=== PATIENT | female | born 1965 | race Caucasian/White ===

== ENCOUNTER 2018-01-29 19:29 | Observation (INO) | payer MEDICARE, MEDICAID ==
[~2018-01-29] VITALS: Ht 175.3 cm; Wt 83.5 kg
[2018-01-29] VITALS (7 sets, daily range): BP systolic 128–188; BP diastolic 74–117
[~2018-01-29 19:29] MED LIST: AMLO5TAB2 PO; ASP81TEC PO; CLON0.5T60 PO; CYAN100053 IJ; ESTR0.9T PO; FLUO40CA PO; HCT25T PO; IBP800T PO; IPRA4AER IH; LISI10TA PO; LISI20TA PO; LISI5TAB PO; MORP100T8 PO; MORP30CA16 PO; OMEP-10 PO; OXYC-12 PO; POTA10TA36 PO; TIZA2CAP7 PO; TIZA4CAP PO
--- OUTSIDE RECORDS SUMMARY | 2018-01-29 19:34 | XMS REPORT ---
Author Author ASHVIN ROBERTS eClinicalWorks Address Unknown Phone Unavailable Care Team Providers Care Market Relationship Manager Name Role Phone ASHVIN ROBERTS CP Unavailable Allergies No Known Allergies Problems Problem Type Condition Code Onset Dates Condition Status Problem Primary insomnia F51.01 Active Problem Chronic pain syndrome G89.4 Active Problem Anxiety F41.9 Active Problem Chronic prescription opiate use Z79.899 Active Problem Chronic prescription benzodiazepine use Z79.899 Active Problem Bilateral low back pain, with sciatica presence unspecified M54.5 Active Problem Major depressive disorder, recurrent episode, unspecified severity F33.9 Active Problem Atherosclerosis of [place] coronary artery of [place] heart without angina pectoris I25.10 Active Problem B12 deficiency E53.8 Active Problem Allergic rhinitis J30.9 Active Problem Other constipation K59.09 Active Problem Hyperlipidemia, unspecified hyperlipidemia E78.5 Active Problem Essential hypertension I10 Active Medications No Known Medications Vital Signs Date/Time: Jan 07, 2016 Blood Pressure Diastolic 78 mmHg Blood Pressure Systolic 122 mmHg Height 69 in Results No Known Results Summary Purpose eClinicalWorks Submission
--- OUTSIDE RECORDS SUMMARY | 2018-01-29 19:34 | XMS REPORT ---
Author Author ASHVIN ROBERTS eClinicalWorks Address Unknown Phone Unavailable Care Team Providers Care Manager Paid Name Role Phone ASHVIN ROBERTS CP Unavailable [...] unspecified severity F33.9 Active Problem Atherosclerosis of [place] coronary artery of [place] heart without angina pectoris I25.10 Active Problem B12 deficiency E53.8 Active Problem Allergic rhinitis J30.9 Active Assessment Essential hypertension I10 Active Problem Other constipation K59.09 Active Problem Hyperlipidemia, unspecified hyperlipidemia E78.5 Active Assessment B12 deficiency E53.8 Active Problem Essential hypertension I10 Active Medications No Known Medications Results No Known Results Summary Purpose eClinicalWorks Submission
--- OUTSIDE RECORDS SUMMARY | 2018-01-29 19:34 | XMS REPORT ---
Author Author ARMANDO ASHVIN Organization [facility] Address [address] [place] [address] Care Team Providers Care Plumbing Technician Name Role Phone ASHVIN ROBERTS Unavailable PROBLEMS Type Condition ICD9-CM Code [id number] Code Onset Dates Condition Status SNOMED Code Problem Major depressive disorder, recurrent episode, unspecified severity F33.9 Active 03927122 Problem B12 deficiency E53.8 Active 359318285 Problem Allergic rhinitis J30.9 Active 61597832 Problem Fibromyalgia M79.7 Active 05686305 Problem GERD (gastroesophageal reflux disease) K21.9 Active 928352214 Problem Chronic prescription opiate use Z79.899 Active 625527437 Problem Chronic prescription benzodiazepine use Z79.899 Active 384727537 Problem Chronic obstructive pulmonary disease, unspecified COPD type J44.9 Active 16275202 Problem Bilateral low back pain, with sciatica presence unspecified M54.5 Active 882014189 Problem Other constipation K59.09 Active 586841832023994 Problem Primary insomnia F51.01 Active 884581181 Problem Anxiety F41.9 Active 15238701 Problem Hyperlipidemia, unspecified hyperlipidemia E78.5 Active 98156513 Problem Chronic pain syndrome G89.4 Active 042123134 Problem Essential hypertension I10 Active 54327759 Problem Atherosclerosis of [place] coronary artery of [place] heart without angina pectoris I25.10 Active 3937741999946 ALLERGIES Unknown Allergies SOCIAL HISTORY No smoking Hx information available PLAN OF CARE VITAL SIGNS MEDICATIONS Medication Instructions Dosage Frequency Start Date End Date Duration Status Ibuprofen 400 MG Orally Three times a day 1 tablet as needed 8h Jul, 30 days Active RESULTS No Results PROCEDURES No Known procedures IMMUNIZATIONS No Known Immunizations
--- OUTSIDE RECORDS SUMMARY | 2018-01-29 19:34 | XMS REPORT ---
Author Author JAG BUCHANAN Organization [facility] Address [address] [place] [address] Care Team Providers Care Cream Dipper Name Role Phone JAG BUCHANAN Unavailable PROBLEMS Type Condition ICD9-CM Code [id number] Code Onset Dates Condition Status SNOMED Code Problem Bilateral low back pain, with sciatica presence unspecified M54.5 Active 005179136 Problem Allergic rhinitis J30.9 Active 51066171 Problem B12 deficiency E53.8 Active 919459948 Problem CKD (chronic kidney disease) stage 3, GFR 30-59 ml/min N18.3 Active 828761908 Problem Drug induced constipation K59.03 Active 534950027454477 Problem Fibromyalgia M79.7 Active 57749374 Problem GERD (gastroesophageal reflux disease) K21.9 Active 995139244 Problem Thrombocytosis D47.3 Active 2368013 Problem Chronic obstructive pulmonary disease, unspecified COPD type J44.9 Active 05111763 Problem Primary insomnia F51.01 Active 124680758 Problem Anxiety F41.9 Active 22366362 Problem Other constipation K59.09 Active 958886674129502 Problem Chronic pain syndrome G89.4 Active 674845687 Problem Major depressive disorder, recurrent episode, unspecified severity F33.9 Active 72524497 Problem Hyperlipidemia, unspecified hyperlipidemia E78.5 Active 53881262 Problem Essential hypertension I10 Active 66910496 Problem Chronic prescription benzodiazepine use Z79.899 Active 038587069 Problem Atherosclerosis of [place] coronary artery of [place] heart without angina pectoris I25.10 Active 8813109855099 Problem Chronic prescription opiate use Z79.899 Active 184659261 ALLERGIES No Information SOCIAL HISTORY Never Assessed PLAN OF CARE VITAL SIGNS MEDICATIONS Medication Instructions Dosage Frequency Start Date End Date Duration Status MS Contin 15 MG Orally every 12 hrs 1 tablet 12h Oct, 28 days Active MS Contin 30 MG Orally every 12 hrs 1 tablet 12h Oct, 28 days Active Clonazepam 0.5 MG Orally Once a day 1 tablet as needed for anxiety 24h Feb, 28 days Active Clonazepam 1 MG Orally Once a day at HS 1 tablet Sep, Active Oxycodone HCl 10 mg Orally every 6 hrs 1 tablet as needed 6h Jul, 28 days Active RESULTS No Results PROCEDURES No Known procedures IMMUNIZATIONS No Known Immunizations MEDICAL (GENERAL) HISTORY Type Description Date Medical History hypertension Medical History asthma Medical History Arthritis Medical History Hypoglycemia Medical History Heart Cath 11/05/2013 Medical History herniated disc--Seen by Dr. Troy Michelle pain specialist in [place], [place] Medical History Chronic low back pain Medical History depression Medical History anxiety Medical History Panic attacks Medical History Vitamin B 12 deficiency r/t gastric bypass Medical History Low back injections 11/2012, 06/2013 Surgical History tonsillectomy Surgical History gastric bypass--2003-in [place]. Unsure of Dr's name. No longer in practice. Band removed 2008 Surgical History hysterectomy-Total r/t fibroid tumors 2000 Surgical History orthopedic surgery--left lower leg fx, 3 screws placed s/p fall from skating 1980 Surgical History spinal fusion--L4-L5 07/2014 Surgical History carpal tunnel release--bilateral Surgical History Left wrist laceration from broken bowl 1975 Hospitalization History [facility] for chest pain 2000
--- OUTSIDE RECORDS SUMMARY | 2018-01-29 19:34 | XMS REPORT ---
Author Author ARMANDO ASHVIN Organization [facility] Address [address] [place] [address] Care Team Providers Care Machine Zipper Trimmer Name Role Phone ASHVIN ROBERTS Unavailable PROBLEMS Type Condition ICD9-CM Code [id number] Code Onset Dates Condition Status SNOMED Code Problem Bilateral low back pain, with sciatica presence unspecified M54.5 Active 128345060 Problem Allergic rhinitis J30.9 Active 74464320 Problem B12 deficiency E53.8 Active 383305172 Problem CKD (chronic kidney disease) stage 3, GFR 30-59 ml/min N18.3 Active 398462305 Problem Drug induced constipation K59.03 Active 568683598247123 Problem Fibromyalgia M79.7 Active 56057142 Problem GERD (gastroesophageal reflux disease) K21.9 Active 872131605 Problem Thrombocytosis D47.3 Active 3687454 Problem Chronic obstructive pulmonary disease, unspecified COPD type J44.9 Active 13853406 Problem Primary insomnia F51.01 Active 446790741 Problem Anxiety F41.9 Active 37259688 Problem Other constipation K59.09 Active 736622189335950 Problem Chronic pain syndrome G89.4 Active 001851007 Problem Major depressive disorder, recurrent episode, unspecified severity F33.9 Active 44990728 Problem Hyperlipidemia, unspecified hyperlipidemia E78.5 Active 20563633 Problem Essential hypertension I10 Active 21783811 Problem Chronic prescription benzodiazepine use Z79.899 Active 241256386 Problem Atherosclerosis of [place] coronary artery of [place] heart without angina pectoris I25.10 Active 3426527043259 Problem Chronic prescription opiate use Z79.899 Active 776304301 ALLERGIES Unknown Allergies SOCIAL HISTORY No smoking Hx information available PLAN OF CARE VITAL SIGNS MEDICATIONS Unknown Medications RESULTS No Results PROCEDURES No Known procedures IMMUNIZATIONS No Known Immunizations
--- OUTSIDE RECORDS SUMMARY | 2018-01-29 19:34 | XMS REPORT ---
Author Author ASHVIN ROBERTS [facility] eClinicalWorks Address Unknown Phone Unavailable Care Team Providers Care Special Police Officer Name Role Phone ASHVIN ROBERTS CP Unavailable Allergies No Known Allergies Problems Problem Type Condition Code Onset Dates Condition Status Problem Atherosclerosis of [place] coronary artery of [place] heart without angina pectoris I25.10 Active Problem Allergic rhinitis J30.9 Active Problem Major depressive disorder, recurrent episode, unspecified severity F33.9 Active Problem GERD (gastroesophageal reflux disease) K21.9 Active Problem Chronic obstructive pulmonary disease, unspecified COPD type J44.9 Active Problem Fibromyalgia M79.7 Active Problem Chronic prescription benzodiazepine use Z79.899 Active Problem B12 deficiency E53.8 Active Problem Bilateral low back pain, with sciatica presence unspecified M54.5 Active Problem Chronic prescription opiate use Z79.899 Active Assessment Open wound of right ear, unspecified open wound type, initial encounter S01.301A Active Problem Essential hypertension I10 Active Problem Primary insomnia F51.01 Active Problem Other constipation K59.09 Active Problem Anxiety F41.9 Active Problem Hyperlipidemia, unspecified hyperlipidemia E78.5 Active Problem Chronic pain syndrome G89.4 Active Medications No Known Medications Results No Known Results Summary Purpose eClinicalWorks Submission
--- OUTSIDE RECORDS SUMMARY | 2018-01-29 19:34 | XMS REPORT ---
Author Author ARMANDO ASHVIN Organization [facility] Address [address] [place] [address] Care Team Providers Care Brush Holder Inspector Name Role Phone ASHVIN ROBERTS Unavailable PROBLEMS Type Condition ICD9-CM Code [id number] Code Onset Dates Condition Status SNOMED Code Problem Bilateral low back pain, with sciatica presence unspecified M54.5 Active 436277252 Problem Allergic rhinitis J30.9 Active 01339645 Problem B12 deficiency E53.8 Active 261265969 Problem CKD (chronic kidney disease) stage 3, GFR 30-59 ml/min N18.3 Active 617182226 Problem Drug induced constipation K59.03 Active 179578641113396 Problem Fibromyalgia M79.7 Active 14124215 Problem GERD (gastroesophageal reflux disease) K21.9 Active 930913337 Problem Thrombocytosis D47.3 Active 6993419 Problem Chronic obstructive pulmonary disease, unspecified COPD type J44.9 Active 20917526 Problem Primary insomnia F51.01 Active 932114129 Problem Anxiety F41.9 Active 30800333 Problem Other constipation K59.09 Active 314551626977989 Problem Chronic pain syndrome G89.4 Active 257198508 Problem Major depressive disorder, recurrent episode, unspecified severity F33.9 Active 89882517 Problem Hyperlipidemia, unspecified hyperlipidemia E78.5 Active 30516598 Problem Essential hypertension I10 Active 37655661 Problem Chronic prescription benzodiazepine use Z79.899 Active 069700841 Problem Atherosclerosis of [place] coronary artery of [place] heart without angina pectoris I25.10 Active 6513009285229 Problem Chronic prescription opiate use Z79.899 Active 711732758 ALLERGIES Substance Reaction Event Type Date Status Lyrica throat swelling Drug Allergy Jan, Active Flagyl throat swelling Drug Allergy Jan, Active Lisinopril 20 Mg Tablet Headache Non Drug Allergy Jan, Active SOCIAL HISTORY Never Assessed PLAN OF CARE Activity Details Follow Up 3 Months Reason:Pain VITAL SIGNS Height 69 in 2017-02-02 Weight 192.1 lbs 2017-02-02 Temperature 97.7 degrees Fahrenheit 2017-02-02 Heart Rate 66 bpm 2017-02-02 Respiratory Rate 18 2017-02-02 BMI 28.37 kg/m2 2017-02-02 Blood pressure systolic 127 mmHg 2017-02-02 Blood pressure diastolic 84 mmHg 2017-02-02 MEDICATIONS Medication Instructions Dosage Frequency Start Date End Date Duration Status Multivitamin 1 Tablet 1 time per day Aug, Active Lisinopril-Hydrochlorothiazide 20-25 MG Orally Once a day 1 tablet 24h 90 days Active Amitriptyline HCl 25 MG Orally Once a day 1 tablet at bedtime 24h 90 days Active Clonazepam 0.5 MG Orally Once a day 1 tablet as needed for anxiety 24h Feb, 28 days Active Aspirin 81 mg take 1 tablet (81 mg) by oral route once daily Nov, Active Cyanocobalamin 1000 MCG/ML INJECT 1 ML SUBCUTANEOUSLY Active MS Contin 30 MG Orally every 12 hrs 1 tablet 12h Jan, 28 days Active Prozac 10 mg Orally Once a day 1 capsule in the morning 24h 90 days Active Omeprazole 20 mg Orally Once a day 1 capsule 24h 30 Active Clonazepam 1 MG Orally Once a day at HS 1 tablet Sep, Active MS Contin 15 MG Orally every 12 hrs 1 tablet 12h Jan, 28 days Active Nitroglycerin 0.4 mg 1 tablet by Sublingual route every 5 PRN chest pain ; NTE 3 tabs in 15 min Jun, Active Claritin 10 mg Orally Once a day 1 tablet 24h Feb, Feb, 30 day(s) Active Singulair 10 mg Orally Once a day 1 tablet in the evening 24h May, 90 days Active Oxycodone HCl 10 mg Orally every 6 hrs 1 tablet as needed 6h 10 Jan, 2017 28 days Active RESULTS Name Result Date Reference Range Xray : Spine, Thoracic 2 views (IN HOUSE) 2017-02-02 Xray : Spine, Cervical (IN HOUSE) 2017-02-02 PROCEDURES Procedure Date Ordered Result Body Site JOINT INJECTION-LARGE JOINT 2017-02-02 N/A X-RAY EXAM OF NECK SPINE February 02, 2017 THER/PROPH/DIAG INJ, SC/IM February 02, 2017 KENALOG 40 MG/ML (PER 10 MG) February 02, 2017 DRAIN/INJECT, JOINT/BURSA February 02, 2017 X-RAY EXAM OF THORACIC SPINE February 02, 2017 [facility] VISIT ESTABLISHED PATIENT February 02, 2017 IMMUNIZATIONS Vaccine Route Administration Date Status KENALOG 40 MG/ML (PER 10 MG) OTH Other/Miscellaneous February 02, 2017 Administered MEDICAL (GENERAL) HISTORY Type Description Date Medical History hypertension Medical History asthma Medical History Arthritis Medical History Hypoglycemia Medical History Heart Cath 11/05/2013 Medical History herniated disc--Seen by Dr. Troy Michelle pain specialist in [place], [place] Medical History Chronic low back pain Medical History depression Medical History anxiety Medical History Panic attacks Medical History Vitamin B 12 deficiency r/t gastric bypass Medical History Low back injections 11/2012, 06/2013 Surgical History tonsillectomy Surgical History gastric bypass--2003-in [place]. Unsure of Dr's name. No longer in [...]
--- OUTSIDE RECORDS SUMMARY | 2018-01-29 19:35 | XMS REPORT ---
Author Author ASHVIN ROBERTS eClinicalWorks Address Unknown Phone Unavailable Care Team Providers Care Benefits Specialist Name Role Phone ASHVIN ROBERTS CP Unavailable [...] unspecified severity F33.9 Active Problem Atherosclerosis of [place] coronary artery of [place] heart without angina pectoris I25.10 Active Problem B12 deficiency E53.8 Active Problem Allergic rhinitis J30.9 Active Problem Other constipation K59.09 Active Problem Hyperlipidemia, unspecified hyperlipidemia E78.5 Active Problem Essential hypertension I10 Active Medications Medication Code System Code Instructions Start Date End Date Status Dosage Clonazepam [facility] [address]-58 1 MG Orally Oct 20, 2014 take 1 tablet by Oral route 1 time per day PRN Anxiety MS Contin [facility] [address]-00 15 MG Orally Once a day in the morning with 30 mg tab Dec 09, 2015 1 tablet Percocet [facility] [address]-07 10-325 MG February 09, 2015 take 1 tablet by Oral route as needed every 4 hours PRN MS Contin [facility] [address]-93 30 MG Orally every 12 hrs Dec 09, 2015 1 tablet Results No Known Results Summary Purpose eClinicalWorks Submission
--- OUTSIDE RECORDS SUMMARY | 2018-01-29 19:35 | XMS REPORT ---
Author Author ASHVIN ROBERTS eClinicalWorks Address Unknown Phone Unavailable Care Team Providers Care Caddie Name Role Phone ASHVIN ROBERTS CP Unavailable Allergies, Adverse Reactions, Alerts Substance Reaction Event Type Lyrica throat swelling Drug Allergy Flagyl throat swelling Drug Allergy Lisinopril 20 Mg Tablet Headache Non Drug Allergy Problems Problem Type Condition Code Onset Dates Condition Status Assessment Hyperlipidemia, unspecified hyperlipidemia E78.5 Active Problem Other constipation K59.09 Active Assessment Other constipation K59.09 Active Problem Atherosclerosis of [place] coronary artery of [place] heart without angina pectoris I25.10 Active Problem Chronic pain syndrome G89.4 Active Problem Major depressive disorder, recurrent episode, unspecified severity F33.9 Active Problem Essential hypertension I10 Active Problem Hyperlipidemia, unspecified hyperlipidemia E78.5 Active Problem Anxiety F41.9 Active Problem Primary insomnia F51.01 Active Assessment Chronic pain syndrome G89.4 Active Assessment Anxiety F41.9 Active Assessment Acute cystitis without hematuria N30.00 Active Assessment Primary insomnia F51.01 Active Assessment Right shoulder pain M25.511 Active Assessment Essential hypertension I10 Active Medications Medication Code System Code Instructions Start Date End Date Status Dosage Lisinopril-Hydrochlorothiazide [facility] [address]-56 20-25 MG Once a day Dec 11, 2014 take 1 tablet by Oral route 1 time per day Take in AM Omeprazole [facility] [address]-39 20 MG Orally 2 times a day before meals June 21, 2015 1 capsule Macrobid [facility] [address]-33 100 MG Orally every 12 hrs Sep 10, 2015Aug 1 capsule with food Combivent Respimat [facility] 16351929716 20-100 MCG/ACT 1 PUFF BY INHALATION, MAY TAKE ADDITIONAL PUFFS NEEDED FOUR TIMES PER DAY Cyanocobalamin [facility] [address]-83 1000 MCG/ML Injection one x per month May 07, 2015 1 ml Percocet [facility] [address]-98 10-325 MG February 09, 2015 take 1 tablet by Oral route as needed every 4 hours PRN Multivitamin [facility] [address]88 Sep 23, 2013 1 Tablet 1 time per day Aspirin [facility] [address]-06 81 mg Nov 28, 2013 take 1 tablet (81 mg ) by oral route once daily Amitiza [facility] [address]-53 8 MCG Orally Twice a day Sep 10, 2015 Jan 08, 2016 2 capsules with food HM Senna-S [facility] [address]-15 8.6-50 MG Orally 2 times a day June 15, 2015 1 tablet Ipratropium-Albuterol [facility] [address]-38 20-100 mcg/actuation Jul 06, 2014 inhale 1 puff by Inhalation route ; may take additional puffs as needed 4 times per day Nitroglycerin [facility] [address]-19 0.4 mg 2014 1 tablet by Sublingual route every 5 PRN chest pain; NTE 3 tabs in 15 min Clonazepam [facility] [address]-10 1 MG Orally Oct 20, 2014 take 1 tablet by Oral route 1 time per day PRN Anxiety Amlodipine Besylate [facility] [address]-63 5 MG Orally 2 times a day May 07, 2015 1 tablet morphine [facility] 0 30 mg February 09, 2015 take 1 tablet (30 mg) by oral route every 12 hours Procedures Procedure Coding System Code Date Office Visit, Est Pt., Level 4 CPT-4 10719 Sep 10, 2015 URINALYSIS, AUTO, W/O SCOPE CPT-4 78104 Sep 10, 2015 [facility] VISIT ESTABLISHED PATIENT CPT-4 G0467 Sep 10, 2015 [facility] NOBLL Sep 10, 2015 Vital Signs Date/Time: Sep 10, 2015 Temperature 98.0 F Weight 247.7 lbs Height 69 in BMI 36.57 Index Blood Pressure Diastolic 82 mmHg Blood Pressure Systolic 146 mmHg Cardiac Monitoring Heart Rate 78 bpm Results No Known Results Summary Purpose eClinicalWorks Submission
--- OUTSIDE RECORDS SUMMARY | 2018-01-29 19:35 | XMS REPORT ---
Author Author ARMANDO ASHVIN Organization [facility] Address [address] [place] [address] Care Team Providers Care Hydropress Operator Name Role Phone ASHVIN ROBERTS Unavailable PROBLEMS Type Condition ICD9-CM Code HIH02-KG Code Onset Dates Condition Status SNOMED Code Problem Bilateral low back pain, with sciatica presence unspecified M54.5 Active 136550321 Problem Allergic rhinitis J30.9 Active 60831238 Problem B12 deficiency E53.8 Active 501022518 Problem CKD (chronic kidney disease) stage 3, GFR 30-59 ml/min N18.3 Active 452096508 Problem Drug induced constipation K59.03 Active 932630836634206 Problem Fibromyalgia M79.7 Active 11814376 Problem GERD (gastroesophageal reflux disease) K21.9 Active 988471714 Problem Thrombocytosis D47.3 Active 6358934 Problem Chronic obstructive pulmonary disease, unspecified COPD type J44.9 Active 94621982 Problem Primary insomnia F51.01 Active 253240723 Problem Anxiety F41.9 Active 39313920 Problem Other constipation K59.09 Active 862627077108602 Problem Chronic pain syndrome G89.4 Active 956673372 Problem Major depressive disorder, recurrent episode, unspecified severity F33.9 Active 79647033 Problem Hyperlipidemia, unspecified hyperlipidemia E78.5 Active 80727282 Problem Essential hypertension I10 Active 74706488 Problem Chronic prescription benzodiazepine use Z79.899 Active 008135276 Problem Atherosclerosis of [place] coronary artery of [place] heart without angina pectoris I25.10 Active 1796368838223 Problem Chronic prescription opiate use Z79.899 Active 114484885 ALLERGIES No Information SOCIAL HISTORY Never Assessed PLAN OF CARE VITAL SIGNS MEDICATIONS Medication Instructions Dosage Frequency Start Date End Date Duration Status Clonazepam 1 MG Orally Once a day at HS 1 tablet Sep, Active MS Contin 15 MG Orally every 12 hrs 1 tablet 12h 10 Jan, 2017 28 days Active Clonazepam 0.5 MG Orally Once a day 1 tablet as needed for anxiety 24h Feb, 28 days Active MS Contin 30 MG Orally every 12 hrs 1 tablet 12h 10 Jan, 2017 28 days Active Oxycodone HCl 10 mg Orally every 6 hrs 1 tablet as needed 6h Jan, 28 days Active RESULTS No Results PROCEDURES No Known procedures IMMUNIZATIONS No Known Immunizations MEDICAL (GENERAL) HISTORY Type Description Date Medical History hypertension Medical History asthma Medical History Arthritis Medical History Hypoglycemia Medical History Heart Cath 11/05/2013 Medical History herniated disc--Seen by Dr. Troy Michelle pain specialist in [place], [place] Medical History Chronic low back pain Medical History depression Medical History anxiety Medical History Panic attacks Medical History Vitamin B 12 deficiency r/t gastric bypass Medical History Low back injections 11/2012, 06/2013 Surgical History tonsillectomy Surgical History gastric bypass--2003-in [place]. Unsure of Dr's name. No longer in [...]
--- OUTSIDE RECORDS SUMMARY | 2018-01-29 19:35 | XMS REPORT ---
Author Author ASHVIN ROBERTS [facility] eClinicalWorks Address Unknown Phone Unavailable Care Team Providers Care Drafter Civil (Cad) Name Role Phone ASHVIN ROBERTS CP Unavailable Allergies No Known Allergies Problems Problem Type Condition Code Onset Dates Condition Status Problem Atherosclerosis of [place] coronary artery of [place] heart without angina pectoris I25.10 Active Problem [...] Chronic prescription opiate use Z79.899 Active Problem Essential hypertension I10 Active Problem Primary insomnia F51.01 Active Problem Other constipation K59.09 Active Problem Anxiety F41.9 Active Problem Hyperlipidemia, unspecified hyperlipidemia E78.5 Active Problem Chronic pain syndrome G89.4 Active Medications Medication Code System Code Instructions Start Date End Date Status Dosage Percocet [facility] [address]-39 10-325 MG February 09, 2015 take 1 tablet by Oral route as needed every 4 hours PRN Clonazepam [facility] [address]-18 0.5 MG Orally Once a day March 21, 2016 1 tablet as needed for anxiety MS Contin [facility] [address]-28 30 MG Orally every 12 hrs Dec 09, 2015 1 tablet MS Contin [facility] [address]-78 15 MG Orally Once a day in the morning with 30 mg tab Dec 09, 2015 1 tablet Clonazepam [facility] [address]-03 1 MG Orally Once a day at HS Oct 20, 2014 1 tablet Results No Known Results Summary Purpose eClinicalWorks Submission
--- OUTSIDE RECORDS SUMMARY | 2018-01-29 19:35 | XMS REPORT ---
Author Author ASHVIN ROBERTS [employer]ClinicalWorks Address Unknown Phone Unavailable Care Team Providers Care Testing Specialist Name Role Phone ASHVIN ROBERTS CP Unavailable Allergies No Known Allergies Problems Problem Type Condition Code Onset Dates Condition Status Problem Atherosclerosis of [place] coronary artery of [place] heart without angina pectoris I25.10 Active Problem [...] Chronic prescription opiate use Z79.899 Active Assessment B12 deficiency E53.8 Active Problem Essential hypertension I10 Active Problem Primary insomnia F51.01 Active Problem Other constipation K59.09 Active Problem Anxiety F41.9 Active Problem Hyperlipidemia, unspecified hyperlipidemia E78.5 Active Problem Chronic pain syndrome G89.4 Active Medications No Known Medications Procedures Procedure Coding System Code Date VENIPUNCT, ROUTINE* CPT-4 00226 June 23, 2016 LAB NOT BILLED BY [facility] CPT-4 NOBLL June 23, 2016 Results No Known Results Summary Purpose eClinicalWorks Submission
--- OUTSIDE RECORDS SUMMARY | 2018-01-29 19:35 | XMS REPORT ---
Author Author ARMANDO ASHVIN Organization [facility] Address [address] [place] [address] Care Team Providers Care Laborer Drying Department Name Role Phone ASHVIN ROBERTS Unavailable PROBLEMS Type Condition ICD9-CM Code [id number] Code Onset Dates Condition Status SNOMED Code Problem Bilateral low back pain, with sciatica presence unspecified M54.5 Active 819218192 Problem Allergic rhinitis J30.9 Active 17737055 Problem B12 deficiency E53.8 Active 550481144 Problem CKD (chronic kidney disease) stage 3, GFR 30-59 ml/min N18.3 Active 049261146 Problem Drug induced constipation K59.03 Active 476251718209753 Problem Fibromyalgia M79.7 Active 82106091 Problem GERD (gastroesophageal reflux disease) K21.9 Active 886397186 Problem Thrombocytosis D47.3 Active 3049421 Problem Chronic obstructive pulmonary disease, unspecified COPD type J44.9 Active 91546220 Problem Primary insomnia F51.01 Active 513332085 Problem Anxiety F41.9 Active 83099614 Problem Other constipation K59.09 Active 376443636504220 Problem Chronic pain syndrome G89.4 Active 186055511 Problem Major depressive disorder, recurrent episode, unspecified severity F33.9 Active 96692699 Problem Hyperlipidemia, unspecified hyperlipidemia E78.5 Active 77734687 Problem Essential hypertension I10 Active 05026875 Problem Chronic prescription benzodiazepine use Z79.899 Active 472490168 Problem Atherosclerosis of [place] coronary artery of [place] heart without angina pectoris I25.10 Active 8949930322120 Problem Chronic prescription opiate use Z79.899 Active 585375149 ALLERGIES No Information SOCIAL HISTORY Never Assessed PLAN OF CARE VITAL SIGNS MEDICATIONS Unknown Medications RESULTS Name Result Date Reference Range [facility] 2017-01-16 Glucose, Serum 93 65-99 BUN 19 6-24 Creatinine, Serum 1.38 0.57-1.00 eGFR If NonAfricn Am 45 >59 eGFR If Africn Am 51 >59 BUN/Creatinine Ratio 14 9-23 Sodium, Serum 148 134-144 Potassium, Serum 4.2 3.5-5.2 Chloride, Serum 104 96-106 Carbon Dioxide, Total 30 18-29 Calcium, Serum 9.5 8.7-10.2 PROCEDURES Procedure Date Ordered Result Body Site LAB NOT BILLED BY [facility] Jan 16, 2017 VENIPUNCT, ROUTINE* Jan 16, 2017 IMMUNIZATIONS No Known Immunizations MEDICAL (GENERAL) HISTORY Type Description Date Medical History hypertension Medical History asthma Medical History Arthritis Medical History Hypoglycemia Medical History Heart Cath 11/05/2013 Medical History herniated disc--Seen by Dr. Troy Michelle pain specialist in [place], [place] Medical History Chronic low back pain Medical History depression Medical History anxiety Medical History Panic attacks Medical History Vitamin B 12 deficiency r/t gastric bypass Medical History Low back injections 11/2012, 06/2013 Surgical History tonsillectomy Surgical History gastric bypass--2003-in [place]. Unsure of Dr's name. No longer in [...]
--- OUTSIDE RECORDS SUMMARY | 2018-01-29 19:35 | XMS REPORT ---
Author Author ASHVIN ROBERTS [facility] eClinicalWorks Address Unknown Phone Unavailable Care Team Providers Care School Principal Name Role Phone ASHVIN ROBERTS CP Unavailable Allergies No Known Allergies Problems Problem Type Condition Code Onset Dates Condition Status Problem Other constipation K59.09 Active Problem Atherosclerosis of [place] coronary artery of [place] heart without angina pectoris I25.10 Active Problem Chronic pain syndrome G89.4 Active Problem Major depressive disorder, recurrent episode, unspecified severity F33.9 Active Problem Essential hypertension I10 Active Problem Hyperlipidemia, unspecified hyperlipidemia E78.5 Active Problem Anxiety F41.9 Active Problem Primary insomnia F51.01 Active Medications Medication Code System Code Instructions Start Date End Date Status Dosage Omeprazole [facility] [address]-05 20 MG Orally 2 times a day before meals June 21, 2015 1 capsule Results No Known Results Summary Purpose eClinicalWorks Submission
--- OUTSIDE RECORDS SUMMARY | 2018-01-29 19:35 | XMS REPORT ---
Author Author ASHVIN ROBERTS [employer]ClinicalWorks Address Unknown Phone Unavailable Care Team Providers Care Volleyball Referee Name Role Phone ASHVIN ROBERTS CP Unavailable Allergies No Known Allergies Problems Problem Type Condition Code Onset Dates Condition Status Problem Atherosclerosis of [place] coronary artery of [place] heart without angina pectoris I25.10 Active Problem [...] Instructions Start Date End Date Status Dosage MS Contin [facility] [address]-52 15 MG Orally every 12 hrs Dec 09, 2015 1 tablet MS Contin [facility] [address]-71 30 MG Orally every 12 hrs Dec 09, 2015 1 tablet Oxycodone HCl [facility] [address]-04 10 mg Orally every 6 hrs Aug 18, 2016 1 tablet as needed Clonazepam [facility] [address]-21 0.5 MG Orally Once a day March 21, 2016 1 tablet as needed for anxiety Clonazepam [facility] [address]-71 1 MG Orally Once a day at HS Oct 20, 2014 1 tablet Results No Known Results Summary Purpose eClinicalWorks Submission
--- OUTSIDE RECORDS SUMMARY | 2018-01-29 19:35 | XMS REPORT ---
Author Author ARMANDO ASHVIN Organization [facility] Address [address] [place] [address] Care Team Providers Care Television Agent Name Role Phone NYASIA ROBERTSY Unavailable PROBLEMS Type Condition ICD9-CM Code [id number] Code Onset Dates Condition Status SNOMED Code Problem Bilateral low back pain, with sciatica presence unspecified M54.5 Active 205345345 Problem Allergic rhinitis J30.9 Active 78139967 Problem B12 deficiency E53.8 Active 184242984 Problem CKD (chronic kidney disease) stage 3, GFR 30-59 ml/min N18.3 Active 149525323 Problem Drug induced constipation K59.03 Active 866543665164295 Problem Fibromyalgia M79.7 Active 22906017 Problem GERD (gastroesophageal reflux disease) K21.9 Active 460546893 Problem Thrombocytosis D47.3 Active 3952519 Problem Chronic obstructive pulmonary disease, unspecified COPD type J44.9 Active 15316271 Problem Primary insomnia F51.01 Active 171867442 Problem Anxiety F41.9 Active 46133243 Problem Other constipation K59.09 Active 722438644167155 Problem Chronic pain syndrome G89.4 Active 752934397 Problem Major depressive disorder, recurrent episode, unspecified severity F33.9 Active 43531036 Problem Hyperlipidemia, unspecified hyperlipidemia E78.5 Active 12394019 Problem Essential hypertension I10 Active 95227524 Problem Chronic prescription benzodiazepine use Z79.899 Active 397536917 Problem Atherosclerosis of [place] coronary artery of [place] heart without angina pectoris I25.10 Active 7090963630525 Problem Chronic prescription opiate use Z79.899 Active 125689538 ALLERGIES No Information SOCIAL HISTORY Never Assessed PLAN OF CARE VITAL SIGNS MEDICATIONS Unknown Medications RESULTS No Results PROCEDURES No Known procedures IMMUNIZATIONS No Known Immunizations MEDICAL (GENERAL) HISTORY Type Description Date Medical History hypertension Medical History asthma Medical History Arthritis Medical History Hypoglycemia Medical History Heart Cath 11/05/2013 Medical History herniated disc--Seen by Dr. Troy Michelle pain specialist in [place], [place] Medical History Chronic low back pain Medical History depression Medical History anxiety Medical History Panic attacks Medical History Vitamin B 12 deficiency r/t gastric bypass Medical History Low back injections 11/2012, 06/2013 Surgical History tonsillectomy Surgical History gastric bypass--2003-in [place]. Unsure of Dr's name. No longer in [...]
--- OUTSIDE RECORDS SUMMARY | 2018-01-29 19:36 | XMS REPORT ---
Author Author ARMANDO ASHVIN Organization [facility] Address [address] [place] [address] Care Team Providers Care Rivet Heater Name Role Phone NYASIA ROBERTSY Unavailable PROBLEMS Type Condition ICD9-CM Code [id number] Code Onset Dates Condition Status SNOMED Code Problem Bilateral low back pain, with sciatica presence unspecified M54.5 Active 480764975 Problem Allergic rhinitis J30.9 Active 13539322 Problem B12 deficiency E53.8 Active 572323538 Problem CKD (chronic kidney disease) stage 3, GFR 30-59 ml/min N18.3 Active 888831358 Problem Drug induced constipation K59.03 Active 337041582388645 Problem Fibromyalgia M79.7 Active 31274138 Problem GERD (gastroesophageal reflux disease) K21.9 Active 867039192 Problem Thrombocytosis D47.3 Active 5185777 Problem Chronic obstructive pulmonary disease, unspecified COPD type J44.9 Active 75347778 Problem Primary insomnia F51.01 Active 556688461 Problem Anxiety F41.9 Active 22618661 Problem Other constipation K59.09 Active 425608146928302 Problem Chronic pain syndrome G89.4 Active 231377137 Problem Major depressive disorder, recurrent episode, unspecified severity F33.9 Active 51627652 Problem Hyperlipidemia, unspecified hyperlipidemia E78.5 Active 59081699 Problem Essential hypertension I10 Active 08854115 Problem Chronic prescription benzodiazepine use Z79.899 Active 444072471 Problem Atherosclerosis of [place] coronary artery of [place] heart without angina pectoris I25.10 Active 7191776720196 Problem Chronic prescription opiate use Z79.899 Active 483058054 ALLERGIES No Information SOCIAL HISTORY Never Assessed PLAN OF CARE VITAL SIGNS MEDICATIONS No Known Medications RESULTS No Results PROCEDURES No Known procedures IMMUNIZATIONS No Known Immunizations MEDICAL (GENERAL) HISTORY Type Description Date Medical History hypertension Medical History asthma Medical History Arthritis Medical History Hypoglycemia Medical History Heart Cath 11/05/2013 Medical History herniated disc--Seen by Dr. Troy Michelle pain specialist in [place], [place] Medical History Chronic low back pain Medical History depression Medical History anxiety Medical History Panic attacks Medical History Vitamin B 12 deficiency r/t gastric bypass Medical History Low back injections 11/2012, 06/2013 Surgical History tonsillectomy Surgical History gastric bypass--2004-in [place]. Unsure of Dr's name. No longer in [...]
--- OUTSIDE RECORDS SUMMARY | 2018-01-29 19:36 | XMS REPORT ---
Author Author ASHVIN ROBERTS [facility] eClinicalWorks Address Unknown Phone Unavailable Care Team Providers Care Program Development Specialist Name Role Phone ASHVIN ROBERTS CP Unavailable Allergies No Known Allergies Problems Problem Type Condition Code Onset Dates Condition Status Problem Atherosclerosis of [place] coronary artery of [place] heart without angina pectoris I25.10 Active Problem [...] Start Date End Date Status Dosage Percocet [facility] [address]-86 10-325 MG February 09, 2015 take 1 tablet by Oral route as needed every 4 hours PRN Clonazepam [facility] [address]-16 0.5 MG Orally Once a day March 21, 2016 1 tablet as needed for anxiety MS Contin [facility] [address]-36 30 MG Orally every 12 hrs Dec 09, 2015 1 tablet MS Contin [facility] [address]-92 15 MG Orally Once a day in the morning with 30 mg tab Dec 09, 2015 1 tablet Clonazepam [facility] [address]-07 1 MG Orally Once a day at HS Oct 20, 2014 1 tablet Results No Known Results Summary Purpose eClinicalWorks Submission
--- OUTSIDE RECORDS SUMMARY | 2018-01-29 19:36 | XMS REPORT ---
Author Author MIKAELA DELGADILLO [facility] eClinicalWorks Address Unknown Phone Unavailable Care Team Providers Care Tower Technician Name Role Phone MIKAELA DELGADILLO CP Unavailable Allergies No Known Allergies Problems Problem Type Condition ICD-9 Code Onset Dates Condition Status Problem Other chronic pain 338.29 Active Problem Hypertension 401.9 Active Problem Hyperlipidemia 272.4 Active Problem Anxiety 300.00 Active Problem Coronary atherosclerosis of unspecified type of vessel, kiana or graft 414.00 Active Problem Nondependent tobacco use disorder 305.1 Active Problem Constipation due to opioid therapy 564.09 Active Problem Depressive disorder, not elsewhere classified 311 Active Medications Medication Code System Code Instructions Start Date End Date Status Dosage morphine NDC 0 30 mg February 09, 2015 take 1 tablet (30 mg) by oral route every 12 hours Clonazepam [facility] [address]-94 1 MG Orally Oct 20, 2014 take 1 tablet by Oral route 1 time per day PRN Anxiety Percocet [facility] [address]-20 10-325 MG February 09, 2015 take 1 tablet by Oral route as needed every 4 hours PRN Results No Known Results Summary Purpose eClinicalWorks Submission
--- OUTSIDE RECORDS SUMMARY | 2018-01-29 19:36 | XMS REPORT ---
Author Author ASHVIN ROBERTS [facility] eClinicalWorks Address Unknown Phone Unavailable Care Team Providers Care Needle Maker Name Role Phone ASHVIN ROBERTS CP Unavailable Allergies No Known Allergies Problems Problem Type Condition Code Onset Dates Condition Status Problem Other constipation K59.09 Active Problem Atherosclerosis of [place] coronary artery of [place] heart without angina pectoris I25.10 Active Problem Chronic pain syndrome G89.4 Active Problem Major depressive disorder, recurrent episode, unspecified severity F33.9 Active Problem Essential hypertension I10 Active Problem Hyperlipidemia, unspecified hyperlipidemia E78.5 Active Problem Anxiety F41.9 Active Problem Primary insomnia F51.01 Active Medications Medication Code System Code Instructions Start Date End Date Status Dosage Amitiza [facility] [address]-17 8 MCG Orally Twice a day Sep 10, 2015 1 capsule with food Results No Known Results Summary Purpose eClinicalWorks Submission
--- OUTSIDE RECORDS SUMMARY | 2018-01-29 19:36 | XMS REPORT ---
Author Author ARMANDO ASHVIN Organization [facility] Address [address] [place] [address] Care Team Providers Care Supervisor Meter Shop Name Role Phone ASHVIN ROBERTS Unavailable PROBLEMS Type Condition ICD9-CM Code [id number] Code Onset Dates Condition Status SNOMED Code Problem Major depressive disorder, recurrent episode, unspecified severity F33.9 Active 27536407 Problem B12 deficiency E53.8 Active 408721685 Problem Allergic rhinitis J30.9 Active 16071351 Problem Fibromyalgia M79.7 Active 86714934 Problem GERD (gastroesophageal reflux disease) K21.9 Active 476824639 Problem Chronic prescription opiate use Z79.899 Active 132595561 Problem Chronic prescription benzodiazepine use Z79.899 Active 642866497 Problem Chronic obstructive pulmonary disease, unspecified COPD type J44.9 Active 38864456 Problem Bilateral low back pain, with sciatica presence unspecified M54.5 Active 428383326 Problem Other constipation K59.09 Active 427151104396481 Problem Primary insomnia F51.01 Active 901367845 Problem Anxiety F41.9 Active 07541019 Problem Hyperlipidemia, unspecified hyperlipidemia E78.5 Active 80519390 Problem Chronic pain syndrome G89.4 Active 620332428 Problem Essential hypertension I10 Active 20255101 Problem Atherosclerosis of [place] coronary artery of [place] heart without angina pectoris I25.10 Active 2119942323761 ALLERGIES Unknown Allergies SOCIAL HISTORY No smoking Hx information available PLAN OF CARE VITAL SIGNS MEDICATIONS Medication Instructions Dosage Frequency Start Date End Date Duration Status Cyanocobalamin 1000 MCG/ML INJECT 1 ML SUBCUTANEOUSLY Active RESULTS No Results PROCEDURES No Known procedures IMMUNIZATIONS No Known Immunizations
--- OUTSIDE RECORDS SUMMARY | 2018-01-29 19:36 | XMS REPORT ---
Author Author ARMANDO ASHVIN Organization [facility] Address [address] [place] [address] Care Team Providers Care Assistant Foreman Name Role Phone ASHVIN ROBERTS Unavailable PROBLEMS Type Condition ICD9-CM Code [id number] Code Onset Dates Condition Status SNOMED Code Problem Major depressive disorder, recurrent episode, unspecified severity F33.9 Active 36455987 Problem B12 deficiency E53.8 Active 060455202 Problem Allergic rhinitis J30.9 Active 67760584 Problem Fibromyalgia M79.7 Active 41283474 Problem GERD (gastroesophageal reflux disease) K21.9 Active 948166792 Problem Chronic prescription opiate use Z79.899 Active 713304083 Problem Chronic prescription benzodiazepine use Z79.899 Active 052501308 Problem Chronic obstructive pulmonary disease, unspecified COPD type J44.9 Active 58735637 Problem Bilateral low back pain, with sciatica presence unspecified M54.5 Active 164922972 Assessment Essential hypertension I10 Jul, Active 84142776 Problem Other constipation K59.09 Active 842095861938777 Assessment Screening for breast cancer Z12.39 Jul, Active 438280754 Problem Primary insomnia F51.01 Active 389706009 Problem Anxiety F41.9 Active 75416820 Problem Hyperlipidemia, unspecified hyperlipidemia E78.5 Active 49606929 Problem Chronic pain syndrome G89.4 Active 671294808 Problem Essential hypertension I10 Active 88569164 Problem Atherosclerosis of [place] coronary artery of [place] heart without angina pectoris I25.10 Active 7796777574332 ALLERGIES Substance Reaction Event Type Date Status Lyrica throat swelling Drug Allergy Jul, Active Flagyl throat swelling Drug Allergy Jul, Active Lisinopril 20 Mg Tablet Headache Non Drug Allergy Jul, Active SOCIAL HISTORY No smoking Hx information available PLAN OF CARE VITAL SIGNS Height 69 in 2016-08-18 Weight 197 lbs 2016-08-18 Heart Rate 66 bpm 2016-08-18 Respiratory Rate 16 2016-08-18 BMI 29.09 kg/m2 2016-08-18 Blood pressure systolic 104 mmHg 2016-08-18 Blood pressure diastolic 64 mmHg 2016-08-18 MEDICATIONS Medication Instructions Dosage Frequency Start Date End Date Duration Status Clonazepam 1 MG Orally Once a day at HS 1 tablet Sep, Active MS Contin 30 MG Orally every 12 hrs 1 tablet 12h Nov, 28 days Active Cyanocobalamin 1000 MCG/ML INJECT 1 ML SUBCUTANEOUSLY Active Lisinopril-Hydrochlorothiazide 20-25 MG Orally Once a day 1 tablet 24h 90 days Active Multivitamin 1 Tablet 1 time per day Aug, Active Clonazepam 0.5 MG Orally Once a day 1 tablet as needed for anxiety 24h Feb, 28 days Active EQ Ibuprofen 200 mg Orally 3 times a day 4 tablet as needed 8h Jul, Nov, 30 days Active Aspirin 81 mg take 1 tablet (81 mg) by oral route once daily Nov, Active Oxycodone HCl 10 mg Orally every 6 hrs 1 tablet as needed 6h Jul, Aug, 28 days Active MS Contin 15 MG Orally every 12 hrs 1 tablet 12h Nov, Aug, 28 days Active Prozac 10 mg Orally Once a day 1 capsule in the morning 24h 90 days Active Claritin 10 mg Orally Once a day 1 tablet 24h Feb, Feb, 30 day(s) Active Singulair 10 mg Orally Once a day 1 tablet in the evening 24h May, 90 days Active Omeprazole 20 mg Orally Once a day 1 capsule 24h 30 days Active Amitriptyline HCl 25 MG Orally Once a day 1 tablet at bedtime 24h 90 days Active Nitroglycerin 0.4 mg 1 tablet by Sublingual route every 5 PRN chest pain ; NTE 3 tabs in 15 min Jun, Active RESULTS Name Result Date Reference Range Mammogram, Bilateral Screening 2016-09-14 PROCEDURES Procedure Date Ordered Related Diagnosis Body Site [facility] VISIT ESTABLISHED PATIENT Aug 18, 2016 Office Visit, Est Pt., Level 3 Aug 18, 2016 IMMUNIZATIONS No Known Immunizations
--- OUTSIDE RECORDS SUMMARY | 2018-01-29 19:36 | XMS REPORT ---
Author Author ASHVIN ROBERTS eClinicalWorks Address Unknown Phone Unavailable Care Team Providers Care Director Of Instructional Technology Name Role Phone ASHVIN ROBERTS CP Unavailable [...] Active Assessment B12 deficiency E53.8 Active Problem Chronic prescription benzodiazepine use Z79.899 Active Assessment Right shoulder pain M25.511 Active Problem Bilateral low back pain, with sciatica presence unspecified M54.5 Active Problem Major depressive disorder, recurrent episode, unspecified severity F33.9 Active Problem Atherosclerosis of [place] coronary artery of [place] heart without angina pectoris I25.10 Active Problem B12 deficiency E53.8 Active Problem Allergic rhinitis J30.9 Active Assessment Hyperlipidemia, unspecified hyperlipidemia E78.5 Active Assessment Essential hypertension I10 Active Assessment Allergic rhinitis J30.9 Active Assessment Chronic prescription opiate use Z79.899 Active Assessment Major depressive disorder, recurrent episode, unspecified severity F33.9 Active Problem Other constipation K59.09 Active Assessment Chronic pain syndrome G89.4 Active Problem Hyperlipidemia, unspecified hyperlipidemia E78.5 Active Assessment Anxiety F41.9 Active Problem Essential hypertension I10 Active Medications Medication Code System Code Instructions Start Date End Date Status Dosage Omeprazole [facility] [address]-44 20 MG Orally 2 times a day before meals June 21, 2015 1 capsule MS Contin [facility] [address]-95 30 MG Orally every 12 hrs Dec 09, 2015 1 tablet Nitroglycerin [facility] [address]-08 0.4 mg 2014 1 tablet by Sublingual route every 5 PRN chest pain; NTE 3 tabs in 15 min Amlodipine Besylate [facility] [address]-52 10 MG Orally Once a day 1 tablet MS Contin [facility] [address]-68 15 MG Orally Once a day in the morning with 30 mg tab Dec 09, 2015 1 tablet Percocet [facility] [address]-91 10-325 MG February 09, 2015 take 1 tablet by Oral route as needed every 4 hours PRN Aspirin [facility] [address]-71 81 mg Nov 28, 2013 take 1 tablet (81 mg ) by oral route once daily Clonazepam [facility] [address]-56 1 MG Orally Oct 20, 2014 take 1 tablet by Oral route 1 time per day PRN Anxiety Lisinopril-Hydrochlorothiazide [facility] [address]-56 20-25 MG Once a day Dec 11, 2014 take 1 tablet by Oral route 1 time per day Take in AM Prozac [facility] [address]-25 10 MG Orally Once a day Dec 09, 2015 1 capsule in the morning Ipratropium-Albuterol [facility] [address]-61 20-100 mcg/actuation Jul 06, 2014 inhale 1 puff by Inhalation route ; may take additional puffs as needed 4 times per day Multivitamin [facility] [address] Sep 23, 2013 1 Tablet 1 time per day HM Senna-S [facility] [address]-62 8.6-50 MG Orally 2 times a day June 15, 2015 1 tablet Fluticasone Propionate [facility] [address]-06 50 MCG/ACT Nasally Once a day Dec 09, 2015 1 spray in each nostril Cyanocobalamin [facility] [address]-48 1000 MCG/ML Injection one x per month May 07, 2015 1 ml Procedures Procedure Coding System Code Date X-RAY EXAM OF SHOULDER CPT-4 39199 Dec 09, 2015 FORMERLY [facility] VISIT ESTABLISHED PATIENT CPT-4 G0467 Dec 09, 2015 [facility] CPT-4 NOBLL Dec 09, 2015 No Charge CPT-4 11383 Dec 09, 2015 Office Visit, Est Pt., Level 4 CPT-4 09258 Dec 09, 2015 VENIPUNCT, ROUTINE* CPT-4 03815 Dec 09, 2015 Vital Signs Date/Time: Dec 09, 2015 Temperature 98.0 F Weight 244.0 lbs Height 69 in BMI 36.03 Index Blood Pressure Diastolic 78 mmHg Blood Pressure Systolic 140 mmHg Cardiac Monitoring Heart Rate 70 bpm Results Name Result Date Reference Range Unit Abnormality Flag ROUTINE VENIPUNCTURE Summary Purpose eClinicalWorks Submission
--- OUTSIDE RECORDS SUMMARY | 2018-01-29 19:36 | XMS REPORT ---
Author Author ASHVIN ROBERTS eClinicalWorks Address Unknown Phone Unavailable Care Team Providers Care Advertising Job Titles Name Role Phone ASHVIN ROBERTS CP Unavailable Allergies No Known Allergies Problems Problem Type Condition Code Onset Dates Condition Status Problem Other constipation K59.09 Active Problem Atherosclerosis of [place] coronary artery of [place] heart without angina pectoris I25.10 Active Problem Chronic pain syndrome G89.4 Active Problem Major depressive disorder, recurrent episode, unspecified severity F33.9 Active Problem Essential hypertension I10 Active Problem Hyperlipidemia, unspecified hyperlipidemia E78.5 Active Problem Anxiety F41.9 Active Problem Primary insomnia F51.01 Active Medications Medication Code System Code Instructions Start Date End Date Status Dosage Bactrim DS [facility] [address]-47 800-160 MG Orally 2 times a day Sep 16, 2015 Sep 19, 2015 1 tablet Results No Known Results Summary Purpose eClinicalWorks Submission
--- OUTSIDE RECORDS SUMMARY | 2018-01-29 19:36 | XMS REPORT ---
Author Author ARMANDO ASHVIN Organization [facility] Address [address] [place] [address] Care Team Providers Care Instructor Weaving Name Role Phone NYASIA ROBERTSY Unavailable PROBLEMS Type Condition ICD9-CM Code [id number] Code Onset Dates Condition Status SNOMED Code Problem Bilateral low back pain, with sciatica presence unspecified M54.5 Active 690890106 Problem Allergic rhinitis J30.9 Active 78819022 Problem B12 deficiency E53.8 Active 868185391 Problem CKD (chronic kidney disease) stage 3, GFR 30-59 ml/min N18.3 Active 416058775 Problem Drug induced constipation K59.03 Active 164569666857312 Problem Fibromyalgia M79.7 Active 56459285 Problem GERD (gastroesophageal reflux disease) K21.9 Active 715456107 Problem Thrombocytosis D47.3 Active 6816379 Problem Chronic obstructive pulmonary disease, unspecified COPD type J44.9 Active 87147376 Problem Primary insomnia F51.01 Active 717904361 Problem Anxiety F41.9 Active 44895996 Problem Other constipation K59.09 Active 551367095893768 Problem Chronic pain syndrome G89.4 Active 333438508 Problem Major depressive disorder, recurrent episode, unspecified severity F33.9 Active 59420191 Problem Hyperlipidemia, unspecified hyperlipidemia E78.5 Active 10761293 Problem Essential hypertension I10 Active 06609802 Problem Chronic prescription benzodiazepine use Z79.899 Active 479574054 Problem Atherosclerosis of [place] coronary artery of [place] heart without angina pectoris I25.10 Active 6276086945679 Problem Chronic prescription opiate use Z79.899 Active 351826615 ALLERGIES No Information SOCIAL HISTORY Never Assessed PLAN OF CARE VITAL SIGNS MEDICATIONS Unknown Medications RESULTS No Results PROCEDURES No Known procedures IMMUNIZATIONS No Known Immunizations MEDICAL (GENERAL) HISTORY Type Description Date Medical History hypertension Medical History asthma Medical History Arthritis Medical History Hypoglycemia Medical History Heart Cath 11/05/2013 Medical History herniated disc--Seen by Dr. Troy Michelle pain specialist in [place], [place] Medical History Chronic low back pain Medical History depression Medical History anxiety Medical History Panic attacks Medical History Vitamin B 12 deficiency r/t gastric bypass Medical History Low back injections 11/2012, 06/2013 Surgical History tonsillectomy Surgical History gastric bypass--2003-in [place]. Unsure of Dr's name. No longer in [...]
--- OUTSIDE RECORDS SUMMARY | 2018-01-29 19:36 | XMS REPORT ---
Author Author ASHVIN ROBERTS eClinicalWorks Address Unknown Phone Unavailable Care Team Providers Care Media Clerk Name Role Phone ASHVIN ROBERTS CP Unavailable [...] unspecified severity F33.9 Active Problem Atherosclerosis of [place] coronary artery of [place] heart without angina pectoris I25.10 Active Problem B12 deficiency E53.8 Active Problem Allergic rhinitis J30.9 Active Assessment Right shoulder pain M25.511 Active Problem Other constipation K59.09 Active Problem Hyperlipidemia, unspecified hyperlipidemia E78.5 Active Problem Essential hypertension I10 Active Medications No Known Medications Results No Known Results Summary Purpose eClinicalWorks Submission
--- OUTSIDE RECORDS SUMMARY | 2018-01-29 19:36 | XMS REPORT ---
Author Author ARMANDO ASHVIN Organization [facility] Address [address] [place] [address] Care Team Providers Care Toll Collector Name Role Phone ASHVIN ROBERTS Unavailable PROBLEMS Type Condition ICD9-CM Code [id number] Code Onset Dates Condition Status SNOMED Code Problem Major depressive disorder, recurrent episode, unspecified severity F33.9 Active 06170596 Problem B12 deficiency E53.8 Active 124776481 Problem Allergic rhinitis J30.9 Active 50850479 Problem Fibromyalgia M79.7 Active 44153372 Problem GERD (gastroesophageal reflux disease) K21.9 Active 041027100 Problem Chronic prescription opiate use Z79.899 Active 731107163 Problem Chronic prescription benzodiazepine use Z79.899 Active 103157387 Problem Chronic obstructive pulmonary disease, unspecified COPD type J44.9 Active 56590939 Problem Bilateral low back pain, with sciatica presence unspecified M54.5 Active 165610572 Problem Other constipation K59.09 Active 612164440100976 Problem Primary insomnia F51.01 Active 770225647 Problem Anxiety F41.9 Active 28315274 Problem Hyperlipidemia, unspecified hyperlipidemia E78.5 Active 97731389 Problem Chronic pain syndrome G89.4 Active 033687870 Problem Essential hypertension I10 Active 63157706 Problem Atherosclerosis of [place] coronary artery of [place] heart without angina pectoris I25.10 Active 1772833165872 ALLERGIES Unknown Allergies SOCIAL HISTORY No smoking Hx information available PLAN OF CARE VITAL SIGNS MEDICATIONS Medication Instructions Dosage Frequency Start Date End Date Duration Status Ibuprofen 400 MG Orally Three times a day 1 tablet as needed 8h Jul, 30 days Active RESULTS No Results PROCEDURES No Known procedures IMMUNIZATIONS No Known Immunizations
--- OUTSIDE RECORDS SUMMARY | 2018-01-29 19:37 | XMS REPORT ---
Author Author MIKAELA DELGADILLO [facility] eClinicalWorks Address Unknown Phone Unavailable Care Team Providers Care Rn Community Name Role Phone MIKAELA DELGADILLO CP Unavailable Allergies No Known Allergies Problems Problem Type Condition Code Onset Dates Condition Status Problem Other constipation K59.09 Active Problem Atherosclerosis of [place] coronary artery of [place] heart without angina pectoris I25.10 Active Problem [...] mg) by oral route every 12 hours Percocet [facility] [address]-66 10-325 MG February 09, 2015 take 1 tablet by Oral route as needed every 4 hours PRN Clonazepam [facility] [address]-30 1 MG Orally Oct 20, 2014 take 1 tablet by Oral route 1 time per day PRN Anxiety Results No Known Results Summary Purpose eClinicalWorks Submission
--- OUTSIDE RECORDS SUMMARY | 2018-01-29 19:37 | XMS REPORT ---
Author Author ARMANDOASHVIN DIAZ Organization [facility] Address [address] [place] [address] Care Team Providers Care Music Therapy Specialist Name Role Phone ASHVIN ROBERTS Unavailable PROBLEMS Type Condition ICD9-CM Code [id number] Code Onset Dates Condition Status SNOMED Code Problem Bilateral low back pain, with sciatica presence unspecified M54.5 Active 183361071 Problem Allergic rhinitis J30.9 Active 02197558 Problem B12 deficiency E53.8 Active 710901858 Problem CKD (chronic kidney disease) stage 3, GFR 30-59 ml/min N18.3 Active 822156344 Problem Drug induced constipation K59.03 Active 557914766576169 Problem Fibromyalgia M79.7 Active 36135846 Problem GERD (gastroesophageal reflux disease) K21.9 Active 719111122 Problem Thrombocytosis D47.3 Active 0575517 Problem Chronic obstructive pulmonary disease, unspecified COPD type J44.9 Active 51116139 Problem Primary insomnia F51.01 Active 168096445 Problem Anxiety F41.9 Active 03207930 Problem Other constipation K59.09 Active 261369557818583 Problem Chronic pain syndrome G89.4 Active 235395807 Problem Major depressive disorder, recurrent episode, unspecified severity F33.9 Active 73395204 Problem Hyperlipidemia, unspecified hyperlipidemia E78.5 Active 13094315 Problem Essential hypertension I10 Active 47240812 Problem Chronic prescription benzodiazepine use Z79.899 Active 325491392 Problem Atherosclerosis of [place] coronary artery of [place] heart without angina pectoris I25.10 Active 7754964210311 Problem Chronic prescription opiate use Z79.899 Active 642091490 ALLERGIES Unknown Allergies SOCIAL HISTORY No smoking Hx information available PLAN OF CARE VITAL SIGNS MEDICATIONS Medication Instructions Dosage Frequency Start Date End Date Duration Status Clonazepam 1 MG Orally Once a day at HS 1 tablet Sep, Active Clonazepam 0.5 MG Orally Once a day 1 tablet as needed for anxiety 24h 26 Feb, 2016 28 days Active MS Contin 15 MG Orally every 12 hrs 1 tablet 12h 16 Dec, 2016 28 days Active Oxycodone HCl 10 mg Orally every 6 hrs 1 tablet as needed 6h Jul, 28 days Active MS Contin 30 MG Orally every 12 hrs 1 tablet 12h Oct, 28 days Active RESULTS No Results PROCEDURES No Known procedures IMMUNIZATIONS No Known Immunizations
--- OUTSIDE RECORDS SUMMARY | 2018-01-29 19:37 | XMS REPORT ---
Author Author ARMANDO ASHVIN Organization [facility] Address [address] [place] [address] Care Team Providers Care Php Architect Name Role Phone ASHVIN ROBERTS Unavailable PROBLEMS Type Condition ICD9-CM Code [id number] Code Onset Dates Condition Status SNOMED Code Problem Chronic prescription benzodiazepine use Z79.899 Active 558667499 Problem Bilateral low back pain, with sciatica presence unspecified M54.5 Active 143504477 Problem Chronic prescription opiate use Z79.899 Active 518237553 Problem Drug induced constipation K59.03 Active 088185816978839 Problem CKD (chronic kidney disease) stage 3, GFR 30-59 ml/min N18.3 Active 505781034 Problem GERD (gastroesophageal reflux disease) K21.9 Active 722248657 Problem Chronic obstructive pulmonary disease, unspecified COPD type J44.9 Active 61785073 Problem Thrombocytosis D47.3 Active 9488508 Problem Fibromyalgia M79.7 Active 11449278 Problem Essential hypertension I10 Active 64516103 Problem Primary insomnia F51.01 Active 511559188 Problem Other constipation K59.09 Active 271801456064826 Problem Hyperlipidemia, unspecified hyperlipidemia E78.5 Active 78652291 Problem Atherosclerosis of [place] coronary artery of [place] heart without angina pectoris I25.10 Active 7696150013466 Problem Major depressive disorder, recurrent episode, unspecified severity F33.9 Active 64545515 Problem Anxiety F41.9 Active 94030963 Problem Allergic rhinitis J30.9 Active 64120352 Problem Chronic pain syndrome G89.4 Active 389986615 Problem B12 deficiency E53.8 Active 203770818 ALLERGIES Substance Reaction Event Type Date Status Lyrica throat swelling Drug Allergy Oct, Active Flagyl throat swelling Drug Allergy Oct, Active Lisinopril 20 Mg Tablet Headache Non Drug Allergy Oct, Active SOCIAL HISTORY No smoking Hx information available PLAN OF CARE Activity Details Follow Up 3 Months Reason:Chronic pain VITAL SIGNS Height 69 in 2016-11-10 Weight 195.5 lbs 2016-11-10 Temperature 99.2 degrees Fahrenheit 2016-11-10 Heart Rate 64 bpm 2016-11-10 Respiratory Rate 16 2016-11-10 BMI 28.87 kg/m2 2016-11-10 Blood pressure systolic 144 mmHg 2016-11-10 Blood pressure diastolic 86 mmHg 2016-11-10 MEDICATIONS Medication Instructions Dosage Frequency Start Date End Date Duration Status Nitroglycerin 0.4 mg 1 tablet by Sublingual route every 5 PRN chest pain ; NTE 3 tabs in 15 min Jun, Active Omeprazole 20 mg Orally Once a day 1 capsule 24h 30 Active Clonazepam 1 MG Orally Once a day at HS 1 tablet Sep, Active Prozac 10 mg Orally Once a day 1 capsule in the morning 24h 90 days Active Cyanocobalamin 1000 MCG/ML INJECT 1 ML SUBCUTANEOUSLY Active Multivitamin 1 Tablet 1 time per day Aug, Active Claritin 10 mg Orally Once a day 1 tablet 24h Feb, Feb, 30 day(s) Active Singulair 10 mg Orally Once a day 1 tablet in the evening 24h May, 90 days Active MS Contin 30 MG Orally every 12 hrs 1 tablet 12h Oct, 28 days Active Clonazepam 0.5 MG Orally Once a day 1 tablet as needed for anxiety 24h Feb, 28 days Active Oxycodone HCl 10 mg Orally every 6 hrs 1 tablet as needed 6h Jul, 28 days Active Ibuprofen 400 MG Orally Three times a day 1 tablet as needed 8h Jul, 30 days Active Amitriptyline HCl 25 MG Orally Once a day 1 tablet at bedtime 24h 90 days Active Aspirin 81 mg take 1 tablet (81 mg) by oral route once daily Nov, Active Lisinopril-Hydrochlorothiazide 20-25 MG Orally Once a day 1 tablet 24h 90 days Active MS Contin 15 MG Orally every 12 hrs 1 tablet 12h Oct, 28 days Active RESULTS Name Result Date Reference Range [employer] 2016-11-10 PROCEDURES Procedure Date Ordered Related Diagnosis Body Site No Charge Nov 10, 2016 FORMERLY [facility] VISIT ESTABLISHED PATIENT Nov 10, 2016 Office Visit, Est Pt., Level 3 Nov 10, 2016 IMMUNIZATIONS No Known Immunizations
--- OUTSIDE RECORDS SUMMARY | 2018-01-29 19:37 | XMS REPORT ---
Author Author ASHVIN ROBERTS eClinicalWorks Address Unknown Phone Unavailable Care Team Providers Care Title Lawyer Name Role Phone ASHVIN ROBERTS CP Unavailable Allergies No Known Allergies Problems Problem Type Condition Code Onset Dates Condition Status Problem Other constipation K59.09 Active Problem Atherosclerosis of [place] coronary artery of [place] heart without angina pectoris I25.10 Active Problem Chronic pain syndrome G89.4 Active Problem Major depressive disorder, recurrent episode, unspecified severity F33.9 Active Problem Essential hypertension I10 Active Problem Hyperlipidemia, unspecified hyperlipidemia E78.5 Active Problem Anxiety F41.9 Active Problem Primary insomnia F51.01 Active Medications No Known Medications Results No Known Results Summary Purpose eClinicalWorks Submission
--- OUTSIDE RECORDS SUMMARY | 2018-01-29 19:37 | XMS REPORT ---
Author Author ASHVIN ROBERTS [facility] eClinicalWorks Address Unknown Phone Unavailable Care Team Providers Care Automotive Professional Name Role Phone ASHVIN ROBERTS CP Unavailable Allergies No Known Allergies Problems Problem Type Condition ICD-9 Code Onset Dates Condition Status Problem Other chronic pain 338.29 Active Problem Hypertension 401.9 Active Problem Hyperlipidemia 272.4 Active Problem Anxiety 300.00 Active Problem Coronary atherosclerosis of unspecified type of vessel, [place] or graft 414.00 Active Problem Nondependent tobacco use disorder 305.1 Active Problem Constipation due to opioid therapy 564.09 Active Problem Depressive disorder, not elsewhere classified 311 Active Medications Medication Code System Code Instructions Start Date End Date Status Dosage Lisinopril-Hydrochlorothiazide [facility] [address]-69 20-25 MG Once a day Dec 11, 2014 take 1 tablet by Oral route 1 time per day Take in AM Results No Known Results Summary Purpose eClinicalWorks Submission
--- OUTSIDE RECORDS SUMMARY | 2018-01-29 19:37 | XMS REPORT ---
Author Author ASHVIN ROBERTS eClinicalWorks Address Unknown Phone Unavailable Care Team Providers Care Pantograph Engraver Name Role Phone ASHVIN ROBERTS CP Unavailable Allergies No Known Allergies Problems Problem Type Condition Code Onset Dates Condition Status Problem Atherosclerosis of [place] coronary artery of [place] heart without angina pectoris I25.10 Active Problem [...]
--- OUTSIDE RECORDS SUMMARY | 2018-01-29 19:37 | XMS REPORT ---
Author Author ARMANDO ASHVIN Organization [facility] Address [address] [place] [address] Care Team Providers Care Music Researcher Name Role Phone ASHVIN ROBERTS Unavailable PROBLEMS Type Condition ICD9-CM Code [id number] Code Onset Dates Condition Status SNOMED Code Problem Bilateral low back pain, with sciatica presence unspecified M54.5 Active 304084245 Problem Allergic rhinitis J30.9 Active 78883823 Problem B12 deficiency E53.8 Active 915976509 Problem CKD (chronic kidney disease) stage 3, GFR 30-59 ml/min N18.3 Active 004492424 Problem Drug induced constipation K59.03 Active 590095038139306 Problem Fibromyalgia M79.7 Active 31597912 Problem GERD (gastroesophageal reflux disease) K21.9 Active 627547348 Problem Thrombocytosis D47.3 Active 3822746 Problem Chronic obstructive pulmonary disease, unspecified COPD type J44.9 Active 55736279 Problem Primary insomnia F51.01 Active 435025450 Problem Anxiety F41.9 Active 36238966 Problem Other constipation K59.09 Active 468250847149994 Problem Chronic pain syndrome G89.4 Active 055468828 Problem Major depressive disorder, recurrent episode, unspecified severity F33.9 Active 86161973 Problem Hyperlipidemia, unspecified hyperlipidemia E78.5 Active 07902518 Problem Essential hypertension I10 Active 19009045 Problem Chronic prescription benzodiazepine use Z79.899 Active 745455006 Problem Atherosclerosis of [place] coronary artery of [place] heart without angina pectoris I25.10 Active 8895056194850 Problem Chronic prescription opiate use Z79.899 Active 310511308 ALLERGIES No Information SOCIAL HISTORY Never Assessed PLAN OF CARE VITAL SIGNS MEDICATIONS Medication Instructions Dosage Frequency Start Date End Date Duration Status Singulair 10 mg Orally Once a day 1 tablet in the evening 24h May, 90 days Active Prozac 10 mg Orally Once a day 1 capsule in the morning 24h 90 days Active Lisinopril-Hydrochlorothiazide 20-25 MG Orally Once a day 1 tablet 24h 90 days Active Amitriptyline HCl 25 MG Orally Once a day 1 tablet at bedtime 24h 90 days Active RESULTS No Results PROCEDURES No Known procedures IMMUNIZATIONS No Known Immunizations MEDICAL (GENERAL) HISTORY Type Description Date Medical History hypertension Medical History asthma Medical History Arthritis Medical History Hypoglycemia Medical History Heart Cath 11/05/2013 Medical History herniated disc--Seen by Dr. Tryo Michelle pain specialist in [place], [place] Medical History Chronic low back pain Medical History depression Medical History anxiety Medical History Panic attacks Medical History Vitamin B 12 deficiency r/t gastric bypass Medical History Low back injections 11/2012, 06/2013 Surgical History tonsillectomy Surgical History gastric bypass--2003-in [place]. Unsure of Dr's name. No longer in [...]
--- OUTSIDE RECORDS SUMMARY | 2018-01-29 19:37 | XMS REPORT ---
Author Author ASHVIN ROBERTS eClinicalWorks Address Unknown Phone Unavailable Care Team Providers Care Calender Roll Operator Name Role Phone ASHVIN ROBERTS CP Unavailable [...] unspecified severity F33.9 Active Problem Atherosclerosis of [place] coronary artery of [place] heart without angina pectoris I25.10 Active Problem B12 deficiency E53.8 Active Problem Allergic rhinitis J30.9 Active Assessment B12 deficiency E53.8 Active Problem Other constipation K59.09 Active Problem Hyperlipidemia, unspecified hyperlipidemia E78.5 Active Assessment Essential hypertension I10 Active Problem Essential hypertension I10 Active Medications No Known Medications Procedures Procedure Coding System Code Date VENIPUNCT, ROUTINE* CPT-4 72795 Jan 07, 2016 LAB NOT BILLED BY [facility] CPT-4 NOBLL Jan 07, 2016 Results Name Result Date Reference Range Unit Abnormality Flag ROUTINE VENIPUNCTURE Summary Purpose eClinicalWorks Submission
--- OUTSIDE RECORDS SUMMARY | 2018-01-29 19:37 | XMS REPORT ---
Author Author ASHVIN ROBERTS eClinical[employer] Address Unknown Phone Unavailable Care Team Providers Care Manager Compliance Name Role Phone ASHVIN ROBERTS CP Unavailable Allergies No Known Allergies Problems Problem Type Condition Code Onset Dates Condition Status Problem Other constipation K59.09 Active Problem Atherosclerosis of [place] coronary artery of [place] heart without angina pectoris I25.10 Active Problem Chronic pain syndrome G89.4 Active Problem Major depressive disorder, recurrent episode, unspecified severity F33.9 Active Problem Essential hypertension I10 Active Problem Hyperlipidemia, unspecified hyperlipidemia E78.5 Active Problem Anxiety F41.9 Active Problem Primary insomnia F51.01 Active Medications Medication Code System Code Instructions Start Date End Date Status Dosage Percocet [facility] [address]-87 10-325 MG February 09, 2015 take 1 tablet by Oral route as needed every 4 hours PRN Clonazepam [facility] [address]-90 1 MG Orally Oct 20, 2014 take 1 tablet by Oral route 1 time per day PRN Anxiety morphine ND 0 30 mg February 09, 2015 take 1 tablet (30 mg) by oral route every 12 hours Results No Known Results Summary Purpose eClinicalWorks Submission
--- OUTSIDE RECORDS SUMMARY | 2018-01-29 19:37 | XMS REPORT ---
Author Author ASHVIN ROBERTS [facility] eClinicalWorks Address Unknown Phone Unavailable Care Team Providers Care Enrollment Services Dean Name Role Phone ASHVIN ROBERTS CP Unavailable Allergies No Known Allergies Problems Problem Type Condition Code Onset Dates Condition Status Problem Atherosclerosis of [place] coronary artery of [place] heart without angina pectoris I25.10 Active Problem [...] Start Date End Date Status Dosage Clonazepam [facility] [address]-67 1 MG Orally Once a day at HS Oct 20, 2014 1 tablet Clonazepam [facility] [address]-72 0.5 MG Orally Once a day March 21, 2016 1 tablet as needed for anxiety Results No Known Results Summary Purpose eClinicalWorks Submission
--- OUTSIDE RECORDS SUMMARY | 2018-01-29 19:37 | XMS REPORT ---
Author Author ASHVIN ROBERTS [facility] eClinicalWorks Address Unknown Phone Unavailable Care Team Providers Care Apprentice Name Role Phone ASHVIN ROBERTS CP Unavailable Allergies No Known Allergies Problems Problem Type Condition Code Onset Dates Condition Status Problem Other constipation K59.09 Active Problem Atherosclerosis of [place] coronary artery of [place] heart without angina pectoris I25.10 Active Problem Chronic pain syndrome G89.4 Active Problem Major depressive disorder, recurrent episode, unspecified severity F33.9 Active Problem Essential hypertension I10 Active Problem Hyperlipidemia, unspecified hyperlipidemia E78.5 Active Problem Anxiety F41.9 Active Problem Primary insomnia F51.01 Active Medications Medication Code System Code Instructions Start Date End Date Status Dosage Diflucan [facility] [address]-87 150 MG Orally Once a day Sep 14, 2015 1 tablet Results No Known Results Summary Purpose eClinicalWorks Submission
--- OUTSIDE RECORDS SUMMARY | 2018-01-29 19:37 | XMS REPORT ---
Author Author ARMANDO ASHVIN Organization [facility] Address [address] [place] [address] Care Team Providers Care Account Liaison Name Role Phone ASHVIN ROBERTS Unavailable PROBLEMS Type Condition ICD9-CM Code DCL70-MC Code Onset Dates Condition Status SNOMED Code Problem Bilateral low back pain, with sciatica presence unspecified M54.5 Active 193290374 Problem Allergic rhinitis J30.9 Active 75852169 Problem B12 deficiency E53.8 Active 642948647 Problem CKD (chronic kidney disease) stage 3, GFR 30-59 ml/min N18.3 Active 947343805 Problem Drug induced constipation K59.03 Active 068492608142121 Problem Fibromyalgia M79.7 Active 01390476 Problem GERD (gastroesophageal reflux disease) K21.9 Active 035528446 Problem Thrombocytosis D47.3 Active 8933417 Problem Chronic obstructive pulmonary disease, unspecified COPD type J44.9 Active 90456052 Problem Primary insomnia F51.01 Active 446710537 Problem Anxiety F41.9 Active 17455662 Problem Other constipation K59.09 Active 244272516522052 Problem Chronic pain syndrome G89.4 Active 015324470 Problem Major depressive disorder, recurrent episode, unspecified severity F33.9 Active 83666118 Problem Hyperlipidemia, unspecified hyperlipidemia E78.5 Active 05343295 Problem Essential hypertension I10 Active 47461593 Problem Chronic prescription benzodiazepine use Z79.899 Active 518906120 Problem Atherosclerosis of [place] coronary artery of [place] heart without angina pectoris I25.10 Active 0491549776602 Problem Chronic prescription opiate use Z79.899 Active 851726527 ALLERGIES No Known Allergies SOCIAL HISTORY No smoking Hx information available PLAN OF CARE VITAL SIGNS MEDICATIONS No Known Medications RESULTS Name Result Date Reference Range VITAMIN B12 2016-12-29 Vitamin B12 528 211-946 CBC 2016-12-29 WBC 6.9 3.4-10.8 RBC 4.00 3.77-5.28 Hemoglobin 12.1 11.1-15.9 Hematocrit 36.0 34.0-46.6 MCV 90 79-97 MCH 30.3 26.6-33.0 MCHC 33.6 31.5-35.7 RDW 12.7 12.3-15.4 Platelets 294 150-379 Neutrophils 58 Lymphs 34 Monocytes 6 Eos 2 Basos 0 Neutrophils (Absolute) 4.0 1.4-7.0 Lymphs (Absolute) 2.3 0.7-3.1 Monocytes(Absolute) 0.4 0.1-0.9 Eos (Absolute) 0.1 0.0-0.4 Baso (Absolute) 0.0 0.0-0.2 Immature Granulocytes 0 Immature Grans (Abs) 0.0 0.0-0.1 LIPID PANEL 2016-12-29 Cholesterol, Total 154 100-199 Triglycerides 124 0-149 HDL Cholesterol 59 >39 VLDL Cholesterol Tho 25 5-40 LDL Cholesterol Calc 70 0-99 CMP 2016-12-29 Glucose, Serum 91 65-99 BUN 23 6-24 Creatinine, Serum 1.58 0.57-1.00 eGFR If NonAfricn Am 38 >59 eGFR If Africn Am 44 >59 BUN/Creatinine Ratio 15 9-23 Sodium, Serum 146 134-144 Potassium, Serum 3.6 3.5-5.2 Chloride, Serum 103 96-106 Carbon Dioxide, Total 27 18-29 Calcium, Serum 9.0 8.7-10.2 Protein, Total, Serum 5.7 6.0-8.5 Albumin, Serum 3.6 3.5-5.5 Globulin, Total 2.1 1.5-4.5 A/G Ratio 1.7 1.1-2.5 Bilirubin, Total 0.2 0.0-1.2 Alkaline Phosphatase, S 78 39-117 AST (SGOT) 11 0-40 ALT (SGPT) 12 0-32 HEP C ANTIBODY (STATE) 2016-12-29 RESULTS PROCEDURES Procedure Date Ordered Related Diagnosis Body Site [facility] Dec 29, 2016 No Charge Dec 29, 2016 VENIPUNCT, ROUTINE* Dec 29, 2016 IMMUNIZATIONS No Known Immunizations
--- OUTSIDE RECORDS SUMMARY | 2018-01-29 19:38 | XMS REPORT ---
Author Author ASHVIN ROBERTS [facility] eClinicalWorks Address Unknown Phone Unavailable Care Team Providers Care Musical Instrument Maker Name Role Phone ASHVIN ROBERTS CP Unavailable Allergies No Known Allergies Problems Problem Type Condition Code Onset Dates Condition Status Problem Atherosclerosis of [place] coronary artery of [place] heart without angina pectoris I25.10 Active Problem [...] Instructions Start Date End Date Status Dosage Oxycodone HCl [facility] [address]-18 10 mg Orally every 6 hrs Aug 18, 2016 1 tablet as needed Clonazepam [facility] [address]-45 0.5 MG Orally Once a day March 21, 2016 1 tablet as needed for anxiety MS Contin [facility] [address]-93 15 MG Orally every 12 hrs Dec 09, 2015 1 tablet MS Contin [facility] [address]-90 30 MG Orally every 12 hrs Dec 09, 2015 1 tablet Clonazepam [facility] [address]-89 1 MG Orally Once a day at HS Oct 20, 2014 1 tablet Results No Known Results Summary Purpose eClinicalWorks Submission
--- OUTSIDE RECORDS SUMMARY | 2018-01-29 19:38 | XMS REPORT ---
Author Author ASHVIN ROBERTS eClinicalWorks Address Unknown Phone Unavailable Care Team Providers Care Test And Turn Up Technician Name Role Phone ASHVIN ROBERTS CP Unavailable [...] unspecified severity F33.9 Active Problem Atherosclerosis of [place] coronary artery of [place] heart without angina pectoris I25.10 Active Problem B12 deficiency E53.8 Active Problem Allergic rhinitis J30.9 Active Assessment Right shoulder pain M25.511 Active Problem Other constipation K59.09 Active Problem Hyperlipidemia, unspecified hyperlipidemia E78.5 Active Problem Essential hypertension I10 Active Medications No Known Medications Results No Known Results Summary Purpose eClinicalWorks Submission
--- OUTSIDE RECORDS SUMMARY | 2018-01-29 19:38 | XMS REPORT ---
Author Author ARMANDO ASHVIN Organization [facility] Address [address] [place] [address] Care Team Providers Care Telegraphic Typewriter Mechanic Name Role Phone ASHVIN ROBERTS Unavailable PROBLEMS Type Condition ICD9-CM Code NNX58-PM Code Onset Dates Condition Status SNOMED Code Problem Bilateral low back pain, with sciatica presence unspecified M54.5 Active 435112518 Problem Allergic rhinitis J30.9 Active 80787480 Problem B12 deficiency E53.8 Active 861748328 Problem CKD (chronic kidney disease) stage 3, GFR 30-59 ml/min N18.3 Active 787965263 Problem Drug induced constipation K59.03 Active 815767701060107 Problem Fibromyalgia M79.7 Active 00728790 Problem GERD (gastroesophageal reflux disease) K21.9 Active 858147567 Problem Thrombocytosis D47.3 Active 8606198 Problem Chronic obstructive pulmonary disease, unspecified COPD type J44.9 Active 42395137 Problem Primary insomnia F51.01 Active 213634300 Problem Anxiety F41.9 Active 37599656 Problem Other constipation K59.09 Active 317500880139376 Problem Chronic pain syndrome G89.4 Active 267489163 Problem Major depressive disorder, recurrent episode, unspecified severity F33.9 Active 05850365 Problem Hyperlipidemia, unspecified hyperlipidemia E78.5 Active 79269788 Problem Essential hypertension I10 Active 46457090 Problem Chronic prescription benzodiazepine use Z79.899 Active 723793032 Problem Atherosclerosis of [place] coronary artery of [place] heart without angina pectoris I25.10 Active 0098857210696 Problem Chronic prescription opiate use Z79.899 Active 162503048 ALLERGIES No Information SOCIAL HISTORY Never Assessed PLAN OF CARE VITAL SIGNS MEDICATIONS Unknown Medications RESULTS Name Result Date Reference Range [facility] 2017-01-23 Glucose, Serum 94 65-99 BUN 24 6-24 Creatinine, Serum 1.50 0.57-1.00 eGFR If NonAfricn Am 40 >59 eGFR If Africn Am 46 >59 BUN/Creatinine Ratio 16 9-23 Sodium, Serum 144 134-144 Potassium, Serum 4.2 3.5-5.2 Chloride, Serum 104 96-106 Carbon Dioxide, Total 26 18-29 Calcium, Serum 9.4 8.7-10.2 PROCEDURES Procedure Date Ordered Result Body Site LAB NOT BILLED BY [facility] [employer] Jan 23, 2017 VENIPUNCT, ROUTINE* Jan 23, 2017 IMMUNIZATIONS No Known Immunizations MEDICAL (GENERAL) HISTORY Type Description Date Medical History hypertension Medical History asthma Medical History Arthritis Medical History Hypoglycemia Medical History Heart Cath 11/05/2013 Medical History herniated disc--Seen by Dr. Troy Michelle pain specialist in [place], [place] Medical History Chronic low back pain Medical History depression Medical History anxiety Medical History Panic attacks Medical History Vitamin B 12 deficiency r/t gastric bypass Medical History Low back injections 11/2012, 06/2013 Surgical History tonsillectomy Surgical History gastric bypass--2003-in [place]. Unsure of Dr's name. No longer in [...]
--- OUTSIDE RECORDS SUMMARY | 2018-01-29 19:38 | XMS REPORT ---
Author Author JAG BUCHANAN Organization [employer] Address Unknown Phone Unavailable Care Team Providers Care Fertilizer Loader Name Role Phone JAG BUCHANAN CP Unavailable Allergies, Adverse Reactions, Alerts Substance Reaction Event Type Lyrica throat swelling Drug Allergy Flagyl throat swelling Drug Allergy Lisinopril 20 Mg Tablet Headache Non Drug Allergy Problems Problem Type Condition Code Onset Dates Condition Status Problem Atherosclerosis of [place] coronary artery of [place] heart without angina pectoris I25.10 Active [...] Chronic prescription opiate use Z79.899 Active Assessment Encounter for immunization Z23 Active Assessment Leg wound, right, initial encounter S81.801A Active Problem Essential hypertension I10 Active Problem Primary insomnia F51.01 Active Problem Other constipation K59.09 Active Problem Anxiety F41.9 Active Problem Hyperlipidemia, unspecified hyperlipidemia E78.5 Active Problem Chronic pain syndrome G89.4 Active Medications Medication Code System Code Instructions Start Date End Date Status Dosage Amitriptyline HCl [facility] 94795793865 25 MG Orally Once a day at bedtime 1 tablet MS Contin [facility] [address]-54 30 MG Orally every 12 hrs Dec 09, 2015 1 tablet MS Contin [facility] [address]-26 15 MG Orally Once a day in the morning with 30 mg tab Dec 09, 2015 1 tablet Singulair [facility] [address]-18 10 mg Orally Once a day May 26, 2016 1 tablet in the evening Aspirin [facility] [address]-93 81 mg Nov 28, 2013 take 1 tablet (81 mg ) by oral route once daily Clonazepam [facility] [address]-02 0.5 MG Orally Once a day March 21, 2016 1 tablet as needed for anxiety Ibuprofen [facility] [address]-63 800 MG Orally every 8 hours, PRN 1 tablet Omeprazole [facility] [address]-69 20 mg Orally Once a day 1 capsule Motrin IB [facility] [address]-44 800 Orally every 6 hrs 1 tablet as needed Multivitamin [facility] [address] Sep 23, 2013 1 Tablet 1 time per day Bactrim DS [facility] [address]-71 800-160 MG Orally Twice a day 2016 Jul 24, 2016 1 tablet Percocet [facility] [address]-97 10-325 MG February 09, 2015 take 1 tablet by Oral route as needed every 4 hours PRN Lisinopril-Hydrochlorothiazide [facility] 75142060669 20-25 MG TAKE ONE TABLET BY MOUTH IN THE MORNING Claritin [facility] [address]-07 10 mg Orally Once a day March 03, 2016February 1 tablet Amlodipine Besylate [facility] [address]-18 5 MG Orally Once a day 1 tablet Prozac [facility] 01734188695 10 MG Orally Once a day 1 capsule in the morning Clonazepam [facility] [address]-94 1 MG Orally Once a day at HS Oct 20, 2014 1 tablet Cyanocobalamin [facility] 33956683240 1000 MCG/ML every other month INJECT 1 ML SUBCUTANEOUSLY Procedures Procedure Coding System Code Date Office Visit, Est Pt., Level 3 CPT-4 30985 2016 TDAP (BOOSTRIX) CPT-4 98012 2016 [facility] VISIT ESTABLISHED PATIENT CPT-4 G0467 2016 SINGLE IMMUNIZATION ADMIN CPT-4 05627 2016 Vital Signs Date/Time: 2016 Cardiac Monitoring Heart Rate 76 bpm Weight 206.0 lbs Height 69 in BMI 30.42 Index Blood Pressure Diastolic 90 mmHg Blood Pressure Systolic 130 mmHg Results No Known Results Immunizations Vaccine Administration Date TDAP (BOOSTRIX) 2016 Summary Purpose eClinicalWorks Submission
--- OUTSIDE RECORDS SUMMARY | 2018-01-29 19:38 | XMS REPORT | Continuity of Care Document ---
Author Author On License Of [facility] Address Unknown Phone Unavailable Allergies Active Description Code Type Severity Reaction Onset Reported/Identified Relationship to Patient Clinical Status Yes metronidazole [id number] Drug Allergy Mild HIVES 11/01/2006 Yes Flagyl Drug Allergy N/A N/A 09/23/2013 Yes Lyrica Drug Allergy N/A N/A 09/23/2013 Yes lisinopril 20 mg tablet Drug Allergy N/A N/A 03/03/2014 Medications There is no data. Problems Date Dx Coded Attending Type Code Diagnosis Diagnosed By 09/23/2013 CNADE MAYA DO 338.29 PAIN - CHRONIC 09/23/2013 CANDE MAYA DO 401.1 HYPERTENSION, BENIGN ESSENTIAL 09/23/2013 ASHVIN ROBERTS MD 338.29 PAIN - CHRONIC 09/23/2013 ASHVIN ROBERTS MD 401.1 HYPERTENSION, BENIGN ESSENTIAL 09/23/2013 ASHVIN ROBERTS MD 338.29 PAIN - CHRONIC 09/23/2013 ASHVIN ROBERTS MD 401.1 HYPERTENSION, BENIGN ESSENTIAL 09/23/2013 CANDE MAYA DO 338.29 PAIN - CHRONIC 09/23/2013 CANDE MAYA DO 401.1 HYPERTENSION, BENIGN ESSENTIAL 09/23/2013 ASHVIN ROBERTS MD 338.29 PAIN - CHRONIC 09/23/2013 ASHVIN ROBERTS MD 401.1 HYPERTENSION, BENIGN ESSENTIAL 09/23/2013 ASHVIN ROBERTS MD 338.29 PAIN - CHRONIC 09/23/2013 ASHVIN ROBERTS MD 401.1 HYPERTENSION, BENIGN ESSENTIAL 09/23/2013 ASHVIN ROBERTS MD 338.29 PAIN - CHRONIC 09/23/2013 ASHVIN ROBERTS MD 401.1 HYPERTENSION, BENIGN ESSENTIAL 09/23/2013 SAUL DIOP PHD 338.29 PAIN - CHRONIC 09/23/2013 SAUL DIOP PHD 401.1 HYPERTENSION, BENIGN ESSENTIAL 09/23/2013 ASHVIN ROBERTS MD N 338.29 PAIN - CHRONIC 09/23/2013 ASHVIN ROBERTS MD N 401.1 HYPERTENSION, BENIGN ESSENTIAL 09/23/2013 ASHVIN ROBERTS MD N 338.29 PAIN - CHRONIC 09/23/2013 ASHVIN ROBERTS MD N 401.1 HYPERTENSION, BENIGN ESSENTIAL 09/23/2013 DORINA MOSES MD 338.29 PAIN - CHRONIC 09/23/2013 DORINA MOSES MD 401.1 HYPERTENSION, BENIGN ESSENTIAL 09/23/2013 MAGALYS PUTTY MIXER AND APPLIER, LISETH 338.29 PAIN - CHRONIC 09/23/2013 MAGALYS PUTTY MIXER AND APPLIER, LISETH 401.1 HYPERTENSION, BENIGN ESSENTIAL 09/23/2013 ASHVIN ROBERTS MD N 338.29 PAIN - CHRONIC 09/23/2013 ASHVIN ROBERTS MD N 401.1 HYPERTENSION, BENIGN ESSENTIAL 09/23/2013 MAGALYS PUTTY MIXER AND APPLIER, LISETH 338.29 PAIN - CHRONIC 09/23/2013 MAGALYS PUTTY MIXER AND APPLIER, LISETH 401.1 HYPERTENSION, BENIGN ESSENTIAL 09/23/2013 ASHVIN ROBERTS MD N 338.29 PAIN - CHRONIC 09/23/2013 ASHVIN ROBERTS MD N 401.1 HYPERTENSION, BENIGN ESSENTIAL 09/23/2013 MAGALYS PUTTY MIXER AND APPLIER, LISETH 338.29 PAIN - CHRONIC 09/23/2013 MAGALYS PUTTY MIXER AND APPLIER, LISETH 401.1 HYPERTENSION, BENIGN ESSENTIAL 09/23/2013 MAYA DO, CANDE K 338.29 PAIN - CHRONIC 09/23/2013 MAYA DO, CANDE K 401.1 HYPERTENSION, BENIGN ESSENTIAL 09/23/2013 ASHVIN ROBERTS MD N 338.29 PAIN - CHRONIC 09/23/2013 ASHVIN ROBERTS MD N 401.1 HYPERTENSION, BENIGN ESSENTIAL 09/23/2013 ASHVIN ROBERTS MD N 338.29 PAIN - CHRONIC 09/23/2013 ASHVIN ROBERTS MD N 401.1 HYPERTENSION, BENIGN ESSENTIAL 09/23/2013 MAGALYS PUTTY MIXER AND APPLIER, LISETH 338.29 PAIN - CHRONIC 09/23/2013 MAGALYS PUTTY MIXER AND APPLIER, LISETH 401.1 HYPERTENSION, BENIGN ESSENTIAL 09/23/2013 ASHVIN ROBERTS MD N 338.29 PAIN - CHRONIC 09/23/2013 ASHVIN ROBERTS MD N 401.1 HYPERTENSION, BENIGN ESSENTIAL 09/23/2013 ASHVIN ROBERTS MD N 338.29 PAIN - CHRONIC 09/23/2013 ASHVIN ROBERTS MD 401.1 HYPERTENSION, BENIGN ESSENTIAL 11/04/2013 ASHVIN ROBERTS MD 311 DEPRESSIVE DISORDER NOT ELSEWHERE CLASSIFIED 11/04/2013 ASHVIN ROBERTS MD 311 DEPRESSIVE DISORDER NOT ELSEWHERE CLASSIFIED 11/04/2013 MAYA CANDE K 311 DEPRESSIVE DISORDER NOT ELSEWHERE CLASSIFIED 11/04/2013 ASHVIN ROBERTS MD N 311 DEPRESSIVE DISORDER NOT ELSEWHERE CLASSIFIED 11/04/2013 ASHVIN ROBERTS MD 311 DEPRESSIVE DISORDER NOT ELSEWHERE CLASSIFIED 11/04/2013 ASHVIN ROBERTS MD 311 DEPRESSIVE DISORDER NOT ELSEWHERE CLASSIFIED 11/04/2013 CHIKIS POLANCO, SAUL Michel 311 DEPRESSIVE DISORDER NOT ELSEWHERE CLASSIFIED 11/04/2013 ASHVIN ROBERTS MD 311 DEPRESSIVE DISORDER NOT ELSEWHERE CLASSIFIED 11/04/2013 ASHVIN ROBERTS MD 311 DEPRESSIVE DISORDER NOT ELSEWHERE CLASSIFIED 11/04/2013 DORINA MOSES MD 311 DEPRESSIVE DISORDER NOT ELSEWHERE CLASSIFIED 11/04/2013 MAGALYS PUTTY MIXER AND APPLIER, LISETH 311 DEPRESSIVE DISORDER NOT ELSEWHERE CLASSIFIED 11/04/2013 ASHVIN ROBERTS MD 311 DEPRESSIVE DISORDER NOT ELSEWHERE CLASSIFIED 11/04/2013 MAGALYS PUTTY MIXER AND APPLIER LISETH 311 DEPRESSIVE DISORDER NOT ELSEWHERE CLASSIFIED 11/04/2013 ASHVIN ROBERTS MD 311 DEPRESSIVE DISORDER NOT ELSEWHERE CLASSIFIED 11/04/2013 MAGALYS PUTTY MIXER AND APPLIER, LISETH 311 DEPRESSIVE DISORDER NOT ELSEWHERE CLASSIFIED 11/04/2013 MAYA DO CANDE K 311 DEPRESSIVE DISORDER NOT ELSEWHERE CLASSIFIED 11/04/2013 ASHVIN ROBERTS MD N 311 DEPRESSIVE DISORDER NOT ELSEWHERE CLASSIFIED 11/04/2013 ASHVIN ROBERTS MD 311 DEPRESSIVE DISORDER NOT ELSEWHERE CLASSIFIED 11/04/2013 MAGALYS PUTTY MIXER AND APPLIER, LISETH 311 DEPRESSIVE DISORDER NOT ELSEWHERE CLASSIFIED 11/04/2013 ASHVIN ROBERTS MD 311 DEPRESSIVE DISORDER NOT ELSEWHERE CLASSIFIED 11/04/2013 ASHVIN ROBERTS MD 311 DEPRESSIVE DISORDER NOT ELSEWHERE CLASSIFIED 11/05/2013 LASHAWN WHITTINGTON MD Ot 276.8 HYPOPOTASSEMIA 11/05/2013 LASHAWN WHITTINGTON MD Ot 300.00 ANXIETY STATE NOS 11/05/2013 LASHAWN WHITTINGTON MD Ot 305.1 TOBACCO USE DISORDER 11/05/2013 LASHAWN WHITTINGTON MD Ot 401.9 HYPERTENSION NOS 11/05/2013 LASHAWN WHITTINGTON MD Ot 414.01 CORONARY ATHEROSCLEROSIS OF [place] CORON 11/05/2013 LASHAWN WHITTINGTON MD Ot 786.50 CHEST PAIN NOS 11/05/2013 LASHAWN WHITTINGTON MD Ot 794.30 ABN CARDIOVASC STUDY NOS 11/05/2013 LASHAWN WHITTINGTON MD Ot V45.86 BARIATRIC SURGERY STATUS 11/05/2013 LASHAWN WHITTINGTON MD Ot V58.69 OTH MED,LT,CURRENT USE 12/05/2013 MAYA DO CANDE K 305.1 TOBACCO ABUSE 12/05/2013 MAYA DO, CANDE K 414.00 CAD 12/05/2013 ASHVIN ROBERTS MD N 305.1 TOBACCO ABUSE 12/05/2013 ASHVIN ROBERTS MD 414.00 CAD 12/05/2013 ASHVIN ROBERTS MD N 305.1 TOBACCO ABUSE 12/05/2013 ASHVIN ROBERTS MD N 414.00 CAD 12/05/2013 ASHVIN ROBERTS MD N 305.1 TOBACCO ABUSE 12/05/2013 ASHVIN ROBERTS MD N 414.00 CAD 12/05/2013 CHIKIS PHD, SAUL Michel 305.1 TOBACCO ABUSE 12/05/2013 CHIKIS PHD, SAUL Michel 414.00 CAD 12/05/2013 ASHVIN ROBERTS MD 305.1 TOBACCO ABUSE 12/05/2013 ASHVIN ROBERTS MD N 414.00 CAD 12/05/2013 ASHVIN ROBERTS MD N 305.1 TOBACCO ABUSE 12/05/2013 ASHVIN ROBERTS MD N 414.00 CAD 12/05/2013 DORINA MOSES MD 305.1 TOBACCO ABUSE 12/05/2013 DORINA MOSES MD 414.00 CAD 12/05/2013 LISETH DOWELL APRN 305.1 TOBACCO ABUSE 12/05/2013 STEPHANIE DOWELL APRNETTE 414.00 CAD 12/05/2013 ASHVIN ROBERTS MD 305.1 TOBACCO ABUSE 12/05/2013 ASHVIN ROBERTS MD N 414.00 CAD 12/05/2013 LISETH DOWELL APRN 305.1 TOBACCO ABUSE 12/05/2013 STEPHANIE DOWELL APRNETTE 414.00 CAD 12/05/2013 ASHVIN ROBERTS MD N 305.1 TOBACCO ABUSE 12/05/2013 ASHVIN ROBERTS MD N 414.00 CAD 12/05/2013 MAGALYS PUTTY MIXER AND APPLIER, LISETH 305.1 TOBACCO ABUSE 12/05/2013 MAGALYS PUTTY MIXER AND APPLIER, LISETH 414.00 CAD 12/05/2013 MAYA FABIANA NELOSNA K 305.1 TOBACCO ABUSE 12/05/2013 MAYA DO, CANDE K 414.00 CAD 12/05/2013 ASHVIN ROBERTS MD N 305.1 TOBACCO ABUSE 12/05/2013 ASHVIN ROBERTS MD N 414.00 CAD 12/05/2013 ASHVIN ROBERTS MD N 305.1 TOBACCO ABUSE 12/05/2013 ASHVIN ROBERTS MD N 414.00 CAD 12/05/2013 MAGALYS PUTTY MIXER AND APPLIER, LISETH 305.1 TOBACCO ABUSE 12/05/2013 MAGALYS PUTTY MIXER AND APPLIER, LISETH 414.00 CAD 12/05/2013 ASHVIN ROBERTS MD N 305.1 TOBACCO ABUSE 12/05/2013 ASHVIN ROBERTS MD N 414.00 CAD 12/05/2013 ASHVIN ROBERTS MD 305.1 TOBACCO ABUSE 12/05/2013 ASHVIN ROBERTS MD N 414.00 CAD 02/26/2014 CHIKIS PHD, SAUL Michel 296.90 MOOD DISORDER NOS 02/26/2014 ASHVIN ROBERTS MD N 296.90 MOOD DISORDER NOS 02/26/2014 ASHVIN ROBERTS MD 296.90 MOOD DISORDER NOS 02/26/2014 DORINA MOSES MD 296.90 MOOD DISORDER NOS 02/26/2014 MAGALYS PUTTY MIXER AND APPLIER, LISETH 296.90 MOOD DISORDER NOS 02/26/2014 ASHVIN ROBERTS MD 296.90 MOOD DISORDER NOS 02/26/2014 MAGALYS PUTTY MIXER AND APPLIER, LISETH 296.90 MOOD DISORDER NOS 02/26/2014 ASHVIN ROBERTS MD N 296.90 MOOD DISORDER NOS 02/26/2014 MAGALYS PUTTY MIXER AND APPLIER, LISETH 296.90 MOOD DISORDER NOS 02/26/2014 MAYA DO, CANDE K 296.90 MOOD DISORDER NOS 02/26/2014 ASHVIN ROBERTS MD N 296.90 MOOD DISORDER NOS 02/26/2014 ASHVIN ROBERTS MD 296.90 MOOD DISORDER NOS 02/26/2014 MAGALYS MAEVE, LISETH 296.90 MOOD DISORDER NOS 02/26/2014 ASHVIN ROBERTS MD N 296.90 MOOD DISORDER NOS 02/26/2014 ASHVIN ROBERTS MD N 296.90 MOOD DISORDER NOS 06/19/2014 MAGALYS MCFARLANE, LISETH 296.89 MO BIPOLAR II 06/19/2014 ASHVIN ROBERTS MD N 296.89 MO BIPOLAR II 06/19/[address] MAGALYS MFCARLANE, LISETH 296.89 MO BIPOLAR II 06/19/2014 FABIANA MAYA DOA K 296.89 MO BIPOLAR II 06/19/2014 ASHVIN ROBERTS MD N 296.89 MO BIPOLAR II 06/19/2014 ASHVIN ROBERTS MD 296.89 MO BIPOLAR II 06/19/2014 LISETH DOWELL APRN 296.89 MO BIPOLAR II 06/19/2014 ASHVIN ROBERTS MD N 296.89 MO BIPOLAR II 06/19/2014 ASHVIN ROBERTS MD 296.89 MO BIPOLAR II 2014 FABIANA MAYA DOA K 272.4 HYPERLIPIDEMIA 2014 FRANCESCO NELSON CANDE K 401.9 HYPERTENSION, UNSPECIFIED ESSENTIAL 2014 ASHVIN ROBERTS MD N 272.4 HYPERLIPIDEMIA 2014 ASHVIN ROBERTS MD N 401.9 HYPERTENSION, UNSPECIFIED ESSENTIAL 2014 ASHVIN ROBERTS MD N 272.4 HYPERLIPIDEMIA 2014 ASHVIN ROBERTS MD N 401.9 HYPERTENSION, UNSPECIFIED ESSENTIAL 2014 LISETH DOWELL APRN 272.4 HYPERLIPIDEMIA 2014 LISETH DOWELL APRN 401.9 HYPERTENSION, UNSPECIFIED ESSENTIAL 2014 ASHVIN ROBERTS MD N 272.4 HYPERLIPIDEMIA 2014 ASHVIN ROBERTS MD N 401.9 HYPERTENSION, UNSPECIFIED ESSENTIAL 2014 ASHVIN ROBERTS MD N 272.4 HYPERLIPIDEMIA 2014 ASHVIN ROBERTS MD N 401.9 HYPERTENSION, UNSPECIFIED ESSENTIAL 09/15/2014 ASHVIN ROBERTS MD V65.42 COUNSELING - SMOKING CESSATION 09/15/2014 ASHVIN ROBERTS MD N V72.31 PHARMACEUTICAL PLANT OPERATOR EXAM, ROUTINE 09/15/2014 ASHVIN ROBETRS MD V76.10 BREAST CANCER SCREENING 09/15/2014 LISETH DOWELL APRN V65.42 COUNSELING - SMOKING CESSATION 09/15/2014 LISETH DOWELL APRN V72.31 PHARMACEUTICAL PLANT OPERATOR EXAM, ROUTINE 09/15/2014 LISETH DOWELL APRN V76.10 BREAST CANCER SCREENING 09/15/2014 ASHVIN ROBERTS MD V65.42 COUNSELING - SMOKING CESSATION 09/15/2014 ASHVIN ROBERTS MD V72.31 PHARMACEUTICAL PLANT OPERATOR EXAM, ROUTINE 09/15/2014 ASHVIN ROBERTS MD V76.10 BREAST CANCER SCREENING 09/15/2014 ASHVIN ROBERTS MD V65.42 COUNSELING - SMOKING CESSATION 09/15/2014 ASHVIN ROBERTS MD V72.31 PHARMACEUTICAL PLANT OPERATOR EXAM, ROUTINE 09/15/2014 ASHVIN ROBERTS MD V76.10 BREAST CANCER SCREENING 10/21/2014 NEEMA GODOY APRN Ot V76.12 11/17/2014 MARIO GUZMÁN, IONA Guajardo Ot 455.0 11/17/2014 MARIO GUZMÁN, IONA Guajardo Ot 562.10 12/11/2014 ASHVIN ROBERTS MD N 461.9 SINUSITIS ACUTE 12/11/2014 ASHVIN ROBERTS MD 461.9 SINUSITIS ACUTE 03/12/2015 ASHVIN ROBERTS MD N 300.02 GENERALIZED ANXIETY DISORDER 03/12/2015 ARMANDO GUZMÁN, ASHVIN N 780.79 FATIGUE 02/03/2016 MARIO GUZMÁN, IONA Guajardo Ot 455.0 02/03/2016 MARIO GUZMÁN, IONA Guajardo Ot 562.10 02/03/2016 MARIO GUZMÁN, IONA Guajardo Ot V72.84 02/03/2016 NEEMA GODOY PUTTY MIXER AND APPLIER Ot V76.12 02/07/2016 ARMANDO GUZMÁN, ASHVIN Jaffe Ot M25.511 02/07/2016 ARMANDO GUZMÁN, ASHVIN N Ot M81.0 02/29/2016 ASHVIN ROBERTS MD Ot M25.511 02/29/2016 ASHVIN ROBERTS MD Ot M81.0 09/14/2016 MARIO GUZMÁN, IONA Guajardo Ot 455.0 INT HEMORRHOID W/O COMPL 09/14/2016 MARIO GUZMÁN, IONA Guajardo Ot 562.10 DIVERTICULOSIS COLON (W/O MENT OF HEMORR 09/14/2016 MARIO GUZMÁN, IONA Guajardo Ot V72.84 EXAM PRE-OPERATIVE NOS 09/14/2016 NEEMA GODOY PUTTY MIXER AND APPLIER Ot V76.12 OT SCREEN MAMMO-MALIGN NEOPLASM OF [place] 09/14/2016 ASHVIN ROBERTS MD Ot M25.511 PAIN IN RIGHT SHOULDER 09/14/2016 ASHVIN ROBERTS MD Ot M81.0 AGE-RELATED OSTEOPOROSIS W/O CURRENT PAT 09/14/2016 ASHVIN ROBERTS MD Ot Z12.31 ENCNTR SCREEN MAMMOGRAM FOR MALIGNANT NE 09/14/2016 ASHVIN ROBERTS MD Ot Z12.31 ENCNTR SCREEN MAMMOGRAM FOR MALIGNANT NE 09/15/2016 ASHVIN ROBERTS MD, Ot Z12.31 ENCNTR SCREEN MAMMOGRAM FOR MALIGNANT NE 09/19/2016 ASHVIN ROBERTS MD, Ot Z12.31 ENCNTR SCREEN MAMMOGRAM FOR MALIGNANT NE 09/20/2016 ASHVIN ROBERTS MD Ot Z12.31 ENCNTR SCREEN MAMMOGRAM FOR MALIGNANT NE 09/25/2016 ASHVIN ROBERTS MD, Ot Z12.31 ENCNTR SCREEN MAMMOGRAM FOR MALIGNANT NE Procedures Code [place] [address] STRESS TEST, CARDIAC ( SPECIFY TYPE) 11/04/2013 Cardiolog Lashawn Whittington 11/04/2013 96041 PSYCH DIAGNOSTIC EVALUATION 11/28/2013 J3420 cyanocobalamin (vitamin B-12 ) 1,000 mcg/mL solution 11/28/2013 03938 URINE DRUG SCREEN (IN-HOUSE ) 11/28/2013 29215 THERAPUTIC INJ SQ/IM 12/05/2013 92178 THERAPUTIC INJ SQ/IM 12/05/2013 PHYSICAL PHYSICAL THERAPY, [facility]IA [facility] 01/06/2014 91544 PSYTX PT&/FAMILY 30 MINUTES 02/26/2014 2000F BLOOD PRESSURE CHECK 03/06/2014 78798 [employer] 06/05/2014 73437 ROUTINE VENIPUNCTURE 09/15/2014 14609 MAMMOGRAM, SCREENING 09/15/2014 86538 CMP 09/15/2014 87033 LIPID PANEL 09/15/2014 85385 [employer] 12/11/2014 55217 ROUTINE VENIPUNCTURE 03/12/2015 98157 CBC 03/12/2015 52842 TSH 03/12/2015 Results There is no data. Encounters ACCT No. Visit Date/Time Discharge Status Pt. Type Provider Facility Loc./Unit Complaint [id number] 03/12/2015 14:20:00 03/12/2015 23:59:59 CLS Outpatient ASHVIN ROBERTS MD [id number] 12/11/2014 14:17:00 12/11/2014 23:59:59 CLS Outpatient ASHVIN ROBERTS MD [id number] 10/20/2014 10:56:00 10/20/2014 23:59:59 CLS Outpatient LISETH DOWELL APRN [id number] 09/15/2014 09:20:00 09/15/2014 23:59:59 CLS Outpatient ASHVIN ROBERTS MD [id number] 09/08/2014 10:33:00 09/08/2014 23:59:59 CLS Outpatient ASHVIN ROBERTS MD [id number] 2014 10:12:00 2014 23:59:59 CLS Outpatient CANDE MAYA DO [id number] 07/02/2014 10:33:00 07/02/2014 23:59:59 CLS Outpatient ASHVIN ROBERTS MD [id number] 06/19/2014 16:34:00 06/19/2014 23:59:59 CLS Outpatient LISETH DOWELL APRN [id number] 06/19/2014 16:34:00 06/19/2014 23:59:59 CLS Outpatient LISETH DOWELL APRN [id number] 06/05/2014 10:53:00 06/05/2014 23:59:59 CLS Outpatient ASHVIN ROBERTS MD [id number] 04/02/2014 15:49:00 04/02/2014 23:59:59 CLS Outpatient DORINA MOSES MD [id number] 04/02/2014 15:49:00 04/02/2014 23:59:59 CLS Outpatient LISETH DOWELL APRN [id number] 03/06/2014 13:07:00 03/06/2014 23:59:59 CLS Outpatient ASHVIN ROBERTS MD [id number] 03/03/2014 15:37:00 03/03/2014 23:59:59 CLS Outpatient ASHVIN ROBERTS MD [id number] 02/26/2014 14:35:00 02/26/2014 23:59:59 CLS Outpatient CHIKIS POLANCO, SAUL Michel [id number] 02/03/2014 13:51:00 02/03/2014 23:59:59 CLS Outpatient ASHVIN ROBERTS MD [id number] 01/06/2014 14:15:00 01/06/2014 23:59:59 CLS Outpatient ASHVIN ROBERTS MD [id number] 12/05/2013 08:56:00 12/05/2013 23:59:59 CLS Outpatient CANDE MAYA DO [id number] 11/28/2013 10:28:00 11/28/2013 23:59:59 CLS Outpatient ASHVIN ROBERTS MD [id number] 11/28/2013 10:28:00 11/28/2013 23:59:59 CLS Outpatient ASHVIN ROBERTS MD [id number] 11/04/2013 09:19:00 11/04/2013 23:59:59 CLS Outpatient ASHVIN ROBERTS MD [id number] 09/23/2013 14:16:00 09/23/2013 23:59:59 CLS Outpatient CANDE MAYA DO [id number] 09/14/2016 14:29:00 09/14/2016 23:59:59 CLS Outpatient ASHVIN ROBERTS MD [facility] RAD SCREENING [id number] 03/31/2016 13:34:00 03/31/2016 23:59:59 CLS Preadmit PIERRE FISCHER PUTTY MIXER AND APPLIER [facility] REHAB [id number] 02/03/2016 09:33:00 02/03/2016 23:59:59 CLS Outpatient ASHVIN ROBERTS MD [facility] RAD RIGHT SHOULDER PAIN [id number] 10/01/2014 10:25:00 10/01/2014 23:59:59 CLS Outpatient NEEMA GODOY PUTTY MIXER AND APPLIER [facility] RAD ROUTINE [id number] 06/08/2014 11:59:00 06/08/2014 23:59:59 CLS Outpatient IONA MARTIN MD [facility] SDC RECTAL BLEEDING [id number] 06/03/2014 07:27:00 06/03/2014 23:59:59 CLS Outpatient IONA MARTIN MD [facility] PREOP RECTAL BLEEDING [id number] 11/05/2013 01:00:00 11/05/2013 17:45:00 DIS Outpatient TABBY GUZMÁN, LASHAWN Jones [facility] CATH CHEST PAIN [id number] 01/29/2018 19:30:00 ACT Emergency ABRAN MEJIA DO [facility] ER CP, HIGH BP
[2018-01-29] MEDS ORDERED: ASPIRIN 81 MG CHEW (CHILDREN'S ASA) PO ONE (19:45)
[2018-01-29] MEDS ORDERED: NITROGLYCERIN 2% OINT 1 GM UNIT DOSE PACKET TOP ONE (19:45)
--- NOTE | 2018-01-29 19:50 | ED Chest Pain ---
General Chief Complaint: Chest Pain Stated Complaint: CP, HIGH BP Nursing Triage Note: pt co CP onset 1800 this evening but states ti has been intermittent for aprox 1 month. Nursing Sepsis Screen: No Definite Risk Source: patient Exam Limitations: no limitations History of Present Illness Date Seen by Provider: Jan 29, 2018 Time Seen by Provider: 19:32 Initial Comments PT ARRIVES VIA POV FROM HOME C/O LEFT CHEST PAIN OFF AND ON FOR 2-3 WEEKS, BUT HAS BEEN CONSTANT AND MORE INTENSE SINCE 1800 TODAY PAIN HAS BEEN 2-3/10 FOR THE LAST 2-3 WEEKS, BUT RATES 5/10 NOW NO SHORTNESS OF BREATH NO SWELLING IN LEGS/ FEET OR PAIN IN CALVES NO PALPITATIONS NO DIZZINESS NO SWEATS NO NAUSEA/VOMITING NO RADIATION OF PAIN NOTHING WORSENS OR IMPROVES PAIN NO FEVER, COUGH OR RECENT ILLNESS PT HAS HISTORY OF COPD, BUT DOES NOT USE AN INHALER/NEBULIZER OR HOME O2 PT HAS HTN --TOOK LISINOPRIL AT 1815 TODAY AND 81 MG ASPIRIN TODAY. PT STATES SHE USED TO ALSO BE ON NORVASC, BUT IT WAS DC'D SOME TIME AGO DUE TO SIDE EFFECTS. PT HAD NORMAL CARDIAC CATH IN 2012, BY DR. MCNAIR, BUT HAS NEVER HAD TO FOLLOW UP WITH HIM PT SAW DR. ROBERTS IN CLINIC TODAY FOR ROUTINE EXAM, BUT DID NOT MENTION THE CHEST PAIN SHE HAS BEEN HAVING GOT STEROID INJECTION IN HER SHOULDER TODAY, AND WAS STARTED ON NEW ANTIDEPRESSANT, BUT HAS NOT TAKEN ANY OF IT YET. PT STATES BP IN OFFICE WAS 164/106 TODAY PT TAKES MORPHINE AND OXYCODONE DAILY FOR CHRONIC BACK PAIN, BUT HAS NOT TAKEN EITHER SINCE 10:30 THIS AM. PT CONTINUES TO SMOKE UP TO 3 PPD, AND SMOKES MARIJUANA PCP: DR. ROBERTS AT [facility] Allergies and Home Medications Allergies Coded Allergies: metronidazole (Unverified Allergy, Mild, HIVES, 11/01/06) duloxetine (Verified Allergy, Unknown, 01/29/18) ibuprofen (Verified Allergy, Unknown, 01/29/18) pregabalin (Verified Allergy, Unknown, 01/29/18) Home Medications Amlodipine Besylate 5 Mg Tablet, 5 MG PO BID, (Reported) Aspirin 81 Mg Tabec, 81 MG PO DAILY, (Reported) Cyanocobalamin 1,000 Mcg/Ml Vial, 1,000 MCG IJ MONTHLY, (Reported) Estrogens,Conjugated 0.9 Mg Tablet, 0.9 MG PO DAILY Prescribed by: DANA PADILLA on 11/05/13 0158 Fluoxetine Hcl 40 Mg Capsule, 1 EACH PO DAILY, (Reported) Hydrochlorothiazide 25 Mg Tab, 25 MG PO DAILY, (Reported) Ibuprofen 800 Mg Tab, 800 MG PO TID Prescribed by: DANA PADILLA on 11/05/13 0147 Ipratropium/Albuterol Sulfate Unknown Strength Aer.w.adap, 20-100 MCG IH QID, ( Reported) Lisinopril 20 Mg Tablet, 20 MG PO DAILY, (Reported) Morphine Sulfate 30 Mg Cap.er.pel, 30 MG PO BID, (Reported) Omeprazole 20 Mg Capsule.dr, 20 MG PO DAILY, (Reported) Oxycodone Hcl/Acetaminophen 1 Each Tablet, 1 EACH PO Q6H PRN for Breakthrough Pain, (Reported) Potassium Chloride 10 Meq Tab.prt.sr, 1 EACH PO DAILY WITH MEAL Prescribed by: DIVYA WILKS on 11/05/13 1441 Tizanidine Hcl 2 Mg Capsule, 2 MG PO Q6H PRN for SPASMS, (Reported) Patient Home Medication List Home Medication List Reviewed: Yes Review of Systems Constitutional: no symptoms reported, No chills, No diaphoresis, No dizziness, No fever EENTM: No Symptoms Reported Respiratory: No Symptoms Reported Cardiovascular: See HPI, Chest Pain, Denies Edema, Denies Irregular Heart Rate , Denies Lightheadedness, Denies Palpitations, Denies Other Gastrointestinal: No Symptoms Reported Genitourinary: No Symptoms Reported Musculoskeletal: no symptoms reported (HAS CHRONIC LOWER BACK PAIN, BUT DOES NOT COMPLAIN OF IT AT THIS TIME) Skin: no symptoms reported Psychiatric/Neurological: No Symptoms Reported Endocrine: No Symptoms Reported Hematologic/Lymphatic: No Symptoms Reported Past Uolvyiv-Rluyhb-Ewtdud Hx Patient Social History Alcohol Use: Occasionally Uses Recreational Drug Use: Yes (THC) Drug of Choice: THC Smoking Status: Current Everyday Smoker (UP TO 3 PPD) Type Used: Cigarettes (UP TO 3 PPD) Recent Foreign Travel: No Contact w/Someone Who Travel: No Recent Infectious Disease Expo: No Immunizations Up To Date Tetanus Booster (TDap): More than 5yrs Surgeries History of Surgeries: Yes (RIGHT WRIST FX/ORIF; LEFT ANKLE FX/ORIF; BILATERAL CARPAL TUNNEL; GASTRIC BYPASS; COLONOSCOPY; HYST/BSO; CARDIAC CATH 2012--NO INTERVENTION) Surgeries: Abdominal, Adenoidectomy, Cardiac, Gallbladder, 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, Oophorectomy, Orthopedic, Tonsillectomy Respiratory History of Respiratory Disorde: Yes Respiratory Disorders: Asthma, COPD Cardiovascular History of Cardiac Disorders: Yes Cardiac Disorders: 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, Hypertension Neurological History of Neurological Disord: No 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, 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 Genitourinary History of Genitourinary Disor: Yes (CHRONIC RENAL INSUFFICIENCY) Gastrointestinal History of Gastrointestinal Di: Yes Gastrointestinal Disorders: Gastroesophageal Reflux, Chronic Constipation Musculoskeletal History of Musculoskeletal Dis: Yes ("DISABLED" FOR CHRONIC LOWER BACK PAIN-- NARCOTIC DEPENDENT ON MORPHINE AND OXYCODONE ) Musculoskeletal Disorders: Chronic Back Pain, Fractures Endocrine History of Endocrine Disorders: No HEENT History of HEENT Disorders: No Cancer History of Cancer: No Psychosocial History of Psychiatric Problem: Yes Behavioral Health Disorders: Anxiety, Depression Integumentary History of Skin or Integumenta: No Blood Transfusions History of Blood Disorders: No Family Medical History Family Medial History: Cancer 03 FATHER Cataract 03 FATHER 03 MOTHER Chest pain 03 FATHER Congestive heart failure 03 FATHER Family history: Arthritis 03 FATHER 03 MOTHER 09 BROTHER Family history: Cardiovascular disease 03 FATHER Family history: Diabetes mellitus 03 FATHER 09 BROTHER Family history: Hypertension 03 FATHER 03 MOTHER 09 BROTHER Family history: Osteoporosis 03 MOTHER 09 BROTHER Headache 03 FATHER 03 MOTHER 09 BROTHER Hearing loss 03 FATHER Heart disease 03 FATHER History of - anemia 09 BROTHER History of - respiratory disease 03 FATHER History of drug abuse 09 BROTHER Hypercholesterolemia 03 FATHER Visual impairment 03 FATHER 03 MOTHER 09 BROTHER No Family History of: Abdominal aortic aneurysm Roni's disease Alcoholism Aphasia Cancer of colon Congenital heart disease Cystic fibrosis Dementia Dysphagia Family history: Allergy Family history: Alzheimer's disease Family history: Asthma Family history: Breast disease Family history: Coronary thrombosis Family history: Gastrointestinal disease Family history: Glaucoma Family history: Thyroid disorder Hereditary disease History of - disorder Human immunodeficiency virus (HIV) seropositivity Infertile Kidney disease Malignant neoplasm of lung Myocardial infarction Parkinson's disease Prostate cancer Psychotic disorder Seizure disorder Stroke Tuberculosis Physical Exam Vital Signs Vital Signs - First Documented 01/29/18 01/29/18 19:36 21:00 Temp 97.2 Pulse 78 Resp 20 B/P (MAP) 185/108 (133) Pulse Ox 95 O2 Delivery Room Air Capillary Refill : Less Than 3 Seconds General Appearance: No Apparent Distress, WD/WN, Other (REEKS OF CIGARETTES) Neck: Full Range of Motion, Normal Inspection, Non Tender, Supple, No Carotid Bruit, No JVD Respiratory: Normal Breath Sounds, No Accessory Muscle Use, No Respiratory Distress Cardiovascular: Regular Rate, Rhythm, No Edema, No JVD, No Murmur, Normal Peripheral Pulses Gastrointestinal: Non Tender, Soft Extremity: Normal Capillary Refill, Normal Inspection, Normal Range of Motion, Non Tender, No Calf Tenderness, No Pedal Edema Neurologic/Psychiatric: Alert, Oriented x3, No Motor/Sensory Deficits, Normal Mood/Affect, debit agent II-XII Norm as Tested Skin: Normal Color, Warm/Dry Progress/Results/Core Measures Results/Orders Lab Results Laboratory Tests Test 01/29/18 19:44 01/29/18 20:34 Range/Units White Blood Count 7.3 4.3-11.0 10^3/uL Red Blood Count 4.16 L 4.35-5.85 10^6/uL Hemoglobin 13.2 11.5-16.0 G/DL Hematocrit 39 35-52 % Mean Corpuscular Volume 95 80-99 FL Mean Corpuscular Hemoglobin 32 25-34 PG Mean Corpuscular Hemoglobin Concent 34 32-36 G/DL Red Cell Distribution Width 12.7 10.0-14.5 % Platelet Count 313 130-400 10^3/uL Mean Platelet Volume 10.1 7.4-10.4 FL Neutrophils (%) (Auto) 94 H 42-75 % Lymphocytes (%) (Auto) 6 L 12-44 % Monocytes (%) (Auto) 0 0-12 % Eosinophils (%) (Auto) 0 0-10 % Basophils (%) (Auto) 0 0-10 % Neutrophils # (Auto) 6.8 1.8-7.8 X 10^3 Lymphocytes # (Auto) 0.4 L 1.0-4.0 X 10^3 Monocytes # (Auto) 0.0 0.0-1.0 X 10^3 Eosinophils # (Auto) 0.0 0.0-0.3 10^3/uL Basophils # (Auto) 0.0 0.0-0.1 10^3/uL Neutrophils % (Manual) 92 % Lymphocytes % (Manual) 8 % Monocytes % (Manual) 0 % Eosinophils % (Manual) 0 % Basophils % (Manual) 0 % Band Neutrophils 0 % Blood Morphology Comment NORMAL Prothrombin Time 11.7 L 12.2-14.7 SEC INR Comment 0.9 0.8-1.4 Activated Partial Thromboplast Time 35 24-35 SEC Sodium Level 140 135-145 MMOL/L Potassium Level 3.5 L 3.6-5.0 MMOL/L Chloride Level 104 98-107 MMOL/L Carbon Dioxide Level 22 21-32 MMOL/L Anion Gap 14 5-14 MMOL/L Blood Urea Nitrogen 20 H 7-18 MG/DL Creatinine 1.34 H 0.60-1.30 MG/DL Estimat Glomerular Filtration Rate 42 BUN/Creatinine Ratio 15 Glucose Level 201 H 70-105 MG/DL Calcium Level 8.8 8.5-10.1 MG/DL Magnesium Level 1.3 L 1.8-2.4 MG/DL Total Bilirubin 0.4 0.1-1.0 MG/DL Aspartate Amino Transf (AST/SGOT) 20 5-34 U/L Alanine Aminotransferase (ALT/SGPT) 17 0-55 U/L Alkaline Phosphatase 89 40-136 U/L Total Creatine Kinase 126 29-168 U/L Creatine Kinase MB 3.2 <6.6 NG/ML Troponin I < 0.30 <0.30 NG/ML B-Type Natriuretic Peptide 239.7 H <100.0 PG/ML Total Protein 6.9 6.4-8.2 GM/DL Albumin 4.0 3.2-4.5 GM/DL Amylase Level 179 H 25-125 U/L Lipase 31 8-78 U/L My Orders Orders - ABRAN MEJIA DO Amylase (01/29/18 19:33) Cbc With Automated Diff (01/29/18 19:33) Comprehensive Metabolic Panel (01/29/18 19:33) Creatine Kinase (01/29/18 19:33) Creatine Kinase Mb (01/29/18 19:33) Lipase (01/29/18 19:33) Partial Thromboplastin Time (01/29/18 19:33) Protime With Inr (01/29/18 19:33) Troponin I (01/29/18 19:33) Chest 1 View, Ap/Pa Only (01/29/18 19:33) O2 (01/29/18 19:33) Ekg Tracing (01/29/18 19:33) Aspirin Chewable Tablet (Baby Aspirin Ch (01/29/18 19:45) BNP (01/29/18 19:33) Monitor-Rhythm Ecg Trace Only (01/29/18 19:33) Magnesium (01/29/18 19:33) Nitroglycerin Ointment (Nitrobid Ointme (01/29/18 19:45) Manual Differential (01/29/18 19:44) Hemoglobin A1c (01/29/18 20:20) Metoprolol Succinate (Xl) Tab (Toprol Xl (01/29/18 21:00) Morphine Injection (Morphine Injection (01/29/18 20:46) Enoxaparin Injection (Lovenox Injection) (01/29/18 21:00) Medications Given in ED Current Medications Medications Dose Ordered Sig/Remedios Route Start Time Stop Time Status Last Admin Dose Admin Aspirin 324 mg ONCE ONCE PO 01/29/18 19:45 01/29/18 19:46 DC 01/29/18 19:54 324 MG Enoxaparin Sodium 90 mg ONCE ONCE SC 01/29/18 21:00 01/29/18 21:13 DC 01/29/18 21:31 90 MG Nitroglycerin 1 inch ONCE ONCE TOP 01/29/18 19:45 01/29/18 19:46 DC 01/29/18 19:55 1 INCH Vital Signs/I&O Vital Sign - Last 12Hours 01/29/18 01/29/18 01/29/18 19:36 21:00 21:15 Temp 97.2 97.1 Pulse 78 67 68 Resp 20 18 16 B/P (MAP) 185/108 (133) 167/108 (127) 181/107 (131) Pulse Ox 95 94 O2 Delivery Room Air Room Air Room Air O2 Flow Rate Blood Pressure Mean: 133 Progress Note : Progress Note PAIN RELIEVED AND BP DOWN WITH MEDICATIONS PT HELD AND BOARDED IN ER, NO BEDS AVAILABLE ANYWHERE IN THE HOSPITAL, ALTHOUGH TECHNICALLY ADMITTED. PT HAD NO OTHER COMPLAINTS FOR REMAINDER OF ER STAY REPEAT TROPONIN NEGATIVE AT 3 HOURS. EKG UNCHANGED. ECG Initial ECG Impression Date: Jan 29, 2018 Initial ECG Impression Time: 19:31 Initial ECG Rate: 81 Initial ECG Rhythm: Normal Sinus EKG : EKG Time: 22:51 Rate: 68 Rhythm: Normal Sinus ECG Comparisson: Unchanged Diagnostic Imaging Comments CXR--NO ACUTE PROCESS, PER RADIOLOGIST REPORT @ 2017 Reviewed: Reviewed by Me Departure Communication (Admissions) Progress Notes --PAGED/SPOKE WITH DR. SCHMITT. HE ADVISES ONE DOSE OF LOVENOX NOW. HE ALSO ADVISES TOPROL XL. HE ADVISES TO CONSULT DR. MCNAIR IN AM. 2051--SPOKE WITH DR. Job MITCHELL. ACCEPTS PT FOR ADMIT. SHE ADVISES TO HOLD ON CARDIOLOGY CONSULT UNTIL SHE SEES PT AND SHE WILL CONSULT IF NECESSARY. . SHE ALSO ADVISES NO OTHER MEDICATION FOR PAIN EXCEPT FOR PT'S ROUTINE PAIN MEDICATIONS. Impression Impression: Primary Impression: Chest pain Additional Impressions: HTN (hypertension) Hyperglycemia Tobacco abuse Disposition: ADMITTED INPATIENT Condition: Improved Admissions Decision to Admit Reason: Admit from ER (General) Decision to Admit/Date: Jan 29, 2018 Time/Decision to Admit Time: 20:50 Departure-Patient Inst. Referrals: ASHVIN ROBERTS MD (PCP/Family) Primary Care Physician ABRAN MEJIA DO Jan 29, 2018 19:50
[2018-01-29 19:53] LABS: BASOPHILS % (AUTO) 0 % (0-10); EOSINOPHILS % (AUTO) 0 % (0-10); HEMATOCRIT 39 % (35-52); HEMOGLOBIN 13.2 G/DL (11.5-16.0); LYMPHOCYTES # (AUTO) 0.4 X 10^3 (1.0-4.0); LYMPHOCYTES % (AUTO) 6 % (12-44); MEAN CORPUSCULAR HEMOGLOBIN 32 PG (25-34); MEAN CORPUSCULAR HGB CONC 34 G/DL (32-36); MEAN CORPUSCULAR VOLUME 95 FL (80-99); MEAN PLATELET VOLUME 10.1 FL (7.4-10.4); MONOCYTES % (AUTO) 0 % (0-12); NEUTROPHILS # (AUTO) 6.8 X 10^3 (1.8-7.8); NEUTROPHILS % (AUTO) 94 % (42-75); PLATELET COUNT 313 10^3/uL (130-400); RED BLOOD COUNT 4.16 10^6/uL (4.35-5.85); RED CELL DISTRIBUTION WIDTH 12.7 % (10.0-14.5); WHITE BLOOD COUNT 7.3 10^3/uL (4.3-11.0)
[2018-01-29 20:02] LABS: INR 0.9 (0.8-1.4); PROTHROMBIN TIME PATIENT 11.7 SEC (12.2-14.7)
[2018-01-29 20:11] LABS: BAND NEUTROPHILS 0 %; BASOPHILS % (MANUAL) 0 %; EOSINOPHILS % (MANUAL) 0 %; LYMPHOCYTES % (MANUAL) 8 %; MONOCYTES % (MANUAL) 0 %; NEUTROPHILS % (MANUAL) 92 %; RBC MORPH NORMAL
--- NOTE | 2018-01-29 20:15 | Diagnostic Imaging Report ---
CLINICAL INDICATION: Patient with left-sided chest pain starting today. EXAM: Portable chest x-ray upright view. COMPARISONS: Chest x-ray dated 11/04/2013. FINDINGS: Slight lobulated right hemidiaphragm is again seen. Lungs are clear. There is no pleural effusion or pneumothorax. Pulmonary vasculature and cardiac silhouette is within normal limits. There are hypertrophic spurs seen throughout the spine. IMPRESSION: There is no radiographic evidence of acute cardiopulmonary process. Dictated by: Dictated on workstation # [id number]
[2018-01-29 20:17] LABS: ALANINE AMINOTRANSFERASE 17 U/L (0-55); ALKALINE PHOSPHATASE 89 U/L (40-136); AMYLASE 179 U/L (25-125); BILIRUBIN,TOTAL 0.4 MG/DL (0.1-1.0); BUN/CREATININE RATIO 15; CALCIUM 8.8 MG/DL (8.5-10.1); CARBON DIOXIDE 22 MMOL/L (21-32); CHLORIDE 104 MMOL/L (98-107); CREATINE KINASE 126 U/L (29-168); CREATININE SERUM 1.34 MG/DL (0.60-1.30); GFR ESTIMATED 42; GLUCOSE 201 MG/DL (70-105); LIPASE 31 U/L (8-78); MAGNESIUM 1.3 MG/DL (1.8-2.4); POTASSIUM 3.5 MMOL/L (3.6-5.0); SODIUM 140 MMOL/L (135-145); TOTAL PROTEIN 6.9 GM/DL (6.4-8.2)
[2018-01-29 20:23] LABS: CREATINE KINASE MB 3.2 NG/ML (<6.6)
[2018-01-29] MEDS ORDERED: morphine INJ 10 MG/ML 1ML (SYR OR VIAL) IVP STA (20:46)
[2018-01-29] MEDS ORDERED: ENOXAPARIN 100 MG/1 ML (LOVENOX) SYR SC ONE (21:00)
[2018-01-29] MEDS ORDERED: meTOproloL SUCCINATE 50 MG (TOPROL XL) TAB PO SCH (21:00)
--- OUTSIDE RECORDS SUMMARY | 2018-01-29 21:34 | XMS REPORT | Continuity of Care Document ---
Author Author [facility] Address Unknown Phone Unavailable Allergies Active Description Code Type Severity Reaction Onset Reported/Identified Relationship to Patient Clinical Status Yes metronidazole [id number] Drug Allergy Mild HIVES 11/01/2006 Yes Flagyl Drug Allergy N/A N/A 09/23/2013 Yes Lyrica Drug Allergy N/A N/A 09/23/2013 Yes lisinopril 20 mg tablet Drug Allergy N/A N/A 03/03/2014 Yes duloxetine [id number] Drug Allergy Unknown N/A 01/29/2018 Yes ibuprofen [id number] Drug Allergy Unknown N/A 01/29/2018 Yes pregabalin [id number] Drug Allergy Unknown N/A 01/29/2018 Medications There is no data. Problems Date Dx Coded Attending Type Code Diagnosis Diagnosed By 09/23/2013 CANDE MAYA DO 338.29 PAIN - [...] MD N 401.1 HYPERTENSION, BENIGN ESSENTIAL 09/23/2013 CHIKIS PHD, SAUL Michel 338.29 PAIN - CHRONIC 09/23/2013 CHIKIS PHD, SAUL Michel 401.1 HYPERTENSION, BENIGN ESSENTIAL 09/23/2013 ARMANDO GUZMÁN, ASHVIN N 338.29 PAIN - CHRONIC 09/23/2013 ASHVIN ROBERTS MD N 401.1 HYPERTENSION, BENIGN ESSENTIAL 09/23/2013 ARMANDO GUZMÁN, ASHVIN N 338.29 PAIN - CHRONIC 09/23/2013 ARMANDO GUZMÁN, ASHVIN N 401.1 HYPERTENSION, BENIGN ESSENTIAL 09/23/2013 DORINA MOSES MD 338.29 PAIN - CHRONIC 09/23/2013 DORINA MOSES MD 401.1 HYPERTENSION, BENIGN ESSENTIAL 09/23/2013 MAGALYS STOCK COUNTER, LISETH 338.29 PAIN - CHRONIC 09/23/2013 MAGALYS STOCK COUNTER, LISETH 401.1 HYPERTENSION, BENIGN ESSENTIAL 09/23/2013 ASHVIN ROBERTS MD N 338.29 PAIN - CHRONIC 09/23/2013 ASHVIN ROBERTS MD N 401.1 HYPERTENSION, BENIGN ESSENTIAL 09/23/2013 MAGALYS STOCK COUNTER, LISETH 338.29 PAIN - CHRONIC 09/23/2013 MAGALYS STOCK COUNTER, LISETH 401.1 HYPERTENSION, BENIGN ESSENTIAL 09/23/2013 ASHVIN ROBERTS MD N 338.29 PAIN - CHRONIC 09/23/2013 ASHVIN ROBERTS MD N 401.1 HYPERTENSION, BENIGN ESSENTIAL 09/23/2013 MAGALYS STOCK COUNTER, LISETH 338.29 PAIN - CHRONIC 09/23/2013 MAGALYS STOCK COUNTER, LISETH 401.1 HYPERTENSION, BENIGN ESSENTIAL 09/23/2013 MAYA DO, CANDE K 338.29 PAIN - CHRONIC 09/23/2013 MAYA DO, CANDE K 401.1 HYPERTENSION, BENIGN ESSENTIAL 09/23/2013 ARMANDO GUZMÁN, ASHVIN N 338.29 PAIN - CHRONIC 09/23/2013 ASHVIN ROBERTS MD N 401.1 HYPERTENSION, BENIGN ESSENTIAL 09/23/2013 ASHVIN ROBERTS MD N 338.29 PAIN - CHRONIC 09/23/2013 ASHVIN ROBERTS MD N 401.1 HYPERTENSION, BENIGN ESSENTIAL 09/23/2013 MAGALYS STOCK COUNTER, LISETH 338.29 PAIN - CHRONIC 09/23/2013 MAGALYS STOCK COUNTER, LISETH 401.1 HYPERTENSION, BENIGN ESSENTIAL 09/23/2013 ASHVIN ROBERTS MD N 338.29 PAIN - CHRONIC 09/23/2013 ASHVIN ROBERTS MD 401.1 HYPERTENSION, BENIGN ESSENTIAL 09/23/2013 ASHVIN ROBERTS MD N 338.29 PAIN - CHRONIC 09/23/2013 ASHVIN ROBERTS MD N 401.1 HYPERTENSION, BENIGN ESSENTIAL 11/04/2013 ASHVIN ROBERTS MD N 311 DEPRESSIVE DISORDER NOT ELSEWHERE CLASSIFIED 11/04/2013 ASHVIN ROBERTS MD 311 DEPRESSIVE DISORDER NOT ELSEWHERE CLASSIFIED 11/04/2013 FRANCESCO DOCANDE K 311 DEPRESSIVE DISORDER NOT ELSEWHERE CLASSIFIED 11/04/2013 ASHVIN ROBERTS MD N 311 DEPRESSIVE DISORDER NOT ELSEWHERE CLASSIFIED 11/04/2013 ASHVIN ROBERTS MD 311 DEPRESSIVE DISORDER NOT ELSEWHERE CLASSIFIED 11/04/2013 ASHVIN ROBERTS MD N 311 DEPRESSIVE DISORDER NOT ELSEWHERE CLASSIFIED 11/04/2013 CHIKIS PHD, SAUL Michel 311 DEPRESSIVE DISORDER NOT ELSEWHERE CLASSIFIED 11/04/2013 ASHVIN ROBERTS MD 311 DEPRESSIVE DISORDER NOT ELSEWHERE CLASSIFIED 11/04/2013 ASHVIN ROBERTS MD N 311 DEPRESSIVE DISORDER NOT ELSEWHERE CLASSIFIED 11/04/2013 DORINA MOSES MD 311 DEPRESSIVE DISORDER NOT ELSEWHERE CLASSIFIED 11/04/2013 MAGALYS STOCK COUNTER, LISETH 311 DEPRESSIVE DISORDER NOT ELSEWHERE CLASSIFIED 11/04/2013 ASHVIN ROBERTS MD 311 DEPRESSIVE DISORDER NOT ELSEWHERE CLASSIFIED 11/04/2013 MAGALYS STOCK COUNTER, LISETH 311 DEPRESSIVE DISORDER NOT ELSEWHERE CLASSIFIED 11/04/2013 ASHVIN ROBERTS MD N 311 DEPRESSIVE DISORDER NOT ELSEWHERE CLASSIFIED 11/04/2013 MAGALYS STOCK COUNTER, LISETH 311 DEPRESSIVE DISORDER NOT ELSEWHERE CLASSIFIED 11/04/2013 MAYA DOFABIANAA K 311 DEPRESSIVE DISORDER NOT ELSEWHERE CLASSIFIED 11/04/2013 ASHVIN ROBERTS MD N 311 DEPRESSIVE DISORDER NOT ELSEWHERE CLASSIFIED 11/04/2013 ASHVIN ROBERTS MD 311 DEPRESSIVE DISORDER NOT ELSEWHERE CLASSIFIED 11/04/[address] LISETH 311 DEPRESSIVE DISORDER NOT ELSEWHERE CLASSIFIED 11/04/2013 ASHVIN ROBERTS MD N 311 DEPRESSIVE DISORDER NOT ELSEWHERE CLASSIFIED 11/04/2013 ASHVIN ROBERTS MD N 311 DEPRESSIVE DISORDER NOT ELSEWHERE CLASSIFIED 11/05/2013 LASHAWN WHITTINGTON MD Ot 276.8 HYPOPOTASSEMIA 11/05/2013 LASHAWN WHITTINGTON MD Ot 300.00 ANXIETY STATE NOS 11/05/2013 LASHAWN WHITTINGTON MD Ot 305.1 TOBACCO USE DISORDER 11/05/2013 LASHAWN WHITTINGTON MD Ot 401.9 HYPERTENSION NOS 11/05/2013 LASHAWN WHITTINGTON MD Ot 414.01 CORONARY ATHEROSCLEROSIS OF [place] CORON 11/05/2013 LASHAWN WHITTINGTON MD Ot 786.50 CHEST PAIN NOS 11/05/2013 LASHAWN WHITTINGTON MD Ot 794.30 ABN CARDIOVASC STUDY NOS 11/05/2013 LASHAWN WHITTINGTON MD Ot V45.86 BARIATRIC SURGERY STATUS 11/05/2013 LASHAWN WHITTINGTON MD Ot V58.69 OTH MED,LT,CURRENT USE 12/05/2013 MAYA FABIANA NELSONA K 305.1 TOBACCO ABUSE 12/05/2013 MAYA CANDE NELSON K 414.00 CAD 12/05/2013 ASHVIN ROBERTS MD 305.1 [...] Michel 414.00 CAD 12/05/2013 ASHVIN ROBERTS MD N 305.1 TOBACCO ABUSE 12/05/2013 ASHVIN ROBERTS MD N 414.00 CAD 12/05/2013 ASHVIN ROBERTS MD N 305.1 TOBACCO ABUSE 12/05/2013 ASHVIN ROBERTS MD N 414.00 CAD 12/05/2013 DORINA MOSES MD 305.1 TOBACCO ABUSE 12/05/2013 DORINA MOSES MD 414.00 CAD 12/05/2013 LISETH DOWELL APRN 305.1 TOBACCO ABUSE 12/05/2013 LISETH DOWELL APRN 414.00 CAD 12/05/2013 ASHVIN ROBERTS MD N 305.1 TOBACCO ABUSE 12/05/2013 ASHVIN ROBERTS MD N 414.00 CAD 12/05/2013 MAGALYS STOCK COUNTER, LISETH 305.1 TOBACCO ABUSE 12/05/2013 MAGALYS STOCK COUNTER, LISETH 414.00 CAD 12/05/2013 ASHVIN ROBERTS MD N 305.1 TOBACCO ABUSE 12/05/2013 ARMANDO GUZMÁN ASHVIN N 414.00 CAD 12/05/2013 MAGALYS STOCK COUNTER, LISETH 305.1 TOBACCO ABUSE 12/05/2013 MAGALYS STOCK COUNTER, LISETH 414.00 CAD 12/05/2013 MAYA DO, CANDE K 305.1 TOBACCO ABUSE 12/05/2013 MAYA DO, CANDE K 414.00 CAD 12/05/2013 ASHVIN ROBERTS MD N 305.1 TOBACCO ABUSE 12/05/2013 ASHVIN ROBERTS MD N 414.00 CAD 12/05/2013 ASHVIN ROBERTS MD N 305.1 TOBACCO ABUSE 12/05/2013 ASHVIN ROBERTS MD N 414.00 CAD 12/05/2013 MAGALYS STOCK COUNTER, LISETH 305.1 TOBACCO ABUSE 12/05/2013 MAGALYS STOCK COUNTER, LISETH 414.00 CAD 12/05/2013 ASHVIN ROBERTS MD N 305.1 TOBACCO ABUSE 12/05/2013 ASHVIN ROBERTS MD N 414.00 CAD 12/05/2013 ASHVIN ROBERTS MD N 305.1 TOBACCO ABUSE 12/05/2013 ASHVIN ROBERTS MD N 414.00 CAD 02/26/2014 CHIKIS PHD, SAUL Michel 296.90 MOOD DISORDER NOS 02/26/2014 ASHVIN ROBERTS MD N 296.90 MOOD DISORDER NOS 02/26/2014 ASHVIN ROBERTS MD N 296.90 MOOD DISORDER NOS 02/26/2014 DORINA MOSES MD 296.90 MOOD DISORDER NOS 02/26/2014 MAGALYS STOCK COUNTER, LISETH 296.90 MOOD DISORDER NOS 02/26/2014 ASHVIN ROBERTS MD N 296.90 MOOD DISORDER NOS 02/26/2014 MAGALYS STOCK COUNTER, LISETH 296.90 MOOD DISORDER NOS 02/26/2014 ASHVIN ROBERTS MD N 296.90 MOOD DISORDER NOS 02/26/2014 MAGALYS STOCK COUNTER, LISETH 296.90 MOOD DISORDER NOS 02/26/2014 MAYA DO, CANDE K 296.90 MOOD DISORDER NOS 02/26/2014 ASHVIN ROBERTS MD N 296.90 MOOD DISORDER NOS 02/26/2014 ASHVIN ROBERTS MD N 296.90 MOOD DISORDER NOS 02/26/2014 LISETH DOWELL APRN 296.90 MOOD DISORDER NOS 02/26/2014 ASHVIN ROBERTS MD N 296.90 MOOD DISORDER NOS 02/26/2014 ASHVIN ROBERTS MD N 296.90 MOOD DISORDER NOS 06/19/2014 MAGALYS MCFARLANE, LISETH 296.89 MO BIPOLAR II 06/19/2014 ASHVIN ROBERTS MD N 296.89 MO BIPOLAR II 06/19/[address] MCF[address]LANE LISETH 296.89 MO BIPOLAR II 06/19/2014 FRANCESCO NELSON CANDE K 296.89 MO BIPOLAR II 06/19/2014 ASHVIN ROBERTS MD N 296.89 MO BIPOLAR II 06/19/2014 ASHVIN ROBERTS MD N 296.89 MO BIPOLAR II 06/19/2014 LISETH DOWELL APRN 296.89 MO BIPOLAR II 06/19/2014 ASHVIN ROBERTS MD N 296.89 MO BIPOLAR II 06/19/2014 ASHVIN ROBERTS MD N 296.89 MO BIPOLAR II 2014 MAYA DO CANDE K 272.4 HYPERLIPIDEMIA 2014 FRANCESCO NELSON CANDE K 401.9 HYPERTENSION, UNSPECIFIED ESSENTIAL 2014 ASHVIN ROBERTS MD N 272.4 HYPERLIPIDEMIA 2014 ASHVIN ROBERTS MD N 401.9 HYPERTENSION, UNSPECIFIED ESSENTIAL 2014 ASHVIN ROBERTS MD N 272.4 HYPERLIPIDEMIA 2014 ASHVIN ROBERTS MD N 401.9 HYPERTENSION, UNSPECIFIED ESSENTIAL 2014 STEPHANIE DOWELL APRNETTE 272.4 HYPERLIPIDEMIA 2014 LISETH DOWELL APRN 401.9 HYPERTENSION, UNSPECIFIED ESSENTIAL 2014 ASHVIN ROBERTS MD N 272.4 HYPERLIPIDEMIA 2014 ASHVIN ROBERTS MD N 401.9 HYPERTENSION, UNSPECIFIED ESSENTIAL 2014 ASHVIN ROBERTS MD N 272.4 HYPERLIPIDEMIA 2014 ASHVIN ROBERTS MD N 401.9 HYPERTENSION, UNSPECIFIED ESSENTIAL 09/15/2014 ASHVIN ROBERTS MD N V65.42 COUNSELING - SMOKING CESSATION 09/15/2014 ASHVIN ROBERTS MD V72.31 TAX CLERK EXAM, ROUTINE 09/15/2014 ASHVIN ROBERTS MD V76.10 BREAST CANCER SCREENING 09/15/2014 LISETH DOWELL APRN V65.42 COUNSELING - SMOKING CESSATION 09/15/2014 LISETH DOWELL APRN V72.31 TAX CLERK EXAM, ROUTINE 09/15/2014 LISETH DOWELL APRN V76.10 BREAST CANCER SCREENING 09/15/2014 ASHVIN ROBERTS MD V65.42 COUNSELING - SMOKING CESSATION 09/15/2014 ASHVIN ROBERTS MD V72.31 TAX CLERK EXAM, ROUTINE 09/15/2014 ASHVIN ROBERTS MD V76.10 BREAST CANCER SCREENING 09/15/2014 ASHVIN ROBERTS MD V65.42 COUNSELING - SMOKING CESSATION 09/15/2014 ASHVIN ROBERTS MD V72.31 TAX CLERK EXAM, ROUTINE 09/15/2014 ASHVIN ROBERTS MD V76.10 BREAST CANCER SCREENING 10/21/2014 NEEMA GODOY STOCK COUNTER Ot V76.12 11/17/2014 MARIO GUZMÁN, IONA Guajardo Ot 455.0 11/17/2014 MARIO GUZMÁN, IONA Guajardo Ot 562.10 12/11/2014 ASHVIN ROBERTS MD N 461.9 SINUSITIS ACUTE 12/11/2014 ASHVIN ROBERTS MD 461.9 SINUSITIS ACUTE 03/12/2015 ASHVIN ROBERTS MD N 300.02 GENERALIZED ANXIETY DISORDER 03/12/2015 ASHVIN ROBERTS MD N 780.79 FATIGUE 02/03/2016 MARIO GUZMÁN, IONA Guajardo Ot 455.0 02/03/2016 MARIO GUZMÁN, IONA Guajardo Ot 562.10 02/03/2016 MARIO GUZMÁN, IONA Guajardo Ot V72.84 02/03/2016 NEEMA GODOY STOCK COUNTER Ot V76.12 02/07/2016 ASHVIN ROBERTS MD Ot M25.511 02/07/2016 ASHVIN ROBERTS MD Ot M81.0 02/29/2016 ASHVIN ROBERTS MD Ot M25.511 02/29/2016 ASHVIN ROBERTS MD Ot M81.0 09/14/2016 MARIO GUZMÁN, IONA Guajardo Ot 455.0 INT HEMORRHOID W/O COMPL 09/14/2016 IONA MARTIN MD Ot 562.10 DIVERTICULOSIS COLON (W/O MENT OF HEMORR 09/14/2016 IONA MARTIN MD Ot V72.84 EXAM PRE-OPERATIVE NOS 09/14/2016 NEEMA GODOY APRN Ot V76.12 OTH SCREEN MAMMO-MALIGN NEOPLASM OF RYAN 09/14/2016 ASHVIN ROBERTS MD Ot M25.511 PAIN IN RIGHT SHOULDER 09/14/2016 ASHVIN ROBERTS MD Ot M81.0 AGE-RELATED OSTEOPOROSIS W/O CURRENT PAT 09/14/2016 ASHVIN ROBERTS MD Ot Z12.31 ENCNTR SCREEN MAMMOGRAM FOR MALIGNANT NE 09/14/2016 ASHVIN ROBERTS MD Ot Z12.31 ENCNTR SCREEN MAMMOGRAM FOR MALIGNANT NE 09/15/2016 ASHVIN ROBERTS MD Ot Z12.31 ENCNTR SCREEN MAMMOGRAM FOR MALIGNANT NE 09/19/2016 ASHVIN ROBERTS MD Ot Z12.31 ENCNTR SCREEN MAMMOGRAM FOR MALIGNANT NE 09/20/2016 ASHVIN ROBERTS MD Ot Z12.31 ENCNTR SCREEN MAMMOGRAM FOR MALIGNANT NE 09/25/2016 ASHVIN ROBERTS MD Ot Z12.31 ENCNTR SCREEN MAMMOGRAM FOR MALIGNANT NE Procedures Code [place] [address] STRESS TEST, CARDIAC ( SPECIFY TYPE) 11/04/2013 Cardiolog Lashawn Whittington 11/04/2013 06956 PSYCH DIAGNOSTIC EVALUATION 11/28/2013 J3420 cyanocobalamin (vitamin B-12 ) 1,000 mcg/mL solution 11/28/2013 19967 URINE DRUG SCREEN (IN-HOUSE ) 11/28/2013 91421 THERAPUTIC INJ SQ/IM 12/05/2013 71596 THERAPUTIC INJ SQ/IM 12/05/2013 PHYSICAL PHYSICAL THERAPY, VIA [facility] 01/06/2014 37928 PSYTX PT&/FAMILY 30 MINUTES 02/26/2014 2000F BLOOD PRESSURE CHECK 03/06/2014 44026 [employer] 06/05/2014 85531 ROUTINE VENIPUNCTURE 09/15/2014 67237 MAMMOGRAM, SCREENING 09/15/2014 40961 CMP 09/15/2014 70239 LIPID PANEL 09/15/2014 31966 [employer] 12/11/2014 70798 ROUTINE VENIPUNCTURE 03/12/2015 27359 CBC 03/12/2015 86026 TSH 03/12/2015 Results Test Result Range Complete blood count (CBC) with automated white blood cell (WBC) differential - 01/29/18 19:44 Blood leukocytes automated count (number/volume) 7.3 10*3/uL 4.3-11.0 Blood erythrocytes automated count (number/volume) 4.16 10*6/uL 4.35-5.85 Venous blood hemoglobin measurement (mass/volume) 13.2 g/dL 11.5-16.0 Blood hematocrit (volume fraction) 39 % 35-52 Automated erythrocyte mean corpuscular volume 95 [foz_us] 80-99 Automated erythrocyte mean corpuscular hemoglobin (mass per erythrocyte) 32 pg 25-34 Automated erythrocyte mean corpuscular hemoglobin concentration measurement ( mass/volume) 34 g/dL 32-36 Automated erythrocyte distribution width ratio 12.7 % 10.0-14.5 Automated blood platelet count (count/volume) 313 10*3/uL 130-400 Automated blood platelet mean volume measurement 10.1 [foz_us] 7.4-10.4 Automated blood neutrophils/100 leukocytes 94 % 42-75 Automated blood lymphocytes/100 leukocytes 6 % 12-44 Blood monocytes/100 leukocytes 0 % 0-12 Automated blood eosinophils/100 leukocytes 0 % 0-10 Automated blood basophils/100 leukocytes 0 % 0-10 Blood neutrophils automated count (number/volume) 6.8 10*3 1.8-7.8 Blood lymphocytes automated count (number/volume) 0.4 10*3 1.0-4.0 Blood monocytes automated count (number/volume) 0.0 10*3 0.0-1.0 Automated eosinophil count 0.0 10*3/uL 0.0-0.3 Automated blood basophil count (count/volume) 0.0 10*3/uL 0.0-0.1 PT panel in platelet poor plasma by coagulation assay - 01/29/18 19:44 Prothrombin time (PT) in platelet poor plasma by coagulation assay 11.7 s 12.2-14.7 INR in platelet poor plasma or blood by coagulation assay 0.9 0.8-1.4 Activated partial thromboplastin time (aPTT) in platelet poor plasma bycoagulation assay - 01/29/18 19:44 Activated partial thromboplastin time (aPTT) in platelet poor plasma bycoagulation assay 35 s 24-35 Blood manual differential performed detection - 01/29/18 19:44 Blood monocytes/100 leukocytes 0 % NR Manual blood segmented neutrophils/100 leukocytes 92 % NRG Blood band neutrophils/100 leukocytes 0 % NRG Manual blood lymphocytes/100 leukocytes 8 % NRG Manual eosinophils/100 leukocytes in nose 0 % NRG Manual blood basophils/100 leukocytes 0 % NRG Blood erythrocyte morphology finding identification NORMAL NR Comprehensive metabolic panel - 01/29/18 19:44 Serum or plasma sodium measurement (moles/volume) 140 mmol/L 135-145 Serum or plasma potassium measurement (moles/volume) 3.5 mmol/L 3.6-5.0 Serum or plasma chloride measurement (moles/volume) 104 mmol/L 98-107 Carbon dioxide 22 mmol/L 21-32 Serum or plasma anion gap determination (moles/volume) 14 mmol/L 5-14 Serum or plasma urea nitrogen measurement (mass/volume) 20 mg/dL 7-18 Serum or plasma creatinine measurement (mass/volume) 1.34 mg/dL 0.60-1.30 Serum or plasma urea nitrogen/creatinine mass ratio 15 NRG Serum or plasma creatinine measurement with calculation of estimated glomerular filtration rate 42 NRG Serum or plasma glucose measurement (mass/volume) 201 mg/dL 70-105 Serum or plasma calcium measurement (mass/volume) 8.8 mg/dL 8.5-10.1 Serum or plasma total bilirubin measurement (mass/volume) 0.4 mg/dL 0.1-1.0 Serum or plasma alkaline phosphatase measurement (enzymatic activity/volume) 89 U/L 40-136 Serum or plasma aspartate aminotransferase measurement (enzymatic activity/ volume) 20 U/L 5-34 Serum or plasma alanine aminotransferase measurement (enzymatic activity/volume ) 17 U/L 0-55 Serum or plasma protein measurement (mass/volume) 6.9 g/dL 6.4-8.2 Serum or plasma albumin measurement (mass/volume) 4.0 g/dL 3.2-4.5 Magnesium - 01/29/18 19:44 Magnesium 1.3 mg/dL 1.8-2.4 Serum or plasma creatine kinase measurement (enzymatic activity/volume) - 01/29 19:44 Serum or plasma creatine kinase measurement (enzymatic activity/volume) 126 U/L 29-168 Serum or plasma creatine kinase MB measurement (enzymatic activity/volume) - 19:44 Serum or plasma creatine kinase MB measurement (enzymatic activity/volume) 3.2 ng/mL <6.6 Serum or plasma troponin i.cardiac measurement (mass/volume) - 01/29/18 19:44 Serum or plasma troponin i.cardiac measurement (mass/volume) < ng/ mL <0.30 Serum or plasma amylase measurement (enzymatic activity/volume) - 01/29/18 19: 44 Serum or plasma amylase measurement (enzymatic activity/volume) 179 U/L 25-125 Serum or plasma lithium measurement (moles/volume) - 01/29/18 19:44 BNP level 239.7 pg/mL <100.0 Lipase - 01/29/18 19:44 Lipase 31 U/L 8-78 Encounters ACCT No. Visit Date/Time Discharge Status Pt. Type Provider Facility Loc./Unit Complaint [id number] 03/12/2015 14:20:00 03/12/2015 23:59:59 CLS Outpatient ASHVIN ROBERTS MD [id number] 12/11/2014 14:17:00 12/11/2014 23:59:59 CLS Outpatient ASHVIN ROBERTS MD [id number] 10/20/2014 10:56:00 10/20/2014 23:59:59 CLS Outpatient LISETH DOWELL APRN [id number] 09/15/2014 09:20:00 09/15/2014 23:59:59 CLS Outpatient ASHVIN ROBERTS MD [id number] 09/08/2014 10:33:00 09/08/2014 23:59:59 CLS Outpatient ASHVIN ROBERTS MD [id number] 2014 10:12:00 2014 23:59:59 CLS Outpatient CANDE MAYA DO [id number] 07/02/2014 10:33:00 07/02/2014 23:59:59 CLS Outpatient ASHVIN ROBERTS MD [id number] 06/19/2014 16:34:00 06/19/2014 23:59:59 CLS Outpatient LISETH DOWELL APRN [id number] 06/19/2014 16:34:00 06/19/2014 23:59:59 CLS Outpatient LISETH DOWELL APRN [id number] 06/05/2014 10:53:00 06/05/2014 23:59:59 CLS Outpatient ASHVIN ROBERTS MD [id number] 04/02/2014 15:49:00 04/02/2014 23:59:59 CLS Outpatient DORINA MOSES MD [id number] 04/02/2014 15:49:00 04/02/2014 23:59:59 CLS Outpatient LISETH DOWELL APRN [id number] 03/06/2014 13:07:00 03/06/2014 23:59:59 CLS Outpatient ASHVIN ROBERTS MD [id number] 03/03/2014 15:37:00 03/03/2014 23:59:59 CLS Outpatient ASHVIN ROBERTS MD [id number] 02/26/2014 14:35:00 02/26/2014 23:59:59 CLS Outpatient CHIKIS POLANCO, SAUL Michel [id number] 02/03/2014 13:51:00 02/03/2014 23:59:59 CLS Outpatient ASHVIN ROBERTS MD [id number] 01/06/2014 14:15:00 01/06/2014 23:59:59 CLS Outpatient ASHVIN ROBERTS MD [id number] 12/05/2013 08:56:00 12/05/2013 23:59:59 CLS Outpatient CANDE MAYA DO [id number] 11/28/2013 10:28:00 11/28/2013 23:59:59 CLS Outpatient ASHVIN ROBERTS MD [id number] 11/28/2013 10:28:00 11/28/2013 23:59:59 CLS Outpatient ASHVIN ROBERTS MD [id number] 11/04/2013 09:19:00 11/04/2013 23:59:59 CLS Outpatient ASHVIN ROBERTS MD [id number] 09/23/2013 14:16:00 09/23/2013 23:59:59 CLS Outpatient CANDE MAYA DO [id number] 09/14/2016 14:29:00 09/14/2016 23:59:59 CLS Outpatient ASHVIN ROBERTS MD [facility] RAD SCREENING [id number] 03/31/2016 13:34:00 03/31/2016 23:59:59 CLS Preadmit PIERRE FISCHER APRN [facility] REHAB [id number] 02/03/2016 09:33:00 02/03/2016 23:59:59 CLS Outpatient ASHVIN ROBERTS MD [facility] RAD RIGHT SHOULDER PAIN [id number] 10/01/2014 10:25:00 10/01/2014 23:59:59 CLS Outpatient NEEMA GODOY STOCK COUNTER [facility] RAD ROUTINE [id number] 06/08/2014 11:59:00 06/08/2014 23:59:59 CLS Outpatient IONA MARTIN MD [facility] SDC RECTAL BLEEDING [id number] 06/03/2014 07:27:00 06/03/2014 23:59:59 CLS Outpatient IONA MARTIN MD [facility] PREOP RECTAL BLEEDING [id number] 11/05/2013 01:00:00 11/05/2013 17:45:00 DIS Outpatient TABBY GUZMÁN, LASHAWN Jones [facility] CATH CHEST PAIN [id number] 01/29/2018 21:26:00 ACT Inpatient FILIPE GUZMÁN, LIVE Zhu [facility] ICU CHEST PAIN; HTN; HYPERGLYCEMIA
[2018-01-30] VITALS (11 sets, daily range): BP systolic 124–161; BP diastolic 75–93
[2018-01-30] MEDS ORDERED: clonazePAM 1 MG (KlonoPIN) TAB PO ONE (01:45)
[2018-01-30] MEDS ORDERED: NITROGLYCERIN 0.4 MG SL TABS BTL 25'S SL PRN (04:45)
[2018-01-30 06:44] LABS: BASOPHILS % (AUTO) 0 % (0-10); EOSINOPHILS % (AUTO) 0 % (0-10); HEMATOCRIT 36 % (35-52); LYMPHOCYTES # (AUTO) 1.2 X 10^3 (1.0-4.0); LYMPHOCYTES % (AUTO) 14 % (12-44); MEAN CORPUSCULAR HEMOGLOBIN 32 PG (25-34); MEAN CORPUSCULAR HGB CONC 34 G/DL (32-36); MEAN CORPUSCULAR VOLUME 95 FL (80-99); MEAN PLATELET VOLUME 10.4 FL (7.4-10.4); MONOCYTES # (AUTO) 0.3 X 10^3 (0.0-1.0); MONOCYTES % (AUTO) 4 % (0-12); NEUTROPHILS # (AUTO) 6.7 X 10^3 (1.8-7.8); NEUTROPHILS % (AUTO) 82 % (42-75); PLATELET COUNT 289 10^3/uL (130-400); RED BLOOD COUNT 3.75 10^6/uL (4.35-5.85); RED CELL DISTRIBUTION WIDTH 12.5 % (10.0-14.5); WHITE BLOOD COUNT 8.2 10^3/uL (4.3-11.0)
[2018-01-30] MEDS: inSUlin (REGULAR) HUMAN 1 UNIT/0.01 ML (CHARGE PER UNIT) SC SCH ×2 (06:46→12:27)
[2018-01-30] MEDS: NITROGLYCERIN 2% OINT 1 GM UNIT DOSE PACKET TOP SCH ×3 (06:46→12:38)
[2018-01-30 06:54] LABS: INR 0.9 (0.8-1.4); PROTHROMBIN TIME PATIENT 12.6 SEC (12.2-14.7)
[2018-01-30 07:00] LABS: BILIRUBIN,URINE NEGATIVE (NEGATIVE); CLARITY,URINE CLEAR; COLOR,URINE YELLOW; GLUCOSE, URINE (UA) NEGATIVE (NEGATIVE); KETONES,URINE NEGATIVE (NEGATIVE); LEUKOCYTE ESTERASE ,URINE NEGATIVE (NEGATIVE); NITRITE,URINE NEGATIVE (NEGATIVE); PH,URINE 7 (5-9); PROTEIN,URINE NEGATIVE (NEGATIVE); UROBILINOGEN,URINE NORMAL (NORMAL)
[2018-01-30 07:03] LABS: ALANINE AMINOTRANSFERASE 16 U/L (0-55); ALBUMIN 3.2 GM/DL (3.2-4.5); ALKALINE PHOSPHATASE 69 U/L (40-136); BILIRUBIN,TOTAL 0.3 MG/DL (0.1-1.0); BUN/CREATININE RATIO 17; CALCIUM 8.8 MG/DL (8.5-10.1); CARBON DIOXIDE 29 MMOL/L (21-32); CHLORIDE 107 MMOL/L (98-107); CHOLESTEROL 124 MG/DL (< 200); CREATINE KINASE 68 U/L (29-168); CREATININE SERUM 1.11 MG/DL (0.60-1.30); GFR ESTIMATED 52; GLUCOSE 103 MG/DL (70-105); HDL CHOLESTEROL 51 MG/DL (40-60); POTASSIUM 3.5 MMOL/L (3.6-5.0); SODIUM 143 MMOL/L (135-145); TOTAL PROTEIN 5.3 GM/DL (6.4-8.2); TRIGLYCERIDES 74 MG/DL (<150); VLDL CHOLESTEROL 15 MG/DL (5-40)
[2018-01-30 07:11] LABS: MYOGLOBIN SERUM 50.1 NG/ML (10.0-92.0)
[2018-01-30 07:14] LABS: BACTERIA,URINE NEGATIVE /HPF; RBC,URINE RARE /HPF; SQUAMOUS EPITHELIAL CELL,UR RARE /HPF
[2018-01-30] MEDS ORDERED: INFLUENZA TRIvalent 2017-2018 0.5 ML/45 MCG SYR IM ONE (07:15)
[2018-01-30] MEDS ORDERED: ASPI-983 PO (08:26)
[2018-01-30] MEDS ORDERED: CLON0.5T PO (08:26)
[2018-01-30] MEDS ORDERED: MULT-35 PO (08:26)
[2018-01-30] MEDS ORDERED: MORP-33 PO (08:26)
[2018-01-30] MEDS ORDERED: OMEP20CA12 PO (08:26)
[2018-01-30] MEDS ORDERED: OXYC10TA7 PO (08:26)
[2018-01-30] MEDS ORDERED: CLON1TAB PO (08:26)
[2018-01-30] MEDS ORDERED: FLUO20CA42 PO (08:26)
[2018-01-30] MEDS ORDERED: MONT10TA21 PO (08:26)
[2018-01-30] MEDS ORDERED: RT-ALBUINH IH (08:26)
[2018-01-30] MEDS ORDERED: AMIT50TA3 PO (08:26)
[2018-01-30] MEDS ORDERED: CNC1KV IJ (08:26)
[2018-01-30] MEDS ORDERED: LISI1TAB8 PO (08:26)
[2018-01-30] MEDS ORDERED: DIPH25CA79 PO (08:28)
[2018-01-30] MEDS ORDERED: ACET-2267 PO (08:29)
[2018-01-30] MEDS ORDERED: meTOproloL SUCCINATE 50 MG (TOPROL XL) TAB PO SCH (09:00)
[2018-01-30] MEDS ORDERED: ASPIRIN E.C. 325 MG (ECOTRIN) TABLET PO SCH (09:00)
[2018-01-30] MEDS ORDERED: morphine ER 15 MG (MS CONTIN) TAB PO SCH (09:00)
[2018-01-30] MEDS ORDERED: LISI1TAB10 PO (09:29)
[2018-01-30] MEDS ORDERED: ATEN25TA PO (09:41)
--- NOTE | 2018-01-30 13:02 | Short Stay Summary ---
History of Present Illness History of Present Illness Reason for visit/HPI Mahsa presented to ER with complaints of chest pain which has been happening in [facility] past few weeks. Today, she tells me that she went to the grocery store and was carrying her packages in when she began to have pain in her rib cage. She was carrying more bottles in her packages than she usually does and thinks she "overdid it." SHe denied SOB, nausea, radiation with [facility] chest pain. However, the pain was more severe than usual, so she sought care in ER. In ER, there was concern for evolving ACS due to her BP of 186. Of note, patient had seen her PCP earlier in the day, but there was no mention of chest pain during their chronic health maintenance visit. Date of Admission Jan 29, 2018 at 9:26 pm Date of Discharge January 30, 2018 Time Seen by Provider: 09:00 Attending Physician Angeles Weber MD Admitting Physician Ashvin Roberts MD Consult Allergies and Home Medications Allergies Coded Allergies: metronidazole (Unverified Allergy, Mild, HIVES, 11/01/06) duloxetine (Verified Allergy, Unknown, 01/29/18) ibuprofen (Verified Allergy, Unknown, 01/29/18) pregabalin (Verified Allergy, Unknown, 01/29/18) Home Medications Acetaminophen 500 Mg Tablet, 1,000 MG PO Q6H PRN for PAIN-MILD, (Reported) Albuterol Sulfate 1 Puff Puff, 2 PUFF IH Q4H PRN for SHORTNESS OF BREATH, ( Reported) 1 PUFF = 90 MCG Amitriptyline HCl 50 Mg Tablet, 50 MG PO HS, (Reported) Aspirin 81 Mg Tablet.dr, 81 MG PO DAILY, (Reported) Atenolol 25 Mg Tablet, 25 MG PO DAILY, (Reported) NEW MED - HAS NOT STARTED YET, FILLED 01-29-18 Clonazepam 1 Mg Tablet, 1 MG PO HS, (Reported) Clonazepam 0.5 Mg Tablet, 0.5 MG PO DAILY PRN for ANXIETY, (Reported) Cyanocobalamin 1,000 Mcg/Ml Inj, 1,000 MCG IJ EVERY OTHER MONTH, (Reported) Diphenhydramine HCl 25 Mg Capsule, PO UD, (Reported) STATES SHE TAKES 5-6 (25MG) TABLETS AT BEDTIME Fluoxetine HCl 20 Mg Capsule, 20 MG PO HS, (Reported) DOES RECENTLY INCREASED FROM 10MG, HAS NOT STARTED NEW DOSE YET Lisinopril/Hydrochlorothiazide 1 Each Tablet, 1 TAB PO DAILY, (Reported) Montelukast Sodium 10 Mg Tablet, 10 MG PO DAILY, (Reported) Morphine Sulfate 15 Mg Tablet.er, 15 MG PO BID, (Reported) Multivitamin 1 Each Tablet, 1 TAB PO BID, (Reported) Omeprazole 20 Mg Capsule.dr, 20 MG PO HS, (Reported) Oxycodone HCl 10 Mg Tablet, 10 MG PO TID PRN for PAIN-SEVERE, (Reported) Patient Home Medication List Home Medication List Reviewed: Yes Past Hsptnuv-Cydizq-Tesxid Hx Patient Social History Alcohol Use: Occasionally Uses Recreational Drug Use: Yes (THC) Drug of Choice: THC Smoking Status: Current Everyday Smoker Type Used: Cigarettes Physical Abuse Screen: No Sexual Abuse: No Recent Foreign Travel: No Contact w/other who traveled: No Recent Infectious Disease Expo: No Immunizations Up To Date Tetanus Booster (TDap): More than 5yrs Surgeries Yes Abdominal, Adenoidectomy, Cardiac, Gallbladder, 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, Oophorectomy, Orthopedic, Tonsillectomy Respiratory Yes Currently Using CPAP: No Currently Using BIPAP: No Cardiovascular Yes 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, Hypertension Neurological No 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, Menopausal Genitourinary Yes (CHRONIC RENAL INSUFFICIENCY) Gastrointestinal Yes Gastroesophageal Reflux, Chronic Constipation Musculoskeletal Yes Chronic Back Pain, Fractures Endocrine History of Endocrine Disorders: No HEENT History of HEENT Disorders: No Cancer No Psychosocial History of Psychiatric Problem: Yes Behavioral Health Disorders: Anxiety, Depression Integumentary History of Skin or Integumenta: No Blood Transfusions History of Blood Disorders: No Family Medical History Family Hx: Cancer 03 FATHER Cataract 03 FATHER 03 MOTHER Chest pain 03 FATHER Congestive heart failure 03 FATHER Family history: Arthritis 03 FATHER 03 MOTHER 09 BROTHER Family history: Cardiovascular disease 03 FATHER Family history: Diabetes mellitus 03 FATHER 09 BROTHER Family history: Hypertension 03 FATHER 03 MOTHER 09 BROTHER Family history: Osteoporosis 03 MOTHER 09 BROTHER Headache 03 FATHER 03 MOTHER 09 BROTHER Hearing loss 03 FATHER Heart disease 03 FATHER History of - anemia 09 BROTHER History of - respiratory disease 03 FATHER History of drug abuse 09 BROTHER Hypercholesterolemia 03 FATHER Visual impairment 03 FATHER 03 MOTHER 09 BROTHER No Family History of: Abdominal aortic aneurysm Lennon's disease Alcoholism Aphasia Cancer of colon Congenital heart disease Cystic fibrosis Dementia Dysphagia Family history: Allergy Family history: Alzheimer's disease Family history: Asthma Family history: Breast disease Family history: Coronary thrombosis Family history: Gastrointestinal disease Family history: Glaucoma Family history: Thyroid disorder Hereditary disease History of - disorder Human immunodeficiency virus (HIV) seropositivity Infertile Kidney disease Malignant neoplasm of lung Myocardial infarction Parkinson's disease Prostate cancer Psychotic disorder Seizure disorder Stroke Tuberculosis Constitutional: see HPI All Other Systems Reviewed Negative Unless Noted: Yes Physical Exam Vital Signs Vital Signs - First Documented 01/29/18 01/29/18 19:36 21:00 Temp 97.2 Pulse 78 Resp 20 B/P (MAP) 185/108 (133) Pulse Ox 95 O2 Delivery Room Air Capillary Refill : Less Than 3 Seconds General Appearance: No Apparent Distress, WD/WN Eyes: Bilateral Eye Normal Inspection, Bilateral Eye PERRL, Bilateral Eye EOMI HEENT: PERRL/EOMI, Normal ENT Inspection, Pharynx Normal Neck: Full Range of Motion, Normal Inspection, Non Tender, Supple Respiratory: Chest Non Tender, Lungs Clear, Normal Breath Sounds, No Accessory Muscle Use, No Respiratory Distress Cardiovascular: Regular Rate, Rhythm, No Edema, No Gallop, No JVD, No Murmur, Normal Peripheral Pulses Gastrointestinal: Normal Bowel Sounds, No Organomegaly, No Pulsatile Mass, Non Tender, Soft Back: Normal Inspection, No CVA Tenderness, No Vertebral Tenderness Extremity: Normal Capillary Refill, Normal Inspection, Normal Range of Motion, Non Tender, No Calf Tenderness, No Pedal Edema Neurologic/Psychiatric: Alert, Oriented x3, No Motor/Sensory Deficits, Normal Mood/Affect Skin: Normal Color, Warm/Dry Lymphatic: No Adenopathy Clinical Quality Measures DVT/VTE Risk/Contraindication: Risk Factor Score Per Nursin RFS Level Per Nursing on Admit: 2=Moderate Short Stay Diagnosis Discharge Diagnosis-Short Stay Admission Diagnosis: ATYPICAL CHEST PAIN COSTOCHONDRITIS HYPERTENSION CHRONIC PAIN SYNDROME Final Discharge Diagnosis: SAME Conclusion Labs Laboratory Tests 01/29/18 19:44: White Blood Count 7.3, Red Blood Count 4.16L, Hemoglobin 13.2, Hematocrit 39, Mean Corpuscular Volume 95, Mean Corpuscular Hemoglobin 32, Mean Corpuscular Hemoglobin Concent 34, Red Cell Distribution Width 12.7, Platelet Count 313, Mean Platelet Volume 10.1, Neutrophils (%) (Auto) 94H, Lymphocytes (%) (Auto) 6L , Monocytes (%) (Auto) 0, Eosinophils (%) (Auto) 0, Basophils (%) (Auto) 0, Neutrophils # (Auto) 6.8, Lymphocytes # (Auto) 0.4L, Monocytes # (Auto) 0.0, Eosinophils # (Auto) 0.0, Basophils # (Auto) 0.0, Neutrophils % (Manual) 92, Lymphocytes % (Manual) 8, Monocytes % (Manual) 0, Eosinophils % (Manual) 0, Basophils % (Manual) 0, Band Neutrophils 0, Blood Morphology Comment NORMAL, Prothrombin Time 11.7L, INR Comment 0.9, Activated Partial Thromboplast Time 35 , Sodium Level 140, Potassium Level 3.5L, Chloride Level 104, Carbon Dioxide Level 22, Anion Gap 14, Blood Urea Nitrogen 20H, Creatinine 1.34H, Estimat Glomerular Filtration Rate 42, BUN/Creatinine Ratio 15, Glucose Level 201H, Calcium Level 8.8, Magnesium Level 1.3L, Total Bilirubin 0.4, Aspartate Amino Transf (AST/SGOT) 20, Alanine Aminotransferase (ALT/SGPT) 17, Alkaline Phosphatase 89, Total Creatine Kinase 126, Creatine Kinase MB 3.2, Troponin I < 0.30, B-Type Natriuretic Peptide 239.7H, Total Protein 6.9, Albumin 4.0, Amylase Level 179H, Lipase 31 01/29/18 20:34: 01/29/18 22:45: Troponin I < 0.30 01/30/18 00:04: Glucometer 152H 01/30/18 06:10: Urine Color YELLOW, Urine Clarity CLEAR, Urine pH 7, Urine Specific [place] 1.010L, Urine Protein NEGATIVE, Urine Glucose (UA) NEGATIVE, Urine Ketones NEGATIVE, Urine Nitrite NEGATIVE, Urine Bilirubin NEGATIVE, Urine Urobilinogen NORMAL, Urine Leukocyte Esterase NEGATIVE, Urine RBC (Auto) NEGATIVE, Urine RBC RARE, Urine WBC NONE, Urine Squamous Epithelial Cells RARE, Urine Crystals NONE , Urine Bacteria NEGATIVE, Urine Casts NONE, Urine Mucus NEGATIVE, Urine Culture Indicated NO 01/30/18 06:15: Glucometer 117H 01/30/18 06:17: White Blood Count 8.2, Red Blood Count 3.75L, Hemoglobin 12.0, Hematocrit 36, Mean Corpuscular Volume 95, Mean Corpuscular Hemoglobin 32, Mean Corpuscular Hemoglobin Concent 34, Red Cell Distribution Width 12.5, Platelet Count 289, Mean Platelet Volume 10.4, Neutrophils (%) (Auto) 82H, Lymphocytes (%) (Auto) 14 , Monocytes (%) (Auto) 4, Eosinophils (%) (Auto) 0, Basophils (%) (Auto) 0, Neutrophils # (Auto) 6.7, Lymphocytes # (Auto) 1.2, Monocytes # (Auto) 0.3, Eosinophils # (Auto) 0.0, Basophils # (Auto) 0.0, Prothrombin Time 12.6, INR Comment 0.9, Activated Partial Thromboplast Time 42H, Sodium Level 143, Potassium Level 3.5L, Chloride Level 107, Carbon Dioxide Level 29, Anion Gap 7, Blood Urea Nitrogen 19H, Creatinine 1.11, Estimat Glomerular Filtration Rate 52 , BUN/Creatinine Ratio 17, Glucose Level 103, Calcium Level 8.8, Total Bilirubin 0.3, Aspartate Amino Transf (AST/SGOT) 13, Alanine Aminotransferase ( ALT/SGPT) 16, Alkaline Phosphatase 69, Total Creatine Kinase 68, Myoglobin 50.1 , Troponin I < 0.30, Total Protein 5.3L, Albumin 3.2, Triglycerides Level 74, Cholesterol Level 124, LDL Cholesterol Direct 60, VLDL Cholesterol 15, HDL Cholesterol 51 01/30/18 12:15: Glucometer 59*L Conclusion/Plan Patient was observed in hospital for evolving ACS. SHe has no changes in her EKG and no elevation of her cardiac enzymes. She should discuss her situation with Dr Roberts, her PCP, further at their next visit to see if a stress test is warranted. SHe did have a cath a few years ago by Dr Whittington and did not require stents at that time. She should continue to mitigate cardiac risks by therapeutic lifestyle modifications including a healthy diet, exercising 150 minutes per week, and taking all medications as prescribed. Copy Copies To 1: ASHVIN ROBERTS MD, JULIE A MD Jan 30, 2018 13:02
--- NOTE | 2018-01-30 14:40 | Discharge Instructions ---
Discharge [facility] Discharge Medications New, Converted or Re-Newed RX: Other Continued Medications: Acetaminophen (Tylenol Extra Strength) 500 Mg Tablet 1000 MG PO Q6H PRN for PAIN-MILD, TAB Albuterol Sulfate (Proair Hfa) 1 Puff Puff 2 PUFF IH Q4H PRN for SHORTNESS OF BREATH, PUFF 1 PUFF = 90 MCG Amitriptyline HCl (Amitriptyline HCl) 50 Mg Tablet 50 MG PO HS, TAB Aspirin (Aspirin EC) 81 Mg Tablet.dr 81 MG PO DAILY, TAB Atenolol (Atenolol) 25 Mg Tablet 25 MG PO DAILY, TAB NEW MED - HAS NOT STARTED YET, FILLED 3--18 Clonazepam (Klonopin) 1 Mg Tablet 1 MG PO HS, TAB Clonazepam (Klonopin) 0.5 Mg Tablet 0.5 MG PO DAILY PRN for ANXIETY, TAB Cyanocobalamin (Cyanocobalamin Injection) 1,000 Mcg/Ml Inj 1000 MCG IJ EVERY OTHER MONTH, VIAL Diphenhydramine HCl (Benadryl) 25 Mg Capsule PO UD, CAP STATES SHE TAKES 5-6 (25MG) TABLETS AT BEDTIME Fluoxetine HCl (Prozac) 20 Mg Capsule 20 MG PO HS, CAP DOES RECENTLY INCREASED FROM 10MG, HAS NOT STARTED NEW DOSE YET Lisinopril/Hydrochlorothiazide (Lisinopril-Hctz 20-25 mg Tab) 1 Each Tablet 1 TAB PO DAILY, TAB Montelukast Sodium (Singulair) 10 Mg Tablet 10 MG PO DAILY, TAB Morphine Sulfate (Morphine Sulfate ER) 15 Mg Tablet.er 15 MG PO BID, TAB Multivitamin (Daily Multiple Vitamin) 1 Each Tablet 1 TAB PO BID, TAB Omeprazole (Omeprazole) 20 Mg Capsule.dr 20 MG PO HS, CAP Oxycodone HCl (Oxycodone HCl) 10 Mg Tablet 10 MG PO TID PRN for PAIN-SEVERE, TAB Patient Instructions Goal/Follow Up Appt: YOU SHOULD FOLLOW UP WITH DR ROBERTS ON FEBRUARY 06 AT 1:20 Patient Instructions: WE DID NOT MAKE ANY CHANGES TO YOUR MEDICATION REGIMEN TODAY. Return to The Hospital For: INCREASING CHEST PAIN OR SHORTNESS OF BREATH RELATED TO ACTIVITY. Activity & Diet Discharge Diet: No Restrictions Activity as Tolerated: Yes Orders-Post D/C & Referrals Pneu Vac Indicated: Yes Copy Copies To 1: ASHVIN ROBERTS MD, JULIE A MD Jan 30, 2018 2:40 pm
[2018-01-30] MEDS ORDERED: clonazePAM 1 MG (KlonoPIN) TAB PO SCH (21:00)
== END 2018-01-30 14:34 | disposition home or self-care (01) ==
LOC: EDUNIT# 19:29 → ER 19:30 → ICU 20:50 → UNDOADMOB 21:26 → ICU 21:26 → 4TH 01-30 01:12 → UNDODISOB 01-30 16:14
PROVIDERS: ADMIT Pediatrics; ATTEND Pediatrics
DX: R07.89 Other chest pain (principal); M94.0 Chondrocostal junction syndrome [Tietze]; G89.4 Chronic pain syndrome; R73.9 Hyperglycemia, unspecified; I12.9 Hypertensive chronic kidney disease with stage 1 through stage 4 chronic kidney disease, or unspecified chronic kidney disease; N18.9 Chronic kidney disease, unspecified; J44.9 Chronic obstructive pulmonary disease, unspecified; E78.00 Pure hypercholesterolemia, unspecified; F12.90 Cannabis use, unspecified, uncomplicated; F11.20 Opioid dependence, uncomplicated; F17.210 Nicotine dependence, cigarettes, uncomplicated; K21.9 Gastro-esophageal reflux disease without esophagitis; K59.09 Other constipation; F41.9 Anxiety disorder, unspecified; F32.9 Major depressive disorder, single episode, unspecified; Z79.82 Long term (current) use of aspirin; Z79.899 Other long term (current) drug therapy
CPT/HCPCS: 36415; 71045; 80053; 80061; 81000; 82150; 82550; 82553; 82962; 83036; 83690; 83735; 83874; 83880; 84484; 85007; 85025; 85027; 85610; 85730; 93005; 93041; 96372; 96374; G0378

== ENCOUNTER → 2018-08-13 | Outpatient (CLI) | payer MEDICARE, MEDICAID ==
[~2018-08-13] MED LIST changes: +ACET-2267 PO; +AMIT50TA3 PO; +ASPI-983 PO; +ATEN25TA PO; +CLON0.5T PO; +CLON1TAB PO; +CNC1KV IJ; +DIPH25CA79 PO; +FLUO20CA42 PO; +LISI1TAB10 PO; +LISI1TAB8 PO; +MONT10TA21 PO; +MORP-33 PO; +MULT-35 PO; +OMEP20CA12 PO; +OXYC10TA7 PO; +RT-ALBUINH IH
--- NOTE | 2018-08-13 12:19 | Diagnostic Imaging Report ---
INDICATION: Routine screening. Comparison is made with prior mammograms from 09/14/2016 and 10/01/2014. 2-D and 3-D bilateral screening mammography was performed with CAD. The current study was also evaluated with a Computer Aided Detection (CAD) system. FINDINGS: Scattered fibroglandular densities are identified bilaterally. The parenchymal pattern is stable. There are benign calcifications bilaterally. No mass or malignant-appearing microcalcifications are seen. The axillae are unremarkable. IMPRESSION: No mammographic features suspicious for malignancy are identified. ACR BI-RADS Category 2: Benign findings. Result letter will be mailed to the patient. Note: At least 10% of breast cancer is not imaged by mammography. Dictated by: Dictated on workstation # [id number]
== END ==
LOC: RAD 08:27
PROVIDERS: ATTEND Family Medicine
DX: Z12.31 Encounter for screening mammogram for malignant neoplasm of breast (principal)
CPT/HCPCS: 77067

== ENCOUNTER → 2018-12-12 | Outpatient (CLI) | payer MEDICARE, MEDICAID ==
--- NOTE | 2018-12-12 12:49 | Diagnostic Imaging Report ---
INDICATION: Postmenopausal screening for osteoporosis. COMPARISON: 02/03/2016. FINDINGS: AP Spine L1-L4: [BMD (g/cm2): N/A] [T-Score: N/A] [Z-Score: N/A] [BMD Previous: N/A] [BMD % Change: N/A] LT Hip Neck: [BMD (g/cm2): 0.895] [T-Score: -1.0] [Z-Score: -0.5] LT Hip Total: [BMD (g/cm2):0.851] [T-Score:-1.2] [Z-Score: -1.1] [BMD Previous: 1.017] [BMD % Change: N/A] RT Hip Neck: [BMD (g/cm2):0.931] [T-Score:-0.8] [Z-Score:-0.3] RT Hip Total: [BMD (g/cm2):0.901] [T-score:-0.8] [Z-Score:-0.7] [BMD Previous:0.995] [BMD % Change:N/A] *Indicates significant change from prior examination based on 95% confidence level. World Health Organization criteria for BMD interpretation classify patients as Normal (T-score at or above -1.0), Osteopenic (T-score between -1.0 and -2.5) or Osteoporotic (T-score at or below -2.5). LIMITATIONS AND MODIFICATION: None. FRACTURE RISK (FRAX SCORE): The ten year probability of (%): Major Osteoporotic Fracture: [4.6] Hip Fracture: [0.4] IMPRESSION: 1. Osteopenia (Low bone mass). 2. Due to differences in equipment utilized between examinations, direct quantitative comparison is not possible to assess for interval change in bone mineral density. 3. See below National Osteoporosis Foundation guidelines on when to potentially initiate pharmacologic therapy. Based on the National Osteoporosis Foundation Guidelines, pharmacologic treatment should be initiated in any of the following, unless clinical conditions suggest otherwise: * Any patient with prior fragility fracture of the hip or vertebrae. A spine fracture indicates 5X risk for subsequent spine fracture and 2X risk for subsequent hip fracture. * Osteoporosis (T-score <-2.5). * Postmenopausal women and men age 50 and older with low bone mass/osteopenia (T-score between -1.0 and -2.5) by DXA and 10-year major osteoporotic fracture greater than 20% or a 10-year probability of hip fracture greater than 3%. These fracture risks are supplied above in the FRAX score, if applicable. * Clinician judgment and/or patient preferences may indicate treatment for people with 10-year fracture probabilities above or below these levels. Dictated by: Dictated on workstation # [id number]
== END ==
LOC: RAD 08:56
PROVIDERS: ATTEND Family Medicine
DX: Z13.820 Encounter for screening for osteoporosis (principal); M81.0 Age-related osteoporosis without current pathological fracture; M85.88 Other specified disorders of bone density and structure, other site
CPT/HCPCS: 77080

== ENCOUNTER → 2018-12-17 | Outpatient (CLI) | payer MEDICARE, MEDICAID ==
--- NOTE | 2018-12-17 11:21 | Diagnostic Imaging Report ---
PROCEDURE: MR imaging cervical spine without contrast. TECHNIQUE: Multiplanar, multisequence MR imaging of the cervical spine was performed without contrast. INDICATION: Cervicalgia. COMPARISON: Thoracic spine MRI performed prior day. FINDINGS: Normal lordosis of the cervical spine. No fracture or marrow replacing process. No features of active facet synovitis. Cervical cord is normal in size and signal. Specifically, no cord edema, demyelinating plaques or myelomalacia. Paravertebral musculature is normal. No epidural fluid collection or mass. Cerebellar tonsils are in normal position. C2-C3: No spinal canal or neural foraminal narrowing. C3-C4: No spinal canal or neural foraminal narrowing. C4-C5: Small posterior disc osteophyte complex does not result in spinal canal or neural foraminal narrowing. C5-C6: Small posterior disc osteophyte complex and ligamentum flavum thickening cause mild spinal stenosis. There is also mild bilateral foraminal narrowing due to uncovertebral joint hypertrophy. C6-C7: Minimal central disc bulging and ligamentum flavum thickening. No resultant spinal stenosis. No foraminal narrowing. C7-T1: No spinal canal or neural foraminal narrowing. IMPRESSION: 1. Mild degenerative changes in the cervical spine are most advanced at C5-C6 where there is mild spinal stenosis and neural foraminal narrowing. 2. Normal alignment of the cervical spine. 3. No fracture or active facet synovitis. Dictated by: Dictated on workstation # [id number]
== END ==
LOC: RAD 08:35
PROVIDERS: ATTEND Family Medicine
DX: M47.812 Spondylosis without myelopathy or radiculopathy, cervical region (principal); M48.02 Spinal stenosis, cervical region; M50.30 Other cervical disc degeneration, unspecified cervical region
CPT/HCPCS: 72141

== ENCOUNTER 2020-06-19 01:56 | Emergency (ER) | payer MEDICARE, MEDICAID ==
[~2020-06-19] VITALS: Ht 175 cm; Wt 94.0 kg
[~2020-06-19 01:56] MED LIST changes: -LISI1TAB10 PO; +LISI1TAB25 PO; +LISI1TAB26 PO; -LISI1TAB8 PO; -MORP-33 PO; +MORP-68 PO; -OMEP20CA12 PO; +OMEP20CA18 PO
--- OUTSIDE RECORDS SUMMARY | 2020-06-19 02:03 | XMS REPORT ---
Author Author Mahsa Lewis Doctor Organization [facility] Address Unknown Phone Unavailable Care Team Providers Care Guide Name Role Phone Migration, Doctor Unavailable Unavailable PROBLEMS Type Condition ICD9-CM Code [id number] Code Onset Dates Condition S tatus SNOMED Code Problem Chronic pain syndrome G89.4 Active 218577804 Problem Other constipation K59.09 Active 1 [id number] Problem Anxiety F41.9 Active 02429818 Problem Primary insomnia F51.01 Active 193 728121 Problem Atherosclerosis of sun'aq co ronary artery of sun'aq heart without angina pectoris I25.10 Active 1347524525450 Problem Essential hypertension I10 Active 97766858 Problem Hyperlipidemia, unspecified hyperlipidemia E78.5 Active 90996888 Problem Major depressive disorder, recurrent episode, un specified severity F33.9 Active 01273018 Problem Allergic rhinitis J30.9 Active 61 476007 Problem Fibromyalgia M79.7 Active 9678501 7 Problem GERD (gastroesophageal reflux disease) K21.9 Active 384581402 Problem Degenerative disc disease, thoracic M51.34 Active 93967318 Problem Bilateral low back pain, with sciatica presence unspecifie d M54.5 Active 727132668 Problem Moderate episode of recurrent major depressive disorder F33.1 Active 184270655 Problem B12 deficiency E53.8 Active 65460 4004 Problem Chronic obstructive pulmonary disease, unspecified COPD ty pe J44.9 Active 18003579 Problem CKD (chronic kidney disease) stage 3, GFR 30-59 ml/min N18.3 Active 572480496 Problem Cannabis abuse F12.10 Active 88931 009 Problem Degenerative disc disease, cervical M50.30 Active 43038372 ALLERGIES No Information ENCOUNTERS Encounter Location Date Diagnosis [facility] [address] [id number] [place] [address] Nov, [facility] [address] [id number] [place] [address] Oct, Moderate episode of recurrent major depr essive disorder F33.1 ; Chronic obstructive pulmonary disease, unspecified COPD type J44.9 ; CKD (chronic kidney disease) stage 3, GFR 30-59 ml/min N18.3 ; Essential hypertension I10 and Possible exposure to STD Z20.2 [place] [address] [address] Oct, Essential hypertension I10 [facility] [address] [address] Oct, [facility] [address] [address] Sep, Essential hypertension I10 [place] [address] [address] Sep, [place] [address] [address] Sep, [place] [address] [address] Sep, [place] [address] [address] Aug, Essential hypertension I10 [place] [address] [address] Aug, Essential hypertension I10 [place] [address] [address] Jul, Allergic rhinitis J30.9 ; CKD (chronic k idney disease) stage 3, GFR 30-59 ml/min N18.3 ; Essential hypertension I10 and Moderate episode of recurrent major depressive disorder F33.1 [place] [address] [address] Jul, Elevated platelet count R79.89 ; B12 def iciency E53.8 ; Hyperlipidemia, unspecified hyperlipidemia E78.5 and CKD (chronic kidney disease) stage 3, GFR 30-59 ml/min N18.3 [place] [address] [address] Apr, B12 deficiency E53.8 [place] [address] [address] Jan, Periumbilical hernia K42.9 ; CKD (chroni c kidney disease) stage 3, GFR 30-59 ml/min N18.3 ; Essential hypertension I10 ; GERD (gastroesophageal reflux disease) K21.9 ; Hyperlipidemia, unspecified hyperlipidemia E78.5 and Major depressive disorder, recurrent episode, unspecified severity F33.9 [place] [address] [address] Dec, Anxiety F41.9 [place] [address] [address] Nov, Elevated platelet count R79.89 [place] [address] [address] Nov, [place] [address] [address] Nov, Elevated platelet count R79.89 [place] [address] [address] Nov, Anxiety F41.9 [place] [address] [address] Nov, Bilateral low back pain, with sciatica p resence unspecified M54.5 ; Cervicalgia M54.2 ; Degenerative disc disease, cervical M50.30 and Degenerative disc disease, thoracic M51.34 [place] [address] [address] Nov, Chronic pain syndrome G89.4 and Bilatera l low back pain, with sciatica presence unspecified M54.5 [place] [address] [address] Oct, Umbilical hernia without obstruction and without gangrene K42.9 [place] [address] [address] Oct, Chronic pain syndrome G89.4 [place] [address] [address] Oct, Chronic pain syndrome G89.4 and Anxiety F41.9 [place] [address] [address] 12 Oct, 2018 Elevated platelet count R79.89 [place] [address] [address] 10 Oct, 2018 CKD (chronic kidney disease) stage 3, GF R 30-59 ml/min N18.3 ; Other chest pain R07.89 ; Acute midline thoracic back pain M54.6 ; Essential hypertension I10 and History of osteoporosis Z87.39 [place] [address] [address] Sep, Chronic pain syndrome G89.4 [place] [address] [address] 16 Sep, [address] [address] Sep, Anxiety F41.9 and Chronic pain syndrome G89.4 [place] [address] [address] 18 Aug, 2018 Chronic pain syndrome G89.4 and Anxiety F41.9 [place] [address] [address] Aug, [address] [address] Aug, Cannabis abuse F12.10 and Controlled sub stance agreement terminated Z91.[address] [address] Jul, Chronic pain syndrome G89.4 ; Bilateral low back pain, with sciatica presence unspecified M54.5 ; Chronic prescription opiate use Z79.899 ; Essential hypertension I10 ; Hyperlipidemia, unspecified hyperlipidemia E78.5 ; CKD (chronic kidney disease) stage 3, GFR 30-59 ml/min N18.3 and Allergic rhinitis J30.9 [place] [address] [address] Jul, Chronic pain syndrome G89.4 and Anxiety F41.9 [place] [address] [address] Jul, Screening for breast cancer Z12.31 and Casandra castillo depressive disorder, recurrent episode, unspecified severity F33.9 [place] [address] [address] Jun, Chronic pain syndrome G89.4 and Anxiety F41.9 [place] [address] [address] May, Chronic pain syndrome G89.4 and Anxiety F41.9 [place] [address] [address] Apr, Anxiety F41.9 [place] [address] [address] Apr, Chronic prescription opiate use Z79.899 ; Chronic pain syndrome G89.4 ; Essential hypertension I10 ; Allergic rhinitis J30.9 and CKD (chronic kidney disease) stage 3, GFR 30-59 ml/min N18.3 [place] [address] [address] Apr, [place] [address] [address] March, Anxiety F41.9 and Chronic pain syndrome G89.4 [place] [address] [address] March, CKD (chronic kidney disease) stage 3, GF R 30-59 ml/min N18.3 ; B12 deficiency E53.8 and Hyperlipidemia, unspecified hyperlipidemia E78.5 [place] [address] [address] March, Anxiety F41.9 and Chronic pain syndrome G89.4 [place] [address] [address] Feb, Anxiety F41.9 and Chronic pain syndrome G89.4 [place] [address] [address] 30 Jan, 2018 B12 deficiency E53.8 [place] [address] [address] Jan, [place] [address] [address] Jan, Anxiety F41.9 ; Chronic pain syndrome G8 9.4 and Essential hypertension I10 [place] [address] [address] Jan, CKD (chronic kidney disease) stage 3, GF R 30-59 ml/min N18.3 ; Drug induced constipation K59.03 ; Chronic obstructive pulmonary disease, unspecified COPD type J44.9 ; Bilateral low back pain, with sciatica presence unspecified M54.5 ; Hyperlipidemia, unspecified hyperlipidemia E78.5 ; Essential hypertension I10 ; Anxiety F41.9 ; Chronic pain syndrome G89.4 ; Major depressive disorder, recurrent episode, unspecified severity F33.9 and Subacromial bursitis of right shoulder joint M75.51 [place] [address] [address] Dec, Essential hypertension I10 [place] [address] [address] 15 Dec, 2017 Chronic pain syndrome G89.[address] [address] Dec, Chronic pain syndrome G89.4 [place] [address] [address] Nov, [address] [address] Nov, Chronic pain syndrome G89.4 and Anxiety F41.[address] [address] Oct, Chronic pain syndrome G89.4 ; Other cons tipation K59.09 and Chronic prescription opiate use Z79.899 [place] [address] [address] 08 Oct, 2017 Chronic pain syndrome G89.4 and Anxiety F41.9 [place] [address] [address] Sep, Essential hypertension I10 [place] [address] [address] 16 Sep, 2017 Chronic pain syndrome G89.4 and Anxiety F41.9 [place] [address] [address] Aug, Chronic pain syndrome G89.4 and Anxiety F41.9 [place] [address] [address] 28 Jul, 2017 Essential hypertension I10 [place] [address] [address] Jul, Chronic obstructive pulmonary disease, u nspecified COPD type J44.9 [place] [address] [address] Jul, Chronic pain syndrome G89.4 and Anxiety F41.9 [place] [address] [address] 13 Jul, 2017 Chronic pain syndrome G89.4 ; Essential hypertension I10 ; Fibromyalgia M79.7 ; CKD (chronic kidney disease) stage 3, GFR 30-59 ml/min N18.3 ; Subacromial bursitis, right M75.51 and Goals of care, co unseling/discussion Z71.89 [place] [address] [address] Jun, Chronic pain syndrome G89.4 and Anxiety F41.9 [place] [address] [address] May, Chronic pain syndrome G89.4 and Anxiety F41.9 [place] [address] [address] Apr, Chronic pain syndrome G89.4 and Anxiety F41.9 [place] [address] [address] Apr, Drug induced constipation K59.03 ; Chron ic pain syndrome G89.4 and CKD (chronic kidney disease) stage 3, GFR 30-59 ml/min N18.3 [place] [address] [address] Apr, Chronic pain syndrome G89.4 and Anxiety F41.9 [place] [address] [address] March, Chronic pain syndrome G89.4 and Anxiety F41.9 [place] [address] [address] March, Decreased GFR R94.4 [place] [address] [address] Feb, [place] [address] [address] Feb, Chronic pain syndrome G89.4 and Anxiety F41.9 [place] [address] [address] Jan, Decreased GFR R94.4 [place] [address] [address] Jan, Decreased GFR R94.4 [place] [address] [address] Jan, Allergic rhinitis J30.9 ; Essential hype rtension I10 ; Major depressive disorder, recurrent episode, unspecified severity F33.9 and Primary insomnia F51.[address] [address] Jan, Acute right-sided thoracic back pain M54 .6 ; Subacromial bursitis of right shoulder joint M75.51 ; Chronic pain syndrome G89.4 and Anxiety F41.[address] [address] Jan, Decreased GFR R94.4 [place] [address] [address] Dec, Decreased GFR R94.4 [place] [address] [address] Dec, Decreased GFR R94.4 [place] [address] [address] Dec, Decreased GFR R94.4 [place] [address] [address] Dec, Decreased GFR R94.4 [place] [address] [address] Dec, Anxiety F41.9 and Bilateral low back candis n, with sciatica presence unspecified M54.5 [place] [address] [address] Dec, Thrombocytosis D47.3 ; Hyperlipidemia, u nspecified hyperlipidemia E78.5 ; Need for hepatitis C screening test Z11.59 and B12 deficiency E53.8 [place] [address] [address] Nov, Need for hepatitis C screening test Z11. 59 [place] [address] [address] Nov, Anxiety F41.9 and Bilateral low back candis n, with sciatica presence unspecified M54.5 [place] [address] [address] Oct, Bilateral low back pain, with sciatica p resence unspecified M54.5 ; Chronic prescription opiate use Z79.899 ; Anxiety F41.9 ; Essential hypertension I10 ; Hyperlipidemia, unspecified hyperlipidemia E78.5 ; Health care maintenance Z00.00 and Thrombocytosis D47.3 [place] [address] [address] Sep, [place] [address] [address] Sep, [facility] [address] [address] Aug, [facility] [address] [address] Jul, B12 deficiency E53.8 [facility] [address] [address] Jul, [place] [address] [address] Jul, Essential hypertension I10 ; Chronic candis n syndrome G89.4 ; Anxiety F41.9 ; Screening for breast cancer Z12.39 ; Atherosclerosis of sun'aq coronary artery of sun'aq heart without angina pectoris I25.10 ; Major depressive disorder, recurrent episode, unspecified severity F33.9 ; Primary insomnia F51.01 and Allergic rhinitis J30.9 [place] [address] [address] Jun, [facility] [address] [facility] [id number] [place] [address] Jun, Leg wound, right, initial en counter S81.801A and Encounter for immunization Z23 [place] [address] [address] Jun, Open wound of right ear, unspecified ope n wound type, initial encounter S01.301A [facility] [address] [address] May, B12 deficiency E53.8 [facility] [address] [address] May, [facility] [address] [address] May, [facility] [address] [address] May, Chronic pain syndrome G89.4 ; Chronic pr escription opiate use Z79.899 ; Allergic rhinitis J30.9 ; Essential hypertension I10 and Non-healing skin lesion L98.9 [facility] [address] [address] Apr, [facility] [address] [address] March, [facility] [address] [address] Feb, [facility] [address] [address] Feb, [place] [address] [address] Feb, Chronic pain syndrome G89.4 ; Anxiety F4 1.9 ; B12 deficiency E53.8 ; Allergic rhinitis J30.9 ; Fibromyalgia M79.7 ; Actinic keratosis L57.0 ; Skin rash R21 ; Open wound of right ear, unspecified open wound type, initial encounter S01.301A ; Subacromial bursitis, right M75.51 ; GERD (gastroesophageal reflux disease) K21.9 and Chronic obstructive pulmonary disease, unspecified COPD type J44.9 [place] [address] [address] Jan, [facility] [address] [address] Jan, Essential hypertension I10 [facility] [address] [address] Jan, [facility] [address] [address] Jan, [facility] [address] [address] Jan, [facility] [address] [address] Dec, [facility] [address] [address] Dec, Essential hypertension I10 [place] [address] [address] Dec, [facility] [address] [address] Dec, B12 deficiency E53.8 and Essential hyper tension I10 [place] [address] [address] Dec, [place] [address] [address] Nov, Right shoulder pain M25.511 [place] [address] [address] Nov, Right shoulder pain M25.511 [place] [address] [address] Nov, Essential hypertension I10 and B12 defic iency E53.8 [place] [address] [address] Nov, Major depressive disorder, recurrent epi sode, unspecified severity F33.9 ; Anxiety F41.9 ; Chronic pain syndrome G89.4 ; Essential hypertension I10 ; Hyperlipidemia, unspecified hyperlipidemia E78.5 ; Chronic prescription opiate use Z79.899 ; Allergic rhinitis J30.9 ; B12 deficiency E53.8 and Right shoulder pain M25.511 [place] [address] [address] Oct, [place] [address] [address] Oct, [place] [address] [address] Sep, [place] [address] [address] Sep, [place] [address] [address] Aug, [place] [address] [address] Aug, [facility] [address] [place] [id number] [place] [address] Aug, [facility] [address] [address] Aug, Other constipation K59.09 ; Hyperlipidem ia, unspecified hyperlipidemia E78.5 ; Essential hypertension I10 ; Primary insomnia F51.01 ; Anxiety F41.9 ; Chronic pain syndrome G89.4 ; Right shoulder pain M25.511 and Acute cystitis without hematuria N30.00 [facility] [address] [place] [id number] [place] [address] Jul, [facility] [address] [address] Jul, [facility] [address] [address] Jun, [facility] [address] [address] Jun, [facility] [address] [address] Jun, [facility] [address] [address] May, [facility] [address] [address] May, Other chronic pain 338.29 ; Hypertension 401.9 and Constipation due to opioid therapy 564.09 [facility] [address] [place] [id number] [place] [address] May, [facility] [address] [address] May, [facility] [address] [address] Apr, [facility] [address] [address] Apr, Unspecified essential hypertension 401.9 [facility] [address] [place] [id number] [place] [address] 16 Apr, 2015 [facility] [address] [id number] [place] [address] Apr, [facility] [address] [id number] [place] [address] 16 Apr, 2015 [facility] [address] [id number] [place] [address] Apr, [facility] [address] [id number] [place] [address] 15 Apr, 2015 [facility] [address] [id number] [place] [address] Apr, [facility] [address] [id number] [place] [address] March, Unspecified essential hypertension 401.9 [facility] [address] [id number] [place] [address] March, [facility] [address] [id number] [place] [address] March, [facility] [address] [id number] [place] [address] 14 Feb, 2015 [facility] [address] [id number] [place] [address] Feb, [facility] [address] [id number] [place] [address] 23 Jan, 2015 [facility] [address] [id number] [place] [address] 23 Jan, 2015 [facility] [address] [id number] [place] [address] 17 Jan, 2015 [facility] [address] [id number] [place] [address] 17 Jan, 2015 [facility] [address] [id number] [place] [address] 13 Jan, 2015 [facility] [address] [id number] [place] [address] Jan, 2014 [facility] [address] [facility] [id number] [place] [address] Jan, [facility] [address] [facility] [id number] [place] [address] Dec, 2014 [facility] [address] [id number] [place] [address] Dec, [facility] [address] [id number] [place] [address] Dec, [facility] [address] [id number] [place] [address] Nov, [facility] [address] [id number] [place] [address] Nov, [facility] [address] [id number] [place] [address] Oct, [facility] [address] [id number] [place] [address] Oct, [facility] [address] [id number] [place] [address] Oct, [facility] [address] [id number] [place] [address] Oct, [facility] [address] [id number] [place] [address] Oct, [facility] [address] [id number] [place] [address] Oct, [facility] [address] [id number] [place] [address] Oct, [facility] [address] [id number] [place] [address] Oct, [facility] [address] [id number] [place] [address] Sep, [facility] [address] [id number] [place] [address] Sep, [facility] [address] [id number] [place] [address] Sep, [facility] [address] [facility] [id number] [place] [address] Sep, [facility] [address] [facility] [id number] [place] [address] Sep, [facility] [address] [id number] [place] [address] Sep, [facility] [address] [facility] [id number] [place] [address] Aug, [facility] [address] [facility] [id number] [place] [address] Aug, [facility] [address] [id number] [place] [address] Aug, [facility] [address] [id number] [place] [address] Aug, [facility] [address] [id number] [place] [address] Aug, [facility] [address] [id number] [place] [address] Aug, [facility] [address] [id number] [place] [address] Aug, [facility] [address] [id number] [place] [address] Aug, [facility] [address] [id number] [place] [address] Aug, [facility] [address] [facility] [id number] [place] [address] Aug, [facility] [address] [id number] [place] [address] Jul, [facility] [address] [id number] [place] [address] Jul, [facility] [address] [id number] [place] [address] Jul, [facility] [address] [facility] [id number] [place] [address] Jul, [facility] [address] [facility] [id number] [place] [address] Jul, [facility] [address] [facility] [id number] [place] [address] Jul, [facility] [address] [id number] [place] [address] Jun, [facility] [address] [facility] [id number] [place] [address] Jun, [facility] [address] [id number] [place] [address] Jun, [facility] [address] [id number] [place] [address] Jun, [facility] [address] [id number] [place] [address] Jun, [facility] [address] [id number] [place] [address] Jun, [facility] [address] [id number] [place] [address] May, [facility] [address] [id number] [place] [address] May, [facility] [address] [id number] [place] [address] May, [facility] [address] [id number] [place] [address] May, [facility] [address] [facility] [id number] [place] [address] May, [facility] [address] [id number] [place] [address] Apr, [facility] [address] [id number] [place] [address] Apr, [facility] [address] [id number] [place] [address] Apr, [facility] [address] [facility] [id number] [place] [address] Apr, [facility] [address] [facility] [id number] [facility] [place] [address] March, [facility] [address] [id number] [place] [address] March, [facility] [address] [id number] [facility] [place] [address] March, [facility] [address] [facility] [id number] [facility] [place] [address] March, [facility] [address] [id number] [place] [address] March, [facility] [address] [id number] [place] [address] March, [facility] [address] [id number] [place] [address] Feb, [facility] [address] [id number] [place] [address] Feb, [facility] [address] [id number] [place] [address] Feb, [facility] [address] [id number] [place] [address] Feb, [facility] [address] [id number] [place] [address] Feb, [facility] [address] [id number] [place] [address] Feb, [facility] [address] [id number] [place] [address] Feb, [facility] [address] [id number] [place] [address] Feb, [facility] [address] [id number] [place] [address] Jan, [facility] [address] [id number] [place] [address] Jan, [facility] [address] [facility] [id number] [place] [address] Jan, [facility] [address] [facility] [id number] [place] [address] Jan, [facility] [address] [id number] [place] [address] Jan, [facility] [address] [facility] [id number] [place] [address] Jan, [facility] [address] [facility] [id number] [place] [address] Dec, [facility] [address] [id number] [place] [address] Dec, [facility] [address] [id number] [place] [address] Nov, [facility] [address] [id number] [place] [address] Nov, [facility] [address] [id number] [place] [address] Nov, [facility] [address] [id number] [place] [address] Nov, [facility] [address] [id number] [place] [address] Nov, [facility] [address] [id number] [place] [address] Nov, [facility] [address] [facility] [id number] [place] [address] Nov, [facility] [address] [id number] [place] [address] Nov, [facility] [address] [facility] [id number] [place] [address] Nov, [facility] [address] [id number] [place] [address] Nov, [facility] [id number] [place] [address] Nov, [facility] [id number] [place] [address] Nov, [facility] [address] [id number] [place] [address] Nov, [facility] [id number] [place] [address] Nov, [facility] [address] [id number] [place] [address] Nov, [facility] [id number] [place] [address] Oct, [facility] [id number] [place] [address] Oct, [facility] [id number] [place] [address] Oct, [facility] [id number] [place] [address] Oct, [facility] [id number] [place] [address] Oct, [facility] [id number] [place] [address] Oct, [facility] [id number] [place] [address] Oct, [facility] [id number] [place] [address] Oct, [facility] [id number] [place] [address] Oct, [facility] [id number] [place] [address] Aug, [facility] [id number] [place] [address] Aug, IMMUNIZATIONS No Known Immunizations SOCIAL HISTORY Never Assessed REASON FOR VISIT PLAN OF CARE VITAL SIGNS Height 69 in 2013-12-05 Weight 212.56 lbs 2013-12-05 Temperature 97.6 degrees Fahrenheit 2013-12-05 Heart Rate 74 bpm 2013-12-05 Respiratory Rate 18 2013-12-05 Blood pressure systolic 134 mmHg 2013-12-05 Blood pressure diastolic 82 mmHg 2013-12-05 MEDICATIONS Unknown Medications RESULTS No Results PROCEDURES Procedure Date Ordered Result Body Site THER/PROPH/DIAG INJ, SC/IM Dec 05, 2013 INSTRUCTIONS MEDICATIONS ADMINISTERED No Known Medications MEDICAL (GENERAL) HISTORY Type Description Date Medical History hypertension Medical History asthma Medical History Arthritis Medical History Hypoglycemia Medical History Heart Cath 11/05/2013 Medical History herniated disc--Seen by Dr. Troy Michelle pain specialist in [place], [place] Medical History Chronic low back pain Medical History depression Medical History anxiety Medical History Panic attacks Medical History Vitamin B 12 deficiency r/t gastric bypa ss Medical History Low back injections 11/2012, 06/2013 Medical History Thrombocytosis Surgical History tonsillectomy Surgical History gastric bypass--2003-in [place] Unsure of Dr's name. No longer in practice. Band removed 2008 Surgical History hysterectomy-Total r/t fibroid tumors 15 12 Surgical History orthopedic surgery--left low er leg fx, 3 screws placed s/p fall from skating 1980 Surgical History spinal fusion--L4-L5 07/2014 Surgical History carpal tunnel release--bilateral Surgical History Left wrist laceration from broken bowl 1 976 Surgical History colonoscopy normal 11/2013 Hospitalization History [facility] for chest pain 2000 Hospitalization History overnight observation for chest pain 01/2018
--- OUTSIDE RECORDS SUMMARY | 2020-06-19 02:03 | XMS REPORT ---
Author Author ARMANDO Mahsa ASHVIN Organization [facility] Address [address] [place] [address] Care Team Providers Care Manager Zone Name Role Phone ARMANDONYASIA DIAZY Unavailable PROBLEMS Type Condition ICD9-CM Code HMW32-MR Code Onset Dates Condition S tatus SNOMED Code Problem Chronic pain syndrome G89.4 Active 829612463 Problem Other constipation K59.09 Active 1 [id number] Problem Anxiety F41.9 Active 26618273 Problem Primary insomnia F51.01 Active 193 390429 Problem Atherosclerosis of ione co ronary artery of ione heart without angina pectoris I25.10 Active [id number] Problem Essential hypertension I10 Active 15776127 Problem Hyperlipidemia, unspecified hyperlipidemia E78.5 Active 13752655 Problem Major depressive disorder, recurrent episode, un specified severity F33.9 Active 92677629 Problem Allergic rhinitis J30.9 Active 61 862349 Problem Fibromyalgia M79.7 Active 7211155 7 Problem GERD (gastroesophageal reflux disease) K21.9 Active 052594284 Problem Degenerative disc disease, thoracic M51.34 Active 63474573 Problem Bilateral low back pain, with sciatica presence unspecifie d M54.5 Active 132668905 Problem Moderate episode of recurrent major depressive disorder F33.1 Active 598700805 Problem B12 deficiency E53.8 Active 33931 4004 Problem Chronic obstructive pulmonary disease, unspecified COPD ty pe J44.9 Active 37544389 Problem CKD (chronic kidney disease) stage 3, GFR 30-59 ml/min N18.3 Active 841245250 Problem Cannabis abuse F12.10 Active 44919 009 Problem Degenerative disc disease, cervical M50.30 Active [id number] ALLERGIES No Information ENCOUNTERS Encounter Location Date Diagnosis [facility] [address] [id number] [place] [address] Nov, [facility] [address] [id number] [place] [address] Oct, Moderate episode of recurrent major depr essive disorder F33.1 ; Chronic obstructive pulmonary disease, unspecified COPD type J44.9 ; CKD (chronic kidney disease) stage 3, GFR 30-59 ml/min N18.3 ; Essential hypertension I10 and Possible exposure to STD Z20.2 [place] [address] [address] Oct, Essential hypertension I10 [place] [address] [address] Oct, [place] [address] [address] Sep, Essential hypertension I10 [place] [address] [address] Sep, [place] [address] [address] Sep, [place] [address] [address] Sep, [place] [address] [address] Aug, Essential hypertension I10 [place] [address] [address] Aug, Essential hypertension I10 [place] [address] [address] Jul, Allergic rhinitis J30.9 ; CKD (chronic k idney disease) stage 3, GFR 30-59 ml/min N18.3 ; Essential hypertension I10 and Moderate episode of recurrent major depressive disorder F33.1 [place] [address] [address] 11 Jul, 2019 Elevated platelet count R79.89 ; B12 def iciency E53.8 ; Hyperlipidemia, unspecified hyperlipidemia E78.5 and CKD (chronic kidney disease) stage 3, GFR 30-59 ml/min N18.3 [place] [address] [address] Apr, B12 deficiency E53.8 [place] [address] [address] Jan, Periumbilical hernia K42.9 ; CKD (chroni c kidney disease) stage 3, GFR 30-59 ml/min N18.3 ; Essential hypertension I10 ; GERD (gastroesophageal reflux disease) K21.9 ; Hyperlipidemia, unspecified hyperlipidemia E78.5 and Major depressive disorder, recurrent episode, unspecified severity F33.9 [place] [address] [place] [address] 12 Dec, 2018 Anxiety F41.9 [place] [address] [address] Nov, Elevated platelet count R79.89 [place] [address] [address] 15 Nov, 2018 [place] [address] [address] Nov, Elevated platelet count R79.89 [place] [address] [address] Nov, Anxiety F41.9 [place] [address] [address] Nov, Bilateral low back pain, with sciatica p resence unspecified M54.5 ; Cervicalgia M54.2 ; Degenerative disc disease, cervical M50.30 and Degenerative disc disease, thoracic M51.[address] [address] Nov, Chronic pain syndrome G89.4 and Bilatera l low back pain, with sciatica presence unspecified M54.[address] [address] Oct, Umbilical hernia without obstruction and without gangrene K42.9 [place] [address] [address] Oct, Chronic pain syndrome G89.4 [place] [address] [address] 13 Oct, 2018 Chronic pain syndrome G89.4 and Anxiety F41.9 [place] [address] [address] Oct, Elevated platelet count R79.89 [place] [address] [address] Oct, CKD (chronic kidney disease) stage 3, GF R 30-59 ml/min N18.3 ; Other chest pain R07.89 ; Acute midline thoracic back pain M54.6 ; Essential hypertension I10 and History of osteoporosis Z87.39 [place] [address] [address] Sep, Chronic pain syndrome G89.4 [place] [address] [address] Sep, [address] [address] Sep, Anxiety F41.9 and Chronic pain syndrome G89.4 [place] [address] [address] 18 Aug, 2018 Chronic pain syndrome G89.4 and Anxiety F41.9 [place] [address] [address] Aug, [place] [address] [address] Aug, Cannabis abuse F12.10 and Controlled sub stance agreement terminated Z91.14 [place] [address] [address] Jul, Chronic pain syndrome G89.4 ; Bilateral low back pain, with sciatica presence unspecified M54.5 ; Chronic prescription opiate use Z79.899 ; Essential hypertension I10 ; Hyperlipidemia, unspecified hyperlipidemia E78.5 ; CKD (chronic kidney disease) stage 3, GFR 30-59 ml/min N18.3 and Allergic rhinitis J30.9 [place] [address] [address] Jul, Chronic pain syndrome G89.4 and Anxiety F41.9 [place] [address] [address] Jul, Screening for breast cancer Z12.31 and Casandra castillo depressive disorder, recurrent episode, unspecified severity F33.9 [place] [address] [address] Jun, Chronic pain syndrome G89.4 and Anxiety F41.9 [place] [address] [address] May, Chronic pain syndrome G89.4 and Anxiety F41.9 [place] [address] [address] Apr, Anxiety F41.[address] [address] Apr, Chronic prescription opiate use Z79.899 ; Chronic pain syndrome G89.4 ; Essential hypertension I10 ; Allergic rhinitis J30.9 and CKD (chronic kidney disease) stage 3, GFR 30-59 ml/min N18.3 [place] [address] [address] Apr, [place] [address] [address] March, Anxiety F41.9 and Chronic pain syndrome G89.[address] [address] March, CKD (chronic kidney disease) stage 3, GF R 30-59 ml/min N18.3 ; B12 deficiency E53.8 and Hyperlipidemia, unspecified hyperlipidemia E78.5 [place] [address] [address] March, Anxiety F41.9 and Chronic pain syndrome G89.[address] [address] Feb, Anxiety F41.9 and Chronic pain syndrome G89.4 [place] [address] [address] Jan, B12 deficiency E53.8 [place] [address] [address] Jan, [place] [address] [address] Jan, Anxiety F41.9 ; Chronic pain syndrome G8 9.4 and Essential hypertension I10 [place] [address] [address] Jan, CKD (chronic kidney disease) stage 3, [...] Subacromial bursitis of right shoulder joint M75.51 [place] [address] [address] Dec, Essential hypertension I10 [place] [address] [address] Dec, Chronic pain syndrome G89.4 [place] [address] [address] Dec, Chronic pain syndrome G89.4 [place] [address] [address] Nov, [place] [address] [address] Nov, Chronic pain syndrome G89.4 and Anxiety F41.9 [place] [address] [address] Oct, Chronic pain syndrome G89.4 ; Other cons tipation K59.09 and Chronic prescription opiate use Z79.899 [place] [address] [address] Oct, Chronic pain syndrome G89.4 and Anxiety F41.9 [place] [address] [address] Sep, Essential hypertension I10 [place] [address] [address] Sep, Chronic pain syndrome G89.4 and Anxiety F41.9 [place] [address] [address] Aug, Chronic pain syndrome G89.4 and Anxiety F41.9 [place] [address] [address] Jul, Essential hypertension I10 [place] [address] [address] Jul, Chronic obstructive pulmonary disease, u nspecified COPD type J44.9 [place] [address] [address] Jul, Chronic pain syndrome G89.4 and Anxiety F41.9 [place] [address] [address] 13 Jul, 2017 Chronic pain syndrome G89.4 ; Essential hypertension I10 ; Fibromyalgia M79.7 ; CKD (chronic kidney disease) stage 3, GFR 30-59 ml/min N18.3 ; Subacromial bursitis, right M75.51 and Goals of care, co unseling/discussion Z71.89 [place] [address] [address] Jun, Chronic pain syndrome G89.4 and Anxiety F41.9 [place] [address] [address] May, Chronic pain syndrome G89.4 and Anxiety F41.9 [place] [address] [address] Apr, Chronic pain syndrome G89.4 and Anxiety F41.[address] [address] Apr, Drug induced constipation K59.03 ; Chron ic pain syndrome G89.4 and CKD (chronic kidney disease) stage 3, GFR 30-59 ml/min N18.3 [place] [address] [address] Apr, Chronic pain syndrome G89.4 and Anxiety F41.[address] [address] March, Chronic pain syndrome G89.4 and Anxiety F41.[address] [address] March, Decreased GFR R94.[address] [address] Feb, [address] [address] Feb, Chronic pain syndrome G89.4 and Anxiety F41.9 [place] [address] [address] Jan, Decreased GFR R94.[address] [address] Jan, Decreased GFR R94.[address] [address] Jan, Allergic rhinitis J30.9 ; Essential hype rtension I10 ; Major depressive disorder, recurrent episode, unspecified severity F33.9 and Primary insomnia F51.[address] [address] 10 Jan, 2017 Acute right-sided thoracic back pain M54 .6 ; Subacromial bursitis of right shoulder joint M75.51 ; Chronic pain syndrome G89.4 and Anxiety F41.9 [place] [address] [address] Jan, Decreased GFR R94.4 [place] [address] [address] Dec, Decreased GFR R94.4 [place] [address] [address] Dec, Decreased GFR R94.4 [place] [address] [address] Dec, Decreased GFR R94.4 [place] [address] [address] Dec, Decreased GFR R94.4 [place] [address] [address] Dec, Anxiety F41.9 and Bilateral low back candis n, with sciatica presence unspecified M54.5 [place] [address] [address] Dec, Thrombocytosis D47.3 ; Hyperlipidemia, u nspecified hyperlipidemia E78.5 ; Need for hepatitis C screening test Z11.59 and B12 deficiency E53.8 [place] [address] [address] Nov, Need for hepatitis C screening test Z11. 59 [place] [address] [address] Nov, Anxiety F41.9 and Bilateral low back candis n, with sciatica presence unspecified M54.5 [place] [address] [address] Oct, Bilateral low back pain, with sciatica p resence unspecified M54.5 ; Chronic prescription opiate use Z79.899 ; Anxiety F41.9 ; Essential hypertension I10 ; Hyperlipidemia, unspecified hyperlipidemia E78.5 ; Health care maintenance Z00.00 and Thrombocytosis D47.3 [place] [address] [address] Sep, [facility] [address] [address] Sep, [facility] [address] [address] Aug, [facility] [address] [address] Jul, B12 deficiency E53.8 [facility] [address] [address] Jul, [place] [address] [address] Jul, Essential hypertension I10 ; Chronic candis n syndrome G89.4 ; Anxiety F41.9 ; Screening for breast cancer Z12.39 ; Atherosclerosis of ione coronary artery of ione heart without angina pectoris I25.10 ; Major depressive disorder, recurrent episode, unspecified severity F33.9 ; Primary insomnia F51.01 and Allergic rhinitis J30.9 [facility] [address] [address] Jun, [facility] [address] [facility] [id number] [place] [address] Jun, Leg wound, right, initial en counter S81.801A and Encounter for immunization Z23 [facility] [address] [address] Jun, Open wound of right ear, unspecified ope n wound type, initial encounter S01.301A [facility] [address] [address] May, B12 deficiency E53.8 [place] [address] [address] May, [facility] [address] [address] May, [facility] [address] [address] May, Chronic pain syndrome G89.4 ; Chronic pr escription opiate use Z79.899 ; Allergic rhinitis J30.9 ; Essential hypertension I10 and Non-healing skin lesion L98.9 [facility] [address] [address] Apr, [facility] [address] [address] March, [facility] [address] [address] Feb, [facility] [address] [address] Feb, [place] [address] [address] Feb, Chronic pain syndrome G89.4 ; Anxiety F4 1.9 ; B12 deficiency E53.8 ; Allergic rhinitis J30.9 ; Fibromyalgia M79.7 ; Actinic keratosis L57.0 ; Skin rash R21 ; Open wound of right ear, unspecified open wound type, initial encounter S01.301A ; Subacromial bursitis, right M75.51 ; GERD (gastroesophageal reflux disease) K21.9 and Chronic obstructive pulmonary disease, unspecified COPD type J44.9 [place] [address] [address] Jan, [facility] [address] [address] Jan, Essential hypertension I10 [facility] [address] [address] Jan, [facility] [address] [address] Jan, [facility] [address] [address] Jan, [facility] [address] [address] Dec, [place] [address] [address] 16 Dec, 2015 Essential hypertension I10 [place] [address] [address] Dec, [place] [address] [address] Dec, B12 deficiency E53.8 and Essential hyper tension I10 [place] [address] [address] Dec, [place] [address] [address] Nov, Right shoulder pain M25.511 [place] [address] [address] Nov, Right shoulder pain M25.511 [place] [address] [address] Nov, Essential hypertension I10 and B12 defic iency E53.8 [place] [address] [address] Nov, Major depressive disorder, recurrent epi sode, unspecified severity F33.9 ; Anxiety F41.9 ; Chronic pain syndrome G89.4 ; Essential hypertension I10 ; Hyperlipidemia, unspecified hyperlipidemia E78.5 ; Chronic prescription opiate use Z79.899 ; Allergic rhinitis J30.9 ; B12 deficiency E53.8 and Right shoulder pain M25.511 [place] [address] [address] Oct, [place] [address] [address] Oct, [place] [address] [address] Sep, [place] [address] [address] Sep, [place] [address] [address] Aug, [facility] [address] [place] [id number] [place] [address] Aug, [facility] [address] [address] Aug, [facility] [address] [address] Aug, Other constipation K59.09 ; Hyperlipidem ia, unspecified hyperlipidemia E78.5 ; Essential hypertension I10 ; Primary insomnia F51.01 ; Anxiety F41.9 ; Chronic pain syndrome G89.4 ; Right shoulder pain M25.511 and Acute cystitis without hematuria N30.00 [facility] [address] [address] Jul, [facility] [address] [address] Jul, [facility] [address] [address] Jun, [facility] [address] [address] Jun, [facility] [address] [address] Jun, [facility] [address] [address] May, [facility] [address] [address] May, Other chronic pain 338.29 ; Hypertension 401.9 and Constipation due to opioid therapy 564.09 [facility] [address] [address] May, [facility] [address] [address] May, [facility] [address] [address] Apr, [facility] [address] [address] Apr, Unspecified essential hypertension 401.9 [facility] [address] [id number] [place] [address] 16 Apr, 2015 [facility] [address] [id number] [place] [address] Apr, [facility] [address] [id number] [place] [address] Apr, [facility] [address] [id number] [place] [address] Apr, [facility] [address] [id number] [place] [address] Apr, [facility] [address] [id number] [place] [address] Apr, [facility] [address] [id number] [place] [address] March, Unspecified essential hypertension 401.9 [facility] [address] [id number] [place] [address] March, [facility] [address] [id number] [place] [address] March, [facility] [address] [id number] [place] [address] 14 Feb, 2015 [facility] [address] [id number] [place] [address] Feb, [facility] [address] [id number] [place] [address] 23 Jan, 2015 [facility] [address] [id number] [place] [address] 23 Jan, 2015 [facility] [address] [id number] [place] [address] 17 Jan, 2015 [facility] [address] [id number] [place] [address] 17 Jan, 2015 [facility] [address] [id number] [place] [address] Jan, [facility] [address] [facility] [id number] [place] [address] Jan, [facility] [address] [facility] [id number] [place] [address] Jan, [facility] [address] [id number] [place] [address] Dec, [facility] [address] [id number] [place] [address] Dec, [facility] [address] [facility] [id number] [place] [address] Dec, [facility] [address] [id number] [place] [address] Nov, [facility] [address] [id number] [place] [address] Nov, [facility] [address] [id number] [place] [address] Oct, [facility] [address] [id number] [place] [address] Oct, [facility] [address] [id number] [place] [address] Oct, [facility] [address] [id number] [place] [address] Oct, [facility] [address] [id number] [place] [address] Oct, [facility] [address] [id number] [place] [address] Oct, [facility] [address] [id number] [place] [address] Oct, [facility] [address] [id number] [place] [address] Oct, [facility] [address] [id number] [place] [address] Sep, [facility] [address] [id number] [place] [address] Sep, [facility] [address] [facility] [id number] [place] [address] Sep, [facility] [address] [id number] [place] [address] Sep, [facility] [address] [id number] [place] [address] Sep, [facility] [address] [id number] [place] [address] Sep, [facility] [address] [id number] [place] [address] Aug, [facility] [address] [id number] [place] [address] Aug, [facility] [address] [id number] [place] [address] Aug, [facility] [address] [id number] [place] [address] Aug, [facility] [address] [id number] [place] [address] Aug, [facility] [address] [id number] [place] [address] Aug, [facility] [address] [id number] [place] [address] Aug, [facility] [address] [id number] [place] [address] Aug, [facility] [address] [id number] [place] [address] Aug, [facility] [address] [id number] [place] [address] Aug, [facility] [address] [id number] [place] [address] Jul, [facility] [address] [id number] [place] [address] Jul, [facility] [address] [id number] [place] [address] Jul, [facility] [address] [facility] [id number] [place] [address] Jul, [facility] [address] [facility] [id number] [place] [address] Jul, [facility] [address] [id number] [place] [address] Jul, [facility] [address] [facility] [id number] [place] [address] Jun, [facility] [address] [facility] [id number] [place] [address] Jun, [facility] [address] [id number] [place] [address] Jun, [facility] [address] [id number] [place] [address] Jun, [facility] [address] [id number] [place] [address] Jun, [facility] [address] [id number] [place] [address] Jun, [facility] [address] [id number] [place] [address] May, [facility] [address] [id number] [place] [address] May, [facility] [address] [id number] [place] [address] May, [facility] [address] [facility] [id number] [place] [address] May, [facility] [address] [id number] [place] [address] May, [facility] [address] [id number] [place] [address] Apr, [facility] [address] [id number] [place] [address] Apr, [facility] [address] [id number] [facility] [address] Apr, [facility] [address] [facility] [id number] [facility] [id number] Apr, [facility] [address] [facility] [id number] [facility] [place] [address] March, [facility] [address] [id number] [facility] [place] [address] March, [facility] [address] [id number] [facility] [place] [address] March, [facility] [address] [id number] [place] [address] March, [facility] [address] [id number] [place] [address] March, [facility] [address] [id number] [place] [address] March, [facility] [address] [facility] [id number] [place] [address] Feb, [facility] [address] [id number] [place] [address] Feb, [facility] [address] [id number] [place] [address] Feb, [facility] [address] [id number] [place] [address] Feb, [facility] [address] [facility] [id number] [place] [address] Feb, [facility] [address] [id number] [place] [address] Feb, [facility] [address] [id number] [place] [address] Feb, [facility] [address] [id number] [place] [address] Feb, [facility] [address] [id number] [place] [address] Jan, [facility] [address] [facility] [id number] [place] [address] Jan, [facility] [address] [id number] [place] [address] Jan, [facility] [address] [id number] [place] [address] Jan, [facility] [address] [id number] [place] [address] Jan, [facility] [address] [facility] [id number] [place] [address] Jan, [facility] [address] [id number] [place] [address] Dec, [facility] [address] [id number] [place] [address] Dec, [facility] [address] [id number] [place] [address] Nov, [facility] [address] [id number] [place] [address] Nov, [facility] [address] [id number] [place] [address] Nov, [facility] [address] [id number] [place] [address] Nov, [facility] [address] [id number] [place] [address] Nov, [facility] [address] [id number] [place] [address] Nov, [facility] [address] [id number] [place] [address] Nov, [facility] [address] [id number] [place] [address] Nov, [facility] [address] [id number] [place] [address] Nov, [facility] [address] [id number] [place] [address] Nov, [facility] [address] [id number] [place] [address] Nov, [facility] [address] [id number] [place] [address] Nov, [facility] [address] [id number] [place] [address] Nov, [facility] [address] [id number] [place] [address] Nov, [facility] [address] [id number] [place] [address] Nov, [facility] [address] [id number] [place] [address] Oct, [facility] [id number] [place] [address] Oct, [facility] [address] [id number] [place] [address] Oct, [facility] [address] [id number] [place] [address] Oct, [facility] [address] [id number] [place] [address] Oct, [facility] [address] [id number] [place] [address] Oct, [facility] [address] [id number] [place] [address] Oct, [facility] [address] [id number] [place] [address] Oct, [facility] [address] [id number] [place] [address] Oct, [facility] [address] [id number] [place] [address] Aug, [facility] [address] [id number] [place] [address] Aug, IMMUNIZATIONS No Known Immunizations SOCIAL HISTORY Never Assessed REASON FOR VISIT PLAN OF CARE VITAL SIGNS MEDICATIONS Unknown Medications RESULTS No Results PROCEDURES No Known procedures INSTRUCTIONS MEDICATIONS ADMINISTERED No Known Medications MEDICAL (GENERAL) HISTORY Type Description Date Medical History hypertension Medical History asthma Medical History Arthritis Medical History Hypoglycemia Medical History Heart Cath 11/05/2013 Medical History herniated disc--Seen by Dr. Troy Michelle pain specialist in [place], [place] Medical History Chronic low back pain [...]
--- OUTSIDE RECORDS SUMMARY | 2020-06-19 02:04 | XMS REPORT ---
Author Author ARMANDO Mahsa ASHVIN Organization [facility] Address [address] [place] [address] Care Team Providers Care Warp Tier Name Role Phone ARMANDONYASIA DIAZY Unavailable PROBLEMS Type Condition ICD9-CM Code [id number] Code Onset Dates Condition S tatus SNOMED Code Problem Chronic pain syndrome G89.4 Active 487668335 Problem Other constipation K59.09 Active 1 [id number] Problem Anxiety F41.9 Active 37630603 Problem Primary insomnia F51.01 Active 193 518125 Problem Atherosclerosis of [place] co ronary artery of [place] heart without angina pectoris I25.10 Active 6880275055924 Problem Essential hypertension I10 Active 77605349 Problem Hyperlipidemia, unspecified hyperlipidemia E78.5 Active 18143357 Problem Major depressive disorder, recurrent episode, un specified severity F33.9 Active 75345781 Problem Allergic rhinitis J30.9 Active 61 394539 Problem Fibromyalgia M79.7 Active 8453300 7 Problem GERD (gastroesophageal reflux disease) K21.9 Active 709665428 Problem Degenerative disc disease, thoracic M51.34 Active 43138577 Problem Bilateral low back pain, with sciatica presence unspecifie d M54.5 Active 720605350 Problem Moderate episode of recurrent major depressive disorder F33.1 Active 466518544 Problem B12 deficiency E53.8 Active 20954 4004 Problem Chronic obstructive pulmonary disease, unspecified COPD ty pe J44.9 Active 31180392 Problem CKD (chronic kidney disease) stage 3, GFR 30-59 ml/min N18.3 Active 007319066 Problem Cannabis abuse F12.10 Active 89594 009 Problem Degenerative disc disease, cervical M50.30 Active 38488355 ALLERGIES No Information ENCOUNTERS Encounter Location Date Diagnosis [facility] [address] [id number] [place] [address] Nov, [facility] [address] [id number] [place] [address] Oct, Moderate episode of recurrent major depr essive disorder F33.1 ; Chronic obstructive pulmonary disease, unspecified COPD type J44.9 ; CKD (chronic kidney disease) stage 3, GFR 30-59 ml/min N18.3 ; Essential hypertension I10 and Possible exposure to STD Z20.2 [place] [address] [address] Oct, Essential hypertension I10 [place] [address] [address] Oct, [place] [address] [address] Sep, Essential hypertension I10 [place] [address] [address] Sep, [place] [address] [address] Sep, [place] [address] [address] Sep, [place] [address] [address] Aug, Essential hypertension I10 [place] [address] [address] Aug, Essential hypertension I10 [place] [address] [address] Jul, Allergic rhinitis J30.9 ; CKD (chronic k idney disease) stage 3, GFR 30-59 ml/min N18.3 ; Essential hypertension I10 and Moderate episode of recurrent major depressive disorder F33.1 [place] [address] [address] 11 Jul, 2019 Elevated platelet count R79.89 ; B12 def iciency E53.8 ; Hyperlipidemia, unspecified hyperlipidemia E78.5 and CKD (chronic kidney disease) stage 3, GFR 30-59 ml/min N18.3 [place] [address] [address] Apr, B12 deficiency E53.8 [place] [address] [address] Jan, Periumbilical hernia K42.9 ; CKD (chroni c kidney disease) stage 3, GFR 30-59 ml/min N18.3 ; Essential hypertension I10 ; GERD (gastroesophageal reflux disease) K21.9 ; Hyperlipidemia, unspecified hyperlipidemia E78.5 and Major depressive disorder, recurrent episode, unspecified severity F33.9 [place] [address] [place] [address] 12 Dec, 2018 Anxiety F41.9 [place] [address] [address] Nov, Elevated platelet count R79.89 [place] [address] [address] 15 Nov, 2018 [place] [address] [address] Nov, Elevated platelet count R79.89 [place] [address] [address] Nov, Anxiety F41.9 [place] [address] [address] Nov, Bilateral low back pain, with sciatica p resence unspecified M54.5 ; Cervicalgia M54.2 ; Degenerative disc disease, cervical M50.30 and Degenerative disc disease, thoracic M51.[address] [address] Nov, Chronic pain syndrome G89.4 and Bilatera l low back pain, with sciatica presence unspecified M54.[address] [address] Oct, Umbilical hernia without obstruction and without gangrene K42.9 [place] [address] [address] Oct, Chronic pain syndrome G89.4 [place] [address] [address] 13 Oct, 2018 Chronic pain syndrome G89.4 and Anxiety F41.9 [place] [address] [address] Oct, Elevated platelet count R79.89 [place] [address] [address] Oct, CKD (chronic kidney disease) stage 3, GF R 30-59 ml/min N18.3 ; Other chest pain R07.89 ; Acute midline thoracic back pain M54.6 ; Essential hypertension I10 and History of osteoporosis Z87.39 [place] [address] [address] Sep, Chronic pain syndrome G89.4 [place] [address] [address] Sep, [address] [address] Sep, Anxiety F41.9 and Chronic pain syndrome G89.4 [place] [address] [address] 18 Aug, 2018 Chronic pain syndrome G89.4 and Anxiety F41.9 [place] [address] [address] Aug, [place] [address] [address] Aug, Cannabis abuse F12.10 and Controlled sub stance agreement terminated Z91.14 [place] [address] [address] Jul, Chronic pain syndrome G89.4 ; Bilateral low back pain, with sciatica presence unspecified M54.5 ; Chronic prescription opiate use Z79.899 ; Essential hypertension I10 ; Hyperlipidemia, unspecified hyperlipidemia E78.5 ; CKD (chronic kidney disease) stage 3, GFR 30-59 ml/min N18.3 and Allergic rhinitis J30.9 [place] [address] [address] Jul, Chronic pain syndrome G89.4 and Anxiety F41.9 [place] [address] [address] Jul, Screening for breast cancer Z12.31 and Casandra castillo depressive disorder, recurrent episode, unspecified severity F33.9 [place] [address] [address] Jun, Chronic pain syndrome G89.4 and Anxiety F41.9 [place] [address] [address] May, Chronic pain syndrome G89.4 and Anxiety F41.9 [place] [address] [address] Apr, Anxiety F41.[address] [address] Apr, Chronic prescription opiate use Z79.899 ; Chronic pain syndrome G89.4 ; Essential hypertension I10 ; Allergic rhinitis J30.9 and CKD (chronic kidney disease) stage 3, GFR 30-59 ml/min N18.3 [place] [address] [address] Apr, [place] [address] [address] March, Anxiety F41.9 and Chronic pain syndrome G89.[address] [address] March, CKD (chronic kidney disease) stage 3, GF R 30-59 ml/min N18.3 ; B12 deficiency E53.8 and Hyperlipidemia, unspecified hyperlipidemia E78.5 [place] [address] [address] March, Anxiety F41.9 and Chronic pain syndrome G89.[address] [address] Feb, Anxiety F41.9 and Chronic pain syndrome G89.4 [place] [address] [address] Jan, B12 deficiency E53.8 [place] [address] [address] Jan, [place] [address] [address] Jan, Anxiety F41.9 ; Chronic pain syndrome G8 9.4 and Essential hypertension I10 [place] [address] [address] Jan, CKD (chronic kidney disease) stage 3, [...] Subacromial bursitis of right shoulder joint M75.51 [place] [address] [address] Dec, Essential hypertension I10 [place] [address] [address] Dec, Chronic pain syndrome G89.4 [place] [address] [address] Dec, Chronic pain syndrome G89.4 [place] [address] [address] Nov, [place] [address] [address] Nov, Chronic pain syndrome G89.4 and Anxiety F41.9 [place] [address] [address] Oct, Chronic pain syndrome G89.4 ; Other cons tipation K59.09 and Chronic prescription opiate use Z79.899 [place] [address] [address] Oct, Chronic pain syndrome G89.4 and Anxiety F41.9 [place] [address] [address] Sep, Essential hypertension I10 [place] [address] [address] Sep, Chronic pain syndrome G89.4 and Anxiety F41.9 [place] [address] [address] Aug, Chronic pain syndrome G89.4 and Anxiety F41.9 [place] [address] [address] Jul, Essential hypertension I10 [place] [address] [address] Jul, Chronic obstructive pulmonary disease, u nspecified COPD type J44.9 [place] [address] [address] Jul, Chronic pain syndrome G89.4 and Anxiety F41.9 [place] [address] [address] 13 Jul, 2017 Chronic pain syndrome G89.4 ; Essential hypertension I10 ; Fibromyalgia M79.7 ; CKD (chronic kidney disease) stage 3, GFR 30-59 ml/min N18.3 ; Subacromial bursitis, right M75.51 and Goals of care, co unseling/discussion Z71.89 [place] [address] [address] Jun, Chronic pain syndrome G89.4 and Anxiety F41.9 [place] [address] [address] May, Chronic pain syndrome G89.4 and Anxiety F41.9 [place] [address] [address] Apr, Chronic pain syndrome G89.4 and Anxiety F41.[address] [address] Apr, Drug induced constipation K59.03 ; Chron ic pain syndrome G89.4 and CKD (chronic kidney disease) stage 3, GFR 30-59 ml/min N18.3 [place] [address] [address] Apr, Chronic pain syndrome G89.4 and Anxiety F41.[address] [address] March, Chronic pain syndrome G89.4 and Anxiety F41.[address] [address] March, Decreased GFR R94.[address] [address] Feb, [address] [address] Feb, Chronic pain syndrome G89.4 and Anxiety F41.9 [place] [address] [address] Jan, Decreased GFR R94.[address] [address] Jan, Decreased GFR R94.[address] [address] Jan, Allergic rhinitis J30.9 ; Essential hype rtension I10 ; Major depressive disorder, recurrent episode, unspecified severity F33.9 and Primary insomnia F51.[address] [address] 10 Jan, 2017 Acute right-sided thoracic back pain M54 .6 ; Subacromial bursitis of right shoulder joint M75.51 ; Chronic pain syndrome G89.4 and Anxiety F41.9 [place] [address] [address] Jan, Decreased GFR R94.4 [place] [address] [address] Dec, Decreased GFR R94.4 [place] [address] [address] Dec, Decreased GFR R94.4 [place] [address] [address] Dec, Decreased GFR R94.4 [place] [address] [address] Dec, Decreased GFR R94.4 [place] [address] [address] Dec, Anxiety F41.9 and Bilateral low back candis n, with sciatica presence unspecified M54.5 [place] [address] [address] Dec, Thrombocytosis D47.3 ; Hyperlipidemia, u nspecified hyperlipidemia E78.5 ; Need for hepatitis C screening test Z11.59 and B12 deficiency E53.8 [place] [address] [address] Nov, Need for hepatitis C screening test Z11. 59 [place] [address] [address] Nov, Anxiety F41.9 and Bilateral low back candis n, with sciatica presence unspecified M54.5 [place] [address] [address] Oct, Bilateral low back pain, with sciatica p resence unspecified M54.5 ; Chronic prescription opiate use Z79.899 ; Anxiety F41.9 ; Essential hypertension I10 ; Hyperlipidemia, unspecified hyperlipidemia E78.5 ; Health care maintenance Z00.00 and Thrombocytosis D47.3 [place] [address] [address] Sep, [facility] [address] [address] Sep, [facility] [address] [address] Aug, [facility] [address] [address] Jul, B12 deficiency E53.8 [facility] [address] [address] Jul, [place] [address] [address] Jul, Essential hypertension I10 ; Chronic candis n syndrome G89.4 ; Anxiety F41.9 ; Screening for breast cancer Z12.39 ; Atherosclerosis of [place] coronary artery of [place] heart without angina pectoris I25.10 ; Major depressive disorder, recurrent episode, unspecified severity F33.9 ; Primary insomnia F51.01 and Allergic rhinitis J30.9 [facility] [address] [address] Jun, [facility] [address] [facility] [id number] [place] [address] Jun, Leg wound, right, initial en counter S81.801A and Encounter for immunization Z23 [facility] [address] [address] Jun, Open wound of right ear, unspecified ope n wound type, initial encounter S01.301A [facility] [address] [address] May, B12 deficiency E53.8 [place] [address] [address] May, [facility] [address] [address] May, [facility] [address] [address] May, Chronic pain syndrome G89.4 ; Chronic pr escription opiate use Z79.899 ; Allergic rhinitis J30.9 ; Essential hypertension I10 and Non-healing skin lesion L98.9 [facility] [address] [address] Apr, [facility] [address] [address] March, [facility] [address] [address] Feb, [facility] [address] [address] Feb, [place] [address] [address] Feb, Chronic pain syndrome G89.4 ; Anxiety F4 1.9 ; B12 deficiency E53.8 ; Allergic rhinitis J30.9 ; Fibromyalgia M79.7 ; Actinic keratosis L57.0 ; Skin rash R21 ; Open wound of right ear, unspecified open wound type, initial encounter S01.301A ; Subacromial bursitis, right M75.51 ; GERD (gastroesophageal reflux disease) K21.9 and Chronic obstructive pulmonary disease, unspecified COPD type J44.9 [place] [address] [address] Jan, [facility] [address] [address] Jan, Essential hypertension I10 [facility] [address] [address] Jan, [facility] [address] [address] Jan, [facility] [address] [address] Jan, [facility] [address] [address] Dec, [place] [address] [address] 16 Dec, 2015 Essential hypertension I10 [place] [address] [address] Dec, [place] [address] [address] Dec, B12 deficiency E53.8 and Essential hyper tension I10 [place] [address] [address] Dec, [place] [address] [address] Nov, Right shoulder pain M25.511 [place] [address] [address] Nov, Right shoulder pain M25.511 [place] [address] [address] Nov, Essential hypertension I10 and B12 defic iency E53.8 [place] [address] [address] Nov, Major depressive disorder, recurrent epi sode, unspecified severity F33.9 ; Anxiety F41.9 ; Chronic pain syndrome G89.4 ; Essential hypertension I10 ; Hyperlipidemia, unspecified hyperlipidemia E78.5 ; Chronic prescription opiate use Z79.899 ; Allergic rhinitis J30.9 ; B12 deficiency E53.8 and Right shoulder pain M25.511 [place] [address] [address] Oct, [place] [address] [address] Oct, [place] [address] [address] Sep, [place] [address] [address] Sep, [place] [address] [address] Aug, [facility] [address] [place] [id number] [place] [address] Aug, [facility] [address] [address] Aug, [facility] [address] [address] Aug, Other constipation K59.09 ; Hyperlipidem ia, unspecified hyperlipidemia E78.5 ; Essential hypertension I10 ; Primary insomnia F51.01 ; Anxiety F41.9 ; Chronic pain syndrome G89.4 ; Right shoulder pain M25.511 and Acute cystitis without hematuria N30.00 [facility] [address] [address] Jul, [facility] [address] [address] Jul, [facility] [address] [address] Jun, [facility] [address] [address] Jun, [facility] [address] [address] Jun, [facility] [address] [address] May, [facility] [address] [address] May, Other chronic pain 338.29 ; Hypertension 401.9 and Constipation due to opioid therapy 564.09 [facility] [address] [address] May, [facility] [address] [address] May, [facility] [address] [address] Apr, [facility] [address] [address] Apr, Unspecified essential hypertension 401.9 [facility] [address] [id number] [place] [address] 16 Apr, 2015 [facility] [address] [id number] [place] [address] Apr, [facility] [address] [id number] [place] [address] Apr, [facility] [address] [id number] [place] [address] Apr, [facility] [address] [id number] [place] [address] Apr, [facility] [address] [id number] [place] [address] Apr, [facility] [address] [id number] [place] [address] March, Unspecified essential hypertension 401.9 [facility] [address] [id number] [place] [address] March, [facility] [address] [id number] [place] [address] March, [facility] [address] [id number] [place] [address] 14 Feb, 2015 [facility] [address] [id number] [place] [address] Feb, [facility] [address] [id number] [place] [address] 23 Jan, 2015 [facility] [address] [id number] [place] [address] 23 Jan, 2015 [facility] [address] [id number] [place] [address] 17 Jan, 2015 [facility] [address] [id number] [place] [address] 17 Jan, 2015 [facility] [address] [id number] [place] [address] Jan, [facility] [address] [facility] [id number] [place] [address] Jan, [facility] [address] [facility] [id number] [place] [address] Jan, [facility] [address] [id number] [place] [address] Dec, [facility] [address] [id number] [place] [address] Dec, [facility] [address] [facility] [id number] [place] [address] Dec, [facility] [address] [id number] [place] [address] Nov, [facility] [address] [id number] [place] [address] Nov, [facility] [address] [id number] [place] [address] Oct, [facility] [address] [id number] [place] [address] Oct, [facility] [address] [id number] [place] [address] Oct, [facility] [address] [id number] [place] [address] Oct, [facility] [address] [id number] [place] [address] Oct, [facility] [address] [id number] [place] [address] Oct, [facility] [address] [id number] [place] [address] Oct, [facility] [address] [id number] [place] [address] Oct, [facility] [address] [id number] [place] [address] Sep, [facility] [address] [id number] [place] [address] Sep, [facility] [address] [facility] [id number] [place] [address] Sep, [facility] [address] [id number] [place] [address] Sep, [facility] [address] [id number] [place] [address] Sep, [facility] [address] [id number] [place] [address] Sep, [facility] [address] [id number] [place] [address] Aug, [facility] [address] [id number] [place] [address] Aug, [facility] [address] [id number] [place] [address] Aug, [facility] [address] [id number] [place] [address] Aug, [facility] [address] [id number] [place] [address] Aug, [facility] [address] [id number] [place] [address] Aug, [facility] [address] [id number] [place] [address] Aug, [facility] [address] [id number] [place] [address] Aug, [facility] [address] [id number] [place] [address] Aug, [facility] [address] [id number] [place] [address] Aug, [facility] [address] [id number] [place] [address] Jul, [facility] [address] [id number] [place] [address] Jul, [facility] [address] [id number] [place] [address] Jul, [facility] [address] [facility] [id number] [place] [address] Jul, [facility] [address] [facility] [id number] [place] [address] Jul, [facility] [address] [id number] [place] [address] Jul, [facility] [address] [facility] [id number] [place] [address] Jun, [facility] [address] [facility] [id number] [place] [address] Jun, [facility] [address] [id number] [place] [address] Jun, [facility] [address] [id number] [place] [address] Jun, [facility] [address] [id number] [place] [address] Jun, [facility] [address] [id number] [place] [address] Jun, [facility] [address] [id number] [place] [address] May, [facility] [address] [id number] [place] [address] May, [facility] [address] [id number] [place] [address] May, [facility] [address] [facility] [id number] [place] [address] May, [facility] [address] [id number] [place] [address] May, [facility] [address] [facility] [id number] [place] [address] Apr, [facility] [address] [id number] [place] [address] Apr, [facility] [address] [id number] [facility], [place] [address] Apr, [facility] [address] [facility] [id number] [facility], [place] [address] Apr, [facility] [address] [facility] [id number] [facility], [place] [address] March, [facility] [address] [id number] [facility], [place] [address] March, [facility] [address] [id number] [facility], [place] [address] March, [facility] [address] [id number] [place] [address] March, [facility] [address] [id number] [place] [address] March, [facility] [address] [id number] [place] [address] March, [facility] [address] [facility] [id number] [place] [address] Feb, [facility] [address] [id number] [place] [address] Feb, [facility] [address] [id number] [place] [address] Feb, [facility] [address] [id number] [place] [address] Feb, [facility] [address] [facility] [id number] [place] [address] Feb, [facility] [address] [id number] [place] [address] Feb, [facility] [address] [id number] [place] [address] Feb, [facility] [address] [id number] [place] [address] Feb, [facility] [address] [id number] [place] [address] Jan, [facility] [address] [facility] [id number] [place] [address] Jan, [facility] [address] [id number] [place] [address] Jan, [facility] [address] [id number] [place] [address] Jan, [facility] [address] [id number] [place] [address] Jan, [facility] [address] [facility] [id number] [place] [address] Jan, [facility] [address] [id number] [place] [address] Dec, [facility] [address] [id number] [place] [address] Dec, [facility] [address] [id number] [place] [address] Nov, [facility] [address] [id number] [place] [address] Nov, [facility] [address] [id number] [place] [address] Nov, [facility] [address] [id number] [place] [address] Nov, [facility] [address] [id number] [place] [address] Nov, [facility] [address] [id number] [place] [address] Nov, [facility] [address] [id number] [place] [address] Nov, [facility] [address] [id number] [place] [address] Nov, [facility] [address] [id number] [place] [address] Nov, [facility] [address] [id number] [place] [address] Nov, [facility] [address] [id number] [place] [address] Nov, [facility] [address] [id number] [place] [address] Nov, [facility] [address] [id number] [place] [address] Nov, [facility] [address] [id number] [place] [address] Nov, [facility] [address] [id number] [place] [address] Nov, [facility] [address] [id number] [place] [address] Oct, [facility] [id number] [place] [address] Oct, [facility] [address] [id number] [place] [address] Oct, [facility] [address] [id number] [place] [address] Oct, [facility] [address] [id number] [place] [address] Oct, [facility] [address] [id number] [place] [address] Oct, [facility] [address] [id number] [place] [address] Oct, [facility] [address] [id number] [place] [address] Oct, [facility] [address] [id number] [place] [address] Oct, [facility] [address] [id number] [place] [address] Aug, [facility] [address] [id number] [place] [address] Aug, IMMUNIZATIONS No Known Immunizations SOCIAL HISTORY [...] by Dr. Troy Michelle pain specialist in [place], [place] Medical History Chronic low back pain [...]
--- OUTSIDE RECORDS SUMMARY | 2020-06-19 02:04 | XMS REPORT ---
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 Name Role Phone ARMANDONYASIA DIAZY Unavailable PROBLEMS Type Condition ICD9-CM Code HBH15-XW Code Onset Dates Condition S tatus SNOMED Code Problem Chronic pain syndrome G89.4 Active 898827195 Problem Other constipation K59.09 Active 1 [id number] Problem Anxiety F41.9 Active 11912263 Problem Primary insomnia F51.01 Active 193 684387 Problem Atherosclerosis of [place] co ronary artery of [place] heart without angina pectoris I25.10 Active [id number] Problem Essential hypertension I10 Active 03547500 Problem Hyperlipidemia, unspecified hyperlipidemia E78.5 Active 48554870 Problem Major depressive disorder, recurrent episode, un specified severity F33.9 Active 54100153 Problem Allergic rhinitis J30.9 Active 61 841746 Problem Fibromyalgia M79.7 Active 0938395 7 Problem GERD (gastroesophageal reflux disease) K21.9 Active 823940951 Problem Degenerative disc disease, thoracic M51.34 Active 24209241 Problem Bilateral low back pain, with sciatica presence unspecifie d M54.5 Active 707583569 Problem Moderate episode of recurrent major depressive disorder F33.1 Active 356360107 Problem B12 deficiency E53.8 Active 70720 4004 Problem Chronic obstructive pulmonary disease, unspecified COPD ty pe J44.9 Active 35269906 Problem CKD (chronic kidney disease) stage 3, GFR 30-59 ml/min N18.3 Active 934054053 Problem Cannabis abuse F12.10 Active 52388 009 Problem Degenerative disc disease, cervical M50.30 Active 67663536 ALLERGIES No Information ENCOUNTERS Encounter Location Date Diagnosis [facility] [address] [id number] [place] [address] Nov, [facility] [address] [id number] [place] [address] Oct, Moderate episode of recurrent major depr essive disorder F33.1 ; Chronic obstructive pulmonary disease, unspecified COPD type J44.9 ; CKD (chronic kidney disease) stage 3, GFR 30-59 ml/min N18.3 ; Essential hypertension I10 and Possible exposure to STD Z20.2 [place] [address] [address] Oct, Essential hypertension I10 [place] [address] [address] Oct, [place] [address] [address] Sep, Essential hypertension I10 [place] [address] [address] Sep, [place] [address] [address] Sep, [place] [address] [address] Sep, [place] [address] [address] Aug, Essential hypertension I10 [place] [address] [address] Aug, Essential hypertension I10 [place] [address] [address] Jul, Allergic rhinitis J30.9 ; CKD (chronic k idney disease) stage 3, GFR 30-59 ml/min N18.3 ; Essential hypertension I10 and Moderate episode of recurrent major depressive disorder F33.1 [place] [address] [address] 11 Jul, 2019 Elevated platelet count R79.89 ; B12 def iciency E53.8 ; Hyperlipidemia, unspecified hyperlipidemia E78.5 and CKD (chronic kidney disease) stage 3, GFR 30-59 ml/min N18.3 [place] [address] [address] Apr, B12 deficiency E53.8 [place] [address] [address] Jan, Periumbilical hernia K42.9 ; CKD (chroni c kidney disease) stage 3, GFR 30-59 ml/min N18.3 ; Essential hypertension I10 ; GERD (gastroesophageal reflux disease) K21.9 ; Hyperlipidemia, unspecified hyperlipidemia E78.5 and Major depressive disorder, recurrent episode, unspecified severity F33.9 [place] [address] [place] [id number] 12 Dec, 2018 Anxiety F41.9 [place] [address] [address] Nov, Elevated platelet count R79.89 [place] [address] [address] 15 Nov, 2018 [place] [address] [address] Nov, Elevated platelet count R79.89 [place] [address] [address] Nov, Anxiety F41.9 [place] [address] [address] Nov, Bilateral low back pain, with sciatica p resence unspecified M54.5 ; Cervicalgia M54.2 ; Degenerative disc disease, cervical M50.30 and Degenerative disc disease, thoracic M51.[address] [address] Nov, Chronic pain syndrome G89.4 and Bilatera l low back pain, with sciatica presence unspecified M54.[address] [address] Oct, Umbilical hernia without obstruction and without gangrene K42.9 [place] [address] [address] Oct, Chronic pain syndrome G89.4 [place] [address] [address] 13 Oct, 2018 Chronic pain syndrome G89.4 and Anxiety F41.9 [place] [address] [address] Oct, Elevated platelet count R79.89 [place] [address] [address] Oct, CKD (chronic kidney disease) stage 3, GF R 30-59 ml/min N18.3 ; Other chest pain R07.89 ; Acute midline thoracic back pain M54.6 ; Essential hypertension I10 and History of osteoporosis Z87.39 [place] [address] [address] Sep, Chronic pain syndrome G89.4 [place] [address] [address] Sep, [address] [address] Sep, Anxiety F41.9 and Chronic pain syndrome G89.4 [place] [address] [address] 18 Aug, 2018 Chronic pain syndrome G89.4 and Anxiety F41.9 [place] [address] [address] Aug, [place] [address] [address] Aug, Cannabis abuse F12.10 and Controlled sub stance agreement terminated Z91.14 [place] [address] [address] Jul, Chronic pain syndrome G89.4 ; Bilateral low back pain, with sciatica presence unspecified M54.5 ; Chronic prescription opiate use Z79.899 ; Essential hypertension I10 ; Hyperlipidemia, unspecified hyperlipidemia E78.5 ; CKD (chronic kidney disease) stage 3, GFR 30-59 ml/min N18.3 and Allergic rhinitis J30.9 [place] [address] [address] Jul, Chronic pain syndrome G89.4 and Anxiety F41.9 [place] [address] [address] Jul, Screening for breast cancer Z12.31 and Casandra castillo depressive disorder, recurrent episode, unspecified severity F33.9 [place] [address] [address] Jun, Chronic pain syndrome G89.4 and Anxiety F41.9 [place] [address] [address] May, Chronic pain syndrome G89.4 and Anxiety F41.9 [place] [address] [address] Apr, Anxiety F41.[address] [address] Apr, Chronic prescription opiate use Z79.899 ; Chronic pain syndrome G89.4 ; Essential hypertension I10 ; Allergic rhinitis J30.9 and CKD (chronic kidney disease) stage 3, GFR 30-59 ml/min N18.3 [place] [address] [address] Apr, [place] [address] [address] March, Anxiety F41.9 and Chronic pain syndrome G89.[address] [address] March, CKD (chronic kidney disease) stage 3, GF R 30-59 ml/min N18.3 ; B12 deficiency E53.8 and Hyperlipidemia, unspecified hyperlipidemia E78.5 [place] [address] [address] March, Anxiety F41.9 and Chronic pain syndrome G89.[address] [address] Feb, Anxiety F41.9 and Chronic pain syndrome G89.4 [place] [address] [address] Jan, B12 deficiency E53.8 [place] [address] [address] Jan, [place] [address] [address] Jan, Anxiety F41.9 ; Chronic pain syndrome G8 9.4 and Essential hypertension I10 [place] [address] [address] Jan, CKD (chronic kidney disease) stage 3, [...] Subacromial bursitis of right shoulder joint M75.51 [place] [address] [address] Dec, Essential hypertension I10 [place] [address] [address] Dec, Chronic pain syndrome G89.4 [place] [address] [address] Dec, Chronic pain syndrome G89.4 [place] [address] [address] Nov, [place] [address] [address] Nov, Chronic pain syndrome G89.4 and Anxiety F41.9 [place] [address] [address] Oct, Chronic pain syndrome G89.4 ; Other cons tipation K59.09 and Chronic prescription opiate use Z79.899 [place] [address] [address] Oct, Chronic pain syndrome G89.4 and Anxiety F41.9 [place] [address] [address] Sep, Essential hypertension I10 [place] [address] [address] Sep, Chronic pain syndrome G89.4 and Anxiety F41.9 [place] [address] [address] Aug, Chronic pain syndrome G89.4 and Anxiety F41.9 [place] [address] [address] Jul, Essential hypertension I10 [place] [address] [address] Jul, Chronic obstructive pulmonary disease, u nspecified COPD type J44.9 [place] [address] [address] Jul, Chronic pain syndrome G89.4 and Anxiety F41.9 [place] [address] [address] 13 Jul, 2017 Chronic pain syndrome G89.4 ; Essential hypertension I10 ; Fibromyalgia M79.7 ; CKD (chronic kidney disease) stage 3, GFR 30-59 ml/min N18.3 ; Subacromial bursitis, right M75.51 and Goals of care, co unseling/discussion Z71.89 [place] [address] [address] Jun, Chronic pain syndrome G89.4 and Anxiety F41.9 [place] [address] [address] May, Chronic pain syndrome G89.4 and Anxiety F41.9 [place] [address] [address] Apr, Chronic pain syndrome G89.4 and Anxiety F41.[address] [address] Apr, Drug induced constipation K59.03 ; Chron ic pain syndrome G89.4 and CKD (chronic kidney disease) stage 3, GFR 30-59 ml/min N18.3 [place] [address] [address] Apr, Chronic pain syndrome G89.4 and Anxiety F41.[address] [address] March, Chronic pain syndrome G89.4 and Anxiety F41.[address] [address] March, Decreased GFR R94.[address] [address] Feb, [address] [address] Feb, Chronic pain syndrome G89.4 and Anxiety F41.9 [place] [address] [address] Jan, Decreased GFR R94.[address] [address] Jan, Decreased GFR R94.[address] [address] Jan, Allergic rhinitis J30.9 ; Essential hype rtension I10 ; Major depressive disorder, recurrent episode, unspecified severity F33.9 and Primary insomnia F51.[address] [address] 10 Jan, 2017 Acute right-sided thoracic back pain M54 .6 ; Subacromial bursitis of right shoulder joint M75.51 ; Chronic pain syndrome G89.4 and Anxiety F41.9 [place] [address] [address] Jan, Decreased GFR R94.4 [place] [address] [address] Dec, Decreased GFR R94.4 [place] [address] [address] Dec, Decreased GFR R94.4 [place] [address] [address] Dec, Decreased GFR R94.4 [place] [address] [address] Dec, Decreased GFR R94.4 [place] [address] [address] Dec, Anxiety F41.9 and Bilateral low back candis n, with sciatica presence unspecified M54.5 [place] [address] [address] Dec, Thrombocytosis D47.3 ; Hyperlipidemia, u nspecified hyperlipidemia E78.5 ; Need for hepatitis C screening test Z11.59 and B12 deficiency E53.8 [place] [address] [address] Nov, Need for hepatitis C screening test Z11. 59 [place] [address] [address] Nov, Anxiety F41.9 and Bilateral low back candis n, with sciatica presence unspecified M54.5 [place] [address] [address] Oct, Bilateral low back pain, with sciatica p resence unspecified M54.5 ; Chronic prescription opiate use Z79.899 ; Anxiety F41.9 ; Essential hypertension I10 ; Hyperlipidemia, unspecified hyperlipidemia E78.5 ; Health care maintenance Z00.00 and Thrombocytosis D47.3 [place] [address] [address] Sep, [facility] [place] [address] [address] Sep, [facility] [place] [address] [address] Aug, [facility] [place] [address] [address] Jul, B12 deficiency E53.8 [facility] [place] [address] [address] Jul, [place] [address] [address] Jul, Essential hypertension I10 ; Chronic candis n syndrome G89.4 ; Anxiety F41.9 ; Screening for breast cancer Z12.39 ; Atherosclerosis of [place] coronary artery of [place] heart without angina pectoris I25.10 ; Major depressive disorder, recurrent episode, unspecified severity F33.9 ; Primary insomnia F51.01 and Allergic rhinitis J30.9 [facility] [place] [address] [address] Jun, [facility] [address] [facility] [id number] [place] [address] Jun, Leg wound, right, initial en counter S81.801A and Encounter for immunization Z23 [facility] [place] [address] [address] Jun, Open wound of right ear, unspecified ope n wound type, initial encounter S01.301A [facility] [place] [address] [address] May, B12 deficiency E53.8 [place] [address] [address] May, [facility] [place] [address] [address] May, [facility] [place] [address] [address] May, Chronic pain syndrome G89.4 ; Chronic pr escription opiate use Z79.899 ; Allergic rhinitis J30.9 ; Essential hypertension I10 and Non-healing skin lesion L98.9 [facility] [place] [address] [address] Apr, [facility] [place] [address] [address] March, [facility] [place] [address] [address] Feb, [facility] [place] [address] [address] Feb, [place] [address] [address] Feb, Chronic pain syndrome G89.4 ; Anxiety F4 1.9 ; B12 deficiency E53.8 ; Allergic rhinitis J30.9 ; Fibromyalgia M79.7 ; Actinic keratosis L57.0 ; Skin rash R21 ; Open wound of right ear, unspecified open wound type, initial encounter S01.301A ; Subacromial bursitis, right M75.51 ; GERD (gastroesophageal reflux disease) K21.9 and Chronic obstructive pulmonary disease, unspecified COPD type J44.9 [place] [address] [address] Jan, [facility] [place] [address] [address] Jan, Essential hypertension I10 [facility] [place] [address] [address] Jan, [facility] [place] [address] [address] Jan, [facility] [place] [address] [address] Jan, [facility] [place] [address] [address] Dec, [place] [address] [address] 16 Dec, 2015 Essential hypertension I10 [place] [address] [address] Dec, [place] [address] [address] Dec, B12 deficiency E53.8 and Essential hyper tension I10 [place] [address] [address] Dec, [place] [address] [address] Nov, Right shoulder pain M25.511 [place] [address] [address] Nov, Right shoulder pain M25.511 [place] [address] [address] Nov, Essential hypertension I10 and B12 defic iency E53.8 [place] [address] [address] Nov, Major depressive disorder, recurrent epi sode, unspecified severity F33.9 ; Anxiety F41.9 ; Chronic pain syndrome G89.4 ; Essential hypertension I10 ; Hyperlipidemia, unspecified hyperlipidemia E78.5 ; Chronic prescription opiate use Z79.899 ; Allergic rhinitis J30.9 ; B12 deficiency E53.8 and Right shoulder pain M25.511 [place] [address] [address] Oct, [place] [address] [address] Oct, [place] [address] [address] Sep, [place] [address] [address] Sep, [place] [address] [address] Aug, [facility] [place] [address] [place] [id number] [place] [address] Aug, [facility] [place] [address] [address] Aug, [facility] [place] [address] [address] Aug, Other constipation K59.09 ; Hyperlipidem ia, unspecified hyperlipidemia E78.5 ; Essential hypertension I10 ; Primary insomnia F51.01 ; Anxiety F41.9 ; Chronic pain syndrome G89.4 ; Right shoulder pain M25.511 and Acute cystitis without hematuria N30.00 [facility] [place] [address] [address] Jul, [facility] [place] [address] [address] Jul, [facility] [place] [address] [address] Jun, [facility] [place] [address] [address] Jun, [facility] [place] [address] [address] Jun, [facility] [place] [address] [address] May, [facility] [place] [address] [address] May, Other chronic pain 338.29 ; Hypertension 401.9 and Constipation due to opioid therapy 564.09 [facility] [place] [address] [address] May, [facility] [place] [address] [address] May, [facility] [place] [address] [address] Apr, [facility] [place] [address] [address] Apr, Unspecified essential hypertension 401.9 [facility] [address] [id number] [place] [address] 16 Apr, 2015 [facility] [address] [id number] [place] [address] Apr, [facility] [address] [id number] [place] [address] Apr, [facility] [address] [id number] [place] [address] Apr, [facility] [address] [id number] [place] [address] Apr, [facility] [address] [id number] [place] [address] Apr, [facility] [address] [id number] [place] [address] March, Unspecified essential hypertension 401.9 [facility] [address] [id number] [place] [address] March, [facility] [address] [id number] [place] [address] March, [facility] [address] [id number] [place] [address] 14 Feb, 2015 [facility] [address] [id number] [place] [address] Feb, [facility] [address] [id number] [place] [address] 23 Jan, 2015 [facility] [address] [id number] [place] [address] 23 Jan, 2015 [facility] [address] [id number] [place] [address] 17 Jan, 2015 [facility] [address] [id number] [place] [address] 17 Jan, 2015 [facility] [address] [id number] [place] [address] Jan, [facility] [address] [facility] [id number] [place] [address] Jan, [facility] [address] [facility] [id number] [place] [address] Jan, [facility] [address] [id number] [place] [address] Dec, [facility] [address] [id number] [place] [address] Dec, [facility] [address] [facility] [id number] [place] [address] Dec, [facility] [address] [id number] [place] [address] Nov, [facility] [address] [id number] [place] [address] Nov, [facility] [address] [id number] [place] [address] Oct, [facility] [address] [id number] [place] [address] Oct, [facility] [address] [id number] [place] [address] Oct, [facility] [address] [id number] [place] [address] Oct, [facility] [address] [id number] [place] [address] Oct, [facility] [address] [id number] [place] [address] Oct, [facility] [address] [id number] [place] [address] Oct, [facility] [address] [id number] [place] [address] Oct, [facility] [address] [id number] [place] [address] Sep, [facility] [address] [id number] [place] [address] Sep, [facility] [address] [facility] [id number] [place] [address] Sep, [facility] [address] [id number] [place] [address] Sep, [facility] [address] [id number] [place] [address] Sep, [facility] [address] [id number] [place] [address] Sep, [facility] [address] [id number] [place] [address] Aug, [facility] [address] [id number] [place] [address] Aug, [facility] [address] [id number] [place] [address] Aug, [facility] [address] [id number] [place] [address] Aug, [facility] [address] [id number] [place] [address] Aug, [facility] [address] [id number] [place] [address] Aug, [facility] [address] [id number] [place] [address] Aug, [facility] [address] [id number] [place] [address] Aug, [facility] [address] [id number] [place] [address] Aug, [facility] [address] [id number] [place] [address] Aug, [facility] [address] [id number] [place] [address] Jul, [facility] [address] [id number] [place] [address] Jul, [facility] [address] [id number] [place] [address] Jul, [facility] [address] [facility] [id number] [place] [address] Jul, [facility] [address] [facility] [id number] [place] [address] Jul, [facility] [address] [facility] [id number] [place] [address] Jul, [facility] [address] [facility] [id number] [place] [address] Jun, [facility] [address] [facility] [id number] [place] [address] Jun, [facility] [address] [id number] [place] [address] Jun, [facility] [address] [id number] [place] [address] Jun, [facility] [address] [id number] [place] [address] Jun, [facility] [address] [id number] [place] [address] Jun, [facility] [address] [id number] [place] [address] May, [facility] [address] [id number] [place] [address] May, [facility] [address] [id number] [place] [address] May, [facility] [address] [facility] [id number] [place] [address] May, [facility] [address] [id number] [place] [address] May, [facility] [address] [id number] [place] [address] Apr, [facility] [address] [id number] [place] [address] Apr, [facility] [address] [id number] [facility] [place] [address] Apr, [facility] [address] [facility] [id number] [facility] [place] [address] Apr, [facility] [address] [facility] [id number] [facility] [place] [address] March, [facility] [address] [id number] [facility] [place] [address] March, [facility] [address] [id number] [facility] [place] [address] March, [facility] [address] [id number] [place] [address] March, [facility] [address] [id number] [place] [address] March, [facility] [address] [id number] [place] [address] March, [facility] [address] [facility] [id number] [place] [address] Feb, [facility] [address] [id number] [place] [address] Feb, [facility] [address] [id number] [place] [address] Feb, [facility] [address] [id number] [place] [address] Feb, [facility] [address] [facility] [id number] [place] [address] Feb, [facility] [address] [id number] [place] [address] Feb, [facility] [address] [id number] [place] [address] Feb, [facility] [address] [id number] [place] [address] Feb, [facility] [address] [id number] [place] [address] Jan, [facility] [address] [facility] [id number] [place] [address] Jan, [facility] [address] [id number] [place] [address] Jan, [facility] [address] [id number] [place] [address] Jan, [facility] [address] [id number] [place] [address] Jan, [facility] [address] [facility] [id number] [place] [address] Jan, [facility] [address] [id number] [place] [address] Dec, [facility] [address] [id number] [place] [address] Dec, [facility] [address] [id number] [place] [address] Nov, [facility] [address] [id number] [place] [address] Nov, [facility] [address] [id number] [place] [address] Nov, [facility] [address] [id number] [place] [address] Nov, [facility] [address] [id number] [place] [address] Nov, [facility] [address] [id number] [place] [address] Nov, [facility] [address] [id number] [place] [address] Nov, [facility] [address] [id number] [place] [address] Nov, [facility] [address] [id number] [place] [address] Nov, [facility] [address] [id number] [place] [address] Nov, [facility] [address] [id number] [place] [address] Nov, [facility] [address] [id number] [place] [address] Nov, [facility] [address] [id number] [place] [address] Nov, [facility] [address] [id number] [place] [address] Nov, [facility] [address] [id number] [place] [address] Nov, [facility] [address] [id number] [place] [address] Oct, [facility] [id number] [place] [address] Oct, [facility] [address] [id number] [place] [address] Oct, [facility] [address] [id number] [place] [address] Oct, [facility] [address] [id number] [place] [address] Oct, [facility] [address] [id number] [place] [address] Oct, [facility] [address] [id number] [place] [address] Oct, [facility] [address] [id number] [place] [address] Oct, [facility] [address] [id number] [place] [address] Oct, [facility] [address] [id number] [place] [address] Aug, [facility] [address] [id number] [place] [address] Aug, IMMUNIZATIONS No Known Immunizations SOCIAL HISTORY Never Assessed REASON FOR VISIT PLAN OF CARE VITAL SIGNS Height 69 in 2014-02-03 Weight 207 lbs 2014-02-03 Temperature 97.4 degrees Fahrenheit 2014-02-03 Heart Rate 78 bpm 2014-02-03 Respiratory Rate 18 2014-02-03 Blood pressure systolic 122 mmHg 2014-02-03 Blood pressure diastolic 70 mmHg 2014-02-03 MEDICATIONS Unknown Medications RESULTS No Results PROCEDURES No Known procedures INSTRUCTIONS MEDICATIONS ADMINISTERED No Known Medications MEDICAL (GENERAL) HISTORY Type Description Date Medical History hypertension Medical History asthma Medical History Arthritis Medical History Hypoglycemia Medical History Heart Cath 11/05/2013 Medical History herniated disc--Seen by Dr. Troy Michelle pain specialist in [place], [place] Medical History Chronic low back pain [...]
--- OUTSIDE RECORDS SUMMARY | 2020-06-19 02:04 | XMS REPORT ---
Author Author ARMANDO Mahsa ASHVIN Organization [facility] Address [address] [place] [address] Care Team Providers [employer] Customer Experience Advisor Name Role Phone ARMANDONYASIA DIAZY Unavailable PROBLEMS Type Condition ICD9-CM Code YUD02-GK Code Onset Dates Condition S tatus SNOMED Code Problem Chronic pain syndrome G89.4 Active 204639407 Problem Other constipation K59.09 Active 1 [id number] Problem Anxiety F41.9 Active 25571473 Problem Primary insomnia F51.01 Active 193 924003 Problem Atherosclerosis of [place] co ronary artery of [place] heart without angina pectoris I25.10 Active 3190833124776 Problem Essential hypertension I10 Active 24217211 Problem Hyperlipidemia, unspecified hyperlipidemia E78.5 Active 57723817 Problem Major depressive disorder, recurrent episode, un specified severity F33.9 Active 16564092 Problem Allergic rhinitis J30.9 Active 61 200676 Problem Fibromyalgia M79.7 Active 7462908 7 Problem GERD (gastroesophageal reflux disease) K21.9 Active 472016347 Problem Degenerative disc disease, thoracic M51.34 Active 86838257 Problem Bilateral low back pain, with sciatica presence unspecifie d M54.5 Active 767370004 Problem Moderate episode of recurrent major depressive disorder F33.1 Active 160021345 Problem B12 deficiency E53.8 Active 16748 4004 Problem Chronic obstructive pulmonary disease, unspecified COPD ty pe J44.9 Active 15931061 Problem CKD (chronic kidney disease) stage 3, GFR 30-59 ml/min N18.3 Active 415508736 Problem Cannabis abuse F12.10 Active 45954 009 Problem Degenerative disc disease, cervical M50.30 Active 22091636 ALLERGIES No Information ENCOUNTERS Encounter Location Date Diagnosis [facility] [address] [id number] [place] [address] Nov, [facility] [address] [id number] [place] [address] Oct, Moderate episode of recurrent major depr essive disorder F33.1 ; Chronic obstructive pulmonary disease, unspecified COPD type J44.9 ; CKD (chronic kidney disease) stage 3, GFR 30-59 ml/min N18.3 ; Essential hypertension I10 and Possible exposure to STD Z20.2 [place] [address] [address] Oct, Essential hypertension I10 [place] [address] [address] Oct, [place] [address] [address] Sep, Essential hypertension I10 [place] [address] [address] Sep, [place] [address] [address] Sep, [place] [address] [address] Sep, [place] [address] [address] Aug, Essential hypertension I10 [place] [address] [address] Aug, Essential hypertension I10 [place] [address] [address] Jul, Allergic rhinitis J30.9 ; CKD (chronic k idney disease) stage 3, GFR 30-59 ml/min N18.3 ; Essential hypertension I10 and Moderate episode of recurrent major depressive disorder F33.1 [place] [address] [address] 11 Jul, 2019 Elevated platelet count R79.89 ; B12 def iciency E53.8 ; Hyperlipidemia, unspecified hyperlipidemia E78.5 and CKD (chronic kidney disease) stage 3, GFR 30-59 ml/min N18.3 [place] [address] [address] Apr, B12 deficiency E53.8 [place] [address] [address] Jan, Periumbilical hernia K42.9 ; CKD (chroni c kidney disease) stage 3, GFR 30-59 ml/min N18.3 ; Essential hypertension I10 ; GERD (gastroesophageal reflux disease) K21.9 ; Hyperlipidemia, unspecified hyperlipidemia E78.5 and Major depressive disorder, recurrent episode, unspecified severity F33.9 [place] [address] [place] [address] 12 Dec, 2018 Anxiety F41.9 [place] [address] [address] Nov, Elevated platelet count R79.89 [place] [address] [address] 15 Nov, 2018 [place] [address] [address] Nov, Elevated platelet count R79.89 [place] [address] [address] Nov, Anxiety F41.9 [place] [address] [address] Nov, Bilateral low back pain, with sciatica p resence unspecified M54.5 ; Cervicalgia M54.2 ; Degenerative disc disease, cervical M50.30 and Degenerative disc disease, thoracic M51.[address] [address] Nov, Chronic pain syndrome G89.4 and Bilatera l low back pain, with sciatica presence unspecified M54.[address] [address] Oct, Umbilical hernia without obstruction and without gangrene K42.9 [place] [address] [address] Oct, Chronic pain syndrome G89.4 [place] [address] [address] 13 Oct, 2018 Chronic pain syndrome G89.4 and Anxiety F41.9 [place] [address] [address] Oct, Elevated platelet count R79.89 [place] [address] [address] Oct, CKD (chronic kidney disease) stage 3, GF R 30-59 ml/min N18.3 ; Other chest pain R07.89 ; Acute midline thoracic back pain M54.6 ; Essential hypertension I10 and History of osteoporosis Z87.39 [place] [address] [address] Sep, Chronic pain syndrome G89.4 [place] [address] [address] Sep, [address] [address] Sep, Anxiety F41.9 and Chronic pain syndrome G89.4 [place] [address] [address] 18 Aug, 2018 Chronic pain syndrome G89.4 and Anxiety F41.9 [place] [address] [address] Aug, [place] [address] [address] Aug, Cannabis abuse F12.10 and Controlled sub stance agreement terminated Z91.14 [place] [address] [address] Jul, Chronic pain syndrome G89.4 ; Bilateral low back pain, with sciatica presence unspecified M54.5 ; Chronic prescription opiate use Z79.899 ; Essential hypertension I10 ; Hyperlipidemia, unspecified hyperlipidemia E78.5 ; CKD (chronic kidney disease) stage 3, GFR 30-59 ml/min N18.3 and Allergic rhinitis J30.9 [place] [address] [address] Jul, Chronic pain syndrome G89.4 and Anxiety F41.9 [place] [address] [address] Jul, Screening for breast cancer Z12.31 and Casandra castillo depressive disorder, recurrent episode, unspecified severity F33.9 [place] [address] [address] Jun, Chronic pain syndrome G89.4 and Anxiety F41.9 [place] [address] [address] May, Chronic pain syndrome G89.4 and Anxiety F41.9 [place] [address] [address] Apr, Anxiety F41.[address] [address] Apr, Chronic prescription opiate use Z79.899 ; Chronic pain syndrome G89.4 ; Essential hypertension I10 ; Allergic rhinitis J30.9 and CKD (chronic kidney disease) stage 3, GFR 30-59 ml/min N18.3 [place] [address] [address] Apr, [place] [address] [address] March, Anxiety F41.9 and Chronic pain syndrome G89.[address] [address] March, CKD (chronic kidney disease) stage 3, GF R 30-59 ml/min N18.3 ; B12 deficiency E53.8 and Hyperlipidemia, unspecified hyperlipidemia E78.5 [place] [address] [address] March, Anxiety F41.9 and Chronic pain syndrome G89.[address] [address] Feb, Anxiety F41.9 and Chronic pain syndrome G89.4 [place] [address] [address] Jan, B12 deficiency E53.8 [place] [address] [address] Jan, [place] [address] [address] Jan, Anxiety F41.9 ; Chronic pain syndrome G8 9.4 and Essential hypertension I10 [place] [address] [address] Jan, CKD (chronic kidney disease) stage 3, [...] Subacromial bursitis of right shoulder joint M75.51 [place] [address] [address] Dec, Essential hypertension I10 [place] [address] [address] Dec, Chronic pain syndrome G89.4 [place] [address] [address] Dec, Chronic pain syndrome G89.4 [place] [address] [address] Nov, [place] [address] [address] Nov, Chronic pain syndrome G89.4 and Anxiety F41.9 [place] [address] [address] Oct, Chronic pain syndrome G89.4 ; Other cons tipation K59.09 and Chronic prescription opiate use Z79.899 [place] [address] [address] Oct, Chronic pain syndrome G89.4 and Anxiety F41.9 [place] [address] [address] Sep, Essential hypertension I10 [place] [address] [address] Sep, Chronic pain syndrome G89.4 and Anxiety F41.9 [place] [address] [address] Aug, Chronic pain syndrome G89.4 and Anxiety F41.9 [place] [address] [address] Jul, Essential hypertension I10 [place] [address] [address] Jul, Chronic obstructive pulmonary disease, u nspecified COPD type J44.9 [place] [address] [address] Jul, Chronic pain syndrome G89.4 and Anxiety F41.9 [place] [address] [address] 13 Jul, 2017 Chronic pain syndrome G89.4 ; Essential hypertension I10 ; Fibromyalgia M79.7 ; CKD (chronic kidney disease) stage 3, GFR 30-59 ml/min N18.3 ; Subacromial bursitis, right M75.51 and Goals of care, co unseling/discussion Z71.89 [place] [address] [address] Jun, Chronic pain syndrome G89.4 and Anxiety F41.9 [place] [address] [address] May, Chronic pain syndrome G89.4 and Anxiety F41.9 [place] [address] [address] Apr, Chronic pain syndrome G89.4 and Anxiety F41.[address] [address] Apr, Drug induced constipation K59.03 ; Chron ic pain syndrome G89.4 and CKD (chronic kidney disease) stage 3, GFR 30-59 ml/min N18.3 [place] [address] [address] Apr, Chronic pain syndrome G89.4 and Anxiety F41.[address] [address] March, Chronic pain syndrome G89.4 and Anxiety F41.[address] [address] March, Decreased GFR R94.[address] [address] Feb, [address] [address] Feb, Chronic pain syndrome G89.4 and Anxiety F41.9 [place] [address] [address] Jan, Decreased GFR R94.[address] [address] Jan, Decreased GFR R94.[address] [address] Jan, Allergic rhinitis J30.9 ; Essential hype rtension I10 ; Major depressive disorder, recurrent episode, unspecified severity F33.9 and Primary insomnia F51.[address] [address] 10 Jan, 2017 Acute right-sided thoracic back pain M54 .6 ; Subacromial bursitis of right shoulder joint M75.51 ; Chronic pain syndrome G89.4 and Anxiety F41.9 [place] [address] [address] Jan, Decreased GFR R94.4 [place] [address] [address] Dec, Decreased GFR R94.4 [place] [address] [address] Dec, Decreased GFR R94.4 [place] [address] [address] Dec, Decreased GFR R94.4 [place] [address] [address] Dec, Decreased GFR R94.4 [place] [address] [address] Dec, Anxiety F41.9 and Bilateral low back candis n, with sciatica presence unspecified M54.5 [place] [address] [address] Dec, Thrombocytosis D47.3 ; Hyperlipidemia, u nspecified hyperlipidemia E78.5 ; Need for hepatitis C screening test Z11.59 and B12 deficiency E53.8 [place] [address] [address] Nov, Need for hepatitis C screening test Z11. 59 [place] [address] [address] Nov, Anxiety F41.9 and Bilateral low back candis n, with sciatica presence unspecified M54.5 [place] [address] [address] Oct, Bilateral low back pain, with sciatica p resence unspecified M54.5 ; Chronic prescription opiate use Z79.899 ; Anxiety F41.9 ; Essential hypertension I10 ; Hyperlipidemia, unspecified hyperlipidemia E78.5 ; Health care maintenance Z00.00 and Thrombocytosis D47.3 [place] [address] [address] Sep, [facility] [address] [address] Sep, [facility] [address] [address] Aug, [facility] [address] [address] Jul, B12 deficiency E53.8 [facility] [address] [address] Jul, [place] [address] [address] Jul, Essential hypertension I10 ; Chronic candis n syndrome G89.4 ; Anxiety F41.9 ; Screening for breast cancer Z12.39 ; Atherosclerosis of [place] coronary artery of [place] heart without angina pectoris I25.10 ; Major depressive disorder, recurrent episode, unspecified severity F33.9 ; Primary insomnia F51.01 and Allergic rhinitis J30.9 [facility] [address] [address] Jun, [facility] [address] [facility] [id number] [place] [address] Jun, Leg wound, right, initial en counter S81.801A and Encounter for immunization Z23 [facility] [address] [address] Jun, Open wound of right ear, unspecified ope n wound type, initial encounter S01.301A [facility] [address] [address] May, B12 deficiency E53.8 [place] [address] [address] May, [facility] [address] [address] May, [facility] [address] [address] May, Chronic pain syndrome G89.4 ; Chronic pr escription opiate use Z79.899 ; Allergic rhinitis J30.9 ; Essential hypertension I10 and Non-healing skin lesion L98.9 [facility] [address] [address] Apr, [facility] [address] [address] March, [facility] [address] [address] Feb, [facility] [address] [address] Feb, [place] [address] [address] Feb, Chronic pain syndrome G89.4 ; Anxiety F4 1.9 ; B12 deficiency E53.8 ; Allergic rhinitis J30.9 ; Fibromyalgia M79.7 ; Actinic keratosis L57.0 ; Skin rash R21 ; Open wound of right ear, unspecified open wound type, initial encounter S01.301A ; Subacromial bursitis, right M75.51 ; GERD (gastroesophageal reflux disease) K21.9 and Chronic obstructive pulmonary disease, unspecified COPD type J44.9 [place] [address] [address] Jan, [facility] [address] [address] Jan, Essential hypertension I10 [facility] [address] [address] Jan, [facility] [address] [address] Jan, [facility] [address] [address] Jan, [facility] [address] [address] Dec, [place] [address] [address] 16 Dec, 2015 Essential hypertension I10 [place] [address] [address] Dec, [place] [address] [address] Dec, B12 deficiency E53.8 and Essential hyper tension I10 [place] [address] [address] Dec, [place] [address] [address] Nov, Right shoulder pain M25.511 [place] [address] [address] Nov, Right shoulder pain M25.511 [place] [address] [address] Nov, Essential hypertension I10 and B12 defic iency E53.8 [place] [address] [address] Nov, Major depressive disorder, recurrent epi sode, unspecified severity F33.9 ; Anxiety F41.9 ; Chronic pain syndrome G89.4 ; Essential hypertension I10 ; Hyperlipidemia, unspecified hyperlipidemia E78.5 ; Chronic prescription opiate use Z79.899 ; Allergic rhinitis J30.9 ; B12 deficiency E53.8 and Right shoulder pain M25.511 [place] [address] [address] Oct, [place] [address] [address] Oct, [place] [address] [address] Sep, [place] [address] [address] Sep, [place] [address] [address] Aug, [facility] [address] [place] [id number] [place] [address] Aug, [facility] [address] [address] Aug, [facility] [address] [address] Aug, Other constipation K59.09 ; Hyperlipidem ia, unspecified hyperlipidemia E78.5 ; Essential hypertension I10 ; Primary insomnia F51.01 ; Anxiety F41.9 ; Chronic pain syndrome G89.4 ; Right shoulder pain M25.511 and Acute cystitis without hematuria N30.00 [facility] [address] [address] Jul, [facility] [address] [address] Jul, [facility] [address] [address] Jun, [facility] [address] [address] Jun, [facility] [address] [address] Jun, [facility] [address] [address] May, [facility] [address] [address] May, Other chronic pain 338.29 ; Hypertension 401.9 and Constipation due to opioid therapy 564.09 [facility] [address] [address] May, [facility] [address] [address] May, [facility] [address] [address] Apr, [facility] [address] [address] Apr, Unspecified essential hypertension 401.9 [facility] [address] [facility] [address] [id number] [place] [address] 16 Apr, 2015 [facility] [address] [facility] [id number] [place] [address] Apr, [facility] [id number] [place] [address] Apr, [facility] [address] [facility] [address] [id number] [place] [address] Apr, [facility] [address] [facility] [address] [id number] [place] [address] Apr, [facility] [address] [id number] [place] [address] Apr, [facility] [address] [id number] [place] [address] March, Unspecified essential hypertension 401.9 [facility] [address] [facility] [id number] [place] [address] March, [facility] [address] [id number] [place] [address] March, [facility] [address] [id number] [place] [address] 14 Feb, 2015 [facility] [address] [id number] [place] [address] Feb, [facility] [address] [facility] [id number] [place] [address] 23 Jan, 2015 [facility] [address] [facility] [address] [id number] [place] [address] 23 Jan, 2015 [facility] [address] [facility] [id number] [place] [address] 17 Jan, 2015 [facility] [address] [facility] [id number] [place] [address] 17 Jan, 2015 [facility] [address] [facility] [id number] [place] [address] Jan, [facility] [address] [facility] [id number] [place] [address] Jan, [facility] [address] [facility] [id number] [place] [address] Jan, [facility] [address] [id number] [place] [address] Dec, [facility] [address] [id number] [place] [address] Dec, [facility] [address] [facility] [id number] [place] [address] Dec, [facility] [address] [id number] [place] [address] Nov, [facility] [address] [id number] [place] [address] Nov, [facility] [address] [id number] [place] [address] Oct, [facility] [address] [id number] [place] [address] Oct, [facility] [address] [id number] [place] [address] Oct, [facility] [address] [id number] [place] [address] Oct, [facility] [address] [id number] [place] [address] Oct, [facility] [address] [id number] [place] [address] Oct, [facility] [address] [id number] [place] [address] Oct, [facility] [address] [id number] [place] [address] Oct, [facility] [address] [id number] [place] [address] Sep, [facility] [address] [id number] [place] [address] Sep, [facility] [address] [facility] [id number] [place] [address] Sep, [facility] [address] [id number] [place] [address] Sep, [facility] [address] [id number] [place] [address] Sep, [facility] [address] [id number] [place] [address] Sep, [facility] [address] [id number] [place] [address] Aug, [facility] [address] [id number] [place] [address] Aug, [facility] [address] [id number] [place] [address] Aug, [facility] [address] [id number] [place] [address] Aug, [facility] [address] [id number] [place] [address] Aug, [facility] [address] [id number] [place] [address] Aug, [facility] [address] [id number] [place] [address] Aug, [facility] [address] [id number] [place] [address] Aug, [facility] [address] [id number] [place] [address] Aug, [facility] [address] [id number] [place] [address] Aug, [facility] [address] [id number] [place] [address] Jul, [facility] [address] [id number] [place] [address] Jul, [facility] [address] [id number] [place] [address] Jul, [facility] [address] [facility] [id number] [place] [address] Jul, [facility] [address] [facility] [id number] [place] [address] Jul, [facility] [id number] [place] [address] Jul, [facility] [address] [facility] [id number] [place] [address] Jun, [facility] [address] [facility] [id number] [place] [address] Jun, [facility] [address] [facility] [address] [id number] [place] [address] Jun, [facility] [id number] [place] [address] Jun, [facility] [address] [id number] [place] [address] Jun, [facility] [address] [id number] [place] [address] Jun, [facility] [address] [facility] [address] [id number] [place] [address] May, [facility] [id number] [place] [address] May, [facility] [id number] [place] [address] May, [facility] [address] [facility] [id number] [place] [address] May, [facility] [address] [id number] [place] [address] May, [facility] [address] [facility] [address] [id number] [place] [address] Apr, [facility] [address] [facility] [address] [id number] [place] [address] Apr, [facility] [address] [id number] [place] [address] Apr, [facility] [address] [facility] [id number] [place] [address] Apr, [facility] [address] [facility] [id number] [place] [place] [address] March, [facility] [address] [id number] [place] [address] March, [facility] [address] [id number] [place] [address] March, [facility] [address] [id number] [place] [address] March, [facility] [address] [id number] [place] [address] March, [facility] [address] [id number] [place] [address] March, [facility] [address] [facility] [id number] [place] [address] Feb, [facility] [address] [id number] [place] [address] Feb, [facility] [address] [id number] [place] [address] Feb, [facility] [address] [id number] [place] [address] Feb, [facility] [address] [facility] [id number] [place] [address] Feb, [facility] [address] [id number] [place] [address] Feb, [facility] [address] [id number] [place] [address] Feb, [facility] [address] [id number] [place] [address] Feb, [facility] [address] [id number] [place] [address] Jan, [facility] [address] [facility] [id number] [place] [address] Jan, [facility] [address] [id number] [place] [address] Jan, [facility] [address] [id number] [place] [address] Jan, [facility] [address] [id number] [place] [address] Jan, [facility] [address] [facility] [id number] [place] [address] Jan, [facility] [address] [id number] [place] [address] Dec, [facility] [address] [id number] [place] [address] Dec, [facility] [address] [id number] [place] [address] Nov, [facility] [address] [id number] [place] [address] Nov, [facility] [address] [id number] [place] [address] Nov, [facility] [address] [id number] [place] [address] Nov, [facility] [address] [id number] [place] [address] Nov, [facility] [address] [id number] [place] [address] Nov, [facility] [address] [id number] [place] [address] Nov, [facility] [address] [id number] [place] [address] Nov, [facility] [address] [id number] [place] [address] Nov, [facility] [address] [id number] [place] [address] Nov, [facility] [address] [id number] [place] [address] Nov, [facility] [address] [id number] [place] [address] Nov, [facility] [address] [id number] [place] [address] Nov, [facility] [address] [id number] [place] [address] Nov, [facility] [address] [id number] [place] [address] Nov, [facility] [address] [id number] [place] [address] Oct, [facility] [address] [id number] [place] [address] Oct, [facility] [address] [id number] [place] [address] Oct, [facility] [address] [id number] [place] [address] Oct, [facility] [address] [id number] [place] [address] Oct, [facility] [address] [id number] [place] [address] Oct, [facility] [address] [id number] [place] [address] Oct, [facility] [address] [id number] [place] [address] Oct, [facility] [address] [id number] [place] [address] Oct, [facility] [address] [id number] [place] [address] Aug, [facility] [address] [id number] [place] [address] Aug, IMMUNIZATIONS No Known Immunizations SOCIAL HISTORY Never Assessed REASON FOR VISIT PLAN OF CARE VITAL SIGNS Height 69 in 2014-01-06 Weight 221.38 lbs 2014-01-06 Temperature 97 degrees Fahrenheit 2014-01-06 Heart Rate 74 bpm 2014-01-06 Respiratory Rate 20 2014-01-06 Blood pressure systolic 138 mmHg 2014-01-06 Blood pressure diastolic 90 mmHg 2014-01-06 MEDICATIONS Unknown Medications RESULTS No Results PROCEDURES No Known procedures INSTRUCTIONS MEDICATIONS ADMINISTERED No Known Medications MEDICAL (GENERAL) HISTORY Type Description Date Medical History hypertension Medical History asthma Medical History Arthritis Medical History Hypoglycemia Medical History Heart Cath 11/05/2013 Medical History herniated disc--Seen by Dr. Troy Michelle pain specialist in [place], [place] Medical History Chronic low back pain [...]
--- OUTSIDE RECORDS SUMMARY | 2020-06-19 02:05 | XMS REPORT ---
Author Author ARMANDO Mahsa ASHVIN Organization [facility] Address [address] [place] [address] Care Team Providers Care Quality Compliance Coordinator Name Role Phone ARMANDONYASIA DIAZY Unavailable PROBLEMS Type Condition ICD9-CM Code MIF05-DM Code Onset Dates Condition S tatus SNOMED Code Problem Chronic pain syndrome G89.4 Active 283676835 Problem Other constipation K59.09 Active 1 08354328373304 Problem Anxiety F41.9 Active 47889561 Problem Primary insomnia F51.01 Active 193 657924 Problem Atherosclerosis of tejon co ronary artery of tejon heart without angina pectoris I25.10 Active 5444383250670 Problem Essential hypertension I10 Active 05108965 Problem Hyperlipidemia, unspecified hyperlipidemia E78.5 Active 31283303 Problem Major depressive disorder, recurrent episode, un specified severity F33.9 Active 82870579 Problem Allergic rhinitis J30.9 Active 61 230872 Problem Fibromyalgia M79.7 Active 8549380 7 Problem GERD (gastroesophageal reflux disease) K21.9 Active 701595981 Problem Degenerative disc disease, thoracic M51.34 Active 98943838 Problem Bilateral low back pain, with sciatica presence unspecifie d M54.5 Active 122480007 Problem Moderate episode of recurrent major depressive disorder F33.1 Active 229701531 Problem B12 deficiency E53.8 Active 06565 4004 Problem Chronic obstructive pulmonary disease, unspecified COPD ty pe J44.9 Active 68213746 Problem CKD (chronic kidney disease) stage 3, GFR 30-59 ml/min N18.3 Active 767758413 Problem Cannabis abuse F12.10 Active 43817 009 Problem Degenerative disc disease, cervical M50.30 Active 97331770 ALLERGIES No Information ENCOUNTERS Encounter Location Date Diagnosis [facility] [address] [id number] [place] [address] Nov, [facility] [address] [id number] [place] [address] Oct, Moderate episode of recurrent major depr essive disorder F33.1 ; Chronic obstructive pulmonary disease, unspecified COPD type J44.9 ; CKD (chronic kidney disease) stage 3, GFR 30-59 ml/min N18.3 ; Essential hypertension I10 and Possible exposure to STD Z20.2 [place] [address] [address] Oct, Essential hypertension I10 [place] [address] [address] Oct, [place] [address] [address] Sep, Essential hypertension I10 [place] [address] [address] Sep, [place] [address] [address] Sep, [place] [address] [address] Sep, [place] [address] [address] Aug, Essential hypertension I10 [place] [address] [address] Aug, Essential hypertension I10 [place] [address] [address] Jul, Allergic rhinitis J30.9 ; CKD (chronic k idney disease) stage 3, GFR 30-59 ml/min N18.3 ; Essential hypertension I10 and Moderate episode of recurrent major depressive disorder F33.1 [place] [address] [address] 11 Jul, 2019 Elevated platelet count R79.89 ; B12 def iciency E53.8 ; Hyperlipidemia, unspecified hyperlipidemia E78.5 and CKD (chronic kidney disease) stage 3, GFR 30-59 ml/min N18.3 [place] [address] [address] Apr, B12 deficiency E53.8 [place] [address] [address] Jan, Periumbilical hernia K42.9 ; CKD (chroni c kidney disease) stage 3, GFR 30-59 ml/min N18.3 ; Essential hypertension I10 ; GERD (gastroesophageal reflux disease) K21.9 ; Hyperlipidemia, unspecified hyperlipidemia E78.5 and Major depressive disorder, recurrent episode, unspecified severity F33.9 [place] [address] [place] [address] 12 Dec, 2018 Anxiety F41.9 [place] [address] [address] Nov, Elevated platelet count R79.89 [place] [address] [address] 15 Nov, 2018 [place] [address] [address] Nov, Elevated platelet count R79.89 [place] [address] [address] Nov, Anxiety F41.9 [place] [address] [address] Nov, Bilateral low back pain, with sciatica p resence unspecified M54.5 ; Cervicalgia M54.2 ; Degenerative disc disease, cervical M50.30 and Degenerative disc disease, thoracic M51.[address] [address] Nov, Chronic pain syndrome G89.4 and Bilatera l low back pain, with sciatica presence unspecified M54.[address] [address] Oct, Umbilical hernia without obstruction and without gangrene K42.9 [place] [address] [address] Oct, Chronic pain syndrome G89.4 [place] [address] [address] 13 Oct, 2018 Chronic pain syndrome G89.4 and Anxiety F41.9 [place] [address] [address] Oct, Elevated platelet count R79.89 [place] [address] [address] Oct, CKD (chronic kidney disease) stage 3, GF R 30-59 ml/min N18.3 ; Other chest pain R07.89 ; Acute midline thoracic back pain M54.6 ; Essential hypertension I10 and History of osteoporosis Z87.39 [place] [address] [address] Sep, Chronic pain syndrome G89.4 [place] [address] [address] Sep, [address] [address] Sep, Anxiety F41.9 and Chronic pain syndrome G89.4 [place] [address] [address] 18 Aug, 2018 Chronic pain syndrome G89.4 and Anxiety F41.9 [place] [address] [address] Aug, [place] [address] [address] Aug, Cannabis abuse F12.10 and Controlled sub stance agreement terminated Z91.14 [place] [address] [address] Jul, Chronic pain syndrome G89.4 ; Bilateral low back pain, with sciatica presence unspecified M54.5 ; Chronic prescription opiate use Z79.899 ; Essential hypertension I10 ; Hyperlipidemia, unspecified hyperlipidemia E78.5 ; CKD (chronic kidney disease) stage 3, GFR 30-59 ml/min N18.3 and Allergic rhinitis J30.9 [place] [address] [address] Jul, Chronic pain syndrome G89.4 and Anxiety F41.9 [place] [address] [address] Jul, Screening for breast cancer Z12.31 and Casandra castillo depressive disorder, recurrent episode, unspecified severity F33.9 [place] [address] [address] Jun, Chronic pain syndrome G89.4 and Anxiety F41.9 [place] [address] [address] May, Chronic pain syndrome G89.4 and Anxiety F41.9 [place] [address] [address] Apr, Anxiety F41.[address] [address] Apr, Chronic prescription opiate use Z79.899 ; Chronic pain syndrome G89.4 ; Essential hypertension I10 ; Allergic rhinitis J30.9 and CKD (chronic kidney disease) stage 3, GFR 30-59 ml/min N18.3 [place] [address] [address] Apr, [place] [address] [address] March, Anxiety F41.9 and Chronic pain syndrome G89.[address] [address] March, CKD (chronic kidney disease) stage 3, GF R 30-59 ml/min N18.3 ; B12 deficiency E53.8 and Hyperlipidemia, unspecified hyperlipidemia E78.5 [place] [address] [address] March, Anxiety F41.9 and Chronic pain syndrome G89.[address] [address] Feb, Anxiety F41.9 and Chronic pain syndrome G89.4 [place] [address] [address] Jan, B12 deficiency E53.8 [place] [address] [address] Jan, [place] [address] [address] Jan, Anxiety F41.9 ; Chronic pain syndrome G8 9.4 and Essential hypertension I10 [place] [address] [address] Jan, CKD (chronic kidney disease) stage 3, [...] Subacromial bursitis of right shoulder joint M75.51 [place] [address] [address] Dec, Essential hypertension I10 [place] [address] [address] Dec, Chronic pain syndrome G89.4 [place] [address] [address] Dec, Chronic pain syndrome G89.4 [place] [address] [address] Nov, [place] [address] [address] Nov, Chronic pain syndrome G89.4 and Anxiety F41.9 [place] [address] [address] Oct, Chronic pain syndrome G89.4 ; Other cons tipation K59.09 and Chronic prescription opiate use Z79.899 [place] [address] [address] Oct, Chronic pain syndrome G89.4 and Anxiety F41.9 [place] [address] [address] Sep, Essential hypertension I10 [place] [address] [address] Sep, Chronic pain syndrome G89.4 and Anxiety F41.9 [place] [address] [address] Aug, Chronic pain syndrome G89.4 and Anxiety F41.9 [place] [address] [address] Jul, Essential hypertension I10 [place] [address] [address] Jul, Chronic obstructive pulmonary disease, u nspecified COPD type J44.9 [place] [address] [address] Jul, Chronic pain syndrome G89.4 and Anxiety F41.9 [place] [address] [address] 13 Jul, 2017 Chronic pain syndrome G89.4 ; Essential hypertension I10 ; Fibromyalgia M79.7 ; CKD (chronic kidney disease) stage 3, GFR 30-59 ml/min N18.3 ; Subacromial bursitis, right M75.51 and Goals of care, co unseling/discussion Z71.89 [place] [address] [address] Jun, Chronic pain syndrome G89.4 and Anxiety F41.9 [place] [address] [address] May, Chronic pain syndrome G89.4 and Anxiety F41.9 [place] [address] [address] Apr, Chronic pain syndrome G89.4 and Anxiety F41.[address] [address] Apr, Drug induced constipation K59.03 ; Chron ic pain syndrome G89.4 and CKD (chronic kidney disease) stage 3, GFR 30-59 ml/min N18.3 [place] [address] [address] Apr, Chronic pain syndrome G89.4 and Anxiety F41.[address] [address] March, Chronic pain syndrome G89.4 and Anxiety F41.[address] [address] March, Decreased GFR R94.[address] [address] Feb, [address] [address] Feb, Chronic pain syndrome G89.4 and Anxiety F41.9 [place] [address] [address] Jan, Decreased GFR R94.[address] [address] Jan, Decreased GFR R94.[address] [address] Jan, Allergic rhinitis J30.9 ; Essential hype rtension I10 ; Major depressive disorder, recurrent episode, unspecified severity F33.9 and Primary insomnia F51.[address] [address] 10 Jan, 2017 Acute right-sided thoracic back pain M54 .6 ; Subacromial bursitis of right shoulder joint M75.51 ; Chronic pain syndrome G89.4 and Anxiety F41.9 [place] [address] [address] Jan, Decreased GFR R94.4 [place] [address] [address] Dec, Decreased GFR R94.4 [place] [address] [address] Dec, Decreased GFR R94.4 [place] [address] [address] Dec, Decreased GFR R94.4 [place] [address] [address] Dec, Decreased GFR R94.4 [place] [address] [address] Dec, Anxiety F41.9 and Bilateral low back candis n, with sciatica presence unspecified M54.5 [place] [address] [address] Dec, Thrombocytosis D47.3 ; Hyperlipidemia, u nspecified hyperlipidemia E78.5 ; Need for hepatitis C screening test Z11.59 and B12 deficiency E53.8 [place] [address] [address] Nov, Need for hepatitis C screening test Z11. 59 [place] [address] [address] Nov, Anxiety F41.9 and Bilateral low back candis n, with sciatica presence unspecified M54.5 [place] [address] [address] Oct, Bilateral low back pain, with sciatica p resence unspecified M54.5 ; Chronic prescription opiate use Z79.899 ; Anxiety F41.9 ; Essential hypertension I10 ; Hyperlipidemia, unspecified hyperlipidemia E78.5 ; Health care maintenance Z00.00 and Thrombocytosis D47.3 [place] [address] [address] Sep, [facility] [address] [address] Sep, [facility] [address] [address] Aug, [facility] [address] [address] Jul, B12 deficiency E53.8 [facility] [address] [address] Jul, [place] [address] [address] Jul, Essential hypertension I10 ; Chronic candis n syndrome G89.4 ; Anxiety F41.9 ; Screening for breast cancer Z12.39 ; Atherosclerosis of tejon coronary artery of tejon heart without angina pectoris I25.10 ; Major depressive disorder, recurrent episode, unspecified severity F33.9 ; Primary insomnia F51.01 and Allergic rhinitis J30.9 [facility] [address] [address] Jun, [facility] [address] [facility] [id number] [place] [address] Jun, Leg wound, right, initial en counter S81.801A and Encounter for immunization Z23 [facility] [address] [address] Jun, Open wound of right ear, unspecified ope n wound type, initial encounter S01.301A [facility] [address] [address] May, B12 deficiency E53.8 [place] [address] [address] May, [facility] [address] [address] May, [facility] [address] [address] May, Chronic pain syndrome G89.4 ; Chronic pr escription opiate use Z79.899 ; Allergic rhinitis J30.9 ; Essential hypertension I10 and Non-healing skin lesion L98.9 [facility] [address] [address] Apr, [facility] [address] [address] March, [facility] [address] [address] Feb, [facility] [address] [address] Feb, [place] [address] [address] Feb, Chronic pain syndrome G89.4 ; Anxiety F4 1.9 ; B12 deficiency E53.8 ; Allergic rhinitis J30.9 ; Fibromyalgia M79.7 ; Actinic keratosis L57.0 ; Skin rash R21 ; Open wound of right ear, unspecified open wound type, initial encounter S01.301A ; Subacromial bursitis, right M75.51 ; GERD (gastroesophageal reflux disease) K21.9 and Chronic obstructive pulmonary disease, unspecified COPD type J44.9 [place] [address] [address] Jan, [facility] [address] [address] Jan, Essential hypertension I10 [facility] [address] [address] Jan, [facility] [address] [address] Jan, [facility] [address] [address] Jan, [facility] [address] [address] Dec, [place] [address] [address] 16 Dec, 2015 Essential hypertension I10 [place] [address] [address] Dec, [place] [address] [address] Dec, B12 deficiency E53.8 and Essential hyper tension I10 [place] [address] [address] Dec, [place] [address] [address] Nov, Right shoulder pain M25.511 [place] [address] [address] Nov, Right shoulder pain M25.511 [place] [address] [address] Nov, Essential hypertension I10 and B12 defic iency E53.8 [place] [address] [address] Nov, Major depressive disorder, recurrent epi sode, unspecified severity F33.9 ; Anxiety F41.9 ; Chronic pain syndrome G89.4 ; Essential hypertension I10 ; Hyperlipidemia, unspecified hyperlipidemia E78.5 ; Chronic prescription opiate use Z79.899 ; Allergic rhinitis J30.9 ; B12 deficiency E53.8 and Right shoulder pain M25.511 [place] [address] [address] Oct, [place] [address] [address] Oct, [place] [address] [address] Sep, [place] [address] [address] Sep, [place] [address] [address] Aug, [facility] [address] [place] [id number] [place] [address] Aug, [facility] [address] [address] Aug, [facility] [address] [address] Aug, Other constipation K59.09 ; Hyperlipidem ia, unspecified hyperlipidemia E78.5 ; Essential hypertension I10 ; Primary insomnia F51.01 ; Anxiety F41.9 ; Chronic pain syndrome G89.4 ; Right shoulder pain M25.511 and Acute cystitis without hematuria N30.00 [facility] [address] [address] Jul, [facility] [address] [address] Jul, [facility] [address] [address] Jun, [facility] [address] [address] Jun, [facility] [address] [address] Jun, [facility] [address] [address] May, [facility] [address] [address] May, Other chronic pain 338.29 ; Hypertension 401.9 and Constipation due to opioid therapy 564.09 [facility] [address] [address] May, [facility] [address] [address] May, [facility] [address] [address] Apr, [facility] [address] [address] Apr, Unspecified essential hypertension 401.9 [facility] [address] [id number] [place] [address] 16 Apr, 2015 [facility] [address] [id number] [place] [address] Apr, [facility] [address] [id number] [place] [address] Apr, [facility] [address] [id number] [place] [address] Apr, [facility] [address] [id number] [place] [address] Apr, [facility] [address] [id number] [place] [address] Apr, [facility] [address] [id number] [place] [address] March, Unspecified essential hypertension 401.9 [facility] [address] [id number] [place] [address] March, [facility] [address] [id number] [place] [address] March, [facility] [address] [id number] [place] [address] 14 Feb, 2015 [facility] [address] [id number] [place] [address] Feb, [facility] [address] [id number] [place] [address] 23 Jan, 2015 [facility] [address] [id number] [place] [address] 23 Jan, 2015 [facility] [address] [id number] [place] [address] 17 Jan, 2015 [facility] [address] [id number] [place] [address] 17 Jan, 2015 [facility] [address] [id number] [place] [address] Jan, [facility] [address] [facility] [id number] [place] [address] Jan, [facility] [address] [facility] [id number] [place] [address] Jan, [facility] [address] [id number] [place] [address] Dec, [facility] [address] [id number] [place] [address] Dec, [facility] [address] [facility] [id number] [place] [address] Dec, [facility] [address] [id number] [place] [address] Nov, [facility] [address] [id number] [place] [address] Nov, [facility] [address] [id number] [place] [address] Oct, [facility] [address] [id number] [place] [address] Oct, [facility] [address] [id number] [place] [address] Oct, [facility] [address] [id number] [place] [address] Oct, [facility] [address] [id number] [place] [address] Oct, [facility] [address] [id number] [place] [address] Oct, [facility] [address] [id number] [place] [address] Oct, [facility] [address] [id number] [place] [address] Oct, [facility] [address] [id number] [place] [address] Sep, [facility] [address] [id number] [place] [address] Sep, [facility] [address] [facility] [id number] [place] [address] Sep, [facility] [address] [id number] [place] [address] Sep, [facility] [address] [id number] [place] [address] Sep, [facility] [address] [id number] [place] [address] Sep, [facility] [address] [id number] [place] [address] Aug, [facility] [address] [id number] [place] [address] Aug, [facility] [address] [id number] [place] [address] Aug, [facility] [address] [id number] [place] [address] Aug, [facility] [address] [id number] [place] [address] Aug, [facility] [address] [id number] [place] [address] Aug, [facility] [address] [id number] [place] [address] Aug, [facility] [address] [id number] [place] [address] Aug, [facility] [address] [id number] [place] [address] Aug, [facility] [address] [id number] [place] [address] Aug, [facility] [address] [id number] [place] [address] Jul, [facility] [address] [id number] [place] [address] Jul, [facility] [address] [id number] [place] [address] Jul, [facility] [address] [facility] [id number] [place] [address] Jul, [facility] [address] [facility] [id number] [place] [address] Jul, [facility] [address] [id number] [place] [address] Jul, [facility] [address] [facility] [id number] [place] [address] Jun, [facility] [address] [facility] [id number] [place] [address] Jun, [facility] [address] [id number] [place] [address] Jun, [facility] [address] [id number] [place] [address] Jun, [facility] [address] [id number] [place] [address] Jun, [facility] [address] [id number] [place] [address] Jun, [facility] [address] [id number] [place] [address] May, [facility] [address] [id number] [place] [address] May, [facility] [address] [id number] [place] [address] May, [facility] [address] [facility] [id number] [place] [address] May, [facility] [address] [id number] [place] [address] May, [facility] [address] [id number] [place] [address] Apr, [facility] [facility] [address] [id number] [place] [address] Apr, [facility] [address] [id number] [place] [address] Apr, [facility] [address] [facility] [id number] [place] [address] Apr, [facility] [address] [facility] [id number] [place] [address] March, [facility] [address] [id number] [place] [address] March, [facility] [address] [id number] [place] [address] March, [facility] [address] [id number] [place] [address] March, [facility] [address] [id number] [place] [address] March, [facility] [address] [id number] [place] [address] March, [facility] [address] [facility] [id number] [place] [address] Feb, [facility] [address] [id number] [place] [address] Feb, [facility] [address] [id number] [place] [address] Feb, [facility] [address] [id number] [place] [address] Feb, [facility] [address] [facility] [id number] [place] [address] Feb, [facility] [address] [id number] [place] [address] Feb, [facility] [address] [id number] [place] [address] Feb, [facility] [address] [id number] [place] [address] Feb, [facility] [address] [id number] [place] [address] Jan, [facility] [address] [facility] [id number] [place] [address] Jan, [facility] [address] [id number] [place] [address] Jan, [facility] [address] [id number] [place] [address] Jan, [facility] [address] [id number] [place] [address] Jan, [facility] [address] [facility] [id number] [place] [address] Jan, [facility] [address] [id number] [place] [address] Dec, [facility] [address] [id number] [place] [address] Dec, [facility] [address] [id number] [place] [address] Nov, [facility] [address] [id number] [place] [address] Nov, [facility] [address] [id number] [place] [address] Nov, [facility] [address] [id number] [place] [address] Nov, [facility] [address] [id number] [place] [address] Nov, [facility] [address] [id number] [place] [address] Nov, [facility] [address] [id number] [place] [address] Nov, [facility] [address] [id number] [place] [address] Nov, [facility] [address] [id number] [place] [address] Nov, [facility] [address] [id number] [place] [address] Nov, [facility] [address] [id number] [place] [address] Nov, [facility] [address] [id number] [place] [address] Nov, [facility] [address] [id number] [place] [address] Nov, [facility] [address] [id number] [place] [address] Nov, [facility] [address] [id number] [place] [address] Nov, [facility] [address] [id number] [place] [address] Oct, [facility] [address] [id number] [place] [address] Oct, [facility] [address] [id number] [place] [address] Oct, [facility] [address] [id number] [place] [address] Oct, [facility] [address] [id number] [place] [address] Oct, [facility] [address] [id number] [place] [address] Oct, [facility] [address] [id number] [place] [address] Oct, [facility] [address] [id number] [place] [address] Oct, [facility] [address] [id number] [place] [address] Oct, [facility] [address] [id number] [place] [address] Aug, [facility] [address] [id number] [place] [address] Aug, IMMUNIZATIONS No Known Immunizations SOCIAL HISTORY [...] by Dr. Troy Michelle pain specialist in [place], [place] Medical History Chronic low back pain [...]
--- OUTSIDE RECORDS SUMMARY | 2020-06-19 02:05 | XMS REPORT ---
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 Name Role Phone ARMANDONYASIA DIAZY Unavailable PROBLEMS Type Condition ICD9-CM Code [id number]-PP Code Onset Dates Condition S tatus SNOMED Code Problem Chronic pain syndrome G89.4 Active 250127076 Problem Other constipation K59.09 Active 1 [id number] Problem Anxiety F41.9 Active 35845633 Problem Primary insomnia F51.01 Active 193 588305 Problem Atherosclerosis of wales co ronary artery of wales heart without angina pectoris I25.10 Active 0549686034332 Problem Essential hypertension I10 Active 94685580 Problem Hyperlipidemia, unspecified hyperlipidemia E78.5 Active 14130367 Problem Major depressive disorder, recurrent episode, un specified severity F33.9 Active 68650892 Problem Allergic rhinitis J30.9 Active 61 154616 Problem Fibromyalgia M79.7 Active 1667007 7 Problem GERD (gastroesophageal reflux disease) K21.9 Active 126708435 Problem Degenerative disc disease, thoracic M51.34 Active 61992116 Problem Bilateral low back pain, with sciatica presence unspecifie d M54.5 Active 910989970 Problem Moderate episode of recurrent major depressive disorder F33.1 Active 939420737 Problem B12 deficiency E53.8 Active 91671 4004 Problem Chronic obstructive pulmonary disease, unspecified COPD ty pe J44.9 Active 56961192 Problem CKD (chronic kidney disease) stage 3, GFR 30-59 ml/min N18.3 Active 027487001 Problem Cannabis abuse F12.10 Active 25736 009 Problem Degenerative disc disease, cervical M50.30 Active 71048296 ALLERGIES No Information ENCOUNTERS Encounter Location Date Diagnosis [facility] [address] [id number] [place] [address] Nov, [facility] [address] [id number] [place] [address] Oct, Moderate episode of recurrent major depr essive disorder F33.1 ; Chronic obstructive pulmonary disease, unspecified COPD type J44.9 ; CKD (chronic kidney disease) stage 3, GFR 30-59 ml/min N18.3 ; Essential hypertension I10 and Possible exposure to STD Z20.2 [place] [address] [address] Oct, Essential hypertension I10 [place] [address] [address] Oct, [place] [address] [address] Sep, Essential hypertension I10 [place] [address] [address] Sep, [place] [address] [address] Sep, [place] [address] [address] Sep, [place] [address] [address] Aug, Essential hypertension I10 [place] [address] [address] Aug, Essential hypertension I10 [place] [address] [address] Jul, Allergic rhinitis J30.9 ; CKD (chronic k idney disease) stage 3, GFR 30-59 ml/min N18.3 ; Essential hypertension I10 and Moderate episode of recurrent major depressive disorder F33.1 [place] [address] [address] 11 Jul, 2019 Elevated platelet count R79.89 ; B12 def iciency E53.8 ; Hyperlipidemia, unspecified hyperlipidemia E78.5 and CKD (chronic kidney disease) stage 3, GFR 30-59 ml/min N18.3 [place] [address] [address] Apr, B12 deficiency E53.8 [place] [address] [address] Jan, Periumbilical hernia K42.9 ; CKD (chroni c kidney disease) stage 3, GFR 30-59 ml/min N18.3 ; Essential hypertension I10 ; GERD (gastroesophageal reflux disease) K21.9 ; Hyperlipidemia, unspecified hyperlipidemia E78.5 and Major depressive disorder, recurrent episode, unspecified severity F33.9 [place] [address] [place] [address] 12 Dec, 2018 Anxiety F41.9 [place] [address] [address] Nov, Elevated platelet count R79.89 [place] [address] [address] 15 Nov, 2018 [place] [address] [address] Nov, Elevated platelet count R79.89 [place] [address] [address] Nov, Anxiety F41.9 [place] [address] [address] Nov, Bilateral low back pain, with sciatica p resence unspecified M54.5 ; Cervicalgia M54.2 ; Degenerative disc disease, cervical M50.30 and Degenerative disc disease, thoracic M51.[address] [address] Nov, Chronic pain syndrome G89.4 and Bilatera l low back pain, with sciatica presence unspecified M54.[address] [address] Oct, Umbilical hernia without obstruction and without gangrene K42.9 [place] [address] [address] Oct, Chronic pain syndrome G89.4 [place] [address] [address] 13 Oct, 2018 Chronic pain syndrome G89.4 and Anxiety F41.9 [place] [address] [address] Oct, Elevated platelet count R79.89 [place] [address] [address] Oct, CKD (chronic kidney disease) stage 3, GF R 30-59 ml/min N18.3 ; Other chest pain R07.89 ; Acute midline thoracic back pain M54.6 ; Essential hypertension I10 and History of osteoporosis Z87.39 [place] [address] [address] Sep, Chronic pain syndrome G89.4 [place] [address] [address] Sep, [address] [address] Sep, Anxiety F41.9 and Chronic pain syndrome G89.4 [place] [address] [address] 18 Aug, 2018 Chronic pain syndrome G89.4 and Anxiety F41.9 [place] [address] [address] Aug, [place] [address] [address] Aug, Cannabis abuse F12.10 and Controlled sub stance agreement terminated Z91.14 [place] [address] [address] Jul, Chronic pain syndrome G89.4 ; Bilateral low back pain, with sciatica presence unspecified M54.5 ; Chronic prescription opiate use Z79.899 ; Essential hypertension I10 ; Hyperlipidemia, unspecified hyperlipidemia E78.5 ; CKD (chronic kidney disease) stage 3, GFR 30-59 ml/min N18.3 and Allergic rhinitis J30.9 [place] [address] [address] Jul, Chronic pain syndrome G89.4 and Anxiety F41.9 [place] [address] [address] Jul, Screening for breast cancer Z12.31 and Casandra castillo depressive disorder, recurrent episode, unspecified severity F33.9 [place] [address] [address] Jun, Chronic pain syndrome G89.4 and Anxiety F41.9 [place] [address] [address] May, Chronic pain syndrome G89.4 and Anxiety F41.9 [place] [address] [address] Apr, Anxiety F41.[address] [address] Apr, Chronic prescription opiate use Z79.899 ; Chronic pain syndrome G89.4 ; Essential hypertension I10 ; Allergic rhinitis J30.9 and CKD (chronic kidney disease) stage 3, GFR 30-59 ml/min N18.3 [place] [address] [address] Apr, [place] [address] [address] March, Anxiety F41.9 and Chronic pain syndrome G89.[address] [address] March, CKD (chronic kidney disease) stage 3, GF R 30-59 ml/min N18.3 ; B12 deficiency E53.8 and Hyperlipidemia, unspecified hyperlipidemia E78.5 [place] [address] [address] March, Anxiety F41.9 and Chronic pain syndrome G89.[address] [address] Feb, Anxiety F41.9 and Chronic pain syndrome G89.4 [place] [address] [address] Jan, B12 deficiency E53.8 [place] [address] [address] Jan, [place] [address] [address] Jan, Anxiety F41.9 ; Chronic pain syndrome G8 9.4 and Essential hypertension I10 [place] [address] [address] Jan, CKD (chronic kidney disease) stage 3, [...] Subacromial bursitis of right shoulder joint M75.51 [place] [address] [address] Dec, Essential hypertension I10 [place] [address] [address] Dec, Chronic pain syndrome G89.4 [place] [address] [address] Dec, Chronic pain syndrome G89.4 [place] [address] [address] Nov, [place] [address] [address] Nov, Chronic pain syndrome G89.4 and Anxiety F41.9 [place] [address] [address] Oct, Chronic pain syndrome G89.4 ; Other cons tipation K59.09 and Chronic prescription opiate use Z79.899 [place] [address] [address] Oct, Chronic pain syndrome G89.4 and Anxiety F41.9 [place] [address] [address] Sep, Essential hypertension I10 [place] [address] [address] Sep, Chronic pain syndrome G89.4 and Anxiety F41.9 [place] [address] [address] Aug, Chronic pain syndrome G89.4 and Anxiety F41.9 [place] [address] [address] Jul, Essential hypertension I10 [place] [address] [address] Jul, Chronic obstructive pulmonary disease, u nspecified COPD type J44.9 [place] [address] [address] Jul, Chronic pain syndrome G89.4 and Anxiety F41.9 [place] [address] [address] 13 Jul, 2017 Chronic pain syndrome G89.4 ; Essential hypertension I10 ; Fibromyalgia M79.7 ; CKD (chronic kidney disease) stage 3, GFR 30-59 ml/min N18.3 ; Subacromial bursitis, right M75.51 and Goals of care, co unseling/discussion Z71.89 [place] [address] [address] Jun, Chronic pain syndrome G89.4 and Anxiety F41.9 [place] [address] [address] May, Chronic pain syndrome G89.4 and Anxiety F41.9 [place] [address] [address] Apr, Chronic pain syndrome G89.4 and Anxiety F41.[address] [address] Apr, Drug induced constipation K59.03 ; Chron ic pain syndrome G89.4 and CKD (chronic kidney disease) stage 3, GFR 30-59 ml/min N18.3 [place] [address] [address] Apr, Chronic pain syndrome G89.4 and Anxiety F41.[address] [address] March, Chronic pain syndrome G89.4 and Anxiety F41.[address] [address] March, Decreased GFR R94.[address] [address] Feb, [address] [address] Feb, Chronic pain syndrome G89.4 and Anxiety F41.9 [place] [address] [address] Jan, Decreased GFR R94.[address] [address] Jan, Decreased GFR R94.[address] [address] Jan, Allergic rhinitis J30.9 ; Essential hype rtension I10 ; Major depressive disorder, recurrent episode, unspecified severity F33.9 and Primary insomnia F51.[address] [address] 10 Jan, 2017 Acute right-sided thoracic back pain M54 .6 ; Subacromial bursitis of right shoulder joint M75.51 ; Chronic pain syndrome G89.4 and Anxiety F41.9 [place] [address] [address] Jan, Decreased GFR R94.4 [place] [address] [address] Dec, Decreased GFR R94.4 [place] [address] [address] Dec, Decreased GFR R94.4 [place] [address] [address] Dec, Decreased GFR R94.4 [place] [address] [address] Dec, Decreased GFR R94.4 [place] [address] [address] Dec, Anxiety F41.9 and Bilateral low back candis n, with sciatica presence unspecified M54.5 [place] [address] [address] Dec, Thrombocytosis D47.3 ; Hyperlipidemia, u nspecified hyperlipidemia E78.5 ; Need for hepatitis C screening test Z11.59 and B12 deficiency E53.8 [place] [address] [address] Nov, Need for hepatitis C screening test Z11. 59 [place] [address] [address] Nov, Anxiety F41.9 and Bilateral low back candis n, with sciatica presence unspecified M54.5 [place] [address] [address] Oct, Bilateral low back pain, with sciatica p resence unspecified M54.5 ; Chronic prescription opiate use Z79.899 ; Anxiety F41.9 ; Essential hypertension I10 ; Hyperlipidemia, unspecified hyperlipidemia E78.5 ; Health care maintenance Z00.00 and Thrombocytosis D47.3 [place] [address] [address] Sep, [facility] [address] [address] Sep, [facility] [address] [address] Aug, [facility] [address] [address] Jul, B12 deficiency E53.8 [facility] [address] [address] Jul, [place] [address] [address] Jul, Essential hypertension I10 ; Chronic candis n syndrome G89.4 ; Anxiety F41.9 ; Screening for breast cancer Z12.39 ; Atherosclerosis of wales coronary artery of [place]ales heart without angina pectoris I25.10 ; Major depressive disorder, recurrent episode, unspecified severity F33.9 ; Primary insomnia F51.01 and Allergic rhinitis J30.9 [facility] [address] [address] Jun, [facility] [address] [facility] [id number] [place] [address] Jun, Leg wound, right, initial en counter S81.801A and Encounter for immunization Z23 [facility] [address] [address] Jun, Open wound of right ear, unspecified ope n wound type, initial encounter S01.301A [facility] [address] [address] May, B12 deficiency E53.8 [place] [address] [address] May, [facility] [address] [address] May, [facility] [address] [address] May, Chronic pain syndrome G89.4 ; Chronic pr escription opiate use Z79.899 ; Allergic rhinitis J30.9 ; Essential hypertension I10 and Non-healing skin lesion L98.9 [facility] [address] [address] Apr, [facility] [address] [address] March, [facility] [address] [address] Feb, [facility] [address] [address] Feb, [place] [address] [address] Feb, Chronic pain syndrome G89.4 ; Anxiety F4 1.9 ; B12 deficiency E53.8 ; Allergic rhinitis J30.9 ; Fibromyalgia M79.7 ; Actinic keratosis L57.0 ; Skin rash R21 ; Open wound of right ear, unspecified open wound type, initial encounter S01.301A ; Subacromial bursitis, right M75.51 ; GERD (gastroesophageal reflux disease) K21.9 and Chronic obstructive pulmonary disease, unspecified COPD type J44.9 [place] [address] [address] Jan, [facility] [address] [address] Jan, Essential hypertension I10 [facility] [address] [address] Jan, [facility] [address] [address] Jan, [facility] [address] [address] Jan, [facility] [address] [address] Dec, [place] [address] [address] 16 Dec, 2015 Essential hypertension I10 [place] [address] [address] Dec, [place] [address] [address] Dec, B12 deficiency E53.8 and Essential hyper tension I10 [place] [address] [address] Dec, [place] [address] [address] Nov, Right shoulder pain M25.511 [place] [address] [address] Nov, Right shoulder pain M25.511 [place] [address] [address] Nov, Essential hypertension I10 and B12 defic iency E53.8 [place] [address] [address] Nov, Major depressive disorder, recurrent epi sode, unspecified severity F33.9 ; Anxiety F41.9 ; Chronic pain syndrome G89.4 ; Essential hypertension I10 ; Hyperlipidemia, unspecified hyperlipidemia E78.5 ; Chronic prescription opiate use Z79.899 ; Allergic rhinitis J30.9 ; B12 deficiency E53.8 and Right shoulder pain M25.511 [place] [address] [address] Oct, [place] [address] [address] Oct, [place] [address] [address] Sep, [place] [address] [address] Sep, [place] [address] [address] Aug, [facility] [address] [place] [id number] [place] [address] Aug, [facility] [address] [address] Aug, [facility] [address] [address] Aug, Other constipation K59.09 ; Hyperlipidem ia, unspecified hyperlipidemia E78.5 ; Essential hypertension I10 ; Primary insomnia F51.01 ; Anxiety F41.9 ; Chronic pain syndrome G89.4 ; Right shoulder pain M25.511 and Acute cystitis without hematuria N30.00 [facility] [address] [address] Jul, [facility] [address] [address] Jul, [facility] [address] [address] Jun, [facility] [address] [address] Jun, [facility] [address] [address] Jun, [facility] [address] [address] May, [facility] [address] [address] May, Other chronic pain 338.29 ; Hypertension 401.9 and Constipation due to opioid therapy 564.09 [facility] [address] [address] May, [facility] [address] [address] May, [facility] [address] [address] Apr, [facility] [address] [address] Apr, Unspecified essential hypertension 401.9 [facility] [address] [id number] [place] [address] 16 Apr, 2015 [facility] [id number] [place] [address] Apr, [facility] [id number] [place] [address] Apr, [facility] [address] [id number] [place] [address] Apr, [facility] [address] [id number] [place] [address] Apr, [facility] [id number] [place] [address] Apr, [facility] [id number] [place] [address] March, Unspecified essential hypertension 401.9 [facility] [id number] [place] [address] March, [facility] [address] [id number] [place] [address] March, [facility] [address] [id number] [place] [address] 14 Feb, 2015 [facility] [address] [id number] [place] [address] Feb, [facility] [id number] [place] [address] 23 Jan, [address] [facility] [id number] [place] [address] 23 Jan, 2015 [facility] [id number] [place] [address] 17 Jan, [address] [facility] [address] [id number] [place] [address] 17 Jan, 2015 [facility] [address] [id number] [place] [address] Jan, [facility] [address] [facility] [id number] [place] [address] Jan, [facility] [address] [facility] [id number] [place] [address] Jan, [facility] [address] [id number] [place] [address] Dec, [facility] [address] [id number] [place] [address] Dec, [facility] [address] [facility] [id number] [place] [address] Dec, [facility] [address] [id number] [place] [address] Nov, [facility] [address] [id number] [place] [address] Nov, [facility] [address] [id number] [place] [address] Oct, [facility] [address] [facility] [id number] [place] [address] Oct, [facility] [address] [id number] [place] [address] Oct, [facility] [address] [id number] [place] [address] Oct, [facility] [address] [id number] [place] [address] Oct, [facility] [address] [id number] [place] [address] Oct, [facility] [address] [id number] [place] [address] Oct, [facility] [address] [id number] [place] [address] Oct, [facility] [address] [id number] [place] [address] Sep, [facility] [address] [id number] [place] [address] Sep, [facility] [address] [facility] [id number] [place] [address] Sep, [facility] [address] [id number] [place] [address] Sep, [facility] [address] [id number] [place] [address] Sep, [facility] [address] [id number] [place] [address] Sep, [facility] [address] [id number] [place] [address] Aug, [facility] [address] [id number] [place] [address] Aug, [facility] [address] [id number] [place] [address] Aug, [facility] [address] [id number] [place] [address] Aug, [facility] [address] [id number] [place] [address] Aug, [facility] [address] [id number] [place] [address] Aug, [facility] [address] [id number] [place] [address] Aug, [facility] [address] [id number] [place] [address] Aug, [facility] [address] [id number] [place] [address] Aug, [facility] [address] [id number] [place] [address] Aug, [facility] [address] [id number] [place] [address] Jul, [facility] [address] [id number] [place] [address] Jul, [facility] [address] [id number] [place] [address] Jul, [facility] [address] [facility] [id number] [place] [address] Jul, [facility] [address] [facility] [id number] [place] [address] Jul, [facility] [address] [id number] [place] [address] Jul, [facility] [address] [facility] [id number] [place] [address] Jun, [facility] [address] [facility] [id number] [place] [address] Jun, [facility] [address] [id number] [place] [address] Jun, [facility] [address] [id number] [place] [address] Jun, [facility] [address] [id number] [place] [address] Jun, [facility] [address] [id number] [place] [address] Jun, [facility] [address] [id number] [place] [address] May, [facility] [address] [id number] [place] [address] May, [facility] [address] [id number] [place] [address] May, [facility] [address] [facility] [id number] [place] [address] May, [facility] [address] [id number] [place] [address] May, [facility] [address] [id number] [place] [address] Apr, [facility] [address] [id number] [place] [address] Apr, [facility] [address] [id number] [facility] [address] Apr, [facility] [address] [facility] [id number] [facility] [address] Apr, [facility] [address] [facility] [id number] [place] [address] March, [facility] [address] [id number] [facility] [address] March, [facility] [address] [id number] [place] [address] March, [facility] [address] [id number] [place] [address] March, [facility] [address] [id number] [place] [address] March, [facility] [address] [id number] [place] [address] March, [facility] [address] [facility] [address] [facility] [id number] [place] [address] Feb, [facility] [id number] [place] [address] Feb, [facility] [address] [id number] [place] [address] Feb, [facility] [address] [id number] [place] [address] Feb, [facility] [address] [facility] [id number] [place] [address] Feb, [facility] [address] [id number] [place] [address] Feb, [facility] [address] [id number] [place] [address] Feb, [facility] [address] [id number] [place] [address] Feb, [facility] [address] [id number] [place] [address] Jan, [facility] [address] [facility] [id number] [place] [address] Jan, [facility] [address] [id number] [place] [address] Jan, [facility] [address] [id number] [place] [address] Jan, [facility] [address] [id number] [place] [address] Jan, [facility] [address] [facility] [id number] [place] [address] Jan, [facility] [address] [id number] [place] [address] Dec, [facility] [address] [id number] [place] [address] Dec, [facility] [address] [id number] [place] [address] Nov, [facility] [address] [id number] [place] [address] Nov, [facility] [address] [id number] [place] [address] Nov, [facility] [address] [id number] [place] [address] Nov, [facility] [address] [id number] [place] [address] Nov, [facility] [address] [id number] [place] [address] Nov, [facility] [address] [id number] [place] [address] Nov, [facility] [address] [id number] [place] [address] Nov, [facility] [address] [id number] [place] [address] Nov, [facility] [address] [id number] [place] [address] Nov, [facility] [address] [id number] [place] [address] Nov, [facility] [address] [id number] [place] [address] Nov, [facility] [address] [id number] [place] [address] Nov, [facility] [address] [id number] [place] [address] Nov, [facility] [address] [id number] [place] [address] Nov, [facility] [address] [id number] [place] [address] Oct, [facility] [id number] [place] [address] Oct, [facility] [address] [id number] [place] [address] Oct, [facility] [address] [id number] [place] [address] Oct, [facility] [address] [id number] [place] [address] Oct, [facility] [address] [id number] [place] [address] Oct, [facility] [address] [id number] [place] [address] Oct, [facility] [address] [id number] [place] [address] Oct, [facility] [address] [id number] [place] [address] Oct, [facility] [address] [id number] [place] [address] Aug, [facility] [address] [id number] [place] [address] Aug, IMMUNIZATIONS No Known Immunizations SOCIAL HISTORY [...] by Dr. Troy Michelle pain specialist in [place], [place] Medical History Chronic low back pain [...]
--- OUTSIDE RECORDS SUMMARY | 2020-06-19 02:05 | XMS REPORT ---
Author Author Mahsa Walker Organization [facility] Address [address] [place] [address] Care Team Providers Care Insulator Helper Name Role Phone LISETH Walker Unavailable PROBLEMS Type Condition ICD9-CM Code FPU56-OX Code Onset Dates Condition S tatus SNOMED Code Problem Anxiety F41.9 Active 58988778 Problem Essential hypertension I10 Active 94657376 Problem Chronic pain syndrome G89.4 Active 173881807 Problem Primary insomnia F51.01 Active 193 136901 Problem Hyperlipidemia, unspecified hyperlipidemia E78.5 Active 19267494 Problem Other constipation K59.09 Active 1 [id number] Problem Atherosclerosis of grindstone co ronary 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.10 Active [id number] Problem Major depressive disorder, recurrent episode, un specified severity F33.9 Active 10520532 Problem Bilateral low back pain, with sciatica presence unspecifie d M54.5 Active 726375799 Problem Fibromyalgia M79.7 Active 8671330 7 Problem GERD (gastroesophageal reflux disease) K21.9 Active 380724773 Problem Degenerative disc disease, thoracic M51.34 Active 45051069 Problem Allergic rhinitis J30.9 Active 61 774899 Problem Moderate episode of recurrent major depressive disorder F33.1 Active 253581070 Problem B12 deficiency E53.8 Active 97654 4004 Problem Chronic obstructive pulmonary disease, unspecified COPD ty pe J44.9 Active 01634731 Problem CKD (chronic kidney disease) stage 3, GFR 30-59 ml/min N18.3 Active 472024368 Problem Cannabis abuse F12.10 Active 21190 009 Problem Degenerative disc disease, cervical M50.30 Active 97366300 ALLERGIES No Information ENCOUNTERS Encounter Location Date Diagnosis [facility] [address] [id number] [place] [address] Nov, [facility] [address] [id number] [place] [address] Oct, Moderate episode of recurrent major depr essive disorder F33.1 ; Chronic obstructive pulmonary disease, unspecified COPD type J44.9 ; CKD (chronic kidney disease) stage 3, GFR 30-59 ml/min N18.3 ; Essential hypertension I10 and Possible exposure to STD Z20.2 [place] [address] [address] Oct, Essential hypertension I10 [place] [address] [address] Oct, [place] [address] [address] Sep, Essential hypertension I10 [place] [address] [address] Sep, [place] [address] [address] Sep, [place] [address] [address] Sep, [place] [address] [address] Aug, Essential hypertension I10 [place] [address] [address] Aug, Essential hypertension I10 [place] [address] [address] Jul, Allergic rhinitis J30.9 ; CKD (chronic k idney disease) stage 3, GFR 30-59 ml/min N18.3 ; Essential hypertension I10 and Moderate episode of recurrent major depressive disorder F33.1 [place] [address] [address] 11 Jul, 2019 Elevated platelet count R79.89 ; B12 def iciency E53.8 ; Hyperlipidemia, unspecified hyperlipidemia E78.5 and CKD (chronic kidney disease) stage 3, GFR 30-59 ml/min N18.3 [place] [address] [address] Apr, B12 deficiency E53.8 [place] [address] [address] Jan, Periumbilical hernia K42.9 ; CKD (chroni c kidney disease) stage 3, GFR 30-59 ml/min N18.3 ; Essential hypertension I10 ; GERD (gastroesophageal reflux disease) K21.9 ; Hyperlipidemia, unspecified hyperlipidemia E78.5 and Major depressive disorder, recurrent episode, unspecified severity F33.9 [place] [address] [address] 12 Dec, 2018 Anxiety F41.9 [place] [address] [place] [address] Nov, Elevated platelet count R79.89 [place] [address] [address] 15 Nov, 2018 [place] [address] [address] Nov, Elevated platelet count R79.89 [place] [address] [address] Nov, Anxiety F41.9 [place] [address] [address] Nov, Bilateral low back pain, with sciatica p resence unspecified M54.5 ; Cervicalgia M54.2 ; Degenerative disc disease, cervical M50.30 and Degenerative disc disease, thoracic M51.34 [place] [address] [address] Nov, Chronic pain syndrome G89.4 and Bilatera l low back pain, with sciatica presence unspecified M54.[address] [address] Oct, Umbilical hernia without obstruction and without gangrene K42.9 [place] [address] [address] Oct, Chronic pain syndrome G89.4 [place] [address] [address] 13 Oct, 2018 Chronic pain syndrome G89.4 and Anxiety F41.9 [place] [address] [address] 12 Oct, 2018 Elevated platelet count R79.89 [place] [address] [address] Oct, CKD (chronic kidney disease) stage 3, GF R 30-59 ml/min N18.3 ; Other chest pain R07.89 ; Acute midline thoracic back pain M54.6 ; Essential hypertension I10 and History of osteoporosis Z87.39 [place] [address] [address] Sep, Chronic pain syndrome G89.4 [place] [address] [address] 16 Sep, [address] [address] Sep, Anxiety F41.9 and Chronic pain syndrome G89.4 [place] [address] [address] 18 Aug, 2018 Chronic pain syndrome G89.4 and Anxiety F41.9 [place] [address] [address] Aug, [address] [address] Aug, Cannabis abuse F12.10 and Controlled sub stance agreement terminated Z91.[address] [address] Jul, Chronic pain syndrome G89.4 ; Bilateral low back pain, with sciatica presence unspecified M54.5 ; Chronic prescription opiate use Z79.899 ; Essential hypertension I10 ; Hyperlipidemia, unspecified hyperlipidemia E78.5 ; CKD (chronic kidney disease) stage 3, GFR 30-59 ml/min N18.3 and Allergic rhinitis J30.9 [place] [address] [address] Jul, Chronic pain syndrome G89.4 and Anxiety F41.9 [place] [address] [address] Jul, Screening for breast cancer Z12.31 and Casandra castillo depressive disorder, recurrent episode, unspecified severity F33.9 [place] [address] [address] Jun, Chronic pain syndrome G89.4 and Anxiety F41.9 [place] [address] [address] May, Chronic pain syndrome G89.4 and Anxiety F41.9 [place] [address] [address] Apr, Anxiety F41.9 [place] [address] [address] Apr, Chronic prescription opiate use Z79.899 ; Chronic pain syndrome G89.4 ; Essential hypertension I10 ; Allergic rhinitis J30.9 and CKD (chronic kidney disease) stage 3, GFR 30-59 ml/min N18.3 [place] [address] [address] Apr, [place] [address] [address] March, Anxiety F41.9 and Chronic pain syndrome G89.4 [place] [address] [address] March, CKD (chronic kidney disease) stage 3, GF R 30-59 ml/min N18.3 ; B12 deficiency E53.8 and Hyperlipidemia, unspecified hyperlipidemia E78.5 [place] [address] [address] March, Anxiety F41.9 and Chronic pain syndrome G89.4 [place] [address] [address] Feb, Anxiety F41.9 and Chronic pain syndrome G89.4 [place] [address] [address] Jan, B12 deficiency E53.8 [place] [address] [address] Jan, [place] [address] [address] Jan, Anxiety F41.9 ; Chronic pain syndrome G8 9.4 and Essential hypertension I10 [place] [address] [address] Jan, CKD (chronic kidney disease) stage 3, [...] Subacromial bursitis of right shoulder joint M75.51 [place] [address] [address] Dec, Essential hypertension I10 [place] [address] [address] 15 Dec, 2017 Chronic pain syndrome G89.4 [place] [address] [address] Dec, Chronic pain syndrome G89.4 [place] [address] [address] Nov, [place] [address] [address] Nov, Chronic pain syndrome G89.4 and Anxiety F41.9 [place] [address] [address] Oct, Chronic pain syndrome G89.4 ; Other cons tipation K59.09 and Chronic prescription opiate use Z79.899 [place] [address] [address] Oct, Chronic pain syndrome G89.4 and Anxiety F41.9 [place] [address] [address] Sep, Essential hypertension I10 [address] [address] Sep, Chronic pain syndrome G89.4 and Anxiety F41.[address] [address] Aug, Chronic pain syndrome G89.4 and Anxiety F41.[address] [address] Jul, Essential hypertension I10 [address] [address] Jul, Chronic obstructive pulmonary disease, u nspecified COPD type J44.[address] [address] Jul, Chronic pain syndrome G89.4 and Anxiety F41.[address] [address] 13 Jul, 2017 Chronic pain syndrome G89.4 ; Essential hypertension I10 ; Fibromyalgia M79.7 ; CKD (chronic kidney disease) stage 3, GFR 30-59 ml/min N18.3 ; Subacromial bursitis, right M75.51 and Goals of care, co unseling/discussion Z71.[address] [address] Jun, Chronic pain syndrome G89.4 and Anxiety F41.[address] [address] May, Chronic pain syndrome G89.4 and Anxiety F41.[address] [id number] [place] [address] Apr, Chronic pain syndrome G89.4 and Anxiety F41.[address] [address] Apr, Drug induced constipation K59.03 ; Chron ic pain syndrome G89.4 and CKD (chronic kidney disease) stage 3, GFR 30-59 ml/min N18.3 [place] [address] [address] Apr, Chronic pain syndrome G89.4 and Anxiety F41.[address] [address] March, Chronic pain syndrome G89.4 and Anxiety F41.9 [place] [address] [address] March, Decreased GFR R94.4 [place] [address] [address] Feb, [address] [address] Feb, Chronic pain syndrome G89.4 and Anxiety F41.9 [place] [address] [address] Jan, Decreased GFR R94.[address] [address] Jan, Decreased GFR R94.[address] [address] Jan, Allergic rhinitis J30.9 ; Essential hype rtension I10 ; Major depressive disorder, recurrent episode, unspecified severity F33.9 and Primary insomnia F51.[address] [address] Jan, Acute right-sided thoracic back pain M54 .6 ; Subacromial bursitis of right shoulder joint M75.51 ; Chronic pain syndrome G89.4 and Anxiety F41.9 [place] [address] [address] Jan, Decreased GFR R94.4 [place] [address] [address] Dec, Decreased GFR R94.4 [place] [address] [address] Dec, Decreased GFR R94.4 [place] [address] [address] Dec, Decreased GFR R94.4 [place] [address] [address] Dec, Decreased GFR R94.4 [place] [address] [address] Dec, Anxiety F41.9 and Bilateral low back candis n, with sciatica presence unspecified M54.5 [place] [address] [address] Dec, Thrombocytosis D47.3 ; Hyperlipidemia, u nspecified hyperlipidemia E78.5 ; Need for hepatitis C screening test Z11.59 and B12 deficiency E53.8 [place] [address] [address] Nov, Need for hepatitis C screening test Z11. 59 [place] [address] [address] Nov, Anxiety F41.9 and Bilateral low back candis n, with sciatica presence unspecified M54.5 [place] [address] [address] Oct, Bilateral low back pain, with sciatica p resence unspecified M54.5 ; Chronic prescription opiate use Z79.899 ; Anxiety F41.9 ; Essential hypertension I10 ; Hyperlipidemia, unspecified hyperlipidemia E78.5 ; Health care maintenance Z00.00 and Thrombocytosis D47.3 [place] [address] [address] Sep, [facility] [address] [address] Sep, [facility] [address] [address] Aug, [facility] [address] [address] Jul, B12 deficiency E53.8 [facility] [address] [address] Jul, [place] [address] [address] Jul, Essential hypertension I10 ; Chronic candis n syndrome G89.4 ; Anxiety F41.9 ; Screening for breast cancer Z12.39 ; Atherosclerosis of grindstone coronary 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.10 ; Major depressive disorder, recurrent episode, unspecified severity F33.9 ; Primary insomnia F51.01 and Allergic rhinitis J30.9 [facility] [address] [address] Jun, [facility] [address] [facility] [id number] [place] [address] Jun, Leg wound, right, initial en counter S81.801A and Encounter for immunization Z23 [facility] [address] [address] Jun, Open wound of right ear, unspecified ope n wound type, initial encounter S01.301A [facility] [address] [address] May, B12 deficiency E53.8 [facility] [address] [address] May, [facility] [address] [address] May, [facility] [address] [address] May, Chronic pain syndrome G89.4 ; Chronic pr escription opiate use Z79.899 ; Allergic rhinitis J30.9 ; Essential hypertension I10 and Non-healing skin lesion L98.9 [facility] [address] [address] Apr, [facility] [address] [address] March, [facility] [address] [address] Feb, [place] [address] [address] Feb, [place] [address] [address] Feb, Chronic pain syndrome G89.4 ; Anxiety F4 1.9 ; B12 deficiency E53.8 ; Allergic rhinitis J30.9 ; Fibromyalgia M79.7 ; Actinic keratosis L57.0 ; Skin rash R21 ; Open wound of right ear, unspecified open wound type, initial encounter S01.301A ; Subacromial bursitis, right M75.51 ; GERD (gastroesophageal reflux disease) K21.9 and Chronic obstructive pulmonary disease, unspecified COPD type J44.9 [place] [address] [address] Jan, [facility] [address] [address] Jan, Essential hypertension I10 [facility] [address] [address] Jan, [facility] [address] [address] Jan, [facility] [address] [address] Jan, [facility] [address] [address] Dec, [place] [address] [address] 16 Dec, 2015 Essential hypertension I10 [place] [address] [address] Dec, [facility] [address] [address] Dec, B12 deficiency E53.8 and Essential hyper tension I10 [place] [address] [address] Dec, [place] [address] [address] Nov, Right shoulder pain M25.511 [place] [address] [address] Nov, Right shoulder pain M25.511 [place] [address] [address] Nov, Essential hypertension I10 and B12 defic iency E53.8 [place] [address] [address] Nov, Major depressive disorder, recurrent epi sode, unspecified severity F33.9 ; Anxiety F41.9 ; Chronic pain syndrome G89.4 ; Essential hypertension I10 ; Hyperlipidemia, unspecified hyperlipidemia E78.5 ; Chronic prescription opiate use Z79.899 ; Allergic rhinitis J30.9 ; B12 deficiency E53.8 and Right shoulder pain M25.511 [place] [address] [address] Oct, [place] [address] [address] Oct, [place] [address] [address] Sep, [place] [address] [address] Sep, [place] [address] [address] Aug, [facility] [address] [address] Aug, [facility] [address] [address] Aug, [facility] [address] [address] Aug, Other constipation K59.09 ; Hyperlipidem ia, unspecified hyperlipidemia E78.5 ; Essential hypertension I10 ; Primary insomnia F51.01 ; Anxiety F41.9 ; Chronic pain syndrome G89.4 ; Right shoulder pain M25.511 and Acute cystitis without hematuria N30.00 [facility] [address] [address] Jul, [facility] [address] [address] Jul, [facility] [address] [address] Jun, [facility] [address] [address] Jun, [facility] [address] [address] Jun, [facility] [address] [address] May, [facility] [address] [address] May, Other chronic pain 338.29 ; Hypertension 401.9 and Constipation due to opioid therapy 564.09 [facility] [address] [address] May, [facility] [address] [address] May, [facility] [address] [address] Apr, [facility] [address] [address] 17 Apr, 2015 Unspecified essential hypertension 401.9 [facility] [address] [id number] [place] [address] 16 Apr, 2015 [facility] [address] [id number] [place] [address] 16 Apr, 2015 [facility] [address] [id number] [place] [address] Apr, [facility] [place] [facility] [address] [id number] [place] [address] Apr, [facility] [address] [id number] [place] [address] Apr, [facility] [address] [id number] [place] [address] Apr, [facility] [address] [id number] [place] [address] March, Unspecified essential hypertension 401.9 [facility] [address] [id number] [place] [address] March, [facility] [address] [id number] [place] [address] March, [facility] [address] [id number] [place] [address] 14 Feb, 2015 [facility] [address] [id number] [place] [address] 13 Feb, 2015 [facility] [place] [facility] [address] [id number] [place] [address] 23 Jan, 2015 [facility] [place] [facility] [address] [id number] [place] [address] 23 Jan, 2015 [facility] [place] [facility] [address] [id number] [place] [address] 17 Jan, 2015 [facility] [place] [facility] [address] [id number] [place] [address] 17 Jan, 2015 [facility] [place] [facility] [address] [id number] [place] [address] Jan, [facility] [place] [facility] [address] [facility] [id number] [place] [address] Jan, [facility] [place] [facility] [address] [facility] [id number] [place] [address] Jan, [facility] [place] [facility] [address] [id number] [place] [address] Dec, [facility] [place] [facility] [address] [id number] [place] [address] Dec, [facility] [place] [facility] [address] [id number] [place] [address] Dec, [facility] [place] [facility] [address] [id number] [place] [address] Nov, [facility] [place] [facility] [address] [id number] [place] [address] Nov, [facility] [place] [facility] [address] [id number] [place] [address] Oct, [facility] [place] [facility] [address] [id number] [place] [address] Oct, [facility] [place] [facility] [address] [id number] [place] [address] Oct, [facility] [place] [facility] [address] [id number] [place] [address] Oct, [facility] [place] [facility] [address] [id number] [place] [address] Oct, [facility] [place] [facility] [address] [id number] [place] [address] Oct, [facility] [place] [facility] [address] [id number] [place] [address] Oct, [facility] [place] [facility] [address] [id number] [place] [address] Oct, [facility] [place] [facility] [address] [id number] [place] [address] Sep, [facility] [place] [facility] [address] [id number] [place] [address] Sep, [facility] [place] [facility] [address] [facility] [id number] [place] [address] Sep, [facility] [place] [facility] [address] [facility] [id number] [place] [address] Sep, [facility] [place] [facility] [address] [id number] [place] [address] Sep, [facility] [place] [facility] [address] [id number] [place] [address] Sep, [facility] [place] [facility] [address] [facility] [id number] [place] [address] Aug, [facility] [place] [facility] [address] [id number] [place] [address] Aug, [facility] [place] [facility] [address] [id number] [place] [address] Aug, [facility] [place] [facility] [address] [id number] [place] [address] Aug, [facility] [place] [facility] [address] [id number] [place] [address] Aug, [facility] [place] [facility] [address] [id number] [place] [address] Aug, [facility] [place] [facility] [address] [id number] [place] [address] Aug, [facility] [place] [facility] [address] [id number] [place] [address] Aug, [facility] [place] [facility] [address] [facility] [id number] [place] [address] Aug, [facility] [place] [facility] [address] [id number] [place] [address] Aug, [facility] [place] [facility] [address] [id number] [place] [address] Jul, [facility] [place] [facility] [address] [id number] [place] [address] Jul, [facility] [place] [facility] [address] [id number] [place] [address] Jul, [facility] [address] [facility] [id number] [place] [address] Jul, [facility] [address] [facility] [id number] [place] [address] Jul, [facility] [address] [id number] [place] [address] Jul, [facility] [address] [facility] [id number] [place] [address] Jun, [facility] [address] [id number] [place] [address] Jun, [facility] [address] [id number] [place] [address] Jun, [facility] [address] [id number] [place] [address] Jun, [facility] [address] [id number] [place] [address] Jun, [facility] [address] [id number] [place] [address] Jun, [facility] [address] [id number] [place] [address] May, [facility] [address] [id number] [place] [address] May, [facility] [address] [id number] [place] [address] May, [facility] [address] [facility] [id number] [place] [address] May, [facility] [address] [id number] [place] [address] May, [facility] [address] [id number] [place] [address] Apr, [facility] [address] [id number] [place] [address] Apr, [facility] [address] [facility] [id number] [facility] [place] [address] Apr, [facility] [address] [facility] [id number] [facility] [place] [address] Apr, [facility] [address] [id number] [facility] [place] [address] March, [facility] [address] [id number] [place] [place] [address] March, [facility] [address] [facility] [id number] [facility] [place] [address] March, [facility] [address] [id number] [place] [address] March, [facility] [address] [id number] [place] [address] March, [facility] [address] [id number] [place] [address] March, [facility] [address] [id number] [place] [address] Feb, [facility] [address] [id number] [place] [address] Feb, [facility] [address] [id number] [place] [address] Feb, [facility] [address] [id number] [place] [address] Feb, [facility] [address] [id number] [place] [address] Feb, [facility] [address] [id number] [place] [address] Feb, [facility] [address] [id number] [place] [address] Feb, [facility] [address] [id number] [place] [address] Feb, [facility] [address] [id number] [facility] [place] [address] Jan, [facility] [address] [facility] [id number] [place] [address] Jan, [facility] [address] [facility] [id number] [place] [address] Jan, [facility] [address] [id number] [place] [address] Jan, [facility] [address] [facility] [id number] [place] [address] Jan, [facility] [address] [facility] [id number] [place] [address] Jan, [facility] [address] [id number] [place] [address] Dec, [facility] [address] [id number] [place] [address] Dec, [facility] [address] [id number] [place] [address] Nov, [facility] [address] [facility] [id number] [place] [address] Nov, [facility] [address] [id number] [place] [address] Nov, [facility] [address] [id number] [place] [address] Nov, [facility] [address] [id number] [place] [address] Nov, [facility] [address] [facility] [id number] [place] [address] Nov, [facility] [address] [id number] [place] [address] Nov, [facility] [address] [id number] [place] [address] Nov, [facility] [address] [id number] [place] [address] Nov, [facility] [address] [id number] [place] [address] Nov, [facility] [address] [id number] [place] [address] Nov, [facility] [address] [id number] [place] [address] Nov, [facility] [address] [id number] [place] [address] Nov, [facility] [address] [id number] [place] [address] Nov, [facility] [address] [id number] [place] [address] Nov, [facility] [address] [id number] [place] [address] Oct, [facility] [address] [id number] [place] [address] Oct, [facility] [address] [id number] [place] [address] Oct, [facility] [address] [id number] [place] [address] Oct, [facility] [address] [id number] [place] [address] Oct, [facility] [address] [id number] [place] [address] Oct, [facility] [address] [id number] [place] [address] Oct, [facility] [address] [id number] [place] [address] Oct, [facility] [address] [id number] [place] [address] Oct, [facility] [address] [id number] [place] [address] Aug, [facility] [address] [id number] [place] [address] Aug, IMMUNIZATIONS No Known Immunizations SOCIAL HISTORY Never Assessed REASON FOR VISIT PLAN OF CARE VITAL SIGNS Weight 209.12 lbs 2014-04-02 Temperature 98 degrees Fahrenheit 2014-04-02 Heart Rate 80 bpm 2014-04-02 Respiratory Rate 24 2014-04-02 Blood pressure systolic 132 mmHg 2014-04-02 Blood pressure diastolic 90 mmHg 2014-04-02 MEDICATIONS Unknown Medications RESULTS No Results PROCEDURES No Known procedures INSTRUCTIONS MEDICATIONS ADMINISTERED No Known Medications MEDICAL (GENERAL) HISTORY Type Description Date Medical History hypertension Medical History asthma Medical History Arthritis Medical History Hypoglycemia Medical History Heart Cath 11/05/2013 Medical History herniated disc--Seen by Dr. Troy Michelle pain specialist in [place], [place] Medical History Chronic low back pain [...]
--- OUTSIDE RECORDS SUMMARY | 2020-06-19 02:05 | XMS REPORT ---
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 Name Role Phone ARMANDONYASIA DIAZY Unavailable PROBLEMS Type Condition ICD9-CM Code ZIE59-OC Code Onset Dates Condition S tatus SNOMED Code Problem Chronic pain syndrome G89.4 Active 404819309 Problem Other constipation K59.09 Active 1 [id number] Problem Anxiety F41.9 Active 01413383 Problem Primary insomnia F51.01 Active 193 112109 Problem Atherosclerosis of [place] co ronary artery of [place] heart without angina pectoris I25.10 Active 9279444825731 Problem Essential hypertension I10 Active 02338455 Problem Hyperlipidemia, unspecified hyperlipidemia E78.5 Active 04518239 Problem Major depressive disorder, recurrent episode, un specified severity F33.9 Active 57441054 Problem Allergic rhinitis J30.9 Active 61 145845 Problem Fibromyalgia M79.7 Active 8696146 7 Problem GERD (gastroesophageal reflux disease) K21.9 Active 682383118 Problem Degenerative disc disease, thoracic M51.34 Active 04875731 Problem Bilateral low back pain, with sciatica presence unspecifie d M54.5 Active 759794816 Problem Moderate episode of recurrent major depressive disorder F33.1 Active 442100636 Problem B12 deficiency E53.8 Active 57992 4004 Problem Chronic obstructive pulmonary disease, unspecified COPD ty pe J44.9 Active 87445805 Problem CKD (chronic kidney disease) stage 3, GFR 30-59 ml/min N18.3 Active 500720904 Problem Cannabis abuse F12.10 Active 76795 009 Problem Degenerative disc disease, cervical M50.30 Active 13622258 ALLERGIES No Information ENCOUNTERS Encounter Location Date Diagnosis [facility] [address] [id number] [place] [address] Nov, [facility] [address] [id number] [place] [address] Oct, Moderate episode of recurrent major depr essive disorder F33.1 ; Chronic obstructive pulmonary disease, unspecified COPD type J44.9 ; CKD (chronic kidney disease) stage 3, GFR 30-59 ml/min N18.3 ; Essential hypertension I10 and Possible exposure to STD Z20.2 [place] [address] [address] Oct, Essential hypertension I10 [place] [address] [address] Oct, [place] [address] [address] Sep, Essential hypertension I10 [place] [address] [address] Sep, [place] [address] [address] Sep, [place] [address] [address] Sep, [place] [address] [address] Aug, Essential hypertension I10 [place] [address] [address] Aug, Essential hypertension I10 [place] [address] [address] Jul, Allergic rhinitis J30.9 ; CKD (chronic k idney disease) stage 3, GFR 30-59 ml/min N18.3 ; Essential hypertension I10 and Moderate episode of recurrent major depressive disorder F33.1 [place] [address] [address] 11 Jul, 2019 Elevated platelet count R79.89 ; B12 def iciency E53.8 ; Hyperlipidemia, unspecified hyperlipidemia E78.5 and CKD (chronic kidney disease) stage 3, GFR 30-59 ml/min N18.3 [place] [address] [address] Apr, B12 deficiency E53.8 [place] [address] [address] Jan, Periumbilical hernia K42.9 ; CKD (chroni c kidney disease) stage 3, GFR 30-59 ml/min N18.3 ; Essential hypertension I10 ; GERD (gastroesophageal reflux disease) K21.9 ; Hyperlipidemia, unspecified hyperlipidemia E78.5 and Major depressive disorder, recurrent episode, unspecified severity F33.9 [place] [address] [place] [address] 12 Dec, 2018 Anxiety F41.9 [place] [address] [address] Nov, Elevated platelet count R79.89 [place] [address] [address] 15 Nov, 2018 [place] [address] [address] Nov, Elevated platelet count R79.89 [place] [address] [address] Nov, Anxiety F41.9 [place] [address] [address] Nov, Bilateral low back pain, with sciatica p resence unspecified M54.5 ; Cervicalgia M54.2 ; Degenerative disc disease, cervical M50.30 and Degenerative disc disease, thoracic M51.[address] [address] Nov, Chronic pain syndrome G89.4 and Bilatera l low back pain, with sciatica presence unspecified M54.[address] [address] Oct, Umbilical hernia without obstruction and without gangrene K42.9 [place] [address] [address] Oct, Chronic pain syndrome G89.4 [place] [address] [address] 13 Oct, 2018 Chronic pain syndrome G89.4 and Anxiety F41.9 [place] [address] [address] Oct, Elevated platelet count R79.89 [place] [address] [address] Oct, CKD (chronic kidney disease) stage 3, GF R 30-59 ml/min N18.3 ; Other chest pain R07.89 ; Acute midline thoracic back pain M54.6 ; Essential hypertension I10 and History of osteoporosis Z87.39 [place] [address] [address] Sep, Chronic pain syndrome G89.4 [place] [address] [address] Sep, [address] [address] Sep, Anxiety F41.9 and Chronic pain syndrome G89.4 [place] [address] [address] 18 Aug, 2018 Chronic pain syndrome G89.4 and Anxiety F41.9 [place] [address] [address] Aug, [place] [address] [address] Aug, Cannabis abuse F12.10 and Controlled sub stance agreement terminated Z91.14 [place] [address] [address] Jul, Chronic pain syndrome G89.4 ; Bilateral low back pain, with sciatica presence unspecified M54.5 ; Chronic prescription opiate use Z79.899 ; Essential hypertension I10 ; Hyperlipidemia, unspecified hyperlipidemia E78.5 ; CKD (chronic kidney disease) stage 3, GFR 30-59 ml/min N18.3 and Allergic rhinitis J30.9 [place] [address] [address] Jul, Chronic pain syndrome G89.4 and Anxiety F41.9 [place] [address] [address] Jul, Screening for breast cancer Z12.31 and Casandra castillo depressive disorder, recurrent episode, unspecified severity F33.9 [place] [address] [address] Jun, Chronic pain syndrome G89.4 and Anxiety F41.9 [place] [address] [address] May, Chronic pain syndrome G89.4 and Anxiety F41.9 [place] [address] [address] Apr, Anxiety F41.[address] [address] Apr, Chronic prescription opiate use Z79.899 ; Chronic pain syndrome G89.4 ; Essential hypertension I10 ; Allergic rhinitis J30.9 and CKD (chronic kidney disease) stage 3, GFR 30-59 ml/min N18.3 [place] [address] [address] Apr, [place] [address] [address] March, Anxiety F41.9 and Chronic pain syndrome G89.[address] [address] March, CKD (chronic kidney disease) stage 3, GF R 30-59 ml/min N18.3 ; B12 deficiency E53.8 and Hyperlipidemia, unspecified hyperlipidemia E78.5 [place] [address] [address] March, Anxiety F41.9 and Chronic pain syndrome G89.[address] [address] Feb, Anxiety F41.9 and Chronic pain syndrome G89.4 [place] [address] [address] Jan, B12 deficiency E53.8 [place] [address] [address] Jan, [place] [address] [address] Jan, Anxiety F41.9 ; Chronic pain syndrome G8 9.4 and Essential hypertension I10 [place] [address] [address] Jan, CKD (chronic kidney disease) stage 3, [...] Subacromial bursitis of right shoulder joint M75.51 [place] [address] [address] Dec, Essential hypertension I10 [place] [address] [address] Dec, Chronic pain syndrome G89.4 [place] [address] [address] Dec, Chronic pain syndrome G89.4 [place] [address] [address] Nov, [place] [address] [address] Nov, Chronic pain syndrome G89.4 and Anxiety F41.9 [place] [address] [address] Oct, Chronic pain syndrome G89.4 ; Other cons tipation K59.09 and Chronic prescription opiate use Z79.899 [place] [address] [address] Oct, Chronic pain syndrome G89.4 and Anxiety F41.9 [place] [address] [address] Sep, Essential hypertension I10 [place] [address] [address] Sep, Chronic pain syndrome G89.4 and Anxiety F41.9 [place] [address] [address] Aug, Chronic pain syndrome G89.4 and Anxiety F41.9 [place] [address] [address] Jul, Essential hypertension I10 [place] [address] [address] Jul, Chronic obstructive pulmonary disease, u nspecified COPD type J44.9 [place] [address] [address] Jul, Chronic pain syndrome G89.4 and Anxiety F41.9 [place] [address] [address] 13 Jul, 2017 Chronic pain syndrome G89.4 ; Essential hypertension I10 ; Fibromyalgia M79.7 ; CKD (chronic kidney disease) stage 3, GFR 30-59 ml/min N18.3 ; Subacromial bursitis, right M75.51 and Goals of care, co unseling/discussion Z71.89 [place] [address] [address] Jun, Chronic pain syndrome G89.4 and Anxiety F41.9 [place] [address] [address] May, Chronic pain syndrome G89.4 and Anxiety F41.9 [place] [address] [address] Apr, Chronic pain syndrome G89.4 and Anxiety F41.[address] [address] Apr, Drug induced constipation K59.03 ; Chron ic pain syndrome G89.4 and CKD (chronic kidney disease) stage 3, GFR 30-59 ml/min N18.3 [place] [address] [address] Apr, Chronic pain syndrome G89.4 and Anxiety F41.[address] [address] March, Chronic pain syndrome G89.4 and Anxiety F41.[address] [address] March, Decreased GFR R94.[address] [address] Feb, [address] [address] Feb, Chronic pain syndrome G89.4 and Anxiety F41.9 [place] [address] [address] Jan, Decreased GFR R94.[address] [address] Jan, Decreased GFR R94.[address] [address] Jan, Allergic rhinitis J30.9 ; Essential hype rtension I10 ; Major depressive disorder, recurrent episode, unspecified severity F33.9 and Primary insomnia F51.[address] [address] 10 Jan, 2017 Acute right-sided thoracic back pain M54 .6 ; Subacromial bursitis of right shoulder joint M75.51 ; Chronic pain syndrome G89.4 and Anxiety F41.9 [place] [address] [address] Jan, Decreased GFR R94.4 [place] [address] [address] Dec, Decreased GFR R94.4 [place] [address] [address] Dec, Decreased GFR R94.4 [place] [address] [address] Dec, Decreased GFR R94.4 [place] [address] [address] Dec, Decreased GFR R94.4 [place] [address] [address] Dec, Anxiety F41.9 and Bilateral low back candis n, with sciatica presence unspecified M54.5 [place] [address] [address] Dec, Thrombocytosis D47.3 ; Hyperlipidemia, u nspecified hyperlipidemia E78.5 ; Need for hepatitis C screening test Z11.59 and B12 deficiency E53.8 [place] [address] [address] Nov, Need for hepatitis C screening test Z11. 59 [place] [address] [address] Nov, Anxiety F41.9 and Bilateral low back candis n, with sciatica presence unspecified M54.5 [place] [address] [address] Oct, Bilateral low back pain, with sciatica p resence unspecified M54.5 ; Chronic prescription opiate use Z79.899 ; Anxiety F41.9 ; Essential hypertension I10 ; Hyperlipidemia, unspecified hyperlipidemia E78.5 ; Health care maintenance Z00.00 and Thrombocytosis D47.3 [place] [address] [address] Sep, [facility] [address] [address] Sep, [facility] [address] [address] Aug, [facility] [address] [address] Jul, B12 deficiency E53.8 [facility] [address] [address] Jul, [place] [address] [address] Jul, Essential hypertension I10 ; Chronic candis n syndrome G89.4 ; Anxiety F41.9 ; Screening for breast cancer Z12.39 ; Atherosclerosis of [place] coronary artery of [place] heart without angina pectoris I25.10 ; Major depressive disorder, recurrent episode, unspecified severity F33.9 ; Primary insomnia F51.01 and Allergic rhinitis J30.9 [facility] [address] [address] Jun, [facility] [address] [facility] [id number] [place] [address] Jun, Leg wound, right, initial en counter S81.801A and Encounter for immunization Z23 [facility] [address] [address] Jun, Open wound of right ear, unspecified ope n wound type, initial encounter S01.301A [facility] [address] [address] May, B12 deficiency E53.8 [place] [address] [address] May, [facility] [address] [address] May, [facility] [address] [address] May, Chronic pain syndrome G89.4 ; Chronic pr escription opiate use Z79.899 ; Allergic rhinitis J30.9 ; Essential hypertension I10 and Non-healing skin lesion L98.9 [facility] [address] [address] Apr, [facility] [address] [address] March, [facility] [address] [address] Feb, [facility] [address] [address] Feb, [place] [address] [address] Feb, Chronic pain syndrome G89.4 ; Anxiety F4 1.9 ; B12 deficiency E53.8 ; Allergic rhinitis J30.9 ; Fibromyalgia M79.7 ; Actinic keratosis L57.0 ; Skin rash R21 ; Open wound of right ear, unspecified open wound type, initial encounter S01.301A ; Subacromial bursitis, right M75.51 ; GERD (gastroesophageal reflux disease) K21.9 and Chronic obstructive pulmonary disease, unspecified COPD type J44.9 [place] [address] [address] Jan, [facility] [address] [address] Jan, Essential hypertension I10 [facility] [address] [address] Jan, [facility] [address] [address] Jan, [facility] [address] [address] Jan, [facility] [address] [address] Dec, [place] [address] [address] 16 Dec, 2015 Essential hypertension I10 [place] [address] [address] Dec, [place] [address] [address] Dec, B12 deficiency E53.8 and Essential hyper tension I10 [place] [address] [address] Dec, [place] [address] [address] Nov, Right shoulder pain M25.511 [place] [address] [address] Nov, Right shoulder pain M25.511 [place] [address] [address] Nov, Essential hypertension I10 and B12 defic iency E53.8 [place] [address] [address] Nov, Major depressive disorder, recurrent epi sode, unspecified severity F33.9 ; Anxiety F41.9 ; Chronic pain syndrome G89.4 ; Essential hypertension I10 ; Hyperlipidemia, unspecified hyperlipidemia E78.5 ; Chronic prescription opiate use Z79.899 ; Allergic rhinitis J30.9 ; B12 deficiency E53.8 and Right shoulder pain M25.511 [place] [address] [address] Oct, [place] [address] [address] Oct, [place] [address] [address] Sep, [place] [address] [address] Sep, [place] [address] [address] Aug, [facility] [address] [place] [id number] [place] [address] Aug, [facility] [address] [address] Aug, [facility] [address] [address] Aug, Other constipation K59.09 ; Hyperlipidem ia, unspecified hyperlipidemia E78.5 ; Essential hypertension I10 ; Primary insomnia F51.01 ; Anxiety F41.9 ; Chronic pain syndrome G89.4 ; Right shoulder pain M25.511 and Acute cystitis without hematuria N30.00 [facility] [address] [address] Jul, [facility] [address] [address] Jul, [facility] [address] [address] Jun, [facility] [address] [address] Jun, [facility] [address] [address] Jun, [facility] [address] [address] May, [facility] [address] [address] May, Other chronic pain 338.29 ; Hypertension 401.9 and Constipation due to opioid therapy 564.09 [facility] [address] [address] May, [facility] [address] [address] May, [facility] [address] [address] Apr, [facility] [address] [address] Apr, Unspecified essential hypertension 401.9 [facility] [address] [id number] [place] [address] 16 Apr, 2015 [facility] [address] [id number] [place] [address] Apr, [facility] [address] [id number] [place] [address] Apr, [facility] [address] [id number] [place] [address] Apr, [facility] [address] [id number] [place] [address] Apr, [facility] [address] [id number] [place] [address] Apr, [facility] [address] [id number] [place] [address] March, Unspecified essential hypertension 401.9 [facility] [address] [id number] [place] [address] March, [facility] [address] [id number] [place] [address] March, [facility] [address] [id number] [place] [address] 14 Feb, 2015 [facility] [address] [id number] [place] [address] Feb, [facility] [address] [id number] [place] [address] 23 Jan, 2015 [facility] [address] [id number] [place] [address] 23 Jan, 2015 [facility] [address] [id number] [place] [address] 17 Jan, 2015 [facility] [address] [id number] [place] [address] 17 Jan, 2015 [facility] [address] [id number] [place] [address] Jan, [facility] [address] [facility] [id number] [place] [address] Jan, [facility] [address] [facility] [id number] [place] [address] Jan, [facility] [address] [id number] [place] [address] Dec, [facility] [address] [id number] [place] [address] Dec, [facility] [address] [facility] [id number] [place] [address] Dec, [facility] [address] [id number] [place] [address] Nov, [facility] [address] [id number] [place] [address] Nov, [facility] [address] [id number] [place] [address] Oct, [facility] [address] [id number] [place] [address] Oct, [facility] [address] [id number] [place] [address] Oct, [facility] [address] [id number] [place] [address] Oct, [facility] [address] [id number] [place] [address] Oct, [facility] [address] [id number] [place] [address] Oct, [facility] [address] [id number] [place] [address] Oct, [facility] [address] [id number] [place] [address] Oct, [facility] [address] [id number] [place] [address] Sep, [facility] [address] [id number] [place] [address] Sep, [facility] [address] [facility] [id number] [place] [address] Sep, [facility] [address] [id number] [place] [address] Sep, [facility] [address] [id number] [place] [address] Sep, [facility] [address] [id number] [place] [address] Sep, [facility] [address] [id number] [place] [address] Aug, [facility] [address] [id number] [place] [address] Aug, [facility] [address] [id number] [place] [address] Aug, [facility] [address] [id number] [place] [address] Aug, [facility] [address] [id number] [place] [address] Aug, [facility] [address] [id number] [place] [address] Aug, [facility] [address] [id number] [place] [address] Aug, [facility] [address] [id number] [place] [address] Aug, [facility] [address] [id number] [place] [address] Aug, [facility] [address] [id number] [place] [address] Aug, [facility] [address] [id number] [place] [address] Jul, [facility] [address] [id number] [place] [address] Jul, [facility] [address] [id number] [place] [address] Jul, [facility] [address] [facility] [id number] [place] [address] Jul, [facility] [address] [facility] [id number] [place] [address] Jul, [facility] [address] [id number] [place] [address] Jul, [facility] [address] [facility] [id number] [place] [address] Jun, [facility] [address] [facility] [id number] [place] [address] Jun, [facility] [address] [id number] [place] [address] Jun, [facility] [address] [id number] [place] [address] Jun, [facility] [address] [id number] [place] [address] Jun, [facility] [address] [id number] [place] [address] Jun, [facility] [address] [id number] [place] [address] May, [facility] [address] [id number] [place] [address] May, [facility] [address] [id number] [place] [address] May, [facility] [address] [facility] [id number] [place] [address] May, [facility] [address] [id number] [place] [address] May, [facility] [address] [id number] [place] [address] Apr, [facility] [address] [id number] [place] [address] Apr, [facility] [address] [id number] [facility] [place] [address] Apr, [facility] [address] [facility] [id number] [facility] [place] [address] Apr, [facility] [address] [facility] [id number] [facility] [place] [address] March, [facility] [address] [id number] [facility] [place] [address] March, [facility] [address] [id number] [facility] [place] [address] March, [facility] [facility] [address] [id number] [place] [address] March, [facility] [address] [id number] [place] [address] March, [facility] [address] [id number] [place] [address] March, [facility] [address] [facility] [id number] [place] [address] Feb, [facility] [address] [id number] [place] [address] Feb, [facility] [address] [id number] [place] [address] Feb, [facility] [address] [id number] [place] [address] Feb, [facility] [address] [facility] [id number] [place] [address] Feb, [facility] [address] [id number] [place] [address] Feb, [facility] [address] [id number] [place] [address] Feb, [facility] [address] [id number] [place] [address] Feb, [facility] [address] [id number] [place] [address] Jan, [facility] [address] [facility] [id number] [place] [address] Jan, [facility] [address] [id number] [place] [address] Jan, [facility] [address] [id number] [place] [address] Jan, [facility] [address] [id number] [place] [address] Jan, [facility] [address] [facility] [id number] [place] [address] Jan, [facility] [address] [id number] [place] [address] Dec, [facility] [address] [id number] [place] [address] Dec, [facility] [address] [id number] [place] [address] Nov, [facility] [address] [id number] [place] [address] Nov, [facility] [address] [id number] [place] [address] Nov, [facility] [address] [id number] [place] [address] Nov, [facility] [address] [id number] [place] [address] Nov, [facility] [address] [id number] [place] [address] Nov, [facility] [address] [id number] [place] [address] Nov, [facility] [address] [id number] [place] [address] Nov, [facility] [address] [id number] [place] [address] Nov, [facility] [address] [id number] [place] [address] Nov, [facility] [address] [id number] [place] [address] Nov, [facility] [address] [id number] [place] [address] Nov, [facility] [address] [id number] [place] [address] Nov, [facility] [address] [id number] [place] [address] Nov, [facility] [address] [id number] [place] [address] Nov, [facility] [address] [id number] [place] [address] Oct, [facility] [id number] [place] [address] Oct, [facility] [address] [id number] [place] [address] Oct, [facility] [address] [id number] [place] [address] Oct, [facility] [address] [id number] [place] [address] Oct, [facility] [address] [id number] [place] [address] Oct, [facility] [address] [id number] [place] [address] Oct, [facility] [address] [id number] [place] [address] Oct, [facility] [address] [id number] [place] [address] Oct, [facility] [address] [id number] [place] [address] Aug, [facility] [address] [id number] [place] [address] Aug, IMMUNIZATIONS No Known Immunizations SOCIAL HISTORY [...] by Dr. Troy Michelle pain specialist in [place], [place] Medical History Chronic low back pain [...]
--- OUTSIDE RECORDS SUMMARY | 2020-06-19 02:06 | XMS REPORT ---
Author Author Mahsa DIOP Organization [facility] Address [address] [place] [address] Care Team Providers Care Forensic Audit Expert Name Role Phone SAUL DIOP Unavailable PROBLEMS Type Condition ICD9-CM Code XZG50-ZN Code Onset Dates Condition S tatus SNOMED Code Problem Chronic pain syndrome G89.4 Active 712873921 Problem Other constipation K59.09 Active 1 [id number] Problem Anxiety F41.9 Active 08992423 Problem Primary insomnia F51.01 Active 193 653457 Problem Atherosclerosis of [place] co ronary artery of [place] heart without angina pectoris I25.10 Active 7732117041457 Problem Essential hypertension I10 Active 87340105 Problem Hyperlipidemia, unspecified hyperlipidemia E78.5 Active 16729289 Problem Major depressive disorder, recurrent episode, un specified severity F33.9 Active 10959999 Problem Allergic rhinitis J30.9 Active 61 819240 Problem Fibromyalgia M79.7 Active 3990735 7 Problem GERD (gastroesophageal reflux disease) K21.9 Active 338201597 Problem Degenerative disc disease, thoracic M51.34 Active 46547200 Problem Bilateral low back pain, with sciatica presence unspecifie d M54.5 Active 318690772 Problem Moderate episode of recurrent major depressive disorder F33.1 Active 832021532 Problem B12 deficiency E53.8 Active 33530 4004 Problem Chronic obstructive pulmonary disease, unspecified COPD ty pe J44.9 Active 81277412 Problem CKD (chronic kidney disease) stage 3, GFR 30-59 ml/min N18.3 Active 054141514 Problem Cannabis abuse F12.10 Active 82852 009 Problem Degenerative disc disease, cervical M50.30 Active 88752161 ALLERGIES No Information ENCOUNTERS Encounter Location Date Diagnosis [facility] [id number] [place] [address] Nov, [facility] [address] [id number] [place] [address] Oct, Moderate episode of recurrent major depr essive disorder F33.1 ; Chronic obstructive pulmonary disease, unspecified COPD type J44.9 ; CKD (chronic kidney disease) stage 3, GFR 30-59 ml/min N18.3 ; Essential hypertension I10 and Possible exposure to STD Z20.2 [place] [address] [address] Oct, Essential hypertension I10 [facility] [address] [address] Oct, [facility] [address] [address] Sep, Essential hypertension I10 [place] [address] [address] Sep, [place] [address] [address] Sep, [facility] [address] [address] Sep, [place] [address] [address] Aug, Essential hypertension I10 [place] [address] [address] Aug, Essential hypertension I10 [place] [address] [address] Jul, Allergic rhinitis J30.9 ; CKD (chronic k idney disease) stage 3, GFR 30-59 ml/min N18.3 ; Essential hypertension I10 and Moderate episode of recurrent major depressive disorder F33.1 [place] [address] [address] Jul, Elevated platelet count R79.89 ; B12 def iciency E53.8 ; Hyperlipidemia, unspecified hyperlipidemia E78.5 and CKD (chronic kidney disease) stage 3, GFR 30-59 ml/min N18.3 [place] [address] [address] Apr, B12 deficiency E53.8 [place] [address] [address] Jan, Periumbilical hernia K42.9 ; CKD (chroni c kidney disease) stage 3, GFR 30-59 ml/min N18.3 ; Essential hypertension I10 ; GERD (gastroesophageal reflux disease) K21.9 ; Hyperlipidemia, unspecified hyperlipidemia E78.5 and Major depressive disorder, recurrent episode, unspecified severity F33.9 [place] [address] [address] 12 Dec, 2018 Anxiety F41.9 [place] [address] [address] Nov, Elevated platelet count R79.89 [place] [address] [address] 15 Nov, 2018 [place] [address] [address] Nov, Elevated platelet count R79.89 [place] [address] [address] Nov, Anxiety F41.9 [place] [address] [address] Nov, Bilateral low back pain, with sciatica p resence unspecified M54.5 ; Cervicalgia M54.2 ; Degenerative disc disease, cervical M50.30 and Degenerative disc disease, thoracic M51.34 [place] [address] [address] Nov, Chronic pain syndrome G89.4 and Bilatera l low back pain, with sciatica presence unspecified M54.5 [place] [address] [address] Oct, Umbilical hernia without obstruction and without gangrene K42.9 [place] [address] [address] Oct, Chronic pain syndrome G89.4 [place] [address] [address] 13 Oct, 2018 Chronic pain syndrome G89.4 and Anxiety F41.[address] [address] 12 Oct, 2018 Elevated platelet count R79.89 [place] [address] [address] Oct, CKD (chronic kidney disease) stage 3, GF R 30-59 ml/min N18.3 ; Other chest pain R07.89 ; Acute midline thoracic back pain M54.6 ; Essential hypertension I10 and History of osteoporosis Z87.[address] [address] Sep, Chronic pain syndrome G89.[address] [address] 16 Sep, [address] [address] Sep, Anxiety F41.9 and Chronic pain syndrome G89.[address] [address] 18 Aug, 2018 Chronic pain syndrome G89.4 and Anxiety F41.[address] [address] Aug, [address] [address] Aug, Cannabis abuse F12.10 and Controlled sub stance agreement terminated Z91.[address] [address] Jul, Chronic pain syndrome G89.4 ; Bilateral low back pain, with sciatica presence unspecified M54.5 ; Chronic prescription opiate use Z79.899 ; Essential hypertension I10 ; Hyperlipidemia, unspecified hyperlipidemia E78.5 ; CKD (chronic kidney disease) stage 3, GFR 30-59 ml/min N18.3 and Allergic rhinitis J30.9 [place] [address] [address] Jul, Chronic pain syndrome G89.4 and Anxiety F41.9 [place] [address] [address] Jul, Screening for breast cancer Z12.31 and Casandra castilol depressive disorder, recurrent episode, unspecified severity F33.9 [place] [address] [address] Jun, Chronic pain syndrome G89.4 and Anxiety F41.9 [place] [address] [address] May, Chronic pain syndrome G89.4 and Anxiety F41.9 [place] [address] [address] Apr, Anxiety F41.[address] [address] Apr, Chronic prescription opiate use Z79.899 ; Chronic pain syndrome G89.4 ; Essential hypertension I10 ; Allergic rhinitis J30.9 and CKD (chronic kidney disease) stage 3, GFR 30-59 ml/min N18.3 [place] [address] [address] Apr, [place] [address] [address] March, Anxiety F41.9 and Chronic pain syndrome G89.4 [place] [address] [address] March, CKD (chronic kidney disease) stage 3, GF R 30-59 ml/min N18.3 ; B12 deficiency E53.8 and Hyperlipidemia, unspecified hyperlipidemia E78.5 [place] [address] [address] March, Anxiety F41.9 and Chronic pain syndrome G89.[address] [address] Feb, Anxiety F41.9 and Chronic pain syndrome G89.4 [place] [address] [address] Jan, B12 deficiency E53.8 [place] [address] [address] Jan, [place] [address] [address] Jan, Anxiety F41.9 ; Chronic pain syndrome G8 9.4 and Essential hypertension I10 [place] [address] [address] Jan, CKD (chronic kidney disease) stage 3, [...] Subacromial bursitis of right shoulder joint M75.51 [place] [address] [address] Dec, Essential hypertension I10 [place] [address] [address] Dec, Chronic pain syndrome G89.4 [place] [address] [address] Dec, Chronic pain syndrome G89.4 [place] [address] [address] Nov, [place] [address] [address] Nov, Chronic pain syndrome G89.4 and Anxiety F41.9 [place] [address] [address] Oct, Chronic pain syndrome G89.4 ; Other cons tipation K59.09 and Chronic prescription opiate use Z79.899 [place] [address] [address] 08 Oct, 2017 Chronic pain syndrome G89.4 and Anxiety F41.9 [place] [address] [address] Sep, Essential hypertension I10 [place] [address] [address] 16 Sep, 2017 Chronic pain syndrome G89.4 and Anxiety F41.9 [place] [address] [address] Aug, Chronic pain syndrome G89.4 and Anxiety F41.9 [place] [address] [address] Jul, Essential hypertension I10 [address] [address] 22 Jul, 2017 Chronic obstructive pulmonary disease, u nspecified COPD type J44.9 [place] [address] [address] Jul, Chronic pain syndrome G89.4 and Anxiety F41.9 [place] [address] [address] 13 Jul, 2017 Chronic pain syndrome G89.4 ; Essential hypertension I10 ; Fibromyalgia M79.7 ; CKD (chronic kidney disease) stage 3, GFR 30-59 ml/min N18.3 ; Subacromial bursitis, right M75.51 and Goals of care, co unseling/discussion Z71.89 [place] [address] [address] Jun, Chronic pain syndrome G89.4 and Anxiety F41.9 [place] [address] [address] May, Chronic pain syndrome G89.4 and Anxiety F41.9 [place] [address] [address] Apr, Chronic pain syndrome G89.4 and Anxiety F41.9 [place] [address] [address] Apr, Drug induced constipation K59.03 ; Chron ic pain syndrome G89.4 and CKD (chronic kidney disease) stage 3, GFR 30-59 ml/min N18.3 [place] [address] [address] Apr, Chronic pain syndrome G89.4 and Anxiety F41.9 [place] [address] [address] March, Chronic pain syndrome G89.4 and Anxiety F41.9 [place] [address] [address] March, Decreased GFR R94.4 [place] [address] [address] Feb, [place] [address] [address] Feb, Chronic pain syndrome G89.4 and Anxiety F41.9 [place] [address] [address] Jan, Decreased GFR R94.4 [place] [address] [address] Jan, Decreased GFR R94.4 [place] [address] [address] Jan, Allergic rhinitis J30.9 ; Essential hype rtension I10 ; Major depressive disorder, recurrent episode, unspecified severity F33.9 and Primary insomnia F51.01 [place] [address] [address] Jan, Acute right-sided thoracic back pain M54 .6 ; Subacromial bursitis of right shoulder joint M75.51 ; Chronic pain syndrome G89.4 and Anxiety F41.9 [place] [address] [address] Jan, Decreased GFR R94.4 [place] [address] [address] Dec, Decreased GFR R94.4 [place] [address] [address] Dec, Decreased GFR R94.4 [place] [address] [address] Dec, Decreased GFR R94.4 [place] [address] [address] Dec, Decreased GFR R94.4 [place] [address] [address] Dec, Anxiety F41.9 and Bilateral low back candis n, with sciatica presence unspecified M54.5 [place] [address] [address] Dec, Thrombocytosis D47.3 ; Hyperlipidemia, u nspecified hyperlipidemia E78.5 ; Need for hepatitis C screening test Z11.59 and B12 deficiency E53.8 [place] [address] [address] Nov, Need for hepatitis C screening test Z11. 59 [place] [address] [address] Nov, Anxiety F41.9 and Bilateral low back candis n, with sciatica presence unspecified M54.5 [place] [address] [address] Oct, Bilateral low back pain, with sciatica p resence unspecified M54.5 ; Chronic prescription opiate use Z79.899 ; Anxiety F41.9 ; Essential hypertension I10 ; Hyperlipidemia, unspecified hyperlipidemia E78.5 ; Health care maintenance Z00.00 and Thrombocytosis D47.3 [place] [address] [address] Sep, [facility] [address] [address] Sep, [facility] [address] [address] Aug, [facility] [address] [address] Jul, B12 deficiency E53.8 [facility] [address] [address] Jul, [place] [address] [address] Jul, Essential hypertension I10 ; Chronic candis n syndrome G89.4 ; Anxiety F41.9 ; Screening for breast cancer Z12.39 ; Atherosclerosis of [place] coronary artery of [place] heart without angina pectoris I25.10 ; Major depressive disorder, recurrent episode, unspecified severity F33.9 ; Primary insomnia F51.01 and Allergic rhinitis J30.9 [facility] [address] [address] Jun, [facility] [address] [facility] [id number] [address] [place] [address] Jun, Leg wound, right, initial en counter S81.801A and Encounter for immunization Z23 [facility] [address] [address] Jun, Open wound of right ear, unspecified ope n wound type, initial encounter S01.301A [facility] [address] [address] May, B12 deficiency E53.8 [facility] [address] [address] May, [facility] [address] [address] May, [facility] [address] [address] May, Chronic pain syndrome G89.4 ; Chronic pr escription opiate use Z79.899 ; Allergic rhinitis J30.9 ; Essential hypertension I10 and Non-healing skin lesion L98.9 [facility] [address] [address] Apr, [facility] [address] [address] March, [place] [address] [address] Feb, [place] [address] [address] Feb, [place] [address] [address] Feb, Chronic pain syndrome G89.4 ; Anxiety F4 1.9 ; B12 deficiency E53.8 ; Allergic rhinitis J30.9 ; Fibromyalgia M79.7 ; Actinic keratosis L57.0 ; Skin rash R21 ; Open wound of right ear, unspecified open wound type, initial encounter S01.301A ; Subacromial bursitis, right M75.51 ; GERD (gastroesophageal reflux disease) K21.9 and Chronic obstructive pulmonary disease, unspecified COPD type J44.9 [place] [address] [address] Jan, [place] [address] [address] Jan, Essential hypertension I10 [facility] [address] [address] Jan, [place] [address] [address] Jan, [place] [address] [address] Jan, [facility] [address] [address] Dec, [place] [address] [address] 16 Dec, 2015 Essential hypertension I10 [place] [address] [address] Dec, [place] [address] [address] Dec, B12 deficiency E53.8 and Essential hyper tension I10 [place] [address] [address] Dec, [place] [address] [address] Nov, Right shoulder pain M25.511 [place] [address] [address] Nov, Right shoulder pain M25.511 [place] [address] [address] Nov, Essential hypertension I10 and B12 defic iency E53.8 [place] [address] [address] Nov, Major depressive disorder, recurrent epi sode, unspecified severity F33.9 ; Anxiety F41.9 ; Chronic pain syndrome G89.4 ; Essential hypertension I10 ; Hyperlipidemia, unspecified hyperlipidemia E78.5 ; Chronic prescription opiate use Z79.899 ; Allergic rhinitis J30.9 ; B12 deficiency E53.8 and Right shoulder pain M25.511 [place] [address] [address] Oct, [place] [address] [address] 14 Oct, 2015 [place] [address] [address] Sep, [place] [address] [address] Sep, [place] [address] [address] Aug, [facility] [address] [address] Aug, [facility] [address] [address] Aug, [facility] [address] [address] Aug, Other constipation K59.09 ; Hyperlipidem ia, unspecified hyperlipidemia E78.5 ; Essential hypertension I10 ; Primary insomnia F51.01 ; Anxiety F41.9 ; Chronic pain syndrome G89.4 ; Right shoulder pain M25.511 and Acute cystitis without hematuria N30.00 [facility] [address] [address] Jul, [facility] [address] [address] Jul, [facility] [address] [address] Jun, [facility] [address] [address] Jun, [facility] [address] [address] Jun, [facility] [address] [address] May, [facility] [address] [address] May, Other chronic pain 338.29 ; Hypertension 401.9 and Constipation due to opioid therapy 564.09 [facility] [address] [address] May, [facility] [address] [address] May, [facility] [address] [address] Apr, [facility] [address] [address] Apr, Unspecified essential hypertension 401.9 [facility] [address] [facility] [id number] [place] [address] 16 Apr, 2015 [facility] [address] [facility] [id number] [place] [address] Apr, [facility] [address] [id number] [place] [address] Apr, [facility] [address] [id number] [place] [address] Apr, [facility] [address] [id number] [place] [address] Apr, [facility] [address] [id number] [place] [address] Apr, [facility] [address] [id number] [place] [address] March, Unspecified essential hypertension 401.9 [facility] [address] [id number] [place] [address] March, [facility] [address] [id number] [place] [address] March, [facility] [address] [id number] [place] [address] 14 Feb, 2015 [facility] [address] [id number] [place] [address] Feb, [facility] [address] [id number] [place] [address] 23 Jan, 2015 [facility] [address] [facility] [id number] [place] [address] 23 Jan, 2015 [facility] [address] [id number] [place] [address] 17 Jan, 2015 [facility] [address] [id number] [place] [address] 17 Jan, 2015 [facility] [address] [id number] [place] [address] 13 Jan, 2015 [facility] [address] [id number] [place] [address] Jan, 2014 [facility] [address] [id number] [place] [address] Jan, 2014 [facility] [address] [id number] [place] [address] 16 Dec, 2014 [facility] [address] [id number] [place] [address] 16 Dec, 2014 [facility] [address] [id number] [place] [address] Dec, [facility] [address] [id number] [place] [address] Nov, [facility] [address] [id number] [place] [address] Nov, [facility] [address] [id number] [place] [address] Oct, [facility] [address] [id number] [place] [address] Oct, [facility] [address] [id number] [place] [address] Oct, [facility] [address] [id number] [place] [address] Oct, [facility] [address] [id number] [place] [address] 08 Oct, 2014 [facility] [address] [id number] [place] [address] 08 Oct, 2014 [facility] [address] [id number] [place] [address] Oct, [facility] [address] [id number] [place] [address] Oct, [facility] [address] [id number] [place] [address] Sep, [facility] [address] [id number] [place] [address] Sep, [facility] [address] [facility] [id number] [place] [address] Sep, [facility] [address] [facility] [id number] [place] [address] Sep, [facility] [address] [id number] [place] [address] Sep, [facility] [address] [id number] [place] [address] Sep, [facility] [address] [facility] [id number] [place] [address] Aug, [facility] [address] [id number] [place] [address] Aug, [facility] [address] [id number] [place] [address] Aug, [facility] [address] [id number] [place] [address] Aug, [facility] [address] [id number] [place] [address] Aug, [facility] [address] [id number] [place] [address] Aug, [facility] [address] [id number] [place] [address] Aug, [facility] [address] [id number] [place] [address] Aug, [facility] [address] [facility] [id number] [place] [address] Aug, [facility] [address] [id number] [place] [address] Aug, [facility] [address] [id number] [place] [address] Jul, [facility] [address] [id number] [place] [address] Jul, [facility] [address] [id number] [facility] [place] [address] Jul, [facility] [address] [facility] [id number] [place] [address] Jul, [facility] [address] [facility] [id number] [place] [address] Jul, [facility] [address] [id number] [place] [address] Jul, [facility] [address] [facility] [id number] [place] [address] Jun, [facility] [address] [facility] [id number] [place] [address] Jun, [facility] [address] [id number] [place] [address] Jun, [facility] [address] [id number] [place] [address] Jun, [facility] [address] [id number] [place] [address] Jun, [facility] [address] [facility] [id number] [place] [address] Jun, [facility] [address] [id number] [place] [address] May, [facility] [address] [id number] [place] [address] May, [facility] [address] [facility] [id number] [place] [address] May, [facility] [address] [facility] [id number] [place] [address] May, [facility] [address] [id number] [place] [address] May, [facility] [address] [id number] [place] [address] Apr, [facility] [address] [id number] [place] [address] Apr, [facility] [address] [id number] [place] [address] Apr, [facility] [address] [facility] [id number] [place] [address] Apr, [facility] [address] [id number] [place] [address] March, [facility] [address] [id number] [place] [address] March, [facility] [address] [facility] [id number] [place] [address] March, [facility] [address] [id number] [place] [address] March, [facility] [address] [id number] [place] [address] March, [facility] [address] [id number] [place] [address] March, [facility] [address] [id number] [place] [address] Feb, [facility] [address] [id number] [place] [address] Feb, [facility] [address] [id number] [place] [address] Feb, [facility] [address] [id number] [place] [address] Feb, [facility] [address] [id number] [place] [address] Feb, [facility] [address] [id number] [place] [address] Feb, [facility] [address] [id number] [place] [address] Feb, [facility] [address] [id number] [place] [address] Feb, [facility] [address] [id number] [facility] [place] [address] Jan, [facility] [address] [facility] [id number] [facility] [address] Jan, [facility] [address] [facility] [id number] [place] [address] Jan, [facility] [address] [id number] [place] [address] Jan, [facility] [address] [facility] [id number] [place] [address] Jan, [facility] [address] [facility] [id number] [place] [address] Jan, [facility] [address] [id number] [place] [address] Dec, [facility] [address] [id number] [place] [address] Dec, [facility] [address] [id number] [place] [address] Nov, [facility] [address] [id number] [place] [address] Nov, [facility] [address] [id number] [place] [address] Nov, [facility] [address] [id number] [place] [address] Nov, [facility] [address] [id number] [place] [address] Nov, [facility] [address] [facility] [id number] [place] [address] Nov, [facility] [address] [id number] [place] [address] Nov, [facility] [address] [id number] [place] [address] Nov, [facility] [address] [id number] [place] [address] Nov, [facility] [address] [id number] [place] [address] Nov, [facility] [address] [id number] [place] [address] Nov, [facility] [address] [id number] [place] [address] Nov, [facility] [address] [id number] [place] [address] Nov, [facility] [address] [id number] [place] [address] Nov, [facility] [address] [id number] [place] [address] Nov, [facility] [address] [id number] [place] [address] Oct, [facility] [id number] [place] [address] Oct, [facility] [address] [id number] [place] [address] Oct, [facility] [address] [id number] [place] [address] Oct, [facility] [address] [id number] [place] [address] Oct, [facility] [address] [id number] [place] [address] Oct, [facility] [address] [id number] [place] [address] Oct, [facility] [address] [id number] [place] [address] Oct, [facility] [id number] [place] [address] Oct, [facility] [address] [id number] [place] [address] Aug, [facility] [address] [id number] [place] [address] Aug, IMMUNIZATIONS No Known Immunizations SOCIAL HISTORY Never Assessed REASON FOR VISIT PLAN OF CARE VITAL SIGNS MEDICATIONS Unknown Medications RESULTS No Results PROCEDURES Procedure Date Ordered Result Body Site PSYTX PT&/FAMILY 30 MINUTES February 26, 2014 INSTRUCTIONS MEDICATIONS ADMINISTERED No Known Medications MEDICAL (GENERAL) HISTORY Type Description Date Medical History hypertension Medical History asthma Medical History Arthritis Medical History Hypoglycemia Medical History Heart Cath 11/05/2013 Medical History herniated disc--Seen by Dr. Troy Michelle pain specialist in [place], [place] Medical History Chronic low back pain [...]
--- OUTSIDE RECORDS SUMMARY | 2020-06-19 02:06 | XMS REPORT ---
Author Author Mahsa ROBERTS Organization [facility] Address [address] [place] [address] Care Team Providers Care Django Developer Name Role Phone ASHVIN ROBERTS Unavailable PROBLEMS Type Condition ICD9-CM Code CCY31-FZ Code Onset Dates Condition S tatus SNOMED Code Problem Chronic pain syndrome G89.4 Active 881751746 Problem Other constipation K59.09 Active 1 [id number] Problem Anxiety F41.9 Active 03425641 Problem Primary insomnia F51.01 Active 193 836345 Problem Atherosclerosis of [place] co ronary artery of [place] heart without angina pectoris I25.10 Active [id number] Problem Essential hypertension I10 Active 00850139 Problem Hyperlipidemia, unspecified hyperlipidemia E78.5 Active 41182992 Problem Major depressive disorder, recurrent episode, un specified severity F33.9 Active 92908472 Problem Allergic rhinitis J30.9 Active 61 859819 Problem Fibromyalgia M79.7 Active 5520386 7 Problem GERD (gastroesophageal reflux disease) K21.9 Active 092776168 Problem Degenerative disc disease, thoracic M51.34 Active 92178562 Problem Bilateral low back pain, with sciatica presence unspecifie d M54.5 Active 763082812 Problem Moderate episode of recurrent major depressive disorder F33.1 Active 777663799 Problem B12 deficiency E53.8 Active 06279 4004 Problem Chronic obstructive pulmonary disease, unspecified COPD ty pe J44.9 Active 22326964 Problem CKD (chronic kidney disease) stage 3, GFR 30-59 ml/min N18.3 Active 602723222 Problem Cannabis abuse F12.10 Active 85309 009 Problem Degenerative disc disease, cervical M50.30 Active 53620619 ALLERGIES Substance Reaction Event Type Date Status Lyrica throat swelling Drug Allergy Jan, Active Flagyl throat swelling Drug Allergy Jan, Active Lisinopril 20 Mg Tablet Headache Non Drug Allergy Jan, Active Motrin stomach upset Drug Allergy Jan, Active ENCOUNTERS Encounter Location Date Diagnosis [place] [address] [address] Nov, [place] [address] [address] Oct, Moderate episode of recurrent major depr essive disorder F33.1 ; Chronic obstructive pulmonary disease, unspecified COPD type J44.9 ; CKD (chronic kidney disease) stage 3, GFR 30-59 ml/min N18.3 ; Essential hypertension I10 and Possible exposure to STD Z20.2 [place] [address] [address] Oct, Essential hypertension I10 [place] [address] [address] Oct, [place] [address] [address] Sep, Essential hypertension I10 [place] [address] [address] Sep, [place] [address] [address] Sep, [place] [address] [address] Sep, [place] [address] [address] Aug, Essential hypertension I10 [place] [address] [address] Aug, Essential hypertension I10 [place] [address] [address] Jul, Allergic rhinitis J30.9 ; CKD (chronic k idney disease) stage 3, GFR 30-59 ml/min N18.3 ; Essential hypertension I10 and Moderate episode of recurrent major depressive disorder F33.1 [place] [address] [address] 11 Jul, 2019 Elevated platelet count R79.89 ; B12 def iciency E53.8 ; Hyperlipidemia, unspecified hyperlipidemia E78.5 and CKD (chronic kidney disease) stage 3, GFR 30-59 ml/min N18.3 [place] [address] [place] [address] 04 Apr, 2019 B12 deficiency E53.8 [place] [address] [address] Jan, Periumbilical hernia K42.9 ; CKD (chroni c kidney disease) stage 3, GFR 30-59 ml/min N18.3 ; Essential hypertension I10 ; GERD (gastroesophageal reflux disease) K21.9 ; Hyperlipidemia, unspecified hyperlipidemia E78.5 and Major depressive disorder, recurrent episode, unspecified severity F33.9 [place] [address] [address] 12 Dec, 2018 Anxiety F41.9 [place] [address] [address] 17 Nov, 2018 Elevated platelet count R79.89 [place] [address] [address] 15 Nov, 2018 [place] [address] [address] Nov, Elevated platelet count R79.89 [place] [address] [address] Nov, Anxiety F41.9 [place] [address] [address] Nov, Bilateral low back pain, with sciatica p resence unspecified M54.5 ; Cervicalgia M54.2 ; Degenerative disc disease, cervical M50.30 and Degenerative disc disease, thoracic M51.34 [place] [address] [address] Nov, Chronic pain syndrome G89.4 and Bilatera l low back pain, with sciatica presence unspecified M54.5 [place] [address] [address] Oct, Umbilical hernia without obstruction and without gangrene K42.9 [place] [address] [address] Oct, Chronic pain syndrome G89.4 [place] [address] [address] Oct, Chronic pain syndrome G89.4 and Anxiety F41.9 [place] [address] [address] Oct, Elevated platelet count R79.89 [place] [address] [address] Oct, CKD (chronic kidney disease) stage 3, GF R 30-59 ml/min N18.3 ; Other chest pain R07.89 ; Acute midline thoracic back pain M54.6 ; Essential hypertension I10 and History of osteoporosis Z87.39 [place] [address] [address] Sep, Chronic pain syndrome G89.4 [place] [address] [address] Sep, [address] [address] Sep, Anxiety F41.9 and Chronic pain syndrome G89.4 [place] [address] [address] Aug, Chronic pain syndrome G89.4 and Anxiety F41.9 [place] [address] [address] Aug, [address] [address] Aug, Cannabis abuse F12.10 and Controlled sub stance agreement terminated Z91.[address] [address] Jul, Chronic pain syndrome G89.4 ; Bilateral low back pain, with sciatica presence unspecified M54.5 ; Chronic prescription opiate use Z79.899 ; Essential hypertension I10 ; Hyperlipidemia, unspecified hyperlipidemia E78.5 ; CKD (chronic kidney disease) stage 3, GFR 30-59 ml/min N18.3 and Allergic rhinitis J30.9 [place] [address] [address] Jul, Chronic pain syndrome G89.4 and Anxiety F41.9 [place] [address] [address] Jul, Screening for breast cancer Z12.31 and Casandra castillo depressive disorder, recurrent episode, unspecified severity F33.9 [place] [address] [address] Jun, Chronic pain syndrome G89.4 and Anxiety F41.9 [place] [address] [address] May, Chronic pain syndrome G89.4 and Anxiety F41.9 [place] [address] [address] Apr, Anxiety F41.9 [place] [address] [address] Apr, Chronic prescription opiate use Z79.899 ; Chronic pain syndrome G89.4 ; Essential hypertension I10 ; Allergic rhinitis J30.9 and CKD (chronic kidney disease) stage 3, GFR 30-59 ml/min N18.3 [place] [address] [address] Apr, [place] [address] [address] March, Anxiety F41.9 and Chronic pain syndrome G89.4 [place] [address] [address] March, CKD (chronic kidney disease) stage 3, GF R 30-59 ml/min N18.3 ; B12 deficiency E53.8 and Hyperlipidemia, unspecified hyperlipidemia E78.5 [place] [address] [address] March, Anxiety F41.9 and Chronic pain syndrome G89.4 [place] [address] [address] Feb, Anxiety F41.9 and Chronic pain syndrome G89.4 [place] [address] [address] Jan, B12 deficiency E53.8 [place] [address] [address] Jan, [place] [address] [address] Jan, Anxiety F41.9 ; Chronic pain syndrome G8 9.4 and Essential hypertension I10 [address] [address] Jan, CKD (chronic kidney disease) stage 3, [...] Subacromial bursitis of right shoulder joint M75.51 [place] [address] [address] Dec, Essential hypertension I10 [place] [address] [address] 15 Dec, 2017 Chronic pain syndrome G89.[address] [address] Dec, Chronic pain syndrome G89.4 [place] [address] [address] Nov, [place] [address] [address] Nov, Chronic pain syndrome G89.4 and Anxiety F41.9 [place] [address] [address] Oct, Chronic pain syndrome G89.4 ; Other cons tipation K59.09 and Chronic prescription opiate use Z79.899 [place] [address] [address] Oct, Chronic pain syndrome G89.4 and Anxiety F41.9 [place] [address] [address] Sep, Essential hypertension I10 [address] [address] Sep, Chronic pain syndrome G89.4 and Anxiety F41.9 [place] [address] [address] Aug, Chronic pain syndrome G89.4 and Anxiety F41.9 [place] [address] [address] Jul, Essential hypertension I10 [address] [address] 22 Jul, 2017 Chronic obstructive pulmonary disease, u nspecified COPD type J44.9 [place] [address] [address] Jul, Chronic pain syndrome G89.4 and Anxiety F41.9 [place] [address] [address] 13 Jul, 2017 Chronic pain syndrome G89.4 ; Essential hypertension I10 ; Fibromyalgia M79.7 ; CKD (chronic kidney disease) stage 3, GFR 30-59 ml/min N18.3 ; Subacromial bursitis, right M75.51 and Goals of care, co unseling/discussion Z71.89 [place] [address] [address] Jun, Chronic pain syndrome G89.4 and Anxiety F41.9 [place] [address] [address] May, Chronic pain syndrome G89.4 and Anxiety F41.9 [place] [address] [address] Apr, Chronic pain syndrome G89.4 and Anxiety F41.9 [place] [address] [address] Apr, Drug induced constipation K59.03 ; Chron ic pain syndrome G89.4 and CKD (chronic kidney disease) stage 3, GFR 30-59 ml/min N18.3 [place] [address] [address] Apr, Chronic pain syndrome G89.4 and Anxiety F41.9 [place] [address] [address] March, Chronic pain syndrome G89.4 and Anxiety F41.9 [place] [address] [address] March, Decreased GFR R94.4 [place] [address] [address] Feb, [place] [address] [address] Feb, Chronic pain syndrome G89.4 and Anxiety F41.9 [place] [address] [address] Jan, Decreased GFR R94.4 [place] [address] [address] Jan, Decreased GFR R94.4 [place] [address] [address] Jan, Allergic rhinitis J30.9 ; Essential hype rtension I10 ; Major depressive disorder, recurrent episode, unspecified severity F33.9 and Primary insomnia F51.01 [place] [address] [address] Jan, Acute right-sided thoracic back pain M54 .6 ; Subacromial bursitis of right shoulder joint M75.51 ; Chronic pain syndrome G89.4 and Anxiety F41.9 [place] [address] [address] Jan, Decreased GFR R94.4 [place] [address] [address] Dec, Decreased GFR R94.4 [place] [address] [address] Dec, Decreased GFR R94.4 [place] [address] [address] Dec, Decreased GFR R94.4 [place] [address] [address] Dec, Decreased GFR R94.4 [place] [address] [address] Dec, Anxiety F41.9 and Bilateral low back candis n, with sciatica presence unspecified M54.5 [place] [address] [address] Dec, Thrombocytosis D47.3 ; Hyperlipidemia, u nspecified hyperlipidemia E78.5 ; Need for hepatitis C screening test Z11.59 and B12 deficiency E53.8 [place] [address] [address] Nov, Need for hepatitis C screening test Z11. 59 [place] [address] [address] Nov, Anxiety F41.9 and Bilateral low back candis n, with sciatica presence unspecified M54.5 [place] [address] [address] Oct, Bilateral low back pain, with sciatica p resence unspecified M54.5 ; Chronic prescription opiate use Z79.899 ; Anxiety F41.9 ; Essential hypertension I10 ; Hyperlipidemia, unspecified hyperlipidemia E78.5 ; Health care maintenance Z00.00 and Thrombocytosis D47.3 [place] [address] [address] Sep, [place] [address] [address] Sep, [place] [address] [address] Aug, [place] [address] [address] Jul, B12 deficiency E53.8 [place] [address] [address] Jul, [place] [address] [address] Jul, Essential hypertension I10 ; Chronic candis n syndrome G89.4 ; Anxiety F41.9 ; Screening for breast cancer Z12.39 ; Atherosclerosis of [place] coronary artery of [place] heart without angina pectoris I25.10 ; Major depressive disorder, recurrent episode, unspecified severity F33.9 ; Primary insomnia F51.01 and Allergic rhinitis J30.9 [place] [address] [address] Jun, [facility] [address] [facility] [id number] [address] [place] [address] Jun, Leg wound, right, initial en counter S81.801A and Encounter for immunization Z23 [address] [address] Jun, Open wound of right ear, unspecified ope n wound type, initial encounter S01.301A [facility] [address] [address] May, B12 deficiency E53.[address] [address] May, [place] [address] [address] May, [address] [address] May, Chronic pain syndrome G89.4 ; Chronic pr escription opiate use Z79.899 ; Allergic rhinitis J30.9 ; Essential hypertension I10 and Non-healing skin lesion L98.[address] [address] Apr, [address] [address] March, [address] [address] Feb, [address] [address] Feb, [address] [address] Feb, Chronic pain syndrome G89.4 ; Anxiety F4 1.9 ; B12 deficiency E53.8 ; Allergic rhinitis J30.9 ; Fibromyalgia M79.7 ; Actinic keratosis L57.0 ; Skin rash R21 ; Open wound of right ear, unspecified open wound type, initial encounter S01.301A ; Subacromial bursitis, right M75.51 ; GERD (gastroesophageal reflux disease) K21.9 and Chronic obstructive pulmonary disease, unspecified COPD type J44.[address] [address] Jan, [address] [address] Jan, Essential hypertension I10 [address] [address] Jan, [address] [address] Jan, [address] [place] [address] Jan, [place] [address] [address] Dec, [place] [address] [address] Dec, Essential hypertension I10 [place] [address] [address] Dec, [place] [address] [address] Dec, B12 deficiency E53.8 and Essential hyper tension I10 [place] [address] [address] Dec, [place] [address] [address] Nov, Right shoulder pain M25.511 [place] [address] [address] Nov, Right shoulder pain M25.511 [place] [address] [address] Nov, Essential hypertension I10 and B12 defic iency E53.8 [place] [address] [address] Nov, Major depressive disorder, recurrent epi sode, unspecified severity F33.9 ; Anxiety F41.9 ; Chronic pain syndrome G89.4 ; Essential hypertension I10 ; Hyperlipidemia, unspecified hyperlipidemia E78.5 ; Chronic prescription opiate use Z79.899 ; Allergic rhinitis J30.9 ; B12 deficiency E53.8 and Right shoulder pain M25.511 [place] [address] [address] Oct, [place] [address] [address] 14 Oct, 2015 [place] [address] [address] Sep, [facility] [address] [address] Sep, [facility] [address] [address] Aug, [facility] [address] [address] Aug, [facility] [address] [address] Aug, [facility] [address] [address] Aug, Other constipation K59.09 ; Hyperlipidem ia, unspecified hyperlipidemia E78.5 ; Essential hypertension I10 ; Primary insomnia F51.01 ; Anxiety F41.9 ; Chronic pain syndrome G89.4 ; Right shoulder pain M25.511 and Acute cystitis without hematuria N30.00 [facility] [address] [address] Jul, [facility] [address] [address] Jul, [facility] [address] [address] Jun, [facility] [address] [address] Jun, [facility] [address] [address] Jun, [facility] [address] [address] May, [facility] [address] [address] May, Other chronic pain 338.29 ; Hypertension 401.9 and Constipation due to opioid therapy 564.09 [facility] [address] [address] May, [facility] [address] [address] May, [facility] [place] [facility] [address] [facility] [id number] [place] [address] Apr, [facility] [place] [facility] [address] [id number] [place] [address] Apr, Unspecified essential hypertension 401.9 [facility] [place] [facility] [address] [id number] [place] [address] 16 Apr, 2015 [facility] [place] [facility] [address] [id number] [place] [address] Apr, [facility] [place] [facility] [address] [id number] [place] [address] Apr, [facility] [place] [facility] [address] [id number] [place] [address] Apr, [facility] [place] [facility] [address] [id number] [place] [address] Apr, [facility] [place] [facility] [address] [id number] [place] [address] Apr, [facility] [place] [facility] [address] [id number] [place] [address] March, Unspecified essential hypertension 401.9 [facility] [place] [facility] [address] [id number] [place] [address] March, [facility] [place] [facility] [address] [id number] [place] [address] March, [facility] [place] [facility] [address] [id number] [place] [address] 14 Feb, 2015 [facility] [place] [facility] [address] [id number] [place] [address] 13 Feb, 2015 [facility] [place] [facility] [address] [id number] [place] [address] Jan, [facility] [place] [facility] [address] [id number] [place] [address] 23 Jan, 2015 [facility] [place] [facility] [address] [id number] [place] [address] Jan, [facility] [place] [facility] [address] [id number] [place] [address] 17 Jan, 2014 [facility] [place] [facility] [address] [id number] [place] [address] 13 Jan, 2014 [facility] [place] [facility] [address] [id number] [place] [address] 02 Jan, 2014 [facility] [place] [facility] [address] [id number] [place] [address] 02 Jan, 2014 [facility] [place] [facility] [address] [id number] [place] [address] 16 Dec, 2014 [facility] [place] [facility] [address] [id number] [place] [address] 16 Dec, 2014 [facility] [place] [facility] [address] [id number] [place] [address] Dec, 2014 [facility] [place] [facility] [address] [id number] [place] [address] Nov, [facility] [place] [facility] [address] [id number] [place] [address] Nov, [facility] [place] [facility] [address] [id number] [place] [address] Oct, [facility] [place] [facility] [address] [id number] [place] [address] Oct, [facility] [place] [facility] [address] [id number] [place] [address] Oct, [facility] [place] [facility] [address] [id number] [place] [address] Oct, [facility] [place] [facility] [address] [id number] [place] [address] 08 Oct, 2014 [facility] [place] [facility] [address] [id number] [place] [address] 08 Oct, 2014 [facility] [place] [facility] [address] [id number] [place] [address] Oct, [facility] [place] [facility] [address] [id number] [place] [address] Oct, [facility] [place] [facility] [address] [facility] [id number] [place] [address] Sep, [facility] [place] [facility] [address] [facility] [id number] [place] [address] Sep, [facility] [place] [facility] [address] [id number] [place] [address] Sep, [facility] [place] [facility] [address] [id number] [place] [address] Sep, [facility] [place] [facility] [address] [id number] [place] [address] Sep, [facility] [place] [facility] [address] [id number] [place] [address] Sep, [facility] [place] [facility] [address] [id number] [place] [address] Aug, [facility] [place] [facility] [address] [id number] [place] [address] Aug, [facility] [place] [facility] [address] [id number] [place] [address] Aug, [facility] [place] [facility] [address] [id number] [place] [address] Aug, [facility] [place] [facility] [address] [id number] [place] [address] Aug, [facility] [place] [facility] [address] [id number] [place] [address] Aug, [facility] [place] [facility] [address] [facility] [id number] [place] [address] Aug, [facility] [place] [facility] [address] [id number] [place] [address] Aug, [facility] [place] [facility] [address] [id number] [place] [address] Aug, [facility] [place] [facility] [address] [id number] [place] [address] Aug, [facility] [place] [facility] [address] [id number] [place] [address] Jul, [facility] [place] [facility] [address] [id number] [place] [address] Jul, [facility] [place] [facility] [address] [facility] [id number] [place] [address] Jul, [facility] [place] [facility] [address] [facility] [id number] [place] [address] Jul, [facility] [place] [facility] [address] [facility] [id number] [place] [address] Jul, [facility] [address] [facility] [id number] [place] [address] Jul, [facility] [address] [facility] [id number] [place] [address] Jun, [facility] [address] [id number] [place] [address] Jun, [facility] [address] [facility] [id number] [place] [address] Jun, [facility] [address] [facility] [id number] [place] [address] Jun, [facility] [address] [facility] [id number] [place] [address] Jun, [facility] [address] [id number] [place] [address] Jun, [facility] [address] [facility] [id number] [place] [address] May, [facility] [address] [id number] [place] [address] May, [facility] [address] [id number] [place] [address] May, [facility] [address] [facility] [id number] [place] [address] May, [facility] [address] [id number] [place] [address] May, [facility] [address] [facility] [id number] [place] [address] Apr, [facility] [address] [facility] [id number] [place] [address] Apr, [facility] [address] [id number] [place] [address] Apr, [facility] [address] [id number] [place] [address] Apr, [facility] [facility] [address] [facility] [id number] [place] [address] March, [facility] [address] [facility] [id number] [place] [address] March, [facility] [place] [facility] [address] [facility] [id number] [place] [address] March, [facility] [place] [facility] [address] [facility] [id number] [place] [address] March, [facility] [place] [facility] [address] [facility] [id number] [place] [address] March, [facility] [address] [facility] [id number] [place] [address] March, [facility] [address] [facility] [id number] [place] [address] Feb, [facility] [address] [facility] [id number] [place] [address] Feb, [facility] [address] [facility] [id number] [place] [address] Feb, [facility] [address] [facility] [id number] [place] [address] Feb, [facility] [address] [id number] [place] [address] Feb, [facility] [place] [facility] [address] [facility] [id number] [place] [address] Feb, [facility] [facility] [address] [facility] [id number] [place] [address] Feb, [facility] [address] [facility] [id number] [place] [address] Feb, [facility] [address] [facility] [id number] [place] [address] Jan, [facility] [address] [facility] [id number] [place] [address] Jan, [facility] [address] [facility] [id number] [place] [address] Jan, [facility] [address] [facility] [id number] [place] [address] Jan, [facility] [address] [id number] [place] [address] Jan, [facility] [address] [id number] [place] [address] Jan, [facility] [address] [facility] [id number] [place] [address] Dec, [facility] [address] [facility] [id number] [place] [address] Dec, [facility] [address] [facility] [id number] [place] [address] Nov, [facility] [address] [facility] [id number] [place] [address] Nov, [facility] [address] [facility] [id number] [place] [address] Nov, [facility] [address] [facility] [id number] [place] [address] Nov, [facility] [address] [facility] [id number] [place] [address] Nov, [facility] [address] [facility] [id number] [place] [address] Nov, [facility] [address] [facility] [id number] [place] [address] Nov, [facility] [address] [facility] [id number] [place] [address] Nov, [facility] [address] [id number] [place] [address] Nov, [facility] [address] [id number] [place] [address] Nov, [facility] [address] [facility] [id number] [place] [address] Nov, [facility] [address] [id number] [place] [address] Nov, [facility] [address] [id number] [place] [address] Nov, [facility] [address] [id number] [place] [address] Nov, [facility] [address] [id number] [place] [address] Nov, [facility] [address] [id number] [place] [address] Oct, [facility] [address] [id number] [place] [address] Oct, [facility] [address] [id number] [place] [address] Oct, [facility] [address] [facility] [id number] [place] [address] Oct, [facility] [address] [id number] [place] [address] Oct, [facility] [address] [id number] [place] [address] Oct, [facility] [address] [id number] [place] [address] Oct, [facility] [address] [id number] [place] [address] Oct, [facility] [address] [id number] [place] [address] Oct, [facility] [address] [facility] [id number] [place] [address] Aug, [facility] [address] [facility] [id number] [place] [address] Aug, IMMUNIZATIONS No Known Immunizations SOCIAL HISTORY Never Assessed REASON FOR VISIT Blood Pressure-awoods PLAN OF CARE Activity Details Follow Up 6 Months Reason:HTN VITAL SIGNS Height 69 in 2019-02-19 Weight 187 lbs 2019-02-19 Temperature 98.5 degrees Fahrenheit 2019-02-19 Heart Rate 70 bpm 2019-02-19 Respiratory Rate 18 2019-02-19 BMI 27.61 kg/m2 2019-02-19 Blood pressure systolic 138 mmHg 2019-02-19 Blood pressure diastolic 86 mmHg 2019-02-19 MEDICATIONS Medication Instructions Dosage Frequency Start Date End Date Duration S tatus Clonazepam 0.5 mg Orally Once a day 1 tablet at bedtime 24h 26 A 2015 14 days Not-Taking Amitriptyline HCl 50 MG TAKE ONE TABLET BY MOUTH ONCE DAILY AT BEDTIME 30 Active Lisinopril-Hydrochlorothiazide 20-25 MG Orally Once a day 1 tablet 24h Active Multivitamin 1 Tablet 1 time per day Aug, Active ProAir HFA 108 (90 Base) MCG/ACT Inhalation every 4 hrs 2 puffs as ne eded 4h Active Fluoxetine HCl 20 MG by oral route Once a day 1 capsule 24h 30 Active Tramadol HCl 50 MG Orally 2 times a day 1 tablet 12h Active Omeprazole 20 MG TAKE ONE CAPSULE BY MOUTH ONCE DAILY 30 Active Benadryl 25 orally BID 2 tabs 12h Active Aspirin 81 mg take 1 tablet (81 mg) by oral route once daily Nov, Active Atenolol 50 MG Orally Once a day 1 tablet 24h Active Cyanocobalamin 1000 MCG/ML INJECT 1 ML SUBCUTANEOUSLY EVERY OTHER MONTH 28 Active RESULTS No Results PROCEDURES Procedure Date Ordered Result Body Site [facility] VISIT ESTABLISHED PATIENT February 19, 2019 INSTRUCTIONS MEDICATIONS ADMINISTERED No Known Medications MEDICAL (GENERAL) HISTORY Type Description Date Medical History hypertension Medical History asthma Medical History Arthritis Medical History Hypoglycemia Medical History Heart Cath 11/05/2013 Medical History herniated disc--Seen by Dr. Troy Michelle pain specialist in [place], [place] Medical History Chronic low back pain [...]
--- OUTSIDE RECORDS SUMMARY | 2020-06-19 02:06 | XMS REPORT ---
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 Role Phone ARMANDONYASIA DIAZY Unavailable PROBLEMS Type Condition ICD9-CM Code HDG59-GC Code Onset Dates Condition S tatus SNOMED Code Problem Chronic pain syndrome G89.4 Active 416499206 Problem Other constipation K59.09 Active 1 [id number] Problem Anxiety F41.9 Active 98356462 Problem Primary insomnia F51.01 Active 193 609491 Problem Atherosclerosis of [place] co ronary artery of [place] heart without angina pectoris I25.10 Active 6211305221597 Problem Essential hypertension I10 Active 18394094 Problem Hyperlipidemia, unspecified hyperlipidemia E78.5 Active 52598897 Problem Major depressive disorder, recurrent episode, un specified severity F33.9 Active 67673827 Problem Allergic rhinitis J30.9 Active 61 666183 Problem Fibromyalgia M79.7 Active 3118463 7 Problem GERD (gastroesophageal reflux disease) K21.9 Active 240030975 Problem Degenerative disc disease, thoracic M51.34 Active 76332540 Problem Bilateral low back pain, with sciatica presence unspecifie d M54.5 Active 723739146 Problem Moderate episode of recurrent major depressive disorder F33.1 Active 989029125 Problem B12 deficiency E53.8 Active 40210 4004 Problem Chronic obstructive pulmonary disease, unspecified COPD ty pe J44.9 Active 10885274 Problem CKD (chronic kidney disease) stage 3, GFR 30-59 ml/min N18.3 Active 120842894 Problem Cannabis abuse F12.10 Active 91602 009 Problem Degenerative disc disease, cervical M50.30 Active 32301240 ALLERGIES No Information ENCOUNTERS Encounter Location Date Diagnosis [facility] [place] [address] [id number] [place] [address] Nov, [facility] [place] [address] [id number] [place] [address] Oct, Moderate episode of recurrent major depr essive disorder F33.1 ; Chronic obstructive pulmonary disease, unspecified COPD type J44.9 ; CKD (chronic kidney disease) stage 3, GFR 30-59 ml/min N18.3 ; Essential hypertension I10 and Possible exposure to STD Z20.2 [place] [address] [address] Oct, Essential hypertension I10 [place] [address] [address] Oct, [place] [address] [address] Sep, Essential hypertension I10 [place] [address] [address] Sep, [place] [address] [address] Sep, [place] [address] [address] Sep, [place] [address] [address] Aug, Essential hypertension I10 [place] [address] [address] Aug, Essential hypertension I10 [place] [address] [address] Jul, Allergic rhinitis J30.9 ; CKD (chronic k idney disease) stage 3, GFR 30-59 ml/min N18.3 ; Essential hypertension I10 and Moderate episode of recurrent major depressive disorder F33.1 [place] [address] [address] 11 Jul, 2019 Elevated platelet count R79.89 ; B12 def iciency E53.8 ; Hyperlipidemia, unspecified hyperlipidemia E78.5 and CKD (chronic kidney disease) stage 3, GFR 30-59 ml/min N18.3 [place] [address] [address] Apr, B12 deficiency E53.8 [place] [address] [address] Jan, Periumbilical hernia K42.9 ; CKD (chroni c kidney disease) stage 3, GFR 30-59 ml/min N18.3 ; Essential hypertension I10 ; GERD (gastroesophageal reflux disease) K21.9 ; Hyperlipidemia, unspecified hyperlipidemia E78.5 and Major depressive disorder, recurrent episode, unspecified severity F33.9 [place] [address] [place] [id number] 12 Dec, 2018 Anxiety F41.9 [place] [address] [address] Nov, Elevated platelet count R79.89 [place] [address] [address] 15 Nov, 2018 [place] [address] [address] Nov, Elevated platelet count R79.89 [place] [address] [address] Nov, Anxiety F41.9 [place] [address] [address] Nov, Bilateral low back pain, with sciatica p resence unspecified M54.5 ; Cervicalgia M54.2 ; Degenerative disc disease, cervical M50.30 and Degenerative disc disease, thoracic M51.[address] [address] Nov, Chronic pain syndrome G89.4 and Bilatera l low back pain, with sciatica presence unspecified M54.[address] [address] Oct, Umbilical hernia without obstruction and without gangrene K42.9 [place] [address] [address] Oct, Chronic pain syndrome G89.4 [place] [address] [address] 13 Oct, 2018 Chronic pain syndrome G89.4 and Anxiety F41.9 [place] [address] [address] Oct, Elevated platelet count R79.89 [place] [address] [address] Oct, CKD (chronic kidney disease) stage 3, GF R 30-59 ml/min N18.3 ; Other chest pain R07.89 ; Acute midline thoracic back pain M54.6 ; Essential hypertension I10 and History of osteoporosis Z87.39 [place] [address] [address] Sep, Chronic pain syndrome G89.4 [place] [address] [address] Sep, [address] [address] Sep, Anxiety F41.9 and Chronic pain syndrome G89.4 [place] [address] [address] 18 Aug, 2018 Chronic pain syndrome G89.4 and Anxiety F41.9 [place] [address] [address] Aug, [place] [address] [address] Aug, Cannabis abuse F12.10 and Controlled sub stance agreement terminated Z91.14 [place] [address] [address] Jul, Chronic pain syndrome G89.4 ; Bilateral low back pain, with sciatica presence unspecified M54.5 ; Chronic prescription opiate use Z79.899 ; Essential hypertension I10 ; Hyperlipidemia, unspecified hyperlipidemia E78.5 ; CKD (chronic kidney disease) stage 3, GFR 30-59 ml/min N18.3 and Allergic rhinitis J30.9 [place] [address] [address] Jul, Chronic pain syndrome G89.4 and Anxiety F41.9 [place] [address] [address] Jul, Screening for breast cancer Z12.31 and Casandra castillo depressive disorder, recurrent episode, unspecified severity F33.9 [place] [address] [address] Jun, Chronic pain syndrome G89.4 and Anxiety F41.9 [place] [address] [address] May, Chronic pain syndrome G89.4 and Anxiety F41.9 [place] [address] [address] Apr, Anxiety F41.[address] [address] Apr, Chronic prescription opiate use Z79.899 ; Chronic pain syndrome G89.4 ; Essential hypertension I10 ; Allergic rhinitis J30.9 and CKD (chronic kidney disease) stage 3, GFR 30-59 ml/min N18.3 [place] [address] [address] Apr, [place] [address] [address] March, Anxiety F41.9 and Chronic pain syndrome G89.[address] [address] March, CKD (chronic kidney disease) stage 3, GF R 30-59 ml/min N18.3 ; B12 deficiency E53.8 and Hyperlipidemia, unspecified hyperlipidemia E78.5 [place] [address] [address] March, Anxiety F41.9 and Chronic pain syndrome G89.[address] [address] Feb, Anxiety F41.9 and Chronic pain syndrome G89.4 [place] [address] [address] Jan, B12 deficiency E53.8 [place] [address] [address] Jan, [place] [address] [address] Jan, Anxiety F41.9 ; Chronic pain syndrome G8 9.4 and Essential hypertension I10 [place] [address] [address] Jan, CKD (chronic kidney disease) stage 3, [...] Subacromial bursitis of right shoulder joint M75.51 [place] [address] [address] Dec, Essential hypertension I10 [place] [address] [address] Dec, Chronic pain syndrome G89.4 [place] [address] [address] Dec, Chronic pain syndrome G89.4 [place] [address] [address] Nov, [place] [address] [address] Nov, Chronic pain syndrome G89.4 and Anxiety F41.9 [place] [address] [address] Oct, Chronic pain syndrome G89.4 ; Other cons tipation K59.09 and Chronic prescription opiate use Z79.899 [place] [address] [address] Oct, Chronic pain syndrome G89.4 and Anxiety F41.9 [place] [address] [address] Sep, Essential hypertension I10 [place] [address] [address] Sep, Chronic pain syndrome G89.4 and Anxiety F41.9 [place] [address] [address] Aug, Chronic pain syndrome G89.4 and Anxiety F41.9 [place] [address] [address] Jul, Essential hypertension I10 [place] [address] [address] Jul, Chronic obstructive pulmonary disease, u nspecified COPD type J44.9 [place] [address] [address] Jul, Chronic pain syndrome G89.4 and Anxiety F41.9 [place] [address] [address] 13 Jul, 2017 Chronic pain syndrome G89.4 ; Essential hypertension I10 ; Fibromyalgia M79.7 ; CKD (chronic kidney disease) stage 3, GFR 30-59 ml/min N18.3 ; Subacromial bursitis, right M75.51 and Goals of care, co unseling/discussion Z71.89 [place] [address] [address] Jun, Chronic pain syndrome G89.4 and Anxiety F41.9 [place] [address] [address] May, Chronic pain syndrome G89.4 and Anxiety F41.9 [place] [address] [address] Apr, Chronic pain syndrome G89.4 and Anxiety F41.[address] [address] Apr, Drug induced constipation K59.03 ; Chron ic pain syndrome G89.4 and CKD (chronic kidney disease) stage 3, GFR 30-59 ml/min N18.3 [place] [address] [address] Apr, Chronic pain syndrome G89.4 and Anxiety F41.[address] [address] March, Chronic pain syndrome G89.4 and Anxiety F41.[address] [address] March, Decreased GFR R94.[address] [address] Feb, [address] [address] Feb, Chronic pain syndrome G89.4 and Anxiety F41.9 [place] [address] [address] Jan, Decreased GFR R94.[address] [address] Jan, Decreased GFR R94.[address] [address] Jan, Allergic rhinitis J30.9 ; Essential hype rtension I10 ; Major depressive disorder, recurrent episode, unspecified severity F33.9 and Primary insomnia F51.[address] [address] 10 Jan, 2017 Acute right-sided thoracic back pain M54 .6 ; Subacromial bursitis of right shoulder joint M75.51 ; Chronic pain syndrome G89.4 and Anxiety F41.9 [place] [address] [address] Jan, Decreased GFR R94.4 [place] [address] [address] Dec, Decreased GFR R94.4 [place] [address] [address] Dec, Decreased GFR R94.4 [place] [address] [address] Dec, Decreased GFR R94.4 [place] [address] [address] Dec, Decreased GFR R94.4 [place] [address] [address] Dec, Anxiety F41.9 and Bilateral low back candis n, with sciatica presence unspecified M54.5 [place] [address] [address] Dec, Thrombocytosis D47.3 ; Hyperlipidemia, u nspecified hyperlipidemia E78.5 ; Need for hepatitis C screening test Z11.59 and B12 deficiency E53.8 [place] [address] [address] Nov, Need for hepatitis C screening test Z11. 59 [place] [address] [address] Nov, Anxiety F41.9 and Bilateral low back candis n, with sciatica presence unspecified M54.5 [place] [address] [address] Oct, Bilateral low back pain, with sciatica p resence unspecified M54.5 ; Chronic prescription opiate use Z79.899 ; Anxiety F41.9 ; Essential hypertension I10 ; Hyperlipidemia, unspecified hyperlipidemia E78.5 ; Health care maintenance Z00.00 and Thrombocytosis D47.3 [place] [address] [address] Sep, [facility] [place] [address] [address] Sep, [facility] [place] [address] [address] Aug, [facility] [place] [address] [address] Jul, B12 deficiency E53.8 [facility] [place] [address] [address] Jul, [place] [address] [address] Jul, Essential hypertension I10 ; Chronic candis n syndrome G89.4 ; Anxiety F41.9 ; Screening for breast cancer Z12.39 ; Atherosclerosis of [place] coronary artery of [place] heart without angina pectoris I25.10 ; Major depressive disorder, recurrent episode, unspecified severity F33.9 ; Primary insomnia F51.01 and Allergic rhinitis J30.9 [facility] [place] [address] [address] Jun, [facility] [address] [facility] [id number] [place] [address] Jun, Leg wound, right, initial en counter S81.801A and Encounter for immunization Z23 [facility] [place] [address] [address] Jun, Open wound of right ear, unspecified ope n wound type, initial encounter S01.301A [facility] [place] [address] [address] May, B12 deficiency E53.8 [place] [address] [address] May, [facility] [place] [address] [address] May, [facility] [place] [address] [address] May, Chronic pain syndrome G89.4 ; Chronic pr escription opiate use Z79.899 ; Allergic rhinitis J30.9 ; Essential hypertension I10 and Non-healing skin lesion L98.9 [facility] [place] [address] [address] Apr, [facility] [place] [address] [address] March, [facility] [place] [address] [address] Feb, [facility] [place] [address] [address] Feb, [place] [address] [address] Feb, Chronic pain syndrome G89.4 ; Anxiety F4 1.9 ; B12 deficiency E53.8 ; Allergic rhinitis J30.9 ; Fibromyalgia M79.7 ; Actinic keratosis L57.0 ; Skin rash R21 ; Open wound of right ear, unspecified open wound type, initial encounter S01.301A ; Subacromial bursitis, right M75.51 ; GERD (gastroesophageal reflux disease) K21.9 and Chronic obstructive pulmonary disease, unspecified COPD type J44.9 [place] [address] [address] Jan, [facility] [place] [address] [address] Jan, Essential hypertension I10 [facility] [place] [address] [address] Jan, [facility] [place] [address] [address] Jan, [facility] [place] [address] [address] Jan, [facility] [place] [address] [address] Dec, [place] [address] [address] 16 Dec, 2015 Essential hypertension I10 [place] [address] [address] Dec, [place] [address] [address] Dec, B12 deficiency E53.8 and Essential hyper tension I10 [place] [address] [address] Dec, [place] [address] [address] Nov, Right shoulder pain M25.511 [place] [address] [address] Nov, Right shoulder pain M25.511 [place] [address] [address] Nov, Essential hypertension I10 and B12 defic iency E53.8 [place] [address] [address] Nov, Major depressive disorder, recurrent epi sode, unspecified severity F33.9 ; Anxiety F41.9 ; Chronic pain syndrome G89.4 ; Essential hypertension I10 ; Hyperlipidemia, unspecified hyperlipidemia E78.5 ; Chronic prescription opiate use Z79.899 ; Allergic rhinitis J30.9 ; B12 deficiency E53.8 and Right shoulder pain M25.511 [place] [address] [address] Oct, [place] [address] [address] Oct, [place] [address] [address] Sep, [place] [address] [address] Sep, [place] [address] [address] Aug, [facility] [place] [address] [place] [id number] [place] [address] Aug, [facility] [place] [address] [address] Aug, [facility] [place] [address] [address] Aug, Other constipation K59.09 ; Hyperlipidem ia, unspecified hyperlipidemia E78.5 ; Essential hypertension I10 ; Primary insomnia F51.01 ; Anxiety F41.9 ; Chronic pain syndrome G89.4 ; Right shoulder pain M25.511 and Acute cystitis without hematuria N30.00 [facility] [place] [address] [address] Jul, [facility] [place] [address] [address] Jul, [facility] [place] [address] [address] Jun, [facility] [place] [address] [address] Jun, [facility] [place] [address] [address] Jun, [facility] [place] [address] [address] May, [facility] [place] [address] [address] May, Other chronic pain 338.29 ; Hypertension 401.9 and Constipation due to opioid therapy 564.09 [facility] [place] [address] [address] May, [facility] [place] [address] [address] May, [facility] [place] [address] [address] Apr, [facility] [place] [address] [address] Apr, Unspecified essential hypertension 401.9 [facility] [address] [id number] [place] [address] 16 Apr, 2015 [facility] [address] [id number] [place] [address] Apr, [facility] [address] [id number] [place] [address] Apr, [facility] [address] [id number] [place] [address] Apr, [facility] [address] [id number] [place] [address] Apr, [facility] [address] [id number] [place] [address] Apr, [facility] [address] [id number] [place] [address] March, Unspecified essential hypertension 401.9 [facility] [address] [id number] [place] [address] March, [facility] [address] [id number] [place] [address] March, [facility] [address] [id number] [place] [address] 14 Feb, 2015 [facility] [address] [id number] [place] [address] Feb, [facility] [address] [id number] [place] [address] 23 Jan, 2015 [facility] [place] [address] [id number] [place] [address] 23 Jan, 2015 [facility] [address] [id number] [place] [address] 17 Jan, 2015 [facility] [place] [facility] [address] [id number] [place] [address] 17 Jan, 2015 [facility] [address] [id number] [place] [address] Jan, [facility] [place] [facility] [address] [facility] [id number] [place] [address] Jan, [facility] [place] [facility] [address] [facility] [id number] [place] [address] Jan, [facility] [place] [facility] [address] [id number] [place] [address] Dec, [facility] [place] [address] [id number] [place] [address] Dec, [facility] [place] [facility] [address] [facility] [id number] [place] [address] Dec, [facility] [place] [facility] [address] [id number] [place] [address] Nov, [facility] [place] [facility] [address] [id number] [place] [address] Nov, [facility] [place] [address] [id number] [place] [address] Oct, [facility] [place] [address] [id number] [place] [address] Oct, [facility] [place] [address] [id number] [place] [address] Oct, [facility] [place] [address] [id number] [place] [address] Oct, [facility] [place] [address] [id number] [place] [address] Oct, [facility] [place] [address] [id number] [place] [address] Oct, [facility] [place] [address] [id number] [place] [address] Oct, [facility] [place] [address] [id number] [place] [address] Oct, [facility] [place] [address] [id number] [place] [address] Sep, [facility] [place] [address] [id number] [place] [address] Sep, [facility] [place] [address] [facility] [id number] [place] [address] Sep, [facility] [place] [address] [id number] [place] [address] Sep, [facility] [place] [address] [id number] [place] [address] Sep, [facility] [place] [address] [id number] [place] [address] Sep, [facility] [place] [address] [id number] [place] [address] Aug, [facility] [address] [id number] [place] [address] Aug, [facility] [address] [id number] [place] [address] Aug, [facility] [place] [address] [id number] [place] [address] Aug, [facility] [place] [address] [id number] [place] [address] Aug, [facility] [address] [id number] [place] [address] Aug, [facility] [address] [id number] [place] [address] Aug, [facility] [address] [id number] [place] [address] Aug, [facility] [address] [id number] [place] [address] Aug, [facility] [address] [id number] [place] [address] Aug, [facility] [address] [id number] [place] [address] Jul, [facility] [address] [id number] [place] [address] Jul, [facility] [address] [id number] [place] [address] Jul, [facility] [address] [facility] [id number] [place] [address] Jul, [facility] [address] [facility] [id number] [place] [address] Jul, [facility] [address] [id number] [place] [address] Jul, [facility] [address] [facility] [id number] [place] [address] Jun, [facility] [address] [facility] [id number] [place] [address] Jun, [facility] [address] [id number] [place] [address] Jun, [facility] [address] [id number] [place] [address] Jun, [facility] [address] [id number] [place] [address] Jun, [facility] [address] [id number] [place] [address] Jun, [facility] [address] [id number] [place] [address] May, [facility] [address] [id number] [place] [address] May, [facility] [address] [id number] [place] [address] May, [facility] [address] [facility] [id number] [place] [address] May, [facility] [address] [id number] [place] [address] May, [facility] [address] [id number] [place] [address] Apr, [facility] [address] [id number] [place] [address] Apr, [facility] [address] [id number] [place] [address] Apr, [facility] [address] [facility] [id number] [place] [address] Apr, [facility] [address] [facility] [id number] [place] [address] March, [facility] [address] [id number] [place] [address] March, [facility] [address] [id number] [place] [address] March, [facility] [address] [id number] [place] [address] March, [facility] [address] [id number] [place] [address] March, [facility] [address] [id number] [place] [address] March, [facility] [address] [facility] [id number] [place] [address] Feb, [facility] [address] [id number] [place] [address] Feb, [facility] [address] [id number] [place] [address] Feb, [facility] [address] [id number] [place] [address] Feb, [facility] [address] [facility] [id number] [place] [address] Feb, [facility] [address] [id number] [place] [address] Feb, [facility] [address] [id number] [place] [address] Feb, [facility] [address] [id number] [place] [address] Feb, [facility] [address] [id number] [place] [address] Jan, [facility] [address] [facility] [id number] [place] [address] Jan, [facility] [address] [id number] [place] [address] Jan, [facility] [address] [id number] [place] [address] Jan, [facility] [address] [id number] [place] [address] Jan, [facility] [address] [facility] [id number] [place] [address] Jan, [facility] [address] [id number] [place] [address] Dec, [facility] [address] [id number] [place] [address] Dec, [facility] [address] [id number] [place] [address] Nov, [facility] [address] [id number] [place] [address] Nov, [facility] [address] [id number] [place] [address] Nov, [facility] [address] [id number] [place] [address] Nov, [facility] [address] [id number] [place] [address] Nov, [facility] [address] [id number] [place] [address] Nov, [facility] [address] [id number] [place] [address] Nov, [facility] [address] [id number] [place] [address] Nov, [facility] [address] [id number] [place] [address] Nov, [facility] [address] [id number] [place] [address] Nov, [facility] [address] [id number] [place] [address] Nov, [facility] [address] [id number] [place] [address] Nov, [facility] [address] [id number] [place] [address] Nov, [facility] [address] [id number] [place] [address] Nov, [facility] [address] [id number] [place] [address] Nov, [facility] [address] [id number] [place] [address] Oct, [facility] [address] [id number] [place] [address] Oct, [facility] [address] [id number] [place] [address] Oct, [facility] [address] [id number] [place] [address] Oct, [facility] [address] [id number] [place] [address] Oct, [facility] [address] [id number] [place] [address] Oct, [facility] [address] [id number] [place] [address] Oct, [facility] [address] [id number] [place] [address] Oct, [facility] [address] [id number] [place] [address] Oct, [facility] [address] [id number] [place] [address] Aug, [facility] [address] [id number] [place] [address] Aug, IMMUNIZATIONS No Known Immunizations SOCIAL HISTORY Never Assessed REASON FOR VISIT PLAN OF CARE VITAL SIGNS Blood pressure systolic 126 mmHg 2014-03-06 Blood pressure diastolic 78 mmHg 2014-03-06 MEDICATIONS Unknown Medications RESULTS No Results PROCEDURES Procedure Date Ordered Result Body Site BLOOD PRESSURE, MEASURED March 06, 2014 INSTRUCTIONS MEDICATIONS ADMINISTERED No Known Medications MEDICAL (GENERAL) HISTORY Type Description Date Medical History hypertension Medical History asthma Medical History Arthritis Medical History Hypoglycemia Medical History Heart Cath 11/05/2013 Medical History herniated disc--Seen by Dr. Troy Michelle pain specialist in [place], [place] Medical History Chronic low back pain [...]
--- OUTSIDE RECORDS SUMMARY | 2020-06-19 02:07 | XMS REPORT ---
Author Author ARMANDO Mahsa ASHVIN Organization [facility] Address [address] [place] [address] Care Team Providers Care Manager Card Name Role Phone ASHVIN ROBERTS Unavailable PROBLEMS Type Condition ICD9-CM Code KIL05-IZ Code Onset Dates Condition S tatus SNOMED Code Problem Chronic pain syndrome G89.4 Active 204749868 Problem Other constipation K59.09 Active 1 [id number] Problem Anxiety F41.9 Active 45671534 Problem Primary insomnia F51.01 Active 193 222330 Problem Atherosclerosis of huslia co ronary artery of huslia heart without angina pectoris I25.10 Active [id number] Problem Essential hypertension I10 Active 19945223 Problem Hyperlipidemia, unspecified hyperlipidemia E78.5 Active 89942994 Problem Major depressive disorder, recurrent episode, un specified severity F33.9 Active 83057046 Problem Allergic rhinitis J30.9 Active 61 276876 Problem Fibromyalgia M79.7 Active 6641309 7 Problem GERD (gastroesophageal reflux disease) K21.9 Active 723988731 Problem Degenerative disc disease, thoracic M51.34 Active 40677972 Problem Bilateral low back pain, with sciatica presence unspecifie d M54.5 Active 162742941 Problem Moderate episode of recurrent major depressive disorder F33.1 Active 745175683 Problem B12 deficiency E53.8 Active 61299 4004 Problem Chronic obstructive pulmonary disease, unspecified COPD ty pe J44.9 Active 62707283 Problem CKD (chronic kidney disease) stage 3, GFR 30-59 ml/min N18.3 Active 294386418 Problem Cannabis abuse F12.10 Active 33255 009 Problem Degenerative disc disease, cervical M50.30 Active 21744028 ALLERGIES No Information ENCOUNTERS Encounter Location Date Diagnosis [facility] [address] [facility] [id number] [address] [place] [address] 25 Jul, 2019 Allergic rhinitis J30.9 ; CK D (chronic kidney disease) stage 3, GFR 30-59 ml/min N18.3 ; Essential hypertension I10 and Moderate episode of recurrent major depressive disorder F33.1 [place] [address] [facility] [id number] [address] [place] [address] Jul, Elevated platelet count R79. 89 ; B12 deficiency E53.8 ; Hyperlipidemia, unspecified hyperlipidemia E78.5 and CKD (chronic kidney disease) stage 3, GFR 30-59 ml/min N18.3 [place] [address] [place] [id number] [address] [place] [address] Apr, B12 deficiency E53.8 [place] [address] [address] [facility] [id number] [address] [place] [address] Jan, Periumbilical hernia K42.9 ; CKD (chronic kidney disease) stage 3, GFR 30-59 ml/min N18.3 ; Essential hypertension I10 ; GERD (gastroesophageal reflux disease) K21.9 ; Hyperlipidemia, unspecified hyperlipidemia E78.5 and Major depressive disorder, recurrent episode, unspecified severity F33.9 [place] [address] [address] [facility] [id number] [address] [place] [address] Dec, Anxiety F41.9 [place] [address] [address] [facility] [id number] [address] [place] [address] Nov, Elevated platelet count R79. 89 [place] [address] [place] [id number] [address] [place] [address] 15 Nov, 2018 [place] [address] [facility] [id number] [address] [place] [address] Nov, Elevated platelet count R79. 89 [place] [address] [place] [id number] [address] [place] [address] Nov, Anxiety F41.9 [place] [address] [place] [id number] [address] [place] [address] Nov, Bilateral low back pain, wit h sciatica presence unspecified M54.5 ; Cervicalgia M54.2 ; Degenerative disc disease, cervical M50.30 and Degenerative disc disease, thoracic M51.34 [place] [address] [address] Nov, Chronic pain syndrome G89.4 and Bilateral low back pain, with sciatica presence unspecified M54.5 [place] [address] [address] Oct, Umbilical hernia without obs truction and without gangrene K42.9 [place] [address] [address] Oct, Chronic pain syndrome G89.4 [place] [address] [address] Oct, Chronic pain syndrome G89.4 and Anxiety F41.9 [place] [address] [address] Oct, Elevated platelet count R79. 89 [place] [address] [address] Oct, CKD (chronic kidney disease) stage 3, GFR 30-59 ml/min N18.3 ; Other chest pain R07.89 ; Acute midline thoracic back pain M54.6 ; Essential hypertension I10 and History of osteoporosis Z87.39 [place] [address] [address] 29 Sep, 2018 Chronic pain syndrome G89.4 [place] [address] [address] Sep, [place] [address] [address] Sep, Anxiety F41.9 and Chronic pa in syndrome G89.4 [place] [address] [place] [id number] [place] [address] Aug, Chronic pain syndrome G89.4 and Anxiety F41.9 [place] [address] [address] Aug, [place] [address] [place] [id number] [address] [place] [address] Aug, Cannabis abuse F12.10 and Co ntrolled substance agreement terminated Z91.14 [place] [address] [facility] [id number] [address] [place] [address] Jul, Chronic pain syndrome G89.4 ; Bilateral low back pain, with sciatica presence unspecified M54.5 ; Chronic prescription opiate use Z79.899 ; Essential hypertension I10 ; Hyperlipidemia, unspecified hyperlipidemia E78.5 ; CKD (chronic kidney disease) stage 3, GFR 30-59 ml/min N18.3 and Allergic rhinitis J30.9 [place] [address] [place] [id number] [place] [address] Jul, Chronic pain syndrome G89.4 and Anxiety F41.9 [place] [address] [address] Jul, Screening for breast cancer Z12.31 and Major depressive disorder, recurrent episode, unspecified severity F33.9 [place] [address] [place] [id number] [address] [place] [address] Jun, Chronic pain syndrome G89.4 and Anxiety F41.9 [place] [address] [place] [id number] [address] [place] [address] May, Chronic pain syndrome G89.4 and Anxiety F41.9 [place] [address] [place] [id number] [address] [place] [address] Apr, Anxiety F41.9 [place] [address] [place] [id number] [address] [place] [address] Apr, Chronic prescription opiate use Z79.899 ; Chronic pain syndrome G89.4 ; Essential hypertension I10 ; Allergic rhinitis J30.9 and CKD (chronic kidney disease) stage 3, GFR 30-59 ml/min N18.3 [place] [address] [place] [id number] [address] [place] [address] Apr, [place] [address] [address] March, Anxiety F41.9 and Chronic pa in syndrome G89.4 [place] [address] [address] March, CKD (chronic kidney disease) stage 3, GFR 30-59 ml/min N18.3 ; B12 deficiency E53.8 and Hyperlipidemia, unspecified hyperlipidemia E78.5 [place] [address] [address] March, Anxiety F41.9 and Chronic pa in syndrome G89.[address] [address] Feb, Anxiety F41.9 and Chronic pa in syndrome G89.4 [place] [address] [address] Jan, B12 deficiency E53.8 [place] [address] [address] Jan, [address] [address] Jan, Anxiety F41.9 ; Chronic pain syndrome G89.4 and Essential hypertension I10 [address] [address] Jan, CKD (chronic kidney disease) stage 3, GFR 30-59 ml/min N18.3 ; Drug induced constipation K59.03 ; Chronic obstructive pulmonary disease, unspecified COPD type J44.9 ; Bilateral low back pain, with sciatica presence unspecified M54.5 ; Hyperlipidemia, unspecified hyperlipidemia E78.5 ; Essential hypertension I10 ; Anxiety F41.9 ; Chronic pain syndrome G89.4 ; Major depressive disorder, recurrent episode, unspecified severity F33.9 and Subacromial bursitis of right shoulder joint M75.51 [place] [address] [address] Dec, Essential hypertension I10 [facility] [address] [facility] [id number] [address] [place] [id number] 15 Dec, 2017 Chronic pain syndrome G89.4 [facility] [address] [facility] [id number] [address] [place] [address] 06 Dec, 2017 Chronic pain syndrome G89.4 [facility] [address] [facility] [id number] [address] [place] [address] Nov, [facility] [address] [facility] [id number] [address] [place] [address] Nov, Chronic pain syndrome G89.4 and Anxiety F41.9 [facility] [address] [place] [id number] [address] [place] [address] Oct, Chronic pain syndrome G89.4 ; Other constipation K59.09 and Chronic prescription opiate use Z79.899 [facility] [address] [place] [id number] [address] [place] [address] Oct, Chronic pain syndrome G89.4 and Anxiety F41.9 [facility] [address] [place] [id number] [address] [place] [address] Sep, Essential hypertension I10 [facility] [address] [facility] [id number] [address] [place] [address] 16 Sep, 2017 Chronic pain syndrome G89.4 and Anxiety F41.9 [facility] [address] [place] [id number] [address] [place] [address] Aug, Chronic pain syndrome G89.4 and Anxiety F41.9 [facility] [address] [facility] [id number] [address] [place] [address] Jul, Essential hypertension I10 [facility] [address] [facility] [id number] [address] [place] [address] Jul, Chronic obstructive pulmonar y disease, unspecified COPD type J44.9 [facility] [address] [place] [id number] [address] [place] [address] Jul, Chronic pain syndrome G89.4 and Anxiety F41.9 [facility] [address] [facility] [id number] [address] [place] [address] 13 Jul, 2017 Chronic pain syndrome G89.4 ; Essential hypertension I10 ; Fibromyalgia M79.7 ; CKD (chronic kidney disease) stage 3, GFR 30-59 ml/min N18.3 ; Subacromial bursitis, right M75.51 and Goals of care, co unseling/discussion Z71.89 [facility] [address] [facility] [id number] [address] [place] [address] Jun, Chronic pain syndrome G89.4 and Anxiety F41.9 [place] [address] [facility] [id number] [address] [place] [address] May, Chronic pain syndrome G89.4 and Anxiety F41.9 [place] [address] [place] [id number] [address] [place] [address] Apr, Chronic pain syndrome G89.4 and Anxiety F41.9 [place] [address] [facility] [id number] [address] [place] [address] Apr, Drug induced constipation K5 9.03 ; Chronic pain syndrome G89.4 and CKD (chronic kidney disease) stage 3, GFR 30-59 ml/min N18.3 [facility] [address] [facility] [id number] [address] [place] [address] Apr, Chronic pain syndrome G89.4 and Anxiety F41.9 [facility] [address] [facility] [id number] [address] [place] [address] March, Chronic pain syndrome G89.4 and Anxiety F41.9 [place] [address] [facility] [id number] [address] [place] [address] March, Decreased GFR R94.4 [facility] [address] [facility] [id number] [address] [place] [address] Feb, [place] [address] [place] [id number] [address] [place] [address] Feb, Chronic pain syndrome G89.4 and Anxiety F41.9 [facility] [address] [facility] [id number] [address] [place] [address] Jan, Decreased GFR R94.4 [facility] [address] [place] [id number] [address] [place] [address] Jan, Decreased GFR R94.4 [facility] [address] [place] [id number] [place] [address] Jan, Allergic rhinitis J30.9 ; Es sential hypertension I10 ; Major depressive disorder, recurrent episode, unspecified severity F33.9 and Primary insomnia F51.01 [facility] [address] [place] [id number] [address] [place] [address] Jan, Acute right-sided thoracic b ack pain M54.6 ; Subacromial bursitis of right shoulder joint M75.51 ; Chronic pain syndrome G89.4 and Anxiety F41.9 [facility] [address] [place] [id number] [address] [place] [address] Jan, Decreased GFR R94.4 [facility] [address] [facility] [id number] [address] [place] [address] Dec, Decreased GFR R94.4 [facility] [address] [place] [id number] [address] [place] [address] Dec, Decreased GFR R94.4 [facility] [address] [place] [id number] [address] [place] [address] Dec, Decreased GFR R94.4 [facility] [address] [facility] [id number] [address] [place] [address] Dec, Decreased GFR R94.4 [facility] [address] [facility] [id number] [address] [place] [address] Dec, Anxiety F41.9 and Bilateral low back pain, with sciatica presence unspecified M54.5 [facility] [address] [facility] [id number] [address] [place] [address] Dec, Thrombocytosis D47.3 ; Hyper lipidemia, unspecified hyperlipidemia E78.5 ; Need for hepatitis C screening test Z11.59 and B12 deficiency E53.8 [place] [address] [facility] [id number] [address] [place] [address] Nov, Need for hepatitis C screeni ng test Z11.59 [place] [address] [facility] [id number] [address] [place] [address] Nov, Anxiety F41.9 and Bilateral low back pain, with sciatica presence unspecified M54.5 [place] [address] [place] [id number] [place] [address] Oct, Bilateral low back pain, wit h sciatica presence unspecified M54.5 ; Chronic prescription opiate use Z79.899 ; Anxiety F41.9 ; Essential hypertension I10 ; Hyperlipidemia, unspecified hyperlipidemia E78.5 ; Health care maintenance Z00.00 and Thrombocytosis D47.3 [place] [address] [place] [address] Sep, [place] [address] [place] [id number] [address] [place] [address] Sep, [place] [address] [place] [id number] [address] [place] [address] Aug, [place] [address] [facility] [id number] [address] [place] [address] Jul, B12 deficiency E53.8 [place] [address] [facility] [id number] [address] [place] [address] Jul, [place] [address] [place] [id number] [address] [place] [address] Jul, Essential hypertension I10 ; Chronic pain syndrome G89.4 ; Anxiety F41.9 ; Screening for breast cancer Z12.39 ; Atherosclerosis of [place] coronary artery of huslia heart without angina pectoris I25.10 ; Major depressive disorder, recurrent episode, unspecified severity F33.9 ; Primary insomnia F51.01 and Allergic rhinitis J30.9 [facility] [address] [facility] [id number] [address] [place] [address] Jun, [facility] [address] [facility] [id number] [address] [place] [address] Jun, Leg wound, right, initial en counter S81.801A and Encounter for immunization Z23 [facility] [address] [facility] [id number] [address] [place] [address] Jun, Open wound of right ear, uns pecified open wound type, initial encounter S01.301A [facility] [address] [facility] [id number] [address] [place] [address] May, B12 deficiency E53.8 [facility] [address] [facility] [id number] [address] [place] [address] May, [facility] [address] [facility] [id number] [address] [place] [address] May, [facility] [address] [facility] [id number] [address] [place] [address] May, Chronic pain syndrome G89.4 ; Chronic prescription opiate use Z79.899 ; Allergic rhinitis J30.9 ; Essential hypertension I10 and Non-healing skin lesion L98.9 [facility] [address] [facility] [id number] [address] [place] [address] Apr, [facility] [address] [facility] [id number] [address] [place] [address] March, [facility] [address] [facility] [id number] [address] [place] [address] Feb, [facility] [address] [facility] [id number] [address] [place] [address] Feb, [facility] [address] [place] [id number] [address] [place] [address] Feb, Chronic pain syndrome G89.4 ; Anxiety F41.9 ; B12 deficiency E53.8 ; Allergic rhinitis J30.9 ; Fibromyalgia M79.7 ; Actinic keratosis L57.0 ; Skin rash R21 ; Open wound of right ear, unspecified open wound type, initial encounter S01.301A ; Subacromial bursitis, right M75.51 ; GERD (gastroesophageal reflux disease) K21.9 and Chronic obstructive pulmonary disease, unspecified COPD type J44.9 [facility] [address] [place] [address] 30 Jan, 2016 [facility] [address] [place] [id number] [address] [place] [address] Jan, Essential hypertension I10 [place] [address] [address] Jan, [facility] [address] [address] Jan, [facility] [address] [place] [address] Jan, [facility] [address] [facility] [id number] [address] [place] [address] Dec, [facility] [address] [place] [id number] [address] [place] [address] Dec, Essential hypertension I10 [facility] [address] [facility] [id number] [address] [place] [address] Dec, [facility] [address] [place] [id number] [address] [place] [address] Dec, B12 deficiency E53.8 and Ess ential hypertension I10 [facility] [address] [facility] [id number] [address] [place] [address] Dec, [facility] [address] [place] [id number] [address] [place] [address] Nov, Right shoulder pain M25.511 [place] [address] [place] [address] [address] Nov, Right shoulder pain M25.511 [place] [address] [address] 18 Nov, 2015 Essential hypertension I10 a nd B12 deficiency E53.8 [place] [address] [address] 14 Nov, 2015 Major depressive disorder, r ecurrent episode, unspecified severity F33.9 ; Anxiety F41.9 ; Chronic pain syndrome G89.4 ; Essential hypertension I10 ; Hyperlipidemia, unspecified hyperlipidemia E78.5 ; Chronic prescription opiate use Z79.899 ; Allergic rhinitis J30.9 ; B12 deficiency E53.8 and Right shoulder pain M25.511 [place] [address] [address] Oct, [place] [address] [address] Oct, [place] [address] [address] Sep, [place] [address] [address] Sep, [facility] [address] [address] Aug, [place] [address] [address] Aug, [facility] [address] [address] Aug, [facility] [address] [address] Aug, Other constipation K59.09 ; Hyperlipidemia, unspecified hyperlipidemia E78.5 ; Essential hypertension I10 ; Primary insomnia F51.01 ; Anxiety F41.9 ; Chronic pain syndrome G89.4 ; Right shoulder pain M25.511 and Acute cystitis without hematuria N30.00 [place] [address] [place] [id number] [address] [place] [address] 16 Jul, 2015 [facility] [address] [id number] [address] [place] [address] Jul, [facility] [address] [id number] [address] [place] [address] Jun, [facility] [address] [id number] [address] [place] [address] Jun, [facility] [address] [id number] [address] [place] [address] Jun, [facility] [address] [id number] [address] [place] [address] May, [facility] [address] [id number] [address] [place] [address] May, Other chronic pain 338.29 ; Hypertension 401.9 and Constipation due to opioid therapy 564.09 [facility] [address] [id number] [address] [place] [address] 17 May, 2015 [facility] [address] [id number] [address] [place] [address] May, [facility] [address] [id number] [address] [place] [address] Apr, [facility] [address] [id number] [address] [place] [address] Apr, Unspecified essential hypert ension 401.9 [facility] [address] [id number] [address] [place] [id number] 16 Apr, 2015 [facility] [address] [id number] [address] [place] [phone] Apr, [facility] [address] [id number] [address] [place] [id number] 16 Apr, 2015 [facility] [address] [facility] [id number] [address] [place] [phone] Apr, [facility] [address] [id number] [address] [place] [address], [place] [id number] Apr, [facility] [address] [id number] [address] [place] [address], [place] [id number] Apr, [facility] [address] [id number] [address] [place] [address], [place] [id number] March, Unspecified essential hypert ension 401.9 [facility] [address] [id number] [address] [place] [address], [place] [id number] March, [facility] [address] [id number] [address] [place] [address], [place] [id number] March, [facility] [address] [id number] [address] [place] [address], [place] [id number] Feb, [facility] [address] [id number] [address] [place] [address], [place] [id number] Feb, [facility] [address] [id number] [address] [place] [address], [place] [id number] Jan, [facility] [address] [id number] [address] [place] [address], [place] [id number] Jan, [facility] [address] [id number] [address] [place] [address], [place] [address] Jan, [facility] [address] [id number] [address] [place] [address], [place] [address] Jan, [facility] [address] [id number] [address] [place] [address], [place] [address] Jan, [facility] [address] [id number] [address] [place] [address], [place] [address] Jan, [facility] [address] [id number] [address] [place] [address], [place] [address] Jan, [facility] [address] [id number] [address] [place] [address], [place] [address] Dec, [facility] [address] [id number] [address] [place] [address], [place] [address] 16 Dec, 2014 [facility] [address] [id number] [address] [place] [address], [place] [address] 13 Dec, 2014 [facility] [address] [id number] [address] [place] [address], [place] [address] 16 Nov, 2014 [facility] [address] [id number] [address] [place] [address], [place] [address] Nov, [facility] [address] [id number] [address] [place] [address], [place] [address] Oct, [facility] [address] [id number] [address] [place] [address], [place] [address] Oct, [facility] [address] [id number] [address] [place] [address], [place] [address] Oct, [facility] [address] [id number] [address] [place] [address], [place] [address] Oct, [facility] [address] [id number] [address] [place] [address], [place] [address] Oct, [facility] [address] [id number] [address] [place] [address], [place] [address] Oct, [facility] [address] [id number] [address] [place] [address], [place] [address] Oct, [facility] [address] [id number] [address] [place] [address], [place] [address] Oct, [facility] [address] [id number] [address] [place] [address], [place] [address] Sep, [facility] [address] [id number] [address] [place] [address], [place] [address] Sep, [facility] [address] [id number] [address] [place] [address], [place] [address] Sep, [facility] [address] [id number] [address] [place] [address], [place] [address] Sep, [facility] [address] [id number] [address] [place] [address], [place] [address] Sep, [facility] [address] [id number] [address] [place] [address], [place] [address] Sep, [facility] [address] [id number] [address] [place] [address], [place] [address] Aug, [facility] [address] [id number] [address] [place] [address], [place] [address] Aug, [facility] [address] [id number] [address] [place] [address], [place] [address] Aug, [facility] [address] [id number] [address] [place] [address], [place] [address] Aug, [facility] [address] [id number] [address] [place] [address], [place] [address] Aug, [facility] [address] [id number] [address] [place] [address], [place] [address] Aug, [facility] [address] [id number] [address] [place] [address], [place] [address] Aug, [facility] [address] [id number] [address] [place] [address], [place] [address] Aug, [facility] [address] [id number] [address] [place] [address], [place] [address] Aug, [facility] [address] [id number] [address] [place] [address], [place] [address] Aug, [facility] [address] [id number] [address] [place] [address], [place] [address] Jul, [facility] [address] [id number] [address] [place] [address], [place] [address] Jul, [facility] [address] [id number] [address] [place] [address], [place] [address] Jul, [facility] [address] [id number] [facility] [place] [address] Jul, [facility] [address] [id number] [address] [place] [address], [place] [address] Jul, [facility] [address] [id number] [address] [place] [address], [place] [address] Jul, [facility] [address] [id number] [address] [place] [address], [place] [address] Jun, [facility] [address] [id number] [address] [place] [address], [place] [address] Jun, [facility] [address] [id number] [address] [place] [address], [place] [address] Jun, [facility] [address] [id number] [address] [place] [address], [place] [address] Jun, [facility] [address] [id number] [address] [place] [address], [place] [address] Jun, [facility] [address] [id number] [address] [place] [address], [place] [address] Jun, [facility] [address] [id number] [address] [place] [address], [place] [address] May, [facility] [address] [id number] [address] [place] [address], [place] [address] May, [facility] [address] [id number] [address] [place] [address], [place] [address] May, [facility] [address] [id number] [address] [place] [address], [place] [address] May, [facility] [address] [id number] [address] [place] [address], [place] [address] May, [facility] [address] [id number] [address] [place] [address], [place] [address] Apr, [facility] [address] [id number] [address] [place] [address], [place] [address] Apr, [facility] [address] [id number] [address] [place] [address], [place] [address] Apr, [facility] [address] [id number] [address] [place] [address], [place] [address] Apr, [facility] [address] [id number] [address] [place] [address], [place] [address] March, [facility] [address] [id number] [address] [place] [address], [place] [address] March, [facility] [address] [id number] [address] [place] [address], [place] [address] March, [facility] [address] [id number] [address] [place] [address], [place] [address] March, [facility] [address] [id number] [address] [place] [address], [place] [address] March, [facility] [address] [id number] [address] [place] [address], [place] [address] March, [facility] [address] [id number] [address] [place] [address], [place] [address] Feb, [facility] [address] [id number] [address] [place] [address], [place] [address] Feb, [facility] [address] [id number] [address] [place] [address], [place] [address] Feb, [facility] [address] [id number] [address] [place] [address], [place] [address] Feb, [facility] [address] [id number] [address] [place] [address], [place] [address] Feb, [facility] [address] [id number] [address] [place] [address], [place] [address] Feb, [facility] [address] [id number] [address] [place] [address], [place] [address] Feb, [facility] [address] [id number] [address] [place] [address], [place] [address] Feb, [facility] [address] [id number] [address] [place] [address], [place] [address] Jan, [facility] [address] [id number] [address] [place] [address], [place] [address] Jan, [facility] [address] [id number] [address] [place] [address], [place] [address] Jan, [facility] [address] [id number] [address] [place] [address], [place] [address] Jan, [facility] [address] [id number] [address] [place] [address], [place] [address] Jan, [facility] [address] [id number] [address] [place] [address], [place] [address] Jan, [facility] [address] [id number] [address] [place] [address], [place] [address] Dec, [facility] [address] [id number] [address] [place] [address], [place] [address] Dec, [facility] [address] [id number] [address] [place] [address], [place] [address] Nov, [facility] [address] [id number] [address] [place] [address], [place] [address] Nov, [facility] [address] [id number] [address] [place] [address], [place] [address] Nov, [facility] [address] [id number] [address] [place] [address], [place] [address] Nov, [facility] [address] [id number] [address] [place] [address], [place] [address] Nov, [facility] [address] [id number] [address] [place] [address], [place] [address] Nov, [facility] [address] [id number] [address] [place] [address], [place] [address] Nov, [facility] [address] [id number] [address] [place] [address], [place] [address] Nov, [facility] [address] [id number] [address] [place] [address], [place] [address] Nov, [facility] [address] [id number] [address] [place] [address], [place] [address] Nov, [facility] [address] [id number] [address] [place] [address], [place] [address] Nov, [facility] [address] [id number] [address] [place] [address], [place] [address] Nov, [facility] [address] [id number] [address] [place] [address], [place] [address] Nov, [facility] [address] [id number] [address] [place] [address], [place] [address] Nov, [facility] [address] [id number] [address] [place] [address], [place] [address] Nov, [facility] [address] [id number] [address] [place] [address], [place] [address] Oct, [facility] [address] [id number] [address] [place] [address], [place] [address] Oct, [facility] [address] [id number] [address] [place] [address], [place] [address] Oct, [facility] [address] [id number] [address] [place] [address], [place] [address] Oct, [facility] [address] [id number] [address] [place] [address], [place] [address] Oct, [facility] [address] [id number] [address] [place] [address], [place] [address] Oct, [facility] [address] [id number] [address] [place] [address], [place] [address] Oct, [facility] [address] [id number] [address] [place] [address], [place] [address] Oct, [facility] [address] [facility] [id number] [address] [place] [id number] Oct, [facility] [address] [facility] [id number] [address] [place] [address] Aug, [facility] [address] [facility] [id number] [address] [place] [id number] Aug, IMMUNIZATIONS No Known Immunizations SOCIAL HISTORY Never Assessed REASON FOR VISIT PLAN OF CARE VITAL SIGNS Height 69 in 2014-06-05 Weight 222.3 lbs 2014-06-05 Temperature 98 degrees Fahrenheit 2014-06-05 Heart Rate 96 bpm 2014-06-05 Respiratory Rate 22 2014-06-05 Blood pressure systolic 142 mmHg 2014-06-05 Blood pressure diastolic 90 mmHg 2014-06-05 MEDICATIONS Unknown Medications RESULTS No Results PROCEDURES Procedure Date Ordered Result Body Site VISIT June 05, 2014 INSTRUCTIONS MEDICATIONS ADMINISTERED No Known Medications MEDICAL (GENERAL) HISTORY Type Description Date Medical History hypertension Medical History asthma Medical History Arthritis Medical History Hypoglycemia Medical History Heart Cath 11/05/2013 Medical History herniated disc--Seen by Dr. Troy Michelle pain specialist in [place], [place] Medical History Chronic low back pain Medical History depression Medical History anxiety Medical History Panic attacks Medical History Vitamin B 12 deficiency r/t gastric bypa ss Medical History Low back injections 11/2012, 06/2013 Medical History Thrombocytosis Surgical History tonsillectomy Surgical History gastric bypass--2003-in [facility] Unsure of Dr's name. No longer in [...]
--- OUTSIDE RECORDS SUMMARY | 2020-06-19 02:07 | XMS REPORT ---
Author Author ARMANDO Mahsa ASHVIN Organization [facility] Address [address] [place] [address] Care Team Providers Care Layout Mechanic Name Role Phone ARMANDONYASIA DIAZY Unavailable PROBLEMS Type Condition ICD9-CM Code HOM87-PH Code Onset Dates Condition S tatus SNOMED Code Problem Chronic pain syndrome G89.4 Active 737629967 Problem Other constipation K59.09 Active 1 [id number] Problem Anxiety F41.9 Active 43497023 Problem Primary insomnia F51.01 Active 193 112545 Problem Atherosclerosis of ment[place] co ronary artery of mentasta heart without angina pectoris I25.10 Active [id number] Problem Essential hypertension I10 Active 69254384 Problem Hyperlipidemia, unspecified hyperlipidemia E78.5 Active 79121560 Problem Major depressive disorder, recurrent episode, un specified severity F33.9 Active 84477099 Problem Allergic rhinitis J30.9 Active 61 871021 Problem Fibromyalgia M79.7 Active 6177685 7 Problem GERD (gastroesophageal reflux disease) K21.9 Active 379486260 Problem Degenerative disc disease, thoracic M51.34 Active 21046053 Problem Bilateral low back pain, with sciatica presence unspecifie d M54.5 Active 589211264 Problem Moderate episode of recurrent major depressive disorder F33.1 Active 376873548 Problem B12 deficiency E53.8 Active 92969 4004 Problem Chronic obstructive pulmonary disease, unspecified COPD ty pe J44.9 Active 46236338 Problem CKD (chronic kidney disease) stage 3, GFR 30-59 ml/min N18.3 Active 102129130 Problem Cannabis abuse F12.10 Active 06620 009 Problem Degenerative disc disease, cervical M50.30 Active 61279022 ALLERGIES No Information ENCOUNTERS Encounter Location Date Diagnosis [facility] [address] [id number] [place] [address] Nov, [facility] [address] [id number] [place] [address] Oct, Moderate episode of recurrent major depr essive disorder F33.1 ; Chronic obstructive pulmonary disease, unspecified COPD type J44.9 ; CKD (chronic kidney disease) stage 3, GFR 30-59 ml/min N18.3 ; Essential hypertension I10 and Possible exposure to STD Z20.2 [place] [address] [address] Oct, Essential hypertension I10 [place] [address] [address] Oct, [place] [address] [address] Sep, Essential hypertension I10 [place] [address] [address] Sep, [place] [address] [address] Sep, [place] [address] [address] Sep, [place] [address] [address] Aug, Essential hypertension I10 [place] [address] [address] Aug, Essential hypertension I10 [place] [address] [address] Jul, Allergic rhinitis J30.9 ; CKD (chronic k idney disease) stage 3, GFR 30-59 ml/min N18.3 ; Essential hypertension I10 and Moderate episode of recurrent major depressive disorder F33.1 [place] [address] [address] 11 Jul, 2019 Elevated platelet count R79.89 ; B12 def iciency E53.8 ; Hyperlipidemia, unspecified hyperlipidemia E78.5 and CKD (chronic kidney disease) stage 3, GFR 30-59 ml/min N18.3 [place] [address] [address] Apr, B12 deficiency E53.8 [place] [address] [address] Jan, Periumbilical hernia K42.9 ; CKD (chroni c kidney disease) stage 3, GFR 30-59 ml/min N18.3 ; Essential hypertension I10 ; GERD (gastroesophageal reflux disease) K21.9 ; Hyperlipidemia, unspecified hyperlipidemia E78.5 and Major depressive disorder, recurrent episode, unspecified severity F33.9 [place] [address] [place] [address] 12 Dec, 2018 Anxiety F41.9 [place] [address] [address] Nov, Elevated platelet count R79.89 [place] [address] [address] 15 Nov, 2018 [place] [address] [address] Nov, Elevated platelet count R79.89 [place] [address] [address] Nov, Anxiety F41.9 [place] [address] [address] Nov, Bilateral low back pain, with sciatica p resence unspecified M54.5 ; Cervicalgia M54.2 ; Degenerative disc disease, cervical M50.30 and Degenerative disc disease, thoracic M51.[address] [address] Nov, Chronic pain syndrome G89.4 and Bilatera l low back pain, with sciatica presence unspecified M54.[address] [address] Oct, Umbilical hernia without obstruction and without gangrene K42.9 [place] [address] [address] Oct, Chronic pain syndrome G89.4 [place] [address] [address] 13 Oct, 2018 Chronic pain syndrome G89.4 and Anxiety F41.9 [place] [address] [address] Oct, Elevated platelet count R79.89 [place] [address] [address] Oct, CKD (chronic kidney disease) stage 3, GF R 30-59 ml/min N18.3 ; Other chest pain R07.89 ; Acute midline thoracic back pain M54.6 ; Essential hypertension I10 and History of osteoporosis Z87.39 [place] [address] [address] Sep, Chronic pain syndrome G89.4 [place] [address] [address] Sep, [address] [address] Sep, Anxiety F41.9 and Chronic pain syndrome G89.4 [place] [address] [address] 18 Aug, 2018 Chronic pain syndrome G89.4 and Anxiety F41.9 [place] [address] [address] Aug, [place] [address] [address] Aug, Cannabis abuse F12.10 and Controlled sub stance agreement terminated Z91.14 [place] [address] [address] Jul, Chronic pain syndrome G89.4 ; Bilateral low back pain, with sciatica presence unspecified M54.5 ; Chronic prescription opiate use Z79.899 ; Essential hypertension I10 ; Hyperlipidemia, unspecified hyperlipidemia E78.5 ; CKD (chronic kidney disease) stage 3, GFR 30-59 ml/min N18.3 and Allergic rhinitis J30.9 [place] [address] [address] Jul, Chronic pain syndrome G89.4 and Anxiety F41.9 [place] [address] [address] Jul, Screening for breast cancer Z12.31 and Casandra castillo depressive disorder, recurrent episode, unspecified severity F33.9 [place] [address] [address] Jun, Chronic pain syndrome G89.4 and Anxiety F41.9 [place] [address] [address] May, Chronic pain syndrome G89.4 and Anxiety F41.9 [place] [address] [address] Apr, Anxiety F41.[address] [address] Apr, Chronic prescription opiate use Z79.899 ; Chronic pain syndrome G89.4 ; Essential hypertension I10 ; Allergic rhinitis J30.9 and CKD (chronic kidney disease) stage 3, GFR 30-59 ml/min N18.3 [place] [address] [address] Apr, [place] [address] [address] March, Anxiety F41.9 and Chronic pain syndrome G89.[address] [address] March, CKD (chronic kidney disease) stage 3, GF R 30-59 ml/min N18.3 ; B12 deficiency E53.8 and Hyperlipidemia, unspecified hyperlipidemia E78.5 [place] [address] [address] March, Anxiety F41.9 and Chronic pain syndrome G89.[address] [address] Feb, Anxiety F41.9 and Chronic pain syndrome G89.4 [place] [address] [address] Jan, B12 deficiency E53.8 [place] [address] [address] Jan, [place] [address] [address] Jan, Anxiety F41.9 ; Chronic pain syndrome G8 9.4 and Essential hypertension I10 [place] [address] [address] Jan, CKD (chronic kidney disease) stage 3, [...] Subacromial bursitis of right shoulder joint M75.51 [place] [address] [address] Dec, Essential hypertension I10 [place] [address] [address] Dec, Chronic pain syndrome G89.4 [place] [address] [address] Dec, Chronic pain syndrome G89.4 [place] [address] [address] Nov, [place] [address] [address] Nov, Chronic pain syndrome G89.4 and Anxiety F41.9 [place] [address] [address] Oct, Chronic pain syndrome G89.4 ; Other cons tipation K59.09 and Chronic prescription opiate use Z79.899 [place] [address] [address] Oct, Chronic pain syndrome G89.4 and Anxiety F41.9 [place] [address] [address] Sep, Essential hypertension I10 [place] [address] [address] Sep, Chronic pain syndrome G89.4 and Anxiety F41.9 [place] [address] [address] Aug, Chronic pain syndrome G89.4 and Anxiety F41.9 [place] [address] [address] Jul, Essential hypertension I10 [place] [address] [address] Jul, Chronic obstructive pulmonary disease, u nspecified COPD type J44.9 [place] [address] [address] Jul, Chronic pain syndrome G89.4 and Anxiety F41.9 [place] [address] [address] 13 Jul, 2017 Chronic pain syndrome G89.4 ; Essential hypertension I10 ; Fibromyalgia M79.7 ; CKD (chronic kidney disease) stage 3, GFR 30-59 ml/min N18.3 ; Subacromial bursitis, right M75.51 and Goals of care, co unseling/discussion Z71.89 [place] [address] [address] Jun, Chronic pain syndrome G89.4 and Anxiety F41.9 [place] [address] [address] May, Chronic pain syndrome G89.4 and Anxiety F41.9 [place] [address] [address] Apr, Chronic pain syndrome G89.4 and Anxiety F41.[address] [address] Apr, Drug induced constipation K59.03 ; Chron ic pain syndrome G89.4 and CKD (chronic kidney disease) stage 3, GFR 30-59 ml/min N18.3 [place] [address] [address] Apr, Chronic pain syndrome G89.4 and Anxiety F41.[address] [address] March, Chronic pain syndrome G89.4 and Anxiety F41.[address] [address] March, Decreased GFR R94.[address] [address] Feb, [address] [address] Feb, Chronic pain syndrome G89.4 and Anxiety F41.9 [place] [address] [address] Jan, Decreased GFR R94.[address] [address] Jan, Decreased GFR R94.[address] [address] Jan, Allergic rhinitis J30.9 ; Essential hype rtension I10 ; Major depressive disorder, recurrent episode, unspecified severity F33.9 and Primary insomnia F51.[address] [address] 10 Jan, 2017 Acute right-sided thoracic back pain M54 .6 ; Subacromial bursitis of right shoulder joint M75.51 ; Chronic pain syndrome G89.4 and Anxiety F41.9 [place] [address] [address] Jan, Decreased GFR R94.4 [place] [address] [address] Dec, Decreased GFR R94.4 [place] [address] [address] Dec, Decreased GFR R94.4 [place] [address] [address] Dec, Decreased GFR R94.4 [place] [address] [address] Dec, Decreased GFR R94.4 [place] [address] [address] Dec, Anxiety F41.9 and Bilateral low back candis n, with sciatica presence unspecified M54.5 [place] [address] [address] Dec, Thrombocytosis D47.3 ; Hyperlipidemia, u nspecified hyperlipidemia E78.5 ; Need for hepatitis C screening test Z11.59 and B12 deficiency E53.8 [place] [address] [address] Nov, Need for hepatitis C screening test Z11. 59 [place] [address] [address] Nov, Anxiety F41.9 and Bilateral low back candis n, with sciatica presence unspecified M54.5 [place] [address] [address] Oct, Bilateral low back pain, with sciatica p resence unspecified M54.5 ; Chronic prescription opiate use Z79.899 ; Anxiety F41.9 ; Essential hypertension I10 ; Hyperlipidemia, unspecified hyperlipidemia E78.5 ; Health care maintenance Z00.00 and Thrombocytosis D47.3 [place] [address] [address] Sep, [facility] [address] [address] Sep, [facility] [address] [address] Aug, [facility] [address] [address] Jul, B12 deficiency E53.8 [facility] [address] [address] Jul, [place] [address] [address] Jul, Essential hypertension I10 ; Chronic candis n syndrome G89.4 ; Anxiety F41.9 ; Screening for breast cancer Z12.39 ; Atherosclerosis of mentasta coronary artery of mentasta heart without angina pectoris I25.10 ; Major depressive disorder, recurrent episode, unspecified severity F33.9 ; Primary insomnia F51.01 and Allergic rhinitis J30.9 [facility] [address] [address] Jun, [facility] [address] [facility] [id number] [place] [address] Jun, Leg wound, right, initial en counter S81.801A and Encounter for immunization Z23 [facility] [address] [address] Jun, Open wound of right ear, unspecified ope n wound type, initial encounter S01.301A [facility] [address] [address] May, B12 deficiency E53.8 [place] [address] [address] May, [facility] [address] [address] May, [facility] [address] [address] May, Chronic pain syndrome G89.4 ; Chronic pr escription opiate use Z79.899 ; Allergic rhinitis J30.9 ; Essential hypertension I10 and Non-healing skin lesion L98.9 [facility] [address] [address] Apr, [facility] [address] [address] March, [facility] [address] [address] Feb, [facility] [address] [address] Feb, [place] [address] [address] Feb, Chronic pain syndrome G89.4 ; Anxiety F4 1.9 ; B12 deficiency E53.8 ; Allergic rhinitis J30.9 ; Fibromyalgia M79.7 ; Actinic keratosis L57.0 ; Skin rash R21 ; Open wound of right ear, unspecified open wound type, initial encounter S01.301A ; Subacromial bursitis, right M75.51 ; GERD (gastroesophageal reflux disease) K21.9 and Chronic obstructive pulmonary disease, unspecified COPD type J44.9 [place] [address] [address] Jan, [facility] [address] [address] Jan, Essential hypertension I10 [facility] [address] [address] Jan, [facility] [address] [address] Jan, [facility] [address] [address] Jan, [facility] [address] [address] Dec, [place] [address] [address] 16 Dec, 2015 Essential hypertension I10 [place] [address] [address] Dec, [place] [address] [address] Dec, B12 deficiency E53.8 and Essential hyper tension I10 [place] [address] [address] Dec, [place] [address] [address] Nov, Right shoulder pain M25.511 [place] [address] [address] Nov, Right shoulder pain M25.511 [place] [address] [address] Nov, Essential hypertension I10 and B12 defic iency E53.8 [place] [address] [address] Nov, Major depressive disorder, recurrent epi sode, unspecified severity F33.9 ; Anxiety F41.9 ; Chronic pain syndrome G89.4 ; Essential hypertension I10 ; Hyperlipidemia, unspecified hyperlipidemia E78.5 ; Chronic prescription opiate use Z79.899 ; Allergic rhinitis J30.9 ; B12 deficiency E53.8 and Right shoulder pain M25.511 [place] [address] [address] Oct, [place] [address] [address] Oct, [place] [address] [address] Sep, [place] [address] [address] Sep, [place] [address] [address] Aug, [facility] [address] [place] [id number] [place] [address] Aug, [facility] [address] [address] Aug, [facility] [address] [address] Aug, Other constipation K59.09 ; Hyperlipidem ia, unspecified hyperlipidemia E78.5 ; Essential hypertension I10 ; Primary insomnia F51.01 ; Anxiety F41.9 ; Chronic pain syndrome G89.4 ; Right shoulder pain M25.511 and Acute cystitis without hematuria N30.00 [facility] [address] [address] Jul, [facility] [address] [address] Jul, [facility] [address] [address] Jun, [facility] [address] [address] Jun, [facility] [address] [address] Jun, [facility] [address] [address] May, [facility] [address] [address] May, Other chronic pain 338.29 ; Hypertension 401.9 and Constipation due to opioid therapy 564.09 [facility] [address] [address] May, [facility] [address] [address] May, [facility] [address] [address] Apr, [facility] [address] [address] Apr, Unspecified essential hypertension 401.9 [facility] [address] [id number] [place] [address] 16 Apr, 2015 [facility] [address] [id number] [place] [address] Apr, [facility] [address] [id number] [place] [address] Apr, [facility] [address] [id number] [place] [address] Apr, [facility] [address] [id number] [place] [address] Apr, [facility] [address] [id number] [place] [address] Apr, [facility] [address] [id number] [place] [address] March, Unspecified essential hypertension 401.9 [facility] [address] [id number] [place] [address] March, [facility] [address] [id number] [place] [address] March, [facility] [address] [id number] [place] [address] 14 Feb, 2015 [facility] [address] [id number] [place] [address] Feb, [facility] [address] [id number] [place] [address] 23 Jan, 2015 [facility] [address] [id number] [place] [address] 23 Jan, 2015 [facility] [address] [id number] [place] [address] 17 Jan, 2015 [facility] [address] [id number] [place] [address] 17 Jan, 2015 [facility] [address] [id number] [place] [address] Jan, [facility] [address] [facility] [id number] [place] [address] Jan, [facility] [address] [facility] [id number] [place] [address] Jan, [facility] [address] [id number] [place] [address] Dec, [facility] [address] [id number] [place] [address] Dec, [facility] [address] [facility] [id number] [place] [address] Dec, [facility] [address] [id number] [place] [address] Nov, [facility] [address] [id number] [place] [address] Nov, [facility] [address] [id number] [place] [address] Oct, [facility] [address] [id number] [place] [address] Oct, [facility] [address] [id number] [place] [address] Oct, [facility] [address] [id number] [place] [address] Oct, [facility] [address] [id number] [place] [address] Oct, [facility] [address] [id number] [place] [address] Oct, [facility] [address] [id number] [place] [address] Oct, [facility] [address] [id number] [place] [address] Oct, [facility] [address] [id number] [place] [address] Sep, [facility] [address] [id number] [place] [address] Sep, [facility] [address] [facility] [id number] [place] [address] Sep, [facility] [address] [id number] [place] [address] Sep, [facility] [address] [id number] [place] [address] Sep, [facility] [address] [id number] [place] [address] Sep, [facility] [address] [id number] [place] [address] Aug, [facility] [address] [id number] [place] [address] Aug, [facility] [address] [id number] [place] [address] Aug, [facility] [address] [id number] [place] [address] Aug, [facility] [address] [id number] [place] [address] Aug, [facility] [address] [id number] [place] [address] Aug, [facility] [address] [id number] [place] [address] Aug, [facility] [address] [id number] [place] [address] Aug, [facility] [address] [id number] [place] [address] Aug, [facility] [address] [id number] [place] [address] Aug, [facility] [address] [id number] [place] [address] Jul, [facility] [address] [id number] [place] [address] Jul, [facility] [address] [id number] [place] [address] Jul, [facility] [address] [facility] [id number] [place] [address] Jul, [facility] [address] [facility] [id number] [place] [address] Jul, [facility] [address] [id number] [place] [address] Jul, [facility] [address] [facility] [id number] [place] [address] Jun, [facility] [address] [facility] [id number] [place] [address] Jun, [facility] [address] [id number] [place] [address] Jun, [facility] [address] [id number] [place] [address] Jun, [facility] [address] [id number] [place] [address] Jun, [facility] [address] [id number] [place] [address] Jun, [facility] [address] [id number] [place] [address] May, [facility] [address] [id number] [place] [address] May, [facility] [address] [id number] [place] [address] May, [facility] [address] [facility] [id number] [place] [address] May, [facility] [address] [id number] [place] [address] May, [facility] [address] [id number] [place] [address] Apr, [facility] [address] [id number] [place] [address] Apr, [facility] [address] [id number] [facility] [place] [address] Apr, [facility] [address] [facility] [id number] [facility] [place] [address] Apr, [facility] [address] [facility] [id number] [facility] [place] [address] March, [facility] [address] [id number] [facility] [place] [address] March, [facility] [address] [id number] [facility] [place] [address] March, [facility] [address] [id number] [place] [address] March, [facility] [address] [id number] [place] [address] March, [facility] [address] [id number] [place] [address] March, [facility] [address] [facility] [id number] [place] [address] Feb, [facility] [address] [id number] [place] [address] Feb, [facility] [address] [id number] [place] [address] Feb, [facility] [address] [id number] [place] [address] Feb, [facility] [address] [facility] [id number] [place] [address] Feb, [facility] [address] [id number] [place] [address] Feb, [facility] [address] [id number] [place] [address] Feb, [facility] [address] [id number] [place] [address] Feb, [facility] [address] [id number] [place] [address] Jan, [facility] [address] [facility] [id number] [place] [address] Jan, [facility] [address] [id number] [place] [address] Jan, [facility] [address] [id number] [place] [address] Jan, [facility] [address] [id number] [place] [address] Jan, [facility] [address] [facility] [id number] [place] [address] Jan, [facility] [address] [id number] [place] [address] Dec, [facility] [address] [id number] [place] [address] Dec, [facility] [address] [id number] [place] [address] Nov, [facility] [address] [id number] [place] [address] Nov, [facility] [address] [id number] [place] [address] Nov, [facility] [address] [id number] [place] [address] Nov, [facility] [address] [id number] [place] [address] Nov, [facility] [address] [id number] [place] [address] Nov, [facility] [address] [id number] [place] [address] Nov, [facility] [address] [id number] [place] [address] Nov, [facility] [address] [id number] [place] [address] Nov, [facility] [address] [id number] [place] [address] Nov, [facility] [address] [id number] [place] [address] Nov, [facility] [address] [id number] [place] [address] Nov, [facility] [address] [id number] [place] [address] Nov, [facility] [address] [id number] [place] [address] Nov, [facility] [address] [id number] [place] [address] Nov, [facility] [address] [id number] [place] [address] Oct, [facility] [id number] [place] [address] Oct, [facility] [address] [id number] [place] [address] Oct, [facility] [address] [id number] [place] [address] Oct, [facility] [address] [id number] [place] [address] Oct, [facility] [address] [id number] [place] [address] Oct, [facility] [address] [id number] [place] [address] Oct, [facility] [address] [id number] [place] [address] Oct, [facility] [address] [id number] [place] [address] Oct, [facility] [address] [id number] [place] [address] Aug, [facility] [address] [id number] [place] [address] Aug, IMMUNIZATIONS No Known Immunizations SOCIAL HISTORY [...] by Dr. Troy Michelle pain specialist in [place], [place] Medical History Chronic low back pain [...] History colonoscopy normal 11/2013 Hospitalization History [facility] for chest pain 2000 Hospitalization History overnight observation for chest pain 01/2018
--- OUTSIDE RECORDS SUMMARY | 2020-06-19 02:07 | XMS REPORT ---
Author Author ARMANDO Mahsa ASHVIN Organization [facility] Address [address] [place] [address] Care Team Providers Care Ragman Name Role Phone ASHVIN ROBERTS Unavailable PROBLEMS Type Condition ICD9-CM Code SNR11-XA Code Onset Dates Condition S tatus SNOMED Code Problem Chronic pain syndrome G89.4 Active 945334876 Problem Other constipation K59.09 Active 1 [id number] Problem Anxiety F41.9 Active 30142261 Problem Primary insomnia F51.01 Active 193 548038 Problem Atherosclerosis of kaw co ronary artery of kaw heart without angina pectoris I25.10 Active 7234442440500 Problem Essential hypertension I10 Active 79259641 Problem Hyperlipidemia, unspecified hyperlipidemia E78.5 Active 33283534 Problem Major depressive disorder, recurrent episode, un specified severity F33.9 Active 60175769 Problem Allergic rhinitis J30.9 Active 61 915984 Problem Fibromyalgia M79.7 Active 4405131 7 Problem GERD (gastroesophageal reflux disease) K21.9 Active 387027642 Problem Degenerative disc disease, thoracic M51.34 Active 81944425 Problem Bilateral low back pain, with sciatica presence unspecifie d M54.5 Active 297759771 Problem Moderate episode of recurrent major depressive disorder F33.1 Active 448347785 Problem B12 deficiency E53.8 Active 80454 4004 Problem Chronic obstructive pulmonary disease, unspecified COPD ty pe J44.9 Active 17477142 Problem CKD (chronic kidney disease) stage 3, GFR 30-59 ml/min N18.3 Active 189788114 Problem Cannabis abuse F12.10 Active 23470 009 Problem Degenerative disc disease, cervical M50.30 Active 05457111 ALLERGIES No Information ENCOUNTERS Encounter Location Date Diagnosis [facility] [address] [facility] [id number] [address] [place] [address] 25 Jul, 2019 Allergic rhinitis J30.9 ; CK D (chronic kidney disease) stage 3, GFR 30-59 ml/min N18.3 ; Essential hypertension I10 and Moderate episode of recurrent major depressive disorder F33.1 [place] [address] [facility] [id number] [address] [place] [address] Jul, Elevated platelet count R79. 89 ; B12 deficiency E53.8 ; Hyperlipidemia, unspecified hyperlipidemia E78.5 and CKD (chronic kidney disease) stage 3, GFR 30-59 ml/min N18.3 [place] [address] [address] [place] [id number] [address] [place] [address] Apr, B12 deficiency E53.8 [place] [address] [facility] [id number] [address] [place] [address] Jan, Periumbilical hernia K42.9 ; CKD (chronic kidney disease) stage 3, GFR 30-59 ml/min N18.3 ; Essential hypertension I10 ; GERD (gastroesophageal reflux disease) K21.9 ; Hyperlipidemia, unspecified hyperlipidemia E78.5 and Major depressive disorder, recurrent episode, unspecified severity F33.9 [place] [address] [facility] [id number] [address] [place] [address] Dec, Anxiety F41.9 [place] [address] [facility] [id number] [address] [place] [address] Nov, Elevated platelet count R79. 89 [place] [address] [place] [id number] [address] [place] [address] 15 Nov, 2018 [place] [address] [facility] [id number] [address] [place] [address] Nov, Elevated platelet count R79. 89 [place] [address] [place] [id number] [address] [place] [address] Nov, Anxiety F41.9 [place] [address] [place] [id number] [address] [place] [address] Nov, Bilateral low back pain, wit h sciatica presence unspecified M54.5 ; Cervicalgia M54.2 ; Degenerative disc disease, cervical M50.30 and Degenerative disc disease, thoracic M51.34 [place] [address] [address] Nov, Chronic pain syndrome G89.4 and Bilateral low back pain, with sciatica presence unspecified M54.5 [place] [address] [address] Oct, Umbilical hernia without obs truction and without gangrene K42.9 [place] [address] [address] Oct, Chronic pain syndrome G89.4 [place] [address] [address] Oct, Chronic pain syndrome G89.4 and Anxiety F41.9 [place] [address] [address] Oct, Elevated platelet count R79. 89 [place] [address] [address] Oct, CKD (chronic kidney disease) stage 3, GFR 30-59 ml/min N18.3 ; Other chest pain R07.89 ; Acute midline thoracic back pain M54.6 ; Essential hypertension I10 and History of osteoporosis Z87.39 [place] [address] [address] 29 Sep, 2018 Chronic pain syndrome G89.4 [place] [address] [address] Sep, [place] [address] [address] Sep, Anxiety F41.9 and Chronic pa in syndrome G89.4 [place] [address] [place] [id number] [place] [address] Aug, Chronic pain syndrome G89.4 and Anxiety F41.9 [place] [address] [address] Aug, [place] [address] [place] [id number] [address] [place] [address] Aug, Cannabis abuse F12.10 and Co ntrolled substance agreement terminated Z91.14 [place] [address] [facility] [id number] [address] [place] [address] Jul, Chronic pain syndrome G89.4 ; Bilateral low back pain, with sciatica presence unspecified M54.5 ; Chronic prescription opiate use Z79.899 ; Essential hypertension I10 ; Hyperlipidemia, unspecified hyperlipidemia E78.5 ; CKD (chronic kidney disease) stage 3, GFR 30-59 ml/min N18.3 and Allergic rhinitis J30.9 [place] [address] [place] [id number] [place] [address] Jul, Chronic pain syndrome G89.4 and Anxiety F41.9 [place] [address] [address] Jul, Screening for breast cancer Z12.31 and Major depressive disorder, recurrent episode, unspecified severity F33.9 [place] [address] [place] [id number] [address] [place] [address] Jun, Chronic pain syndrome G89.4 and Anxiety F41.9 [place] [address] [place] [id number] [address] [place] [address] May, Chronic pain syndrome G89.4 and Anxiety F41.9 [place] [address] [place] [id number] [address] [place] [address] Apr, Anxiety F41.9 [place] [address] [place] [id number] [address] [place] [address] Apr, Chronic prescription opiate use Z79.899 ; Chronic pain syndrome G89.4 ; Essential hypertension I10 ; Allergic rhinitis J30.9 and CKD (chronic kidney disease) stage 3, GFR 30-59 ml/min N18.3 [place] [address] [place] [id number] [address] [place] [address] Apr, [place] [address] [address] March, Anxiety F41.9 and Chronic pa in syndrome G89.4 [place] [address] [address] March, CKD (chronic kidney disease) stage 3, GFR 30-59 ml/min N18.3 ; B12 deficiency E53.8 and Hyperlipidemia, unspecified hyperlipidemia E78.5 [place] [address] [address] March, Anxiety F41.9 and Chronic pa in syndrome G89.[address] [address] Feb, Anxiety F41.9 and Chronic pa in syndrome G89.4 [place] [address] [address] Jan, B12 deficiency E53.8 [place] [address] [address] Jan, [address] [address] Jan, Anxiety F41.9 ; Chronic pain syndrome G89.4 and Essential hypertension I10 [address] [address] Jan, CKD (chronic kidney disease) stage 3, [...] Subacromial bursitis of right shoulder joint M75.51 [place] [address] [address] Dec, Essential hypertension I10 [facility] [address] [facility] [id number] [address] [place] [address] 15 Dec, 2017 Chronic pain syndrome G89.4 [facility] [address] [facility] [id number] [address] [place] [address] 06 Dec, 2017 Chronic pain syndrome G89.4 [facility] [address] [facility] [id number] [address] [place] [address] Nov, [facility] [address] [facility] [id number] [address] [place] [address] Nov, Chronic pain syndrome G89.4 and Anxiety F41.9 [facility] [address] [place] [id number] [address] [place] [address] Oct, Chronic pain syndrome G89.4 ; Other constipation K59.09 and Chronic prescription opiate use Z79.899 [facility] [address] [place] [id number] [address] [place] [address] Oct, Chronic pain syndrome G89.4 and Anxiety F41.9 [facility] [address] [place] [id number] [address] [place] [address] Sep, Essential hypertension I10 [facility] [address] [facility] [id number] [address] [place] [address] 16 Sep, 2017 Chronic pain syndrome G89.4 and Anxiety F41.9 [facility] [address] [place] [id number] [address] [place] [address] Aug, Chronic pain syndrome G89.4 and Anxiety F41.9 [facility] [address] [facility] [id number] [address] [place] [address] Jul, Essential hypertension I10 [facility] [address] [facility] [id number] [address] [place] [address] Jul, Chronic obstructive pulmonar y disease, unspecified COPD type J44.9 [facility] [address] [place] [id number] [address] [place] [address] Jul, Chronic pain syndrome G89.4 and Anxiety F41.9 [facility] [address] [facility] [id number] [address] [place] [address] 13 Jul, 2017 Chronic pain syndrome G89.4 ; Essential hypertension I10 ; Fibromyalgia M79.7 ; CKD (chronic kidney disease) stage 3, GFR 30-59 ml/min N18.3 ; Subacromial bursitis, right M75.51 and Goals of care, co unseling/discussion Z71.89 [facility] [address] [facility] [id number] [address] [place] [address] Jun, Chronic pain syndrome G89.4 and Anxiety F41.9 [place] [address] [facility] [id number] [address] [place] [address] May, Chronic pain syndrome G89.4 and Anxiety F41.9 [place] [address] [place] [id number] [address] [place] [address] Apr, Chronic pain syndrome G89.4 and Anxiety F41.9 [place] [address] [facility] [id number] [address] [place] [address] Apr, Drug induced constipation K5 9.03 ; Chronic pain syndrome G89.4 and CKD (chronic kidney disease) stage 3, GFR 30-59 ml/min N18.3 [facility] [address] [facility] [id number] [address] [place] [address] Apr, Chronic pain syndrome G89.4 and Anxiety F41.9 [facility] [address] [facility] [id number] [address] [place] [address] March, Chronic pain syndrome G89.4 and Anxiety F41.9 [place] [address] [facility] [id number] [address] [place] [address] March, Decreased GFR R94.4 [facility] [address] [facility] [id number] [address] [place] [address] Feb, [place] [address] [place] [id number] [address] [place] [address] Feb, Chronic pain syndrome G89.4 and Anxiety F41.9 [facility] [address] [facility] [id number] [address] [place] [address] Jan, Decreased GFR R94.4 [facility] [address] [place] [id number] [address] [place] [address] Jan, Decreased GFR R94.4 [facility] [address] [place] [id number] [place] [address] Jan, Allergic rhinitis J30.9 ; Es sential hypertension I10 ; Major depressive disorder, recurrent episode, unspecified severity F33.9 and Primary insomnia F51.01 [facility] [address] [place] [id number] [address] [place] [address] Jan, Acute right-sided thoracic b ack pain M54.6 ; Subacromial bursitis of right shoulder joint M75.51 ; Chronic pain syndrome G89.4 and Anxiety F41.9 [facility] [address] [place] [id number] [address] [place] [address] Jan, Decreased GFR R94.4 [facility] [address] [facility] [id number] [address] [place] [address] Dec, Decreased GFR R94.4 [facility] [address] [place] [id number] [address] [place] [address] Dec, Decreased GFR R94.4 [facility] [address] [place] [id number] [address] [place] [address] Dec, Decreased GFR R94.4 [facility] [address] [facility] [id number] [address] [place] [address] Dec, Decreased GFR R94.4 [facility] [address] [facility] [id number] [address] [place] [address] Dec, Anxiety F41.9 and Bilateral low back pain, with sciatica presence unspecified M54.5 [facility] [address] [facility] [id number] [address] [place] [address] Dec, Thrombocytosis D47.3 ; Hyper lipidemia, unspecified hyperlipidemia E78.5 ; Need for hepatitis C screening test Z11.59 and B12 deficiency E53.8 [place] [address] [facility] [id number] [address] [place] [address] Nov, Need for hepatitis C screeni ng test Z11.59 [place] [address] [facility] [id number] [address] [place] [address] Nov, Anxiety F41.9 and Bilateral low back pain, with sciatica presence unspecified M54.5 [place] [address] [place] [id number] [place] [address] Oct, Bilateral low back pain, wit h sciatica presence unspecified M54.5 ; Chronic prescription opiate use Z79.899 ; Anxiety F41.9 ; Essential hypertension I10 ; Hyperlipidemia, unspecified hyperlipidemia E78.5 ; Health care maintenance Z00.00 and Thrombocytosis D47.3 [place] [address] [place] [address] Sep, [place] [address] [place] [id number] [address] [place] [address] Sep, [place] [address] [place] [id number] [address] [place] [address] Aug, [place] [address] [facility] [id number] [address] [place] [address] Jul, B12 deficiency E53.8 [place] [address] [facility] [id number] [address] [place] [address] Jul, [place] [address] [place] [id number] [address] [place] [address] Jul, Essential hypertension I10 ; Chronic pain syndrome G89.4 ; Anxiety F41.9 ; Screening for breast cancer Z12.39 ; Atherosclerosis of kaw coronary artery of kaw heart without angina pectoris I25.10 ; Major depressive disorder, recurrent episode, unspecified severity F33.9 ; Primary insomnia F51.01 and Allergic rhinitis J30.9 [facility] [address] [facility] [id number] [address] [place] [address] Jun, [facility] [address] [facility] [id number] [address] [place] [address] Jun, Leg wound, right, initial en counter S81.801A and Encounter for immunization Z23 [facility] [address] [facility] [id number] [address] [place] [address] Jun, Open wound of right ear, uns pecified open wound type, initial encounter S01.301A [facility] [address] [facility] [id number] [address] [place] [address] May, B12 deficiency E53.8 [facility] [address] [facility] [id number] [address] [place] [address] May, [facility] [address] [facility] [id number] [address] [place] [address] May, [facility] [address] [facility] [id number] [address] [place] [address] May, Chronic pain syndrome G89.4 ; Chronic prescription opiate use Z79.899 ; Allergic rhinitis J30.9 ; Essential hypertension I10 and Non-healing skin lesion L98.9 [facility] [address] [facility] [id number] [address] [place] [address] Apr, [facility] [address] [facility] [id number] [address] [place] [address] March, [facility] [address] [facility] [id number] [address] [place] [address] Feb, [facility] [address] [facility] [id number] [address] [place] [address] Feb, [facility] [address] [place] [id number] [address] [place] [address] Feb, Chronic pain syndrome G89.4 ; Anxiety F41.9 ; B12 deficiency E53.8 ; Allergic rhinitis J30.9 ; Fibromyalgia M79.7 ; Actinic keratosis L57.0 ; Skin rash R21 ; Open wound of right ear, unspecified open wound type, initial encounter S01.301A ; Subacromial bursitis, right M75.51 ; GERD (gastroesophageal reflux disease) K21.9 and Chronic obstructive pulmonary disease, unspecified COPD type J44.9 [facility] [address] [place] [address] 30 Jan, 2016 [facility] [address] [place] [id number] [address] [place] [address] Jan, Essential hypertension I10 [place] [address] [address] Jan, [facility] [address] [address] Jan, [facility] [address] [place] [address] Jan, [facility] [address] [facility] [id number] [address] [place] [address] Dec, [facility] [address] [place] [id number] [address] [place] [address] Dec, Essential hypertension I10 [facility] [address] [facility] [id number] [address] [place] [address] Dec, [facility] [address] [place] [id number] [address] [place] [address] Dec, B12 deficiency E53.8 and Ess ential hypertension I10 [facility] [address] [facility] [id number] [address] [place] [address] Dec, [facility] [address] [place] [id number] [address] [place] [address] Nov, Right shoulder pain M25.511 [place] [address] [place] [address] [address] Nov, Right shoulder pain M25.511 [place] [id number] [address] 18 Nov, 2015 Essential hypertension I10 a nd B12 deficiency E53.8 [place] [address] [address] 14 Nov, 2015 Major depressive disorder, r ecurrent episode, unspecified severity F33.9 ; Anxiety F41.9 ; Chronic pain syndrome G89.4 ; Essential hypertension I10 ; Hyperlipidemia, unspecified hyperlipidemia E78.5 ; Chronic prescription opiate use Z79.899 ; Allergic rhinitis J30.9 ; B12 deficiency E53.8 and Right shoulder pain M25.511 [place] [address] [address] Oct, [place] [address] [address] Oct, [place] [address] [address] Sep, [place] [address] [address] Sep, [facility] [address] [address] Aug, [place] [address] [address] Aug, [facility] [address] [address] Aug, [facility] [address] [address] Aug, Other constipation K59.09 ; Hyperlipidemia, unspecified hyperlipidemia E78.5 ; Essential hypertension I10 ; Primary insomnia F51.01 ; Anxiety F41.9 ; Chronic pain syndrome G89.4 ; Right shoulder pain M25.511 and Acute cystitis without hematuria N30.00 [place] [address] [place] [id number] [address] [place] [address] 16 Jul, 2015 [facility] [address] [id number] [address] [place] [address] Jul, [facility] [address] [id number] [address] [place] [address] Jun, [facility] [address] [id number] [address] [place] [address] Jun, [facility] [address] [id number] [address] [place] [address] Jun, [facility] [address] [id number] [address] [place] [address] May, [facility] [address] [id number] [address] [place] [address] May, Other chronic pain 338.29 ; Hypertension 401.9 and Constipation due to opioid therapy 564.09 [facility] [address] [id number] [address] [place] [address] 17 May, 2015 [facility] [address] [id number] [address] [place] [address] May, [facility] [address] [id number] [address] [place] [address] Apr, [facility] [address] [id number] [address] [place] [address] Apr, Unspecified essential hypert ension 401.9 [facility] [address] [id number] [address] [place] [address] 16 Apr, 2015 [facility] [address] [id number] [address] [place] [address] Apr, [facility] [address] [id number] [address] [place] [address] 16 Apr, 2015 [facility] [address] [facility] [id number] [address] [place] [address] Apr, [facility] [address] [id number] [address] [place] [address], [place] [address] Apr, [facility] [address] [id number] [address] [place] [address], [place] [address] Apr, [facility] [address] [id number] [address] [place] [address], [place] [address] March, Unspecified essential hypert ension 401.9 [facility] [address] [id number] [address] [place] [address], [place] [address] March, [facility] [address] [id number] [address] [place] [address], [place] [address] March, [facility] [address] [id number] [address] [place] [address], [place] [address] Feb, [facility] [address] [id number] [address] [place] [address], [place] [address] Feb, [facility] [address] [id number] [address] [place] [address], [place] [address] Jan, [facility] [address] [id number] [address] [place] [address], [place] [address] Jan, [facility] [address] [id number] [address] [place] [address], [place] [phone] Jan, [facility] [address] [id number] [address] [place] [address], [place] [address] Jan, [facility] [address] [id number] [address] [place] [address], [place] [address] Jan, [facility] [address] [id number] [address] [place] [address], [place] [address] Jan, [facility] [address] [id number] [address] [place] [address], [place] [address] Jan, [facility] [address] [id number] [address] [place] [address], [place] [address] Dec, [facility] [address] [id number] [address] [place] [address], [place] [address] 16 Dec, 2014 [facility] [address] [id number] [address] [place] [address], [place] [phone] 13 Dec, 2014 [facility] [address] [id number] [address] [place] [address], [place] [address] 16 Nov, 2014 [facility] [address] [address] [id number] [address] [place] [address], [place] [address] Nov, [facility] [address] [id number] [address] [place] [address], [place] [address] Oct, [facility] [address] [id number] [address] [place] [address], [place] [address] Oct, [facility] [address] [id number] [address] [place] [address], [place] [address] Oct, [facility] [address] [id number] [address] [place] [address], [place] [address] Oct, [facility] [address] [id number] [address] [place] [address], [place] [address] Oct, [facility] [address] [id number] [address] [place] [address], [place] [address] Oct, [facility] [address] [id number] [address] [place] [address], [place] [address] Oct, [facility] [address] [id number] [address] [place] [address], [place] [address] Oct, [facility] [address] [id number] [address] [place] [address], [place] [address] Sep, [facility] [address] [id number] [address] [place] [address], [place] [address] Sep, [facility] [address] [id number] [address] [place] [address], [place] [address] Sep, [facility] [address] [id number] [address] [place] [address], [place] [address] Sep, [facility] [address] [id number] [address] [place] [address], [place] [address] Sep, [facility] [address] [id number] [address] [place] [address], [place] [address] Sep, [facility] [address] [id number] [address] [place] [address], [place] [address] Aug, [facility] [address] [id number] [address] [place] [address], [place] [address] Aug, [facility] [address] [id number] [address] [place] [address], [place] [address] Aug, [facility] [address] [id number] [address] [place] [address], [place] [address] Aug, [facility] [address] [id number] [address] [place] [address], [place] [address] Aug, [facility] [address] [id number] [address] [place] [address], [place] [address] Aug, [facility] [address] [id number] [address] [place] [address], [place] [address] Aug, [facility] [address] [id number] [address] [place] [address], [place] [address] Aug, [facility] [address] [id number] [address] [place] [address], [place] [address] Aug, [facility] [address] [id number] [address] [place] [address], [place] [address] Aug, [facility] [address] [id number] [address] [place] [address], [place] [address] Jul, [facility] [address] [id number] [address] [place] [address], [place] [address] Jul, [facility] [address] [id number] [address] [place] [address], [place] [address] Jul, [facility] [address] [id number] [facility] [place] [address] Jul, [facility] [address] [id number] [address] [place] [address], [place] [address] Jul, [facility] [address] [id number] [address] [place] [address], [place] [address] Jul, [facility] [address] [id number] [address] [place] [address], [place] [address] Jun, [facility] [address] [id number] [address] [place] [address], [place] [address] Jun, [facility] [address] [id number] [address] [place] [address], [place] [address] Jun, [facility] [address] [id number] [address] [place] [address], [place] [address] Jun, [facility] [address] [id number] [address] [place] [address], [place] [address] Jun, [facility] [address] [id number] [address] [place] [address], [place] [address] Jun, [facility] [address] [id number] [address] [place] [address], [place] [address] May, [facility] [address] [id number] [address] [place] [address], [place] [address] May, [facility] [address] [id number] [address] [place] [address], [place] [address] May, [facility] [address] [id number] [address] [place] [address], [place] [address] May, [facility] [address] [id number] [address] [place] [address], [place] [address] May, [facility] [address] [id number] [address] [place] [address], [place] [address] Apr, [facility] [address] [id number] [address] [place] [address], [place] [address] Apr, [facility] [address] [id number] [address] [place] [address], [place] [address] Apr, [facility] [address] [id number] [address] [place] [address], [place] [address] Apr, [facility] [address] [id number] [address] [place] [address], [place] [address] March, [facility] [address] [id number] [address] [place] [address], [place] [address] March, [facility] [address] [id number] [address] [place] [address], [place] [address] March, [facility] [address] [id number] [address] [place] [address], [place] [address] March, [facility] [address] [id number] [address] [place] [address], [place] [address] March, [facility] [address] [id number] [address] [place] [address], [place] [address] March, [facility] [address] [id number] [address] [place] [address], [place] [address] Feb, [facility] [address] [id number] [address] [place] [address], [place] [address] Feb, [facility] [address] [id number] [address] [place] [address], [place] [address] Feb, [facility] [address] [id number] [address] [place] [address], [place] [address] Feb, [facility] [address] [id number] [address] [place] [address], [place] [address] Feb, [facility] [address] [id number] [address] [place] [address], [place] [address] Feb, [facility] [address] [id number] [address] [place] [address], [place] [address] Feb, [facility] [address] [id number] [address] [place] [address], [place] [address] Feb, [facility] [address] [id number] [address] [place] [address], [place] [address] Jan, [facility] [address] [id number] [address] [place] [address], [place] [address] Jan, [facility] [address] [id number] [address] [place] [address], [place] [address] Jan, [facility] [address] [id number] [address] [place] [address], [place] [address] Jan, [facility] [address] [id number] [address] [place] [address], [place] [address] Jan, [facility] [address] [id number] [address] [place] [address], [place] [address] Jan, [facility] [address] [id number] [address] [place] [address], [place] [address] Dec, [facility] [address] [id number] [address] [place] [address], [place] [address] Dec, [facility] [address] [id number] [address] [place] [address], [place] [address] Nov, [facility] [address] [id number] [address] [place] [address], [place] [address] Nov, [facility] [address] [id number] [address] [place] [address], [place] [address] Nov, [facility] [address] [id number] [address] [place] [address], [place] [address] Nov, [facility] [address] [id number] [address] [place] [address], [place] [address] Nov, [facility] [address] [id number] [address] [place] [address], [place] [address] Nov, [facility] [address] [id number] [address] [place] [address], [place] [address] Nov, [facility] [address] [id number] [address] [place] [address], [place] [address] Nov, [facility] [address] [id number] [address] [place] [address], [place] [address] Nov, [facility] [address] [id number] [address] [place] [address], [place] [address] Nov, [facility] [address] [id number] [address] [place] [address], [place] [address] Nov, [facility] [address] [id number] [address] [place] [address], [place] [address] Nov, [facility] [address] [id number] [address] [place] [address], [place] [address] Nov, [facility] [address] [id number] [address] [place] [address], [place] [address] Nov, [facility] [address] [id number] [address] [place] [address], [place] [address] Nov, [facility] [address] [id number] [address] [place] [address], [place] [address] Oct, [facility] [address] [id number] [address] [place] [address], [place] [address] Oct, [facility] [address] [id number] [address] [place] [address], [place] [address] Oct, [facility] [address] [id number] [address] [place] [address], [place] [address] Oct, [facility] [address] [id number] [address] [place] [address], [place] [address] Oct, [facility] [address] [id number] [address] [place] [address], [place] [address] Oct, [facility] [address] [id number] [address] [place] [address], [place] [address] Oct, [facility] [address] [id number] [address] [place] [address], [place] [address] Oct, [facility] [address] [facility] [id number] [address] [place] [address] Oct, [facility] [address] [facility] [id number] [address] [place] [address] Aug, [facility] [address] [facility] [id number] [address] [place] [address] Aug, IMMUNIZATIONS No Known Immunizations SOCIAL HISTORY [...] by Dr. Troy Michelle pain specialist in [place], [place] Medical History Chronic low back pain Medical History depression Medical History anxiety Medical History Panic attacks Medical History Vitamin B 12 deficiency r/t gastric bypa ss Medical History Low back injections 11/2012, 06/2013 Medical History Thrombocytosis Surgical History tonsillectomy Surgical History gastric bypass--2003-in [facility] a. Unsure of Dr's name. No longer in [...]
--- OUTSIDE RECORDS SUMMARY | 2020-06-19 02:08 | XMS REPORT ---
Author Author Mahsa Hsieh Organization [facility] Address [address] [place] [address] Care Team Providers Care Commercial Property Manager Name Role Phone NEEMA Hsieh Unavailable PROBLEMS Type Condition ICD9-CM Code UDB05-LP Code Onset Dates Condition S tatus SNOMED Code Problem Other constipation K59.09 Active 1 [id number] Problem Primary insomnia F51.01 Active 193 414501 Problem Chronic pain syndrome G89.4 Active 813510495 Problem Essential hypertension I10 Active 29521664 Problem Anxiety F41.9 Active 49993128 Problem Major depressive disorder, recurrent episode, un specified severity F33.9 Active 76806078 Problem Atherosclerosis of [place] co ronary artery of [place] heart without angina pectoris I25.10 Active [id number] Problem Bilateral low back pain, with sciatica presence unspecifie d M54.5 Active 568022509 Problem Allergic rhinitis J30.9 Active 61 906636 Problem Fibromyalgia M79.7 Active 8472687 7 Problem Degenerative disc disease, thoracic M51.34 Active 92474872 Problem B12 deficiency E53.8 Active 80973 4004 Problem Degenerative disc disease, cervical M50.30 Active 06059946 Problem Hyperlipidemia, unspecified hyperlipidemia E78.5 Active 33663273 Problem GERD (gastroesophageal reflux disease) K21.9 Active 147695645 Problem Chronic obstructive pulmonary disease, unspecified COPD ty pe J44.9 Active 47132538 Problem CKD (chronic kidney disease) stage 3, GFR 30-59 ml/min N18.3 Active 794269697 Problem Cannabis abuse F12.10 Active 67859 009 ALLERGIES No Information ENCOUNTERS Encounter Location Date Diagnosis [facility] [address] [facility] [id number] [address] [place] [id number] Jul, [facility] [address] [facility] [id number] [address] [place] [phone] Jul, Elevated platelet count R79. 89 ; B12 deficiency E53.8 ; Hyperlipidemia, unspecified hyperlipidemia E78.5 and CKD (chronic kidney disease) stage 3, GFR 30-59 ml/min N18.3 [place] [address] [facility] [id number] [address] [place] [phone] Apr, B12 deficiency E53.8 [place] [address] [facility] [id number] [address] [place] [phone] Jan, Periumbilical hernia K42.9 ; CKD (chronic kidney disease) stage 3, GFR 30-59 ml/min N18.3 ; Essential hypertension I10 ; GERD (gastroesophageal reflux disease) K21.9 ; Hyperlipidemia, unspecified hyperlipidemia E78.5 and Major depressive disorder, recurrent episode, unspecified severity F33.9 [place] [address] [facility] [id number] [address] [place] [phone] Dec, Anxiety F41.9 [place] [address] [facility] [id number] [address] [place] [phone] Nov, Elevated platelet count R79. 89 [place] [address] [facility] [id number] [address] [place] [phone] Nov, [place] [address] [facility] [id number] [address] [place] [phone] Nov, Elevated platelet count R79. 89 [place] [address] [facility] [id number] [address] [place] [address] Nov, Anxiety F41.9 [place] [address] [facility] [id number] [address] [place] [id number] Nov, Bilateral low back pain, wit h sciatica presence unspecified M54.5 ; Cervicalgia M54.2 ; Degenerative disc disease, cervical M50.30 and Degenerative disc disease, thoracic M51.34 [place] [address] [facility] [id number] [address] [place] [phone] Nov, Chronic pain syndrome G89.4 and Bilateral low back pain, with sciatica presence unspecified M54.5 [place] [address] [facility] [id number] [address] [place] [phone] Oct, Umbilical hernia without obs truction and without gangrene K42.9 [place] [address] [place] [id number] [address] [place] [phone] Oct, Chronic pain syndrome G89.4 [place] [address] [address] Oct, Chronic pain syndrome G89.4 and Anxiety F41.9 [place] [address] [address] Oct, Elevated platelet count R79. 89 [place] [address] [address] 10 Oct, 2018 CKD (chronic kidney disease) stage 3, GFR 30-59 ml/min N18.3 ; Other chest pain R07.89 ; Acute midline thoracic back pain M54.6 ; Essential hypertension I10 and History of osteoporosis Z87.39 [place] [address] [place] [id number] [address] [place] [phone] 29 Sep, 2018 Chronic pain syndrome G89.4 [place] [address] [address] 16 Sep, 2018 [place] [address] [address] 15 Sep, 2018 Anxiety F41.9 and Chronic pa in syndrome G89.4 [place] [address] [place] [id number] [address] [place] [id number] 18 Aug, 2018 Chronic pain syndrome G89.4 and Anxiety F41.9 [place] [address] [address] 04 Aug, 2018 [place] [address] [address] 03 Aug, 2018 Cannabis abuse F12.10 and Co ntrolled substance agreement terminated Z91.14 [place] [address] [place] [id number] [address] [place] [phone] Jul, Chronic pain syndrome G89.4 ; Bilateral low back pain, with sciatica presence unspecified M54.5 ; Chronic prescription opiate use Z79.899 ; Essential hypertension I10 ; Hyperlipidemia, unspecified hyperlipidemia E78.5 ; CKD (chronic kidney disease) stage 3, GFR 30-59 ml/min N18.3 and Allergic rhinitis J30.9 [place] [address] [facility] [id number] [address] [place] [address] Jul, Chronic pain syndrome G89.4 and Anxiety F41.9 [place] [address] [place] [id number] [address] [place] [address] Jul, Screening for breast cancer Z12.31 and Major depressive disorder, recurrent episode, unspecified severity F33.9 [place] [address] [place] [id number] [address] [place] [phone] Jun, Chronic pain syndrome G89.4 and Anxiety F41.9 [place] [address] [facility] [id number] [address] [place] [address] May, Chronic pain syndrome G89.4 and Anxiety F41.9 [place] [address] [place] [id number] [address] [place] [phone] Apr, Anxiety F41.9 [place] [address] [place] [id number] [address] [place] [address] Apr, Chronic prescription opiate use Z79.899 ; Chronic pain syndrome G89.4 ; Essential hypertension I10 ; Allergic rhinitis J30.9 and CKD (chronic kidney disease) stage 3, GFR 30-59 ml/min N18.3 [place] [address] [facility] [id number] [address] [place] [address] Apr, [place] [address] [facility] [id number] [address] [place] [address] March, Anxiety F41.9 and Chronic pa in syndrome G89.4 [place] [address] [address] March, CKD (chronic kidney disease) stage 3, GFR 30-59 ml/min N18.3 ; B12 deficiency E53.8 and Hyperlipidemia, unspecified hyperlipidemia E78.5 [place] [address] [address] March, Anxiety F41.9 and Chronic pa in syndrome G89.4 [place] [address] [address] Feb, Anxiety F41.9 and Chronic pa in syndrome G89.4 [place] [address] [address] Jan, B12 deficiency E53.8 [place] [address] [address] Jan, [place] [address] [address] Jan, Anxiety F41.9 ; Chronic pain syndrome G89.4 and Essential hypertension I10 [place] [address] [address] Jan, CKD (chronic kidney disease) stage 3, [...] Subacromial bursitis of right shoulder joint M75.51 [place] [address] [address] Dec, Essential hypertension I10 [place] [address] [address] Dec, Chronic pain syndrome G89.4 [place] [address] [facility] [id number] [address] [place] [address] Dec, Chronic pain syndrome G89.4 [facility] [address] [place] [id number] [address] [place] [phone] Nov, [facility] [address] [facility] [id number] [address] [place] [address] Nov, Chronic pain syndrome G89.4 and Anxiety F41.9 [facility] [address] [place] [id number] [address] [place] [address] Oct, Chronic pain syndrome G89.4 ; Other constipation K59.09 and Chronic prescription opiate use Z79.899 [place] [address] [place] [id number] [place] [address] Oct, Chronic pain syndrome G89.4 and Anxiety F41.9 [place] [address] [address] Sep, Essential hypertension I10 [place] [address] [place] [id number] [address] [place] [address] 16 Sep, 2017 Chronic pain syndrome G89.4 and Anxiety F41.9 [place] [address] [place] [id number] [address] [place] [address] Aug, Chronic pain syndrome G89.4 and Anxiety F41.9 [place] [address] [place] [id number] [address] [place] [address] 28 Jul, 2017 Essential hypertension I10 [facility] [address] [facility] [id number] [address] [place] [id number] 22 Jul, 2017 Chronic obstructive pulmonar y disease, unspecified COPD type J44.9 [facility] [address] [facility] [id number] [address] [place] [phone] 21 Jul, 2017 Chronic pain syndrome G89.4 and Anxiety F41.9 [place] [address] [place] [id number] [address] [place] [phone] 13 Jul, 2017 Chronic pain syndrome G89.4 ; Essential hypertension I10 ; Fibromyalgia M79.7 ; CKD (chronic kidney disease) stage 3, GFR 30-59 ml/min N18.3 ; Subacromial bursitis, right M75.51 and Goals of care, co unseling/discussion Z71.89 [facility] [address] [facility] [id number] [address] [place] [address] Jun, Chronic pain syndrome G89.4 and Anxiety F41.9 [place] [address] [facility] [id number] [address] [place] [phone] May, Chronic pain syndrome G89.4 and Anxiety F41.9 [place] [address] [place] [id number] [address] [place] [address] Apr, Chronic pain syndrome G89.4 and Anxiety F41.9 [place] [address] [place] [id number] [address] [place] [address] Apr, Drug induced constipation K5 9.03 ; Chronic pain syndrome G89.4 and CKD (chronic kidney disease) stage 3, GFR 30-59 ml/min N18.3 [place] [address] [facility] [id number] [address] [place] [address] Apr, Chronic pain syndrome G89.4 and Anxiety F41.9 [place] [address] [place] [id number] [address] [place] [phone] March, Chronic pain syndrome G89.4 and Anxiety F41.9 [place] [address] [facility] [id number] [address] [place] [phone] March, Decreased GFR R94.4 [place] [address] [facility] [id number] [address] [place] [address] Feb, [place] [address] [place] [id number] [address] [place] [id number] Feb, Chronic pain syndrome G89.4 and Anxiety F41.9 [place] [address] [place] [id number] [address] [place] [phone] Jan, Decreased GFR R94.4 [place] [address] [facility] [id number] [address] [place] [address] Jan, Decreased GFR R94.4 [place] [address] [facility] [id number] [address] [place] [address] Jan, Allergic rhinitis J30.9 ; Es sential hypertension I10 ; Major depressive disorder, recurrent episode, unspecified severity F33.9 and Primary insomnia F51.01 [place] [address] [place] [id number] [address] [place] [address] Jan, Acute right-sided thoracic b ack pain M54.6 ; Subacromial bursitis of right shoulder joint M75.51 ; Chronic pain syndrome G89.4 and Anxiety F41.9 [place] [address] [place] [id number] [address] [place] [address] Jan, Decreased GFR R94.4 [place] [address] [place] [id number] [address] [place] [address] Dec, Decreased GFR R94.4 [place] [address] [facility] [id number] [address] [place] [address] Dec, Decreased GFR R94.4 [place] [address] [place] [id number] [address] [place] [address] Dec, Decreased GFR R94.4 [place] [address] [place] [id number] [address] [place] [address] Dec, Decreased GFR R94.4 [place] [address] [facility] [id number] [address] [place] [address] Dec, Anxiety F41.9 and Bilateral low back pain, with sciatica presence unspecified M54.5 [place] [address] [place] [id number] [address] [place] [address] Dec, Thrombocytosis D47.3 ; Hyper lipidemia, unspecified hyperlipidemia E78.5 ; Need for hepatitis C screening test Z11.59 and B12 deficiency E53.8 [place] [address] [address] 13 Nov, 2016 Need for hepatitis C screeni ng test Z11.59 [place] [address] [address] 13 Nov, 2016 Anxiety F41.9 and Bilateral low back pain, with sciatica presence unspecified M54.5 [place] [address] [address] Oct, Bilateral low back pain, wit h sciatica presence unspecified M54.5 ; Chronic prescription opiate use Z79.899 ; Anxiety F41.9 ; Essential hypertension I10 ; Hyperlipidemia, unspecified hyperlipidemia E78.5 ; Health care maintenance Z00.00 and Thrombocytosis D47.3 [place] [address] [address] Sep, [address] [address] Sep, [place] [address] [address] Aug, [place] [address] [address] Jul, B12 deficiency E53.8 [place] [address] [address] Jul, [place] [address] [address] Jul, Essential hypertension I10 ; Chronic pain syndrome G89.4 ; Anxiety F41.9 ; Screening for breast cancer Z12.39 ; Atherosclerosis of [place] coronary artery of [place] heart without angina pectoris I25.10 ; Major depressive disorder, recurrent episode, unspecified severity F33.9 ; Primary insomnia F51.01 and Allergic rhinitis J30.9 [place] [address] [address] Jun, [facility] [address] [facility] [id number] [address] [place] [address] Jun, Leg wound, right, initial en counter S81.801A and Encounter for immunization Z23 [facility] [address] [facility] [id number] [address] [place] [address] Jun, Open wound of right ear, uns pecified open wound type, initial encounter S01.301A [facility] [address] [facility] [id number] [address] [place] [address] May, B12 deficiency E53.8 [facility] [address] [facility] [id number] [address] [place] [phone] May, [facility] [address] [facility] [id number] [address] [place] [address] May, [facility] [address] [facility] [id number] [address] [place] [address] May, Chronic pain syndrome G89.4 ; Chronic prescription opiate use Z79.899 ; Allergic rhinitis J30.9 ; Essential hypertension I10 and Non-healing skin lesion L98.9 [facility] [address] [facility] [id number] [address] [place] [address] Apr, [facility] [address] [facility] [id number] [address] [place] [address] March, [facility] [address] [facility] [id number] [address] [place] [address] Feb, [facility] [address] [facility] [id number] [address] [place] [phone] Feb, [facility] [address] [facility] [id number] [address] [place] [address] Feb, Chronic pain syndrome G89.4 ; Anxiety F41.9 ; B12 deficiency E53.8 ; Allergic rhinitis J30.9 ; Fibromyalgia M79.7 ; Actinic keratosis L57.0 ; Skin rash R21 ; Open wound of right ear, unspecified open wound type, initial encounter S01.301A ; Subacromial bursitis, right M75.51 ; GERD (gastroesophageal reflux disease) K21.9 and Chronic obstructive pulmonary disease, unspecified COPD type J44.9 [facility] [address] [facility] [id number] [address] [place] [id number] 30 Jan, 2016 [facility] [address] [facility] [id number] [address] [place] [address] Jan, Essential hypertension I10 [facility] [address] [facility] [id number] [address] [place] [address] Jan, [facility] [address] [facility] [id number] [address] [place] [phone] Jan, [facility] [address] [facility] [id number] [address] [place] [address] Jan, [facility] [address] [facility] [id number] [address] [place] [address] Dec, [facility] [address] [facility] [id number] [address] [place] [address] Dec, Essential hypertension I10 [facility] [address] [facility] [id number] [address] [place] [phone] Dec, [facility] [address] [facility] [id number] [address] [place] [address] Dec, B12 deficiency E53.8 and Ess ential hypertension I10 [facility] [address] [facility] [id number] [address] [place] [address] Dec, [facility] [address] [facility] [id number] [address] [place] [address] Nov, Right shoulder pain M25.511 [facility] [address] [facility] [id number] [address] [place] [address] Nov, Right shoulder pain M25.511 [facility] [address] [place] [id number] [address] [place] [address] Nov, Essential hypertension I10 a nd B12 deficiency E53.8 [facility] [address] [facility] [id number] [address] [place] [address] 14 Nov, 2015 Major depressive disorder, r ecurrent episode, unspecified severity F33.9 ; Anxiety F41.9 ; Chronic pain syndrome G89.4 ; Essential hypertension I10 ; Hyperlipidemia, unspecified hyperlipidemia E78.5 ; Chronic prescription opiate use Z79.899 ; Allergic rhinitis J30.9 ; B12 deficiency E53.8 and Right shoulder pain M25.511 [facility] [address] [facility] [id number] [address] [place] [address] 17 Oct, 2015 [facility] [address] [place] [id number] [place] [address] Oct, [facility] [address] [place] [id number] [address] [place] [address] Sep, [facility] [address] [place] [id number] [place] [address] Sep, [facility] [address] [place] [id number] [address] [place] [address] Aug, [facility] [address] [place] [id number] [address] [place] [address] Aug, [facility] [address] [place] [id number] [address] [place] [address] Aug, [facility] [address] [place] [id number] [place] [address] Aug, Other constipation K59.09 ; Hyperlipidemia, unspecified hyperlipidemia E78.5 ; Essential hypertension I10 ; Primary insomnia F51.01 ; Anxiety F41.9 ; Chronic pain syndrome G89.4 ; Right shoulder pain M25.511 and Acute cystitis without hematuria N30.00 [facility] [address] [place] [id number] [address] [place] [id number] 16 Jul, 2015 [facility] [address] [place] [id number] [address] [place] [address] Jul, [facility] [address] [id number] [address] [place] [phone] 15 Jun, 2015 [facility] [address] [id number] [address] [place] [address] Jun, [facility] [address] [id number] [address] [place] [phone] Jun, [facility] [address] [id number] [address] [place] [phone] May, [facility] [address] [id number] [address] [place] [address] May, Other chronic pain 338.29 ; Hypertension 401.9 and Constipation due to opioid therapy 564.09 [facility] [address] [id number] [address] [place] [phone] 17 May, 2015 [facility] [address] [id number] [address] [place] [phone] May, [facility] [address] [id number] [address] [place] [address] 17 Apr, 2015 [facility] [address] [id number] [address] [place] [phone] 17 Apr, 2015 Unspecified essential hypert ension 401.9 [facility] [address] [id number] [address] [place] [phone] 16 Apr, 2015 [facility] [address] [id number] [address] [place] [id number] 16 Apr, 2015 [facility] [address] [id number] [address] [place] [phone] 16 Apr, 2015 [facility] [address] [id number] [address] [place] [phone] 16 Apr, 2015 [facility] [address] [id number] [address] [place] [phone] 15 Apr, 2015 [facility] [address] [id number] [address] [place] [phone] Apr, [facility] [address] [id number] [address] [place] [address], [place] [id number] March, Unspecified essential hypert ension 401.9 [facility] [address] [id number] [address] [place] [phone] March, [facility] [address] [id number] [address] [place] [address], [place] [id number] March, [facility] [address] [id number] [address] [place] [id number] Feb, [facility] [address] [id number] [address] [place] [address], [place] [id number] Feb, [facility] [address] [id number] [address] [place] [phone] Jan, [facility] [address] [id number] [address] [place] [phone] Jan, [facility] [address] [id number] [address] [place] [id number] Jan, [facility] [address] [id number] [address] [place] [address], [place] [id number] Jan, [facility] [address] [id number] [address] [place] [id number] Jan, [facility] [address] [id number] [address] [place] [address], [place] [id number] Jan, [facility] [address] [id number] [address] [place] [phone] Jan, [facility] [address] [id number] [address] [place] [id number] Dec, [facility] [address] [id number] [address] [place] [phone] Dec, [facility] [address] [address] [id number] [address] [place] [address] Dec, [facility] [address] [id number] [address] [place] [address], [place] [address] Nov, [facility] [address] [id number] [address] [place] [address], [place] [address] Nov, [facility] [address] [id number] [address] [place] [address], [place] [address] Oct, [facility] [address] [id number] [address] [place] [address], [place] [address] Oct, [facility] [address] [id number] [address] [place] [address], [place] [address] Oct, [facility] [address] [id number] [address] [place] [address], [place] [address] Oct, [facility] [address] [id number] [address] [place] [address], [place] [address] Oct, [facility] [address] [id number] [address] [place] [address], [place] [address] Oct, [facility] [address] [id number] [address] [place] [address], [place] [address] Oct, [facility] [address] [id number] [address] [place] [address], [place] [address] Oct, [facility] [address] [id number] [address] [place] [address], [place] [address] Sep, [facility] [address] [id number] [address] [place] [address], [place] [address] Sep, [facility] [address] [id number] [address] [place] [address], [place] [address] Sep, [facility] [address] [id number] [address] [place] [address], [place] [address] Sep, [facility] [address] [id number] [address] [place] [address], [place] [address] Sep, [facility] [address] [id number] [address] [place] [address], [place] [address] Sep, [facility] [address] [id number] [address] [place] [address], [place] [address] Aug, [facility] [address] [id number] [address] [place] [address], [place] [address] Aug, [facility] [address] [id number] [address] [place] [address], [place] [address] Aug, [facility] [address] [id number] [address] [place] [address], [place] [address] Aug, [facility] [address] [id number] [address] [place] [address], [place] [address] Aug, [facility] [address] [id number] [address] [place] [address], [place] [address] Aug, [facility] [address] [id number] [address] [place] [address], [place] [address] Aug, [facility] [address] [id number] [address] [place] [address], [place] [address] Aug, [facility] [address] [id number] [address] [place] [address], [place] [address] Aug, [facility] [address] [id number] [address] [place] [address], [place] [address] Aug, [facility] [address] [id number] [address] [place] [address], [place] [address] Jul, [facility] [address] [id number] [address] [place] [address], [place] [address] 22 Jul, 2014 [facility] [address] [id number] [address] [place] [address], [place] [address] 12 Jul, 2014 [facility] [address] [id number] [address] [place] [address], [place] [address] 12 Jul, 2014 [facility] [address] [id number] [address] [place] [address], [place] [address] 10 Jul, 2014 [facility] [address] [id number] [facility] [place] [address] Jul, [facility] [address] [id number] [facility] [place] [address] Jun, [facility] [address] [id number] [facility] [place] [address] Jun, [facility] [address] [id number] [address] [place] [address], [place] [address] Jun, [facility] [address] [id number] [address] [place] [address], [place] [address] Jun, [facility] [address] [id number] [address] [place] [address], [place] [address] Jun, [facility] [address] [id number] [address] [place] [address], [place] [address] Jun, [facility] [address] [id number] [address] [place] [address], [place] [address] May, [facility] [address] [id number] [address] [place] [address], [place] [address] May, [facility] [address] [id number] [address] [place] [address], [place] [address] May, [facility] [address] [id number] [address] [place] [address], [place] [address] May, [facility] [address] [id number] [address] [place] [address], [place] [address] May, [facility] [address] [id number] [address] [place] [address], [place] [address] Apr, [facility] [address] [id number] [address] [place] [address], [place] [address] Apr, [facility] [address] [id number] [address] [place] [address], [place] [address] Apr, [facility] [address] [id number] [address] [place] [address], [place] [address] Apr, [facility] [address] [id number] [address] [place] [address], [place] [address] March, [facility] [address] [id number] [address] [place] [address], [place] [address] March, [facility] [address] [id number] [address] [place] [address], [place] [address] March, [facility] [address] [id number] [address] [place] [address], [place] [address] March, [facility] [address] [id number] [address] [place] [address], [place] [address] March, [facility] [address] [id number] [address] [place] [address], [place] [address] March, [facility] [address] [id number] [address] [place] [address], [place] [address] Feb, [facility] [address] [id number] [address] [place] [address], [place] [address] Feb, [facility] [address] [id number] [address] [place] [address], [place] [address] Feb, [facility] [address] [id number] [address] [place] [address], [place] [address] Feb, [facility] [address] [id number] [address] [place] [address], [place] [address] Feb, [facility] [address] [id number] [address] [place] [address], [place] [address] Feb, [facility] [address] [id number] [address] [place] [address], [place] [address] Feb, [facility] [address] [id number] [address] [place] [address], [place] [address] Feb, [facility] [address] [id number] [address] [place] [address], [place] [address] Jan, [facility] [address] [id number] [address] [place] [address], [place] [address] Jan, [facility] [address] [id number] [facility] [place] [address] Jan, [facility] [address] [id number] [address] [place] [address], [place] [address] Jan, [facility] [address] [id number] [address] [place] [address], [place] [address] Jan, [facility] [address] [id number] [address] [place] [address], [place] [address] Jan, [facility] [address] [id number] [address] [place] [address], [place] [address] Dec, [facility] [address] [id number] [address] [place] [address], [place] [address] Dec, [facility] [address] [id number] [address] [place] [address], [place] [address] Nov, [facility] [address] [id number] [address] [place] [address], [place] [address] Nov, [facility] [address] [id number] [address] [place] [address], [place] [address] Nov, [facility] [address] [id number] [address] [place] [address], [place] [address] Nov, [facility] [address] [id number] [address] [place] [address], [place] [address] Nov, [facility] [address] [id number] [address] [place] [address], [place] [address] Nov, [facility] [address] [id number] [address] [place] [address], [place] [address] Nov, [facility] [address] [id number] [address] [place] [address], [place] [address] Nov, [facility] [address] [id number] [address] [place] [address], [place] [address] Nov, [facility] [address] [id number] [address] [place] [address], [place] [address] 08 Nov, 2013 [facility] [address] [id number] [address] [place] [address], [place] [address] Nov, [facility] [address] [id number] [address] [place] [address], [place] [address] Nov, [facility] [address] [id number] [address] [place] [address], [place] [address] Nov, [facility] [address] [id number] [address] [place] [address], [place] [address] Nov, [facility] [address] [id number] [address] [place] [address], [place] [address] Nov, [facility] [address] [id number] [address] [place] [address], [place] [address] Oct, [facility] [address] [id number] [address] [place] [address], [place] [address] Oct, [facility] [address] [id number] [address] [place] [address], [place] [address] Oct, [facility] [address] [id number] [address] [place] [address], [place] [address] Oct, [facility] [address] [id number] [address] [place] [address], [place] [address] Oct, [facility] [address] [id number] [address] [place] [address], [place] [address] Oct, [facility] [address] [id number] [address] [place] [address], [place] [address] Oct, [facility] [address] [id number] [address] [place] [address], [place] [address] Oct, [facility] [address] [id number] [address] [place] [address], [place] [address] Oct, [facility] [address] [id number] [address] [place] [address], [place] [address] Aug, [facility] [address] [facility] [id number] [address] [place] [address] Aug, IMMUNIZATIONS No Known Immunizations SOCIAL HISTORY Never Assessed REASON FOR VISIT PLAN OF CARE VITAL SIGNS Height 69 in 2014-09-15 Weight 237.1 lbs 2014-09-15 Temperature 97.1 degrees Fahrenheit 2014-09-15 Heart Rate 72 bpm 2014-09-15 Respiratory Rate 20 2014-09-15 Blood pressure systolic 142 mmHg 2014-09-15 Blood pressure diastolic 92 mmHg 2014-09-15 MEDICATIONS Unknown Medications RESULTS No Results PROCEDURES Procedure Date Ordered Result Body Site MAMMOGRAM, SCREENING Sep 15, 2014 LIPID PANEL Sep 15, 2014 COMPREHEN METABOLIC PANEL Sep 15, 2014 VENIPUNCT, ROUTINE* Sep 15, 2014 INSTRUCTIONS MEDICATIONS ADMINISTERED No Known Medications MEDICAL (GENERAL) HISTORY Type Description Date Medical History hypertension Medical History asthma Medical History Arthritis Medical History Hypoglycemia Medical History Heart Cath 11/05/2013 Medical History herniated disc--Seen by Dr. Troy Michelle pain specialist in [place], [place] Medical History Chronic low back pain Medical History depression Medical History anxiety Medical History Panic attacks Medical History Vitamin B 12 deficiency r/t gastric bypa ss Medical History Low back injections 11/2012, 06/2013 Medical History Thrombocytosis Surgical History tonsillectomy Surgical History gastric bypass--2003-in [facility] [place] Unsure of Dr's name. No longer [...]
--- OUTSIDE RECORDS SUMMARY | 2020-06-19 02:08 | XMS REPORT ---
Author Author ARMANDO Mahsavirgen LOCK Organization [facility] Address [address] [place] [address] Care Team Providers Care Behavioral Psychologist Name Role Phone ARMANDOASHVIN DIAZ Unavailable PROBLEMS Type Condition ICD9-CM Code EGL13-WR Code Onset Dates Condition S tatus SNOMED Code Problem Other constipation K59.09 Active 1 55601697803443 Problem Primary insomnia F51.01 Active 193 493064 Problem Chronic pain syndrome G89.4 Active 779572056 Problem Essential hypertension I10 Active 53578899 Problem Anxiety F41.9 Active 22966002 Problem Major depressive disorder, recurrent episode, un specified severity F33.9 Active 50355800 Problem Atherosclerosis of [place] co ronary artery of [place] heart without angina pectoris I25.10 Active [id number] Problem Bilateral low back pain, with sciatica presence unspecifie d M54.5 Active 799061513 Problem Allergic rhinitis J30.9 Active 61 011854 Problem Fibromyalgia M79.7 Active 5242800 7 Problem Degenerative disc disease, thoracic M51.34 Active 36721306 Problem B12 deficiency E53.8 Active 21306 4004 Problem Degenerative disc disease, cervical M50.30 Active 25876339 Problem Hyperlipidemia, unspecified hyperlipidemia E78.5 Active 69013061 Problem GERD (gastroesophageal reflux disease) K21.9 Active 101198125 Problem Chronic obstructive pulmonary disease, unspecified COPD ty pe J44.9 Active 74845991 Problem CKD (chronic kidney disease) stage 3, GFR 30-59 ml/min N18.3 Active 485993358 Problem Cannabis abuse F12.10 Active 51485 009 ALLERGIES No Information ENCOUNTERS Encounter Location Date Diagnosis [facility] [address] [facility] [id number] [address] [place] [phone] Jul, [facility] [address] [facility] [id number] [address] [place] [phone] Apr, B12 deficiency E53.8 [place] [address] [facility] [id number] [address] [place] [phone] Jan, Periumbilical hernia K42.9 ; CKD (chronic kidney disease) stage 3, GFR 30-59 ml/min N18.3 ; Essential hypertension I10 ; GERD (gastroesophageal reflux disease) K21.9 ; Hyperlipidemia, unspecified hyperlipidemia E78.5 and Major depressive disorder, recurrent episode, unspecified severity F33.9 [place] [address] [place] [id number] [address] [place] [id number] 12 Dec, 2018 Anxiety F41.9 [place] [address] [place] [id number] [address] [place] [phone] Nov, Elevated platelet count R79. 89 [place] [address] [place] [id number] [place] [address] Nov, [place] [address] [address] Nov, Elevated platelet count R79. 89 [place] [address] [place] [id number] [address] [place] [address] Nov, Anxiety F41.9 [place] [address] [place] [id number] [address] [place] [address] Nov, Bilateral low back pain, wit h sciatica presence unspecified M54.5 ; Cervicalgia M54.2 ; Degenerative disc disease, cervical M50.30 and Degenerative disc disease, thoracic M51.34 [place] [address] [place] [id number] [address] [place] [address] Nov, Chronic pain syndrome G89.4 and Bilateral low back pain, with sciatica presence unspecified M54.5 [place] [address] [place] [id number] [address] [place] [phone] Oct, Umbilical hernia without obs truction and without gangrene K42.9 [place] [address] [place] [id number] [address] [place] [address] Oct, Chronic pain syndrome G89.4 [place] [address] [address] 13 Oct, 2018 Chronic pain syndrome G89.4 and Anxiety F41.9 [place] [address] [address] 12 Oct, 2018 Elevated platelet count R79. [address] [address] Oct, CKD (chronic kidney disease) stage 3, GFR 30-59 ml/min N18.3 ; Other chest pain R07.89 ; Acute midline thoracic back pain M54.6 ; Essential hypertension I10 and History of osteoporosis Z87.39 [place] [address] [address] 29 Sep, 2018 Chronic pain syndrome G89.[address] [address] 16 Sep, [address] [address] Sep, Anxiety F41.9 and Chronic pa in syndrome G89.[address] [address] 18 Aug, 2018 Chronic pain syndrome G89.4 and Anxiety F41.[address] [address] Aug, [address] [address] 03 Aug, 2018 Cannabis abuse F12.10 and Co ntrolled substance agreement terminated Z91.[address] [address] 28 Jul, 2018 Chronic pain syndrome G89.4 ; Bilateral low back pain, with sciatica presence unspecified M54.5 ; Chronic prescription opiate use Z79.899 ; Essential hypertension I10 ; Hyperlipidemia, unspecified hyperlipidemia E78.5 ; CKD (chronic kidney disease) stage 3, GFR 30-59 ml/min N18.3 and Allergic rhinitis J30.9 [place] [address] [facility] [id number] [address] [place] [id number] Jul, Chronic pain syndrome G89.4 and Anxiety F41.9 [place] [address] [place] [id number] [address] [place] [address] Jul, Screening for breast cancer Z12.31 and Major depressive disorder, recurrent episode, unspecified severity F33.9 [place] [address] [facility] [id number] [address] [place] [phone] Jun, Chronic pain syndrome G89.4 and Anxiety F41.9 [place] [address] [place] [id number] [place] [address] May, Chronic pain syndrome G89.4 and Anxiety F41.9 [place] [address] [place] [id number] [address] [place] [address] Apr, Anxiety F41.9 [place] [address] [place] [id number] [address] [place] [address] Apr, Chronic prescription opiate use Z79.899 ; Chronic pain syndrome G89.4 ; Essential hypertension I10 ; Allergic rhinitis J30.9 and CKD (chronic kidney disease) stage 3, GFR 30-59 ml/min N18.3 [place] [address] [place] [id number] [address] [place] [id number] Apr, [place] [address] [place] [id number] [address] [place] [address] March, Anxiety F41.9 and Chronic pa in syndrome G89.4 [place] [address] [place] [id number] [address] [place] [phone] March, CKD (chronic kidney disease) stage 3, GFR 30-59 ml/min N18.3 ; B12 deficiency E53.8 and Hyperlipidemia, unspecified hyperlipidemia E78.5 [place] [address] [place] [id number] [address] [place] [phone] March, Anxiety F41.9 and Chronic pa in syndrome G89.4 [place] [address] [place] [id number] [place] [address] Feb, Anxiety F41.9 and Chronic pa in syndrome G89.4 [place] [address] [place] [id number] [address] [place] [address] Jan, B12 deficiency E53.8 [place] [address] [place] [id number] [place] [address] Jan, [place] [address] [address] Jan, Anxiety F41.9 ; Chronic pain syndrome G89.4 and Essential hypertension I10 [place] [address] [address] Jan, CKD (chronic kidney disease) stage 3, [...] Subacromial bursitis of right shoulder joint M75.51 [place] [address] [place] [id number] [address] [place] [address] Dec, Essential hypertension I10 [place] [address] [place] [id number] [address] [place] [phone] Dec, Chronic pain syndrome G89.4 [place] [address] [place] [id number] [place] [address] Dec, Chronic pain syndrome G89.4 [place] [address] [place] [id number] [address] [place] [id number] Nov, [place] [address] [place] [address] Nov, Chronic pain syndrome G89.4 and Anxiety F41.9 [place] [address] [place] [id number] [place] [address] Oct, Chronic pain syndrome G89.4 ; Other constipation K59.09 and Chronic prescription opiate use Z79.899 [place] [address] [place] [id number] [place] [address] Oct, Chronic pain syndrome G89.4 and Anxiety F41.9 [place] [address] [place] [id number] [address] [place] [address] Sep, Essential hypertension I10 [place] [address] [address] 16 Sep, 2017 Chronic pain syndrome G89.4 and Anxiety F41.9 [place] [address] [address] Aug, Chronic pain syndrome G89.4 and Anxiety F41.9 [place] [address] [place] [address] Jul, Essential hypertension I10 [place] [address] [address] 22 Jul, 2017 Chronic obstructive pulmonar y disease, unspecified COPD type J44.9 [place] [address] [place] [id number] [address] [place] [phone] Jul, Chronic pain syndrome G89.4 and Anxiety F41.9 [place] [address] [place] [id number] [address] [place] [address] 13 Jul, 2017 Chronic pain syndrome G89.4 ; Essential hypertension I10 ; Fibromyalgia M79.7 ; CKD (chronic kidney disease) stage 3, GFR 30-59 ml/min N18.3 ; Subacromial bursitis, right M75.51 and Goals of care, co unseling/discussion Z71.89 [place] [address] [place] [id number] [address] [place] [phone] Jun, Chronic pain syndrome G89.4 and Anxiety F41.9 [facility] [address] [facility] [id number] [address] [place] [address] May, Chronic pain syndrome G89.4 and Anxiety F41.9 [facility] [address] [facility] [id number] [address] [place] [address] Apr, Chronic pain syndrome G89.4 and Anxiety F41.9 [facility] [address] [facility] [id number] [address] [place] [address] Apr, Drug induced constipation K5 9.03 ; Chronic pain syndrome G89.4 and CKD (chronic kidney disease) stage 3, GFR 30-59 ml/min N18.3 [facility] [address] [facility] [id number] [address] [place] [address] Apr, Chronic pain syndrome G89.4 and Anxiety F41.9 [facility] [address] [place] [id number] [address] [place] [phone] March, Chronic pain syndrome G89.4 and Anxiety F41.9 [facility] [address] [place] [id number] [address] [place] [address] March, Decreased GFR R94.4 [facility] [address] [facility] [id number] [address] [place] [phone] Feb, [facility] [address] [facility] [id number] [address] [place] [address] Feb, Chronic pain syndrome G89.4 and Anxiety F41.9 [facility] [address] [facility] [id number] [address] [place] [address] Jan, Decreased GFR R94.4 [facility] [address] [facility] [id number] [address] [place] [address] Jan, Decreased GFR R94.4 [facility] [address] [facility] [id number] [address] [place] [address] Jan, Allergic rhinitis J30.9 ; Es sential hypertension I10 ; Major depressive disorder, recurrent episode, unspecified severity F33.9 and Primary insomnia F51.01 [place] [address] [address] Jan, Acute right-sided thoracic b ack pain M54.6 ; Subacromial bursitis of right shoulder joint M75.51 ; Chronic pain syndrome G89.4 and Anxiety F41.9 [place] [address] [address] Jan, Decreased GFR R94.4 [place] [address] [address] Dec, Decreased GFR R94.4 [place] [address] [address] Dec, Decreased GFR R94.4 [place] [address] [address] Dec, Decreased GFR R94.4 [place] [address] [address] Dec, Decreased GFR R94.4 [place] [address] [address] Dec, Anxiety F41.9 and Bilateral low back pain, with sciatica presence unspecified M54.5 [place] [address] [address] Dec, Thrombocytosis D47.3 ; Hyper lipidemia, unspecified hyperlipidemia E78.5 ; Need for hepatitis C screening test Z11.59 and B12 deficiency E53.8 [place] [address] [address] Nov, Need for hepatitis C screeni ng test Z11.59 [place] [address] [address] Nov, Anxiety F41.9 and Bilateral low back pain, with sciatica presence unspecified M54.5 [place] [address] [address] Oct, Bilateral low back pain, wit h sciatica presence unspecified M54.5 ; Chronic prescription opiate use Z79.899 ; Anxiety F41.9 ; Essential hypertension I10 ; Hyperlipidemia, unspecified hyperlipidemia E78.5 ; Health care maintenance Z00.00 and Thrombocytosis D47.3 [facility] [address] [address] Sep, [place] [address] [address] Sep, [place] [address] [address] Aug, [place] [address] [address] Jul, B12 deficiency E53.8 [facility] [address] [address] Jul, [place] [address] [address] Jul, Essential hypertension I10 ; Chronic pain syndrome G89.4 ; Anxiety F41.9 ; Screening for breast cancer Z12.39 ; Atherosclerosis of [place] coronary artery of [place] heart without angina pectoris I25.10 ; Major depressive disorder, recurrent episode, unspecified severity F33.9 ; Primary insomnia F51.01 and Allergic rhinitis J30.9 [facility] [address] [place] [id number] [address] [place] [address] Jun, [facility] [address] [address] Jun, Leg wound, right, initial en counter S81.801A and Encounter for immunization Z23 [address] [address] Jun, Open wound of right ear, uns pecified open wound type, initial encounter S01.301A [facility] [address] [facility] [id number] [address] [place] [address] May, B12 deficiency E53.8 [facility] [address] [id number] [address] [place] [address] May, [facility] [address] [facility] [id number] [address] [place] [address] May, [facility] [address] [facility] [id number] [address] [place] [address] May, Chronic pain syndrome G89.4 ; Chronic prescription opiate use Z79.899 ; Allergic rhinitis J30.9 ; Essential hypertension I10 and Non-healing skin lesion L98.9 [place] [address] [facility] [id number] [address] [place] [address] Apr, [place] [address] [facility] [id number] [address] [place] [address] March, [facility] [address] [facility] [id number] [address] [place] [address] Feb, [place] [address] [facility] [id number] [address] [place] [address] Feb, [place] [address] [facility] [id number] [address] [place] [address] Feb, Chronic pain syndrome G89.4 ; Anxiety F41.9 ; B12 deficiency E53.8 ; Allergic rhinitis J30.9 ; Fibromyalgia M79.7 ; Actinic keratosis L57.0 ; Skin rash R21 ; Open wound of right ear, unspecified open wound type, initial encounter S01.301A ; Subacromial bursitis, right M75.51 ; GERD (gastroesophageal reflux disease) K21.9 and Chronic obstructive pulmonary disease, unspecified COPD type J44.9 [facility] [address] [facility] [id number] [address] [place] [address] Jan, [place] [address] [place] [id number] [address] [place] [address] 11 Jan, 2016 Essential hypertension I10 [facility] [address] [facility] [id number] [address] [place] [phone] Jan, [facility] [address] [facility] [id number] [address] [place] [address] Jan, [facility] [address] [facility] [id number] [address] [place] [phone] Jan, [facility] [address] [facility] [id number] [address] [place] [phone] Dec, [facility] [address] [facility] [id number] [address] Dec, Essential hypertension I10 [facility] [address] [address] Dec, [facility] [address] [address] Dec, B12 deficiency E53.8 and Ess ential hypertension I10 [facility] [address] [place] [id number] [place] [phone] Dec, [facility] [address] [place] [id number] [address] [place] [address] Nov, Right shoulder pain M25.511 [facility] [address] [address] Nov, Right shoulder pain M25.511 [facility] [id number] [place] [address] Nov, Essential hypertension I10 a nd B12 deficiency E53.8 [facility] [address] [facility] [id number] [address] [place] [address] Nov, Major depressive disorder, r ecurrent episode, unspecified severity F33.9 ; Anxiety F41.9 ; Chronic pain syndrome G89.4 ; Essential hypertension I10 ; Hyperlipidemia, unspecified hyperlipidemia E78.5 ; Chronic prescription opiate use Z79.899 ; Allergic rhinitis J30.9 ; B12 deficiency E53.8 and Right shoulder pain M25.511 [facility] [address] [place] [id number] [address] [place] [id number] Oct, [facility] [address] [place] [id number] [address] [place] [address] Oct, [facility] [address] [place] [id number] [place] [address] Sep, [facility] [address] [place] [id number] [place] [address] Sep, [facility] [address] [place] [id number] [place] [address] Aug, [facility] [address] [place] [id number] [place] [address] Aug, [facility] [address] [address] Aug, [facility] [address] [place] [id number] [place] [address] Aug, Other constipation K59.09 ; Hyperlipidemia, unspecified hyperlipidemia E78.5 ; Essential hypertension I10 ; Primary insomnia F51.01 ; Anxiety F41.9 ; Chronic pain syndrome G89.4 ; Right shoulder pain M25.511 and Acute cystitis without hematuria N30.00 [facility] [address] [place] [id number] [address] [place] [address] Jul, [facility] [address] [place] [id number] [place] [phone] Jul, [facility] [address] [place] [id number] [place] [address] Jun, [facility] [address] [place] [id number] [address] [place] [phone] Jun, [facility] [address] [address] Jun, [facility] [address] [id number] [address] [place] [address] May, [facility] [address] [id number] [address] [place] [address] May, Other chronic pain 338.29 ; Hypertension 401.9 and Constipation due to opioid therapy 564.09 [facility] [address] [id number] [address] [place] [address] 17 May, 2015 [facility] [address] [id number] [address] [place] [phone] May, [facility] [address] [id number] [address] [place] [address] Apr, [facility] [address] [id number] [address] [place] [address] Apr, Unspecified essential hypert ension 401.9 [facility] [address] [id number] [address] [place] [id number] 16 Apr, 2015 [facility] [address] [id number] [address] [place] [phone] Apr, [facility] [address] [id number] [address] [place] [phone] Apr, [facility] [address] [id number] [address] [place] [phone] Apr, [facility] [address] [id number] [address] [place] [phone] Apr, [facility] [address] [id number] [address] [place] [phone] Apr, [facility] [address] [id number] [address] [place] [id number] March, Unspecified essential hypert ension 401.9 [facility] [address] [id number] [address] [place] [phone] March, [facility] [address] [id number] [address] [place] [address], [place] [address] March, [facility] [address] [id number] [address] [place] [address], [place] [address] 14 Feb, 2015 [facility] [address] [id number] [address] [place] [address], [place] [address] Feb, [facility] [address] [id number] [address] [place] [address], [place] [address] Jan, [facility] [address] [id number] [address] [place] [address], [place] [address] Jan, [facility] [address] [id number] [address] [place] [address], [place] [address] Jan, [facility] [address] [id number] [address] [place] [address], [place] [address] Jan, [facility] [address] [id number] [address] [place] [address], [place] [address] Jan, [facility] [address] [id number] [address] [place] [address], [place] [address] Jan, [facility] [address] [id number] [address] [place] [address], [place] [address] Jan, [facility] [address] [id number] [address] [place] [address], [place] [address] 16 Dec, 2014 [facility] [address] [id number] [address] [place] [address], [place] [address] Dec, [facility] [address] [id number] [address] [place] [address], [place] [address] Dec, [facility] [address] [id number] [address] [place] [address], [place] [address] Nov, [facility] [address] [id number] [address] [place] [address], [place] [address] Nov, [facility] [address] [id number] [address] [place] [id number] 16 Oct, 2014 [facility] [address] [id number] [address] [place] [address], [place] [address] 16 Oct, 2014 [facility] [address] [id number] [address] [place] [address], [place] [address] Oct, [facility] [address] [id number] [address] [place] [address], [place] [address] Oct, [facility] [address] [id number] [address] [place] [address], [place] [address] Oct, [facility] [address] [id number] [address] [place] [address], [place] [address] Oct, [facility] [address] [id number] [address] [place] [address], [place] [address] Oct, [facility] [address] [id number] [address] [place] [address], [place] [address] Oct, [facility] [address] [id number] [address] [place] [address], [place] [address] Sep, [facility] [address] [id number] [address] [place] [address], [place] [address] Sep, [facility] [address] [id number] [address] [place] [address], [place] [address] Sep, [facility] [address] [id number] [address] [place] [address], [place] [address] Sep, [facility] [address] [id number] [address] [place] [address] Sep, [facility] [address] [id number] [address] [place] [address], [place] [address] Sep, [facility] [address] [id number] [address] [place] [address], [place] [address] Aug, [facility] [address] [id number] [address] [place] [address], [place] [address] Aug, [facility] [address] [id number] [address] [place] [address], [place] [address] Aug, [facility] [address] [id number] [address] [place] [address], [place] [address] Aug, [facility] [address] [id number] [address] [place] [address], [place] [address] Aug, [facility] [address] [id number] [address] [place] [address], [place] [address] Aug, [facility] [address] [id number] [address] [place] [address], [place] [address] Aug, [facility] [address] [id number] [address] [place] [address], [place] [address] Aug, [facility] [address] [id number] [address] [place] [address], [place] [address] Aug, [facility] [address] [id number] [address] [place] [address], [place] [address] Aug, [facility] [address] [id number] [address] [place] [address], [place] [address] Jul, [facility] [address] [id number] [address] [place] [address], [place] [address] Jul, [facility] [address] [id number] [address] [place] [address], [place] [address] Jul, [facility] [address] [id number] [address] [place] [address], [place] [address] Jul, [facility] [address] [id number] [address] [place] [address], [place] [address] Jul, [facility] [address] [id number] [address] [place] [address], [place] [address] Jul, [facility] [address] [id number] [address] [place] [address], [place] [address] Jun, [facility] [address] [id number] [address] [place] [address], [place] [address] Jun, [facility] [address] [id number] [facility] [place] [address] Jun, [facility] [address] [id number] [facility] [place] [address] Jun, [facility] [address] [id number] [facility] [place] [address] Jun, [facility] [address] [id number] [address] [place] [address], [place] [address] Jun, [facility] [address] [id number] [facility] [place] [address] May, [facility] [address] [id number] [address] [place] [address], [place] [address] May, [facility] [address] [id number] [address] [place] [address], [place] [address] May, [facility] [address] [id number] [address] [place] [address], [place] [address] May, [facility] [address] [id number] [address] [place] [address], [place] [address] May, [facility] [address] [id number] [address] [place] [address], [place] [address] Apr, [facility] [address] [id number] [address] [place] [address], [place] [address] Apr, [facility] [address] [id number] [address] [place] [address], [place] [address] Apr, [facility] [address] [id number] [address] [place] [address], [place] [address] Apr, [facility] [address] [id number] [address] [place] [address], [place] [address] March, [facility] [address] [id number] [address] [place] [address], [place] [address] March, [facility] [address] [id number] [address] [place] [address], [place] [address] March, [facility] [address] [id number] [address] [place] [address], [place] [address] March, [facility] [address] [id number] [address] [place] [address], [place] [address] March, [facility] [address] [id number] [address] [place] [address], [place] [address] March, [facility] [address] [id number] [address] [place] [address], [place] [address] Feb, [facility] [address] [id number] [address] [place] [address], [place] [address] Feb, [facility] [address] [id number] [address] [place] [address], [place] [address] Feb, [facility] [address] [id number] [address] [place] [address], [place] [address] Feb, [facility] [address] [id number] [address] [place] [address], [place] [address] Feb, [facility] [address] [id number] [address] [place] [address], [place] [address] Feb, [facility] [address] [id number] [address] [place] [address], [place] [address] Feb, [facility] [address] [id number] [address] [place] [address], [place] [address] Feb, [facility] [address] [id number] [address] [place] [address], [place] [address] Jan, [facility] [address] [id number] [address] [place] [address], [place] [address] Jan, [facility] [address] [id number] [address] [place] [address], [place] [address] Jan, [facility] [address] [id number] [address] [place] [address], [place] [address] Jan, [facility] [address] [id number] [address] [place] [address], [place] [address] Jan, [facility] [address] [id number] [address] [place] [address], [place] [address] Jan, [facility] [address] [id number] [address] [place] [address], [place] [address] Dec, [facility] [address] [id number] [address] [place] [address], [place] [address] Dec, [facility] [address] [id number] [address] [place] [address], [place] [address] Nov, [facility] [address] [id number] [address] [place] [address], [place] [address] Nov, [facility] [address] [id number] [address] [place] [address], [place] [address] Nov, [facility] [address] [id number] [address] [place] [address], [place] [address] Nov, [facility] [address] [id number] [address] [place] [address], [place] [address] Nov, [facility] [address] [id number] [address] [place] [address], [place] [address] Nov, [facility] [address] [id number] [address] [place] [address], [place] [address] Nov, [facility] [address] [id number] [address] [place] [address], [place] [address] Nov, [facility] [address] [id number] [address] [place] [address], [place] [address] Nov, [facility] [address] [id number] [address] [place] [address], [place] [address] Nov, [facility] [address] [id number] [address] [place] [address], [place] [address] Nov, [facility] [address] [id number] [address] [place] [address] Nov, [facility] [address] [id number] [address] [place] [address] Nov, [facility] [address] [id number] [address] [place] [address] Nov, [facility] [address] [id number] [address] [place] [address] Nov, [facility] [address] [id number] [address] [place] [address] Oct, [facility] [address] [id number] [address] [place] [address] Oct, [facility] [address] [id number] [address] [place] [address] Oct, [facility] [address] [id number] [address] [place] [id number] Oct, [facility] [address] [id number] [address] [place] [id number] Oct, [facility] [address] [id number] [address] [place] [id number] Oct, [facility] [address] [id number] [address] [place] [address] Oct, [facility] [address] [id number] [address] [place] [address] Oct, [facility] [address] [id number] [address] [place] [address] Oct, [facility] [address] [id number] [address] [place] [id number] Aug, [facility] [address] [id number] [address] [place] [id number] Aug, IMMUNIZATIONS No Known Immunizations SOCIAL HISTORY [...] by Dr. Troy Michelle pain specialist in [place], [place] Medical History Chronic low back pain Medical History depression Medical History anxiety Medical History Panic attacks Medical History Vitamin B 12 deficiency r/t gastric bypa ss Medical History Low back injections 11/2012, 06/2013 Medical History Thrombocytosis Surgical History tonsillectomy Surgical History gastric bypass--2004-in [place] Unsure of Dr's name. No [...]
--- OUTSIDE RECORDS SUMMARY | 2020-06-19 02:08 | XMS REPORT ---
Author Author ARMANDO Mahsa ASHVIN Organization [facility] Address [address] [place] [address] Care Team Providers Care Supervisor [employer] Name Role Phone ASHVIN ROBERTS Unavailable PROBLEMS Type Condition ICD9-CM Code LVA41-KW Code Onset Dates Condition S tatus SNOMED Code Problem Other constipation K59.09 Active 1 [id number] Problem Primary insomnia F51.01 Active 193 878625 Problem Chronic pain syndrome G89.4 Active 954910963 Problem Essential hypertension I10 Active 73328887 Problem Anxiety F41.9 Active 96489411 Problem Major depressive disorder, recurrent episode, un specified severity F33.9 Active 10669191 Problem Atherosclerosis of [place] co ronary artery of [place] heart without angina pectoris I25.10 Active [id number] Problem Bilateral low back pain, with sciatica presence unspecifie d M54.5 Active 974623991 Problem Allergic rhinitis J30.9 Active 61 514948 Problem Fibromyalgia M79.7 Active 9949309 7 Problem Degenerative disc disease, thoracic M51.34 Active 21037483 Problem B12 deficiency E53.8 Active 51225 4004 Problem Degenerative disc disease, cervical M50.30 Active 40539432 Problem Hyperlipidemia, unspecified hyperlipidemia E78.5 Active 51353356 Problem GERD (gastroesophageal reflux disease) K21.9 Active 313745428 Problem Chronic obstructive pulmonary disease, unspecified COPD ty pe J44.9 Active 24829742 Problem CKD (chronic kidney disease) stage 3, GFR 30-59 ml/min N18.3 Active 196996387 Problem Cannabis abuse F12.10 Active 80850 009 ALLERGIES No Information ENCOUNTERS Encounter Location Date Diagnosis [facility] [address] [facility] [id number] [address] [place] [address] Jul, [facility] [address] [facility] [id number] [address] [place] [address] Jul, Elevated platelet count R79. 89 ; B12 deficiency E53.8 ; Hyperlipidemia, unspecified hyperlipidemia E78.5 and CKD (chronic kidney disease) stage 3, GFR 30-59 ml/min N18.3 [place] [address] [facility] [id number] [address] [place] [address] Apr, B12 deficiency E53.8 [place] [address] [facility] [id number] [address] [place] [address] Jan, Periumbilical hernia K42.9 ; CKD (chronic kidney disease) stage 3, GFR 30-59 ml/min N18.3 ; Essential hypertension I10 ; GERD (gastroesophageal reflux disease) K21.9 ; Hyperlipidemia, unspecified hyperlipidemia E78.5 and Major depressive disorder, recurrent episode, unspecified severity F33.9 [place] [address] [facility] [id number] [address] [place] [address] Dec, Anxiety F41.9 [place] [address] [facility] [id number] [address] [place] [address] Nov, Elevated platelet count R79. 89 [place] [address] [facility] [id number] [address] [place] [phone] Nov, [place] [address] [facility] [id number] [address] [place] [address] Nov, Elevated platelet count R79. 89 [place] [address] [facility] [id number] [address] [place] [address] Nov, Anxiety F41.9 [place] [address] [facility] [id number] [address] [place] [address] Nov, Bilateral low back pain, wit h sciatica presence unspecified M54.5 ; Cervicalgia M54.2 ; Degenerative disc disease, cervical M50.30 and Degenerative disc disease, thoracic M51.34 [place] [address] [facility] [id number] [address] [place] [address] Nov, Chronic pain syndrome G89.4 and Bilateral low back pain, with sciatica presence unspecified M54.5 [place] [address] [place] [id number] [address] [place] [address] Oct, Umbilical hernia without obs truction and without gangrene K42.9 [place] [address] [place] [id number] [address] [place] [address] Oct, Chronic pain syndrome G89.4 [place] [address] [address] Oct, Chronic pain syndrome G89.4 and Anxiety F41.9 [place] [address] [address] Oct, Elevated platelet count R79. 89 [place] [address] [address] Oct, CKD (chronic kidney disease) stage 3, GFR 30-59 ml/min N18.3 ; Other chest pain R07.89 ; Acute midline thoracic back pain M54.6 ; Essential hypertension I10 and History of osteoporosis Z87.39 [place] [address] [address] Sep, Chronic pain syndrome G89.4 [place] [address] [address] 16 Sep, 2018 [place] [address] [address] 15 Sep, 2018 Anxiety F41.9 and Chronic pa in syndrome G89.4 [place] [address] [address] 18 Aug, 2018 Chronic pain syndrome G89.4 and Anxiety F41.9 [place] [address] [address] 04 Aug, 2018 [place] [address] [address] 03 Aug, 2018 Cannabis abuse F12.10 and Co ntrolled substance agreement terminated Z91.14 [place] [address] [place] [id number] [address] [place] [address] Jul, Chronic pain syndrome G89.4 ; Bilateral low back pain, with sciatica presence unspecified M54.5 ; Chronic prescription opiate use Z79.899 ; Essential hypertension I10 ; Hyperlipidemia, unspecified hyperlipidemia E78.5 ; CKD (chronic kidney disease) stage 3, GFR 30-59 ml/min N18.3 and Allergic rhinitis J30.9 [place] [address] [facility] [id number] [address] [place] [address] Jul, Chronic pain syndrome G89.4 and Anxiety F41.9 [place] [address] [place] [id number] [address] [place] [address] Jul, Screening for breast cancer Z12.31 and Major depressive disorder, recurrent episode, unspecified severity F33.9 [place] [address] [place] [id number] [address] [place] [phone] Jun, Chronic pain syndrome G89.4 and Anxiety F41.9 [place] [address] [facility] [id number] [address] [place] [address] May, Chronic pain syndrome G89.4 and Anxiety F41.9 [place] [address] [place] [id number] [address] [place] [address] Apr, Anxiety F41.9 [place] [address] [place] [id number] [address] [place] [address] Apr, Chronic prescription opiate use Z79.899 ; Chronic pain syndrome G89.4 ; Essential hypertension I10 ; Allergic rhinitis J30.9 and CKD (chronic kidney disease) stage 3, GFR 30-59 ml/min N18.3 [place] [address] [place] [id number] [address] [place] [address] Apr, [place] [address] [facility] [id number] [address] [place] [address] March, Anxiety F41.9 and Chronic pa in syndrome G89.4 [place] [address] [address] March, CKD (chronic kidney disease) stage 3, GFR 30-59 ml/min N18.3 ; B12 deficiency E53.8 and Hyperlipidemia, unspecified hyperlipidemia E78.5 [place] [address] [address] March, Anxiety F41.9 and Chronic pa in syndrome G89.4 [place] [address] [address] Feb, Anxiety F41.9 and Chronic pa in syndrome G89.4 [place] [address] [address] Jan, B12 deficiency E53.8 [place] [address] [address] Jan, [place] [address] [address] Jan, Anxiety F41.9 ; Chronic pain syndrome G89.4 and Essential hypertension I10 [place] [address] [address] Jan, CKD (chronic kidney disease) stage 3, [...] Subacromial bursitis of right shoulder joint M75.51 [place] [address] [address] Dec, Essential hypertension I10 [place] [address] [address] Dec, Chronic pain syndrome G89.4 [place] [id number] [place] [address] Dec, Chronic pain syndrome G89.4 [facility] [address] [facility] [id number] [address] [place] [address] Nov, [facility] [address] [facility] [id number] [address] [place] [address] Nov, Chronic pain syndrome G89.[address] [facility] [address] [place] [id number] [address] [place] [address] Oct, Chronic pain syndrome G89.4 ; Other constipation K59.09 and Chronic prescription opiate use Z79.899 [place] [address] [place] [id number] [address] [place] [address] Oct, Chronic pain syndrome G89.4 and Anxiety F41.9 [place] [address] [address] Sep, Essential hypertension I10 [place] [address] [place] [id number] [place] [address] 16 Sep, 2017 Chronic pain syndrome G89.4 and Anxiety F41.9 [place] [address] [place] [id number] [address] [place] [address] Aug, Chronic pain syndrome G89.4 and Anxiety F41.9 [place] [address] [place] [id number] [address] [place] [phone] 28 Jul, [address] [facility] [address] [place] [id number] [address] [place] [phone] 22 Jul, 2017 Chronic obstructive pulmonar y disease, unspecified COPD type J44.9 [place] [address] [place] [id number] [address] [place] [address] 21 Jul, 2017 Chronic pain syndrome G89.4 and Anxiety F41.9 [place] [address] [place] [id number] [address] [place] [address] 13 Sep, 2017 Chronic pain syndrome G89.4 ; Essential hypertension I10 ; Fibromyalgia M79.7 ; CKD (chronic kidney disease) stage 3, GFR 30-59 ml/min N18.3 ; Subacromial bursitis, right M75.51 and Goals of care, co unseling/discussion Z71.89 [facility] [address] [facility] [id number] [address] [place] [address] Jun, Chronic pain syndrome G89.4 and Anxiety F41.9 [place] [address] [facility] [id number] [address] [place] [address] May, Chronic pain syndrome G89.4 and Anxiety F41.9 [place] [address] [place] [id number] [address] [place] [address] Apr, Chronic pain syndrome G89.4 and Anxiety F41.9 [place] [address] [place] [id number] [address] [place] [address] Apr, Drug induced constipation K5 9.03 ; Chronic pain syndrome G89.4 and CKD (chronic kidney disease) stage 3, GFR 30-59 ml/min N18.3 [place] [address] [facility] [id number] [address] [place] [address] Apr, Chronic pain syndrome G89.4 and Anxiety F41.9 [place] [address] [facility] [id number] [address] [place] [address] March, Chronic pain syndrome G89.4 and Anxiety F41.9 [place] [address] [facility] [id number] [address] [place] [address] March, Decreased GFR R94.4 [place] [address] [facility] [id number] [address] [place] [address] Feb, [place] [address] [facility] [id number] [address] [place] [address] Feb, Chronic pain syndrome G89.4 and Anxiety F41.9 [place] [address] [facility] [id number] [address] [place] [address] Jan, Decreased GFR R94.4 [facility] [address] [facility] [id number] [address] [place] [address] Jan, Decreased GFR R94.4 [facility] [address] [facility] [id number] [address] [place] [address] Jan, Allergic rhinitis J30.9 ; Es sential hypertension I10 ; Major depressive disorder, recurrent episode, unspecified severity F33.9 and Primary insomnia F51.01 [place] [address] [place] [id number] [address] [place] [address] Jan, Acute right-sided thoracic b ack pain M54.6 ; Subacromial bursitis of right shoulder joint M75.51 ; Chronic pain syndrome G89.4 and Anxiety F41.9 [place] [address] [place] [id number] [address] [place] [address] Jan, Decreased GFR R94.4 [place] [address] [facility] [id number] [address] [place] [address] Dec, Decreased GFR R94.4 [place] [address] [facility] [id number] [address] [place] [address] Dec, Decreased GFR R94.4 [place] [address] [facility] [id number] [address] [place] [address] Dec, Decreased GFR R94.4 [place] [address] [place] [id number] [address] [place] [address] Dec, Decreased GFR R94.4 [place] [address] [facility] [id number] [address] [place] [address] Dec, Anxiety F41.9 and Bilateral low back pain, with sciatica presence unspecified M54.5 [place] [address] [place] [id number] [address] [place] [address] Dec, Thrombocytosis D47.3 ; Hyper lipidemia, unspecified hyperlipidemia E78.5 ; Need for hepatitis C screening test Z11.59 and B12 deficiency E53.8 [place] [address] [place] [id number] [address] [place] [address] Nov, Need for hepatitis C screeni ng test Z11.59 [place] [address] [place] [id number] [address] [place] [address] Nov, Anxiety F41.9 and Bilateral low back pain, with sciatica presence unspecified M54.5 [place] [address] [address] Oct, Bilateral low back pain, wit h sciatica presence unspecified M54.5 ; Chronic prescription opiate use Z79.899 ; Anxiety F41.9 ; Essential hypertension I10 ; Hyperlipidemia, unspecified hyperlipidemia E78.5 ; Health care maintenance Z00.00 and Thrombocytosis D47.3 [place] [address] [address] Sep, [place] [address] [address] Sep, [place] [address] [address] Aug, [place] [address] [address] Jul, B12 deficiency E53.8 [place] [address] [place] [id number] [address] [place] [address] Jul, [place] [address] [address] Jul, Essential hypertension I10 ; Chronic pain syndrome G89.4 ; Anxiety F41.9 ; Screening for breast cancer Z12.39 ; Atherosclerosis of [place] coronary artery of [place] heart without angina pectoris I25.10 ; Major depressive disorder, recurrent episode, unspecified severity F33.9 ; Primary insomnia F51.01 and Allergic rhinitis J30.9 [place] [address] [place] [id number] [address] [place] [address] Jun, [facility] [address] [facility] [id number] [address] [place] [address] Jun, Leg wound, right, initial en counter S81.801A and Encounter for immunization Z23 [facility] [address] [facility] [id number] [address] [place] [address] Jun, Open wound of right ear, uns pecified open wound type, initial encounter S01.301A [facility] [address] [facility] [id number] [address] [place] [address] May, B12 deficiency E53.8 [facility] [address] [facility] [id number] [address] [place] [address] May, [facility] [address] [facility] [id number] [address] [place] [address] May, [facility] [address] [facility] [id number] [address] [place] [address] May, Chronic pain syndrome G89.4 ; Chronic prescription opiate use Z79.899 ; Allergic rhinitis J30.9 ; Essential hypertension I10 and Non-healing skin lesion L98.9 [facility] [address] [facility] [id number] [address] [place] [address] Apr, [facility] [address] [facility] [id number] [address] [place] [address] March, [facility] [address] [facility] [id number] [address] [place] [address] Feb, [facility] [address] [facility] [id number] [address] [place] [address] Feb, [facility] [address] [facility] [id number] [address] [place] [address] Feb, Chronic pain syndrome G89.4 ; Anxiety F41.9 ; B12 deficiency E53.8 ; Allergic rhinitis J30.9 ; Fibromyalgia M79.7 ; Actinic keratosis L57.0 ; Skin rash R21 ; Open wound of right ear, unspecified open wound type, initial encounter S01.301A ; Subacromial bursitis, right M75.51 ; GERD (gastroesophageal reflux disease) K21.9 and Chronic obstructive pulmonary disease, unspecified COPD type J44.9 [facility] [address] [facility] [id number] [address] [place] [address] 30 Jan, 2016 [facility] [address] [facility] [id number] [address] [place] [address] Jan, Essential hypertension I10 [facility] [address] [facility] [id number] [address] [place] [address] Jan, [facility] [address] [facility] [id number] [address] [place] [address] Jan, [facility] [address] [facility] [id number] [address] [place] [address] Jan, [facility] [address] [facility] [id number] [address] [place] [address] Dec, [facility] [address] [facility] [id number] [address] [place] [address] Dec, Essential hypertension I10 [facility] [address] [facility] [id number] [address] [place] [address] Dec, [facility] [address] [facility] [id number] [address] [place] [address] Dec, B12 deficiency E53.8 and Ess ential hypertension I10 [facility] [address] [facility] [id number] [address] [place] [address] Dec, [facility] [address] [facility] [id number] [address] [place] [address] Nov, Right shoulder pain M25.511 [facility] [address] [facility] [id number] [address] [place] [address] Nov, Right shoulder pain M25.511 [facility] [address] [facility] [id number] [address] [place] [address] Nov, Essential hypertension I10 a nd B12 deficiency E53.8 [facility] [address] [facility] [id number] [address] [place] [address] 14 Nov, 2015 Major depressive disorder, r ecurrent episode, unspecified severity F33.9 ; Anxiety F41.9 ; Chronic pain syndrome G89.4 ; Essential hypertension I10 ; Hyperlipidemia, unspecified hyperlipidemia E78.5 ; Chronic prescription opiate use Z79.899 ; Allergic rhinitis J30.9 ; B12 deficiency E53.8 and Right shoulder pain M25.511 [facility] [address] [facility] [id number] [address] [place] [address] 17 Oct, 2015 [facility] [address] [facility] [id number] [place] [address] Oct, [facility] [address] [place] [id number] [place] [address] Sep, [facility] [address] [address] Sep, [facility] [address] [place] [id number] [address] [place] [address] Aug, [facility] [address] [address] Aug, [facility] [address] [place] [id number] [address] [place] [address] Aug, [facility] [address] [address] Aug, Other constipation K59.09 ; Hyperlipidemia, unspecified hyperlipidemia E78.5 ; Essential hypertension I10 ; Primary insomnia F51.01 ; Anxiety F41.9 ; Chronic pain syndrome G89.4 ; Right shoulder pain M25.511 and Acute cystitis without hematuria N30.00 [facility] [address] [place] [id number] [address] [place] [address] 16 Jul, 2015 [facility] [address] [place] [id number] [address] [place] [address] Jul, [facility] [address] [id number] [address] [place] [address] 15 Jun, 2015 [facility] [address] [id number] [address] [place] [address] Jun, [facility] [address] [id number] [address] [place] [phone] Jun, [facility] [address] [id number] [address] [place] [address] May, [facility] [address] [id number] [address] [place] [address] May, Other chronic pain 338.29 ; Hypertension 401.9 and Constipation due to opioid therapy 564.09 [facility] [address] [id number] [address] [place] [address] 17 May, 2015 [facility] [address] [id number] [address] [place] [address] May, [facility] [address] [id number] [address] [place] [address] 17 Apr, 2015 [facility] [address] [id number] [address] [place] [address] Apr, Unspecified essential hypert ension 401.9 [facility] [address] [id number] [address] [place] [address] 16 Apr, 2015 [facility] [address] [id number] [address] [place] [address] Apr, [facility] [address] [id number] [address] [place] [address] 16 Apr, 2015 [facility] [address] [id number] [address] [place] [address] Apr, [facility] [address] [facility] [id number] [address] [place] [id number] [address], [address] [facility] [address] [facility] [id number] [address] [place] [address] Apr, [facility] [address] [id number] [address] [place] [id number] March, Unspecified essential hypert ension 401.9 [facility] [address] [id number] [address] [place] [phone] March, [facility] [address] [id number] [address] [place] [address], [place] [id number] March, [facility] [address] [id number] [address] [place] [phone] Feb, [facility] [address] [id number] [address] [place] [address], [place] [phone] Feb, [facility] [address] [id number] [address] [place] [phone] Jan, [facility] [address] [id number] [address] [place] [id number] Jan, [facility] [address] [id number] [address] [place] [id number] Jan, [facility] [address] [id number] [address] [place] [id number] Jan, [facility] [address] [id number] [address] [place] [id number] Jan, [facility] [address] [id number] [address] [place] [address] Jan, [facility] [address] [id number] [address] [place] [address] Jan, [facility] [address] [id number] [address] [place] [address] Dec, [facility] [address] [id number] [address] [place] [id number] Dec, [facility] [address] [id number] [address] [place] [id number] Dec, [facility] [address] [id number] [address] [place] [address], [place] [address] 16 Nov, 2014 [facility] [address] [id number] [address] [place] [address], [place] [address] Nov, [facility] [address] [id number] [address] [place] [address], [place] [address] Oct, [facility] [address] [id number] [address] [place] [address], [place] [address] Oct, [facility] [address] [id number] [address] [place] [address], [place] [address] Oct, [facility] [address] [id number] [address] [place] [address], [place] [address] Oct, [facility] [address] [id number] [address] [place] [address], [place] [address] Oct, [facility] [address] [id number] [address] [place] [address], [place] [address] Oct, [facility] [address] [id number] [address] [place] [address], [place] [address] Oct, [facility] [address] [id number] [address] [place] [address], [place] [address] Oct, [facility] [address] [id number] [address] [place] [address], [place] [address] Sep, [facility] [address] [id number] [address] [place] [address], [place] [address] Sep, [facility] [address] [id number] [address] [place] [address], [place] [address] Sep, [facility] [address] [id number] [address] [place] [address], [place] [address] Sep, [facility] [address] [id number] [address] [place] [address], [place] [address] Sep, [facility] [address] [id number] [address] [place] [address], [place] [address] Sep, [facility] [address] [id number] [address] [place] [address], [place] [address] Aug, [facility] [address] [id number] [address] [place] [address], [place] [address] Aug, [facility] [address] [id number] [address] [place] [address], [place] [address] Aug, [facility] [address] [id number] [address] [place] [address], [place] [address] Aug, [facility] [address] [id number] [address] [place] [address], [place] [address] Aug, [facility] [address] [id number] [address] [place] [address], [place] [address] Aug, [facility] [address] [id number] [address] [place] [address], [place] [address] Aug, [facility] [address] [id number] [address] [place] [address], [place] [address] Aug, [facility] [address] [id number] [address] [place] [address], [place] [id number] Aug, [facility] [address] [id number] [address] [place] [address], [place] [address] Aug, [facility] [address] [id number] [address] [place] [address], [place] [address] Jul, [facility] [address] [id number] [address] [place] [address], [place] [address] 22 Jul, 2014 [facility] [address] [id number] [address] [place] [address], [place] [address] 12 Jul, 2014 [facility] [address] [id number] [address] [place] [address], [place] [address] 12 Jul, 2014 [facility] [address] [id number] [address] [place] [address], [place] [address] 10 Jul, 2014 [facility] [address] [id number] [facility] [address] Jul, [facility] [address] [id number] [facility] [address] Jun, [facility] [address] [id number] [facility] [address] Jun, [facility] [address] [id number] [address] [place] [address], [place] [address] Jun, [facility] [address] [id number] [address] [place] [address], [place] [address] Jun, [facility] [address] [id number] [address] [place] [address], [place] [address] Jun, [facility] [address] [id number] [address] [place] [address], [place] [address] Jun, [facility] [address] [id number] [address] [place] [address], [place] [address] May, [facility] [address] [id number] [address] [place] [address], [place] [address] May, [facility] [address] [id number] [address] [place] [address], [place] [address] May, [facility] [address] [id number] [address] [place] [address], [place] [address] May, [facility] [address] [id number] [address] [place] [address], [place] [address] May, [facility] [address] [id number] [address] [place] [address], [place] [address] Apr, [facility] [address] [id number] [address] [place] [address], [place] [address] Apr, [facility] [address] [id number] [address] [place] [address], [place] [address] Apr, [facility] [address] [id number] [address] [place] [address], [place] [address] Apr, [facility] [address] [id number] [address] [place] [address], [place] [address] March, [facility] [address] [id number] [address] [place] [address], [place] [address] March, [facility] [address] [id number] [address] [place] [address], [place] [address] March, [facility] [address] [id number] [address] [place] [address], [place] [address] March, [facility] [address] [id number] [address] [place] [address], [place] [address] March, [facility] [address] [id number] [address] [place] [address], [place] [address] March, [facility] [address] [id number] [address] [place] [address], [place] [address] Feb, [facility] [address] [id number] [address] [place] [address], [place] [address] Feb, [facility] [address] [id number] [address] [place] [address], [place] [address] Feb, [facility] [address] [id number] [address] [place] [address], [place] [address] Feb, [facility] [address] [id number] [address] [place] [address], [place] [address] Feb, [facility] [address] [id number] [address] [place] [address], [place] [address] Feb, [facility] [address] [id number] [address] [place] [address], [place] [address] Feb, [facility] [address] [id number] [address] [place] [address], [place] [address] Feb, [facility] [address] [id number] [address] [place] [address], [place] [address] Jan, [facility] [address] [id number] [address] [place] [address], [place] [address] Jan, [facility] [address] [id number] [facility] [address] Jan, [facility] [address] [id number] [address] [place] [address], [place] [address] Jan, [facility] [address] [id number] [address] [place] [address], [place] [address] Jan, [facility] [address] [id number] [address] [place] [address], [place] [address] Jan, [facility] [address] [id number] [address] [place] [address], [place] [address] Dec, [facility] [address] [id number] [address] [place] [address], [place] [address] Dec, [facility] [address] [id number] [address] [place] [address], [place] [address] Nov, [facility] [address] [id number] [address] [place] [address], [place] [address] Nov, [facility] [address] [id number] [address] [place] [address], [place] [address] Nov, [facility] [address] [id number] [address] [place] [address], [place] [address] Nov, [facility] [address] [id number] [address] [place] [address], [place] [address] Nov, [facility] [address] [id number] [address] [place] [address], [place] [address] Nov, [facility] [address] [id number] [address] [place] [address], [place] [address] Nov, [facility] [address] [id number] [address] [place] [address], [place] [address] Nov, [facility] [address] [id number] [address] [place] [address], [place] [address] Nov, [facility] [address] [id number] [address] [place] [address], [place] [id number] 08 Nov, 2013 [facility] [address] [id number] [address] [place] [address], [place] [address] Nov, [facility] [address] [id number] [address] [place] [address], [place] [address] Nov, [facility] [address] [id number] [address] [place] [address], [place] [address] Nov, [facility] [address] [id number] [address] [place] [address], [place] [address] Nov, [facility] [address] [id number] [address] [place] [address], [place] [address] Nov, [facility] [address] [id number] [address] [place] [address], [place] [address] Oct, [facility] [address] [id number] [address] [place] [address], [place] [address] Oct, [facility] [address] [id number] [address] [place] [address], [place] [address] Oct, [facility] [address] [id number] [address] [place] [address], [place] [address] Oct, [facility] [address] [id number] [address] [place] [address], [place] [address] Oct, [facility] [address] [id number] [address] [place] [address], [place] [address] Oct, [facility] [address] [id number] [address] [place] [address], [place] [address] Oct, [facility] [address] [id number] [address] [place] [address], [place] [address] Oct, [facility] [address] [id number] [address] [place] [address], [place] [address] Oct, [facility] [address] [id number] [address] [place] [address], [place] [address] Aug, [facility] [address] [facility] [id number] [address] [place] [address] Aug, IMMUNIZATIONS No Known Immunizations SOCIAL HISTORY [...] by Dr. Troy Michelle pain specialist in [place], [place] Medical History Chronic low back pain [...]
--- OUTSIDE RECORDS SUMMARY | 2020-06-19 02:08 | XMS REPORT ---
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 Name Role Phone ASHVIN ROBERTS Unavailable PROBLEMS Type Condition ICD9-CM Code EGI15-LX Code Onset Dates Condition S tatus SNOMED Code Problem Other constipation K59.09 Active 1 62002808880281 Problem Primary insomnia F51.01 Active 193 403657 Problem Chronic pain syndrome G89.4 Active 430368504 Problem Essential hypertension I10 Active 59480059 Problem Anxiety F41.9 Active 03833343 Problem Major depressive disorder, recurrent episode, un specified severity F33.9 Active 59576127 Problem Atherosclerosis of [place] co ronary artery of [place] heart without angina pectoris I25.10 Active 9406904619182 Problem Bilateral low back pain, with sciatica presence unspecifie d M54.5 Active 827793476 Problem Allergic rhinitis J30.9 Active 61 421553 Problem Fibromyalgia M79.7 Active 1406308 7 Problem Degenerative disc disease, thoracic M51.34 Active 46995482 Problem B12 deficiency E53.8 Active 22424 4004 Problem Degenerative disc disease, cervical M50.30 Active 67016847 Problem Hyperlipidemia, unspecified hyperlipidemia E78.5 Active 49860856 Problem GERD (gastroesophageal reflux disease) K21.9 Active 352337125 Problem Chronic obstructive pulmonary disease, unspecified COPD ty pe J44.9 Active 08359869 Problem CKD (chronic kidney disease) stage 3, GFR 30-59 ml/min N18.3 Active 009712516 Problem Cannabis abuse F12.10 Active 81227 009 ALLERGIES No Information ENCOUNTERS Encounter Location Date Diagnosis [facility] [address] [facility] [id number] [address] [place] [id number] Jul, [facility] [address] [facility] [id number] [address] [place] [id number] Jul, Elevated platelet count R79. 89 ; B12 deficiency E53.8 ; Hyperlipidemia, unspecified hyperlipidemia E78.5 and CKD (chronic kidney disease) stage 3, GFR 30-59 ml/min N18.3 [place] [address] [facility] [id number] [address] [place] [address] Apr, B12 deficiency E53.8 [place] [address] [facility] [id number] [address] [place] [address] Jan, Periumbilical hernia K42.9 ; CKD (chronic kidney disease) stage 3, GFR 30-59 ml/min N18.3 ; Essential hypertension I10 ; GERD (gastroesophageal reflux disease) K21.9 ; Hyperlipidemia, unspecified hyperlipidemia E78.5 and Major depressive disorder, recurrent episode, unspecified severity F33.9 [place] [address] [facility] [id number] [address] [place] [address] Dec, Anxiety F41.9 [place] [address] [facility] [id number] [address] [place] [id number] Nov, Elevated platelet count R79. 89 [place] [address] [facility] [id number] [address] [place] [id number] Nov, [place] [address] [facility] [id number] [address] [place] [id number] Nov, Elevated platelet count R79. 89 [place] [address] [facility] [id number] [address] [place] [address] Nov, Anxiety F41.9 [place] [address] [facility] [id number] [address] [place] [address] Nov, Bilateral low back pain, wit h sciatica presence unspecified M54.5 ; Cervicalgia M54.2 ; Degenerative disc disease, cervical M50.30 and Degenerative disc disease, thoracic M51.34 [place] [address] [facility] [id number] [address] [place] [id number] Nov, Chronic pain syndrome G89.4 and Bilateral low back pain, with sciatica presence unspecified M54.5 [place] [address] [place] [id number] [address] [place] [id number] Oct, Umbilical hernia without obs truction and without gangrene K42.9 [place] [address] [place] [id number] [address] [place] [id number] Oct, Chronic pain syndrome G89.4 [place] [address] [address] Oct, Chronic pain syndrome G89.4 and Anxiety F41.9 [place] [address] [address] Oct, Elevated platelet count R79. 89 [place] [address] [address] Oct, CKD (chronic kidney disease) stage 3, GFR 30-59 ml/min N18.3 ; Other chest pain R07.89 ; Acute midline thoracic back pain M54.6 ; Essential hypertension I10 and History of osteoporosis Z87.39 [place] [address] [address] Sep, Chronic pain syndrome G89.4 [place] [address] [address] 16 Sep, 2018 [place] [address] [address] 15 Sep, 2018 Anxiety F41.9 and Chronic pa in syndrome G89.4 [place] [address] [address] 18 Aug, 2018 Chronic pain syndrome G89.4 and Anxiety F41.9 [place] [address] [address] 04 Aug, 2018 [place] [address] [address] 03 Aug, 2018 Cannabis abuse F12.10 and Co ntrolled substance agreement terminated Z91.14 [place] [address] [place] [id number] [address] [place] [address] Jul, Chronic pain syndrome G89.4 ; Bilateral low back pain, with sciatica presence unspecified M54.5 ; Chronic prescription opiate use Z79.899 ; Essential hypertension I10 ; Hyperlipidemia, unspecified hyperlipidemia E78.5 ; CKD (chronic kidney disease) stage 3, GFR 30-59 ml/min N18.3 and Allergic rhinitis J30.9 [place] [address] [facility] [id number] [address] [place] [address] Jul, Chronic pain syndrome G89.4 and Anxiety F41.9 [place] [address] [place] [id number] [address] [place] [id number] Jul, Screening for breast cancer Z12.31 and Major depressive disorder, recurrent episode, unspecified severity F33.9 [place] [address] [place] [id number] [address] [place] [address] Jun, Chronic pain syndrome G89.4 and Anxiety F41.9 [place] [address] [facility] [id number] [address] [place] [address] May, Chronic pain syndrome G89.4 and Anxiety F41.9 [place] [address] [place] [id number] [address] [place] [address] Apr, Anxiety F41.9 [place] [address] [place] [id number] [address] [place] [address] Apr, Chronic prescription opiate use Z79.899 ; Chronic pain syndrome G89.4 ; Essential hypertension I10 ; Allergic rhinitis J30.9 and CKD (chronic kidney disease) stage 3, GFR 30-59 ml/min N18.3 [place] [address] [place] [id number] [address] [place] [address] Apr, [place] [address] [facility] [id number] [address] [place] [address] March, Anxiety F41.9 and Chronic pa in syndrome G89.4 [place] [address] [address] March, CKD (chronic kidney disease) stage 3, GFR 30-59 ml/min N18.3 ; B12 deficiency E53.8 and Hyperlipidemia, unspecified hyperlipidemia E78.5 [place] [address] [address] March, Anxiety F41.9 and Chronic pa in syndrome G89.4 [place] [address] [address] Feb, Anxiety F41.9 and Chronic pa in syndrome G89.4 [place] [address] [address] Jan, B12 deficiency E53.8 [place] [address] [address] Jan, [place] [address] [address] Jan, Anxiety F41.9 ; Chronic pain syndrome G89.4 and Essential hypertension I10 [place] [address] [address] Jan, CKD (chronic kidney disease) stage 3, [...] Subacromial bursitis of right shoulder joint M75.51 [place] [address] [address] Dec, Essential hypertension I10 [place] [address] [address] Dec, Chronic pain syndrome G89.4 [place] [id number] [place] [address] Dec, Chronic pain syndrome G89.4 [facility] [address] [facility] [id number] [address] [place] [address] Nov, [facility] [address] [facility] [id number] [address] [place] [address] Nov, Chronic pain syndrome G89.4 and Anxiety F41.9 [facility] [address] [place] [id number] [address] [place] [address] Oct, Chronic pain syndrome G89.4 ; Other constipation K59.09 and Chronic prescription opiate use Z79.899 [place] [address] [place] [id number] [address] [place] [address] Oct, Chronic pain syndrome G89.4 and Anxiety F41.9 [place] [address] [address] Sep, Essential hypertension I10 [place] [address] [place] [id number] [place] [address] 16 Sep, 2017 Chronic pain syndrome G89.4 and Anxiety F41.9 [place] [address] [place] [id number] [address] [place] [address] Aug, Chronic pain syndrome G89.4 and Anxiety F41.9 [place] [address] [place] [id number] [address] [place] [address] 28 Jul, 2017 Essential hypertension I10 [facility] [address] [place] [id number] [address] [place] [address] 22 Jul, 2017 Chronic obstructive pulmonar y disease, unspecified COPD type J44.9 [place] [address] [place] [id number] [address] [place] [address] 21 Jul, 2017 Chronic pain syndrome G89.4 and Anxiety F41.9 [place] [address] [place] [id number] [address] [place] [address] 13 Sep, 2017 Chronic pain syndrome G89.4 ; Essential hypertension I10 ; Fibromyalgia M79.7 ; CKD (chronic kidney disease) stage 3, GFR 30-59 ml/min N18.3 ; Subacromial bursitis, right M75.51 and Goals of care, co unseling/discussion Z71.89 [facility] [address] [facility] [id number] [address] [place] [address] Jun, Chronic pain syndrome G89.4 and Anxiety F41.9 [place] [address] [facility] [id number] [address] [place] [address] May, Chronic pain syndrome G89.4 and Anxiety F41.9 [place] [address] [place] [id number] [address] [place] [address] Apr, Chronic pain syndrome G89.4 and Anxiety F41.9 [place] [address] [place] [id number] [address] [place] [address] Apr, Drug induced constipation K5 9.03 ; Chronic pain syndrome G89.4 and CKD (chronic kidney disease) stage 3, GFR 30-59 ml/min N18.3 [place] [address] [facility] [id number] [address] [place] [address] Apr, Chronic pain syndrome G89.4 and Anxiety F41.9 [place] [address] [facility] [id number] [address] [place] [address] March, Chronic pain syndrome G89.4 and Anxiety F41.9 [place] [address] [facility] [id number] [address] [place] [address] March, Decreased GFR R94.4 [place] [address] [facility] [id number] [address] [place] [address] Feb, [place] [address] [facility] [id number] [address] [place] [address] Feb, Chronic pain syndrome G89.4 and Anxiety F41.9 [place] [address] [facility] [id number] [address] [place] [address] Jan, Decreased GFR R94.4 [facility] [address] [facility] [id number] [address] [place] [address] Jan, Decreased GFR R94.4 [facility] [address] [facility] [id number] [address] [place] [address] Jan, Allergic rhinitis J30.9 ; Es sential hypertension I10 ; Major depressive disorder, recurrent episode, unspecified severity F33.9 and Primary insomnia F51.01 [place] [address] [place] [id number] [address] [place] [address] Jan, Acute right-sided thoracic b ack pain M54.6 ; Subacromial bursitis of right shoulder joint M75.51 ; Chronic pain syndrome G89.4 and Anxiety F41.9 [place] [address] [place] [id number] [address] [place] [address] Jan, Decreased GFR R94.4 [place] [address] [facility] [id number] [address] [place] [address] Dec, Decreased GFR R94.4 [place] [address] [facility] [id number] [address] [place] [address] Dec, Decreased GFR R94.4 [place] [address] [facility] [id number] [address] [place] [address] Dec, Decreased GFR R94.4 [place] [address] [place] [id number] [address] [place] [address] Dec, Decreased GFR R94.4 [place] [address] [facility] [id number] [address] [place] [address] Dec, Anxiety F41.9 and Bilateral low back pain, with sciatica presence unspecified M54.5 [place] [address] [place] [id number] [address] [place] [address] Dec, Thrombocytosis D47.3 ; Hyper lipidemia, unspecified hyperlipidemia E78.5 ; Need for hepatitis C screening test Z11.59 and B12 deficiency E53.8 [place] [address] [place] [id number] [address] [place] [address] Nov, Need for hepatitis C screeni ng test Z11.59 [place] [address] [place] [id number] [address] [place] [address] Nov, Anxiety F41.9 and Bilateral low back pain, with sciatica presence unspecified M54.5 [place] [address] [address] Oct, Bilateral low back pain, wit h sciatica presence unspecified M54.5 ; Chronic prescription opiate use Z79.899 ; Anxiety F41.9 ; Essential hypertension I10 ; Hyperlipidemia, unspecified hyperlipidemia E78.5 ; Health care maintenance Z00.00 and Thrombocytosis D47.3 [place] [address] [address] Sep, [place] [address] [address] Sep, [place] [address] [address] Aug, [place] [address] [address] Jul, B12 deficiency E53.8 [place] [address] [place] [id number] [address] [place] [address] Jul, [place] [address] [address] Jul, Essential hypertension I10 ; Chronic pain syndrome G89.4 ; Anxiety F41.9 ; Screening for breast cancer Z12.39 ; Atherosclerosis of [place] coronary artery of [place] heart without angina pectoris I25.10 ; Major depressive disorder, recurrent episode, unspecified severity F33.9 ; Primary insomnia F51.01 and Allergic rhinitis J30.9 [place] [address] [place] [id number] [address] [place] [address] Jun, [facility] [address] [facility] [id number] [address] [place] [address] Jun, Leg wound, right, initial en counter S81.801A and Encounter for immunization Z23 [facility] [address] [facility] [id number] [address] [place] [address] Jun, Open wound of right ear, uns pecified open wound type, initial encounter S01.301A [facility] [address] [facility] [id number] [address] [place] [address] May, B12 deficiency E53.8 [facility] [address] [facility] [id number] [address] [place] [address] May, [facility] [address] [facility] [id number] [address] [place] [address] May, [facility] [address] [facility] [id number] [address] [place] [address] May, Chronic pain syndrome G89.4 ; Chronic prescription opiate use Z79.899 ; Allergic rhinitis J30.9 ; Essential hypertension I10 and Non-healing skin lesion L98.9 [facility] [address] [facility] [id number] [address] [place] [address] Apr, [facility] [address] [facility] [id number] [address] [place] [address] March, [facility] [address] [facility] [id number] [address] [place] [address] Feb, [facility] [address] [facility] [id number] [address] [place] [address] Feb, [facility] [address] [facility] [id number] [address] [place] [address] Feb, Chronic pain syndrome G89.4 ; Anxiety F41.9 ; B12 deficiency E53.8 ; Allergic rhinitis J30.9 ; Fibromyalgia M79.7 ; Actinic keratosis L57.0 ; Skin rash R21 ; Open wound of right ear, unspecified open wound type, initial encounter S01.301A ; Subacromial bursitis, right M75.51 ; GERD (gastroesophageal reflux disease) K21.9 and Chronic obstructive pulmonary disease, unspecified COPD type J44.9 [facility] [address] [facility] [id number] [address] [place] [address] 30 Jan, 2016 [facility] [address] [facility] [id number] [address] [place] [address] Jan, Essential hypertension I10 [facility] [address] [facility] [id number] [address] [place] [address] Jan, [facility] [address] [facility] [id number] [address] [place] [address] Jan, [facility] [address] [facility] [id number] [address] [place] [address] Jan, [facility] [address] [facility] [id number] [address] [place] [address] Dec, [facility] [address] [facility] [id number] [address] [place] [address] Dec, Essential hypertension I10 [facility] [address] [facility] [id number] [address] [place] [address] Dec, [facility] [address] [facility] [id number] [address] [place] [address] Dec, B12 deficiency E53.8 and Ess ential hypertension I10 [facility] [address] [facility] [id number] [address] [place] [address] Dec, [facility] [address] [facility] [id number] [address] [place] [address] Nov, Right shoulder pain M25.511 [facility] [address] [facility] [id number] [address] [place] [address] Nov, Right shoulder pain M25.511 [facility] [address] [facility] [id number] [address] [place] [address] Nov, Essential hypertension I10 a nd B12 deficiency E53.8 [facility] [address] [facility] [id number] [address] [place] [address] 14 Nov, 2015 Major depressive disorder, r ecurrent episode, unspecified severity F33.9 ; Anxiety F41.9 ; Chronic pain syndrome G89.4 ; Essential hypertension I10 ; Hyperlipidemia, unspecified hyperlipidemia E78.5 ; Chronic prescription opiate use Z79.899 ; Allergic rhinitis J30.9 ; B12 deficiency E53.8 and Right shoulder pain M25.511 [facility] [address] [facility] [id number] [address] [place] [id number] 17 Oct, 2015 [facility] [address] [facility] [id number] [place] [id number] Oct, [facility] [address] [place] [id number] [place] [address] Sep, [facility] [address] [address] Sep, [facility] [address] [place] [id number] [address] [place] [id number] Aug, [facility] [address] [address] Aug, [facility] [address] [place] [id number] [address] [place] [address] Aug, [facility] [address] [address] Aug, Other constipation K59.09 ; Hyperlipidemia, unspecified hyperlipidemia E78.5 ; Essential hypertension I10 ; Primary insomnia F51.01 ; Anxiety F41.9 ; Chronic pain syndrome G89.4 ; Right shoulder pain M25.511 and Acute cystitis without hematuria N30.00 [facility] [address] [place] [id number] [address] [place] [id number] 16 Jul, 2015 [facility] [address] [place] [id number] [address] [place] [id number] Jul, [facility] [address] [id number] [address] [place] [id number] 15 Jun, 2015 [facility] [address] [id number] [address] [place] [id number] Jun, [facility] [address] [id number] [address] [place] [id number] Jun, [facility] [address] [id number] [address] [place] [address] May, [facility] [address] [id number] [address] [place] [address] May, Other chronic pain 338.29 ; Hypertension 401.9 and Constipation due to opioid therapy 564.09 [facility] [address] [id number] [address] [place] [id number] 17 May, 2015 [facility] [address] [id number] [address] [place] [address] May, [facility] [address] [id number] [address] [place] [id number] 17 Apr, 2015 [facility] [address] [id number] [address] [place] [id number] Apr, Unspecified essential hypert ension 401.9 [facility] [address] [id number] [address] [place] [id number] 16 Apr, 2015 [facility] [address] [id number] [address] [place] [phone] Apr, [facility] [address] [id number] [address] [place] [id number] 16 Apr, 2015 [facility] [address] [id number] [address] [place] [id number] Apr, [facility] [address] [facility] [id number] [address] [place] [id number] 15 Apr, 2015 [facility] [address] [facility] [id number] [address] [place] [id number] Apr, [facility] [address] [id number] [address] [place] [id number] March, Unspecified essential hypert ension 401.9 [facility] [address] [id number] [address] [place] [id number] March, [facility] [address] [id number] [address] [place] [address], [place] [address] March, [facility] [address] [id number] [address] [place] [id number] Feb, [facility] [address] [id number] [address] [place] [address], [place] [address] Feb, [facility] [address] [id number] [address] [place] [id number] Jan, [facility] [address] [id number] [address] [place] [id number] Jan, [facility] [address] [id number] [address] [place] [id number] Jan, [facility] [address] [id number] [address] [place] [id number] Jan, [facility] [address] [id number] [address] [place] [id number] Jan, [facility] [address] [id number] [address] [place] [id number] Jan, [facility] [address] [id number] [address] [place] [id number] Jan, [facility] [address] [id number] [address] [place] [id number] Dec, [facility] [address] [id number] [address] [place] [id number] Dec, [facility] [address] [id number] [address] [place] [id number] Dec, [facility] [address] [id number] [address] [place] [address], [place] [id number] 16 Nov, 2014 [facility] [address] [id number] [address] [place] [address], [place] [id number] Nov, [facility] [address] [id number] [address] [place] [address], [place] [id number] Oct, [facility] [address] [id number] [address] [place] [address], [place] [address] Oct, [facility] [address] [id number] [address] [place] [address], [place] [address] Oct, [facility] [address] [id number] [address] [place] [address], [place] [address] Oct, [facility] [address] [id number] [address] [place] [address], [place] [id number] Oct, [facility] [address] [id number] [address] [place] [address], [place] [address] Oct, [facility] [address] [id number] [address] [place] [address], [place] [address] Oct, [facility] [address] [id number] [address] [place] [address], [place] [address] Oct, [facility] [address] [id number] [address] [place] [address], [place] [address] Sep, [facility] [address] [id number] [address] [place] [address], [place] [address] Sep, [facility] [address] [id number] [address] [place] [address], [place] [address] Sep, [facility] [address] [id number] [address] [place] [address], [place] [address] Sep, [facility] [address] [id number] [address] [place] [address], [place] [address] Sep, [facility] [address] [id number] [address] [place] [address], [place] [address] Sep, [facility] [address] [id number] [address] [place] [address], [place] [address] Aug, [facility] [address] [id number] [address] [place] [address], [place] [address] Aug, [facility] [address] [id number] [address] [place] [address], [place] [address] Aug, [facility] [address] [id number] [address] [place] [address], [place] [address] Aug, [facility] [address] [id number] [address] [place] [address], [place] [address] Aug, [facility] [address] [id number] [address] [place] [address], [place] [address] Aug, [facility] [address] [id number] [address] [place] [address], [place] [address] Aug, [facility] [address] [id number] [address] [place] [address], [place] [address] Aug, [facility] [address] [id number] [address] [place] [address], [place] [address] Aug, [facility] [address] [id number] [address] [place] [address], [place] [address] Aug, [facility] [address] [id number] [address] [place] [address], [place] [address] Jul, [facility] [address] [id number] [address] [place] [address], [place] [address] 22 Jul, 2014 [facility] [address] [id number] [address] [place] [address], [place] [address] 12 Jul, 2014 [facility] [address] [id number] [address] [place] [address], [place] [address] 12 Jul, 2014 [facility] [address] [id number] [address] [place] [address], [place] [address] 10 Jul, 2014 [facility] [address] [id number] [facility] [place] [address] Jul, [facility] [address] [id number] [facility] [place] [address] Jun, [facility] [address] [id number] [facility] [place] [address] Jun, [facility] [address] [id number] [address] [place] [address], [place] [address] Jun, [facility] [address] [id number] [address] [place] [address], [place] [address] Jun, [facility] [address] [id number] [address] [place] [address], [place] [address] Jun, [facility] [address] [id number] [address] [place] [address], [place] [address] Jun, [facility] [address] [id number] [address] [place] [address], [place] [address] May, [facility] [address] [id number] [address] [place] [address], [place] [address] May, [facility] [address] [id number] [address] [place] [address], [place] [address] May, [facility] [address] [id number] [address] [place] [address], [place] [address] May, [facility] [address] [id number] [address] [place] [address], [place] [address] May, [facility] [address] [id number] [address] [place] [address], [place] [address] Apr, [facility] [address] [id number] [address] [place] [address], [place] [address] Apr, [facility] [address] [id number] [address] [place] [address], [place] [address] Apr, [facility] [address] [id number] [address] [place] [address], [place] [address] Apr, [facility] [address] [id number] [address] [place] [address], [place] [address] March, [facility] [address] [id number] [address] [place] [address], [place] [address] March, [facility] [address] [id number] [address] [place] [address], [place] [address] March, [facility] [address] [id number] [address] [place] [address], [place] [address] March, [facility] [address] [id number] [address] [place] [address], [place] [address] March, [facility] [address] [id number] [address] [place] [address], [place] [address] March, [facility] [address] [id number] [address] [place] [address], [place] [address] Feb, [facility] [address] [id number] [address] [place] [address], [place] [address] Feb, [facility] [address] [id number] [address] [place] [address], [place] [address] Feb, [facility] [address] [id number] [address] [place] [address], [place] [address] Feb, [facility] [address] [id number] [address] [place] [address], [place] [address] Feb, [facility] [address] [id number] [address] [place] [address], [place] [address] Feb, [facility] [address] [id number] [address] [place] [address], [place] [address] Feb, [facility] [address] [id number] [address] [place] [address], [place] [address] Feb, [facility] [address] [id number] [address] [place] [address], [place] [address] Jan, [facility] [address] [id number] [address] [place] [address], [place] [address] Jan, [facility] [address] [id number] [facility] [place] [address] Jan, [facility] [address] [id number] [address] [place] [address], [place] [address] Jan, [facility] [address] [id number] [address] [place] [address], [place] [address] Jan, [facility] [address] [id number] [address] [place] [address], [place] [address] Jan, [facility] [address] [id number] [address] [place] [address], [place] [address] Dec, [facility] [address] [id number] [address] [place] [address], [place] [address] Dec, [facility] [address] [id number] [address] [place] [address], [place] [address] Nov, [facility] [address] [id number] [address] [place] [address], [place] [address] Nov, [facility] [address] [id number] [address] [place] [address], [place] [address] Nov, [facility] [address] [id number] [address] [place] [address], [place] [address] Nov, [facility] [address] [id number] [address] [place] [address], [place] [address] Nov, [facility] [address] [id number] [address] [place] [address], [place] [address] Nov, [facility] [address] [id number] [address] [place] [address], [place] [address] Nov, [facility] [address] [id number] [address] [place] [address], [place] [address] Nov, [facility] [address] [id number] [address] [place] [address], [place] [address] Nov, [facility] [address] [id number] [address] [place] [address], [place] [address] 08 Nov, 2013 [facility] [address] [id number] [address] [place] [address], [place] [address] Nov, [facility] [address] [id number] [address] [place] [address], [place] [address] Nov, [facility] [address] [id number] [address] [place] [address], [place] [address] Nov, [facility] [address] [id number] [address] [place] [address], [place] [address] Nov, [facility] [address] [id number] [address] [place] [address], [place] [address] Nov, [facility] [address] [id number] [address] [place] [address], [place] [address] Oct, [facility] [address] [id number] [address] [place] [address], [place] [address] Oct, [facility] [address] [id number] [address] [place] [address], [place] [address] Oct, [facility] [address] [id number] [address] [place] [address], [place] [address] Oct, [facility] [address] [id number] [address] [place] [address], [place] [address] Oct, [facility] [address] [id number] [address] [place] [address], [place] [address] Oct, [facility] [address] [id number] [address] [place] [address], [place] [address] Oct, [facility] [address] [id number] [address] [place] [address], [place] [address] Oct, [facility] [address] [id number] [address] [place] [address], [place] [address] Oct, [facility] [address] [id number] [address] [place] [address], [place] [address] Aug, [facility] [address] [facility] [id number] [address] [place] [address] Aug, IMMUNIZATIONS No Known Immunizations SOCIAL HISTORY Never Assessed REASON FOR VISIT PLAN OF CARE VITAL SIGNS Height 69 in 2014-09-08 Weight 235.8 lbs 2014-09-08 Temperature 97.5 degrees Fahrenheit 2014-09-08 Heart Rate 86 bpm 2014-09-08 Respiratory Rate 20 2014-09-08 Blood pressure systolic 122 mmHg 2014-09-08 Blood pressure diastolic 80 mmHg 2014-09-08 MEDICATIONS Unknown Medications RESULTS No Results PROCEDURES No Known procedures INSTRUCTIONS MEDICATIONS ADMINISTERED No Known Medications MEDICAL (GENERAL) HISTORY Type Description Date Medical History hypertension Medical History asthma Medical History Arthritis Medical History Hypoglycemia Medical History Heart Cath 11/05/2013 Medical History herniated disc--Seen by Dr. Troy Michelle pain specialist in [place], [place] Medical History Chronic low back pain [...]
--- OUTSIDE RECORDS SUMMARY | 2020-06-19 02:09 | XMS REPORT ---
Author Author ARMANDO Mahsavirgen LOCK Organization [facility] [place] Address [address] [place] [address] Care Team Providers Care Cardiology Clinical Nurse Specialist Name Role Phone ARMANDONYASIA DIAZY Unavailable PROBLEMS Type Condition ICD9-CM Code XAH97-LV Code Onset Dates Condition S tatus SNOMED Code Problem Other constipation K59.09 Active 1 [id number] Problem Primary insomnia F51.01 Active 193 997846 Problem Chronic pain syndrome G89.4 Active 991455782 Problem Essential hypertension I10 Active 95994044 Problem Anxiety F41.9 Active 67150008 Problem Major depressive disorder, recurrent episode, un specified severity F33.9 Active 40492343 Problem Atherosclerosis of [place] co ronary artery of [place] heart without angina pectoris I25.10 Active [id number] Problem Bilateral low back pain, with sciatica presence unspecifie d M54.5 Active 625164908 Problem Allergic rhinitis J30.9 Active 61 807013 Problem Fibromyalgia M79.7 Active 7817603 7 Problem Degenerative disc disease, thoracic M51.34 Active 41243178 Problem B12 deficiency E53.8 Active 79280 4004 Problem Degenerative disc disease, cervical M50.30 Active 07108137 Problem Hyperlipidemia, unspecified hyperlipidemia E78.5 Active 78720763 Problem GERD (gastroesophageal reflux disease) K21.9 Active 286895957 Problem Chronic obstructive pulmonary disease, unspecified COPD ty pe J44.9 Active 19241058 Problem CKD (chronic kidney disease) stage 3, GFR 30-59 ml/min N18.3 Active 221302001 Problem Cannabis abuse F12.10 Active 78912 009 ALLERGIES No Information ENCOUNTERS Encounter Location Date Diagnosis [facility] [place] [address] [id number] [address] [place] [id number] Apr, B12 deficiency E53.8 [facility] [place] [address] [id number] [address] [place] [id number] Jan, Periumbilical hernia K42.9 ; CKD (chronic kidney disease) stage 3, GFR 30-59 ml/min N18.3 ; Essential hypertension I10 ; GERD (gastroesophageal reflux disease) K21.9 ; Hyperlipidemia, unspecified hyperlipidemia E78.5 and Major depressive disorder, recurrent episode, unspecified severity F33.9 [place] [address] [id number] [address] [place] [id number] Dec, Anxiety F41.9 [place] [address] [id number] [address] [place] [address] Nov, Elevated platelet count R79. 89 [place] [address] [id number] [address] [place] [id number] Nov, [place] [address] [id number] [address] [place] [id number] Nov, Elevated platelet count R79. 89 [place] [address] [id number] [address] [place] [id number] Nov, Anxiety F41.9 [place] [address] [id number] [address] [place] [id number] Nov, Bilateral low back pain, wit h sciatica presence unspecified M54.5 ; Cervicalgia M54.2 ; Degenerative disc disease, cervical M50.30 and Degenerative disc disease, thoracic M51.34 [place] [address] [place] [id number] [address] [place] [id number] Nov, Chronic pain syndrome G89.4 and Bilateral low back pain, with sciatica presence unspecified M54.5 [place] [address] [place] [id number] [address] [place] [id number] Oct, Umbilical hernia without obs truction and without gangrene K42.9 [place] [address] [id number] [address] [place] [id number] Oct, Chronic pain syndrome G89.4 [place] [address] [place] [id number] [address] [place] [id number] Oct, Chronic pain syndrome G89.4 and Anxiety F41.9 [place] [address] [place] [id number] [address] [place] [id number] 12 Oct, 2018 Elevated platelet count R79. 89 [place] [address] [place] [id number] [address] [place] [id number] 10 Oct, 2018 CKD (chronic kidney disease) stage 3, GFR 30-59 ml/min N18.3 ; Other chest pain R07.89 ; Acute midline thoracic back pain M54.6 ; Essential hypertension I10 and History of osteoporosis Z87.39 [place] [id number] [place] [address] 29 Sep, 2018 Chronic pain syndrome G89.4 [place] [address] [place] [id number] [place] [id number] 16 Sep, 2018 [place] [address] [address] Sep, Anxiety F41.9 and Chronic pa in syndrome G89.4 [place] [address] [place] [id number] [address] [place] [id number] 18 Aug, 2018 Chronic pain syndrome G89.4 and Anxiety F41.9 [place] [address] [place] [id number] [address] [place] [id number] Aug, [place] [address] [address] Aug, Cannabis abuse F12.10 and Co ntrolled substance agreement terminated Z91.14 [place] [address] [place] [id number] [address] [place] [id number] 28 Jul, 2018 Chronic pain syndrome G89.4 ; Bilateral low back pain, with sciatica presence unspecified M54.5 ; Chronic prescription opiate use Z79.899 ; Essential hypertension I10 ; Hyperlipidemia, unspecified hyperlipidemia E78.5 ; CKD (chronic kidney disease) stage 3, GFR 30-59 ml/min N18.3 and Allergic rhinitis J30.9 [place] [address] [place] [id number] [place] [address] Jul, Chronic pain syndrome G89.4 and Anxiety F41.9 [place] [address] [place] [id number] [address] [place] [address] Jul, Screening for breast cancer Z12.31 and Major depressive disorder, recurrent episode, unspecified severity F33.9 [place] [address] [place] [id number] [address] [place] [id number] Jun, Chronic pain syndrome G89.4 and Anxiety F41.9 [place] [address] [place] [id number] [address] [place] [address] May, Chronic pain syndrome G89.4 and Anxiety F41.9 [place] [address] [place] [id number] [address] [place] [address] Apr, Anxiety F41.9 [place] [address] [place] [id number] [place] [address] Apr, Chronic prescription opiate use Z79.899 ; Chronic pain syndrome G89.4 ; Essential hypertension I10 ; Allergic rhinitis J30.9 and CKD (chronic kidney disease) stage 3, GFR 30-59 ml/min N18.3 [place] [address] [place] [id number] [address] [place] [address] Apr, [place] [address] [place] [id number] [address] [place] [address] March, Anxiety F41.9 and Chronic pa in syndrome G89.4 [place] [address] [id number] [address] [place] [address] March, CKD (chronic kidney disease) stage 3, GFR 30-59 ml/min N18.3 ; B12 deficiency E53.8 and Hyperlipidemia, unspecified hyperlipidemia E78.5 [place] [address] [id number] [address] [place] [address] March, Anxiety F41.9 and Chronic pa in syndrome G89.4 [place] [address] [address] Feb, Anxiety F41.9 and Chronic pa in syndrome G89.4 [place] [address] [address] Jan, B12 deficiency E53.8 [place] [address] [address] Jan, [place] [address] [address] Jan, Anxiety F41.9 ; Chronic pain syndrome G89.4 and Essential hypertension I10 [place] [address] [address] Jan, CKD (chronic kidney disease) stage 3, [...] Subacromial bursitis of right shoulder joint M75.51 [place] [address] [address] 28 Dec, 2017 Essential hypertension I10 [place] [address] [address] 15 Dec, 2017 Chronic pain syndrome G89.4 [place] [address] [address] Dec, Chronic pain syndrome G89.4 [place] [address] [address] Nov, [place] [address] [address] Nov, Chronic pain syndrome G89.4 and Anxiety F41.9 [place] [id number] [id number] [address] [place] [id number] Oct, Chronic pain syndrome G89.4 ; Other constipation K59.09 and Chronic prescription opiate use Z79.899 [facility] [place] [address] [id number] [address] [place] [address] Oct, Chronic pain syndrome G89.4 and Anxiety F41.9 [place] [address] [id number] [address] [place] [address] Sep, Essential hypertension I10 [place] [address] [id number] [address] [place] [id number] 16 Sep, 2017 Chronic pain syndrome G89.4 and Anxiety F41.9 [place] [address] [id number] [address] [place] [address] Aug, Chronic pain syndrome G89.4 and Anxiety F41.9 [place] [address] [place] [id number] [address] [place] [id number] Jul, Essential hypertension I10 [place] [address] [id number] [address] [place] [id number] 22 Jul, 2017 Chronic obstructive pulmonar y disease, unspecified COPD type J44.9 [place] [address] [id number] [address] [place] [address] Jul, Chronic pain syndrome G89.4 and Anxiety F41.9 [place] [address] [place] [id number] [address] [place] [address] 13 Jul, 2017 Chronic pain syndrome G89.4 ; Essential hypertension I10 ; Fibromyalgia M79.7 ; CKD (chronic kidney disease) stage 3, GFR 30-59 ml/min N18.3 ; Subacromial bursitis, right M75.51 and Goals of care, co unseling/discussion Z71.89 [place] [address] [id number] [address] [place] [address] Jun, Chronic pain syndrome G89.4 and Anxiety F41.9 [place] [address] [id number] [address] [place] [address] May, Chronic pain syndrome G89.4 and Anxiety F41.9 [facility] [place] [address] [id number] [address] [place] [id number] Apr, Chronic pain syndrome G89.4 and Anxiety F41.9 [facility] [place] [address] [id number] [address] [place] [address] Apr, Drug induced constipation K5 9.03 ; Chronic pain syndrome G89.4 and CKD (chronic kidney disease) stage 3, GFR 30-59 ml/min N18.3 [facility] [place] [address] [id number] [address] [place] [id number] Apr, Chronic pain syndrome G89.4 and Anxiety F41.9 [place] [address] [id number] [address] [place] [address] March, Chronic pain syndrome G89.4 and Anxiety F41.9 [facility] [place] [address] [id number] [address] [place] [phone] March, Decreased GFR R94.4 [facility] [place] [address] [id number] [address] [place] [phone] Feb, [facility] [place] [address] [id number] [address] [place] [address] Feb, Chronic pain syndrome G89.4 and Anxiety F41.9 [facility] [place] [address] [id number] [address] [place] [id number] Jan, Decreased GFR R94.4 [facility] [place] [address] [id number] [address] [place] [address] Jan, Decreased GFR R94.4 [facility] [place] [address] [id number] [address] [place] [address] Jan, Allergic rhinitis J30.9 ; Es sential hypertension I10 ; Major depressive disorder, recurrent episode, unspecified severity F33.9 and Primary insomnia F51.01 [facility] [place] [address] [place] [id number] [address] [place] [address] Jan, Acute right-sided thoracic b ack pain M54.6 ; Subacromial bursitis of right shoulder joint M75.51 ; Chronic pain syndrome G89.4 and Anxiety F41.9 [place] [address] [place] [id number] [address] [place] [address] Jan, Decreased GFR R94.4 [place] [address] [place] [id number] [address] [place] [id number] Dec, Decreased GFR R94.4 [place] [address] [place] [id number] [place] [address] Dec, Decreased GFR R94.4 [place] [address] [address] Dec, Decreased GFR R94.4 [place] [address] [place] [id number] [place] [address] Dec, Decreased GFR R94.4 [place] [address] [address] Dec, Anxiety F41.9 and Bilateral low back pain, with sciatica presence unspecified M54.5 [place] [address] [address] Dec, Thrombocytosis D47.3 ; Hyper lipidemia, unspecified hyperlipidemia E78.5 ; Need for hepatitis C screening test Z11.59 and B12 deficiency E53.8 [place] [address] [place] [id number] [address] [place] [address] Nov, Need for hepatitis C screeni ng test Z11.59 [place] [address] [place] [id number] [place] [address] Nov, Anxiety F41.9 and Bilateral low back pain, with sciatica presence unspecified M54.5 [place] [address] [place] [id number] [address] [place] [address] Oct, Bilateral low back pain, wit h sciatica presence unspecified M54.5 ; Chronic prescription opiate use Z79.899 ; Anxiety F41.9 ; Essential hypertension I10 ; Hyperlipidemia, unspecified hyperlipidemia E78.5 ; Health care maintenance Z00.00 and Thrombocytosis D47.3 [place] [address] [address] Sep, [facility] [place] [address] [address] Sep, [place] [address] [address] Aug, [place] [address] [address] Jul, B12 deficiency E53.8 [place] [address] [address] Jul, [place] [address] [address] Jul, Essential hypertension I10 ; Chronic pain syndrome G89.4 ; Anxiety F41.9 ; Screening for breast cancer Z12.39 ; Atherosclerosis of [place] coronary artery of [place] heart without angina pectoris I25.10 ; Major depressive disorder, recurrent episode, unspecified severity F33.9 ; Primary insomnia F51.01 and Allergic rhinitis J30.9 [place] [address] [place] [id number] [address] [place] [address] Jun, [facility] [address] [place] [id number] [address] [place] [address] Jun, Leg wound, right, initial en counter S81.801A and Encounter for immunization Z23 [place] [address] [place] [id number] [address] [place] [address] Jun, Open wound of right ear, uns pecified open wound type, initial encounter S01.301A [place] [address] [place] [id number] [address] [place] [address] May, B12 deficiency E53.8 [facility] [place] [id number] [place] [address] May, [facility] [place] [address] [place] [id number] [address] [place] [address] May, [facility] [place] [address] [address] May, Chronic pain syndrome G89.4 ; Chronic prescription opiate use Z79.899 ; Allergic rhinitis J30.9 ; Essential hypertension I10 and Non-healing skin lesion L98.9 [place] [address] [address] Apr, [place] [address] [address] March, [facility] [place] [address] [address] Feb, [facility] [place] [address] [address] Feb, [place] [address] [address] Feb, Chronic pain syndrome G89.4 ; Anxiety F41.9 ; B12 deficiency E53.8 ; Allergic rhinitis J30.9 ; Fibromyalgia M79.7 ; Actinic keratosis L57.0 ; Skin rash R21 ; Open wound of right ear, unspecified open wound type, initial encounter S01.301A ; Subacromial bursitis, right M75.51 ; GERD (gastroesophageal reflux disease) K21.9 and Chronic obstructive pulmonary disease, unspecified COPD type J44.9 [facility] [place] [address] [place] [id number] [address] [place] [address] Jan, [facility] [place] [address] [address] Jan, Essential hypertension I10 [place] [address] [id number] [address] [place] [address] 11 Jan, 2016 [facility] [place] [address] [id number] [address] [place] [address] Jan, [facility] [place] [address] [id number] [address] [place] [address] Jan, [facility] [place] [address] [id number] [address] [place] [address] Dec, [facility] [place] [address] [id number] [address] [place] [address] Dec, Essential hypertension I10 [facility] [place] [address] [id number] [place] [address] Dec, [facility] [place] [id number] [place] [address] Dec, B12 deficiency E53.8 and Ess ential hypertension I10 [facility] [place] [address] [id number] [address] [place] [address] Dec, [facility] [place] [id number] [address] Nov, Right shoulder pain M25.511 [facility] [place] [address] [address] Nov, Right shoulder pain M25.511 [facility] [place] [address] [id number] [address] [place] [address] Nov, Essential hypertension I10 a nd B12 deficiency E53.8 [facility] [place] [address] [id number] [address] [place] [id number] 14 Nov, 2015 Major depressive disorder, r ecurrent episode, unspecified severity F33.9 ; Anxiety F41.9 ; Chronic pain syndrome G89.4 ; Essential hypertension I10 ; Hyperlipidemia, unspecified hyperlipidemia E78.5 ; Chronic prescription opiate use Z79.899 ; Allergic rhinitis J30.9 ; B12 deficiency E53.8 and Right shoulder pain M25.511 [facility] [place] [address] [id number] [address] [place] [address] Oct, [facility] [place] [address] [id number] [address] [place] [id number] Oct, [facility] [place] [address] [id number] [address] [place] [address] Sep, [facility] [place] [address] [id number] [address] [place] [address] Sep, [facility] [place] [address] [id number] [address] [place] [address] Aug, [facility] [place] [address] [id number] [address] [place] [address] Aug, [facility] [place] [address] [place] [id number] [address] [place] [address] Aug, [facility] [place] [address] [place] [id number] [address] [place] [address] Aug, Other constipation K59.09 ; Hyperlipidemia, unspecified hyperlipidemia E78.5 ; Essential hypertension I10 ; Primary insomnia F51.01 ; Anxiety F41.9 ; Chronic pain syndrome G89.4 ; Right shoulder pain M25.511 and Acute cystitis without hematuria N30.00 [facility] [place] [address] [place] [id number] [address] [place] [address] 16 Jul, 2015 [facility] [place] [address] [id number] [address] [place] [address] Jul, [facility] [place] [address] [id number] [address] [place] [id number] Jun, [facility] [place] [address] [place] [id number] [address] [place] [address] Jun, [facility] [place] [address] [id number] [address] [place] [id number] Jun, [facility] [place] [address] [id number] [address] [place] [address] May, [facility] [place] [address] [id number] [address] [place] [id number] May, Other chronic pain 338.29 ; Hypertension 401.9 and Constipation due to opioid therapy 564.09 [facility] [place] [address] [id number] [address] [place] [id number] 17 May, 2015 [facility] [place] [address] [id number] [address] [place] [address] May, [facility] [place] [address] [id number] [address] [place] [id number] Apr, [facility] [place] [address] [id number] [address] [place] [id number] Apr, Unspecified essential hypert ension 401.9 [facility] [place] [address] [id number] [address] [place] [id number] Apr, [facility] [place] [address] [id number] [address] [place] [id number] Apr, [facility] [place] [address] [id number] [address] [place] [id number] Apr, [facility] [place] [address] [id number] [address] [place] [id number] Apr, [facility] [place] [address] [id number] [address] [place] [id number] Apr, [facility] [place] [address] [id number] [address] [place] [id number] Apr, [facility] [place] [address] [id number] [address] [place] [id number] March, Unspecified essential hypert ension 401.9 [facility] [place] [address] [id number] [address] [place] [id number] March, [facility] [place] [address] [id number] [address] [place] [id number] March, [facility] [address] [id number] [address] [place] [address], [place] [address] 14 Feb, 2015 [facility] [address] [id number] [address] [place] [address], [place] [address] Feb, [facility] [address] [id number] [address] [place] [address], [place] [address] Jan, [facility] [address] [id number] [address] [place] [address], [place] [address] Jan, [facility] [address] [id number] [address] [place] [address], [place] [address] Jan, [facility] [address] [id number] [address] [place] [address], [place] [address] Jan, [facility] [address] [id number] [address] [place] [address], [place] [address] Jan, [facility] [address] [id number] [address] [place] [address], [place] [address] Jan, [facility] [address] [id number] [address] [place] [address], [place] [address] Jan, [facility] [address] [id number] [address] [place] [address], [place] [address] 16 Dec, 2014 [facility] [address] [id number] [address] [place] [address], [place] [address] Dec, [facility] [address] [id number] [address] [place] [address], [place] [address] Dec, [facility] [address] [id number] [address] [place] [address], [place] [address] Nov, [facility] [address] [id number] [address] [place] [address], [place] [address] Nov, [facility] [address] [id number] [place] [address], [place] [address] Oct, [facility] [address] [id number] [address] [place] [id number] 16 Oct, 2014 [facility] [address] [id number] [address] [place] [address], [place] [address] Oct, [facility] [address] [id number] [address] [place] [address], [place] [address] Oct, [facility] [address] [id number] [address] [place] [address], [place] [address] Oct, [facility] [address] [id number] [address] [place] [address], [place] [address] Oct, [facility] [address] [id number] [address] [place] [address], [place] [address] Oct, [facility] [address] [id number] [address] [place] [address], [place] [address] Oct, [facility] [address] [id number] [address] [place] [address], [place] [address] Sep, [facility] [address] [id number] [address] [place] [address], [place] [address] Sep, [facility] [address] [id number] [address] [place] [address], [place] [address] Sep, [facility] [address] [id number] [address] [place] [address], [place] [address] Sep, [facility] [address] [id number] [address] [place] [address], [place] [address] Sep, [facility] [address] [id number] [address] [place] [address] Sep, [facility] [address] [id number] [address] [place] [address], [place] [address] Aug, [facility] [address] [id number] [address] [place] [address], [place] [address] Aug, [facility] [address] [id number] [address] [place] [address], [place] [address] Aug, [facility] [address] [id number] [address] [place] [address], [place] [address] Aug, [facility] [address] [id number] [address] [place] [address], [place] [address] Aug, [facility] [address] [id number] [address] [place] [address], [place] [address] Aug, [facility] [address] [id number] [address] [place] [address], [place] [address] Aug, [facility] [address] [id number] [address] [place] [address], [place] [address] Aug, [facility] [address] [id number] [address] [place] [address], [place] [address] Aug, [facility] [address] [id number] [address] [place] [address], [place] [address] Aug, [facility] [address] [id number] [address] [place] [address], [place] [address] Jul, [facility] [address] [id number] [address] [place] [address], [place] [address] Jul, [facility] [address] [id number] [address] [place] [address], [place] [address] Jul, [facility] [address] [id number] [address] [place] [address], [place] [address] Jul, [facility] [address] [id number] [address] [place] [address], [place] [address] Jul, [facility] [address] [id number] [address] [place] [address], [place] [address] Jul, [facility] [address] [id number] [address] [place] [address], [place] [address] Jun, [facility] [address] [id number] [address] [place] [address], [place] [address] Jun, [facility] [address] [id number] [address] [place] [address], [place] [address] Jun, [facility] [address] [id number] [facility] [place] [address] Jun, [facility] [address] [id number] [facility] [place] [address] Jun, [facility] [address] [id number] [facility] [place] [address] Jun, [facility] [address] [id number] [address] [place] [address], [place] [address] May, [facility] [address] [id number] [address] [place] [address], [place] [address] May, [facility] [address] [id number] [address] [place] [address], [place] [address] May, [facility] [address] [id number] [address] [place] [address], [place] [address] May, [facility] [address] [id number] [address] [place] [address], [place] [address] May, [facility] [address] [id number] [address] [place] [address], [place] [address] Apr, [facility] [address] [id number] [address] [place] [address], [place] [address] Apr, [facility] [address] [id number] [address] [place] [address], [place] [address] Apr, [facility] [address] [id number] [address] [place] [address], [place] [address] Apr, [facility] [address] [id number] [address] [place] [address], [place] [address] March, [facility] [address] [id number] [address] [place] [address], [place] [address] March, [facility] [address] [id number] [address] [place] [address], [place] [address] March, [facility] [address] [id number] [facility] [place] [address] March, [facility] [address] [id number] [address] [place] [address], [place] [address] March, [facility] [address] [id number] [address] [place] [address], [place] [address] March, [facility] [address] [id number] [address] [place] [address], [place] [address] Feb, [facility] [address] [id number] [address] [place] [address], [place] [address] Feb, [facility] [address] [id number] [address] [place] [address], [place] [address] Feb, [facility] [address] [id number] [address] [place] [address], [place] [address] Feb, [facility] [address] [id number] [address] [place] [address], [place] [address] Feb, [facility] [address] [id number] [address] [place] [address], [place] [address] Feb, [facility] [address] [id number] [address] [place] [address], [place] [address] Feb, [facility] [address] [id number] [address] [place] [address], [place] [address] Feb, [facility] [address] [id number] [address] [place] [address], [place] [address] Jan, [facility] [address] [id number] [address] [place] [address], [place] [address] Jan, [facility] [address] [id number] [address] [place] [address], [place] [address] Jan, [facility] [address] [id number] [address] [place] [address], [place] [address] Jan, [facility] [address] [id number] [address] [place] [address], [place] [address] Jan, [facility] [address] [id number] [address] [place] [address], [place] [address] Jan, [facility] [address] [id number] [address] [place] [address], [place] [address] Dec, [facility] [address] [id number] [address] [place] [address], [place] [address] Dec, [facility] [address] [id number] [address] [place] [address], [place] [address] Nov, [facility] [address] [id number] [address] [place] [address], [place] [address] Nov, [facility] [address] [id number] [address] [place] [address], [place] [address] Nov, [facility] [address] [id number] [address] [place] [address], [place] [address] Nov, [facility] [address] [id number] [address] [place] [address], [place] [address] Nov, [facility] [address] [id number] [address] [place] [address], [place] [address] Nov, [facility] [address] [id number] [address] [place] [address], [place] [address] Nov, [facility] [address] [id number] [address] [place] [address], [place] [address] Nov, [facility] [address] [id number] [address] [place] [address], [place] [address] Nov, [facility] [address] [id number] [address] [place] [address], [place] [address] Nov, [facility] [address] [id number] [address] [place] [address], [place] [address] Nov, [facility] [address] [id number] [address] [place] [address], [place] [address] Nov, [facility] [address] [id number] [address] [place] [address] Nov, [facility] [place] [address] [id number] [address] [place] [address] Nov, [facility] [place] [address] [id number] [address] [place] [address] Nov, [facility] [place] [address] [id number] [address] [place] [address] Oct, [facility] [place] [address] [id number] [address] [place] [address] Oct, [facility] [place] [address] [id number] [address] [place] [address] Oct, [facility] [place] [address] [id number] [address] [place] [address] Oct, [facility] [place] [address] [id number] [address] [place] [address] Oct, [facility] [place] [address] [id number] [address] [place] [address] Oct, [facility] [place] [address] [id number] [address] [place] [address] Oct, [facility] [place] [address] [id number] [address] [place] [address] Oct, [facility] [place] [address] [id number] [address] [place] [address] Oct, [facility] [place] [address] [id number] [address] [place] [address] Aug, [facility] [place] [address] [id number] [address] [place] [address] Aug, IMMUNIZATIONS No Known Immunizations SOCIAL HISTORY [...] by Dr. Troy Michelle pain specialist in [place], [place] Medical History Chronic low back pain [...]
--- OUTSIDE RECORDS SUMMARY | 2020-06-19 02:09 | XMS REPORT ---
Author Author ARMANDO Mahsavirgen LOCK Organization [facility] Address [address] [place] [address] Care Team Providers Care Ag Service Manager Name Role Phone ARMANDONYASIA DIAZY Unavailable PROBLEMS Type Condition ICD9-CM Code ZFS59-CI Code Onset Dates Condition S tatus SNOMED Code Problem Other constipation K59.09 Active 1 [id number] Problem Primary insomnia F51.01 Active 193 675360 Problem Chronic pain syndrome G89.4 Active 548816353 Problem Essential hypertension I10 Active 23663499 Problem Anxiety F41.9 Active 13598657 Problem Major depressive disorder, recurrent episode, un specified severity F33.9 Active 52651918 Problem Atherosclerosis of viejas co ronary artery of viejas heart without angina pectoris I25.10 Active [id number] Problem Bilateral low back pain, with sciatica presence unspecifie d M54.5 Active 752189546 Problem Allergic rhinitis J30.9 Active 61 323683 Problem Fibromyalgia M79.7 Active 1305561 7 Problem Degenerative disc disease, thoracic M51.34 Active 26709127 Problem B12 deficiency E53.8 Active 67916 4004 Problem Degenerative disc disease, cervical M50.30 Active 08103302 Problem Hyperlipidemia, unspecified hyperlipidemia E78.5 Active 55521957 Problem GERD (gastroesophageal reflux disease) K21.9 Active 751643691 Problem Chronic obstructive pulmonary disease, unspecified COPD ty pe J44.9 Active 89026534 Problem CKD (chronic kidney disease) stage 3, GFR 30-59 ml/min N18.3 Active 594784460 Problem Cannabis abuse F12.10 Active 59017 009 ALLERGIES No Information ENCOUNTERS Encounter Location Date Diagnosis [facility] [address] [facility] [id number] [address] [place] [phone] Apr, B12 deficiency E53.8 [facility] [address] [facility] [id number] [address] [place] [address] Jan, Periumbilical hernia K42.9 ; CKD (chronic kidney disease) stage 3, GFR 30-59 ml/min N18.3 ; Essential hypertension I10 ; GERD (gastroesophageal reflux disease) K21.9 ; Hyperlipidemia, unspecified hyperlipidemia E78.5 and Major depressive disorder, recurrent episode, unspecified severity F33.9 [place] [address] [id number] [address] [place] [phone] Dec, Anxiety F41.9 [place] [address] [id number] [address] [place] [address] Nov, Elevated platelet count R79. 89 [place] [address] [id number] [address] [place] [phone] Nov, [place] [address] [facility] [id number] [address] [place] [phone] Nov, Elevated platelet count R79. 89 [place] [address] [facility] [id number] [address] [place] [address] Nov, Anxiety F41.9 [place] [address] [id number] [address] [place] [phone] Nov, Bilateral low back pain, wit h sciatica presence unspecified M54.5 ; Cervicalgia M54.2 ; Degenerative disc disease, cervical M50.30 and Degenerative disc disease, thoracic M51.34 [place] [address] [place] [id number] [address] [place] [phone] Nov, Chronic pain syndrome G89.4 and Bilateral low back pain, with sciatica presence unspecified M54.5 [place] [address] [place] [id number] [address] [place] [phone] Oct, Umbilical hernia without obs truction and without gangrene K42.9 [place] [address] [facility] [id number] [address] [place] [address] Oct, Chronic pain syndrome G89.4 [place] [address] [place] [id number] [address] [place] [address] Oct, Chronic pain syndrome G89.4 and Anxiety F41.9 [place] [address] [place] [id number] [address] [place] [phone] 12 Oct, 2018 Elevated platelet count R79. 89 [place] [address] [place] [id number] [address] [place] [phone] 10 Oct, 2018 CKD (chronic kidney disease) stage 3, GFR 30-59 ml/min N18.3 ; Other chest pain R07.89 ; Acute midline thoracic back pain M54.6 ; Essential hypertension I10 and History of osteoporosis Z87.39 [place] [id number] [place] [phone] 29 Sep, 2018 Chronic pain syndrome G89.4 [place] [address] [place] [id number] [place] [address] 16 Sep, 2018 [place] [address] [address] Sep, Anxiety F41.9 and Chronic pa in syndrome G89.4 [place] [address] [place] [id number] [address] [place] [phone] 18 Aug, 2018 Chronic pain syndrome G89.4 and Anxiety F41.9 [place] [address] [place] [id number] [address] [place] [phone] Aug, [place] [address] [address] Aug, Cannabis abuse F12.10 and Co ntrolled substance agreement terminated Z91.14 [place] [address] [place] [id number] [address] [place] [phone] 28 Jul, 2018 Chronic pain syndrome G89.4 ; Bilateral low back pain, with sciatica presence unspecified M54.5 ; Chronic prescription opiate use Z79.899 ; Essential hypertension I10 ; Hyperlipidemia, unspecified hyperlipidemia E78.5 ; CKD (chronic kidney disease) stage 3, GFR 30-59 ml/min N18.3 and Allergic rhinitis J30.9 [place] [address] [place] [id number] [place] [address] Jul, Chronic pain syndrome G89.4 and Anxiety F41.9 [place] [address] [place] [id number] [address] [place] [address] Jul, Screening for breast cancer Z12.31 and Major depressive disorder, recurrent episode, unspecified severity F33.9 [place] [address] [place] [id number] [address] [place] [phone] Jun, Chronic pain syndrome G89.4 and Anxiety F41.9 [place] [address] [place] [id number] [address] [place] [address] May, Chronic pain syndrome G89.4 and Anxiety F41.9 [place] [address] [place] [id number] [address] [place] [address] Apr, Anxiety F41.9 [place] [address] [place] [id number] [place] [address] Apr, Chronic prescription opiate use Z79.899 ; Chronic pain syndrome G89.4 ; Essential hypertension I10 ; Allergic rhinitis J30.9 and CKD (chronic kidney disease) stage 3, GFR 30-59 ml/min N18.3 [place] [address] [place] [id number] [address] [place] [phone] Apr, [place] [address] [place] [id number] [address] [place] [phone] March, Anxiety F41.9 and Chronic pa in syndrome G89.4 [place] [address] [facility] [id number] [address] [place] [address] March, CKD (chronic kidney disease) stage 3, GFR 30-59 ml/min N18.3 ; B12 deficiency E53.8 and Hyperlipidemia, unspecified hyperlipidemia E78.5 [place] [address] [facility] [id number] [address] [place] [phone] March, Anxiety F41.9 and Chronic pa in syndrome G89.4 [place] [address] [address] Feb, Anxiety F41.9 and Chronic pa in syndrome G89.4 [place] [address] [address] Jan, B12 deficiency E53.8 [place] [address] [address] Jan, [place] [address] [address] Jan, Anxiety F41.9 ; Chronic pain syndrome G89.4 and Essential hypertension I10 [place] [address] [address] Jan, CKD (chronic kidney disease) stage 3, [...] of right shoulder joint M75.51 [place] [address] [address] 28 Dec, 2017 Essential hypertension I10 [place] [address] [address] 15 Dec, 2017 Chronic pain syndrome G89.4 [place] [address] [address] Dec, Chronic pain syndrome G89.4 [place] [address] [address] Nov, [place] [address] [address] Nov, Chronic pain syndrome G89.4 and Anxiety F41.9 [place] [id number] [facility] [id number] [address] [place] [address] Oct, Chronic pain syndrome G89.4 ; Other constipation K59.09 and Chronic prescription opiate use Z79.899 [facility] [address] [facility] [id number] [address] [place] [phone] Oct, Chronic pain syndrome G89.4 and Anxiety F41.9 [place] [address] [facility] [id number] [address] [place] [address] Sep, Essential hypertension I10 [place] [address] [facility] [id number] [address] [place] [phone] 16 Sep, 2017 Chronic pain syndrome G89.4 and Anxiety F41.9 [place] [address] [facility] [id number] [address] [place] [phone] Aug, Chronic pain syndrome G89.4 and Anxiety F41.9 [place] [address] [place] [id number] [address] [place] [address] Jul, Essential hypertension I10 [place] [address] [facility] [id number] [address] [place] [phone] 22 Jul, 2017 Chronic obstructive pulmonar y disease, unspecified COPD type J44.9 [place] [address] [facility] [id number] [address] [place] [phone] Jul, Chronic pain syndrome G89.4 and Anxiety F41.9 [place] [address] [place] [id number] [address] [place] [phone] 13 Jul, 2017 Chronic pain syndrome G89.4 ; Essential hypertension I10 ; Fibromyalgia M79.7 ; CKD (chronic kidney disease) stage 3, GFR 30-59 ml/min N18.3 ; Subacromial bursitis, right M75.51 and Goals of care, co unseling/discussion Z71.89 [place] [address] [facility] [id number] [address] [place] [address] Jun, Chronic pain syndrome G89.4 and Anxiety F41.9 [place] [address] [id number] [address] [place] [address] May, Chronic pain syndrome G89.4 and Anxiety F41.9 [facility] [address] [facility] [id number] [address] [place] [address] Apr, Chronic pain syndrome G89.4 and Anxiety F41.9 [facility] [address] [facility] [id number] [address] [place] [address] Apr, Drug induced constipation K5 9.03 ; Chronic pain syndrome G89.4 and CKD (chronic kidney disease) stage 3, GFR 30-59 ml/min N18.3 [facility] [address] [facility] [id number] [address] [place] [address] Apr, Chronic pain syndrome G89.4 and Anxiety F41.9 [place] [address] [facility] [id number] [address] [place] [phone] March, Chronic pain syndrome G89.4 and Anxiety F41.9 [facility] [address] [facility] [id number] [address] [place] [id number] March, Decreased GFR R94.4 [facility] [address] [facility] [id number] [address] [place] [address] Feb, [facility] [address] [facility] [id number] [address] [place] [phone] Feb, Chronic pain syndrome G89.4 and Anxiety F41.9 [facility] [address] [facility] [id number] [address] [place] [phone] Jan, Decreased GFR R94.4 [facility] [address] [facility] [id number] [address] [place] [address] Jan, Decreased GFR R94.4 [facility] [address] [facility] [id number] [address] [place] [address] Jan, Allergic rhinitis J30.9 ; Es sential hypertension I10 ; Major depressive disorder, recurrent episode, unspecified severity F33.9 and Primary insomnia F51.01 [facility] [address] [place] [id number] [address] [place] [address] Jan, Acute right-sided thoracic b ack pain M54.6 ; Subacromial bursitis of right shoulder joint M75.51 ; Chronic pain syndrome G89.4 and Anxiety F41.9 [place] [address] [place] [id number] [address] [place] [address] Jan, Decreased GFR R94.4 [place] [address] [place] [id number] [address] [place] [address] Dec, Decreased GFR R94.4 [place] [address] [place] [id number] [place] [address] Dec, Decreased GFR R94.4 [place] [address] [address] Dec, Decreased GFR R94.4 [place] [address] [place] [id number] [place] [address] Dec, Decreased GFR R94.4 [place] [address] [address] Dec, Anxiety F41.9 and Bilateral low back pain, with sciatica presence unspecified M54.5 [place] [address] [address] Dec, Thrombocytosis D47.3 ; Hyper lipidemia, unspecified hyperlipidemia E78.5 ; Need for hepatitis C screening test Z11.59 and B12 deficiency E53.8 [place] [address] [place] [id number] [address] [place] [phone] Nov, Need for hepatitis C screeni ng test Z11.59 [place] [address] [place] [id number] [place] [address] Nov, Anxiety F41.9 and Bilateral low back pain, with sciatica presence unspecified M54.5 [place] [address] [place] [id number] [address] [place] [address] Oct, Bilateral low back pain, wit h sciatica presence unspecified M54.5 ; Chronic prescription opiate use Z79.899 ; Anxiety F41.9 ; Essential hypertension I10 ; Hyperlipidemia, unspecified hyperlipidemia E78.5 ; Health care maintenance Z00.00 and Thrombocytosis D47.3 [place] [address] [address] Sep, [facility] [address] [address] Sep, [place] [address] [address] Aug, [place] [address] [address] Jul, B12 deficiency E53.8 [place] [address] [address] Jul, [place] [address] [address] Jul, Essential hypertension I10 ; Chronic pain syndrome G89.4 ; Anxiety F41.9 ; Screening for breast cancer Z12.39 ; Atherosclerosis of viejas coronary artery of viejas heart without angina pectoris I25.10 ; Major depressive disorder, recurrent episode, unspecified severity F33.9 ; Primary insomnia F51.01 and Allergic rhinitis J30.9 [place] [address] [place] [id number] [address] [place] [address] Jun, [facility] [address] [place] [id number] [address] [place] [address] Jun, Leg wound, right, initial en counter S81.801A and Encounter for immunization Z23 [place] [address] [place] [id number] [address] [place] [address] Jun, Open wound of right ear, uns pecified open wound type, initial encounter S01.301A [place] [address] [place] [id number] [address] [place] [address] May, B12 deficiency E53.8 [facility] [address] [place] [address] May, [facility] [address] [place] [id number] [address] [place] [address] May, [facility] [address] [address] May, Chronic pain syndrome G89.4 ; Chronic prescription opiate use Z79.899 ; Allergic rhinitis J30.9 ; Essential hypertension I10 and Non-healing skin lesion L98.9 [place] [address] [address] Apr, [place] [address] [address] March, [facility] [address] [address] Feb, [facility] [address] [address] Feb, [place] [address] [address] Feb, Chronic pain syndrome G89.4 ; Anxiety F41.9 ; B12 deficiency E53.8 ; Allergic rhinitis J30.9 ; Fibromyalgia M79.7 ; Actinic keratosis L57.0 ; Skin rash R21 ; Open wound of right ear, unspecified open wound type, initial encounter S01.301A ; Subacromial bursitis, right M75.51 ; GERD (gastroesophageal reflux disease) K21.9 and Chronic obstructive pulmonary disease, unspecified COPD type J44.9 [facility] [address] [place] [id number] [address] [place] [address] Jan, [facility] [address] [address] Jan, Essential hypertension I10 [place] [address] [facility] [id number] [address] [place] [address] 11 Jan, 2016 [facility] [address] [facility] [id number] [address] [place] [address] Jan, [facility] [address] [facility] [id number] [address] [place] [address] Jan, [facility] [address] [facility] [id number] [address] [place] [address] Dec, [facility] [address] [facility] [id number] [address] [place] [address] Dec, Essential hypertension I10 [facility] [address] [facility] [id number] [place] [address] Dec, [facility] [address] [facility] [id number] [place] [address] Dec, B12 deficiency E53.8 and Ess ential hypertension I10 [facility] [address] [facility] [id number] [address] [place] [address] Dec, [facility] [address] [facility] [id number] [address] Nov, Right shoulder pain M25.511 [facility] [address] [address] Nov, Right shoulder pain M25.511 [facility] [address] [facility] [id number] [address] [place] [address] Nov, Essential hypertension I10 a nd B12 deficiency E53.8 [facility] [address] [facility] [id number] [address] [place] [address] 14 Nov, 2015 Major depressive disorder, r ecurrent episode, unspecified severity F33.9 ; Anxiety F41.9 ; Chronic pain syndrome G89.4 ; Essential hypertension I10 ; Hyperlipidemia, unspecified hyperlipidemia E78.5 ; Chronic prescription opiate use Z79.899 ; Allergic rhinitis J30.9 ; B12 deficiency E53.8 and Right shoulder pain M25.511 [facility] [address] [id number] [address] [place] [address] Oct, [facility] [address] [id number] [address] [place] [address] Oct, [facility] [address] [facility] [id number] [address] [place] [address] Sep, [facility] [address] [id number] [address] [place] [address] Sep, [facility] [address] [facility] [id number] [address] [place] [address] Aug, [facility] [address] [facility] [id number] [address] [place] [address] Aug, [facility] [address] [place] [id number] [address] [place] [address] Aug, [facility] [address] [place] [id number] [address] [place] [address] Aug, Other constipation K59.09 ; Hyperlipidemia, unspecified hyperlipidemia E78.5 ; Essential hypertension I10 ; Primary insomnia F51.01 ; Anxiety F41.9 ; Chronic pain syndrome G89.4 ; Right shoulder pain M25.511 and Acute cystitis without hematuria N30.00 [facility] [address] [place] [id number] [address] [place] [id number] 16 Jul, 2015 [facility] [address] [facility] [id number] [address] [place] [address] Jul, [facility] [address] [facility] [id number] [address] [place] [address] Jun, [facility] [address] [place] [id number] [address] [place] [address] Jun, [facility] [address] [facility] [id number] [address] [place] [address] Jun, [facility] [address] [facility] [id number] [address] [place] [phone] May, [facility] [address] [id number] [address] [place] [address] May, Other chronic pain 338.29 ; Hypertension 401.9 and Constipation due to opioid therapy 564.09 [facility] [address] [id number] [address] [place] [id number] 17 May, 2015 [facility] [address] [id number] [address] [place] [address] May, [facility] [address] [id number] [address] [place] [phone] Apr, [facility] [address] [id number] [address] [place] [phone] Apr, Unspecified essential hypert ension 401.9 [facility] [address] [id number] [address] [place] [phone] Apr, [facility] [address] [id number] [address] [place] [address] Apr, [facility] [address] [id number] [address] [place] [phone] Apr, [facility] [address] [id number] [address] [place] [id number] Apr, [facility] [address] [id number] [address] [place] [phone] Apr, [facility] [address] [id number] [address] [place] [address] Apr, [facility] [address] [id number] [address] [place] [address] March, Unspecified essential hypert ension 401.9 [facility] [address] [id number] [address] [place] [id number] March, [facility] [address] [id number] [address] [place] [id number] March, [facility] [address] [id number] [address] [place] [address], [place] [id number] 14 Feb, 2015 [facility] [address] [id number] [address] [place] [address], [place] [id number] Feb, [facility] [address] [id number] [address] [place] [address], [place] [id number] Jan, [facility] [address] [id number] [address] [place] [address], [place] [id number] Jan, [facility] [address] [id number] [address] [place] [address], [place] [id number] Jan, [facility] [address] [id number] [address] [place] [address], [place] [id number] Jan, [facility] [address] [id number] [address] [place] [address], [place] [id number] Jan, [facility] [address] [id number] [address] [place] [address], [place] [id number] Jan, [facility] [address] [id number] [address] [place] [address], [place] [address] Jan, [facility] [address] [id number] [address] [place] [address], [place] [id number] 16 Dec, 2014 [facility] [address] [id number] [address] [place] [address], [place] [address] Dec, [facility] [address] [id number] [address] [place] [address], [place] [address] Dec, [facility] [address] [id number] [address] [place] [address], [place] [address] Nov, [facility] [address] [id number] [address] [place] [address], [place] [id number] Nov, [facility] [address] [id number] [address] [place] [address], [place] [id number] Oct, [facility] [address] [id number] [address] [place] [id number] 16 Oct, 2014 [facility] [address] [id number] [address] [place] [address], [place] [address] Oct, [facility] [address] [id number] [address] [place] [address], [place] [address] Oct, [facility] [address] [id number] [address] [place] [address], [place] [address] Oct, [facility] [address] [id number] [address] [place] [address], [place] [address] Oct, [facility] [address] [id number] [address] [place] [address], [place] [id number] Oct, [facility] [address] [id number] [address] [place] [address], [place] [address] Oct, [facility] [address] [id number] [address] [place] [address], [place] [address] Sep, [facility] [address] [id number] [address] [place] [address], [place] [address] Sep, [facility] [address] [id number] [address] [place] [address], [place] [address] Sep, [facility] [address] [id number] [address] [place] [address], [place] [address] Sep, [facility] [address] [id number] [address] [place] [address], [place] [address] Sep, [facility] [address] [id number] [address] [place] [id number] Sep, [facility] [address] [id number] [address] [place] [address], [place] [address] Aug, [facility] [address] [id number] [address] [place] [address], [place] [address] Aug, [facility] [address] [id number] [address] [place] [address], [place] [address] Aug, [facility] [address] [id number] [address] [place] [address], [place] [id number] Aug, [facility] [address] [id number] [address] [place] [address], [place] [address] Aug, [facility] [address] [id number] [address] [place] [address], [place] [address] Aug, [facility] [address] [id number] [address] [place] [address], [place] [address] Aug, [facility] [address] [id number] [address] [place] [address], [place] [address] Aug, [facility] [address] [id number] [address] [place] [address], [place] [address] Aug, [facility] [address] [id number] [address] [place] [address], [place] [address] Aug, [facility] [address] [id number] [address] [place] [address], [place] [address] Jul, [facility] [address] [id number] [address] [place] [address], [place] [address] Jul, [facility] [address] [id number] [address] [place] [address], [place] [address] Jul, [facility] [address] [id number] [address] [place] [address], [place] [address] Jul, [facility] [address] [id number] [address] [place] [address], [place] [address] Jul, [facility] [address] [id number] [address] [place] [address], [place] [id number] Jul, [facility] [address] [id number] [address] [place] [address], [place] [address] Jun, [facility] [address] [id number] [address] [place] [address], [place] [id number] Jun, [facility] [address] [id number] [address] [place] [address], [place] [address] Jun, [facility] [address] [id number] [facility] [place] [address] Jun, [facility] [address] [id number] [facility] [place] [address] Jun, [facility] [address] [id number] [facility] [place] [address] Jun, [facility] [address] [id number] [address] [place] [address], [place] [address] May, [facility] [address] [id number] [address] [place] [address], [place] [address] May, [facility] [address] [id number] [address] [place] [address], [place] [address] May, [facility] [address] [id number] [address] [place] [address], [place] [address] May, [facility] [address] [id number] [address] [place] [address], [place] [address] May, [facility] [address] [id number] [address] [place] [address], [place] [address] Apr, [facility] [address] [id number] [address] [place] [address], [place] [address] Apr, [facility] [address] [id number] [address] [place] [address], [place] [address] Apr, [facility] [address] [id number] [address] [place] [address], [place] [address] Apr, [facility] [address] [id number] [address] [place] [address], [place] [address] March, [facility] [address] [id number] [address] [place] [address], [place] [address] March, [facility] [address] [id number] [address] [place] [address], [place] [address] March, [facility] [address] [id number] [facility] [place] [address] March, [facility] [address] [id number] [address] [place] [address], [place] [address] March, [facility] [address] [id number] [address] [place] [address], [place] [address] March, [facility] [address] [id number] [address] [place] [address], [place] [address] Feb, [facility] [address] [id number] [address] [place] [address], [place] [address] Feb, [facility] [address] [id number] [address] [place] [address], [place] [address] Feb, [facility] [address] [id number] [address] [place] [address], [place] [address] Feb, [facility] [address] [id number] [address] [place] [address], [place] [address] Feb, [facility] [address] [id number] [address] [place] [address], [place] [address] Feb, [facility] [address] [id number] [address] [place] [address], [place] [address] Feb, [facility] [address] [id number] [address] [place] [address], [place] [address] Feb, [facility] [address] [id number] [address] [place] [address], [place] [address] Jan, [facility] [address] [id number] [address] [place] [address], [place] [address] Jan, [facility] [address] [id number] [address] [place] [address], [place] [address] Jan, [facility] [address] [id number] [address] [place] [address], [place] [address] Jan, [facility] [address] [id number] [address] [place] [address], [place] [address] Jan, [facility] [address] [id number] [address] [place] [address], [place] [address] Jan, [facility] [address] [id number] [address] [place] [address], [place] [address] Dec, [facility] [address] [id number] [address] [place] [address], [place] [address] Dec, [facility] [address] [id number] [address] [place] [address], [place] [address] Nov, [facility] [address] [id number] [address] [place] [address], [place] [address] Nov, [facility] [address] [id number] [address] [place] [address], [place] [address] Nov, [facility] [address] [id number] [address] [place] [address], [place] [address] Nov, [facility] [address] [id number] [address] [place] [address], [place] [address] Nov, [facility] [address] [id number] [address] [place] [address], [place] [address] Nov, [facility] [address] [id number] [address] [place] [address], [place] [address] Nov, [facility] [address] [id number] [address] [place] [address], [place] [address] Nov, [facility] [address] [id number] [address] [place] [address], [place] [address] Nov, [facility] [address] [id number] [address] [place] [address], [place] [address] Nov, [facility] [address] [id number] [address] [place] [address], [place] [address] Nov, [facility] [address] [id number] [address] [place] [address], [place] [address] Nov, [facility] [address] [id number] [address] [place] [id number] Nov, [facility] [address] [id number] [address] [place] [id number] Nov, [facility] [address] [id number] [address] [place] [id number] Nov, [facility] [address] [id number] [address] [place] [id number] Oct, [facility] [address] [id number] [address] [place] [id number] Oct, [facility] [address] [id number] [address] [place] [id number] Oct, [facility] [address] [id number] [address] [place] [id number] Oct, [facility] [address] [id number] [address] [place] [id number] Oct, [facility] [address] [id number] [address] [place] [id number] Oct, [facility] [address] [id number] [address] [place] [id number] Oct, [facility] [address] [id number] [address] [place] [id number] Oct, [facility] [address] [id number] [address] [place] [id number] Oct, [facility] [address] [id number] [address] [place] [id number] Aug, [facility] [address] [id number] [address] [place] [id number] Aug, IMMUNIZATIONS No Known Immunizations SOCIAL HISTORY [...] by Dr. Troy Michelle pain specialist in [place], [place] Medical History Chronic low back pain [...]
--- OUTSIDE RECORDS SUMMARY | 2020-06-19 02:09 | XMS REPORT ---
Author Author Mahsa Walker Organization [facility] Address [address] [place] [address] Care Team Providers Care Host/Hostess Ground Name Role Phone LISETH Walker Unavailable PROBLEMS Type Condition ICD9-CM Code [id number] Code Onset Dates Condition S tatus SNOMED Code Problem Other constipation K59.09 Active 1 [id number] Problem Primary insomnia F51.01 Active 193 042043 Problem Chronic pain syndrome G89.4 Active 848437285 Problem Essential hypertension I10 Active 28153153 Problem Anxiety F41.9 Active 03812439 Problem Major depressive disorder, recurrent episode, un specified severity F33.9 Active 75423678 Problem Atherosclerosis of [place] co ronary artery of [place] heart without angina pectoris I25.10 Active [id number] Problem Bilateral low back pain, with sciatica presence unspecifie d M54.5 Active 803032982 Problem Allergic rhinitis J30.9 Active 61 932321 Problem Fibromyalgia M79.7 Active 9157840 7 Problem Degenerative disc disease, thoracic M51.34 Active 10164503 Problem B12 deficiency E53.8 Active 53588 4004 Problem Degenerative disc disease, cervical M50.30 Active 20604127 Problem Hyperlipidemia, unspecified hyperlipidemia E78.5 Active 63320463 Problem GERD (gastroesophageal reflux disease) K21.9 Active 303233533 Problem Chronic obstructive pulmonary disease, unspecified COPD ty pe J44.9 Active 56642788 Problem CKD (chronic kidney disease) stage 3, GFR 30-59 ml/min N18.3 Active 550612562 Problem Cannabis abuse F12.10 Active 55163 009 ALLERGIES No Information ENCOUNTERS Encounter Location Date Diagnosis [facility] [address] [facility] [id number] [address] [place] [phone] Apr, B12 deficiency E53.8 [facility] [address] [facility] [id number] [address] [place] [address] Jan, Periumbilical hernia K42.9 ; CKD (chronic kidney disease) stage 3, GFR 30-59 ml/min N18.3 ; Essential hypertension I10 ; GERD (gastroesophageal reflux disease) K21.9 ; Hyperlipidemia, unspecified hyperlipidemia E78.5 and Major depressive disorder, recurrent episode, unspecified severity F33.9 [place] [address] [facility] [id number] [address] [place] [address] Dec, Anxiety F41.9 [place] [address] [id number] [address] [place] [address] Nov, Elevated platelet count R79. 89 [place] [address] [id number] [address] [place] [address] Nov, [place] [address] [place] [id number] [address] [place] [address] Nov, Elevated platelet count R79. 89 [place] [address] [place] [id number] [address] [place] [address] Nov, Anxiety F41.9 [place] [address] [facility] [id number] [address] [place] [address] Nov, Bilateral low back pain, wit h sciatica presence unspecified M54.5 ; Cervicalgia M54.2 ; Degenerative disc disease, cervical M50.30 and Degenerative disc disease, thoracic M51.34 [place] [address] [place] [id number] [address] [place] [address] Nov, Chronic pain syndrome G89.4 and Bilateral low back pain, with sciatica presence unspecified M54.5 [place] [address] [place] [id number] [address] [place] [address] Oct, Umbilical hernia without obs truction and without gangrene K42.9 [place] [address] [facility] [id number] [address] [place] [address] Oct, Chronic pain syndrome G89.4 [place] [address] [place] [id number] [address] [place] [address] Oct, Chronic pain syndrome G89.4 and Anxiety F41.9 [place] [address] [address] 12 Oct, 2018 Elevated platelet count R79. 89 [place] [address] [place] [id number] [address] [place] [address] Oct, CKD (chronic kidney disease) stage 3, GFR 30-59 ml/min N18.3 ; Other chest pain R07.89 ; Acute midline thoracic back pain M54.6 ; Essential hypertension I10 and History of osteoporosis Z87.39 [place] [address] [place] [id number] [address] [place] [id number] 29 Sep, 2018 Chronic pain syndrome G89.4 [place] [address] [place] [id number] [place] [address] 16 Sep, 2018 [place] [address] [address] Sep, Anxiety F41.9 and Chronic pa in syndrome G89.4 [place] [address] [place] [id number] [address] [place] [id number] 18 Aug, 2018 Chronic pain syndrome G89.4 and Anxiety F41.9 [place] [address] [place] [id number] [place] [address] Aug, [place] [address] [address] Aug, Cannabis abuse F12.10 and Co ntrolled substance agreement terminated Z91.14 [place] [address] [place] [id number] [address] [place] [address] Jul, Chronic pain syndrome G89.4 ; Bilateral low back pain, with sciatica presence unspecified M54.5 ; Chronic prescription opiate use Z79.899 ; Essential hypertension I10 ; Hyperlipidemia, unspecified hyperlipidemia E78.5 ; CKD (chronic kidney disease) stage 3, GFR 30-59 ml/min N18.3 and Allergic rhinitis J30.9 [place] [address] [place] [id number] [address] [place] [address] Jul, Chronic pain syndrome G89.4 and Anxiety F41.9 [place] [address] [place] [id number] [address] [place] [address] Jul, Screening for breast cancer Z12.31 and Major depressive disorder, recurrent episode, unspecified severity F33.9 [place] [address] [place] [id number] [address] [place] [address] Jun, Chronic pain syndrome G89.4 and Anxiety F41.9 [place] [address] [place] [id number] [address] [place] [address] May, Chronic pain syndrome G89.4 and Anxiety F41.9 [place] [address] [place] [id number] [address] [place] [address] Apr, Anxiety F41.9 [place] [address] [address] Apr, Chronic prescription opiate use Z79.899 ; Chronic pain syndrome G89.4 ; Essential hypertension I10 ; Allergic rhinitis J30.9 and CKD (chronic kidney disease) stage 3, GFR 30-59 ml/min N18.3 [place] [address] [place] [id number] [address] [place] [address] Apr, [place] [address] [address] March, Anxiety F41.9 and Chronic pa in syndrome G89.4 [place] [address] [facility] [id number] [address] [place] [address] March, CKD (chronic kidney disease) stage 3, GFR 30-59 ml/min N18.3 ; B12 deficiency E53.8 and Hyperlipidemia, unspecified hyperlipidemia E78.5 [place] [address] [place] [id number] [address] [place] [address] March, Anxiety F41.9 and Chronic pa in syndrome G89.4 [place] [address] [address] Feb, Anxiety F41.9 and Chronic pa in syndrome G89.4 [place] [address] [address] Jan, B12 deficiency E53.8 [place] [address] [address] Jan, [place] [address] [address] Jan, Anxiety F41.9 ; Chronic pain syndrome G89.4 and Essential hypertension I10 [place] [address] [address] Jan, CKD (chronic kidney disease) stage 3, [...] Subacromial bursitis of right shoulder joint M75.51 [place] [address] [address] Dec, Essential hypertension I10 [place] [address] [address] 15 Dec, 2017 Chronic pain syndrome G89.4 [place] [address] [address] Dec, Chronic pain syndrome G89.4 [place] [address] [address] Nov, [place] [address] [address] Nov, Chronic pain syndrome G89.4 and Anxiety F41.9 [facility] [address] [place] [id number] [address] [place] [address] Oct, Chronic pain syndrome G89.4 ; Other constipation K59.09 and Chronic prescription opiate use Z79.899 [facility] [address] [facility] [id number] [address] [place] [address] Oct, Chronic pain syndrome G89.4 and Anxiety F41.9 [place] [address] [place] [id number] [address] [place] [address] Sep, Essential hypertension I10 [place] [address] [place] [id number] [place] [address] Sep, Chronic pain syndrome G89.4 and Anxiety F41.9 [place] [address] [place] [id number] [address] [place] [address] Aug, Chronic pain syndrome G89.4 and Anxiety F41.9 [place] [address] [place] [id number] [address] [place] [address] Jul, Essential hypertension I10 [place] [address] [place] [id number] [address] [place] [address] 22 Jul, 2017 Chronic obstructive pulmonar y disease, unspecified COPD type J44.9 [place] [address] [place] [id number] [address] [place] [address] Jul, Chronic pain syndrome G89.4 and Anxiety F41.9 [place] [address] [place] [id number] [address] [place] [id number] 13 Jul, 2017 Chronic pain syndrome G89.4 ; Essential hypertension I10 ; Fibromyalgia M79.7 ; CKD (chronic kidney disease) stage 3, GFR 30-59 ml/min N18.3 ; Subacromial bursitis, right M75.51 and Goals of care, co unseling/discussion Z71.89 [place] [address] [place] [id number] [address] [place] [address] Jun, Chronic pain syndrome G89.4 and Anxiety F41.9 [facility] [address] [id number] [address] [place] [address] May, Chronic pain syndrome G89.4 and Anxiety F41.9 [facility] [address] [id number] [address] [place] [address] Apr, Chronic pain syndrome G89.4 and Anxiety F41.9 [facility] [address] [facility] [id number] [address] [place] [address] Apr, Drug induced constipation K5 9.03 ; Chronic pain syndrome G89.4 and CKD (chronic kidney disease) stage 3, GFR 30-59 ml/min N18.3 [facility] [address] [id number] [address] [place] [address] 02 Apr, 2017 Chronic pain syndrome G89.4 and Anxiety F41.9 [facility] [address] [facility] [id number] [address] [place] [address] March, Chronic pain syndrome G89.4 and Anxiety F41.9 [facility] [address] [id number] [address] [place] [address] March, Decreased GFR R94.4 [facility] [address] [facility] [id number] [address] [place] [address] Feb, [facility] [address] [facility] [id number] [address] [place] [address] Feb, Chronic pain syndrome G89.4 and Anxiety F41.9 [facility] [address] [facility] [id number] [address] [place] [address] Jan, Decreased GFR R94.4 [facility] [address] [facility] [id number] [address] [place] [address] Jan, Decreased GFR R94.4 [facility] [address] [facility] [id number] [address] [place] [address] Jan, Allergic rhinitis J30.9 ; Es sential hypertension I10 ; Major depressive disorder, recurrent episode, unspecified severity F33.9 and Primary insomnia F51.01 [place] [address] [address] Jan, Acute right-sided thoracic b ack pain M54.6 ; Subacromial bursitis of right shoulder joint M75.51 ; Chronic pain syndrome G89.4 and Anxiety F41.9 [place] [address] [address] Jan, Decreased GFR R94.4 [place] [address] [address] Dec, Decreased GFR R94.4 [place] [address] [address] Dec, Decreased GFR R94.4 [place] [address] [address] Dec, Decreased GFR R94.4 [place] [address] [address] Dec, Decreased GFR R94.4 [place] [address] [address] Dec, Anxiety F41.9 and Bilateral low back pain, with sciatica presence unspecified M54.5 [place] [address] [address] Dec, Thrombocytosis D47.3 ; Hyper lipidemia, unspecified hyperlipidemia E78.5 ; Need for hepatitis C screening test Z11.59 and B12 deficiency E53.8 [place] [address] [address] Nov, Need for hepatitis C screeni ng test Z11.59 [place] [address] [address] Nov, Anxiety F41.9 and Bilateral low back pain, with sciatica presence unspecified M54.5 [place] [address] [address] Oct, Bilateral low back pain, wit h sciatica presence unspecified M54.5 ; Chronic prescription opiate use Z79.899 ; Anxiety F41.9 ; Essential hypertension I10 ; Hyperlipidemia, unspecified hyperlipidemia E78.5 ; Health care maintenance Z00.00 and Thrombocytosis D47.3 [place] [address] [address] Sep, [facility] [address] [address] Sep, [place] [address] [address] Aug, [place] [address] [address] Jul, B12 deficiency E53.[address] [address] Jul, [place] [address] [address] Jul, Essential hypertension I10 ; Chronic pain syndrome G89.4 ; Anxiety F41.9 ; Screening for breast cancer Z12.39 ; Atherosclerosis of [place] coronary artery of [place] heart without angina pectoris I25.10 ; Major depressive disorder, recurrent episode, unspecified severity F33.9 ; Primary insomnia F51.01 and Allergic rhinitis J30.9 [place] [id number] [place] [address] Jun, [facility] [address] [address] Jun, Leg wound, right, initial en counter S81.801A and Encounter for immunization Z23 [place] [id number] [place] [address] Jun, Open wound of right ear, uns pecified open wound type, initial encounter S01.301A [place] [address] [address] May, B12 deficiency E53.8 [facility] [address] [address] May, [facility] [address] [address] May, [facility] [address] [address] May, Chronic pain syndrome G89.4 ; Chronic prescription opiate use Z79.899 ; Allergic rhinitis J30.9 ; Essential hypertension I10 and Non-healing skin lesion L98.9 [place] [address] [address] Apr, [place] [address] [address] March, [facility] [address] [address] Feb, [facility] [address] [address] Feb, [place] [address] [address] Feb, Chronic pain syndrome G89.4 ; Anxiety F41.9 ; B12 deficiency E53.8 ; Allergic rhinitis J30.9 ; Fibromyalgia M79.7 ; Actinic keratosis L57.0 ; Skin rash R21 ; Open wound of right ear, unspecified open wound type, initial encounter S01.301A ; Subacromial bursitis, right M75.51 ; GERD (gastroesophageal reflux disease) K21.9 and Chronic obstructive pulmonary disease, unspecified COPD type J44.9 [facility] [address] [address] Jan, [facility] [address] [address] Jan, Essential hypertension I10 [facility] [address] [facility] [id number] [address] [place] [address] Jan, [facility] [address] [facility] [id number] [address] [place] [address] Jan, [facility] [address] [facility] [id number] [address] [place] [address] Jan, [facility] [address] [facility] [id number] [address] [place] [address] Dec, [facility] [address] [facility] [id number] [address] [place] [address] Dec, Essential hypertension I10 [facility] [address] [facility] [id number] [address] [place] [address] Dec, [facility] [address] [facility] [id number] [address] [place] [address] Dec, B12 deficiency E53.8 and Ess ential hypertension I10 [facility] [address] [facility] [id number] [address] [place] [address] Dec, [facility] [address] [facility] [id number] [address] [place] [address] Nov, Right shoulder pain M25.511 [facility] [address] [place] [address] Nov, Right shoulder pain M25.511 [facility] [address] [facility] [id number] [address] [place] [address] Nov, Essential hypertension I10 a nd B12 deficiency E53.8 [facility] [address] [facility] [id number] [address] [place] [address] 14 Nov, 2015 Major depressive disorder, r ecurrent episode, unspecified severity F33.9 ; Anxiety F41.9 ; Chronic pain syndrome G89.4 ; Essential hypertension I10 ; Hyperlipidemia, unspecified hyperlipidemia E78.5 ; Chronic prescription opiate use Z79.899 ; Allergic rhinitis J30.9 ; B12 deficiency E53.8 and Right shoulder pain M25.511 [facility] [address] [id number] [address] [place] [address] Oct, [facility] [address] [id number] [address] [place] [address] Oct, [facility] [address] [facility] [id number] [address] [place] [address] Sep, [facility] [address] [id number] [address] [place] [address] Sep, [facility] [address] [facility] [id number] [address] [place] [address] Aug, [facility] [address] [id number] [address] [place] [address] Aug, [facility] [address] [place] [id number] [address] [place] [address] Aug, [facility] [address] [facility] [id number] [address] [place] [address] Aug, Other constipation K59.09 ; Hyperlipidemia, unspecified hyperlipidemia E78.5 ; Essential hypertension I10 ; Primary insomnia F51.01 ; Anxiety F41.9 ; Chronic pain syndrome G89.4 ; Right shoulder pain M25.511 and Acute cystitis without hematuria N30.00 [facility] [address] [facility] [id number] [address] [place] [address] Jul, [facility] [address] [id number] [address] [place] [address] Jul, [facility] [address] [facility] [id number] [address] [place] [address] Jun, [facility] [address] [facility] [id number] [address] [place] [address] Jun, [facility] [address] [facility] [id number] [address] [place] [address] Jun, [facility] [address] [facility] [id number] [address] [place] [address] May, [facility] [address] [id number] [address] [place] [address] May, Other chronic pain 338.29 ; Hypertension 401.9 and Constipation due to opioid therapy 564.09 [facility] [address] [id number] [address] [place] [address] 17 May, 2015 [facility] [address] [id number] [address] [place] [address] May, [facility] [address] [id number] [address] [place] [address] Apr, [facility] [address] [id number] [address] [place] [address] Apr, Unspecified essential hypert ension 401.9 [facility] [address] [id number] [address] [place] [address] Apr, [facility] [address] [id number] [address] [place] [address] Apr, [facility] [address] [id number] [address] [place] [address] Apr, [facility] [address] [id number] [address] [place] [address] Apr, [facility] [address] [id number] [address] [place] [address] Apr, [facility] [address] [id number] [address] [place] [address] Apr, [facility] [address] [id number] [address] [place] [address] March, Unspecified essential hypert ension 401.9 [facility] [address] [id number] [address] [place] [address] March, [facility] [address] [facility] [id number] [address] [place] [address] March, [facility] [address] [id number] [address] [place] [address], [place] [address] 14 Feb, 2015 [facility] [address] [id number] [address] [place] [address], [place] [address] Feb, [facility] [address] [id number] [address] [place] [address], [place] [address] Jan, [facility] [address] [id number] [address] [place] [address], [place] [address] Jan, [facility] [address] [id number] [address] [place] [address], [place] [address] Jan, [facility] [address] [id number] [address] [place] [address], [place] [address] Jan, [facility] [address] [id number] [address] [place] [address], [place] [address] Jan, [facility] [address] [id number] [address] [place] [address], [place] [address] Jan, [facility] [address] [id number] [address] [place] [address], [place] [address] Jan, [facility] [address] [id number] [address] [place] [address], [place] [address] 16 Dec, 2014 [facility] [address] [id number] [address] [place] [address], [place] [address] Dec, [facility] [address] [id number] [address] [place] [address], [place] [address] Dec, [facility] [address] [id number] [address] [place] [address], [place] [address] Nov, [facility] [address] [id number] [address] [place] [address], [place] [address] Nov, [facility] [address] [id number] [address] [place] [address], [place] [address] Oct, [facility] [address] [id number] [address] [place] [address], [place] [address] 16 Oct, 2014 [facility] [address] [id number] [address] [place] [address], [place] [address] Oct, [facility] [address] [id number] [address] [place] [address], [place] [address] Oct, [facility] [address] [id number] [address] [place] [address], [place] [address] Oct, [facility] [address] [id number] [address] [place] [address], [place] [address] Oct, [facility] [address] [id number] [address] [place] [address], [place] [address] Oct, [facility] [address] [id number] [address] [place] [address], [place] [address] Oct, [facility] [address] [id number] [address] [place] [address], [place] [address] Sep, [facility] [address] [id number] [address] [place] [address], [place] [address] Sep, [facility] [address] [id number] [address] [place] [address], [place] [address] Sep, [facility] [address] [id number] [address] [place] [address], [place] [address] Sep, [facility] [address] [id number] [address] [place] [address], [place] [address] Sep, [facility] [address] [id number] [address] [place] [address], [place] [address] Sep, [facility] [address] [id number] [address] [place] [address], [place] [address] Aug, [facility] [address] [id number] [address] [place] [address], [place] [address] Aug, [facility] [address] [id number] [address] [place] [address], [place] [address] Aug, [facility] [address] [id number] [address] [place] [address], [place] [address] Aug, [facility] [address] [id number] [address] [place] [address], [place] [address] Aug, [facility] [address] [id number] [address] [place] [address], [place] [address] Aug, [facility] [address] [id number] [address] [place] [address], [place] [address] Aug, [facility] [address] [id number] [address] [place] [address], [place] [address] Aug, [facility] [address] [id number] [address] [place] [address], [place] [address] Aug, [facility] [address] [id number] [address] [place] [address], [place] [address] Aug, [facility] [address] [id number] [address] [place] [address], [place] [address] Jul, [facility] [address] [id number] [address] [place] [address], [place] [address] Jul, [facility] [address] [id number] [address] [place] [address], [place] [address] Jul, [facility] [address] [id number] [address] [place] [address], [place] [address] Jul, [facility] [address] [id number] [address] [place] [address], [place] [address] Jul, [facility] [address] [id number] [address] [place] [address], [place] [address] Jul, [facility] [address] [id number] [address] [place] [address], [place] [address] Jun, [facility] [address] [id number] [address] [place] [address], [place] [address] Jun, [facility] [address] [id number] [address] [place] [address], [place] [address] Jun, [facility] [address] [id number] [facility] [place] [address] Jun, [facility] [address] [id number] [address] [place] [address], [place] [address] Jun, [facility] [address] [id number] [address] [place] [address], [place] [address] Jun, [facility] [address] [id number] [address] [place] [address], [place] [address] May, [facility] [address] [id number] [address] [place] [address], [place] [address] May, [facility] [address] [id number] [address] [place] [address], [place] [address] May, [facility] [address] [id number] [address] [place] [address], [place] [address] May, [facility] [address] [id number] [address] [place] [address], [place] [address] May, [facility] [address] [id number] [address] [place] [address], [place] [address] Apr, [facility] [address] [id number] [address] [place] [address], [place] [address] Apr, [facility] [address] [id number] [address] [place] [address], [place] [address] Apr, [facility] [address] [id number] [address] [place] [address], [place] [address] Apr, [facility] [address] [id number] [address] [place] [address], [place] [address] March, [facility] [address] [id number] [address] [place] [address], [place] [address] March, [facility] [address] [id number] [address] [place] [address], [place] [address] March, [facility] [address] [id number] [facility] [place] [address] March, [facility] [address] [id number] [address] [place] [address], [place] [address] March, [facility] [address] [id number] [address] [place] [address], [place] [address] March, [facility] [address] [id number] [address] [place] [address], [place] [address] Feb, [facility] [address] [id number] [address] [place] [address], [place] [address] Feb, [facility] [address] [id number] [address] [place] [address], [place] [address] Feb, [facility] [address] [id number] [address] [place] [address], [place] [address] Feb, [facility] [address] [id number] [address] [place] [address], [place] [address] Feb, [facility] [address] [id number] [address] [place] [address], [place] [address] Feb, [facility] [address] [id number] [address] [place] [address], [place] [address] Feb, [facility] [address] [id number] [address] [place] [address], [place] [address] Feb, [facility] [address] [id number] [address] [place] [address], [place] [address] Jan, [facility] [address] [id number] [address] [place] [address], [place] [address] Jan, [facility] [address] [id number] [address] [place] [address], [place] [address] Jan, [facility] [address] [id number] [address] [place] [address], [place] [address] Jan, [facility] [address] [id number] [address] [place] [address], [place] [address] Jan, [facility] [address] [id number] [address] [place] [address], [place] [address] Jan, [facility] [address] [id number] [address] [place] [address], [place] [address] Dec, [facility] [address] [id number] [address] [place] [address], [place] [address] Dec, [facility] [address] [id number] [address] [place] [address], [place] [address] Nov, [facility] [address] [id number] [address] [place] [address], [place] [address] Nov, [facility] [address] [id number] [address] [place] [address], [place] [address] Nov, [facility] [address] [id number] [address] [place] [address], [place] [address] Nov, [facility] [address] [id number] [address] [place] [address], [place] [address] Nov, [facility] [address] [id number] [address] [place] [address], [place] [address] Nov, [facility] [address] [id number] [address] [place] [address], [place] [address] Nov, [facility] [address] [id number] [address] [place] [address], [place] [address] Nov, [facility] [address] [id number] [address] [place] [address], [place] [address] Nov, [facility] [address] [id number] [address] [place] [address], [place] [address] Nov, [facility] [address] [id number] [address] [place] [address], [place] [address] Nov, [facility] [address] [id number] [address] [place] [address], [place] [address] Nov, [facility] [address] [id number] [address] [place] [address] Nov, [facility] [address] [id number] [address] [place] [address] Nov, [facility] [address] [id number] [address] [place] [address] Nov, [facility] [address] [id number] [address] [place] [address] Oct, [facility] [address] [id number] [address] [place] [address] Oct, [facility] [address] [id number] [address] [place] [address] Oct, [facility] [address] [id number] [address] [place] [address] Oct, [facility] [address] [id number] [address] [place] [address] Oct, [facility] [address] [id number] [address] [place] [address] Oct, [facility] [address] [id number] [address] [place] [address] Oct, [facility] [address] [id number] [address] [place] [address] Oct, [facility] [address] [id number] [address] [place] [address] Oct, [facility] [address] [id number] [address] [place] [address] Aug, [facility] [address] [id number] [address] [place] [address] Aug, IMMUNIZATIONS No Known Immunizations SOCIAL HISTORY Never Assessed REASON FOR VISIT PLAN OF CARE VITAL SIGNS Height 69 in 2014-10-20 Weight 251.12 lbs 2014-10-20 Temperature 97.2 degrees Fahrenheit 2014-10-20 Heart Rate 68 bpm 2014-10-20 Respiratory Rate 28 2014-10-20 Blood pressure systolic 158 mmHg 2014-10-20 Blood pressure diastolic 100 mmHg 2014-10-20 MEDICATIONS Unknown Medications RESULTS No Results PROCEDURES No Known procedures INSTRUCTIONS MEDICATIONS ADMINISTERED No Known Medications MEDICAL (GENERAL) HISTORY Type Description Date Medical History hypertension Medical History asthma Medical History Arthritis Medical History Hypoglycemia Medical History Heart Cath 11/05/2013 Medical History herniated disc--Seen by Dr. Troy Michelle pain specialist in [place], [place] Medical History Chronic low back pain [...]
--- OUTSIDE RECORDS SUMMARY | 2020-06-19 02:10 | XMS REPORT ---
Author Author ARMANDO Mahsavirgen LOCK Organization [facility] Address [address] [place] [address] Care Team Providers Care Clip On Sunglasses Inspector Name Role Phone ARMANDONYASIA DIAZY Unavailable PROBLEMS Type Condition ICD9-CM Code [id number] Code Onset Dates Condition S tatus SNOMED Code Problem Other constipation K59.09 Active 1 22520480980313 Problem Primary insomnia F51.01 Active 193 281931 Problem Chronic pain syndrome G89.4 Active 866282595 Problem Essential hypertension I10 Active 22869792 Problem Anxiety F41.9 Active 40452973 Problem Major depressive disorder, recurrent episode, un specified severity F33.9 Active 55778365 Problem Atherosclerosis of [place] co ronary artery of [place] heart without angina pectoris I25.10 Active [id number] Problem Bilateral low back pain, with sciatica presence unspecifie d M54.5 Active 082338346 Problem Allergic rhinitis J30.9 Active 61 088518 Problem Fibromyalgia M79.7 Active 6403365 7 Problem Degenerative disc disease, thoracic M51.34 Active 64200406 Problem B12 deficiency E53.8 Active 60161 4004 Problem Degenerative disc disease, cervical M50.30 Active 67054266 Problem Hyperlipidemia, unspecified hyperlipidemia E78.5 Active 49564146 Problem GERD (gastroesophageal reflux disease) K21.9 Active 543650420 Problem Chronic obstructive pulmonary disease, unspecified COPD ty pe J44.9 Active 77895020 Problem CKD (chronic kidney disease) stage 3, GFR 30-59 ml/min N18.3 Active 981986561 Problem Cannabis abuse F12.10 Active 19948 009 ALLERGIES No Information ENCOUNTERS Encounter Location Date Diagnosis [facility] [address] [facility] [id number] [address] [place] [phone] Apr, B12 deficiency E53.8 [facility] [address] [facility] [id number] [address] [place] [address] Jan, Periumbilical hernia K42.9 ; CKD (chronic kidney disease) stage 3, GFR 30-59 ml/min N18.3 ; Essential hypertension I10 ; GERD (gastroesophageal reflux disease) K21.9 ; Hyperlipidemia, unspecified hyperlipidemia E78.5 and Major depressive disorder, recurrent episode, unspecified severity F33.9 [place] [address] [id number] [address] [place] [address] Dec, Anxiety F41.9 [place] [address] [id number] [address] [place] [address] Nov, Elevated platelet count R79. 89 [place] [address] [id number] [address] [place] [address] Nov, [place] [address] [facility] [id number] [address] [place] [address] Nov, Elevated platelet count R79. 89 [place] [address] [facility] [id number] [address] [place] [address] Nov, Anxiety F41.9 [place] [address] [id number] [address] [place] [address] Nov, Bilateral low back pain, wit h sciatica presence unspecified M54.5 ; Cervicalgia M54.2 ; Degenerative disc disease, cervical M50.30 and Degenerative disc disease, thoracic M51.34 [place] [address] [place] [id number] [address] [place] [address] Nov, Chronic pain syndrome G89.4 and Bilateral low back pain, with sciatica presence unspecified M54.5 [place] [address] [place] [id number] [address] [place] [address] Oct, Umbilical hernia without obs truction and without gangrene K42.9 [place] [address] [facility] [id number] [address] [place] [phone] Oct, Chronic pain syndrome G89.4 [place] [address] [place] [id number] [address] [place] [phone] Oct, Chronic pain syndrome G89.4 and Anxiety F41.9 [place] [address] [place] [id number] [address] [place] [phone] 12 Oct, 2018 Elevated platelet count R79. 89 [place] [address] [place] [id number] [address] [place] [address] 10 Oct, 2018 CKD (chronic kidney disease) stage 3, GFR 30-59 ml/min N18.3 ; Other chest pain R07.89 ; Acute midline thoracic back pain M54.6 ; Essential hypertension I10 and History of osteoporosis Z87.39 [place] [id number] [place] [address] 29 Sep, 2018 Chronic pain syndrome G89.4 [place] [address] [place] [id number] [place] [address] 16 Sep, 2018 [place] [address] [address] Sep, Anxiety F41.9 and Chronic pa in syndrome G89.4 [place] [address] [place] [id number] [address] [place] [phone] 18 Aug, 2018 Chronic pain syndrome G89.4 and Anxiety F41.9 [place] [address] [place] [id number] [address] [place] [address] Aug, [place] [address] [address] Aug, Cannabis abuse F12.10 and Co ntrolled substance agreement terminated Z91.14 [place] [address] [place] [id number] [address] [place] [address] 28 Jul, 2018 Chronic pain syndrome G89.4 ; Bilateral low back pain, with sciatica presence unspecified M54.5 ; Chronic prescription opiate use Z79.899 ; Essential hypertension I10 ; Hyperlipidemia, unspecified hyperlipidemia E78.5 ; CKD (chronic kidney disease) stage 3, GFR 30-59 ml/min N18.3 and Allergic rhinitis J30.9 [place] [address] [place] [address] [place] [address] Jul, Chronic pain syndrome G89.4 and Anxiety F41.9 [place] [address] [place] [id number] [address] [place] [address] Jul, Screening for breast cancer Z12.31 and Major depressive disorder, recurrent episode, unspecified severity F33.9 [place] [address] [place] [id number] [address] [place] [phone] Jun, Chronic pain syndrome G89.4 and Anxiety F41.9 [place] [address] [place] [id number] [address] [place] [address] May, Chronic pain syndrome G89.4 and Anxiety F41.9 [place] [address] [place] [id number] [address] [place] [address] Apr, Anxiety F41.9 [place] [address] [place] [id number] [place] [address] Apr, Chronic prescription opiate use Z79.899 ; Chronic pain syndrome G89.4 ; Essential hypertension I10 ; Allergic rhinitis J30.9 and CKD (chronic kidney disease) stage 3, GFR 30-59 ml/min N18.3 [place] [address] [place] [id number] [address] [place] [address] Apr, [place] [address] [place] [id number] [address] [place] [address] March, Anxiety F41.9 and Chronic pa in syndrome G89.4 [place] [address] [facility] [id number] [address] [place] [address] March, CKD (chronic kidney disease) stage 3, GFR 30-59 ml/min N18.3 ; B12 deficiency E53.8 and Hyperlipidemia, unspecified hyperlipidemia E78.5 [place] [address] [facility] [id number] [address] [place] [address] March, Anxiety F41.9 and Chronic pa in syndrome G89.4 [place] [address] [address] Feb, Anxiety F41.9 and Chronic pa in syndrome G89.4 [place] [address] [address] Jan, B12 deficiency E53.8 [place] [address] [address] Jan, [place] [address] [address] Jan, Anxiety F41.9 ; Chronic pain syndrome G89.4 and Essential hypertension I10 [place] [address] [address] Jan, CKD (chronic kidney disease) stage 3, [...] Subacromial bursitis of right shoulder joint M75.51 [place] [address] [address] 28 Dec, 2017 Essential hypertension I10 [place] [address] [address] 15 Dec, 2017 Chronic pain syndrome G89.4 [place] [address] [address] Dec, Chronic pain syndrome G89.4 [place] [address] [address] Nov, [place] [address] [address] Nov, Chronic pain syndrome G89.4 and Anxiety F41.9 [place] [address] [facility] [id number] [address] [place] [address] Oct, Chronic pain syndrome G89.4 ; Other constipation K59.09 and Chronic prescription opiate use Z79.899 [facility] [address] [facility] [id number] [address] [place] [address] Oct, Chronic pain syndrome G89.4 and Anxiety F41.9 [place] [address] [facility] [id number] [address] [place] [address] Sep, Essential hypertension I10 [place] [address] [facility] [id number] [address] [place] [address] 16 Sep, 2017 Chronic pain syndrome G89.4 and Anxiety F41.9 [place] [address] [facility] [id number] [address] [place] [address] Aug, Chronic pain syndrome G89.4 and Anxiety F41.9 [place] [address] [place] [id number] [address] [place] [address] Jul, Essential hypertension I10 [place] [address] [facility] [id number] [address] [place] [phone] 22 Jul, 2017 Chronic obstructive pulmonar y disease, unspecified COPD type J44.9 [place] [address] [facility] [id number] [address] [place] [address] Jul, Chronic pain syndrome G89.4 and Anxiety F41.9 [place] [address] [place] [id number] [address] [place] [address] 13 Jul, 2017 Chronic pain syndrome G89.4 ; Essential hypertension I10 ; Fibromyalgia M79.7 ; CKD (chronic kidney disease) stage 3, GFR 30-59 ml/min N18.3 ; Subacromial bursitis, right M75.51 and Goals of care, co unseling/discussion Z71.89 [place] [address] [facility] [id number] [address] [place] [address] Jun, Chronic pain syndrome G89.4 and Anxiety F41.9 [place] [address] [id number] [address] [place] [address] May, Chronic pain syndrome G89.4 and Anxiety F41.9 [facility] [address] [facility] [id number] [address] [place] [address] Apr, Chronic pain syndrome G89.4 and Anxiety F41.9 [facility] [address] [facility] [id number] [address] [place] [address] Apr, Drug induced constipation K5 9.03 ; Chronic pain syndrome G89.4 and CKD (chronic kidney disease) stage 3, GFR 30-59 ml/min N18.3 [facility] [address] [facility] [id number] [address] [place] [address] Apr, Chronic pain syndrome G89.4 and Anxiety F41.9 [place] [address] [facility] [id number] [address] [place] [address] March, Chronic pain syndrome G89.4 and Anxiety F41.9 [facility] [address] [facility] [id number] [address] [place] [address] March, Decreased GFR R94.4 [facility] [address] [facility] [id number] [address] [place] [address] Feb, [facility] [address] [facility] [id number] [address] [place] [address] Feb, Chronic pain syndrome G89.4 and Anxiety F41.9 [facility] [address] [facility] [id number] [address] [place] [address] Jan, Decreased GFR R94.4 [facility] [address] [facility] [id number] [address] [place] [address] Jan, Decreased GFR R94.4 [facility] [address] [facility] [id number] [address] [place] [address] Jan, Allergic rhinitis J30.9 ; Es sential hypertension I10 ; Major depressive disorder, recurrent episode, unspecified severity F33.9 and Primary insomnia F51.01 [facility] [address] [place] [id number] [address] [place] [address] Jan, Acute right-sided thoracic b ack pain M54.6 ; Subacromial bursitis of right shoulder joint M75.51 ; Chronic pain syndrome G89.4 and Anxiety F41.9 [place] [address] [place] [id number] [address] [place] [address] Jan, Decreased GFR R94.4 [place] [address] [place] [id number] [address] [place] [address] Dec, Decreased GFR R94.4 [place] [address] [place] [id number] [place] [address] Dec, Decreased GFR R94.4 [place] [address] [address] Dec, Decreased GFR R94.4 [place] [address] [place] [id number] [place] [address] Dec, Decreased GFR R94.4 [place] [address] [address] Dec, Anxiety F41.9 and Bilateral low back pain, with sciatica presence unspecified M54.5 [place] [address] [address] Dec, Thrombocytosis D47.3 ; Hyper lipidemia, unspecified hyperlipidemia E78.5 ; Need for hepatitis C screening test Z11.59 and B12 deficiency E53.8 [place] [address] [place] [id number] [address] [place] [address] Nov, Need for hepatitis C screeni ng test Z11.59 [place] [address] [place] [id number] [place] [address] Nov, Anxiety F41.9 and Bilateral low back pain, with sciatica presence unspecified M54.5 [place] [address] [place] [id number] [address] [place] [address] Oct, Bilateral low back pain, wit h sciatica presence unspecified M54.5 ; Chronic prescription opiate use Z79.899 ; Anxiety F41.9 ; Essential hypertension I10 ; Hyperlipidemia, unspecified hyperlipidemia E78.5 ; Health care maintenance Z00.00 and Thrombocytosis D47.3 [place] [address] [address] Sep, [facility] [address] [address] Sep, [place] [address] [address] Aug, [place] [address] [address] Jul, B12 deficiency E53.8 [place] [address] [address] Jul, [place] [address] [address] Jul, Essential hypertension I10 ; Chronic pain syndrome G89.4 ; Anxiety F41.9 ; Screening for breast cancer Z12.39 ; Atherosclerosis of [place] coronary artery of [place] heart without angina pectoris I25.10 ; Major depressive disorder, recurrent episode, unspecified severity F33.9 ; Primary insomnia F51.01 and Allergic rhinitis J30.9 [place] [address] [place] [id number] [address] [place] [address] Jun, [facility] [address] [place] [id number] [address] [place] [address] Jun, Leg wound, right, initial en counter S81.801A and Encounter for immunization Z23 [place] [address] [place] [id number] [address] [place] [address] Jun, Open wound of right ear, uns pecified open wound type, initial encounter S01.301A [place] [address] [place] [id number] [address] [place] [address] May, B12 deficiency E53.8 [facility] [id number] [place] [address] May, [facility] [address] [place] [id number] [address] [place] [address] May, [facility] [address] [address] May, Chronic pain syndrome G89.4 ; Chronic prescription opiate use Z79.899 ; Allergic rhinitis J30.9 ; Essential hypertension I10 and Non-healing skin lesion L98.9 [place] [address] [address] Apr, [place] [address] [address] March, [facility] [address] [address] Feb, [facility] [address] [address] Feb, [place] [address] [address] Feb, Chronic pain syndrome G89.4 ; Anxiety F41.9 ; B12 deficiency E53.8 ; Allergic rhinitis J30.9 ; Fibromyalgia M79.7 ; Actinic keratosis L57.0 ; Skin rash R21 ; Open wound of right ear, unspecified open wound type, initial encounter S01.301A ; Subacromial bursitis, right M75.51 ; GERD (gastroesophageal reflux disease) K21.9 and Chronic obstructive pulmonary disease, unspecified COPD type J44.9 [facility] [address] [place] [id number] [address] [place] [address] Jan, [facility] [address] [address] Jan, Essential hypertension I10 [place] [address] [facility] [id number] [address] [place] [address] 11 Jan, 2016 [facility] [address] [facility] [id number] [address] [place] [address] Jan, [facility] [address] [facility] [id number] [address] [place] [address] Jan, [facility] [address] [facility] [id number] [address] [place] [address] Dec, [facility] [address] [facility] [id number] [address] [place] [address] Dec, Essential hypertension I10 [facility] [address] [facility] [id number] [place] [address] Dec, [facility] [address] [facility] [id number] [place] [address] Dec, B12 deficiency E53.8 and Ess ential hypertension I10 [facility] [address] [facility] [id number] [address] [place] [address] Dec, [facility] [address] [facility] [id number] [address] Nov, Right shoulder pain M25.511 [facility] [address] [address] Nov, Right shoulder pain M25.511 [facility] [address] [facility] [id number] [address] [place] [address] Nov, Essential hypertension I10 a nd B12 deficiency E53.8 [facility] [address] [facility] [id number] [address] [place] [address] 14 Nov, 2015 Major depressive disorder, r ecurrent episode, unspecified severity F33.9 ; Anxiety F41.9 ; Chronic pain syndrome G89.4 ; Essential hypertension I10 ; Hyperlipidemia, unspecified hyperlipidemia E78.5 ; Chronic prescription opiate use Z79.899 ; Allergic rhinitis J30.9 ; B12 deficiency E53.8 and Right shoulder pain M25.511 [facility] [address] [id number] [address] [place] [address] Oct, [facility] [address] [id number] [address] [place] [address] Oct, [facility] [address] [facility] [id number] [address] [place] [address] Sep, [facility] [address] [id number] [address] [place] [address] Sep, [facility] [address] [facility] [id number] [address] [place] [address] Aug, [facility] [address] [facility] [id number] [address] [place] [address] Aug, [facility] [address] [place] [id number] [address] [place] [address] Aug, [facility] [address] [place] [id number] [address] [place] [address] Aug, Other constipation K59.09 ; Hyperlipidemia, unspecified hyperlipidemia E78.5 ; Essential hypertension I10 ; Primary insomnia F51.01 ; Anxiety F41.9 ; Chronic pain syndrome G89.4 ; Right shoulder pain M25.511 and Acute cystitis without hematuria N30.00 [facility] [address] [place] [id number] [address] [place] [address] 16 Jul, 2015 [facility] [address] [facility] [id number] [address] [place] [address] Jul, [facility] [address] [facility] [id number] [address] [place] [address] Jun, [facility] [address] [place] [id number] [address] [place] [address] Jun, [facility] [address] [facility] [id number] [address] [place] [address] Jun, [facility] [address] [facility] [id number] [address] [place] [address] May, [facility] [address] [id number] [address] [place] [address] May, Other chronic pain 338.29 ; Hypertension 401.9 and Constipation due to opioid therapy 564.09 [facility] [address] [id number] [address] [place] [address] 17 May, 2015 [facility] [address] [id number] [address] [place] [address] May, [facility] [address] [id number] [address] [place] [address] Apr, [facility] [address] [id number] [address] [place] [address] Apr, Unspecified essential hypert ension 401.9 [facility] [address] [id number] [address] [place] [address] Apr, [facility] [address] [id number] [address] [place] [phone] Apr, [facility] [address] [id number] [address] [place] [address] Apr, [facility] [address] [id number] [address] [place] [address] Apr, [facility] [address] [id number] [address] [place] [address] Apr, [facility] [address] [id number] [address] [place] [address] Apr, [facility] [address] [id number] [address] [place] [address] March, Unspecified essential hypert ension 401.9 [facility] [address] [id number] [address] [place] [address] March, [facility] [address] [id number] [address] [place] [phone] March, [facility] [address] [id number] [address] [place] [address], [place] [address] 14 Feb, 2015 [facility] [address] [id number] [address] [place] [address], [place] [address] Feb, [facility] [address] [id number] [address] [place] [address], [place] [address] Jan, [facility] [address] [id number] [address] [place] [address], [place] [address] Jan, [facility] [address] [id number] [address] [place] [address], [place] [address] Jan, [facility] [address] [id number] [address] [place] [address], [place] [address] Jan, [facility] [address] [id number] [address] [place] [address], [place] [address] Jan, [facility] [address] [id number] [address] [place] [address], [place] [address] Jan, [facility] [address] [id number] [address] [place] [address], [place] [address] Jan, [facility] [address] [id number] [address] [place] [address], [place] [address] 16 Dec, 2014 [facility] [address] [id number] [address] [place] [address], [place] [address] Dec, [facility] [address] [id number] [address] [place] [address], [place] [address] Dec, [facility] [address] [id number] [address] [place] [address], [place] [address] Nov, [facility] [address] [id number] [address] [place] [address], [place] [address] Nov, [facility] [address] [id number] [address] [place] [address], [place] [address] Oct, [facility] [address] [id number] [address] [place] [id number] 16 Oct, 2014 [facility] [address] [id number] [address] [place] [address], [place] [address] Oct, [facility] [address] [id number] [address] [place] [address], [place] [address] Oct, [facility] [address] [id number] [address] [place] [address], [place] [address] Oct, [facility] [address] [id number] [address] [place] [address], [place] [address] Oct, [facility] [address] [id number] [address] [place] [address], [place] [address] Oct, [facility] [address] [id number] [address] [place] [address], [place] [address] Oct, [facility] [address] [id number] [address] [place] [address], [place] [address] Sep, [facility] [address] [id number] [address] [place] [address], [place] [address] Sep, [facility] [address] [id number] [address] [place] [address], [place] [address] Sep, [facility] [address] [id number] [address] [place] [address], [place] [address] Sep, [facility] [address] [id number] [address] [place] [address], [place] [address] Sep, [facility] [address] [id number] [address] [place] [address] Sep, [facility] [address] [id number] [address] [place] [address], [place] [address] Aug, [facility] [address] [id number] [address] [place] [address], [place] [address] Aug, [facility] [address] [id number] [address] [place] [address], [place] [address] Aug, [facility] [address] [id number] [address] [place] [address], [place] [address] Aug, [facility] [address] [id number] [address] [place] [address], [place] [address] Aug, [facility] [address] [id number] [address] [place] [address], [place] [address] Aug, [facility] [address] [id number] [address] [place] [address], [place] [address] Aug, [facility] [address] [id number] [address] [place] [address], [place] [address] Aug, [facility] [address] [id number] [address] [place] [address], [place] [address] Aug, [facility] [address] [id number] [address] [place] [address], [place] [address] Aug, [facility] [address] [id number] [address] [place] [address], [place] [address] Jul, [facility] [address] [id number] [address] [place] [address], [place] [address] Jul, [facility] [address] [id number] [address] [place] [address], [place] [address] Jul, [facility] [address] [id number] [address] [place] [address], [place] [address] Jul, [facility] [address] [id number] [address] [place] [address], [place] [address] Jul, [facility] [address] [id number] [address] [place] [address], [place] [address] Jul, [facility] [address] [id number] [address] [place] [address], [place] [address] Jun, [facility] [address] [id number] [address] [place] [address], [place] [address] Jun, [facility] [address] [id number] [address] [place] [address], [place] [address] Jun, [facility] [address] [id number] [facility] [place] [address] Jun, [facility] [address] [id number] [facility] [place] [address] Jun, [facility] [address] [id number] [facility] [place] [address] Jun, [facility] [address] [id number] [address] [place] [address], [place] [address] May, [facility] [address] [id number] [address] [place] [address], [place] [address] May, [facility] [address] [id number] [address] [place] [address], [place] [address] May, [facility] [address] [id number] [address] [place] [address], [place] [address] May, [facility] [address] [id number] [address] [place] [address], [place] [address] May, [facility] [address] [id number] [address] [place] [address], [place] [address] Apr, [facility] [address] [id number] [address] [place] [address], [place] [address] Apr, [facility] [address] [id number] [address] [place] [address], [place] [address] Apr, [facility] [address] [id number] [address] [place] [address], [place] [address] Apr, [facility] [address] [id number] [address] [place] [address], [place] [address] March, [facility] [address] [id number] [address] [place] [address], [place] [address] March, [facility] [address] [id number] [address] [place] [address], [place] [address] March, [facility] [address] [id number] [facility] [place] [address] March, [facility] [address] [id number] [address] [place] [address], [place] [address] March, [facility] [address] [id number] [address] [place] [address], [place] [address] March, [facility] [address] [id number] [address] [place] [address], [place] [address] Feb, [facility] [address] [id number] [address] [place] [address], [place] [address] Feb, [facility] [address] [id number] [address] [place] [address], [place] [address] Feb, [facility] [address] [id number] [address] [place] [address], [place] [address] Feb, [facility] [address] [id number] [address] [place] [address], [place] [address] Feb, [facility] [address] [id number] [address] [place] [address], [place] [address] Feb, [facility] [address] [id number] [address] [place] [address], [place] [address] Feb, [facility] [address] [id number] [address] [place] [address], [place] [address] Feb, [facility] [address] [id number] [address] [place] [address], [place] [address] Jan, [facility] [address] [id number] [address] [place] [address], [place] [address] Jan, [facility] [address] [id number] [address] [place] [address], [place] [address] Jan, [facility] [address] [id number] [address] [place] [address], [place] [address] Jan, [facility] [address] [id number] [address] [place] [address], [place] [address] Jan, [facility] [address] [id number] [address] [place] [address], [place] [address] Jan, [facility] [address] [id number] [address] [place] [address], [place] [address] Dec, [facility] [address] [id number] [address] [place] [address], [place] [address] Dec, [facility] [address] [id number] [address] [place] [address], [place] [address] Nov, [facility] [address] [id number] [address] [place] [address], [place] [address] Nov, [facility] [address] [id number] [address] [place] [address], [place] [address] Nov, [facility] [address] [id number] [address] [place] [address], [place] [address] Nov, [facility] [address] [id number] [address] [place] [address], [place] [address] Nov, [facility] [address] [id number] [address] [place] [address], [place] [address] Nov, [facility] [address] [id number] [address] [place] [address], [place] [address] Nov, [facility] [address] [id number] [address] [place] [address], [place] [address] Nov, [facility] [address] [id number] [address] [place] [address], [place] [address] Nov, [facility] [address] [id number] [address] [place] [address], [place] [address] Nov, [facility] [address] [id number] [address] [place] [address], [place] [address] Nov, [facility] [address] [id number] [address] [place] [address], [place] [address] Nov, [facility] [address] [id number] [address] [place] [address] Nov, [facility] [address] [id number] [address] [place] [address] Nov, [facility] [address] [id number] [address] [place] [address] Nov, [facility] [address] [id number] [address] [place] [address] Oct, [facility] [address] [id number] [address] [place] [address] Oct, [facility] [address] [id number] [address] [place] [address] Oct, [facility] [address] [id number] [address] [place] [id number] Oct, [facility] [address] [id number] [address] [place] [address] Oct, [facility] [address] [id number] [address] [place] [address] Oct, [facility] [address] [id number] [address] [place] [address] Oct, [facility] [address] [id number] [address] [place] [id number] Oct, [facility] [address] [id number] [address] [place] [address] Oct, [facility] [address] [id number] [address] [place] [phone] Aug, [facility] [address] [id number] [address] [place] [phone] Aug, IMMUNIZATIONS No Known Immunizations SOCIAL HISTORY [...] by Dr. Troy Michelle pain specialist in [place], [place] Medical History Chronic low back pain [...]
--- OUTSIDE RECORDS SUMMARY | 2020-06-19 02:10 | XMS REPORT ---
Author Author Mahsa Hsieh Organization [facility] Address [address] [place] [address] Care Team Providers Care Landscaper Name Role Phone NEEMA Hsieh Unavailable PROBLEMS Type Condition ICD9-CM Code [id number] Code Onset Dates Condition S tatus SNOMED Code Problem Other constipation K59.09 Active 1 [id number] Problem Primary insomnia F51.01 Active 193 376858 Problem Chronic pain syndrome G89.4 Active 515636309 Problem Essential hypertension I10 Active 75998367 Problem Anxiety F41.9 Active 65858825 Problem Major depressive disorder, recurrent episode, un specified severity F33.9 Active 62563551 Problem Atherosclerosis of pauma co ronary artery of pauma heart without angina pectoris I25.10 Active [id number] Problem Bilateral low back pain, with sciatica presence unspecifie d M54.5 Active 951374351 Problem Allergic rhinitis J30.9 Active 61 753386 Problem Fibromyalgia M79.7 Active 3475298 7 Problem Degenerative disc disease, thoracic M51.34 Active 60683061 Problem B12 deficiency E53.8 Active 59913 4004 Problem Degenerative disc disease, cervical M50.30 Active 15244725 Problem Hyperlipidemia, unspecified hyperlipidemia E78.5 Active 80212883 Problem GERD (gastroesophageal reflux disease) K21.9 Active 257768358 Problem Chronic obstructive pulmonary disease, unspecified COPD ty pe J44.9 Active 25356527 Problem CKD (chronic kidney disease) stage 3, GFR 30-59 ml/min N18.3 Active 298723869 Problem Cannabis abuse F12.10 Active 99106 009 ALLERGIES No Information ENCOUNTERS Encounter Location Date Diagnosis [facility] [address] [facility] [place] [id number] [address] [place] [phone] Apr, B12 deficiency E53.8 [facility] [address] [facility] [place] [id number] [address] [place] [phone] Jan, Periumbilical hernia K42.9 ; CKD (chronic kidney disease) stage 3, GFR 30-59 ml/min N18.3 ; Essential hypertension I10 ; GERD (gastroesophageal reflux disease) K21.9 ; Hyperlipidemia, unspecified hyperlipidemia E78.5 and Major depressive disorder, recurrent episode, unspecified severity F33.9 [place] [address] [facility] [place] [id number] [address] [place] [address] Dec, Anxiety F41.9 [place] [address] [id number] [address] [place] [phone] Nov, Elevated platelet count R79. 89 [place] [address] [id number] [address] [place] [id number] Nov, [place] [address] [place] [id number] [address] [place] [phone] Nov, Elevated platelet count R79. 89 [place] [address] [place] [id number] [address] [place] [phone] Nov, Anxiety F41.9 [place] [address] [facility] [place] [id number] [address] [place] [phone] Nov, Bilateral low back pain, wit h sciatica presence unspecified M54.5 ; Cervicalgia M54.2 ; Degenerative disc disease, cervical M50.30 and Degenerative disc disease, thoracic M51.34 [place] [address] [place] [id number] [address] [place] [address] Nov, Chronic pain syndrome G89.4 and Bilateral low back pain, with sciatica presence unspecified M54.5 [place] [address] [place] [id number] [address] [place] [phone] Oct, Umbilical hernia without obs truction and without gangrene K42.9 [place] [address] [facility] [place] [id number] [address] [place] [phone] Oct, Chronic pain syndrome G89.4 [place] [address] [place] [id number] [address] [place] [address] Oct, Chronic pain syndrome G89.4 and Anxiety F41.9 [place] [address] [address] 12 Oct, 2018 Elevated platelet count R79. 89 [place] [address] [place] [id number] [address] [place] [phone] Oct, CKD (chronic kidney disease) stage 3, GFR 30-59 ml/min N18.3 ; Other chest pain R07.89 ; Acute midline thoracic back pain M54.6 ; Essential hypertension I10 and History of osteoporosis Z87.39 [place] [address] [place] [id number] [address] [place] [id number] 29 Sep, 2018 Chronic pain syndrome G89.4 [place] [address] [place] [id number] [place] [phone] 16 Sep, 2018 [place] [address] [address] Sep, Anxiety F41.9 and Chronic pa in syndrome G89.4 [place] [address] [place] [id number] [address] [place] [phone] 18 Aug, 2018 Chronic pain syndrome G89.4 and Anxiety F41.9 [place] [address] [place] [id number] [place] [address] Aug, [place] [address] [address] Aug, Cannabis abuse F12.10 and Co ntrolled substance agreement terminated Z91.14 [place] [address] [place] [id number] [address] [place] [address] Jul, Chronic pain syndrome G89.4 ; Bilateral low back pain, with sciatica presence unspecified M54.5 ; Chronic prescription opiate use Z79.899 ; Essential hypertension I10 ; Hyperlipidemia, unspecified hyperlipidemia E78.5 ; CKD (chronic kidney disease) stage 3, GFR 30-59 ml/min N18.3 and Allergic rhinitis J30.9 [place] [address] [place] [id number] [address] [place] [address] Jul, Chronic pain syndrome G89.4 and Anxiety F41.9 [place] [address] [place] [id number] [address] [place] [address] Jul, Screening for breast cancer Z12.31 and Major depressive disorder, recurrent episode, unspecified severity F33.9 [place] [address] [place] [id number] [address] [place] [address] Jun, Chronic pain syndrome G89.4 and Anxiety F41.9 [place] [address] [place] [id number] [address] [place] [phone] May, Chronic pain syndrome G89.4 and Anxiety F41.9 [place] [address] [place] [id number] [address] [place] [address] Apr, Anxiety F41.9 [place] [address] [address] Apr, Chronic prescription opiate use Z79.899 ; Chronic pain syndrome G89.4 ; Essential hypertension I10 ; Allergic rhinitis J30.9 and CKD (chronic kidney disease) stage 3, GFR 30-59 ml/min N18.3 [place] [address] [place] [id number] [address] [place] [address] Apr, [place] [address] [address] March, Anxiety F41.9 and Chronic pa in syndrome G89.4 [place] [address] [facility] [place] [facility] [id number] [address] [place] [address] March, CKD (chronic kidney disease) stage 3, GFR 30-59 ml/min N18.3 ; B12 deficiency E53.8 and Hyperlipidemia, unspecified hyperlipidemia E78.5 [place] [address] [place] [id number] [address] [place] [phone] March, Anxiety F41.9 and Chronic pa in syndrome G89.4 [place] [address] [address] Feb, Anxiety F41.9 and Chronic pa in syndrome G89.4 [place] [address] [address] Jan, B12 deficiency E53.8 [place] [address] [address] Jan, [place] [address] [address] Jan, Anxiety F41.9 ; Chronic pain syndrome G89.4 and Essential hypertension I10 [place] [address] [address] Jan, CKD (chronic kidney disease) stage 3, [...] Subacromial bursitis of right shoulder joint M75.51 [place] [address] [address] Dec, Essential hypertension I10 [place] [address] [address] 15 Dec, 2017 Chronic pain syndrome G89.4 [place] [address] [address] Dec, Chronic pain syndrome G89.4 [place] [address] [address] Nov, [place] [address] [address] Nov, Chronic pain syndrome G89.4 and Anxiety F41.9 [facility] [address] [place] [id number] [address] [place] [address] Oct, Chronic pain syndrome G89.4 ; Other constipation K59.09 and Chronic prescription opiate use Z79.899 [facility] [address] [facility] [place] [id number] [address] [place] [address] Oct, Chronic pain syndrome G89.4 and Anxiety F41.9 [place] [address] [place] [id number] [address] [place] [phone] Sep, Essential hypertension I10 [place] [address] [place] [id number] [place] [address] Sep, Chronic pain syndrome G89.4 and Anxiety F41.9 [place] [address] [place] [id number] [address] [place] [phone] Aug, Chronic pain syndrome G89.4 and Anxiety F41.9 [place] [address] [place] [id number] [address] [place] [address] Jul, Essential hypertension I10 [place] [address] [place] [id number] [address] [place] [address] 22 Jul, 2017 Chronic obstructive pulmonar y disease, unspecified COPD type J44.9 [place] [address] [place] [id number] [address] [place] [phone] Jul, Chronic pain syndrome G89.4 and Anxiety F41.9 [place] [address] [place] [id number] [address] [place] [address] 13 Jul, 2017 Chronic pain syndrome G89.4 ; Essential hypertension I10 ; Fibromyalgia M79.7 ; CKD (chronic kidney disease) stage 3, GFR 30-59 ml/min N18.3 ; Subacromial bursitis, right M75.51 and Goals of care, co unseling/discussion Z71.89 [place] [address] [place] [id number] [address] [place] [address] Jun, Chronic pain syndrome G89.4 and Anxiety F41.9 [facility] [address] [id number] [address] [place] [address] May, Chronic pain syndrome G89.4 and Anxiety F41.9 [facility] [address] [id number] [address] [place] [phone] Apr, Chronic pain syndrome G89.4 and Anxiety F41.9 [facility] [address] [facility] [place] [facility] [id number] [address] [place] [address] Apr, Drug induced constipation K5 9.03 ; Chronic pain syndrome G89.4 and CKD (chronic kidney disease) stage 3, GFR 30-59 ml/min N18.3 [facility] [address] [id number] [address] [place] [phone] 02 Apr, 2017 Chronic pain syndrome G89.4 and Anxiety F41.9 [facility] [address] [facility] [place] [id number] [address] [place] [address] March, Chronic pain syndrome G89.4 and Anxiety F41.9 [facility] [address] [id number] [address] [place] [address] March, Decreased GFR R94.4 [facility] [address] [facility] [place] [id number] [address] [place] [phone] Feb, [facility] [address] [facility] [place] [id number] [address] [place] [phone] Feb, Chronic pain syndrome G89.4 and Anxiety F41.9 [facility] [address] [facility] [place] [id number] [address] [place] [address] Jan, Decreased GFR R94.4 [facility] [address] [facility] [place] [id number] [address] [place] [address] Jan, Decreased GFR R94.4 [facility] [address] [facility] [place] [id number] [address] [place] [address] Jan, Allergic rhinitis J30.9 ; Es sential hypertension I10 ; Major depressive disorder, recurrent episode, unspecified severity F33.9 and Primary insomnia F51.01 [place] [address] [address] Jan, Acute right-sided thoracic b ack pain M54.6 ; Subacromial bursitis of right shoulder joint M75.51 ; Chronic pain syndrome G89.4 and Anxiety F41.9 [place] [address] [address] Jan, Decreased GFR R94.4 [place] [address] [address] Dec, Decreased GFR R94.4 [place] [address] [address] Dec, Decreased GFR R94.4 [place] [address] [address] Dec, Decreased GFR R94.4 [place] [address] [address] Dec, Decreased GFR R94.4 [place] [address] [address] Dec, Anxiety F41.9 and Bilateral low back pain, with sciatica presence unspecified M54.5 [place] [address] [address] Dec, Thrombocytosis D47.3 ; Hyper lipidemia, unspecified hyperlipidemia E78.5 ; Need for hepatitis C screening test Z11.59 and B12 deficiency E53.8 [place] [address] [address] Nov, Need for hepatitis C screeni ng test Z11.59 [place] [address] [address] Nov, Anxiety F41.9 and Bilateral low back pain, with sciatica presence unspecified M54.5 [place] [address] [address] Oct, Bilateral low back pain, wit h sciatica presence unspecified M54.5 ; Chronic prescription opiate use Z79.899 ; Anxiety F41.9 ; Essential hypertension I10 ; Hyperlipidemia, unspecified hyperlipidemia E78.5 ; Health care maintenance Z00.00 and Thrombocytosis D47.3 [place] [address] [address] Sep, [facility] [address] [address] Sep, [place] [address] [address] Aug, [place] [address] [address] Jul, B12 deficiency E53.[address] [address] Jul, [place] [address] [address] Jul, Essential hypertension I10 ; Chronic pain syndrome G89.4 ; Anxiety F41.9 ; Screening for breast cancer Z12.39 ; Atherosclerosis of pauma coronary artery of pauma heart without angina pectoris I25.10 ; Major depressive disorder, recurrent episode, unspecified severity F33.9 ; Primary insomnia F51.01 and Allergic rhinitis J30.9 [place] [id number] [place] [address] Jun, [facility] [address] [address] Jun, Leg wound, right, initial en counter S81.801A and Encounter for immunization Z23 [place] [id number] [address] [place] [address] Jun, Open wound of right ear, uns pecified open wound type, initial encounter S01.301A [place] [address] [address] May, B12 deficiency E53.8 [facility] [address] [address] May, [facility] [address] [address] May, [facility] [address] [address] May, Chronic pain syndrome G89.4 ; Chronic prescription opiate use Z79.899 ; Allergic rhinitis J30.9 ; Essential hypertension I10 and Non-healing skin lesion L98.9 [place] [address] [address] Apr, [place] [address] [address] March, [facility] [address] [address] Feb, [facility] [address] [address] Feb, [place] [address] [address] Feb, Chronic pain syndrome G89.4 ; Anxiety F41.9 ; B12 deficiency E53.8 ; Allergic rhinitis J30.9 ; Fibromyalgia M79.7 ; Actinic keratosis L57.0 ; Skin rash R21 ; Open wound of right ear, unspecified open wound type, initial encounter S01.301A ; Subacromial bursitis, right M75.51 ; GERD (gastroesophageal reflux disease) K21.9 and Chronic obstructive pulmonary disease, unspecified COPD type J44.9 [facility] [address] [address] Jan, [facility] [address] [address] Jan, Essential hypertension I10 [facility] [address] [facility] [place] [id number] [address] [place] [address] Jan, [facility] [address] [facility] [place] [id number] [address] [place] [address] Jan, [facility] [address] [facility] [place] [id number] [address] [place] [address] Jan, [facility] [address] [facility] [place] [id number] [address] [place] [address] Dec, [facility] [address] [facility] [place] [id number] [address] [place] [address] Dec, Essential hypertension I10 [facility] [address] [facility] [place] [id number] [address] [place] [address] Dec, [facility] [address] [facility] [place] [id number] [address] [place] [address] Dec, B12 deficiency E53.8 and Ess ential hypertension I10 [facility] [address] [facility] [place] [id number] [address] [place] [phone] Dec, [facility] [address] [facility] [place] [id number] [address] [place] [address] Nov, Right shoulder pain M25.511 [facility] [id number] [place] [address] Nov, Right shoulder pain M25.511 [facility] [address] [facility] [place] [id number] [address] [place] [address] Nov, Essential hypertension I10 a nd B12 deficiency E53.8 [facility] [address] [facility] [place] [id number] [address] [place] [address] 14 Nov, 2015 Major depressive disorder, r ecurrent episode, unspecified severity F33.9 ; Anxiety F41.9 ; Chronic pain syndrome G89.4 ; Essential hypertension I10 ; Hyperlipidemia, unspecified hyperlipidemia E78.5 ; Chronic prescription opiate use Z79.899 ; Allergic rhinitis J30.9 ; B12 deficiency E53.8 and Right shoulder pain M25.511 [facility] [address] [id number] [address] [place] [address] Oct, [facility] [address] [id number] [address] [place] [address] Oct, [facility] [address] [facility] [place] [id number] [address] [place] [address] Sep, [facility] [address] [id number] [address] [place] [phone] Sep, [facility] [address] [facility] [place] [id number] [address] [place] [address] Aug, [facility] [address] [id number] [address] [place] [address] Aug, [facility] [address] [place] [id number] [address] [place] [address] Aug, [facility] [address] [facility] [place] [id number] [address] [place] [address] Aug, Other constipation K59.09 ; Hyperlipidemia, unspecified hyperlipidemia E78.5 ; Essential hypertension I10 ; Primary insomnia F51.01 ; Anxiety F41.9 ; Chronic pain syndrome G89.4 ; Right shoulder pain M25.511 and Acute cystitis without hematuria N30.00 [facility] [address] [facility] [place] [id number] [address] [place] [phone] Jul, [facility] [address] [id number] [address] [place] [phone] Jul, [facility] [address] [facility] [place] [id number] [address] [place] [phone] Jun, [facility] [address] [facility] [place] [id number] [address] [place] [phone] Jun, [facility] [address] [facility] [place] [id number] [address] [place] [phone] Jun, [facility] [address] [facility] [place] [id number] [address] [place] [address] May, [facility] [address] [id number] [address] [place] [address] May, Other chronic pain 338.29 ; Hypertension 401.9 and Constipation due to opioid therapy 564.09 [facility] [address] [id number] [address] [place] [phone] 17 May, 2015 [facility] [address] [id number] [address] [place] [address] May, [facility] [address] [id number] [address] [place] [address] Apr, [facility] [address] [id number] [address] [place] [phone] Apr, Unspecified essential hypert ension 401.9 [facility] [address] [id number] [address] [place] [phone] Apr, [facility] [address] [id number] [address] [place] [phone] Apr, [facility] [address] [id number] [address] [place] [phone] Apr, [facility] [address] [id number] [address] [place] [phone] Apr, [facility] [address] [id number] [address] [place] [phone] Apr, [facility] [address] [id number] [address] [place] [phone] Apr, [facility] [address] [id number] [address] [place] [phone] March, Unspecified essential hypert ension 401.9 [facility] [address] [id number] [address] [place] [phone] March, [facility] [address] [facility] [place] [id number] [address] [place] [phone] March, [facility] [address] [id number] [address] [place] [address], [place] [address] 14 Feb, 2015 [facility] [address] [id number] [address] [place] [address], [place] [address] Feb, [facility] [address] [id number] [address] [place] [address], [place] [address] Jan, [facility] [address] [id number] [address] [place] [address], [place] [address] Jan, [facility] [address] [id number] [address] [place] [address], [place] [address] Jan, [facility] [address] [id number] [address] [place] [address], [place] [address] Jan, [facility] [address] [id number] [address] [place] [address], [place] [address] Jan, [facility] [address] [id number] [address] [place] [address], [place] [address] Jan, [facility] [address] [id number] [address] [place] [address], [place] [address] Jan, [facility] [address] [id number] [address] [place] [address], [place] [id number] 16 Dec, 2014 [facility] [address] [id number] [address] [place] [address], [place] [id number] Dec, [facility] [address] [id number] [address] [place] [address], [place] [id number] Dec, [facility] [address] [id number] [address] [place] [address], [place] [id number] Nov, [facility] [address] [id number] [address] [place] [address], [place] [id number] Nov, [facility] [address] [id number] [address] [place] [address], [place] [id number] Oct, [facility] [address] [id number] [address] [place] [address], [place] [id number] 16 Oct, 2014 [facility] [address] [id number] [address] [place] [address], [place] [id number] Oct, [facility] [address] [id number] [address] [place] [address], [place] [id number] Oct, [facility] [address] [id number] [address] [place] [address], [place] [id number] Oct, [facility] [address] [id number] [address] [place] [address], [place] [id number] Oct, [facility] [address] [id number] [address] [place] [address], [place] [address] Oct, [facility] [address] [id number] [address] [place] [address], [place] [address] Oct, [facility] [address] [id number] [address] [place] [address], [place] [address] Sep, [facility] [address] [id number] [address] [place] [address], [place] [address] Sep, [facility] [address] [id number] [address] [place] [address], [place] [address] Sep, [facility] [address] [id number] [address] [place] [address], [place] [address] Sep, [facility] [address] [id number] [address] [place] [address], [place] [address] Sep, [facility] [address] [id number] [address] [place] [address], [place] [address] Sep, [facility] [address] [id number] [address] [place] [address], [place] [address] Aug, [facility] [address] [id number] [address] [place] [address], [place] [address] Aug, [facility] [address] [id number] [address] [place] [address], [place] [address] Aug, [facility] [address] [id number] [address] [place] [address], [place] [address] Aug, [facility] [address] [id number] [address] [place] [address], [place] [address] Aug, [facility] [address] [id number] [address] [place] [address], [place] [address] Aug, [facility] [address] [id number] [address] [place] [address], [place] [address] Aug, [facility] [address] [id number] [address] [place] [address], [place] [address] Aug, [facility] [address] [id number] [address] [place] [address], [place] [address] Aug, [facility] [address] [id number] [address] [place] [address], [place] [address] Aug, [facility] [address] [id number] [address] [place] [address], [place] [address] Jul, [facility] [address] [id number] [address] [place] [address], [place] [address] Jul, [facility] [address] [id number] [address] [place] [address], [place] [address] Jul, [facility] [address] [id number] [address] [place] [address], [place] [address] Jul, [facility] [address] [id number] [address] [place] [address], [place] [address] Jul, [facility] [address] [id number] [address] [place] [address], [place] [address] Jul, [facility] [address] [id number] [address] [place] [address], [place] [address] Jun, [facility] [address] [id number] [address] [place] [address], [place] [address] Jun, [facility] [address] [id number] [address] [place] [address], [place] [address] Jun, [facility] [address] [id number] [facility] [place] [address] Jun, [facility] [address] [id number] [address] [place] [address], [place] [address] Jun, [facility] [address] [id number] [address] [place] [address], [place] [address] Jun, [facility] [address] [id number] [address] [place] [address], [place] [address] May, [facility] [address] [id number] [address] [place] [address], [place] [address] May, [facility] [address] [id number] [address] [place] [address], [place] [address] May, [facility] [address] [id number] [address] [place] [address], [place] [address] May, [facility] [address] [id number] [address] [place] [address], [place] [address] May, [facility] [address] [id number] [address] [place] [address], [place] [address] Apr, [facility] [address] [id number] [address] [place] [address], [place] [address] Apr, [facility] [address] [id number] [address] [place] [address], [place] [address] Apr, [facility] [address] [id number] [address] [place] [address], [place] [address] Apr, [facility] [address] [id number] [address] [place] [address], [place] [address] March, [facility] [address] [id number] [address] [place] [address], [place] [address] March, [facility] [address] [id number] [address] [place] [address], [place] [address] March, [facility] [address] [id number] [facility] [place] [address] March, [facility] [address] [id number] [address] [place] [address], [place] [address] March, [facility] [address] [id number] [address] [place] [address], [place] [address] March, [facility] [address] [id number] [address] [place] [address], [place] [address] Feb, [facility] [address] [id number] [address] [place] [address], [place] [address] Feb, [facility] [address] [id number] [address] [place] [address], [place] [address] Feb, [facility] [address] [id number] [address] [place] [address], [place] [address] Feb, [facility] [address] [id number] [address] [place] [address], [place] [address] Feb, [facility] [address] [id number] [address] [place] [address], [place] [address] Feb, [facility] [address] [id number] [address] [place] [address], [place] [address] Feb, [facility] [address] [id number] [address] [place] [address], [place] [address] Feb, [facility] [address] [id number] [address] [place] [address], [place] [address] Jan, [facility] [address] [id number] [address] [place] [address], [place] [address] Jan, [facility] [address] [id number] [address] [place] [address], [place] [address] Jan, [facility] [address] [id number] [address] [place] [address], [place] [address] Jan, [facility] [address] [id number] [address] [place] [address], [place] [address] Jan, [facility] [address] [id number] [address] [place] [address], [place] [address] Jan, [facility] [address] [id number] [address] [place] [address], [place] [address] Dec, [facility] [address] [id number] [address] [place] [address], [place] [address] Dec, [facility] [address] [id number] [address] [place] [address], [place] [address] Nov, [facility] [address] [id number] [address] [place] [address], [place] [address] Nov, [facility] [address] [id number] [address] [place] [address], [place] [address] Nov, [facility] [address] [id number] [address] [place] [address], [place] [address] Nov, [facility] [address] [id number] [address] [place] [address], [place] [address] Nov, [facility] [address] [id number] [address] [place] [address], [place] [address] Nov, [facility] [address] [id number] [address] [place] [address], [place] [address] Nov, [facility] [address] [id number] [address] [place] [address], [place] [address] Nov, [facility] [address] [id number] [address] [place] [address], [place] [address] Nov, [facility] [address] [id number] [address] [place] [address], [place] [address] Nov, [facility] [address] [id number] [address] [place] [address], [place] [address] Nov, [facility] [address] [id number] [address] [place] [address], [place] [address] Nov, [facility] [address] [id number] [address] [place] [id number] Nov, [facility] [address] [id number] [address] [place] [id number] Nov, [facility] [address] [id number] [address] [place] [id number] Nov, [facility] [address] [id number] [address] [place] [id number] Oct, [facility] [address] [id number] [address] [place] [id number] Oct, [facility] [address] [id number] [address] [place] [id number] Oct, [facility] [address] [id number] [address] [place] [id number] Oct, [facility] [address] [id number] [address] [place] [id number] Oct, [facility] [address] [id number] [address] [place] [id number] Oct, [facility] [address] [id number] [address] [place] [id number] Oct, [facility] [address] [id number] [address] [place] [id number] Oct, [facility] [address] [id number] [address] [place] [id number] Oct, [facility] [address] [id number] [address] [place] [id number] Aug, [facility] [address] [id number] [address] [place] [id number] Aug, IMMUNIZATIONS No Known Immunizations SOCIAL HISTORY [...] by Dr. Troy Michelle pain specialist in [place], [place] Medical History Chronic low back pain [...]
--- OUTSIDE RECORDS SUMMARY | 2020-06-19 02:10 | XMS REPORT ---
Author Author Mahsa Hsieh Organization [facility] Address [address] [place] [address] Care Team Providers Care Email Marketer Name Role Phone NEEMA Hsieh Unavailable PROBLEMS Type Condition ICD9-CM Code JHQ50-DQ Code Onset Dates Condition S tatus SNOMED Code Problem Other constipation K59.09 Active 1 [id number] Problem Primary insomnia F51.01 Active 193 534696 Problem Chronic pain syndrome G89.4 Active 320502736 Problem Essential hypertension I10 Active 78350802 Problem Anxiety F41.9 Active 34594441 Problem Major depressive disorder, recurrent episode, un specified severity F33.9 Active 35457470 Problem Atherosclerosis of [place] co ronary artery of [place] heart without angina pectoris I25.10 Active [id number] Problem Bilateral low back pain, with sciatica presence unspecifie d M54.5 Active 649428165 Problem Allergic rhinitis J30.9 Active 61 693121 Problem Fibromyalgia M79.7 Active 9809108 7 Problem Degenerative disc disease, thoracic M51.34 Active 82789950 Problem B12 deficiency E53.8 Active 24178 4004 Problem Degenerative disc disease, cervical M50.30 Active 66120718 Problem Hyperlipidemia, unspecified hyperlipidemia E78.5 Active 60782878 Problem GERD (gastroesophageal reflux disease) K21.9 Active 848204720 Problem Chronic obstructive pulmonary disease, unspecified COPD ty pe J44.9 Active 61639824 Problem CKD (chronic kidney disease) stage 3, GFR 30-59 ml/min N18.3 Active 794637583 Problem Cannabis abuse F12.10 Active 63093 009 ALLERGIES No Information ENCOUNTERS Encounter Location Date Diagnosis [facility] [address] [facility] [id number] [address] [place] [phone] Apr, B12 deficiency E53.8 [facility] [address] [facility] [id number] [address] [place] [address] Jan, Periumbilical hernia K42.9 ; CKD (chronic kidney disease) stage 3, GFR 30-59 ml/min N18.3 ; Essential hypertension I10 ; GERD (gastroesophageal reflux disease) K21.9 ; Hyperlipidemia, unspecified hyperlipidemia E78.5 and Major depressive disorder, recurrent episode, unspecified severity F33.9 [place] [address] [facility] [id number] [address] [place] [phone] Dec, Anxiety F41.9 [place] [address] [id number] [address] [place] [phone] Nov, Elevated platelet count R79. 89 [place] [address] [id number] [address] [place] [phone] Nov, [place] [address] [place] [id number] [address] [place] [address] Nov, Elevated platelet count R79. 89 [place] [address] [place] [id number] [address] [place] [phone] Nov, Anxiety F41.9 [place] [address] [facility] [id number] [address] [place] [address] Nov, Bilateral low back pain, wit h sciatica presence unspecified M54.5 ; Cervicalgia M54.2 ; Degenerative disc disease, cervical M50.30 and Degenerative disc disease, thoracic M51.34 [place] [address] [place] [id number] [address] [place] [phone] Nov, Chronic pain syndrome G89.4 and Bilateral low back pain, with sciatica presence unspecified M54.5 [place] [address] [place] [id number] [address] [place] [phone] Oct, Umbilical hernia without obs truction and without gangrene K42.9 [place] [address] [facility] [id number] [address] [place] [phone] Oct, Chronic pain syndrome G89.4 [place] [address] [place] [id number] [address] [place] [phone] Oct, Chronic pain syndrome G89.4 and Anxiety F41.9 [place] [address] [address] 12 Oct, 2018 Elevated platelet count R79. 89 [place] [address] [place] [id number] [address] [place] [address] Oct, CKD (chronic kidney disease) stage 3, GFR 30-59 ml/min N18.3 ; Other chest pain R07.89 ; Acute midline thoracic back pain M54.6 ; Essential hypertension I10 and History of osteoporosis Z87.39 [place] [address] [place] [id number] [address] [place] [phone] 29 Sep, 2018 Chronic pain syndrome G89.4 [place] [address] [place] [id number] [place] [phone] 16 Sep, 2018 [place] [address] [address] Sep, Anxiety F41.9 and Chronic pa in syndrome G89.4 [place] [address] [place] [id number] [address] [place] [phone] 18 Aug, 2018 Chronic pain syndrome G89.4 and Anxiety F41.9 [place] [address] [place] [id number] [place] [address] Aug, [place] [address] [address] Aug, Cannabis abuse F12.10 and Co ntrolled substance agreement terminated Z91.14 [place] [address] [place] [id number] [address] [place] [phone] Jul, Chronic pain syndrome G89.4 ; Bilateral low back pain, with sciatica presence unspecified M54.5 ; Chronic prescription opiate use Z79.899 ; Essential hypertension I10 ; Hyperlipidemia, unspecified hyperlipidemia E78.5 ; CKD (chronic kidney disease) stage 3, GFR 30-59 ml/min N18.3 and Allergic rhinitis J30.9 [place] [address] [place] [id number] [address] [place] [address] Jul, Chronic pain syndrome G89.4 and Anxiety F41.9 [place] [address] [place] [id number] [address] [place] [address] Jul, Screening for breast cancer Z12.31 and Major depressive disorder, recurrent episode, unspecified severity F33.9 [place] [address] [place] [id number] [address] [place] [address] Jun, Chronic pain syndrome G89.4 and Anxiety F41.9 [place] [address] [place] [id number] [address] [place] [phone] May, Chronic pain syndrome G89.4 and Anxiety F41.9 [place] [address] [place] [id number] [address] [place] [address] Apr, Anxiety F41.9 [place] [address] [address] Apr, Chronic prescription opiate use Z79.899 ; Chronic pain syndrome G89.4 ; Essential hypertension I10 ; Allergic rhinitis J30.9 and CKD (chronic kidney disease) stage 3, GFR 30-59 ml/min N18.3 [place] [address] [place] [id number] [address] [place] [address] Apr, [place] [address] [address] March, Anxiety F41.9 and Chronic pa in syndrome G89.4 [place] [address] [facility] [id number] [address] [place] [address] March, CKD (chronic kidney disease) stage 3, GFR 30-59 ml/min N18.3 ; B12 deficiency E53.8 and Hyperlipidemia, unspecified hyperlipidemia E78.5 [place] [address] [place] [id number] [address] [place] [phone] March, Anxiety F41.9 and Chronic pa in syndrome G89.4 [place] [address] [address] Feb, Anxiety F41.9 and Chronic pa in syndrome G89.4 [place] [address] [address] Jan, B12 deficiency E53.8 [place] [address] [address] Jan, [place] [address] [address] Jan, Anxiety F41.9 ; Chronic pain syndrome G89.4 and Essential hypertension I10 [place] [address] [address] Jan, CKD (chronic kidney disease) stage 3, [...] of right shoulder joint M75.51 [place] [address] [address] Dec, Essential hypertension I10 [place] [address] [address] 15 Dec, 2017 Chronic pain syndrome G89.4 [place] [address] [address] Dec, Chronic pain syndrome G89.4 [place] [address] [address] Nov, [place] [address] [address] Nov, Chronic pain syndrome G89.4 and Anxiety F41.9 [facility] [address] [place] [id number] [address] [place] [address] Oct, Chronic pain syndrome G89.4 ; Other constipation K59.09 and Chronic prescription opiate use Z79.899 [facility] [address] [facility] [id number] [address] [place] [phone] Oct, Chronic pain syndrome G89.4 and Anxiety F41.9 [place] [address] [place] [id number] [address] [place] [address] Sep, Essential hypertension I10 [place] [address] [place] [id number] [place] [address] Sep, Chronic pain syndrome G89.4 and Anxiety F41.9 [place] [address] [place] [id number] [address] [place] [address] Aug, Chronic pain syndrome G89.4 and Anxiety F41.9 [place] [address] [place] [id number] [address] [place] [address] Jul, Essential hypertension I10 [place] [address] [place] [id number] [address] [place] [phone] 22 Jul, 2017 Chronic obstructive pulmonar y disease, unspecified COPD type J44.9 [place] [address] [place] [id number] [address] [place] [address] Jul, Chronic pain syndrome G89.4 and Anxiety F41.9 [place] [address] [place] [id number] [address] [place] [address] 13 Jul, 2017 Chronic pain syndrome G89.4 ; Essential hypertension I10 ; Fibromyalgia M79.7 ; CKD (chronic kidney disease) stage 3, GFR 30-59 ml/min N18.3 ; Subacromial bursitis, right M75.51 and Goals of care, co unseling/discussion Z71.89 [place] [address] [place] [id number] [address] [place] [phone] Jun, Chronic pain syndrome G89.4 and Anxiety F41.9 [facility] [address] [id number] [address] [place] [address] May, Chronic pain syndrome G89.4 and Anxiety F41.9 [facility] [address] [id number] [address] [place] [address] Apr, Chronic pain syndrome G89.4 and Anxiety F41.9 [facility] [address] [facility] [id number] [address] [place] [address] Apr, Drug induced constipation K5 9.03 ; Chronic pain syndrome G89.4 and CKD (chronic kidney disease) stage 3, GFR 30-59 ml/min N18.3 [facility] [address] [id number] [address] [place] [phone] 02 Apr, 2017 Chronic pain syndrome G89.4 and Anxiety F41.9 [facility] [address] [facility] [id number] [address] [place] [address] March, Chronic pain syndrome G89.4 and Anxiety F41.9 [facility] [address] [id number] [address] [place] [address] March, Decreased GFR R94.4 [facility] [address] [facility] [id number] [address] [place] [phone] Feb, [facility] [address] [facility] [id number] [address] [place] [phone] Feb, Chronic pain syndrome G89.4 and Anxiety F41.9 [facility] [address] [facility] [id number] [address] [place] [address] Jan, Decreased GFR R94.4 [facility] [address] [facility] [id number] [address] [place] [phone] Jan, Decreased GFR R94.4 [facility] [address] [facility] [id number] [address] [place] [address] Jan, Allergic rhinitis J30.9 ; Es sential hypertension I10 ; Major depressive disorder, recurrent episode, unspecified severity F33.9 and Primary insomnia F51.01 [place] [address] [address] Jan, Acute right-sided thoracic b ack pain M54.6 ; Subacromial bursitis of right shoulder joint M75.51 ; Chronic pain syndrome G89.4 and Anxiety F41.9 [place] [address] [address] Jan, Decreased GFR R94.4 [place] [address] [address] Dec, Decreased GFR R94.4 [place] [address] [address] Dec, Decreased GFR R94.4 [place] [address] [address] Dec, Decreased GFR R94.4 [place] [address] [address] Dec, Decreased GFR R94.4 [place] [address] [address] Dec, Anxiety F41.9 and Bilateral low back pain, with sciatica presence unspecified M54.5 [place] [address] [address] Dec, Thrombocytosis D47.3 ; Hyper lipidemia, unspecified hyperlipidemia E78.5 ; Need for hepatitis C screening test Z11.59 and B12 deficiency E53.8 [place] [address] [address] Nov, Need for hepatitis C screeni ng test Z11.59 [place] [address] [address] Nov, Anxiety F41.9 and Bilateral low back pain, with sciatica presence unspecified M54.5 [place] [address] [address] Oct, Bilateral low back pain, wit h sciatica presence unspecified M54.5 ; Chronic prescription opiate use Z79.899 ; Anxiety F41.9 ; Essential hypertension I10 ; Hyperlipidemia, unspecified hyperlipidemia E78.5 ; Health care maintenance Z00.00 and Thrombocytosis D47.3 [place] [address] [address] Sep, [facility] [address] [address] Sep, [place] [address] [address] Aug, [place] [address] [address] Jul, B12 deficiency E53.[address] [address] Jul, [place] [address] [address] Jul, Essential hypertension I10 ; Chronic pain syndrome G89.4 ; Anxiety F41.9 ; Screening for breast cancer Z12.39 ; Atherosclerosis of [place] coronary artery of [place] heart without angina pectoris I25.10 ; Major depressive disorder, recurrent episode, unspecified severity F33.9 ; Primary insomnia F51.01 and Allergic rhinitis J30.9 [place] [id number] [place] [address] Jun, [facility] [address] [address] Jun, Leg wound, right, initial en counter S81.801A and Encounter for immunization Z23 [place] [id number] [address] [place] [address] Jun, Open wound of right ear, uns pecified open wound type, initial encounter S01.301A [place] [address] [address] May, B12 deficiency E53.8 [facility] [address] [address] May, [facility] [address] [address] May, [facility] [address] [address] May, Chronic pain syndrome G89.4 ; Chronic prescription opiate use Z79.899 ; Allergic rhinitis J30.9 ; Essential hypertension I10 and Non-healing skin lesion L98.9 [place] [address] [address] Apr, [place] [address] [address] March, [facility] [address] [address] Feb, [facility] [address] [address] Feb, [place] [address] [address] Feb, Chronic pain syndrome G89.4 ; Anxiety F41.9 ; B12 deficiency E53.8 ; Allergic rhinitis J30.9 ; Fibromyalgia M79.7 ; Actinic keratosis L57.0 ; Skin rash R21 ; Open wound of right ear, unspecified open wound type, initial encounter S01.301A ; Subacromial bursitis, right M75.51 ; GERD (gastroesophageal reflux disease) K21.9 and Chronic obstructive pulmonary disease, unspecified COPD type J44.9 [facility] [address] [address] Jan, [facility] [address] [address] Jan, Essential hypertension I10 [facility] [address] [facility] [id number] [address] [place] [address] Jan, [facility] [address] [facility] [id number] [address] [place] [address] Jan, [facility] [address] [facility] [id number] [address] [place] [address] Jan, [facility] [address] [facility] [id number] [address] [place] [address] Dec, [facility] [address] [facility] [id number] [address] [place] [address] Dec, Essential hypertension I10 [facility] [address] [facility] [id number] [address] [place] [address] Dec, [facility] [address] [facility] [id number] [address] [place] [address] Dec, B12 deficiency E53.8 and Ess ential hypertension I10 [facility] [address] [facility] [id number] [address] [place] [address] Dec, [facility] [address] [facility] [id number] [address] [place] [address] Nov, Right shoulder pain M25.511 [facility] [address] [place] [address] Nov, Right shoulder pain M25.511 [facility] [address] [facility] [id number] [address] [place] [address] Nov, Essential hypertension I10 a nd B12 deficiency E53.8 [facility] [address] [facility] [id number] [address] [place] [address] 14 Nov, 2015 Major depressive disorder, r ecurrent episode, unspecified severity F33.9 ; Anxiety F41.9 ; Chronic pain syndrome G89.4 ; Essential hypertension I10 ; Hyperlipidemia, unspecified hyperlipidemia E78.5 ; Chronic prescription opiate use Z79.899 ; Allergic rhinitis J30.9 ; B12 deficiency E53.8 and Right shoulder pain M25.511 [facility] [address] [id number] [address] [place] [address] Oct, [facility] [address] [id number] [address] [place] [address] Oct, [facility] [address] [facility] [id number] [address] [place] [address] Sep, [facility] [address] [id number] [address] [place] [address] Sep, [facility] [address] [facility] [id number] [address] [place] [address] Aug, [facility] [address] [id number] [address] [place] [address] Aug, [facility] [address] [place] [id number] [address] [place] [address] Aug, [facility] [address] [facility] [id number] [address] [place] [address] Aug, Other constipation K59.09 ; Hyperlipidemia, unspecified hyperlipidemia E78.5 ; Essential hypertension I10 ; Primary insomnia F51.01 ; Anxiety F41.9 ; Chronic pain syndrome G89.4 ; Right shoulder pain M25.511 and Acute cystitis without hematuria N30.00 [facility] [address] [facility] [id number] [address] [place] [address] Jul, [facility] [address] [id number] [address] [place] [address] Jul, [facility] [address] [facility] [id number] [address] [place] [address] Jun, [facility] [address] [facility] [id number] [address] [place] [phone] Jun, [facility] [address] [facility] [id number] [address] [place] [phone] Jun, [facility] [address] [facility] [id number] [address] [place] [id number] May, [facility] [address] [id number] [address] [place] [phone] May, Other chronic pain 338.29 ; Hypertension 401.9 and Constipation due to opioid therapy 564.09 [facility] [address] [id number] [address] [place] [phone] 17 May, 2015 [facility] [address] [id number] [address] [place] [phone] May, [facility] [address] [id number] [address] [place] [phone] Apr, [facility] [address] [id number] [address] [place] [phone] Apr, Unspecified essential hypert ension 401.9 [facility] [address] [id number] [address] [place] [id number] Apr, [facility] [address] [id number] [address] [place] [phone] Apr, [facility] [address] [id number] [address] [place] [phone] Apr, [facility] [address] [id number] [address] [place] [id number] Apr, [facility] [address] [id number] [address] [place] [id number] Apr, [facility] [address] [id number] [address] [place] [phone] Apr, [facility] [address] [id number] [address] [place] [id number] March, Unspecified essential hypert ension 401.9 [facility] [address] [id number] [address] [place] [phone] March, [facility] [address] [facility] [id number] [address] [place] [id number] March, [facility] [address] [id number] [address] [place] [id number], [place] [id number] 14 Feb, 2015 [facility] [address] [id number] [address] [place] [id number], [place] [id number] Feb, [facility] [address] [id number] [address] [place] [id number], [place] [id number] Jan, [facility] [address] [id number] [address] [place] [id number], [place] [id number] Jan, [facility] [address] [id number] [address] [place] [id number], [place] [id number] Jan, [facility] [address] [id number] [address] [place] [id number], [place] [id number] Jan, [facility] [address] [id number] [address] [place] [id number], [place] [id number] Jan, [facility] [address] [id number] [address] [place] [id number], [place] [id number] Jan, [facility] [address] [id number] [address] [place] [id number], [place] [id number] Jan, [facility] [address] [id number] [address] [place] [id number], [place] [id number] 16 Dec, 2014 [facility] [address] [address] [id number] [address] [place] [address], [place] [address] Dec, [facility] [address] [id number] [address] [place] [address], [place] [address] Dec, [facility] [address] [id number] [address] [place] [address], [place] [address] Nov, [facility] [address] [id number] [address] [place] [address], [place] [address] Nov, [facility] [address] [id number] [address] [place] [address], [place] [address] Oct, [facility] [address] [id number] [address] [place] [address], [place] [address] 16 Oct, 2014 [facility] [address] [id number] [address] [place] [address], [place] [address] Oct, [facility] [address] [id number] [address] [place] [address], [place] [address] Oct, [facility] [address] [id number] [address] [place] [address], [place] [address] Oct, [facility] [address] [id number] [address] [place] [address], [place] [address] Oct, [facility] [address] [id number] [address] [place] [address], [place] [address] Oct, [facility] [address] [id number] [address] [place] [address], [place] [address] Oct, [facility] [address] [id number] [address] [place] [address], [place] [address] Sep, [facility] [address] [id number] [address] [place] [address], [place] [address] Sep, [facility] [address] [id number] [address] [place] [address], [place] [address] Sep, [facility] [address] [id number] [address] [place] [address], [place] [address] Sep, [facility] [address] [id number] [address] [place] [address], [place] [address] Sep, [facility] [address] [id number] [address] [place] [address], [place] [address] Sep, [facility] [address] [id number] [address] [place] [address], [place] [address] Aug, [facility] [address] [id number] [address] [place] [address], [place] [address] Aug, [facility] [address] [id number] [address] [place] [address], [place] [address] Aug, [facility] [address] [id number] [address] [place] [address], [place] [address] Aug, [facility] [address] [id number] [address] [place] [address], [place] [address] Aug, [facility] [address] [id number] [address] [place] [address], [place] [address] Aug, [facility] [address] [id number] [address] [place] [address], [place] [address] Aug, [facility] [address] [id number] [address] [place] [address], [place] [address] Aug, [facility] [address] [id number] [address] [place] [address], [place] [address] Aug, [facility] [address] [id number] [address] [place] [address], [place] [address] Aug, [facility] [address] [id number] [address] [place] [address], [place] [address] Jul, [facility] [address] [id number] [address] [place] [address], [place] [address] Jul, [facility] [address] [id number] [address] [place] [address], [place] [address] Jul, [facility] [address] [id number] [address] [place] [address], [place] [address] Jul, [facility] [address] [id number] [address] [place] [address], [place] [address] Jul, [facility] [address] [id number] [address] [place] [address], [place] [address] Jul, [facility] [address] [id number] [address] [place] [address], [place] [address] Jun, [facility] [address] [id number] [address] [place] [address], [place] [address] Jun, [facility] [address] [id number] [address] [place] [address], [place] [address] Jun, [facility] [address] [id number] [facility] [place] [address] Jun, [facility] [address] [id number] [address] [place] [address], [place] [address] Jun, [facility] [address] [id number] [address] [place] [address], [place] [address] Jun, [facility] [address] [id number] [address] [place] [address], [place] [address] May, [facility] [address] [id number] [address] [place] [address], [place] [address] May, [facility] [address] [id number] [address] [place] [address], [place] [address] May, [facility] [address] [id number] [address] [place] [address], [place] [address] May, [facility] [address] [id number] [address] [place] [address], [place] [address] May, [facility] [address] [id number] [address] [place] [address], [place] [address] Apr, [facility] [address] [id number] [address] [place] [address], [place] [address] Apr, [facility] [address] [id number] [address] [place] [address], [place] [address] Apr, [facility] [address] [id number] [address] [place] [address], [place] [address] Apr, [facility] [address] [id number] [address] [place] [address], [place] [address] March, [facility] [address] [id number] [address] [place] [address], [place] [address] March, [facility] [address] [id number] [address] [place] [address], [place] [address] March, [facility] [address] [id number] [facility] [place] [address] March, [facility] [address] [id number] [address] [place] [address], [place] [address] March, [facility] [address] [id number] [address] [place] [address], [place] [address] March, [facility] [address] [id number] [address] [place] [address], [place] [address] Feb, [facility] [address] [id number] [address] [place] [address], [place] [address] Feb, [facility] [address] [id number] [address] [place] [address], [place] [address] Feb, [facility] [address] [id number] [address] [place] [address], [place] [address] Feb, [facility] [address] [id number] [address] [place] [address], [place] [address] Feb, [facility] [address] [id number] [address] [place] [address], [place] [address] Feb, [facility] [address] [id number] [address] [place] [address], [place] [address] Feb, [facility] [address] [id number] [address] [place] [address], [place] [address] Feb, [facility] [address] [id number] [address] [place] [address], [place] [address] Jan, [facility] [address] [id number] [address] [place] [address], [place] [address] Jan, [facility] [address] [id number] [address] [place] [address], [place] [address] Jan, [facility] [address] [id number] [address] [place] [address], [place] [address] Jan, [facility] [address] [id number] [address] [place] [address], [place] [address] Jan, [facility] [address] [id number] [address] [place] [address], [place] [address] Jan, [facility] [address] [id number] [address] [place] [address], [place] [address] Dec, [facility] [address] [id number] [address] [place] [address], [place] [address] Dec, [facility] [address] [id number] [address] [place] [address], [place] [address] Nov, [facility] [address] [id number] [address] [place] [address], [place] [address] Nov, [facility] [address] [id number] [address] [place] [address], [place] [address] Nov, [facility] [address] [id number] [address] [place] [address], [place] [address] Nov, [facility] [address] [id number] [address] [place] [address], [place] [address] Nov, [facility] [address] [id number] [address] [place] [address], [place] [address] Nov, [facility] [address] [id number] [address] [place] [address], [place] [address] Nov, [facility] [address] [id number] [address] [place] [address], [place] [address] Nov, [facility] [address] [id number] [address] [place] [address], [place] [address] Nov, [facility] [address] [id number] [address] [place] [address], [place] [address] Nov, [facility] [address] [id number] [address] [place] [address], [place] [address] Nov, [facility] [address] [id number] [address] [place] [address], [place] [address] Nov, [facility] [address] [id number] [address] [place] [address] Nov, [facility] [address] [id number] [address] [place] [id number] Nov, [facility] [address] [id number] [address] [place] [id number] Nov, [facility] [address] [id number] [address] [place] [id number] Oct, [facility] [address] [id number] [address] [place] [id number] Oct, [facility] [address] [id number] [address] [place] [id number] Oct, [facility] [address] [id number] [address] [place] [id number] Oct, [facility] [address] [id number] [address] [place] [id number] Oct, [facility] [address] [id number] [address] [place] [id number] Oct, [facility] [address] [id number] [address] [place] [address] Oct, [facility] [address] [id number] [address] [place] [id number] Oct, [facility] [address] [id number] [address] [place] [id number] Oct, [facility] [address] [id number] [address] [place] [id number] Aug, [facility] [address] [id number] [address] [place] [id number] Aug, IMMUNIZATIONS No Known Immunizations SOCIAL HISTORY [...] by Dr. Troy Michelle pain specialist in [place], [place] Medical History Chronic low back pain [...]
--- OUTSIDE RECORDS SUMMARY | 2020-06-19 02:10 | XMS REPORT ---
Author Author ARMANDO Mahsavirgen LOCK Organization [facility] Address [address] [place] [address] Care Team Providers Care Software Applications Engineer Name Role Phone ARMANDONYASIA DIAZY Unavailable PROBLEMS Type Condition ICD9-CM Code AVG54-WS Code Onset Dates Condition S tatus SNOMED Code Problem Other constipation K59.09 Active 1 70980913037229 Problem Primary insomnia F51.01 Active 193 082966 Problem Chronic pain syndrome G89.4 Active 005770135 Problem Essential hypertension I10 Active 03053085 Problem Anxiety F41.9 Active 79874181 Problem Major depressive disorder, recurrent episode, un specified severity F33.9 Active 38208137 Problem Atherosclerosis of [place] co ronary artery of [place] heart without angina pectoris I25.10 Active [id number] Problem Bilateral low back pain, with sciatica presence unspecifie d M54.5 Active 503202245 Problem Allergic rhinitis J30.9 Active 61 457348 Problem Fibromyalgia M79.7 Active 2989117 7 Problem Degenerative disc disease, thoracic M51.34 Active 33985803 Problem B12 deficiency E53.8 Active 66692 4004 Problem Degenerative disc disease, cervical M50.30 Active 30150423 Problem Hyperlipidemia, unspecified hyperlipidemia E78.5 Active 20083065 Problem GERD (gastroesophageal reflux disease) K21.9 Active 929099912 Problem Chronic obstructive pulmonary disease, unspecified COPD ty pe J44.9 Active 96580923 Problem CKD (chronic kidney disease) stage 3, GFR 30-59 ml/min N18.3 Active 910567555 Problem Cannabis abuse F12.10 Active 42952 009 ALLERGIES No Information ENCOUNTERS Encounter Location Date Diagnosis [facility] [address] [facility] [id number] [address] [place] [address] Apr, B12 deficiency E53.8 [facility] [address] [facility] [id number] [address] [place] [address] Jan, Periumbilical hernia K42.9 ; CKD (chronic kidney disease) stage 3, GFR 30-59 ml/min N18.3 ; Essential hypertension I10 ; GERD (gastroesophageal reflux disease) K21.9 ; Hyperlipidemia, unspecified hyperlipidemia E78.5 and Major depressive disorder, recurrent episode, unspecified severity F33.9 [place] [address] [id number] [address] [place] [address] Dec, Anxiety F41.9 [place] [address] [id number] [address] [place] [phone] Nov, Elevated platelet count R79. 89 [place] [address] [id number] [address] [place] [phone] Nov, [place] [address] [facility] [id number] [address] [place] [id number] Nov, Elevated platelet count R79. 89 [place] [address] [facility] [id number] [address] [place] [phone] Nov, Anxiety F41.9 [place] [address] [id number] [address] [place] [address] Nov, Bilateral low back pain, wit h sciatica presence unspecified M54.5 ; Cervicalgia M54.2 ; Degenerative disc disease, cervical M50.30 and Degenerative disc disease, thoracic M51.34 [place] [address] [place] [id number] [address] [place] [address] Nov, Chronic pain syndrome G89.4 and Bilateral low back pain, with sciatica presence unspecified M54.5 [place] [address] [place] [id number] [address] [place] [address] Oct, Umbilical hernia without obs truction and without gangrene K42.9 [place] [address] [facility] [id number] [address] [place] [address] Oct, Chronic pain syndrome G89.4 [place] [address] [place] [id number] [address] [place] [address] Oct, Chronic pain syndrome G89.4 and Anxiety F41.9 [place] [address] [place] [id number] [address] [place] [phone] 12 Oct, 2018 Elevated platelet count R79. 89 [place] [address] [place] [id number] [address] [place] [id number] 10 Oct, 2018 CKD (chronic kidney disease) stage 3, GFR 30-59 ml/min N18.3 ; Other chest pain R07.89 ; Acute midline thoracic back pain M54.6 ; Essential hypertension I10 and History of osteoporosis Z87.39 [place] [id number] [place] [id number] 29 Sep, 2018 Chronic pain syndrome G89.4 [place] [address] [place] [id number] [place] [phone] 16 Sep, 2018 [place] [address] [address] Sep, Anxiety F41.9 and Chronic pa in syndrome G89.4 [place] [address] [place] [id number] [address] [place] [id number] 18 Aug, 2018 Chronic pain syndrome G89.4 and Anxiety F41.9 [place] [address] [place] [id number] [address] [place] [address] Aug, [place] [address] [address] Aug, Cannabis abuse F12.10 and Co ntrolled substance agreement terminated Z91.14 [place] [address] [place] [id number] [address] [place] [address] 28 Jul, 2018 Chronic pain syndrome G89.4 ; Bilateral low back pain, with sciatica presence unspecified M54.5 ; Chronic prescription opiate use Z79.899 ; Essential hypertension I10 ; Hyperlipidemia, unspecified hyperlipidemia E78.5 ; CKD (chronic kidney disease) stage 3, GFR 30-59 ml/min N18.3 and Allergic rhinitis J30.9 [place] [address] [place] [id number] [place] [address] Jul, Chronic pain syndrome G89.4 and Anxiety F41.9 [place] [address] [place] [id number] [address] [place] [address] Jul, Screening for breast cancer Z12.31 and Major depressive disorder, recurrent episode, unspecified severity F33.9 [place] [address] [place] [id number] [address] [place] [address] Jun, Chronic pain syndrome G89.4 and Anxiety F41.9 [place] [address] [place] [id number] [address] [place] [address] May, Chronic pain syndrome G89.4 and Anxiety F41.9 [place] [address] [place] [id number] [address] [place] [address] Apr, Anxiety F41.9 [place] [address] [place] [id number] [place] [address] Apr, Chronic prescription opiate use Z79.899 ; Chronic pain syndrome G89.4 ; Essential hypertension I10 ; Allergic rhinitis J30.9 and CKD (chronic kidney disease) stage 3, GFR 30-59 ml/min N18.3 [place] [address] [place] [id number] [address] [place] [address] Apr, [place] [address] [place] [id number] [address] [place] [address] March, Anxiety F41.9 and Chronic pa in syndrome G89.4 [place] [address] [facility] [id number] [address] [place] [address] March, CKD (chronic kidney disease) stage 3, GFR 30-59 ml/min N18.3 ; B12 deficiency E53.8 and Hyperlipidemia, unspecified hyperlipidemia E78.5 [place] [address] [facility] [id number] [address] [place] [address] March, Anxiety F41.9 and Chronic pa in syndrome G89.4 [place] [address] [address] Feb, Anxiety F41.9 and Chronic pa in syndrome G89.4 [place] [address] [address] Jan, B12 deficiency E53.8 [place] [address] [address] Jan, [place] [address] [address] Jan, Anxiety F41.9 ; Chronic pain syndrome G89.4 and Essential hypertension I10 [place] [address] [address] Jan, CKD (chronic kidney disease) stage 3, [...] Subacromial bursitis of right shoulder joint M75.51 [place] [address] [address] 28 Dec, 2017 Essential hypertension I10 [place] [address] [address] 15 Dec, 2017 Chronic pain syndrome G89.4 [place] [address] [address] Dec, Chronic pain syndrome G89.4 [place] [address] [address] Nov, [place] [address] [address] Nov, Chronic pain syndrome G89.4 and Anxiety F41.9 [place] [address] [facility] [id number] [address] [place] [address] Oct, Chronic pain syndrome G89.4 ; Other constipation K59.09 and Chronic prescription opiate use Z79.899 [facility] [address] [facility] [id number] [address] [place] [phone] Oct, Chronic pain syndrome G89.4 and Anxiety F41.9 [place] [address] [facility] [id number] [address] [place] [address] Sep, Essential hypertension I10 [place] [address] [facility] [id number] [address] [place] [address] 16 Sep, 2017 Chronic pain syndrome G89.4 and Anxiety F41.9 [place] [address] [facility] [id number] [address] [place] [id number] Aug, Chronic pain syndrome G89.4 and Anxiety F41.9 [place] [address] [place] [id number] [address] [place] [address] Jul, Essential hypertension I10 [place] [address] [facility] [id number] [address] [place] [address] 22 Jul, 2017 Chronic obstructive pulmonar y disease, unspecified COPD type J44.9 [place] [address] [facility] [id number] [address] [place] [address] Jul, Chronic pain syndrome G89.4 and Anxiety F41.9 [place] [address] [place] [id number] [address] [place] [id number] 13 Jul, 2017 Chronic pain syndrome G89.4 ; Essential hypertension I10 ; Fibromyalgia M79.7 ; CKD (chronic kidney disease) stage 3, GFR 30-59 ml/min N18.3 ; Subacromial bursitis, right M75.51 and Goals of care, co unseling/discussion Z71.89 [place] [address] [facility] [id number] [address] [place] [address] Jun, Chronic pain syndrome G89.4 and Anxiety F41.9 [place] [address] [id number] [address] [place] [address] May, Chronic pain syndrome G89.4 and Anxiety F41.9 [facility] [address] [facility] [id number] [address] [place] [address] Apr, Chronic pain syndrome G89.4 and Anxiety F41.9 [facility] [address] [facility] [id number] [address] [place] [address] Apr, Drug induced constipation K5 9.03 ; Chronic pain syndrome G89.4 and CKD (chronic kidney disease) stage 3, GFR 30-59 ml/min N18.3 [facility] [address] [facility] [id number] [address] [place] [address] Apr, Chronic pain syndrome G89.4 and Anxiety F41.9 [place] [address] [facility] [id number] [address] [place] [address] March, Chronic pain syndrome G89.4 and Anxiety F41.9 [facility] [address] [facility] [id number] [address] [place] [address] March, Decreased GFR R94.4 [facility] [address] [facility] [id number] [address] [place] [phone] Feb, [facility] [address] [facility] [id number] [address] [place] [address] Feb, Chronic pain syndrome G89.4 and Anxiety F41.9 [facility] [address] [facility] [id number] [address] [place] [address] Jan, Decreased GFR R94.4 [facility] [address] [facility] [id number] [address] [place] [address] Jan, Decreased GFR R94.4 [facility] [address] [facility] [id number] [address] [place] [id number] Jan, Allergic rhinitis J30.9 ; Es sential hypertension I10 ; Major depressive disorder, recurrent episode, unspecified severity F33.9 and Primary insomnia F51.01 [facility] [address] [place] [id number] [address] [place] [address] Jan, Acute right-sided thoracic b ack pain M54.6 ; Subacromial bursitis of right shoulder joint M75.51 ; Chronic pain syndrome G89.4 and Anxiety F41.9 [place] [address] [place] [id number] [address] [place] [address] Jan, Decreased GFR R94.4 [place] [address] [place] [id number] [address] [place] [address] Dec, Decreased GFR R94.4 [place] [address] [place] [id number] [place] [address] Dec, Decreased GFR R94.4 [place] [address] [address] Dec, Decreased GFR R94.4 [place] [address] [place] [id number] [place] [address] Dec, Decreased GFR R94.4 [place] [address] [address] Dec, Anxiety F41.9 and Bilateral low back pain, with sciatica presence unspecified M54.5 [place] [address] [address] Dec, Thrombocytosis D47.3 ; Hyper lipidemia, unspecified hyperlipidemia E78.5 ; Need for hepatitis C screening test Z11.59 and B12 deficiency E53.8 [place] [address] [place] [id number] [address] [place] [address] Nov, Need for hepatitis C screeni ng test Z11.59 [place] [address] [place] [id number] [place] [address] Nov, Anxiety F41.9 and Bilateral low back pain, with sciatica presence unspecified M54.5 [place] [address] [place] [id number] [address] [place] [address] Oct, Bilateral low back pain, wit h sciatica presence unspecified M54.5 ; Chronic prescription opiate use Z79.899 ; Anxiety F41.9 ; Essential hypertension I10 ; Hyperlipidemia, unspecified hyperlipidemia E78.5 ; Health care maintenance Z00.00 and Thrombocytosis D47.3 [place] [address] [address] Sep, [facility] [address] [address] Sep, [place] [address] [address] Aug, [place] [address] [address] Jul, B12 deficiency E53.8 [place] [address] [address] Jul, [place] [address] [address] Jul, Essential hypertension I10 ; Chronic pain syndrome G89.4 ; Anxiety F41.9 ; Screening for breast cancer Z12.39 ; Atherosclerosis of sit[place] coronary artery of [place] heart without angina pectoris I25.10 ; Major depressive disorder, recurrent episode, unspecified severity F33.9 ; Primary insomnia F51.01 and Allergic rhinitis J30.9 [place] [address] [place] [id number] [address] [place] [address] Jun, [facility] [address] [place] [id number] [address] [place] [address] Jun, Leg wound, right, initial en counter S81.801A and Encounter for immunization Z23 [place] [address] [place] [id number] [address] [place] [address] Jun, Open wound of right ear, uns pecified open wound type, initial encounter S01.301A [place] [address] [place] [id number] [address] [place] [address] May, B12 deficiency E53.8 [facility] [id number] [place] [address] May, [facility] [address] [place] [id number] [address] [place] [address] May, [facility] [address] [address] May, Chronic pain syndrome G89.4 ; Chronic prescription opiate use Z79.899 ; Allergic rhinitis J30.9 ; Essential hypertension I10 and Non-healing skin lesion L98.9 [place] [address] [address] Apr, [place] [address] [address] March, [facility] [address] [address] Feb, [facility] [address] [address] Feb, [place] [address] [address] Feb, Chronic pain syndrome G89.4 ; Anxiety F41.9 ; B12 deficiency E53.8 ; Allergic rhinitis J30.9 ; Fibromyalgia M79.7 ; Actinic keratosis L57.0 ; Skin rash R21 ; Open wound of right ear, unspecified open wound type, initial encounter S01.301A ; Subacromial bursitis, right M75.51 ; GERD (gastroesophageal reflux disease) K21.9 and Chronic obstructive pulmonary disease, unspecified COPD type J44.9 [facility] [address] [place] [id number] [address] [place] [address] Jan, [facility] [address] [address] Jan, Essential hypertension I10 [place] [address] [facility] [id number] [address] [place] [id number] 11 Jan, 2016 [facility] [address] [facility] [id number] [address] [place] [address] Jan, [facility] [address] [facility] [id number] [address] [place] [address] Jan, [facility] [address] [facility] [id number] [address] [place] [address] Dec, [facility] [address] [facility] [id number] [address] [place] [address] Dec, Essential hypertension I10 [facility] [address] [facility] [id number] [place] [address] Dec, [facility] [address] [facility] [id number] [place] [address] Dec, B12 deficiency E53.8 and Ess ential hypertension I10 [facility] [address] [facility] [id number] [address] [place] [address] Dec, [facility] [address] [facility] [id number] [address] Nov, Right shoulder pain M25.511 [facility] [address] [address] Nov, Right shoulder pain M25.511 [facility] [address] [facility] [id number] [address] [place] [address] Nov, Essential hypertension I10 a nd B12 deficiency E53.8 [facility] [address] [facility] [id number] [address] [place] [address] 14 Nov, 2015 Major depressive disorder, r ecurrent episode, unspecified severity F33.9 ; Anxiety F41.9 ; Chronic pain syndrome G89.4 ; Essential hypertension I10 ; Hyperlipidemia, unspecified hyperlipidemia E78.5 ; Chronic prescription opiate use Z79.899 ; Allergic rhinitis J30.9 ; B12 deficiency E53.8 and Right shoulder pain M25.511 [facility] [address] [id number] [address] [place] [address] Oct, [facility] [address] [id number] [address] [place] [address] Oct, [facility] [address] [facility] [id number] [address] [place] [address] Sep, [facility] [address] [id number] [address] [place] [address] Sep, [facility] [address] [facility] [id number] [address] [place] [address] Aug, [facility] [address] [facility] [id number] [address] [place] [address] Aug, [facility] [address] [place] [id number] [address] [place] [address] Aug, [facility] [address] [place] [id number] [address] [place] [address] Aug, Other constipation K59.09 ; Hyperlipidemia, unspecified hyperlipidemia E78.5 ; Essential hypertension I10 ; Primary insomnia F51.01 ; Anxiety F41.9 ; Chronic pain syndrome G89.4 ; Right shoulder pain M25.511 and Acute cystitis without hematuria N30.00 [facility] [address] [place] [id number] [address] [place] [id number] 16 Jul, 2015 [facility] [address] [facility] [id number] [address] [place] [address] Jul, [facility] [address] [facility] [id number] [address] [place] [id number] Jun, [facility] [address] [place] [id number] [address] [place] [address] Jun, [facility] [address] [facility] [id number] [address] [place] [id number] Jun, [facility] [address] [facility] [id number] [address] [place] [address] May, [facility] [address] [id number] [address] [place] [address] May, Other chronic pain 338.29 ; Hypertension 401.9 and Constipation due to opioid therapy 564.09 [facility] [address] [id number] [address] [place] [id number] 17 May, 2015 [facility] [address] [id number] [address] [place] [phone] May, [facility] [address] [id number] [address] [place] [phone] Apr, [facility] [address] [id number] [address] [place] [id number] Apr, Unspecified essential hypert ension 401.9 [facility] [address] [id number] [address] [place] [address] Apr, [facility] [address] [id number] [address] [place] [id number] Apr, [facility] [address] [id number] [address] [place] [id number] Apr, [facility] [address] [id number] [address] [place] [phone] Apr, [facility] [address] [id number] [address] [place] [id number] Apr, [facility] [address] [id number] [address] [place] [id number] Apr, [facility] [address] [id number] [address] [place] [id number] March, Unspecified essential hypert ension 401.9 [facility] [address] [id number] [address] [place] [id number] March, [facility] [address] [id number] [address] [place] [id number] March, [facility] [address] [id number] [address] [place] [address], [place] [id number] 14 Feb, 2015 [facility] [address] [id number] [address] [place] [address], [place] [id number] Feb, [facility] [address] [id number] [address] [place] [address], [place] [address] Jan, [facility] [address] [id number] [address] [place] [address], [place] [address] Jan, [facility] [address] [id number] [address] [place] [address], [place] [id number] Jan, [facility] [address] [id number] [address] [place] [address], [place] [address] Jan, [facility] [address] [id number] [address] [place] [address], [place] [id number] Jan, [facility] [address] [id number] [address] [place] [address], [place] [address] Jan, [facility] [address] [id number] [address] [place] [address], [place] [address] Jan, [facility] [address] [id number] [address] [place] [address], [place] [id number] 16 Dec, 2014 [facility] [address] [id number] [address] [place] [address], [place] [address] Dec, [facility] [address] [id number] [address] [place] [address], [place] [address] Dec, [facility] [address] [id number] [address] [place] [address], [place] [address] Nov, [facility] [address] [id number] [address] [place] [address], [place] [address] Nov, [facility] [address] [address] [id number] [address] [place] [address], [place] [address] Oct, [facility] [address] [id number] [address] [place] [id number] 16 Oct, 2014 [facility] [address] [id number] [address] [place] [address], [place] [address] Oct, [facility] [address] [id number] [address] [place] [address], [place] [address] Oct, [facility] [address] [id number] [address] [place] [address], [place] [address] Oct, [facility] [address] [id number] [address] [place] [address], [place] [address] Oct, [facility] [address] [id number] [address] [place] [address], [place] [address] Oct, [facility] [address] [id number] [address] [place] [address], [place] [address] Oct, [facility] [address] [id number] [address] [place] [address], [place] [address] Sep, [facility] [address] [id number] [address] [place] [address], [place] [address] Sep, [facility] [address] [id number] [address] [place] [address], [place] [address] Sep, [facility] [address] [id number] [address] [place] [address], [place] [address] Sep, [facility] [address] [id number] [address] [place] [address], [place] [address] Sep, [facility] [address] [id number] [address] [place] [address] Sep, [facility] [address] [id number] [address] [place] [address], [place] [address] Aug, [facility] [address] [id number] [address] [place] [address], [place] [address] Aug, [facility] [address] [id number] [address] [place] [address], [place] [address] Aug, [facility] [address] [id number] [address] [place] [address], [place] [address] Aug, [facility] [address] [id number] [address] [place] [address], [place] [address] Aug, [facility] [address] [id number] [address] [place] [address], [place] [address] Aug, [facility] [address] [id number] [address] [place] [address], [place] [address] Aug, [facility] [address] [id number] [address] [place] [address], [place] [address] Aug, [facility] [address] [id number] [address] [place] [address], [place] [address] Aug, [facility] [address] [id number] [address] [place] [address], [place] [address] Aug, [facility] [address] [id number] [address] [place] [address], [place] [address] Jul, [facility] [address] [id number] [address] [place] [address], [place] [address] Jul, [facility] [address] [id number] [address] [place] [address], [place] [address] Jul, [facility] [address] [id number] [address] [place] [address], [place] [address] Jul, [facility] [address] [id number] [address] [place] [address], [place] [address] Jul, [facility] [address] [id number] [address] [place] [address], [place] [address] Jul, [facility] [address] [id number] [address] [place] [address], [place] [address] Jun, [facility] [address] [id number] [address] [place] [address], [place] [address] Jun, [facility] [address] [id number] [address] [place] [address], [place] [address] Jun, [facility] [address] [id number] [facility] [place] [address] Jun, [facility] [address] [id number] [facility] [place] [address] Jun, [facility] [address] [id number] [facility] [place] [address] Jun, [facility] [address] [id number] [address] [place] [address], [place] [address] May, [facility] [address] [id number] [address] [place] [address], [place] [address] May, [facility] [address] [id number] [address] [place] [address], [place] [address] May, [facility] [address] [id number] [address] [place] [address], [place] [address] May, [facility] [address] [id number] [address] [place] [address], [place] [address] May, [facility] [address] [id number] [address] [place] [address], [place] [address] Apr, [facility] [address] [id number] [address] [place] [address], [place] [address] Apr, [facility] [address] [id number] [address] [place] [address], [place] [address] Apr, [facility] [address] [id number] [address] [place] [address], [place] [address] Apr, [facility] [address] [id number] [address] [place] [address], [place] [address] March, [facility] [address] [id number] [address] [place] [address], [place] [address] March, [facility] [address] [id number] [address] [place] [address], [place] [address] March, [facility] [address] [id number] [facility] [place] [address] March, [facility] [address] [id number] [address] [place] [address], [place] [address] March, [facility] [address] [id number] [address] [place] [address], [place] [address] March, [facility] [address] [id number] [address] [place] [address], [place] [address] Feb, [facility] [address] [id number] [address] [place] [address], [place] [address] Feb, [facility] [address] [id number] [address] [place] [address], [place] [address] Feb, [facility] [address] [id number] [address] [place] [address], [place] [address] Feb, [facility] [address] [id number] [address] [place] [address], [place] [address] Feb, [facility] [address] [id number] [address] [place] [address], [place] [address] Feb, [facility] [address] [id number] [address] [place] [address], [place] [address] Feb, [facility] [address] [id number] [address] [place] [address], [place] [address] Feb, [facility] [address] [id number] [address] [place] [address], [place] [address] Jan, [facility] [address] [id number] [address] [place] [address], [place] [address] Jan, [facility] [address] [id number] [address] [place] [address], [place] [address] Jan, [facility] [address] [id number] [address] [place] [address], [place] [address] Jan, [facility] [address] [id number] [address] [place] [address], [place] [address] Jan, [facility] [address] [id number] [address] [place] [address], [place] [address] Jan, [facility] [address] [id number] [address] [place] [address], [place] [address] Dec, [facility] [address] [id number] [address] [place] [address], [place] [address] Dec, [facility] [address] [id number] [address] [place] [address], [place] [address] Nov, [facility] [address] [id number] [address] [place] [address], [place] [address] Nov, [facility] [address] [id number] [address] [place] [address], [place] [address] Nov, [facility] [address] [id number] [address] [place] [address], [place] [address] Nov, [facility] [address] [id number] [address] [place] [address], [place] [address] Nov, [facility] [address] [id number] [address] [place] [address], [place] [address] Nov, [facility] [address] [id number] [address] [place] [address], [place] [address] Nov, [facility] [address] [id number] [address] [place] [address], [place] [address] Nov, [facility] [address] [id number] [address] [place] [address], [place] [address] Nov, [facility] [address] [id number] [address] [place] [address], [place] [address] Nov, [facility] [address] [id number] [address] [place] [address], [place] [address] Nov, [facility] [address] [id number] [address] [place] [address], [place] [address] Nov, [facility] [address] [id number] [address] [place] [address] Nov, [facility] [address] [id number] [address] [place] [address] Nov, [facility] [address] [id number] [address] [place] [address] Nov, [facility] [address] [id number] [address] [place] [address] Oct, [facility] [address] [id number] [address] [place] [address] Oct, [facility] [address] [id number] [address] [place] [address] Oct, [facility] [address] [id number] [address] [place] [address] Oct, [facility] [address] [id number] [address] [place] [address] Oct, [facility] [address] [id number] [address] [place] [address] Oct, [facility] [address] [id number] [address] [place] [address] Oct, [facility] [address] [id number] [address] [place] [address] Oct, [facility] [address] [id number] [address] [place] [address] Oct, [facility] [address] [id number] [address] [place] [address] Aug, [facility] [address] [id number] [address] [place] [address] Aug, IMMUNIZATIONS No Known Immunizations SOCIAL HISTORY [...] by Dr. Troy Michelle pain specialist in [place], [place] Medical History Chronic low back pain [...]
--- OUTSIDE RECORDS SUMMARY | 2020-06-19 02:11 | XMS REPORT ---
Author Author Mahsa Walker Organization [facility] Address [address] [place] [address] Care Team Providers [employer] Laminator Name Role Phone LISETH Walker Unavailable PROBLEMS Type Condition ICD9-CM Code [id number] Code Onset Dates Condition S tatus SNOMED Code Problem Other constipation K59.09 Active 1 [id number] Problem Primary insomnia F51.01 Active 193 698919 Problem Chronic pain syndrome G89.4 Active 349090918 Problem Essential hypertension I10 Active 59464067 Problem Anxiety F41.9 Active 74395113 Problem Major depressive disorder, recurrent episode, un specified severity F33.9 Active 19150738 Problem Atherosclerosis of [place] co ronary artery of [place] heart without angina pectoris I25.10 Active [id number] Problem Bilateral low back pain, with sciatica presence unspecifie d M54.5 Active 058652531 Problem Allergic rhinitis J30.9 Active 61 946054 Problem Fibromyalgia M79.7 Active 9499186 7 Problem Degenerative disc disease, thoracic M51.34 Active 36786581 Problem B12 deficiency E53.8 Active 25557 4004 Problem Degenerative disc disease, cervical M50.30 Active 67098866 Problem Hyperlipidemia, unspecified hyperlipidemia E78.5 Active 62918525 Problem GERD (gastroesophageal reflux disease) K21.9 Active 278766054 Problem Chronic obstructive pulmonary disease, unspecified COPD ty pe J44.9 Active 30392713 Problem CKD (chronic kidney disease) stage 3, GFR 30-59 ml/min N18.3 Active 216857728 Problem Cannabis abuse F12.10 Active 61818 009 ALLERGIES No Information ENCOUNTERS Encounter Location Date Diagnosis [facility] [address] [facility] [id number] [address] [place] [phone] Apr, B12 deficiency E53.8 [facility] [address] [facility] [id number] [address] [place] [phone] Jan, Periumbilical hernia K42.9 ; CKD (chronic kidney disease) stage 3, GFR 30-59 ml/min N18.3 ; Essential hypertension I10 ; GERD (gastroesophageal reflux disease) K21.9 ; Hyperlipidemia, unspecified hyperlipidemia E78.5 and Major depressive disorder, recurrent episode, unspecified severity F33.9 [place] [address] [facility] [id number] [address] [place] [phone] Dec, Anxiety F41.9 [place] [address] [id number] [address] [place] [phone] Nov, Elevated platelet count R79. 89 [place] [address] [id number] [address] [place] [phone] Nov, [place] [address] [place] [id number] [address] [place] [phone] Nov, Elevated platelet count R79. 89 [place] [address] [place] [id number] [address] [place] [phone] Nov, Anxiety F41.9 [place] [address] [facility] [id number] [address] [place] [phone] Nov, Bilateral low back pain, wit h sciatica presence unspecified M54.5 ; Cervicalgia M54.2 ; Degenerative disc disease, cervical M50.30 and Degenerative disc disease, thoracic M51.34 [place] [address] [place] [id number] [address] [place] [phone] Nov, Chronic pain syndrome G89.4 and Bilateral low back pain, with sciatica presence unspecified M54.5 [place] [address] [place] [id number] [address] [place] [phone] Oct, Umbilical hernia without obs truction and without gangrene K42.9 [place] [address] [facility] [id number] [address] [place] [phone] Oct, Chronic pain syndrome G89.4 [place] [address] [place] [id number] [address] [place] [phone] Oct, Chronic pain syndrome G89.4 and Anxiety F41.9 [place] [address] [address] 12 Oct, 2018 Elevated platelet count R79. 89 [place] [address] [place] [id number] [address] [place] [phone] Oct, CKD (chronic kidney disease) stage 3, GFR 30-59 ml/min N18.3 ; Other chest pain R07.89 ; Acute midline thoracic back pain M54.6 ; Essential hypertension I10 and History of osteoporosis Z87.39 [place] [address] [place] [id number] [address] [place] [id number] 29 Sep, 2018 Chronic pain syndrome G89.4 [place] [address] [place] [id number] [place] [phone] 16 Sep, 2018 [place] [address] [address] Sep, Anxiety F41.9 and Chronic pa in syndrome G89.4 [place] [address] [place] [id number] [address] [place] [id number] 18 Aug, 2018 Chronic pain syndrome G89.4 and Anxiety F41.9 [place] [address] [place] [id number] [place] [phone] Aug, [place] [address] [address] Aug, Cannabis abuse F12.10 and Co ntrolled substance agreement terminated Z91.14 [place] [address] [place] [id number] [address] [place] [phone] Jul, Chronic pain syndrome G89.4 ; Bilateral low back pain, with sciatica presence unspecified M54.5 ; Chronic prescription opiate use Z79.899 ; Essential hypertension I10 ; Hyperlipidemia, unspecified hyperlipidemia E78.5 ; CKD (chronic kidney disease) stage 3, GFR 30-59 ml/min N18.3 and Allergic rhinitis J30.9 [place] [address] [place] [id number] [address] [place] [phone] Jul, Chronic pain syndrome G89.4 and Anxiety F41.9 [place] [address] [place] [id number] [address] [place] [phone] Jul, Screening for breast cancer Z12.31 and Major depressive disorder, recurrent episode, unspecified severity F33.9 [place] [address] [place] [id number] [address] [place] [phone] Jun, Chronic pain syndrome G89.4 and Anxiety F41.9 [place] [address] [place] [id number] [address] [place] [phone] May, Chronic pain syndrome G89.4 and Anxiety F41.9 [place] [address] [place] [id number] [address] [place] [phone] Apr, Anxiety F41.9 [place] [address] [address] Apr, Chronic prescription opiate use Z79.899 ; Chronic pain syndrome G89.4 ; Essential hypertension I10 ; Allergic rhinitis J30.9 and CKD (chronic kidney disease) stage 3, GFR 30-59 ml/min N18.3 [place] [address] [place] [id number] [address] [place] [phone] Apr, [place] [address] [address] March, Anxiety F41.9 and Chronic pa in syndrome G89.4 [place] [address] [facility] [id number] [address] [place] [phone] March, CKD (chronic kidney disease) stage 3, GFR 30-59 ml/min N18.3 ; B12 deficiency E53.8 and Hyperlipidemia, unspecified hyperlipidemia E78.5 [place] [address] [place] [id number] [address] [place] [phone] March, Anxiety F41.9 and Chronic pa in syndrome G89.4 [place] [address] [address] Feb, Anxiety F41.9 and Chronic pa in syndrome G89.4 [place] [address] [address] Jan, B12 deficiency E53.8 [place] [address] [address] Jan, [place] [address] [address] Jan, Anxiety F41.9 ; Chronic pain syndrome G89.4 and Essential hypertension I10 [place] [address] [address] Jan, CKD (chronic kidney disease) stage 3, [...] Subacromial bursitis of right shoulder joint M75.51 [place] [address] [address] Dec, Essential hypertension I10 [place] [address] [address] 15 Dec, 2017 Chronic pain syndrome G89.4 [place] [address] [address] Dec, Chronic pain syndrome G89.4 [place] [address] [address] Nov, [place] [address] [address] Nov, Chronic pain syndrome G89.4 and Anxiety F41.9 [facility] [address] [place] [id number] [address] [place] [phone] Oct, Chronic pain syndrome G89.4 ; Other constipation K59.09 and Chronic prescription opiate use Z79.899 [facility] [address] [facility] [id number] [address] [place] [phone] Oct, Chronic pain syndrome G89.4 and Anxiety F41.9 [place] [address] [place] [id number] [address] [place] [phone] Sep, Essential hypertension I10 [place] [address] [place] [id number] [place] [address] Sep, Chronic pain syndrome G89.4 and Anxiety F41.9 [place] [address] [place] [id number] [address] [place] [phone] Aug, Chronic pain syndrome G89.4 and Anxiety F41.9 [place] [address] [place] [id number] [address] [place] [phone] Jul, Essential hypertension I10 [place] [address] [place] [id number] [address] [place] [phone] 22 Jul, 2017 Chronic obstructive pulmonar y disease, unspecified COPD type J44.9 [place] [address] [place] [id number] [address] [place] [phone] Jul, Chronic pain syndrome G89.4 and Anxiety F41.9 [place] [address] [place] [id number] [address] [place] [id number] 13 Jul, 2017 Chronic pain syndrome G89.4 ; Essential hypertension I10 ; Fibromyalgia M79.7 ; CKD (chronic kidney disease) stage 3, GFR 30-59 ml/min N18.3 ; Subacromial bursitis, right M75.51 and Goals of care, co unseling/discussion Z71.89 [place] [address] [place] [id number] [address] [place] [phone] Jun, Chronic pain syndrome G89.4 and Anxiety F41.9 [facility] [address] [id number] [address] [place] [phone] May, Chronic pain syndrome G89.4 and Anxiety F41.9 [facility] [address] [id number] [address] [place] [phone] Apr, Chronic pain syndrome G89.4 and Anxiety F41.9 [facility] [address] [facility] [id number] [address] [place] [phone] Apr, Drug induced constipation K5 9.03 ; Chronic pain syndrome G89.4 and CKD (chronic kidney disease) stage 3, GFR 30-59 ml/min N18.3 [facility] [address] [id number] [address] [place] [phone] 02 Apr, 2017 Chronic pain syndrome G89.4 and Anxiety F41.9 [facility] [address] [facility] [id number] [address] [place] [phone] March, Chronic pain syndrome G89.4 and Anxiety F41.9 [facility] [address] [id number] [address] [place] [phone] March, Decreased GFR R94.4 [facility] [address] [facility] [id number] [address] [place] [phone] Feb, [facility] [address] [facility] [id number] [address] [place] [phone] Feb, Chronic pain syndrome G89.4 and Anxiety F41.9 [facility] [address] [facility] [id number] [address] [place] [phone] Jan, Decreased GFR R94.4 [facility] [address] [facility] [id number] [address] [place] [phone] Jan, Decreased GFR R94.4 [facility] [address] [facility] [id number] [address] [place] [phone] Jan, Allergic rhinitis J30.9 ; Es sential hypertension I10 ; Major depressive disorder, recurrent episode, unspecified severity F33.9 and Primary insomnia F51.01 [place] [address] [address] Jan, Acute right-sided thoracic b ack pain M54.6 ; Subacromial bursitis of right shoulder joint M75.51 ; Chronic pain syndrome G89.4 and Anxiety F41.9 [place] [address] [address] Jan, Decreased GFR R94.4 [place] [address] [address] Dec, Decreased GFR R94.4 [place] [address] [address] Dec, Decreased GFR R94.4 [place] [address] [address] Dec, Decreased GFR R94.4 [place] [address] [address] Dec, Decreased GFR R94.4 [place] [address] [address] Dec, Anxiety F41.9 and Bilateral low back pain, with sciatica presence unspecified M54.5 [place] [address] [address] Dec, Thrombocytosis D47.3 ; Hyper lipidemia, unspecified hyperlipidemia E78.5 ; Need for hepatitis C screening test Z11.59 and B12 deficiency E53.8 [place] [address] [address] Nov, Need for hepatitis C screeni ng test Z11.59 [place] [address] [address] Nov, Anxiety F41.9 and Bilateral low back pain, with sciatica presence unspecified M54.5 [place] [address] [address] Oct, Bilateral low back pain, wit h sciatica presence unspecified M54.5 ; Chronic prescription opiate use Z79.899 ; Anxiety F41.9 ; Essential hypertension I10 ; Hyperlipidemia, unspecified hyperlipidemia E78.5 ; Health care maintenance Z00.00 and Thrombocytosis D47.3 [place] [address] [address] Sep, [facility] [address] [address] Sep, [place] [address] [address] Aug, [place] [address] [address] Jul, B12 deficiency E53.[address] [address] Jul, [place] [address] [address] Jul, Essential hypertension I10 ; Chronic pain syndrome G89.4 ; Anxiety F41.9 ; Screening for breast cancer Z12.39 ; Atherosclerosis of [place] coronary artery of [place] heart without angina pectoris I25.10 ; Major depressive disorder, recurrent episode, unspecified severity F33.9 ; Primary insomnia F51.01 and Allergic rhinitis J30.9 [place] [id number] [place] [phone] Jun, [facility] [address] [address] Jun, Leg wound, right, initial en counter S81.801A and Encounter for immunization Z23 [place] [id number] [address] [place] [phone] Jun, Open wound of right ear, uns pecified open wound type, initial encounter S01.301A [place] [address] [address] May, B12 deficiency E53.8 [facility] [address] [address] May, [facility] [address] [address] May, [facility] [address] [address] May, Chronic pain syndrome G89.4 ; Chronic prescription opiate use Z79.899 ; Allergic rhinitis J30.9 ; Essential hypertension I10 and Non-healing skin lesion L98.9 [place] [address] [address] Apr, [place] [address] [address] March, [facility] [address] [address] Feb, [facility] [address] [address] Feb, [place] [address] [address] Feb, Chronic pain syndrome G89.4 ; Anxiety F41.9 ; B12 deficiency E53.8 ; Allergic rhinitis J30.9 ; Fibromyalgia M79.7 ; Actinic keratosis L57.0 ; Skin rash R21 ; Open wound of right ear, unspecified open wound type, initial encounter S01.301A ; Subacromial bursitis, right M75.51 ; GERD (gastroesophageal reflux disease) K21.9 and Chronic obstructive pulmonary disease, unspecified COPD type J44.9 [facility] [address] [address] Jan, [facility] [address] [address] Jan, Essential hypertension I10 [facility] [address] [facility] [id number] [address] [place] [phone] Jan, [facility] [address] [facility] [id number] [address] [place] [phone] Jan, [facility] [address] [facility] [id number] [address] [place] [phone] Jan, [facility] [address] [facility] [id number] [address] [place] [phone] Dec, [facility] [address] [facility] [id number] [address] [place] [phone] Dec, Essential hypertension I10 [facility] [address] [facility] [id number] [address] [place] [phone] Dec, [facility] [address] [facility] [id number] [address] [place] [phone] Dec, B12 deficiency E53.8 and Ess ential hypertension I10 [facility] [address] [facility] [id number] [address] [place] [phone] Dec, [facility] [address] [facility] [id number] [address] [place] [phone] Nov, Right shoulder pain M25.511 [facility] [address] [place] [address] Nov, Right shoulder pain M25.511 [facility] [address] [facility] [id number] [address] [place] [phone] Nov, Essential hypertension I10 a nd B12 deficiency E53.8 [facility] [address] [facility] [id number] [address] [place] [phone] 14 Nov, 2015 Major depressive disorder, r ecurrent episode, unspecified severity F33.9 ; Anxiety F41.9 ; Chronic pain syndrome G89.4 ; Essential hypertension I10 ; Hyperlipidemia, unspecified hyperlipidemia E78.5 ; Chronic prescription opiate use Z79.899 ; Allergic rhinitis J30.9 ; B12 deficiency E53.8 and Right shoulder pain M25.511 [facility] [address] [id number] [address] [place] [phone] Oct, [facility] [address] [id number] [address] [place] [phone] Oct, [facility] [address] [facility] [id number] [address] [place] [phone] Sep, [facility] [address] [id number] [address] [place] [phone] Sep, [facility] [address] [facility] [id number] [address] [place] [phone] Aug, [facility] [address] [id number] [address] [place] [phone] Aug, [facility] [address] [place] [id number] [address] [place] [phone] Aug, [facility] [address] [facility] [id number] [address] [place] [address] Aug, Other constipation K59.09 ; Hyperlipidemia, unspecified hyperlipidemia E78.5 ; Essential hypertension I10 ; Primary insomnia F51.01 ; Anxiety F41.9 ; Chronic pain syndrome G89.4 ; Right shoulder pain M25.511 and Acute cystitis without hematuria N30.00 [facility] [address] [facility] [id number] [address] [place] [phone] Jul, [facility] [address] [id number] [address] [place] [phone] Jul, [facility] [address] [facility] [id number] [address] [place] [phone] Jun, [facility] [address] [facility] [id number] [address] [place] [phone] Jun, [facility] [address] [facility] [id number] [address] [place] [phone] Jun, [facility] [address] [facility] [id number] [address] [place] [phone] May, [facility] [address] [id number] [address] [place] [phone] May, Other chronic pain 338.29 ; Hypertension 401.9 and Constipation due to opioid therapy 564.09 [facility] [address] [id number] [address] [place] [phone] 17 May, 2015 [facility] [address] [id number] [address] [place] [phone] May, [facility] [address] [id number] [address] [place] [phone] Apr, [facility] [address] [id number] [address] [place] [phone] Apr, Unspecified essential hypert ension 401.9 [facility] [address] [id number] [address] [place] [phone] Apr, [facility] [address] [id number] [address] [place] [phone] Apr, [facility] [address] [id number] [address] [place] [phone] Apr, [facility] [address] [id number] [address] [place] [phone] Apr, [facility] [address] [id number] [address] [place] [phone] Apr, [facility] [address] [id number] [address] [place] [phone] Apr, [facility] [address] [id number] [address] [place] [phone] March, Unspecified essential hypert ension 401.9 [facility] [address] [id number] [address] [place] [phone] March, [facility] [address] [facility] [id number] [address] [place] [phone] March, [facility] [address] [id number] [address] [place] [address], [place] [phone] 14 Feb, 2015 [facility] [address] [id number] [address] [place] [address], [place] [address] Feb, [facility] [address] [id number] [address] [place] [address], [place] [address] Jan, [facility] [address] [id number] [address] [place] [address], [place] [phone] Jan, [facility] [address] [id number] [address] [place] [address], [place] [id number] Jan, [facility] [address] [id number] [address] [place] [address], [place] [address] Jan, [facility] [address] [id number] [address] [place] [address], [place] [phone] Jan, [facility] [address] [id number] [address] [place] [address], [place] [address] Jan, [facility] [address] [id number] [address] [place] [address], [place] [address] Jan, [facility] [address] [id number] [address] [place] [address], [place] [address] 16 Dec, 2014 [facility] [address] [id number] [address] [place] [address], [place] [address] Dec, [facility] [address] [id number] [address] [place] [address], [place] [address] Dec, [facility] [address] [id number] [address] [place] [address], [place] [address] Nov, [facility] [address] [id number] [address] [place] [address], [place] [address] Nov, [facility] [address] [id number] [address] [place] [address], [place] [address] Oct, [facility] [address] [id number] [address] [place] [address], [place] [address] 16 Oct, 2014 [facility] [address] [id number] [address] [place] [address], [place] [address] Oct, [facility] [address] [id number] [address] [place] [address], [place] [address] Oct, [facility] [address] [id number] [address] [place] [address], [place] [address] Oct, [facility] [address] [id number] [address] [place] [address], [place] [address] Oct, [facility] [address] [id number] [address] [place] [address], [place] [address] Oct, [facility] [address] [id number] [address] [place] [address], [place] [address] Oct, [facility] [address] [id number] [address] [place] [address], [place] [address] Sep, [facility] [address] [id number] [address] [place] [address], [place] [address] Sep, [facility] [address] [id number] [address] [place] [address], [place] [address] Sep, [facility] [address] [id number] [address] [place] [address], [place] [address] Sep, [facility] [address] [id number] [address] [place] [address], [place] [address] Sep, [facility] [address] [id number] [address] [place] [address], [place] [address] Sep, [facility] [address] [id number] [address] [place] [address], [place] [address] Aug, [facility] [address] [id number] [address] [place] [address], [place] [address] Aug, [facility] [address] [id number] [address] [place] [address], [place] [address] Aug, [facility] [address] [id number] [address] [place] [address], [place] [address] Aug, [facility] [address] [id number] [address] [place] [address], [place] [address] Aug, [facility] [address] [id number] [address] [place] [address], [place] [address] Aug, [facility] [address] [id number] [address] [place] [address], [place] [address] Aug, [facility] [address] [id number] [address] [place] [address], [place] [address] Aug, [facility] [address] [id number] [address] [place] [address], [place] [address] Aug, [facility] [address] [id number] [address] [place] [address], [place] [address] Aug, [facility] [address] [id number] [address] [place] [address], [place] [address] Jul, [facility] [address] [id number] [address] [place] [address], [place] [address] Jul, [facility] [address] [id number] [address] [place] [address], [place] [address] Jul, [facility] [address] [id number] [address] [place] [address], [place] [address] Jul, [facility] [address] [id number] [address] [place] [address], [place] [address] Jul, [facility] [address] [id number] [address] [place] [address], [place] [address] Jul, [facility] [address] [id number] [address] [place] [address], [place] [address] Jun, [facility] [address] [id number] [address] [place] [address], [place] [address] Jun, [facility] [address] [id number] [address] [place] [address], [place] [address] Jun, [facility] [address] [id number] [facility] [place] [address] Jun, [facility] [address] [id number] [address] [place] [address], [place] [address] Jun, [facility] [address] [id number] [address] [place] [address], [place] [address] Jun, [facility] [address] [id number] [address] [place] [address], [place] [address] May, [facility] [address] [id number] [address] [place] [address], [place] [address] May, [facility] [address] [id number] [address] [place] [address], [place] [address] May, [facility] [address] [id number] [address] [place] [address], [place] [address] May, [facility] [address] [id number] [address] [place] [address], [place] [address] May, [facility] [address] [id number] [address] [place] [address], [place] [address] Apr, [facility] [address] [id number] [address] [place] [address], [place] [address] Apr, [facility] [address] [id number] [address] [place] [address], [place] [address] Apr, [facility] [address] [id number] [address] [place] [address], [place] [address] Apr, [facility] [address] [id number] [address] [place] [address], [place] [address] March, [facility] [address] [id number] [address] [place] [address], [place] [address] March, [facility] [address] [id number] [address] [place] [address], [place] [address] March, [facility] [address] [id number] [facility] [place] [address] March, [facility] [address] [id number] [address] [place] [address], [place] [address] March, [facility] [address] [id number] [address] [place] [address], [place] [address] March, [facility] [address] [id number] [address] [place] [address], [place] [address] Feb, [facility] [address] [id number] [address] [place] [address], [place] [address] Feb, [facility] [address] [id number] [address] [place] [address], [place] [address] Feb, [facility] [address] [id number] [address] [place] [address], [place] [address] Feb, [facility] [address] [id number] [address] [place] [address], [place] [address] Feb, [facility] [address] [id number] [address] [place] [address], [place] [address] Feb, [facility] [address] [id number] [address] [place] [address], [place] [address] Feb, [facility] [address] [id number] [address] [place] [address], [place] [address] Feb, [facility] [address] [id number] [address] [place] [address], [place] [address] Jan, [facility] [address] [id number] [address] [place] [address], [place] [address] Jan, [facility] [address] [id number] [address] [place] [address], [place] [address] Jan, [facility] [address] [id number] [address] [place] [address], [place] [address] Jan, [facility] [address] [id number] [address] [place] [address], [place] [address] Jan, [facility] [address] [id number] [address] [place] [address], [place] [address] Jan, [facility] [address] [id number] [address] [place] [address], [place] [address] Dec, [facility] [address] [id number] [address] [place] [address], [place] [address] Dec, [facility] [address] [id number] [address] [place] [address], [place] [address] Nov, [facility] [address] [id number] [address] [place] [address], [place] [address] Nov, [facility] [address] [id number] [address] [place] [address], [place] [address] Nov, [facility] [address] [id number] [address] [place] [address], [place] [address] Nov, [facility] [address] [id number] [address] [place] [address], [place] [address] Nov, [facility] [address] [id number] [address] [place] [address], [place] [address] Nov, [facility] [address] [id number] [address] [place] [address], [place] [address] Nov, [facility] [address] [id number] [address] [place] [address], [place] [address] Nov, [facility] [address] [id number] [address] [place] [address], [place] [address] Nov, [facility] [address] [id number] [address] [place] [address], [place] [address] Nov, [facility] [address] [id number] [address] [place] [address], [place] [address] Nov, [facility] [address] [id number] [address] [place] [address], [place] [address] Nov, [facility] [address] [id number] [address] [place] [address] Nov, [facility] [address] [id number] [address] [place] [address] Nov, [facility] [address] [id number] [address] [place] [phone] Nov, [facility] [address] [id number] [address] [place] [phone] Oct, [facility] [address] [id number] [address] [place] [address] Oct, [facility] [address] [id number] [address] [place] [phone] Oct, [facility] [address] [id number] [address] [place] [phone] Oct, [facility] [address] [id number] [address] [place] [phone] Oct, [facility] [address] [id number] [address] [place] [phone] Oct, [facility] [address] [id number] [address] [place] [id number] Oct, [facility] [address] [id number] [address] [place] [phone] Oct, [facility] [address] [id number] [address] [place] [phone] Oct, [facility] [address] [id number] [address] [place] [phone] Aug, [facility] [address] [id number] [address] [place] [phone] Aug, IMMUNIZATIONS No Known Immunizations SOCIAL HISTORY Never Assessed REASON FOR VISIT PLAN OF CARE VITAL SIGNS Height 69 in 2014-06-19 Weight 217 lbs 2014-06-19 Heart Rate 88 bpm 2014-06-19 Blood pressure systolic 150 mmHg 2014-06-19 Blood pressure diastolic 82 mmHg 2014-06-19 MEDICATIONS Unknown Medications RESULTS No Results PROCEDURES No Known procedures INSTRUCTIONS MEDICATIONS ADMINISTERED No Known Medications MEDICAL (GENERAL) HISTORY Type Description Date Medical History hypertension Medical History asthma Medical History Arthritis Medical History Hypoglycemia Medical History Heart Cath 11/05/2013 Medical History herniated disc--Seen by Dr. Troy Michelle pain specialist in [place], [place] Medical History Chronic low back pain [...]
--- OUTSIDE RECORDS SUMMARY | 2020-06-19 02:11 | XMS REPORT ---
Author Author Mahsa Walker Organization [facility] [place] Address [address] [place] [address] Care Team Providers Care Talent Manager Name Role Phone LISETH Walker Unavailable PROBLEMS Type Condition ICD9-CM Code [id number] Code Onset Dates Condition S tatus SNOMED Code Problem Other constipation K59.09 Active 1 [id number] Problem Primary insomnia F51.01 Active 193 996171 Problem Chronic pain syndrome G89.4 Active 295185780 Problem Essential hypertension I10 Active 92040141 Problem Anxiety F41.9 Active 45595136 Problem Major depressive disorder, recurrent episode, un specified severity F33.9 Active 38679324 Problem Atherosclerosis of [place] co ronary artery of [place] heart without angina pectoris I25.10 Active [id number] Problem Bilateral low back pain, with sciatica presence unspecifie d M54.5 Active 054064237 Problem Allergic rhinitis J30.9 Active 61 914365 Problem Fibromyalgia M79.7 Active 9395379 7 Problem Degenerative disc disease, thoracic M51.34 Active 70427095 Problem B12 deficiency E53.8 Active 68744 4004 Problem Degenerative disc disease, cervical M50.30 Active 07926958 Problem Hyperlipidemia, unspecified hyperlipidemia E78.5 Active 78811430 Problem GERD (gastroesophageal reflux disease) K21.9 Active 206617101 Problem Chronic obstructive pulmonary disease, unspecified COPD ty pe J44.9 Active 16081424 Problem CKD (chronic kidney disease) stage 3, GFR 30-59 ml/min N18.3 Active 899683705 Problem Cannabis abuse F12.10 Active 62804 009 ALLERGIES No Information ENCOUNTERS Encounter Location Date Diagnosis [facility] [place] [address] [facility] [place] [facility] [id number] [address] [place] [address] Apr, B12 deficiency E53.8 [facility] [place] [address] [facility] [place] [id number] [address] [place] [address] Jan, Periumbilical hernia K42.9 ; CKD (chronic kidney disease) stage 3, GFR 30-59 ml/min N18.3 ; Essential hypertension I10 ; GERD (gastroesophageal reflux disease) K21.9 ; Hyperlipidemia, unspecified hyperlipidemia E78.5 and Major depressive disorder, recurrent episode, unspecified severity F33.9 [place] [address] [facility] [place] [id number] [address] [place] [address] Dec, Anxiety F41.9 [place] [address] [id number] [address] [place] [address] Nov, Elevated platelet count R79. 89 [place] [address] [id number] [address] [place] [address] Nov, [place] [address] [place] [id number] [address] [place] [address] Nov, Elevated platelet count R79. 89 [place] [address] [place] [id number] [address] [place] [address] Nov, Anxiety F41.9 [place] [address] [facility] [place] [id number] [address] [place] [address] Nov, Bilateral low back pain, wit h sciatica presence unspecified M54.5 ; Cervicalgia M54.2 ; Degenerative disc disease, cervical M50.30 and Degenerative disc disease, thoracic M51.34 [place] [address] [place] [id number] [address] [place] [address] Nov, Chronic pain syndrome G89.4 and Bilateral low back pain, with sciatica presence unspecified M54.5 [place] [address] [place] [id number] [address] [place] [address] Oct, Umbilical hernia without obs truction and without gangrene K42.9 [place] [address] [facility] [place] [id number] [address] [place] [address] Oct, Chronic pain syndrome G89.4 [place] [address] [place] [id number] [address] [place] [address] Oct, Chronic pain syndrome G89.4 and Anxiety F41.9 [place] [address] [address] 12 Oct, 2018 Elevated platelet count R79. 89 [place] [address] [place] [id number] [address] [place] [address] Oct, CKD (chronic kidney disease) stage 3, GFR 30-59 ml/min N18.3 ; Other chest pain R07.89 ; Acute midline thoracic back pain M54.6 ; Essential hypertension I10 and History of osteoporosis Z87.39 [place] [address] [place] [id number] [address] [place] [address] 29 Sep, 2018 Chronic pain syndrome G89.4 [place] [address] [place] [id number] [place] [address] 16 Sep, 2018 [place] [address] [address] Sep, Anxiety F41.9 and Chronic pa in syndrome G89.4 [place] [address] [place] [id number] [address] [place] [phone] 18 Aug, 2018 Chronic pain syndrome G89.4 and Anxiety F41.9 [place] [address] [place] [id number] [place] [address] Aug, [place] [address] [address] Aug, Cannabis abuse F12.10 and Co ntrolled substance agreement terminated Z91.14 [place] [address] [place] [id number] [address] [place] [address] Jul, Chronic pain syndrome G89.4 ; Bilateral low back pain, with sciatica presence unspecified M54.5 ; Chronic prescription opiate use Z79.899 ; Essential hypertension I10 ; Hyperlipidemia, unspecified hyperlipidemia E78.5 ; CKD (chronic kidney disease) stage 3, GFR 30-59 ml/min N18.3 and Allergic rhinitis J30.9 [place] [address] [place] [id number] [address] [place] [address] Jul, Chronic pain syndrome G89.4 and Anxiety F41.9 [place] [address] [place] [id number] [address] [place] [address] Jul, Screening for breast cancer Z12.31 and Major depressive disorder, recurrent episode, unspecified severity F33.9 [place] [address] [place] [id number] [address] [place] [address] Jun, Chronic pain syndrome G89.4 and Anxiety F41.9 [place] [address] [place] [id number] [address] [place] [address] May, Chronic pain syndrome G89.4 and Anxiety F41.9 [place] [address] [place] [id number] [address] [place] [address] Apr, Anxiety F41.9 [place] [address] [address] Apr, Chronic prescription opiate use Z79.899 ; Chronic pain syndrome G89.4 ; Essential hypertension I10 ; Allergic rhinitis J30.9 and CKD (chronic kidney disease) stage 3, GFR 30-59 ml/min N18.3 [place] [address] [place] [id number] [address] [place] [address] Apr, [place] [address] [address] March, Anxiety F41.9 and Chronic pa in syndrome G89.4 [place] [address] [facility] [place] [id number] [address] [place] [address] March, CKD (chronic kidney disease) stage 3, GFR 30-59 ml/min N18.3 ; B12 deficiency E53.8 and Hyperlipidemia, unspecified hyperlipidemia E78.5 [place] [address] [place] [id number] [address] [place] [address] March, Anxiety F41.9 and Chronic pa in syndrome G89.4 [place] [address] [address] Feb, Anxiety F41.9 and Chronic pa in syndrome G89.4 [place] [address] [address] Jan, B12 deficiency E53.8 [place] [address] [address] Jan, [place] [address] [address] Jan, Anxiety F41.9 ; Chronic pain syndrome G89.4 and Essential hypertension I10 [place] [address] [address] Jan, CKD (chronic kidney disease) stage 3, [...] of right shoulder joint M75.51 [place] [address] [address] Dec, Essential hypertension I10 [place] [address] [address] 15 Dec, 2017 Chronic pain syndrome G89.4 [place] [address] [address] Dec, Chronic pain syndrome G89.4 [place] [address] [address] Nov, [place] [address] [address] Nov, Chronic pain syndrome G89.4 and Anxiety F41.9 [facility] [place] [address] [place] [id number] [address] [place] [address] Oct, Chronic pain syndrome G89.4 ; Other constipation K59.09 and Chronic prescription opiate use Z79.899 [facility] [place] [address] [facility] [place] [id number] [address] [place] [address] Oct, Chronic pain syndrome G89.4 and Anxiety F41.9 [place] [address] [place] [id number] [address] [place] [address] Sep, Essential hypertension I10 [place] [address] [place] [id number] [place] [address] Sep, Chronic pain syndrome G89.4 and Anxiety F41.9 [place] [address] [place] [id number] [address] [place] [address] Aug, Chronic pain syndrome G89.4 and Anxiety F41.9 [place] [address] [place] [id number] [address] [place] [address] Jul, Essential hypertension I10 [place] [address] [place] [id number] [address] [place] [address] 22 Jul, 2017 Chronic obstructive pulmonar y disease, unspecified COPD type J44.9 [place] [address] [place] [id number] [address] [place] [address] Jul, Chronic pain syndrome G89.4 and Anxiety F41.9 [place] [address] [place] [id number] [address] [place] [address] 13 Jul, 2017 Chronic pain syndrome G89.4 ; Essential hypertension I10 ; Fibromyalgia M79.7 ; CKD (chronic kidney disease) stage 3, GFR 30-59 ml/min N18.3 ; Subacromial bursitis, right M75.51 and Goals of care, co unseling/discussion Z71.89 [place] [address] [place] [id number] [address] [place] [address] Jun, Chronic pain syndrome G89.4 and Anxiety F41.9 [facility] [place] [address] [id number] [address] [place] [address] May, Chronic pain syndrome G89.4 and Anxiety F41.9 [facility] [place] [address] [id number] [address] [place] [address] Apr, Chronic pain syndrome G89.4 and Anxiety F41.9 [facility] [place] [address] [facility] [place] [id number] [address] [place] [address] Apr, Drug induced constipation K5 9.03 ; Chronic pain syndrome G89.4 and CKD (chronic kidney disease) stage 3, GFR 30-59 ml/min N18.3 [facility] [place] [address] [id number] [address] [place] [address] 02 Apr, 2017 Chronic pain syndrome G89.4 and Anxiety F41.9 [facility] [place] [address] [facility] [place] [id number] [address] [place] [address] March, Chronic pain syndrome G89.4 and Anxiety F41.9 [facility] [place] [address] [id number] [address] [place] [address] March, Decreased GFR R94.4 [facility] [place] [address] [facility] [place] [id number] [address] [place] [address] Feb, [facility] [place] [address] [facility] [place] [id number] [address] [place] [address] Feb, Chronic pain syndrome G89.4 and Anxiety F41.9 [facility] [place] [address] [facility] [place] [id number] [address] [place] [address] Jan, Decreased GFR R94.4 [facility] [place] [address] [facility] [place] [id number] [address] [place] [address] Jan, Decreased GFR R94.4 [facility] [place] [address] [facility] [place] [id number] [address] [place] [address] Jan, Allergic rhinitis J30.9 ; Es sential hypertension I10 ; Major depressive disorder, recurrent episode, unspecified severity F33.9 and Primary insomnia F51.01 [place] [address] [address] Jan, Acute right-sided thoracic b ack pain M54.6 ; Subacromial bursitis of right shoulder joint M75.51 ; Chronic pain syndrome G89.4 and Anxiety F41.9 [place] [address] [address] Jan, Decreased GFR R94.4 [place] [address] [address] Dec, Decreased GFR R94.4 [place] [address] [address] Dec, Decreased GFR R94.4 [place] [address] [address] Dec, Decreased GFR R94.4 [place] [address] [address] Dec, Decreased GFR R94.4 [place] [address] [address] Dec, Anxiety F41.9 and Bilateral low back pain, with sciatica presence unspecified M54.5 [place] [address] [address] Dec, Thrombocytosis D47.3 ; Hyper lipidemia, unspecified hyperlipidemia E78.5 ; Need for hepatitis C screening test Z11.59 and B12 deficiency E53.8 [place] [address] [address] Nov, Need for hepatitis C screeni ng test Z11.59 [place] [address] [address] Nov, Anxiety F41.9 and Bilateral low back pain, with sciatica presence unspecified M54.5 [place] [address] [address] Oct, Bilateral low back pain, wit h sciatica presence unspecified M54.5 ; Chronic prescription opiate use Z79.899 ; Anxiety F41.9 ; Essential hypertension I10 ; Hyperlipidemia, unspecified hyperlipidemia E78.5 ; Health care maintenance Z00.00 and Thrombocytosis D47.3 [place] [address] [address] Sep, [facility] [place] [address] [address] Sep, [place] [address] [address] Aug, [place] [address] [address] Jul, B12 deficiency E53.[address] [address] Jul, [place] [address] [address] Jul, Essential hypertension I10 ; Chronic pain syndrome G89.4 ; Anxiety F41.9 ; Screening for breast cancer Z12.39 ; Atherosclerosis of [place] coronary artery of [place] heart without angina pectoris I25.10 ; Major depressive disorder, recurrent episode, unspecified severity F33.9 ; Primary insomnia F51.01 and Allergic rhinitis J30.9 [place] [id number] [place] [address] Jun, [facility] [address] [address] Jun, Leg wound, right, initial en counter S81.801A and Encounter for immunization Z23 [place] [id number] [address] [place] [address] Jun, Open wound of right ear, uns pecified open wound type, initial encounter S01.301A [place] [address] [address] May, B12 deficiency E53.8 [facility] [place] [address] [address] May, [facility] [place] [address] [address] May, [facility] [place] [address] [address] May, Chronic pain syndrome G89.4 ; Chronic prescription opiate use Z79.899 ; Allergic rhinitis J30.9 ; Essential hypertension I10 and Non-healing skin lesion L98.9 [place] [address] [address] Apr, [place] [address] [address] March, [facility] [place] [address] [address] Feb, [facility] [place] [address] [address] Feb, [place] [address] [address] Feb, Chronic pain syndrome G89.4 ; Anxiety [...] [facility] [place] [address] [address] Jan, [facility] [place] [address] [address] Jan, Essential hypertension I10 [facility] [place] [address] [facility] [place] [id number] [address] [place] [address] Jan, [facility] [place] [address] [facility] [place] [id number] [address] [place] [address] Jan, [facility] [place] [address] [facility] [place] [id number] [address] [place] [address] Jan, [facility] [place] [address] [facility] [place] [id number] [address] [place] [address] Dec, [facility] [place] [address] [facility] [place] [id number] [address] [place] [address] Dec, Essential hypertension I10 [facility] [place] [address] [facility] [place] [id number] [address] [place] [address] Dec, [facility] [place] [address] [facility] [place] [id number] [address] [place] [address] Dec, B12 deficiency E53.8 and Ess ential hypertension I10 [facility] [place] [address] [facility] [place] [id number] [address] [place] [address] Dec, [facility] [place] [address] [facility] [place] [id number] [address] [place] [address] Nov, Right shoulder pain M25.511 [facility] [place] [address] [place] [address] Nov, Right shoulder pain M25.511 [facility] [place] [address] [facility] [place] [id number] [address] [place] [address] Nov, Essential hypertension I10 a nd B12 deficiency E53.8 [facility] [place] [address] [facility] [place] [id number] [address] [place] [address] 14 Nov, 2015 Major depressive disorder, r ecurrent episode, unspecified severity F33.9 ; Anxiety F41.9 ; Chronic pain syndrome G89.4 ; Essential hypertension I10 ; Hyperlipidemia, unspecified hyperlipidemia E78.5 ; Chronic prescription opiate use Z79.899 ; Allergic rhinitis J30.9 ; B12 deficiency E53.8 and Right shoulder pain M25.511 [facility] [place] [address] [id number] [address] [place] [address] Oct, [facility] [place] [address] [id number] [address] [place] [address] Oct, [facility] [place] [address] [facility] [place] [id number] [address] [place] [address] Sep, [facility] [place] [address] [id number] [address] [place] [address] Sep, [facility] [place] [address] [facility] [place] [id number] [address] [place] [address] Aug, [facility] [place] [address] [id number] [address] [place] [address] Aug, [facility] [place] [address] [place] [id number] [address] [place] [address] Aug, [facility] [place] [address] [facility] [place] [id number] [address] [place] [address] Aug, Other constipation K59.09 ; Hyperlipidemia, unspecified hyperlipidemia E78.5 ; Essential hypertension I10 ; Primary insomnia F51.01 ; Anxiety F41.9 ; Chronic pain syndrome G89.4 ; Right shoulder pain M25.511 and Acute cystitis without hematuria N30.00 [facility] [place] [address] [facility] [place] [id number] [address] [place] [address] Jul, [facility] [place] [address] [id number] [address] [place] [address] Jul, [facility] [place] [address] [facility] [place] [id number] [address] [place] [address] Jun, [facility] [place] [address] [facility] [place] [id number] [address] [place] [address] Jun, [facility] [place] [address] [facility] [place] [id number] [address] [place] [address] Jun, [facility] [place] [address] [facility] [place] [id number] [address] [place] [address] May, [facility] [place] [address] [id number] [address] [place] [address] May, Other chronic pain 338.29 ; Hypertension 401.9 and Constipation due to opioid therapy 564.09 [facility] [place] [address] [id number] [address] [place] [address] 17 May, 2015 [facility] [place] [address] [id number] [address] [place] [address] May, [facility] [place] [address] [id number] [address] [place] [address] Apr, [facility] [place] [address] [id number] [address] [place] [address] Apr, Unspecified essential hypert ension 401.9 [facility] [place] [address] [id number] [address] [place] [address] Apr, [facility] [place] [address] [id number] [address] [place] [address] Apr, [facility] [place] [address] [id number] [address] [place] [address] Apr, [facility] [place] [address] [id number] [address] [place] [address] Apr, [facility] [place] [address] [id number] [address] [place] [address] Apr, [facility] [place] [address] [id number] [address] [place] [address] Apr, [facility] [place] [address] [id number] [address] [place] [address] March, Unspecified essential hypert ension 401.9 [facility] [place] [address] [id number] [address] [place] [address] March, [facility] [place] [address] [facility] [place]NOTE 2] [id number] [address] [place] [id number] March, [facility] [address] [id number] [address] [place] [address], [place] [address] 14 Feb, 2015 [facility] [address] [id number] [address] [place] [address], [place] [address] Feb, [facility] [address] [id number] [address] [place] [address], [place] [address] Jan, [facility] [address] [id number] [address] [place] [address], [place] [address] Jan, [facility] [address] [id number] [address] [place] [address], [place] [address] Jan, [facility] [address] [id number] [address] [place] [address], [place] [address] Jan, [facility] [address] [id number] [address] [place] [address], [place] [address] Jan, [facility] [address] [id number] [address] [place] [address], [place] [address] Jan, [facility] [address] [id number] [address] [place] [address], [place] [address] Jan, [facility] [address] [address] [id number] [address] [place] [address], [place] [address] 16 Dec, 2014 [facility] [address] [id number] [address] [place] [address], [place] [address] Dec, [facility] [address] [id number] [address] [place] [address], [place] [address] Dec, [facility] [address] [id number] [address] [place] [address], [place] [address] Nov, [facility] [address] [id number] [address] [place] [address], [place] [address] Nov, [facility] [address] [id number] [address] [place] [address], [place] [address] Oct, [facility] [address] [id number] [address] [place] [address], [place] [address] 16 Oct, 2014 [facility] [address] [id number] [address] [place] [address], [place] [address] Oct, [facility] [address] [id number] [address] [place] [address], [place] [address] Oct, [facility] [address] [id number] [address] [place] [address], [place] [address] Oct, [facility] [address] [id number] [address] [place] [address], [place] [address] Oct, [facility] [address] [id number] [address] [place] [address], [place] [address] Oct, [facility] [address] [id number] [address] [place] [address], [place] [address] Oct, [facility] [address] [id number] [address] [place] [address], [place] [address] Sep, [facility] [address] [id number] [address] [place] [address], [place] [address] Sep, [facility] [address] [id number] [address] [place] [address], [place] [address] Sep, [facility] [address] [id number] [address] [place] [address], [place] [address] Sep, [facility] [address] [id number] [address] [place] [address], [place] [address] Sep, [facility] [address] [id number] [address] [place] [address], [place] [address] Sep, [facility] [address] [id number] [address] [place] [address], [place] [address] Aug, [facility] [address] [id number] [address] [place] [address], [place] [address] Aug, [facility] [address] [id number] [address] [place] [address], [place] [address] Aug, [facility] [address] [id number] [address] [place] [address], [place] [address] Aug, [facility] [address] [id number] [address] [place] [address], [place] [address] Aug, [facility] [address] [id number] [address] [place] [address], [place] [address] Aug, [facility] [address] [id number] [address] [place] [address], [place] [address] Aug, [facility] [address] [id number] [address] [place] [address], [place] [address] Aug, [facility] [address] [id number] [address] [place] [address], [place] [address] Aug, [facility] [address] [id number] [address] [place] [address], [place] [address] Aug, [facility] [address] [id number] [address] [place] [address], [place] [address] Jul, [facility] [address] [id number] [address] [place] [address], [place] [address] Jul, [facility] [address] [id number] [address] [place] [address], [place] [address] Jul, [facility] [address] [id number] [address] [place] [address], [place] [address] Jul, [facility] [address] [id number] [address] [place] [address], [place] [address] Jul, [facility] [address] [id number] [address] [place] [address], [place] [address] Jul, [facility] [address] [id number] [address] [place] [address], [place] [address] Jun, [facility] [address] [id number] [address] [place] [address], [place] [address] Jun, [facility] [address] [id number] [address] [place] [address], [place] [address] Jun, [facility] [address] [id number] [facility] [place] [address] Jun, [facility] [address] [id number] [address] [place] [address], [place] [address] Jun, [facility] [address] [id number] [address] [place] [address], [place] [address] Jun, [facility] [address] [id number] [address] [place] [address], [place] [address] May, [facility] [address] [id number] [address] [place] [address], [place] [address] May, [facility] [address] [id number] [address] [place] [address], [place] [address] May, [facility] [address] [id number] [address] [place] [address], [place] [address] May, [facility] [address] [id number] [address] [place] [address], [place] [address] May, [facility] [address] [id number] [address] [place] [address], [place] [address] Apr, [facility] [address] [id number] [address] [place] [address], [place] [address] Apr, [facility] [address] [id number] [address] [place] [address], [place] [address] Apr, [facility] [address] [id number] [address] [place] [address], [place] [address] Apr, [facility] [address] [id number] [address] [place] [address], [place] [address] March, [facility] [address] [id number] [address] [place] [address], [place] [address] March, [facility] [address] [id number] [address] [place] [address], [place] [address] March, [facility] [address] [id number] [facility] [place] [address] March, [facility] [address] [id number] [address] [place] [address], [place] [address] March, [facility] [address] [id number] [address] [place] [address], [place] [address] March, [facility] [address] [id number] [address] [place] [address], [place] [address] Feb, [facility] [address] [id number] [address] [place] [address], [place] [address] Feb, [facility] [address] [id number] [address] [place] [address], [place] [address] Feb, [facility] [address] [id number] [address] [place] [address], [place] [address] Feb, [facility] [address] [id number] [address] [place] [address], [place] [address] Feb, [facility] [address] [id number] [address] [place] [address], [place] [address] Feb, [facility] [address] [id number] [address] [place] [address], [place] [address] Feb, [facility] [address] [id number] [address] [place] [address], [place] [address] Feb, [facility] [address] [id number] [address] [place] [address], [place] [address] Jan, [facility] [address] [id number] [address] [place] [address], [place] [address] Jan, [facility] [address] [id number] [address] [place] [address], [place] [address] Jan, [facility] [address] [id number] [address] [place] [address], [place] [address] Jan, [facility] [address] [id number] [address] [place] [address], [place] [address] Jan, [facility] [address] [id number] [address] [place] [address], [place] [address] Jan, [facility] [address] [id number] [address] [place] [address], [place] [address] Dec, [facility] [address] [id number] [address] [place] [address], [place] [address] Dec, [facility] [address] [id number] [address] [place] [address], [place] [address] Nov, [facility] [address] [id number] [address] [place] [address], [place] [address] Nov, [facility] [address] [id number] [address] [place] [address], [place] [address] Nov, [facility] [address] [id number] [address] [place] [address], [place] [address] Nov, [facility] [address] [id number] [address] [place] [address], [place] [address] Nov, [facility] [address] [id number] [address] [place] [address], [place] [address] Nov, [facility] [address] [id number] [address] [place] [address], [place] [address] Nov, [facility] [address] [id number] [address] [place] [address], [place] [address] Nov, [facility] [address] [id number] [address] [place] [address], [place] [address] Nov, [facility] [address] [id number] [address] [place] [address], [place] [address] Nov, [facility] [address] [id number] [address] [place] [address], [place] [address] Nov, [facility] [address] [id number] [address] [place] [address], [place] [address] Nov, [facility] [address] [id number] [address] [place] [address] Nov, [facility] [place] [address] [id number] [address] [place] [address] Nov, [facility] [place] [address] [id number] [address] [place] [address] Nov, [facility] [place] [address] [id number] [address] [place] [address] Oct, [facility] [place] [address] [id number] [address] [place] [address] Oct, [facility] [place] [address] [id number] [address] [place] [address] Oct, [facility] [place] [address] [id number] [address] [place] [address] Oct, [facility] [place] [address] [id number] [address] [place] [address] Oct, [facility] [place] [address] [id number] [address] [place] [address] Oct, [facility] [place] [address] [id number] [address] [place] [address] Oct, [facility] [place] [address] [id number] [address] [place] [address] Oct, [facility] [place] [address] [id number] [address] [place] [address] Oct, [facility] [place] [address] [id number] [address] [place] [address] Aug, [facility] [place] [address] [id number] [address] [place] [address] Aug, IMMUNIZATIONS No Known Immunizations SOCIAL HISTORY [...] by Dr. Troy Michelle pain specialist in [place], [place] Medical History Chronic low back pain [...]
--- OUTSIDE RECORDS SUMMARY | 2020-06-19 02:11 | XMS REPORT ---
Author Author ARMANDO Mahsavirgen LOCK Organization [facility] Address [address] [place] [address] Care Team Providers Care Press Pipe Inspector Name Role Phone ARMANDONYASIA DIAZY Unavailable PROBLEMS Type Condition ICD9-CM Code [id number] Code Onset Dates Condition S tatus SNOMED Code Problem Other constipation K59.09 Active 1 [id number] Problem Primary insomnia F51.01 Active 193 406085 Problem Chronic pain syndrome G89.4 Active 544878602 Problem Essential hypertension I10 Active 04485721 Problem Anxiety F41.9 Active 71600372 Problem Major depressive disorder, recurrent episode, un specified severity F33.9 Active 91684774 Problem Atherosclerosis of [place] co ronary artery of [place] heart without angina pectoris I25.10 Active [id number] Problem Bilateral low back pain, with sciatica presence unspecifie d M54.5 Active 414852872 Problem Allergic rhinitis J30.9 Active 61 490249 Problem Fibromyalgia M79.7 Active 4849876 7 Problem Degenerative disc disease, thoracic M51.34 Active 65988695 Problem B12 deficiency E53.8 Active 05236 4004 Problem Degenerative disc disease, cervical M50.30 Active 05806976 Problem Hyperlipidemia, unspecified hyperlipidemia E78.5 Active 20304750 Problem GERD (gastroesophageal reflux disease) K21.9 Active 929555667 Problem Chronic obstructive pulmonary disease, unspecified COPD ty pe J44.9 Active 93999696 Problem CKD (chronic kidney disease) stage 3, GFR 30-59 ml/min N18.3 Active 502349108 Problem Cannabis abuse F12.10 Active 93952 009 ALLERGIES No Information ENCOUNTERS Encounter Location Date Diagnosis [facility] [address] [facility] [id number] [address] [place] [address] Apr, B12 deficiency E53.8 [facility] [address] [facility] [id number] [address] [place] [address] Jan, Periumbilical hernia K42.9 ; CKD (chronic kidney disease) stage 3, GFR 30-59 ml/min N18.3 ; Essential hypertension I10 ; GERD (gastroesophageal reflux disease) K21.9 ; Hyperlipidemia, unspecified hyperlipidemia E78.5 and Major depressive disorder, recurrent episode, unspecified severity F33.9 [place] [address] [id number] [address] [place] [address] Dec, Anxiety F41.9 [place] [address] [id number] [address] [place] [address] Nov, Elevated platelet count R79. 89 [place] [address] [id number] [address] [place] [address] Nov, [place] [address] [facility] [id number] [address] [place] [address] Nov, Elevated platelet count R79. 89 [place] [address] [facility] [id number] [address] [place] [address] Nov, Anxiety F41.9 [place] [address] [id number] [address] [place] [address] Nov, Bilateral low back pain, wit h sciatica presence unspecified M54.5 ; Cervicalgia M54.2 ; Degenerative disc disease, cervical M50.30 and Degenerative disc disease, thoracic M51.34 [place] [address] [place] [id number] [address] [place] [address] Nov, Chronic pain syndrome G89.4 and Bilateral low back pain, with sciatica presence unspecified M54.5 [place] [address] [place] [id number] [address] [place] [address] Oct, Umbilical hernia without obs truction and without gangrene K42.9 [place] [address] [facility] [id number] [address] [place] [address] Oct, Chronic pain syndrome G89.4 [place] [address] [place] [id number] [address] [place] [address] Oct, Chronic pain syndrome G89.4 and Anxiety F41.9 [place] [address] [place] [id number] [address] [place] [address] 12 Oct, 2018 Elevated platelet count R79. 89 [place] [address] [place] [id number] [address] [place] [address] 10 Oct, 2018 CKD (chronic kidney disease) stage 3, GFR 30-59 ml/min N18.3 ; Other chest pain R07.89 ; Acute midline thoracic back pain M54.6 ; Essential hypertension I10 and History of osteoporosis Z87.39 [place] [id number] [place] [address] 29 Sep, 2018 Chronic pain syndrome G89.4 [place] [address] [place] [id number] [place] [address] 16 Sep, 2018 [place] [address] [address] Sep, Anxiety F41.9 and Chronic pa in syndrome G89.4 [place] [address] [place] [id number] [address] [place] [address] 18 Aug, 2018 Chronic pain syndrome G89.4 and Anxiety F41.9 [place] [address] [place] [id number] [address] [place] [address] Aug, [place] [address] [address] Aug, Cannabis abuse F12.10 and Co ntrolled substance agreement terminated Z91.14 [place] [address] [place] [id number] [address] [place] [address] 28 Jul, 2018 Chronic pain syndrome G89.4 ; Bilateral low back pain, with sciatica presence unspecified M54.5 ; Chronic prescription opiate use Z79.899 ; Essential hypertension I10 ; Hyperlipidemia, unspecified hyperlipidemia E78.5 ; CKD (chronic kidney disease) stage 3, GFR 30-59 ml/min N18.3 and Allergic rhinitis J30.9 [place] [address] [place] [address] [place] [address] Jul, Chronic pain syndrome G89.4 and Anxiety F41.9 [place] [address] [place] [id number] [address] [place] [address] Jul, Screening for breast cancer Z12.31 and Major depressive disorder, recurrent episode, unspecified severity F33.9 [place] [address] [place] [id number] [address] [place] [address] Jun, Chronic pain syndrome G89.4 and Anxiety F41.9 [place] [address] [place] [id number] [address] [place] [address] May, Chronic pain syndrome G89.4 and Anxiety F41.9 [place] [address] [place] [id number] [address] [place] [address] Apr, Anxiety F41.9 [place] [address] [place] [id number] [place] [address] Apr, Chronic prescription opiate use Z79.899 ; Chronic pain syndrome G89.4 ; Essential hypertension I10 ; Allergic rhinitis J30.9 and CKD (chronic kidney disease) stage 3, GFR 30-59 ml/min N18.3 [place] [address] [place] [id number] [address] [place] [address] Apr, [place] [address] [place] [id number] [address] [place] [address] March, Anxiety F41.9 and Chronic pa in syndrome G89.4 [place] [address] [facility] [id number] [address] [place] [address] March, CKD (chronic kidney disease) stage 3, GFR 30-59 ml/min N18.3 ; B12 deficiency E53.8 and Hyperlipidemia, unspecified hyperlipidemia E78.5 [place] [address] [facility] [id number] [address] [place] [address] March, Anxiety F41.9 and Chronic pa in syndrome G89.4 [place] [address] [address] Feb, Anxiety F41.9 and Chronic pa in syndrome G89.4 [place] [address] [address] Jan, B12 deficiency E53.8 [place] [address] [address] Jan, [place] [address] [address] Jan, Anxiety F41.9 ; Chronic pain syndrome G89.4 and Essential hypertension I10 [place] [address] [address] Jan, CKD (chronic kidney disease) stage 3, [...] Subacromial bursitis of right shoulder joint M75.51 [place] [address] [address] 28 Dec, 2017 Essential hypertension I10 [place] [address] [address] 15 Dec, 2017 Chronic pain syndrome G89.4 [place] [address] [address] Dec, Chronic pain syndrome G89.4 [place] [address] [address] Nov, [place] [address] [address] Nov, Chronic pain syndrome G89.4 and Anxiety F41.9 [place] [address] [facility] [id number] [address] [place] [address] Oct, Chronic pain syndrome G89.4 ; Other constipation K59.09 and Chronic prescription opiate use Z79.899 [facility] [address] [facility] [id number] [address] [place] [address] Oct, Chronic pain syndrome G89.4 and Anxiety F41.9 [place] [address] [facility] [id number] [address] [place] [address] Sep, Essential hypertension I10 [place] [address] [facility] [id number] [address] [place] [address] 16 Sep, 2017 Chronic pain syndrome G89.4 and Anxiety F41.9 [place] [address] [facility] [id number] [address] [place] [address] Aug, Chronic pain syndrome G89.4 and Anxiety F41.9 [place] [address] [place] [id number] [address] [place] [address] Jul, Essential hypertension I10 [place] [address] [facility] [id number] [address] [place] [address] 22 Jul, 2017 Chronic obstructive pulmonar y disease, unspecified COPD type J44.9 [place] [address] [facility] [id number] [address] [place] [address] Jul, Chronic pain syndrome G89.4 and Anxiety F41.9 [place] [address] [place] [id number] [address] [place] [address] 13 Jul, 2017 Chronic pain syndrome G89.4 ; Essential hypertension I10 ; Fibromyalgia M79.7 ; CKD (chronic kidney disease) stage 3, GFR 30-59 ml/min N18.3 ; Subacromial bursitis, right M75.51 and Goals of care, co unseling/discussion Z71.89 [place] [address] [facility] [id number] [address] [place] [address] Jun, Chronic pain syndrome G89.4 and Anxiety F41.9 [place] [address] [id number] [address] [place] [address] May, Chronic pain syndrome G89.4 and Anxiety F41.9 [facility] [address] [facility] [id number] [address] [place] [address] Apr, Chronic pain syndrome G89.4 and Anxiety F41.9 [facility] [address] [facility] [id number] [address] [place] [address] Apr, Drug induced constipation K5 9.03 ; Chronic pain syndrome G89.4 and CKD (chronic kidney disease) stage 3, GFR 30-59 ml/min N18.3 [facility] [address] [facility] [id number] [address] [place] [address] Apr, Chronic pain syndrome G89.4 and Anxiety F41.9 [place] [address] [facility] [id number] [address] [place] [address] March, Chronic pain syndrome G89.4 and Anxiety F41.9 [facility] [address] [facility] [id number] [address] [place] [address] March, Decreased GFR R94.4 [facility] [address] [facility] [id number] [address] [place] [address] Feb, [facility] [address] [facility] [id number] [address] [place] [address] Feb, Chronic pain syndrome G89.4 and Anxiety F41.9 [facility] [address] [facility] [id number] [address] [place] [address] Jan, Decreased GFR R94.4 [facility] [address] [facility] [id number] [address] [place] [address] Jan, Decreased GFR R94.4 [facility] [address] [facility] [id number] [address] [place] [address] Jan, Allergic rhinitis J30.9 ; Es sential hypertension I10 ; Major depressive disorder, recurrent episode, unspecified severity F33.9 and Primary insomnia F51.01 [facility] [address] [place] [id number] [address] [place] [address] Jan, Acute right-sided thoracic b ack pain M54.6 ; Subacromial bursitis of right shoulder joint M75.51 ; Chronic pain syndrome G89.4 and Anxiety F41.9 [place] [address] [place] [id number] [address] [place] [address] Jan, Decreased GFR R94.4 [place] [address] [place] [id number] [address] [place] [address] Dec, Decreased GFR R94.4 [place] [address] [place] [id number] [place] [address] Dec, Decreased GFR R94.4 [place] [address] [address] Dec, Decreased GFR R94.4 [place] [address] [place] [id number] [place] [address] Dec, Decreased GFR R94.4 [place] [address] [address] Dec, Anxiety F41.9 and Bilateral low back pain, with sciatica presence unspecified M54.5 [place] [address] [address] Dec, Thrombocytosis D47.3 ; Hyper lipidemia, unspecified hyperlipidemia E78.5 ; Need for hepatitis C screening test Z11.59 and B12 deficiency E53.8 [place] [address] [place] [id number] [address] [place] [address] Nov, Need for hepatitis C screeni ng test Z11.59 [place] [address] [place] [id number] [place] [address] Nov, Anxiety F41.9 and Bilateral low back pain, with sciatica presence unspecified M54.5 [place] [address] [place] [id number] [address] [place] [address] Oct, Bilateral low back pain, wit h sciatica presence unspecified M54.5 ; Chronic prescription opiate use Z79.899 ; Anxiety F41.9 ; Essential hypertension I10 ; Hyperlipidemia, unspecified hyperlipidemia E78.5 ; Health care maintenance Z00.00 and Thrombocytosis D47.3 [place] [address] [address] Sep, [facility] [address] [address] Sep, [place] [address] [address] Aug, [place] [address] [address] Jul, B12 deficiency E53.8 [place] [address] [address] Jul, [place] [address] [address] Jul, Essential hypertension I10 ; Chronic pain syndrome G89.4 ; Anxiety F41.9 ; Screening for breast cancer Z12.39 ; Atherosclerosis of [place] coronary artery of [place] heart without angina pectoris I25.10 ; Major depressive disorder, recurrent episode, unspecified severity F33.9 ; Primary insomnia F51.01 and Allergic rhinitis J30.9 [place] [address] [place] [id number] [address] [place] [address] Jun, [facility] [address] [place] [id number] [address] [place] [address] Jun, Leg wound, right, initial en counter S81.801A and Encounter for immunization Z23 [place] [address] [place] [id number] [address] [place] [address] Jun, Open wound of right ear, uns pecified open wound type, initial encounter S01.301A [place] [address] [place] [id number] [address] [place] [address] May, B12 deficiency E53.8 [facility] [id number] [place] [address] May, [facility] [address] [place] [id number] [address] [place] [address] May, [facility] [address] [address] May, Chronic pain syndrome G89.4 ; Chronic prescription opiate use Z79.899 ; Allergic rhinitis J30.9 ; Essential hypertension I10 and Non-healing skin lesion L98.9 [place] [address] [address] Apr, [place] [address] [address] March, [facility] [address] [address] Feb, [facility] [address] [address] Feb, [place] [address] [address] Feb, Chronic pain syndrome G89.4 ; Anxiety F41.9 ; B12 deficiency E53.8 ; Allergic rhinitis J30.9 ; Fibromyalgia M79.7 ; Actinic keratosis L57.0 ; Skin rash R21 ; Open wound of right ear, unspecified open wound type, initial encounter S01.301A ; Subacromial bursitis, right M75.51 ; GERD (gastroesophageal reflux disease) K21.9 and Chronic obstructive pulmonary disease, unspecified COPD type J44.9 [facility] [address] [place] [id number] [address] [place] [address] Jan, [facility] [address] [address] Jan, Essential hypertension I10 [place] [address] [facility] [id number] [address] [place] [address] 11 Jan, 2016 [facility] [address] [facility] [id number] [address] [place] [address] Jan, [facility] [address] [facility] [id number] [address] [place] [address] Jan, [facility] [address] [facility] [id number] [address] [place] [address] Dec, [facility] [address] [facility] [id number] [address] [place] [address] Dec, Essential hypertension I10 [facility] [address] [facility] [id number] [place] [address] Dec, [facility] [address] [facility] [id number] [place] [address] Dec, B12 deficiency E53.8 and Ess ential hypertension I10 [facility] [address] [facility] [id number] [address] [place] [address] Dec, [facility] [address] [facility] [id number] [address] Nov, Right shoulder pain M25.511 [facility] [address] [address] Nov, Right shoulder pain M25.511 [facility] [address] [facility] [id number] [address] [place] [address] Nov, Essential hypertension I10 a nd B12 deficiency E53.8 [facility] [address] [facility] [id number] [address] [place] [address] 14 Nov, 2015 Major depressive disorder, r ecurrent episode, unspecified severity F33.9 ; Anxiety F41.9 ; Chronic pain syndrome G89.4 ; Essential hypertension I10 ; Hyperlipidemia, unspecified hyperlipidemia E78.5 ; Chronic prescription opiate use Z79.899 ; Allergic rhinitis J30.9 ; B12 deficiency E53.8 and Right shoulder pain M25.511 [facility] [address] [id number] [address] [place] [address] Oct, [facility] [address] [id number] [address] [place] [address] Oct, [facility] [address] [facility] [id number] [address] [place] [address] Sep, [facility] [address] [id number] [address] [place] [address] Sep, [facility] [address] [facility] [id number] [address] [place] [address] Aug, [facility] [address] [facility] [id number] [address] [place] [address] Aug, [facility] [address] [place] [id number] [address] [place] [address] Aug, [facility] [address] [place] [id number] [address] [place] [address] Aug, Other constipation K59.09 ; Hyperlipidemia, unspecified hyperlipidemia E78.5 ; Essential hypertension I10 ; Primary insomnia F51.01 ; Anxiety F41.9 ; Chronic pain syndrome G89.4 ; Right shoulder pain M25.511 and Acute cystitis without hematuria N30.00 [facility] [address] [place] [id number] [address] [place] [address] 16 Jul, 2015 [facility] [address] [facility] [id number] [address] [place] [address] Jul, [facility] [address] [facility] [id number] [address] [place] [address] Jun, [facility] [address] [place] [id number] [address] [place] [address] Jun, [facility] [address] [facility] [id number] [address] [place] [address] Jun, [facility] [address] [facility] [id number] [address] [place] [address] May, [facility] [address] [id number] [address] [place] [address] May, Other chronic pain 338.29 ; Hypertension 401.9 and Constipation due to opioid therapy 564.09 [facility] [address] [id number] [address] [place] [address] 17 May, 2015 [facility] [address] [id number] [address] [place] [address] May, [facility] [address] [id number] [address] [place] [address] Apr, [facility] [address] [id number] [address] [place] [address] Apr, Unspecified essential hypert ension 401.9 [facility] [address] [id number] [address] [place] [address] Apr, [facility] [address] [id number] [address] [place] [id number] Apr, [facility] [address] [id number] [address] [place] [phone] Apr, [facility] [address] [id number] [address] [place] [phone] Apr, [facility] [address] [id number] [address] [place] [phone] Apr, [facility] [address] [id number] [address] [place] [phone] Apr, [facility] [address] [id number] [address] [place] [phone] March, Unspecified essential hypert ension 401.9 [facility] [address] [id number] [address] [place] [phone] March, [facility] [address] [id number] [address] [place] [id number] March, [facility] [address] [id number] [address] [place] [address], [place] [phone] 14 Feb, 2015 [facility] [address] [id number] [address] [place] [address], [place] [phone] Feb, [facility] [address] [id number] [address] [place] [address], [place] [phone] Jan, [facility] [address] [id number] [address] [place] [address], [place] [phone] Jan, [facility] [address] [id number] [address] [place] [address], [place] [phone] Jan, [facility] [address] [id number] [address] [place] [address], [place] [phone] Jan, [facility] [address] [id number] [address] [place] [address], [place] [id number] Jan, [facility] [address] [id number] [address] [place] [address], [place] [phone] Jan, [facility] [address] [id number] [address] [place] [address], [place] [id number] Jan, [facility] [address] [id number] [address] [place] [address], [place] [address] 16 Dec, 2014 [facility] [address] [id number] [address] [place] [address], [place] [address] Dec, [facility] [address] [id number] [address] [place] [address], [place] [address] Dec, [facility] [address] [id number] [address] [place] [address], [place] [address] Nov, [facility] [address] [id number] [address] [place] [address], [place] [address] Nov, [facility] [address] [id number] [address] [place] [address], [place] [address] Oct, [facility] [address] [id number] [address] [place] [id number] 16 Oct, 2014 [facility] [address] [id number] [address] [place] [address], [place] [address] Oct, [facility] [address] [id number] [address] [place] [address], [place] [address] Oct, [facility] [address] [id number] [address] [place] [address], [place] [address] Oct, [facility] [address] [id number] [address] [place] [address], [place] [address] Oct, [facility] [address] [id number] [address] [place] [address], [place] [address] Oct, [facility] [address] [id number] [address] [place] [address], [place] [address] Oct, [facility] [address] [id number] [address] [place] [address], [place] [address] Sep, [facility] [address] [id number] [address] [place] [address], [place] [address] Sep, [facility] [address] [id number] [address] [place] [address], [place] [address] Sep, [facility] [address] [id number] [address] [place] [address], [place] [address] Sep, [facility] [address] [id number] [address] [place] [address], [place] [address] Sep, [facility] [address] [id number] [address] [place] [address] Sep, [facility] [address] [id number] [address] [place] [address], [place] [address] Aug, [facility] [address] [id number] [address] [place] [address], [place] [address] Aug, [facility] [address] [id number] [address] [place] [address], [place] [address] Aug, [facility] [address] [id number] [address] [place] [address], [place] [address] Aug, [facility] [address] [id number] [address] [place] [address], [place] [address] Aug, [facility] [address] [id number] [address] [place] [address], [place] [address] Aug, [facility] [address] [id number] [address] [place] [address], [place] [address] Aug, [facility] [address] [id number] [address] [place] [address], [place] [address] Aug, [facility] [address] [id number] [address] [place] [address], [place] [address] Aug, [facility] [address] [id number] [address] [place] [address], [place] [address] Aug, [facility] [address] [id number] [address] [place] [address], [place] [address] Jul, [facility] [address] [id number] [address] [place] [address], [place] [address] Jul, [facility] [address] [id number] [address] [place] [address], [place] [address] Jul, [facility] [address] [id number] [address] [place] [address], [place] [address] Jul, [facility] [address] [id number] [address] [place] [address], [place] [address] Jul, [facility] [address] [id number] [address] [place] [address], [place] [address] Jul, [facility] [address] [id number] [address] [place] [address], [place] [address] Jun, [facility] [address] [id number] [address] [place] [address], [place] [address] Jun, [facility] [address] [id number] [address] [place] [address], [place] [address] Jun, [facility] [address] [id number] [facility] [place] [address] Jun, [facility] [address] [id number] [facility] [place] [address] Jun, [facility] [address] [id number] [facility] [place] [address] Jun, [facility] [address] [id number] [address] [place] [address], [place] [address] May, [facility] [address] [id number] [address] [place] [address], [place] [address] May, [facility] [address] [id number] [address] [place] [address], [place] [address] May, [facility] [address] [id number] [address] [place] [address], [place] [address] May, [facility] [address] [id number] [address] [place] [address], [place] [address] May, [facility] [address] [id number] [address] [place] [address], [place] [address] Apr, [facility] [address] [id number] [address] [place] [address], [place] [address] Apr, [facility] [address] [id number] [address] [place] [address], [place] [address] Apr, [facility] [address] [id number] [address] [place] [address], [place] [address] Apr, [facility] [address] [id number] [address] [place] [address], [place] [address] March, [facility] [address] [id number] [address] [place] [address], [place] [address] March, [facility] [address] [id number] [address] [place] [address], [place] [address] March, [facility] [address] [id number] [facility] [place] [address] March, [facility] [address] [id number] [address] [place] [address], [place] [address] March, [facility] [address] [id number] [address] [place] [address], [place] [address] March, [facility] [address] [id number] [address] [place] [address], [place] [address] Feb, [facility] [address] [id number] [address] [place] [address], [place] [address] Feb, [facility] [address] [id number] [address] [place] [address], [place] [address] Feb, [facility] [address] [id number] [address] [place] [address], [place] [address] Feb, [facility] [address] [id number] [address] [place] [address], [place] [address] Feb, [facility] [address] [id number] [address] [place] [address], [place] [address] Feb, [facility] [address] [id number] [address] [place] [address], [place] [address] Feb, [facility] [address] [id number] [address] [place] [address], [place] [address] Feb, [facility] [address] [id number] [address] [place] [address], [place] [address] Jan, [facility] [address] [id number] [address] [place] [address], [place] [address] Jan, [facility] [address] [id number] [address] [place] [address], [place] [address] Jan, [facility] [address] [id number] [address] [place] [address], [place] [address] Jan, [facility] [address] [id number] [address] [place] [address], [place] [address] Jan, [facility] [address] [id number] [address] [place] [address], [place] [address] Jan, [facility] [address] [id number] [address] [place] [address], [place] [address] Dec, [facility] [address] [id number] [address] [place] [address], [place] [address] Dec, [facility] [address] [id number] [address] [place] [address], [place] [address] Nov, [facility] [address] [id number] [address] [place] [address], [place] [address] Nov, [facility] [address] [id number] [address] [place] [address], [place] [address] Nov, [facility] [address] [id number] [address] [place] [address], [place] [address] Nov, [facility] [address] [id number] [address] [place] [address], [place] [address] Nov, [facility] [address] [id number] [address] [place] [address], [place] [address] Nov, [facility] [address] [id number] [address] [place] [address], [place] [address] Nov, [facility] [address] [id number] [address] [place] [address], [place] [address] Nov, [facility] [address] [id number] [address] [place] [address], [place] [address] Nov, [facility] [address] [id number] [address] [place] [address], [place] [address] Nov, [facility] [address] [id number] [address] [place] [address], [place] [address] Nov, [facility] [address] [id number] [address] [place] [address], [place] [address] Nov, [facility] [address] [id number] [address] [place] [address] Nov, [facility] [address] [id number] [address] [place] [address] Nov, [facility] [address] [id number] [address] [place] [address] Nov, [facility] [address] [id number] [address] [place] [address] Oct, [facility] [address] [id number] [address] [place] [address] Oct, [facility] [address] [id number] [address] [place] [address] Oct, [facility] [address] [id number] [address] [place] [address] Oct, [facility] [address] [id number] [address] [place] [address] Oct, [facility] [address] [id number] [address] [place] [address] Oct, [facility] [address] [id number] [address] [place] [address] Oct, [facility] [address] [id number] [address] [place] [address] Oct, [facility] [address] [id number] [address] [place] [address] Oct, [facility] [address] [id number] [address] [place] [address] Aug, [facility] [address] [id number] [address] [place] [address] Aug, IMMUNIZATIONS No Known Immunizations SOCIAL HISTORY [...] by Dr. Troy Michelle pain specialist in [place], [place] Medical History Chronic low back pain [...]
--- OUTSIDE RECORDS SUMMARY | 2020-06-19 02:11 | XMS REPORT ---
Author Author ARMANDO Mahsavirgen LOCK Organization [facility] Address [address] [place] [address] Care Team Providers Care Data Coordinator Name Role Phone ARMANDONYASIA DIAZY Unavailable PROBLEMS Type Condition ICD9-CM Code MOG49-KU Code Onset Dates Condition S tatus SNOMED Code Problem Other constipation K59.09 Active 1 [id number] Problem Primary insomnia F51.01 Active 193 627101 Problem Chronic pain syndrome G89.4 Active 243566014 Problem Essential hypertension I10 Active 74839437 Problem Anxiety F41.9 Active 94148133 Problem Major depressive disorder, recurrent episode, un specified severity F33.9 Active 52954572 Problem Atherosclerosis of [place] co ronary artery of [place] heart without angina pectoris I25.10 Active 0826607148590 Problem Bilateral low back pain, with sciatica presence unspecifie d M54.5 Active 413700971 Problem Allergic rhinitis J30.9 Active 61 061312 Problem Fibromyalgia M79.7 Active 9373458 7 Problem Degenerative disc disease, thoracic M51.34 Active 94972266 Problem B12 deficiency E53.8 Active 10658 4004 Problem Degenerative disc disease, cervical M50.30 Active 42456544 Problem Hyperlipidemia, unspecified hyperlipidemia E78.5 Active 71643690 Problem GERD (gastroesophageal reflux disease) K21.9 Active 188509181 Problem Chronic obstructive pulmonary disease, unspecified COPD ty pe J44.9 Active 15503726 Problem CKD (chronic kidney disease) stage 3, GFR 30-59 ml/min N18.3 Active 893797259 Problem Cannabis abuse F12.10 Active 57700 009 ALLERGIES No Information ENCOUNTERS Encounter Location Date Diagnosis [facility] [address] [facility] [id number] [address] [place] [phone] Apr, B12 deficiency E53.8 [facility] [address] [facility] [id number] [address] [place] [phone] Jan, Periumbilical hernia K42.9 ; CKD (chronic kidney disease) stage 3, GFR 30-59 ml/min N18.3 ; Essential hypertension I10 ; GERD (gastroesophageal reflux disease) K21.9 ; Hyperlipidemia, unspecified hyperlipidemia E78.5 and Major depressive disorder, recurrent episode, unspecified severity F33.9 [place] [address] [id number] [address] [place] [phone] Dec, Anxiety F41.9 [place] [address] [id number] [address] [place] [phone] Nov, Elevated platelet count R79. 89 [place] [address] [id number] [address] [place] [phone] Nov, [place] [address] [facility] [id number] [address] [place] [phone] Nov, Elevated platelet count R79. 89 [place] [address] [facility] [id number] [address] [place] [phone] Nov, Anxiety F41.9 [place] [address] [id number] [address] [place] [phone] Nov, Bilateral low back pain, wit h sciatica presence unspecified M54.5 ; Cervicalgia M54.2 ; Degenerative disc disease, cervical M50.30 and Degenerative disc disease, thoracic M51.34 [place] [address] [place] [id number] [address] [place] [phone] Nov, Chronic pain syndrome G89.4 and Bilateral low back pain, with sciatica presence unspecified M54.5 [place] [address] [place] [id number] [address] [place] [phone] Oct, Umbilical hernia without obs truction and without gangrene K42.9 [place] [address] [facility] [id number] [address] [place] [address] Oct, Chronic pain syndrome G89.4 [place] [address] [place] [id number] [address] [place] [phone] Oct, Chronic pain syndrome G89.4 and Anxiety F41.9 [place] [address] [place] [id number] [address] [place] [phone] 12 Oct, 2018 Elevated platelet count R79. 89 [place] [address] [place] [id number] [address] [place] [phone] 10 Oct, 2018 CKD (chronic kidney disease) stage 3, GFR 30-59 ml/min N18.3 ; Other chest pain R07.89 ; Acute midline thoracic back pain M54.6 ; Essential hypertension I10 and History of osteoporosis Z87.39 [place] [id number] [place] [phone] 29 Sep, 2018 Chronic pain syndrome G89.4 [place] [address] [place] [id number] [place] [phone] 16 Sep, 2018 [place] [address] [address] Sep, Anxiety F41.9 and Chronic pa in syndrome G89.4 [place] [address] [place] [id number] [address] [place] [phone] 18 Aug, 2018 Chronic pain syndrome G89.4 and Anxiety F41.9 [place] [address] [place] [id number] [address] [place] [phone] Aug, [place] [address] [address] Aug, Cannabis abuse F12.10 and Co ntrolled substance agreement terminated Z91.14 [place] [address] [place] [id number] [address] [place] [id number] 28 Jul, 2018 Chronic pain syndrome G89.4 ; Bilateral low back pain, with sciatica presence unspecified M54.5 ; Chronic prescription opiate use Z79.899 ; Essential hypertension I10 ; Hyperlipidemia, unspecified hyperlipidemia E78.5 ; CKD (chronic kidney disease) stage 3, GFR 30-59 ml/min N18.3 and Allergic rhinitis J30.9 [place] [address] [place] [address] [place] [address] Jul, Chronic pain syndrome G89.4 and Anxiety F41.9 [place] [address] [place] [id number] [address] [place] [address] Jul, Screening for breast cancer Z12.31 and Major depressive disorder, recurrent episode, unspecified severity F33.9 [place] [address] [place] [id number] [address] [place] [phone] Jun, Chronic pain syndrome G89.4 and Anxiety F41.9 [place] [address] [place] [id number] [address] [place] [phone] May, Chronic pain syndrome G89.4 and Anxiety F41.9 [place] [address] [place] [id number] [address] [place] [address] Apr, Anxiety F41.9 [place] [address] [place] [id number] [place] [address] Apr, Chronic prescription opiate use Z79.899 ; Chronic pain syndrome G89.4 ; Essential hypertension I10 ; Allergic rhinitis J30.9 and CKD (chronic kidney disease) stage 3, GFR 30-59 ml/min N18.3 [place] [address] [place] [id number] [address] [place] [address] Apr, [place] [address] [place] [id number] [address] [place] [address] March, Anxiety F41.9 and Chronic pa in syndrome G89.4 [place] [address] [facility] [id number] [address] [place] [address] March, CKD (chronic kidney disease) stage 3, GFR 30-59 ml/min N18.3 ; B12 deficiency E53.8 and Hyperlipidemia, unspecified hyperlipidemia E78.5 [place] [address] [facility] [id number] [address] [place] [phone] March, Anxiety F41.9 and Chronic pa in syndrome G89.4 [place] [address] [address] Feb, Anxiety F41.9 and Chronic pa in syndrome G89.4 [place] [address] [address] Jan, B12 deficiency E53.8 [place] [address] [address] Jan, [place] [address] [address] Jan, Anxiety F41.9 ; Chronic pain syndrome G89.4 and Essential hypertension I10 [place] [address] [address] Jan, CKD (chronic kidney disease) stage 3, [...] Subacromial bursitis of right shoulder joint M75.51 [place] [address] [address] 28 Dec, 2017 Essential hypertension I10 [place] [address] [address] 15 Dec, 2017 Chronic pain syndrome G89.4 [place] [address] [address] Dec, Chronic pain syndrome G89.4 [place] [address] [address] Nov, [place] [address] [address] Nov, Chronic pain syndrome G89.4 and Anxiety F41.9 [place] [address] [facility] [id number] [address] [place] [phone] Oct, Chronic pain syndrome G89.4 ; Other constipation K59.09 and Chronic prescription opiate use Z79.899 [facility] [address] [facility] [id number] [address] [place] [address] Oct, Chronic pain syndrome G89.4 and Anxiety F41.9 [place] [address] [facility] [id number] [address] [place] [phone] Sep, Essential hypertension I10 [place] [address] [facility] [id number] [address] [place] [phone] 16 Sep, 2017 Chronic pain syndrome G89.4 and Anxiety F41.9 [place] [address] [facility] [id number] [address] [place] [phone] Aug, Chronic pain syndrome G89.4 and Anxiety F41.9 [place] [address] [place] [id number] [address] [place] [address] Jul, Essential hypertension I10 [place] [address] [facility] [id number] [address] [place] [phone] 22 Jul, 2017 Chronic obstructive pulmonar y disease, unspecified COPD type J44.9 [place] [address] [facility] [id number] [address] [place] [phone] Jul, Chronic pain syndrome G89.4 and Anxiety F41.9 [place] [address] [place] [id number] [address] [place] [address] 13 Jul, 2017 Chronic pain syndrome G89.4 ; Essential hypertension I10 ; Fibromyalgia M79.7 ; CKD (chronic kidney disease) stage 3, GFR 30-59 ml/min N18.3 ; Subacromial bursitis, right M75.51 and Goals of care, co unseling/discussion Z71.89 [place] [address] [facility] [id number] [address] [place] [address] Jun, Chronic pain syndrome G89.4 and Anxiety F41.9 [place] [address] [id number] [address] [place] [address] May, Chronic pain syndrome G89.4 and Anxiety F41.9 [facility] [address] [facility] [id number] [address] [place] [phone] Apr, Chronic pain syndrome G89.4 and Anxiety F41.9 [facility] [address] [facility] [id number] [address] [place] [address] Apr, Drug induced constipation K5 9.03 ; Chronic pain syndrome G89.4 and CKD (chronic kidney disease) stage 3, GFR 30-59 ml/min N18.3 [facility] [address] [facility] [id number] [address] [place] [address] Apr, Chronic pain syndrome G89.4 and Anxiety F41.9 [place] [address] [facility] [id number] [address] [place] [address] March, Chronic pain syndrome G89.4 and Anxiety F41.9 [facility] [address] [facility] [id number] [address] [place] [phone] March, Decreased GFR R94.4 [facility] [address] [facility] [id number] [address] [place] [phone] Feb, [facility] [address] [facility] [id number] [address] [place] [phone] Feb, Chronic pain syndrome G89.4 and Anxiety F41.9 [facility] [address] [facility] [id number] [address] [place] [phone] Jan, Decreased GFR R94.4 [facility] [address] [facility] [id number] [address] [place] [address] Jan, Decreased GFR R94.4 [facility] [address] [facility] [id number] [address] [place] [address] Jan, Allergic rhinitis J30.9 ; Es sential hypertension I10 ; Major depressive disorder, recurrent episode, unspecified severity F33.9 and Primary insomnia F51.01 [facility] [address] [place] [id number] [address] [place] [address] Jan, Acute right-sided thoracic b ack pain M54.6 ; Subacromial bursitis of right shoulder joint M75.51 ; Chronic pain syndrome G89.4 and Anxiety F41.9 [place] [address] [place] [id number] [address] [place] [address] Jan, Decreased GFR R94.4 [place] [address] [place] [id number] [address] [place] [address] Dec, Decreased GFR R94.4 [place] [address] [place] [id number] [place] [address] Dec, Decreased GFR R94.4 [place] [address] [address] Dec, Decreased GFR R94.4 [place] [address] [place] [id number] [place] [address] Dec, Decreased GFR R94.4 [place] [address] [address] Dec, Anxiety F41.9 and Bilateral low back pain, with sciatica presence unspecified M54.5 [place] [address] [address] Dec, Thrombocytosis D47.3 ; Hyper lipidemia, unspecified hyperlipidemia E78.5 ; Need for hepatitis C screening test Z11.59 and B12 deficiency E53.8 [place] [address] [place] [id number] [address] [place] [address] Nov, Need for hepatitis C screeni ng test Z11.59 [place] [address] [place] [id number] [place] [address] Nov, Anxiety F41.9 and Bilateral low back pain, with sciatica presence unspecified M54.5 [place] [address] [place] [id number] [address] [place] [address] Oct, Bilateral low back pain, wit h sciatica presence unspecified M54.5 ; Chronic prescription opiate use Z79.899 ; Anxiety F41.9 ; Essential hypertension I10 ; Hyperlipidemia, unspecified hyperlipidemia E78.5 ; Health care maintenance Z00.00 and Thrombocytosis D47.3 [place] [address] [address] Sep, [facility] [address] [address] Sep, [place] [address] [address] Aug, [place] [address] [address] Jul, B12 deficiency E53.8 [place] [address] [address] Jul, [place] [address] [address] Jul, Essential hypertension I10 ; Chronic pain syndrome G89.4 ; Anxiety F41.9 ; Screening for breast cancer Z12.39 ; Atherosclerosis of [place] coronary artery of [place] heart without angina pectoris I25.10 ; Major depressive disorder, recurrent episode, unspecified severity F33.9 ; Primary insomnia F51.01 and Allergic rhinitis J30.9 [place] [address] [place] [id number] [address] [place] [address] Jun, [facility] [address] [place] [id number] [address] [place] [address] Jun, Leg wound, right, initial en counter S81.801A and Encounter for immunization Z23 [place] [address] [place] [id number] [address] [place] [address] Jun, Open wound of right ear, uns pecified open wound type, initial encounter S01.301A [place] [address] [place] [id number] [address] [place] [address] May, B12 deficiency E53.8 [facility] [address] [place] [address] May, [facility] [address] [place] [id number] [address] [place] [address] May, [facility] [address] [address] May, Chronic pain syndrome G89.4 ; Chronic prescription opiate use Z79.899 ; Allergic rhinitis J30.9 ; Essential hypertension I10 and Non-healing skin lesion L98.9 [place] [address] [address] Apr, [place] [address] [address] March, [facility] [address] [address] Feb, [facility] [address] [address] Feb, [place] [address] [address] Feb, Chronic pain syndrome G89.4 ; Anxiety F41.9 ; B12 deficiency E53.8 ; Allergic rhinitis J30.9 ; Fibromyalgia M79.7 ; Actinic keratosis L57.0 ; Skin rash R21 ; Open wound of right ear, unspecified open wound type, initial encounter S01.301A ; Subacromial bursitis, right M75.51 ; GERD (gastroesophageal reflux disease) K21.9 and Chronic obstructive pulmonary disease, unspecified COPD type J44.9 [facility] [address] [place] [id number] [address] [place] [phone] Jan, [facility] [address] [address] Jan, Essential hypertension I10 [place] [address] [facility] [id number] [address] [place] [address] 11 Jan, 2016 [facility] [address] [facility] [id number] [address] [place] [address] Jan, [facility] [address] [facility] [id number] [address] [place] [address] Jan, [facility] [address] [facility] [id number] [address] [place] [address] Dec, [facility] [address] [facility] [id number] [address] [place] [address] Dec, Essential hypertension I10 [facility] [address] [facility] [id number] [place] [address] Dec, [facility] [address] [facility] [id number] [place] [address] Dec, B12 deficiency E53.8 and Ess ential hypertension I10 [facility] [address] [facility] [id number] [address] [place] [address] Dec, [facility] [address] [facility] [id number] [address] Nov, Right shoulder pain M25.511 [facility] [address] [address] Nov, Right shoulder pain M25.511 [facility] [address] [facility] [id number] [address] [place] [address] Nov, Essential hypertension I10 a nd B12 deficiency E53.8 [facility] [address] [facility] [id number] [address] [place] [address] 14 Nov, 2015 Major depressive disorder, r ecurrent episode, unspecified severity F33.9 ; Anxiety F41.9 ; Chronic pain syndrome G89.4 ; Essential hypertension I10 ; Hyperlipidemia, unspecified hyperlipidemia E78.5 ; Chronic prescription opiate use Z79.899 ; Allergic rhinitis J30.9 ; B12 deficiency E53.8 and Right shoulder pain M25.511 [facility] [address] [id number] [address] [place] [address] Oct, [facility] [address] [id number] [address] [place] [address] Oct, [facility] [address] [facility] [id number] [address] [place] [address] Sep, [facility] [address] [id number] [address] [place] [address] Sep, [facility] [address] [facility] [id number] [address] [place] [address] Aug, [facility] [address] [facility] [id number] [address] [place] [address] Aug, [facility] [address] [place] [id number] [address] [place] [address] Aug, [facility] [address] [place] [id number] [address] [place] [address] Aug, Other constipation K59.09 ; Hyperlipidemia, unspecified hyperlipidemia E78.5 ; Essential hypertension I10 ; Primary insomnia F51.01 ; Anxiety F41.9 ; Chronic pain syndrome G89.4 ; Right shoulder pain M25.511 and Acute cystitis without hematuria N30.00 [facility] [address] [place] [id number] [address] [place] [address] 16 Jul, 2015 [facility] [address] [facility] [id number] [address] [place] [address] Jul, [facility] [address] [facility] [id number] [address] [place] [address] Jun, [facility] [address] [place] [id number] [address] [place] [address] Jun, [facility] [address] [facility] [id number] [address] [place] [address] Jun, [facility] [address] [facility] [id number] [address] [place] [address] May, [facility] [address] [id number] [address] [place] [address] May, Other chronic pain 338.29 ; Hypertension 401.9 and Constipation due to opioid therapy 564.09 [facility] [address] [id number] [address] [place] [phone] 17 May, 2015 [facility] [address] [id number] [address] [place] [phone] May, [facility] [address] [id number] [address] [place] [phone] Apr, [facility] [address] [id number] [address] [place] [address] Apr, Unspecified essential hypert ension 401.9 [facility] [address] [id number] [address] [place] [address] Apr, [facility] [address] [id number] [address] [place] [phone] Apr, [facility] [address] [id number] [address] [place] [id number] Apr, [facility] [address] [id number] [address] [place] [id number] Apr, [facility] [address] [id number] [address] [place] [id number] Apr, [facility] [address] [id number] [address] [place] [id number] Apr, [facility] [address] [id number] [address] [place] [id number] March, Unspecified essential hypert ension 401.9 [facility] [address] [id number] [address] [place] [id number] March, [facility] [address] [id number] [address] [place] [phone] March, [facility] [address] [id number] [address] [place] [address], [place] [id number] 14 Feb, 2015 [facility] [address] [id number] [address] [place] [address], [place] [id number] Feb, [facility] [address] [id number] [address] [place] [address], [place] [address] Jan, [facility] [address] [id number] [address] [place] [address], [place] [id number] Jan, [facility] [address] [id number] [address] [place] [address], [place] [id number] Jan, [facility] [address] [id number] [address] [place] [address], [place] [id number] Jan, [facility] [address] [id number] [address] [place] [address], [place] [id number] Jan, [facility] [address] [id number] [address] [place] [address], [place] [id number] Jan, [facility] [address] [id number] [address] [place] [address], [place] [phone] Jan, [facility] [address] [id number] [address] [place] [address], [place] [id number] 16 Dec, 2014 [facility] [address] [id number] [address] [place] [address], [place] [address] Dec, [facility] [address] [id number] [address] [place] [address], [place] [address] Dec, [facility] [address] [id number] [address] [place] [address], [place] [address] Nov, [facility] [address] [id number] [address] [place] [address], [place] [id number] Nov, [facility] [address] [id number] [address] [place] [address], [place] [address] Oct, [facility] [address] [id number] [address] [place] [id number] 16 Oct, 2014 [facility] [address] [id number] [address] [place] [address], [place] [address] Oct, [facility] [address] [id number] [address] [place] [address], [place] [address] Oct, [facility] [address] [id number] [address] [place] [address], [place] [address] Oct, [facility] [address] [id number] [address] [place] [address], [place] [address] Oct, [facility] [address] [id number] [address] [place] [address], [place] [address] Oct, [facility] [address] [id number] [address] [place] [address], [place] [address] Oct, [facility] [address] [id number] [address] [place] [address], [place] [address] Sep, [facility] [address] [id number] [address] [place] [address], [place] [address] Sep, [facility] [address] [id number] [address] [place] [address], [place] [address] Sep, [facility] [address] [id number] [address] [place] [address], [place] [address] Sep, [facility] [address] [id number] [address] [place] [address], [place] [address] Sep, [facility] [address] [id number] [address] [place] [address] Sep, [facility] [address] [id number] [address] [place] [address], [place] [address] Aug, [facility] [address] [id number] [address] [place] [address], [place] [address] Aug, [facility] [address] [id number] [address] [place] [address], [place] [address] Aug, [facility] [address] [id number] [address] [place] [address], [place] [address] Aug, [facility] [address] [id number] [address] [place] [address], [place] [address] Aug, [facility] [address] [id number] [address] [place] [address], [place] [address] Aug, [facility] [address] [id number] [address] [place] [address], [place] [address] Aug, [facility] [address] [id number] [address] [place] [address], [place] [address] Aug, [facility] [address] [id number] [address] [place] [address], [place] [address] Aug, [facility] [address] [id number] [address] [place] [address], [place] [address] Aug, [facility] [address] [id number] [address] [place] [address], [place] [address] Jul, [facility] [address] [id number] [address] [place] [address], [place] [address] Jul, [facility] [address] [id number] [address] [place] [address], [place] [address] Jul, [facility] [address] [id number] [address] [place] [address], [place] [address] Jul, [facility] [address] [id number] [address] [place] [address], [place] [address] Jul, [facility] [address] [id number] [address] [place] [address], [place] [address] Jul, [facility] [address] [id number] [address] [place] [address], [place] [address] Jun, [facility] [address] [id number] [address] [place] [address], [place] [address] Jun, [facility] [address] [id number] [address] [place] [address], [place] [address] Jun, [facility] [address] [id number] [facility] [place] [place] [address] Jun, [facility] [address] [id number] [facility] [place] [place] [address] Jun, [facility] [address] [id number] [facility] [place] [place] [address] Jun, [facility] [address] [id number] [address] [place] [address], [place] [address] May, [facility] [address] [id number] [address] [place] [address], [place] [address] May, [facility] [address] [id number] [address] [place] [address], [place] [address] May, [facility] [address] [id number] [address] [place] [address], [place] [address] May, [facility] [address] [id number] [address] [place] [address], [place] [address] May, [facility] [address] [id number] [address] [place] [address], [place] [address] Apr, [facility] [address] [id number] [address] [place] [address], [place] [address] Apr, [facility] [address] [id number] [address] [place] [address], [place] [address] Apr, [facility] [address] [id number] [address] [place] [address], [place] [address] Apr, [facility] [address] [id number] [address] [place] [address], [place] [address] March, [facility] [address] [id number] [address] [place] [address], [place] [address] March, [facility] [address] [id number] [address] [place] [address], [place] [address] March, [facility] [address] [id number] [facility] [place] [place] [address] March, [facility] [address] [id number] [address] [place] [address], [place] [address] March, [facility] [address] [id number] [address] [place] [address], [place] [address] March, [facility] [address] [id number] [address] [place] [address], [place] [address] Feb, [facility] [address] [id number] [address] [place] [address], [place] [address] Feb, [facility] [address] [id number] [address] [place] [address], [place] [address] Feb, [facility] [address] [id number] [address] [place] [address], [place] [address] Feb, [facility] [address] [id number] [address] [place] [address], [place] [address] Feb, [facility] [address] [id number] [address] [place] [address], [place] [address] Feb, [facility] [address] [id number] [address] [place] [address], [place] [address] Feb, [facility] [address] [id number] [address] [place] [address], [place] [address] Feb, [facility] [address] [id number] [address] [place] [address], [place] [address] Jan, [facility] [address] [id number] [address] [place] [address], [place] [address] Jan, [facility] [address] [id number] [address] [place] [address], [place] [address] Jan, [facility] [address] [id number] [address] [place] [address], [place] [address] Jan, [facility] [address] [id number] [address] [place] [address], [place] [address] Jan, [facility] [address] [id number] [address] [place] [address], [place] [address] Jan, [facility] [address] [id number] [address] [place] [address], [place] [address] Dec, [facility] [address] [id number] [address] [place] [address], [place] [address] Dec, [facility] [address] [id number] [address] [place] [address], [place] [address] Nov, [facility] [address] [id number] [address] [place] [address], [place] [address] Nov, [facility] [address] [id number] [address] [place] [address], [place] [address] Nov, [facility] [address] [id number] [address] [place] [address], [place] [address] Nov, [facility] [address] [id number] [address] [place] [address], [place] [address] Nov, [facility] [address] [id number] [address] [place] [address], [place] [address] Nov, [facility] [address] [id number] [address] [place] [address], [place] [address] Nov, [facility] [address] [id number] [address] [place] [address], [place] [address] Nov, [facility] [address] [id number] [address] [place] [address], [place] [address] Nov, [facility] [address] [id number] [address] [place] [address], [place] [address] Nov, [facility] [address] [id number] [address] [place] [address], [place] [address] Nov, [facility] [address] [id number] [address] [place] [address], [place] [address] Nov, [facility] [address] [id number] [address] [place] [address] Nov, [facility] [address] [id number] [address] [place] [address] Nov, [facility] [address] [id number] [address] [place] [address] Nov, [facility] [address] [id number] [address] [place] [address] Oct, [facility] [address] [id number] [address] [place] [address] Oct, [facility] [address] [id number] [address] [place] [address] Oct, [facility] [address] [id number] [address] [place] [address] Oct, [facility] [address] [id number] [address] [place] [address] Oct, [facility] [address] [id number] [address] [place] [address] Oct, [facility] [address] [id number] [address] [place] [address] Oct, [facility] [address] [id number] [address] [place] [address] Oct, [facility] [address] [id number] [address] [place] [address] Oct, [facility] [address] [id number] [address] [place] [address] Aug, [facility] [address] [id number] [address] [place] [address] Aug, IMMUNIZATIONS No Known Immunizations SOCIAL HISTORY [...] by Dr. Troy Michelle pain specialist in [place], [place] Medical History Chronic low back pain [...]
--- OUTSIDE RECORDS SUMMARY | 2020-06-19 02:12 | XMS REPORT ---
Author Author ARMANDO Mahsavirgen LOCK Organization [facility] Address [address] [place] [address] Care Team Providers Care Mediator Name Role Phone ARMANDONYASIA DIAZY Unavailable PROBLEMS Type Condition ICD9-CM Code XMG09-JR Code Onset Dates Condition S tatus SNOMED Code Problem Other constipation K59.09 Active 1 50288792498908 Problem Primary insomnia F51.01 Active 193 603127 Problem Chronic pain syndrome G89.4 Active 739363179 Problem Essential hypertension I10 Active 82207081 Problem Anxiety F41.9 Active 35085343 Problem Major depressive disorder, recurrent episode, un specified severity F33.9 Active 65439631 Problem Atherosclerosis of [place] co ronary artery of [place] heart without angina pectoris I25.10 Active [id number] Problem Bilateral low back pain, with sciatica presence unspecifie d M54.5 Active 821293307 Problem Allergic rhinitis J30.9 Active 61 926817 Problem Fibromyalgia M79.7 Active 3081465 7 Problem Degenerative disc disease, thoracic M51.34 Active 66245677 Problem B12 deficiency E53.8 Active 87973 4004 Problem Degenerative disc disease, cervical M50.30 Active 60208690 Problem Hyperlipidemia, unspecified hyperlipidemia E78.5 Active 05776653 Problem GERD (gastroesophageal reflux disease) K21.9 Active 351430179 Problem Chronic obstructive pulmonary disease, unspecified COPD ty pe J44.9 Active 33282945 Problem CKD (chronic kidney disease) stage 3, GFR 30-59 ml/min N18.3 Active 935721652 Problem Cannabis abuse F12.10 Active 76376 009 ALLERGIES No Information ENCOUNTERS Encounter Location Date Diagnosis [facility] [address] [facility] [id number] [address] [place] [phone] Apr, B12 deficiency E53.8 [facility] [address] [facility] [id number] [address] [place] [phone] Jan, Periumbilical hernia K42.9 ; CKD (chronic kidney disease) stage 3, GFR 30-59 ml/min N18.3 ; Essential hypertension I10 ; GERD (gastroesophageal reflux disease) K21.9 ; Hyperlipidemia, unspecified hyperlipidemia E78.5 and Major depressive disorder, recurrent episode, unspecified severity F33.9 [place] [address] [id number] [address] [place] [phone] Dec, Anxiety F41.9 [place] [address] [id number] [address] [place] [phone] Nov, Elevated platelet count R79. 89 [place] [address] [id number] [address] [place] [phone] Nov, [place] [address] [facility] [id number] [address] [place] [phone] Nov, Elevated platelet count R79. 89 [place] [address] [facility] [id number] [address] [place] [phone] Nov, Anxiety F41.9 [place] [address] [id number] [address] [place] [id number] Nov, Bilateral low back pain, wit h sciatica presence unspecified M54.5 ; Cervicalgia M54.2 ; Degenerative disc disease, cervical M50.30 and Degenerative disc disease, thoracic M51.34 [place] [address] [place] [id number] [address] [place] [phone] Nov, Chronic pain syndrome G89.4 and Bilateral low back pain, with sciatica presence unspecified M54.5 [place] [address] [place] [id number] [address] [place] [phone] Oct, Umbilical hernia without obs truction and without gangrene K42.9 [place] [address] [facility] [id number] [address] [place] [phone] Oct, Chronic pain syndrome G89.4 [place] [address] [place] [id number] [address] [place] [phone] Oct, Chronic pain syndrome G89.4 and Anxiety F41.9 [place] [address] [place] [id number] [address] [place] [id number] 12 Oct, 2018 Elevated platelet count R79. 89 [place] [address] [place] [id number] [address] [place] [phone] 10 Oct, 2018 CKD (chronic kidney disease) stage 3, GFR 30-59 ml/min N18.3 ; Other chest pain R07.89 ; Acute midline thoracic back pain M54.6 ; Essential hypertension I10 and History of osteoporosis Z87.39 [place] [id number] [place] [id number] 29 Sep, 2018 Chronic pain syndrome G89.4 [place] [address] [place] [id number] [place] [phone] 16 Sep, 2018 [place] [address] [address] Sep, Anxiety F41.9 and Chronic pa in syndrome G89.4 [place] [address] [place] [id number] [address] [place] [id number] 18 Aug, 2018 Chronic pain syndrome G89.4 and Anxiety F41.9 [place] [address] [place] [id number] [address] [place] [phone] Aug, [place] [address] [address] Aug, Cannabis abuse F12.10 and Co ntrolled substance agreement terminated Z91.14 [place] [address] [place] [id number] [address] [place] [id number] 28 Jul, 2018 Chronic pain syndrome G89.4 ; Bilateral low back pain, with sciatica presence unspecified M54.5 ; Chronic prescription opiate use Z79.899 ; Essential hypertension I10 ; Hyperlipidemia, unspecified hyperlipidemia E78.5 ; CKD (chronic kidney disease) stage 3, GFR 30-59 ml/min N18.3 and Allergic rhinitis J30.9 [place] [address] [place] [id number] [place] [phone] Jul, Chronic pain syndrome G89.4 and Anxiety F41.9 [place] [address] [place] [id number] [address] [place] [phone] Jul, Screening for breast cancer Z12.31 and Major depressive disorder, recurrent episode, unspecified severity F33.9 [place] [address] [place] [id number] [address] [place] [address] Jun, Chronic pain syndrome G89.4 and Anxiety F41.9 [place] [address] [place] [id number] [address] [place] [phone] May, Chronic pain syndrome G89.4 and Anxiety F41.9 [place] [address] [place] [id number] [address] [place] [phone] Apr, Anxiety F41.9 [place] [address] [place] [id number] [address] Apr, Chronic prescription opiate use Z79.899 ; Chronic pain syndrome G89.4 ; Essential hypertension I10 ; Allergic rhinitis J30.9 and CKD (chronic kidney disease) stage 3, GFR 30-59 ml/min N18.3 [place] [address] [place] [id number] [address] [place] [phone] Apr, [place] [address] [place] [id number] [address] [place] [phone] March, Anxiety F41.9 and Chronic pa in syndrome G89.4 [place] [address] [facility] [id number] [address] [place] [phone] March, CKD (chronic kidney disease) stage 3, GFR 30-59 ml/min N18.3 ; B12 deficiency E53.8 and Hyperlipidemia, unspecified hyperlipidemia E78.5 [place] [address] [facility] [id number] [address] [place] [phone] March, Anxiety F41.9 and Chronic pa in syndrome G89.4 [place] [address] [address] Feb, Anxiety F41.9 and Chronic pa in syndrome G89.4 [place] [address] [address] Jan, B12 deficiency E53.8 [place] [address] [address] Jan, [place] [address] [address] Jan, Anxiety F41.9 ; Chronic pain syndrome G89.4 and Essential hypertension I10 [place] [address] [address] Jan, CKD (chronic kidney disease) stage 3, [...] of right shoulder joint M75.51 [place] [address] [address] 28 Dec, 2017 Essential hypertension I10 [place] [address] [address] 15 Dec, 2017 Chronic pain syndrome G89.4 [place] [address] [address] Dec, Chronic pain syndrome G89.4 [place] [address] [address] Nov, [place] [address] [address] Nov, Chronic pain syndrome G89.4 and Anxiety F41.9 [place] [address] [facility] [id number] [address] [place] [address] Oct, Chronic pain syndrome G89.4 ; Other constipation K59.09 and Chronic prescription opiate use Z79.899 [facility] [address] [facility] [id number] [address] [place] [phone] Oct, Chronic pain syndrome G89.4 and Anxiety F41.9 [place] [address] [facility] [id number] [address] [place] [phone] Sep, Essential hypertension I10 [place] [address] [facility] [id number] [address] [place] [phone] 16 Sep, 2017 Chronic pain syndrome G89.4 and Anxiety F41.9 [place] [address] [facility] [id number] [address] [place] [id number] Aug, Chronic pain syndrome G89.4 and Anxiety F41.9 [place] [address] [place] [id number] [address] [place] [phone] Jul, Essential hypertension I10 [place] [address] [facility] [id number] [address] [place] [phone] 22 Jul, 2017 Chronic obstructive pulmonar y disease, unspecified COPD type J44.9 [place] [address] [facility] [id number] [address] [place] [phone] Jul, Chronic pain syndrome G89.4 and Anxiety F41.9 [place] [address] [place] [id number] [address] [place] [id number] 13 Jul, 2017 Chronic pain syndrome G89.4 ; Essential hypertension I10 ; Fibromyalgia M79.7 ; CKD (chronic kidney disease) stage 3, GFR 30-59 ml/min N18.3 ; Subacromial bursitis, right M75.51 and Goals of care, co unseling/discussion Z71.89 [place] [address] [facility] [id number] [address] [place] [id number] Jun, Chronic pain syndrome G89.4 and Anxiety F41.9 [place] [address] [id number] [address] [place] [phone] May, Chronic pain syndrome G89.4 and Anxiety F41.9 [facility] [address] [facility] [id number] [address] [place] [phone] Apr, Chronic pain syndrome G89.4 and Anxiety F41.9 [facility] [address] [facility] [id number] [address] [place] [address] Apr, Drug induced constipation K5 9.03 ; Chronic pain syndrome G89.4 and CKD (chronic kidney disease) stage 3, GFR 30-59 ml/min N18.3 [facility] [address] [facility] [id number] [address] [place] [phone] Apr, Chronic pain syndrome G89.4 and Anxiety F41.9 [place] [address] [facility] [id number] [address] [place] [address] March, Chronic pain syndrome G89.4 and Anxiety F41.9 [facility] [address] [facility] [id number] [address] [place] [phone] March, Decreased GFR R94.4 [facility] [address] [facility] [id number] [address] [place] [id number] Feb, [facility] [address] [facility] [id number] [address] [place] [id number] Feb, Chronic pain syndrome G89.4 and Anxiety F41.9 [facility] [address] [facility] [id number] [address] [place] [phone] Jan, Decreased GFR R94.4 [facility] [address] [facility] [id number] [address] [place] [phone] Jan, Decreased GFR R94.4 [facility] [address] [facility] [id number] [address] [place] [phone] Jan, Allergic rhinitis J30.9 ; Es sential hypertension I10 ; Major depressive disorder, recurrent episode, unspecified severity F33.9 and Primary insomnia F51.01 [facility] [address] [place] [id number] [address] [place] [phone] Jan, Acute right-sided thoracic b ack pain M54.6 ; Subacromial bursitis of right shoulder joint M75.51 ; Chronic pain syndrome G89.4 and Anxiety F41.9 [place] [address] [place] [id number] [address] [place] [phone] Jan, Decreased GFR R94.4 [place] [address] [place] [id number] [address] [place] [id number] Dec, Decreased GFR R94.4 [place] [address] [place] [id number] [place] [phone] Dec, Decreased GFR R94.4 [place] [address] [address] Dec, Decreased GFR R94.4 [place] [address] [place] [id number] [place] [address] Dec, Decreased GFR R94.4 [place] [address] [address] Dec, Anxiety F41.9 and Bilateral low back pain, with sciatica presence unspecified M54.5 [place] [address] [address] Dec, Thrombocytosis D47.3 ; Hyper lipidemia, unspecified hyperlipidemia E78.5 ; Need for hepatitis C screening test Z11.59 and B12 deficiency E53.8 [place] [address] [place] [id number] [address] [place] [address] Nov, Need for hepatitis C screeni ng test Z11.59 [place] [address] [place] [id number] [place] [address] Nov, Anxiety F41.9 and Bilateral low back pain, with sciatica presence unspecified M54.5 [place] [address] [place] [id number] [address] [place] [address] Oct, Bilateral low back pain, wit h sciatica presence unspecified M54.5 ; Chronic prescription opiate use Z79.899 ; Anxiety F41.9 ; Essential hypertension I10 ; Hyperlipidemia, unspecified hyperlipidemia E78.5 ; Health care maintenance Z00.00 and Thrombocytosis D47.3 [place] [address] [address] Sep, [facility] [address] [address] Sep, [place] [address] [address] Aug, [place] [address] [address] Jul, B12 deficiency E53.8 [place] [address] [address] Jul, [place] [address] [address] Jul, Essential hypertension I10 ; Chronic pain syndrome G89.4 ; Anxiety F41.9 ; Screening for breast cancer Z12.39 ; Atherosclerosis of [place] coronary artery of [place] heart without angina pectoris I25.10 ; Major depressive disorder, recurrent episode, unspecified severity F33.9 ; Primary insomnia F51.01 and Allergic rhinitis J30.9 [place] [address] [place] [id number] [address] [place] [address] Jun, [facility] [address] [place] [id number] [address] [place] [address] Jun, Leg wound, right, initial en counter S81.801A and Encounter for immunization Z23 [place] [address] [place] [id number] [address] [place] [address] Jun, Open wound of right ear, uns pecified open wound type, initial encounter S01.301A [place] [address] [place] [id number] [address] [place] [address] May, B12 deficiency E53.8 [facility] [id number] [place] [address] May, [facility] [address] [place] [id number] [address] [place] [address] May, [facility] [address] [address] May, Chronic pain syndrome G89.4 ; Chronic prescription opiate use Z79.899 ; Allergic rhinitis J30.9 ; Essential hypertension I10 and Non-healing skin lesion L98.9 [place] [address] [address] Apr, [place] [address] [address] March, [facility] [address] [address] Feb, [facility] [address] [address] Feb, [place] [address] [address] Feb, Chronic pain syndrome G89.4 ; Anxiety [...] J44.9 [facility] [address] [place] [id number] [address] [place] [address] Jan, [facility] [address] [address] Jan, Essential hypertension I10 [place] [address] [facility] [id number] [address] [place] [address] 11 Jan, 2016 [facility] [address] [facility] [id number] [address] [place] [phone] Jan, [facility] [address] [facility] [id number] [address] [place] [address] Jan, [facility] [address] [facility] [id number] [address] [place] [address] Dec, [facility] [address] [facility] [id number] [address] [place] [address] Dec, Essential hypertension I10 [facility] [address] [facility] [id number] [place] [address] Dec, [facility] [address] [facility] [id number] [place] [address] Dec, B12 deficiency E53.8 and Ess ential hypertension I10 [facility] [address] [facility] [id number] [address] [place] [address] Dec, [facility] [address] [facility] [id number] [address] Nov, Right shoulder pain M25.511 [facility] [address] [address] Nov, Right shoulder pain M25.511 [facility] [address] [facility] [id number] [address] [place] [address] Nov, Essential hypertension I10 a nd B12 deficiency E53.8 [facility] [address] [facility] [id number] [address] [place] [address] 14 Nov, 2015 Major depressive disorder, r ecurrent episode, unspecified severity F33.9 ; Anxiety F41.9 ; Chronic pain syndrome G89.4 ; Essential hypertension I10 ; Hyperlipidemia, unspecified hyperlipidemia E78.5 ; Chronic prescription opiate use Z79.899 ; Allergic rhinitis J30.9 ; B12 deficiency E53.8 and Right shoulder pain M25.511 [facility] [address] [id number] [address] [place] [address] Oct, [facility] [address] [id number] [address] [place] [address] Oct, [facility] [address] [facility] [id number] [address] [place] [address] Sep, [facility] [address] [id number] [address] [place] [address] Sep, [facility] [address] [facility] [id number] [address] [place] [id number] Aug, [facility] [address] [facility] [id number] [address] [place] [address] Aug, [facility] [address] [place] [id number] [address] [place] [address] Aug, [facility] [address] [place] [id number] [address] [place] [address] Aug, Other constipation K59.09 ; Hyperlipidemia, unspecified hyperlipidemia E78.5 ; Essential hypertension I10 ; Primary insomnia F51.01 ; Anxiety F41.9 ; Chronic pain syndrome G89.4 ; Right shoulder pain M25.511 and Acute cystitis without hematuria N30.00 [facility] [address] [place] [id number] [address] [place] [address] 16 Jul, 2015 [facility] [address] [facility] [id number] [address] [place] [address] Jul, [facility] [address] [facility] [id number] [address] [place] [address] Jun, [facility] [address] [place] [id number] [address] [place] [address] Jun, [facility] [address] [facility] [id number] [address] [place] [phone] Jun, [facility] [address] [facility] [id number] [address] [place] [address] May, [facility] [address] [id number] [address] [place] [address] May, Other chronic pain 338.29 ; Hypertension 401.9 and Constipation due to opioid therapy 564.09 [facility] [address] [id number] [address] [place] [id number] 17 May, 2015 [facility] [address] [id number] [address] [place] [phone] May, [facility] [address] [id number] [address] [place] [id number] Apr, [facility] [address] [id number] [address] [place] [id number] Apr, Unspecified essential hypert ension 401.9 [facility] [address] [id number] [address] [place] [phone] Apr, [facility] [address] [id number] [address] [place] [id number] Apr, [facility] [address] [id number] [address] [place] [phone] Apr, [facility] [address] [id number] [address] [place] [phone] Apr, [facility] [address] [id number] [address] [place] [id number] Apr, [facility] [address] [id number] [address] [place] [id number] Apr, [facility] [address] [id number] [address] [place] [phone] March, Unspecified essential hypert ension 401.9 [facility] [address] [id number] [address] [place] [id number] March, [facility] [address] [id number] [address] [place] [id number] March, [facility] [address] [id number] [address] [place] [address], [place] [id number] 14 Feb, 2015 [facility] [address] [id number] [address] [place] [address], [place] [phone] Feb, [facility] [address] [id number] [address] [place] [address], [place] [id number] Jan, [facility] [address] [id number] [address] [place] [address], [place] [id number] Jan, [facility] [address] [id number] [address] [place] [address], [place] [id number] Jan, [facility] [address] [id number] [address] [place] [address], [place] [address] Jan, [facility] [address] [id number] [address] [place] [address], [place] [address] Jan, [facility] [address] [id number] [address] [place] [address], [place] [address] Jan, [facility] [address] [id number] [address] [place] [address], [place] [address] Jan, [facility] [address] [id number] [address] [place] [address], [place] [phone] 16 Dec, 2014 [facility] [address] [id number] [address] [place] [address], [place] [address] Dec, [facility] [address] [id number] [address] [place] [address], [place] [id number] Dec, [facility] [address] [id number] [address] [place] [address], [place] [id number] Nov, [facility] [address] [id number] [address] [place] [address], [place] [address] Nov, [facility] [address] [id number] [address] [place] [address], [place] [address] Oct, [facility] [address] [id number] [address] [place] [id number] 16 Oct, 2014 [facility] [address] [id number] [address] [place] [address], [place] [id number] Oct, [facility] [address] [id number] [address] [place] [address], [place] [address] Oct, [facility] [address] [id number] [address] [place] [address], [place] [address] Oct, [facility] [address] [id number] [address] [place] [address], [place] [address] Oct, [facility] [address] [id number] [address] [place] [address], [place] [address] Oct, [facility] [address] [id number] [address] [place] [address], [place] [address] Oct, [facility] [address] [id number] [address] [place] [address], [place] [address] Sep, [facility] [address] [id number] [address] [place] [address], [place] [address] Sep, [facility] [address] [id number] [address] [place] [address], [place] [address] Sep, [facility] [address] [id number] [address] [place] [address], [place] [address] Sep, [facility] [address] [id number] [address] [place] [address], [place] [address] Sep, [facility] [address] [id number] [address] [place] [address] Sep, [facility] [address] [id number] [address] [place] [address], [place] [address] Aug, [facility] [address] [id number] [address] [place] [address], [place] [address] Aug, [facility] [address] [id number] [address] [place] [address], [place] [address] Aug, [facility] [address] [id number] [address] [place] [address], [place] [address] Aug, [facility] [address] [id number] [address] [place] [address], [place] [address] Aug, [facility] [address] [id number] [address] [place] [address], [place] [address] Aug, [facility] [address] [id number] [address] [place] [address], [place] [address] Aug, [facility] [address] [id number] [address] [place] [address], [place] [address] Aug, [facility] [address] [id number] [address] [place] [address], [place] [address] Aug, [facility] [address] [id number] [address] [place] [address], [place] [address] Aug, [facility] [address] [id number] [address] [place] [address], [place] [address] Jul, [facility] [address] [id number] [address] [place] [address], [place] [address] Jul, [facility] [address] [id number] [address] [place] [address], [place] [address] Jul, [facility] [address] [id number] [address] [place] [address], [place] [address] Jul, [facility] [address] [id number] [address] [place] [address], [place] [address] Jul, [facility] [address] [id number] [address] [place] [address], [place] [address] Jul, [facility] [address] [id number] [address] [place] [address], [place] [address] Jun, [facility] [address] [id number] [address] [place] [address], [place] [address] Jun, [facility] [address] [id number] [address] [place] [address], [place] [address] Jun, [facility] [address] [id number] [facility] [place] [address] Jun, [facility] [address] [id number] [facility] [place] [address] Jun, [facility] [address] [id number] [facility] [place] [address] Jun, [facility] [address] [id number] [address] [place] [address], [place] [address] May, [facility] [address] [id number] [address] [place] [address], [place] [address] May, [facility] [address] [id number] [address] [place] [address], [place] [address] May, [facility] [address] [id number] [address] [place] [address], [place] [address] May, [facility] [address] [id number] [address] [place] [address], [place] [address] May, [facility] [address] [id number] [address] [place] [address], [place] [address] Apr, [facility] [address] [id number] [address] [place] [address], [place] [address] Apr, [facility] [address] [id number] [address] [place] [address], [place] [address] Apr, [facility] [address] [id number] [address] [place] [address], [place] [address] Apr, [facility] [address] [id number] [address] [place] [address], [place] [address] March, [facility] [address] [id number] [address] [place] [address], [place] [address] March, [facility] [address] [id number] [address] [place] [address], [place] [address] March, [facility] [address] [id number] [facility] [place] [address] March, [facility] [address] [id number] [address] [place] [address], [place] [address] March, [facility] [address] [id number] [address] [place] [address], [place] [address] March, [facility] [address] [id number] [address] [place] [address], [place] [address] Feb, [facility] [address] [id number] [address] [place] [address], [place] [address] Feb, [facility] [address] [id number] [address] [place] [address], [place] [address] Feb, [facility] [address] [id number] [address] [place] [address], [place] [address] Feb, [facility] [address] [id number] [address] [place] [address], [place] [address] Feb, [facility] [address] [id number] [address] [place] [address], [place] [address] Feb, [facility] [address] [id number] [address] [place] [address], [place] [address] Feb, [facility] [address] [id number] [address] [place] [address], [place] [address] Feb, [facility] [address] [id number] [address] [place] [address], [place] [address] Jan, [facility] [address] [id number] [address] [place] [address], [place] [address] Jan, [facility] [address] [id number] [address] [place] [address], [place] [address] Jan, [facility] [address] [id number] [address] [place] [address], [place] [address] Jan, [facility] [address] [id number] [address] [place] [address], [place] [address] Jan, [facility] [address] [id number] [address] [place] [address], [place] [address] Jan, [facility] [address] [id number] [address] [place] [address], [place] [address] Dec, [facility] [address] [id number] [address] [place] [address], [place] [address] Dec, [facility] [address] [id number] [address] [place] [address], [place] [address] Nov, [facility] [address] [id number] [address] [place] [address], [place] [address] Nov, [facility] [address] [id number] [address] [place] [address], [place] [address] Nov, [facility] [address] [id number] [address] [place] [address], [place] [address] Nov, [facility] [address] [id number] [address] [place] [address], [place] [address] Nov, [facility] [address] [id number] [address] [place] [address], [place] [address] Nov, [facility] [address] [id number] [address] [place] [address], [place] [address] Nov, [facility] [address] [id number] [address] [place] [address], [place] [address] Nov, [facility] [address] [id number] [address] [place] [address], [place] [address] Nov, [facility] [address] [id number] [address] [place] [address], [place] [address] Nov, [facility] [address] [id number] [address] [place] [address], [place] [address] Nov, [facility] [address] [id number] [address] [place] [address], [place] [address] Nov, [facility] [address] [id number] [address] [place] [address] Nov, [facility] [address] [id number] [address] [place] [address] Nov, [facility] [address] [id number] [address] [place] [address] Nov, [facility] [address] [id number] [address] [place] [address] Oct, [facility] [address] [id number] [address] [place] [address] Oct, [facility] [address] [id number] [address] [place] [address] Oct, [facility] [address] [id number] [address] [place] [address] Oct, [facility] [address] [id number] [address] [place] [address] Oct, [facility] [address] [id number] [address] [place] [address] Oct, [facility] [address] [id number] [address] [place] [address] Oct, [facility] [address] [id number] [address] [place] [address] Oct, [facility] [address] [id number] [address] [place] [address] Oct, [facility] [address] [id number] [address] [place] [address] Aug, [facility] [address] [id number] [address] [place] [address] Aug, IMMUNIZATIONS No Known Immunizations SOCIAL HISTORY [...] by Dr. Troy Michelle pain specialist in [place], [place] Medical History Chronic low back pain [...]
--- OUTSIDE RECORDS SUMMARY | 2020-06-19 02:12 | XMS REPORT ---
Author Author ARMANDO Mahsavirgen LOCK Organization [facility] Address [address] [place] [address] Care Team Providers Care Assistant Auditor Name Role Phone ARMANDONYASIA DIAZY Unavailable PROBLEMS Type Condition ICD9-CM Code ISX78-IH Code Onset Dates Condition S tatus SNOMED Code Problem Other constipation K59.09 Active 1 [id number] Problem Primary insomnia F51.01 Active 193 325337 Problem Chronic pain syndrome G89.4 Active 008484454 Problem Essential hypertension I10 Active 43654916 Problem Anxiety F41.9 Active 72084124 Problem Major depressive disorder, recurrent episode, un specified severity F33.9 Active 75257568 Problem Atherosclerosis of [place] co ronary artery of [place] heart without angina pectoris I25.10 Active [id number] Problem Bilateral low back pain, with sciatica presence unspecifie d M54.5 Active 139610519 Problem Allergic rhinitis J30.9 Active 61 860723 Problem Fibromyalgia M79.7 Active 7196577 7 Problem Degenerative disc disease, thoracic M51.34 Active 78636558 Problem B12 deficiency E53.8 Active 70374 4004 Problem Degenerative disc disease, cervical M50.30 Active 54962852 Problem Hyperlipidemia, unspecified hyperlipidemia E78.5 Active 47922358 Problem GERD (gastroesophageal reflux disease) K21.9 Active 523165577 Problem Chronic obstructive pulmonary disease, unspecified COPD ty pe J44.9 Active 54296609 Problem CKD (chronic kidney disease) stage 3, GFR 30-59 ml/min N18.3 Active 685557303 Problem Cannabis abuse F12.10 Active 38163 009 ALLERGIES No Information ENCOUNTERS Encounter Location Date Diagnosis [facility] [address] [facility] [id number] [address] [place] [address] Apr, B12 deficiency E53.8 [facility] [address] [facility] [id number] [address] [place] [address] Jan, Periumbilical hernia K42.9 ; CKD (chronic kidney disease) stage 3, GFR 30-59 ml/min N18.3 ; Essential hypertension I10 ; GERD (gastroesophageal reflux disease) K21.9 ; Hyperlipidemia, unspecified hyperlipidemia E78.5 and Major depressive disorder, recurrent episode, unspecified severity F33.9 [place] [address] [id number] [address] [place] [address] Dec, Anxiety F41.9 [place] [address] [id number] [address] [place] [address] Nov, Elevated platelet count R79. 89 [place] [address] [id number] [address] [place] [address] Nov, [place] [address] [facility] [id number] [address] [place] [address] Nov, Elevated platelet count R79. 89 [place] [address] [facility] [id number] [address] [place] [address] Nov, Anxiety F41.9 [place] [address] [id number] [address] [place] [address] Nov, Bilateral low back pain, wit h sciatica presence unspecified M54.5 ; Cervicalgia M54.2 ; Degenerative disc disease, cervical M50.30 and Degenerative disc disease, thoracic M51.34 [place] [address] [place] [id number] [address] [place] [address] Nov, Chronic pain syndrome G89.4 and Bilateral low back pain, with sciatica presence unspecified M54.5 [place] [address] [place] [id number] [address] [place] [address] Oct, Umbilical hernia without obs truction and without gangrene K42.9 [place] [address] [facility] [id number] [address] [place] [address] Oct, Chronic pain syndrome G89.4 [place] [address] [place] [id number] [address] [place] [address] Oct, Chronic pain syndrome G89.4 and Anxiety F41.9 [place] [address] [place] [id number] [address] [place] [address] 12 Oct, 2018 Elevated platelet count R79. 89 [place] [address] [place] [id number] [address] [place] [address] 10 Oct, 2018 CKD (chronic kidney disease) stage 3, GFR 30-59 ml/min N18.3 ; Other chest pain R07.89 ; Acute midline thoracic back pain M54.6 ; Essential hypertension I10 and History of osteoporosis Z87.39 [place] [id number] [place] [address] 29 Sep, 2018 Chronic pain syndrome G89.4 [place] [address] [place] [id number] [place] [phone] 16 Sep, 2018 [place] [address] [address] Sep, Anxiety F41.9 and Chronic pa in syndrome G89.4 [place] [address] [place] [id number] [address] [place] [phone] 18 Aug, 2018 Chronic pain syndrome G89.4 and Anxiety F41.9 [place] [address] [place] [id number] [address] [place] [address] Aug, [place] [address] [address] Aug, Cannabis abuse F12.10 and Co ntrolled substance agreement terminated Z91.14 [place] [address] [place] [id number] [address] [place] [address] 28 Jul, 2018 Chronic pain syndrome G89.4 ; Bilateral low back pain, with sciatica presence unspecified M54.5 ; Chronic prescription opiate use Z79.899 ; Essential hypertension I10 ; Hyperlipidemia, unspecified hyperlipidemia E78.5 ; CKD (chronic kidney disease) stage 3, GFR 30-59 ml/min N18.3 and Allergic rhinitis J30.9 [place] [address] [place] [id number] [place] [address] Jul, Chronic pain syndrome G89.4 and Anxiety F41.9 [place] [address] [place] [id number] [address] [place] [address] Jul, Screening for breast cancer Z12.31 and Major depressive disorder, recurrent episode, unspecified severity F33.9 [place] [address] [place] [id number] [address] [place] [address] Jun, Chronic pain syndrome G89.4 and Anxiety F41.9 [place] [address] [place] [id number] [address] [place] [address] May, Chronic pain syndrome G89.4 and Anxiety F41.9 [place] [address] [place] [id number] [address] [place] [address] Apr, Anxiety F41.9 [place] [address] [place] [id number] [place] [address] Apr, Chronic prescription opiate use Z79.899 ; Chronic pain syndrome G89.4 ; Essential hypertension I10 ; Allergic rhinitis J30.9 and CKD (chronic kidney disease) stage 3, GFR 30-59 ml/min N18.3 [place] [address] [place] [id number] [address] [place] [address] Apr, [place] [address] [place] [id number] [address] [place] [address] March, Anxiety F41.9 and Chronic pa in syndrome G89.4 [place] [address] [facility] [id number] [address] [place] [address] March, CKD (chronic kidney disease) stage 3, GFR 30-59 ml/min N18.3 ; B12 deficiency E53.8 and Hyperlipidemia, unspecified hyperlipidemia E78.5 [place] [address] [facility] [id number] [address] [place] [address] March, Anxiety F41.9 and Chronic pa in syndrome G89.4 [place] [address] [address] Feb, Anxiety F41.9 and Chronic pa in syndrome G89.4 [place] [address] [address] Jan, B12 deficiency E53.8 [place] [address] [address] Jan, [place] [address] [address] Jan, Anxiety F41.9 ; Chronic pain syndrome G89.4 and Essential hypertension I10 [place] [address] [address] Jan, CKD (chronic kidney disease) stage 3, [...] Subacromial bursitis of right shoulder joint M75.51 [place] [address] [address] 28 Dec, 2017 Essential hypertension I10 [place] [address] [address] 15 Dec, 2017 Chronic pain syndrome G89.4 [place] [address] [address] Dec, Chronic pain syndrome G89.4 [place] [address] [address] Nov, [place] [address] [address] Nov, Chronic pain syndrome G89.4 and Anxiety F41.9 [place] [address] [facility] [id number] [address] [place] [address] Oct, Chronic pain syndrome G89.4 ; Other constipation K59.09 and Chronic prescription opiate use Z79.899 [facility] [address] [facility] [id number] [address] [place] [address] Oct, Chronic pain syndrome G89.4 and Anxiety F41.9 [place] [address] [facility] [id number] [address] [place] [address] Sep, Essential hypertension I10 [place] [address] [facility] [id number] [address] [place] [address] 16 Sep, 2017 Chronic pain syndrome G89.4 and Anxiety F41.9 [place] [address] [facility] [id number] [address] [place] [address] Aug, Chronic pain syndrome G89.4 and Anxiety F41.9 [place] [address] [place] [id number] [address] [place] [address] Jul, Essential hypertension I10 [place] [address] [facility] [id number] [address] [place] [address] 22 Jul, 2017 Chronic obstructive pulmonar y disease, unspecified COPD type J44.9 [place] [address] [facility] [id number] [address] [place] [address] Jul, Chronic pain syndrome G89.4 and Anxiety F41.9 [place] [address] [place] [id number] [address] [place] [address] 13 Jul, 2017 Chronic pain syndrome G89.4 ; Essential hypertension I10 ; Fibromyalgia M79.7 ; CKD (chronic kidney disease) stage 3, GFR 30-59 ml/min N18.3 ; Subacromial bursitis, right M75.51 and Goals of care, co unseling/discussion Z71.89 [place] [address] [facility] [id number] [address] [place] [address] Jun, Chronic pain syndrome G89.4 and Anxiety F41.9 [place] [address] [id number] [address] [place] [address] May, Chronic pain syndrome G89.4 and Anxiety F41.9 [facility] [address] [facility] [id number] [address] [place] [address] Apr, Chronic pain syndrome G89.4 and Anxiety F41.9 [facility] [address] [facility] [id number] [address] [place] [address] Apr, Drug induced constipation K5 9.03 ; Chronic pain syndrome G89.4 and CKD (chronic kidney disease) stage 3, GFR 30-59 ml/min N18.3 [facility] [address] [facility] [id number] [address] [place] [address] Apr, Chronic pain syndrome G89.4 and Anxiety F41.9 [place] [address] [facility] [id number] [address] [place] [address] March, Chronic pain syndrome G89.4 and Anxiety F41.9 [facility] [address] [facility] [id number] [address] [place] [address] March, Decreased GFR R94.4 [facility] [address] [facility] [id number] [address] [place] [address] Feb, [facility] [address] [facility] [id number] [address] [place] [address] Feb, Chronic pain syndrome G89.4 and Anxiety F41.9 [facility] [address] [facility] [id number] [address] [place] [address] Jan, Decreased GFR R94.4 [facility] [address] [facility] [id number] [address] [place] [address] Jan, Decreased GFR R94.4 [facility] [address] [facility] [id number] [address] [place] [address] Jan, Allergic rhinitis J30.9 ; Es sential hypertension I10 ; Major depressive disorder, recurrent episode, unspecified severity F33.9 and Primary insomnia F51.01 [facility] [address] [place] [id number] [address] [place] [address] Jan, Acute right-sided thoracic b ack pain M54.6 ; Subacromial bursitis of right shoulder joint M75.51 ; Chronic pain syndrome G89.4 and Anxiety F41.9 [place] [address] [place] [id number] [address] [place] [address] Jan, Decreased GFR R94.4 [place] [address] [place] [id number] [address] [place] [address] Dec, Decreased GFR R94.4 [place] [address] [place] [id number] [place] [address] Dec, Decreased GFR R94.4 [place] [address] [address] Dec, Decreased GFR R94.4 [place] [address] [place] [id number] [place] [address] Dec, Decreased GFR R94.4 [place] [address] [address] Dec, Anxiety F41.9 and Bilateral low back pain, with sciatica presence unspecified M54.5 [place] [address] [address] Dec, Thrombocytosis D47.3 ; Hyper lipidemia, unspecified hyperlipidemia E78.5 ; Need for hepatitis C screening test Z11.59 and B12 deficiency E53.8 [place] [address] [place] [id number] [address] [place] [address] Nov, Need for hepatitis C screeni ng test Z11.59 [place] [address] [place] [id number] [place] [address] Nov, Anxiety F41.9 and Bilateral low back pain, with sciatica presence unspecified M54.5 [place] [address] [place] [id number] [address] [place] [address] Oct, Bilateral low back pain, wit h sciatica presence unspecified M54.5 ; Chronic prescription opiate use Z79.899 ; Anxiety F41.9 ; Essential hypertension I10 ; Hyperlipidemia, unspecified hyperlipidemia E78.5 ; Health care maintenance Z00.00 and Thrombocytosis D47.3 [place] [address] [address] Sep, [facility] [address] [address] Sep, [place] [address] [address] Aug, [place] [address] [address] Jul, B12 deficiency E53.8 [place] [address] [address] Jul, [place] [address] [address] Jul, Essential hypertension I10 ; Chronic pain syndrome G89.4 ; Anxiety F41.9 ; Screening for breast cancer Z12.39 ; Atherosclerosis of [place] coronary artery of [place] heart without angina pectoris I25.10 ; Major depressive disorder, recurrent episode, unspecified severity F33.9 ; Primary insomnia F51.01 and Allergic rhinitis J30.9 [place] [address] [place] [id number] [address] [place] [address] Jun, [facility] [address] [place] [id number] [address] [place] [address] Jun, Leg wound, right, initial en counter S81.801A and Encounter for immunization Z23 [place] [address] [place] [id number] [address] [place] [address] Jun, Open wound of right ear, uns pecified open wound type, initial encounter S01.301A [place] [address] [place] [id number] [address] [place] [address] May, B12 deficiency E53.8 [facility] [id number] [place] [address] May, [facility] [address] [place] [id number] [address] [place] [address] May, [facility] [address] [address] May, Chronic pain syndrome G89.4 ; Chronic prescription opiate use Z79.899 ; Allergic rhinitis J30.9 ; Essential hypertension I10 and Non-healing skin lesion L98.9 [place] [address] [address] Apr, [place] [address] [address] March, [facility] [address] [address] Feb, [facility] [address] [address] Feb, [place] [address] [address] Feb, Chronic pain syndrome G89.4 ; Anxiety F41.9 ; B12 deficiency E53.8 ; Allergic rhinitis J30.9 ; Fibromyalgia M79.7 ; Actinic keratosis L57.0 ; Skin rash R21 ; Open wound of right ear, unspecified open wound type, initial encounter S01.301A ; Subacromial bursitis, right M75.51 ; GERD (gastroesophageal reflux disease) K21.9 and Chronic obstructive pulmonary disease, unspecified COPD type J44.9 [facility] [address] [place] [id number] [address] [place] [address] Jan, [facility] [address] [address] Jan, Essential hypertension I10 [place] [address] [facility] [id number] [address] [place] [address] 11 Jan, 2016 [facility] [address] [facility] [id number] [address] [place] [address] Jan, [facility] [address] [facility] [id number] [address] [place] [address] Jan, [facility] [address] [facility] [id number] [address] [place] [address] Dec, [facility] [address] [facility] [id number] [address] [place] [address] Dec, Essential hypertension I10 [facility] [address] [facility] [id number] [place] [address] Dec, [facility] [address] [facility] [id number] [place] [address] Dec, B12 deficiency E53.8 and Ess ential hypertension I10 [facility] [address] [facility] [id number] [address] [place] [address] Dec, [facility] [address] [facility] [id number] [address] Nov, Right shoulder pain M25.511 [facility] [address] [address] Nov, Right shoulder pain M25.511 [facility] [address] [facility] [id number] [address] [place] [address] Nov, Essential hypertension I10 a nd B12 deficiency E53.8 [facility] [address] [facility] [id number] [address] [place] [address] 14 Nov, 2015 Major depressive disorder, r ecurrent episode, unspecified severity F33.9 ; Anxiety F41.9 ; Chronic pain syndrome G89.4 ; Essential hypertension I10 ; Hyperlipidemia, unspecified hyperlipidemia E78.5 ; Chronic prescription opiate use Z79.899 ; Allergic rhinitis J30.9 ; B12 deficiency E53.8 and Right shoulder pain M25.511 [facility] [address] [id number] [address] [place] [address] Oct, [facility] [address] [id number] [address] [place] [address] Oct, [facility] [address] [facility] [id number] [address] [place] [address] Sep, [facility] [address] [id number] [address] [place] [address] Sep, [facility] [address] [facility] [id number] [address] [place] [address] Aug, [facility] [address] [facility] [id number] [address] [place] [address] Aug, [facility] [address] [place] [id number] [address] [place] [address] Aug, [facility] [address] [place] [id number] [address] [place] [address] Aug, Other constipation K59.09 ; Hyperlipidemia, unspecified hyperlipidemia E78.5 ; Essential hypertension I10 ; Primary insomnia F51.01 ; Anxiety F41.9 ; Chronic pain syndrome G89.4 ; Right shoulder pain M25.511 and Acute cystitis without hematuria N30.00 [facility] [address] [place] [id number] [address] [place] [address] 16 Jul, 2015 [facility] [address] [facility] [id number] [address] [place] [address] Jul, [facility] [address] [facility] [id number] [address] [place] [address] Jun, [facility] [address] [place] [id number] [address] [place] [address] Jun, [facility] [address] [facility] [id number] [address] [place] [address] Jun, [facility] [address] [facility] [id number] [address] [place] [address] May, [facility] [address] [id number] [address] [place] [address] May, Other chronic pain 338.29 ; Hypertension 401.9 and Constipation due to opioid therapy 564.09 [facility] [address] [id number] [address] [place] [address] 17 May, 2015 [facility] [address] [id number] [address] [place] [address] May, [facility] [address] [id number] [address] [place] [address] Apr, [facility] [address] [id number] [address] [place] [address] Apr, Unspecified essential hypert ension 401.9 [facility] [address] [id number] [address] [place] [address] Apr, [facility] [address] [id number] [address] [place] [address] Apr, [facility] [address] [id number] [address] [place] [address] Apr, [facility] [address] [id number] [address] [place] [phone] Apr, [facility] [address] [id number] [address] [place] [address] Apr, [facility] [address] [id number] [address] [place] [phone] Apr, [facility] [address] [id number] [address] [place] [address] March, Unspecified essential hypert ension 401.9 [facility] [address] [id number] [address] [place] [phone] March, [facility] [address] [id number] [address] [place] [phone] March, [facility] [address] [id number] [address] [place] [address], [place] [id number] 14 Feb, 2015 [facility] [address] [id number] [address] [place] [address], [place] [id number] Feb, [facility] [address] [id number] [address] [place] [address], [place] [id number] Jan, [facility] [address] [id number] [address] [place] [address], [place] [id number] Jan, [facility] [address] [id number] [address] [place] [address], [place] [id number] Jan, [facility] [address] [id number] [address] [place] [address], [place] [id number] Jan, [facility] [address] [id number] [address] [place] [address], [place] [id number] Jan, [facility] [address] [id number] [address] [place] [address], [place] [id number] Jan, [facility] [address] [id number] [address] [place] [address], [place] [id number] Jan, [facility] [address] [id number] [address] [place] [address], [place] [id number] 16 Dec, 2014 [facility] [address] [id number] [address] [place] [address], [place] [id number] Dec, [facility] [address] [id number] [address] [place] [address], [place] [id number] Dec, [facility] [facility] [address] [id number] [address] [place] [address], [place] [address] Nov, [facility] [address] [id number] [address] [place] [address], [place] [address] Nov, [facility] [address] [id number] [address] [place] [address], [place] [address] Oct, [facility] [address] [id number] [address] [place] [id number] 16 Oct, 2014 [facility] [address] [id number] [address] [place] [address], [place] [address] Oct, [facility] [address] [id number] [address] [place] [address], [place] [address] Oct, [facility] [address] [id number] [address] [place] [address], [place] [address] Oct, [facility] [address] [id number] [address] [place] [address], [place] [address] Oct, [facility] [address] [id number] [address] [place] [address], [place] [address] Oct, [facility] [address] [id number] [address] [place] [address], [place] [address] Oct, [facility] [address] [id number] [address] [place] [address], [place] [address] Sep, [facility] [address] [id number] [address] [place] [address], [place] [address] Sep, [facility] [address] [id number] [address] [place] [address], [place] [address] Sep, [facility] [address] [id number] [address] [place] [address], [place] [address] Sep, [facility] [address] [id number] [address] [place] [address], [place] [address] Sep, [facility] [address] [id number] [address] [place] [address] Sep, [facility] [address] [id number] [address] [place] [address], [place] [address] Aug, [facility] [address] [id number] [address] [place] [address], [place] [address] Aug, [facility] [address] [id number] [address] [place] [address], [place] [address] Aug, [facility] [address] [id number] [address] [place] [address], [place] [address] Aug, [facility] [address] [id number] [address] [place] [address], [place] [address] Aug, [facility] [address] [id number] [address] [place] [address], [place] [address] Aug, [facility] [address] [id number] [address] [place] [address], [place] [address] Aug, [facility] [address] [id number] [address] [place] [address], [place] [address] Aug, [facility] [address] [id number] [address] [place] [address], [place] [address] Aug, [facility] [address] [id number] [address] [place] [address], [place] [address] Aug, [facility] [address] [id number] [address] [place] [address], [place] [address] Jul, [facility] [address] [id number] [address] [place] [address], [place] [address] Jul, [facility] [address] [id number] [address] [place] [address], [place] [address] Jul, [facility] [address] [id number] [address] [place] [address], [place] [address] Jul, [facility] [address] [id number] [address] [place] [address], [place] [address] Jul, [facility] [address] [id number] [address] [place] [address], [place] [address] Jul, [facility] [address] [id number] [address] [place] [address], [place] [address] Jun, [facility] [address] [id number] [address] [place] [address], [place] [address] Jun, [facility] [address] [id number] [address] [place] [address], [place] [address] Jun, [facility] [address] [id number] [facility] [place] [address] Jun, [facility] [address] [id number] [facility] [place] [address] Jun, [facility] [address] [id number] [facility] [place] [address] Jun, [facility] [address] [id number] [address] [place] [address], [place] [address] May, [facility] [address] [id number] [address] [place] [address], [place] [address] May, [facility] [address] [id number] [address] [place] [address], [place] [address] May, [facility] [address] [id number] [address] [place] [address], [place] [address] May, [facility] [address] [id number] [address] [place] [address], [place] [address] May, [facility] [address] [id number] [address] [place] [address], [place] [address] Apr, [facility] [address] [id number] [address] [place] [address], [place] [address] Apr, [facility] [address] [id number] [address] [place] [address], [place] [address] Apr, [facility] [address] [id number] [address] [place] [address], [place] [address] Apr, [facility] [address] [id number] [address] [place] [address], [place] [address] March, [facility] [address] [id number] [address] [place] [address], [place] [address] March, [facility] [address] [id number] [address] [place] [address], [place] [address] March, [facility] [address] [id number] [facility] [address] March, [facility] [address] [id number] [address] [place] [address], [place] [address] March, [facility] [address] [id number] [address] [place] [address], [place] [address] March, [facility] [address] [id number] [address] [place] [address], [place] [address] Feb, [facility] [address] [id number] [address] [place] [address], [place] [address] Feb, [facility] [address] [id number] [address] [place] [address], [place] [address] Feb, [facility] [address] [id number] [address] [place] [address], [place] [address] Feb, [facility] [address] [id number] [address] [place] [address], [place] [address] Feb, [facility] [address] [id number] [address] [place] [address], [place] [address] Feb, [facility] [address] [id number] [address] [place] [address], [place] [address] Feb, [facility] [address] [id number] [address] [place] [address], [place] [address] Feb, [facility] [address] [id number] [address] [place] [address], [place] [address] Jan, [facility] [address] [id number] [address] [place] [address], [place] [address] Jan, [facility] [address] [id number] [address] [place] [address], [place] [address] Jan, [facility] [address] [id number] [address] [place] [address], [place] [address] Jan, [facility] [address] [id number] [address] [place] [address], [place] [address] Jan, [facility] [address] [id number] [address] [place] [address], [place] [address] Jan, [facility] [address] [id number] [address] [place] [address], [place] [address] Dec, [facility] [address] [id number] [address] [place] [address], [place] [address] Dec, [facility] [address] [id number] [address] [place] [address], [place] [address] Nov, [facility] [address] [id number] [address] [place] [address], [place] [address] Nov, [facility] [address] [id number] [address] [place] [address], [place] [address] Nov, [facility] [address] [id number] [address] [place] [address], [place] [address] Nov, [facility] [address] [id number] [address] [place] [address], [place] [address] Nov, [facility] [address] [id number] [address] [place] [address], [place] [address] Nov, [facility] [address] [id number] [address] [place] [address], [place] [address] Nov, [facility] [address] [id number] [address] [place] [address], [place] [address] Nov, [facility] [address] [id number] [address] [place] [address], [place] [address] Nov, [facility] [address] [id number] [address] [place] [address], [place] [address] Nov, [facility] [address] [id number] [address] [place] [address], [place] [address] Nov, [facility] [address] [id number] [address] [place] [address], [place] [address] Nov, [facility] [address] [id number] [address] [place] [address] Nov, [facility] [address] [id number] [address] [place] [address] Nov, [facility] [address] [id number] [address] [place] [address] Nov, [facility] [address] [id number] [address] [place] [address] Oct, [facility] [address] [id number] [address] [place] [address] Oct, [facility] [address] [id number] [address] [place] [address] Oct, [facility] [address] [id number] [address] [place] [address] Oct, [facility] [address] [id number] [address] [place] [address] Oct, [facility] [address] [id number] [address] [place] [address] Oct, [facility] [address] [id number] [address] [place] [address] Oct, [facility] [address] [id number] [address] [place] [address] Oct, [facility] [address] [id number] [address] [place] [address] Oct, [facility] [address] [id number] [address] [place] [address] Aug, [facility] [address] [id number] [address] [place] [address] Aug, IMMUNIZATIONS No Known Immunizations SOCIAL HISTORY [...] by Dr. Troy Michelle pain specialist in [place], [place] Medical History Chronic low back pain [...]
--- OUTSIDE RECORDS SUMMARY | 2020-06-19 02:12 | XMS REPORT ---
Author Author ARMANDO Mahsavirgen LOCK Organization [facility] Address [address] [place] [address] Care Team Providers Care Biological Lab Technician Name Role Phone ARMANDONYASIA DIAZY Unavailable PROBLEMS Type Condition ICD9-CM Code [id number] Code Onset Dates Condition S tatus SNOMED Code Problem Other constipation K59.09 Active 1 [id number] Problem Primary insomnia F51.01 Active 193 627694 Problem Chronic pain syndrome G89.4 Active 524749137 Problem Essential hypertension I10 Active 97566583 Problem Anxiety F41.9 Active 42957309 Problem Major depressive disorder, recurrent episode, un specified severity F33.9 Active 80597197 Problem Atherosclerosis of [place] co ronary artery of [place] heart without angina pectoris I25.10 Active [id number] Problem Bilateral low back pain, with sciatica presence unspecifie d M54.5 Active 723555694 Problem Allergic rhinitis J30.9 Active 61 331955 Problem Fibromyalgia M79.7 Active 8861266 7 Problem Degenerative disc disease, thoracic M51.34 Active 16073169 Problem B12 deficiency E53.8 Active 77615 4004 Problem Degenerative disc disease, cervical M50.30 Active 64455232 Problem Hyperlipidemia, unspecified hyperlipidemia E78.5 Active 59819587 Problem GERD (gastroesophageal reflux disease) K21.9 Active 024745819 Problem Chronic obstructive pulmonary disease, unspecified COPD ty pe J44.9 Active 62847435 Problem CKD (chronic kidney disease) stage 3, GFR 30-59 ml/min N18.3 Active 139947560 Problem Cannabis abuse F12.10 Active 94557 009 ALLERGIES No Information ENCOUNTERS Encounter Location Date Diagnosis [facility] [address] [facility] [place] [id number] [address] [place] [address] Apr, B12 deficiency E53.8 [facility] [address] [facility] [place] [id number] [address] [place] [address] Jan, Periumbilical hernia K42.9 ; CKD (chronic kidney disease) stage 3, GFR 30-59 ml/min N18.3 ; Essential hypertension I10 ; GERD (gastroesophageal reflux disease) K21.9 ; Hyperlipidemia, unspecified hyperlipidemia E78.5 and Major depressive disorder, recurrent episode, unspecified severity F33.9 [place] [address] [id number] [address] [place] [address] Dec, Anxiety F41.9 [place] [address] [id number] [address] [place] [address] Nov, Elevated platelet count R79. 89 [place] [address] [id number] [address] [place] [address] Nov, [place] [address] [facility] [place] [id number] [address] [place] [address] Nov, Elevated platelet count R79. 89 [place] [address] [facility] [place] [id number] [address] [place] [address] Nov, Anxiety F41.9 [place] [address] [id number] [address] [place] [address] Nov, Bilateral low back pain, wit h sciatica presence unspecified M54.5 ; Cervicalgia M54.2 ; Degenerative disc disease, cervical M50.30 and Degenerative disc disease, thoracic M51.34 [place] [address] [place] [id number] [address] [place] [address] Nov, Chronic pain syndrome G89.4 and Bilateral low back pain, with sciatica presence unspecified M54.5 [place] [address] [place] [id number] [address] [place] [address] Oct, Umbilical hernia without obs truction and without gangrene K42.9 [place] [address] [facility] [place] [id number] [address] [place] [address] Oct, Chronic pain syndrome G89.4 [place] [address] [place] [id number] [address] [place] [address] Oct, Chronic pain syndrome G89.4 and Anxiety F41.9 [place] [address] [place] [id number] [address] [place] [address] 12 Oct, 2018 Elevated platelet count R79. 89 [place] [address] [place] [id number] [address] [place] [address] 10 Oct, 2018 CKD (chronic kidney disease) stage 3, GFR 30-59 ml/min N18.3 ; Other chest pain R07.89 ; Acute midline thoracic back pain M54.6 ; Essential hypertension I10 and History of osteoporosis Z87.39 [place] [id number] [place] [address] 29 Sep, 2018 Chronic pain syndrome G89.4 [place] [address] [place] [id number] [place] [address] 16 Sep, 2018 [place] [address] [address] Sep, Anxiety F41.9 and Chronic pa in syndrome G89.4 [place] [address] [place] [id number] [address] [place] [address] 18 Aug, 2018 Chronic pain syndrome G89.4 and Anxiety F41.9 [place] [address] [place] [id number] [address] [place] [address] Aug, [place] [address] [address] Aug, Cannabis abuse F12.10 and Co ntrolled substance agreement terminated Z91.14 [place] [address] [place] [id number] [address] [place] [address] 28 Jul, 2018 Chronic pain syndrome G89.4 ; Bilateral low back pain, with sciatica presence unspecified M54.5 ; Chronic prescription opiate use Z79.899 ; Essential hypertension I10 ; Hyperlipidemia, unspecified hyperlipidemia E78.5 ; CKD (chronic kidney disease) stage 3, GFR 30-59 ml/min N18.3 and Allergic rhinitis J30.9 [place] [address] [place] [address] [place] [address] Jul, Chronic pain syndrome G89.4 and Anxiety F41.9 [place] [address] [place] [id number] [address] [place] [address] Jul, Screening for breast cancer Z12.31 and Major depressive disorder, recurrent episode, unspecified severity F33.9 [place] [address] [place] [id number] [address] [place] [address] Jun, Chronic pain syndrome G89.4 and Anxiety F41.9 [place] [address] [place] [id number] [address] [place] [address] May, Chronic pain syndrome G89.4 and Anxiety F41.9 [place] [address] [place] [id number] [address] [place] [address] Apr, Anxiety F41.9 [place] [address] [place] [id number] [place] [address] Apr, Chronic prescription opiate use Z79.899 ; Chronic pain syndrome G89.4 ; Essential hypertension I10 ; Allergic rhinitis J30.9 and CKD (chronic kidney disease) stage 3, GFR 30-59 ml/min N18.3 [place] [address] [place] [id number] [address] [place] [address] Apr, [place] [address] [place] [id number] [address] [place] [address] March, Anxiety F41.9 and Chronic pa in syndrome G89.4 [place] [address] [facility] [place] [id number] [address] [place] [address] March, CKD (chronic kidney disease) stage 3, GFR 30-59 ml/min N18.3 ; B12 deficiency E53.8 and Hyperlipidemia, unspecified hyperlipidemia E78.5 [place] [address] [facility] [place] [id number] [address] [place] [address] March, Anxiety F41.9 and Chronic pa in syndrome G89.4 [place] [address] [address] Feb, Anxiety F41.9 and Chronic pa in syndrome G89.4 [place] [address] [address] Jan, B12 deficiency E53.8 [place] [address] [address] Jan, [place] [address] [address] Jan, Anxiety F41.9 ; Chronic pain syndrome G89.4 and Essential hypertension I10 [place] [address] [address] Jan, CKD (chronic kidney disease) stage 3, [...] Subacromial bursitis of right shoulder joint M75.51 [place] [address] [address] 28 Dec, 2017 Essential hypertension I10 [place] [address] [address] 15 Dec, 2017 Chronic pain syndrome G89.4 [place] [address] [address] Dec, Chronic pain syndrome G89.4 [place] [address] [address] Nov, [place] [address] [address] Nov, Chronic pain syndrome G89.4 and Anxiety F41.9 [place] [id number] [facility] [place] [id number] [address] [place] [address] Oct, Chronic pain syndrome G89.4 ; Other constipation K59.09 and Chronic prescription opiate use Z79.899 [facility] [address] [facility] [place] [id number] [address] [place] [address] Oct, Chronic pain syndrome G89.4 and Anxiety F41.9 [place] [address] [facility] [place] [id number] [address] [place] [address] Sep, Essential hypertension I10 [place] [address] [facility] [place] [id number] [address] [place] [address] 16 Sep, 2017 Chronic pain syndrome G89.4 and Anxiety F41.9 [place] [address] [facility] [place] [id number] [address] [place] [address] Aug, Chronic pain syndrome G89.4 and Anxiety F41.9 [place] [address] [place] [id number] [address] [place] [address] Jul, Essential hypertension I10 [place] [address] [facility] [place] [id number] [address] [place] [address] 22 Jul, 2017 Chronic obstructive pulmonar y disease, unspecified COPD type J44.9 [place] [address] [facility] [place] [id number] [address] [place] [address] Jul, Chronic pain syndrome G89.4 and Anxiety F41.9 [place] [address] [place] [id number] [address] [place] [address] 13 Jul, 2017 Chronic pain syndrome G89.4 ; Essential hypertension I10 ; Fibromyalgia M79.7 ; CKD (chronic kidney disease) stage 3, GFR 30-59 ml/min N18.3 ; Subacromial bursitis, right M75.51 and Goals of care, co unseling/discussion Z71.89 [place] [address] [facility] [place] [id number] [address] [place] [address] Jun, Chronic pain syndrome G89.4 and Anxiety F41.9 [place] [id number] [id number] [address] [place] [address] May, Chronic pain syndrome G89.4 and Anxiety F41.9 [facility] [address] [facility] [place] [id number] [address] [place] [address] Apr, Chronic pain syndrome G89.4 and Anxiety F41.9 [facility] [address] [facility] [place] [id number] [address] [place] [address] Apr, Drug induced constipation K5 9.03 ; Chronic pain syndrome G89.4 and CKD (chronic kidney disease) stage 3, GFR 30-59 ml/min N18.3 [facility] [address] [facility] [place] [id number] [address] [place] [address] Apr, Chronic pain syndrome G89.4 and Anxiety F41.9 [place] [address] [facility] [place] [id number] [address] [place] [address] March, Chronic pain syndrome G89.4 and Anxiety F41.9 [facility] [address] [facility] [place] [id number] [address] [place] [address] March, Decreased GFR R94.4 [facility] [address] [facility] [place] [id number] [address] [place] [address] Feb, [facility] [address] [facility] [place] [id number] [address] [place] [address] Feb, Chronic pain syndrome G89.4 and Anxiety F41.9 [facility] [address] [facility] [place] [id number] [address] [place] [address] Jan, Decreased GFR R94.4 [facility] [address] [facility] [place] [id number] [address] [place] [address] Jan, Decreased GFR R94.4 [facility] [address] [facility] [place] [id number] [address] [place] [address] Jan, Allergic rhinitis J30.9 ; Es sential hypertension I10 ; Major depressive disorder, recurrent episode, unspecified severity F33.9 and Primary insomnia F51.01 [facility] [address] [place] [id number] [address] [place] [address] Jan, Acute right-sided thoracic b ack pain M54.6 ; Subacromial bursitis of right shoulder joint M75.51 ; Chronic pain syndrome G89.4 and Anxiety F41.9 [place] [address] [place] [id number] [address] [place] [address] Jan, Decreased GFR R94.4 [place] [address] [place] [id number] [address] [place] [address] Dec, Decreased GFR R94.4 [place] [address] [place] [id number] [place] [address] Dec, Decreased GFR R94.4 [place] [address] [address] Dec, Decreased GFR R94.4 [place] [address] [place] [id number] [place] [address] Dec, Decreased GFR R94.4 [place] [address] [address] Dec, Anxiety F41.9 and Bilateral low back pain, with sciatica presence unspecified M54.5 [place] [address] [address] Dec, Thrombocytosis D47.3 ; Hyper lipidemia, unspecified hyperlipidemia E78.5 ; Need for hepatitis C screening test Z11.59 and B12 deficiency E53.8 [place] [address] [place] [id number] [address] [place] [address] Nov, Need for hepatitis C screeni ng test Z11.59 [place] [address] [place] [id number] [place] [address] Nov, Anxiety F41.9 and Bilateral low back pain, with sciatica presence unspecified M54.5 [place] [address] [place] [id number] [address] [place] [address] Oct, Bilateral low back pain, wit h sciatica presence unspecified M54.5 ; Chronic prescription opiate use Z79.899 ; Anxiety F41.9 ; Essential hypertension I10 ; Hyperlipidemia, unspecified hyperlipidemia E78.5 ; Health care maintenance Z00.00 and Thrombocytosis D47.3 [place] [address] [address] Sep, [facility] [address] [address] Sep, [place] [address] [address] Aug, [place] [address] [address] Jul, B12 deficiency E53.8 [place] [address] [address] Jul, [place] [address] [address] Jul, Essential hypertension I10 ; Chronic pain syndrome G89.4 ; Anxiety F41.9 ; Screening for breast cancer Z12.39 ; Atherosclerosis of [place] coronary artery of [place] heart without angina pectoris I25.10 ; Major depressive disorder, recurrent episode, unspecified severity F33.9 ; Primary insomnia F51.01 and Allergic rhinitis J30.9 [place] [address] [place] [id number] [address] [place] [address] Jun, [facility] [address] [place] [id number] [address] [place] [address] Jun, Leg wound, right, initial en counter S81.801A and Encounter for immunization Z23 [place] [address] [place] [id number] [address] [place] [address] Jun, Open wound of right ear, uns pecified open wound type, initial encounter S01.301A [place] [address] [place] [id number] [address] [place] [address] May, B12 deficiency E53.8 [facility] [id number] [place] [address] May, [facility] [address] [place] [id number] [address] [place] [address] May, [facility] [address] [address] May, Chronic pain syndrome G89.4 ; Chronic prescription opiate use Z79.899 ; Allergic rhinitis J30.9 ; Essential hypertension I10 and Non-healing skin lesion L98.9 [place] [address] [address] Apr, [place] [address] [address] March, [facility] [address] [address] Feb, [facility] [address] [address] Feb, [place] [address] [address] Feb, Chronic pain syndrome G89.4 ; Anxiety F41.9 ; B12 deficiency E53.8 ; Allergic rhinitis J30.9 ; Fibromyalgia M79.7 ; Actinic keratosis L57.0 ; Skin rash R21 ; Open wound of right ear, unspecified open wound type, initial encounter S01.301A ; Subacromial bursitis, right M75.51 ; GERD (gastroesophageal reflux disease) K21.9 and Chronic obstructive pulmonary disease, unspecified COPD type J44.9 [facility] [address] [place] [id number] [address] [place] [address] Jan, [facility] [address] [address] Jan, Essential hypertension I10 [place] [address] [facility] [place] [id number] [address] [place] [address] 11 Jan, 2016 [facility] [address] [facility] [place] [id number] [address] [place] [address] Jan, [facility] [address] [facility] [place] [id number] [address] [place] [address] Jan, [facility] [address] [facility] [place] [id number] [address] [place] [address] Dec, [facility] [address] [facility] [place] [id number] [address] [place] [address] Dec, Essential hypertension I10 [facility] [address] [facility] [place] [id number] [place] [address] Dec, [facility] [address] [facility] [place] [id number] [place] [address] Dec, B12 deficiency E53.8 and Ess ential hypertension I10 [facility] [address] [facility] [place] [id number] [address] [place] [address] Dec, [facility] [address] [facility] [place] [id number] [address] Nov, Right shoulder pain M25.511 [facility] [address] [address] Nov, Right shoulder pain M25.511 [facility] [address] [facility] [place] [id number] [address] [place] [address] Nov, Essential hypertension I10 a nd B12 deficiency E53.8 [facility] [address] [facility] [place] [id number] [address] [place] [address] 14 Nov, 2015 Major depressive disorder, r ecurrent episode, unspecified severity F33.9 ; Anxiety F41.9 ; Chronic pain syndrome G89.4 ; Essential hypertension I10 ; Hyperlipidemia, unspecified hyperlipidemia E78.5 ; Chronic prescription opiate use Z79.899 ; Allergic rhinitis J30.9 ; B12 deficiency E53.8 and Right shoulder pain M25.511 [facility] [address] [id number] [address] [place] [address] Oct, [facility] [address] [id number] [address] [place] [address] Oct, [facility] [address] [facility] [place] [id number] [address] [place] [address] Sep, [facility] [address] [id number] [address] [place] [address] Sep, [facility] [address] [facility] [place] [id number] [address] [place] [address] Aug, [facility] [address] [facility] [place] [id number] [address] [place] [address] Aug, [facility] [address] [place] [id number] [address] [place] [address] Aug, [facility] [address] [place] [id number] [address] [place] [address] Aug, Other constipation K59.09 ; Hyperlipidemia, unspecified hyperlipidemia E78.5 ; Essential hypertension I10 ; Primary insomnia F51.01 ; Anxiety F41.9 ; Chronic pain syndrome G89.4 ; Right shoulder pain M25.511 and Acute cystitis without hematuria N30.00 [facility] [address] [place] [id number] [address] [place] [address] 16 Jul, 2015 [facility] [address] [facility] [place] [id number] [address] [place] [address] Jul, [facility] [address] [facility] [place] [id number] [address] [place] [address] Jun, [facility] [address] [place] [id number] [address] [place] [address] Jun, [facility] [address] [facility] [place] [id number] [address] [place] [address] Jun, [facility] [address] [facility] [place] [id number] [address] [place] [address] May, [facility] [address] [id number] [address] [place] [address] May, Other chronic pain 338.29 ; Hypertension 401.9 and Constipation due to opioid therapy 564.09 [facility] [address] [id number] [address] [place] [address] 17 May, 2015 [facility] [address] [id number] [address] [place] [address] May, [facility] [address] [id number] [address] [place] [address] Apr, [facility] [address] [id number] [address] [place] [id number] Apr, Unspecified essential hypert ension 401.9 [facility] [address] [id number] [address] [place] [phone] Apr, [facility] [address] [id number] [address] [place] [phone] Apr, [facility] [address] [id number] [address] [place] [id number] Apr, [facility] [address] [id number] [address] [place] [phone] Apr, [facility] [address] [id number] [address] [place] [phone] Apr, [facility] [address] [id number] [address] [place] [phone] Apr, [facility] [address] [id number] [address] [place] [id number] March, Unspecified essential hypert ension 401.9 [facility] [address] [id number] [address] [place] [id number] March, [facility] [address] [id number] [address] [place] [id number] March, [facility] [address] [id number] [address] [place] [address], [place] [phone] 14 Feb, 2015 [facility] [address] [id number] [address] [place] [address], [place] [phone] Feb, [facility] [address] [id number] [address] [place] [address], [place] [phone] Jan, [facility] [address] [id number] [address] [place] [address], [place] [phone] Jan, [facility] [address] [id number] [address] [place] [address], [place] [phone] Jan, [facility] [address] [id number] [address] [place] [address], [place] [phone] Jan, [facility] [address] [id number] [address] [place] [address], [place] [phone] Jan, [facility] [address] [id number] [address] [place] [address], [place] [phone] Jan, [facility] [facility] [address] [id number] [address] [place] [address], [place] [address] Jan, [facility] [address] [id number] [address] [place] [address], [place] [address] 16 Dec, 2014 [facility] [address] [id number] [address] [place] [address], [place] [address] Dec, [facility] [address] [id number] [address] [place] [address], [place] [address] Dec, [facility] [address] [id number] [address] [place] [address], [place] [address] Nov, [facility] [address] [id number] [address] [place] [address], [place] [address] Nov, [facility] [address] [id number] [address] [place] [address], [place] [address] Oct, [facility] [address] [id number] [address] [place] [address] 16 Oct, 2014 [facility] [address] [id number] [address] [place] [address], [place] [address] Oct, [facility] [address] [id number] [address] [place] [address], [place] [address] Oct, [facility] [address] [id number] [address] [place] [address], [place] [address] Oct, [facility] [address] [id number] [address] [place] [address], [place] [address] Oct, [facility] [address] [id number] [address] [place] [address], [place] [address] Oct, [facility] [address] [id number] [address] [place] [address], [place] [address] Oct, [facility] [address] [id number] [address] [place] [address], [place] [address] Sep, [facility] [address] [id number] [address] [place] [address], [place] [address] Sep, [facility] [address] [id number] [address] [place] [address], [place] [address] Sep, [facility] [address] [id number] [address] [place] [address], [place] [address] Sep, [facility] [address] [id number] [address] [place] [address], [place] [address] Sep, [facility] [address] [id number] [address] [place] [address] Sep, [facility] [address] [id number] [address] [place] [address], [place] [address] Aug, [facility] [address] [id number] [address] [place] [address], [place] [address] Aug, [facility] [address] [id number] [address] [place] [address], [place] [address] Aug, [facility] [address] [id number] [address] [place] [address], [place] [address] Aug, [facility] [address] [id number] [address] [place] [address], [place] [address] Aug, [facility] [address] [id number] [address] [place] [address], [place] [address] Aug, [facility] [address] [id number] [address] [place] [address], [place] [address] Aug, [facility] [address] [id number] [address] [place] [address], [place] [address] Aug, [facility] [address] [id number] [address] [place] [address], [place] [address] Aug, [facility] [address] [id number] [address] [place] [address], [place] [address] Aug, [facility] [address] [id number] [address] [place] [address], [place] [address] Jul, [facility] [address] [id number] [address] [place] [address], [place] [address] Jul, [facility] [address] [id number] [address] [place] [address], [place] [address] Jul, [facility] [address] [id number] [address] [place] [address], [place] [address] Jul, [facility] [address] [id number] [address] [place] [address], [place] [address] Jul, [facility] [address] [id number] [address] [place] [address], [place] [address] Jul, [facility] [address] [id number] [address] [place] [address], [place] [address] Jun, [facility] [address] [id number] [address] [place] [address], [place] [address] Jun, [facility] [address] [id number] [address] [place] [address], [place] [address] Jun, [facility] [address] [id number] [facility] [place] [address] Jun, [facility] [address] [id number] [facility] [place] [address] Jun, [facility] [address] [id number] [facility] [place] [address] Jun, [facility] [address] [id number] [address] [place] [address], [place] [address] May, [facility] [address] [id number] [address] [place] [address], [place] [address] May, [facility] [address] [id number] [address] [place] [address], [place] [address] May, [facility] [address] [id number] [address] [place] [address], [place] [address] May, [facility] [address] [id number] [address] [place] [address], [place] [address] May, [facility] [address] [id number] [address] [place] [address], [place] [address] Apr, [facility] [address] [id number] [address] [place] [address], [place] [address] Apr, [facility] [address] [id number] [address] [place] [address], [place] [address] Apr, [facility] [address] [id number] [address] [place] [address], [place] [address] Apr, [facility] [address] [id number] [address] [place] [address], [place] [address] March, [facility] [address] [id number] [address] [place] [address], [place] [address] March, [facility] [address] [id number] [address] [place] [address], [place] [address] March, [facility] [address] [id number] [facility] [place] [address] March, [facility] [address] [id number] [address] [place] [address], [place] [address] March, [facility] [address] [id number] [address] [place] [address], [place] [address] March, [facility] [address] [id number] [address] [place] [address], [place] [address] Feb, [facility] [address] [id number] [address] [place] [address], [place] [address] Feb, [facility] [address] [id number] [address] [place] [address], [place] [address] Feb, [facility] [address] [id number] [address] [place] [address], [place] [address] Feb, [facility] [address] [id number] [address] [place] [address], [place] [address] Feb, [facility] [address] [id number] [address] [place] [address], [place] [address] Feb, [facility] [address] [id number] [address] [place] [address], [place] [address] Feb, [facility] [address] [id number] [address] [place] [address], [place] [address] Feb, [facility] [address] [id number] [address] [place] [address], [place] [address] Jan, [facility] [address] [id number] [address] [place] [address], [place] [address] Jan, [facility] [address] [id number] [address] [place] [address], [place] [address] Jan, [facility] [address] [id number] [address] [place] [address], [place] [address] Jan, [facility] [address] [id number] [address] [place] [address], [place] [address] Jan, [facility] [address] [id number] [address] [place] [address], [place] [address] Jan, [facility] [address] [id number] [address] [place] [address], [place] [address] Dec, [facility] [address] [id number] [address] [place] [address], [place] [address] Dec, [facility] [address] [id number] [address] [place] [address], [place] [address] Nov, [facility] [address] [id number] [address] [place] [address], [place] [address] Nov, [facility] [address] [id number] [address] [place] [address], [place] [address] Nov, [facility] [address] [id number] [address] [place] [address], [place] [address] Nov, [facility] [address] [id number] [address] [place] [address], [place] [address] Nov, [facility] [address] [id number] [address] [place] [address], [place] [address] Nov, [facility] [address] [id number] [address] [place] [address], [place] [address] Nov, [facility] [address] [id number] [address] [place] [address], [place] [address] Nov, [facility] [address] [id number] [address] [place] [address], [place] [address] Nov, [facility] [address] [id number] [address] [place] [address], [place] [address] Nov, [facility] [address] [id number] [address] [place] [address], [place] [address] Nov, [facility] [address] [id number] [address] [place] [address], [place] [address] Nov, [facility] [address] [id number] [address] [place] [address] Nov, [facility] [address] [id number] [address] [place] [address] Nov, [facility] [address] [id number] [address] [place] [address] Nov, [facility] [address] [id number] [address] [place] [address] Oct, [facility] [address] [id number] [address] [place] [address] Oct, [facility] [address] [id number] [address] [place] [address] Oct, [facility] [address] [id number] [address] [place] [address] Oct, [facility] [address] [id number] [address] [place] [address] Oct, [facility] [address] [id number] [address] [place] [address] Oct, [facility] [address] [id number] [address] [place] [address] Oct, [facility] [address] [id number] [address] [place] [address] Oct, [facility] [address] [id number] [address] [place] [address] Oct, [facility] [address] [id number] [address] [place] [address] Aug, [facility] [address] [id number] [address] [place] [address] Aug, IMMUNIZATIONS No Known Immunizations SOCIAL HISTORY [...] by Dr. Troy Michelle pain specialist in [place], [place] Medical History Chronic low back pain [...]
--- OUTSIDE RECORDS SUMMARY | 2020-06-19 02:13 | XMS REPORT ---
Author Author ARMANDO Mahsavirgen LOCK Organization [facility] Address [address] [place] [address] Care Team Providers Care Dispatcher Service Chief Name Role Phone ARMANDONYASIA DIAZY Unavailable PROBLEMS Type Condition ICD9-CM Code KDZ79-PE Code Onset Dates Condition S tatus SNOMED Code Problem Other constipation K59.09 Active 1 [id number] Problem Primary insomnia F51.01 Active 193 626282 Problem Chronic pain syndrome G89.4 Active 070287220 Problem Essential hypertension I10 Active 74365690 Problem Anxiety F41.9 Active 15033210 Problem Major depressive disorder, recurrent episode, un specified severity F33.9 Active 41476427 Problem Atherosclerosis of kashia co ronary artery of kashia heart without angina pectoris I25.10 Active [id number] Problem Bilateral low back pain, with sciatica presence unspecifie d M54.5 Active 663575751 Problem Allergic rhinitis J30.9 Active 61 957852 Problem Fibromyalgia M79.7 Active 9825992 7 Problem Degenerative disc disease, thoracic M51.34 Active 59603515 Problem B12 deficiency E53.8 Active 23700 4004 Problem Degenerative disc disease, cervical M50.30 Active 65680492 Problem Hyperlipidemia, unspecified hyperlipidemia E78.5 Active 34311097 Problem GERD (gastroesophageal reflux disease) K21.9 Active 151145240 Problem Chronic obstructive pulmonary disease, unspecified COPD ty pe J44.9 Active 69376412 Problem CKD (chronic kidney disease) stage 3, GFR 30-59 ml/min N18.3 Active 385590530 Problem Cannabis abuse F12.10 Active 94873 009 ALLERGIES No Information ENCOUNTERS Encounter Location Date Diagnosis [facility] [address] [facility] [id number] [address] [place] [address] Apr, B12 deficiency E53.8 [facility] [address] [facility] [id number] [address] [place] [address] Jan, Periumbilical hernia K42.9 ; CKD (chronic kidney disease) stage 3, GFR 30-59 ml/min N18.3 ; Essential hypertension I10 ; GERD (gastroesophageal reflux disease) K21.9 ; Hyperlipidemia, unspecified hyperlipidemia E78.5 and Major depressive disorder, recurrent episode, unspecified severity F33.9 [place] [address] [id number] [address] [place] [address] Dec, Anxiety F41.9 [place] [address] [id number] [address] [place] [address] Nov, Elevated platelet count R79. 89 [place] [address] [id number] [address] [place] [address] Nov, [place] [address] [facility] [id number] [address] [place] [address] Nov, Elevated platelet count R79. 89 [place] [address] [facility] [id number] [address] [place] [address] Nov, Anxiety F41.9 [place] [address] [id number] [address] [place] [address] Nov, Bilateral low back pain, wit h sciatica presence unspecified M54.5 ; Cervicalgia M54.2 ; Degenerative disc disease, cervical M50.30 and Degenerative disc disease, thoracic M51.34 [place] [address] [place] [id number] [address] [place] [address] Nov, Chronic pain syndrome G89.4 and Bilateral low back pain, with sciatica presence unspecified M54.5 [place] [address] [place] [id number] [address] [place] [address] Oct, Umbilical hernia without obs truction and without gangrene K42.9 [place] [address] [facility] [id number] [address] [place] [address] Oct, Chronic pain syndrome G89.4 [place] [address] [place] [id number] [address] [place] [address] Oct, Chronic pain syndrome G89.4 and Anxiety F41.9 [place] [address] [place] [id number] [address] [place] [address] 12 Oct, 2018 Elevated platelet count R79. 89 [place] [address] [place] [id number] [address] [place] [address] 10 Oct, 2018 CKD (chronic kidney disease) stage 3, GFR 30-59 ml/min N18.3 ; Other chest pain R07.89 ; Acute midline thoracic back pain M54.6 ; Essential hypertension I10 and History of osteoporosis Z87.39 [place] [id number] [place] [address] 29 Sep, 2018 Chronic pain syndrome G89.4 [place] [address] [place] [id number] [place] [address] 16 Sep, 2018 [place] [address] [address] Sep, Anxiety F41.9 and Chronic pa in syndrome G89.4 [place] [address] [place] [id number] [address] [place] [address] 18 Aug, 2018 Chronic pain syndrome G89.4 and Anxiety F41.9 [place] [address] [place] [id number] [address] [place] [address] Aug, [place] [address] [address] Aug, Cannabis abuse F12.10 and Co ntrolled substance agreement terminated Z91.14 [place] [address] [place] [id number] [address] [place] [address] 28 Jul, 2018 Chronic pain syndrome G89.4 ; Bilateral low back pain, with sciatica presence unspecified M54.5 ; Chronic prescription opiate use Z79.899 ; Essential hypertension I10 ; Hyperlipidemia, unspecified hyperlipidemia E78.5 ; CKD (chronic kidney disease) stage 3, GFR 30-59 ml/min N18.3 and Allergic rhinitis J30.9 [place] [address] [place] [id number] [place] [address] Jul, Chronic pain syndrome G89.4 and Anxiety F41.9 [place] [address] [place] [id number] [address] [place] [address] Jul, Screening for breast cancer Z12.31 and Major depressive disorder, recurrent episode, unspecified severity F33.9 [place] [address] [place] [id number] [address] [place] [address] Jun, Chronic pain syndrome G89.4 and Anxiety F41.9 [place] [address] [place] [id number] [address] [place] [address] May, Chronic pain syndrome G89.4 and Anxiety F41.9 [place] [address] [place] [id number] [address] [place] [address] Apr, Anxiety F41.9 [place] [address] [place] [id number] [place] [address] Apr, Chronic prescription opiate use Z79.899 ; Chronic pain syndrome G89.4 ; Essential hypertension I10 ; Allergic rhinitis J30.9 and CKD (chronic kidney disease) stage 3, GFR 30-59 ml/min N18.3 [place] [address] [place] [id number] [address] [place] [address] Apr, [place] [address] [place] [id number] [address] [place] [address] March, Anxiety F41.9 and Chronic pa in syndrome G89.4 [place] [address] [facility] [id number] [address] [place] [address] March, CKD (chronic kidney disease) stage 3, GFR 30-59 ml/min N18.3 ; B12 deficiency E53.8 and Hyperlipidemia, unspecified hyperlipidemia E78.5 [place] [address] [facility] [id number] [address] [place] [address] March, Anxiety F41.9 and Chronic pa in syndrome G89.4 [place] [address] [address] Feb, Anxiety F41.9 and Chronic pa in syndrome G89.4 [place] [address] [address] Jan, B12 deficiency E53.8 [place] [address] [address] Jan, [place] [address] [address] Jan, Anxiety F41.9 ; Chronic pain syndrome G89.4 and Essential hypertension I10 [place] [address] [address] Jan, CKD (chronic kidney disease) stage 3, [...] Subacromial bursitis of right shoulder joint M75.51 [place] [address] [address] 28 Dec, 2017 Essential hypertension I10 [place] [address] [address] 15 Dec, 2017 Chronic pain syndrome G89.4 [place] [address] [address] Dec, Chronic pain syndrome G89.4 [place] [address] [address] Nov, [place] [address] [address] Nov, Chronic pain syndrome G89.4 and Anxiety F41.9 [place] [id number] [facility] [id number] [address] [place] [address] Oct, Chronic pain syndrome G89.4 ; Other constipation K59.09 and Chronic prescription opiate use Z79.899 [facility] [address] [facility] [id number] [address] [place] [address] Oct, Chronic pain syndrome G89.4 and Anxiety F41.9 [place] [address] [facility] [id number] [address] [place] [address] Sep, Essential hypertension I10 [place] [address] [facility] [id number] [address] [place] [address] 16 Sep, 2017 Chronic pain syndrome G89.4 and Anxiety F41.9 [place] [address] [facility] [id number] [address] [place] [address] Aug, Chronic pain syndrome G89.4 and Anxiety F41.9 [place] [address] [place] [id number] [address] [place] [address] Jul, Essential hypertension I10 [place] [address] [facility] [id number] [address] [place] [address] 22 Jul, 2017 Chronic obstructive pulmonar y disease, unspecified COPD type J44.9 [place] [address] [facility] [id number] [address] [place] [address] Jul, Chronic pain syndrome G89.4 and Anxiety F41.9 [place] [address] [place] [id number] [address] [place] [address] 13 Jul, 2017 Chronic pain syndrome G89.4 ; Essential hypertension I10 ; Fibromyalgia M79.7 ; CKD (chronic kidney disease) stage 3, GFR 30-59 ml/min N18.3 ; Subacromial bursitis, right M75.51 and Goals of care, co unseling/discussion Z71.89 [place] [address] [facility] [id number] [address] [place] [address] Jun, Chronic pain syndrome G89.4 and Anxiety F41.9 [place] [id number] [id number] [address] [place] [address] May, Chronic pain syndrome G89.[address] [facility] [address] [facility] [id number] [address] [place] [address] Apr, Chronic pain syndrome G89.[address] [facility] [address] [facility] [id number] [address] [place] [address] Apr, Drug induced constipation K5 9.03 ; Chronic pain syndrome G89.4 and CKD (chronic kidney disease) stage 3, GFR 30-59 ml/min N18.3 [facility] [address] [facility] [id number] [address] [place] [address] Apr, Chronic pain syndrome G89.4 and Anxiety F41.9 [place] [address] [facility] [id number] [address] [place] [address] March, Chronic pain syndrome G89.[address] [facility] [address] [facility] [id number] [address] [place] [address] March, Decreased GFR R94.4 [facility] [address] [facility] [id number] [address] [place] [address] Feb, [facility] [address] [facility] [id number] [address] [place] [address] Feb, Chronic pain syndrome G89.[address] [facility] [address] [facility] [id number] [address] [place] [address] Jan, Decreased GFR R94.4 [facility] [address] [facility] [id number] [address] [place] [address] Jan, Decreased GFR R94.4 [facility] [address] [facility] [id number] [address] [place] [address] Jan, Allergic rhinitis J30.9 ; Es sential hypertension I10 ; Major depressive disorder, recurrent episode, unspecified severity F33.9 and Primary insomnia F51.01 [facility] [address] [place] [id number] [address] [place] [address] Jan, Acute right-sided thoracic b ack pain M54.6 ; Subacromial bursitis of right shoulder joint M75.51 ; Chronic pain syndrome G89.4 and Anxiety F41.9 [place] [address] [place] [id number] [address] [place] [address] Jan, Decreased GFR R94.4 [place] [address] [place] [id number] [address] [place] [address] Dec, Decreased GFR R94.4 [place] [address] [place] [id number] [place] [address] Dec, Decreased GFR R94.4 [place] [address] [address] Dec, Decreased GFR R94.4 [place] [address] [place] [id number] [place] [address] Dec, Decreased GFR R94.4 [place] [address] [address] Dec, Anxiety F41.9 and Bilateral low back pain, with sciatica presence unspecified M54.5 [place] [address] [address] Dec, Thrombocytosis D47.3 ; Hyper lipidemia, unspecified hyperlipidemia E78.5 ; Need for hepatitis C screening test Z11.59 and B12 deficiency E53.8 [place] [address] [place] [id number] [address] [place] [address] Nov, Need for hepatitis C screeni ng test Z11.59 [place] [address] [place] [id number] [place] [address] Nov, Anxiety F41.9 and Bilateral low back pain, with sciatica presence unspecified M54.5 [place] [address] [place] [id number] [address] [place] [address] Oct, Bilateral low back pain, wit h sciatica presence unspecified M54.5 ; Chronic prescription opiate use Z79.899 ; Anxiety F41.9 ; Essential hypertension I10 ; Hyperlipidemia, unspecified hyperlipidemia E78.5 ; Health care maintenance Z00.00 and Thrombocytosis D47.3 [place] [address] [address] Sep, [facility] [address] [address] Sep, [place] [address] [address] Aug, [place] [address] [address] Jul, B12 deficiency E53.8 [place] [address] [address] Jul, [place] [address] [address] Jul, Essential hypertension I10 ; Chronic pain syndrome G89.4 ; Anxiety F41.9 ; Screening for breast cancer Z12.39 ; Atherosclerosis of kashia coronary artery of kashia heart without angina pectoris I25.10 ; Major depressive disorder, recurrent episode, unspecified severity F33.9 ; Primary insomnia F51.01 and Allergic rhinitis J30.9 [place] [address] [place] [id number] [address] [place] [address] Jun, [facility] [address] [place] [id number] [address] [place] [address] Jun, Leg wound, right, initial en counter S81.801A and Encounter for immunization Z23 [place] [address] [place] [id number] [address] [place] [address] Jun, Open wound of right ear, uns pecified open wound type, initial encounter S01.301A [place] [address] [place] [id number] [address] [place] [address] May, B12 deficiency [address]8 [facility] [address] [place] [address] May, [facility] [address] [place] [id number] [address] [place] [address] May, [facility] [address] [address] May, Chronic pain syndrome G89.4 ; Chronic prescription opiate use Z79.899 ; Allergic rhinitis J30.9 ; Essential hypertension I10 and Non-healing skin lesion L98.9 [place] [address] [address] Apr, [place] [address] [address] March, [facility] [address] [address] Feb, [facility] [address] [address] Feb, [place] [address] [address] Feb, Chronic pain syndrome G89.4 ; Anxiety [...] [facility] [address] [place] [id number] [address] [place] [address] Jan, [facility] [address] [address] Jan, Essential hypertension I10 [place] [address] [facility] [id number] [address] [place] [address] [address], [address] [facility] [address] [facility] [id number] [address] [place] [address] Jan, [facility] [address] [facility] [id number] [address] [place] [address] Jan, [facility] [address] [facility] [id number] [address] [place] [address] Dec, [facility] [address] [facility] [id number] [address] [place] [address] Dec, Essential hypertension I10 [facility] [address] [facility] [id number] [place] [address] Dec, [facility] [address] [facility] [id number] [place] [address] Dec, B12 deficiency E53.8 and Ess ential hypertension I10 [facility] [address] [facility] [id number] [address] [place] [address] Dec, [facility] [address] [facility] [id number] [address] Nov, Right shoulder pain M25.511 [facility] [address] [address] Nov, Right shoulder pain M25.511 [facility] [address] [facility] [id number] [address] [place] [address] Nov, Essential hypertension I10 a nd B12 deficiency E53.8 [facility] [address] [facility] [id number] [address] [place] [address] 14 Nov, 2015 Major depressive disorder, r ecurrent episode, unspecified severity F33.9 ; Anxiety F41.9 ; Chronic pain syndrome G89.4 ; Essential hypertension I10 ; Hyperlipidemia, unspecified hyperlipidemia E78.5 ; Chronic prescription opiate use Z79.899 ; Allergic rhinitis J30.9 ; B12 deficiency E53.8 and Right shoulder pain M25.511 [facility] [address] [id number] [address] [place] [address] Oct, [facility] [address] [id number] [address] [place] [address] Oct, [facility] [address] [facility] [id number] [address] [place] [address] Sep, [facility] [address] [id number] [address] [place] [address] Sep, [facility] [address] [facility] [id number] [address] [place] [address] Aug, [facility] [address] [facility] [id number] [address] [place] [address] Aug, [facility] [address] [place] [id number] [address] [place] [address] Aug, [facility] [address] [place] [id number] [address] [place] [address] Aug, Other constipation K59.09 ; Hyperlipidemia, unspecified hyperlipidemia E78.5 ; Essential hypertension I10 ; Primary insomnia F51.01 ; Anxiety F41.9 ; Chronic pain syndrome G89.4 ; Right shoulder pain M25.511 and Acute cystitis without hematuria N30.00 [facility] [address] [place] [id number] [address] [place] [address] [address] Jul, 2015 [facility] [address] [facility] [id number] [address] [place] [address] Jul, [facility] [address] [facility] [id number] [address] [place] [address] Jun, [facility] [address] [place] [id number] [address] [place] [address] Jun, [facility] [address] [facility] [id number] [address] [place] [address] Jun, [facility] [address] [facility] [id number] [address] [place] [address] May, [facility] [address] [id number] [address] [place] [address] May, Other chronic pain 338.29 ; Hypertension 401.9 and Constipation due to opioid therapy 564.09 [facility] [address] [id number] [address] [place] [address] 17 May, 2015 [facility] [address] [id number] [address] [place] [address] May, [facility] [address] [id number] [address] [place] [address] Apr, [facility] [address] [id number] [address] [place] [id number] Apr, Unspecified essential hypert ension 401.9 [facility] [address] [id number] [address] [place] [id number] Apr, [facility] [address] [id number] [address] [place] [id number] Apr, [facility] [address] [id number] [address] [place] [id number] Apr, [facility] [address] [id number] [address] [place] [phone] Apr, [facility] [address] [id number] [address] [place] [id number] Apr, [facility] [address] [id number] [address] [place] [phone] Apr, [facility] [address] [id number] [address] [place] [id number] March, Unspecified essential hypert ension 401.9 [facility] [address] [id number] [address] [place] [id number] March, [facility] [address] [id number] [address] [place] [id number] March, [facility] [address] [id number] [address] [place] [address], [place] [id number] 14 Feb, 2015 [facility] [address] [id number] [address] [place] [address], [place] [id number] Feb, [facility] [address] [id number] [address] [place] [address], [place] [id number] Jan, [facility] [address] [id number] [address] [place] [address], [place] [id number] Jan, [facility] [address] [id number] [address] [place] [address], [place] [id number] Jan, [facility] [address] [id number] [address] [place] [address], [place] [id number] Jan, [facility] [facility] [address] [id number] [address] [place] [address], [place] [address] Jan, [facility] [address] [id number] [address] [place] [address], [place] [address] Jan, [facility] [address] [id number] [address] [place] [address], [place] [address] Jan, [facility] [address] [id number] [address] [place] [address], [place] [address] 16 Dec, 2014 [facility] [address] [id number] [address] [place] [address], [place] [address] Dec, [facility] [address] [id number] [address] [place] [address], [place] [address] Dec, [facility] [address] [id number] [address] [place] [address], [place] [address] Nov, [facility] [address] [id number] [address] [place] [address], [place] [address] Nov, [facility] [address] [id number] [address] [place] [address], [place] [address] Oct, [facility] [address] [id number] [address] [place] [id number] 16 Oct, 2014 [facility] [address] [id number] [address] [place] [address], [place] [address] Oct, [facility] [address] [id number] [address] [place] [address], [place] [address] Oct, [facility] [address] [id number] [address] [place] [address], [place] [address] Oct, [facility] [address] [id number] [address] [place] [address], [place] [address] Oct, [facility] [address] [id number] [address] [place] [address], [place] [address] Oct, [facility] [address] [id number] [address] [place] [address], [place] [address] Oct, [facility] [address] [id number] [address] [place] [address], [place] [address] Sep, [facility] [address] [id number] [address] [place] [address], [place] [address] Sep, [facility] [address] [id number] [address] [place] [address], [place] [address] Sep, [facility] [address] [id number] [address] [place] [address], [place] [address] Sep, [facility] [address] [id number] [address] [place] [address], [place] [address] Sep, [facility] [address] [id number] [address] [place] [address] Sep, [facility] [address] [id number] [address] [place] [address], [place] [address] Aug, [facility] [address] [id number] [address] [place] [address], [place] [address] Aug, [facility] [address] [id number] [address] [place] [address], [place] [address] Aug, [facility] [address] [id number] [address] [place] [address], [place] [address] Aug, [facility] [address] [id number] [address] [place] [address], [place] [address] Aug, [facility] [address] [id number] [address] [place] [address], [place] [address] Aug, [facility] [address] [id number] [address] [place] [address], [place] [address] Aug, [facility] [address] [id number] [address] [place] [address], [place] [address] Aug, [facility] [address] [id number] [address] [place] [address], [place] [address] Aug, [facility] [address] [id number] [address] [place] [address], [place] [address] Aug, [facility] [address] [id number] [address] [place] [address], [place] [address] Jul, [facility] [address] [id number] [address] [place] [address], [place] [address] Jul, [facility] [address] [id number] [address] [place] [address], [place] [address] Jul, [facility] [address] [id number] [address] [place] [address], [place] [address] Jul, [facility] [address] [id number] [address] [place] [address], [place] [address] Jul, [facility] [address] [id number] [address] [place] [address], [place] [address] Jul, [facility] [address] [id number] [address] [place] [address], [place] [address] Jun, [facility] [address] [id number] [address] [place] [address], [place] [address] Jun, [facility] [address] [id number] [address] [place] [address], [place] [address] Jun, [facility] [address] [id number] [facility] [place] [address] Jun, [facility] [address] [id number] [facility] [place] [address] Jun, [facility] [address] [id number] [facility] [place] [address] Jun, [facility] [address] [id number] [address] [place] [address], [place] [address] May, [facility] [address] [id number] [address] [place] [address], [place] [address] May, [facility] [address] [id number] [address] [place] [address], [place] [address] May, [facility] [address] [id number] [address] [place] [address], [place] [address] May, [facility] [address] [id number] [address] [place] [address], [place] [address] May, [facility] [address] [id number] [address] [place] [address], [place] [address] Apr, [facility] [address] [id number] [address] [place] [address], [place] [address] Apr, [facility] [address] [id number] [address] [place] [address], [place] [address] Apr, [facility] [address] [id number] [address] [place] [address], [place] [address] Apr, [facility] [address] [id number] [address] [place] [address], [place] [address] March, [facility] [address] [id number] [address] [place] [address], [place] [address] March, [facility] [address] [id number] [address] [place] [address], [place] [address] March, [facility] [address] [id number] [facility] [place] [address] March, [facility] [address] [id number] [address] [place] [address], [place] [address] March, [facility] [address] [id number] [address] [place] [address], [place] [address] March, [facility] [address] [id number] [address] [place] [address], [place] [address] Feb, [facility] [address] [id number] [address] [place] [address], [place] [address] Feb, [facility] [address] [id number] [address] [place] [address], [place] [address] Feb, [facility] [address] [id number] [address] [place] [address], [place] [address] Feb, [facility] [address] [id number] [address] [place] [address], [place] [address] Feb, [facility] [address] [id number] [address] [place] [address], [place] [address] Feb, [facility] [address] [id number] [address] [place] [address], [place] [address] Feb, [facility] [address] [id number] [address] [place] [address], [place] [address] Feb, [facility] [address] [id number] [address] [place] [address], [place] [address] Jan, [facility] [address] [id number] [address] [place] [address], [place] [address] Jan, [facility] [address] [id number] [address] [place] [address], [place] [address] Jan, [facility] [address] [id number] [address] [place] [address], [place] [address] Jan, [facility] [address] [id number] [address] [place] [address], [place] [address] Jan, [facility] [address] [id number] [address] [place] [address], [place] [address] Jan, [facility] [address] [id number] [address] [place] [address], [place] [address] Dec, [facility] [address] [id number] [address] [place] [address], [place] [address] Dec, [facility] [address] [id number] [address] [place] [address], [place] [address] Nov, [facility] [address] [id number] [address] [place] [address], [place] [address] Nov, [facility] [address] [id number] [address] [place] [address], [place] [address] Nov, [facility] [address] [id number] [address] [place] [address], [place] [address] Nov, [facility] [address] [id number] [address] [place] [address], [place] [address] Nov, [facility] [address] [id number] [address] [place] [address], [place] [address] Nov, [facility] [address] [id number] [address] [place] [address], [place] [address] Nov, [facility] [address] [id number] [address] [place] [address], [place] [address] Nov, [facility] [address] [id number] [address] [place] [address], [place] [address] Nov, [facility] [address] [id number] [address] [place] [address], [place] [address] Nov, [facility] [address] [id number] [address] [place] [address], [place] [address] Nov, [facility] [address] [id number] [address] [place] [address], [place] [address] Nov, [facility] [address] [id number] [address] [place] [address] Nov, [facility] [address] [id number] [address] [place] [address] Nov, [facility] [address] [id number] [address] [place] [address] Nov, [facility] [address] [id number] [address] [place] [address] Oct, [facility] [address] [id number] [address] [place] [address] Oct, [facility] [address] [id number] [address] [place] [address] Oct, [facility] [address] [id number] [address] [place] [address] Oct, [facility] [address] [id number] [address] [place] [address] Oct, [facility] [address] [id number] [address] [place] [address] Oct, [facility] [address] [id number] [address] [place] [address] Oct, [facility] [address] [id number] [address] [place] [id number] Oct, [facility] [address] [id number] [address] [place] [id number] Oct, [facility] [address] [id number] [address] [place] [id number] Aug, [facility] [address] [id number] [address] [place] [address] Aug, IMMUNIZATIONS No Known Immunizations SOCIAL HISTORY [...] by Dr. Troy Michelle pain specialist in [place], [place] Medical History Chronic low back pain [...]
--- OUTSIDE RECORDS SUMMARY | 2020-06-19 02:13 | XMS REPORT ---
Author Author ARMANDO Mahsavirgen LOCK Organization [facility] Address [address] [place] [address] Care Team Providers Care Bioengineer Name Role Phone ARMANDONYASIA DIAZY Unavailable PROBLEMS Type Condition ICD9-CM Code [id number] Code Onset Dates Condition S tatus SNOMED Code Problem Other constipation K59.09 Active 1 [id number] Problem Primary insomnia F51.01 Active 193 282347 Problem Chronic pain syndrome G89.4 Active 194702257 Problem Essential hypertension I10 Active 49564472 Problem Anxiety F41.9 Active 44715925 Problem Major depressive disorder, recurrent episode, un specified severity F33.9 Active 36330113 Problem Atherosclerosis of [place] co ronary artery of [place] heart without angina pectoris I25.10 Active 9239125289226 Problem Bilateral low back pain, with sciatica presence unspecifie d M54.5 Active 188373510 Problem Allergic rhinitis J30.9 Active 61 263761 Problem Fibromyalgia M79.7 Active 0035681 7 Problem Degenerative disc disease, thoracic M51.34 Active 06810289 Problem B12 deficiency E53.8 Active 39941 4004 Problem Degenerative disc disease, cervical M50.30 Active 98617857 Problem Hyperlipidemia, unspecified hyperlipidemia E78.5 Active 06508631 Problem GERD (gastroesophageal reflux disease) K21.9 Active 125997472 Problem Chronic obstructive pulmonary disease, unspecified COPD ty pe J44.9 Active 37075469 Problem CKD (chronic kidney disease) stage 3, GFR 30-59 ml/min N18.3 Active 058824937 Problem Cannabis abuse F12.10 Active 77010 009 ALLERGIES No Information ENCOUNTERS Encounter Location Date Diagnosis [facility] [address] [facility] [id number] [address] [place] [phone] Apr, B12 deficiency E53.8 [facility] [address] [facility] [id number] [address] [place] [id number] Jan, Periumbilical hernia K42.9 ; CKD (chronic kidney disease) stage 3, GFR 30-59 ml/min N18.3 ; Essential hypertension I10 ; GERD (gastroesophageal reflux disease) K21.9 ; Hyperlipidemia, unspecified hyperlipidemia E78.5 and Major depressive disorder, recurrent episode, unspecified severity F33.9 [place] [address] [id number] [address] [place] [id number] Dec, Anxiety F41.9 [place] [address] [id number] [address] [place] [phone] Nov, Elevated platelet count R79. 89 [place] [address] [id number] [address] [place] [id number] Nov, [place] [address] [facility] [id number] [address] [place] [phone] Nov, Elevated platelet count R79. 89 [place] [address] [facility] [id number] [address] [place] [id number] Nov, Anxiety F41.9 [place] [address] [id number] [address] [place] [id number] Nov, Bilateral low back pain, wit h sciatica presence unspecified M54.5 ; Cervicalgia M54.2 ; Degenerative disc disease, cervical M50.30 and Degenerative disc disease, thoracic M51.34 [place] [address] [place] [id number] [address] [place] [address] Nov, Chronic pain syndrome G89.4 and Bilateral low back pain, with sciatica presence unspecified M54.5 [place] [address] [place] [id number] [address] [place] [id number] Oct, Umbilical hernia without obs truction and without gangrene K42.9 [place] [address] [facility] [id number] [address] [place] [id number] Oct, Chronic pain syndrome G89.4 [place] [address] [place] [id number] [address] [place] [phone] Oct, Chronic pain syndrome G89.4 and Anxiety F41.9 [place] [address] [place] [id number] [address] [place] [id number] 12 Oct, 2018 Elevated platelet count R79. 89 [place] [address] [place] [id number] [address] [place] [id number] 10 Oct, 2018 CKD (chronic kidney disease) stage 3, GFR 30-59 ml/min N18.3 ; Other chest pain R07.89 ; Acute midline thoracic back pain M54.6 ; Essential hypertension I10 and History of osteoporosis Z87.39 [place] [id number] [place] [id number] 29 Sep, 2018 Chronic pain syndrome G89.4 [place] [address] [place] [id number] [place] [phone] 16 Sep, 2018 [place] [address] [address] Sep, Anxiety F41.9 and Chronic pa in syndrome G89.4 [place] [address] [place] [id number] [address] [place] [id number] 18 Aug, 2018 Chronic pain syndrome G89.4 and Anxiety F41.9 [place] [address] [place] [id number] [address] [place] [id number] Aug, [place] [address] [address] Aug, Cannabis abuse F12.10 and Co ntrolled substance agreement terminated Z91.14 [place] [address] [place] [id number] [address] [place] [address] 28 Jul, 2018 Chronic pain syndrome G89.4 ; Bilateral low back pain, with sciatica presence unspecified M54.5 ; Chronic prescription opiate use Z79.899 ; Essential hypertension I10 ; Hyperlipidemia, unspecified hyperlipidemia E78.5 ; CKD (chronic kidney disease) stage 3, GFR 30-59 ml/min N18.3 and Allergic rhinitis J30.9 [place] [address] [place] [address] [place] [phone] Jul, Chronic pain syndrome G89.4 and Anxiety F41.9 [place] [address] [place] [id number] [address] [place] [id number] Jul, Screening for breast cancer Z12.31 and Major depressive disorder, recurrent episode, unspecified severity F33.9 [place] [address] [place] [id number] [address] [place] [address] Jun, Chronic pain syndrome G89.4 and Anxiety F41.9 [place] [address] [place] [id number] [address] [place] [phone] May, Chronic pain syndrome G89.4 and Anxiety F41.9 [place] [address] [place] [id number] [address] [place] [address] Apr, Anxiety F41.9 [place] [address] [place] [id number] [place] [address] Apr, Chronic prescription opiate use Z79.899 ; Chronic pain syndrome G89.4 ; Essential hypertension I10 ; Allergic rhinitis J30.9 and CKD (chronic kidney disease) stage 3, GFR 30-59 ml/min N18.3 [place] [address] [place] [id number] [address] [place] [id number] Apr, [place] [address] [place] [id number] [address] [place] [phone] March, Anxiety F41.9 and Chronic pa in syndrome G89.4 [place] [address] [facility] [id number] [address] [place] [phone] March, CKD (chronic kidney disease) stage 3, GFR 30-59 ml/min N18.3 ; B12 deficiency E53.8 and Hyperlipidemia, unspecified hyperlipidemia E78.5 [place] [address] [facility] [id number] [address] [place] [id number] March, Anxiety F41.9 and Chronic pa in syndrome G89.4 [place] [address] [address] Feb, Anxiety F41.9 and Chronic pa in syndrome G89.4 [place] [address] [address] Jan, B12 deficiency E53.8 [place] [address] [address] Jan, [place] [address] [address] Jan, Anxiety F41.9 ; Chronic pain syndrome G89.4 and Essential hypertension I10 [place] [address] [address] Jan, CKD (chronic kidney disease) stage 3, [...] Subacromial bursitis of right shoulder joint M75.51 [place] [address] [address] 28 Dec, 2017 Essential hypertension I10 [place] [address] [address] 15 Dec, 2017 Chronic pain syndrome G89.4 [place] [address] [address] Dec, Chronic pain syndrome G89.4 [place] [address] [address] Nov, [place] [address] [address] Nov, Chronic pain syndrome G89.4 and Anxiety F41.9 [place] [address] [facility] [id number] [address] [place] [address] Oct, Chronic pain syndrome G89.4 ; Other constipation K59.09 and Chronic prescription opiate use Z79.899 [facility] [address] [facility] [id number] [address] [place] [address] Oct, Chronic pain syndrome G89.4 and Anxiety F41.9 [place] [address] [facility] [id number] [address] [place] [phone] Sep, Essential hypertension I10 [place] [address] [facility] [id number] [address] [place] [address] 16 Sep, 2017 Chronic pain syndrome G89.4 and Anxiety F41.9 [place] [address] [facility] [id number] [address] [place] [phone] Aug, Chronic pain syndrome G89.4 and Anxiety F41.9 [place] [address] [place] [id number] [address] [place] [address] Jul, Essential hypertension I10 [place] [address] [facility] [id number] [address] [place] [id number] 22 Jul, 2017 Chronic obstructive pulmonar y disease, unspecified COPD type J44.9 [place] [address] [facility] [id number] [address] [place] [address] Jul, Chronic pain syndrome G89.4 and Anxiety F41.9 [place] [address] [place] [id number] [address] [place] [id number] 13 Jul, 2017 Chronic pain syndrome G89.4 ; Essential hypertension I10 ; Fibromyalgia M79.7 ; CKD (chronic kidney disease) stage 3, GFR 30-59 ml/min N18.3 ; Subacromial bursitis, right M75.51 and Goals of care, co unseling/discussion Z71.89 [place] [address] [facility] [id number] [address] [place] [id number] Jun, Chronic pain syndrome G89.4 and Anxiety F41.9 [place] [address] [id number] [address] [place] [address] May, Chronic pain syndrome G89.4 and Anxiety F41.9 [facility] [address] [facility] [id number] [address] [place] [address] Apr, Chronic pain syndrome G89.4 and Anxiety F41.9 [facility] [address] [facility] [id number] [address] [place] [address] Apr, Drug induced constipation K5 9.03 ; Chronic pain syndrome G89.4 and CKD (chronic kidney disease) stage 3, GFR 30-59 ml/min N18.3 [facility] [address] [facility] [id number] [address] [place] [phone] Apr, Chronic pain syndrome G89.4 and Anxiety F41.9 [place] [address] [facility] [id number] [address] [place] [address] March, Chronic pain syndrome G89.4 and Anxiety F41.9 [facility] [address] [facility] [id number] [address] [place] [address] March, Decreased GFR R94.4 [facility] [address] [facility] [id number] [address] [place] [id number] Feb, [facility] [address] [facility] [id number] [address] [place] [id number] Feb, Chronic pain syndrome G89.4 and Anxiety F41.9 [facility] [address] [facility] [id number] [address] [place] [address] Jan, Decreased GFR R94.4 [facility] [address] [facility] [id number] [address] [place] [phone] Jan, Decreased GFR R94.4 [facility] [address] [facility] [id number] [address] [place] [id number] Jan, Allergic rhinitis J30.9 ; Es sential hypertension I10 ; Major depressive disorder, recurrent episode, unspecified severity F33.9 and Primary insomnia F51.01 [facility] [address] [place] [id number] [address] [place] [id number] Jan, Acute right-sided thoracic b ack pain M54.6 ; Subacromial bursitis of right shoulder joint M75.51 ; Chronic pain syndrome G89.4 and Anxiety F41.9 [place] [address] [place] [id number] [address] [place] [phone] Jan, Decreased GFR R94.4 [place] [address] [place] [id number] [address] [place] [id number] Dec, Decreased GFR R94.4 [place] [address] [place] [id number] [place] [address] Dec, Decreased GFR R94.4 [place] [address] [address] Dec, Decreased GFR R94.4 [place] [address] [place] [id number] [place] [address] Dec, Decreased GFR R94.4 [place] [address] [address] Dec, Anxiety F41.9 and Bilateral low back pain, with sciatica presence unspecified M54.5 [place] [address] [address] Dec, Thrombocytosis D47.3 ; Hyper lipidemia, unspecified hyperlipidemia E78.5 ; Need for hepatitis C screening test Z11.59 and B12 deficiency E53.8 [place] [address] [place] [id number] [address] [place] [address] Nov, Need for hepatitis C screeni ng test Z11.59 [place] [address] [place] [id number] [place] [address] Nov, Anxiety F41.9 and Bilateral low back pain, with sciatica presence unspecified M54.5 [place] [address] [place] [id number] [address] [place] [address] Oct, Bilateral low back pain, wit h sciatica presence unspecified M54.5 ; Chronic prescription opiate use Z79.899 ; Anxiety F41.9 ; Essential hypertension I10 ; Hyperlipidemia, unspecified hyperlipidemia E78.5 ; Health care maintenance Z00.00 and Thrombocytosis D47.3 [place] [address] [address] Sep, [facility] [address] [address] Sep, [place] [address] [address] Aug, [place] [address] [address] Jul, B12 deficiency E53.8 [place] [address] [address] Jul, [place] [address] [address] Jul, Essential hypertension I10 ; Chronic pain syndrome G89.4 ; Anxiety F41.9 ; Screening for breast cancer Z12.39 ; Atherosclerosis of [place] coronary artery of [place] heart without angina pectoris I25.10 ; Major depressive disorder, recurrent episode, unspecified severity F33.9 ; Primary insomnia F51.01 and Allergic rhinitis J30.9 [place] [address] [place] [id number] [address] [place] [address] Jun, [facility] [address] [place] [id number] [address] [place] [address] Jun, Leg wound, right, initial en counter S81.801A and Encounter for immunization Z23 [place] [address] [place] [id number] [address] [place] [address] Jun, Open wound of right ear, uns pecified open wound type, initial encounter S01.301A [place] [address] [place] [id number] [address] [place] [address] May, B12 deficiency E53.8 [facility] [id number] [place] [address] May, [facility] [address] [place] [id number] [address] [place] [address] May, [facility] [address] [address] May, Chronic pain syndrome G89.4 ; Chronic prescription opiate use Z79.899 ; Allergic rhinitis J30.9 ; Essential hypertension I10 and Non-healing skin lesion L98.9 [place] [address] [address] Apr, [place] [address] [address] March, [facility] [address] [address] Feb, [facility] [address] [address] Feb, [place] [address] [address] Feb, Chronic pain syndrome G89.4 ; Anxiety F41.9 ; B12 deficiency E53.8 ; Allergic rhinitis J30.9 ; Fibromyalgia M79.7 ; Actinic keratosis L57.0 ; Skin rash R21 ; Open wound of right ear, unspecified open wound type, initial encounter S01.301A ; Subacromial bursitis, right M75.51 ; GERD (gastroesophageal reflux disease) K21.9 and Chronic obstructive pulmonary disease, unspecified COPD type J44.9 [facility] [address] [place] [id number] [address] [place] [address] Jan, [facility] [address] [address] Jan, Essential hypertension I10 [place] [address] [facility] [id number] [address] [place] [address] 11 Jan, 2016 [facility] [address] [facility] [id number] [address] [place] [address] Jan, [facility] [address] [facility] [id number] [address] [place] [address] Jan, [facility] [address] [facility] [id number] [address] [place] [address] Dec, [facility] [address] [facility] [id number] [address] [place] [address] Dec, Essential hypertension I10 [facility] [address] [facility] [id number] [place] [address] Dec, [facility] [address] [facility] [id number] [place] [address] Dec, B12 deficiency E53.8 and Ess ential hypertension I10 [facility] [address] [facility] [id number] [address] [place] [address] Dec, [facility] [address] [facility] [id number] [address] Nov, Right shoulder pain M25.511 [facility] [address] [address] Nov, Right shoulder pain M25.511 [facility] [address] [facility] [id number] [address] [place] [address] Nov, Essential hypertension I10 a nd B12 deficiency E53.8 [facility] [address] [facility] [id number] [address] [place] [address] 14 Nov, 2015 Major depressive disorder, r ecurrent episode, unspecified severity F33.9 ; Anxiety F41.9 ; Chronic pain syndrome G89.4 ; Essential hypertension I10 ; Hyperlipidemia, unspecified hyperlipidemia E78.5 ; Chronic prescription opiate use Z79.899 ; Allergic rhinitis J30.9 ; B12 deficiency E53.8 and Right shoulder pain M25.511 [facility] [address] [id number] [address] [place] [address] Oct, [facility] [address] [id number] [address] [place] [address] Oct, [facility] [address] [facility] [id number] [address] [place] [phone] Sep, [facility] [address] [id number] [address] [place] [address] Sep, [facility] [address] [facility] [id number] [address] [place] [id number] Aug, [facility] [address] [facility] [id number] [address] [place] [address] Aug, [facility] [address] [place] [id number] [address] [place] [id number] Aug, [facility] [address] [place] [id number] [address] [place] [address] Aug, Other constipation K59.09 ; Hyperlipidemia, unspecified hyperlipidemia E78.5 ; Essential hypertension I10 ; Primary insomnia F51.01 ; Anxiety F41.9 ; Chronic pain syndrome G89.4 ; Right shoulder pain M25.511 and Acute cystitis without hematuria N30.00 [facility] [address] [place] [id number] [address] [place] [id number] 16 Jul, 2015 [facility] [address] [facility] [id number] [address] [place] [id number] Jul, [facility] [address] [facility] [id number] [address] [place] [id number] Jun, [facility] [address] [place] [id number] [address] [place] [address] Jun, [facility] [address] [facility] [id number] [address] [place] [id number] Jun, [facility] [address] [facility] [id number] [address] [place] [id number] May, [facility] [address] [id number] [address] [place] [address] May, Other chronic pain 338.29 ; Hypertension 401.9 and Constipation due to opioid therapy 564.09 [facility] [address] [id number] [address] [place] [id number] 17 May, 2015 [facility] [address] [id number] [address] [place] [id number] May, [facility] [address] [id number] [address] [place] [id number] Apr, [facility] [address] [id number] [address] [place] [id number] Apr, Unspecified essential hypert ension 401.9 [facility] [address] [id number] [address] [place] [phone] Apr, [facility] [address] [id number] [address] [place] [phone] Apr, [facility] [address] [id number] [address] [place] [id number] Apr, [facility] [address] [id number] [address] [place] [phone] Apr, [facility] [address] [id number] [address] [place] [phone] Apr, [facility] [address] [id number] [address] [place] [phone] Apr, [facility] [address] [id number] [address] [place] [id number] March, Unspecified essential hypert ension 401.9 [facility] [address] [id number] [address] [place] [id number] March, [facility] [address] [id number] [address] [place] [id number] March, [facility] [address] [id number] [address] [place] [address], [place] [id number] 14 Feb, 2015 [facility] [address] [id number] [address] [place] [address], [place] [address] Feb, [facility] [address] [id number] [address] [place] [address], [place] [id number] Jan, [facility] [address] [id number] [address] [place] [address], [place] [address] Jan, [facility] [address] [id number] [address] [place] [address], [place] [address] Jan, [facility] [address] [id number] [address] [place] [address], [place] [address] Jan, [facility] [address] [id number] [address] [place] [address], [place] [address] Jan, [facility] [address] [id number] [address] [place] [address], [place] [address] Jan, [facility] [address] [id number] [address] [place] [address], [place] [id number] Jan, [facility] [address] [id number] [address] [place] [address], [place] [id number] 16 Dec, 2014 [facility] [address] [id number] [address] [place] [address], [place] [address] Dec, [facility] [address] [id number] [address] [place] [address], [place] [address] Dec, [facility] [address] [id number] [address] [place] [address], [place] [address] Nov, [facility] [address] [id number] [address] [place] [address], [place] [address] Nov, [facility] [address] [id number] [address] [place] [address], [place] [address] Oct, [facility] [facility] [address] [id number] [address] [place] [id number] 16 Oct, 2014 [facility] [address] [id number] [address] [place] [address], [place] [address] Oct, [facility] [address] [id number] [address] [place] [address], [place] [address] Oct, [facility] [address] [id number] [address] [place] [address], [place] [address] Oct, [facility] [address] [id number] [address] [place] [address], [place] [address] Oct, [facility] [address] [id number] [address] [place] [address], [place] [address] Oct, [facility] [address] [id number] [address] [place] [address], [place] [address] Oct, [facility] [address] [id number] [address] [place] [address], [place] [address] Sep, [facility] [address] [id number] [address] [place] [address], [place] [address] Sep, [facility] [address] [id number] [address] [place] [address], [place] [address] Sep, [facility] [address] [id number] [address] [place] [address], [place] [address] Sep, [facility] [address] [id number] [address] [place] [address], [place] [address] Sep, [facility] [address] [id number] [address] [place] [address] Sep, [facility] [address] [id number] [address] [place] [address], [place] [address] Aug, [facility] [address] [id number] [address] [place] [address], [place] [address] Aug, [facility] [address] [id number] [address] [place] [address], [place] [address] Aug, [facility] [address] [id number] [address] [place] [address], [place] [address] Aug, [facility] [address] [id number] [address] [place] [address], [place] [address] Aug, [facility] [address] [id number] [address] [place] [address], [place] [address] Aug, [facility] [address] [id number] [address] [place] [address], [place] [address] Aug, [facility] [address] [id number] [address] [place] [address], [place] [address] Aug, [facility] [address] [id number] [address] [place] [address], [place] [address] Aug, [facility] [address] [id number] [address] [place] [address], [place] [address] Aug, [facility] [address] [id number] [address] [place] [address], [place] [address] Jul, [facility] [address] [id number] [address] [place] [address], [place] [address] Jul, [facility] [address] [id number] [address] [place] [address], [place] [address] Jul, [facility] [address] [id number] [address] [place] [address], [place] [address] Jul, [facility] [address] [id number] [address] [place] [address], [place] [address] Jul, [facility] [address] [id number] [address] [place] [address], [place] [address] Jul, [facility] [address] [id number] [address] [place] [address], [place] [address] Jun, [facility] [address] [id number] [address] [place] [address], [place] [address] Jun, [facility] [address] [id number] [address] [place] [address], [place] [address] Jun, [facility] [address] [id number] [facility] [place] [address] Jun, [facility] [address] [id number] [facility] [place] [address] Jun, [facility] [address] [id number] [facility] [place] [address] Jun, [facility] [address] [id number] [address] [place] [address], [place] [address] May, [facility] [address] [id number] [address] [place] [address], [place] [address] May, [facility] [address] [id number] [address] [place] [address], [place] [address] May, [facility] [address] [id number] [address] [place] [address], [place] [address] May, [facility] [address] [id number] [address] [place] [address], [place] [address] May, [facility] [address] [id number] [address] [place] [address], [place] [address] Apr, [facility] [address] [id number] [address] [place] [address], [place] [address] Apr, [facility] [address] [id number] [address] [place] [address], [place] [address] Apr, [facility] [address] [id number] [address] [place] [address], [place] [address] Apr, [facility] [address] [id number] [address] [place] [address], [place] [address] March, [facility] [address] [id number] [address] [place] [address], [place] [address] March, [facility] [address] [id number] [address] [place] [address], [place] [address] March, [facility] [address] [id number] [facility] [place] [address] March, [facility] [address] [id number] [address] [place] [address], [place] [address] March, [facility] [address] [id number] [address] [place] [address], [place] [address] March, [facility] [address] [id number] [address] [place] [address], [place] [address] Feb, [facility] [address] [id number] [address] [place] [address], [place] [address] Feb, [facility] [address] [id number] [address] [place] [address], [place] [address] Feb, [facility] [address] [id number] [address] [place] [address], [place] [address] Feb, [facility] [address] [id number] [address] [place] [address], [place] [address] Feb, [facility] [address] [id number] [address] [place] [address], [place] [address] Feb, [facility] [address] [id number] [address] [place] [address], [place] [address] Feb, [facility] [address] [id number] [address] [place] [address], [place] [address] Feb, [facility] [address] [id number] [address] [place] [address], [place] [address] Jan, [facility] [address] [id number] [address] [place] [address], [place] [address] Jan, [facility] [address] [id number] [address] [place] [address], [place] [address] Jan, [facility] [address] [id number] [address] [place] [address], [place] [address] Jan, [facility] [address] [id number] [address] [place] [address], [place] [address] Jan, [facility] [address] [id number] [address] [place] [address], [place] [address] Jan, [facility] [address] [id number] [address] [place] [address], [place] [address] Dec, [facility] [address] [id number] [address] [place] [address], [place] [address] Dec, [facility] [address] [id number] [address] [place] [address], [place] [address] Nov, [facility] [address] [id number] [address] [place] [address], [place] [address] Nov, [facility] [address] [id number] [address] [place] [address], [place] [address] Nov, [facility] [address] [id number] [address] [place] [address], [place] [address] Nov, [facility] [address] [id number] [address] [place] [address], [place] [address] Nov, [facility] [address] [id number] [address] [place] [address], [place] [address] Nov, [facility] [address] [id number] [address] [place] [address], [place] [address] Nov, [facility] [address] [id number] [address] [place] [address], [place] [address] Nov, [facility] [address] [id number] [address] [place] [address], [place] [address] Nov, [facility] [address] [id number] [address] [place] [address], [place] [address] Nov, [facility] [address] [id number] [address] [place] [address], [place] [address] Nov, [facility] [address] [id number] [address] [place] [address], [place] [address] Nov, [facility] [address] [id number] [address] [place] [address] Nov, [facility] [address] [id number] [address] [place] [address] Nov, [facility] [address] [id number] [address] [place] [address] Nov, [facility] [address] [id number] [address] [place] [address] Oct, [facility] [address] [id number] [address] [place] [address] Oct, [facility] [address] [id number] [address] [place] [address] Oct, [facility] [address] [id number] [address] [place] [address] Oct, [facility] [address] [id number] [address] [place] [address] Oct, [facility] [address] [id number] [address] [place] [address] Oct, [facility] [address] [id number] [address] [place] [address] Oct, [facility] [address] [id number] [address] [place] [address] Oct, [facility] [address] [id number] [address] [place] [address] Oct, [facility] [address] [id number] [address] [place] [address] Aug, [facility] [address] [id number] [address] [place] [address] Aug, IMMUNIZATIONS No Known Immunizations SOCIAL HISTORY Never Assessed REASON FOR VISIT PLAN OF CARE VITAL SIGNS Height 69 in 2014-12-11 Weight 248.31 lbs 2014-12-11 Temperature 98 degrees Fahrenheit 2014-12-11 Heart Rate 74 bpm 2014-12-11 Respiratory Rate 18 2014-12-11 Blood pressure systolic 142 mmHg 2014-12-11 Blood pressure diastolic 92 mmHg 2014-12-11 MEDICATIONS Unknown Medications RESULTS No Results PROCEDURES Procedure Date Ordered Result Body Site VISIT Dec 11, 2014 INSTRUCTIONS MEDICATIONS ADMINISTERED No Known Medications MEDICAL (GENERAL) HISTORY Type Description Date Medical History hypertension Medical History asthma Medical History Arthritis Medical History Hypoglycemia Medical History Heart Cath 11/05/2013 Medical History herniated disc--Seen by Dr. Troy Michelle pain specialist in [place], [place] Medical History Chronic low back pain [...]
--- OUTSIDE RECORDS SUMMARY | 2020-06-19 02:13 | XMS REPORT ---
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 Name Role Phone Migration, Doctor Unavailable Unavailable PROBLEMS Type Condition ICD9-CM Code [id number] Code Onset Dates Condition S tatus SNOMED Code Problem Other constipation K59.09 Active 1 [id number] Problem Primary insomnia F51.01 Active 193 008237 Problem Chronic pain syndrome G89.4 Active 160816184 Problem Essential hypertension I10 Active 44411878 Problem Anxiety F41.9 Active 89041909 Problem Major depressive disorder, recurrent episode, un specified severity F33.9 Active 98739943 Problem Atherosclerosis of [place] co ronary artery of [place] heart without angina pectoris I25.10 Active [id number] Problem Bilateral low back pain, with sciatica presence unspecifie d M54.5 Active 394970497 Problem Allergic rhinitis J30.9 Active 61 907221 Problem Fibromyalgia M79.7 Active 6535683 7 Problem Degenerative disc disease, thoracic M51.34 Active 31475067 Problem B12 deficiency E53.8 Active 20644 4004 Problem Degenerative disc disease, cervical M50.30 Active 74139193 Problem Hyperlipidemia, unspecified hyperlipidemia E78.5 Active 43242767 Problem GERD (gastroesophageal reflux disease) K21.9 Active 030377491 Problem Chronic obstructive pulmonary disease, unspecified COPD ty pe J44.9 Active 49322645 Problem CKD (chronic kidney disease) stage 3, GFR 30-59 ml/min N18.3 Active 498282991 Problem Cannabis abuse F12.10 Active 81223 009 ALLERGIES Substance Reaction Event Type Date Status Lyrica throat swelling Drug Allergy Feb, Active Flagyl throat swelling Drug Allergy Feb, Active Lisinopril 20 Mg Tablet Headache Non Drug Allergy Feb, Active ENCOUNTERS Encounter Location Date Diagnosis [facility] [address] [facility] [id number] [address] [place] [phone] Apr, B12 deficiency E53.8 [facility] [address] [facility] [id number] [address] [place] [id number] Jan, Periumbilical hernia K42.9 ; CKD (chronic kidney disease) stage 3, GFR 30-59 ml/min N18.3 ; Essential hypertension I10 ; GERD (gastroesophageal reflux disease) K21.9 ; Hyperlipidemia, unspecified hyperlipidemia E78.5 and Major depressive disorder, recurrent episode, unspecified severity F33.9 [place] [address] [facility] [id number] [address] [place] [phone] Dec, Anxiety F41.9 [place] [address] [id number] [address] [place] [phone] Nov, Elevated platelet count R79. 89 [place] [address] [facility] [id number] [address] [place] [phone] Nov, [place] [address] [place] [id number] [place] [phone] Nov, Elevated platelet count R79. 89 [place] [address] [place] [id number] [address] [place] [phone] Nov, Anxiety F41.9 [place] [address] [place] [id number] [address] [place] [phone] Nov, Bilateral low back pain, wit h sciatica presence unspecified M54.5 ; Cervicalgia M54.2 ; Degenerative disc disease, cervical M50.30 and Degenerative disc disease, thoracic M51.34 [place] [address] [place] [id number] [address] [place] [phone] Nov, Chronic pain syndrome G89.4 and Bilateral low back pain, with sciatica presence unspecified M54.5 [place] [address] [place] [id number] [address] [place] [phone] Oct, Umbilical hernia without obs truction and without gangrene K42.9 [place] [address] [place] [id number] [place] [phone] Oct, Chronic pain syndrome G89.4 [place] [address] [address] 13 Oct, 2018 Chronic pain syndrome G89.4 and Anxiety F41.9 [place] [address] [address] 12 Oct, 2018 Elevated platelet count R79. 89 [place] [address] [address] Oct, CKD (chronic kidney disease) stage 3, GFR 30-59 ml/min N18.3 ; Other chest pain R07.89 ; Acute midline thoracic back pain M54.6 ; Essential hypertension I10 and History of osteoporosis Z87.39 [place] [address] [address] Sep, Chronic pain syndrome G89.4 [place] [address] [address] Sep, [place] [address] [address] Sep, Anxiety F41.9 and Chronic pa in syndrome G89.4 [place] [address] [address] 18 Aug, 2018 Chronic pain syndrome G89.4 and Anxiety F41.9 [place] [address] [address] Aug, [place] [address] [address] Aug, Cannabis abuse F12.10 and Co ntrolled substance agreement terminated Z91.14 [place] [address] [address] Jul, Chronic pain syndrome G89.4 ; Bilateral low back pain, with sciatica presence unspecified M54.5 ; Chronic prescription opiate use Z79.899 ; Essential hypertension I10 ; Hyperlipidemia, unspecified hyperlipidemia E78.5 ; CKD (chronic kidney disease) stage 3, GFR 30-59 ml/min N18.3 and Allergic rhinitis J30.9 [place] [address] [place] [id number] [address] [place] [phone] Jul, Chronic pain syndrome G89.4 and Anxiety F41.9 [place] [address] [place] [id number] [place] [phone] Jul, Screening for breast cancer Z12.31 and Major depressive disorder, recurrent episode, unspecified severity F33.9 [place] [address] [place] [id number] [address] [place] [phone] Jun, Chronic pain syndrome G89.4 and Anxiety F41.9 [place] [address] [place] [id number] [place] [phone] May, Chronic pain syndrome G89.4 and Anxiety F41.9 [place] [address] [place] [id number] [place] [phone] Apr, Anxiety F41.9 [place] [address] [place] [id number] [place] [phone] Apr, Chronic prescription opiate use Z79.899 ; Chronic pain syndrome G89.4 ; Essential hypertension I10 ; Allergic rhinitis J30.9 and CKD (chronic kidney disease) stage 3, GFR 30-59 ml/min N18.3 [place] [address] [place] [id number] [address] [place] [phone] Apr, [place] [address] [place] [id number] [place] [address] March, Anxiety F41.9 and Chronic pa in syndrome G89.4 [place] [address] [place] [id number] [address] [place] [phone] March, CKD (chronic kidney disease) stage 3, GFR 30-59 ml/min N18.3 ; B12 deficiency E53.8 and Hyperlipidemia, unspecified hyperlipidemia E78.5 [place] [address] [place] [id number] [place] [phone] March, Anxiety F41.9 and Chronic pa in syndrome G89.4 [place] [address] [place] [id number] [place] [phone] Feb, Anxiety F41.9 and Chronic pa in syndrome G89.4 [place] [address] [place] [id number] [place] [phone] Jan, B12 deficiency E53.8 [place] [address] [address] Jan, [place] [address] [address] Jan, Anxiety F41.9 ; Chronic pain syndrome G89.4 and Essential hypertension I10 [place] [address] [address] Jan, CKD (chronic kidney disease) stage 3, [...] Subacromial bursitis of right shoulder joint M75.51 [place] [address] [place] [id number] [address] [place] [address] 28 Dec, 2017 Essential hypertension I10 [place] [address] [place] [id number] [place] [phone] 15 Dec, 2017 Chronic pain syndrome G89.4 [place] [address] [address] Dec, Chronic pain syndrome G89.4 [place] [address] [place] [id number] [address] [place] [phone] Nov, [place] [address] [address] Nov, Chronic pain syndrome G89.4 and Anxiety F41.9 [facility] [address] [facility] [id number] [address] [place] [phone] Oct, Chronic pain syndrome G89.4 ; Other constipation K59.09 and Chronic prescription opiate use Z79.899 [facility] [address] [facility] [id number] [address] [place] [phone] Oct, Chronic pain syndrome G89.4 and Anxiety F41.9 [place] [address] [facility] [id number] [address] [place] [phone] Sep, Essential hypertension I10 [place] [address] [facility] [id number] [address] [place] [phone] Sep, Chronic pain syndrome G89.4 and Anxiety F41.9 [place] [address] [place] [id number] [place] [address] Aug, Chronic pain syndrome G89.4 and Anxiety F41.9 [place] [address] [facility] [id number] [address] [place] [phone] Jul, Essential hypertension I10 [place] [address] [facility] [id number] [address] [place] [phone] 22 Jul, 2017 Chronic obstructive pulmonar y disease, unspecified COPD type J44.9 [place] [address] [facility] [id number] [address] [place] [phone] Jul, Chronic pain syndrome G89.4 and Anxiety F41.9 [place] [address] [facility] [id number] [address] [place] [id number] 13 Jul, 2017 Chronic pain syndrome G89.4 ; Essential hypertension I10 ; Fibromyalgia M79.7 ; CKD (chronic kidney disease) stage 3, GFR 30-59 ml/min N18.3 ; Subacromial bursitis, right M75.51 and Goals of care, co unseling/discussion Z71.89 [place] [address] [facility] [id number] [address] [place] [phone] Jun, Chronic pain syndrome G89.4 and Anxiety F41.9 [facility] [address] [facility] [id number] [address] [place] [address] May, Chronic pain syndrome G89.4 and Anxiety F41.9 [facility] [address] [facility] [id number] [address] [place] [phone] Apr, Chronic pain syndrome G89.4 and Anxiety F41.9 [facility] [address] [facility] [id number] [address] [place] [address] Apr, Drug induced constipation K5 9.03 ; Chronic pain syndrome G89.4 and CKD (chronic kidney disease) stage 3, GFR 30-59 ml/min N18.3 [facility] [address] [facility] [id number] [address] [place] [id number] 02 Apr, 2017 Chronic pain syndrome G89.4 and Anxiety F41.9 [facility] [address] [facility] [id number] [address] [place] [phone] March, Chronic pain syndrome G89.4 and Anxiety F41.9 [facility] [address] [facility] [id number] [address] [place] [phone] March, Decreased GFR R94.4 [facility] [address] [facility] [id number] [address] [place] [phone] Feb, [facility] [address] [facility] [id number] [address] [place] [phone] Feb, Chronic pain syndrome G89.4 and Anxiety F41.9 [facility] [address] [facility] [id number] [address] [place] [phone] Jan, Decreased GFR R94.4 [facility] [address] [facility] [id number] [address] [place] [phone] Jan, Decreased GFR R94.4 [facility] [address] [facility] [id number] [address] [place] [phone] Jan, Allergic rhinitis J30.9 ; Es sential hypertension I10 ; Major depressive disorder, recurrent episode, unspecified severity F33.9 and Primary insomnia F51.01 [place] [address] [place] [id number] [address] [place] [phone] Jan, Acute right-sided thoracic b ack pain M54.6 ; Subacromial bursitis of right shoulder joint M75.51 ; Chronic pain syndrome G89.4 and Anxiety F41.9 [place] [address] [place] [id number] [place] [phone] Jan, Decreased GFR R94.4 [place] [address] [place] [id number] [place] [phone] Dec, Decreased GFR R94.4 [place] [address] [place] [id number] [place] [phone] Dec, Decreased GFR R94.4 [place] [address] [address] Dec, Decreased GFR R94.4 [place] [address] [place] [id number] [place] [address] Dec, Decreased GFR R94.4 [place] [address] [place] [id number] [place] [phone] Dec, Anxiety F41.9 and Bilateral low back pain, with sciatica presence unspecified M54.5 [place] [address] [address] Dec, Thrombocytosis D47.3 ; Hyper lipidemia, unspecified hyperlipidemia E78.5 ; Need for hepatitis C screening test Z11.59 and B12 deficiency E53.8 [place] [address] [place] [id number] [place] [phone] Nov, Need for hepatitis C screeni ng test Z11.59 [place] [address] [place] [id number] [place] [phone] Nov, Anxiety F41.9 and Bilateral low back pain, with sciatica presence unspecified M54.5 [facility] [address] [facility] [id number] [address] [place] [id number] 16 Oct, 2016 Bilateral low back pain, wit h sciatica presence unspecified M54.5 ; Chronic prescription opiate use Z79.899 ; Anxiety F41.9 ; Essential hypertension I10 ; Hyperlipidemia, unspecified hyperlipidemia E78.5 ; Health care maintenance Z00.00 and Thrombocytosis D47.3 [facility] [address] [facility] [id number] [address] [place] [phone] Sep, [facility] [address] [facility] [id number] [address] [place] [phone] Sep, [place] [address] [place] [address] Aug, [place] [address] [address] Jul, B12 deficiency E53.8 [facility] [address] [place] [id number] [place] [address] Jul, [place] [id number] [place] [address] Jul, Essential hypertension I10 ; Chronic pain syndrome G89.4 ; Anxiety F41.9 ; Screening for breast cancer Z12.39 ; Atherosclerosis of [place] coronary artery of [place] heart without angina pectoris I25.10 ; Major depressive disorder, recurrent episode, unspecified severity F33.9 ; Primary insomnia F51.01 and Allergic rhinitis J30.9 [facility] [address] [place] [id number] [place] [phone] Jun, [facility] [address] [place] [id number] [place] [address] Jun, Leg wound, right, initial en counter S81.801A and Encounter for immunization Z23 [facility] [address] [facility] [id number] [address] [place] [id number] Jun, Open wound of right ear, uns pecified open wound type, initial encounter S01.301A [facility] [address] [facility] [id number] [address] [place] [address] May, B12 deficiency E53.8 [facility] [address] [facility] [id number] [address] [place] [phone] May, [facility] [address] [facility] [id number] [address] [place] [phone] May, [facility] [address] [facility] [id number] [address] [place] [address] May, Chronic pain syndrome G89.4 ; Chronic prescription opiate use Z79.899 ; Allergic rhinitis J30.9 ; Essential hypertension I10 and Non-healing skin lesion L98.9 [facility] [address] [facility] [id number] [address] [place] [phone] Apr, [place] [address] [place] [id number] [place] [phone] March, [facility] [address] [facility] [id number] [address] [place] [address] Feb, [facility] [address] [facility] [id number] [address] [place] [address] Feb, [facility] [address] [facility] [id number] [address] [place] [address] Feb, Chronic pain syndrome G89.4 ; Anxiety F41.9 ; B12 deficiency E53.8 ; Allergic rhinitis J30.9 ; Fibromyalgia M79.7 ; Actinic keratosis L57.0 ; Skin rash R21 ; Open wound of right ear, unspecified open wound type, initial encounter S01.301A ; Subacromial bursitis, right M75.51 ; GERD (gastroesophageal reflux disease) K21.9 and Chronic obstructive pulmonary disease, unspecified COPD type J44.9 [facility] [address] [facility] [id number] [address] [place] [phone] Jan, [facility] [address] [place] [id number] [place] [phone] Jan, Essential hypertension I10 [facility] [address] [facility] [id number] [address] [place] [phone] Jan, [facility] [address] [facility] [id number] [address] [place] [phone] Jan, [facility] [address] [facility] [id number] [address] [place] [phone] Jan, [facility] [address] [facility] [id number] [address] [place] [phone] Dec, [facility] [address] [facility] [id number] [address] [place] [phone] Dec, Essential hypertension I10 [facility] [address] [facility] [id number] [address] [place] [phone] Dec, [facility] [address] [place] [id number] [place] [phone] Dec, B12 deficiency E53.8 and Ess ential hypertension I10 [facility] [address] [facility] [id number] [address] [place] [phone] Dec, [facility] [address] [facility] [id number] [address] [place] [address] Nov, Right shoulder pain M25.511 [facility] [address] [place] [address] Nov, Right shoulder pain M25.511 [facility] [address] [facility] [id number] [address] [place] [address] Nov, Essential hypertension I10 a nd B12 deficiency E53.8 [facility] [address] [facility] [id number] [address] [place] [address] Nov, Major depressive disorder, r ecurrent episode, unspecified severity F33.9 ; Anxiety F41.9 ; Chronic pain syndrome G89.4 ; Essential hypertension I10 ; Hyperlipidemia, unspecified hyperlipidemia E78.5 ; Chronic prescription opiate use Z79.899 ; Allergic rhinitis J30.9 ; B12 deficiency E53.8 and Right shoulder pain M25.511 [facility] [address] [place] [id number] [address] [place] [phone] Oct, [facility] [address] [facility] [id number] [address] [place] [phone] Oct, [facility] [address] [place] [id number] [place] [phone] Sep, [facility] [address] [place] [id number] [place] [phone] Sep, [facility] [address] [place] [id number] [place] [phone] Aug, [facility] [address] [place] [id number] [place] [phone] Aug, [facility] [address] [address] Aug, [facility] [address] [place] [id number] [place] [phone] Aug, Other constipation K59.09 ; Hyperlipidemia, unspecified hyperlipidemia E78.5 ; Essential hypertension I10 ; Primary insomnia F51.01 ; Anxiety F41.9 ; Chronic pain syndrome G89.4 ; Right shoulder pain M25.511 and Acute cystitis without hematuria N30.00 [facility] [address] [place] [id number] [place] [phone] Jul, [facility] [address] [place] [id number] [place] [phone] Jul, [facility] [address] [place] [id number] [place] [phone] Jun, [facility] [address] [place] [id number] [place] [phone] Jun, [facility] [address] [place] [id number] [place] [phone] Jun, [facility] [address] [id number] [address] [place] [phone] May, [facility] [address] [id number] [address] [place] [phone] May, Other chronic pain 338.29 ; Hypertension 401.9 and Constipation due to opioid therapy 564.09 [facility] [address] [id number] [address] [place] [phone] May, [facility] [address] [id number] [address] [place] [phone] May, [facility] [address] [id number] [address] [place] [phone] Apr, [facility] [address] [id number] [address] [place] [phone] Apr, Unspecified essential hypert ension 401.9 [facility] [address] [id number] [address] [place] [phone] Apr, [facility] [address] [id number] [address] [place] [phone] Apr, [facility] [address] [id number] [address] [place] [phone] Apr, [facility] [address] [id number] [address] [place] [phone] Apr, [facility] [address] [id number] [address] [place] [id number] Apr, [facility] [address] [id number] [address] [place] [id number] Apr, [facility] [address] [id number] [address] [place] [id number] March, Unspecified essential hypert ension 401.9 [facility] [address] [id number] [address] [place] [id number] March, [facility] [address] [id number] [address] [place] [id number] March, [facility] [address] [id number] [address] [place] [address], [place] [id number] 14 Feb, 2015 [facility] [address] [id number] [address] [place] [address], [place] [id number] Feb, [facility] [address] [id number] [address] [place] [address], [place] [id number] Jan, [facility] [address] [id number] [address] [place] [address], [place] [id number] Jan, [facility] [address] [id number] [address] [place] [address], [place] [id number] Jan, [facility] [address] [id number] [address] [place] [address], [place] [id number] Jan, [facility] [address] [id number] [address] [place] [address], [place] [id number] Jan, [facility] [address] [id number] [address] [place] [address], [place] [id number] Jan, [facility] [address] [id number] [address] [place] [address], [place] [id number] Jan, [facility] [address] [id number] [address] [place] [address], [place] [id number] 16 Dec, 2014 [facility] [address] [id number] [address] [place] [address], [place] [address] 16 Dec, 2014 [facility] [address] [id number] [address] [place] [address], [place] [address] Dec, [facility] [address] [id number] [address] [place] [address], [place] [address] Nov, [facility] [address] [id number] [address] [place] [address], [place] [address] Nov, [facility] [address] [id number] [address] [place] [id number] Oct, [facility] [address] [id number] [address] [place] [address], [place] [address] Oct, [facility] [address] [id number] [address] [place] [address], [place] [address] Oct, [facility] [address] [id number] [address] [place] [address], [place] [address] Oct, [facility] [address] [id number] [address] [place] [address], [place] [address] Oct, [facility] [address] [id number] [address] [place] [address], [place] [address] Oct, [facility] [address] [id number] [address] [place] [address], [place] [address] Oct, [facility] [address] [id number] [address] [place] [address], [place] [address] Oct, [facility] [address] [id number] [address] [place] [address], [place] [address] Sep, [facility] [address] [id number] [address] [place] [address], [place] [address] Sep, [facility] [address] [id number] [address] [place] [address], [place] [address] Sep, [facility] [address] [id number] [address] [place] [address], [place] [address] Sep, [facility] [address] [id number] [address] [place] [address], [place] [address] Sep, [facility] [address] [id number] [address] [place] [address], [place] [address] Sep, [facility] [address] [id number] [address] [place] [address], [place] [address] Aug, [facility] [address] [id number] [address] [place] [address], [place] [address] Aug, [facility] [address] [id number] [address] [place] [address], [place] [address] Aug, [facility] [address] [id number] [address] [place] [address], [place] [address] Aug, [facility] [address] [id number] [address] [place] [address], [place] [address] Aug, [facility] [address] [id number] [address] [place] [address], [place] [address] Aug, [facility] [address] [id number] [address] [place] [address], [place] [address] Aug, [facility] [address] [id number] [address] [place] [address], [place] [address] Aug, [facility] [address] [id number] [address] [place] [address], [place] [address] Aug, [facility] [address] [id number] [address] [place] [address], [place] [address] Aug, [facility] [address] [id number] [address] [place] [address], [place] [address] Jul, [facility] [address] [id number] [address] [place] [address], [place] [address] Jul, [facility] [address] [id number] [address] [place] [address], [place] [address] Jul, [facility] [address] [id number] [address] [place] [address], [place] [address] Jul, [facility] [address] [id number] [address] [place] [address], [place] [address] Jul, [facility] [address] [id number] [address] [place] [address], [place] [address] Jul, [facility] [address] [id number] [address] [place] [address], [place] [address] Jun, [facility] [address] [id number] [address] [place] [address], [place] [address] Jun, [facility] [address] [id number] [facility] [place] [address] Jun, [facility] [address] [id number] [facility] [address] Jun, [facility] [address] [id number] [facility] [address] Jun, [facility] [address] [id number] [address] [place] [address], [place] [address] Jun, [facility] [address] [id number] [address] [place] [address], [place] [address] May, [facility] [address] [id number] [address] [place] [address], [place] [address] May, [facility] [address] [id number] [address] [place] [address], [place] [address] May, [facility] [address] [id number] [address] [place] [address], [place] [address] May, [facility] [address] [id number] [address] [place] [address], [place] [address] May, [facility] [address] [id number] [address] [place] [address], [place] [address] Apr, [facility] [address] [id number] [address] [place] [address], [place] [address] Apr, [facility] [address] [id number] [address] [place] [address], [place] [address] Apr, [facility] [address] [id number] [address] [place] [address], [place] [address] Apr, [facility] [address] [id number] [address] [place] [address], [place] [address] March, [facility] [address] [id number] [address] [place] [address], [place] [address] March, [facility] [address] [id number] [address] [place] [address], [place] [address] March, [facility] [address] [id number] [address] [place] [address], [place] [address] March, [facility] [address] [id number] [address] [place] [address], [place] [address] March[facility] [address] [id number] [address] [place] [address], [place] [address] March, [facility] [address] [id number] [address] [place] [address], [place] [address] Feb, [facility] [address] [id number] [address] [place] [address], [place] [address] Feb, [facility] [address] [id number] [address] [place] [address], [place] [address] Feb, [facility] [address] [id number] [address] [place] [address], [place] [address] Feb, [facility] [address] [id number] [address] [place] [address], [place] [address] Feb, [facility] [address] [id number] [address] [place] [address], [place] [address] Feb, [facility] [address] [id number] [address] [place] [address], [place] [address] Feb, [facility] [address] [id number] [address] [place] [address], [place] [address] Feb, [facility] [address] [id number] [address] [place] [address], [place] [address] Jan, [facility] [address] [id number] [address] [place] [address], [place] [address] Jan, [facility] [address] [id number] [address] [place] [address], [place] [address] Jan, [facility] [address] [id number] [address] [place] [address], [place] [address] Jan, [facility] [address] [id number] [address] [place] [address], [place] [address] Jan, [facility] [address] [id number] [address] [place] [address], [place] [address] Jan, [facility] [address] [id number] [address] [place] [address], [place] [address] Dec, [facility] [address] [id number] [address] [place] [address], [place] [address] Dec, [facility] [address] [id number] [address] [place] [address], [place] [address] Nov, [facility] [address] [id number] [address] [place] [address], [place] [address] Nov, [facility] [address] [id number] [address] [place] [address], [place] [address] Nov, [facility] [address] [id number] [address] [place] [address], [place] [address] Nov, [facility] [address] [id number] [address] [place] [address], [place] [address] Nov, [facility] [address] [id number] [address] [place] [address], [place] [address] Nov, [facility] [address] [id number] [address] [place] [address], [place] [address] Nov, [facility] [address] [id number] [address] [place] [address], [place] [address] Nov, [facility] [address] [id number] [address] [place] [address], [place] [address] Nov, [facility] [address] [id number] [address] [place] [address], [place] [address] Nov, [facility] [address] [id number] [address] [place] [address], [place] [address] Nov, [facility] [address] [id number] [address] [place] [address], [place] [address] Nov, [facility] [address] [id number] [address] [place] [id number] Nov, [facility] [address] [id number] [address] [place] [id number] Nov, [facility] [address] [id number] [address] [place] [id number] Nov, [facility] [address] [id number] [address] [place] [id number] Oct, [facility] [address] [id number] [address] [place] [id number] Oct, [facility] [address] [id number] [address] [place] [id number] Oct, [facility] [address] [id number] [address] [place] [phone] Oct, [facility] [address] [id number] [address] [place] [phone] Oct, [facility] [address] [id number] [address] [place] [id number] Oct, [facility] [address] [id number] [address] [place] [id number] Oct, [facility] [address] [id number] [address] [place] [id number] Oct, [facility] [address] [id number] [address] [place] [phone] Oct, [facility] [address] [id number] [address] [place] [phone] Aug, [facility] [address] [id number] [address] [place] [phone] Aug, IMMUNIZATIONS No Known Immunizations SOCIAL HISTORY Never Assessed REASON FOR VISIT EMR-[facility] PLAN OF CARE VITAL SIGNS MEDICATIONS Medication Instructions Dosage Frequency Start Date End Date Duration S tatus Ipratropium-Albuterol 20-100 mcg/actuation inhale 1 puff by Inhalation route ; may take additional puffs as needed 4 times per day Jun, Active Aspirin 81 mg take 1 tablet (81 mg) by oral route once daily Nov, Active amlodipine 5 mg take 1 tablet by Oral route 2 times per day Jan, Active Clonazepam 0.5 mg take 1 tablet by Oral route 2 times per day PRN Anxiety Sep, Active Multivitamin 1 Tablet 1 time per day Aug, Active Omeprazole 20 mg take 1 capsules by Oral route b efore meals 2 times per day Jan, Active morphine 30 mg take 1 tablet (30 mg) by oral route jeannette ry 12 hours Jan, Active Percocet 10-325 mg take 1 tablet by Oral route as need ed every 4 hours PRN Jan, Active Augmentin 875-125 mg 1 tablet by Oral route 2 times pe r day for 14 day(s) Nov, Active Nitroglycerin 0.4 mg 1 tablet by Subling ual route every 5 PRN chest pain; NTE 3 tabs in 15 min Jun, Active Lisinopril-Hydrochlorothiazide 20-25 mg take 1 tablet by Oral route 1 time per day Take in AM Nov, Active RESULTS No Results PROCEDURES No Known procedures INSTRUCTIONS MEDICATIONS ADMINISTERED No Known Medications MEDICAL (GENERAL) HISTORY Type Description Date Medical History hypertension Medical History asthma Medical History Arthritis Medical History Hypoglycemia Medical History Heart Cath 11/05/2013 Medical History herniated disc--Seen by Dr. Troy Michelle pain specialist in [place], [place] Medical History Chronic low back pain [...]
--- OUTSIDE RECORDS SUMMARY | 2020-06-19 02:14 | XMS REPORT ---
Author Author Mahsa Lewis Doctor Organization [facility] Address Unknown Phone Unavailable Care Team Providers Care Ultrasound Manager Name Role Phone Migration, Doctor Unavailable Unavailable PROBLEMS Type Condition ICD9-CM Code [id number] Code Onset Dates Condition S tatus SNOMED Code Problem Other constipation K59.09 Active 1 [id number] Problem Primary insomnia F51.01 Active 193 027250 Problem Chronic pain syndrome G89.4 Active 177171335 Problem Essential hypertension I10 Active 93473190 Problem Anxiety F41.9 Active 24470907 Problem Major depressive disorder, recurrent episode, un specified severity F33.9 Active 05034923 Problem Atherosclerosis of [place] co ronary artery of [place] heart without angina pectoris I25.10 Active 0760701151398 Problem Bilateral low back pain, with sciatica presence unspecifie d M54.5 Active 489087491 Problem Allergic rhinitis J30.9 Active 61 781708 Problem Fibromyalgia M79.7 Active 8307963 7 Problem Degenerative disc disease, thoracic M51.34 Active 52126140 Problem B12 deficiency E53.8 Active 44719 4004 Problem Degenerative disc disease, cervical M50.30 Active 59509550 Problem Hyperlipidemia, unspecified hyperlipidemia E78.5 Active 85883102 Problem GERD (gastroesophageal reflux disease) K21.9 Active 897473923 Problem Chronic obstructive pulmonary disease, unspecified COPD ty pe J44.9 Active 43059831 Problem CKD (chronic kidney disease) stage 3, GFR 30-59 ml/min N18.3 Active 714216184 Problem Cannabis abuse F12.10 Active 18357 009 ALLERGIES No Information ENCOUNTERS Encounter Location Date Diagnosis [facility] [address] [facility] [id number] [address] [place] [address] Jan, Periumbilical hernia K42.9 ; CKD (chronic kidney disease) stage 3, GFR 30-59 ml/min N18.3 ; Essential hypertension I10 ; GERD (gastroesophageal reflux disease) K21.9 ; Hyperlipidemia, unspecified hyperlipidemia E78.5 and Major depressive disorder, recurrent episode, unspecified severity F33.9 [facility] [address] [id number] [address] [place] [address] 12 Dec, 2018 Anxiety F41.9 [facility] [address] [id number] [address] [place] [address] 17 Nov, 2018 Elevated platelet count R79. 89 [facility] [address] [id number] [address] [place] [address] 15 Nov, 2018 [facility] [address] [id number] [address] [place] [address] Nov, Elevated platelet count R79. 89 [place] [address] [id number] [address] [place] [address] Nov, Anxiety F41.9 [place] [address] [facility] [id number] [address] [place] [address] 14 Nov, 2018 Bilateral low back pain, wit h sciatica presence unspecified M54.5 ; Cervicalgia M54.2 ; Degenerative disc disease, cervical M50.30 and Degenerative disc disease, thoracic M51.34 [place] [address] [id number] [address] [place] [address] Nov, Chronic pain syndrome G89.4 and Bilateral low back pain, with sciatica presence unspecified M54.5 [place] [address] [facility] [id number] [address] [place] [address] Oct, Umbilical hernia without obs truction and without gangrene K42.9 [facility] [address] [id number] [address] [place] [address] Oct, Chronic pain syndrome G89.4 [place] [address] [facility] [id number] [address] [place] [address] Oct, Chronic pain syndrome G89.4 and Anxiety F41.9 [facility] [address] [id number] [address] [place] [address] Oct, Elevated platelet count R79. 89 [facility] [address] [address] 10 Oct, 2018 CKD (chronic kidney disease) stage 3, GFR 30-59 ml/min N18.3 ; Other chest pain R07.89 ; Acute midline thoracic back pain M54.6 ; Essential hypertension I10 and History of osteoporosis Z87.[address] [address] Sep, Chronic pain syndrome G89.4 [place] [address] [address] Sep, [address] [address] Sep, Anxiety F41.9 and Chronic pa in syndrome G89.[address] [address] 18 Aug, 2018 Chronic pain syndrome G89.4 and Anxiety F41.[address] [address] Aug, [address] [address] 03 Aug, 2018 Cannabis abuse F12.10 and Co ntrolled substance agreement terminated Z91.[address] [address] 28 Jul, 2018 Chronic pain syndrome G89.4 ; Bilateral low back pain, with sciatica presence unspecified M54.5 ; Chronic prescription opiate use Z79.899 ; Essential hypertension I10 ; Hyperlipidemia, unspecified hyperlipidemia E78.5 ; CKD (chronic kidney disease) stage 3, GFR 30-59 ml/min N18.3 and Allergic rhinitis J30.[address] [address] 20 Jul, 2018 Chronic pain syndrome G89.4 and Anxiety F41.[address] [address] Jul, Screening for breast cancer Z12.31 and Major depressive disorder, recurrent episode, unspecified severity F33.9 [place] [address] [place] [id number] [place] [address] Jun, Chronic pain syndrome G89.4 and Anxiety F41.9 [place] [address] [place] [id number] [address] [place] [address] May, Chronic pain syndrome G89.4 and Anxiety F41.9 [place] [address] [place] [id number] [place] [address] Apr, Anxiety F41.9 [place] [address] [address] Apr, Chronic prescription opiate use Z79.899 ; Chronic pain syndrome G89.4 ; Essential hypertension I10 ; Allergic rhinitis J30.9 and CKD (chronic kidney disease) stage 3, GFR 30-59 ml/min N18.3 [place] [address] [address] Apr, [place] [address] [place] [id number] [place] [address] March, Anxiety F41.9 and Chronic pa in syndrome G89.4 [place] [address] [place] [id number] [place] [address] March, CKD (chronic kidney disease) stage 3, GFR 30-59 ml/min N18.3 ; B12 deficiency E53.8 and Hyperlipidemia, unspecified hyperlipidemia E78.5 [place] [address] [place] [id number] [address] [place] [address] March, Anxiety F41.9 and Chronic pa in syndrome G89.4 [place] [address] [place] [id number] [place] [address] Feb, Anxiety F41.9 and Chronic pa in syndrome G89.4 [place] [address] [place] [id number] [place] [address] Jan, B12 deficiency E53.8 [place] [address] [address] Jan, [place] [address] [address] Jan, Anxiety F41.9 ; Chronic pain syndrome G89.4 and Essential hypertension I10 [place] [address] [address] Jan, CKD (chronic kidney disease) stage 3, [...] of right shoulder joint M75.51 [place] [address] [address] Dec, Essential hypertension I10 [place] [address] [address] 15 Dec, 2017 Chronic pain syndrome G89.4 [place] [address] [address] Dec, Chronic pain syndrome G89.4 [place] [address] [address] Nov, [place] [address] [address] Nov, Chronic pain syndrome G89.4 and Anxiety F41.9 [place] [address] [address] Oct, Chronic pain syndrome G89.4 ; Other constipation K59.09 and Chronic prescription opiate use Z79.899 [place] [address] [place] [id number] [place] [address] 08 Oct, 2017 Chronic pain syndrome G89.4 and Anxiety F41.9 [place] [address] [place] [id number] [address] [place] [address] Sep, Essential hypertension I10 [place] [address] [place] [id number] [address] [place] [address] 16 Sep, 2017 Chronic pain syndrome G89.4 and Anxiety F41.9 [place] [address] [place] [id number] [address] [place] [address] Aug, Chronic pain syndrome G89.4 and Anxiety F41.9 [place] [address] [place] [id number] [address] [place] [address] 28 Jul, 2017 Essential hypertension I10 [place] [address] [address] Jul, Chronic obstructive pulmonar y disease, unspecified COPD type J44.9 [place] [address] [place] [id number] [address] [place] [address] Jul, Chronic pain syndrome G89.4 and Anxiety F41.9 [place] [address] [place] [id number] [address] [place] [address] 13 Jul, 2017 Chronic pain syndrome G89.4 ; Essential hypertension I10 ; Fibromyalgia M79.7 ; CKD (chronic kidney disease) stage 3, GFR 30-59 ml/min N18.3 ; Subacromial bursitis, right M75.51 and Goals of care, co unseling/discussion Z71.89 [place] [address] [place] [id number] [address] [place] [address] Jun, Chronic pain syndrome G89.4 and Anxiety F41.9 [place] [address] [place] [id number] [address] [place] [address] May, Chronic pain syndrome G89.4 and Anxiety F41.9 [place] [address] [place] [id number] [address] [place] [address] Apr, Chronic pain syndrome G89.4 and Anxiety F41.9 [place] [address] [facility] [id number] [address] [place] [address] Apr, Drug induced constipation K5 9.03 ; Chronic pain syndrome G89.4 and CKD (chronic kidney disease) stage 3, GFR 30-59 ml/min N18.3 [place] [address] [facility] [id number] [address] [place] [address] Apr, Chronic pain syndrome G89.4 and Anxiety F41.9 [place] [address] [facility] [id number] [address] [place] [address] March, Chronic pain syndrome G89.4 and Anxiety F41.9 [place] [address] [facility] [id number] [address] [place] [address] March, Decreased GFR R94.4 [place] [address] [facility] [id number] [address] [place] [address] Feb, [place] [address] [facility] [id number] [address] [place] [address] Feb, Chronic pain syndrome G89.4 and Anxiety F41.9 [place] [address] [facility] [id number] [address] [place] [address] Jan, Decreased GFR R94.4 [place] [address] [facility] [id number] [address] [place] [address] Jan, Decreased GFR R94.4 [place] [address] [facility] [id number] [address] [place] [address] Jan, Allergic rhinitis J30.9 ; Es sential hypertension I10 ; Major depressive disorder, recurrent episode, unspecified severity F33.9 and Primary insomnia F51.01 [facility] [address] [facility] [id number] [address] [place] [address] 10 Jan, 2017 Acute right-sided thoracic b ack pain M54.6 ; Subacromial bursitis of right shoulder joint M75.51 ; Chronic pain syndrome G89.4 and Anxiety F41.9 [facility] [address] [place] [id number] [address] [place] [address] Jan, Decreased GFR R94.4 [facility] [address] [place] [id number] [address] [place] [address] Dec, Decreased GFR R94.4 [place] [address] [place] [id number] [place] [address] Dec, Decreased GFR R94.4 [place] [address] [facility] [id number] [address] [place] [address] Dec, Decreased GFR R94.4 [place] [address] [facility] [id number] [place] [address] Dec, Decreased GFR R94.4 [place] [address] [place] [id number] [place] [address] Dec, Anxiety F41.9 and Bilateral low back pain, with sciatica presence unspecified M54.5 [place] [address] [place] [id number] [address] [place] [address] Dec, Thrombocytosis D47.3 ; Hyper lipidemia, unspecified hyperlipidemia E78.5 ; Need for hepatitis C screening test Z11.59 and B12 deficiency E53.8 [place] [address] [address] Nov, Need for hepatitis C screeni ng test Z11.59 [place] [address] [place] [id number] [address] [place] [address] Nov, Anxiety F41.9 and Bilateral low back pain, with sciatica presence unspecified M54.5 [place] [address] [place] [id number] [place] [address] Oct, Bilateral low back pain, wit h sciatica presence unspecified M54.5 ; Chronic prescription opiate use Z79.899 ; Anxiety F41.9 ; Essential hypertension I10 ; Hyperlipidemia, unspecified hyperlipidemia E78.5 ; Health care maintenance Z00.00 and Thrombocytosis D47.3 [facility] [address] [facility] [id number] [address] [place] [address] Sep, [facility] [address] [facility] [id number] [address] [place] [address] Sep, [place] [id number] [place] [address] Aug, [facility] [address] [address] Jul, B12 deficiency E53.8 [place] [address] [address] Jul, [place] [address] [address] Jul, Essential hypertension I10 ; Chronic pain syndrome G89.4 ; Anxiety F41.9 ; Screening for breast cancer Z12.39 ; Atherosclerosis of [place] coronary artery of [place] heart without angina pectoris I25.10 ; Major depressive disorder, recurrent episode, unspecified severity F33.9 ; Primary insomnia F51.01 and Allergic rhinitis J30.9 [place] [address] [place] [id number] [address] [place] [address] Jun, [facility] [address] [place] [id number] [address] [place] [address] Jun, Leg wound, right, initial en counter S81.801A and Encounter for immunization Z23 [place] [address] [facility] [id number] [address] [place] [address] Jun, Open wound of right ear, uns pecified open wound type, initial encounter S01.301A [place] [address] [facility] [id number] [address] [place] [address] May, B12 deficiency E53.8 [place] [address] [place] [id number] [address] [place] [address] May, [place] [address] [place] [id number] [address] [place] [address] May, [facility] [address] [address] May, Chronic pain syndrome G89.4 ; Chronic prescription opiate use Z79.899 ; Allergic rhinitis J30.9 ; Essential hypertension I10 and Non-healing skin lesion L98.9 [facility] [address] [address] Apr, [facility] [address] [address] March, [facility] [address] [address] Feb, [place] [address] [address] Feb, [facility] [address] [address] Feb, Chronic pain syndrome G89.4 ; Anxiety F41.9 ; B12 deficiency E53.8 ; Allergic rhinitis J30.9 ; Fibromyalgia M79.7 ; Actinic keratosis L57.0 ; Skin rash R21 ; Open wound of right ear, unspecified open wound type, initial encounter S01.301A ; Subacromial bursitis, right M75.51 ; GERD (gastroesophageal reflux disease) K21.9 and Chronic obstructive pulmonary disease, unspecified COPD type J44.9 [facility] [address] [place] [id number] [address] [place] [address] Jan, [facility] [address] [address] Jan, Essential hypertension I10 [facility] [address] [address] Jan, [facility] [address] [address] Jan, [facility] [address] [place] [id number] [address] [place] [address] Jan, [facility] [address] [address] Dec, [facility] [address] [address] Dec, Essential hypertension I10 [facility] [address] [address] Dec, [facility] [address] [address] Dec, B12 deficiency E53.8 and Ess ential hypertension I10 [place] [address] [address] Dec, [facility] [address] [address] Nov, Right shoulder pain M25.511 [place] [address] [address] Nov, Right shoulder pain M25.511 [place] [address] [address] Nov, Essential hypertension I10 a nd B12 deficiency E53.8 [place] [address] [address] Nov, Major depressive disorder, r ecurrent episode, unspecified severity F33.9 ; Anxiety F41.9 ; Chronic pain syndrome G89.4 ; Essential hypertension I10 ; Hyperlipidemia, unspecified hyperlipidemia E78.5 ; Chronic prescription opiate use Z79.899 ; Allergic rhinitis J30.9 ; B12 deficiency E53.8 and Right shoulder pain M25.511 [facility] [address] [address] Oct, [place] [address] [address] Oct, [facility] [address] [facility] [id number] [address] [place] [address] Sep, [facility] [address] [facility] [id number] [address] [place] [address] Sep, [facility] [address] [facility] [id number] [address] [place] [address] Aug, [facility] [address] [facility] [id number] [address] [place] [address] Aug, [facility] [address] [facility] [id number] [address] [place] [address] Aug, [facility] [address] [facility] [id number] [address] [place] [address] Aug, Other constipation K59.09 ; Hyperlipidemia, unspecified hyperlipidemia E78.5 ; Essential hypertension I10 ; Primary insomnia F51.01 ; Anxiety F41.9 ; Chronic pain syndrome G89.4 ; Right shoulder pain M25.511 and Acute cystitis without hematuria N30.00 [facility] [address] [place] [id number] [address] [place] [address] Jul, [facility] [address] [facility] [id number] [address] [place] [address] Jul, [facility] [address] [place] [id number] [address] [place] [address] Jun, [facility] [address] [facility] [id number] [address] [place] [address] Jun, [facility] [address] [facility] [id number] [address] [place] [address] Jun, [facility] [address] [facility] [id number] [address] [place] [address] May, [facility] [address] [facility] [id number] [address] [place] [address] May, Other chronic pain 338.29 ; Hypertension 401.9 and Constipation due to opioid therapy 564.09 [facility] [address] [id number] [address] [place] [address] 17 May, 2015 [facility] [address] [id number] [address] [place] [address] 15 May, 2015 [facility] [address] [id number] [address] [place] [address] 17 Apr, 2015 [facility] [address] [id number] [address] [place] [address] 17 Apr, 2015 Unspecified essential hypert ension 401.9 [facility] [address] [id number] [address] [place] [address] 16 Apr, 2015 [facility] [address] [id number] [address] [place] [address] Apr, [facility] [address] [id number] [address] [place] [address] Apr, [facility] [address] [id number] [address] [place] [address] Apr, [facility] [address] [id number] [address] [place] [address] Apr, [facility] [address] [id number] [address] [place] [address] Apr, [facility] [address] [id number] [address] [place] [address] March, Unspecified essential hypert ension 401.9 [facility] [address] [id number] [address] [place] [phone] March, [facility] [address] [id number] [address] [place] [address] March, [facility] [address] [id number] [address] [place] [phone] 14 Feb, 2015 [facility] [address] [id number] [address] [place] [phone] 13 Feb, 2015 [facility] [address] [id number] [address] [place] [address], [place] [address] Jan, [facility] [address] [id number] [address] [place] [address], [place] [address] 23 Jan, 2015 [facility] [address] [id number] [address] [place] [address], [place] [address] 17 Jan, 2015 [facility] [address] [id number] [address] [place] [address], [place] [address] 17 Jan, 2015 [facility] [address] [id number] [address] [place] [address], [place] [address] Jan, [facility] [address] [id number] [address] [place] [address], [place] [address] Jan, [facility] [address] [id number] [address] [place] [address], [place] [address] Jan, [facility] [address] [id number] [address] [place] [address], [place] [address] 16 Dec, 2014 [facility] [address] [id number] [address] [place] [address], [place] [address] Dec, [facility] [address] [id number] [address] [place] [address], [place] [address] Dec, [facility] [address] [id number] [address] [place] [address], [place] [address] Nov, [facility] [address] [id number] [address] [place] [address], [place] [address] Nov, [facility] [address] [id number] [address] [place] [address], [place] [address] Oct, [facility] [address] [id number] [address] [place] [address], [place] [address] Oct, [facility] [address] [id number] [address] [place] [address], [place] [address] Oct, [facility] [address] [id number] [address] [place] [address] Oct, [facility] [address] [id number] [address] [place] [address], [place] [address] Oct, [facility] [address] [id number] [address] [place] [address], [place] [address] Oct, [facility] [address] [id number] [address] [place] [address], [place] [address] Oct, [facility] [address] [id number] [address] [place] [address], [place] [address] Oct, [facility] [address] [id number] [address] [place] [address], [place] [address] Sep, [facility] [address] [id number] [address] [place] [address], [place] [address] Sep, [facility] [address] [id number] [address] [place] [address], [place] [address] Sep, [facility] [address] [id number] [address] [place] [address], [place] [address] Sep, [facility] [address] [id number] [address] [place] [address], [place] [address] Sep, [facility] [address] [id number] [address] [place] [address], [place] [address] Sep, [facility] [address] [id number] [address] [place] [address], [place] [address] Aug, [facility] [address] [id number] [address] [place] [address] Aug, [facility] [address] [id number] [address] [place] [address], [place] [address] Aug, [facility] [address] [id number] [address] [place] [address], [place] [address] Aug, [facility] [address] [id number] [address] [place] [address], [place] [address] Aug, [facility] [address] [id number] [facility] [place] [address] Aug, [facility] [address] [id number] [address] [place] [address], [place] [address] Aug, [facility] [address] [id number] [address] [place] [address], [place] [address] Aug, [facility] [address] [id number] [address] [place] [address], [place] [address] Aug, [facility] [address] [id number] [address] [place] [address], [place] [address] Aug, [facility] [address] [id number] [address] [place] [address], [place] [address] Jul, [facility] [address] [id number] [address] [place] [address], [place] [address] Jul, [facility] [address] [id number] [address] [place] [address], [place] [address] Jul, [facility] [address] [id number] [address] [place] [address], [place] [address] Jul, [facility] [address] [id number] [address] [place] [address], [place] [address] Jul, [facility] [address] [id number] [address] [place] [address], [place] [address] Jul, [facility] [address] [id number] [address] [place] [address], [place] [address] Jun, [facility] [address] [id number] [address] [place] [address], [place] [address] Jun, [facility] [address] [id number] [address] [place] [address], [place] [address] Jun, [facility] [address] [id number] [address] [place] [address], [place] [address] Jun, [facility] [address] [id number] [address] [place] [address], [place] [address] Jun, [facility] [address] [id number] [facility] [place] [address] Jun, [facility] [address] [id number] [address] [place] [address], [place] [address] May, [facility] [address] [id number] [address] [place] [address], [place] [address] May, [facility] [address] [id number] [address] [place] [address], [place] [address] May, [facility] [address] [id number] [address] [place] [address], [place] [address] May, [facility] [address] [id number] [address] [place] [address], [place] [address] May, [facility] [address] [id number] [address] [place] [address], [place] [address] Apr, [facility] [address] [id number] [address] [place] [address], [place] [address] Apr, [facility] [address] [id number] [address] [place] [address], [place] [address] Apr, [facility] [address] [id number] [address] [place] [address], [place] [address] Apr, [facility] [address] [id number] [address] [place] [address], [place] [address] March, [facility] [address] [id number] [address] [place] [address], [place] [address] March, [facility] [address] [id number] [address] [place] [address], [place] [address] March, [facility] [address] [id number] [address] [place] [address], [place] [address] March, [facility] [address] [id number] [address] [place] [address], [place] [address] March, [facility] [address] [id number] [address] [place] [address], [place] [address] March, [facility] [address] [id number] [facility] [place] [address] Feb, [facility] [address] [id number] [address] [place] [address], [place] [address] Feb, [facility] [address] [id number] [address] [place] [address], [place] [address] Feb, [facility] [address] [id number] [address] [place] [address], [place] [address] Feb, [facility] [address] [id number] [address] [place] [address], [place] [address] Feb, [facility] [address] [id number] [address] [place] [address], [place] [address] Feb, [facility] [address] [id number] [address] [place] [address], [place] [address] Feb, [facility] [address] [id number] [address] [place] [address], [place] [address] Feb, [facility] [address] [id number] [address] [place] [address], [place] [address] Jan, [facility] [address] [id number] [address] [place] [address], [place] [address] Jan, [facility] [address] [id number] [address] [place] [address], [place] [address] Jan, [facility] [address] [id number] [address] [place] [address], [place] [address] Jan, [facility] [address] [id number] [address] [place] [address], [place] [address] Jan, [facility] [address] [id number] [address] [place] [address], [place] [address] Jan, [facility] [address] [id number] [address] [place] [address], [place] [address] Dec, [facility] [address] [id number] [address] [place] [address], [place] [address] Dec, [facility] [address] [id number] [address] [place] [address], [place] [address] Nov, [facility] [address] [id number] [address] [place] [address], [place] [address] Nov, [facility] [address] [id number] [address] [place] [address], [place] [address] Nov, [facility] [address] [id number] [address] [place] [address], [place] [address] Nov, [facility] [address] [id number] [address] [place] [address], [place] [address] Nov, [facility] [address] [id number] [address] [place] [address], [place] [address] Nov, [facility] [address] [id number] [address] [place] [address], [place] [address] Nov, [facility] [address] [id number] [address] [place] [address], [place] [address] Nov, [facility] [address] [id number] [address] [place] [address], [place] [address] Nov, [facility] [address] [id number] [address] [place] [address], [place] [address] Nov, [facility] [address] [id number] [address] [place] [address], [place] [address] Nov, [facility] [address] [id number] [address] [place] [address], [place] [address] Nov, [facility] [address] [id number] [address] [place] [address], [place] [address] Nov, [facility] [address] [id number] [address] [place] [address], [place] [address] Nov, [facility] [address] [id number] [address] [place] [address] Nov, [facility] [address] [id number] [address] [place] [address] Oct, [facility] [address] [id number] [address] [place] [address] Oct, [facility] [address] [id number] [address] [place] [address] Oct, [facility] [address] [id number] [address] [place] [address] Oct, [facility] [address] [id number] [address] [place] [address] Oct, [facility] [address] [id number] [address] [place] [address] Oct, [facility] [address] [id number] [address] [place] [address] Oct, [facility] [address] [id number] [address] [place] [address] Oct, [facility] [address] [id number] [address] [place] [address] Oct, [facility] [address] [id number] [address] [place] [address] Aug, [facility] [address] [id number] [address] [place] [address] Aug, IMMUNIZATIONS No Known Immunizations SOCIAL HISTORY Never Assessed REASON FOR VISIT [facility] [place] PLAN OF CARE VITAL SIGNS MEDICATIONS No Known Medications RESULTS No Results PROCEDURES No Known procedures INSTRUCTIONS MEDICATIONS ADMINISTERED No Known Medications MEDICAL (GENERAL) HISTORY Type Description Date Medical History hypertension Medical History asthma Medical History Arthritis Medical History Hypoglycemia Medical History Heart Cath 11/05/2013 Medical History herniated disc--Seen by Dr. Troy Michelle pain specialist in [place], [place] Medical History Chronic low back pain [...]
--- OUTSIDE RECORDS SUMMARY | 2020-06-19 02:14 | XMS REPORT ---
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 Name Role Phone Migration, Doctor Unavailable Unavailable PROBLEMS Type Condition ICD9-CM Code SHL45-NA Code Onset Dates Condition S tatus SNOMED Code Problem Other constipation K59.09 Active 1 [id number] Problem Primary insomnia F51.01 Active 193 023677 Problem Chronic pain syndrome G89.4 Active 054233484 Problem Essential hypertension I10 Active 35132743 Problem Anxiety F41.9 Active 67615980 Problem Major depressive disorder, recurrent episode, un specified severity F33.9 Active 57239858 Problem Atherosclerosis of [place] co ronary artery of [place] heart without angina pectoris I25.10 Active [id number] Problem Bilateral low back pain, with sciatica presence unspecifie d M54.5 Active 276427440 Problem Allergic rhinitis J30.9 Active 61 252329 Problem Fibromyalgia M79.7 Active 5117006 7 Problem Degenerative disc disease, thoracic M51.34 Active 98319112 Problem B12 deficiency E53.8 Active 54943 4004 Problem Degenerative disc disease, cervical M50.30 Active 29820637 Problem Hyperlipidemia, unspecified hyperlipidemia E78.5 Active 13282223 Problem GERD (gastroesophageal reflux disease) K21.9 Active 349571178 Problem Chronic obstructive pulmonary disease, unspecified COPD ty pe J44.9 Active 01159408 Problem CKD (chronic kidney disease) stage 3, GFR 30-59 ml/min N18.3 Active 965206496 Problem Cannabis abuse F12.10 Active 11562 009 ALLERGIES No Information ENCOUNTERS Encounter Location Date Diagnosis [facility] [address] [facility] [id number] [address] [place] [address] Jan, Periumbilical hernia K42.9 ; CKD (chronic kidney disease) stage 3, GFR 30-59 ml/min N18.3 ; Essential hypertension I10 ; GERD (gastroesophageal reflux disease) K21.9 ; Hyperlipidemia, unspecified hyperlipidemia E78.5 and Major depressive disorder, recurrent episode, unspecified severity F33.9 [facility] [address] [id number] [address] [place] [id number] 12 Dec, 2018 Anxiety F41.9 [facility] [address] [id number] [address] [place] [address] 17 Nov, 2018 Elevated platelet count R79. 89 [facility] [address] [id number] [address] [place] [address] 15 Nov, 2018 [facility] [address] [id number] [address] [place] [phone] Nov, Elevated platelet count R79. 89 [place] [address] [id number] [address] [place] [phone] Nov, Anxiety F41.9 [place] [address] [facility] [id number] [address] [place] [id number] 14 Nov, 2018 Bilateral low back pain, wit h sciatica presence unspecified M54.5 ; Cervicalgia M54.2 ; Degenerative disc disease, cervical M50.30 and Degenerative disc disease, thoracic M51.34 [place] [address] [id number] [address] [place] [address] Nov, Chronic pain syndrome G89.4 and Bilateral low back pain, with sciatica presence unspecified M54.5 [place] [address] [facility] [id number] [address] [place] [phone] Oct, Umbilical hernia without obs truction and without gangrene K42.9 [facility] [address] [id number] [address] [place] [phone] Oct, Chronic pain syndrome G89.4 [place] [address] [facility] [id number] [address] [place] [phone] Oct, Chronic pain syndrome G89.4 and Anxiety F41.9 [facility] [address] [id number] [address] [place] [phone] Oct, Elevated platelet count R79. 89 [facility] [address] [address] 10 Oct, 2018 CKD (chronic kidney disease) stage 3, GFR 30-59 ml/min N18.3 ; Other chest pain R07.89 ; Acute midline thoracic back pain M54.6 ; Essential hypertension I10 and History of osteoporosis Z87.[address] [address] Sep, Chronic pain syndrome G89.4 [place] [address] [address] Sep, [address] [address] Sep, Anxiety F41.9 and Chronic pa in syndrome G89.[address] [address] 18 Aug, 2018 Chronic pain syndrome G89.4 and Anxiety F41.[address] [address] Aug, [address] [address] 03 Aug, 2018 Cannabis abuse F12.10 and Co ntrolled substance agreement terminated Z91.[address] [address] 28 Jul, 2018 Chronic pain syndrome G89.4 ; Bilateral low back pain, with sciatica presence unspecified M54.5 ; Chronic prescription opiate use Z79.899 ; Essential hypertension I10 ; Hyperlipidemia, unspecified hyperlipidemia E78.5 ; CKD (chronic kidney disease) stage 3, GFR 30-59 ml/min N18.3 and Allergic rhinitis J30.[address] [address] 20 Jul, 2018 Chronic pain syndrome G89.4 and Anxiety F41.[address] [address] Jul, Screening for breast cancer Z12.31 and Major depressive disorder, recurrent episode, unspecified severity F33.9 [place] [address] [place] [id number] [place] [address] Jun, Chronic pain syndrome G89.4 and Anxiety F41.9 [place] [address] [place] [id number] [address] [place] [address] May, Chronic pain syndrome G89.4 and Anxiety F41.9 [place] [address] [place] [id number] [place] [address] Apr, Anxiety F41.9 [place] [address] [address] Apr, Chronic prescription opiate use Z79.899 ; Chronic pain syndrome G89.4 ; Essential hypertension I10 ; Allergic rhinitis J30.9 and CKD (chronic kidney disease) stage 3, GFR 30-59 ml/min N18.3 [place] [address] [address] Apr, [place] [address] [place] [id number] [place] [address] March, Anxiety F41.9 and Chronic pa in syndrome G89.4 [place] [address] [place] [id number] [place] [address] March, CKD (chronic kidney disease) stage 3, GFR 30-59 ml/min N18.3 ; B12 deficiency E53.8 and Hyperlipidemia, unspecified hyperlipidemia E78.5 [place] [address] [place] [id number] [address] [place] [address] March, Anxiety F41.9 and Chronic pa in syndrome G89.4 [place] [address] [place] [id number] [place] [address] Feb, Anxiety F41.9 and Chronic pa in syndrome G89.4 [place] [address] [place] [id number] [place] [address] Jan, B12 deficiency E53.8 [place] [address] [address] Jan, [place] [address] [address] Jan, Anxiety F41.9 ; Chronic pain syndrome G89.4 and Essential hypertension I10 [place] [address] [address] Jan, CKD (chronic kidney disease) stage 3, [...] Subacromial bursitis of right shoulder joint M75.51 [place] [address] [address] Dec, Essential hypertension I10 [place] [address] [address] 15 Dec, 2017 Chronic pain syndrome G89.4 [place] [address] [address] Dec, Chronic pain syndrome G89.4 [place] [address] [address] Nov, [place] [address] [address] Nov, Chronic pain syndrome G89.4 and Anxiety F41.9 [place] [address] [address] Oct, Chronic pain syndrome G89.4 ; Other constipation K59.09 and Chronic prescription opiate use Z79.899 [place] [address] [place] [address] [place] [address] 08 Oct, 2017 Chronic pain syndrome G89.4 and Anxiety F41.9 [place] [address] [place] [id number] [address] [place] [phone] Sep, Essential hypertension I10 [place] [address] [place] [id number] [address] [place] [address] 16 Sep, 2017 Chronic pain syndrome G89.4 and Anxiety F41.9 [place] [address] [place] [id number] [address] [place] [address] Aug, Chronic pain syndrome G89.4 and Anxiety F41.9 [place] [address] [place] [id number] [address] [place] [address] 28 Jul, 2017 Essential hypertension I10 [place] [address] [address] Jul, Chronic obstructive pulmonar y disease, unspecified COPD type J44.9 [place] [address] [place] [id number] [address] [place] [address] Jul, Chronic pain syndrome G89.4 and Anxiety F41.9 [place] [address] [place] [id number] [address] [place] [address] 13 Jul, 2017 Chronic pain syndrome G89.4 ; Essential hypertension I10 ; Fibromyalgia M79.7 ; CKD (chronic kidney disease) stage 3, GFR 30-59 ml/min N18.3 ; Subacromial bursitis, right M75.51 and Goals of care, co unseling/discussion Z71.89 [place] [address] [place] [id number] [address] [place] [address] Jun, Chronic pain syndrome G89.4 and Anxiety F41.9 [place] [address] [place] [id number] [address] [place] [address] May, Chronic pain syndrome G89.4 and Anxiety F41.9 [place] [address] [place] [id number] [address] [place] [address] Apr, Chronic pain syndrome G89.4 and Anxiety F41.9 [place] [address] [facility] [id number] [address] [place] [address] Apr, Drug induced constipation K5 9.03 ; Chronic pain syndrome G89.4 and CKD (chronic kidney disease) stage 3, GFR 30-59 ml/min N18.3 [place] [address] [facility] [id number] [address] [place] [address] Apr, Chronic pain syndrome G89.4 and Anxiety F41.9 [place] [address] [facility] [id number] [address] [place] [address] March, Chronic pain syndrome G89.4 and Anxiety F41.9 [place] [address] [facility] [id number] [address] [place] [address] March, Decreased GFR R94.4 [place] [address] [facility] [id number] [address] [place] [address] Feb, [place] [address] [facility] [id number] [address] [place] [address] Feb, Chronic pain syndrome G89.4 and Anxiety F41.9 [place] [address] [facility] [id number] [address] [place] [address] Jan, Decreased GFR R94.4 [place] [address] [facility] [id number] [address] [place] [address] Jan, Decreased GFR R94.4 [place] [address] [facility] [id number] [address] [place] [address] Jan, Allergic rhinitis J30.9 ; Es sential hypertension I10 ; Major depressive disorder, recurrent episode, unspecified severity F33.9 and Primary insomnia F51.01 [facility] [address] [facility] [id number] [address] [place] [address] 10 Jan, 2017 Acute right-sided thoracic b ack pain M54.6 ; Subacromial bursitis of right shoulder joint M75.51 ; Chronic pain syndrome G89.4 and Anxiety F41.9 [facility] [address] [place] [id number] [address] [place] [address] Jan, Decreased GFR R94.4 [facility] [address] [place] [id number] [address] [place] [address] Dec, Decreased GFR R94.4 [place] [address] [place] [id number] [place] [address] Dec, Decreased GFR R94.4 [place] [address] [facility] [id number] [address] [place] [address] Dec, Decreased GFR R94.4 [place] [address] [facility] [id number] [place] [address] Dec, Decreased GFR R94.4 [place] [address] [place] [id number] [place] [address] Dec, Anxiety F41.9 and Bilateral low back pain, with sciatica presence unspecified M54.5 [place] [address] [place] [id number] [address] [place] [address] Dec, Thrombocytosis D47.3 ; Hyper lipidemia, unspecified hyperlipidemia E78.5 ; Need for hepatitis C screening test Z11.59 and B12 deficiency E53.8 [place] [address] [address] Nov, Need for hepatitis C screeni ng test Z11.59 [place] [address] [place] [id number] [address] [place] [address] Nov, Anxiety F41.9 and Bilateral low back pain, with sciatica presence unspecified M54.5 [place] [address] [place] [id number] [place] [address] Oct, Bilateral low back pain, wit h sciatica presence unspecified M54.5 ; Chronic prescription opiate use Z79.899 ; Anxiety F41.9 ; Essential hypertension I10 ; Hyperlipidemia, unspecified hyperlipidemia E78.5 ; Health care maintenance Z00.00 and Thrombocytosis D47.3 [facility] [address] [facility] [id number] [address] [place] [address] Sep, [facility] [address] [facility] [id number] [address] [place] [address] Sep, [place] [id number] [place] [address] Aug, [facility] [address] [address] Jul, B12 deficiency E53.8 [place] [address] [address] Jul, [place] [address] [address] Jul, Essential hypertension I10 ; Chronic pain syndrome G89.4 ; Anxiety F41.9 ; Screening for breast cancer Z12.39 ; Atherosclerosis of [place] coronary artery of [place] heart without angina pectoris I25.10 ; Major depressive disorder, recurrent episode, unspecified severity F33.9 ; Primary insomnia F51.01 and Allergic rhinitis J30.9 [place] [address] [place] [id number] [address] [place] [address] Jun, [facility] [address] [place] [id number] [address] [place] [address] Jun, Leg wound, right, initial en counter S81.801A and Encounter for immunization Z23 [place] [address] [facility] [id number] [address] [place] [address] Jun, Open wound of right ear, uns pecified open wound type, initial encounter S01.301A [place] [address] [facility] [id number] [address] [place] [address] May, B12 deficiency E53.8 [place] [address] [place] [id number] [address] [place] [address] May, [place] [address] [place] [id number] [address] [place] [address] May, [facility] [address] [address] May, Chronic pain syndrome G89.4 ; Chronic prescription opiate use Z79.899 ; Allergic rhinitis J30.9 ; Essential hypertension I10 and Non-healing skin lesion L98.9 [facility] [address] [address] Apr, [facility] [address] [address] March, [facility] [address] [address] Feb, [place] [address] [address] Feb, [facility] [address] [address] Feb, Chronic pain syndrome G89.4 ; Anxiety F41.9 ; B12 deficiency E53.8 ; Allergic rhinitis J30.9 ; Fibromyalgia M79.7 ; Actinic keratosis L57.0 ; Skin rash R21 ; Open wound of right ear, unspecified open wound type, initial encounter S01.301A ; Subacromial bursitis, right M75.51 ; GERD (gastroesophageal reflux disease) K21.9 and Chronic obstructive pulmonary disease, unspecified COPD type J44.9 [facility] [address] [place] [id number] [address] [place] [address] Jan, [facility] [address] [address] Jan, Essential hypertension I10 [facility] [address] [address] Jan, [facility] [address] [address] Jan, [facility] [address] [place] [id number] [address] [place] [address] Jan, [facility] [address] [address] Dec, [facility] [address] [address] Dec, Essential hypertension I10 [facility] [address] [address] Dec, [facility] [address] [address] Dec, B12 deficiency E53.8 and Ess ential hypertension I10 [place] [address] [address] Dec, [facility] [address] [address] Nov, Right shoulder pain M25.511 [place] [address] [address] Nov, Right shoulder pain M25.511 [place] [address] [address] Nov, Essential hypertension I10 a nd B12 deficiency E53.8 [place] [address] [address] Nov, Major depressive disorder, r ecurrent episode, unspecified severity F33.9 ; Anxiety F41.9 ; Chronic pain syndrome G89.4 ; Essential hypertension I10 ; Hyperlipidemia, unspecified hyperlipidemia E78.5 ; Chronic prescription opiate use Z79.899 ; Allergic rhinitis J30.9 ; B12 deficiency E53.8 and Right shoulder pain M25.511 [facility] [address] [address] Oct, [place] [address] [address] Oct, [facility] [address] [facility] [id number] [address] [place] [address] Sep, [facility] [address] [facility] [id number] [address] [place] [address] Sep, [facility] [address] [facility] [id number] [address] [place] [address] Aug, [facility] [address] [facility] [id number] [address] [place] [address] Aug, [facility] [address] [facility] [id number] [address] [place] [address] Aug, [facility] [address] [facility] [id number] [address] [place] [address] Aug, Other constipation K59.09 ; Hyperlipidemia, unspecified hyperlipidemia E78.5 ; Essential hypertension I10 ; Primary insomnia F51.01 ; Anxiety F41.9 ; Chronic pain syndrome G89.4 ; Right shoulder pain M25.511 and Acute cystitis without hematuria N30.00 [facility] [address] [place] [id number] [address] [place] [address] Jul, [facility] [address] [facility] [id number] [address] [place] [address] Jul, [facility] [address] [place] [id number] [address] [place] [address] Jun, [facility] [address] [facility] [id number] [address] [place] [address] Jun, [facility] [address] [facility] [id number] [address] [place] [address] Jun, [facility] [address] [facility] [id number] [address] [place] [address] May, [facility] [address] [facility] [id number] [address] [place] [address] May, Other chronic pain 338.29 ; Hypertension 401.9 and Constipation due to opioid therapy 564.09 [facility] [address] [id number] [address] [place] [address] 17 May, 2015 [facility] [address] [id number] [address] [place] [address] 15 May, 2015 [facility] [address] [id number] [address] [place] [address] 17 Apr, 2015 [facility] [address] [id number] [address] [place] [address] 17 Apr, 2015 Unspecified essential hypert ension 401.9 [facility] [address] [id number] [address] [place] [address] 16 Apr, 2015 [facility] [address] [id number] [address] [place] [address] Apr, [facility] [address] [id number] [address] [place] [address] Apr, [facility] [address] [id number] [address] [place] [address] Apr, [facility] [address] [id number] [address] [place] [address] Apr, [facility] [address] [id number] [address] [place] [address] Apr, [facility] [address] [id number] [address] [place] [address] March, Unspecified essential hypert ension 401.9 [facility] [address] [id number] [address] [place] [address] March, [facility] [address] [id number] [address] [place] [address] March, [facility] [address] [id number] [address] [place] [id number] 14 Feb, 2015 [facility] [address] [id number] [address] [place] [address] 13 Feb, 2015 [facility] [address] [id number] [address] [place] [address], [place] [address] Jan, [facility] [address] [id number] [address] [place] [address], [place] [address] 23 Jan, 2015 [facility] [address] [id number] [address] [place] [address], [place] [address] 17 Jan, 2015 [facility] [address] [id number] [address] [place] [address], [place] [address] 17 Jan, 2015 [facility] [address] [id number] [address] [place] [address], [place] [address] Jan, [facility] [address] [id number] [address] [place] [address], [place] [address] Jan, [facility] [address] [id number] [address] [place] [address], [place] [address] Jan, [facility] [address] [id number] [address] [place] [address], [place] [address] 16 Dec, 2014 [facility] [address] [id number] [address] [place] [address], [place] [address] Dec, [facility] [address] [id number] [address] [place] [address], [place] [address] Dec, [facility] [address] [id number] [address] [place] [address], [place] [address] Nov, [facility] [address] [id number] [address] [place] [address], [place] [address] Nov, [facility] [address] [id number] [address] [place] [address], [place] [address] Oct, [facility] [address] [id number] [address] [place] [address], [place] [address] Oct, [facility] [address] [id number] [address] [place] [address], [place] [address] Oct, [facility] [address] [id number] [address] [place] [address] Oct, [facility] [address] [id number] [address] [place] [address], [place] [address] Oct, [facility] [address] [id number] [address] [place] [address], [place] [address] Oct, [facility] [address] [id number] [address] [place] [address], [place] [address] Oct, [facility] [address] [id number] [address] [place] [address], [place] [address] Oct, [facility] [address] [id number] [address] [place] [address], [place] [address] Sep, [facility] [address] [id number] [address] [place] [address], [place] [address] Sep, [facility] [address] [id number] [address] [place] [address], [place] [address] Sep, [facility] [address] [id number] [address] [place] [address], [place] [address] Sep, [facility] [address] [id number] [address] [place] [address], [place] [address] Sep, [facility] [address] [id number] [address] [place] [address], [place] [address] Sep, [facility] [address] [id number] [address] [place] [address], [place] [address] Aug, [facility] [address] [id number] [address] [place] [address] Aug, [facility] [address] [id number] [address] [place] [address], [place] [address] Aug, [facility] [address] [id number] [address] [place] [address], [place] [address] Aug, [facility] [address] [id number] [address] [place] [address], [place] [address] Aug, [facility] [address] [id number] [facility] [place] [address] Aug, [facility] [address] [id number] [address] [place] [address], [place] [address] Aug, [facility] [address] [id number] [address] [place] [address], [place] [address] Aug, [facility] [address] [id number] [address] [place] [address], [place] [address] Aug, [facility] [address] [id number] [address] [place] [address], [place] [address] Aug, [facility] [address] [id number] [address] [place] [address], [place] [address] Jul, [facility] [address] [id number] [address] [place] [address], [place] [address] Jul, [facility] [address] [id number] [address] [place] [address], [place] [address] Jul, [facility] [address] [id number] [address] [place] [address], [place] [address] Jul, [facility] [address] [id number] [address] [place] [address], [place] [address] Jul, [facility] [address] [id number] [address] [place] [address], [place] [address] Jul, [facility] [address] [id number] [address] [place] [address], [place] [address] Jun, [facility] [address] [id number] [address] [place] [address], [place] [address] Jun, [facility] [address] [id number] [address] [place] [address], [place] [address] Jun, [facility] [address] [id number] [address] [place] [address], [place] [address] Jun, [facility] [address] [id number] [address] [place] [address], [place] [address] Jun, [facility] [address] [id number] [facility] [address] Jun, [facility] [address] [id number] [address] [place] [address], [place] [address] May, [facility] [address] [id number] [address] [place] [address], [place] [address] May, [facility] [address] [id number] [address] [place] [address], [place] [address] May, [facility] [address] [id number] [address] [place] [address], [place] [address] May, [facility] [address] [id number] [address] [place] [address], [place] [address] May, [facility] [address] [id number] [address] [place] [address], [place] [address] Apr, [facility] [address] [id number] [address] [place] [address], [place] [address] Apr, [facility] [address] [id number] [address] [place] [address], [place] [address] Apr, [facility] [address] [id number] [address] [place] [address], [place] [address] Apr, [facility] [address] [id number] [address] [place] [address], [place] [address] March, [facility] [address] [id number] [address] [place] [address], [place] [address] March, [facility] [address] [id number] [address] [place] [address], [place] [address] March, [facility] [address] [id number] [address] [place] [address], [place] [address] March, [facility] [address] [id number] [address] [place] [address], [place] [address] March, [facility] [address] [id number] [address] [place] [address], [place] [address] March, [facility] [address] [id number] [facility] [address] Feb, [facility] [address] [id number] [address] [place] [address], [place] [address] Feb, [facility] [address] [id number] [address] [place] [address], [place] [address] Feb, [facility] [address] [id number] [address] [place] [address], [place] [address] Feb, [facility] [address] [id number] [address] [place] [address], [place] [address] Feb, [facility] [address] [id number] [address] [place] [address], [place] [address] Feb, [facility] [address] [id number] [address] [place] [address], [place] [address] Feb, [facility] [address] [id number] [address] [place] [address], [place] [address] Feb, [facility] [address] [id number] [address] [place] [address], [place] [address] Jan, [facility] [address] [id number] [address] [place] [address], [place] [address] Jan, [facility] [address] [id number] [address] [place] [address], [place] [address] Jan, [facility] [address] [id number] [address] [place] [address], [place] [address] Jan, [facility] [address] [id number] [address] [place] [address], [place] [address] Jan, [facility] [address] [id number] [address] [place] [address], [place] [address] Jan, [facility] [address] [id number] [address] [place] [address], [place] [address] Dec, [facility] [address] [id number] [address] [place] [address], [place] [address] Dec, [facility] [address] [id number] [address] [place] [address], [place] [address] Nov, [facility] [address] [id number] [address] [place] [address], [place] [address] Nov, [facility] [address] [id number] [address] [place] [address], [place] [address] Nov, [facility] [address] [id number] [address] [place] [address], [place] [address] Nov, [facility] [address] [id number] [address] [place] [address], [place] [address] Nov, [facility] [address] [id number] [address] [place] [address], [place] [address] Nov, [facility] [address] [id number] [address] [place] [address], [place] [address] Nov, [facility] [address] [id number] [address] [place] [address], [place] [address] Nov, [facility] [address] [id number] [address] [place] [address], [place] [address] Nov, [facility] [address] [id number] [address] [place] [address], [place] [address] Nov, [facility] [address] [id number] [address] [place] [address], [place] [address] Nov, [facility] [address] [id number] [address] [place] [address], [place] [address] Nov, [facility] [address] [id number] [address] [place] [address], [place] [address] Nov, [facility] [address] [id number] [address] [place] [address], [place] [address] Nov, [facility] [address] [id number] [address] [place] [id number] Nov, [facility] [address] [id number] [address] [place] [id number] Oct, [facility] [address] [id number] [address] [place] [address] Oct, [facility] [address] [id number] [address] [place] [address] Oct, [facility] [address] [id number] [address] [place] [address] Oct, [facility] [address] [id number] [address] [place] [id number] Oct, [facility] [address] [id number] [address] [place] [address] Oct, [facility] [address] [id number] [address] [place] [address] Oct, [facility] [address] [id number] [address] [place] [address] Oct, [facility] [address] [id number] [address] [place] [address] Oct, [facility] [address] [id number] [address] [place] [address] Aug, [facility] [address] [id number] [address] [place] [address] Aug, IMMUNIZATIONS No Known Immunizations SOCIAL HISTORY Never Assessed REASON FOR VISIT [facility] PLAN OF CARE VITAL SIGNS MEDICATIONS No Known Medications RESULTS No Results PROCEDURES No Known procedures INSTRUCTIONS MEDICATIONS ADMINISTERED No Known Medications MEDICAL (GENERAL) HISTORY Type Description Date Medical History hypertension Medical History asthma Medical History Arthritis Medical History Hypoglycemia Medical History Heart Cath 11/05/2013 Medical History herniated disc--Seen by Dr. Troy Michelle pain specialist in [place], [place] Medical History Chronic low back pain [...]
--- OUTSIDE RECORDS SUMMARY | 2020-06-19 02:14 | XMS REPORT ---
Author Author Mahsa Lewis Doctor Organization [facility] Address Unknown Phone Unavailable Care Team Providers Care Dethistler Operator Name Role Phone Migration, Doctor Unavailable Unavailable PROBLEMS Type Condition ICD9-CM Code [id number] Code Onset Dates Condition S tatus SNOMED Code Problem Other constipation K59.09 Active 1 48100418103060 Problem Primary insomnia F51.01 Active 193 680886 Problem Chronic pain syndrome G89.4 Active 283018179 Problem Essential hypertension I10 Active 04266894 Problem Anxiety F41.9 Active 58826468 Problem Major depressive disorder, recurrent episode, un specified severity F33.9 Active 04097530 Problem Atherosclerosis of pokagon co ronary artery of pokagon heart without angina pectoris I25.10 Active [id number] Problem Bilateral low back pain, with sciatica presence unspecifie d M54.5 Active 124288849 Problem Allergic rhinitis J30.9 Active 61 858886 Problem Fibromyalgia M79.7 Active 5850125 7 Problem Degenerative disc disease, thoracic M51.34 Active 05640130 Problem B12 deficiency E53.8 Active 10769 4004 Problem Degenerative disc disease, cervical M50.30 Active 11511885 Problem Hyperlipidemia, unspecified hyperlipidemia E78.5 Active 88713549 Problem GERD (gastroesophageal reflux disease) K21.9 Active 608469807 Problem Chronic obstructive pulmonary disease, unspecified COPD ty pe J44.9 Active 47667672 Problem CKD (chronic kidney disease) stage 3, GFR 30-59 ml/min N18.3 Active 950411436 Problem Cannabis abuse F12.10 Active 27334 009 ALLERGIES No Information ENCOUNTERS Encounter Location Date Diagnosis [facility] [address] [facility]NOTE 3] [id number] [address] [place] [address] Jan, Periumbilical hernia K42.9 ; CKD (chronic kidney disease) stage 3, GFR 30-59 ml/min N18.3 ; Essential hypertension I10 ; GERD (gastroesophageal reflux disease) K21.9 ; Hyperlipidemia, unspecified hyperlipidemia E78.5 and Major depressive disorder, recurrent episode, unspecified severity F33.9 [facility] [address] [id number] [address] [place] [address] 12 Dec, 2018 Anxiety F41.9 [facility] [address] [id number] [address] [place] [id number] 17 Nov, 2018 Elevated platelet count R79. 89 [facility] [address] [id number] [address] [place] [address] 15 Nov, 2018 [facility] [address] [id number] [address] [place] [address] Nov, Elevated platelet count R79. 89 [place] [address] [id number] [address] [place] [address] Nov, Anxiety F41.9 [place] [address] [facility]] [id number] [address] [place] [address] 14 Nov, 2018 Bilateral low back pain, wit h sciatica presence unspecified M54.5 ; Cervicalgia M54.2 ; Degenerative disc disease, cervical M50.30 and Degenerative disc disease, thoracic M51.34 [place] [address] [id number] [address] [place] [address] Nov, Chronic pain syndrome G89.4 and Bilateral low back pain, with sciatica presence unspecified M54.5 [place] [address] [facility]] [id number] [address] [place] [address] Oct, Umbilical hernia without obs truction and without gangrene K42.9 [facility] [address] [id number] [address] [place] [address] Oct, Chronic pain syndrome G89.4 [place] [address] [facility]] [id number] [address] [place] [address] Oct, Chronic pain syndrome G89.4 and Anxiety F41.9 [facility] [address] [id number] [address] [place] [address] Oct, Elevated platelet count R79. 89 [facility] [address] [address] 10 Oct, 2018 CKD (chronic kidney disease) stage 3, GFR 30-59 ml/min N18.3 ; Other chest pain R07.89 ; Acute midline thoracic back pain M54.6 ; Essential hypertension I10 and History of osteoporosis Z87.[address] [address] Sep, Chronic pain syndrome G89.4 [place] [address] [address] Sep, [address] [address] Sep, Anxiety F41.9 and Chronic pa in syndrome G89.[address] [address] 18 Aug, 2018 Chronic pain syndrome G89.4 and Anxiety F41.[address] [address] Aug, [address] [address] 03 Aug, 2018 Cannabis abuse F12.10 and Co ntrolled substance agreement terminated Z91.[address] [address] 28 Jul, 2018 Chronic pain syndrome G89.4 ; Bilateral low back pain, with sciatica presence unspecified M54.5 ; Chronic prescription opiate use Z79.899 ; Essential hypertension I10 ; Hyperlipidemia, unspecified hyperlipidemia E78.5 ; CKD (chronic kidney disease) stage 3, GFR 30-59 ml/min N18.3 and Allergic rhinitis J30.[address] [address] 20 Jul, 2018 Chronic pain syndrome G89.4 and Anxiety F41.[address] [address] Jul, Screening for breast cancer Z12.31 and Major depressive disorder, recurrent episode, unspecified severity F33.9 [place] [address] [place] [id number] [place] [address] Jun, Chronic pain syndrome G89.4 and Anxiety F41.9 [place] [address] [place] [id number] [address] [place] [address] May, Chronic pain syndrome G89.4 and Anxiety F41.9 [place] [address] [place] [id number] [place] [address] Apr, Anxiety F41.9 [place] [address] [address] Apr, Chronic prescription opiate use Z79.899 ; Chronic pain syndrome G89.4 ; Essential hypertension I10 ; Allergic rhinitis J30.9 and CKD (chronic kidney disease) stage 3, GFR 30-59 ml/min N18.3 [place] [address] [address] Apr, [place] [address] [place] [id number] [place] [address] March, Anxiety F41.9 and Chronic pa in syndrome G89.4 [place] [address] [place] [id number] [place] [address] March, CKD (chronic kidney disease) stage 3, GFR 30-59 ml/min N18.3 ; B12 deficiency E53.8 and Hyperlipidemia, unspecified hyperlipidemia E78.5 [place] [address] [place] [id number] [address] [place] [address] March, Anxiety F41.9 and Chronic pa in syndrome G89.4 [place] [address] [place] [id number] [place] [address] Feb, Anxiety F41.9 and Chronic pa in syndrome G89.4 [place] [address] [place] [id number] [place] [address] Jan, B12 deficiency E53.8 [place] [address] [address] Jan, [place] [address] [address] Jan, Anxiety F41.9 ; Chronic pain syndrome G89.4 and Essential hypertension I10 [place] [address] [address] Jan, CKD (chronic kidney disease) stage 3, [...] Subacromial bursitis of right shoulder joint M75.51 [place] [address] [address] Dec, Essential hypertension I10 [place] [address] [address] 15 Dec, 2017 Chronic pain syndrome G89.4 [place] [address] [address] Dec, Chronic pain syndrome G89.4 [place] [address] [address] Nov, [place] [address] [address] Nov, Chronic pain syndrome G89.4 and Anxiety F41.9 [place] [address] [address] Oct, Chronic pain syndrome G89.4 ; Other constipation K59.09 and Chronic prescription opiate use Z79.899 [place] [address] [place] [address] [place] [address] 08 Oct, 2017 Chronic pain syndrome G89.4 and Anxiety F41.9 [place] [address] [place] [id number] [address] [place] [address] Sep, Essential hypertension I10 [place] [address] [place] [id number] [address] [place] [address] 16 Sep, 2017 Chronic pain syndrome G89.4 and Anxiety F41.9 [place] [address] [place] [id number] [address] [place] [address] Aug, Chronic pain syndrome G89.4 and Anxiety F41.9 [place] [address] [place] [id number] [address] [place] [address] 28 Jul, 2017 Essential hypertension I10 [place] [address] [address] Jul, Chronic obstructive pulmonar y disease, unspecified COPD type J44.9 [place] [address] [place] [id number] [address] [place] [address] Jul, Chronic pain syndrome G89.4 and Anxiety F41.9 [place] [address] [place] [id number] [address] [place] [address] 13 Jul, 2017 Chronic pain syndrome G89.4 ; Essential hypertension I10 ; Fibromyalgia M79.7 ; CKD (chronic kidney disease) stage 3, GFR 30-59 ml/min N18.3 ; Subacromial bursitis, right M75.51 and Goals of care, co unseling/discussion Z71.89 [place] [address] [place] [id number] [address] [place] [address] Jun, Chronic pain syndrome G89.4 and Anxiety F41.9 [place] [address] [place] [id number] [address] [place] [address] May, Chronic pain syndrome G89.4 and Anxiety F41.9 [place] [address] [place] [id number] [address] [place] [address] Apr, Chronic pain syndrome G89.4 and Anxiety F41.9 [place] [address] [facility] 3] [id number] [address] [place] [address] Apr, Drug induced constipation K5 9.03 ; Chronic pain syndrome G89.4 and CKD (chronic kidney disease) stage 3, GFR 30-59 ml/min N18.3 [place] [address] [facility] 3] [id number] [address] [place] [address] Apr, Chronic pain syndrome G89.4 and Anxiety F41.9 [place] [address] [facility]NOTE 3] [id number] [address] [place] [address] March, Chronic pain syndrome G89.4 and Anxiety F41.9 [place] [address] [facility]NOTE 3] [id number] [address] [place] [address] March, Decreased GFR R94.4 [place] [address] [facility]NOTE 3] [id number] [address] [place] [address] Feb, [place] [address] [facility]NOTE 3] [id number] [address] [place] [address] Feb, Chronic pain syndrome G89.4 and Anxiety F41.9 [place] [address] [facility] 3] [id number] [address] [place] [address] Jan, Decreased GFR R94.4 [place] [address] [facility] 3] [id number] [address] [place] [address] Jan, Decreased GFR R94.4 [place] [address] [facility]NOTE 3] [id number] [address] [place] [address] Jan, Allergic rhinitis J30.9 ; Es sential hypertension I10 ; Major depressive disorder, recurrent episode, unspecified severity F33.9 and Primary insomnia F51.01 [facility] [address] [facility]NOTE 3] [id number] [address] [place] [address] 10 Jan, 2017 Acute right-sided thoracic b ack pain M54.6 ; Subacromial bursitis of right shoulder joint M75.51 ; Chronic pain syndrome G89.4 and Anxiety F41.9 [facility] [address] [place] [id number] [address] [place] [address] Jan, Decreased GFR R94.4 [facility] [address] [place] [id number] [address] [place] [address] Dec, Decreased GFR R94.4 [place] [address] [place] [id number] [place] [address] Dec, Decreased GFR R94.4 [place] [address] [facility] 3] [id number] [address] [place] [address] Dec, Decreased GFR R94.4 [place] [address] [facility]NOTE 3] [id number] [place] [address] Dec, Decreased GFR R94.4 [place] [address] [place] [id number] [place] [address] Dec, Anxiety F41.9 and Bilateral low back pain, with sciatica presence unspecified M54.5 [place] [address] [place] [id number] [address] [place] [address] Dec, Thrombocytosis D47.3 ; Hyper lipidemia, unspecified hyperlipidemia E78.5 ; Need for hepatitis C screening test Z11.59 and B12 deficiency E53.8 [place] [address] [address] Nov, Need for hepatitis C screeni ng test Z11.59 [place] [address] [place] [id number] [address] [place] [address] Nov, Anxiety F41.9 and Bilateral low back pain, with sciatica presence unspecified M54.5 [place] [address] [place] [id number] [place] [address] Oct, Bilateral low back pain, wit h sciatica presence unspecified M54.5 ; Chronic prescription opiate use Z79.899 ; Anxiety F41.9 ; Essential hypertension I10 ; Hyperlipidemia, unspecified hyperlipidemia E78.5 ; Health care maintenance Z00.00 and Thrombocytosis D47.3 [facility] [address] [facility] 3] [id number] [address] [place] [address] Sep, [facility] [address] [facility]NOTE 3] [id number] [address] [place] [address] Sep, [place] [id number] [place] [address] Aug, [facility] [address] [address] Jul, B12 deficiency E53.8 [place] [address] [address] Jul, [place] [address] [address] Jul, Essential hypertension I10 ; Chronic pain syndrome G89.4 ; Anxiety F41.9 ; Screening for breast cancer Z12.39 ; Atherosclerosis of pokagon coronary artery of pokagon heart without angina pectoris I25.10 ; Major depressive disorder, recurrent episode, unspecified severity F33.9 ; Primary insomnia F51.01 and Allergic rhinitis J30.9 [place] [address] [place] [id number] [address] [place] [address] Jun, [facility] [address] [place] [id number] [address] [place] [address] Jun, Leg wound, right, initial en counter S81.801A and Encounter for immunization Z23 [place] [address] [facility] 3] [id number] [address] [place] [address] Jun, Open wound of right ear, uns pecified open wound type, initial encounter S01.301A [place] [address] [facility]NOTE 3] [id number] [address] [place] [address] May, B12 deficiency E53.8 [place] [address] [place] [id number] [address] [place] [address] May, [place] [address] [place] [id number] [address] [place] [address] May, [facility] [address] [address] May, Chronic pain syndrome G89.4 ; Chronic prescription opiate use Z79.899 ; Allergic rhinitis J30.9 ; Essential hypertension I10 and Non-healing skin lesion L98.9 [facility] [address] [address] Apr, [facility] [address] [address] March, [facility] [address] [address] Feb, [place] [address] [address] Feb, [facility] [address] [address] Feb, Chronic pain syndrome G89.4 ; Anxiety F41.9 ; B12 deficiency E53.8 ; Allergic rhinitis J30.9 ; Fibromyalgia M79.7 ; Actinic keratosis L57.0 ; Skin rash R21 ; Open wound of right ear, unspecified open wound type, initial encounter S01.301A ; Subacromial bursitis, right M75.51 ; GERD (gastroesophageal reflux disease) K21.9 and Chronic obstructive pulmonary disease, unspecified COPD type J44.9 [facility] [address] [place] [id number] [address] [place] [address] Jan, [facility] [address] [address] Jan, Essential hypertension I10 [facility] [address] [address] Jan, [facility] [address] [address] Jan, [facility] [address] [place] [id number] [address] [place] [address] Jan, [facility] [address] [address] Dec, [facility] [address] [address] Dec, Essential hypertension I10 [facility] [address] [address] Dec, [facility] [address] [address] Dec, B12 deficiency E53.8 and Ess ential hypertension I10 [place] [address] [address] Dec, [facility] [address] [address] Nov, Right shoulder pain M25.511 [place] [address] [address] Nov, Right shoulder pain M25.511 [place] [address] [address] Nov, Essential hypertension I10 a nd B12 deficiency E53.8 [place] [address] [address] Nov, Major depressive disorder, r ecurrent episode, unspecified severity F33.9 ; Anxiety F41.9 ; Chronic pain syndrome G89.4 ; Essential hypertension I10 ; Hyperlipidemia, unspecified hyperlipidemia E78.5 ; Chronic prescription opiate use Z79.899 ; Allergic rhinitis J30.9 ; B12 deficiency E53.8 and Right shoulder pain M25.511 [facility] [address] [address] Oct, [place] [address] [address] Oct, [facility] [address] [facility]] [id number] [address] [place] [address] Sep, [facility] [address] [facility]] [id number] [address] [place] [address] Sep, [facility] [address] [facility]] [id number] [address] [place] [address] Aug, [facility] [address] [facility]] [id number] [address] [place] [address] Aug, [facility] [address] [facility]] [id number] [address] [place] [address] Aug, [facility] [address] [facility]] [id number] [address] [place] [address] Aug, Other constipation K59.09 ; Hyperlipidemia, unspecified hyperlipidemia E78.5 ; Essential hypertension I10 ; Primary insomnia F51.01 ; Anxiety F41.9 ; Chronic pain syndrome G89.4 ; Right shoulder pain M25.511 and Acute cystitis without hematuria N30.00 [facility] [address] [place] [id number] [address] [place] [address] Jul, [facility] [address] [facility]] [id number] [address] [place] [address] Jul, [facility] [address] [place] [id number] [address] [place] [address] Jun, [facility] [address] [facility]] [id number] [address] [place] [address] Jun, [facility] [address] [facility]] [id number] [address] [place] [address] Jun, [facility] [address] [facility]] [id number] [address] [place] [address] May, [facility] [address] [facility]] [id number] [address] [place] [address] May, Other chronic pain 338.29 ; Hypertension 401.9 and Constipation due to opioid therapy 564.09 [facility] [place] [address] [id number] [address] [place] [address] 17 May, 2015 [facility] [place] [address] [id number] [address] [place] [address] 15 May, 2015 [facility] [place] [address] [id number] [address] [place] [address] 17 Apr, 2015 [facility] [place] [address] [id number] [address] [place] [address] 17 Apr, 2015 Unspecified essential hypert ension 401.9 [facility] [place] [address] [id number] [address] [place] [address] 16 Apr, 2015 [facility] [place] [address] [id number] [address] [place] [address] Apr, [facility] [place] [address] [id number] [address] [place] [address] Apr, [facility] [place] [address] [id number] [address] [place] [address] Apr, [facility] [place] [address] [id number] [address] [place] [address] Apr, [facility] [place] [address] [id number] [address] [place] [address] Apr, [facility] [place] [address] [id number] [address] [place] [address] March, Unspecified essential hypert ension 401.9 [facility] [place] [address] [id number] [address] [place] [address] March, [facility] [place] [address] [id number] [address] [place] [address] March, [facility] [place] [address] [id number] [address] [place] [address] 14 Feb, 2015 [facility] [place] [address] [id number] [address] [place] [address] 13 Feb, 2015 [facility] [address] [id number] [address] [place] [address], [place] [address] Jan, [facility] [address] [id number] [address] [place] [address], [place] [address] 23 Jan, 2015 [facility] [address] [id number] [address] [place] [address], [place] [address] 17 Jan, 2015 [facility] [address] [id number] [address] [place] [address], [place] [address] 17 Jan, 2015 [facility] [address] [id number] [address] [place] [address], [place] [address] Jan, [facility] [address] [id number] [address] [place] [address], [place] [address] Jan, [facility] [address] [id number] [address] [place] [address], [place] [address] Jan, [facility] [address] [id number] [address] [place] [address], [place] [address] 16 Dec, 2014 [facility] [address] [id number] [address] [place] [address], [place] [address] Dec, [facility] [address] [id number] [address] [place] [address], [place] [address] Dec, [facility] [address] [id number] [address] [place] [address], [place] [address] Nov, [facility] [address] [id number] [address] [place] [address], [place] [address] Nov, [facility] [address] [id number] [address] [place] [address], [place] [address] Oct, [facility] [place] [facility] [address] [id number] [address] [place] [address], [place] [address] Oct, [facility] [place] [facility] [address] [id number] [address] [place] [address], [place] [address] Oct, [facility] [address] [id number] [address] [place] [address] Oct, [facility] [address] [id number] [address] [place] [address], [place] [address] Oct, [facility] [place] [facility] [address] [id number] [address] [place] [address], [place] [address] Oct, [facility] [place] [facility] [address] [id number] [address] [place] [address], [place] [address] Oct, [facility] [place] [facility] [address] [id number] [address] [place] [address], [place] [address] Oct, [facility] [place] [address] [id number] [address] [place] [address], [place] [address] Sep, [facility] [address] [id number] [address] [place] [address], [place] [address] Sep, [facility] [address] [id number] [address] [place] [address], [place] [address] Sep, [facility] [address] [id number] [address] [place] [address], [place] [address] Sep, [facility] [address] [id number] [address] [place] [address], [place] [address] Sep, [facility] [address] [id number] [address] [place] [address], [place] [address] Sep, [facility] [address] [id number] [address] [place] [address], [place] [address] Aug, [facility] [address] [id number] [address] [place] [address] Aug, [facility] [address] [id number] [address] [place] [address], [place] [address] Aug, [facility] [address] [id number] [address] [place] [address], [place] [address] Aug, [facility] [address] [id number] [address] [place] [address], [place] [address] Aug, [facility] [address] [id number] [facility] [place] [address] Aug, [facility] [address] [id number] [address] [place] [address], [place] [address] Aug, [facility] [address] [id number] [address] [place] [address], [place] [address] Aug, [facility] [address] [id number] [address] [place] [address], [place] [address] Aug, [facility] [address] [id number] [address] [place] [address], [place] [address] Aug, [facility] [address] [id number] [address] [place] [address], [place] [address] Jul, [facility] [address] [id number] [address] [place] [address], [place] [address] Jul, [facility] [address] [id number] [address] [place] [address], [place] [address] Jul, [facility] [address] [id number] [address] [place] [address], [place] [address] Jul, [facility] [address] [id number] [address] [place] [address], [place] [address] Jul, [facility] [place] [address] [id number] [address] [place] [address], [place] [address] Jul, [facility] [address] [id number] [address] [place] [address], [place] [address] Jun, [facility] [address] [id number] [address] [place] [address], [place] [address] Jun, [facility] [address] [id number] [address] [place] [address], [place] [address] Jun, [facility] [address] [id number] [address] [place] [address], [place] [address] Jun, [facility] [address] [id number] [address] [place] [address], [place] [address] Jun, [facility] [address] [id number] [facility] [place] [address] Jun, [facility] [address] [id number] [address] [place] [address], [place] [address] May, [facility] [address] [id number] [address] [place] [address], [place] [address] May, [facility] [address] [id number] [address] [place] [address], [place] [address] May, [facility] [address] [id number] [address] [place] [address], [place] [address] May, [facility] [address] [id number] [address] [place] [address], [place] [address] May, [facility] [address] [id number] [address] [place] [address], [place] [address] Apr, [facility] [address] [id number] [address] [place] [address], [place] [address] Apr, [facility] [address] [id number] [address] [place] [address], [place] [address] Apr, [facility] [address] [id number] [address] [place] [address], [place] [address] Apr, [facility] [address] [id number] [address] [place] [address], [place] [address] March, [facility] [address] [id number] [address] [place] [address], [place] [address] March, [facility] [address] [id number] [address] [place] [address], [place] [address] March, [facility] [address] [id number] [address] [place] [address], [place] [address] March, [facility] [address] [id number] [address] [place] [address], [place] [address] March, [facility] [address] [id number] [address] [place] [address], [place] [address] March, [facility] [address] [id number] [facility] [place] [address] Feb, [facility] [address] [id number] [address] [place] [address], [place] [address] Feb, [facility] [address] [id number] [address] [place] [address], [place] [address] Feb, [facility] [address] [id number] [address] [place] [address], [place] [address] Feb, [facility] [address] [id number] [address] [place] [address], [place] [address] Feb, [facility] [address] [id number] [address] [place] [address], [place] [address] Feb, [facility] [address] [id number] [address] [place] [address], [place] [address] Feb, [facility] [address] [id number] [address] [place] [address], [place] [address] Feb, [facility] [address] [id number] [address] [place] [address], [place] [address] Jan, [facility] [address] [id number] [address] [place] [address], [place] [address] Jan, [facility] [address] [id number] [address] [place] [address], [place] [address] Jan, [facility] [address] [id number] [address] [place] [address], [place] [address] Jan, [facility] [address] [id number] [address] [place] [address], [place] [address] Jan, [facility] [address] [id number] [address] [place] [address], [place] [address] Jan, [facility] [address] [id number] [address] [place] [address], [place] [address] Dec, [facility] [address] [id number] [address] [place] [address], [place] [address] Dec, [facility] [address] [id number] [address] [place] [address], [place] [address] Nov, [facility] [address] [id number] [address] [place] [address], [place] [address] Nov, [facility] [address] [id number] [address] [place] [address], [place] [address] Nov, [facility] [address] [id number] [address] [place] [address], [place] [address] Nov, [facility] [address] [id number] [address] [place] [address], [place] [address] Nov, [facility] [address] [id number] [address] [place] [address], [place] [address] Nov, [facility] [address] [id number] [address] [place] [address], [place] [address] Nov, [facility] [address] [id number] [address] [place] [address], [place] [address] Nov, [facility] [address] [id number] [address] [place] [address], [place] [address] Nov, [facility] [address] [id number] [address] [place] [address], [place] [address] Nov, [facility] [address] [id number] [address] [place] [address], [place] [address] Nov, [facility] [address] [id number] [address] [place] [address], [place] [address] Nov, [facility] [address] [id number] [address] [place] [address], [place] [address] Nov, [facility] [address] [id number] [address] [place] [address], [place] [address] Nov, [facility] [address] [id number] [address] [place] [address] Nov, [facility] [address] [id number] [address] [place] [address] Oct, [facility] [address] [id number] [address] [place] [address] Oct, [facility] [address] [id number] [address] [place] [address] Oct, [facility] [address] [id number] [address] [place] [address] Oct, [facility] [address] [id number] [address] [place] [address] Oct, [facility] [address] [id number] [address] [place] [address] Oct, [facility] [address] [id number] [address] [place] [address] Oct, [facility] [address] [id number] [address] [place] [address] Oct, [facility] [address] [id number] [address] [place] [address] Oct, [facility] [address] [id number] [address] [place] [address] Aug, [facility] [address] [id number] [address] [place] [address] Aug, IMMUNIZATIONS No Known Immunizations SOCIAL HISTORY Never Assessed REASON FOR VISIT [facility] PLAN OF CARE VITAL SIGNS MEDICATIONS No Known Medications RESULTS No Results PROCEDURES No Known procedures INSTRUCTIONS MEDICATIONS ADMINISTERED No Known Medications MEDICAL (GENERAL) HISTORY Type Description Date Medical History hypertension Medical History asthma Medical History Arthritis Medical History Hypoglycemia Medical History Heart Cath 11/05/2013 Medical History herniated disc--Seen by Dr. Troy Michelle pain specialist in [place], [place] Medical History Chronic low back pain [...]
[2020-06-19] MEDS ORDERED: lisINopril 20 MG (PRINIVIL) TABLET PO ONE (02:15)
[2020-06-19] MEDS ORDERED: ATENOLOL 25 MG (TENORMIN) TAB PO ONE (02:15)
--- OUTSIDE RECORDS SUMMARY | 2020-06-19 02:15 | XMS REPORT ---
Author Author Mahsa Lewis Doctor Organization [facility] Address Unknown Phone Unavailable Care Team Providers Care Bottom Turning Lathe Turner Name Role Phone Migration, Doctor Unavailable Unavailable PROBLEMS Type Condition ICD9-CM Code ONR85-EW Code Onset Dates Condition S tatus SNOMED Code Problem Other constipation K59.09 Active 1 24076422473589 Problem Primary insomnia F51.01 Active 193 518558 Problem Chronic pain syndrome G89.4 Active 573156800 Problem Essential hypertension I10 Active 19599094 Problem Anxiety F41.9 Active 26539922 Problem Major depressive disorder, recurrent episode, un specified severity F33.9 Active 37758860 Problem Atherosclerosis of nome co ronary artery of nome heart without angina pectoris I25.10 Active 3675199144105 Problem Bilateral low back pain, with sciatica presence unspecifie d M54.5 Active 672925221 Problem Allergic rhinitis J30.9 Active 61 726238 Problem Fibromyalgia M79.7 Active 4833878 7 Problem Degenerative disc disease, thoracic M51.34 Active 23456725 Problem B12 deficiency E53.8 Active 88819 4004 Problem Degenerative disc disease, cervical M50.30 Active 11395055 Problem Hyperlipidemia, unspecified hyperlipidemia E78.5 Active 61998208 Problem GERD (gastroesophageal reflux disease) K21.9 Active 945707384 Problem Chronic obstructive pulmonary disease, unspecified COPD ty pe J44.9 Active 52041308 Problem CKD (chronic kidney disease) stage 3, GFR 30-59 ml/min N18.3 Active 193007554 Problem Cannabis abuse F12.10 Active 68282 009 ALLERGIES No Information ENCOUNTERS Encounter Location Date Diagnosis [facility] [address] [facility] [id number] [address] [place] [address] Jan, Periumbilical hernia K42.9 ; CKD (chronic kidney disease) stage 3, GFR 30-59 ml/min N18.3 ; Essential hypertension I10 ; GERD (gastroesophageal reflux disease) K21.9 ; Hyperlipidemia, unspecified hyperlipidemia E78.5 and Major depressive disorder, recurrent episode, unspecified severity F33.9 [facility] [address] [id number] [address] [place] [id number] 12 Dec, 2018 Anxiety F41.9 [facility] [address] [id number] [address] [place] [address] 17 Nov, 2018 Elevated platelet count R79. 89 [facility] [address] [id number] [address] [place] [id number] 15 Nov, 2018 [facility] [address] [id number] [address] [place] [address] Nov, Elevated platelet count R79. 89 [place] [address] [id number] [address] [place] [phone] Nov, Anxiety F41.9 [place] [address] [facility] [id number] [address] [place] [id number] 14 Nov, 2018 Bilateral low back pain, wit h sciatica presence unspecified M54.5 ; Cervicalgia M54.2 ; Degenerative disc disease, cervical M50.30 and Degenerative disc disease, thoracic M51.34 [place] [address] [id number] [address] [place] [address] Nov, Chronic pain syndrome G89.4 and Bilateral low back pain, with sciatica presence unspecified M54.5 [place] [address] [facility] [id number] [address] [place] [address] Oct, Umbilical hernia without obs truction and without gangrene K42.9 [facility] [address] [id number] [address] [place] [address] Oct, Chronic pain syndrome G89.4 [place] [address] [facility] [id number] [address] [place] [address] Oct, Chronic pain syndrome G89.4 and Anxiety F41.9 [facility] [address] [id number] [address] [place] [address] Oct, Elevated platelet count R79. 89 [facility] [address] [address] 10 Oct, 2018 CKD (chronic kidney disease) stage 3, GFR 30-59 ml/min N18.3 ; Other chest pain R07.89 ; Acute midline thoracic back pain M54.6 ; Essential hypertension I10 and History of osteoporosis Z87.[address] [address] Sep, Chronic pain syndrome G89.4 [place] [address] [address] Sep, [address] [address] Sep, Anxiety F41.9 and Chronic pa in syndrome G89.[address] [address] 18 Aug, 2018 Chronic pain syndrome G89.4 and Anxiety F41.[address] [address] Aug, [address] [address] 03 Aug, 2018 Cannabis abuse F12.10 and Co ntrolled substance agreement terminated Z91.[address] [address] 28 Jul, 2018 Chronic pain syndrome G89.4 ; Bilateral low back pain, with sciatica presence unspecified M54.5 ; Chronic prescription opiate use Z79.899 ; Essential hypertension I10 ; Hyperlipidemia, unspecified hyperlipidemia E78.5 ; CKD (chronic kidney disease) stage 3, GFR 30-59 ml/min N18.3 and Allergic rhinitis J30.[address] [address] 20 Jul, 2018 Chronic pain syndrome G89.4 and Anxiety F41.[address] [address] Jul, Screening for breast cancer Z12.31 and Major depressive disorder, recurrent episode, unspecified severity F33.9 [place] [address] [place] [id number] [place] [address] Jun, Chronic pain syndrome G89.4 and Anxiety F41.9 [place] [address] [place] [id number] [address] [place] [address] May, Chronic pain syndrome G89.4 and Anxiety F41.9 [place] [address] [place] [id number] [place] [address] Apr, Anxiety F41.9 [place] [address] [address] Apr, Chronic prescription opiate use Z79.899 ; Chronic pain syndrome G89.4 ; Essential hypertension I10 ; Allergic rhinitis J30.9 and CKD (chronic kidney disease) stage 3, GFR 30-59 ml/min N18.3 [place] [address] [address] Apr, [place] [address] [place] [id number] [place] [address] March, Anxiety F41.9 and Chronic pa in syndrome G89.4 [place] [address] [place] [id number] [place] [address] March, CKD (chronic kidney disease) stage 3, GFR 30-59 ml/min N18.3 ; B12 deficiency E53.8 and Hyperlipidemia, unspecified hyperlipidemia E78.5 [place] [address] [place] [id number] [address] [place] [address] March, Anxiety F41.9 and Chronic pa in syndrome G89.4 [place] [address] [place] [id number] [place] [address] Feb, Anxiety F41.9 and Chronic pa in syndrome G89.4 [place] [address] [place] [id number] [place] [address] Jan, B12 deficiency E53.8 [place] [address] [address] Jan, [place] [address] [address] Jan, Anxiety F41.9 ; Chronic pain syndrome G89.4 and Essential hypertension I10 [place] [address] [address] Jan, CKD (chronic kidney disease) stage 3, [...] Subacromial bursitis of right shoulder joint M75.51 [place] [address] [address] Dec, Essential hypertension I10 [place] [address] [address] 15 Dec, 2017 Chronic pain syndrome G89.4 [place] [address] [address] Dec, Chronic pain syndrome G89.4 [place] [address] [address] Nov, [place] [address] [address] Nov, Chronic pain syndrome G89.4 and Anxiety F41.9 [place] [address] [address] Oct, Chronic pain syndrome G89.4 ; Other constipation K59.09 and Chronic prescription opiate use Z79.899 [place] [address] [place] [id number] [place] [id number] 08 Oct, 2017 Chronic pain syndrome G89.4 and Anxiety F41.9 [place] [address] [place] [id number] [address] [place] [address] Sep, Essential hypertension I10 [place] [address] [place] [id number] [address] [place] [address] 16 Sep, 2017 Chronic pain syndrome G89.4 and Anxiety F41.9 [place] [address] [place] [id number] [address] [place] [address] Aug, Chronic pain syndrome G89.4 and Anxiety F41.9 [place] [address] [place] [id number] [address] [place] [address] 28 Jul, 2017 Essential hypertension I10 [place] [address] [address] Jul, Chronic obstructive pulmonar y disease, unspecified COPD type J44.9 [place] [address] [place] [id number] [address] [place] [address] Jul, Chronic pain syndrome G89.4 and Anxiety F41.9 [place] [address] [place] [id number] [address] [place] [address] 13 Jul, 2017 Chronic pain syndrome G89.4 ; Essential hypertension I10 ; Fibromyalgia M79.7 ; CKD (chronic kidney disease) stage 3, GFR 30-59 ml/min N18.3 ; Subacromial bursitis, right M75.51 and Goals of care, co unseling/discussion Z71.89 [place] [address] [place] [id number] [address] [place] [address] Jun, Chronic pain syndrome G89.4 and Anxiety F41.9 [place] [address] [place] [id number] [address] [place] [address] May, Chronic pain syndrome G89.4 and Anxiety F41.9 [place] [address] [place] [id number] [address] [place] [address] Apr, Chronic pain syndrome G89.4 and Anxiety F41.9 [place] [address] [facility] [id number] [address] [place] [address] Apr, Drug induced constipation K5 9.03 ; Chronic pain syndrome G89.4 and CKD (chronic kidney disease) stage 3, GFR 30-59 ml/min N18.3 [place] [address] [facility] [id number] [address] [place] [address] Apr, Chronic pain syndrome G89.4 and Anxiety F41.9 [place] [address] [facility] [id number] [address] [place] [address] March, Chronic pain syndrome G89.4 and Anxiety F41.9 [place] [address] [facility] [id number] [address] [place] [address] March, Decreased GFR R94.4 [place] [address] [facility] [id number] [address] [place] [address] Feb, [place] [address] [facility] [id number] [address] [place] [address] Feb, Chronic pain syndrome G89.4 and Anxiety F41.9 [place] [address] [facility] [id number] [address] [place] [address] Jan, Decreased GFR R94.4 [place] [address] [facility] [id number] [address] [place] [address] Jan, Decreased GFR R94.4 [place] [address] [facility] [id number] [address] [place] [address] Jan, Allergic rhinitis J30.9 ; Es sential hypertension I10 ; Major depressive disorder, recurrent episode, unspecified severity F33.9 and Primary insomnia F51.01 [facility] [address] [facility] [id number] [address] [place] [address] 10 Jan, 2017 Acute right-sided thoracic b ack pain M54.6 ; Subacromial bursitis of right shoulder joint M75.51 ; Chronic pain syndrome G89.4 and Anxiety F41.9 [facility] [address] [place] [id number] [address] [place] [address] Jan, Decreased GFR R94.4 [facility] [address] [place] [id number] [address] [place] [address] Dec, Decreased GFR R94.4 [place] [address] [place] [id number] [place] [address] Dec, Decreased GFR R94.4 [place] [address] [facility] [id number] [address] [place] [address] Dec, Decreased GFR R94.4 [place] [address] [facility] [id number] [place] [address] Dec, Decreased GFR R94.4 [place] [address] [place] [id number] [place] [address] Dec, Anxiety F41.9 and Bilateral low back pain, with sciatica presence unspecified M54.5 [place] [address] [place] [id number] [address] [place] [address] Dec, Thrombocytosis D47.3 ; Hyper lipidemia, unspecified hyperlipidemia E78.5 ; Need for hepatitis C screening test Z11.59 and B12 deficiency E53.8 [place] [address] [address] Nov, Need for hepatitis C screeni ng test Z11.59 [place] [address] [place] [id number] [address] [place] [address] Nov, Anxiety F41.9 and Bilateral low back pain, with sciatica presence unspecified M54.5 [place] [address] [place] [id number] [place] [address] Oct, Bilateral low back pain, wit h sciatica presence unspecified M54.5 ; Chronic prescription opiate use Z79.899 ; Anxiety F41.9 ; Essential hypertension I10 ; Hyperlipidemia, unspecified hyperlipidemia E78.5 ; Health care maintenance Z00.00 and Thrombocytosis D47.3 [facility] [address] [facility] [id number] [address] [place] [address] Sep, [facility] [address] [facility] [id number] [address] [place] [address] Sep, [place] [address] [place] [address] Aug, [facility] [address] [address] Jul, B12 deficiency E53.8 [place] [address] [address] Jul, [place] [address] [address] Jul, Essential hypertension I10 ; Chronic pain syndrome G89.4 ; Anxiety F41.9 ; Screening for breast cancer Z12.39 ; Atherosclerosis of nome coronary artery of nome heart without angina pectoris I25.10 ; Major depressive disorder, recurrent episode, unspecified severity F33.9 ; Primary insomnia F51.01 and Allergic rhinitis J30.9 [place] [address] [place] [id number] [address] [place] [address] Jun, [facility] [address] [place] [id number] [address] [place] [address] Jun, Leg wound, right, initial en counter S81.801A and Encounter for immunization Z23 [place] [address] [facility] [id number] [address] [place] [address] Jun, Open wound of right ear, uns pecified open wound type, initial encounter S01.301A [place] [address] [facility] [id number] [address] [place] [address] May, B12 deficiency E53.8 [place] [address] [place] [id number] [address] [place] [address] May, [place] [address] [place] [id number] [address] [place] [address] May, [facility] [address] [address] May, Chronic pain syndrome G89.4 ; Chronic prescription opiate use Z79.899 ; Allergic rhinitis J30.9 ; Essential hypertension I10 and Non-healing skin lesion L98.9 [facility] [address] [address] Apr, [facility] [address] [address] March, [facility] [address] [address] Feb, [place] [address] [address] Feb, [facility] [address] [address] Feb, Chronic pain syndrome G89.4 ; Anxiety F41.9 ; B12 deficiency E53.8 ; Allergic rhinitis J30.9 ; Fibromyalgia M79.7 ; Actinic keratosis L57.0 ; Skin rash R21 ; Open wound of right ear, unspecified open wound type, initial encounter S01.301A ; Subacromial bursitis, right M75.51 ; GERD (gastroesophageal reflux disease) K21.9 and Chronic obstructive pulmonary disease, unspecified COPD type J44.9 [facility] [address] [place] [id number] [address] [place] [address] Jan, [facility] [address] [address] Jan, Essential hypertension I10 [facility] [address] [address] Jan, [facility] [address] [address] Jan, [facility] [address] [place] [id number] [address] [place] [address] Jan, [facility] [address] [address] Dec, [facility] [address] [address] Dec, Essential hypertension I10 [facility] [address] [address] Dec, [facility] [address] [address] Dec, B12 deficiency E53.8 and Ess ential hypertension I10 [place] [address] [address] Dec, [facility] [address] [address] Nov, Right shoulder pain M25.511 [place] [address] [address] Nov, Right shoulder pain M25.511 [place] [address] [address] Nov, Essential hypertension I10 a nd B12 deficiency E53.8 [place] [address] [address] Nov, Major depressive disorder, r ecurrent episode, unspecified severity F33.9 ; Anxiety F41.9 ; Chronic pain syndrome G89.4 ; Essential hypertension I10 ; Hyperlipidemia, unspecified hyperlipidemia E78.5 ; Chronic prescription opiate use Z79.899 ; Allergic rhinitis J30.9 ; B12 deficiency E53.8 and Right shoulder pain M25.511 [facility] [address] [address] Oct, [place] [address] [address] Oct, [facility] [address] [facility] [id number] [address] [place] [address] Sep, [facility] [address] [facility] [id number] [address] [place] [address] Sep, [facility] [address] [facility] [id number] [address] [place] [address] Aug, [facility] [address] [facility] [id number] [address] [place] [address] Aug, [facility] [address] [facility] [id number] [address] [place] [address] Aug, [facility] [address] [facility] [id number] [address] [place] [address] Aug, Other constipation K59.09 ; Hyperlipidemia, unspecified hyperlipidemia E78.5 ; Essential hypertension I10 ; Primary insomnia F51.01 ; Anxiety F41.9 ; Chronic pain syndrome G89.4 ; Right shoulder pain M25.511 and Acute cystitis without hematuria N30.00 [facility] [address] [place] [id number] [address] [place] [address] Jul, [facility] [address] [facility] [id number] [address] [place] [address] Jul, [facility] [address] [place] [id number] [address] [place] [address] Jun, [facility] [address] [facility] [id number] [address] [place] [address] Jun, [facility] [address] [facility] [id number] [address] [place] [address] Jun, [facility] [address] [facility] [id number] [address] [place] [address] May, [facility] [address] [facility] [id number] [address] [place] [address] May, Other chronic pain 338.29 ; Hypertension 401.9 and Constipation due to opioid therapy 564.09 [facility] [address] [id number] [address] [place] [address] 17 May, 2015 [facility] [address] [id number] [address] [place] [address] 15 May, 2015 [facility] [address] [id number] [address] [place] [address] 17 Apr, 2015 [facility] [address] [id number] [address] [place] [address] 17 Apr, 2015 Unspecified essential hypert ension 401.9 [facility] [address] [id number] [address] [place] [address] 16 Apr, 2015 [facility] [address] [id number] [address] [place] [address] Apr, [facility] [address] [id number] [address] [place] [address] Apr, [facility] [address] [id number] [address] [place] [address] Apr, [facility] [address] [id number] [address] [place] [address] Apr, [facility] [address] [id number] [address] [place] [address] Apr, [facility] [address] [id number] [address] [place] [address] March, Unspecified essential hypert ension 401.9 [facility] [address] [id number] [address] [place] [address] March, [facility] [address] [id number] [address] [place] [address] March, [facility] [address] [id number] [address] [place] [phone] 14 Feb, 2015 [facility] [address] [id number] [address] [place] [phone] 13 Feb, 2015 [facility] [address] [id number] [address] [place] [address], [place] [address] Jan, [facility] [address] [id number] [address] [place] [address], [place] [address] 23 Jan, 2015 [facility] [address] [id number] [address] [place] [address], [place] [address] 17 Jan, 2015 [facility] [address] [id number] [address] [place] [address], [place] [address] 17 Jan, 2015 [facility] [address] [id number] [address] [place] [address], [place] [address] Jan, [facility] [address] [id number] [address] [place] [address], [place] [address] Jan, [facility] [address] [id number] [address] [place] [address], [place] [address] Jan, [facility] [address] [id number] [address] [place] [address], [place] [address] 16 Dec, 2014 [facility] [address] [id number] [address] [place] [address], [place] [address] Dec, [facility] [address] [id number] [address] [place] [address], [place] [address] Dec, [facility] [address] [id number] [address] [place] [address], [place] [address] Nov, [facility] [address] [id number] [address] [place] [address], [place] [address] Nov, [facility] [address] [id number] [address] [place] [address], [place] [address] Oct, [facility] [address] [id number] [address] [place] [address], [place] [address] Oct, [facility] [address] [id number] [address] [place] [address], [place] [address] Oct, [facility] [address] [id number] [address] [place] [id number] Oct, [facility] [address] [id number] [address] [place] [address], [place] [address] Oct, [facility] [address] [id number] [address] [place] [address], [place] [address] Oct, [facility] [address] [id number] [address] [place] [address], [place] [address] Oct, [facility] [address] [id number] [address] [place] [address], [place] [address] Oct, [facility] [address] [id number] [address] [place] [address], [place] [address] Sep, [facility] [address] [id number] [address] [place] [address], [place] [address] Sep, [facility] [address] [id number] [address] [place] [address], [place] [address] Sep, [facility] [address] [id number] [address] [place] [address], [place] [address] Sep, [facility] [address] [id number] [address] [place] [address], [place] [address] Sep, [facility] [address] [address] [id number] [address] [place] [address], [place] [address] Sep, [facility] [address] [id number] [address] [place] [address], [place] [address] Aug, [facility] [address] [id number] [address] [place] [address] Aug, [facility] [address] [id number] [address] [place] [address], [place] [address] Aug, [facility] [address] [id number] [address] [place] [address], [place] [address] Aug, [facility] [address] [id number] [address] [place] [address], [place] [address] Aug, [facility] [address] [id number] [facility] [place] [address] Aug, [facility] [address] [id number] [address] [place] [address], [place] [address] Aug, [facility] [address] [id number] [address] [place] [address], [place] [address] Aug, [facility] [address] [id number] [address] [place] [address], [place] [address] Aug, [facility] [address] [id number] [address] [place] [address], [place] [address] Aug, [facility] [address] [id number] [address] [place] [address], [place] [address] Jul, [facility] [address] [id number] [address] [place] [address], [place] [address] Jul, [facility] [address] [id number] [address] [place] [address], [place] [address] Jul, [facility] [address] [id number] [address] [place] [address], [place] [address] Jul, [facility] [address] [id number] [address] [place] [address], [place] [address] Jul, [facility] [address] [id number] [address] [place] [address], [place] [address] Jul, [facility] [address] [id number] [address] [place] [address], [place] [address] Jun, [facility] [address] [id number] [address] [place] [address], [place] [address] Jun, [facility] [address] [id number] [address] [place] [address], [place] [address] Jun, [facility] [address] [id number] [address] [place] [address], [place] [address] Jun, [facility] [address] [id number] [address] [place] [address], [place] [address] Jun, [facility] [address] [id number] [facility] [place] [address] Jun, [facility] [address] [id number] [address] [place] [address], [place] [address] May, [facility] [address] [id number] [address] [place] [address], [place] [address] May, [facility] [address] [id number] [address] [place] [address], [place] [address] May, [facility] [address] [id number] [address] [place] [address], [place] [address] May, [facility] [address] [id number] [address] [place] [address], [place] [address] May, [facility] [address] [id number] [address] [place] [address], [place] [address] Apr, [facility] [address] [id number] [address] [place] [address], [place] [address] Apr, [facility] [address] [id number] [address] [place] [address], [place] [address] Apr, [facility] [address] [id number] [address] [place] [address], [place] [address] Apr, [facility] [address] [id number] [address] [place] [address], [place] [address] March, [facility] [address] [id number] [address] [place] [address], [place] [address] March, [facility] [address] [id number] [address] [place] [address], [place] [address] March, [facility] [address] [id number] [address] [place] [address], [place] [address] March, [facility] [address] [id number] [address] [place] [address], [place] [address] March, [facility] [address] [id number] [address] [place] [address], [place] [address] March, [facility] [address] [id number] [facility] [place] [address] Feb, [facility] [address] [id number] [address] [place] [address], [place] [address] Feb, [facility] [address] [id number] [address] [place] [address], [place] [address] Feb, [facility] [address] [id number] [address] [place] [address], [place] [address] Feb, [facility] [address] [id number] [address] [place] [address], [place] [address] Feb, [facility] [address] [id number] [address] [place] [address], [place] [address] Feb, [facility] [address] [id number] [address] [place] [address], [place] [address] Feb, [facility] [address] [id number] [address] [place] [address], [place] [address] Feb, [facility] [address] [id number] [address] [place] [address], [place] [address] Jan, [facility] [address] [id number] [address] [place] [address], [place] [address] Jan, [facility] [address] [id number] [address] [place] [address], [place] [address] Jan, [facility] [address] [id number] [address] [place] [address], [place] [address] Jan, [facility] [address] [id number] [address] [place] [address], [place] [address] Jan, [facility] [address] [id number] [address] [place] [address], [place] [address] Jan, [facility] [address] [id number] [address] [place] [address], [place] [address] Dec, [facility] [address] [id number] [address] [place] [address], [place] [address] Dec, [facility] [address] [id number] [address] [place] [address], [place] [address] Nov, [facility] [address] [id number] [address] [place] [address], [place] [address] Nov, [facility] [address] [id number] [address] [place] [address], [place] [address] Nov, [facility] [address] [id number] [address] [place] [address], [place] [address] Nov, [facility] [address] [id number] [address] [place] [address], [place] [address] Nov, [facility] [address] [id number] [address] [place] [address], [place] [address] Nov, [facility] [address] [id number] [address] [place] [address], [place] [address] Nov, [facility] [address] [id number] [address] [place] [address], [place] [address] Nov, [facility] [address] [id number] [address] [place] [address], [place] [address] Nov, [facility] [address] [id number] [address] [place] [address], [place] [address] Nov, [facility] [address] [id number] [address] [place] [address], [place] [address] Nov, [facility] [address] [id number] [address] [place] [address], [place] [address] Nov, [facility] [address] [id number] [address] [place] [address], [place] [address] Nov, [facility] [address] [id number] [address] [place] [address], [place] [address] Nov, [facility] [address] [id number] [address] [place] [address] Nov, [facility] [address] [id number] [address] [place] [address] Oct, [facility] [address] [id number] [address] [place] [address] Oct, [facility] [address] [id number] [address] [place] [address] Oct, [facility] [address] [id number] [address] [place] [address] Oct, [facility] [address] [id number] [address] [place] [address] Oct, [facility] [address] [id number] [address] [place] [address] Oct, [facility] [address] [id number] [address] [place] [address] Oct, [facility] [address] [id number] [address] [place] [address] Oct, [facility] [address] [id number] [address] [place] [address] Oct, [facility] [address] [id number] [address] [place] [address] Aug, [facility] [address] [id number] [address] [place] [address] Aug, IMMUNIZATIONS No Known Immunizations SOCIAL HISTORY Never Assessed REASON FOR VISIT [facility] [place] OF CARE VITAL SIGNS MEDICATIONS No Known Medications RESULTS No Results PROCEDURES No Known procedures INSTRUCTIONS MEDICATIONS ADMINISTERED No Known Medications MEDICAL (GENERAL) HISTORY Type Description Date Medical History hypertension Medical History asthma Medical History Arthritis Medical History Hypoglycemia Medical History Heart Cath 11/05/2013 Medical History herniated disc--Seen by Dr. Troy Michelle pain specialist in [place], [place] Medical History Chronic low back pain [...]
--- OUTSIDE RECORDS SUMMARY | 2020-06-19 02:15 | XMS REPORT ---
Author Author Mahsa Lewis Doctor Organization [facility] Address Unknown Phone Unavailable Care Team Providers Care Patient Registration Rep Name Role Phone Migration, Doctor Unavailable Unavailable PROBLEMS Type Condition ICD9-CM Code [id number] Code Onset Dates Condition S tatus SNOMED Code Problem Other constipation K59.09 Active 1 [id number] Problem Primary insomnia F51.01 Active 193 246976 Problem Chronic pain syndrome G89.4 Active 369093936 Problem Essential hypertension I10 Active 03807730 Problem Anxiety F41.9 Active 68420350 Problem Major depressive disorder, recurrent episode, un specified severity F33.9 Active 24544074 Problem Atherosclerosis of [place] co ronary artery of [place] heart without angina pectoris I25.10 Active 1630582326124 Problem Bilateral low back pain, with sciatica presence unspecifie d M54.5 Active 828710665 Problem Allergic rhinitis J30.9 Active 61 830944 Problem Fibromyalgia M79.7 Active 7439642 7 Problem Degenerative disc disease, thoracic M51.34 Active 08588467 Problem B12 deficiency E53.8 Active 73991 4004 Problem Degenerative disc disease, cervical M50.30 Active 59624879 Problem Hyperlipidemia, unspecified hyperlipidemia E78.5 Active 21670984 Problem GERD (gastroesophageal reflux disease) K21.9 Active 110157134 Problem Chronic obstructive pulmonary disease, unspecified COPD ty pe J44.9 Active 17977463 Problem CKD (chronic kidney disease) stage 3, GFR 30-59 ml/min N18.3 Active 765721419 Problem Cannabis abuse F12.10 Active 59633 009 ALLERGIES No Information ENCOUNTERS Encounter Location Date Diagnosis [facility] [place] [address] [facility] [id number] [address] [place] [address] Jan, Periumbilical hernia K42.9 ; CKD (chronic kidney disease) stage 3, GFR 30-59 ml/min N18.3 ; Essential hypertension I10 ; GERD (gastroesophageal reflux disease) K21.9 ; Hyperlipidemia, unspecified hyperlipidemia E78.5 and Major depressive disorder, recurrent episode, unspecified severity F33.9 [facility] [place] [address] [id number] [address] [place] [id number] 12 Dec, 2018 Anxiety F41.9 [facility] [place] [address] [id number] [address] [place] [id number] 17 Nov, 2018 Elevated platelet count R79. 89 [facility] [place] [address] [id number] [address] [place] [id number] 15 Nov, 2018 [facility] [place] [address] [id number] [address] [place] [phone] Nov, Elevated platelet count R79. 89 [place] [address] [id number] [address] [place] [phone] Nov, Anxiety F41.9 [place] [address] [facility] [id number] [address] [place] [id number] 14 Nov, 2018 Bilateral low back pain, wit h sciatica presence unspecified M54.5 ; Cervicalgia M54.2 ; Degenerative disc disease, cervical M50.30 and Degenerative disc disease, thoracic M51.34 [place] [address] [id number] [address] [place] [phone] Nov, Chronic pain syndrome G89.4 and Bilateral low back pain, with sciatica presence unspecified M54.5 [place] [address] [facility] [id number] [address] [place] [id number] Oct, Umbilical hernia without obs truction and without gangrene K42.9 [facility] [place] [address] [id number] [address] [place] [id number] Oct, Chronic pain syndrome G89.4 [place] [address] [facility] [id number] [address] [place] [id number] Oct, Chronic pain syndrome G89.4 and Anxiety F41.9 [facility] [place] [address] [id number] [address] [place] [id number] Oct, Elevated platelet count R79. 89 [facility] [place] [address] [address] 10 Oct, 2018 CKD (chronic kidney disease) stage 3, GFR 30-59 ml/min N18.3 ; Other chest pain R07.89 ; Acute midline thoracic back pain M54.6 ; Essential hypertension I10 and History of osteoporosis Z87.[address] [address] Sep, Chronic pain syndrome G89.4 [place] [address] [address] Sep, [address] [address] Sep, Anxiety F41.9 and Chronic pa in syndrome G89.[address] [address] 18 Aug, 2018 Chronic pain syndrome G89.4 and Anxiety F41.[address] [address] Aug, [address] [address] 03 Aug, 2018 Cannabis abuse F12.10 and Co ntrolled substance agreement terminated Z91.[address] [address] 28 Jul, 2018 Chronic pain syndrome G89.4 ; Bilateral low back pain, with sciatica presence unspecified M54.5 ; Chronic prescription opiate use Z79.899 ; Essential hypertension I10 ; Hyperlipidemia, unspecified hyperlipidemia E78.5 ; CKD (chronic kidney disease) stage 3, GFR 30-59 ml/min N18.3 and Allergic rhinitis J30.[address] [address] 20 Jul, 2018 Chronic pain syndrome G89.4 and Anxiety F41.[address] [address] Jul, Screening for breast cancer Z12.31 and Major depressive disorder, recurrent episode, unspecified severity F33.9 [place] [address] [place] [id number] [place] [phone] Jun, Chronic pain syndrome G89.4 and Anxiety F41.9 [place] [address] [place] [id number] [address] [place] [phone] May, Chronic pain syndrome G89.4 and Anxiety F41.9 [place] [address] [place] [id number] [place] [phone] Apr, Anxiety F41.9 [place] [address] [address] Apr, Chronic prescription opiate use Z79.899 ; Chronic pain syndrome G89.4 ; Essential hypertension I10 ; Allergic rhinitis J30.9 and CKD (chronic kidney disease) stage 3, GFR 30-59 ml/min N18.3 [place] [address] [address] Apr, [place] [address] [place] [id number] [place] [phone] March, Anxiety F41.9 and Chronic pa in syndrome G89.4 [place] [address] [place] [id number] [place] [address] March, CKD (chronic kidney disease) stage 3, GFR 30-59 ml/min N18.3 ; B12 deficiency E53.8 and Hyperlipidemia, unspecified hyperlipidemia E78.5 [place] [address] [place] [id number] [address] [place] [phone] March, Anxiety F41.9 and Chronic pa in syndrome G89.4 [place] [address] [place] [id number] [place] [phone] Feb, Anxiety F41.9 and Chronic pa in syndrome G89.4 [place] [address] [place] [id number] [place] [phone] Jan, B12 deficiency E53.8 [place] [address] [address] Jan, [place] [address] [address] Jan, Anxiety F41.9 ; Chronic pain syndrome G89.4 and Essential hypertension I10 [place] [address] [address] Jan, CKD (chronic kidney disease) stage 3, [...] Subacromial bursitis of right shoulder joint M75.51 [place] [address] [address] Dec, Essential hypertension I10 [place] [address] [address] 15 Dec, 2017 Chronic pain syndrome G89.4 [place] [address] [address] Dec, Chronic pain syndrome G89.4 [place] [address] [address] Nov, [place] [address] [address] Nov, Chronic pain syndrome G89.4 and Anxiety F41.9 [place] [address] [address] Oct, Chronic pain syndrome G89.4 ; Other constipation K59.09 and Chronic prescription opiate use Z79.899 [place] [address] [place] [id number] [place] [id number] 08 Oct, 2017 Chronic pain syndrome G89.4 and Anxiety F41.9 [place] [address] [place] [id number] [address] [place] [phone] Sep, Essential hypertension I10 [place] [address] [place] [id number] [address] [place] [id number] 16 Sep, 2017 Chronic pain syndrome G89.4 and Anxiety F41.9 [place] [address] [place] [id number] [address] [place] [phone] Aug, Chronic pain syndrome G89.4 and Anxiety F41.9 [place] [address] [place] [id number] [address] [place] [id number] 28 Jul, 2017 Essential hypertension I10 [place] [address] [address] Jul, Chronic obstructive pulmonar y disease, unspecified COPD type J44.9 [place] [address] [place] [id number] [address] [place] [phone] Jul, Chronic pain syndrome G89.4 and Anxiety F41.9 [place] [address] [place] [id number] [address] [place] [phone] 13 Jul, 2017 Chronic pain syndrome G89.4 ; Essential hypertension I10 ; Fibromyalgia M79.7 ; CKD (chronic kidney disease) stage 3, GFR 30-59 ml/min N18.3 ; Subacromial bursitis, right M75.51 and Goals of care, co unseling/discussion Z71.89 [place] [address] [place] [id number] [address] [place] [phone] Jun, Chronic pain syndrome G89.4 and Anxiety F41.9 [place] [address] [place] [id number] [address] [place] [phone] May, Chronic pain syndrome G89.4 and Anxiety F41.9 [place] [address] [place] [id number] [address] [place] [address] Apr, Chronic pain syndrome G89.4 and Anxiety F41.9 [place] [address] [facility] [id number] [address] [place] [address] Apr, Drug induced constipation K5 9.03 ; Chronic pain syndrome G89.4 and CKD (chronic kidney disease) stage 3, GFR 30-59 ml/min N18.3 [place] [address] [facility] [id number] [address] [place] [address] Apr, Chronic pain syndrome G89.4 and Anxiety F41.9 [place] [address] [facility] [id number] [address] [place] [phone] March, Chronic pain syndrome G89.4 and Anxiety F41.9 [place] [address] [facility] [id number] [address] [place] [phone] March, Decreased GFR R94.4 [place] [address] [facility] [id number] [address] [place] [phone] Feb, [place] [address] [facility] [id number] [address] [place] [phone] Feb, Chronic pain syndrome G89.4 and Anxiety F41.9 [place] [address] [facility] [id number] [address] [place] [phone] Jan, Decreased GFR R94.4 [place] [address] [facility] [id number] [address] [place] [id number] Jan, Decreased GFR R94.4 [place] [address] [facility] [id number] [address] [place] [id number] Jan, Allergic rhinitis J30.9 ; Es sential hypertension I10 ; Major depressive disorder, recurrent episode, unspecified severity F33.9 and Primary insomnia F51.01 [facility] [place] [address] [facility] [id number] [address] [place] [phone] 10 Jan, 2017 Acute right-sided thoracic b ack pain M54.6 ; Subacromial bursitis of right shoulder joint M75.51 ; Chronic pain syndrome G89.4 and Anxiety F41.9 [facility] [place] [address] [place] [id number] [address] [place] [phone] Jan, Decreased GFR R94.4 [facility] [place] [address] [place] [id number] [address] [place] [phone] Dec, Decreased GFR R94.4 [place] [address] [place] [id number] [place] [id number] Dec, Decreased GFR R94.4 [place] [address] [facility] [id number] [address] [place] [phone] Dec, Decreased GFR R94.4 [place] [address] [facility] [id number] [place] [phone] Dec, Decreased GFR R94.4 [place] [address] [place] [id number] [place] [phone] Dec, Anxiety F41.9 and Bilateral low back pain, with sciatica presence unspecified M54.5 [place] [address] [place] [id number] [address] [place] [address] Dec, Thrombocytosis D47.3 ; Hyper lipidemia, unspecified hyperlipidemia E78.5 ; Need for hepatitis C screening test Z11.59 and B12 deficiency E53.8 [place] [address] [address] Nov, Need for hepatitis C screeni ng test Z11.59 [place] [address] [place] [id number] [address] [place] [phone] Nov, Anxiety F41.9 and Bilateral low back pain, with sciatica presence unspecified M54.5 [place] [address] [place] [id number] [place] [address] Oct, Bilateral low back pain, wit h sciatica presence unspecified M54.5 ; Chronic prescription opiate use Z79.899 ; Anxiety F41.9 ; Essential hypertension I10 ; Hyperlipidemia, unspecified hyperlipidemia E78.5 ; Health care maintenance Z00.00 and Thrombocytosis D47.3 [facility] [place] [address] [facility] [id number] [address] [place] [phone] Sep, [facility] [place] [address] [facility] [id number] [address] [place] [phone] Sep, [place] [id number] [place] [address] Aug, [facility] [place] [address] [address] Jul, B12 deficiency E53.8 [place] [address] [address] Jul, [place] [address] [address] Jul, Essential hypertension I10 ; Chronic pain syndrome G89.4 ; Anxiety F41.9 ; Screening for breast cancer Z12.39 ; Atherosclerosis of [place] coronary artery of [place] heart without angina pectoris I25.10 ; Major depressive disorder, recurrent episode, unspecified severity F33.9 ; Primary insomnia F51.01 and Allergic rhinitis J30.9 [place] [address] [place] [id number] [address] [place] [address] Jun, [facility] [address] [place] [id number] [address] [place] [phone] Jun, Leg wound, right, initial en counter S81.801A and Encounter for immunization Z23 [place] [address] [facility] [id number] [address] [place] [phone] Jun, Open wound of right ear, uns pecified open wound type, initial encounter S01.301A [place] [address] [facility] [id number] [address] [place] [address] May, B12 deficiency E53.8 [place] [address] [place] [id number] [address] [place] [phone] May, [place] [address] [place] [id number] [place] [address] May, [facility] [place] [address] [address] May, Chronic pain syndrome G89.4 ; Chronic prescription opiate use Z79.899 ; Allergic rhinitis J30.9 ; Essential hypertension I10 and Non-healing skin lesion L98.9 [facility] [place] [address] [address] Apr, [facility] [place] [address] [address] March, [facility] [place] [address] [address] Feb, [place] [address] [address] Feb, [facility] [place] [address] [address] Feb, Chronic pain syndrome G89.4 ; Anxiety F41.9 ; B12 deficiency E53.8 ; Allergic rhinitis J30.9 ; Fibromyalgia M79.7 ; Actinic keratosis L57.0 ; Skin rash R21 ; Open wound of right ear, unspecified open wound type, initial encounter S01.301A ; Subacromial bursitis, right M75.51 ; GERD (gastroesophageal reflux disease) K21.9 and Chronic obstructive pulmonary disease, unspecified COPD type J44.9 [facility] [place] [address] [place] [id number] [address] [place] [address] Jan, [facility] [place] [address] [address] Jan, Essential hypertension I10 [facility] [place] [address] [address] Jan, [facility] [place] [address] [address] Jan, [facility] [place] [address] [place] [id number] [address] [place] [address] Jan, [facility] [place] [address] [address] Dec, [facility] [place] [address] [address] Dec, Essential hypertension I10 [facility] [place] [address] [address] Dec, [facility] [place] [address] [address] Dec, B12 deficiency E53.8 and Ess ential hypertension I10 [place] [address] [address] Dec, [facility] [place] [address] [address] Nov, Right shoulder pain M25.511 [place] [address] [address] Nov, Right shoulder pain M25.511 [place] [address] [address] Nov, Essential hypertension I10 a nd B12 deficiency E53.8 [place] [address] [address] Nov, Major depressive disorder, r ecurrent episode, unspecified severity F33.9 ; Anxiety F41.9 ; Chronic pain syndrome G89.4 ; Essential hypertension I10 ; Hyperlipidemia, unspecified hyperlipidemia E78.5 ; Chronic prescription opiate use Z79.899 ; Allergic rhinitis J30.9 ; B12 deficiency E53.8 and Right shoulder pain M25.511 [facility] [place] [address] [address] Oct, [place] [address] [address] Oct, [facility] [place] [address] [facility] [id number] [address] [place] [address] Sep, [facility] [place] [address] [facility] [id number] [address] [place] [address] Sep, [facility] [place] [address] [facility] [id number] [address] [place] [address] Aug, [facility] [place] [address] [facility] [id number] [address] [place] [phone] Aug, [facility] [place] [address] [facility] [id number] [address] [place] [phone] Aug, [facility] [place] [address] [facility] [id number] [address] [place] [address] Aug, Other constipation K59.09 ; Hyperlipidemia, unspecified hyperlipidemia E78.5 ; Essential hypertension I10 ; Primary insomnia F51.01 ; Anxiety F41.9 ; Chronic pain syndrome G89.4 ; Right shoulder pain M25.511 and Acute cystitis without hematuria N30.00 [facility] [place] [address] [place] [id number] [address] [place] [phone] Jul, [facility] [place] [address] [facility] [id number] [address] [place] [phone] Jul, [facility] [place] [address] [place] [id number] [address] [place] [phone] Jun, [facility] [place] [address] [facility] [id number] [address] [place] [phone] Jun, [facility] [place] [address] [facility] [id number] [address] [place] [id number] Jun, [facility] [place] [address] [facility] [id number] [address] [place] [phone] May, [facility] [place] [address] [facility] [id number] [address] [place] [phone] May, Other chronic pain 338.29 ; Hypertension 401.9 and Constipation due to opioid therapy 564.09 [facility] [address] [id number] [address] [place] [phone] 17 May, 2015 [facility] [address] [id number] [address] [place] [id number] 15 May, 2015 [facility] [address] [id number] [address] [place] [phone] 17 Apr, 2015 [facility] [address] [id number] [address] [place] [phone] 17 Apr, 2015 Unspecified essential hypert ension 401.9 [facility] [address] [id number] [address] [place] [id number] 16 Apr, 2015 [facility] [address] [id number] [address] [place] [phone] Apr, [facility] [address] [id number] [address] [place] [phone] Apr, [facility] [address] [id number] [address] [place] [phone] Apr, [facility] [address] [id number] [address] [place] [phone] Apr, [facility] [address] [id number] [address] [place] [phone] Apr, [facility] [address] [id number] [address] [place] [id number] March, Unspecified essential hypert ension 401.9 [facility] [address] [id number] [address] [place] [phone] March, [facility] [address] [id number] [address] [place] [phone] March, [facility] [address] [id number] [address] [place] [phone] 14 Feb, 2015 [facility] [address] [id number] [address] [place] [phone] 13 Feb, 2015 [facility] [address] [id number] [address] [place] [address], [place] [id number] Jan, [facility] [address] [id number] [address] [place] [address], [place] [address] 23 Jan, 2015 [facility] [address] [id number] [address] [place] [address], [place] [address] 17 Jan, 2015 [facility] [address] [id number] [address] [place] [address], [place] [address] 17 Jan, 2015 [facility] [address] [id number] [address] [place] [address], [place] [address] Jan, [facility] [address] [id number] [address] [place] [address], [place] [address] Jan, [facility] [address] [id number] [address] [place] [address], [place] [address] Jan, [facility] [address] [id number] [address] [place] [address], [place] [address] 16 Dec, 2014 [facility] [address] [id number] [address] [place] [address], [place] [address] Dec, [facility] [address] [id number] [address] [place] [address], [place] [address] Dec, [facility] [address] [id number] [address] [place] [address], [place] [address] Nov, [facility] [address] [id number] [address] [place] [address], [place] [address] Nov, [facility] [address] [id number] [address] [place] [address], [place] [address] Oct, [facility] [address] [id number] [address] [place] [address], [place] [address] Oct, [facility] [address] [id number] [address] [place] [address], [place] [address] Oct, [facility] [address] [id number] [address] [place] [address] Oct, [facility] [address] [id number] [address] [place] [address], [place] [address] Oct, [facility] [address] [id number] [address] [place] [address], [place] [address] Oct, [facility] [address] [id number] [address] [place] [address], [place] [address] Oct, [facility] [address] [id number] [address] [place] [address], [place] [address] Oct, [facility] [address] [id number] [address] [place] [address], [place] [address] Sep, [facility] [address] [id number] [address] [place] [address], [place] [address] Sep, [facility] [address] [id number] [address] [place] [address], [place] [address] Sep, [facility] [address] [id number] [address] [place] [address], [place] [address] Sep, [facility] [address] [id number] [address] [place] [address], [place] [address] Sep, [facility] [address] [id number] [address] [place] [address], [place] [address] Sep, [facility] [address] [id number] [address] [place] [address], [place] [address] Aug, [facility] [address] [id number] [address] [place] [address] Aug, [facility] [address] [id number] [address] [place] [address], [place] [address] Aug, [facility] [address] [id number] [address] [place] [address], [place] [address] Aug, [facility] [address] [id number] [address] [place] [address], [place] [address] Aug, [facility] [address] [id number] [facility] [place] [address] Aug, [facility] [address] [id number] [address] [place] [address], [place] [address] Aug, [facility] [address] [id number] [address] [place] [address], [place] [address] Aug, [facility] [address] [id number] [address] [place] [address], [place] [address] Aug, [facility] [address] [id number] [address] [place] [address], [place] [address] Aug, [facility] [address] [id number] [address] [place] [address], [place] [address] Jul, [facility] [address] [id number] [address] [place] [address], [place] [address] Jul, [facility] [address] [id number] [address] [place] [address], [place] [address] Jul, [facility] [address] [id number] [address] [place] [address], [place] [address] Jul, [facility] [address] [id number] [address] [place] [address], [place] [address] Jul, [facility] [address] [id number] [address] [place] [address], [place] [address] Jul, [facility] [address] [id number] [address] [place] [address], [place] [address] Jun, [facility] [address] [id number] [address] [place] [address], [place] [address] Jun, [facility] [address] [id number] [address] [place] [address], [place] [address] Jun, [facility] [address] [id number] [address] [place] [address], [place] [address] Jun, [facility] [address] [id number] [address] [place] [address], [place] [address] Jun, [facility] [address] [id number] [facility] [place] [address] Jun, [facility] [address] [id number] [address] [place] [address], [place] [address] May, [facility] [address] [id number] [address] [place] [address], [place] [address] May, [facility] [address] [id number] [address] [place] [address], [place] [address] May, [facility] [address] [id number] [address] [place] [address], [place] [address] May, [facility] [address] [id number] [address] [place] [address], [place] [address] May, [facility] [address] [id number] [address] [place] [address], [place] [address] Apr, [facility] [address] [id number] [address] [place] [address], [place] [address] Apr, [facility] [address] [id number] [address] [place] [address], [place] [address] Apr, [facility] [address] [id number] [address] [place] [address], [place] [address] Apr, [facility] [address] [id number] [address] [place] [address], [place] [address] March, [facility] [address] [id number] [address] [place] [address], [place] [address] March, [facility] [address] [id number] [address] [place] [address], [place] [address] March, [facility] [address] [id number] [address] [place] [address], [place] [address] March, [facility] [address] [id number] [address] [place] [address], [place] [address] March, [facility] [address] [id number] [address] [place] [address], [place] [address] March, [facility] [address] [id number] [facility] [place] [address] Feb, [facility] [address] [id number] [address] [place] [address], [place] [address] Feb, [facility] [address] [id number] [address] [place] [address], [place] [address] Feb, [facility] [address] [id number] [address] [place] [address], [place] [address] Feb, [facility] [address] [id number] [address] [place] [address], [place] [address] Feb, [facility] [address] [id number] [address] [place] [address], [place] [address] Feb, [facility] [address] [id number] [address] [place] [address], [place] [address] Feb, [facility] [address] [id number] [address] [place] [address], [place] [address] Feb, [facility] [address] [id number] [address] [place] [address], [place] [address] Jan, [facility] [address] [id number] [address] [place] [address], [place] [address] Jan, [facility] [address] [id number] [address] [place] [address], [place] [address] Jan, [facility] [address] [id number] [address] [place] [address], [place] [address] Jan, [facility] [address] [id number] [address] [place] [address], [place] [address] Jan, [facility] [address] [id number] [address] [place] [address], [place] [address] Jan, [facility] [address] [id number] [address] [place] [address], [place] [address] Dec, [facility] [address] [id number] [address] [place] [address], [place] [address] Dec, [facility] [address] [id number] [address] [place] [address], [place] [address] Nov, [facility] [address] [id number] [address] [place] [address], [place] [address] Nov, [facility] [address] [id number] [address] [place] [address], [place] [address] Nov, [facility] [address] [id number] [address] [place] [address], [place] [address] Nov, [facility] [address] [id number] [address] [place] [address], [place] [address] Nov, [facility] [address] [id number] [address] [place] [address], [place] [address] Nov, [facility] [address] [id number] [address] [place] [address], [place] [address] Nov, [facility] [address] [id number] [address] [place] [address], [place] [address] Nov, [facility] [address] [id number] [address] [place] [address], [place] [address] Nov, [facility] [address] [id number] [address] [place] [address], [place] [address] Nov, [facility] [address] [id number] [address] [place] [address], [place] [address] Nov, [facility] [address] [id number] [address] [place] [address], [place] [address] Nov, [facility] [address] [id number] [address] [place] [address], [place] [address] Nov, [facility] [address] [id number] [address] [place] [address], [place] [address] Nov, [facility] [address] [id number] [address] [place] [address] Nov, [facility] [place] [address] [id number] [address] [place] [address] Oct, [facility] [place] [address] [id number] [address] [place] [address] Oct, [facility] [place] [address] [id number] [address] [place] [address] Oct, [facility] [place] [address] [id number] [address] [place] [address] Oct, [facility] [place] [address] [id number] [address] [place] [address] Oct, [facility] [place] [address] [id number] [address] [place] [address] Oct, [facility] [place] [address] [id number] [address] [place] [address] Oct, [facility] [place] [address] [id number] [address] [place] [address] Oct, [facility] [place] [address] [id number] [address] [place] [address] Oct, [facility] [place] [address] [id number] [address] [place] [address] Aug, [facility] [place] [address] [id number] [address] [place] [address] Aug, IMMUNIZATIONS No Known Immunizations SOCIAL HISTORY Never Assessed REASON FOR VISIT [facility] PLAN OF CARE VITAL SIGNS MEDICATIONS No Known Medications RESULTS No Results PROCEDURES No Known procedures INSTRUCTIONS MEDICATIONS ADMINISTERED No Known Medications MEDICAL (GENERAL) HISTORY Type Description Date Medical History hypertension Medical History asthma Medical History Arthritis Medical History Hypoglycemia Medical History Heart Cath 11/05/2013 Medical History herniated disc--Seen by Dr. Troy Michelle pain specialist in [employer] Medical History Chronic low back pain [...]
--- OUTSIDE RECORDS SUMMARY | 2020-06-19 02:15 | XMS REPORT ---
Author Author Mahsa Lewis Doctor Organization [facility] Address Unknown Phone Unavailable Care Team Providers Care Electronic Engineering Technician Name Role Phone Migration, Doctor Unavailable Unavailable PROBLEMS Type Condition ICD9-CM Code JVR21-UT Code Onset Dates Condition S tatus SNOMED Code Problem Other constipation K59.09 Active 1 [id number] Problem Primary insomnia F51.01 Active 193 967625 Problem Chronic pain syndrome G89.4 Active 306684479 Problem Essential hypertension I10 Active 05350614 Problem Anxiety F41.9 Active 15366825 Problem Major depressive disorder, recurrent episode, un specified severity F33.9 Active 28590561 Problem Atherosclerosis of [place] co ronary artery of [place] heart without angina pectoris I25.10 Active [id number] Problem Bilateral low back pain, with sciatica presence unspecifie d M54.5 Active 874841741 Problem Allergic rhinitis J30.9 Active 61 947970 Problem Fibromyalgia M79.7 Active 6379129 7 Problem Degenerative disc disease, thoracic M51.34 Active 13929846 Problem B12 deficiency E53.8 Active 79765 4004 Problem Degenerative disc disease, cervical M50.30 Active 02169358 Problem Hyperlipidemia, unspecified hyperlipidemia E78.5 Active 79609816 Problem GERD (gastroesophageal reflux disease) K21.9 Active 527472273 Problem Chronic obstructive pulmonary disease, unspecified COPD ty pe J44.9 Active 12542327 Problem CKD (chronic kidney disease) stage 3, GFR 30-59 ml/min N18.3 Active 905336338 Problem Cannabis abuse F12.10 Active 94378 009 ALLERGIES No Information ENCOUNTERS Encounter Location Date Diagnosis [facility] [address] [id number] [address] [place] [address] Jan, Periumbilical hernia K42.9 ; CKD (chronic kidney disease) stage 3, GFR 30-59 ml/min N18.3 ; Essential hypertension I10 ; GERD (gastroesophageal reflux disease) K21.9 ; Hyperlipidemia, unspecified hyperlipidemia E78.5 and Major depressive disorder, recurrent episode, unspecified severity F33.9 [facility] [address] [id number] [address] [place] [id number] 12 Dec, 2018 Anxiety F41.9 [facility] [address] [id number] [address] [place] [id number] 17 Nov, 2018 Elevated platelet count R79. 89 [facility] [address] [id number] [address] [place] [id number] 15 Nov, 2018 [facility] [address] [id number] [address] [place] [id number] Nov, Elevated platelet count R79. 89 [place] [address] [id number] [address] [place] [phone] Nov, Anxiety F41.9 [place] [address] [facility] [facility] [id number] [address] [place] [id number] 14 Nov, 2018 Bilateral low back pain, wit h sciatica presence unspecified M54.5 ; Cervicalgia M54.2 ; Degenerative disc disease, cervical M50.30 and Degenerative disc disease, thoracic M51.34 [place] [address] [id number] [address] [place] [id number] Nov, Chronic pain syndrome G89.4 and Bilateral low back pain, with sciatica presence unspecified M54.5 [place] [address] [facility] [id number] [address] [place] [phone] Oct, Umbilical hernia without obs truction and without gangrene K42.9 [facility] [address] [id number] [address] [place] [id number] Oct, Chronic pain syndrome G89.4 [place] [address] [facility] [id number] [address] [place] [id number] Oct, Chronic pain syndrome G89.4 and Anxiety F41.9 [facility] [address] [id number] [address] [place] [id number] Oct, Elevated platelet count R79. 89 [facility] [address] [address] 10 Oct, 2018 CKD (chronic kidney disease) stage 3, GFR 30-59 ml/min N18.3 ; Other chest pain R07.89 ; Acute midline thoracic back pain M54.6 ; Essential hypertension I10 and History of osteoporosis Z87.[address] [address] Sep, Chronic pain syndrome G89.4 [place] [address] [address] Sep, [address] [address] Sep, Anxiety F41.9 and Chronic pa in syndrome G89.[address] [address] 18 Aug, 2018 Chronic pain syndrome G89.4 and Anxiety F41.[address] [address] Aug, [address] [address] 03 Aug, 2018 Cannabis abuse F12.10 and Co ntrolled substance agreement terminated Z91.[address] [address] 28 Jul, 2018 Chronic pain syndrome G89.4 ; Bilateral low back pain, with sciatica presence unspecified M54.5 ; Chronic prescription opiate use Z79.899 ; Essential hypertension I10 ; Hyperlipidemia, unspecified hyperlipidemia E78.5 ; CKD (chronic kidney disease) stage 3, GFR 30-59 ml/min N18.3 and Allergic rhinitis J30.[address] [address] 20 Jul, 2018 Chronic pain syndrome G89.4 and Anxiety F41.[address] [address] Jul, Screening for breast cancer Z12.31 and Major depressive disorder, recurrent episode, unspecified severity F33.9 [place] [address] [place] [id number] [place] [address] Jun, Chronic pain syndrome G89.4 and Anxiety F41.9 [place] [address] [place] [id number] [address] [place] [id number] May, Chronic pain syndrome G89.4 and Anxiety F41.9 [place] [address] [place] [id number] [place] [address] Apr, Anxiety F41.9 [place] [address] [address] Apr, Chronic prescription opiate use Z79.899 ; Chronic pain syndrome G89.4 ; Essential hypertension I10 ; Allergic rhinitis J30.9 and CKD (chronic kidney disease) stage 3, GFR 30-59 ml/min N18.3 [place] [address] [address] Apr, [place] [address] [place] [id number] [place] [address] March, Anxiety F41.9 and Chronic pa in syndrome G89.4 [place] [address] [place] [id number] [place] [id number] March, CKD (chronic kidney disease) stage 3, GFR 30-59 ml/min N18.3 ; B12 deficiency E53.8 and Hyperlipidemia, unspecified hyperlipidemia E78.5 [place] [address] [place] [id number] [address] [place] [phone] March, Anxiety F41.9 and Chronic pa in syndrome G89.4 [place] [address] [place] [id number] [place] [address] Feb, Anxiety F41.9 and Chronic pa in syndrome G89.4 [place] [address] [place] [id number] [place] [phone] Jan, B12 deficiency E53.8 [place] [address] [address] Jan, [place] [address] [address] Jan, Anxiety F41.9 ; Chronic pain syndrome G89.4 and Essential hypertension I10 [place] [address] [address] Jan, CKD (chronic kidney disease) stage 3, [...] Subacromial bursitis of right shoulder joint M75.51 [place] [address] [address] Dec, Essential hypertension I10 [place] [address] [address] 15 Dec, 2017 Chronic pain syndrome G89.4 [place] [address] [address] Dec, Chronic pain syndrome G89.4 [place] [address] [address] Nov, [place] [address] [address] Nov, Chronic pain syndrome G89.4 and Anxiety F41.9 [place] [address] [address] Oct, Chronic pain syndrome G89.4 ; Other constipation K59.09 and Chronic prescription opiate use Z79.899 [place] [address] [place] [id number] [place] [id number] 08 Oct, 2017 Chronic pain syndrome G89.4 and Anxiety F41.9 [place] [address] [place] [id number] [address] [place] [id number] Sep, Essential hypertension I10 [place] [address] [place] [id number] [address] [place] [id number] 16 Sep, 2017 Chronic pain syndrome G89.4 and Anxiety F41.9 [place] [address] [place] [id number] [address] [place] [id number] Aug, Chronic pain syndrome G89.4 and Anxiety F41.9 [place] [address] [place] [id number] [address] [place] [id number] 28 Jul, 2017 Essential hypertension I10 [place] [address] [address] Jul, Chronic obstructive pulmonar y disease, unspecified COPD type J44.9 [place] [address] [place] [id number] [address] [place] [id number] Jul, Chronic pain syndrome G89.4 and Anxiety F41.9 [place] [address] [place] [id number] [address] [place] [id number] 13 Jul, 2017 Chronic pain syndrome G89.4 ; Essential hypertension I10 ; Fibromyalgia M79.7 ; CKD (chronic kidney disease) stage 3, GFR 30-59 ml/min N18.3 ; Subacromial bursitis, right M75.51 and Goals of care, co unseling/discussion Z71.89 [place] [address] [place] [id number] [address] [place] [address] Jun, Chronic pain syndrome G89.4 and Anxiety F41.9 [place] [address] [place] [id number] [address] [place] [phone] May, Chronic pain syndrome G89.4 and Anxiety F41.9 [place] [address] [place] [id number] [address] [place] [address] Apr, Chronic pain syndrome G89.4 and Anxiety F41.9 [place] [address] [facility] [id number] [address] [place] [address] Apr, Drug induced constipation K5 9.03 ; Chronic pain syndrome G89.4 and CKD (chronic kidney disease) stage 3, GFR 30-59 ml/min N18.3 [place] [address] [facility] [id number] [address] [place] [id number] Apr, Chronic pain syndrome G89.4 and Anxiety F41.9 [place] [address] [facility] [id number] [address] [place] [id number] March, Chronic pain syndrome G89.4 and Anxiety F41.9 [place] [address] [facility] [id number] [address] [place] [phone] March, Decreased GFR R94.4 [place] [address] [facility] [id number] [address] [place] [id number] Feb, [place] [address] [facility] [id number] [address] [place] [phone] Feb, Chronic pain syndrome G89.4 and Anxiety F41.9 [place] [address] [facility] [id number] [address] [place] [address] Jan, Decreased GFR R94.4 [place] [address] [facility] [id number] [address] [place] [id number] Jan, Decreased GFR R94.4 [place] [address] [facility] [id number] [address] [place] [address] Jan, Allergic rhinitis J30.9 ; Es sential hypertension I10 ; Major depressive disorder, recurrent episode, unspecified severity F33.9 and Primary insomnia F51.01 [facility] [address] [facility] [id number] [address] [place] [id number] 10 Jan, 2017 Acute right-sided thoracic b ack pain M54.6 ; Subacromial bursitis of right shoulder joint M75.51 ; Chronic pain syndrome G89.4 and Anxiety F41.9 [facility] [address] [place] [id number] [address] [place] [id number] Jan, Decreased GFR R94.4 [facility] [address] [place] [id number] [address] [place] [phone] Dec, Decreased GFR R94.4 [place] [address] [place] [id number] [place] [address] Dec, Decreased GFR R94.4 [place] [address] [facility] [id number] [address] [place] [address] Dec, Decreased GFR R94.4 [place] [address] [facility] [id number] [place] [address] Dec, Decreased GFR R94.4 [place] [address] [place] [id number] [place] [address] Dec, Anxiety F41.9 and Bilateral low back pain, with sciatica presence unspecified M54.5 [place] [address] [place] [id number] [address] [place] [address] Dec, Thrombocytosis D47.3 ; Hyper lipidemia, unspecified hyperlipidemia E78.5 ; Need for hepatitis C screening test Z11.59 and B12 deficiency E53.8 [place] [address] [address] Nov, Need for hepatitis C screeni ng test Z11.59 [place] [address] [place] [id number] [address] [place] [address] Nov, Anxiety F41.9 and Bilateral low back pain, with sciatica presence unspecified M54.5 [place] [address] [place] [id number] [place] [address] Oct, Bilateral low back pain, wit h sciatica presence unspecified M54.5 ; Chronic prescription opiate use Z79.899 ; Anxiety F41.9 ; Essential hypertension I10 ; Hyperlipidemia, unspecified hyperlipidemia E78.5 ; Health care maintenance Z00.00 and Thrombocytosis D47.3 [facility] [address] [facility] [facility] [id number] [address] [place] [id number] Sep, [facility] [address] [facility] [id number] [address] [place] [id number] Sep, [place] [id number] [place] [address] Aug, [facility] [address] [address] Jul, B12 deficiency E53.8 [place] [address] [address] Jul, [place] [address] [address] Jul, Essential hypertension I10 ; Chronic pain syndrome G89.4 ; Anxiety F41.9 ; Screening for breast cancer Z12.39 ; Atherosclerosis of [place] coronary artery of [place] heart without angina pectoris I25.10 ; Major depressive disorder, recurrent episode, unspecified severity F33.9 ; Primary insomnia F51.01 and Allergic rhinitis J30.9 [place] [address] [place] [id number] [address] [place] [id number] Jun, [facility] [address] [place] [id number] [address] [place] [id number] Jun, Leg wound, right, initial en counter S81.801A and Encounter for immunization Z23 [place] [address] [facility] [id number] [address] [place] [address] Jun, Open wound of right ear, uns pecified open wound type, initial encounter S01.301A [place] [address] [facility] [id number] [address] [place] [address] May, B12 deficiency E53.8 [place] [address] [place] [id number] [address] [place] [id number] May, [place] [address] [place] [id number] [address] [place] [address] May, [facility] [address] [address] May, Chronic pain syndrome G89.4 ; Chronic prescription opiate use Z79.899 ; Allergic rhinitis J30.9 ; Essential hypertension I10 and Non-healing skin lesion L98.9 [facility] [address] [address] Apr, [facility] [address] [address] March, [facility] [address] [address] Feb, [place] [address] [address] Feb, [facility] [address] [address] Feb, Chronic pain syndrome G89.4 ; Anxiety F41.9 ; B12 deficiency E53.8 ; Allergic rhinitis J30.9 ; Fibromyalgia M79.7 ; Actinic keratosis L57.0 ; Skin rash R21 ; Open wound of right ear, unspecified open wound type, initial encounter S01.301A ; Subacromial bursitis, right M75.51 ; GERD (gastroesophageal reflux disease) K21.9 and Chronic obstructive pulmonary disease, unspecified COPD type J44.9 [facility] [address] [place] [id number] [address] [place] [address] Jan, [facility] [address] [address] Jan, Essential hypertension I10 [facility] [address] [address] Jan, [facility] [address] [address] Jan, [facility] [address] [place] [id number] [address] [place] [address] Jan, [facility] [address] [address] Dec, [facility] [address] [address] Dec, Essential hypertension I10 [facility] [address] [address] Dec, [facility] [address] [address] Dec, B12 deficiency E53.8 and Ess ential hypertension I10 [place] [address] [address] Dec, [facility] [address] [address] Nov, Right shoulder pain M25.511 [place] [address] [address] Nov, Right shoulder pain M25.511 [place] [address] [address] Nov, Essential hypertension I10 a nd B12 deficiency E53.8 [place] [address] [address] Nov, Major depressive disorder, r ecurrent episode, unspecified severity F33.9 ; Anxiety F41.9 ; Chronic pain syndrome G89.4 ; Essential hypertension I10 ; Hyperlipidemia, unspecified hyperlipidemia E78.5 ; Chronic prescription opiate use Z79.899 ; Allergic rhinitis J30.9 ; B12 deficiency E53.8 and Right shoulder pain M25.511 [facility] [address] [address] Oct, [place] [address] [address] Oct, [facility] [address] [facility] [facility] [id number] [address] [place] [address] Sep, [facility] [address] [facility] [id number] [address] [place] [id number] Sep, [facility] [address] [facility] [id number] [address] [place] [id number] Aug, [facility] [address] [facility] [id number] [address] [place] [address] Aug, [facility] [address] [facility] [id number] [address] [place] [id number] Aug, [facility] [address] [facility] [id number] [address] [place] [address] Aug, Other constipation K59.09 ; Hyperlipidemia, unspecified hyperlipidemia E78.5 ; Essential hypertension I10 ; Primary insomnia F51.01 ; Anxiety F41.9 ; Chronic pain syndrome G89.4 ; Right shoulder pain M25.511 and Acute cystitis without hematuria N30.00 [facility] [address] [place] [id number] [address] [place] [id number] Jul, [facility] [address] [facility] [facility] [id number] [address] [place] [id number] Jul, [facility] [address] [place] [id number] [address] [place] [address] Jun, [facility] [address] [facility] [facility] [id number] [address] [place] [phone] Jun, [facility] [address] [facility] [facility] [id number] [address] [place] [id number] Jun, [facility] [address] [facility] [facility] [id number] [address] [place] [id number] May, [facility] [address] [facility] [facility] [id number] [address] [place] [address] May, Other chronic pain 338.29 ; Hypertension 401.9 and Constipation due to opioid therapy 564.09 [facility] [address] [id number] [address] [place] [id number] 17 May, 2015 [facility] [address] [id number] [address] [place] [id number] 15 May, 2015 [facility] [address] [id number] [address] [place] [id number] 17 Apr, 2015 [facility] [address] [id number] [address] [place] [id number] 17 Apr, 2015 Unspecified essential hypert ension 401.9 [facility] [address] [id number] [address] [place] [id number] 16 Apr, 2015 [facility] [address] [id number] [address] [place] [phone] Apr, [facility] [address] [id number] [address] [place] [id number] Apr, [facility] [address] [id number] [address] [place] [id number] Apr, [facility] [address] [id number] [address] [place] [phone] Apr, [facility] [address] [id number] [address] [place] [id number] Apr, [facility] [address] [id number] [address] [place] [id number] March, Unspecified essential hypert ension 401.9 [facility] [address] [id number] [address] [place] [phone] March, [facility] [address] [id number] [address] [place] [id number] March, [facility] [address] [id number] [address] [place] [id number] 14 Feb, 2015 [facility] [address] [id number] [address] [place] [id number] 13 Feb, 2015 [facility] [address] [id number] [address] [place] [address], [place] [address] Jan, [facility] [address] [id number] [address] [place] [address], [place] [id number] 23 Jan, 2015 [facility] [address] [id number] [address] [place] [address], [place] [id number] 17 Jan, 2015 [facility] [address] [id number] [address] [place] [address], [place] [id number] 17 Jan, 2015 [facility] [address] [id number] [address] [place] [address], [place] [address] Jan, [facility] [address] [id number] [address] [place] [address], [place] [address] Jan, [facility] [address] [id number] [address] [place] [address], [place] [address] Jan, [facility] [address] [id number] [address] [place] [address], [place] [id number] 16 Dec, 2014 [facility] [address] [id number] [address] [place] [address], [place] [address] Dec, [facility] [address] [id number] [address] [place] [address], [place] [address] Dec, [facility] [address] [id number] [address] [place] [address], [place] [address] Nov, [facility] [address] [id number] [address] [place] [address], [place] [id number] Nov, [facility] [address] [id number] [address] [place] [address], [place] [address] Oct, [facility] [address] [id number] [address] [place] [address], [place] [address] Oct, [facility] [address] [id number] [address] [place] [address], [place] [address] Oct, [facility] [address] [id number] [address] [place] [id number] Oct, [facility] [address] [id number] [address] [place] [address], [place] [address] Oct, [facility] [address] [id number] [address] [place] [address], [place] [address] Oct, [facility] [address] [id number] [address] [place] [address], [place] [address] Oct, [facility] [address] [id number] [address] [place] [address], [place] [address] Oct, [facility] [address] [id number] [address] [place] [address], [place] [address] Sep, [facility] [address] [id number] [address] [place] [address], [place] [address] Sep, [facility] [address] [id number] [address] [place] [address], [place] [address] Sep, [facility] [address] [id number] [address] [place] [address], [place] [address] Sep, [facility] [address] [id number] [address] [place] [address], [place] [address] Sep, [facility] [address] [id number] [address] [place] [address], [place] [address] Sep, [facility] [address] [id number] [address] [place] [address], [place] [address] Aug, [facility] [address] [id number] [address] [place] [address] Aug, [facility] [address] [id number] [address] [place] [address], [place] [address] Aug, [facility] [address] [id number] [address] [place] [address], [place] [address] Aug, [facility] [address] [id number] [address] [place] [address], [place] [address] Aug, [facility] [address] [id number] [address] [place] [address] Aug, [facility] [address] [id number] [address] [place] [address], [place] [address] Aug, [facility] [address] [id number] [address] [place] [address], [place] [address] Aug, [facility] [address] [id number] [address] [place] [address], [place] [address] Aug, [facility] [address] [id number] [address] [place] [address], [place] [address] Aug, [facility] [address] [id number] [address] [place] [address], [place] [address] Jul, [facility] [address] [id number] [address] [place] [address], [place] [address] Jul, [facility] [address] [id number] [address] [place] [address], [place] [address] Jul, [facility] [address] [id number] [address] [place] [address], [place] [address] Jul, [facility] [address] [id number] [address] [place] [address], [place] [address] Jul, [facility] [address] [id number] [address] [place] [address], [place] [address] Jul, [facility] [address] [id number] [address] [place] [address], [place] [address] Jun, [facility] [address] [id number] [address] [place] [address], [place] [address] Jun, [facility] [address] [id number] [address] [place] [address], [place] [address] Jun, [facility] [address] [id number] [address] [place] [address], [place] [address] Jun, [facility] [address] [id number] [address] [place] [address], [place] [address] Jun, [facility] [address] [id number] [address] [place] [address] Jun, [facility] [address] [id number] [address] [place] [address], [place] [address] May, [facility] [address] [id number] [address] [place] [address], [place] [address] May, [facility] [address] [id number] [address] [place] [address], [place] [address] May, [facility] [address] [id number] [address] [place] [address], [place] [address] May, [facility] [address] [id number] [address] [place] [address], [place] [address] May, [facility] [address] [id number] [address] [place] [address], [place] [address] Apr, [facility] [address] [id number] [address] [place] [address], [place] [address] Apr, [facility] [address] [id number] [address] [place] [address], [place] [address] Apr, [facility] [address] [id number] [address] [place] [address], [place] [address] Apr, [facility] [address] [id number] [address] [place] [address], [place] [address] March, [facility] [address] [id number] [address] [place] [address], [place] [address] March, [facility] [address] [id number] [address] [place] [address], [place] [address] March, [facility] [address] [id number] [address] [place] [address], [place] [address] March, [facility] [address] [id number] [address] [place] [address], [place] [address] March, [facility] [address] [id number] [address] [place] [address], [place] [address] March, [facility] [address] [id number] [address] [place] [address] Feb, [facility] [address] [id number] [address] [place] [address], [place] [address] Feb, [facility] [address] [id number] [address] [place] [address], [place] [address] Feb, [facility] [address] [id number] [address] [place] [address], [place] [address] Feb, [facility] [address] [id number] [address] [place] [address], [place] [address] Feb, [facility] [address] [id number] [address] [place] [address], [place] [address] Feb, [facility] [address] [id number] [address] [place] [address], [place] [address] Feb, [facility] [address] [id number] [address] [place] [address], [place] [address] Feb, [facility] [address] [id number] [address] [place] [address], [place] [address] Jan, [facility] [address] [id number] [address] [place] [address], [place] [address] Jan, [facility] [address] [id number] [address] [place] [address], [place] [address] Jan, [facility] [address] [id number] [address] [place] [address], [place] [address] Jan, [facility] [address] [id number] [address] [place] [address], [place] [address] Jan, [facility] [address] [id number] [address] [place] [address], [place] [address] Jan, [facility] [address] [id number] [address] [place] [address], [place] [address] Dec, [facility] [address] [id number] [address] [place] [address], [place] [address] Dec, [facility] [address] [id number] [address] [place] [address], [place] [address] Nov, [facility] [address] [id number] [address] [place] [address], [place] [address] Nov, [facility] [address] [id number] [address] [place] [address], [place] [address] Nov, [facility] [address] [id number] [address] [place] [address], [place] [address] Nov, [facility] [address] [id number] [address] [place] [address], [place] [address] Nov, [facility] [address] [id number] [address] [place] [address], [place] [address] Nov, [facility] [address] [id number] [address] [place] [address], [place] [address] Nov, [facility] [address] [id number] [address] [place] [address], [place] [address] Nov, [facility] [address] [id number] [address] [place] [address], [place] [address] Nov, [facility] [address] [id number] [address] [place] [address], [place] [address] Nov, [facility] [address] [id number] [address] [place] [address], [place] [address] Nov, [facility] [address] [id number] [address] [place] [address], [place] [address] Nov, [facility] [address] [id number] [address] [place] [address], [place] [address] Nov, [facility] [address] [id number] [address] [place] [address], [place] [address] Nov, [facility] [address] [id number] [address] [place] [id number] Nov, [facility] [address] [id number] [address] [place] [address] Oct, [facility] [address] [id number] [address] [place] [address] Oct, [facility] [address] [id number] [address] [place] [address] Oct, [facility] [address] [id number] [address] [place] [address] Oct, [facility] [address] [id number] [address] [place] [address] Oct, [facility] [address] [id number] [address] [place] [address] Oct, [facility] [address] [id number] [address] [place] [address] Oct, [facility] [address] [id number] [address] [place] [address] Oct, [facility] [address] [id number] [address] [place] [address] Oct, [facility] [address] [id number] [address] [place] [address] Aug, [facility] [address] [id number] [address] [place] [address] Aug, IMMUNIZATIONS No Known Immunizations SOCIAL HISTORY Never Assessed REASON FOR VISIT [facility] [place] PLAN OF CARE VITAL SIGNS MEDICATIONS No Known Medications RESULTS No Results PROCEDURES No Known procedures INSTRUCTIONS MEDICATIONS ADMINISTERED No Known Medications MEDICAL (GENERAL) HISTORY Type Description Date Medical History hypertension Medical History asthma Medical History Arthritis Medical History Hypoglycemia Medical History Heart Cath 11/05/2013 Medical History herniated disc--Seen by Dr. Troy Michelle pain specialist in [place], [place] Medical History Chronic low back pain [...]
--- OUTSIDE RECORDS SUMMARY | 2020-06-19 02:16 | XMS REPORT ---
Author Author Mahsa COOK Organization [facility] Address [address] [place] [address] Care Team Providers Care Smash Hand Name Role Phone ROSE COOK Unavailable PROBLEMS Type Condition ICD9-CM Code HRP27-DO Code Onset Dates Condition S tatus SNOMED Code Problem Chronic prescription opiate use Z79.899 Active 434319610 Problem Allergic rhinitis J30.9 Active 61 757579 Problem Bilateral low back pain, with sciatica presence unspecifie d M54.5 Active 128252084 Problem Cannabis abuse F12.10 Active 40255 009 Problem CKD (chronic kidney disease) stage 3, GFR 30-59 ml/min N18.3 Active 252842239 Problem GERD (gastroesophageal reflux disease) K21.9 Active 623690349 Problem Fibromyalgia M79.7 Active 1949138 7 Problem Drug induced constipation K59.03 Acti ve [id number] Problem Chronic obstructive pulmonary disease, unspecified COPD ty pe J44.9 Active 73799506 Problem Primary insomnia F51.01 Active 193 227239 Problem Anxiety F41.9 Active 74395563 Problem Other constipation K59.09 Active 1 [id number] Problem Chronic pain syndrome G89.4 Active 159361291 Problem Major depressive disorder, recurrent episode, un specified severity F33.9 Active 49977236 Problem Hyperlipidemia, unspecified hyperlipidemia E78.5 Active 70230750 Problem Essential hypertension I10 Active 49489618 Problem B12 deficiency E53.8 Active 07146 4004 Problem Atherosclerosis of agdaagux co ronary artery of agdaagux heart without angina pectoris I25.10 Active 9992799451549 Problem Chronic prescription benzodiazepine use Z79.899 Active 415802512 ALLERGIES No Information ENCOUNTERS Encounter Location Date Diagnosis [facility] [address] [facility] [id number] [address] [address] 13 Oct, 2018 Chronic pain syndrome G89.4 and Anxiety F41.9 [facility] [address] [address] 12 Oct, 2018 Elevated platelet count R79. [address] [address] Oct, CKD (chronic kidney disease) stage 3, GFR 30-59 ml/min N18.3 ; Other chest pain R07.89 ; Acute midline thoracic back pain M54.6 ; Essential hypertension I10 and History of osteoporosis Z87.[address] [address] 29 Sep, 2018 Chronic pain syndrome G89.[address] [address] 16 Sep, [address] [address] Sep, Anxiety F41.9 and Chronic pa in syndrome G89.[address] [address] 18 Aug, 2018 Chronic pain syndrome G89.4 and Anxiety F41.[address] [address] Aug, [address] [address] Aug, Cannabis abuse F12.10 and Co ntrolled substance agreement terminated Z91.[address] [address] 28 Jul, 2018 Chronic pain syndrome G89.4 ; Bilateral low back pain, with sciatica presence unspecified M54.5 ; Chronic prescription opiate use Z79.899 ; Essential hypertension I10 ; Hyperlipidemia, unspecified hyperlipidemia E78.5 ; CKD (chronic kidney disease) stage 3, GFR 30-59 ml/min N18.3 and Allergic rhinitis J30.[address] [address] 20 Jul, 2018 Chronic pain syndrome G89.4 and Anxiety F41.9 [facility] [address] [place] [id number] [address] [place] [address] Jul, Screening for breast cancer Z12.31 and Major depressive disorder, recurrent episode, unspecified severity F33.9 [facility] [address] [facility] [id number] [address] [place] [address] Jun, Chronic pain syndrome G89.4 and Anxiety F41.9 [place] [address] [place] [id number] [address] [place] [address] May, Chronic pain syndrome G89.4 and Anxiety F41.9 [place] [address] [place] [id number] [place] [address] Apr, Anxiety F41.9 [place] [address] [place] [id number] [place] [address] Apr, Chronic prescription opiate use Z79.899 ; Chronic pain syndrome G89.4 ; Essential hypertension I10 ; Allergic rhinitis J30.9 and CKD (chronic kidney disease) stage 3, GFR 30-59 ml/min N18.3 [place] [address] [address] Apr, [place] [address] [place] [id number] [place] [address] March, Anxiety F41.9 and Chronic pa in syndrome G89.4 [place] [address] [place] [id number] [address] [place] [address] March, CKD (chronic kidney disease) stage 3, GFR 30-59 ml/min N18.3 ; B12 deficiency E53.8 and Hyperlipidemia, unspecified hyperlipidemia E78.5 [place] [address] [place] [id number] [address] [place] [address] March, Anxiety F41.9 and Chronic pa in syndrome G89.4 [place] [address] [place] [id number] [address] [place] [address] Feb, Anxiety F41.9 and Chronic pa in syndrome G89.4 [place] [id number] [place] [id number] [address] [place] [address] 30 Jan, 2018 B12 deficiency E53.8 [place] [address] [place] [id number] [address] [place] [address] Jan, [place] [address] [address] Jan, Anxiety F41.9 ; Chronic pain syndrome G89.4 and Essential hypertension I10 [place] [address] [address] Jan, CKD (chronic kidney disease) stage 3, [...] Subacromial bursitis of right shoulder joint M75.51 [place] [address] [address] Dec, Essential hypertension I10 [place] [address] [address] Dec, Chronic pain syndrome G89.4 [place] [address] [address] Dec, Chronic pain syndrome G89.4 [place] [address] [place] [id number] [address] [place] [address] Nov, [place] [address] [address] Nov, Chronic pain syndrome G89.4 and Anxiety F41.9 [place] [address] [address] Oct, Chronic pain syndrome G89.4 ; Other constipation K59.09 and Chronic prescription opiate use Z79.899 [place] [address] [address] Oct, Chronic pain syndrome G89.4 and Anxiety F41.9 [place] [address] [address] Sep, Essential hypertension I10 [place] [address] [address] Sep, Chronic pain syndrome G89.4 and Anxiety F41.[address] [address] Aug, Chronic pain syndrome G89.4 and Anxiety F41.9 [place] [address] [address] Jul, Essential hypertension I10 [place] [address] [address] Jul, Chronic obstructive pulmonar y disease, unspecified COPD type J44.[address] [address] Jul, Chronic pain syndrome G89.4 and Anxiety F41.9 [place] [address] [address] 13 Jul, 2017 Chronic pain syndrome G89.4 ; Essential hypertension I10 ; Fibromyalgia M79.7 ; CKD (chronic kidney disease) stage 3, GFR 30-59 ml/min N18.3 ; Subacromial bursitis, right M75.51 and Goals of care, co unseling/discussion Z71.89 [place] [address] [address] Jun, Chronic pain syndrome G89.4 and Anxiety F41.9 [place] [address] [address] May, Chronic pain syndrome G89.4 and Anxiety F41.9 [facility] [address] [id number] [address] [place] [address] Apr, Chronic pain syndrome G89.4 and Anxiety F41.9 [facility] [address] [facility] [id number] [address] [place] [address] Apr, Drug induced constipation K5 9.03 ; Chronic pain syndrome G89.4 and CKD (chronic kidney disease) stage 3, GFR 30-59 ml/min N18.3 [facility] [address] [id number] [address] [place] [address] Apr, Chronic pain syndrome G89.4 and Anxiety F41.9 [place] [address] [facility] [id number] [address] [place] [address] March, Chronic pain syndrome G89.4 and Anxiety F41.9 [place] [address] [facility] [id number] [address] [place] [address] March, Decreased GFR R94.4 [facility] [address] [facility] [id number] [address] [place] [address] Feb, [facility] [address] [facility] [id number] [address] [place] [address] Feb, Chronic pain syndrome G89.4 and Anxiety F41.9 [facility] [address] [facility] [id number] [address] [place] [address] Jan, Decreased GFR R94.4 [facility] [address] [facility] [id number] [address] [place] [address] Jan, Decreased GFR R94.4 [place] [address] [facility] [id number] [address] [place] [address] Jan, Allergic rhinitis J30.9 ; Es sential hypertension I10 ; Major depressive disorder, recurrent episode, unspecified severity F33.9 and Primary insomnia F51.01 [facility] [address] [facility] [id number] [address] [place] [address] Jan, Acute right-sided thoracic b ack pain M54.6 ; Subacromial bursitis of right shoulder joint M75.51 ; Chronic pain syndrome G89.4 and Anxiety F41.9 [facility] [address] [place] [id number] [place] [address] Jan, Decreased GFR R94.4 [place] [address] [place] [id number] [place] [address] Dec, Decreased GFR R94.4 [place] [address] [place] [id number] [place] [address] Dec, Decreased GFR R94.4 [place] [address] [place] [id number] [place] [address] Dec, Decreased GFR R94.4 [place] [address] [address] Dec, Decreased GFR R94.4 [place] [address] [place] [id number] [place] [address] Dec, Anxiety F41.9 and Bilateral low back pain, with sciatica presence unspecified M54.5 [place] [address] [address] Dec, Thrombocytosis D47.3 ; Hyper lipidemia, unspecified hyperlipidemia E78.5 ; Need for hepatitis C screening test Z11.59 and B12 deficiency E53.8 [place] [address] [address] Nov, Need for hepatitis C screeni ng test Z11.59 [place] [address] [address] Nov, Anxiety F41.9 and Bilateral low back pain, with sciatica presence unspecified M54.5 [place] [address] [address] Oct, Bilateral low back pain, wit h sciatica presence unspecified M54.5 ; Chronic prescription opiate use Z79.899 ; Anxiety F41.9 ; Essential hypertension I10 ; Hyperlipidemia, unspecified hyperlipidemia E78.5 ; Health care maintenance Z00.00 and Thrombocytosis D47.3 [facility] [address] [address] Sep, [facility] [address] [address] Sep, [place] [address] [address] Aug, [address] [address] Jul, B12 deficiency E53.8 [place] [address] [address] Jul, [address] [address] Jul, Essential hypertension I10 ; Chronic pain syndrome G89.4 ; Anxiety F41.9 ; Screening for breast cancer Z12.39 ; Atherosclerosis of agdaagux coronary artery of agdaagux heart without angina pectoris I25.10 ; Major depressive disorder, recurrent episode, unspecified severity F33.9 ; Primary insomnia F51.01 and Allergic rhinitis J30.[address] [address] Jun, [facility] [address] [address] Jun, Leg wound, right, initial en counter S81.801A and Encounter for immunization Z23 [address] [address] Jun, Open wound of right ear, uns pecified open wound type, initial encounter S01.301A [address] [address] May, B12 deficiency E53.8 [facility] [address] [facility] [id number] [address] [place] [address] May, [facility] [address] [facility] [id number] [address] [place] [address] May, [facility] [address] [facility] [id number] [address] [place] [address] May, Chronic pain syndrome G89.4 ; Chronic prescription opiate use Z79.899 ; Allergic rhinitis J30.9 ; Essential hypertension I10 and Non-healing skin lesion L98.9 [facility] [address] [facility] [id number] [address] [place] [address] Apr, [facility] [address] [facility] [id number] [address] [place] [address] March, [facility] [address] [facility] [id number] [address] [place] [address] Feb, [facility] [address] [facility] [id number] [address] [place] [address] Feb, [facility] [address] [facility] [id number] [address] [place] [address] Feb, Chronic pain syndrome G89.4 ; Anxiety [...] J44.9 [facility] [address] [facility] [id number] [address] [place] [address] Jan, [facility] [address] [place] [id number] [address] [place] [address] Jan, Essential hypertension I10 [facility] [address] [place] [id number] [address] [place] [address] Jan, [facility] [address] [address] Jan, [facility] [address] [address] Jan, [facility] [address] [address] Dec, [facility] [address] [address] Dec, Essential hypertension I10 [place] [address] [address] Dec, [place] [address] [address] Dec, B12 deficiency E53.8 and Ess ential hypertension I10 [place] [address] [address] Dec, [facility] [address] [address] Nov, Right shoulder pain M25.511 [place] [address] [address] Nov, Right shoulder pain M25.511 [place] [address] [address] Nov, Essential hypertension I10 a nd B12 deficiency E53.8 [place] [address] [address] 14 Nov, 2015 Major depressive disorder, r ecurrent episode, unspecified severity F33.9 ; Anxiety F41.9 ; Chronic pain syndrome G89.4 ; Essential hypertension I10 ; Hyperlipidemia, unspecified hyperlipidemia E78.5 ; Chronic prescription opiate use Z79.899 ; Allergic rhinitis J30.9 ; B12 deficiency E53.8 and Right shoulder pain M25.511 [place] [address] [address] Oct, [facility] [address] [id number] [address] [place] [address] Oct, [facility] [address] [id number] [address] [place] [address] Sep, [facility] [address] [facility] [id number] [address] [place] [address] Sep, [facility] [address] [id number] [address] [place] [address] Aug, [facility] [address] [id number] [address] [place] [address] Aug, [facility] [address] [facility] [id number] [address] [place] [address] Aug, [facility] [address] [facility] [id number] [address] [place] [address] Aug, Other constipation K59.09 ; Hyperlipidemia, unspecified hyperlipidemia E78.5 ; Essential hypertension I10 ; Primary insomnia F51.01 ; Anxiety F41.9 ; Chronic pain syndrome G89.4 ; Right shoulder pain M25.511 and Acute cystitis without hematuria N30.00 [facility] [address] [facility] [id number] [address] [place] [address] 16 Jul, 2015 [facility] [address] [facility] [id number] [address] [place] [address] Jul, [facility] [address] [id number] [address] [place] [address] Jun, [facility] [address] [facility] [id number] [address] [place] [address] Jun, [facility] [address] [id number] [address] [place] [address] Jun, [facility] [address] [facility] [id number] [address] [place] [address] May, [facility] [address] [id number] [address] [place] [address] May, Other chronic pain 338.29 ; Hypertension 401.9 and Constipation due to opioid therapy 564.09 [facility] [address] [id number] [address] [place] [address] 17 May, 2015 [facility] [address] [id number] [address] [place] [address] 15 May, 2015 [facility] [address] [id number] [address] [place] [address] 17 Apr, 2015 [facility] [address] [id number] [address] [place] [address] 17 Apr, 2015 Unspecified essential hypert ension 401.9 [facility] [address] [id number] [address] [place] [address] 16 Apr, 2015 [facility] [address] [id number] [address] [place] [address] Apr, [facility] [address] [id number] [address] [place] [address] Apr, [facility] [address] [id number] [address] [place] [address] Apr, [facility] [address] [id number] [address] [place] [address] Apr, [facility] [address] [id number] [address] [place] [phone] Apr, [facility] [address] [id number] [address] [place] [address] March, Unspecified essential hypert ension 401.9 [facility] [address] [id number] [address] [place] [phone] March, [facility] [address] [id number] [address] [place] [phone] March, [facility] [address] [id number] [address] [place] [address] Feb, [facility] [address] [id number] [address] [place] [address], [place] [address] 13 Feb, 2015 [facility] [address] [id number] [address] [place] [address], [place] [address] 23 Jan, 2015 [facility] [address] [id number] [address] [place] [address], [place] [address] Jan, [facility] [address] [id number] [address] [place] [address], [place] [address] Jan, [facility] [address] [id number] [address] [place] [address], [place] [address] Jan, [facility] [address] [id number] [address] [place] [address], [place] [address] Jan, [facility] [address] [id number] [address] [place] [address], [place] [address] Jan, [facility] [address] [id number] [address] [place] [address], [place] [address] Jan, [facility] [address] [id number] [address] [place] [address], [place] [address] 16 Dec, 2014 [facility] [address] [id number] [address] [place] [address], [place] [address] 16 Dec, 2014 [facility] [address] [id number] [address] [place] [address], [place] [address] Dec, [facility] [address] [id number] [address] [place] [address], [place] [address] Nov, [facility] [address] [id number] [address] [place] [address], [place] [address] Nov, [facility] [address] [id number] [address] [place] [address], [place] [address] Oct, [facility] [address] [id number] [address] [place] [address], [place] [address] Oct, [facility] [address] [id number] [address] [place] [address], [place] [address] Oct, [facility] [address] [id number] [address] [place] [address], [place] [address] Oct, [facility] [address] [id number] [address] [place] [address], [place] [address] Oct, [facility] [address] [id number] [address] [place] [address], [place] [address] Oct, [facility] [address] [id number] [address] [place] [address], [place] [address] Oct, [facility] [address] [id number] [address] [place] [address], [place] [address] Oct, [facility] [address] [id number] [address] [place] [address], [place] [address] Sep, [facility] [address] [id number] [address] [place] [address], [place] [address] Sep, [facility] [address] [id number] [address] [place] [address], [place] [address] Sep, [facility] [address] [id number] [address] [place] [address], [place] [address] Sep, [facility] [address] [id number] [address] [place] [address], [place] [address] Sep, [facility] [address] [id number] [address] [place] [address], [place] [address] Sep, [facility] [address] [id number] [address] [place] [address], [place] [address] Aug, [facility] [address] [id number] [address] [place] [address], [place] [address] Aug, [facility] [address] [id number] [address] [place] [address], [place] [address] Aug, [facility] [address] [id number] [address] [place] [address], [place] [address] Aug, [facility] [address] [id number] [address] [place] [address], [place] [address] Aug, [facility] [address] [id number] [address] [place] [address], [place] [address] Aug, [facility] [address] [id number] [address] [place] [address], [place] [address] Aug, [facility] [address] [id number] [address] [place] [address], [place] [address] Aug, [facility] [address] [id number] [address] [place] [address], [place] [address] Aug, [facility] [address] [id number] [address] [place] [address], [place] [address] Aug, [facility] [address] [id number] [address] [place] [address], [place] [address] Jul, [facility] [address] [id number] [address] [place] [address], [place] [address] Jul, [facility] [address] [id number] [address] [place] [address], [place] [address] Jul, [facility] [address] [id number] [address] [place] [address], [place] [address] Jul, [facility] [address] [id number] [address] [place] [address], [place] [address] Jul, [facility] [address] [id number] [address] [place] [address], [place] [address] Jul, [facility] [address] [id number] [address] [place] [address], [place] [address] Jun, [facility] [address] [id number] [address] [place] [address], [place] [address] Jun, [facility] [address] [id number] [address] [place] [address], [place] [address] Jun, [facility] [address] [id number] [address] [place] [address], [place] [address] Jun, [facility] [address] [id number] [facility] [place] [address] Jun, [facility] [address] [id number] [address] [place] [address], [place] [address] Jun, [facility] [address] [id number] [address] [place] [address], [place] [address] May, [facility] [address] [id number] [address] [place] [address], [place] [address] May, [facility] [address] [id number] [address] [place] [address], [place] [address] May, [facility] [address] [id number] [address] [place] [address], [place] [address] May, [facility] [address] [id number] [address] [place] [address], [place] [address] May, [facility] [address] [id number] [address] [place] [address], [place] [address] Apr, [facility] [address] [id number] [address] [place] [address], [place] [address] Apr, [facility] [facility] [address] [id number] [address] [place] [address], [place] [address] Apr, [facility] [address] [id number] [address] [place] [address], [place] [address] Apr, [facility] [address] [id number] [address] [place] [address], [place] [address] March, [facility] [address] [id number] [address] [place] [address], [place] [address] March, [facility] [address] [id number] [address] [place] [address], [place] [address] March, [facility] [address] [id number] [address] [place] [address], [place] [address] March, [facility] [address] [id number] [facility] [place] [address] March, [facility] [address] [id number] [address] [place] [address], [place] [address] March, [facility] [address] [id number] [address] [place] [address], [place] [address] Feb, [facility] [address] [id number] [address] [place] [address], [place] [address] Feb, [facility] [address] [id number] [address] [place] [address], [place] [address] Feb, [facility] [address] [id number] [address] [place] [address], [place] [address] Feb, [facility] [address] [id number] [address] [place] [address], [place] [address] Feb, [facility] [address] [id number] [address] [place] [address], [place] [address] Feb, [facility] [address] [id number] [address] [place] [address], [place] [address] Feb, [facility] [address] [id number] [address] [place] [address], [place] [address] Feb, [facility] [address] [id number] [address] [place] [address], [place] [address] Jan, [facility] [address] [id number] [address] [place] [address], [place] [address] Jan, [facility] [address] [id number] [address] [place] [address], [place] [address] Jan, [facility] [address] [id number] [address] [place] [address], [place] [address] Jan, [facility] [address] [id number] [address] [place] [address], [place] [address] Jan, [facility] [address] [id number] [address] [place] [address], [place] [address] Jan, [facility] [address] [id number] [facility] [place] [address] Dec, [facility] [address] [id number] [address] [place] [address], [place] [address] Dec, [facility] [address] [id number] [facility] [place] [address] Nov, [facility] [address] [id number] [address] [place] [address], [place] [address] Nov, [facility] [address] [id number] [address] [place] [address], [place] [address] Nov, [facility] [address] [id number] [address] [place] [address], [place] [address] Nov, [facility] [address] [id number] [address] [place] [address], [place] [address] Nov, [facility] [address] [id number] [address] [place] [address], [place] [address] Nov, [facility] [address] [id number] [address] [place] [address], [place] [address] Nov, [facility] [address] [id number] [address] [place] [address], [place] [address] Nov, [facility] [address] [id number] [address] [place] [address], [place] [address] Nov, [facility] [address] [id number] [address] [place] [address], [place] [address] Nov, [facility] [address] [id number] [address] [place] [address], [place] [address] Nov, [facility] [address] [id number] [address] [place] [address], [place] [address] Nov, [facility] [address] [id number] [address] [place] [address], [place] [address] Nov, [facility] [address] [id number] [address] [place] [id number] Nov, [facility] [address] [id number] [address] [place] [id number] Nov, [facility] [address] [id number] [address] [place] [id number] Oct, [facility] [address] [id number] [address] [place] [id number] Oct, [facility] [address] [id number] [address] [place] [id number] Oct, [facility] [address] [id number] [address] [place] [id number] Oct, [facility] [address] [id number] [address] [place] [id number] Oct, [facility] [address] [id number] [address] [place] [id number] Oct, [facility] [address] [id number] [address] [place] [phone] Oct, [facility] [address] [id number] [address] [place] [phone] Oct, [facility] [address] [id number] [address] [place] [phone] Oct, [facility] [address] [id number] [address] [place] [phone] Aug, [facility] [address] [id number] [address] [place] [phone] Aug, IMMUNIZATIONS No Known Immunizations SOCIAL HISTORY Never Assessed REASON FOR VISIT Controlled Med Refill PLAN OF CARE VITAL SIGNS MEDICATIONS Medication Instructions Dosage Frequency Start Date End Date Duration S servandous Clonazepam 0.5 mg Orally twice a day 1 tablet as needed for anxiety 12h 26 Feb, 2016 28 days Active Oxycodone HCl 5 MG Orally 2 times a day 1 tablet as needed 12h 1 4 Oct, 2018 14 days Active Clonazepam 1 mg Orally Once a day 1 tablet at bedtime 24h 25 Sep 2014 28 days Active RESULTS No Results PROCEDURES No Known procedures INSTRUCTIONS MEDICATIONS ADMINISTERED No Known Medications MEDICAL (GENERAL) HISTORY Type Description Date Medical History hypertension Medical History asthma Medical History Arthritis Medical History Hypoglycemia Medical History Heart Cath 11/05/2013 Medical History herniated disc--Seen by Dr. Troy Michelle pain specialist in [place], [place] Medical History Chronic low back pain [...]
--- OUTSIDE RECORDS SUMMARY | 2020-06-19 02:16 | XMS REPORT ---
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 Name Role Phone ARMANDONONAASHVIN Unavailable PROBLEMS Type Condition ICD9-CM Code [id number] Code Onset Dates Condition S tatus SNOMED Code Problem Chronic prescription opiate use Z79.899 Active 015405867 Problem Allergic rhinitis J30.9 Active 61 057508 Problem Bilateral low back pain, with sciatica presence unspecifie d M54.5 Active 231852431 Problem Cannabis abuse F12.10 Active 47339 009 Problem CKD (chronic kidney disease) stage 3, GFR 30-59 ml/min N18.3 Active 382984167 Problem GERD (gastroesophageal reflux disease) K21.9 Active 905180792 Problem Fibromyalgia M79.7 Active 9532637 7 Problem Drug induced constipation K59.03 Acti ve [id number] Problem Chronic obstructive pulmonary disease, unspecified COPD ty pe J44.9 Active 58245339 Problem Primary insomnia F51.01 Active 193 481805 Problem Anxiety F41.9 Active 57671956 Problem Other constipation K59.09 Active 1 [id number] Problem Chronic pain syndrome G89.4 Active 207376587 Problem Major depressive disorder, recurrent episode, un specified severity F33.9 Active 20177000 Problem Hyperlipidemia, unspecified hyperlipidemia E78.5 Active 84926504 Problem Essential hypertension I10 Active 43809328 Problem B12 deficiency E53.8 Active 20615 4004 Problem Atherosclerosis of [place] co ronary artery of [place] heart without angina pectoris I25.10 Active 5125498941259 Problem Chronic prescription benzodiazepine use Z79.899 Active 189665369 ALLERGIES Substance Reaction Event Type Date Status Motrin stomach upset Drug Allergy Oct, Active Lyrica throat swelling Drug Allergy Oct, Active Flagyl throat swelling Drug Allergy Oct, Active Lisinopril 20 Mg Tablet Headache Non Drug Allergy Oct, Active ENCOUNTERS Encounter Location Date Diagnosis [place] [address] [address] 12 Oct, 2018 Elevated platelet count R79. 89 [place] [address] [address] 10 Oct, 2018 CKD (chronic kidney disease) stage 3, GFR 30-59 ml/min N18.3 ; Other chest pain R07.89 ; Acute midline thoracic back pain M54.6 ; Essential hypertension I10 and History of osteoporosis Z87.39 [place] [address] [address] 29 Sep, 2018 Chronic pain syndrome G89.4 [place] [address] [address] 16 Sep, 2018 [place] [address] [address] 15 Sep, 2018 Anxiety F41.9 and Chronic pa in syndrome G89.4 [place] [address] [address] 18 Aug, 2018 Chronic pain syndrome G89.4 and Anxiety F41.9 [place] [address] [address] 04 Aug, 2018 [place] [address] [address] 03 Aug, 2018 Cannabis abuse F12.10 and Co ntrolled substance agreement terminated Z91.14 [place] [address] [address] 28 Jul, 2018 Chronic pain syndrome G89.4 ; Bilateral low back pain, with sciatica presence unspecified M54.5 ; Chronic prescription opiate use Z79.899 ; Essential hypertension I10 ; Hyperlipidemia, unspecified hyperlipidemia E78.5 ; CKD (chronic kidney disease) stage 3, GFR 30-59 ml/min N18.3 and Allergic rhinitis J30.9 [place] [address] [address] Jul, Chronic pain syndrome G89.4 and Anxiety F41.9 [place] [address] [place] [id number] [address] [place] [address] Jul, Screening for breast cancer Z12.31 and Major depressive disorder, recurrent episode, unspecified severity F33.9 [place] [address] [place] [id number] [address] [place] [address] Jun, Chronic pain syndrome G89.4 and Anxiety F41.9 [place] [address] [place] [id number] [address] [place] [address] May, Chronic pain syndrome G89.4 and Anxiety F41.9 [place] [address] [place] [id number] [address] [place] [address] Apr, Anxiety F41.9 [place] [address] [place] [id number] [place] [address] Apr, Chronic prescription opiate use Z79.899 ; Chronic pain syndrome G89.4 ; Essential hypertension I10 ; Allergic rhinitis J30.9 and CKD (chronic kidney disease) stage 3, GFR 30-59 ml/min N18.3 [place] [address] [place] [id number] [address] [place] [address] Apr, [place] [address] [place] [id number] [address] [place] [address] March, Anxiety F41.9 and Chronic pa in syndrome G89.4 [place] [address] [place] [id number] [address] [place] [address] March, CKD (chronic kidney disease) stage 3, GFR 30-59 ml/min N18.3 ; B12 deficiency E53.8 and Hyperlipidemia, unspecified hyperlipidemia E78.5 [place] [address] [place] [id number] [address] [place] [address] March, Anxiety F41.9 and Chronic pa in syndrome G89.4 [place] [address] [place] [id number] [address] [place] [address] Feb, Anxiety F41.9 and Chronic pa in syndrome G89.4 [place] [address] [place] [id number] [address] [place] [address] Jan, B12 deficiency E53.8 [place] [address] [place] [id number] [address] [place] [address] Jan, [place] [address] [address] Jan, Anxiety F41.9 ; Chronic pain syndrome G89.4 and Essential hypertension I10 [place] [address] [address] Jan, CKD (chronic kidney disease) stage 3, [...] Subacromial bursitis of right shoulder joint M75.51 [place] [address] [address] 28 Dec, 2017 Essential hypertension I10 [place] [address] [address] 15 Dec, 2017 Chronic pain syndrome G89.4 [place] [address] [place] [id number] [address] [place] [address] Dec, Chronic pain syndrome G89.4 [place] [address] [address] Nov, [place] [address] [place] [id number] [place] [address] Nov, Chronic pain syndrome G89.4 and Anxiety F41.9 [place] [address] [place] [address] Oct, Chronic pain syndrome G89.4 ; Other constipation K59.09 and Chronic prescription opiate use Z79.899 [place] [address] [address] Oct, Chronic pain syndrome G89.4 and Anxiety F41.9 [place] [address] [address] Sep, Essential hypertension I10 [place] [address] [address] Sep, Chronic pain syndrome G89.4 and Anxiety F41.[address] [address] Aug, Chronic pain syndrome G89.4 and Anxiety F41.9 [place] [address] [address] 28 Jul, 2017 Essential hypertension I10 [place] [address] [address] 22 Jul, 2017 Chronic obstructive pulmonar y disease, unspecified COPD type J44.9 [place] [address] [address] 21 Jul, 2017 Chronic pain syndrome G89.4 and Anxiety F41.[address] [address] 13 Jul, 2017 Chronic pain syndrome G89.4 ; Essential hypertension I10 ; Fibromyalgia M79.7 ; CKD (chronic kidney disease) stage 3, GFR 30-59 ml/min N18.3 ; Subacromial bursitis, right M75.51 and Goals of care, co unseling/discussion Z71.89 [place] [address] [address] Jun, Chronic pain syndrome G89.4 and Anxiety F41.[address] [address] May, Chronic pain syndrome G89.4 and Anxiety F41.9 [facility] [address] [facility] [id number] [address] [place] [address] Apr, Chronic pain syndrome G89.4 and Anxiety F41.9 [facility] [address] [place] [id number] [address] [place] [address] Apr, Drug induced constipation K5 9.03 ; Chronic pain syndrome G89.4 and CKD (chronic kidney disease) stage 3, GFR 30-59 ml/min N18.3 [facility] [address] [id number] [address] [place] [address] Apr, Chronic pain syndrome G89.4 and Anxiety F41.9 [place] [address] [facility] [id number] [address] [place] [address] March, Chronic pain syndrome G89.4 and Anxiety F41.9 [facility] [address] [facility] [id number] [address] [place] [address] March, Decreased GFR R94.4 [facility] [address] [facility] [id number] [address] [place] [address] Feb, [facility] [address] [facility] [id number] [address] [place] [address] Feb, Chronic pain syndrome G89.4 and Anxiety F41.9 [facility] [address] [facility] [id number] [address] [place] [address] Jan, Decreased GFR R94.4 [facility] [address] [facility] [id number] [address] [place] [address] Jan, Decreased GFR R94.4 [facility] [address] [facility] [id number] [address] [place] [address] Jan, Allergic rhinitis J30.9 ; Es sential hypertension I10 ; Major depressive disorder, recurrent episode, unspecified severity F33.9 and Primary insomnia F51.01 [facility] [address] [facility] [id number] [address] [place] [address] Jan, Acute right-sided thoracic b ack pain M54.6 ; Subacromial bursitis of right shoulder joint M75.51 ; Chronic pain syndrome G89.4 and Anxiety F41.9 [facility] [address] [facility] [id number] [address] [place] [address] Jan, Decreased GFR R94.4 [facility] [address] [facility] [id number] [address] [place] [address] Dec, Decreased GFR R94.4 [place] [address] [facility] [id number] [address] [place] [address] Dec, Decreased GFR R94.4 [place] [address] [facility] [id number] [address] [place] [address] Dec, Decreased GFR R94.4 [place] [address] [place] [id number] [address] [place] [address] Dec, Decreased GFR R94.4 [place] [address] [facility] [id number] [address] [place] [address] Dec, Anxiety F41.9 and Bilateral low back pain, with sciatica presence unspecified M54.5 [place] [address] [place] [id number] [address] [place] [address] Dec, Thrombocytosis D47.3 ; Hyper lipidemia, unspecified hyperlipidemia E78.5 ; Need for hepatitis C screening test Z11.59 and B12 deficiency E53.8 [place] [address] [facility] [id number] [address] [place] [address] Nov, Need for hepatitis C screeni ng test Z11.59 [place] [address] [place] [id number] [address] [place] [address] Nov, Anxiety F41.9 and Bilateral low back pain, with sciatica presence unspecified M54.5 [place] [address] [place] [id number] [address] [place] [address] Oct, Bilateral low back pain, wit h sciatica presence unspecified M54.5 ; Chronic prescription opiate use Z79.899 ; Anxiety F41.9 ; Essential hypertension I10 ; Hyperlipidemia, unspecified hyperlipidemia E78.5 ; Health care maintenance Z00.00 and Thrombocytosis D47.3 [place] [address] [address] Sep, [facility] [address] [address] Sep, [place] [address] [address] Aug, [address] [address] Jul, B12 deficiency E53.[address] [address] Jul, [place] [address] [address] Jul, Essential hypertension I10 ; Chronic pain syndrome G89.4 ; Anxiety F41.9 ; Screening for breast cancer Z12.39 ; Atherosclerosis of [place] coronary artery of [place] heart without angina pectoris I25.10 ; Major depressive disorder, recurrent episode, unspecified severity F33.9 ; Primary insomnia F51.01 and Allergic rhinitis J30.9 [place] [id number] [place] [address] Jun, [facility] [address] [place] [id number] [address] [place] [address] Jun, Leg wound, right, initial en counter S81.801A and Encounter for immunization Z23 [address] [address] Jun, Open wound of right ear, uns pecified open wound type, initial encounter S01.301A [place] [address] [address] May, B12 deficiency E53.8 [facility] [address] [facility] [id number] [address] [place] [address] May, [facility] [address] [facility] [id number] [address] [place] [address] May, [facility] [address] [facility] [id number] [address] [place] [address] May, Chronic pain syndrome G89.4 ; Chronic prescription opiate use Z79.899 ; Allergic rhinitis J30.9 ; Essential hypertension I10 and Non-healing skin lesion L98.9 [facility] [address] [place] [id number] [place] [address] Apr, [facility] [address] [place] [id number] [place] [address] March, [facility] [id number] [place] [address] Feb, [facility] [address] [place] [id number] [address] [place] [address] Feb, [facility] [address] [address] Feb, Chronic pain syndrome G89.4 ; Anxiety F41.9 ; B12 deficiency E53.8 ; Allergic rhinitis J30.9 ; Fibromyalgia M79.7 ; Actinic keratosis L57.0 ; Skin rash R21 ; Open wound of right ear, unspecified open wound type, initial encounter S01.301A ; Subacromial bursitis, right M75.51 ; GERD (gastroesophageal reflux disease) K21.9 and Chronic obstructive pulmonary disease, unspecified COPD type J44.9 [facility] [address] [facility] [id number] [address] [place] [address] Jan, [facility] [address] [place] [id number] [address] [place] [address] Jan, Essential hypertension I10 [facility] [address] [place] [id number] [place] [address] Jan, [facility] [address] [facility] [id number] [address] [place] [address] Jan, [facility] [address] [address] Jan, [facility] [address] [address] Dec, [facility] [address] [address] Dec, Essential hypertension I10 [place] [address] [address] Dec, [place] [address] [address] Dec, B12 deficiency E53.8 and Ess ential hypertension I10 [place] [address] [address] Dec, [facility] [address] [address] Nov, Right shoulder pain M25.511 [place] [address] [address] Nov, Right shoulder pain M25.511 [place] [address] [address] 18 Nov, 2015 Essential hypertension I10 a nd B12 deficiency E53.8 [facility] [address] [facility] [id number] [address] [place] [address] 14 Nov, 2015 Major depressive disorder, r ecurrent episode, unspecified severity F33.9 ; Anxiety F41.9 ; Chronic pain syndrome G89.4 ; Essential hypertension I10 ; Hyperlipidemia, unspecified hyperlipidemia E78.5 ; Chronic prescription opiate use Z79.899 ; Allergic rhinitis J30.9 ; B12 deficiency E53.8 and Right shoulder pain M25.511 [place] [address] [place] [id number] [address] [place] [address] Oct, [facility] [address] [facility] [id number] [address] [place] [address] Oct, [facility] [address] [id number] [address] [place] [address] Sep, [facility] [address] [facility] [id number] [address] [place] [address] Sep, [facility] [address] [facility] [id number] [address] [place] [address] Aug, [facility] [address] [place] [id number] [address] [place] [address] Aug, [facility] [address] [place] [id number] [address] [place] [address] Aug, [facility] [address] [place] [id number] [address] [place] [address] Aug, Other constipation K59.09 ; Hyperlipidemia, unspecified hyperlipidemia E78.5 ; Essential hypertension I10 ; Primary insomnia F51.01 ; Anxiety F41.9 ; Chronic pain syndrome G89.4 ; Right shoulder pain M25.511 and Acute cystitis without hematuria N30.00 [facility] [address] [facility] [id number] [address] [place] [address] 16 Jul, 2015 [facility] [address] [facility] [id number] [address] [place] [address] Jul, [facility] [address] [facility] [id number] [address] [place] [address] Jun, [facility] [address] [facility] [id number] [address] [place] [address] Jun, [facility] [address] [facility] [id number] [address] [place] [address] Jun, [facility] [address] [facility] [id number] [address] [place] [address] May, [facility] [address] [id number] [address] [place] [address] May, Other chronic pain 338.29 ; Hypertension 401.9 and Constipation due to opioid therapy 564.09 [facility] [address] [id number] [address] [place] [address] 17 May, 2015 [facility] [address] [id number] [address] [place] [address] May, [facility] [address] [id number] [address] [place] [address] Apr, [facility] [address] [id number] [address] [place] [address] Apr, Unspecified essential hypert ension 401.9 [facility] [address] [id number] [address] [place] [address] Apr, [facility] [address] [id number] [address] [place] [address] Apr, [facility] [address] [id number] [address] [place] [address] Apr, [facility] [address] [id number] [address] [place] [address] Apr, [facility] [address] [id number] [address] [place] [address] Apr, [facility] [address] [id number] [address] [place] [address] Apr, [facility] [address] [id number] [address] [place] [address] March, Unspecified essential hypert ension 401.9 [facility] [address] [id number] [address] [place] [address] March, [facility] [address] [id number] [address] [place] [address] March, [facility] [address] [id number] [address] [place] [address], [place] [address] 14 Feb, 2015 [facility] [address] [id number] [address] [place] [address], [place] [address] 13 Feb, 2015 [facility] [address] [id number] [address] [place] [address], [place] [address] 23 Jan, 2015 [facility] [address] [id number] [address] [place] [address], [place] [address] Jan, [facility] [address] [id number] [address] [place] [address], [place] [address] 17 Jan, 2015 [facility] [address] [id number] [address] [place] [address], [place] [address] 17 Jan, 2015 [facility] [address] [id number] [address] [place] [address], [place] [address] Jan, [facility] [address] [id number] [address] [place] [address], [place] [address] Jan, [facility] [address] [id number] [address] [place] [address], [place] [address] Jan, [facility] [address] [id number] [address] [place] [address], [place] [address] 16 Dec, 2014 [facility] [address] [id number] [address] [place] [address], [place] [address] 16 Dec, 2014 [facility] [address] [id number] [address] [place] [address], [place] [address] Dec, [facility] [address] [id number] [address] [place] [address], [place] [address] Nov, [facility] [address] [id number] [address] [place] [address], [place] [address] Nov, [facility] [address] [id number] [address] [place] [address], [place] [address] Oct, [facility] [address] [id number] [address] [place] [address], [place] [address] Oct, [facility] [address] [id number] [address] [place] [address], [place] [address] Oct, [facility] [address] [id number] [address] [place] [address], [place] [address] Oct, [facility] [address] [id number] [address] [place] [address], [place] [address] Oct, [facility] [address] [id number] [address] [place] [address], [place] [address] Oct, [facility] [address] [id number] [address] [place] [address], [place] [address] Oct, [facility] [address] [id number] [address] [place] [address], [place] [address] Oct, [facility] [address] [id number] [address] [place] [address], [place] [address] Sep, [facility] [address] [id number] [address] [place] [address], [place] [address] Sep, [facility] [address] [id number] [address] [place] [address], [place] [address] Sep, [facility] [address] [id number] [address] [place] [address], [place] [address] Sep, [facility] [address] [id number] [address] [place] [address], [place] [id number] Sep, [facility] [address] [id number] [address] [place] [address], [place] [id number] Sep, [facility] [address] [id number] [address] [place] [address], [place] [id number] Aug, [facility] [address] [id number] [address] [place] [address], [place] [id number] Aug, [facility] [address] [id number] [address] [place] [address], [place] [id number] Aug, [facility] [address] [id number] [address] [place] [address], [place] [id number] Aug, [facility] [address] [id number] [address] [place] [address], [place] [id number] Aug, [facility] [address] [id number] [address] [place] [address], [place] [id number] Aug, [facility] [address] [id number] [address] [place] [address], [place] [id number] Aug, [facility] [address] [id number] [address] [place] [address], [place] [id number] Aug, [facility] [address] [id number] [address] [place] [address], [place] [id number] Aug, [facility] [address] [id number] [address] [place] [address], [place] [id number] Aug, [facility] [address] [id number] [address] [place] [address], [place] [id number] Jul, [facility] [address] [id number] [address] [place] [address], [place] [id number] Jul, [facility] [address] [id number] [address] [place] [address], [place] [id number] Jul, [facility] [address] [id number] [address] [place] [address], [place] [id number] Jul, [facility] [address] [id number] [address] [place] [address], [place] [address] Jul, [facility] [address] [id number] [address] [place] [address], [place] [address] Jul, [facility] [address] [id number] [address] [place] [address], [place] [address] Jun, [facility] [address] [id number] [address] [place] [address], [place] [address] Jun, [facility] [address] [id number] [address] [place] [address], [place] [address] Jun, [facility] [address] [id number] [facility] [place] [address] Jun, [facility] [address] [id number] [facility] [place] [address] Jun, [facility] [address] [id number] [facility] [place] [address] Jun, [facility] [address] [id number] [facility] [place] [address] May, [facility] [address] [id number] [address] [place] [address], [place] [address] May, [facility] [address] [id number] [address] [place] [address], [place] [address] May, [facility] [address] [id number] [address] [place] [address], [place] [address] May, [facility] [address] [id number] [address] [place] [address], [place] [address] May, [facility] [address] [id number] [address] [place] [address], [place] [address] Apr, [facility] [address] [id number] [address] [place] [address], [place] [address] Apr, [facility] [address] [id number] [address] [place] [address], [place] [address] Apr, [facility] [address] [id number] [address] [place] [address], [place] [address] Apr, [facility] [address] [id number] [address] [place] [address], [place] [address] March, [facility] [address] [id number] [address] [place] [address], [place] [address] March, [facility] [address] [id number] [address] [place] [address], [place] [address] March, [facility] [address] [id number] [address] [place] [address], [place] [address] March, [facility] [address] [id number] [facility] [place] [address] March, [facility] [address] [id number] [address] [place] [address], [place] [address] March, [facility] [address] [id number] [address] [place] [address], [place] [address] Feb, [facility] [address] [id number] [address] [place] [address], [place] [address] Feb, [facility] [address] [id number] [address] [place] [address], [place] [address] Feb, [facility] [address] [id number] [address] [place] [address], [place] [address] Feb, [facility] [address] [id number] [address] [place] [address], [place] [address] Feb, [facility] [address] [id number] [address] [place] [address], [place] [address] Feb, [facility] [address] [id number] [address] [place] [address], [place] [address] Feb, [facility] [address] [id number] [address] [place] [address], [place] [address] Feb, [facility] [address] [id number] [address] [place] [address], [place] [address] Jan, [facility] [address] [id number] [address] [place] [address], [place] [address] Jan, [facility] [address] [id number] [address] [place] [address], [place] [address] Jan, [facility] [address] [id number] [address] [place] [address], [place] [address] Jan, [facility] [address] [id number] [address] [place] [address], [place] [address] Jan, [facility] [address] [id number] [address] [place] [address], [place] [address] Jan, [facility] [address] [id number] [address] [place] [address], [place] [address] Dec, [facility] [address] [id number] [address] [place] [address], [place] [address] Dec, [facility] [address] [id number] [address] [place] [address], [place] [address] Nov, [facility] [address] [id number] [address] [place] [address], [place] [address] Nov, [facility] [address] [id number] [address] [place] [address], [place] [address] Nov, [facility] [address] [id number] [address] [place] [address], [place] [address] Nov, [facility] [address] [id number] [address] [place] [address], [place] [address] Nov, [facility] [address] [id number] [address] [place] [address], [place] [address] Nov, [facility] [address] [id number] [address] [place] [address], [place] [address] Nov, [facility] [address] [id number] [address] [place] [address], [place] [address] Nov, [facility] [address] [id number] [address] [place] [address], [place] [address] Nov, [facility] [address] [id number] [address] [place] [address], [place] [address] Nov, [facility] [address] [id number] [address] [place] [address], [place] [address] Nov, [facility] [address] [id number] [address] [place] [address], [place] [address] Nov, [facility] [address] [id number] [address] [place] [address], [place] [address] Nov, [facility] [address] [id number] [address] [place] [id number] Nov, [facility] [address] [id number] [address] [place] [id number] Nov, [facility] [address] [id number] [address] [place] [id number] Oct, [facility] [address] [id number] [address] [place] [id number] Oct, [facility] [address] [id number] [address] [place] [id number] Oct, [facility] [address] [id number] [address] [place] [id number] Oct, [facility] [address] [id number] [address] [place] [id number] Oct, [facility] [address] [id number] [address] [place] [id number] Oct, [facility] [address] [id number] [address] [place] [id number] Oct, [facility] [address] [id number] [address] [place] [id number] Oct, [facility] [address] [id number] [address] [place] [id number] Oct, [facility] [address] [id number] [address] [place] [id number] Aug, [facility] [address] [id number] [address] [place] [phone] Aug, IMMUNIZATIONS No Known Immunizations SOCIAL HISTORY Never Assessed REASON FOR VISIT Chronic Health. Pt c/o pain inbetween her shoulder blades.-[employer]woods PLAN OF CARE Activity Details Follow Up 3 Months Reason: Pending Test DEXA Future/Pending Procedure ROUTINE VENIPUNCTURE VITAL SIGNS Height 69 in 2018-11-04 Weight 185 lbs 2018-11-04 Temperature 98.6 degrees Fahrenheit 2018-11-04 Heart Rate 71 bpm 2018-11-04 Respiratory Rate 20 2018-11-04 Oximetry 95 % 2018-11-04 BMI 27.32 kg/m2 2018-11-04 Blood pressure systolic 152 mmHg 2018-11-04 Blood pressure diastolic 84 mmHg 2018-11-04 MEDICATIONS Medication Instructions Dosage Frequency Start Date End Date Duration S norberto Amitriptyline HCl 50 MG TAKE ONE TABLET BY MOUTH ONCE DAILY AT BEDTIME 30 Active Aspirin 81 mg take 1 tablet (81 mg) by oral route once daily Nov, Active Blood Pressure Monitor Automat - as directed Jan, 8 Not-Taking Clonazepam 0.5 mg Orally twice a day 1 tablet as needed for anxiety 12h Feb, 28 days Active Clonazepam 1 mg Orally Once a day 1 tablet at bedtime 24h Sep 28 days Active Nitroglycerin 0.4 mg 1 tablet by Subling ual route every 5 PRN chest pain; NTE 3 tabs in 15 min Jun, Not-Michael ing ProAir HFA 108 (90 Base) MCG/ACT Inhalation every 4 hrs 2 puffs as ne eded 4h Active Ipratropium-Albuterol 20-100 mcg/actuation Inhalation Four times a day as needed 1 puff Jun, Not-Taking Lisinopril-Hydrochlorothiazide 20-25 MG Orally Once a day 1 tablet 24h Active Fluoxetine HCl 10 MG TAKE ONE CAPSULE BY MOUTH IN THE MORNING 30 Active Benadryl 25 orally BID 2 tabs 12h Active Singulair 10 MG TAKE ONE TABLET BY MOUTH ONCE DAILY IN THE EVENI NG Not-Taking Multivitamin 1 Tablet 1 time per day Aug, Active Atenolol 50 MG Orally Once a day 1 tablet 24h 90 day s Active Oxycodone HCl 10 mg Orally 2 times a day 1 tablet as needed 12h 30 Sep, 2018 14 days Active Omeprazole 20 MG TAKE ONE CAPSULE BY MOUTH ONCE DAILY 30 Active HM Senna-S 8.6-50 MG Orally 2 times a day 1 tablet 12h May, Not-Taking Cyanocobalamin 1000 MCG/ML INJECT 1 ML SUBCUTANEOUSLY EVERY OTHER MONTH 28 Active Movantik 12.5 MG Orally Once a day 1 tablet in the morning 24h 30 Not-Taking RESULTS No Results PROCEDURES Procedure Date Ordered Result Body Site LAB NOT BILLED BY [facility] Nov 04, 2018 VENIPUNCT, ROUTINE* Nov 04, 2018 [facility] VISIT ESTABLISHED PATIENT Nov 04, 2018 INSTRUCTIONS MEDICATIONS ADMINISTERED No Known Medications MEDICAL (GENERAL) HISTORY Type Description Date Medical History hypertension Medical History asthma Medical History Arthritis Medical History Hypoglycemia Medical History Heart Cath 11/05/2013 Medical History herniated disc--Seen by Dr. Troy Michelle pain specialist in [place], [place] Medical History Chronic low back pain [...]
--- OUTSIDE RECORDS SUMMARY | 2020-06-19 02:16 | XMS REPORT ---
Author Author Mahsa ROBERTS Organization [facility] Address [address] [place] [address] [address] Prov[address] Care Ct Scan Special Procedures Technologist Name Role Phone ARMANDONYASIA DIAZY Unavailable PROBLEMS Type Condition ICD9-CM Code [id number] Code Onset Dates Condition S tatus SNOMED Code Problem Chronic prescription opiate use Z79.899 Active 502648316 Problem Allergic rhinitis J30.9 Active 61 428686 Problem Bilateral low back pain, with sciatica presence unspecifie d M54.5 Active 573679491 Problem Cannabis abuse F12.10 Active 33274 009 Problem CKD (chronic kidney disease) stage 3, GFR 30-59 ml/min N18.3 Active 977378506 Problem GERD (gastroesophageal reflux disease) K21.9 Active 060238082 Problem Fibromyalgia M79.7 Active 8519000 7 Problem Drug induced constipation K59.03 Acti ve [id number] Problem Chronic obstructive pulmonary disease, unspecified COPD ty pe J44.9 Active 79888237 Problem Primary insomnia F51.01 Active 193 031424 Problem Anxiety F41.9 Active 10038841 Problem Other constipation K59.09 Active 1 [id number] Problem Chronic pain syndrome G89.4 Active 309700718 Problem Major depressive disorder, recurrent episode, un specified severity F33.9 Active 10036461 Problem Hyperlipidemia, unspecified hyperlipidemia E78.5 Active 26091364 Problem Essential hypertension I10 Active 97032592 Problem B12 deficiency E53.8 Active 29811 4004 Problem Atherosclerosis of [place] co ronary artery of [place] heart without angina pectoris I25.10 Active 5715016247651 Problem Chronic prescription benzodiazepine use Z79.899 Active 037911363 ALLERGIES No Information ENCOUNTERS Encounter Location Date Diagnosis [facility] [address] [facility] [id number] [address] [place] [address] Oct, Elevated platelet count R79. 89 [facility] [address] [address] 10 Oct, 2018 CKD (chronic kidney disease) stage 3, GFR 30-59 ml/min N18.3 ; Other chest pain R07.89 ; Acute midline thoracic back pain M54.6 ; Essential hypertension I10 and History of osteoporosis Z87.39 [place] [address] [address] 29 Sep, 2018 Chronic pain syndrome G89.4 [place] [address] [address] Sep, [place] [address] [address] Sep, Anxiety F41.9 and Chronic pa in syndrome G89.[address] [address] 18 Aug, 2018 Chronic pain syndrome G89.4 and Anxiety F41.9 [place] [address] [address] Aug, [address] [address] 03 Aug, 2018 Cannabis abuse F12.10 and Co ntrolled substance agreement terminated Z91.[address] [address] 28 Jul, 2018 Chronic pain syndrome G89.4 ; Bilateral low back pain, with sciatica presence unspecified M54.5 ; Chronic prescription opiate use Z79.899 ; Essential hypertension I10 ; Hyperlipidemia, unspecified hyperlipidemia E78.5 ; CKD (chronic kidney disease) stage 3, GFR 30-59 ml/min N18.3 and Allergic rhinitis J30.[address] [address] 20 Jul, 2018 Chronic pain syndrome G89.4 and Anxiety F41.[address] [address] 12 Sep, 2018 Screening for breast cancer Z12.31 and Major depressive disorder, recurrent episode, unspecified severity F33.9 [place] [id number] [facility] [id number] [address] [place] [address] Jun, Chronic pain syndrome G89.4 and Anxiety F41.9 [place] [address] [place] [id number] [address] [place] [address] May, Chronic pain syndrome G89.4 and Anxiety F41.9 [place] [address] [place] [id number] [address] [place] [address] Apr, Anxiety F41.9 [place] [address] [place] [id number] [place] [address] Apr, Chronic prescription opiate use Z79.899 ; Chronic pain syndrome G89.4 ; Essential hypertension I10 ; Allergic rhinitis J30.9 and CKD (chronic kidney disease) stage 3, GFR 30-59 ml/min N18.3 [place] [address] [place] [id number] [address] [place] [address] Apr, [place] [address] [place] [id number] [address] [place] [address] March, Anxiety F41.9 and Chronic pa in syndrome G89.4 [place] [address] [place] [id number] [address] [place] [address] March, CKD (chronic kidney disease) stage 3, GFR 30-59 ml/min N18.3 ; B12 deficiency E53.8 and Hyperlipidemia, unspecified hyperlipidemia E78.5 [place] [address] [facility] [id number] [address] [place] [address] March, Anxiety F41.9 and Chronic pa in syndrome G89.4 [place] [address] [place] [id number] [address] [place] [address] Feb, Anxiety F41.9 and Chronic pa in syndrome G89.4 [place] [address] [place] [id number] [address] [place] [address] Jan, B12 deficiency E53.8 [place] [address] [address] Jan, [place] [address] [address] Jan, Anxiety F41.9 ; Chronic pain syndrome G89.4 and Essential hypertension I10 [place] [address] [address] Jan, CKD (chronic kidney disease) stage 3, [...] Subacromial bursitis of right shoulder joint M75.51 [place] [address] [address] Dec, Essential hypertension I10 [place] [address] [address] 15 Dec, 2017 Chronic pain syndrome G89.4 [place] [address] [address] Dec, Chronic pain syndrome G89.4 [place] [address] [address] Nov, [place] [address] [address] Nov, Chronic pain syndrome G89.4 and Anxiety F41.9 [place] [address] [address] Oct, Chronic pain syndrome G89.4 ; Other constipation K59.09 and Chronic prescription opiate use Z79.899 [place] [address] [place] [address] 08 Oct, 2017 Chronic pain syndrome G89.4 and Anxiety F41.9 [place] [address] [address] Sep, Essential hypertension I10 [place] [address] [place] [id number] [place] [address] 16 Sep, 2017 Chronic pain syndrome G89.4 and Anxiety F41.9 [place] [address] [address] Aug, Chronic pain syndrome G89.4 and Anxiety F41.9 [place] [address] [address] 28 Jul, 2017 Essential hypertension I10 [place] [address] [address] 22 Jul, 2017 Chronic obstructive pulmonar y disease, unspecified COPD type J44.9 [place] [address] [address] Jul, Chronic pain syndrome G89.4 and Anxiety F41.9 [place] [address] [address] 13 Jul, 2017 Chronic pain syndrome G89.4 ; Essential hypertension I10 ; Fibromyalgia M79.7 ; CKD (chronic kidney disease) stage 3, GFR 30-59 ml/min N18.3 ; Subacromial bursitis, right M75.51 and Goals of care, co unseling/discussion Z71.89 [place] [address] [address] Jun, Chronic pain syndrome G89.4 and Anxiety F41.9 [place] [address] [place] [id number] [place] [address] May, Chronic pain syndrome G89.4 and Anxiety F41.9 [place] [address] [address] Apr, Chronic pain syndrome G89.4 and Anxiety F41.9 [facility] [address] [place] [id number] [address] [place] [address] Apr, Drug induced constipation K5 9.03 ; Chronic pain syndrome G89.4 and CKD (chronic kidney disease) stage 3, GFR 30-59 ml/min N18.3 [place] [address] [facility] [id number] [address] [place] [address] Apr, Chronic pain syndrome G89.4 and Anxiety F41.9 [place] [address] [facility] [id number] [address] [place] [address] March, Chronic pain syndrome G89.4 and Anxiety F41.9 [place] [address] [place] [id number] [address] [place] [address] March, Decreased GFR R94.4 [place] [address] [place] [id number] [place] [address] Feb, [place] [address] [facility] [id number] [address] [place] [address] Feb, Chronic pain syndrome G89.4 and Anxiety F41.9 [place] [address] [place] [id number] [address] [place] [address] Jan, Decreased GFR R94.4 [place] [address] [place] [id number] [address] [place] [address] Jan, Decreased GFR R94.4 [place] [address] [place] [id number] [address] [place] [address] Jan, Allergic rhinitis J30.9 ; Es sential hypertension I10 ; Major depressive disorder, recurrent episode, unspecified severity F33.9 and Primary insomnia F51.01 [facility] [address] [place] [id number] [address] [place] [address] Jan, Acute right-sided thoracic b ack pain M54.6 ; Subacromial bursitis of right shoulder joint M75.51 ; Chronic pain syndrome G89.4 and Anxiety F41.9 [place] [address] [facility] [id number] [address] [place] [address] Jan, Decreased GFR R94.4 [place] [address] [facility] [id number] [address] [place] [address] Dec, Decreased GFR R94.4 [place] [address] [facility] [id number] [address] [place] [address] Dec, Decreased GFR R94.4 [place] [address] [facility] [id number] [address] [place] [address] Dec, Decreased GFR R94.4 [place] [address] [facility] [id number] [address] [place] [address] Dec, Decreased GFR R94.4 [place] [address] [facility] [id number] [address] [place] [address] Dec, Anxiety F41.9 and Bilateral low back pain, with sciatica presence unspecified M54.5 [place] [address] [facility] [id number] [address] [place] [address] Dec, Thrombocytosis D47.3 ; Hyper lipidemia, unspecified hyperlipidemia E78.5 ; Need for hepatitis C screening test Z11.59 and B12 deficiency E53.8 [place] [address] [facility] [id number] [address] [place] [address] Nov, Need for hepatitis C screeni ng test Z11.59 [place] [address] [facility] [id number] [address] [place] [address] Nov, Anxiety F41.9 and Bilateral low back pain, with sciatica presence unspecified M54.5 [place] [address] [facility] [id number] [address] [place] [address] Oct, Bilateral low back pain, wit h sciatica presence unspecified M54.5 ; Chronic prescription opiate use Z79.899 ; Anxiety F41.9 ; Essential hypertension I10 ; Hyperlipidemia, unspecified hyperlipidemia E78.5 ; Health care maintenance Z00.00 and Thrombocytosis D47.3 [facility] [address] [facility] [id number] [address] [place] [address] Sep, [facility] [address] [facility] [id number] [address] [place] [address] Sep, [facility] [address] [facility] [id number] [address] [place] [address] Aug, [facility] [address] [facility] [id number] [address] [place] [address] Jul, B12 deficiency E53.8 [place] [address] [facility] [id number] [address] [place] [address] Jul, [place] [address] [facility] [id number] [address] [place] [address] Jul, Essential hypertension I10 ; Chronic pain syndrome G89.4 ; Anxiety F41.9 ; Screening for breast cancer Z12.39 ; Atherosclerosis of [place] coronary artery of [place] heart without angina pectoris I25.10 ; Major depressive disorder, recurrent episode, unspecified severity F33.9 ; Primary insomnia F51.01 and Allergic rhinitis J30.9 [place] [address] [facility] [id number] [address] [place] [address] Jun, [facility] [address] [place] [id number] [address] [place] [address] Jun, Leg wound, right, initial en counter S81.801A and Encounter for immunization Z23 [facility] [address] [facility] [id number] [address] [place] [address] Jun, Open wound of right ear, uns pecified open wound type, initial encounter S01.301A [place] [address] [facility] [id number] [address] [place] [address] May, B12 deficiency E53.8 [place] [address] [facility] [id number] [address] [place] [address] May, [facility] [address] [place] [id number] [address] [place] [address] May, [facility] [address] [address] May, Chronic pain syndrome G89.4 ; Chronic prescription opiate use Z79.899 ; Allergic rhinitis J30.9 ; Essential hypertension I10 and Non-healing skin lesion L98.9 [facility] [address] [address] Apr, [facility] [address] [address] March, [place] [address] [address] Feb, [place] [address] [address] Feb, [place] [address] [address] Feb, Chronic pain syndrome G89.4 ; Anxiety F41.9 ; B12 deficiency E53.8 ; Allergic rhinitis J30.9 ; Fibromyalgia M79.7 ; Actinic keratosis L57.0 ; Skin rash R21 ; Open wound of right ear, unspecified open wound type, initial encounter S01.301A ; Subacromial bursitis, right M75.51 ; GERD (gastroesophageal reflux disease) K21.9 and Chronic obstructive pulmonary disease, unspecified COPD type J44.9 [facility] [address] [place] [id number] [address] [place] [address] Jan, [facility] [address] [address] Jan, Essential hypertension I10 [facility] [address] [address] Jan, [facility] [address] [address] Jan, [facility] [address] [address] Jan, [facility] [address] [address] Dec, [facility] [address] [address] Dec, Essential hypertension I10 [facility] [address] [address] Dec, [facility] [address] [address] Dec, B12 deficiency E53.8 and Ess ential hypertension I10 [place] [address] [address] Dec, [place] [address] [address] Nov, Right shoulder pain M25.511 [place] [address] [address] Nov, Right shoulder pain M25.511 [place] [address] [address] Nov, Essential hypertension I10 a nd B12 deficiency E53.8 [place] [address] [address] Nov, Major depressive disorder, r ecurrent episode, unspecified severity F33.9 ; Anxiety F41.9 ; Chronic pain syndrome G89.4 ; Essential hypertension I10 ; Hyperlipidemia, unspecified hyperlipidemia E78.5 ; Chronic prescription opiate use Z79.899 ; Allergic rhinitis J30.9 ; B12 deficiency E53.8 and Right shoulder pain M25.511 [facility] [address] [address] Oct, [place] [address] [address] Oct, [facility] [address] [facility] [id number] [address] [place] [address] Sep, [facility] [address] [facility] [id number] [address] [place] [address] Sep, [facility] [address] [facility] [id number] [address] [place] [address] Aug, [facility] [address] [place] [id number] [place] [address] Aug, [facility] [address] [facility] [id number] [address] [place] [address] Aug, [facility] [address] [place] [id number] [place] [address] Aug, Other constipation K59.09 ; Hyperlipidemia, unspecified hyperlipidemia E78.5 ; Essential hypertension I10 ; Primary insomnia F51.01 ; Anxiety F41.9 ; Chronic pain syndrome G89.4 ; Right shoulder pain M25.511 and Acute cystitis without hematuria N30.00 [facility] [address] [place] [id number] [address] [place] [address] Jul, [facility] [address] [facility] [id number] [address] [place] [address] Jul, [facility] [address] [place] [id number] [address] [place] [address] Jun, [facility] [address] [facility] [id number] [address] [place] [address] Jun, [facility] [address] [facility] [id number] [address] [place] [address] Jun, [facility] [address] [facility] [id number] [address] [place] [address] May, [facility] [address] [facility] [id number] [address] [place] [address] May, Other chronic pain 338.29 ; Hypertension 401.9 and Constipation due to opioid therapy 564.09 [facility] [address] [id number] [address] [place] [address] 17 May, 2015 [facility] [address] [id number] [address] [place] [address] 15 May, 2015 [facility] [address] [id number] [address] [place] [address] 17 Apr, 2015 [facility] [address] [id number] [address] [place] [address] 17 Apr, 2015 Unspecified essential hypert ension 401.9 [facility] [address] [id number] [address] [place] [address], [place] [address] 16 Apr, 2015 [facility] [address] [id number] [address] [place] [address] 16 Apr, 2015 [facility] [address] [id number] [address] [place] [address] Apr, [facility] [address] [id number] [address] [place] [address] Apr, [facility] [address] [id number] [address] [place] [address] Apr, [facility] [address] [id number] [address] [place] [address] Apr, [facility] [address] [id number] [address] [place] [address] March, Unspecified essential hypert ension 401.9 [facility] [address] [id number] [address] [place] [address] March, [facility] [address] [id number] [address] [place] [address] March, [facility] [address] [id number] [address] [place] [address] 14 Feb, 2015 [facility] [address] [id number] [address] [place] [address] 13 Feb, 2015 [facility] [address] [id number] [address] [place] [address], [place] [address] 23 Jan, 2014 [facility] [address] [id number] [address] [place] [address], [place] [address] 23 Jan, 2015 [facility] [address] [id number] [address] [place] [address], [place] [address] 17 Jan, 2014 [facility] [address] [id number] [address] [place] [address], [place] [address] 17 Jan, 2014 [facility] [address] [id number] [address] [place] [address], [place] [address] Jan, [facility] [address] [id number] [address] [place] [address], [place] [address] Jan, [facility] [address] [id number] [address] [place] [address], [place] [address] Jan, [facility] [address] [id number] [address] [place] [address], [place] [address] 16 Dec, 2014 [facility] [address] [id number] [address] [place] [address], [place] [address] 16 Dec, 2014 [facility] [address] [id number] [address] [place] [address], [place] [address] 13 Dec, 2014 [facility] [address] [id number] [address] [place] [address], [place] [address] Nov, [facility] [address] [id number] [address] [place] [address], [place] [address] Nov, [facility] [address] [id number] [address] [place] [address], [place] [address] Oct, [facility] [address] [id number] [address] [place] [address], [place] [address] Oct, [facility] [address] [id number] [address] [place] [address], [place] [address] Oct, [facility] [address] [id number] [address] [place] [address], [place] [address] Oct, [facility] [address] [id number] [address] [place] [address], [place] [address] Oct, [facility] [address] [id number] [address] [place] [address], [place] [address] Oct, [facility] [address] [id number] [address] [place] [address], [place] [address] Oct, [facility] [address] [id number] [address] [place] [address], [place] [address] Oct, [facility] [address] [id number] [address] [place] [address], [place] [address] Sep, [facility] [address] [id number] [address] [place] [address], [place] [address] Sep, [facility] [address] [id number] [address] [place] [address], [place] [address] Sep, [facility] [address] [id number] [address] [place] [address], [place] [address] Sep, [facility] [address] [id number] [address] [place] [address], [place] [address] Sep, [facility] [address] [id number] [address] [place] [address], [place] [address] Sep, [facility] [address] [id number] [address] [place] [address], [place] [address] Aug, [facility] [address] [id number] [address] [place] [address] Aug, [facility] [address] [id number] [address] [place] [address], [place] [address] Aug, [facility] [address] [id number] [address] [place] [address], [place] [address] Aug, [facility] [address] [id number] [address] [place] [address], [place] [address] Aug, [facility] [address] [id number] [address] [place] [address], [place] [address] Aug, [facility] [address] [id number] [address] [place] [address], [place] [address] Aug, [facility] [address] [id number] [address] [place] [address], [place] [address] Aug, [facility] [address] [id number] [address] [place] [address], [place] [address] Aug, [facility] [address] [id number] [address] [place] [address], [place] [address] Aug, [facility] [address] [id number] [address] [place] [address], [place] [address] Jul, [facility] [address] [id number] [address] [place] [address], [place] [address] Jul, [facility] [address] [id number] [address] [place] [address], [place] [address] Jul, [facility] [address] [id number] [address] [place] [address], [place] [address] Jul, [facility] [address] [id number] [address] [place] [address], [place] [address] Jul, [facility] [address] [id number] [address] [place] [address], [place] [address] Jul, [facility] [address] [id number] [address] [place] [address], [place] [address] Jun, [facility] [address] [id number] [address] [place] [address], [place] [address] Jun, [facility] [address] [id number] [address] [place] [address], [place] [address] Jun, [facility] [address] [id number] [address] [place] [address], [place] [address] Jun, [facility] [address] [id number] [address] [place] [address], [place] [address] Jun, [facility] [address] [id number] [address] [place] [address], [place] [address] Jun, [facility] [address] [id number] [address] [place] [address], [place] [address] May, [facility] [address] [id number] [address] [place] [address], [place] [address] May, [facility] [address] [id number] [address] [place] [address], [place] [address] May, [facility] [address] [id number] [address] [place] [address], [place] [address] May, [facility] [address] [id number] [address] [place] [address], [place] [address] May, [facility] [address] [id number] [address] [place] [address], [place] [address] Apr, [facility] [address] [id number] [address] [place] [address], [place] [address] Apr, [facility] [address] [id number] [address] [place] [address], [place] [address] Apr, [facility] [address] [id number] [address] [place] [address], [place] [address] Apr, [facility] [address] [id number] [address] [place] [address], [place] [address] March, [facility] [address] [id number] [address] [place] [address], [place] [address] March, [facility] [address] [id number] [address] [place] [address], [place] [address] March, [facility] [address] [id number] [address] [place] [address], [place] [address] March, [facility] [address] [id number] [address] [place] [address], [place] [address] March, [facility] [address] [id number] [address] [place] [address], [place] [address] March, [facility] [address] [id number] [address] [place] [address], [place] [address] Feb, [facility] [address] [id number] [address] [place] [address], [place] [address] Feb, [facility] [address] [id number] [address] [place] [address], [place] [address] Feb, [facility] [address] [id number] [address] [place] [address], [place] [address] Feb, [facility] [address] [id number] [address] [place] [address], [place] [address] Feb, [facility] [address] [id number] [address] [place] [address], [place] [address] Feb, [facility] [address] [id number] [address] [place] [address], [place] [address] Feb, [facility] [address] [id number] [address] [place] [address], [place] [address] Feb, [facility] [address] [id number] [address] [place] [address], [place] [address] Jan, [facility] [address] [id number] [address] [place] [address], [place] [address] Jan, [facility] [address] [id number] [address] [place] [address], [place] [address] Jan, [facility] [address] [id number] [address] [place] [address], [place] [address] Jan, [facility] [address] [id number] [address] [place] [address], [place] [address] Jan, [facility] [address] [id number] [address] [place] [address], [place] [address] Jan, [facility] [address] [id number] [address] [place] [address], [place] [address] Dec, [facility] [address] [id number] [address] [place] [address], [place] [address] Dec, [facility] [address] [id number] [address] [place] [address], [place] [address] Nov, [facility] [address] [id number] [address] [place] [address], [place] [address] Nov, [facility] [address] [id number] [address] [place] [address], [place] [address] Nov, [facility] [address] [id number] [address] [place] [address], [place] [address] Nov, [facility] [address] [id number] [address] [place] [address], [place] [address] Nov, [facility] [address] [id number] [address] [place] [address], [place] [address] Nov, [facility] [address] [id number] [address] [place] [address], [place] [address] Nov, [facility] [address] [id number] [address] [place] [address], [place] [address] Nov, [facility] [address] [id number] [address] [place] [address], [place] [address] Nov, [facility] [address] [id number] [address] [place] [address], [place] [address] Nov, [facility] [address] [id number] [address] [place] [address], [place] [address] Nov, [facility] [address] [id number] [address] [place] [address], [place] [address] Nov, [facility] [address] [id number] [address] [place] [address], [place] [address] Nov, [facility] [address] [id number] [address] [place] [address], [place] [address] Nov, [facility] [address] [id number] [address] [place] [address] [address] Nov, [facility] [address] [id number] [address] [place] [id number] Oct, [facility] [address] [id number] [address] [place] [id number] Oct, [facility] [address] [id number] [address] [place] [id number] Oct, [facility] [address] [id number] [address] [place] [id number] Oct, [facility] [address] [id number] [address] [place] [id number] Oct, [facility] [address] [id number] [address] [place] [id number] Oct, [facility] [address] [id number] [address] [place] [id number] Oct, [facility] [address] [id number] [address] [place] [id number] Oct, [facility] [address] [id number] [address] [place] [id number] Oct, [facility] [address] [id number] [address] [place] [address] Aug, [facility] [address] [id number] [address] [place] [id number] Aug, IMMUNIZATIONS No Known Immunizations SOCIAL HISTORY Never Assessed REASON FOR VISIT Future lab order PLAN OF CARE VITAL SIGNS MEDICATIONS Unknown Medications RESULTS No Results PROCEDURES No Known procedures INSTRUCTIONS MEDICATIONS ADMINISTERED No Known Medications MEDICAL (GENERAL) HISTORY Type Description Date Medical History hypertension Medical History asthma Medical History Arthritis Medical History Hypoglycemia Medical History Heart Cath 11/05/2013 Medical History herniated disc--Seen by Dr. Troy Michelle pain specialist in [place], [place] Medical History Chronic low back pain [...]
--- OUTSIDE RECORDS SUMMARY | 2020-06-19 02:16 | XMS REPORT ---
Author Author Mahsa ROBERTS Organization [facility] Address [address] [place] [address] Care Team Providers Care Personnel Records Clerk Name Role Phone ARMANDO ASHVIN Unavailable PROBLEMS Type Condition ICD9-CM Code MTS31-YX Code Onset Dates Condition S tatus SNOMED Code Problem Chronic prescription opiate use Z79.899 Active 914910044 Problem Allergic rhinitis J30.9 Active 61 349196 Problem Bilateral low back pain, with sciatica presence unspecifie d M54.5 Active 777146232 Problem Cannabis abuse F12.10 Active 39901 009 Problem CKD (chronic kidney disease) stage 3, GFR 30-59 ml/min N18.3 Active 570800460 Problem GERD (gastroesophageal reflux disease) K21.9 Active 926450438 Problem Fibromyalgia M79.7 Active 3144529 7 Problem Drug induced constipation K59.03 Acti ve [id number] Problem Chronic obstructive pulmonary disease, unspecified COPD ty pe J44.9 Active 05191867 Problem Primary insomnia F51.01 Active 193 007347 Problem Anxiety F41.9 Active 66371911 Problem Other constipation K59.09 Active 1 [id number] Problem Chronic pain syndrome G89.4 Active 612136152 Problem Major depressive disorder, recurrent episode, un specified severity F33.9 Active 14766784 Problem Hyperlipidemia, unspecified hyperlipidemia E78.5 Active 93120481 Problem Essential hypertension I10 Active 77067611 Problem B12 deficiency E53.8 Active 08806 4004 Problem Atherosclerosis of [place] co ronary artery of [place] heart without angina pectoris I25.10 Active 2291882400188 Problem Chronic prescription benzodiazepine use Z79.899 Active 905451060 ALLERGIES No Information ENCOUNTERS Encounter Location Date Diagnosis [facility] [address] [facility] [id number] [address] [place] [phone] Oct, [facility] [address] [facility] [id number] [address] [place] [address] Sep, Chronic pain syndrome G89.4 [place] [address] [place] [id number] [place] [address] Sep, [place] [address] [place] [id number] [place] [address] Sep, Anxiety F41.9 and Chronic pa in syndrome G89.[address] [address] Aug, Chronic pain syndrome G89.4 and Anxiety F41.9 [place] [address] [address] Aug, [address] [address] Aug, Cannabis abuse F12.10 and Co ntrolled substance agreement terminated Z91.[address] [address] Jul, Chronic pain syndrome G89.4 ; Bilateral low back pain, with sciatica presence unspecified M54.5 ; Chronic prescription opiate use Z79.899 ; Essential hypertension I10 ; Hyperlipidemia, unspecified hyperlipidemia E78.5 ; CKD (chronic kidney disease) stage 3, GFR 30-59 ml/min N18.3 and Allergic rhinitis J30.[address] [address] Jul, Chronic pain syndrome G89.4 and Anxiety F41.9 [place] [address] [place] [id number] [place] [address] Jul, Screening for breast cancer Z12.31 and Major depressive disorder, recurrent episode, unspecified severity F33.9 [place] [address] [place] [id number] [address] [place] [address] Jun, Chronic pain syndrome G89.4 and Anxiety F41.[address] [address] May, Chronic pain syndrome G89.4 and Anxiety F41.9 [place] [address] [facility] [id number] [address] [place] [address] Apr, Anxiety F41.9 [place] [address] [facility] [id number] [address] [place] [address] Apr, Chronic prescription opiate use Z79.899 ; Chronic pain syndrome G89.4 ; Essential hypertension I10 ; Allergic rhinitis J30.9 and CKD (chronic kidney disease) stage 3, GFR 30-59 ml/min N18.3 [place] [address] [facility] [id number] [address] [place] [address] Apr, [place] [address] [facility] [id number] [address] [place] [address] March, Anxiety F41.9 and Chronic pa in syndrome G89.4 [place] [address] [place] [id number] [address] [place] [address] March, CKD (chronic kidney disease) stage 3, GFR 30-59 ml/min N18.3 ; B12 deficiency E53.8 and Hyperlipidemia, unspecified hyperlipidemia E78.5 [place] [address] [facility] [id number] [address] [place] [address] March, Anxiety F41.9 and Chronic pa in syndrome G89.4 [place] [address] [facility] [id number] [address] [place] [address] Feb, Anxiety F41.9 and Chronic pa in syndrome G89.4 [place] [address] [facility] [id number] [address] [place] [address] Jan, B12 deficiency E53.8 [place] [address] [facility] [id number] [address] [place] [address] Jan, [place] [address] [facility] [id number] [address] [place] [address] Jan, Anxiety F41.9 ; Chronic pain syndrome G89.4 and Essential hypertension I10 [place] [id number] [place] [address] Jan, CKD (chronic kidney disease) stage 3, [...] Subacromial bursitis of right shoulder joint M75.51 [place] [address] [address] Dec, Essential hypertension I10 [place] [address] [place] [id number] [place] [address] Dec, Chronic pain syndrome G89.4 [place] [address] [address] Dec, Chronic pain syndrome G89.4 [place] [address] [place] [id number] [address] [place] [address] Nov, [place] [address] [address] Nov, Chronic pain syndrome G89.4 and Anxiety F41.9 [place] [address] [place] [id number] [address] [place] [address] Oct, Chronic pain syndrome G89.4 ; Other constipation K59.09 and Chronic prescription opiate use Z79.899 [place] [address] [place] [id number] [address] [place] [address] Oct, Chronic pain syndrome G89.4 and Anxiety F41.9 [place] [address] [place] [id number] [address] [place] [address] Sep, Essential hypertension I10 [place] [address] [address] Sep, Chronic pain syndrome G89.4 and Anxiety F41.9 [place] [address] [address] Aug, Chronic pain syndrome G89.4 and Anxiety F41.9 [place] [address] [place] [id number] [place] [address] Jul, Essential hypertension I10 [place] [address] [address] Jul, Chronic obstructive pulmonar y disease, unspecified COPD type J44.9 [place] [address] [address] Jul, Chronic pain syndrome G89.4 and Anxiety F41.9 [place] [address] [address] Jul, Chronic pain syndrome G89.4 ; Essential hypertension I10 ; Fibromyalgia M79.7 ; CKD (chronic kidney disease) stage 3, GFR 30-59 ml/min N18.3 ; Subacromial bursitis, right M75.51 and Goals of care, co unseling/discussion Z71.89 [place] [address] [address] Jun, Chronic pain syndrome G89.4 and Anxiety F41.9 [place] [address] [address] May, Chronic pain syndrome G89.4 and Anxiety F41.9 [place] [address] [address] Apr, Chronic pain syndrome G89.4 and Anxiety F41.9 [place] [address] [address] Apr, Drug induced constipation K5 9.03 ; Chronic pain syndrome G89.4 and CKD (chronic kidney disease) stage 3, GFR 30-59 ml/min N18.3 [place] [address] [facility] [id number] [address] [place] [address] Apr, Chronic pain syndrome G89.4 and Anxiety F41.9 [facility] [address] [facility] [id number] [address] [place] [phone] March, Chronic pain syndrome G89.4 and Anxiety F41.9 [facility] [address] [facility] [id number] [address] [place] [address] March, Decreased GFR R94.4 [place] [address] [id number] [address] [place] [address] Feb, [place] [address] [facility] [id number] [address] [place] [address] Feb, Chronic pain syndrome G89.4 and Anxiety F41.9 [place] [address] [place] [id number] [address] [place] [address] Jan, Decreased GFR R94.4 [place] [address] [facility] [id number] [address] [place] [address] Jan, Decreased GFR R94.4 [place] [address] [facility] [id number] [address] [place] [address] Jan, Allergic rhinitis J30.9 ; Es sential hypertension I10 ; Major depressive disorder, recurrent episode, unspecified severity F33.9 and Primary insomnia F51.01 [place] [address] [facility] [id number] [address] [place] [address] Jan, Acute right-sided thoracic b ack pain M54.6 ; Subacromial bursitis of right shoulder joint M75.51 ; Chronic pain syndrome G89.4 and Anxiety F41.9 [place] [address] [facility] [id number] [address] [place] [address] Jan, Decreased GFR R94.4 [place] [address] [facility] [id number] [address] [place] [address] Dec, Decreased GFR R94.4 [place] [address] [place] [id number] [address] [place] [address] Dec, Decreased GFR R94.4 [place] [address] [address] Dec, Decreased GFR R94.4 [place] [address] [place] [id number] [place] [address] Dec, Decreased GFR R94.4 [place] [address] [address] Dec, Anxiety F41.9 and Bilateral low back pain, with sciatica presence unspecified M54.5 [place] [address] [address] Dec, Thrombocytosis D47.3 ; Hyper lipidemia, unspecified hyperlipidemia E78.5 ; Need for hepatitis C screening test Z11.59 and B12 deficiency E53.8 [place] [address] [address] Nov, Need for hepatitis C screeni ng test Z11.59 [place] [address] [address] Nov, Anxiety F41.9 and Bilateral low back pain, with sciatica presence unspecified M54.5 [place] [address] [address] Oct, Bilateral low back pain, wit h sciatica presence unspecified M54.5 ; Chronic prescription opiate use Z79.899 ; Anxiety F41.9 ; Essential hypertension I10 ; Hyperlipidemia, unspecified hyperlipidemia E78.5 ; Health care maintenance Z00.00 and Thrombocytosis D47.3 [place] [address] [address] Sep, [place] [address] [address] Sep, [place] [address] [place] [address] Aug, [facility] [address] [place] [address] Jul, B12 deficiency E53.8 [facility] [address] [place] [id number] [address] [place] [address] Jul, [place] [address] [address] Jul, Essential hypertension I10 ; Chronic pain syndrome G89.4 ; Anxiety F41.9 ; Screening for breast cancer Z12.39 ; Atherosclerosis of [place] coronary artery of [place] heart without angina pectoris I25.10 ; Major depressive disorder, recurrent episode, unspecified severity F33.9 ; Primary insomnia F51.01 and Allergic rhinitis J30.9 [facility] [address] [address] Jun, [facility] [address] [place] [id number] [place] [address] Jun, Leg wound, right, initial en counter S81.801A and Encounter for immunization Z23 [place] [address] [address] Jun, Open wound of right ear, uns pecified open wound type, initial encounter S01.301A [place] [address] [address] May, B12 deficiency E53.8 [facility] [address] [place] [address] May, [facility] [address] [address] May, [place] [address] [address] May, Chronic pain syndrome G89.4 ; Chronic prescription opiate use Z79.899 ; Allergic rhinitis J30.9 ; Essential hypertension I10 and Non-healing skin lesion L98.9 [facility] [address] [facility] [id number] [address] [place] [address] Apr, [facility] [address] [facility] [id number] [address] [place] [address] March, [facility] [address] [facility] [id number] [address] [place] [address] Feb, [facility] [address] [facility] [id number] [address] [place] [address] Feb, [facility] [address] [facility] [id number] [address] [place] [address] Feb, Chronic pain syndrome G89.4 ; Anxiety F41.9 ; B12 deficiency E53.8 ; Allergic rhinitis J30.9 ; Fibromyalgia M79.7 ; Actinic keratosis L57.0 ; Skin rash R21 ; Open wound of right ear, unspecified open wound type, initial encounter S01.301A ; Subacromial bursitis, right M75.51 ; GERD (gastroesophageal reflux disease) K21.9 and Chronic obstructive pulmonary disease, unspecified COPD type J44.9 [facility] [address] [facility] [id number] [address] [place] [address] 30 Jan, 2016 [facility] [address] [facility] [id number] [address] [place] [address] Jan, Essential hypertension I10 [facility] [address] [facility] [id number] [address] [place] [address] Jan, [facility] [address] [facility] [id number] [address] [place] [address] Jan, [facility] [address] [facility] [id number] [address] [place] [address] Jan, [facility] [address] [facility] [id number] [address] [place] [address] Dec, [facility] [address] [facility] [id number] [address] [place] [address] Dec, Essential hypertension I10 [place] [address] [address] Dec, [facility] [address] [address] Dec, B12 deficiency E53.8 and Ess ential hypertension I10 [place] [address] [address] Dec, [facility] [address] [address] Nov, Right shoulder pain M25.511 [place] [address] [address] Nov, Right shoulder pain M25.511 [place] [address] [address] Nov, Essential hypertension I10 a nd B12 deficiency E53.8 [place] [address] [address] Nov, Major depressive disorder, r ecurrent episode, unspecified severity F33.9 ; Anxiety F41.9 ; Chronic pain syndrome G89.4 ; Essential hypertension I10 ; Hyperlipidemia, unspecified hyperlipidemia E78.5 ; Chronic prescription opiate use Z79.899 ; Allergic rhinitis J30.9 ; B12 deficiency E53.8 and Right shoulder pain M25.511 [place] [address] [address] Oct, [place] [address] [address] Oct, [place] [address] [address] Sep, [place] [address] [address] Sep, [place] [address] [address] Aug, [facility] [address] [id number] [address] [place] [address] Aug, [facility] [address] [id number] [address] [place] [address] Aug, [facility] [address] [facility] [id number] [address] [place] [address] Aug, Other constipation K59.09 ; Hyperlipidemia, unspecified hyperlipidemia E78.5 ; Essential hypertension I10 ; Primary insomnia F51.01 ; Anxiety F41.9 ; Chronic pain syndrome G89.4 ; Right shoulder pain M25.511 and Acute cystitis without hematuria N30.00 [facility] [address] [id number] [address] [place] [address] Jul, [facility] [address] [facility] [id number] [address] [place] [address] Jul, [facility] [address] [facility] [id number] [address] [place] [address] Jun, [facility] [address] [id number] [address] [place] [address] Jun, [facility] [address] [facility] [id number] [address] [place] [address] Jun, [facility] [address] [facility] [id number] [address] [place] [address] May, [facility] [address] [facility] [id number] [address] [place] [address] May, Other chronic pain 338.29 ; Hypertension 401.9 and Constipation due to opioid therapy 564.09 [facility] [address] [id number] [address] [place] [address] May, [facility] [address] [id number] [address] [place] [address] May, [facility] [address] [facility] [id number] [address] [place] [address] Apr, [facility] [address] [id number] [address] [place] [address] 17 Apr, 2015 Unspecified essential hypert ension 401.9 [facility] [address] [id number] [address] [place] [address] 16 Apr, 2015 [facility] [address] [id number] [address] [place] [address] Apr, [facility] [address] [id number] [address] [place] [address] Apr, [facility] [address] [id number] [address] [place] [address] Apr, [facility] [address] [id number] [address] [place] [address] Apr, [facility] [address] [id number] [address] [place] [address] Apr, [facility] [address] [id number] [address] [place] [address] March, Unspecified essential hypert ension 401.9 [facility] [address] [id number] [address] [place] [address] March, [facility] [address] [id number] [address] [place] [phone] March, [facility] [address] [id number] [address] [place] [address] 14 Feb, 2015 [facility] [address] [id number] [address] [place] [address] Feb, [facility] [address] [id number] [address] [place] [address] Jan, [facility] [address] [id number] [address] [place] [phone] Jan, [facility] [address] [id number] [address] [place] [phone] Jan, [facility] [address] [id number] [address] [place] [address], [place] [address] 17 Jan, 2014 [facility] [address] [id number] [address] [place] [address], [place] [address] 13 Jan, 2014 [facility] [address] [id number] [address] [place] [address], [place] [address] 02 Jan, 2014 [facility] [address] [id number] [address] [place] [address], [place] [address] 02 Jan, 2014 [facility] [address] [id number] [address] [place] [address], [place] [address] 16 Dec, 2014 [facility] [address] [id number] [address] [place] [address], [place] [address] 16 Dec, 2014 [facility] [address] [id number] [address] [place] [address], [place] [address] Dec, 2014 [facility] [address] [id number] [address] [place] [address], [place] [address] Nov, [facility] [address] [id number] [address] [place] [address], [place] [address] Nov, [facility] [address] [id number] [address] [place] [address], [place] [address] Oct, [facility] [address] [id number] [address] [place] [address], [place] [address] Oct, [facility] [address] [id number] [address] [place] [address], [place] [address] Oct, [facility] [address] [id number] [address] [place] [address], [place] [address] Oct, [facility] [address] [id number] [address] [place] [address], [place] [address] Oct, [facility] [address] [id number] [address] [place] [address], [place] [address] 08 Oct, 2014 [facility] [address] [id number] [address] [place] [id number] Oct, [facility] [address] [id number] [address] [place] [address], [place] [address] Oct, [facility] [address] [id number] [address] [place] [id number] Sep, [facility] [address] [id number] [address] [place] [address], [place] [address] Sep, [facility] [address] [id number] [address] [place] [address], [place] [address] Sep, [facility] [address] [id number] [address] [place] [address], [place] [address] Sep, [facility] [address] [id number] [address] [place] [address], [place] [address] Sep, [facility] [address] [id number] [address] [place] [address], [place] [address] Sep, [facility] [address] [id number] [address] [place] [address], [place] [address] Aug, [facility] [address] [id number] [address] [place] [address], [place] [address] Aug, [facility] [address] [id number] [address] [place] [address], [place] [address] Aug, [facility] [address] [id number] [address] [place] [address], [place] [address] Aug, [facility] [address] [id number] [address] [place] [address], [place] [address] Aug, [facility] [address] [id number] [address] [place] [address], [place] [address] Aug, [facility] [address] [id number] [address] [place] [address], [place] [address] Aug, [facility] [address] [id number] [address] [place] [address], [place] [address] Aug, [facility] [address] [id number] [address] [place] [address] Aug, [facility] [address] [id number] [address] [place] [address], [place] [address] Aug, [facility] [address] [id number] [address] [place] [address], [place] [address] Jul, [facility] [address] [id number] [address] [place] [address], [place] [address] Jul, [facility] [address] [id number] 28 [place] [address], [place] [address] Jul, [facility] [address] [id number] [address] [place] [address], [place] [address] Jul, [facility] [address] [id number] [address] [place] [address], [place] [address] Jul, [facility] [address] [id number] [address] [place] [address], [place] [address] Jul, [facility] [address] [id number] [address] [place] [address], [place] [address] Jun, [facility] [address] [id number] [address] [place] [address], [place] [address] Jun, [facility] [address] [id number] [address] [place] [address], [place] [address] Jun, [facility] [address] [id number] [address] [place] [address], [place] [address] Jun, [facility] [address] [id number] [address] [place] [address], [place] [address] Jun, [facility] [address] [id number] [address] [place] [address], [place] [address] Jun, [facility] [address] [id number] [address] [place] [address], [place] [address] May, [facility] [address] [id number] [address] [place] [address], [place] [address] May, [facility] [address] [id number] [address] [place] [address] May, [facility] [address] [id number] [address] [place] [address], [place] [address] May, [facility] [address] [id number] [address] [place] [address], [place] [address] May, [facility] [address] [id number] [address] [place] [address], [place] [address] Apr, [facility] [address] [id number] [address] [place] [address], [place] [address] Apr, [facility] [address] [id number] [address] [place] [address], [place] [address] Apr, [facility] [address] [id number] [address] [place] [address], [place] [address] Apr, [facility] [address] [id number] [address] [place] [address], [place] [address] March, [facility] [address] [id number] [address] [place] [address], [place] [address] March, [facility] [address] [id number] [address] [place] [address], [place] [address] March, [facility] [address] [id number] [address] [place] [address], [place] [address] March, [facility] [address] [id number] [address] [place] [address], [place] [address] March, [facility] [address] [id number] [address] [place] [address], [place] [address] March, [facility] [address] [id number] [address] [place] [address], [place] [address] Feb, [facility] [address] [id number] [address] [place] [address], [place] [address] Feb, [facility] [address] [id number] [address] [place] [address], [place] [address] Feb, [facility] [address] [id number] [facility] [place] [address] Feb, [facility] [address] [id number] [address] [place] [address], [place] [address] Feb, [facility] [address] [id number] [address] [place] [address], [place] [address] Feb, [facility] [address] [id number] [address] [place] [address], [place] [address] Feb, [facility] [address] [id number] [address] [place] [address], [place] [address] Feb, [facility] [address] [id number] [address] [place] [address], [place] [address] Jan, [facility] [address] [id number] [address] [place] [address], [place] [address] Jan, [facility] [address] [id number] [address] [place] [address], [place] [address] Jan, [facility] [address] [id number] [address] [place] [address], [place] [address] Jan, [facility] [address] [id number] [address] [place] [address], [place] [address] Jan, [facility] [address] [id number] [address] [place] [address], [place] [address] Jan, [facility] [address] [id number] [address] [place] [address], [place] [address] Dec, [facility] [address] [id number] [address] [place] [address], [place] [address] Dec, [facility] [address] [id number] [address] [place] [address], [place] [address] Nov, [facility] [address] [id number] [address] [place] [address], [place] [address] Nov, [facility] [address] [id number] [address] [place] [address], [place] [address] Nov, [facility] [address] [id number] [address] [place] [address], [place] [address] Nov, [facility] [address] [id number] [address] [place] [address], [place] [address] Nov, [facility] [address] [id number] [address] [place] [address], [place] [address] Nov, [facility] [address] [id number] [address] [place] [address], [place] [address] Nov, [facility] [address] [id number] [address] [place] [address], [place] [address] Nov, [facility] [address] [id number] [address] [place] [address], [place] [address] Nov, [facility] [address] [id number] [address] [place] [address], [place] [address] Nov, [facility] [address] [id number] [address] [place] [address], [place] [address] Nov, [facility] [address] [id number] [address] [place] [address], [place] [address] Nov, [facility] [address] [id number] [address] [place] [address], [place] [address] Nov, [facility] [address] [id number] [address] [place] [address], [place] [address] Nov, [facility] [address] [id number] [address] [place] [address], [place] [address] Nov, [facility] [address] [id number] [address] [place] [address], [place] [address] Oct, [facility] [address] [id number] [address] [place] [address], [place] [address] Oct, [facility] [address] [id number] [address] [place] [address] Oct, [facility] [address] [id number] [address] [place] [address] Oct, [facility] [address] [id number] [address] [place] [address] Oct, [facility] [address] [id number] [address] [place] [address] Oct, [facility] [address] [id number] [address] [place] [address] Oct, [facility] [address] [id number] [address] [place] [address] Oct, [facility] [address] [id number] [address] [place] [address] Oct, [facility] [address] [id number] [address] [place] [address] Aug, [facility] [address] [id number] [address] [place] [address] Aug, IMMUNIZATIONS No Known Immunizations SOCIAL HISTORY Never Assessed REASON FOR VISIT Controlled Med Refill 10/25 PLAN OF CARE VITAL SIGNS MEDICATIONS Medication Instructions Dosage Frequency Start Date End Date Duration S tatus Oxycodone HCl 10 mg Orally 2 times a day 1 tablet as needed 12h 30 Sep, 2018 14 days Active RESULTS No Results PROCEDURES No Known procedures INSTRUCTIONS MEDICATIONS ADMINISTERED No Known Medications MEDICAL (GENERAL) HISTORY Type Description Date Medical History hypertension Medical History asthma Medical History Arthritis Medical History Hypoglycemia Medical History Heart Cath 11/05/2013 Medical History herniated disc--Seen by Dr. Troy Michelle pain specialist in [place], [place] Medical History Chronic low back pain [...]
--- OUTSIDE RECORDS SUMMARY | 2020-06-19 02:17 | XMS REPORT ---
Author Author Mahsa ROBERTS Organization [facility] [place] Address [address] [place] [address] Care Team Providers Care Asset Protection Greeter Name Role Phone ARMANDO ASHVIN Unavailable PROBLEMS Type Condition ICD9-CM Code [id number] Code Onset Dates Condition S tatus SNOMED Code Problem Chronic prescription opiate use Z79.899 Active 809631188 Problem Allergic rhinitis J30.9 Active 61 939701 Problem Bilateral low back pain, with sciatica presence unspecifie d M54.5 Active 119034263 Problem Cannabis abuse F12.10 Active 95982 009 Problem CKD (chronic kidney disease) stage 3, GFR 30-59 ml/min N18.3 Active 794842907 Problem GERD (gastroesophageal reflux disease) K21.9 Active 219927366 Problem Fibromyalgia M79.7 Active 9464223 7 Problem Drug induced constipation K59.03 Acti ve [id number] Problem Chronic obstructive pulmonary disease, unspecified COPD ty pe J44.9 Active 95874906 Problem Primary insomnia F51.01 Active 193 964565 Problem Anxiety F41.9 Active 84568101 Problem Other constipation K59.09 Active 1 [id number] Problem Chronic pain syndrome G89.4 Active 570656684 Problem Major depressive disorder, recurrent episode, un specified severity F33.9 Active 69010585 Problem Hyperlipidemia, unspecified hyperlipidemia E78.5 Active 98615414 Problem Essential hypertension I10 Active 96279672 Problem B12 deficiency E53.8 Active 23191 4004 Problem Atherosclerosis of grindstone co ronary 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.10 Active 6758615500232 Problem Chronic prescription benzodiazepine use Z79.899 Active 159965193 ALLERGIES No Information ENCOUNTERS Encounter Location Date Diagnosis [facility] [place] [address] [facility] [place] [id number] [address] [place] [address] 04 Aug, 2018 [facility] [place] [address] [facility] [place] [id number] [address] [place] [address] Aug, Cannabis abuse F12.10 and Co ntrolled substance agreement terminated Z91.[address] [address] Jul, Chronic pain syndrome G89.4 ; Bilateral low back pain, with sciatica presence unspecified M54.5 ; Chronic prescription opiate use Z79.899 ; Essential hypertension I10 ; Hyperlipidemia, unspecified hyperlipidemia E78.5 ; CKD (chronic kidney disease) stage 3, GFR 30-59 ml/min N18.3 and Allergic rhinitis J30.9 [place] [address] [address] Jul, Chronic pain syndrome G89.4 and Anxiety F41.[address] [address] Jul, Screening for breast cancer Z12.31 and Major depressive disorder, recurrent episode, unspecified severity F33.9 [place] [address] [address] Jun, Chronic pain syndrome G89.4 and Anxiety F41.[address] [address] May, Chronic pain syndrome G89.4 and Anxiety F41.9 [place] [address] [address] Apr, Anxiety F41.[address] [address] Apr, Chronic prescription opiate use Z79.899 ; Chronic pain syndrome G89.4 ; Essential hypertension I10 ; Allergic rhinitis J30.9 and CKD (chronic kidney disease) stage 3, GFR 30-59 ml/min N18.3 [place] [address] [place] [id number] [address] [place] [address] Apr, [place] [address] [address] March, Anxiety F41.9 and Chronic pa in syndrome G89.4 [place] [address] [address] March, CKD (chronic kidney disease) stage 3, GFR 30-59 ml/min N18.3 ; B12 deficiency E53.8 and Hyperlipidemia, unspecified hyperlipidemia E78.5 [place] [address] [address] March, Anxiety F41.9 and Chronic pa in syndrome G89.4 [place] [address] [address] Feb, Anxiety F41.9 and Chronic pa in syndrome G89.4 [place] [address] [address] Jan, B12 deficiency E53.8 [place] [address] [address] Jan, [place] [address] [address] Jan, Anxiety F41.9 ; Chronic pain syndrome G89.4 and Essential hypertension I10 [place] [address] [address] Jan, CKD (chronic kidney disease) stage 3, [...] Subacromial bursitis of right shoulder joint M75.51 [place] [address] [address] Dec, Essential hypertension I10 [address] [place] [address] 15 Dec, 2017 Chronic pain syndrome G89.4 [facility] [place] [address] [facility] [place] [id number] [address] [place] [address] 06 Dec, 2017 Chronic pain syndrome G89.4 [facility] [place] [address] [facility] [place] [id number] [address] [place] [address] Nov, [facility] [place] [address] [facility] [place] [id number] [address] [place] [address] Nov, Chronic pain syndrome G89.4 and Anxiety F41.9 [facility] [place] [address] [facility] [place] [id number] [address] [place] [address] Oct, Chronic pain syndrome G89.4 ; Other constipation K59.09 and Chronic prescription opiate use Z79.899 [facility] [place] [address] [place] [id number] [address] [place] [address] Oct, Chronic pain syndrome G89.4 and Anxiety F41.9 [facility] [place] [address] [facility] [place] [id number] [address] [place] [address] Sep, Essential hypertension I10 [facility] [place] [address] [place] [id number] [address] [place] [address] 16 Sep, 2017 Chronic pain syndrome G89.4 and Anxiety F41.9 [facility] [place] [address] [facility] [place] [id number] [address] [place] [address] Aug, Chronic pain syndrome G89.4 and Anxiety F41.9 [facility] [place] [address] [facility] [place] [id number] [address] [place] [address] 28 Jul, 2017 Essential hypertension I10 [facility] [place] [address] [facility] [place] [id number] [address] [place] [address] 22 Jul, 2017 Chronic obstructive pulmonar y disease, unspecified COPD type J44.9 [facility] [place] [address] [facility] [place] [id number] [address] [place] [address] Jul, Chronic pain syndrome G89.4 and Anxiety F41.9 [place] [address] [facility] [place] [id number] [address] [place] [address] 13 Jul, 2017 Chronic pain syndrome G89.4 ; Essential hypertension I10 ; Fibromyalgia M79.7 ; CKD (chronic kidney disease) stage 3, GFR 30-59 ml/min N18.3 ; Subacromial bursitis, right M75.51 and Goals of care, co unseling/discussion Z71.89 [place] [address] [address] [place] [id number] [address] [place] [address] Jun, Chronic pain syndrome G89.4 and Anxiety F41.9 [place] [address] [address] [place] [id number] [address] [place] [address] May, Chronic pain syndrome G89.4 and Anxiety F41.9 [place] [address] [place] [id number] [address] [place] [address] Apr, Chronic pain syndrome G89.4 and Anxiety F41.9 [place] [address] [place] [id number] [address] [place] [address] Apr, Drug induced constipation K5 9.03 ; Chronic pain syndrome G89.4 and CKD (chronic kidney disease) stage 3, GFR 30-59 ml/min N18.3 [place] [address] [facility] [place] [id number] [address] [place] [address] 02 Apr, 2017 Chronic pain syndrome G89.4 and Anxiety F41.9 [place] [address] [address] [place] [id number] [address] [place] [address] March, Chronic pain syndrome G89.4 and Anxiety F41.9 [place] [address] [facility] [place] [id number] [address] [place] [address] March, Decreased GFR R94.4 [place] [address] [facility] [place] [id number] [address] [place] [address] Feb, [place] [address] [address] [place] [id number] [address] [place] [address] Feb, Chronic pain syndrome G89.4 and Anxiety F41.9 [facility] [place] [address] [facility] [place] [id number] [address] [place] [address] Jan, Decreased GFR R94.4 [facility] [place] [address] [facility] [place] [id number] [address] [place] [address] Jan, Decreased GFR R94.4 [facility] [place] [address] [place] [id number] [address] [place] [address] Jan, Allergic rhinitis J30.9 ; Es sential hypertension I10 ; Major depressive disorder, recurrent episode, unspecified severity F33.9 and Primary insomnia F51.01 [facility] [place] [address] [facility] [place] [id number] [address] [place] [address] Jan, Acute right-sided thoracic b ack pain M54.6 ; Subacromial bursitis of right shoulder joint M75.51 ; Chronic pain syndrome G89.4 and Anxiety F41.9 [facility] [place] [address] [place] [id number] [address] [place] [address] Jan, Decreased GFR R94.4 [facility] [place] [address] [facility] [place] [id number] [address] [place] [address] Dec, Decreased GFR R94.4 [facility] [place] [address] [place] [id number] [address] [place] [address] Dec, Decreased GFR R94.4 [facility] [place] [address] [place] [id number] [address] [place] [address] Dec, Decreased GFR R94.4 [facility] [place] [address] [facility] [place] [id number] [address] [place] [address] Dec, Decreased GFR R94.4 [facility] [place] [address] [place] [id number] [address] [place] [address] Dec, Anxiety F41.9 and Bilateral low back pain, with sciatica presence unspecified M54.5 [facility] [place] [address] [place] [id number] [address] [place] [address] Dec, Thrombocytosis D47.3 ; Hyper lipidemia, unspecified hyperlipidemia E78.5 ; Need for hepatitis C screening test Z11.59 and B12 deficiency E53.8 [place] [address] [address] 13 Nov, 2016 Need for hepatitis C screeni ng test Z11.59 [place] [address] [address] 13 Nov, 2016 Anxiety F41.9 and Bilateral low back pain, with sciatica presence unspecified M54.5 [place] [address] [address] Oct, Bilateral low back pain, wit h sciatica presence unspecified M54.5 ; Chronic prescription opiate use Z79.899 ; Anxiety F41.9 ; Essential hypertension I10 ; Hyperlipidemia, unspecified hyperlipidemia E78.5 ; Health care maintenance Z00.00 and Thrombocytosis D47.3 [place] [address] [address] Sep, [place] [address] [address] Sep, [place] [address] [address] Aug, [place] [address] [address] Jul, B12 deficiency E53.8 [place] [address] [place] [id number] [address] [place] [address] Jul, [place] [address] [place] [id number] [place] [address] Jul, Essential hypertension I10 ; Chronic pain syndrome G89.4 ; Anxiety F41.9 ; Screening for breast cancer Z12.39 ; Atherosclerosis of grindstone coronary 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.10 ; Major depressive disorder, recurrent episode, unspecified severity F33.9 ; Primary insomnia F51.01 and Allergic rhinitis J30.9 [facility] [place] [address] [id number] [address] [place] [address] Jun, [facility] [address] [facility] [place] [id number] [address] [place] [address] Jun, Leg wound, right, initial en counter S81.801A and Encounter for immunization Z23 [facility] [place] [address] [facility] [place] [id number] [address] [place] [address] Jun, Open wound of right ear, uns pecified open wound type, initial encounter S01.301A [facility] [place] [address] [facility] [place] [id number] [address] [place] [address] May, B12 deficiency E53.8 [facility] [place] [address] [facility] [place] [id number] [address] [place] [address] May, [facility] [place] [address] [facility] [place] [id number] [address] [place] [address] May, [facility] [place] [address] [facility] [place] [id number] [address] [place] [address] May, Chronic pain syndrome G89.4 ; Chronic prescription opiate use Z79.899 ; Allergic rhinitis J30.9 ; Essential hypertension I10 and Non-healing skin lesion L98.9 [facility] [place] [address] [facility] [place] [id number] [address] [place] [address] Apr, [facility] [place] [address] [facility] [place] [id number] [address] [place] [address] March, [facility] [place] [address] [facility] [place] [id number] [address] [place] [address] Feb, [facility] [place] [address] [facility] [place] [id number] [address] [place] [address] Feb, [facility] [place] [address] [facility] [place] [id number] [address] [place] [address] Feb, Chronic pain syndrome G89.4 ; Anxiety F41.9 ; B12 deficiency E53.8 ; Allergic rhinitis J30.9 ; Fibromyalgia M79.7 ; Actinic keratosis L57.0 ; Skin rash R21 ; Open wound of right ear, unspecified open wound type, initial encounter S01.301A ; Subacromial bursitis, right M75.51 ; GERD (gastroesophageal reflux disease) K21.9 and Chronic obstructive pulmonary disease, unspecified COPD type J44.9 [facility] [place] [address] [facility] [place] [id number] [address] [place] [address] 30 Jan, 2016 [facility] [place] [address] [facility] [place] [id number] [address] [place] [address] Jan, Essential hypertension I10 [facility] [place] [address] [facility] [place] [id number] [address] [place] [address] Jan, [facility] [place] [address] [facility] [place] [id number] [address] [place] [address] Jan, [facility] [place] [address] [facility] [place] [id number] [address] [place] [address] Jan, [facility] [place] [address] [facility] [place] [id number] [address] [place] [address] Dec, [facility] [place] [address] [facility] [place] [id number] [address] [place] [address] Dec, Essential hypertension I10 [facility] [place] [address] [facility] [place] [id number] [address] [place] [address] Dec, [facility] [place] [address] [facility] [place] [id number] [address] [place] [address] Dec, B12 deficiency E53.8 and Ess ential hypertension I10 [facility] [place] [address] [facility] [place] [id number] [address] [place] [address] Dec, [facility] [place] [address] [facility] [place] [id number] [address] [place] [address] Nov, Right shoulder pain M25.511 [facility] [place] [address] [facility] [place] [id number] [address] [place] [address] Nov, Right shoulder pain M25.511 [place] [address] [address] [place] [id number] [address] [place] [address] 18 Nov, 2015 Essential hypertension I10 a nd B12 deficiency E53.8 [place] [address] [address] 14 Nov, 2015 Major depressive disorder, r ecurrent episode, unspecified severity F33.9 ; Anxiety F41.9 ; Chronic pain syndrome G89.4 ; Essential hypertension I10 ; Hyperlipidemia, unspecified hyperlipidemia E78.5 ; Chronic prescription opiate use Z79.899 ; Allergic rhinitis J30.9 ; B12 deficiency E53.8 and Right shoulder pain M25.511 [place] [address] [address] 17 Oct, 2015 [place] [address] [address] Oct, [place] [address] [address] Sep, [facility] [place] [address] [address] Sep, [place] [address] [address] Aug, [place] [address] [address] Aug, [place] [address] [address] Aug, [facility] [place] [address] [address] Aug, Other constipation K59.09 ; Hyperlipidemia, unspecified hyperlipidemia E78.5 ; Essential hypertension I10 ; Primary insomnia F51.01 ; Anxiety F41.9 ; Chronic pain syndrome G89.4 ; Right shoulder pain M25.511 and Acute cystitis without hematuria N30.00 [place] [address] [address] 16 Jul, 2015 [place] [address] [id number] [address] [place] [address] Jul, [facility] [address] [id number] [address] [place] [address] Jun, [facility] [address] [id number] [address] [place] [address] Jun, [facility] [place] [address] [id number] [address] [place] [address] Jun, [facility] [place] [address] [id number] [address] [place] [address] May, [facility] [place] [address] [id number] [address] [place] [address] May, Other chronic pain 338.29 ; Hypertension 401.9 and Constipation due to opioid therapy 564.09 [facility] [place] [address] [id number] [address] [place] [address] 17 May, 2015 [facility] [place] [address] [id number] [address] [place] [address] May, [facility] [place] [address] [id number] [address] [place] [address] Apr, [facility] [place] [address] [facility] [place] [id number] [address] [place] [address] 17 Apr, 2015 Unspecified essential hypert ension 401.9 [facility] [place] [address] [id number] [address] [place] [address] 16 Apr, 2015 [facility] [place] [address] [id number] [address] [place] [address] Apr, [facility] [place] [address] [id number] [address] [place] [address] Apr, [facility] [place] [address] [facility] [place] [id number] [address] [place] [address] 16 Apr, 2015 [facility] [place] [address] [id number] [address] [place] [address] Apr, [facility] [address] [id number] [address] [place] [address], [place] [address] Apr, [facility] [address] [id number] [address] [place] [address], [place] [address] March, Unspecified essential hypert ension 401.9 [facility] [address] [id number] [address] [place] [address], [place] [address] March, [facility] [address] [id number] [address] [place] [address], [place] [address] March, [facility] [address] [id number] [address] [place] [address], [place] [address] Feb, [facility] [address] [id number] [address] [place] [address], [place] [address] Feb, [facility] [address] [id number] [address] [place] [address], [place] [address] Jan, [facility] [address] [id number] [address] [place] [address], [place] [address] Jan, [facility] [address] [id number] [address] [place] [address], [place] [address] Jan, [facility] [address] [id number] [address] [place] [address], [place] [address] Jan, [facility] [address] [id number] [address] [place] [address], [place] [address] Jan, [facility] [address] [id number] [address] [place] [address], [place] [address] Jan, [facility] [address] [id number] [address] [place] [address], [place] [address] Jan, [facility] [address] [id number] [address] [place] [address], [place] [address] 16 Dec, 2014 [facility] [address] [id number] [address] [place] [id number] Dec, [facility] [address] [id number] [address] [place] [address], [place] [address] Dec, [facility] [address] [id number] [address] [place] [address], [place] [address] Nov, [facility] [address] [id number] [address] [place] [address], [place] [address] Nov, [facility] [address] [id number] [address] [place] [address], [place] [address] Oct, [facility] [address] [id number] [address] [place] [address], [place] [address] Oct, [facility] [address] [id number] [address] [place] [address], [place] [address] Oct, [facility] [address] [id number] [address] [place] [address], [place] [address] Oct, [facility] [address] [id number] [address] [place] [address], [place] [address] Oct, [facility] [address] [id number] [address] [place] [address], [place] [address] Oct, [facility] [address] [id number] [address] [place] [address], [place] [address] Oct, [facility] [address] [id number] [address] [place] [address], [place] [address] Oct, [facility] [address] [id number] [address] [place] [address], [place] [address] Sep, [facility] [address] [id number] [address] [place] [address], [place] [address] Sep, [facility] [address] [id number] [address] [place] [address], [place] [address] Sep, [facility] [address] [id number] [address] [place] [address], [place] [address] Sep, [facility] [address] [id number] [address] [place] [address], [place] [address] Sep, [facility] [address] [id number] [address] [place] [address], [place] [address] Sep, [facility] [address] [id number] [address] [place] [address], [place] [address] Aug, [facility] [address] [id number] [address] [place] [address], [place] [address] Aug, [facility] [address] [id number] [address] [place] [address], [place] [address] Aug, [facility] [address] [id number] [address] [place] [address], [place] [address] Aug, [facility] [address] [id number] [address] [place] [address], [place] [address] Aug, [facility] [address] [id number] [address] [place] [address], [place] [address] Aug, [facility] [address] [id number] [address] [place] [address], [place] [address] Aug, [facility] [address] [id number] [address] [place] [address], [place] [address] Aug, [facility] [address] [id number] [address] [place] [address], [place] [address] Aug, [facility] [address] [id number] [address] [place] [address], [place] [address] Aug, [facility] [address] [id number] [address] [place] [address], [place] [address] Jul, [facility] [address] [id number] [address] [place] [address], [place] [address] Jul, [facility] [address] [id number] [address] [place] [address], [place] [address] Jul, [facility] [address] [id number] [address] [place] [address], [place] [address] Jul, [facility] [address] [id number] [facility] [place] [address] Jul, [facility] [address] [id number] [address] [place] [address], [place] [address] Jul, [facility] [address] [id number] [address] [place] [address], [place] [address] Jun, [facility] [address] [id number] [address] [place] [address], [place] [address] Jun, [facility] [address] [id number] [address] [place] [address], [place] [address] Jun, [facility] [address] [id number] [address] [place] [address], [place] [address] Jun, [facility] [address] [id number] [address] [place] [address], [place] [address] Jun, [facility] [address] [id number] [address] [place] [address], [place] [address] Jun, [facility] [address] [id number] [address] [place] [address], [place] [address] May, [facility] [address] [id number] [address] [place] [address], [place] [address] May, [facility] [address] [id number] [address] [place] [address], [place] [address] May, [facility] [address] [id number] [address] [place] [address], [place] [address] May, [facility] [address] [id number] [address] [place] [address], [place] [address] May, [facility] [address] [id number] [address] [place] [address], [place] [address] Apr, [facility] [address] [id number] [address] [place] [address], [place] [address] Apr, [facility] [address] [id number] [address] [place] [address], [place] [address] Apr, [facility] [address] [id number] [address] [place] [address], [place] [address] Apr, [facility] [address] [id number] [address] [place] [address], [place] [address] March, [facility] [address] [id number] [address] [place] [address], [place] [address] March, [facility] [address] [id number] [address] [place] [address], [place] [address] March, [facility] [address] [id number] [address] [place] [address], [place] [address] March, [facility] [address] [id number] [address] [place] [address], [place] [address] March, [facility] [address] [id number] [address] [place] [address], [place] [address] March, [facility] [address] [id number] [address] [place] [address], [place] [address] Feb, [facility] [address] [id number] [address] [place] [address], [place] [address] Feb, [facility] [address] [id number] [address] [place] [address], [place] [address] Feb, [facility] [address] [id number] [address] [place] [address], [place] [address] Feb, [facility] [address] [id number] [address] [place] [address], [place] [address] Feb, [facility] [address] [id number] [address] [place] [address], [place] [address] Feb, [facility] [address] [id number] [address] [place] [address], [place] [address] Feb, [facility] [address] [id number] [address] [place] [address], [place] [address] Feb, [facility] [address] [id number] [address] [place] [address], [place] [address] Jan, [facility] [address] [id number] [address] [place] [address], [place] [address] Jan, [facility] [address] [id number] [address] [place] [address], [place] [address] Jan, [facility] [address] [id number] [address] [place] [address], [place] [address] Jan, [facility] [address] [id number] [address] [place] [address], [place] [address] Jan, [facility] [address] [id number] [address] [place] [address], [place] [address] Jan, [facility] [address] [id number] [address] [place] [address], [place] [address] Dec, [facility] [address] [id number] [address] [place] [address], [place] [address] Dec, [facility] [address] [id number] [address] [place] [address], [place] [address] Nov, [facility] [address] [id number] [address] [place] [address], [place] [address] Nov, [facility] [address] [id number] [address] [place] [address], [place] [address] Nov, [facility] [address] [id number] [address] [place] [address], [place] [address] Nov, [facility] [address] [id number] [address] [place] [address], [place] [address] Nov, [facility] [address] [id number] [address] [place] [address], [place] [address] Nov, [facility] [address] [id number] [address] [place] [address], [place] [address] Nov, [facility] [address] [id number] [address] [place] [address], [place] [address] Nov, [facility] [address] [id number] [address] [place] [address], [place] [address] Nov, [facility] [address] [id number] [address] [place] [address], [place] [address] Nov, [facility] [address] [id number] [address] [place] [address], [place] [address] Nov, [facility] [address] [id number] [address] [place] [address], [place] [address] Nov, [facility] [address] [id number] [address] [place] [address], [place] [address] Nov, [facility] [address] [id number] [address] [place] [address], [place] [address] Nov, [facility] [address] [id number] [address] [place] [address], [place] [address] Nov, [facility] [address] [id number] [address] [place] [address], [place] [address] Oct, [facility] [address] [id number] [address] [place] [address], [place] [address] Oct, [facility] [address] [id number] [address] [place] [address], [place] [address] Oct, [facility] [address] [id number] [address] [place] [address], [place] [address] Oct, [facility] [address] [id number] [address] [place] [address], [place] [address] Oct, [facility] [address] [id number] [address] [place] [address], [place] [address] Oct, [facility] [address] [id number] [address] [place] [address], [place] [address] Oct, [facility] [address] [id number] [address] [place] [address], [place] [address] Oct, [facility] [address] [id number] [address] [place] [address], [place] [address] Oct, [facility] [place] [address] [facility] [place] [id number] [address] [address] Aug, [facility] [place] [address] [facility] [place] [id number] [address] [address] Aug, IMMUNIZATIONS No Known Immunizations SOCIAL HISTORY Never Assessed REASON FOR VISIT controlled med refill PLAN OF CARE VITAL SIGNS MEDICATIONS Medication Instructions Dosage Frequency Start Date End Date Duration S tatus MS Contin 15 mg Orally every 12 hrs 1 tablet 12h Jul, 28 days Active Clonazepam 0.5 MG Orally twice a day 1 tablet as needed for anxiety 12h Feb, 28 days Active Clonazepam 1 MG Orally Once a day 1 tablet at bedtime 24h Sep 24 days Active Oxycodone HCl 10 mg Orally [...] by Dr. Troy Michelle pain specialist in [place], [place] Medical History Chronic low back pain Medical History depression Medical History anxiety Medical History Panic attacks Medical History Vitamin B 12 deficiency r/t gastric bypa ss Medical History Low back injections 11/2012, 06/2013 Medical History Thrombocytosis Surgical History tonsillectomy Surgical History gastric bypass--2003-in [facility] aGene Unsure of Dr's name. No longer in [...]
--- OUTSIDE RECORDS SUMMARY | 2020-06-19 02:17 | XMS REPORT ---
Author Author Mahsa MITCHELL Organization [facility] Address [address] [place] [address] Care Team Providers Care Field Court Researcher Name Role Phone LIVE MITCHELL Unavailable PROBLEMS Type Condition ICD9-CM Code YSK11-CO Code Onset Dates Condition S tatus SNOMED Code Problem Chronic prescription opiate use Z79.899 Active 534247747 Problem Allergic rhinitis J30.9 Active 61 799683 Problem Bilateral low back pain, with sciatica presence unspecifie d M54.5 Active 852080738 Problem Cannabis abuse F12.10 Active 76209 009 Problem CKD (chronic kidney disease) stage 3, GFR 30-59 ml/min N18.3 Active 924108244 Problem GERD (gastroesophageal reflux disease) K21.9 Active 023856156 Problem Fibromyalgia M79.7 Active 2443459 7 Problem Drug induced constipation K59.03 Acti ve [id number] Problem Chronic obstructive pulmonary disease, unspecified COPD ty pe J44.9 Active 79926500 Problem Primary insomnia F51.01 Active 193 439823 Problem Anxiety F41.9 Active 95070544 Problem Other constipation K59.09 Active 1 03287920648643 Problem Chronic pain syndrome G89.4 Active 449616838 Problem Major depressive disorder, recurrent episode, un specified severity F33.9 Active 60811735 Problem Hyperlipidemia, unspecified hyperlipidemia E78.5 Active 47134924 Problem Essential hypertension I10 Active 75541568 Problem B12 deficiency E53.8 Active 44859 4004 Problem Atherosclerosis of [place] co ronary artery of [place] heart without angina pectoris I25.10 Active 7794065743852 Problem Chronic prescription benzodiazepine use Z79.899 Active 759500229 ALLERGIES No Information ENCOUNTERS Encounter Location Date Diagnosis [facility] [address] [facility] [id number] [address] [place] [address] Aug, [facility] [address] [facility] [id number] [address] [place] [address] Aug, Cannabis abuse F12.10 and Co ntrolled substance agreement terminated Z91.[address] [address] Jul, Chronic pain syndrome G89.4 ; Bilateral low back pain, with sciatica presence unspecified M54.5 ; Chronic prescription opiate use Z79.899 ; Essential hypertension I10 ; Hyperlipidemia, unspecified hyperlipidemia E78.5 ; CKD (chronic kidney disease) stage 3, GFR 30-59 ml/min N18.3 and Allergic rhinitis J30.9 [place] [address] [address] Jul, Chronic pain syndrome G89.4 and Anxiety F41.9 [place] [address] [address] Jul, Screening for breast cancer Z12.31 and Major depressive disorder, recurrent episode, unspecified severity F33.9 [place] [address] [address] Jun, Chronic pain syndrome G89.4 and Anxiety F41.[address] [address] May, Chronic pain syndrome G89.4 and Anxiety F41.9 [place] [address] [address] Apr, Anxiety F41.[address] [address] Apr, Chronic prescription opiate use Z79.899 ; Chronic pain syndrome G89.4 ; Essential hypertension I10 ; Allergic rhinitis J30.9 and CKD (chronic kidney disease) stage 3, GFR 30-59 ml/min N18.3 [place] [address] [place] [id number] [place] [address] Apr, [place] [address] [address] March, Anxiety F41.9 and Chronic pa in syndrome G89.4 [place] [address] [address] March, CKD (chronic kidney disease) stage 3, GFR 30-59 ml/min N18.3 ; B12 deficiency E53.8 and Hyperlipidemia, unspecified hyperlipidemia E78.5 [place] [address] [address] March, Anxiety F41.9 and Chronic pa in syndrome G89.4 [place] [address] [address] Feb, Anxiety F41.9 and Chronic pa in syndrome G89.4 [place] [address] [address] Jan, B12 deficiency E53.8 [place] [address] [address] Jan, [place] [address] [address] Jan, Anxiety F41.9 ; Chronic pain syndrome G89.4 and Essential hypertension I10 [place] [address] [address] Jan, CKD (chronic kidney disease) stage 3, [...] Subacromial bursitis of right shoulder joint M75.51 [place] [address] [address] Dec, Essential hypertension I10 [place] [address] [address] Dec, Chronic pain syndrome G89.4 [facility] [address] [facility] [id number] [address] [place] [address] Dec, Chronic pain syndrome G89.4 [facility] [address] [facility] [id number] [address] [place] [address] Nov, [facility] [address] [facility] [id number] [address] [place] [address] Nov, Chronic pain syndrome G89.4 and Anxiety F41.9 [facility] [address] [facility] [id number] [address] [place] [address] Oct, Chronic pain syndrome G89.4 ; Other constipation K59.09 and Chronic prescription opiate use Z79.899 [place] [address] [facility] [id number] [address] [place] [address] Oct, Chronic pain syndrome G89.4 and Anxiety F41.9 [facility] [address] [facility] [id number] [address] [place] [address] Sep, Essential hypertension I10 [facility] [address] [facility] [id number] [address] [place] [address] 16 Sep, 2017 Chronic pain syndrome G89.4 and Anxiety F41.9 [facility] [address] [facility] [id number] [address] [place] [address] Aug, Chronic pain syndrome G89.4 and Anxiety F41.9 [facility] [address] [facility] [id number] [address] [place] [address] Jul, Essential hypertension I10 [facility] [address] [facility] [id number] [address] [place] [address] Jul, Chronic obstructive pulmonar y disease, unspecified COPD type J44.9 [facility] [address] [facility] [id number] [address] [place] [address] Jul, Chronic pain syndrome G89.4 and Anxiety F41.9 [place] [address] [facility] [id number] [address] [place] [address] 13 Jul, 2017 Chronic pain syndrome G89.4 ; Essential hypertension I10 ; Fibromyalgia M79.7 ; CKD (chronic kidney disease) stage 3, GFR 30-59 ml/min N18.3 ; Subacromial bursitis, right M75.51 and Goals of care, co unseling/discussion Z71.89 [place] [address] [place] [id number] [address] [place] [address] Jun, Chronic pain syndrome G89.4 and Anxiety F41.9 [place] [id number] [address] [place] [address] May, Chronic pain syndrome G89.4 and Anxiety F41.9 [place] [address] [place] [id number] [address] [place] [address] Apr, Chronic pain syndrome G89.4 and Anxiety F41.9 [place] [id number] [place] [address] Apr, Drug induced constipation K5 9.03 ; Chronic pain syndrome G89.4 and CKD (chronic kidney disease) stage 3, GFR 30-59 ml/min N18.3 [place] [address] [place] [id number] [address] [place] [address] 02 Apr, 2017 Chronic pain syndrome G89.4 and Anxiety F41.9 [place] [address] [place] [id number] [address] [place] [address] March, Chronic pain syndrome G89.4 and Anxiety F41.9 [place] [address] [place] [id number] [address] [place] [address] March, Decreased GFR R94.4 [place] [address] [facility] [id number] [address] [place] [address] Feb, [place] [address] [place] [id number] [address] [place] [address] Feb, Chronic pain syndrome G89.4 and Anxiety F41.9 [facility] [address] [id number] [address] [place] [address] Jan, Decreased GFR R94.4 [facility] [address] [facility] [id number] [address] [place] [address] Jan, Decreased GFR R94.4 [facility] [address] [facility] [id number] [address] [place] [address] Jan, Allergic rhinitis J30.9 ; Es sential hypertension I10 ; Major depressive disorder, recurrent episode, unspecified severity F33.9 and Primary insomnia F51.01 [facility] [address] [id number] [address] [place] [address] Jan, Acute right-sided thoracic b ack pain M54.6 ; Subacromial bursitis of right shoulder joint M75.51 ; Chronic pain syndrome G89.4 and Anxiety F41.9 [facility] [address] [facility] [id number] [address] [place] [address] Jan, Decreased GFR R94.4 [facility] [address] [facility] [id number] [address] [place] [address] Dec, Decreased GFR R94.4 [facility] [address] [facility] [id number] [address] [place] [address] Dec, Decreased GFR R94.4 [facility] [address] [facility] [id number] [address] [place] [address] Dec, Decreased GFR R94.4 [facility] [address] [facility] [id number] [address] [place] [address] Dec, Decreased GFR R94.4 [facility] [address] [facility] [id number] [address] [place] [address] Dec, Anxiety F41.9 and Bilateral low back pain, with sciatica presence unspecified M54.5 [facility] [address] [facility] [id number] [address] [place] [address] Dec, Thrombocytosis D47.3 ; Hyper lipidemia, unspecified hyperlipidemia E78.5 ; Need for hepatitis C screening test Z11.59 and B12 deficiency E53.8 [place] [address] [place] [id number] [address] [place] [address] 13 Nov, 2016 Need for hepatitis C screeni ng test Z11.59 [place] [address] [place] [id number] [place] [address] Nov, Anxiety F41.9 and Bilateral low back pain, with sciatica presence unspecified M54.5 [place] [address] [place] [id number] [address] [place] [address] Oct, Bilateral low back pain, wit h sciatica presence unspecified M54.5 ; Chronic prescription opiate use Z79.899 ; Anxiety F41.9 ; Essential hypertension I10 ; Hyperlipidemia, unspecified hyperlipidemia E78.5 ; Health care maintenance Z00.00 and Thrombocytosis D47.3 [place] [id number] [place] [address] Sep, [place] [address] [place] [id number] [address] [place] [address] Sep, [place] [address] [place] [id number] [address] [place] [address] Aug, [place] [address] [place] [id number] [address] [place] [address] Jul, B12 deficiency E53.8 [place] [address] [place] [id number] [address] [place] [address] Jul, [place] [address] [place] [id number] [address] [place] [address] Jul, Essential hypertension I10 ; Chronic pain syndrome G89.4 ; Anxiety F41.9 ; Screening for breast cancer Z12.39 ; Atherosclerosis of [place] coronary artery of [place] heart without angina pectoris I25.10 ; Major depressive disorder, recurrent episode, unspecified severity F33.9 ; Primary insomnia F51.01 and Allergic rhinitis J30.9 [place] [address] [facility] [id number] [address] [place] [address] Jun, [facility] [address] [facility] [id number] [address] [place] [address] Jun, Leg wound, right, initial en counter S81.801A and Encounter for immunization Z23 [facility] [address] [facility] [id number] [address] [place] [address] Jun, Open wound of right ear, uns pecified open wound type, initial encounter S01.301A [facility] [address] [facility] [id number] [address] [place] [address] May, B12 deficiency E53.8 [facility] [address] [facility] [id number] [address] [place] [address] May, [facility] [address] [facility] [id number] [address] [place] [address] May, [facility] [address] [facility] [id number] [address] [place] [address] May, Chronic pain syndrome G89.4 ; Chronic prescription opiate use Z79.899 ; Allergic rhinitis J30.9 ; Essential hypertension I10 and Non-healing skin lesion L98.9 [facility] [address] [facility] [id number] [address] [place] [address] Apr, [facility] [address] [facility] [id number] [address] [place] [address] March, [facility] [address] [facility] [id number] [address] [place] [address] Feb, [facility] [address] [facility] [id number] [address] [place] [address] Feb, [facility] [address] [facility] [id number] [address] [place] [address] Feb, Chronic pain syndrome G89.4 ; Anxiety F41.9 ; B12 deficiency E53.8 ; Allergic rhinitis J30.9 ; Fibromyalgia M79.7 ; Actinic keratosis L57.0 ; Skin rash R21 ; Open wound of right ear, unspecified open wound type, initial encounter S01.301A ; Subacromial bursitis, right M75.51 ; GERD (gastroesophageal reflux disease) K21.9 and Chronic obstructive pulmonary disease, unspecified COPD type J44.9 [facility] [address] [place] [id number] [address] [place] [address] 30 Jan, 2016 [facility] [address] [facility] [id number] [address] Jan, Essential hypertension I10 [facility] [address] [address] Jan, [facility] [address] [address] Jan, [facility] [address] [address] Jan, [facility] [address] [address] Dec, [facility] [address] [address] Dec, Essential hypertension I10 [facility] [address] [address] Dec, [facility] [address] [address] Dec, B12 deficiency E53.8 and Ess ential hypertension I10 [facility] [address] [facility] [id number] [address] [place] [address] Dec, [facility] [address] [address] Nov, Right shoulder pain M25.511 [place] [address] [address] Nov, Right shoulder pain M25.511 [place] [address] [address] 18 Nov, 2015 Essential hypertension I10 a nd B12 deficiency E53.8 [place] [address] [address] 14 Nov, 2015 Major depressive disorder, r ecurrent episode, unspecified severity F33.9 ; Anxiety F41.9 ; Chronic pain syndrome G89.4 ; Essential hypertension I10 ; Hyperlipidemia, unspecified hyperlipidemia E78.5 ; Chronic prescription opiate use Z79.899 ; Allergic rhinitis J30.9 ; B12 deficiency E53.8 and Right shoulder pain M25.511 [place] [address] [address] Oct, [place] [address] [address] Oct, [place] [address] [address] Sep, [place] [address] [address] Sep, [place] [address] [address] Aug, [facility] [address] [address] Aug, [place] [address] [address] Aug, [facility] [address] [address] Aug, Other constipation K59.09 ; Hyperlipidemia, unspecified hyperlipidemia E78.5 ; Essential hypertension I10 ; Primary insomnia F51.01 ; Anxiety F41.9 ; Chronic pain syndrome G89.4 ; Right shoulder pain M25.511 and Acute cystitis without hematuria N30.00 [place] [address] [address] Jul, [facility] [address] [id number] [address] [place] [address] Jul, [facility] [address] [facility] [id number] [address] [place] [address] Jun, [facility] [address] [facility] [id number] [address] [place] [address] Jun, [facility] [address] [facility] [id number] [address] [place] [address] Jun, [facility] [address] [id number] [address] [place] [address] May, [facility] [address] [facility] [id number] [address] [place] [address] May, Other chronic pain 338.29 ; Hypertension 401.9 and Constipation due to opioid therapy 564.09 [facility] [address] [facility] [id number] [address] [place] [address] 17 May, 2015 [facility] [address] [facility] [id number] [address] [place] [address] May, [facility] [address] [facility] [id number] [address] [place] [address] Apr, [facility] [address] [facility] [id number] [address] [place] [address] 17 Apr, 2015 Unspecified essential hypert ension 401.9 [facility] [address] [facility] [id number] [address] [place] [address] 16 Apr, 2015 [facility] [address] [id number] [address] [place] [address] 16 Apr, 2015 [facility] [address] [facility] [id number] [address] [place] [address] Apr, [facility] [address] [facility] [id number] [address] [place] [address] 16 Apr, 2015 [facility] [address] [facility] [id number] [address] [place] [address] Apr, [facility] [place] [address] [id number] [address] [place] [address] Apr, [facility] [place] [address] [id number] [address] [place] [address], [place] [address] March, Unspecified essential hypert ension 401.9 [facility] [place] [address] [id number] [address] [place] [address], [place] [address] March, [facility] [address] [id number] [address] [place] [address] March, [facility] [place] [address] [id number] [address] [place] [address], [place] [address] Feb, [facility] [place] [address] [id number] [address] [place] [address] Feb, [facility] [address] [id number] [address] [place] [address] Jan, [facility] [place] [address] [id number] [address] [place] [address] Jan, [facility] [place] [address] [id number] [address] [place] [address] Jan, [facility] [place] [address] [id number] [address] [place] [address] Jan, [facility] [place] [address] [id number] [address] [place] [address] Jan, [facility] [address] [id number] [address] [place] [address] Jan, [facility] [address] [id number] [address] [place] [address] Jan, [facility] [address] [id number] [address] [place] [address] Dec, [facility] [place] [address] [id number] [address] [place] [address] Dec, [facility] [address] [id number] [address] [place] [address], [place] [address] 13 Dec, 2014 [facility] [address] [id number] [address] [place] [address], [place] [address] Nov, [facility] [address] [id number] [address] [place] [address], [place] [address] 16 Nov, 2014 [facility] [address] [id number] [address] [place] [address], [place] [address] Oct, [facility] [address] [id number] [address] [place] [address], [place] [address] Oct, [facility] [address] [id number] [address] [place] [address], [place] [address] Oct, [facility] [address] [id number] [address] [place] [address], [place] [address] Oct, [facility] [address] [id number] [address] [place] [address], [place] [address] Oct, [facility] [address] [id number] [address] [place] [address], [place] [address] Oct, [facility] [address] [id number] [address] [place] [address], [place] [address] Oct, [facility] [address] [id number] [address] [place] [address], [place] [address] Oct, [facility] [address] [id number] [address] [place] [address], [place] [address] Sep, [facility] [address] [id number] [address] [place] [address], [place] [address] Sep, [facility] [address] [id number] [address] [place] [address], [place] [address] Sep, [facility] [address] [id number] [address] [place] [address], [place] [address] Sep, [facility] [address] [id number] [address] [place] [address], [place] [id number] Sep, [facility] [address] [id number] [address] [place] [address], [place] [id number] Sep, [facility] [address] [id number] [address] [place] [address], [place] [address] Aug, [facility] [address] [id number] [address] [place] [address], [place] [address] Aug, [facility] [address] [id number] [address] [place] [address], [place] [address] Aug, [facility] [address] [id number] [address] [place] [address], [place] [address] Aug, [facility] [address] [id number] [address] [place] [address], [place] [id number] Aug, [facility] [address] [id number] [address] [place] [address], [place] [address] Aug, [facility] [address] [id number] [address] [place] [address], [place] [id number] Aug, [facility] [address] [id number] [address] [place] [address], [place] [address] Aug, [facility] [address] [id number] [address] [place] [address], [place] [address] Aug, [facility] [address] [id number] [address] [place] [address], [place] [address] Aug, [facility] [address] [id number] [address] [place] [address], [place] [id number] Jul, [facility] [address] [id number] [address] [place] [address], [place] [address] Jul, [facility] [address] [id number] [address] [place] [address], [place] [address] Jul, [facility] [address] [id number] [address] [place] [address], [place] [address] Jul, [facility] [address] [id number] [facility] [place]note 2[facility] [address] Jul, [facility] [address] [id number] [address] [place] [address], [place] [address] Jul, [facility] [address] [id number] [address] [place] [address], [place] [address] Jun, [facility] [address] [id number] [address] [place] [address], [place] [address] Jun, [facility] [address] [id number] [address] [place] [address], [place] [address] Jun, [facility] [address] [id number] [address] [place] [address], [place] [address] Jun, [facility] [address] [address] [id number] [address] [place] [address], [place] [address] Jun, [facility] [address] [id number] [address] [place] [address], [place] [address] Jun, [facility] [address] [id number] [address] [place] [address], [place] [address] May, [facility] [address] [id number] [address] [place] [address], [place] [address] May, [facility] [address] [id number] [address] [place] [address], [place] [address] May, [facility] [address] [id number] [address] [place] [address], [place] [address] May, [facility] [address] [id number] [address] [place] [address], [place] [address] May, [facility] [address] [id number] [address] [place] [address], [place] [address] Apr, [facility] [address] [id number] [address] [place] [address], [place] [address] Apr, [facility] [address] [id number] [address] [place] [address], [place] [address] Apr, [facility] [address] [id number] [address] [place] [address], [place] [address] Apr, [facility] [address] [id number] [address] [place] [address], [place] [address] March, [facility] [address] [id number] [address] [place] [address], [place] [address] March, [facility] [address] [id number] [address] [place] [address], [place] [address] March, [facility] [address] [id number] [address] [place] [address], [place] [address] March, [facility] [address] [id number] [address] [place] [address], [place] [address] March, [facility] [address] [id number] [address] [place] [address], [place] [address] March, [facility] [address] [id number] [address] [place] [address], [place] [address] Feb, [facility] [address] [id number] [address] [place] [address], [place] [address] Feb, [facility] [address] [id number] [address] [place] [address], [place] [address] Feb, [facility] [address] [id number] [address] [place] [address], [place] [address] Feb, [facility] [address] [id number] [address] [place] [address], [place] [address] Feb, [facility] [address] [id number] [address] [place] [address], [place] [address] Feb, [facility] [address] [id number] [address] [place] [address], [place] [address] Feb, [facility] [address] [id number] [address] [place] [address], [place] [address] Feb, [facility] [address] [id number] [address] [place] [address], [place] [address] Jan, [facility] [address] [id number] [facility] [place] [address] Jan, [facility] [address] [id number] [address] [place] [address], [place] [address] Jan, [facility] [address] [id number] [address] [place] [address], [place] [address] Jan, [facility] [address] [id number] [address] [place] [address], [place] [address] Jan, [facility] [address] [id number] [address] [place] [address], [place] [address] Jan, [facility] [address] [id number] [address] [place] [address], [place] [address] Dec, [facility] [address] [id number] [address] [place] [address], [place] [address] Dec, [facility] [address] [id number] [address] [place] [address], [place] [address] Nov, [facility] [address] [id number] [address] [place] [address], [place] [address] Nov, [facility] [address] [id number] [address] [place] [address], [place] [address] Nov, [facility] [address] [id number] [address] [place] [address], [place] [address] Nov, [facility] [address] [id number] [address] [place] [address], [place] [address] Nov, [facility] [address] [id number] [address] [place] [address], [place] [address] Nov, [facility] [address] [id number] [address] [place] [address], [place] [address] Nov, [facility] [address] [id number] [address] [place] [address], [place] [address] Nov, [facility] [address] [id number] [address] [place] [address], [place] [address] Nov, [facility] [address] [id number] [address] [place] [address], [place] [address] Nov, [facility] [address] [id number] [address] [place] [address], [place] [address] Nov, [facility] [address] [id number] [address] [place] [address], [place] [address] Nov, [facility] [address] [id number] [address] [place] [address], [place] [address] Nov, [facility] [address] [id number] [address] [place] [address], [place] [address] Nov, [facility] [address] [id number] [address] [place] [address], [place] [address] Nov, [facility] [address] [id number] [address] [place] [address], [place] [address] Oct, [facility] [address] [id number] [address] [place] [address], [place] [address] Oct, [facility] [address] [id number] [address] [place] [address], [place] [address] Oct, [facility] [address] [id number] [address] [place] [address], [place] [address] Oct, [facility] [address] [id number] [address] [place] [address], [place] [address] Oct, [facility] [address] [id number] [address] [place] [address], [place] [address] Oct, [facility] [address] [id number] [address] [place] [address], [place] [address] Oct, [facility] [address] [id number] [address] [place] [address], [place] [address] Oct, [facility] [address] [id number] [address] [place] [address], [place] [address] Oct, [facility] [address] [facility] [id number] [address] [address] Aug, [facility] [address] [facility] [id number] [address] [address] Aug, IMMUNIZATIONS No Known Immunizations SOCIAL HISTORY Never Assessed REASON FOR VISIT Controlled Substance Taper PLAN OF CARE VITAL SIGNS MEDICATIONS Unknown Medications RESULTS No Results PROCEDURES No Known procedures INSTRUCTIONS MEDICATIONS ADMINISTERED No Known Medications MEDICAL (GENERAL) HISTORY Type Description Date Medical History hypertension Medical History asthma Medical History Arthritis Medical History Hypoglycemia Medical History Heart Cath 11/05/2013 Medical History herniated disc--Seen by Dr. Troy Michelle pain specialist in [place], [place] Medical History Chronic low back pain [...]
--- OUTSIDE RECORDS SUMMARY | 2020-06-19 02:17 | XMS REPORT ---
Author Author Mahsa ROBERTS Organization [facility] Address [address] [place] [address] Care Team Providers Care Card Sorter Name Role Phone ARMANDO ASHVIN Unavailable PROBLEMS Type Condition ICD9-CM Code FON24-EP Code Onset Dates Condition S tatus SNOMED Code Problem Chronic prescription opiate use Z79.899 Active 027747521 Problem B12 deficiency E53.8 Active 44426 4004 Problem Bilateral low back pain, with sciatica presence unspecifie d M54.5 Active 509844993 Problem CKD (chronic kidney disease) stage 3, GFR 30-59 ml/min N18.3 Active 802891043 Problem Drug induced constipation K59.03 Acti ve [id number] Problem GERD (gastroesophageal reflux disease) K21.9 Active 550912606 Problem Allergic rhinitis J30.9 Active 61 463937 Problem Chronic obstructive pulmonary disease, unspecified COPD ty pe J44.9 Active 93077072 Problem Fibromyalgia M79.7 Active 1304179 7 Problem Chronic pain syndrome G89.4 Active 161929664 Problem Primary insomnia F51.01 Active 193 544205 Problem Other constipation K59.09 Active 1 [id number] Problem Atherosclerosis of [place] co ronary artery of [place] heart without angina pectoris I25.10 Active 5954996122332 Problem Major depressive disorder, recurrent episode, un specified severity F33.9 Active 50081458 Problem Anxiety F41.9 Active 55916030 Problem Hyperlipidemia, unspecified hyperlipidemia E78.5 Active 50486692 Problem Essential hypertension I10 Active 57012109 Problem Chronic prescription benzodiazepine use Z79.899 Active 782185023 ALLERGIES No Information ENCOUNTERS Encounter Location Date Diagnosis [facility] [address] [facility] [id number] [address] [place] [phone] Aug, [facility] [address] [facility] [id number] [address] [place] [address] Jul, Chronic pain syndrome G89.4 ; Bilateral low back pain, with sciatica presence unspecified M54.5 ; Chronic prescription opiate use Z79.899 ; Essential hypertension I10 ; Hyperlipidemia, unspecified hyperlipidemia E78.5 ; CKD (chronic kidney disease) stage 3, GFR 30-59 ml/min N18.3 and Allergic rhinitis J30.9 [facility] [address] [facility] [id number] [address] [place] [address] Jul, Chronic pain syndrome G89.4 and Anxiety F41.9 [place] [address] [facility] [id number] [address] [place] [address] Jul, Screening for breast cancer Z12.31 and Major depressive disorder, recurrent episode, unspecified severity F33.9 [place] [address] [facility] [id number] [address] [place] [address] Jun, Chronic pain syndrome G89.4 and Anxiety F41.9 [place] [address] [facility] [id number] [address] [place] [address] May, Chronic pain syndrome G89.4 and Anxiety F41.9 [place] [address] [id number] [address] [place] [address] Apr, Anxiety F41.9 [place] [address] [facility] [id number] [address] [place] [address] Apr, Chronic prescription opiate use Z79.899 ; Chronic pain syndrome G89.4 ; Essential hypertension I10 ; Allergic rhinitis J30.9 and CKD (chronic kidney disease) stage 3, GFR 30-59 ml/min N18.3 [facility] [address] [facility] [id number] [address] [place] [address] Apr, [place] [address] [facility] [id number] [address] [place] [address] March, Anxiety F41.9 and Chronic pa in syndrome G89.4 [facility] [address] [facility] [id number] [address] [place] [address] March, CKD (chronic kidney disease) stage 3, GFR 30-59 ml/min N18.3 ; B12 deficiency E53.8 and Hyperlipidemia, unspecified hyperlipidemia E78.5 [place] [address] [place] [id number] [place] [address] March, Anxiety F41.9 and Chronic pa in syndrome G89.4 [place] [address] [place] [id number] [address] [place] [address] Feb, Anxiety F41.9 and Chronic pa in syndrome G89.4 [place] [address] [place] [id number] [address] [place] [address] Jan, B12 deficiency E53.8 [place] [address] [address] Jan, [place] [address] [address] Jan, Anxiety F41.9 ; Chronic pain syndrome G89.4 and Essential hypertension I10 [place] [address] [place] [id number] [address] [place] [address] Jan, CKD (chronic kidney disease) stage 3, [...] Subacromial bursitis of right shoulder joint M75.51 [place] [address] [place] [id number] [address] [place] [address] Dec, Essential hypertension I10 [place] [address] [place] [id number] [address] [place] [address] Dec, Chronic pain syndrome G89.4 [place] [address] [place] [id number] [place] [address] Dec, Chronic pain syndrome G89.4 [facility] [address] [facility] [id number] [address] [place] [address] Nov, [facility] [address] [facility] [id number] [address] [place] [address] Nov, Chronic pain syndrome G89.4 and Anxiety F41.9 [facility] [address] [facility] [id number] [address] [place] [address] Oct, Chronic pain syndrome G89.4 ; Other constipation K59.09 and Chronic prescription opiate use Z79.899 [facility] [address] [facility] [id number] [address] [place] [address] Oct, Chronic pain syndrome G89.4 and Anxiety F41.9 [place] [address] [facility] [id number] [address] [place] [address] Sep, Essential hypertension I10 [place] [address] [facility] [id number] [address] [place] [address] Sep, Chronic pain syndrome G89.4 and Anxiety F41.9 [place] [address] [facility] [id number] [address] [place] [address] Aug, Chronic pain syndrome G89.4 and Anxiety F41.9 [place] [address] [facility] [id number] [address] [place] [address] 28 Jul, 2017 Essential hypertension I10 [place] [address] [facility] [id number] [address] [place] [phone] 22 Jul, 2017 Chronic obstructive pulmonar y disease, unspecified COPD type J44.9 [facility] [address] [facility] [id number] [address] [place] [address] 21 Jul, 2017 Chronic pain syndrome G89.4 and Anxiety F41.9 [facility] [address] [facility] [id number] [address] [place] [id number] 13 Jul, 2017 Chronic pain syndrome G89.4 ; Essential hypertension I10 ; Fibromyalgia M79.7 ; CKD (chronic kidney disease) stage 3, GFR 30-59 ml/min N18.3 ; Subacromial bursitis, right M75.51 and Goals of care, co unseling/discussion Z71.89 [facility] [address] [facility] [id number] [address] [place] [address] Jun, Chronic pain syndrome G89.4 and Anxiety F41.9 [facility] [address] [facility] [id number] [address] [place] [address] May, Chronic pain syndrome G89.4 and Anxiety F41.9 [place] [address] [facility] [id number] [address] [place] [address] Apr, Chronic pain syndrome G89.4 and Anxiety F41.9 [place] [address] [facility] [id number] [address] [place] [address] Apr, Drug induced constipation K5 9.03 ; Chronic pain syndrome G89.4 and CKD (chronic kidney disease) stage 3, GFR 30-59 ml/min N18.3 [place] [address] [facility] [id number] [address] [place] [address] Apr, Chronic pain syndrome G89.4 and Anxiety F41.9 [place] [address] [facility] [id number] [address] [place] [address] March, Chronic pain syndrome G89.4 and Anxiety F41.9 [place] [address] [facility] [id number] [address] [place] [address] March, Decreased GFR R94.4 [facility] [address] [facility] [id number] [address] [place] [address] Feb, [place] [address] [facility] [id number] [address] [place] [address] Feb, Chronic pain syndrome G89.4 and Anxiety F41.9 [place] [address] [facility] [id number] [address] [place] [address] Jan, Decreased GFR R94.4 [place] [address] [facility] [id number] [address] [place] [address] Jan, Decreased GFR R94.4 [place] [address] [place] [id number] [address] [place] [phone] Jan, Allergic rhinitis J30.9 ; Es sential hypertension I10 ; Major depressive disorder, recurrent episode, unspecified severity F33.9 and Primary insomnia F51.01 [place] [address] [address] Jan, Acute right-sided thoracic b ack pain M54.6 ; Subacromial bursitis of right shoulder joint M75.51 ; Chronic pain syndrome G89.4 and Anxiety F41.9 [place] [address] [address] Jan, Decreased GFR R94.4 [place] [address] [address] Dec, Decreased GFR R94.4 [place] [address] [address] Dec, Decreased GFR R94.4 [place] [address] [address] Dec, Decreased GFR R94.4 [place] [address] [address] Dec, Decreased GFR R94.4 [place] [address] [place] [id number] [place] [address] Dec, Anxiety F41.9 and Bilateral low back pain, with sciatica presence unspecified M54.5 [place] [address] [address] Dec, Thrombocytosis D47.3 ; Hyper lipidemia, unspecified hyperlipidemia E78.5 ; Need for hepatitis C screening test Z11.59 and B12 deficiency E53.8 [place] [address] [address] Nov, Need for hepatitis C screeni ng test Z11.59 [place] [address] [address] Nov, Anxiety F41.9 and Bilateral low back pain, with sciatica presence unspecified M54.5 [facility] [address] [address] Oct, Bilateral low back pain, wit h sciatica presence unspecified M54.5 ; Chronic prescription opiate use Z79.899 ; Anxiety F41.9 ; Essential hypertension I10 ; Hyperlipidemia, unspecified hyperlipidemia E78.5 ; Health care maintenance Z00.00 and Thrombocytosis D47.3 [place] [address] [address] Sep, [place] [address] [address] Sep, [facility] [address] [address] Aug, [facility] [address] [address] Jul, B12 deficiency E53.8 [facility] [address] [address] Jul, [place] [address] [address] Jul, Essential hypertension I10 ; Chronic pain syndrome G89.4 ; Anxiety F41.9 ; Screening for breast cancer Z12.39 ; Atherosclerosis of [place] coronary artery of [place] heart without angina pectoris I25.10 ; Major depressive disorder, recurrent episode, unspecified severity F33.9 ; Primary insomnia F51.01 and Allergic rhinitis J30.9 [facility] [address] [place] [id number] [address] [place] [address] Jun, [facility] [address] [address] Jun, Leg wound, right, initial en counter S81.801A and Encounter for immunization Z23 [facility] [address] [facility] [id number] [address] [place] [address] Jun, Open wound of right ear, uns pecified open wound type, initial encounter S01.301A [facility] [address] [facility] [id number] [address] [place] [address] May, B12 deficiency E53.8 [facility] [address] [facility] [id number] [address] [place] [address] May, [facility] [address] [facility] [id number] [address] [place] [address] May, [facility] [address] [facility] [id number] [address] [place] [address] May, Chronic pain syndrome G89.4 ; Chronic prescription opiate use Z79.899 ; Allergic rhinitis J30.9 ; Essential hypertension I10 and Non-healing skin lesion L98.9 [facility] [address] [facility] [id number] [address] [place] [address] Apr, [facility] [address] [facility] [id number] [address] [place] [address] March, [facility] [address] [facility] [id number] [address] [place] [address] Feb, [facility] [address] [facility] [id number] [address] [place] [address] Feb, [facility] [address] [facility] [id number] [address] [place] [address] Feb, Chronic pain syndrome G89.4 ; Anxiety F41.9 ; B12 deficiency E53.8 ; Allergic rhinitis J30.9 ; Fibromyalgia M79.7 ; Actinic keratosis L57.0 ; Skin rash R21 ; Open wound of right ear, unspecified open wound type, initial encounter S01.301A ; Subacromial bursitis, right M75.51 ; GERD (gastroesophageal reflux disease) K21.9 and Chronic obstructive pulmonary disease, unspecified COPD type J44.9 [facility] [address] [id number] [address] [place] [phone] 30 Jan, 2016 [facility] [address] [id number] [address] [place] [address] Jan, Essential hypertension I10 [facility] [address] [id number] [address] [place] [address] Jan, [facility] [address] [id number] [address] [place] [phone] Jan, [facility] [address] [id number] [address] [place] [phone] Jan, [facility] [address] [id number] [address] [place] [phone] Dec, [facility] [address] [facility] [id number] [address] [place] [address] Dec, Essential hypertension I10 [facility] [address] [id number] [address] [place] [address] Dec, [facility] [address] [facility] [id number] [address] [place] [address] Dec, B12 deficiency E53.8 and Ess ential hypertension I10 [facility] [address] [facility] [id number] [address] [place] [address] Dec, [facility] [address] [facility] [id number] [address] [place] [address] Nov, Right shoulder pain M25.511 [facility] [address] [facility] [id number] [address] [place] [address] Nov, Right shoulder pain M25.511 [facility] [address] [facility] [id number] [address] [place] [address] Nov, Essential hypertension I10 a nd B12 deficiency E53.8 [facility] [id number] [place] [address] Nov, Major depressive disorder, r ecurrent episode, unspecified severity F33.9 ; Anxiety F41.9 ; Chronic pain syndrome G89.4 ; Essential hypertension I10 ; Hyperlipidemia, unspecified hyperlipidemia E78.5 ; Chronic prescription opiate use Z79.899 ; Allergic rhinitis J30.9 ; B12 deficiency E53.8 and Right shoulder pain M25.511 [facility] [address] [address] Oct, [facility] [address] [place] [id number] [place] [address] Oct, [facility] [address] [address] Sep, [facility] [address] [place] [id number] [place] [address] Sep, [facility] [address] [address] Aug, [facility] [address] [address] Aug, [facility] [address] [address] Aug, [facility] [address] [address] Aug, Other constipation K59.09 ; Hyperlipidemia, unspecified hyperlipidemia E78.5 ; Essential hypertension I10 ; Primary insomnia F51.01 ; Anxiety F41.9 ; Chronic pain syndrome G89.4 ; Right shoulder pain M25.511 and Acute cystitis without hematuria N30.00 [facility] [address] [address] Jul, [facility] [address] [place] [id number] [place] [address] Jul, [facility] [address] [address] Jun, [facility] [address] [id number] [address] [place] [phone] Jun, [facility] [address] [id number] [address] [place] [address] Jun, [facility] [address] [id number] [address] [place] [address] May, [facility] [address] [id number] [address] [place] [address] May, Other chronic pain 338.29 ; Hypertension 401.9 and Constipation due to opioid therapy 564.09 [facility] [address] [id number] [address] [place] [address] May, [facility] [address] [id number] [address] [place] [address] May, [facility] [address] [id number] [address] [place] [address] Apr, [facility] [address] [id number] [address] [place] [id number] 17 Apr, 2015 Unspecified essential hypert ension 401.9 [facility] [address] [id number] [address] [place] [address] Apr, [facility] [address] [id number] [address] [place] [address] Apr, [facility] [address] [id number] [address] [place] [address] Apr, [facility] [address] [id number] [address] [place] [address] Apr, [facility] [address] [id number] [address] [place] [address] Apr, [facility] [address] [id number] [address] [place] [address] Apr, [facility] [address] [id number] [address] [place] [address] March, Unspecified essential hypert ension 401.9 [facility] [address] [id number] [address] [place] [address] March, [facility] [address] [id number] [address] [place] [address] March, [facility] [address] [id number] [address] [place] [phone] Feb, [facility] [address] [id number] [address] [place] [address] Feb, [facility] [address] [id number] [address] [place] [phone] Jan, [facility] [address] [id number] [address] [place] [phone] Jan, [facility] [address] [id number] [address] [place] [phone] Jan, [facility] [address] [id number] [address] [place] [phone] 17 Jan, 2015 [facility] [address] [id number] [address] [place] [address] Jan, [facility] [address] [id number] [address] [place] [phone] Jan, [facility] [address] [id number] [address] [place] [address] Jan, [facility] [address] [id number] [address] [place] [phone] Dec, [facility] [address] [id number] [address] [place] [phone] Dec, [facility] [address] [id number] [address] [place] [id number] 13 Dec, 2014 [facility] [address] [id number] [address] [place] [phone] Nov, [facility] [address] [id number] [address] [place] [address], [place] [address] Nov, [facility] [address] [id number] [address] [place] [address], [place] [address] Oct, [facility] [address] [id number] [address] [place] [address], [place] [address] Oct, [facility] [address] [id number] [address] [place] [address], [place] [address] Oct, [facility] [address] [id number] [address] [place] [address], [place] [address] Oct, [facility] [address] [id number] [address] [place] [address], [place] [address] Oct, [facility] [address] [id number] [address] [place] [address], [place] [address] Oct, [facility] [address] [id number] [address] [place] [address], [place] [address] Oct, [facility] [address] [id number] [address] [place] [address], [place] [address] Oct, [facility] [address] [id number] [address] [place] [address], [place] [address] Sep, [facility] [address] [id number] [address] [place] [address], [place] [address] Sep, [facility] [address] [id number] [address] [place] [address], [place] [address] Sep, [facility] [address] [id number] [address] [place] [address], [place] [address] Sep, [facility] [address] [id number] [address] [place] [address], [place] [address] Sep, [facility] [address] [id number] [address] [place] [address], [place] [address] Sep, [facility] [address] [id number] [address] [place] [address], [place] [address] Aug, [facility] [address] [id number] [address] [place] [address], [place] [address] Aug, [facility] [address] [id number] [address] [place] [address], [place] [address] Aug, [facility] [address] [id number] [address] [place] [address], [place] [address] Aug, [facility] [address] [id number] [address] [place] [address], [place] [address] Aug, [facility] [address] [id number] [address] [place] [address], [place] [address] Aug, [facility] [address] [id number] [address] [place] [address], [place] [address] Aug, [facility] [address] [id number] [address] [place] [address], [place] [address] Aug, [facility] [address] [id number] [address] [place] [address], [place] [address] Aug, [facility] [address] [id number] [address] [place] [address], [place] [address] Aug, [facility] [address] [id number] [address] [place] [address], [place] [address] Jul, [facility] [address] [id number] [address] [place] [address], [place] [address] 22 Jul, 2013 [facility] [address] [id number] [address] [place] [address], [place] [address] 12 Jul, 2013 [facility] [address] [id number] [address] [place] [address], [place] [address] 12 Jul, 2013 [facility] [address] [id number] [address] [place] [address], [place] [address] 10 Jul, 2013 [facility] [address] [id number] [address] [place] [address], [place] [address] 10 Jul, 2013 [facility] [address] [id number] [address] [address] Jun, [facility] [address] [id number] [facility] [place] [address] Jun, [facility] [address] [id number] [facility] [place] [address] Jun, [facility] [address] [id number] [facility] [place] [address] Jun, [facility] [address] [id number] [address] [place] [address], [place] [address] Jun, [facility] [address] [id number] [address] [place] [address], [place] [address] Jun, [facility] [address] [id number] [address] [place] [address], [place] [address] May, [facility] [address] [id number] [address] [place] [address], [place] [address] May, [facility] [address] [id number] [address] [place] [address], [place] [address] May, [facility] [address] [id number] [address] [place] [address], [place] [address] May, [facility] [address] [address] [id number] [address] [place] [address], [place] [address] May, [facility] [address] [id number] [address] [place] [address], [place] [address] Apr, [facility] [address] [id number] [address] [place] [address], [place] [address] Apr, [facility] [address] [id number] [address] [place] [address], [place] [address] Apr, [facility] [address] [id number] [address] [place] [address], [place] [address] Apr, [facility] [address] [id number] [address] [place] [address], [place] [address] March, [facility] [address] [id number] [facility] [place] [address] March, [facility] [address] [id number] [address] [place] [address], [place] [address] March, [facility] [address] [id number] [address] [place] [address], [place] [address] March, [facility] [address] [id number] [address] [place] [address], [place] [address] March, [facility] [address] [id number] [address] [place] [address], [place] [address] March, [facility] [address] [id number] [address] [place] [address], [place] [address] Feb, [facility] [address] [id number] [address] [place] [address], [place] [address] Feb, [facility] [address] [id number] [address] [place] [address], [place] [address] Feb, [facility] [address] [id number] [address] [place] [address], [place] [address] Feb, [facility] [address] [id number] [address] [place] [address], [place] [address] Feb, [facility] [address] [id number] [address] [place] [address], [place] [address] Feb, [facility] [address] [id number] [address] [place] [address], [place] [address] Feb, [facility] [address] [id number] [address] [place] [address], [place] [address] Feb, [facility] [address] [id number] [address] [place] [address], [place] [address] Jan, [facility] [address] [id number] [address] [place] [address], [place] [address] Jan, [facility] [address] [id number] [facility] [place] [address] 11 Jan, 2014 [facility] [address] [id number] [address] [place] [address], [place] [address] Jan, [facility] [address] [id number] [address] [place] [address], [place] [address] Jan, [facility] [address] [id number] [address] [place] [address], [place] [address] Jan, [facility] [address] [id number] [address] [place] [address], [place] [address] Dec, [facility] [address] [id number] [address] [place] [address], [place] [address] Dec, [facility] [address] [id number] [address] [place] [address], [place] [address] Nov, [facility] [address] [id number] [address] [place] [address], [place] [address] Nov, [facility] [address] [id number] [address] [place] [address], [place] [address] Nov, [facility] [address] [id number] [address] [place] [address], [place] [address] Nov, [facility] [address] [id number] [address] [place] [address], [place] [address] Nov, [facility] [address] [id number] [address] [place] [address], [place] [address] Nov, [facility] [address] [id number] [address] [place] [address], [place] [address] Nov, [facility] [address] [id number] [address] [place] [address], [place] [address] Nov, [facility] [address] [id number] [address] [place] [address], [place] [address] Nov, [facility] [address] [id number] [address] [place] [address], [place] [address] Nov, [facility] [address] [id number] [address] [place] [address], [place] [address] Nov, [facility] [address] [id number] [address] [place] [address], [place] [address] Nov, [facility] [address] [id number] [address] [place] [address], [place] [address] Nov, [facility] [address] [id number] [address] [place] [address], [place] [address] Nov, [facility] [address] [id number] [address] [place] [address], [place] [address] Nov, [facility] [address] [id number] [address] [place] [address], [place] [address] Oct, [facility] [address] [id number] [address] [place] [address], [place] [address] Oct, [facility] [address] [id number] [address] [place] [address], [place] [address] Oct, [facility] [address] [id number] [address] [place] [address], [place] [address] Oct, [facility] [address] [id number] [address] [place] [address], [place] [address] Oct, [facility] [address] [id number] [address] [place] [address], [place] [address] Oct, [facility] [address] [id number] [address] [place] [address] Oct, [facility] [address] [id number] [address] [place] [address], [place] [address] Oct, [facility] [address] [id number] [address] [place] [address], [place] [address] Oct, [facility] [address] [id number] [address] [place] [address], [place] [address] Aug, [facility] [address] [id number] [address] [place] [address], [place] [address] Aug, IMMUNIZATIONS No Known Immunizations SOCIAL HISTORY Never Assessed REASON FOR VISIT Mammogram PLAN OF CARE VITAL SIGNS MEDICATIONS Medication Instructions Dosage Frequency Start Date End Date Duration S norberto Fluoxetine HCl 10 MG Orally Once a day 1 capsule in the morning 24h 90 Active RESULTS Name Result Date Reference Range Mammogram, Bilateral Screening 2018-08-13 PROCEDURES No Known procedures INSTRUCTIONS MEDICATIONS ADMINISTERED No Known Medications MEDICAL (GENERAL) HISTORY Type Description Date Medical History hypertension Medical History asthma Medical History Arthritis Medical History Hypoglycemia Medical History Heart Cath 11/05/2013 Medical History herniated disc--Seen by Dr. Troy Michelle pain specialist in [place], [place] Medical History Chronic low back pain [...]
--- OUTSIDE RECORDS SUMMARY | 2020-06-19 02:18 | XMS REPORT ---
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 Name Role Phone ARMANDO ASHVIN Unavailable PROBLEMS Type Condition ICD9-CM Code [id number] Code Onset Dates Condition S tatus SNOMED Code Problem Chronic prescription opiate use Z79.899 Active 984131649 Problem B12 deficiency E53.8 Active 08147 4004 Problem Bilateral low back pain, with sciatica presence unspecifie d M54.5 Active 186111484 Problem CKD (chronic kidney disease) stage 3, GFR 30-59 ml/min N18.3 Active 436845935 Problem Drug induced constipation K59.03 Acti ve [id number] Problem GERD (gastroesophageal reflux disease) K21.9 Active 416977158 Problem Allergic rhinitis J30.9 Active 61 585931 Problem Chronic obstructive pulmonary disease, unspecified COPD ty pe J44.9 Active 71017684 Problem Fibromyalgia M79.7 Active 3509843 7 Problem Chronic pain syndrome G89.4 Active 311522194 Problem Primary insomnia F51.01 Active 193 436999 Problem Other constipation K59.09 Active 1 [id number] Problem Atherosclerosis of jena co ronary artery of jena heart without angina pectoris I25.10 Active 6612804387938 Problem Major depressive disorder, recurrent episode, un specified severity F33.9 Active 87951613 Problem Anxiety F41.9 Active 64482542 Problem Hyperlipidemia, unspecified hyperlipidemia E78.5 Active 59511747 Problem Essential hypertension I10 Active 46066710 Problem Chronic prescription benzodiazepine use Z79.899 Active 889854526 ALLERGIES No Information ENCOUNTERS Encounter Location Date Diagnosis [facility] [address] [facility] [id number] [address] [place] [phone] Jul, [facility] [address] [facility] [id number] [address] [place] [address] Jun, Chronic pain syndrome G89.4 and Anxiety F41.9 [facility] [address] [facility] [id number] [address] [place] [address] May, Chronic pain syndrome G89.4 and Anxiety F41.9 [facility] [address] [facility] [id number] [address] [place] [phone] Apr, Anxiety F41.9 [facility] [address] [facility] [id number] [address] [place] [address] Apr, Chronic prescription opiate use Z79.899 ; Chronic pain syndrome G89.4 ; Essential hypertension I10 ; Allergic rhinitis J30.9 and CKD (chronic kidney disease) stage 3, GFR 30-59 ml/min N18.3 [place] [address] [facility] [id number] [address] [place] [address] Apr, [place] [address] [facility] [id number] [address] [place] [address] March, Anxiety F41.9 and Chronic pa in syndrome G89.4 [facility] [address] [facility] [id number] [address] [place] [phone] March, CKD (chronic kidney disease) stage 3, GFR 30-59 ml/min N18.3 ; B12 deficiency E53.8 and Hyperlipidemia, unspecified hyperlipidemia E78.5 [place] [address] [facility] [id number] [address] [place] [phone] March, Anxiety F41.9 and Chronic pa in syndrome G89.4 [facility] [address] [id number] [address] [place] [address] Feb, Anxiety F41.9 and Chronic pa in syndrome G89.4 [facility] [address] [facility] [id number] [address] [place] [address] Jan, B12 deficiency E53.8 [facility] [address] [facility] [id number] [address] [place] [phone] Jan, [facility] [address] [facility] [id number] [address] [place] [address] Jan, Anxiety F41.9 ; Chronic pain syndrome G89.4 and Essential hypertension I10 [place] [address] [address] Jan, CKD (chronic kidney disease) stage 3, [...] Subacromial bursitis of right shoulder joint M75.51 [place] [address] [address] Dec, Essential hypertension I10 [place] [address] [address] 15 Dec, 2017 Chronic pain syndrome G89.4 [place] [address] [address] Dec, Chronic pain syndrome G89.4 [place] [address] [address] Nov, [place] [address] [address] Nov, Chronic pain syndrome G89.4 and Anxiety F41.9 [place] [address] [place] [id number] [address] [place] [address] Oct, Chronic pain syndrome G89.4 ; Other constipation K59.09 and Chronic prescription opiate use Z79.899 [place] [address] [place] [id number] [address] [place] [address] Oct, Chronic pain syndrome G89.4 and Anxiety F41.9 [place] [address] [address] Sep, Essential hypertension I10 [place] [address] [facility] [id number] [address] [place] [address] Sep, Chronic pain syndrome G89.4 and Anxiety F41.9 [place] [address] [facility] [id number] [address] [place] [address] Aug, Chronic pain syndrome G89.4 and Anxiety F41.9 [place] [address] [place] [id number] [address] [place] [address] Jul, Essential hypertension I10 [place] [address] [place] [id number] [place] [phone] Jul, Chronic obstructive pulmonar y disease, unspecified COPD type J44.9 [place] [address] [place] [id number] [address] [place] [address] Jul, Chronic pain syndrome G89.4 and Anxiety F41.9 [place] [address] [place] [id number] [address] [place] [address] Jul, Chronic pain syndrome G89.4 ; Essential hypertension I10 ; Fibromyalgia M79.7 ; CKD (chronic kidney disease) stage 3, GFR 30-59 ml/min N18.3 ; Subacromial bursitis, right M75.51 and Goals of care, co unseling/discussion Z71.89 [place] [address] [place] [id number] [address] [place] [address] Jun, Chronic pain syndrome G89.4 and Anxiety F41.9 [place] [address] [facility] [id number] [address] [place] [address] May, Chronic pain syndrome G89.4 and Anxiety F41.9 [place] [address] [place] [id number] [address] [place] [address] Apr, Chronic pain syndrome G89.4 and Anxiety F41.9 [place] [address] [place] [id number] [address] [place] [phone] 14 Martin, 2017 Drug induced constipation K5 9.03 ; Chronic pain syndrome G89.4 and CKD (chronic kidney disease) stage 3, GFR 30-59 ml/min N18.3 [facility] [address] [id number] [address] [place] [phone] 02 Apr, 2017 Chronic pain syndrome G89.4 and Anxiety F41.9 [facility] [address] [id number] [address] [place] [address] March, Chronic pain syndrome G89.4 and Anxiety F41.9 [facility] [address] [id number] [address] [place] [address] March, Decreased GFR R94.4 [place] [address] [id number] [address] [place] [phone] Feb, [place] [address] [facility] [id number] [address] [place] [address] Feb, Chronic pain syndrome G89.4 and Anxiety F41.9 [place] [address] [id number] [address] [place] [address] Jan, Decreased GFR R94.4 [place] [address] [id number] [address] [place] [address] Jan, Decreased GFR R94.4 [place] [address] [facility] [id number] [address] [place] [address] Jan, Allergic rhinitis J30.9 ; Es sential hypertension I10 ; Major depressive disorder, recurrent episode, unspecified severity F33.9 and Primary insomnia F51.01 [facility] [address] [id number] [address] [place] [address] Jan, Acute right-sided thoracic b ack pain M54.6 ; Subacromial bursitis of right shoulder joint M75.51 ; Chronic pain syndrome G89.4 and Anxiety F41.[address] [place] [id number] [facility] [id number] [address] [place] [address] Jan, Decreased GFR R94.4 [place] [address] [place] [id number] [address] [place] [address] Dec, Decreased GFR R94.4 [place] [address] [address] Dec, Decreased GFR R94.4 [place] [address] [address] Dec, Decreased GFR R94.4 [place] [address] [address] Dec, Decreased GFR R94.4 [place] [address] [address] Dec, Anxiety F41.9 and Bilateral low back pain, with sciatica presence unspecified M54.5 [place] [address] [address] Dec, Thrombocytosis D47.3 ; Hyper lipidemia, unspecified hyperlipidemia E78.5 ; Need for hepatitis C screening test Z11.59 and B12 deficiency E53.8 [place] [address] [address] Nov, Need for hepatitis C screeni ng test Z11.59 [place] [address] [address] Nov, Anxiety F41.9 and Bilateral low back pain, with sciatica presence unspecified M54.5 [place] [address] [place] [id number] [address] [place] [address] Oct, Bilateral low back pain, wit h sciatica presence unspecified M54.5 ; Chronic prescription opiate use Z79.899 ; Anxiety F41.9 ; Essential hypertension I10 ; Hyperlipidemia, unspecified hyperlipidemia E78.5 ; Health care maintenance Z00.00 and Thrombocytosis D47.3 [place] [address] [address] Sep, [place] [address] [facility] [id number] [address] [place] [address] Sep, [facility] [address] [place] [address] Aug, [facility] [address] [place] [id number] [address] [place] [address] Jul, B12 deficiency E53.8 [facility] [address] [address] Jul, [place] [address] [address] Jul, Essential hypertension I10 ; Chronic pain syndrome G89.4 ; Anxiety F41.9 ; Screening for breast cancer Z12.39 ; Atherosclerosis of jena coronary artery of jena heart without angina pectoris I25.10 ; Major depressive disorder, recurrent episode, unspecified severity F33.9 ; Primary insomnia F51.01 and Allergic rhinitis J30.9 [facility] [address] [place] [address] Jun, [facility] [address] [place] [address] Jun, Leg wound, right, initial en counter S81.801A and Encounter for immunization Z23 [place] [address] [place] [address] Jun, Open wound of right ear, uns pecified open wound type, initial encounter S01.301A [facility] [address] [facility] [id number] [address] [place] [address] May, B12 deficiency E53.8 [place] [address] [place] [address] May, [facility] [address] [place] [id number] [address] [place] [address] May, [place] [address] [place] [address] May, Chronic pain syndrome G89.4 ; Chronic prescription opiate use Z79.899 ; Allergic rhinitis J30.9 ; Essential hypertension I10 and Non-healing skin lesion L98.9 [facility] [address] [address] Apr, [facility] [address] [address] March, [facility] [address] [address] Feb, [facility] [address] [address] Feb, [facility] [address] [address] Feb, Chronic pain syndrome G89.4 ; Anxiety F41.9 ; B12 deficiency E53.8 ; Allergic rhinitis J30.9 ; Fibromyalgia M79.7 ; Actinic keratosis L57.0 ; Skin rash R21 ; Open wound of right ear, unspecified open wound type, initial encounter S01.301A ; Subacromial bursitis, right M75.51 ; GERD (gastroesophageal reflux disease) K21.9 and Chronic obstructive pulmonary disease, unspecified COPD type J44.9 [facility] [address] [address] Jan, [facility] [address] [address] Jan, Essential hypertension I10 [facility] [address] [address] Jan, [facility] [address] [address] Jan, [facility] [address] [address] Jan, [facility] [address] [address] Dec, [facility] [address] [address] Dec, Essential hypertension I10 [facility] [address] [place] [id number] [place] [address] Dec, [facility] [address] [address] Dec, B12 deficiency E53.8 and Ess ential hypertension I10 [facility] [address] [address] Dec, [facility] [address] [address] Nov, Right shoulder pain M25.511 [facility] [address] [address] Nov, Right shoulder pain M25.511 [facility] [address] [address] Nov, Essential hypertension I10 a nd B12 deficiency E53.8 [facility] [address] [address] Nov, Major depressive disorder, r ecurrent episode, unspecified severity F33.9 ; Anxiety F41.9 ; Chronic pain syndrome G89.4 ; Essential hypertension I10 ; Hyperlipidemia, unspecified hyperlipidemia E78.5 ; Chronic prescription opiate use Z79.899 ; Allergic rhinitis J30.9 ; B12 deficiency E53.8 and Right shoulder pain M25.511 [facility] [address] [address] Oct, [facility] [address] [address] Oct, [facility] [address] [address] Sep, [facility] [address] [address] Sep, [facility] [address] [facility] [id number] [address] [place] [address] Aug, [facility] [address] [facility] [id number] [address] [place] [address] Aug, [facility] [address] [facility] [id number] [address] [place] [address] Aug, [facility] [address] [facility] [id number] [address] [place] [address] Aug, Other constipation K59.09 ; Hyperlipidemia, unspecified hyperlipidemia E78.5 ; Essential hypertension I10 ; Primary insomnia F51.01 ; Anxiety F41.9 ; Chronic pain syndrome G89.4 ; Right shoulder pain M25.511 and Acute cystitis without hematuria N30.00 [facility] [address] [place] [id number] [address] [place] [id number] Jul, [facility] [address] [place] [id number] [address] [place] [address] Jul, [facility] [address] [facility] [id number] [address] [place] [address] Jun, [facility] [address] [place] [id number] [address] [place] [address] Jun, [facility] [address] [facility] [id number] [address] [place] [address] Jun, [facility] [address] [facility] [id number] [address] [place] [address] May, [facility] [address] [facility] [id number] [address] [place] [address] May, Other chronic pain 338.29 ; Hypertension 401.9 and Constipation due to opioid therapy 564.09 [facility] [address] [facility] [id number] [address] [place] [address] May, [facility] [address] [facility] [id number] [address] [place] [phone] May, [facility] [address] [id number] [address] [place] [address] 17 Apr, 2015 [facility] [address] [id number] [address] [place] [phone] 17 Apr, 2015 Unspecified essential hypert ension 401.9 [facility] [address] [id number] [address] [place] [id number] 16 Apr, 2015 [facility] [address] [id number] [address] [place] [address] Apr, [facility] [address] [id number] [address] [place] [address] Apr, [facility] [address] [id number] [address] [place] [address] Apr, [facility] [address] [id number] [address] [place] [address] Apr, [facility] [address] [id number] [address] [place] [address] Apr, [facility] [address] [id number] [address] [place] [address] March, Unspecified essential hypert ension 401.9 [facility] [address] [id number] [address] [place] [phone] March, [facility] [address] [id number] [address] [place] [address] March, [facility] [address] [id number] [address] [place] [phone] 14 Feb, 2015 [facility] [address] [id number] [address] [place] [phone] Feb, [facility] [address] [id number] [address] [place] [address] Jan, [facility] [address] [id number] [address] [place] [address] Jan, [facility] [address] [id number] [facility] [place] [address] 17 Jan, 2015 [facility] [address] [id number] [address] [place] [address], [place] [address] 17 Jan, 2014 [facility] [address] [id number] [address] [place] [address], [place] [address] 13 Jan, 2015 [facility] [address] [id number] [address] [place] [address], [place] [address] Jan, [facility] [address] [id number] [address] [place] [address], [place] [address] Jan, [facility] [address] [id number] [address] [place] [address], [place] [address] 16 Dec, 2014 [facility] [address] [id number] [address] [place] [address], [place] [address] 16 Dec, 2014 [facility] [address] [id number] [address] [place] [address], [place] [address] 13 Dec, 2014 [facility] [address] [id number] [address] [place] [address], [place] [address] Nov, [facility] [address] [id number] [address] [place] [address], [place] [address] Nov, [facility] [address] [id number] [address] [place] [address], [place] [address] 16 Oct, 2014 [facility] [address] [id number] [address] [place] [address], [place] [address] Oct, [facility] [address] [id number] [address] [place] [address], [place] [address] Oct, [facility] [address] [id number] [address] [place] [address], [place] [address] Oct, [facility] [address] [id number] [address] [place] [address], [place] [address] 08 Oct, 2014 [facility] [address] [id number] [address] [place] [address], [place] [address] Oct, [facility] [address] [id number] [address] [place] [address], [place] [address] Oct, [facility] [address] [id number] [address] [place] [address], [place] [address] Oct, [facility] [address] [id number] [address] [place] [address], [place] [address] Sep, [facility] [address] [id number] [address] [place] [address], [place] [address] Sep, [facility] [address] [id number] [address] [place] [address], [place] [address] Sep, [facility] [address] [id number] [address] [place] [address], [place] [address] Sep, [facility] [address] [id number] [address] [place] [address], [place] [address] Sep, [facility] [address] [id number] [address] [place] [address], [place] [address] Sep, [facility] [address] [id number] [address] [place] [address], [place] [address] Aug, [facility] [address] [id number] [address] [place] [address], [place] [address] Aug, [facility] [address] [id number] [address] [place] [address], [place] [address] Aug, [facility] [address] [id number] [address] [place] [address], [place] [address] Aug, [facility] [address] [id number] [address] [place] [address], [place] [address] Aug, [facility] [address] [id number] [address] [place] [address], [place] [address] Aug, [facility] [address] [id number] [address] [place] [address], [place] [address] Aug, [facility] [address] [id number] [address] [place] [address], [place] [address] 14 Aug, 2014 [facility] [address] [id number] [address] [place] [address], [place] [address] Aug, [facility] [address] [id number] [address] [place] [address], [place] [address] Aug, [facility] [address] [id number] [address] [place] [address], [place] [address] Jul, [facility] [address] [id number] [address] [place] [address], [place] [address] Jul, [facility] [address] [id number] [address] [place] [address], [place] [address] Jul, [facility] [address] [id number] [address] [place] [address], [place] [address] Jul, [facility] [address] [id number] [address] [place] [address], [place] [address] Jul, [facility] [address] [id number] [address] [place] [address], [place] [address] Jul, [facility] [address] [id number] [address] [place] [address], [place] [address] Jun, [facility] [address] [id number] [address] [place] [address], [place] [address] Jun, [facility] [address] [id number] [address] [place] [address], [place] [address] Jun, [facility] [address] [id number] [address] [place] [address], [place] [address] Jun, [facility] [address] [id number] [address] [place] [address], [place] [address] Jun, [facility] [address] [id number] [address] [place] [address], [place] [address] Jun, [facility] [address] [id number] [address] [place] [address], [place] [address] May, [facility] [address] [id number] [facility] [place] [address] May, [facility] [address] [id number] [address] [place] [address], [place] [address] May, [facility] [address] [id number] [address] [place] [address], [place] [address] May, [facility] [address] [id number] [address] [place] [address], [place] [address] May, [facility] [address] [id number] [address] [place] [address], [place] [address] Apr, [facility] [address] [id number] [address] [place] [address], [place] [address] Apr, [facility] [address] [id number] [address] [place] [address], [place] [address] Apr, [facility] [address] [id number] [address] [place] [address], [place] [address] Apr, [facility] [address] [id number] [address] [place] [address], [place] [address] March, [facility] [address] [id number] [address] [place] [address], [place] [address] March, [facility] [address] [id number] [address] [place] [address], [place] [address] March, [facility] [address] [id number] [address] [place] [address], [place] [address] March, [facility] [address] [id number] [address] [place] [address], [place] [address] March, [facility] [address] [id number] [address] [place] [address], [place] [address] March, [facility] [address] [id number] [address] [place] [address], [place] [address] Feb, [facility] [address] [id number] [facility] [place] [address] 14 Feb, 2014 [facility] [address] [id number] [facility] [place] [address] Feb, [facility] [address] [id number] [facility] [place] [address] Feb, [facility] [address] [id number] [facility] [place] [address] Feb, [facility] [address] [id number] [address] [place] [address], [place] [address] Feb, [facility] [address] [id number] [address] [place] [address], [place] [address] Feb, [facility] [address] [id number] [address] [place] [address], [place] [address] Feb, [facility] [address] [id number] [address] [place] [address], [place] [address] Jan, [facility] [address] [id number] [address] [place] [address], [place] [address] Jan, [facility] [address] [id number] [address] [place] [address], [place] [address] Jan, [facility] [address] [id number] [address] [place] [address], [place] [address] Jan, [facility] [address] [id number] [address] [place] [address], [place] [address] Jan, [facility] [address] [id number] [address] [place] [address], [place] [address] Jan, [facility] [address] [id number] [address] [place] [address], [place] [address] Dec, [facility] [address] [id number] [address] [place] [address], [place] [address] Dec, [facility] [address] [id number] [address] [place] [address], [place] [address] Nov, [facility] [address] [id number] [facility] [place] [address] Nov, [facility] [address] [id number] [address] [place] [address], [place] [address] Nov, [facility] [address] [id number] [address] [place] [address], [place] [address] Nov, [facility] [address] [id number] [address] [place] [address], [place] [address] Nov, [facility] [address] [id number] [address] [place] [address], [place] [address] Nov, [facility] [address] [id number] [address] [place] [address], [place] [address] Nov, [facility] [address] [id number] [address] [place] [address], [place] [address] Nov, [facility] [address] [id number] [address] [place] [address], [place] [address] Nov, [facility] [address] [id number] [address] [place] [address], [place] [address] Nov, [facility] [address] [id number] [address] [place] [address], [place] [address] Nov, [facility] [address] [id number] [address] [place] [address], [place] [address] Nov, [facility] [address] [id number] [address] [place] [address], [place] [address] Nov, [facility] [address] [id number] [address] [place] [address], [place] [address] Nov, [facility] [address] [id number] [address] [place] [address], [place] [address] Nov, [facility] [address] [id number] [address] [place] [address], [place] [address] Oct, [facility] [address] [id number] [address] [place] [id number] Oct, [facility] [address] [id number] [address] [place] [id number] Oct, [facility] [address] [id number] [address] [place] [id number] Oct, [facility] [address] [id number] [address] [place] [id number] Oct, [facility] [address] [id number] [address] [place] [phone] Oct, [facility] [address] [id number] [address] [place] [id number] Oct, [facility] [address] [id number] [address] [place] [phone] Oct, [facility] [address] [id number] [address] [place] [phone] Oct, [facility] [address] [id number] [address] [place] [id number] Aug, [facility] [address] [id number] [address] [place] [phone] Aug, IMMUNIZATIONS No Known Immunizations SOCIAL HISTORY Never Assessed REASON FOR VISIT Controlled Med Refill PLAN OF CARE VITAL SIGNS MEDICATIONS Medication Instructions Dosage Frequency Start Date End Date Duration S tatus Clonazepam 0.5 MG Orally twice a day 1 tablet as needed for anxiety 12h Feb, 28 days Active Clonazepam 1 MG Orally Once a day 1 tablet at bedtime 24h 25 Sep 28 days Active RESULTS No Results PROCEDURES No Known procedures INSTRUCTIONS MEDICATIONS ADMINISTERED No Known Medications MEDICAL (GENERAL) HISTORY Type Description Date Medical History hypertension Medical History asthma Medical History Arthritis Medical History Hypoglycemia Medical History Heart Cath 11/05/2013 Medical History herniated disc--Seen by Dr. Troy Michelle pain specialist in [place], [place] Medical History Chronic low back pain [...]
--- OUTSIDE RECORDS SUMMARY | 2020-06-19 02:18 | XMS REPORT ---
Author Author Mahsa ROBERTS Organization [facility] Address [address] [place] [address] Care Team Providers Care Special Diet Cook Name Role Phone ARMANDO ASHVIN Unavailable PROBLEMS Type Condition ICD9-CM Code [id number] Code Onset Dates Condition S tatus SNOMED Code Problem Chronic prescription opiate use Z79.899 Active 713285585 Problem B12 deficiency E53.8 Active 19597 4004 Problem Bilateral low back pain, with sciatica presence unspecifie d M54.5 Active 542597501 Problem CKD (chronic kidney disease) stage 3, GFR 30-59 ml/min N18.3 Active 540726914 Problem Drug induced constipation K59.03 Acti ve [id number] Problem GERD (gastroesophageal reflux disease) K21.9 Active 402827916 Problem Allergic rhinitis J30.9 Active 61 729131 Problem Chronic obstructive pulmonary disease, unspecified COPD ty pe J44.9 Active 90545398 Problem Fibromyalgia M79.7 Active 5470697 7 Problem Chronic pain syndrome G89.4 Active 231863466 Problem Primary insomnia F51.01 Active 193 900729 Problem Other constipation K59.09 Active 1 [id number] Problem Atherosclerosis of [place] co ronary artery of [place] heart without angina pectoris I25.10 Active 5505289370145 Problem Major depressive disorder, recurrent episode, un specified severity F33.9 Active 33566915 Problem Anxiety F41.9 Active 85136458 Problem Hyperlipidemia, unspecified hyperlipidemia E78.5 Active 43248896 Problem Essential hypertension I10 Active 41437089 Problem Chronic prescription benzodiazepine use Z79.899 Active 711787827 ALLERGIES No Information ENCOUNTERS Encounter Location Date Diagnosis [facility] [address] [facility] [id number] [address] [place] [address] Jul, [facility] [address] [facility] [id number] [address] [place] [address] Jul, Chronic pain syndrome G89.4 [facility] [address] [place] [id number] [address] [place] [address] Jul, Screening for breast cancer Z12.31 and Major depressive disorder, recurrent episode, unspecified severity F33.9 [facility] [address] [facility] [id number] [address] [place] [address] Jun, Chronic pain syndrome G89.4 and Anxiety F41.9 [place] [address] [place] [id number] [place] [address] May, Chronic pain syndrome G89.4 and Anxiety F41.9 [place] [address] [address] Apr, Anxiety F41.9 [place] [address] [place] [id number] [place] [address] Apr, Chronic prescription opiate use Z79.899 ; Chronic pain syndrome G89.4 ; Essential hypertension I10 ; Allergic rhinitis J30.9 and CKD (chronic kidney disease) stage 3, GFR 30-59 ml/min N18.3 [place] [address] [address] Apr, [place] [address] [place] [id number] [place] [address] March, Anxiety F41.9 and Chronic pa in syndrome G89.4 [place] [address] [place] [id number] [address] [place] [address] March, CKD (chronic kidney disease) stage 3, GFR 30-59 ml/min N18.3 ; B12 deficiency E53.8 and Hyperlipidemia, unspecified hyperlipidemia E78.5 [place] [address] [place] [id number] [address] [place] [address] March, Anxiety F41.9 and Chronic pa in syndrome G89.4 [place] [address] [place] [id number] [address] [place] [address] Feb, Anxiety F41.9 and Chronic pa in syndrome G89.4 [place] [address] [place] [id number] [address] [place] [address] Jan, B12 deficiency E53.8 [place] [address] [place] [id number] [address] [place] [address] Jan, [place] [address] [address] Jan, Anxiety F41.9 ; Chronic pain syndrome G89.4 and Essential hypertension I10 [place] [address] [place] [id number] [address] [place] [address] Jan, CKD (chronic kidney disease) stage 3, [...] Subacromial bursitis of right shoulder joint M75.51 [place] [address] [address] Dec, Essential hypertension I10 [place] [address] [address] Dec, Chronic pain syndrome G89.4 [place] [address] [place] [id number] [address] [place] [address] Dec, Chronic pain syndrome G89.4 [place] [address] [place] [id number] [address] [place] [address] Nov, [place] [address] [address] Nov, Chronic pain syndrome G89.4 and Anxiety F41.9 [place] [address] [place] [id number] [place] [address] Oct, Chronic pain syndrome G89.4 ; Other constipation K59.09 and Chronic prescription opiate use Z79.899 [place] [address] [address] Oct, Chronic pain syndrome G89.4 and Anxiety F41.9 [place] [address] [address] Sep, Essential hypertension I10 [place] [address] [address] Sep, Chronic pain syndrome G89.4 and Anxiety F41.[address] [address] Aug, Chronic pain syndrome G89.4 and Anxiety F41.9 [place] [address] [address] Jul, Essential hypertension I10 [place] [address] [address] Jul, Chronic obstructive pulmonar y disease, unspecified COPD type J44.[address] [address] Jul, Chronic pain syndrome G89.4 and Anxiety F41.9 [place] [address] [address] 13 Jul, 2017 Chronic pain syndrome G89.4 ; Essential hypertension I10 ; Fibromyalgia M79.7 ; CKD (chronic kidney disease) stage 3, GFR 30-59 ml/min N18.3 ; Subacromial bursitis, right M75.51 and Goals of care, co unseling/discussion Z71.89 [place] [address] [place] [id number] [place] [address] Jun, Chronic pain syndrome G89.4 and Anxiety F41.9 [place] [address] [address] May, Chronic pain syndrome G89.4 and Anxiety F41.9 [facility] [address] [facility] [id number] [address] [place] [address] Apr, Chronic pain syndrome G89.4 and Anxiety F41.9 [facility] [address] [facility] [id number] [address] [place] [address] Apr, Drug induced constipation K5 9.03 ; Chronic pain syndrome G89.4 and CKD (chronic kidney disease) stage 3, GFR 30-59 ml/min N18.3 [facility] [address] [id number] [address] [place] [address] Apr, Chronic pain syndrome G89.4 and Anxiety F41.9 [facility] [address] [facility] [id number] [address] [place] [address] March, Chronic pain syndrome G89.4 and Anxiety F41.9 [place] [address] [facility] [id number] [address] [place] [address] March, Decreased GFR R94.4 [facility] [address] [facility] [id number] [address] [place] [address] Feb, [facility] [address] [facility] [id number] [address] [place] [address] Feb, Chronic pain syndrome G89.4 and Anxiety F41.9 [facility] [address] [facility] [id number] [address] [place] [address] Jan, Decreased GFR R94.4 [facility] [address] [facility] [id number] [address] [place] [address] Jan, Decreased GFR R94.4 [place] [address] [facility] [id number] [address] [place] [address] Jan, Allergic rhinitis J30.9 ; Es sential hypertension I10 ; Major depressive disorder, recurrent episode, unspecified severity F33.9 and Primary insomnia F51.01 [facility] [address] [facility] [id number] [address] [place] [address] Jan, Acute right-sided thoracic b ack pain M54.6 ; Subacromial bursitis of right shoulder joint M75.51 ; Chronic pain syndrome G89.4 and Anxiety F41.9 [place] [address] [place] [id number] [address] [place] [address] Jan, Decreased GFR R94.4 [place] [address] [facility] [id number] [place] [address] Dec, Decreased GFR R94.4 [place] [address] [facility] [id number] [place] [address] Dec, Decreased GFR R94.4 [place] [address] [place] [id number] [place] [address] Dec, Decreased GFR R94.4 [place] [address] [place] [id number] [place] [address] Dec, Decreased GFR R94.4 [place] [address] [place] [id number] [place] [address] Dec, Anxiety F41.9 and Bilateral low back pain, with sciatica presence unspecified M54.5 [place] [address] [address] Dec, Thrombocytosis D47.3 ; Hyper lipidemia, unspecified hyperlipidemia E78.5 ; Need for hepatitis C screening test Z11.59 and B12 deficiency E53.8 [place] [address] [address] Nov, Need for hepatitis C screeni ng test Z11.59 [place] [address] [address] Nov, Anxiety F41.9 and Bilateral low back pain, with sciatica presence unspecified M54.5 [place] [address] [place] [id number] [place] [address] Oct, Bilateral low back pain, wit h sciatica presence unspecified M54.5 ; Chronic prescription opiate use Z79.899 ; Anxiety F41.9 ; Essential hypertension I10 ; Hyperlipidemia, unspecified hyperlipidemia E78.5 ; Health care maintenance Z00.00 and Thrombocytosis D47.3 [facility] [address] [address] Sep, [place] [address] [address] Sep, [place] [address] [address] Aug, [address] [address] Jul, B12 deficiency E53.8 [place] [address] [address] Jul, [address] [address] Jul, Essential hypertension I10 ; Chronic pain syndrome G89.4 ; Anxiety F41.9 ; Screening for breast cancer Z12.39 ; Atherosclerosis of [place] coronary artery of [place] heart without angina pectoris I25.10 ; Major depressive disorder, recurrent episode, unspecified severity F33.9 ; Primary insomnia F51.01 and Allergic rhinitis J30.[address] [address] Jun, [facility] [address] [address] Jun, Leg wound, right, initial en counter S81.801A and Encounter for immunization Z23 [address] [address] Jun, Open wound of right ear, uns pecified open wound type, initial encounter S01.301A [address] [address] May, B12 deficiency E53.8 [facility] [address] [facility] [id number] [address] [place] [address] May, [facility] [address] [facility] [id number] [address] [place] [address] May, [facility] [address] [facility] [id number] [address] [place] [address] May, Chronic pain syndrome G89.4 ; Chronic prescription opiate use Z79.899 ; Allergic rhinitis J30.9 ; Essential hypertension I10 and Non-healing skin lesion L98.9 [facility] [address] [facility] [id number] [address] [place] [address] Apr, [facility] [address] [facility] [id number] [address] [place] [address] March, [facility] [address] [facility] [id number] [address] [place] [address] Feb, [facility] [address] [facility] [id number] [address] [place] [address] Feb, [facility] [address] [facility] [id number] [address] [place] [address] Feb, Chronic pain syndrome G89.4 ; Anxiety [...] COPD type J44.9 [facility] [address] [facility] [id number] [address] [place] [address] Jan, [facility] [address] [place] [id number] [address] [place] [address] Jan, Essential hypertension I10 [facility] [address] [facility] [id number] [address] [place] [address] Jan, [facility] [address] [facility] [id number] [address] [place] [id number] Jan, [facility] [address] [address] Jan, [facility] [address] [address] Dec, [facility] [address] [address] Dec, Essential hypertension I10 [place] [address] [address] Dec, [place] [address] [address] Dec, B12 deficiency E53.8 and Ess ential hypertension I10 [place] [address] [address] Dec, [facility] [address] [address] Nov, Right shoulder pain M25.511 [place] [address] [address] Nov, Right shoulder pain M25.511 [place] [address] [address] 18 Nov, 2015 Essential hypertension I10 a nd B12 deficiency E53.8 [place] [address] [address] 14 Nov, 2015 Major depressive disorder, r ecurrent episode, unspecified severity F33.9 ; Anxiety F41.9 ; Chronic pain syndrome G89.4 ; Essential hypertension I10 ; Hyperlipidemia, unspecified hyperlipidemia E78.5 ; Chronic prescription opiate use Z79.899 ; Allergic rhinitis J30.9 ; B12 deficiency E53.8 and Right shoulder pain M25.511 [place] [address] [address] Oct, [facility] [address] [id number] [address] [place] [address] Oct, [facility] [address] [id number] [address] [place] [address] Sep, [facility] [address] [facility] [id number] [address] [place] [address] Sep, [facility] [address] [id number] [address] [place] [address] Aug, [facility] [address] [id number] [address] [place] [address] Aug, [facility] [address] [id number] [address] [place] [address] Aug, [facility] [address] [facility] [id number] [address] [place] [address] Aug, Other constipation K59.09 ; Hyperlipidemia, unspecified hyperlipidemia E78.5 ; Essential hypertension I10 ; Primary insomnia F51.01 ; Anxiety F41.9 ; Chronic pain syndrome G89.4 ; Right shoulder pain M25.511 and Acute cystitis without hematuria N30.00 [facility] [address] [facility] [id number] [address] [place] [address] 16 Jul, 2015 [facility] [address] [facility] [id number] [address] [place] [address] Jul, [facility] [address] [id number] [address] [place] [address] Jun, [facility] [address] [id number] [address] [place] [address] Jun, [facility] [address] [id number] [address] [place] [address] Jun, [facility] [address] [facility] [id number] [address] [place] [address] May, [facility] [address] [id number] [address] [place] [address] May, Other chronic pain 338.29 ; Hypertension 401.9 and Constipation due to opioid therapy 564.09 [facility] [address] [id number] [address] [place] [address] 17 May, 2015 [facility] [address] [id number] [address] [place] [address] 15 May, 2015 [facility] [address] [id number] [address] [place] [address] Apr, [facility] [address] [id number] [address] [place] [address] Apr, Unspecified essential hypert ension 401.9 [facility] [address] [id number] [address] [place] [address] Apr, [facility] [address] [id number] [address] [place] [address] Apr, [facility] [address] [id number] [address] [place] [address] Apr, [facility] [address] [id number] [address] [place] [address] Apr, [facility] [address] [id number] [address] [place] [address] Apr, [facility] [address] [id number] [address] [place] [address] Apr, [facility] [address] [id number] [address] [place] [address] March, Unspecified essential hypert ension 401.9 [facility] [address] [id number] [address] [place] [address] March, [facility] [address] [id number] [address] [place] [address] March, [facility] [address] [id number] [address] [place] [address] Feb, [facility] [address] [id number] [address] [place] [address], [place] [address] Feb, [facility] [address] [id number] [address] [place] [address], [place] [address] Jan, [facility] [address] [id number] [address] [place] [address], [place] [address] Jan, [facility] [address] [id number] [address] [place] [address], [place] [address] Jan, [facility] [address] [id number] [address] [place] [address], [place] [address] Jan, [facility] [address] [id number] [address] [place] [address], [place] [address] Jan, [facility] [address] [id number] [address] [place] [address], [place] [address] Jan, [facility] [address] [id number] [address] [place] [address], [place] [address] Jan, [facility] [address] [id number] [address] [place] [address], [place] [address] 16 Dec, 2014 [facility] [address] [id number] [address] [place] [address], [place] [address] 16 Dec, 2014 [facility] [address] [id number] [address] [place] [address], [place] [address] Dec, [facility] [address] [id number] [address] [place] [address], [place] [address] Nov, [facility] [address] [id number] [address] [place] [address], [place] [address] Nov, [facility] [address] [id number] [address] [place] [address], [place] [address] Oct, [facility] [address] [id number] [address] [place] [address], [place] [address] Oct, [facility] [address] [id number] [address] [place] [address], [place] [address] Oct, [facility] [address] [id number] [address] [place] [address], [place] [address] Oct, [facility] [address] [id number] [address] [place] [address], [place] [address] Oct, [facility] [address] [id number] [address] [place] [address], [place] [address] Oct, [facility] [address] [id number] [address] [place] [address], [place] [address] Oct, [facility] [address] [id number] [address] [place] [address], [place] [address] Oct, [facility] [address] [id number] [address] [place] [address], [place] [address] Sep, [facility] [address] [id number] [address] [place] [address], [place] [address] Sep, [facility] [address] [id number] [address] [place] [address], [place] [address] Sep, [facility] [address] [id number] [address] [place] [address], [place] [address] Sep, [facility] [address] [id number] [address] [place] [address], [place] [address] Sep, [facility] [address] [id number] [address] [place] [address], [place] [address] Sep, [facility] [address] [id number] [address] [place] [address], [place] [address] Aug, [facility] [address] [id number] [address] [place] [address], [place] [address] Aug, [facility] [address] [id number] [address] [place] [address], [place] [address] Aug, [facility] [address] [id number] [address] [place] [address], [place] [address] Aug, [facility] [address] [id number] [address] [place] [address], [place] [address] Aug, [facility] [address] [id number] [address] [place] [address], [place] [address] Aug, [facility] [address] [id number] [address] [place] [address], [place] [address] Aug, [facility] [address] [id number] [address] [place] [address], [place] [address] Aug, [facility] [address] [id number] [address] [place] [address], [place] [address] Aug, [facility] [address] [id number] [address] [place] [address], [place] [address] Aug, [facility] [address] [id number] [address] [place] [address], [place] [address] Jul, [facility] [address] [id number] [address] [place] [address], [place] [address] Jul, [facility] [address] [id number] [address] [place] [address], [place] [address] Jul, [facility] [address] [id number] [address] [place] [address], [place] [address] Jul, [facility] [address] [id number] [address] [place] [address], [place] [address] Jul, [facility] [address] [id number] [address] [place] [address], [place] [address] Jul, [facility] [address] [id number] [address] [place] [address], [place] [address] Jun, [facility] [address] [id number] [address] [place] [address], [place] [address] Jun, [facility] [address] [id number] [address] [place] [address], [place] [address] Jun, [facility] [address] [id number] [address] [place] [address], [place] [address] Jun, [facility] [address] [id number] [address] [place] [address], [place] [address] Jun, [facility] [address] [id number] [address] [place] [address], [place] [address] Jun, [facility] [address] [id number] [address] [place] [address], [place] [address] May, [facility] [address] [id number] [address] [place] [address], [place] [address] May, [facility] [address] [id number] [address] [place] [address], [place] [address] May, [facility] [address] [id number] [address] [place] [address], [place] [address] May, [facility] [address] [id number] [address] [place] [address], [place] [address] May, [facility] [address] [id number] [address] [place] [address], [place] [address] Apr, [facility] [address] [id number] [address] [place] [address], [place] [address] Apr, [facility] [address] [id number] [address] [place] [address], [place] [address] Apr, [facility] [address] [id number] [address] [place] [address], [place] [address] Apr, [facility] [address] [id number] [address] [place] [address], [place] [address] March, [facility] [address] [id number] [address] [place] [address], [place] [address] March, [facility] [address] [id number] [address] [place] [address], [place] [address] March, [facility] [address] [id number] [address] [place], [place] [address], [place] [address] March, [facility] [address] [id number] [facility] [place] [address] March, [facility] [address] [id number] [address] [place] [address], [place] [address] March, [facility] [address] [id number] [facility] [place] [address] Feb, [facility] [address] [id number] [address] [place] [address], [place] [address] Feb, [facility] [address] [id number] [address] [place] [address], [place] [address] Feb, [facility] [address] [id number] [address] [place] [address], [place] [address] Feb, [facility] [address] [id number] [address] [place] [address], [place] [address] Feb, [facility] [address] [id number] [address] [place] [address], [place] [address] Feb, [facility] [address] [id number] [address] [place] [address], [place] [address] Feb, [facility] [address] [id number] [address] [place] [address], [place] [address] Feb, [facility] [address] [id number] [address] [place] [address], [place] [address] Jan, [facility] [address] [id number] [address] [place] [address], [place] [address] Jan, [facility] [address] [id number] [address] [place] [address], [place] [address] Jan, [facility] [address] [id number] [address] [place] [address], [place] [address] Jan, [facility] [address] [id number] [address] [place] [address], [place] [address] Jan, [facility] [address] [id number] [address] [place] [address], [place] [address] Jan, [facility] [address] [id number] [facility] [place] [address] Dec, [facility] [address] [id number] [address] [place] [address], [place] [address] Dec, [facility] [address] [id number] [address] [place] [address], [place] [address] Nov, [facility] [address] [id number] [address] [place] [address], [place] [address] Nov, [facility] [address] [id number] [address] [place] [address], [place] [address] Nov, [facility] [address] [id number] [address] [place] [address], [place] [address] Nov, [facility] [address] [id number] [address] [place] [address], [place] [address] Nov, [facility] [address] [id number] [address] [place] [address], [place] [address] Nov, [facility] [address] [id number] [address] [place] [address], [place] [address] Nov, [facility] [address] [id number] [address] [place] [address], [place] [address] Nov, [facility] [address] [id number] [address] [place] [address], [place] [address] Nov, [facility] [address] [id number] [address] [place] [address], [place] [address] Nov, [facility] [address] [id number] [address] [place] [address], [place] [address] Nov, [facility] [address] [id number] [address] [place] [address], [place] [address] Nov, [facility] [address] [id number] [address] [place] [address], [place] [address] Nov, [facility] [address] [id number] [address] [id number] Nov, [facility] [address] [id number] [address] [place] [address] Nov, [facility] [address] [id number] [address] [place] [address] Oct, [facility] [address] [id number] [address] [place] [address] Oct, [facility] [address] [id number] [address] [place] [address] Oct, [facility] [address] [id number] [address] [place] [address] Oct, [facility] [address] [id number] [address] [place] [address] Oct, [facility] [address] [id number] [address] [place] [address] Oct, [facility] [address] [id number] [address] [place] [address] Oct, [facility] [address] [id number] [address] [place] [address] Oct, [facility] [address] [id number] [address] [place] [address] Oct, [facility] [address] [id number] [address] [address] Aug, [facility] [address] [id number] [address] [place] [address] Aug, IMMUNIZATIONS No Known Immunizations SOCIAL HISTORY Never Assessed REASON FOR VISIT Controlled Medication Refill PLAN OF CARE VITAL SIGNS MEDICATIONS Medication Instructions Dosage Frequency Start Date End Date Duration S servandous Clonazepam 0.5 MG Orally twice a day 1 tablet as needed for anxiety 12h Feb, 28 days Active MS Contin 15 mg Orally every 12 hrs 1 tablet 12h Jun, 28 days Active Oxycodone HCl 10 mg Orally every 6 hrs 1 tablet as needed 6h Jun, 28 days Active Clonazepam 1 MG Orally Once a day 1 tablet at bedtime 24h Sep 28 days Active RESULTS No Results PROCEDURES No Known procedures INSTRUCTIONS MEDICATIONS ADMINISTERED No Known Medications MEDICAL (GENERAL) HISTORY Type Description Date Medical History hypertension Medical History asthma Medical History Arthritis Medical History Hypoglycemia Medical History Heart Cath 11/05/2013 Medical History herniated disc--Seen by Dr. Troy Michelle pain specialist in [place], [place] Medical History Chronic low back pain [...]
--- OUTSIDE RECORDS SUMMARY | 2020-06-19 02:18 | XMS REPORT ---
Author Author aMhsa ROBERTS Organization [facility] Address [address] [place] [address] Care Team Providers Care Maintenance Man Name Role Phone ARMANDO ASHVIN Unavailable PROBLEMS Type Condition ICD9-CM Code QFY27-JN Code Onset Dates Condition S tatus SNOMED Code Problem Chronic prescription opiate use Z79.899 Active 949037428 Problem B12 deficiency E53.8 Active 83297 4004 Problem Bilateral low back pain, with sciatica presence unspecifie d M54.5 Active 597102851 Problem CKD (chronic kidney disease) stage 3, GFR 30-59 ml/min N18.3 Active 775583895 Problem Drug induced constipation K59.03 Acti ve [id number] Problem GERD (gastroesophageal reflux disease) K21.9 Active 504725327 Problem Allergic rhinitis J30.9 Active 61 396220 Problem Chronic obstructive pulmonary disease, unspecified COPD ty pe J44.9 Active 05338173 Problem Fibromyalgia M79.7 Active 3086743 7 Problem Chronic pain syndrome G89.4 Active 427410266 Problem Primary insomnia F51.01 Active 193 529950 Problem Other constipation K59.09 Active 1 [id number] Problem Atherosclerosis of nondalton co ronary artery of nondalton heart without angina pectoris I25.10 Active 8625058180706 Problem Major depressive disorder, recurrent episode, un specified severity F33.9 Active 01308005 Problem Anxiety F41.9 Active 72419027 Problem Hyperlipidemia, unspecified hyperlipidemia E78.5 Active 43745673 Problem Essential hypertension I10 Active 04478400 Problem Chronic prescription benzodiazepine use Z79.899 Active 793586037 ALLERGIES No Information ENCOUNTERS Encounter Location Date Diagnosis [facility] [address] [facility] [id number] [address] [place] [id number] Jul, [facility] [address] [facility] [id number] [address] [place] [phone] Jul, Screening for breast cancer Z12.31 and Major depressive disorder, recurrent episode, unspecified severity F33.9 [place] [id number] [place] [id number] [address] [place] [address] Jun, Chronic pain syndrome G89.4 and Anxiety F41.9 [place] [address] [place] [id number] [address] [place] [address] May, Chronic pain syndrome G89.4 and Anxiety F41.9 [place] [address] [place] [id number] [address] [place] [address] Apr, Anxiety F41.9 [place] [address] [place] [id number] [place] [address] Apr, Chronic prescription opiate use Z79.899 ; Chronic pain syndrome G89.4 ; Essential hypertension I10 ; Allergic rhinitis J30.9 and CKD (chronic kidney disease) stage 3, GFR 30-59 ml/min N18.3 [place] [address] [place] [id number] [address] [place] [phone] Apr, [place] [address] [place] [id number] [place] [address] March, Anxiety F41.9 and Chronic pa in syndrome G89.4 [place] [address] [place] [id number] [address] [place] [phone] March, CKD (chronic kidney disease) stage 3, GFR 30-59 ml/min N18.3 ; B12 deficiency E53.8 and Hyperlipidemia, unspecified hyperlipidemia E78.5 [place] [address] [place] [id number] [address] [place] [address] March, Anxiety F41.9 and Chronic pa in syndrome G89.4 [place] [address] [place] [id number] [address] [place] [address] Feb, Anxiety F41.9 and Chronic pa in syndrome G89.4 [place] [address] [place] [id number] [address] [place] [address] Jan, B12 deficiency E53.8 [place] [address] [address] Jan, [place] [address] [address] Jan, Anxiety F41.9 ; Chronic pain syndrome G89.4 and Essential hypertension I10 [place] [address] [address] Jan, CKD (chronic kidney disease) stage 3, [...] Subacromial bursitis of right shoulder joint M75.51 [place] [address] [address] 28 Dec, 2017 Essential hypertension I10 [place] [address] [address] 15 Dec, 2017 Chronic pain syndrome G89.4 [place] [address] [address] Dec, Chronic pain syndrome G89.4 [place] [address] [address] Nov, [place] [address] [address] Nov, Chronic pain syndrome G89.4 and Anxiety F41.9 [place] [address] [address] Oct, Chronic pain syndrome G89.4 ; Other constipation K59.09 and Chronic prescription opiate use Z79.899 [place] [address] [place] [address] 08 Oct, 2017 Chronic pain syndrome G89.4 and Anxiety F41.9 [place] [address] [address] Sep, Essential hypertension I10 [place] [address] [place] [id number] [place] [address] 16 Sep, 2017 Chronic pain syndrome G89.4 and Anxiety F41.9 [place] [address] [address] Aug, Chronic pain syndrome G89.4 and Anxiety F41.9 [place] [address] [address] 28 Jul, 2017 Essential hypertension I10 [place] [address] [address] 22 Jul, 2017 Chronic obstructive pulmonar y disease, unspecified COPD type J44.9 [place] [address] [address] Jul, Chronic pain syndrome G89.4 and Anxiety F41.9 [place] [address] [address] 13 Jul, 2017 Chronic pain syndrome G89.4 ; Essential hypertension I10 ; Fibromyalgia M79.7 ; CKD (chronic kidney disease) stage 3, GFR 30-59 ml/min N18.3 ; Subacromial bursitis, right M75.51 and Goals of care, co unseling/discussion Z71.89 [place] [id number] [place] [address] Jun, Chronic pain syndrome G89.4 and Anxiety F41.9 [place] [address] [place] [id number] [address] [place] [address] May, Chronic pain syndrome G89.4 and Anxiety F41.9 [place] [address] [address] Apr, Chronic pain syndrome G89.4 and Anxiety F41.9 [facility] [address] [facility] [id number] [address] [place] [address] Apr, Drug induced constipation K5 9.03 ; Chronic pain syndrome G89.4 and CKD (chronic kidney disease) stage 3, GFR 30-59 ml/min N18.3 [place] [address] [facility] [id number] [address] [place] [address] Apr, Chronic pain syndrome G89.4 and Anxiety F41.9 [place] [address] [facility] [id number] [address] [place] [address] March, Chronic pain syndrome G89.4 and Anxiety F41.9 [place] [address] [facility] [id number] [address] [place] [address] March, Decreased GFR R94.4 [place] [address] [facility] [id number] [address] [place] [address] Feb, [facility] [address] [id number] [address] [place] [address] Feb, Chronic pain syndrome G89.4 and Anxiety F41.9 [place] [address] [facility] [id number] [address] [place] [address] Jan, Decreased GFR R94.4 [place] [address] [facility] [id number] [address] [place] [address] Jan, Decreased GFR R94.4 [place] [address] [facility] [id number] [address] [place] [address] Jan, Allergic rhinitis J30.9 ; Es sential hypertension I10 ; Major depressive disorder, recurrent episode, unspecified severity F33.9 and Primary insomnia F51.01 [facility] [address] [facility] [id number] [address] [place] [address] Jan, Acute right-sided thoracic b ack pain M54.6 ; Subacromial bursitis of right shoulder joint M75.51 ; Chronic pain syndrome G89.4 and Anxiety F41.9 [place] [id number] [facility] [id number] [address] [place] [address] Jan, Decreased GFR R94.4 [place] [address] [facility] [id number] [address] [place] [address] Dec, Decreased GFR R94.4 [place] [address] [facility] [id number] [address] [place] [address] Dec, Decreased GFR R94.4 [place] [address] [facility] [id number] [address] [place] [address] Dec, Decreased GFR R94.4 [place] [address] [facility] [id number] [address] [place] [address] Dec, Decreased GFR R94.4 [place] [address] [facility] [id number] [address] [place] [address] Dec, Anxiety F41.9 and Bilateral low back pain, with sciatica presence unspecified M54.5 [place] [address] [facility] [id number] [address] [place] [address] Dec, Thrombocytosis D47.3 ; Hyper lipidemia, unspecified hyperlipidemia E78.5 ; Need for hepatitis C screening test Z11.59 and B12 deficiency E53.8 [place] [address] [place] [id number] [address] [place] [address] Nov, Need for hepatitis C screeni ng test Z11.59 [place] [address] [facility] [id number] [address] [place] [address] Nov, Anxiety F41.9 and Bilateral low back pain, with sciatica presence unspecified M54.5 [place] [address] [facility] [id number] [address] [place] [address] Oct, Bilateral low back pain, wit h sciatica presence unspecified M54.5 ; Chronic prescription opiate use Z79.899 ; Anxiety F41.9 ; Essential hypertension I10 ; Hyperlipidemia, unspecified hyperlipidemia E78.5 ; Health care maintenance Z00.00 and Thrombocytosis D47.3 [facility] [address] [facility] [id number] [address] [place] [address] Sep, [facility] [address] [address] Sep, [place] [address] [address] Aug, [facility] [address] [address] Jul, B12 deficiency E53.8 [place] [address] [address] Jul, [place] [address] [address] Jul, Essential hypertension I10 ; Chronic pain syndrome G89.4 ; Anxiety F41.9 ; Screening for breast cancer Z12.39 ; Atherosclerosis of nondalton coronary artery of nondalton heart without angina pectoris I25.10 ; Major depressive disorder, recurrent episode, unspecified severity F33.9 ; Primary insomnia F51.01 and Allergic rhinitis J30.9 [place] [address] [address] Jun, [facility] [address] [address] Jun, Leg wound, right, initial en counter S81.801A and Encounter for immunization Z23 [place] [address] [place] [id number] [address] [place] [address] Jun, Open wound of right ear, uns pecified open wound type, initial encounter S01.301A [place] [address] [place] [id number] [address] [place] [address] May, B12 deficiency E53.8 [place] [address] [address] May, [facility] [address] [place] [id number] [address] [place] [address] May, [facility] [address] [address] May, Chronic pain syndrome G89.4 ; Chronic prescription opiate use Z79.899 ; Allergic rhinitis J30.9 ; Essential hypertension I10 and Non-healing skin lesion L98.9 [facility] [address] [address] Apr, [facility] [address] [address] March, [facility] [address] [address] Feb, [place] [address] [address] Feb, [facility] [address] [address] Feb, Chronic pain syndrome G89.4 ; Anxiety [...] [facility] [address] [place] [id number] [address] [place] [address] Jan, [facility] [address] [address] Jan, Essential hypertension I10 [facility] [address] [place] [id number] [address] [place] [address] Jan, [facility] [address] [place] [id number] [address] [place] [address] Jan, [facility] [address] [address] Jan, [facility] [address] [address] Dec, [facility] [address] [address] Dec, Essential hypertension I10 [facility] [address] [address] Dec, [facility] [address] [address] Dec, B12 deficiency E53.8 and Ess ential hypertension I10 [place] [address] [address] Dec, [place] [address] [address] Nov, Right shoulder pain M25.511 [place] [address] [address] Nov, Right shoulder pain M25.511 [place] [address] [address] Nov, Essential hypertension I10 a nd B12 deficiency E53.8 [place] [address] [address] Nov, Major depressive disorder, r ecurrent episode, unspecified severity F33.9 ; Anxiety F41.9 ; Chronic pain syndrome G89.4 ; Essential hypertension I10 ; Hyperlipidemia, unspecified hyperlipidemia E78.5 ; Chronic prescription opiate use Z79.899 ; Allergic rhinitis J30.9 ; B12 deficiency E53.8 and Right shoulder pain M25.511 [place] [id number] [address] Oct, [place] [address] [address] Oct, [facility] [address] [facility] [id number] [address] [place] [address] Sep, [facility] [address] [facility] [id number] [address] [place] [address] Sep, [facility] [address] [facility] [id number] [address] [place] [address] Aug, [facility] [address] [facility] [id number] [address] [place] [address] Aug, [facility] [address] [facility] [id number] [address] [place] [address] Aug, [facility] [address] [facility] [id number] [address] [place] [address] Aug, Other constipation K59.09 ; Hyperlipidemia, unspecified hyperlipidemia E78.5 ; Essential hypertension I10 ; Primary insomnia F51.01 ; Anxiety F41.9 ; Chronic pain syndrome G89.4 ; Right shoulder pain M25.511 and Acute cystitis without hematuria N30.00 [facility] [address] [place] [id number] [address] [place] [address] Jul, [facility] [address] [facility] [id number] [address] [place] [address] Jul, [facility] [address] [facility] [id number] [address] [place] [address] Jun, [facility] [address] [facility] [id number] [address] [place] [address] Jun, [facility] [address] [facility] [id number] [address] [place] [address] Jun, [facility] [address] [facility] [id number] [address] [place] [address] May, [facility] [address] [facility] [id number] [address] [place] [address] May, Other chronic pain 338.29 ; Hypertension 401.9 and Constipation due to opioid therapy 564.09 [facility] [place] [facility] [address] [id number] [address] [place] [address] 17 May, 2015 [facility] [address] [id number] [address] [place] [address] 15 May, 2015 [facility] [address] [id number] [address] [place] [address] 17 Apr, 2015 [facility] [address] [id number] [address] [place] [address] 17 Apr, 2015 Unspecified essential hypert ension 401.9 [facility] [address] [id number] [address] [place] [address], [place] [address] 16 Apr, 2015 [facility] [address] [id number] [address] [place] [address] Apr, [facility] [address] [id number] [address] [place] [address] Apr, [facility] [address] [id number] [address] [place] [address] Apr, [facility] [address] [id number] [address] [place] [address] Apr, [facility] [address] [id number] [address] [place] [address] Apr, [facility] [address] [id number] [address] [place] [address] March, Unspecified essential hypert ension 401.9 [facility] [address] [id number] [address] [place] [address] March, [facility] [address] [id number] [address] [place] [address] March, [facility] [address] [id number] [address] [place] [address] 14 Feb, 2015 [facility] [address] [id number] [address] [place] [address] 13 Feb, 2015 [facility] [place] [facility] [address] [id number] [address] [place] [address], [place] [address] Jan, [facility] [address] [id number] [address] [place] [address], [place] [address] 23 Jan, 2015 [facility] [place] [facility] [address] [id number] [address] [place] [address], [place] [address] 17 Jan, 2014 [facility] [address] [id number] [address] [place] [address], [place] [address] 17 Jan, 2014 [facility] [address] [id number] [address] [place] [address], [place] [address] Jan, [facility] [place] [facility] [address] [id number] [address] [place] [address], [place] [address] Jan, [facility] [address] [id number] [address] [place] [address], [place] [address] Jan, [facility] [address] [id number] [address] [place] [address], [place] [address] 16 Dec, 2014 [facility] [address] [id number] [address] [place] [address], [place] [address] Dec, [facility] [address] [id number] [address] [place] [address], [place] [address] Dec, [facility] [address] [id number] [address] [place] [address], [place] [address] Nov, [facility] [address] [id number] [address] [place] [address], [place] [address] Nov, [facility] [address] [id number] [address] [place] [address], [place] [address] Oct, [facility] [place] [facility] [address] [id number] [address] [place] [address], [place] [address] Oct, [facility] [place] [facility] [address] [id number] [address] [place] [address], [place] [address] Oct, [facility] [place] [facility] [address] [id number] [address] [place] [address], [place] [address] Oct, [facility] [place] [facility] [address] [id number] [address] [place] [address], [place] [address] Oct, [facility] [place] [facility] [address] [id number] [address] [place] [address], [place] [address] Oct, [facility] [place] [facility] [address] [id number] [address] [place] [address], [place] [address] Oct, [facility] [place] [facility] [address] [id number] [address] [place] [address], [place] [address] Oct, [facility] [place] [facility] [address] [id number] [address] [place] [address], [place] [address] Sep, [facility] [place] [facility] [address] [id number] [address] [place] [address], [place] [address] Sep, [facility] [place] [facility] [address] [id number] [address] [place] [address], [place] [address] Sep, [facility] [place] [facility] [address] [id number] [address] [place] [address], [place] [address] Sep, [facility] [place] [facility] [address] [id number] [address] [place] [address], [place] [address] Sep, [facility] [place] [facility] [address] [id number] [address] [place] [address], [place] [address] Sep, [facility] [place] [facility] [address] [id number] [address] [place] [address], [place] [address] Aug, [facility] [place] [facility] [address] [id number] [address] [place] [address], [place] [address] Aug, [facility] [place] [facility] [address] [id number] [address] [place] [address], [place] [id number] Aug, [facility] [address] [id number] [address] [place] [address], [place] [address] Aug, [facility] [address] [id number] [address] [place] [address], [place] [address] Aug, [facility] [address] [id number] [address] [place] [address], [place] [address] Aug, [facility] [address] [id number] [address] [place] [address], [place] [address] Aug, [facility] [address] [id number] [address] [place] [address], [place] [address] Aug, [facility] [address] [id number] [address] [place] [address], [place] [address] Aug, [facility] [address] [id number] [address] [place] [address], [place] [address] Aug, [facility] [address] [id number] [address] [place] [address], [place] [id number] Jul, [facility] [address] [id number] [address] [place] [address], [place] [address] Jul, [facility] [address] [id number] [address] [place] [address], [place] [address] Jul, [facility] [address] [id number] [address] [place] [address], [place] [id number] Jul, [facility] [address] [id number] [address] [place] [address], [place] [address] Jul, [facility] [address] [id number] [address] [place] [address], [place] [address] Jul, [facility] [address] [id number] [address] [place] [address], [place] [address] Jun, [facility] [address] [id number] [address] [place] [address], [place] [address] Jun, [facility] [address] [id number] [address] [place] [address], [place] [address] Jun, [facility] [address] [id number] [address] [place] [address], [place] [address] Jun, [facility] [address] [id number] [address] [place] [address], [place] [address] Jun, [facility] [address] [id number] [address] [place] [address], [place] [address] Jun, [facility] [address] [id number] [address] [place] [address], [place] [address] May, [facility] [address] [id number] [address] [place] [address], [place] [address] May, [facility] [address] [id number] [address] [place] [address], [place] [address] May, [facility] [address] [id number] [address] [place] [address], [place] [address] May, [facility] [address] [id number] [address] [place] [address], [place] [address] May, [facility] [address] [id number] [address] [place] [address], [place] [address] Apr, [facility] [address] [id number] [address] [place] [address], [place] [address] Apr, [facility] [address] [id number] [address] [place] [address], [place] [id number] Apr, [facility] [address] [id number] [address] [place] [address], [place] [address] Apr, [facility] [address] [id number] [address] [place] [address], [place] [id number] March, [facility] [address] [id number] [address] [place] [address], [place] [id number] March, [facility] [address] [id number] [address] [place] [address], [place] [address] March, [facility] [address] [id number] [address] [place] [address], [place] [id number] March, [facility] [address] [id number] [address] [place] [address], [place] [address] March, [facility] [address] [id number] [address] [place] [address], [place] [address] March, [facility] [address] [id number] [facility] [place] [address] Feb, [facility] [address] [id number] [address] [place] [address], [place] [address] Feb, [facility] [address] [id number] [address] [place] [address], [place] [address] Feb, [facility] [address] [id number] [address] [place] [address], [place] [address] Feb, [facility] [address] [id number] [address] [place] [address], [place] [address] Feb, [facility] [address] [id number] [address] [place] [address], [place] [address] Feb, [facility] [address] [id number] [address] [place] [address], [place] [address] Feb, [facility] [address] [id number] [address] [place] [address], [place] [address] Feb, [facility] [address] [id number] [address] [place] [address], [place] [address] Jan, [facility] [address] [id number] [address] [place] [address], [place] [address] Jan, [facility] [address] [id number] [address] [place] [address], [place] [address] Jan, [facility] [address] [id number] [address] [place] [address], [place] [address] Jan, [facility] [address] [id number] [address] [place] [address], [place] [address] Jan, [facility] [address] [id number] [address] [place] [address], [place] [address] Jan, [facility] [address] [id number] [address] [place] [address], [place] [address] Dec, [facility] [address] [id number] [facility] [place] [address] Dec, [facility] [address] [id number] [address] [place] [address], [place] [address] Nov, [facility] [address] [id number] [address] [place] [address], [place] [address] Nov, [facility] [address] [id number] [address] [place] [address], [place] [address] Nov, [facility] [address] [id number] [address] [place] [address], [place] [address] Nov, [facility] [address] [id number] [address] [place] [address], [place] [address] Nov, [facility] [address] [id number] [address] [place] [address], [place] [address] Nov, [facility] [address] [id number] [address] [place] [address], [place] [address] Nov, [facility] [address] [id number] [address] [place] [address], [place] [address] Nov, [facility] [address] [id number] [address] [place] [address], [place] [address] Nov, [facility] [address] [id number] [address] [place] [address], [place] [address] Nov, [facility] [address] [id number] [address] [place] [address], [place] [address] Nov, [facility] [address] [id number] [address] [place] [address], [place] [address] Nov, [facility] [address] [id number] [address] [place] [address], [place] [address] Nov, [facility] [address] [id number] [address] [place] [address], [place] [address] Nov, [facility] [address] [id number] [address] [place] [address], [place] [address] Nov, [facility] [address] [id number] [address] [place] [id number] Oct, [facility] [address] [id number] [address] [place] [phone] Oct, [facility] [address] [id number] [address] [place] [id number] Oct, [facility] [address] [id number] [address] [place] [id number] Oct, [facility] [address] [id number] [address] [place] [id number] Oct, [facility] [address] [id number] [address] [place] [id number] Oct, [facility] [address] [id number] [address] [place] [id number] Oct, [facility] [address] [id number] [address] [place] [phone] Oct, [facility] [address] [id number] [address] [place] [phone] Oct, [facility] [address] [id number] [address] [place] [id number] Aug, [facility] [address] [id number] [address] [place] [phone] Aug, IMMUNIZATIONS No Known Immunizations SOCIAL HISTORY Never Assessed REASON FOR VISIT Controlled Med Refill PLAN OF CARE VITAL SIGNS MEDICATIONS Medication Instructions Dosage Frequency Start Date End Date Duration S tatus Oxycodone HCl 10 mg Orally every 6 hrs 1 tablet as needed 6h May, 28 days Active Clonazepam 1 MG Orally Once a day 1 tablet at bedtime 24h 25 Sep 28 days Active Clonazepam 0.5 MG Orally twice a day 1 tablet as needed for anxiety 12h Feb, 28 days Active MS Contin 15 mg Orally every 12 hrs 1 tablet 12h May, 28 days Active RESULTS No Results PROCEDURES No Known procedures INSTRUCTIONS MEDICATIONS ADMINISTERED No Known Medications MEDICAL (GENERAL) HISTORY Type Description Date Medical History hypertension Medical History asthma Medical History Arthritis Medical History Hypoglycemia Medical History Heart Cath 11/05/2013 Medical History herniated disc--Seen by Dr. Troy Michelle pain specialist in [place], [place] Medical History Chronic low back pain [...]
--- OUTSIDE RECORDS SUMMARY | 2020-06-19 02:18 | XMS REPORT ---
Author Author Mahsa ROBERTS Organization [facility] Address [address] [place] [address] Care Team Providers Care Stitch Welder Name Role Phone ARMANDONONAASHVIN Unavailable PROBLEMS Type Condition ICD9-CM Code TGJ19-RS Code Onset Dates Condition S tatus SNOMED Code Problem Chronic prescription opiate use Z79.899 Active 791438785 Problem B12 deficiency E53.8 Active 87871 4004 Problem Bilateral low back pain, with sciatica presence unspecifie d M54.5 Active 413490711 Problem CKD (chronic kidney disease) stage 3, GFR 30-59 ml/min N18.3 Active 720010591 Problem Drug induced constipation K59.03 Acti ve [id number] Problem GERD (gastroesophageal reflux disease) K21.9 Active 217367266 Problem Allergic rhinitis J30.9 Active 61 779723 Problem Chronic obstructive pulmonary disease, unspecified COPD ty pe J44.9 Active 51055423 Problem Fibromyalgia M79.7 Active 3789157 7 Problem Chronic pain syndrome G89.4 Active 886202992 Problem Primary insomnia F51.01 Active 193 709091 Problem Other constipation K59.09 Active 1 [id number] Problem Atherosclerosis of [place] co ronary artery of [place] heart without angina pectoris I25.10 Active 6319686555206 Problem Major depressive disorder, recurrent episode, un specified severity F33.9 Active 02276658 Problem Anxiety F41.9 Active 36461308 Problem Hyperlipidemia, unspecified hyperlipidemia E78.5 Active 13950520 Problem Essential hypertension I10 Active 02729946 Problem Chronic prescription benzodiazepine use Z79.899 Active 154887977 ALLERGIES Substance Reaction Event Type Date Status Motrin stomach upset Drug Allergy Apr, Active Lyrica throat swelling Drug Allergy Apr, Active Flagyl throat swelling Drug Allergy Apr, Active Lisinopril 20 Mg Tablet Headache Non Drug Allergy Apr, Active ENCOUNTERS Encounter Location Date Diagnosis [facility] [id number] [place] [address] Jul, [facility] [id number] [address] [place] [address] Jun, Chronic pain syndrome G89.4 and Anxiety F41.9 [place] [id number] [place] [address] May, Chronic pain syndrome G89.4 and Anxiety F41.9 [place] [address] [address] [id number] [place] [address] Apr, Anxiety F41.9 [place] [address] [id number] [place] [address] Apr, Chronic prescription opiate use Z79.899 ; Chronic pain syndrome G89.4 ; Essential hypertension I10 ; Allergic rhinitis J30.9 and CKD (chronic kidney disease) stage 3, GFR 30-59 ml/min N18.3 [place] [address] [place] [id number] [place] [address] Apr, [place] [address] [address] [id number] [place] [address] March, Anxiety F41.9 and Chronic pa in syndrome G89.4 [place] [address] [address] [id number] [place] [address] March, CKD (chronic kidney disease) stage 3, GFR 30-59 ml/min N18.3 ; B12 deficiency E53.8 and Hyperlipidemia, unspecified hyperlipidemia E78.5 [place] [address] [id number] [place] [address] March, Anxiety F41.9 and Chronic pa in syndrome G89.4 [place] [address] [address] [id number] [place] [address] Feb, Anxiety F41.9 and Chronic pa in syndrome G89.4 [place] [address] [address] [id number] [place] [address] Jan, B12 deficiency E53.8 [place] [address] [address] Jan, [place] [address] [address] Jan, Anxiety F41.9 ; Chronic pain syndrome G89.4 and Essential hypertension I10 [place] [address] [address] Jan, CKD (chronic kidney disease) stage 3, [...] of right shoulder joint M75.51 [place] [address] [address] 28 Dec, 2017 Essential hypertension I10 [place] [address] [address] 15 Dec, 2017 Chronic pain syndrome G89.4 [place] [address] [address] Dec, Chronic pain syndrome G89.4 [place] [address] [address] Nov, [place] [address] [address] Nov, Chronic pain syndrome G89.4 and Anxiety F41.9 [place] [address] [address] Oct, Chronic pain syndrome G89.4 ; Other constipation K59.09 and Chronic prescription opiate use Z79.899 [place] [address] [place] [address] 08 Oct, 2017 Chronic pain syndrome G89.4 and Anxiety F41.9 [place] [address] [address] Sep, Essential hypertension I10 [place] [address] [id number] [place] [address] 16 Sep, 2017 Chronic pain syndrome G89.4 and Anxiety F41.9 [place] [address] [address] Aug, Chronic pain syndrome G89.4 and Anxiety F41.9 [place] [address] [address] 28 Jul, 2017 Essential hypertension I10 [place] [address] [address] 22 Jul, 2017 Chronic obstructive pulmonar y disease, unspecified COPD type J44.9 [place] [address] [address] Jul, Chronic pain syndrome G89.4 and Anxiety F41.9 [place] [address] [address] 13 Jul, 2017 Chronic pain syndrome G89.4 ; Essential hypertension I10 ; Fibromyalgia M79.7 ; CKD (chronic kidney disease) stage 3, GFR 30-59 ml/min N18.3 ; Subacromial bursitis, right M75.51 and Goals of care, co unseling/discussion Z71.89 [place] [id number] [place] [address] Jun, Chronic pain syndrome G89.4 and Anxiety F41.9 [place] [address] [id number] [place] [address] May, Chronic pain syndrome G89.4 and Anxiety F41.9 [place] [address] [address] Apr, Chronic pain syndrome G89.4 and Anxiety F41.9 [facility] [address] [facility] [id number] [address] [place] [address] Apr, Drug induced constipation K5 9.03 ; Chronic pain syndrome G89.4 and CKD (chronic kidney disease) stage 3, GFR 30-59 ml/min N18.3 [place] [address] [facility] [id number] [address] [place] [address] Apr, Chronic pain syndrome G89.4 and Anxiety F41.9 [place] [address] [facility] [id number] [address] [place] [address] March, Chronic pain syndrome G89.4 and Anxiety F41.9 [place] [address] [facility] [id number] [address] [place] [address] March, Decreased GFR R94.4 [place] [address] [facility] [id number] [address] [place] [address] Feb, [facility] [address] [id number] [address] [place] [address] Feb, Chronic pain syndrome G89.4 and Anxiety F41.9 [place] [address] [facility] [id number] [address] [place] [address] Jan, Decreased GFR R94.4 [place] [address] [facility] [id number] [address] [place] [address] Jan, Decreased GFR R94.4 [place] [address] [facility] [id number] [address] [place] [address] Jan, Allergic rhinitis J30.9 ; Es sential hypertension I10 ; Major depressive disorder, recurrent episode, unspecified severity F33.9 and Primary insomnia F51.01 [facility] [address] [facility] [id number] [address] [place] [address] Jan, Acute right-sided thoracic b ack pain M54.6 ; Subacromial bursitis of right shoulder joint M75.51 ; Chronic pain syndrome G89.4 and Anxiety F41.9 [place] [id number] [facility] [id number] [address] [place] [address] Jan, Decreased GFR R94.4 [place] [address] [facility] [id number] [address] [place] [address] Dec, Decreased GFR R94.4 [place] [address] [facility] [id number] [address] [place] [address] Dec, Decreased GFR R94.4 [place] [address] [facility] [id number] [address] [place] [address] Dec, Decreased GFR R94.4 [place] [address] [facility] [id number] [address] [place] [address] Dec, Decreased GFR R94.4 [place] [address] [facility] [id number] [address] [place] [address] Dec, Anxiety F41.9 and Bilateral low back pain, with sciatica presence unspecified M54.5 [place] [address] [facility] [id number] [address] [place] [address] Dec, Thrombocytosis D47.3 ; Hyper lipidemia, unspecified hyperlipidemia E78.5 ; Need for hepatitis C screening test Z11.59 and B12 deficiency E53.8 [place] [address] [id number] [place] [address] Nov, Need for hepatitis C screeni ng test Z11.59 [place] [address] [facility] [id number] [address] [place] [address] Nov, Anxiety F41.9 and Bilateral low back pain, with sciatica presence unspecified M54.5 [place] [address] [facility] [id number] [address] [place] [address] Oct, Bilateral low back pain, wit h sciatica presence unspecified M54.5 ; Chronic prescription opiate use Z79.899 ; Anxiety F41.9 ; Essential hypertension I10 ; Hyperlipidemia, unspecified hyperlipidemia E78.5 ; Health care maintenance Z00.00 and Thrombocytosis D47.3 [facility] [address] [facility] [id number] [address] [place] [address] Sep, [facility] [address] [address] Sep, [place] [address] [address] Aug, [facility] [address] [address] Jul, B12 deficiency E53.8 [place] [address] [address] Jul, [place] [address] [address] Jul, Essential hypertension I10 ; Chronic pain syndrome G89.4 ; Anxiety F41.9 ; Screening for breast cancer Z12.39 ; Atherosclerosis of [place] coronary artery of [place] heart without angina pectoris I25.10 ; Major depressive disorder, recurrent episode, unspecified severity F33.9 ; Primary insomnia F51.01 and Allergic rhinitis J30.9 [place] [address] [address] Jun, [facility] [address] [address] Jun, Leg wound, right, initial en counter S81.801A and Encounter for immunization Z23 [place] [address] [place] [id number] [place] [address] Jun, Open wound of right ear, uns pecified open wound type, initial encounter S01.301A [place] [address] [place] [id number] [place] [address] May, B12 deficiency E53.8 [place] [address] [address] May, [facility] [address] [id number] [address] [place] [address] May, [facility] [address] [address] May, Chronic pain syndrome G89.4 ; Chronic prescription opiate use Z79.899 ; Allergic rhinitis J30.9 ; Essential hypertension I10 and Non-healing skin lesion L98.9 [facility] [address] [address] Apr, [facility] [address] [address] March, [facility] [address] [address] Feb, [place] [address] [address] Feb, [facility] [address] [address] Feb, Chronic pain syndrome G89.4 ; Anxiety F41.9 ; B12 deficiency E53.8 ; Allergic rhinitis J30.9 ; Fibromyalgia M79.7 ; Actinic keratosis L57.0 ; Skin rash R21 ; Open wound of right ear, unspecified open wound type, initial encounter S01.301A ; Subacromial bursitis, right M75.51 ; GERD (gastroesophageal reflux disease) K21.9 and Chronic obstructive pulmonary disease, unspecified COPD type J44.9 [facility] [address] [id number] [address] [place] [address] Jan, [facility] [address] [address] Jan, Essential hypertension I10 [facility] [id number] [place] [address] Jan, [facility] [address] [id number] [place] [address] Jan, [facility] [address] [address] Jan, [facility] [address] [address] Dec, [facility] [address] [address] Dec, Essential hypertension I10 [facility] [address] [address] Dec, [facility] [address] [address] Dec, B12 deficiency E53.8 and Ess ential hypertension I10 [place] [address] [address] Dec, [place] [address] [address] Nov, Right shoulder pain M25.511 [place] [address] [address] Nov, Right shoulder pain M25.511 [place] [address] [address] Nov, Essential hypertension I10 a nd B12 deficiency E53.8 [place] [address] [address] Nov, Major depressive disorder, r ecurrent episode, unspecified severity F33.9 ; Anxiety F41.9 ; Chronic pain syndrome G89.4 ; Essential hypertension I10 ; Hyperlipidemia, unspecified hyperlipidemia E78.5 ; Chronic prescription opiate use Z79.899 ; Allergic rhinitis J30.9 ; B12 deficiency E53.8 and Right shoulder pain M25.511 [place] [id number] [address] Oct, [place] [address] [address] Oct, [facility] [address] [facility] [id number] [address] [place] [address] Sep, [facility] [address] [facility] [id number] [address] [place] [address] Sep, [facility] [address] [facility] [id number] [address] [place] [address] Aug, [facility] [address] [facility] [id number] [address] [place] [address] Aug, [facility] [address] [facility] [id number] [address] [place] [address] Aug, [facility] [address] [facility] [id number] [address] [place] [address] Aug, Other constipation K59.09 ; Hyperlipidemia, unspecified hyperlipidemia E78.5 ; Essential hypertension I10 ; Primary insomnia F51.01 ; Anxiety F41.9 ; Chronic pain syndrome G89.4 ; Right shoulder pain M25.511 and Acute cystitis without hematuria N30.00 [facility] [id number] [place] [address] Jul, [facility] [address] [facility] [id number] [address] [place] [address] Jul, [facility] [address] [facility] [id number] [address] [place] [address] Jun, [facility] [address] [facility] [id number] [address] [place] [address] Jun, [facility] [address] [facility] [id number] [address] [place] [address] Jun, [facility] [address] [facility] [id number] [address] [place] [address] May, [facility] [address] [facility] [id number] [address] [place] [address] May, Other chronic pain 338.29 ; Hypertension 401.9 and Constipation due to opioid therapy 564.09 [facility] [place] [facility] [address] [id number] [address] [place] [address] 17 May, 2015 [facility] [address] [id number] [address] [place] [address] 15 May, 2015 [facility] [address] [id number] [address] [place] [address] 17 Apr, 2015 [facility] [address] [id number] [address] [place] [address] 17 Apr, 2015 Unspecified essential hypert ension 401.9 [facility] [address] [id number] [address] [place] [address], [place] [address] 16 Apr, 2015 [facility] [address] [id number] [address] [place] [address] Apr, [facility] [address] [id number] [address] [place] [address] Apr, [facility] [address] [id number] [address] [place] [address] Apr, [facility] [address] [id number] [address] [place] [address] Apr, [facility] [address] [id number] [address] [place] [address] Apr, [facility] [address] [id number] [address] [place] [address] March, Unspecified essential hypert ension 401.9 [facility] [address] [id number] [address] [place] [address] March, [facility] [address] [id number] [address] [place] [address] March, [facility] [address] [id number] [address] [place] [address] 14 Feb, 2015 [facility] [address] [id number] [address] [place] [address] 13 Feb, 2015 [facility] [place] [facility] [address] [id number] [address] [place] [address], [place] [address] Jan, [facility] [address] [id number] [address] [place] [address], [place] [address] 23 Jan, 2015 [facility] [place] [facility] [address] [id number] [address] [place] [address], [place] [address] 17 Jan, 2014 [facility] [address] [id number] [address] [place] [address], [place] [address] 17 Jan, 2014 [facility] [address] [id number] [address] [place] [address], [place] [address] Jan, [facility] [place] [facility] [address] [id number] [address] [place] [address], [place] [address] Jan, [facility] [address] [id number] [address] [place] [address], [place] [address] Jan, [facility] [address] [id number] [address] [place] [address], [place] [address] 16 Dec, 2014 [facility] [address] [id number] [address] [place] [address], [place] [address] Dec, [facility] [address] [id number] [address] [place] [address], [place] [address] Dec, [facility] [address] [id number] [address] [place] [address], [place] [address] Nov, [facility] [address] [id number] [address] [place] [address], [place] [address] Nov, [facility] [address] [id number] [address] [place] [address], [place] [address] Oct, [facility] [place] [facility] [address] [id number] [address] [place] [address], [place] [address] Oct, [facility] [place] [facility] [address] [id number] [address] [place] [address], [place] [address] Oct, [facility] [place] [facility] [address] [id number] [address] [place] [address], [place] [address] Oct, [facility] [place] [facility] [address] [id number] [address] [place] [address], [place] [address] Oct, [facility] [place] [facility] [address] [id number] [address] [place] [address], [place] [address] Oct, [facility] [place] [facility] [address] [id number] [address] [place] [address], [place] [address] Oct, [facility] [place] [facility] [address] [id number] [address] [place] [address], [place] [address] Oct, [facility] [place] [facility] [address] [id number] [address] [place] [address], [place] [address] Sep, [facility] [place] [facility] [address] [id number] [address] [place] [address], [place] [address] Sep, [facility] [place] [facility] [address] [id number] [address] [place] [address], [place] [address] Sep, [facility] [place] [facility] [address] [id number] [address] [place] [address], [place] [address] Sep, [facility] [place] [facility] [address] [id number] [address] [place] [address], [place] [address] Sep, [facility] [place] [facility] [address] [id number] [address] [place] [address], [place] [address] Sep, [facility] [place] [facility] [address] [id number] [address] [place] [address], [place] [address] Aug, [facility] [place] [facility] [address] [id number] [address] [place] [address], [place] [address] Aug, [facility] [place] [facility] [address] [id number] [address] [place] [address], [place] [address] Aug, [facility] [place] [facility] [address] [id number] [address] [place] [address], [place] [address] Aug, [facility] [place] [facility] [address] [id number] [address] [place] [address], [place] [address] Aug, [facility] [place] [facility] [address] [id number] [address] [place] [address], [place] [address] Aug, [facility] [address] [id number] [address] [place] [address], [place] [address] Aug, [facility] [address] [id number] [address] [place] [address], [place] [address] Aug, [facility] [address] [id number] [address] [place] [address], [place] [address] Aug, [facility] [address] [id number] [address] [place] [address], [place] [address] Aug, [facility] [address] [id number] [address] [place] [address], [place] [address] Jul, [facility] [address] [id number] [address] [place] [address], [place] [address] Jul, [facility] [address] [id number] [address] [place] [address], [place] [address] Jul, [facility] [address] [id number] [address] [place] [address], [place] [address] Jul, [facility] [address] [id number] [address] [place] [address], [place] [address] Jul, [facility] [address] [id number] [address] [place] [address], [place] [address] Jul, [facility] [address] [id number] [address] [place] [address], [place] [address] Jun, [facility] [address] [id number] [address] [place] [address], [place] [address] Jun, [facility] [address] [id number] [address] [place] [address], [place] [address] Jun, [facility] [address] [id number] [address] [place] [address], [place] [address] Jun, [facility] [address] [id number] [address] [place] [address], [place] [address] Jun, [facility] [address] [id number] [address] [place] [address], [place] [address] Jun, [facility] [address] [id number] [address] [place] [address], [place] [address] May, [facility] [address] [id number] [address] [place] [address], [place] [address] May, [facility] [address] [id number] [address] [place] [address], [place] [address] May, [facility] [address] [id number] [address] [place] [address], [place] [address] May, [facility] [address] [id number] [address] [place] [address], [place] [address] May, [facility] [address] [id number] [address] [place] [address], [place] [address] Apr, [facility] [address] [id number] [address] [place] [address], [place] [id number] Apr, [facility] [address] [id number] [address] [place] [address], [place] [address] Apr, [facility] [address] [id number] [address] [place] [address], [place] [address] Apr, [facility] [address] [id number] [address] [place] [address], [place] [address] March, [facility] [address] [id number] [address] [place] [address], [place] [address] March, [facility] [address] [id number] [address] [place] [address], [place] [address] March, [facility] [address] [id number] [address] [place] [address], [place] [address] March, [facility] [address] [id number] [address] [place] [address], [place] [address] March, [facility] [address] [id number] [address] [place] [address], [place] [address] March, [facility] [address] [id number] [address] [place] [address] Feb, [facility] [address] [id number] [address] [place] [address], [place] [address] Feb, [facility] [address] [id number] [address] [place] [address], [place] [address] Feb, [facility] [address] [id number] [address] [place] [address], [place] [address] Feb, [facility] [address] [id number] [address] [place] [address], [place] [address] Feb, [facility] [address] [id number] [address] [place] [address], [place] [address] Feb, [facility] [address] [id number] [address] [place] [address], [place] [address] Feb, [facility] [address] [id number] [address] [place] [address], [place] [address] Feb, [facility] [address] [id number] [address] [place] [address], [place] [address] Jan, [facility] [address] [id number] [address] [place] [address], [place] [address] Jan, [facility] [address] [id number] [address] [place] [address], [place] [address] Jan, [facility] [address] [id number] [address] [place] [address], [place] [address] Jan, [facility] [address] [id number] [address] [place] [address], [place] [address] Jan, [facility] [address] [id number] [address] [place] [address], [place] [address] Jan, [facility] [address] [id number] [address] [place] [address], [place] [address] Dec, [facility] [address] [id number] [address] [place] [address] Dec, [facility] [address] [id number] [address] [place] [address], [place] [address] Nov, [facility] [address] [id number] [address] [place] [address], [place] [address] Nov, [facility] [address] [id number] [address] [place] [address], [place] [address] Nov, [facility] [address] [id number] [address] [place] [address], [place] [address] Nov, [facility] [address] [id number] [address] [place] [address], [place] [address] Nov, [facility] [address] [id number] [address] [place] [address], [place] [address] Nov, [facility] [address] [id number] [address] [place] [address], [place] [address] Nov, [facility] [address] [id number] [address] [place] [address], [place] [address] Nov, [facility] [address] [id number] [address] [place] [address], [place] [address] Nov, [facility] [address] [id number] [address] [place] [address], [place] [address] Nov, [facility] [address] [id number] [address] [place] [address], [place] [address] Nov, [facility] [address] [id number] [address] [place] [address], [place] [address] Nov, [facility] [address] [id number] [address] [place] [address], [place] [address] Nov, [facility] [address] [id number] [address] [place] [address], [place] [address] Nov, [facility] [address] [id number] [address] [place] [address], [place] [address] Nov, [facility] [address] [id number] [address] [place] [address] Oct, [facility] [address] [id number] [address] [place] [address] Oct, [facility] [address] [id number] [address] [place] [address] Oct, [facility] [address] [id number] [address] [place] [phone] Oct, [facility] [address] [id number] [address] [place] [address] Oct, [facility] [address] [id number] [address] [place] [address] Oct, [facility] [address] [id number] [address] [place] [id number] Oct, [facility] [address] [id number] [address] [place] [id number] Oct, [facility] [address] [id number] [address] [place] [address] Oct, [facility] [address] [id number] [address] [place] [address] Aug, [facility] [address] [id number] [address] [place] [address] Aug, IMMUNIZATIONS No Known Immunizations SOCIAL HISTORY Never Assessed REASON FOR VISIT Blood Pressure-awoods PLAN OF CARE Activity Details Follow Up 3 Months Reason:Chronic pain Pending Test PANEL (PROFILE 3) VITAL SIGNS Height 69 in 2018-05-23 Weight 186.7 lbs 2018-05-23 Temperature 98.5 degrees Fahrenheit 2018-05-23 Heart Rate 67 bpm 2018-05-23 Respiratory Rate 20 2018-05-23 BMI 27.57 kg/m2 2018-05-23 Blood pressure systolic 138 mmHg 2018-05-23 Blood pressure diastolic 74 mmHg 2018-05-23 MEDICATIONS Medication Instructions Dosage Frequency Start Date End Date Duration S norberto Lisinopril-Hydrochlorothiazide 20-25 MG Orally Once a day 1 tablet 24h Active Clonazepam 1 MG Orally Once a day 1 tablet at bedtime 24h Sep 28 days Active Singulair 10 MG TAKE ONE TABLET BY MOUTH ONCE DAILY IN THE [facility] Active Blood Pressure Monitor Automat - as directed Jan, 8 Not-Taking Nitroglycerin 0.4 mg 1 tablet by Subling ual route every 5 PRN chest pain; NTE 3 tabs in 15 min Jun, Not-Michael ing MS Contin 15 mg Orally every 12 hrs 1 tablet 12h Apr, 28 days Active Omeprazole 20 MG TAKE ONE CAPSULE BY MOUTH ONCE DAILY 30 Active ProAir HFA 108 (90 Base) MCG/ACT Inhalation every 4 hrs 2 puffs as ne eded 4h Active Fluoxetine HCl 20 MG Orally Once a day 1 capsule in the morning 24h 90 Active HM Senna-S 8.6-50 MG Orally 2 times a day 1 tablet 12h May, Not-Taking Ipratropium-Albuterol 20-100 mcg/actuation Inhalation Four times a day as needed 1 puff 11 Jun, 2014 Not-Taking Oxycodone HCl 10 mg Orally every 6 hrs 1 tablet as needed 6h Apr, 28 days Active Cyanocobalamin 1000 MCG/ML INJECT 1 ML SUBCUTANEOUSLY EVERY OTHER MONTH 28 Active Multivitamin 1 Tablet 1 time per day Aug, Active Movantik 12.5 MG Orally Once a day 1 tablet in the morning 24h 30 Not-Taking Atenolol 25 MG Orally Once a day 1 tablet 24h Active Amitriptyline HCl 50 MG TAKE ONE TABLET BY MOUTH ONCE DAILY AT BEDTIME 90 Active Clonazepam 0.5 MG Orally twice a day 1 tablet as needed for anxiety 12h Feb, 28 days Active Aspirin 81 mg take 1 tablet (81 mg) by oral route once daily Nov, Active RESULTS No Results PROCEDURES Procedure Date Ordered Result Body Site LAB NOT BILLED BY [facility] May 23, 2018 [facility] VISIT ESTABLISHED PATIENT May 23, 2018 INSTRUCTIONS MEDICATIONS ADMINISTERED No Known Medications MEDICAL (GENERAL) HISTORY Type Description Date Medical History hypertension Medical History asthma Medical History Arthritis Medical History Hypoglycemia Medical History Heart Cath 11/05/2013 Medical History herniated disc--Seen by Dr. Troy Michelle pain specialist in [place], [place] Medical History Chronic low back pain [...]
--- OUTSIDE RECORDS SUMMARY | 2020-06-19 02:19 | XMS REPORT ---
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 Name Role Phone ARMANDO ASHVIN Unavailable PROBLEMS Type Condition ICD9-CM Code [id number] Code Onset Dates Condition S tatus SNOMED Code Problem Chronic prescription opiate use Z79.899 Active 435590181 Problem B12 deficiency E53.8 Active 31962 4004 Problem Bilateral low back pain, with sciatica presence unspecifie d M54.5 Active 120923592 Problem CKD (chronic kidney disease) stage 3, GFR 30-59 ml/min N18.3 Active 724822042 Problem Drug induced constipation K59.03 Acti ve [id number] Problem GERD (gastroesophageal reflux disease) K21.9 Active 692684573 Problem Allergic rhinitis J30.9 Active 61 528372 Problem Chronic obstructive pulmonary disease, unspecified COPD ty pe J44.9 Active 22036440 Problem Fibromyalgia M79.7 Active 5226193 7 Problem Chronic pain syndrome G89.4 Active 748083056 Problem Primary insomnia F51.01 Active 193 396336 Problem Other constipation K59.09 Active 1 [id number] Problem Atherosclerosis of [place] co ronary artery of [place] heart without angina pectoris I25.10 Active 0434522619102 Problem Major depressive disorder, recurrent episode, un specified severity F33.9 Active 23367762 Problem Anxiety F41.9 Active 29307723 Problem Hyperlipidemia, unspecified hyperlipidemia E78.5 Active 18961239 Problem Essential hypertension I10 Active 80159581 Problem Chronic prescription benzodiazepine use Z79.899 Active 970978611 ALLERGIES No Information ENCOUNTERS Encounter Location Date Diagnosis [facility] [address] [facility] [id number] [address] [place] [address] May, Chronic pain syndrome G89.4 and Anxiety F41.9 [facility] [address] [facility] [id number] [address] [place] [address] Apr, Anxiety F41.9 [place] [address] [facility] [id number] [address] [place] [address] Apr, Chronic prescription opiate use Z79.899 ; Chronic pain syndrome G89.4 ; Essential hypertension I10 ; Allergic rhinitis J30.9 and CKD (chronic kidney disease) stage 3, GFR 30-59 ml/min N18.3 [place] [address] [place] [id number] [address] [place] [address] Apr, [place] [address] [place] [id number] [address] [place] [address] March, Anxiety F41.9 and Chronic pa in syndrome G89.4 [place] [address] [place] [id number] [address] [place] [address] March, CKD (chronic kidney disease) stage 3, GFR 30-59 ml/min N18.3 ; B12 deficiency E53.8 and Hyperlipidemia, unspecified hyperlipidemia E78.5 [place] [address] [place] [id number] [address] [place] [address] March, Anxiety F41.9 and Chronic pa in syndrome G89.4 [place] [address] [place] [id number] [address] [place] [address] Feb, Anxiety F41.9 and Chronic pa in syndrome G89.4 [place] [address] [place] [id number] [address] [place] [address] Jan, B12 deficiency E53.8 [place] [address] [facility] [id number] [address] [place] [address] Jan, [place] [address] [place] [id number] [address] [place] [address] Jan, Anxiety F41.9 ; Chronic pain syndrome G89.4 and Essential hypertension I10 [place] [address] [place] [id number] [address] [place] [address] Jan, CKD (chronic kidney disease) stage 3, [...] Subacromial bursitis of right shoulder joint M75.51 [place] [id number] [place] [address] Dec, Essential hypertension I10 [place] [address] [address] 15 Dec, 2017 Chronic pain syndrome G89.4 [place] [address] [place] [id number] [place] [address] Dec, Chronic pain syndrome G89.4 [place] [address] [place] [address] Nov, [place] [address] [address] Nov, Chronic pain syndrome G89.4 and Anxiety F41.9 [place] [address] [place] [id number] [address] [place] [address] Oct, Chronic pain syndrome G89.4 ; Other constipation K59.09 and Chronic prescription opiate use Z79.899 [place] [address] [place] [id number] [address] [place] [address] Oct, Chronic pain syndrome G89.4 and Anxiety F41.9 [place] [address] [place] [id number] [address] [place] [address] Sep, Essential hypertension I10 [place] [address] [place] [id number] [address] [place] [address] Sep, Chronic pain syndrome G89.4 and Anxiety F41.9 [place] [address] [place] [id number] [address] [place] [address] Aug, Chronic pain syndrome G89.4 and Anxiety F41.9 [place] [address] [place] [id number] [address] [place] [address] Jul, Essential hypertension I10 [place] [address] [facility] [id number] [address] [place] [address] 22 Jul, 2017 Chronic obstructive pulmonar y disease, unspecified COPD type J44.9 [place] [address] [place] [id number] [address] [place] [address] Jul, Chronic pain syndrome G89.4 and Anxiety F41.9 [place] [address] [place] [id number] [address] [place] [address] 13 Jul, 2017 Chronic pain syndrome G89.4 ; Essential hypertension I10 ; Fibromyalgia M79.7 ; CKD (chronic kidney disease) stage 3, GFR 30-59 ml/min N18.3 ; Subacromial bursitis, right M75.51 and Goals of care, co unseling/discussion Z71.89 [place] [address] [place] [id number] [address] [place] [address] Jun, Chronic pain syndrome G89.4 and Anxiety F41.9 [place] [address] [place] [id number] [address] [place] [address] May, Chronic pain syndrome G89.4 and Anxiety F41.9 [place] [address] [place] [id number] [address] [place] [address] Apr, Chronic pain syndrome G89.4 and Anxiety F41.9 [place] [address] [place] [id number] [address] [place] [address] 14 Apr, 2017 Drug induced constipation K5 9.03 ; Chronic pain syndrome G89.4 and CKD (chronic kidney disease) stage 3, GFR 30-59 ml/min N18.3 [place] [address] [place] [id number] [address] [place] [address] 02 Apr, 2017 Chronic pain syndrome G89.4 and Anxiety F41.9 [facility] [address] [facility] [id number] [address] [place] [address] March, Chronic pain syndrome G89.4 and Anxiety F41.9 [facility] [address] [facility] [id number] [address] [place] [address] March, Decreased GFR R94.4 [facility] [address] [facility] [id number] [address] [place] [address] Feb, [facility] [address] [facility] [id number] [address] [place] [address] Feb, Chronic pain syndrome G89.4 and Anxiety F41.9 [place] [address] [facility] [id number] [address] [place] [address] Jan, Decreased GFR R94.4 [place] [address] [facility] [id number] [address] [place] [address] Jan, Decreased GFR R94.4 [facility] [address] [place] [id number] [address] [place] [address] Jan, Allergic rhinitis J30.9 ; Es sential hypertension I10 ; Major depressive disorder, recurrent episode, unspecified severity F33.9 and Primary insomnia F51.01 [facility] [address] [facility] [id number] [address] [place] [address] Jan, Acute right-sided thoracic b ack pain M54.6 ; Subacromial bursitis of right shoulder joint M75.51 ; Chronic pain syndrome G89.4 and Anxiety F41.9 [facility] [address] [facility] [id number] [address] [place] [address] Jan, Decreased GFR R94.4 [place] [address] [facility] [id number] [address] [place] [address] Dec, Decreased GFR R94.4 [place] [address] [facility] [id number] [address] [place] [address] Dec, Decreased GFR R94.4 [facility] [address] [place] [id number] [address] [place] [address] Dec, Decreased GFR R94.4 [place] [address] [place] [id number] [address] [place] [address] Dec, Decreased GFR R94.4 [place] [address] [place] [id number] [address] [place] [address] Dec, Anxiety F41.9 and Bilateral low back pain, with sciatica presence unspecified M54.5 [place] [address] [facility] [id number] [address] [place] [address] Dec, Thrombocytosis D47.3 ; Hyper lipidemia, unspecified hyperlipidemia E78.5 ; Need for hepatitis C screening test Z11.59 and B12 deficiency E53.8 [place] [address] [address] Nov, Need for hepatitis C screeni ng test Z11.59 [place] [address] [address] Nov, Anxiety F41.9 and Bilateral low back pain, with sciatica presence unspecified M54.5 [place] [address] [place] [id number] [address] [place] [address] Oct, Bilateral low back pain, wit h sciatica presence unspecified M54.5 ; Chronic prescription opiate use Z79.899 ; Anxiety F41.9 ; Essential hypertension I10 ; Hyperlipidemia, unspecified hyperlipidemia E78.5 ; Health care maintenance Z00.00 and Thrombocytosis D47.3 [place] [address] [place] [address] Sep, [place] [address] [place] [id number] [address] [place] [address] Sep, [place] [address] [place] [id number] [address] [place] [address] Aug, [place] [address] [address] Jul, B12 deficiency E53.8 [facility] [address] [facility] [id number] [address] [place] [address] Jul, [facility] [address] [facility] [id number] [address] [place] [address] Jul, Essential hypertension I10 ; Chronic pain syndrome G89.4 ; Anxiety F41.9 ; Screening for breast cancer Z12.39 ; Atherosclerosis of [place] coronary artery of [place] heart without angina pectoris I25.10 ; Major depressive disorder, recurrent episode, unspecified severity F33.9 ; Primary insomnia F51.01 and Allergic rhinitis J30.9 [facility] [address] [facility] [id number] [address] [place] [address] Jun, [facility] [address] [facility] [id number] [address] [place] [address] Jun, Leg wound, right, initial en counter S81.801A and Encounter for immunization Z23 [facility] [address] [facility] [id number] [address] [place] [address] Jun, Open wound of right ear, uns pecified open wound type, initial encounter S01.301A [place] [address] [facility] [id number] [address] [place] [address] May, B12 deficiency E53.8 [place] [address] [facility] [id number] [address] [place] [address] May, [facility] [address] [facility] [id number] [address] [place] [address] May, [facility] [address] [facility] [id number] [address] [place] [address] May, Chronic pain syndrome G89.4 ; Chronic prescription opiate use Z79.899 ; Allergic rhinitis J30.9 ; Essential hypertension I10 and Non-healing skin lesion L98.9 [place] [address] [facility] [id number] [address] [place] [address] Apr, [place] [address] [facility] [id number] [address] [place] [address] March, [facility] [address] [place] [id number] [address] [place] [address] Feb, [facility] [address] [facility] [id number] [address] [place] [address] Feb, [facility] [address] [address] Feb, Chronic pain syndrome G89.4 ; Anxiety F41.9 ; B12 deficiency E53.8 ; Allergic rhinitis J30.9 ; Fibromyalgia M79.7 ; Actinic keratosis L57.0 ; Skin rash R21 ; Open wound of right ear, unspecified open wound type, initial encounter S01.301A ; Subacromial bursitis, right M75.51 ; GERD (gastroesophageal reflux disease) K21.9 and Chronic obstructive pulmonary disease, unspecified COPD type J44.9 [facility] [address] [place] [id number] [address] [place] [address] 30 Jan, 2016 [facility] [address] [place] [id number] [address] [place] [address] Jan, Essential hypertension I10 [facility] [address] [place] [id number] [address] [place] [address] Jan, [facility] [address] [place] [id number] [address] [place] [address] Jan, [facility] [address] [place] [id number] [address] [place] [address] Jan, [facility] [address] [place] [id number] [address] [place] [address] Dec, [facility] [address] [place] [id number] [address] [place] [address] Dec, Essential hypertension I10 [facility] [address] [place] [id number] [address] [place] [address] Dec, [facility] [address] [facility] [id number] [address] [place] [address] 12 Dec, 2015 B12 deficiency E53.8 and Ess ential hypertension I10 [facility] [address] [facility] [id number] [address] [place] [address] 12 Dec, 2015 [facility] [address] [place] [id number] [address] [place] [address] Nov, Right shoulder pain M25.511 [facility] [address] [place] [id number] [address] [place] [address] Nov, Right shoulder pain M25.511 [facility] [address] [address] Nov, Essential hypertension I10 a nd B12 deficiency E53.8 [facility] [address] [place] [id number] [place] [address] Nov, Major depressive disorder, r ecurrent episode, unspecified severity F33.9 ; Anxiety F41.9 ; Chronic pain syndrome G89.4 ; Essential hypertension I10 ; Hyperlipidemia, unspecified hyperlipidemia E78.5 ; Chronic prescription opiate use Z79.899 ; Allergic rhinitis J30.9 ; B12 deficiency E53.8 and Right shoulder pain M25.511 [facility] [address] [place] [id number] [address] [place] [address] 17 Oct, 2015 [facility] [address] [place] [id number] [address] [place] [address] Oct, [facility] [address] [place] [id number] [address] [place] [address] Sep, [facility] [address] [place] [id number] [address] [place] [address] Sep, [facility] [address] [place] [id number] [address] [place] [address] Aug, [facility] [address] [place] [id number] [address] [place] [address] Aug, [facility] [address] [id number] [address] [place] [address] Aug, [facility] [address] [facility] [id number] [address] [place] [address] Aug, Other constipation K59.09 ; Hyperlipidemia, unspecified hyperlipidemia E78.5 ; Essential hypertension I10 ; Primary insomnia F51.01 ; Anxiety F41.9 ; Chronic pain syndrome G89.4 ; Right shoulder pain M25.511 and Acute cystitis without hematuria N30.00 [facility] [address] [id number] [address] [place] [address] Jul, [facility] [address] [id number] [address] [place] [address] Jul, [facility] [address] [facility] [id number] [address] [place] [address] Jun, [facility] [address] [facility] [id number] [address] [place] [address] Jun, [facility] [address] [facility] [id number] [address] [place] [address] Jun, [facility] [address] [facility] [id number] [address] [place] [address] May, [facility] [address] [facility] [id number] [address] [place] [address] May, Other chronic pain 338.29 ; Hypertension 401.9 and Constipation due to opioid therapy 564.09 [facility] [address] [facility] [id number] [address] [place] [address] May, [facility] [address] [id number] [address] [place] [address] May, [facility] [address] [facility] [id number] [address] [place] [address] Apr, [facility] [address] [facility] [id number] [address] [place] [address] Apr, Unspecified essential hypert ension 401.9 [facility] [address] [id number] [address] [place] [address], [place] [address] 16 Apr, 2015 [facility] [address] [id number] [address] [place] [address] Apr, [facility] [address] [id number] [address] [place] [address] Apr, [facility] [address] [id number] [address] [place] [address] Apr, [facility] [address] [id number] [address] [place] [address], [place] [address] Apr, [facility] [address] [id number] [address] [place] [address] Apr, [facility] [address] [id number] [address] [place] [address] March, Unspecified essential hypert ension 401.9 [facility] [address] [id number] [address] [place] [address] March, [facility] [address] [id number] [address] [place] [address] March, [facility] [address] [id number] [address] [place] [address] Feb, [facility] [address] [id number] [address] [place] [address] Feb, [facility] [address] [id number] [address] [place] [address] Jan, [facility] [address] [id number] [address] [place] [address] Jan, [facility] [address] [id number] [address] [place] [address] 17 Jan, 2015 [facility] [address] [id number] [address] [place] [address] 17 Jan, 2015 [facility] [address] [id number] [address] [place] [address], [place] [address] 13 Jan, 2014 [facility] [address] [id number] [address] [place] [address], [place] [address] 02 Jan, 2014 [facility] [address] [id number] [address] [place] [address], [place] [address] 02 Jan, 2014 [facility] [address] [id number] [address] [place] [address], [place] [address] 16 Dec, 2014 [facility] [address] [id number] [address] [place] [address], [place] [address] 16 Dec, 2014 [facility] [address] [id number] [address] [place] [address], [place] [address] 13 Dec, 2014 [facility] [address] [id number] [address] [place] [address], [place] [address] 16 Nov, 2014 [facility] [address] [id number] [address] [place] [address], [place] [address] Nov, [facility] [address] [id number] [address] [place] [address], [place] [address] 16 Oct, 2014 [facility] [address] [id number] [address] [place] [address], [place] [address] Oct, [facility] [address] [id number] [address] [place] [address], [place] [address] Oct, [facility] [address] [id number] [address] [place] [address], [place] [address] Oct, [facility] [address] [id number] [address] [place] [address], [place] [address] 08 Oct, 2014 [facility] [address] [id number] [address] [place] [address], [place] [address] 08 Oct, 2014 [facility] [address] [id number] [address] [place] [address], [place] [address] 03 Oct, 2014 [facility] [address] [id number] [address] [place] [address] [address] Oct, [facility] [address] [id number] [address] [place] [address], [place] [address] Sep, [facility] [address] [id number] [address] [place] [address], [place] [address] Sep, [facility] [address] [id number] [address] [place] [address], [place] [address] Sep, [facility] [address] [id number] [address] [place] [address], [place] [address] Sep, [facility] [address] [id number] [address] [place] [address], [place] [address] Sep, [facility] [address] [id number] [address] [place] [address], [place] [address] Sep, [facility] [address] [id number] [address] [place] [address], [place] [address] Aug, [facility] [address] [id number] [address] [place] [address], [place] [address] Aug, [facility] [address] [id number] [address] [place] [address], [place] [address] Aug, [facility] [address] [id number] [address] [place] [address], [place] [address] Aug, [facility] [address] [id number] [address] [place] [address], [place] [address] Aug, [facility] [address] [id number] [address] [place] [address], [place] [address] Aug, [facility] [address] [id number] [address] [place] [address], [place] [address] Aug, [facility] [address] [id number] [address] [place] [address], [place] [address] Aug, [facility] [address] [id number] [address] [place] [address], [place] [address] Aug, [facility] [address] [id number] [facility] [place] [address] Aug, [facility] [address] [id number] [address] [place] [address], [place] [address] Jul, [facility] [address] [id number] [address] [place] [address], [place] [address] Jul, [facility] [address] [id number] [address] [place] [address], [place] [address] Jul, [facility] [address] [id number] [address] [place] [address], [place] [address] Jul, [facility] [address] [id number] [address] [place] [address], [place] [address] Jul, [facility] [address] [id number] [address] [place] [address], [place] [address] Jul, [facility] [address] [id number] [address] [place] [address], [place] [address] Jun, [facility] [address] [id number] [address] [place] [address], [place] [address] Jun, [facility] [address] [id number] [address] [place] [address], [place] [address] Jun, [facility] [address] [id number] [address] [place] [address], [place] [address] Jun, [facility] [address] [id number] [address] [place] [address], [place] [address] Jun, [facility] [address] [id number] [address] [place] [address], [place] [address] Jun, [facility] [address] [address] [id number] [address] [place] [address], [place] [address] May, [facility] [address] [id number] [address] [place] [address], [place] [address] May, [facility] [address] [id number] [address] [place] [address], [place] [address] May, [facility] [address] [id number] [address] [place] [address], [place] [address] May, [facility] [address] [id number] [address] [place] [address], [place] [address] May, [facility] [address] [id number] [address] [place] [address], [place] [address] Apr, [facility] [address] [id number] [address] [place] [address], [place] [address] Apr, [facility] [address] [id number] [address] [place] [address], [place] [address] Apr, [facility] [address] [id number] [address] [place] [address], [place] [address] Apr, [facility] [address] [id number] [address] [place] [address], [place] [address] March, [facility] [address] [id number] [address] [place] [address], [place] [address] March, [facility] [address] [id number] [address] [place] [address], [place] [address] March, [facility] [address] [id number] [address] [place] [address], [place] [address] March, [facility] [address] [id number] [address] [place] [address], [place] [address] March, [facility] [address] [id number] [address] [place] [address], [place] [address] March, [facility] [address] [id number] [address] [place] [address], [place] [address] Feb, [facility] [address] [id number] [address] [place] [address], [place] [address] Feb, [facility] [address] [id number] [address] [place] [address], [place] [address] Feb, [facility] [address] [id number] [address] [place] [address], [place] [address] Feb, [facility] [address] [id number] [facility] [address] Feb, [facility] [address] [id number] [address] [place] [address], [place] [address] Feb, [facility] [address] [id number] [address] [place] [address], [place] [address] Feb, [facility] [address] [id number] [address] [place] [address], [place] [address] Feb, [facility] [address] [id number] [address] [place] [address], [place] [address] Jan, [facility] [address] [id number] [address] [place] [address], [place] [address] Jan, [facility] [address] [id number] [address] [place] [address], [place] [address] Jan, [facility] [address] [id number] [address] [place] [address], [place] [address] Jan, [facility] [address] [id number] [address] [place] [address], [place] [address] Jan, [facility] [address] [id number] [address] [place] [address], [place] [address] Jan, [facility] [address] [id number] [address] [place] [address], [place] [address] Dec, [facility] [address] [id number] [address] [place] [address], [place] [address] Dec, [facility] [address] [id number] [address] [place] [address], [place] [address] Nov, [facility] [address] [id number] [address] [place] [address], [place] [address] Nov, [facility] [address] [id number] [address] [place] [address], [place] [address] Nov, [facility] [address] [id number] [address] [place] [address], [place] [address] 10 Nov, 2013 [facility] [address] [id number] [address] [place] [address], [place] [address] Nov, [facility] [address] [id number] [address] [place] [address], [place] [address] Nov, [facility] [address] [id number] [address] [place] [address], [place] [address] Nov, [facility] [address] [id number] [address] [place] [address], [place] [address] Nov, [facility] [address] [id number] [address] [place] [address], [place] [address] Nov, [facility] [address] [id number] [address] [place] [address], [place] [address] Nov, [facility] [address] [id number] [address] [place] [address], [place] [address] Nov, [facility] [address] [id number] [address] [place] [address], [place] [address] Nov, [facility] [address] [id number] [address] [place] [address], [place] [address] Nov, [facility] [address] [id number] [address] [place] [address], [place] [address] Nov, [facility] [address] [id number] [address] [place] [address], [place] [address] Nov, [facility] [address] [id number] [address] [place] [address], [place] [address] Oct, [facility] [address] [id number] [address] [place] [address], [place] [address] Oct, [facility] [address] [id number] [address] [place] [address], [place] [address] Oct, [facility] [address] [id number] [address] [place] [address], [place] [address] Oct, [facility] [address] [id number] [address] [place] [address] Oct, [facility] [address] [id number] [address] [place] [address] Oct, [facility] [address] [id number] [address] [place] [address] Oct, [facility] [address] [id number] [address] [place] [address] Oct, [facility] [address] [id number] [address] [place] [address] Oct, [facility] [address] [id number] [address] [place] [address] Aug, [facility] [address] [facility] [id number] [address] [place] [address] Aug, IMMUNIZATIONS No Known Immunizations SOCIAL HISTORY Never Assessed REASON FOR VISIT Controlled Med Refill-Due 04/26/18 PLAN OF CARE VITAL SIGNS MEDICATIONS Medication Instructions Dosage Frequency Start Date End Date Duration S tatus Clonazepam 0.5 MG Orally twice a day 1 tablet as needed for anxiety 12h Feb, 28 days Active Oxycodone HCl 10 mg Orally every 6 hrs 1 tablet as needed 6h Apr, 28 days Active Clonazepam 1 MG Orally Once a day 1 tablet at bedtime 24h 25 Sep 28 days Active MS Contin 15 mg Orally every 12 hrs 1 tablet 12h Apr, 28 days Active RESULTS No Results PROCEDURES No Known procedures INSTRUCTIONS MEDICATIONS ADMINISTERED No Known Medications MEDICAL (GENERAL) HISTORY Type Description Date Medical History hypertension Medical History asthma Medical History Arthritis Medical History Hypoglycemia Medical History Heart Cath 11/05/2013 Medical History herniated disc--Seen by Dr. 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 No longer in practice. Band removed 2008 Surgical History hysterectomy-Total r/t fibroid tumors 20 Surgical History orthopedic surgery--left low er leg [...]
--- OUTSIDE RECORDS SUMMARY | 2020-06-19 02:19 | XMS REPORT ---
Author Author Mahsa ROBERTS Organization [facility] [facility] Address [address] [place] [address] Care Team Providers Care Catcher Helper Name Role Phone ARMANDO ASHVIN Unavailable PROBLEMS Type Condition ICD9-CM Code IVY00-YC Code Onset Dates Condition S tatus SNOMED Code Problem Chronic prescription opiate use Z79.899 Active 962610918 Problem B12 deficiency E53.8 Active 78824 4004 Problem Bilateral low back pain, with sciatica presence unspecifie d M54.5 Active 112632677 Problem CKD (chronic kidney disease) stage 3, GFR 30-59 ml/min N18.3 Active 761732352 Problem Drug induced constipation K59.03 Acti ve [id number] Problem GERD (gastroesophageal reflux disease) K21.9 Active 205747960 Problem Allergic rhinitis J30.9 Active 61 189573 Problem Chronic obstructive pulmonary disease, unspecified COPD ty pe J44.9 Active 78670386 Problem Fibromyalgia M79.7 Active 3377817 7 Problem Chronic pain syndrome G89.4 Active 270022078 Problem Primary insomnia F51.01 Active 193 133161 Problem Other constipation K59.09 Active 1 [id number] Problem Atherosclerosis of [place] co ronary artery of [place] heart without angina pectoris I25.10 Active 1958400024947 Problem Major depressive disorder, recurrent episode, un specified severity F33.9 Active 94521398 Problem Anxiety F41.9 Active 41956532 Problem Hyperlipidemia, unspecified hyperlipidemia E78.5 Active 24490925 Problem Essential hypertension I10 Active 16712579 Problem Chronic prescription benzodiazepine use Z79.899 Active 753914252 ALLERGIES No Information ENCOUNTERS Encounter Location Date Diagnosis [facility] [address] [facility] [id number] [address] [place] [address] Jul, [facility] [facility] [address] [facility] [id number] [address] [place] [address] Jun, Chronic pain syndrome G89.4 [facility] [place] [facility] [address] [facility] [id number] [address] [place] [address] May, Chronic pain syndrome G89.4 and Anxiety F41.9 [facility] [place] [facility] [address] [facility] [id number] [address] [place] [address] Apr, Anxiety F41.9 [facility] [place] [facility] [address] [place] [id number] [address] [place] [address] Apr, Chronic prescription opiate use Z79.899 ; Chronic pain syndrome G89.4 ; Essential hypertension I10 ; Allergic rhinitis J30.9 and CKD (chronic kidney disease) stage 3, GFR 30-59 ml/min N18.3 [place] [address] [facility] [id number] [address] [place] [address] Apr, [place] [address] [facility] [id number] [address] [place] [address] March, Anxiety F41.9 and Chronic pa in syndrome G89.4 [facility] [place] [facility] [address] [facility] [id number] [address] [place] [address] March, CKD (chronic kidney disease) stage 3, GFR 30-59 ml/min N18.3 ; B12 deficiency E53.8 and Hyperlipidemia, unspecified hyperlipidemia E78.5 [place] [address] [facility] [id number] [address] [place] [address] March, Anxiety F41.9 and Chronic pa in syndrome G89.4 [facility] [address] [facility] [id number] [address] [place] [address] Feb, Anxiety F41.9 and Chronic pa in syndrome G89.4 [facility] [place] [facility] [address] [facility] [id number] [address] [place] [address] Jan, B12 deficiency E53.8 [facility] [facility] [address] [facility] [id number] [address] [place] [address] Jan, [facility] [address] [facility] [id number] [address] [place] [address] Jan, Anxiety F41.9 ; Chronic pain syndrome G89.4 and Essential hypertension I10 [place] [address] [place] [id number] [address] [place] [address] Jan, CKD (chronic kidney disease) stage 3, [...] Subacromial bursitis of right shoulder joint M75.51 [place] [address] [address] Dec, Essential hypertension I10 [place] [address] [address] 15 Dec, 2017 Chronic pain syndrome G89.4 [place] [address] [address] Dec, Chronic pain syndrome G89.4 [place] [address] [place] [id number] [address] [place] [address] Nov, [place] [address] [place] [id number] [place] [address] Nov, Chronic pain syndrome G89.4 and Anxiety F41.9 [place] [address] [place] [id number] [address] [place] [address] Oct, Chronic pain syndrome G89.4 ; Other constipation K59.09 and Chronic prescription opiate use Z79.899 [place] [address] [place] [id number] [address] [place] [address] Oct, Chronic pain syndrome G89.4 and Anxiety F41.9 [place] [address] [place] [id number] [address] [place] [address] Sep, Essential hypertension I10 [place] [address] [facility] [id number] [address] [place] [address] Sep, Chronic pain syndrome G89.4 and Anxiety F41.9 [place] [address] [facility] [id number] [address] [place] [address] Aug, Chronic pain syndrome G89.4 and Anxiety F41.9 [place] [address] [place] [id number] [address] [place] [address] Jul, Essential hypertension I10 [place] [id number] [place] [address] 22 Jul, 2017 Chronic obstructive pulmonar y disease, unspecified COPD type J44.9 [place] [address] [place] [id number] [address] [place] [address] Jul, Chronic pain syndrome G89.4 and Anxiety F41.9 [place] [address] [place] [id number] [address] [place] [address] 13 Jul, 2017 Chronic pain syndrome G89.4 ; Essential hypertension I10 ; Fibromyalgia M79.7 ; CKD (chronic kidney disease) stage 3, GFR 30-59 ml/min N18.3 ; Subacromial bursitis, right M75.51 and Goals of care, co unseling/discussion Z71.89 [place] [id number] [address] [place] [address] Jun, Chronic pain syndrome G89.4 and Anxiety F41.9 [place] [address] [place] [id number] [address] [place] [address] May, Chronic pain syndrome G89.4 and Anxiety F41.9 [place] [address] [place] [id number] [address] [place] [address] Apr, Chronic pain syndrome G89.4 and Anxiety F41.9 [place] [address] [place] [id number] [address] [place] [address] Apr, Drug induced constipation K5 9.03 ; Chronic pain syndrome G89.4 and CKD (chronic kidney disease) stage 3, GFR 30-59 ml/min N18.3 [facility] [address] [id number] [address] [place] [address] Apr, Chronic pain syndrome G89.4 and Anxiety F41.9 [facility] [facility] [address] [id number] [address] [place] [address] March, Chronic pain syndrome G89.4 and Anxiety F41.9 [facility] [address] [id number] [address] [place] [address] March, Decreased GFR R94.4 [facility] [address] [id number] [address] [place] [address] Feb, [facility] [address] [id number] [address] [place] [address] Feb, Chronic pain syndrome G89.4 and Anxiety F41.9 [facility] [address] [id number] [address] [place] [address] Jan, Decreased GFR R94.4 [place] [address] [facility] [id number] [address] [place] [address] Jan, Decreased GFR R94.4 [place] [address] [facility] [id number] [address] [place] [address] Jan, Allergic rhinitis J30.9 ; Es sential hypertension I10 ; Major depressive disorder, recurrent episode, unspecified severity F33.9 and Primary insomnia F51.01 [facility] [address] [id number] [address] [place] [address] Jan, Acute right-sided thoracic b ack pain M54.6 ; Subacromial bursitis of right shoulder joint M75.51 ; Chronic pain syndrome G89.4 and Anxiety F41.9 [facility] [address] [facility] [id number] [address] [place] [address] Jan, Decreased GFR R94.4 [facility] [address] [facility] [id number] [address] [place] [address] Dec, Decreased GFR R94.4 [facility] [address] [place] [id number] [place] [address] Dec, Decreased GFR R94.4 [facility] [address] [place] [id number] [place] [address] Dec, Decreased GFR R94.4 [facility] [address] [place] [id number] [place] [address] Dec, Decreased GFR R94.4 [place] [address] [place] [id number] [place] [address] Dec, Anxiety F41.9 and Bilateral low back pain, with sciatica presence unspecified M54.5 [place] [address] [address] Dec, Need for hepatitis C screeni ng test Z11.59 ; B12 deficiency E53.8 ; Hyperlipidemia, unspecified hyperlipidemia E78.5 and Thrombocytosis D47.3 [place] [address] [address] Nov, Need for hepatitis C screeni ng test Z11.59 [place] [address] [address] Nov, Anxiety F41.9 and Bilateral low back pain, with sciatica presence unspecified M54.5 [place] [address] [address] Oct, Bilateral low back pain, wit h sciatica presence unspecified M54.5 ; Chronic prescription opiate use Z79.899 ; Anxiety F41.9 ; Essential hypertension I10 ; Hyperlipidemia, unspecified hyperlipidemia E78.5 ; Health care maintenance Z00.00 and Thrombocytosis D47.3 [place] [address] [address] Sep, [place] [address] [place] [address] Sep, [facility] [address] [facility] [id number] [address] [place] [address] Aug, [facility] [address] [place] [id number] [address] [place] [address] Jul, B12 deficiency E53.8 [facility] [address] [place] [address] Jul, [facility] [address] [address] Jul, Essential hypertension I10 ; Chronic pain syndrome G89.4 ; Anxiety F41.9 ; Screening for breast cancer Z12.39 ; Atherosclerosis of [place] coronary artery of [place] heart without angina pectoris I25.10 ; Major depressive disorder, recurrent episode, unspecified severity F33.9 ; Primary insomnia F51.01 and Allergic rhinitis J30.9 [place] [address] [place] [address] Jun, [facility] [address] [place] [id number] [address] [place] [address] Jun, Leg wound, right, initial en counter S81.801A and Encounter for immunization Z23 [place] [address] [place] [id number] [address] [place] [address] Jun, Open wound of right ear, uns pecified open wound type, initial encounter S01.301A [facility] [facility] [address] [place] [id number] [address] [place] [address] May, B12 deficiency E53.8 [facility] [address] [place] [address] May, [facility] [address] [address] May, [facility] [address] [place] [address] May, Chronic pain syndrome G89.4 ; Chronic prescription opiate use Z79.899 ; Allergic rhinitis J30.9 ; Essential hypertension I10 and Non-healing skin lesion L98.9 [facility] [address] [place] [id number] [address] [place] [address] Apr, [facility] [address] [place] [id number] [address] [place] [address] March, [facility] [address] [address] Feb, [facility] [address] [place] [id number] [address] [place] [address] Feb, [facility] [address] [address] Feb, Chronic pain syndrome G89.4 ; Anxiety F41.9 ; B12 deficiency E53.8 ; Allergic rhinitis J30.9 ; Fibromyalgia M79.7 ; Actinic keratosis L57.0 ; Skin rash R21 ; Open wound of right ear, unspecified open wound type, initial encounter S01.301A ; Subacromial bursitis, right M75.51 ; GERD (gastroesophageal reflux disease) K21.9 and Chronic obstructive pulmonary disease, unspecified COPD type J44.9 [facility] [place] [facility] [address] [place] [address] Jan, [facility] [facility] [address] [place] [address] Jan, Essential hypertension I10 [facility] [address] [place] [id number] [address] [place] [address] Jan, [facility] [facility] [address] [facility] [id number] [address] [place] [address] Jan, [facility] [address] [place] [id number] [address] [place] [address] Jan, [facility] [facility] [address] [place] [id number] [address] [place] [address] Dec, [place] [address] [facility] [id number] [address] [place] [address] 16 Dec, 2015 Essential hypertension I10 [facility] [facility] [address] [facility] [id number] [address] [place] [address] Dec, [facility] [facility] [address] [facility] [id number] [address] [place] [address] Dec, B12 deficiency E53.8 and Ess ential hypertension I10 [facility] [address] [facility] [id number] [address] [place] [address] Dec, [facility] [facility] [address] [facility] [id number] [address] [place] [address] Nov, Right shoulder pain M25.511 [facility] [place] [facility] [address] [address] Nov, Right shoulder pain M25.511 [facility] [place] [facility] [address] [address] Nov, Essential hypertension I10 a nd B12 deficiency E53.8 [facility] [facility] [address] [address] Nov, Major depressive disorder, r ecurrent episode, unspecified severity F33.9 ; Anxiety F41.9 ; Chronic pain syndrome G89.4 ; Essential hypertension I10 ; Hyperlipidemia, unspecified hyperlipidemia E78.5 ; Chronic prescription opiate use Z79.899 ; Allergic rhinitis J30.9 ; B12 deficiency E53.8 and Right shoulder pain M25.511 [facility] [facility] [address] [place] [address] Oct, [facility] [place] [facility] [address] [address] Oct, [facility] [facility] [address] [place] [id number] [address] [place] [address] Sep, [facility] [facility] [address] [address] Sep, [facility] [place] [facility] [address] [facility] [id number] [address] [place] [address] Aug, [facility] [facility] [address] [id number] [address] [place] [address] Aug, [facility] [facility] [address] [facility] [id number] [address] [place] [address] Aug, [facility] [facility] [address] [facility] [id number] [address] [place] [address] Aug, Other constipation K59.09 ; Hyperlipidemia, unspecified hyperlipidemia E78.5 ; Essential hypertension I10 ; Primary insomnia F51.01 ; Anxiety F41.9 ; Chronic pain syndrome G89.4 ; Right shoulder pain M25.511 and Acute cystitis without hematuria N30.00 [facility] [facility] [address] [facility] [id number] [address] [place] [address] Jul, [facility] [facility] [address] [facility] [id number] [address] [place] [address] Jul, [facility] [place] [facility] [address] [facility] [id number] [address] [place] [address] Jun, [facility] [facility] [address] [facility] [id number] [address] [place] [address] Jun, [facility] [facility] [address] [facility] [id number] [address] [place] [address] Jun, [facility] [facility] [address] [facility] [id number] [address] [place] [address] May, [facility] [facility] [address] [facility] [id number] [address] [place] [address] May, Other chronic pain 338.29 ; Hypertension 401.9 and Constipation due to opioid therapy 564.09 [facility] [facility] [address] [facility] [id number] [address] [place] [address] May, [facility] [place] [facility] [address] [facility] [id number] [address] [place] [address] May, [facility] [address] [id number] [address] [place] [address] 17 Apr, 2015 [facility] [address] [id number] [address] [place] [address] 17 Apr, 2015 Unspecified essential hypert ension 401.9 [facility] [address] [id number] [address] [place] [id number] 16 Apr, 2015 [facility] [address] [id number] [address] [place] [address] Apr, [facility] [address] [id number] [address] [place] [address] Apr, [facility] [address] [id number] [address] [place] [address] Apr, [facility] [address] [id number] [address] [place] [address] Apr, [facility] [address] [id number] [address] [place] [address] Apr, [facility] [address] [id number] [address] [place] [address] March, Unspecified essential hypert ension 401.9 [facility] [address] [id number] [address] [place] [address] March, [facility] [address] [id number] [address] [place] [address] March, [facility] [address] [id number] [address] [place] [address] 14 Feb, 2015 [facility] [address] [id number] [address] [place] [address] Feb, [facility] [address] [id number] [address] [place] [phone] Jan, [facility] [address] [id number] [address] [place] [phone] Jan, [facility] [place] [facility] [address] [id number] [address] [place] [address], [place] [address] 17 Jan, 2015 [facility] [address] [id number] [address] [place] [address], [place] [address] 17 Jan, 2015 [facility] [place] [facility] [address] [id number] [address] [place] [address], [place] [address] 13 Jan, 2015 [facility] [place] [facility] [address] [id number] [address] [place] [address], [place] [address] Jan, [facility] [address] [id number] [address] [place] [address], [place] [address] Jan, [facility] [place] [facility] [address] [id number] [address] [place] [address], [place] [address] 16 Dec, 2014 [facility] [place] [facility] [address] [id number] [address] [place] [address], [place] [address] 16 Dec, 2014 [facility] [place] [facility] [address] [id number] [address] [place] [address], [place] [address] Dec, [facility] [place] [facility] [address] [id number] [address] [place] [address], [place] [address] Nov, [facility] [place] [facility] [address] [id number] [address] [place] [address], [place] [address] Nov, [facility] [address] [id number] [address] [place] [address], [place] [address] Oct, [facility] [place] [facility] [address] [id number] [address] [place] [address], [place] [address] Oct, [facility] [place] [facility] [address] [id number] [address] [place] [address], [place] [address] Oct, [facility] [place] [facility] [address] [id number] [address] [place] [address], [place] [address] Oct, [facility] [place] [facility] [address] [id number] [address] [place] [address], [place] [address] 08 Oct, 2014 [facility] [place] [facility] [address] [id number] [address] [place] [address] Oct, [facility] [place] [facility] [address] [id number] [address] [place] [address], [place] [address] Oct, [facility] [place] [facility] [address] [id number] [address] [place] [address], [place] [address] Oct, [facility] [place] [facility] [address] [id number] [address] [place] [address], [place] [address] Sep, [facility] [place] [facility] [address] [id number] [address] [place] [address], [place] [address] Sep, [facility] [place] [facility] [address] [id number] [address] [place] [address], [place] [address] Sep, [facility] [address] [id number] [address] [place] [address], [place] [address] Sep, [facility] [address] [id number] [address] [place] [address], [place] [address] Sep, [facility] [address] [id number] [address] [place] [address], [place] [address] Sep, [facility] [address] [id number] [address] [place] [address], [place] [address] Aug, [facility] [address] [id number] [address] [place] [address], [place] [address] Aug, [facility] [address] [id number] [address] [place] [address], [place] [address] Aug, [facility] [address] [id number] [address] [place] [address], [place] [address] Aug, [facility] [address] [id number] [address] [place] [address], [place] [address] Aug, [facility] [address] [id number] [address] [place] [address], [place] [address] Aug, [facility] [address] [id number] [address] [place] [address], [place] [address] Aug, [facility] [address] [id number] [facility] [place] [address] 14 Aug, 2014 [facility] [address] [id number] [facility] [place] [address] Aug, [facility] [address] [id number] [facility] [place] [address] Aug, [facility] [address] [id number] [facility] [place] [address] Jul, [facility] [address] [id number] [facility] [place] [address] Jul, [facility] [address] [id number] [address] [place] [address], [place] [address] Jul, [facility] [address] [id number] [address] [place] [address], [place] [address] Jul, [facility] [address] [id number] [address] [place] [address], [place] [address] Jul, [facility] [address] [id number] [address] [place] [address], [place] [address] Jul, [facility] [address] [id number] [address] [place] [address], [place] [address] Jun, [facility] [address] [id number] [address] [place] [address], [place] [address] Jun, [facility] [address] [id number] [address] [place] [address], [place] [address] Jun, [facility] [address] [id number] [address] [place] [address], [place] [address] Jun, [facility] [address] [id number] [address] [place] [address], [place] [address] Jun, [facility] [address] [id number] [address] [place] [address], [place] [address] Jun, [facility] [address] [id number] [address] [place] [address], [place] [address] May, [facility] [address] [id number] [facility] [place] [address] May, [facility] [address] [id number] [facility] [place] [address] May, [facility] [address] [id number] [facility] [place] [address] May, [facility] [facility] [address] [id number] [address] [place] [address], [place] [address] May, [facility] [address] [id number] [address] [place] [address], [place] [address] Apr, [facility] [address] [id number] [address] [place] [address], [place] [address] Apr, [facility] [address] [id number] [address] [place] [address], [place] [address] Apr, [facility] [address] [id number] [address] [place] [address], [place] [address] Apr, [facility] [address] [id number] [address] [place] [address], [place] [address] March, [facility] [address] [id number] [address] [place] [address], [place] [address] March, [facility] [address] [id number] [address] [place] [address], [place] [address] March, [facility] [address] [id number] [address] [place] [address], [place] [address] March, [facility] [address] [id number] [address] [place] [address], [place] [address] March, [facility] [address] [id number] [address] [place] [address], [place] [address] March, [facility] [address] [id number] [address] [place] [address], [place] [address] Feb, [facility] [address] [id number] [facility] [place] [address] 14 Feb, 2014 [facility] [address] [id number] [address] [place] [address], [place] [address] Feb, [facility] [address] [id number] [facility] [place] [address] Feb, [facility] [address] [id number] [address] [place] [address], [place] [address] Feb, [facility] [address] [id number] [address] [place] [address], [place] [address] Feb, [facility] [address] [id number] [address] [place] [address], [place] [address] Feb, [facility] [address] [id number] [address] [place] [address], [place] [address] Feb, [facility] [address] [id number] [address] [place] [address], [place] [address] Jan, [facility] [address] [id number] [address] [place] [address], [place] [address] Jan, [facility] [address] [id number] [address] [place] [address], [place] [address] Jan, [facility] [address] [id number] [address] [place] [address], [place] [address] Jan, [facility] [address] [id number] [address] [place] [address], [place] [address] Jan, [facility] [address] [id number] [address] [place] [address], [place] [address] Jan, [facility] [address] [id number] [address] [place] [address], [place] [address] Dec, [facility] [address] [id number] [address] [place] [address], [place] [address] Dec, [facility] [address] [id number] [address] [place] [address], [place] [address] Nov, [facility] [address] [id number] [address] [place] [address], [place] [address] Nov, [facility] [address] [id number] [address] [place] [address], [place] [address] Nov, [facility] [address] [id number] [address] [place] [address], [place] [address] Nov, [facility] [address] [id number] [address] [place] [address], [place] [address] Nov, [facility] [address] [id number] [address] [place] [address], [place] [address] Nov, [facility] [address] [id number] [address] [place] [address], [place] [address] Nov, [facility] [address] [id number] [address] [place] [address], [place] [address] Nov, [facility] [address] [id number] [address] [place] [address], [place] [address] Nov, [facility] [address] [id number] [address] [place] [address], [place] [address] Nov, [facility] [address] [id number] [address] [place] [address], [place] [address] Nov, [facility] [address] [id number] [address] [place] [address], [place] [address] Nov, [facility] [address] [id number] [address] [place] [address], [place] [address] Nov, [facility] [address] [id number] [address] [place] [address], [place] [address] Nov, [facility] [address] [id number] [address] [place] [address], [place] [address] Nov, [facility] [address] [id number] [address] [place] [address], [place] [address] Oct, [facility] [address] [id number] [address] [place] [address] Oct, [facility] [address] [id number] [address] [place] [address] Oct, [facility] [address] [id number] [address] [place] [address] Oct, [facility] [address] [id number] [address] [place] [address] Oct, [facility] [address] [id number] [address] [place] [address] Oct, [facility] [address] [id number] [address] [place] [address] Oct, [facility] [address] [id number] [address] [place] [address] Oct, [facility] [address] [id number] [address] [place] [address] Oct, [facility] [address] [id number] [address] [place] [address] Aug, [facility] [address] [id number] [address] [place] [address] Aug, IMMUNIZATIONS No Known Immunizations SOCIAL HISTORY Never Assessed REASON FOR VISIT Prior Authorization Request-B12 injection PLAN OF CARE VITAL SIGNS MEDICATIONS Unknown Medications RESULTS No Results PROCEDURES No Known procedures INSTRUCTIONS MEDICATIONS ADMINISTERED No Known Medications MEDICAL (GENERAL) HISTORY Type Description Date Medical History hypertension Medical History asthma Medical History Arthritis Medical History Hypoglycemia Medical History Heart Cath 11/05/2013 Medical History herniated disc--Seen by Dr. Troy Michelle pain specialist in [place], [place] Medical History Chronic low back pain [...]
--- OUTSIDE RECORDS SUMMARY | 2020-06-19 02:19 | XMS REPORT ---
Author Author Mahsa ROBERTS Organization [facility] [place] Address [address] [place] [address] Care Team Providers Care Composite Bond Technician Name Role Phone ARMANDO ASHVIN Unavailable PROBLEMS Type Condition ICD9-CM Code QIT64-YU Code Onset Dates Condition S tatus SNOMED Code Problem Chronic prescription opiate use Z79.899 Active 109868733 Problem B12 deficiency E53.8 Active 21661 4004 Problem Bilateral low back pain, with sciatica presence unspecifie d M54.5 Active 622588114 Problem CKD (chronic kidney disease) stage 3, GFR 30-59 ml/min N18.3 Active 711713516 Problem Drug induced constipation K59.03 Acti ve [id number] Problem GERD (gastroesophageal reflux disease) K21.9 Active 413735375 Problem Allergic rhinitis J30.9 Active 61 503415 Problem Chronic obstructive pulmonary disease, unspecified COPD ty pe J44.9 Active 59864735 Problem Fibromyalgia M79.7 Active 3017960 7 Problem Chronic pain syndrome G89.4 Active 639259157 Problem Primary insomnia F51.01 Active 193 911094 Problem Other constipation K59.09 Active 1 [id number] Problem Atherosclerosis of [place] co ronary artery of [place] heart without angina pectoris I25.10 Active [id number] Problem Major depressive disorder, recurrent episode, un specified severity F33.9 Active 07496859 Problem Anxiety F41.9 Active 97319233 Problem Hyperlipidemia, unspecified hyperlipidemia E78.5 Active 51031177 Problem Essential hypertension I10 Active 71472767 Problem Chronic prescription benzodiazepine use Z79.899 Active 298750363 ALLERGIES No Information ENCOUNTERS Encounter Location Date Diagnosis [facility] [place] [address] [facility] [id number] [address] [place] [id number] May, Chronic pain syndrome G89.4 and Anxiety F41.9 [facility] [place] [address] [facility] [id number] [address] [place] [phone] Apr, Anxiety F41.9 [place] [address] [facility] [id number] [address] [place] [phone] Apr, Chronic prescription opiate use Z79.899 ; Chronic pain syndrome G89.4 ; Essential hypertension I10 ; Allergic rhinitis J30.9 and CKD (chronic kidney disease) stage 3, GFR 30-59 ml/min N18.3 [place] [address] [place] [id number] [address] [place] [id number] Apr, [place] [address] [place] [id number] [address] [place] [phone] March, Anxiety F41.9 and Chronic pa in syndrome G89.4 [place] [address] [place] [id number] [address] [place] [phone] March, CKD (chronic kidney disease) stage 3, GFR 30-59 ml/min N18.3 ; B12 deficiency E53.8 and Hyperlipidemia, unspecified hyperlipidemia E78.5 [place] [address] [place] [id number] [address] [place] [phone] March, Anxiety F41.9 and Chronic pa in syndrome G89.4 [place] [address] [place] [id number] [address] [place] [phone] Feb, Anxiety F41.9 and Chronic pa in syndrome G89.4 [place] [address] [place] [id number] [address] [place] [id number] Jan, B12 deficiency E53.8 [place] [address] [facility] [id number] [address] [place] [phone] Jan, [place] [address] [place] [id number] [address] [place] [phone] Jan, Anxiety F41.9 ; Chronic pain syndrome G89.4 and Essential hypertension I10 [place] [address] [place] [id number] [address] [place] [id number] Jan, CKD (chronic kidney disease) stage 3, [...] of right shoulder joint M75.51 [place] [address] [place] [phone] Dec, Essential hypertension I10 [place] [address] [address] 15 Dec, 2017 Chronic pain syndrome G89.4 [place] [address] [place] [id number] [place] [phone] Dec, Chronic pain syndrome G89.4 [place] [address] [place] [phone] Nov, [place] [address] [id number] Nov, Chronic pain syndrome G89.4 and Anxiety F41.9 [place] [address] [place] [id number] [address] [place] [phone] Oct, Chronic pain syndrome G89.4 ; Other constipation K59.09 and Chronic prescription opiate use Z79.899 [place] [address] [place] [id number] [address] [place] [id number] Oct, Chronic pain syndrome G89.4 and Anxiety F41.9 [place] [address] [place] [id number] [address] [place] [id number] Sep, Essential hypertension I10 [place] [address] [place] [id number] [address] [place] [phone] Sep, Chronic pain syndrome G89.4 and Anxiety F41.9 [place] [address] [place] [id number] [address] [place] [phone] Aug, Chronic pain syndrome G89.4 and Anxiety F41.9 [place] [address] [place] [id number] [address] [place] [id number] Jul, Essential hypertension I10 [place] [address] [facility] [id number] [address] [place] [id number] 22 Jul, 2017 Chronic obstructive pulmonar y disease, unspecified COPD type J44.9 [place] [address] [place] [id number] [address] [place] [phone] Jul, Chronic pain syndrome G89.4 and Anxiety F41.9 [place] [address] [place] [id number] [address] [place] [id number] 13 Jul, 2017 Chronic pain syndrome G89.4 ; Essential hypertension I10 ; Fibromyalgia M79.7 ; CKD (chronic kidney disease) stage 3, GFR 30-59 ml/min N18.3 ; Subacromial bursitis, right M75.51 and Goals of care, co unseling/discussion Z71.89 [place] [address] [place] [id number] [address] [place] [phone] Jun, Chronic pain syndrome G89.4 and Anxiety F41.9 [place] [address] [place] [id number] [address] [place] [phone] May, Chronic pain syndrome G89.4 and Anxiety F41.9 [place] [address] [place] [id number] [address] [place] [phone] Apr, Chronic pain syndrome G89.4 and Anxiety F41.9 [place] [address] [place] [id number] [address] [place] [id number] 14 Apr, 2017 Drug induced constipation K5 9.03 ; Chronic pain syndrome G89.4 and CKD (chronic kidney disease) stage 3, GFR 30-59 ml/min N18.3 [place] [address] [place] [id number] [address] [place] [phone] 02 Apr, 2017 Chronic pain syndrome G89.4 and Anxiety F41.9 [facility] [place] [address] [facility] [id number] [address] [place] [phone] March, Chronic pain syndrome G89.4 and Anxiety F41.9 [facility] [place] [address] [facility] [id number] [address] [place] [phone] March, Decreased GFR R94.4 [facility] [place] [address] [facility] [id number] [address] [place] [phone] Feb, [facility] [place] [address] [facility] [id number] [address] [place] [phone] Feb, Chronic pain syndrome G89.4 and Anxiety F41.9 [place] [address] [facility] [id number] [address] [place] [phone] Jan, Decreased GFR R94.4 [place] [address] [facility] [id number] [address] [place] [phone] Jan, Decreased GFR R94.4 [facility] [place] [address] [place] [id number] [address] [place] [phone] Jan, Allergic rhinitis J30.9 ; Es sential hypertension I10 ; Major depressive disorder, recurrent episode, unspecified severity F33.9 and Primary insomnia F51.01 [facility] [place] [address] [facility] [id number] [address] [place] [phone] Jan, Acute right-sided thoracic b ack pain M54.6 ; Subacromial bursitis of right shoulder joint M75.51 ; Chronic pain syndrome G89.4 and Anxiety F41.9 [facility] [place] [address] [facility] [id number] [address] [place] [id number] Jan, Decreased GFR R94.4 [place] [address] [facility] [id number] [address] [place] [phone] Dec, Decreased GFR R94.4 [place] [address] [facility] [id number] [address] [place] [phone] Dec, Decreased GFR R94.4 [facility] [place] [address] [place] [id number] [address] [place] [phone] Dec, Decreased GFR R94.4 [place] [address] [place] [id number] [address] [place] [phone] Dec, Decreased GFR R94.4 [place] [address] [place] [id number] [address] [place] [id number] Dec, Anxiety F41.9 and Bilateral low back pain, with sciatica presence unspecified M54.5 [place] [address] [facility] [id number] [address] [place] [phone] Dec, Thrombocytosis D47.3 ; Hyper lipidemia, unspecified hyperlipidemia E78.5 ; Need for hepatitis C screening test Z11.59 and B12 deficiency E53.8 [place] [address] [address] Nov, Need for hepatitis C screeni ng test Z11.59 [place] [address] [address] Nov, Anxiety F41.9 and Bilateral low back pain, with sciatica presence unspecified M54.5 [place] [address] [place] [id number] [address] [place] [id number] Oct, Bilateral low back pain, wit h sciatica presence unspecified M54.5 ; Chronic prescription opiate use Z79.899 ; Anxiety F41.9 ; Essential hypertension I10 ; Hyperlipidemia, unspecified hyperlipidemia E78.5 ; Health care maintenance Z00.00 and Thrombocytosis D47.3 [place] [address] [place] [address] Sep, [place] [address] [place] [id number] [address] [place] [phone] Sep, [place] [address] [place] [id number] [address] [place] [id number] Aug, [place] [address] [id number] Jul, B12 deficiency E53.8 [facility] [place] [address] [facility] [id number] [address] [place] [id number] Jul, [facility] [place] [address] [facility] [id number] [address] [place] [id number] Jul, Essential hypertension I10 ; Chronic pain syndrome G89.4 ; Anxiety F41.9 ; Screening for breast cancer Z12.39 ; Atherosclerosis of [place] coronary artery of [place] heart without angina pectoris I25.10 ; Major depressive disorder, recurrent episode, unspecified severity F33.9 ; Primary insomnia F51.01 and Allergic rhinitis J30.9 [facility] [place] [address] [facility] [id number] [address] [place] [id number] Jun, [facility] [address] [facility] [id number] [address] [place] [id number] Jun, Leg wound, right, initial en counter S81.801A and Encounter for immunization Z23 [facility] [place] [address] [facility] [id number] [address] [place] [id number] Jun, Open wound of right ear, uns pecified open wound type, initial encounter S01.301A [place] [address] [facility] [id number] [address] [place] [id number] May, B12 deficiency E53.8 [place] [address] [facility] [id number] [address] [place] [phone] May, [facility] [place] [address] [facility] [id number] [address] [place] [phone] May, [facility] [place] [address] [facility] [id number] [address] [place] [address] May, Chronic pain syndrome G89.4 ; Chronic prescription opiate use Z79.899 ; Allergic rhinitis J30.9 ; Essential hypertension I10 and Non-healing skin lesion L98.9 [place] [address] [facility] [id number] [address] [place] [phone] Apr, [place] [address] [facility] [id number] [address] [place] [phone] March, [facility] [place] [address] [place] [id number] [address] [place] [address] Feb, [facility] [place] [address] [facility] [id number] [address] [place] [id number] Feb, [facility] [place] [address] [id number] Feb, Chronic pain syndrome G89.4 ; Anxiety F41.9 ; B12 deficiency E53.8 ; Allergic rhinitis J30.9 ; Fibromyalgia M79.7 ; Actinic keratosis L57.0 ; Skin rash R21 ; Open wound of right ear, unspecified open wound type, initial encounter S01.301A ; Subacromial bursitis, right M75.51 ; GERD (gastroesophageal reflux disease) K21.9 and Chronic obstructive pulmonary disease, unspecified COPD type J44.9 [facility] [place] [address] [place] [id number] [address] [place] [phone] 30 Jan, 2016 [facility] [place] [address] [place] [id number] [address] [place] [phone] Jan, Essential hypertension I10 [facility] [place] [address] [place] [id number] [address] [place] [phone] Jan, [facility] [place] [address] [place] [id number] [address] [place] [phone] Jan, [facility] [place] [address] [place] [id number] [address] [place] [phone] Jan, [facility] [place] [address] [place] [id number] [address] [place] [phone] Dec, [facility] [place] [address] [place] [id number] [address] [place] [phone] Dec, Essential hypertension I10 [facility] [place] [address] [place] [id number] [address] [place] [phone] Dec, [facility] [place] [address] [facility] [id number] [address] [place] [id number] 12 Dec, 2015 B12 deficiency E53.8 and Ess ential hypertension I10 [facility] [place] [address] [facility] [id number] [address] [place] [id number] 12 Dec, 2015 [facility] [place] [address] [place] [id number] [address] [place] [id number] Nov, Right shoulder pain M25.511 [facility] [place] [address] [place] [id number] [address] [place] [phone] Nov, Right shoulder pain M25.511 [facility] [place] [address] [phone] Nov, Essential hypertension I10 a nd B12 deficiency E53.8 [facility] [place] [address] [place] [id number] [place] [phone] Nov, Major depressive disorder, r ecurrent episode, unspecified severity F33.9 ; Anxiety F41.9 ; Chronic pain syndrome G89.4 ; Essential hypertension I10 ; Hyperlipidemia, unspecified hyperlipidemia E78.5 ; Chronic prescription opiate use Z79.899 ; Allergic rhinitis J30.9 ; B12 deficiency E53.8 and Right shoulder pain M25.511 [facility] [place] [address] [place] [id number] [address] [place] [id number] 17 Oct, 2015 [facility] [place] [address] [place] [id number] [address] [place] [phone] Oct, [facility] [place] [address] [place] [id number] [address] [place] [phone] Sep, [facility] [place] [address] [place] [id number] [address] [place] [phone] Sep, [facility] [place] [address] [place] [id number] [address] [place] [phone] Aug, [facility] [place] [address] [place] [id number] [address] [place] [phone] Aug, [facility] [place] [address] [id number] [address] [place] [id number] Aug, [facility] [place] [address] [facility] [id number] [address] [place] [id number] Aug, Other constipation K59.09 ; Hyperlipidemia, unspecified hyperlipidemia E78.5 ; Essential hypertension I10 ; Primary insomnia F51.01 ; Anxiety F41.9 ; Chronic pain syndrome G89.4 ; Right shoulder pain M25.511 and Acute cystitis without hematuria N30.00 [facility] [place] [address] [id number] [address] [place] [id number] Jul, [facility] [place] [address] [id number] [address] [place] [phone] Jul, [facility] [place] [address] [facility] [id number] [address] [place] [phone] Jun, [facility] [place] [address] [facility] [id number] [address] [place] [id number] Jun, [facility] [place] [address] [facility] [id number] [address] [place] [id number] Jun, [facility] [place] [address] [facility] [id number] [address] [place] [phone] May, [facility] [place] [address] [facility] [id number] [address] [place] [id number] May, Other chronic pain 338.29 ; Hypertension 401.9 and Constipation due to opioid therapy 564.09 [facility] [place] [address] [facility] [id number] [address] [place] [phone] May, [facility] [place] [address] [id number] [address] [place] [phone] May, [facility] [place] [address] [facility] [id number] [address] [place] [phone] Apr, [facility] [place] [address] [facility] [id number] [address] [place] [id number] Apr, Unspecified essential hypert ension 401.9 [facility] [place] [address] [id number] [address] [place] [address], [place] [address] 16 Apr, 2015 [facility] [address] [id number] [address] [place] [phone] Apr, [facility] [place] [address] [id number] [address] [place] [phone] Apr, [facility] [place] [address] [id number] [address] [place] [phone] Apr, [facility] [place] [address] [id number] [address] [place] [address], [place] [address] Apr, [facility] [place] [address] [id number] [address] [place] [phone] Apr, [facility] [place] [address] [id number] [address] [place] [id number] March, Unspecified essential hypert ension 401.9 [facility] [place] [address] [id number] [address] [place] [id number] March, [facility] [place] [address] [id number] [address] [place] [phone] March, [facility] [place] [address] [id number] [address] [place] [id number] Feb, [facility] [place] [address] [id number] [address] [place] [id number] Feb, [facility] [place] [address] [id number] [address] [place] [phone] Jan, [facility] [place] [address] [id number] [address] [place] [phone] Jan, [facility] [place] [address] [id number] [address] [place] [id number] 17 Jan, 2015 [facility] [place] [address] [id number] [address] [place] [id number] 17 Jan, 2015 [facility] [address] [id number] [address] [place] [address], [place] [address] 13 Jan, 2014 [facility] [address] [id number] [address] [place] [address], [place] [id number] 02 Jan, 2014 [facility] [address] [id number] [address] [place] [address], [place] [address] 02 Jan, 2014 [facility] [address] [id number] [address] [place] [address], [place] [id number] 16 Dec, 2014 [facility] [address] [id number] [address] [place] [address], [place] [id number] 16 Dec, 2014 [facility] [address] [id number] [address] [place] [address], [place] [id number] 13 Dec, 2014 [facility] [address] [id number] [address] [place] [address], [place] [id number] 16 Nov, 2014 [facility] [address] [id number] [address] [place] [address], [place] [address] Nov, [facility] [address] [id number] [address] [place] [address], [place] [id number] 16 Oct, 2014 [facility] [address] [id number] [address] [place] [address], [place] [id number] Oct, [facility] [address] [id number] [address] [place] [address], [place] [address] Oct, [facility] [address] [id number] [address] [place] [address], [place] [address] Oct, [facility] [address] [id number] [address] [place] [address], [place] [address] 08 Oct, 2014 [facility] [address] [id number] [address] [place] [address], [place] [id number] 08 Oct, 2014 [facility] [address] [id number] [address] [place] [address], [place] [address] 03 Oct, 2014 [facility] [address] [id number] [address] [place], [place] [address] [address] Oct, [facility] [facility] [address] [id number] [address] [place] [address], [place] [address] Sep, [facility] [address] [id number] [address] [place] [address], [place] [address] Sep, [facility] [address] [id number] [address] [place] [address], [place] [address] Sep, [facility] [address] [id number] [address] [place] [address], [place] [address] Sep, [facility] [address] [id number] [address] [place] [address], [place] [address] Sep, [facility] [address] [id number] [address] [place] [address], [place] [address] Sep, [facility] [address] [id number] [address] [place] [address], [place] [address] Aug, [facility] [address] [id number] [address] [place] [address], [place] [address] Aug, [facility] [address] [id number] [address] [place] [address], [place] [address] Aug, [facility] [address] [id number] [address] [place] [address], [place] [address] Aug, [facility] [address] [id number] [address] [place] [address], [place] [address] Aug, [facility] [address] [id number] [address] [place] [address], [place] [address] Aug, [facility] [address] [id number] [address] [place] [address], [place] [address] Aug, [facility] [address] [id number] [address] [place] [address], [place] [address] Aug, [facility] [address] [id number] [address] [place] [address], [place] [address] Aug, [facility] [address] [id number] [facility] [address] Aug, [facility] [address] [id number] [address] [place] [address], [place] [address] Jul, [facility] [address] [id number] [address] [place] [address], [place] [address] Jul, [facility] [address] [id number] [address] [place] [address], [place] [address] Jul, [facility] [address] [id number] [address] [place] [address], [place] [address] Jul, [facility] [address] [id number] [address] [place] [address], [place] [address] Jul, [facility] [address] [id number] [address] [place] [address], [place] [address] Jul, [facility] [address] [id number] [address] [place] [address], [place] [address] Jun, [facility] [address] [id number] [address] [place] [address], [place] [address] Jun, [facility] [address] [id number] [address] [place] [address], [place] [address] Jun, [facility] [address] [id number] [address] [place] [address], [place] [address] Jun, [facility] [address] [id number] [address] [place] [address], [place] [address] Jun, [facility] [address] [id number] [address] [place] [address], [place] [address] Jun, [facility] [address] [id number] [address] [place] [address], [place] [address] May, [facility] [address] [id number] [address] [place] [address], [place] [address] May, [facility] [address] [id number] [address] [place] [address], [place] [address] May, [facility] [address] [id number] [address] [place] [address], [place] [address] May, [facility] [address] [id number] [address] [place] [address], [place] [address] May, [facility] [address] [id number] [address] [place] [address], [place] [address] Apr, [facility] [address] [id number] [address] [place] [address], [place] [address] Apr, [facility] [address] [id number] [address] [place] [address], [place] [address] Apr, [facility] [address] [id number] [address] [place] [address], [place] [address] Apr, [facility] [address] [id number] [address] [place] [address], [place] [address] March, [facility] [address] [id number] [address] [place] [address], [place] [address] March, [facility] [address] [id number] [address] [place] [address], [place] [address] March, [facility] [address] [id number] [address] [place] [address], [place] [address] March, [facility] [address] [id number] [address] [place] [address], [place] [address] March, [facility] [address] [id number] [address] [place] [address], [place] [address] March, [facility] [address] [id number] [address] [place] [address], [place] [address] Feb, [facility] [address] [id number] [address] [place] [address], [place] [address] Feb, [facility] [address] [id number] [address] [place] [address], [place] [address] Feb, [facility] [address] [id number] [address] [place] [address], [place] [address] Feb, [facility] [address] [id number] [facility] [address] Feb, [facility] [address] [id number] [address] [place] [address], [place] [address] Feb, [facility] [address] [id number] [address] [place] [address], [place] [address] Feb, [facility] [address] [id number] [address] [place] [address], [place] [address] Feb, [facility] [address] [id number] [address] [place] [address], [place] [address] Jan, [facility] [address] [id number] [address] [place] [address], [place] [address] Jan, [facility] [address] [id number] [address] [place] [address], [place] [address] Jan, [facility] [address] [id number] [address] [place] [address], [place] [address] Jan, [facility] [address] [id number] [address] [place] [address], [place] [address] Jan, [facility] [address] [id number] [address] [place] [address], [place] [address] Jan, [facility] [address] [id number] [address] [place] [address], [place] [address] Dec, [facility] [address] [id number] [address] [place] [address], [place] [address] Dec, [facility] [address] [id number] [address] [place] [address], [place] [address] Nov, [facility] [address] [id number] [address] [place] [address], [place] [address] Nov, [facility] [address] [id number] [address] [place] [address], [place] [address] Nov, [facility] [address] [id number] [address] [place] [address], [place] [address] 10 Nov, 2013 [facility] [address] [id number] [address] [place] [address], [place] [address] Nov, [facility] [address] [id number] [address] [place] [address], [place] [address] Nov, [facility] [address] [id number] [address] [place] [address], [place] [address] Nov, [facility] [address] [id number] [address] [place] [address], [place] [address] Nov, [facility] [address] [id number] [address] [place] [address], [place] [address] Nov, [facility] [address] [id number] [address] [place] [address], [place] [address] Nov, [facility] [address] [id number] [address] [place] [address], [place] [address] Nov, [facility] [address] [id number] [address] [place] [address], [place] [address] Nov, [facility] [address] [id number] [address] [place] [address], [place] [address] Nov, [facility] [address] [id number] [address] [place] [address], [place] [address] Nov, [facility] [address] [id number] [address] [place] [address], [place] [address] Nov, [facility] [address] [id number] [address] [place] [address], [place] [address] Oct, [facility] [address] [id number] [address] [place] [address], [place] [address] Oct, [facility] [address] [id number] [address] [place] [address], [place] [address] Oct, [facility] [address] [id number] [address] [place] [address], [place] [address] Oct, [facility] [place] [address] [id number] [address] [place] [id number] Oct, [facility] [place] [address] [id number] [address] [place] [address] Oct, [facility] [place] [address] [id number] [address] [place] [address] Oct, [facility] [place] [address] [id number] [address] [place] [address] Oct, [facility] [place] [address] [id number] [address] [place] [id number] Oct, [facility] [place] [address] [facility] [id number] [address] [place] [address] Aug, [facility] [place] [address] [facility] [id number] [address] [place] [address] Aug, IMMUNIZATIONS No Known Immunizations SOCIAL HISTORY Never Assessed REASON FOR VISIT Lab (walk-in) PLAN OF CARE VITAL SIGNS MEDICATIONS Unknown Medications RESULTS No Results PROCEDURES Procedure Date Ordered Result Body Site LAB NOT BILLED BY [facility] April 17, 2018 CURTIS, ROUTINE* April 17, 2018 INSTRUCTIONS MEDICATIONS ADMINISTERED No Known Medications MEDICAL (GENERAL) HISTORY Type Description Date Medical History hypertension Medical History asthma Medical History Arthritis Medical History Hypoglycemia Medical History Heart Cath 11/05/2013 Medical History herniated disc--Seen by Dr. Troy Michelle pain specialist in [place], [place] Medical History Chronic low back pain [...]
--- OUTSIDE RECORDS SUMMARY | 2020-06-19 02:20 | XMS REPORT ---
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 Name Role Phone ARMANDO ASHVIN Unavailable PROBLEMS Type Condition ICD9-CM Code [id number] Code Onset Dates Condition S tatus SNOMED Code Problem Chronic prescription opiate use Z79.899 Active 022101225 Problem B12 deficiency E53.8 Active 78681 4004 Problem Bilateral low back pain, with sciatica presence unspecifie d M54.5 Active 681515659 Problem CKD (chronic kidney disease) stage 3, GFR 30-59 ml/min N18.3 Active 565219095 Problem Drug induced constipation K59.03 Acti ve [id number] Problem GERD (gastroesophageal reflux disease) K21.9 Active 239096135 Problem Allergic rhinitis J30.9 Active 61 920023 Problem Chronic obstructive pulmonary disease, unspecified COPD ty pe J44.9 Active 06475711 Problem Fibromyalgia M79.7 Active 8912475 7 Problem Chronic pain syndrome G89.4 Active 691887939 Problem Primary insomnia F51.01 Active 193 363203 Problem Other constipation K59.09 Active 1 [id number] Problem Atherosclerosis of [place] co ronary artery of [place] heart without angina pectoris I25.10 Active 8471501832900 Problem Major depressive disorder, recurrent episode, un specified severity F33.9 Active 28285413 Problem Anxiety F41.9 Active 65185913 Problem Hyperlipidemia, unspecified hyperlipidemia E78.5 Active 09195938 Problem Essential hypertension I10 Active 11933093 Problem Chronic prescription benzodiazepine use Z79.899 Active 305884538 ALLERGIES No Information ENCOUNTERS Encounter Location Date Diagnosis [facility] [address] [facility] [id number] [place] [id number] Apr, Anxiety F41.9 [facility] [address] [facility] [id number] [place] [id number] Apr, Chronic prescription opiate use Z79.899 ; Chronic pain syndrome G89.4 ; Essential hypertension I10 ; Allergic rhinitis J30.9 and CKD (chronic kidney disease) stage 3, GFR 30-59 ml/min N18.3 [place] [address] [place] [id number] [address] [place] [phone] Apr, [place] [address] [place] [id number] [address] [place] [phone] March, Anxiety F41.9 and Chronic pa in syndrome G89.4 [place] [address] [place] [id number] [address] [place] [id number] March, CKD (chronic kidney disease) stage 3, GFR 30-59 ml/min N18.3 ; B12 deficiency E53.8 and Hyperlipidemia, unspecified hyperlipidemia E78.5 [place] [address] [place] [id number] [address] [place] [id number] March, Anxiety F41.9 and Chronic pa in syndrome G89.4 [place] [address] [place] [id number] [address] [place] [id number] Feb, Anxiety F41.9 and Chronic pa in syndrome G89.4 [place] [address] [place] [id number] [address] [place] [id number] Jan, B12 deficiency E53.8 [place] [address] [place] [id number] [address] [place] [id number] Jan, [place] [address] [id number] Jan, Anxiety F41.9 ; Chronic pain syndrome G89.4 and Essential hypertension I10 [place] [address] [address] Jan, CKD (chronic kidney disease) stage 3, [...] Subacromial bursitis of right shoulder joint M75.51 [facility] [address] [id number] [address] [place] [id number] 28 Dec, 2017 Essential hypertension I10 [facility] [address] [id number] [address] [place] [id number] 15 Dec, 2017 Chronic pain syndrome G89.4 [place] [address] [facility] [id number] [place] [id number] Dec, Chronic pain syndrome G89.4 [facility] [address] [facility] [id number] [place] [phone] Nov, [facility] [address] [facility] [id number] [place] [id number] Nov, Chronic pain syndrome G89.4 and Anxiety F41.9 [place] [address] [facility] [id number] [place] [address] Oct, Chronic pain syndrome G89.4 ; Other constipation K59.09 and Chronic prescription opiate use Z79.899 [place] [address] [facility] [id number] [place] [id number] Oct, Chronic pain syndrome G89.4 and Anxiety F41.9 [facility] [address] [facility] [id number] [place] [id number] Sep, Essential hypertension I10 [facility] [address] [id number] [address] [place] [id number] 16 Sep, 2017 Chronic pain syndrome G89.4 and Anxiety F41.9 [facility] [address] [facility] [id number] [place] [phone] Aug, Chronic pain syndrome G89.4 and Anxiety F41.9 [place] [address] [facility] [id number] [place] [id number] Jul, Essential hypertension I10 [place] [address] [place] [id number] [address] [place] [id number] Jul, Chronic obstructive pulmonar y disease, unspecified COPD type J44.9 [place] [address] [place] [id number] [address] [place] [phone] Jul, Chronic pain syndrome G89.4 and Anxiety F41.9 [place] [address] [place] [id number] [place] [phone] 13 Jul, 2017 Chronic pain syndrome G89.4 ; Essential hypertension I10 ; Fibromyalgia M79.7 ; CKD (chronic kidney disease) stage 3, GFR 30-59 ml/min N18.3 ; Subacromial bursitis, right M75.51 and Goals of care, co unseling/discussion Z71.89 [place] [address] [address] Jun, Chronic pain syndrome G89.4 and Anxiety F41.9 [place] [address] [place] [id number] [address] [place] [phone] May, Chronic pain syndrome G89.4 and Anxiety F41.9 [place] [address] [place] [id number] [address] [place] [id number] Apr, Chronic pain syndrome G89.4 and Anxiety F41.9 [place] [address] [place] [id number] [address] [place] [id number] 14 Apr, 2017 Drug induced constipation K5 9.03 ; Chronic pain syndrome G89.4 and CKD (chronic kidney disease) stage 3, GFR 30-59 ml/min N18.3 [place] [address] [place] [id number] [address] [place] [id number] 02 Apr, 2017 Chronic pain syndrome G89.4 and Anxiety F41.9 [place] [address] [place] [id number] [address] [place] [id number] March, Chronic pain syndrome G89.4 and Anxiety F41.9 [facility] [address] [id number] [address] [place] [phone] March, Decreased GFR R94.4 [facility] [address] [id number] [address] [place] [id number] Feb, [facility] [address] [facility] [id number] [place] [id number] Feb, Chronic pain syndrome G89.4 and Anxiety F41.9 [facility] [address] [id number] [address] [place] [phone] Jan, Decreased GFR R94.4 [facility] [address] [facility] [id number] [place] [id number] Jan, Decreased GFR R94.4 [facility] [address] [facility] [id number] [place] [id number] Jan, Allergic rhinitis J30.9 ; Es sential hypertension I10 ; Major depressive disorder, recurrent episode, unspecified severity F33.9 and Primary insomnia F51.01 [facility] [address] [facility] [id number] [place] [id number] Jan, Acute right-sided thoracic b ack pain M54.6 ; Subacromial bursitis of right shoulder joint M75.51 ; Chronic pain syndrome G89.4 and Anxiety F41.9 [facility] [address] [facility] [id number] [place] [address] Jan, Decreased GFR R94.4 [facility] [address] [facility] [id number] [place] [phone] Dec, Decreased GFR R94.4 [facility] [address] [facility] [id number] [place] [phone] Dec, Decreased GFR R94.4 [facility] [address] [facility] [id number] [place] [phone] Dec, Decreased GFR R94.4 [facility] [address] [id number] 13 Dec, 2016 Decreased GFR R94.4 [place] [address] [address] 09 Dec, 2016 Anxiety F41.9 and Bilateral low back pain, with sciatica presence unspecified M54.5 [place] [address] [address] Dec, Thrombocytosis D47.3 ; Hyper lipidemia, unspecified hyperlipidemia E78.5 ; Need for hepatitis C screening test Z11.59 and B12 deficiency E53.8 [place] [address] [address] Nov, Need for hepatitis C screeni ng test Z11.59 [place] [address] [address] Nov, Anxiety F41.9 and Bilateral low back pain, with sciatica presence unspecified M54.5 [place] [address] [address] Oct, Bilateral low back pain, wit h sciatica presence unspecified M54.5 ; Chronic prescription opiate use Z79.899 ; Anxiety F41.9 ; Essential hypertension I10 ; Hyperlipidemia, unspecified hyperlipidemia E78.5 ; Health care maintenance Z00.00 and Thrombocytosis D47.3 [place] [address] [address] Sep, [place] [address] [address] Sep, [place] [address] [address] Aug, [place] [address] [address] Jul, B12 deficiency E53.8 [place] [address] [address] Jul, [facility] [address] [facility] [id number] [place] [id number] Jul, Essential hypertension I10 ; Chronic pain syndrome G89.4 ; Anxiety F41.9 ; Screening for breast cancer Z12.39 ; Atherosclerosis of [place] coronary artery of [place] heart without angina pectoris I25.10 ; Major depressive disorder, recurrent episode, unspecified severity F33.9 ; Primary insomnia F51.01 and Allergic rhinitis J30.9 [facility] [address] [facility] [id number] [place] [id number] Jun, [facility] [address] [facility] [id number] [place] [id number] Jun, Leg wound, right, initial en counter S81.801A and Encounter for immunization Z23 [place] [address] [facility] [id number] [place] [address] Jun, Open wound of right ear, uns pecified open wound type, initial encounter S01.301A [facility] [address] [facility] [id number] [place] [address] May, B12 deficiency E53.8 [place] [address] [place] [id number] [place] [id number] May, [place] [address] [place] [id number] [place] [id number] May, [place] [address] [place] [id number] [place] [address] May, Chronic pain syndrome G89.4 ; Chronic prescription opiate use Z79.899 ; Allergic rhinitis J30.9 ; Essential hypertension I10 and Non-healing skin lesion L98.9 [place] [address] [facility] [id number] [place] [id number] Apr, [place] [address] [place] [id number] [place] [id number] March, [place] [address] [place] [id number] [place] [phone] Feb, [facility] [address] [facility] [id number] [place] [phone] Feb, [facility] [address] [address] Feb, Chronic pain syndrome G89.4 ; Anxiety F41.9 ; B12 deficiency E53.8 ; Allergic rhinitis J30.9 ; Fibromyalgia M79.7 ; Actinic keratosis L57.0 ; Skin rash R21 ; Open wound of right ear, unspecified open wound type, initial encounter S01.301A ; Subacromial bursitis, right M75.51 ; GERD (gastroesophageal reflux disease) K21.9 and Chronic obstructive pulmonary disease, unspecified COPD type J44.9 [facility] [address] [place] [id number] [place] [phone] Jan, [facility] [address] [address] Jan, Essential hypertension I10 [facility] [address] [address] Jan, [facility] [address] [address] Jan, [facility] [address] [place] [id number] [address] [place] [id number] Jan, [facility] [address] [place] [id number] [place] [id number] Dec, [facility] [address] [place] [id number] [address] [place] [phone] Dec, Essential hypertension I10 [facility] [address] [facility] [id number] [place] [phone] Dec, [facility] [address] [place] [id number] [address] [place] [id number] Dec, B12 deficiency E53.8 and Ess ential hypertension I10 [facility] [address] [facility] [id number] [place] [phone] Dec, [facility] [address] [facility] [id number] [place] [address] Nov, Right shoulder pain M25.511 [facility] [address] [place] [id number] [address] [place] [address] Nov, Right shoulder pain M25.511 [facility] [address] [place] [id number] [place] [id number] Nov, Essential hypertension I10 a nd B12 deficiency E53.8 [facility] [address] [id number] Nov, Major depressive disorder, r ecurrent episode, unspecified severity F33.9 ; Anxiety F41.9 ; Chronic pain syndrome G89.4 ; Essential hypertension I10 ; Hyperlipidemia, unspecified hyperlipidemia E78.5 ; Chronic prescription opiate use Z79.899 ; Allergic rhinitis J30.9 ; B12 deficiency E53.8 and Right shoulder pain M25.511 [facility] [address] [place] [id number] [address] [place] [id number] Oct, [facility] [address] [place] [id number] [address] [place] [id number] Oct, [facility] [address] [place] [id number] [address] [place] [phone] Sep, [facility] [address] [place] [id number] [address] [place] [id number] Sep, [facility] [address] [place] [id number] [address] [place] [id number] Aug, [facility] [address] [place] [id number] [place] [id number] Aug, [facility] [address] [place] [id number] [place] [id number] Aug, [facility] [address] [place] [id number] [place] [id number] Aug, Other constipation K59.09 ; Hyperlipidemia, unspecified hyperlipidemia E78.5 ; Essential hypertension I10 ; Primary insomnia F51.01 ; Anxiety F41.9 ; Chronic pain syndrome G89.4 ; Right shoulder pain M25.511 and Acute cystitis without hematuria N30.00 [facility] [address] [id number] [address] [place] [id number] 16 Jul, 2015 [facility] [address] [id number] [address] [place] [phone] Jul, [facility] [address] [id number] [address] [place] [phone] Jun, [facility] [address] [facility] [id number] [place] [phone] Jun, [facility] [address] [place] [id number] [place] [phone] Jun, [facility] [address] [facility] [id number] [place] [id number] May, [facility] [address] [facility] [id number] [place] [address] May, Other chronic pain 338.29 ; Hypertension 401.9 and Constipation due to opioid therapy 564.09 [facility] [address] [facility] [id number] [place] [phone] May, [facility] [address] [facility] [id number] [place] [id number] May, [facility] [address] [id number] [address] [place] [phone] Apr, [facility] [address] [facility] [id number] [place] [phone] Apr, Unspecified essential hypert ension 401.9 [facility] [address] [facility] [id number] [place] [phone] Apr, [facility] [address] [id number] [address] [place] [address], [place] [address] 16 Apr, 2015 [facility] [address] [id number] [address] [place] [address], [place] [address] Apr, [facility] [address] [id number] [address] [place] [address], [place] [address] 16 Apr, 2015 [facility] [address] [id number] [address] [place] [address], [place] [address] 15 Apr, 2015 [facility] [address] [id number] [address] [place] [address], [place] [address] Apr, [facility] [address] [id number] [address] [place] [address], [place] [address] March, Unspecified essential hypert ension 401.9 [facility] [address] [id number] [address] [place] [address], [place] [address] March, [facility] [address] [id number] [address] [place] [address], [place] [address] March, [facility] [address] [id number] [address] [place] [address], [place] [address] 14 Feb, 2015 [facility] [address] [id number] [address] [place] [address], [place] [address] Feb, [facility] [address] [id number] [address] [place] [address], [place] [address] 23 Jan, 2015 [facility] [address] [id number] [address] [place] [id number] 23 Jan, 2015 [facility] [address] [id number] [address] [place] [address], [place] [address] 17 Jan, 2015 [facility] [address] [id number] [address] [place] [address], [place] [address] 17 Jan, 2015 [facility] [address] [id number] [address] [place] [address], [place] [address] 13 Jan, 2015 [facility] [address] [id number] [address] [place] [address], [place] [address] Jan, [facility] [address] [id number] [address] [place] [address], [place] [address] Jan, [facility] [address] [id number] [address] [place] [address], [place] [address] 16 Dec, 2014 [facility] [address] [id number] [address] [place] [address], [place] [address] 16 Dec, 2014 [facility] [address] [id number] [address] [place] [address], [place] [address] Dec, 2014 [facility] [address] [id number] [address] [place] [address], [place] [address] Nov, [facility] [address] [id number] [address] [place] [address], [place] [address] Nov, [facility] [address] [id number] [address] [place] [address], [place] [address] Oct, [facility] [address] [id number] [address] [place] [address], [place] [address] Oct, [facility] [address] [id number] [address] [place] [address], [place] [address] Oct, [facility] [address] [id number] [address] [place] [address], [place] [address] Oct, [facility] [address] [id number] [address] [place] [address], [place] [address] Oct, [facility] [address] [id number] [address] [place] [address], [place] [address] Oct, [facility] [address] [id number] [address] [place] [address], [place] [address] Oct, [facility] [address] [id number] [address] [place] [address], [place] [address] Oct, [facility] [address] [id number] [address] [place] [address], [place] [address] Sep, [facility] [address] [id number] [address] [place] [address], [place] [address] Sep, [facility] [address] [id number] [address] [place] [address], [place] [address] Sep, [facility] [address] [id number] [address] [place] [address], [place] [address] Sep, [facility] [address] [id number] [address] [place] [address], [place] [address] Sep, [facility] [address] [id number] [address] [place] [address], [place] [address] Sep, [facility] [address] [id number] [address] [place] [address], [place] [address] Aug, [facility] [address] [id number] [address] [place] [address], [place] [address] Aug, [facility] [address] [id number] [address] [place] [address], [place] [address] Aug, [facility] [address] [id number] [address] [place] [address], [place] [address] Aug, [facility] [address] [id number] [address] [place] [address], [place] [address] Aug, [facility] [address] [id number] [address] [place] [address], [place] [address] Aug, [facility] [address] [id number] [address] [place] [address], [place] [address] Aug, [facility] [address] [id number] [address] [place] [address], [place] [address] Aug, [facility] [address] [id number] [address] [place] [address], [place] [address] Aug, [facility] [address] [id number] [address] [place] [address], [place] [address] Aug, [facility] [address] [id number] [address] [place] [address], [place] [address] Jul, [facility] [address] [id number] [facility] [place] [address] Jul, [facility] [address] [id number] [facility] [place] [address] Jul, [facility] [address] [id number] [facility] [place] [address] Jul, [facility] [address] [id number] [address] [place] [address], [place] [address] Jul, [facility] [address] [id number] [facility] [place] [address] Jul, [facility] [address] [id number] [address] [place] [address], [place] [address] Jun, [facility] [address] [id number] [address] [place] [address], [place] [address] Jun, [facility] [address] [id number] [address] [place] [address], [place] [address] Jun, [facility] [address] [id number] [address] [place] [address], [place] [address] Jun, [facility] [address] [id number] [address] [place] [address], [place] [address] Jun, [facility] [address] [id number] [address] [place] [address], [place] [address] Jun, [facility] [address] [id number] [address] [place] [address], [place] [address] May, [facility] [address] [id number] [address] [place] [address], [place] [address] May, [facility] [address] [id number] [address] [place] [address], [place] [address] May, [facility] [address] [id number] [address] [place] [address], [place] [address] May, [facility] [address] [id number] [address] [place] [address], [place] [address] May, [facility] [address] [id number] [address] [place] [address], [place] [address] Apr, [facility] [address] [id number] [address] [place] [address], [place] [address] Apr, [facility] [address] [id number] [address] [place] [address], [place] [address] Apr, [facility] [address] [id number] [address] [place] [address], [place] [address] Apr, [facility] [address] [id number] [address] [place] [address], [place] [address] March, [facility] [address] [id number] [address] [place] [address], [place] [address] March, [facility] [address] [id number] [address] [place] [address], [place] [address] March, [facility] [address] [id number] [address] [place] [address], [place] [address] March, [facility] [address] [id number] [address] [place] [address], [place] [address] March, [facility] [address] [id number] [address] [place] [address], [place] [address] March, [facility] [address] [id number] [address] [place] [address], [place] [address] Feb, [facility] [address] [id number] [address] [place] [address], [place] [address] Feb, [facility] [address] [id number] [address] [place] [address], [place] [address] Feb, [facility] [address] [id number] [address] [place] [address], [place] [address] Feb, [facility] [address] [id number] [address] [place] [address], [place] [address] Feb, [facility] [address] [id number] [facility] [place] [address] Feb, [facility] [address] [id number] [address] [place] [address], [place] [address] Feb, [facility] [address] [id number] [facility] [place] [address] Feb, [facility] [address] [id number] [address] [place] [address], [place] [address] Jan, [facility] [address] [id number] [address] [place] [address], [place] [address] Jan, [facility] [address] [id number] [address] [place] [address], [place] [address] Jan, [facility] [address] [id number] [address] [place] [address], [place] [address] Jan, [facility] [address] [id number] [address] [place] [address], [place] [address] Jan, [facility] [address] [id number] [address] [place] [address], [place] [address] Jan, [facility] [address] [id number] [address] [place] [address], [place] [address] Dec, [facility] [address] [id number] [address] [place] [address], [place] [address] Dec, [facility] [address] [id number] [address] [place] [address], [place] [address] Nov, [facility] [address] [id number] [address] [place] [address], [place] [address] Nov, [facility] [address] [id number] [address] [place] [address], [place] [address] Nov, [facility] [address] [id number] [address] [place] [address], [place] [address] Nov, [facility] [address] [id number] [address] [place] [address], [place] [address] Nov, [facility] [address] [id number] [address] [place] [address], [place] [address] Nov, [facility] [address] [id number] [address] [place] [address], [place] [address] Nov, [facility] [address] [id number] [address] [place] [address], [place] [address] Nov, [facility] [address] [id number] [address] [place] [address], [place] [address] Nov, [facility] [address] [id number] [address] [place] [address], [place] [address] Nov, [facility] [address] [id number] [address] [place] [address], [place] [address] Nov, [facility] [address] [id number] [address] [place] [address], [place] [address] Nov, [facility] [address] [id number] [address] [place] [address], [place] [address] Nov, [facility] [address] [id number] [address] [place] [address], [place] [address] Nov, [facility] [address] [id number] [address] [place] [address], [place] [address] Nov, [facility] [address] [id number] [address] [place] [address], [place] [address] Oct, [facility] [address] [id number] [address] [place] [address], [place] [address] Oct, [facility] [address] [id number] [address] [place] [address], [place] [address] Oct, [facility] [address] [id number] [address] [place] [address], [place] [address] Oct, [facility] [address] [id number] [address] [place] [address], [place] [address] Oct, [facility] [address] [id number] [address] [place] [address] Oct, [facility] [address] [facility] [id number] [place] [address] Oct, [facility] [address] [facility] [id number] [place] [address] Oct, [facility] [address] [facility] [id number] [place] [address] Oct, [facility] [address] [facility] [id number] [place] [address] Aug, [facility] [address] [facility] [id number] [place] [address] Aug, IMMUNIZATIONS No Known Immunizations SOCIAL HISTORY Never Assessed REASON FOR VISIT Ortho Referral PLAN OF CARE VITAL SIGNS MEDICATIONS Unknown Medications RESULTS No Results PROCEDURES No Known procedures INSTRUCTIONS MEDICATIONS ADMINISTERED No Known Medications MEDICAL (GENERAL) HISTORY Type Description Date Medical History hypertension Medical History asthma Medical History Arthritis Medical History Hypoglycemia Medical History Heart Cath 11/05/2013 Medical History herniated disc--Seen by Dr. Troy Michelle pain specialist in [place], [place] Medical History Chronic low back pain Medical History depression Medical History anxiety Medical History Panic attacks Medical History Vitamin B 12 deficiency r/t gastric bypa ss Medical History Low back injections 11/2012, 06/2013 Medical History Thrombocytosis Surgical History tonsillectomy Surgical History gastric bypass--2003-in [facility] a. Unsure of Dr's name. No longer [...]
--- OUTSIDE RECORDS SUMMARY | 2020-06-19 02:20 | XMS REPORT ---
Author Author Mahsa ROBERTS Organization [facility] Address [address] [place] [address] Care Team Providers Care Ham Passer Name Role Phone ARMANDO ASHVIN Unavailable PROBLEMS Type Condition ICD9-CM Code KIF60-RZ Code Onset Dates Condition S tatus SNOMED Code Problem Chronic prescription opiate use Z79.899 Active 600043148 Problem B12 deficiency E53.8 Active 38401 4004 Problem Bilateral low back pain, with sciatica presence unspecifie d M54.5 Active 031233954 Problem CKD (chronic kidney disease) stage 3, GFR 30-59 ml/min N18.3 Active 953625773 Problem Drug induced constipation K59.03 Acti ve [id number] Problem GERD (gastroesophageal reflux disease) K21.9 Active 890551277 Problem Allergic rhinitis J30.9 Active 61 494589 Problem Chronic obstructive pulmonary disease, unspecified COPD ty pe J44.9 Active 05848167 Problem Fibromyalgia M79.7 Active 4706656 7 Problem Chronic pain syndrome G89.4 Active 194092264 Problem Primary insomnia F51.01 Active 193 530880 Problem Other constipation K59.09 Active 1 [id number] Problem Atherosclerosis of [place] co ronary artery of [place] heart without angina pectoris I25.10 Active 1860578612473 Problem Major depressive disorder, recurrent episode, un specified severity F33.9 Active 78328227 Problem Anxiety F41.9 Active 20965832 Problem Hyperlipidemia, unspecified hyperlipidemia E78.5 Active 08164821 Problem Essential hypertension I10 Active 07988789 Problem Chronic prescription benzodiazepine use Z79.899 Active 459024888 ALLERGIES No Information ENCOUNTERS Encounter Location Date Diagnosis [facility] [address] [facility] [id number] [address] [place] [address] Apr, Anxiety F41.9 [facility] [address] [facility] [id number] [address] [place] [address] Apr, Chronic prescription opiate use Z79.899 ; Chronic pain syndrome G89.4 ; Essential hypertension I10 ; Allergic rhinitis J30.9 and CKD (chronic kidney disease) stage 3, GFR 30-59 ml/min N18.3 [place] [address] [place] [id number] [address] [place] [address] Apr, [place] [address] [place] [id number] [address] [place] [address] March, Anxiety F41.9 and Chronic pa in syndrome G89.4 [place] [address] [place] [id number] [address] [place] [phone] March, CKD (chronic kidney disease) stage 3, GFR 30-59 ml/min N18.3 ; B12 deficiency E53.8 and Hyperlipidemia, unspecified hyperlipidemia E78.5 [place] [address] [place] [id number] [address] [place] [address] March, Anxiety F41.9 and Chronic pa in syndrome G89.4 [place] [address] [place] [id number] [address] [place] [address] Feb, Anxiety F41.9 and Chronic pa in syndrome G89.4 [place] [address] [place] [id number] [address] [place] [address] Jan, B12 deficiency E53.8 [place] [address] [place] [id number] [address] [place] [address] Jan, [place] [address] [address] Jan, Anxiety F41.9 ; Chronic pain syndrome G89.4 and Essential hypertension I10 [place] [address] [address] Jan, CKD (chronic kidney disease) stage 3, [...] Subacromial bursitis of right shoulder joint M75.51 [facility] [address] [id number] [address] [place] [address] 28 Dec, 2017 Essential hypertension I10 [facility] [address] [id number] [address] [place] [id number] 15 Dec, 2017 Chronic pain syndrome G89.4 [place] [address] [facility] [id number] [address] [place] [phone] Dec, Chronic pain syndrome G89.4 [place] [address] [facility] [id number] [address] [place] [address] Nov, [place] [address] [facility] [id number] [address] [place] [address] Nov, Chronic pain syndrome G89.4 and Anxiety F41.9 [place] [address] [facility] [id number] [address] [place] [address] Oct, Chronic pain syndrome G89.4 ; Other constipation K59.09 and Chronic prescription opiate use Z79.899 [place] [address] [facility] [id number] [address] [place] [address] Oct, Chronic pain syndrome G89.4 and Anxiety F41.9 [facility] [address] [facility] [id number] [address] [place] [address] Sep, Essential hypertension I10 [facility] [address] [id number] [address] [place] [address] 16 Sep, 2017 Chronic pain syndrome G89.4 and Anxiety F41.9 [facility] [address] [facility] [id number] [address] [place] [address] Aug, Chronic pain syndrome G89.4 and Anxiety F41.9 [place] [address] [facility] [id number] [address] [place] [address] Jul, Essential hypertension I10 [place] [address] [place] [id number] [address] [place] [address] Jul, Chronic obstructive pulmonar y disease, unspecified COPD type J44.9 [place] [address] [place] [id number] [address] [place] [address] Jul, Chronic pain syndrome G89.4 and Anxiety F41.9 [place] [address] [place] [id number] [place] [address] 13 Jul, 2017 Chronic pain syndrome G89.4 ; Essential hypertension I10 ; Fibromyalgia M79.7 ; CKD (chronic kidney disease) stage 3, GFR 30-59 ml/min N18.3 ; Subacromial bursitis, right M75.51 and Goals of care, co unseling/discussion Z71.89 [place] [address] [address] Jun, Chronic pain syndrome G89.4 and Anxiety F41.9 [place] [address] [place] [id number] [address] [place] [address] May, Chronic pain syndrome G89.4 and Anxiety F41.9 [place] [address] [place] [id number] [address] [place] [address] Apr, Chronic pain syndrome G89.4 and Anxiety F41.9 [place] [address] [place] [id number] [address] [place] [phone] 14 Apr, 2017 Drug induced constipation K5 9.03 ; Chronic pain syndrome G89.4 and CKD (chronic kidney disease) stage 3, GFR 30-59 ml/min N18.3 [place] [address] [place] [id number] [address] [place] [address] 02 Apr, 2017 Chronic pain syndrome G89.4 and Anxiety F41.9 [place] [address] [place] [id number] [address] [place] [address] March, Chronic pain syndrome G89.4 and Anxiety F41.9 [facility] [address] [id number] [address] [place] [address] March, Decreased GFR R94.4 [facility] [address] [id number] [address] [place] [address] Feb, [facility] [address] [facility] [id number] [address] [place] [phone] Feb, Chronic pain syndrome G89.4 and Anxiety F41.9 [facility] [address] [id number] [address] [place] [address] Jan, Decreased GFR R94.4 [facility] [address] [facility] [id number] [address] [place] [phone] Jan, Decreased GFR R94.4 [facility] [address] [facility] [id number] [address] [place] [phone] Jan, Allergic rhinitis J30.9 ; Es sential hypertension I10 ; Major depressive disorder, recurrent episode, unspecified severity F33.9 and Primary insomnia F51.01 [facility] [address] [facility] [id number] [address] [place] [address] Jan, Acute right-sided thoracic b ack pain M54.6 ; Subacromial bursitis of right shoulder joint M75.51 ; Chronic pain syndrome G89.4 and Anxiety F41.9 [facility] [address] [facility] [id number] [address] [place] [address] Jan, Decreased GFR R94.4 [facility] [address] [facility] [id number] [address] [place] [address] Dec, Decreased GFR R94.4 [facility] [address] [facility] [id number] [address] [place] [address] Dec, Decreased GFR R94.4 [facility] [address] [facility] [id number] [address] [place] [address] Dec, Decreased GFR R94.4 [facility] [address] [address] 13 Dec, 2016 Decreased GFR R94.4 [place] [address] [address] 09 Dec, 2016 Anxiety F41.9 and Bilateral low back pain, with sciatica presence unspecified M54.5 [place] [address] [address] 03 Dec, 2016 Need for hepatitis C screeni ng test Z11.59 ; B12 deficiency E53.8 ; Hyperlipidemia, unspecified hyperlipidemia E78.5 and Thrombocytosis D47.3 [place] [address] [address] Nov, Need for hepatitis C screeni ng test Z11.59 [place] [address] [address] Nov, Anxiety F41.9 and Bilateral low back pain, with sciatica presence unspecified M54.5 [place] [address] [address] Oct, Bilateral low back pain, wit h sciatica presence unspecified M54.5 ; Chronic prescription opiate use Z79.899 ; Anxiety F41.9 ; Essential hypertension I10 ; Hyperlipidemia, unspecified hyperlipidemia E78.5 ; Health care maintenance Z00.00 and Thrombocytosis D47.3 [place] [address] [address] Sep, [place] [address] [address] Sep, [place] [address] [address] Aug, [place] [address] [address] Jul, B12 deficiency E53.8 [place] [address] [address] Jul, [facility] [address] [facility] [id number] [address] [place] [address] Jul, Essential hypertension I10 ; Chronic pain syndrome G89.4 ; Anxiety F41.9 ; Screening for breast cancer Z12.39 ; Atherosclerosis of [place] coronary artery of [place] heart without angina pectoris I25.10 ; Major depressive disorder, recurrent episode, unspecified severity F33.9 ; Primary insomnia F51.01 and Allergic rhinitis J30.9 [facility] [address] [facility] [id number] [address] [place] [address] Jun, [facility] [address] [facility] [id number] [address] [place] [address] Jun, Leg wound, right, initial en counter S81.801A and Encounter for immunization Z23 [place] [address] [facility] [id number] [address] [place] [address] Jun, Open wound of right ear, uns pecified open wound type, initial encounter S01.301A [facility] [address] [facility] [id number] [address] [place] [address] May, B12 deficiency E53.8 [place] [address] [place] [id number] [address] [place] [address] May, [place] [address] [place] [id number] [address] [place] [address] May, [place] [address] [place] [id number] [address] [place] [address] May, Chronic pain syndrome G89.4 ; Chronic prescription opiate use Z79.899 ; Allergic rhinitis J30.9 ; Essential hypertension I10 and Non-healing skin lesion L98.9 [place] [address] [facility] [id number] [address] [place] [address] Apr, [place] [address] [place] [id number] [address] [place] [address] March, [place] [address] [place] [id number] [address] [place] [address] Feb, [facility] [address] [facility] [id number] [address] [place] [address] Feb, [facility] [address] [address] Feb, Chronic pain syndrome G89.4 ; Anxiety F41.9 ; B12 deficiency E53.8 ; Allergic rhinitis J30.9 ; Fibromyalgia M79.7 ; Actinic keratosis L57.0 ; Skin rash R21 ; Open wound of right ear, unspecified open wound type, initial encounter S01.301A ; Subacromial bursitis, right M75.51 ; GERD (gastroesophageal reflux disease) K21.9 and Chronic obstructive pulmonary disease, unspecified COPD type J44.9 [facility] [address] [place] [id number] [address] [place] [phone] Jan, [facility] [address] [address] Jan, Essential hypertension I10 [facility] [address] [address] Jan, [facility] [address] [address] Jan, [facility] [address] [place] [id number] [address] [place] [address] Jan, [facility] [address] [place] [id number] [address] [place] [address] Dec, [facility] [address] [place] [id number] [address] [place] [address] Dec, Essential hypertension I10 [facility] [address] [facility] [id number] [address] [place] [address] Dec, [facility] [address] [place] [id number] [address] [place] [address] Dec, B12 deficiency E53.8 and Ess ential hypertension I10 [facility] [address] [facility] [id number] [address] [place] [address] Dec, [facility] [address] [facility] [id number] [address] [place] [address] Nov, Right shoulder pain M25.511 [facility] [address] [place] [id number] [address] [place] [address] Nov, Right shoulder pain M25.511 [facility] [address] [place] [id number] [address] [place] [address] Nov, Essential hypertension I10 a nd B12 deficiency E53.8 [facility] [address] [address] Nov, Major depressive disorder, r ecurrent episode, unspecified severity F33.9 ; Anxiety F41.9 ; Chronic pain syndrome G89.4 ; Essential hypertension I10 ; Hyperlipidemia, unspecified hyperlipidemia E78.5 ; Chronic prescription opiate use Z79.899 ; Allergic rhinitis J30.9 ; B12 deficiency E53.8 and Right shoulder pain M25.511 [facility] [address] [place] [id number] [address] [place] [address] Oct, [facility] [address] [place] [id number] [address] [place] [phone] Oct, [facility] [address] [place] [id number] [address] [place] [id number] Sep, [facility] [address] [place] [id number] [address] [place] [address] Sep, [facility] [address] [place] [id number] [address] [place] [address] Aug, [facility] [address] [place] [id number] [address] [place] [id number] Aug, [facility] [address] [place] [id number] [address] [place] [address] Aug, [facility] [address] [place] [id number] [address] [place] [address] Aug, Other constipation K59.09 ; Hyperlipidemia, unspecified hyperlipidemia E78.5 ; Essential hypertension I10 ; Primary insomnia F51.01 ; Anxiety F41.9 ; Chronic pain syndrome G89.4 ; Right shoulder pain M25.511 and Acute cystitis without hematuria N30.00 [facility] [address] [id number] [address] [place] [id number] 16 Jul, 2015 [facility] [address] [id number] [address] [place] [phone] Jul, [facility] [address] [id number] [address] [place] [id number] Jun, [facility] [address] [facility] [id number] [address] [place] [address] Jun, [facility] [address] [place] [id number] [address] [place] [address] Jun, [facility] [address] [facility] [id number] [address] [place] [phone] May, [facility] [address] [facility] [id number] [address] [place] [address] May, Other chronic pain 338.29 ; Hypertension 401.9 and Constipation due to opioid therapy 564.09 [facility] [address] [facility] [id number] [address] [place] [address] May, [facility] [address] [facility] [id number] [address] [place] [address] May, [facility] [address] [id number] [address] [place] [address] Apr, [facility] [address] [facility] [id number] [address] [place] [address] Apr, Unspecified essential hypert ension 401.9 [facility] [address] [facility] [id number] [address] [place] [address] Apr, [facility] [address] [id number] [address] [place] [address], [place] [address] 16 Apr, 2015 [facility] [address] [id number] [address] [place] [address], [place] [address] Apr, [facility] [address] [id number] [address] [place] [address], [place] [address] 16 Apr, 2015 [facility] [address] [id number] [address] [place] [address], [place] [address] 15 Apr, 2015 [facility] [address] [id number] [address] [place] [address], [place] [address] Apr, [facility] [address] [id number] [address] [place] [address], [place] [address] March, Unspecified essential hypert ension 401.9 [facility] [address] [id number] [address] [place] [address], [place] [address] March, [facility] [address] [id number] [address] [place] [address], [place] [address] March, [facility] [address] [id number] [address] [place] [address], [place] [address] 14 Feb, 2015 [facility] [address] [id number] [address] [place] [address], [place] [address] Feb, [facility] [address] [id number] [address] [place] [address], [place] [address] 23 Jan, 2015 [facility] [address] [id number] [address] [place] [phone] 23 Jan, 2015 [facility] [address] [id number] [address] [place] [address], [place] [address] 17 Jan, 2015 [facility] [address] [id number] [address] [place] [address], [place] [address] 17 Jan, 2015 [facility] [address] [id number] [address] [place] [address], [place] [address] 13 Jan, 2015 [facility] [address] [id number] [address] [place] [address], [place] [address] Jan, [facility] [address] [id number] [address] [place] [address], [place] [address] Jan, [facility] [address] [id number] [address] [place] [address], [place] [address] 16 Dec, 2014 [facility] [address] [id number] [address] [place] [address], [place] [address] 16 Dec, 2014 [facility] [address] [id number] [address] [place] [address], [place] [address] Dec, 2014 [facility] [address] [id number] [address] [place] [address], [place] [address] Nov, [facility] [address] [id number] [address] [place] [address], [place] [address] Nov, [facility] [address] [id number] [address] [place] [address], [place] [address] Oct, [facility] [address] [id number] [address] [place] [address], [place] [address] Oct, [facility] [address] [id number] [address] [place] [address], [place] [address] Oct, [facility] [address] [id number] [address] [place] [address], [place] [address] Oct, [facility] [address] [id number] [address] [place] [address], [place] [address] Oct, [facility] [address] [id number] [address] [place] [address], [place] [address] Oct, [facility] [address] [id number] [address] [place] [address], [place] [address] Oct, [facility] [address] [id number] [address] [place] [address], [place] [address] Oct, [facility] [address] [id number] [address] [place] [address], [place] [address] Sep, [facility] [address] [id number] [address] [place] [address], [place] [address] Sep, [facility] [address] [id number] [address] [place] [address], [place] [address] Sep, [facility] [address] [id number] [address] [place] [address], [place] [address] Sep, [facility] [address] [id number] [address] [place] [address], [place] [address] Sep, [facility] [address] [id number] [address] [place] [address], [place] [address] Sep, [facility] [address] [id number] [address] [place] [address], [place] [address] Aug, [facility] [address] [id number] [address] [place] [address], [place] [address] Aug, [facility] [address] [id number] [address] [place] [address], [place] [address] Aug, [facility] [address] [id number] [address] [place] [address], [place] [address] Aug, [facility] [address] [id number] [address] [place] [address], [place] [address] Aug, [facility] [address] [id number] [address] [place] [address], [place] [id number] Aug, [facility] [address] [id number] [address] [place] [address], [place] [id number] Aug, [facility] [address] [id number] [address] [place] [address], [place] [address] Aug, [facility] [address] [id number] [address] [place] [address], [place] [id number] Aug, [facility] [address] [id number] [address] [place] [address], [place] [id number] Aug, [facility] [address] [id number] [address] [place] [address], [place] [id number] Jul, [facility] [address] [id number] [address] [place] [id number] Jul, [facility] [address] [id number] [facility] [place] [id number] Jul, [facility] [address] [id number] [facility] [place] [id number] Jul, [facility] [address] [id number] [address] [place] [address], [place] [id number] Jul, [facility] [address] [id number] [facility] [place] [address] Jul, [facility] [address] [id number] [address] [place] [address], [place] [id number] Jun, [facility] [address] [id number] [address] [place] [address], [place] [id number] Jun, [facility] [address] [id number] [address] [place] [address], [place] [id number] Jun, [facility] [address] [id number] [address] [place] [address], [place] [id number] Jun, [facility] [address] [id number] [address] [place] [address], [place] [id number] Jun, [facility] [address] [id number] [address] [place] [address], [place] [id number] Jun, [facility] [address] [id number] [address] [place] [address], [place] [address] May, [facility] [address] [id number] [address] [place] [address], [place] [id number] May, [facility] [address] [id number] [address] [place] [address], [place] [address] May, [facility] [address] [id number] [address] [place] [address], [place] [address] May, [facility] [address] [id number] [address] [place] [address], [place] [id number] May, [facility] [address] [id number] [address] [place] [address], [place] [id number] Apr, [facility] [address] [id number] [address] [place] [address], [place] [address] Apr, [facility] [address] [id number] [address] [place] [address], [place] [address] Apr, [facility] [address] [id number] [address] [place] [address], [place] [address] Apr, [facility] [address] [id number] [address] [place] [address], [place] [id number] March, [facility] [address] [id number] [address] [place] [address], [place] [address] March, [facility] [address] [id number] [address] [place] [address], [place] [id number] March, [facility] [address] [id number] [address] [place] [address], [place] [address] March, [facility] [address] [id number] [address] [place] [address], [place] [address] March, [facility] [address] [id number] [address] [place] [address], [place] [address] March, [facility] [address] [id number] [address] [place] [address], [place] [address] Feb, [facility] [address] [id number] [address] [place] [address], [place] [address] Feb, [facility] [address] [id number] [address] [place] [address], [place] [address] Feb, [facility] [address] [id number] [address] [place] [address], [place] [address] Feb, [facility] [address] [id number] [address] [place] [address], [place] [address] Feb, [facility] [address] [id number] [facility] [place] [address] Feb, [facility] [address] [id number] [address] [place] [address], [place] [address] Feb, [facility] [address] [id number] [facility] [place] [address] Feb, [facility] [address] [id number] [address] [place] [address], [place] [address] Jan, [facility] [address] [id number] [address] [place] [address], [place] [address] Jan, [facility] [address] [id number] [address] [place] [address], [place] [address] Jan, [facility] [address] [id number] [address] [place] [address], [place] [address] Jan, [facility] [address] [id number] [address] [place] [address], [place] [address] Jan, [facility] [address] [id number] [address] [place] [address], [place] [address] Jan, [facility] [address] [id number] [address] [place] [address], [place] [address] Dec, [facility] [address] [id number] [address] [place] [address], [place] [address] Dec, [facility] [address] [id number] [address] [place] [address], [place] [address] Nov, [facility] [address] [id number] [address] [place] [address], [place] [address] Nov, [facility] [address] [id number] [address] [place] [address], [place] [address] Nov, [facility] [address] [id number] [address] [place] [address], [place] [address] Nov, [facility] [address] [id number] [address] [place] [address], [place] [address] Nov, [facility] [address] [id number] [address] [place] [address], [place] [address] Nov, [facility] [address] [id number] [address] [place] [address], [place] [address] Nov, [facility] [address] [id number] [address] [place] [address], [place] [address] Nov, [facility] [address] [id number] [address] [place] [address], [place] [address] Nov, [facility] [address] [id number] [address] [place] [address], [place] [address] Nov, [facility] [address] [id number] [address] [place] [address], [place] [address] Nov, [facility] [address] [id number] [address] [place] [address], [place] [address] Nov, [facility] [address] [id number] [address] [place] [address], [place] [address] Nov, [facility] [address] [id number] [address] [place] [address], [place] [address] Nov, [facility] [address] [id number] [address] [place] [address], [place] [address] Nov, [facility] [address] [id number] [address] [place] [address], [place] [address] Oct, [facility] [address] [id number] [address] [place] [address], [place] [address] Oct, [facility] [address] [id number] [address] [place] [address], [place] [address] Oct, [facility] [address] [id number] [address] [place] [address], [place] [address] Oct, [facility] [address] [id number] [address] [place] [address], [place] [address] Oct, [facility] [address] [id number] [address] [place] [id number] Oct, [facility] [address] [facility] [id number] [address] [place] [id number] Oct, [facility] [address] [facility] [id number] [address] [place] [id number] Oct, [facility] [address] [facility] [id number] [address] [place] [id number] Oct, [facility] [address] [facility] [id number] [address] [place] [id number] Aug, [facility] [address] [facility] [id number] [address] [place] [id number] Aug, IMMUNIZATIONS No Known Immunizations SOCIAL HISTORY Never Assessed REASON FOR VISIT Refill Request PLAN OF CARE VITAL SIGNS MEDICATIONS Unknown Medications RESULTS No Results PROCEDURES No Known procedures INSTRUCTIONS MEDICATIONS ADMINISTERED No Known Medications MEDICAL (GENERAL) HISTORY Type Description Date Medical History hypertension Medical History asthma Medical History Arthritis Medical History Hypoglycemia Medical History Heart Cath 11/05/2013 Medical History herniated disc--Seen by Dr. Troy Michelle pain specialist in [place], [place] Medical History Chronic low back pain Medical History depression Medical History anxiety Medical History Panic attacks Medical History Vitamin B 12 deficiency r/t gastric bypa ss Medical History Low back injections 11/2012, 06/2013 Medical History Thrombocytosis Surgical History tonsillectomy Surgical History gastric bypass--2003-in [facility] Unsure of Dr's name. No [...]
--- OUTSIDE RECORDS SUMMARY | 2020-06-19 02:20 | XMS REPORT ---
Author Author Mahsa ROBERTS Organization [facility] Address [address] [place] [address] Care Team Providers Care Mold Carrier Name Role Phone ARMANDO ASHVIN Unavailable PROBLEMS Type Condition ICD9-CM Code TZI33-GM Code Onset Dates Condition S tatus SNOMED Code Problem Chronic prescription opiate use Z79.899 Active 001191821 Problem B12 deficiency E53.8 Active 11772 4004 Problem Bilateral low back pain, with sciatica presence unspecifie d M54.5 Active 032386373 Problem CKD (chronic kidney disease) stage 3, GFR 30-59 ml/min N18.3 Active 171800770 Problem Drug induced constipation K59.03 Acti ve [id number] Problem GERD (gastroesophageal reflux disease) K21.9 Active 050439046 Problem Allergic rhinitis J30.9 Active 61 746076 Problem Chronic obstructive pulmonary disease, unspecified COPD ty pe J44.9 Active 11835800 Problem Fibromyalgia M79.7 Active 8158731 7 Problem Chronic pain syndrome G89.4 Active 520470594 Problem Primary insomnia F51.01 Active 193 452000 Problem Other constipation K59.09 Active 1 [id number] Problem Atherosclerosis of [place] co ronary artery of [place] heart without angina pectoris I25.10 Active [id number] Problem Major depressive disorder, recurrent episode, un specified severity F33.9 Active 78578039 Problem Anxiety F41.9 Active 57130937 Problem Hyperlipidemia, unspecified hyperlipidemia E78.5 Active 73894679 Problem Essential hypertension I10 Active 18115019 Problem Chronic prescription benzodiazepine use Z79.899 Active 712820877 ALLERGIES No Information ENCOUNTERS Encounter Location Date Diagnosis [facility] [address] [facility] [id number] [address] [place] [address] May, [facility] [address] [facility] [id number] [address] [place] [address] Apr, Anxiety F41.9 [place] [address] [place] [id number] [address] [place] [address] Apr, Chronic prescription opiate use Z79.899 ; Chronic pain syndrome G89.4 ; Essential hypertension I10 ; Allergic rhinitis J30.9 and CKD (chronic kidney disease) stage 3, GFR 30-59 ml/min N18.3 [place] [address] [address] Apr, [place] [address] [place] [id number] [address] [place] [address] March, Anxiety F41.9 and Chronic pa in syndrome G89.4 [place] [address] [address] March, CKD (chronic kidney disease) stage 3, GFR 30-59 ml/min N18.3 ; B12 deficiency E53.8 and Hyperlipidemia, unspecified hyperlipidemia E78.5 [place] [address] [address] March, Anxiety F41.9 and Chronic pa in syndrome G89.4 [place] [address] [address] Feb, Anxiety F41.9 and Chronic pa in syndrome G89.4 [place] [address] [place] [id number] [address] [place] [address] Jan, B12 deficiency E53.8 [place] [address] [place] [id number] [address] [place] [address] Jan, [place] [address] [place] [id number] [address] [place] [address] Jan, Anxiety F41.9 ; Chronic pain syndrome G89.4 and Essential hypertension I10 [place] [address] [place] [id number] [address] [place] [address] Jan, CKD (chronic kidney disease) stage 3, [...] Subacromial bursitis of right shoulder joint M75.51 [place] [address] [place] [id number] [address] [place] [address] Dec, Essential hypertension I10 [place] [address] [address] Dec, Chronic pain syndrome G89.4 [place] [address] [place] [id number] [place] [address] Dec, Chronic pain syndrome G89.4 [place] [address] [address] Nov, [place] [address] [place] [id number] [address] [place] [address] Nov, Chronic pain syndrome G89.4 and Anxiety F41.9 [place] [address] [place] [id number] [place] [address] Oct, Chronic pain syndrome G89.4 ; Other constipation K59.09 and Chronic prescription opiate use Z79.899 [place] [address] [place] [id number] [place] [address] Oct, Chronic pain syndrome G89.4 and Anxiety F41.9 [place] [address] [place] [id number] [address] [place] [address] Sep, Essential hypertension I10 [place] [address] [place] [id number] [place] [address] Sep, Chronic pain syndrome G89.4 and Anxiety F41.9 [place] [address] [place] [id number] [address] [place] [address] Aug, Chronic pain syndrome G89.4 and Anxiety F41.9 [facility] [address] [facility] [id number] [address] [place] [address] Jul, Essential hypertension I10 [facility] [address] [facility] [id number] [address] [place] [address] 22 Jul, 2017 Chronic obstructive pulmonar y disease, unspecified COPD type J44.9 [facility] [address] [facility] [id number] [address] [place] [address] Jul, Chronic pain syndrome G89.4 and Anxiety F41.9 [place] [address] [place] [id number] [address] [place] [address] 13 Jul, 2017 Chronic pain syndrome G89.4 ; Essential hypertension I10 ; Fibromyalgia M79.7 ; CKD (chronic kidney disease) stage 3, GFR 30-59 ml/min N18.3 ; Subacromial bursitis, right M75.51 and Goals of care, co unseling/discussion Z71.89 [place] [address] [facility] [id number] [address] [place] [address] Jun, Chronic pain syndrome G89.4 and Anxiety F41.9 [place] [address] [place] [id number] [address] [place] [address] May, Chronic pain syndrome G89.4 and Anxiety F41.9 [place] [address] [facility] [id number] [address] [place] [address] Apr, Chronic pain syndrome G89.4 and Anxiety F41.9 [place] [address] [facility] [id number] [address] [place] [address] 14 Apr, 2017 Drug induced constipation K5 9.03 ; Chronic pain syndrome G89.4 and CKD (chronic kidney disease) stage 3, GFR 30-59 ml/min N18.3 [place] [address] [facility] [id number] [address] [place] [address] 02 Apr, 2017 Chronic pain syndrome G89.4 and Anxiety F41.9 [place] [address] [place] [id number] [address] [place] [address] March, Chronic pain syndrome G89.4 and Anxiety F41.9 [facility] [address] [place] [id number] [place] [address] March, Decreased GFR R94.4 [facility] [address] [place] [id number] [address] [place] [address] Feb, [facility] [address] [place] [id number] [place] [address] Feb, Chronic pain syndrome G89.4 and Anxiety F41.9 [facility] [address] [place] [id number] [place] [address] Jan, Decreased GFR R94.4 [place] [address] [place] [id number] [place] [address] Jan, Decreased GFR R94.4 [place] [address] [address] Jan, Allergic rhinitis J30.9 ; Es sential hypertension I10 ; Major depressive disorder, recurrent episode, unspecified severity F33.9 and Primary insomnia F51.01 [place] [address] [address] Jan, Acute right-sided thoracic b ack pain M54.6 ; Subacromial bursitis of right shoulder joint M75.51 ; Chronic pain syndrome G89.4 and Anxiety F41.9 [facility] [address] [place] [id number] [place] [address] Jan, Decreased GFR R94.4 [facility] [address] [address] Dec, Decreased GFR R94.4 [place] [address] [place] [id number] [place] [address] Dec, Decreased GFR R94.4 [facility] [address] [place] [id number] [place] [address] Dec, Decreased GFR R94.4 [place] [address] [address] Dec, Decreased GFR R94.4 [place] [address] [place] [id number] [place] [address] Dec, Anxiety F41.9 and Bilateral low back pain, with sciatica presence unspecified M54.5 [place] [address] [address] Dec, Thrombocytosis D47.3 ; Hyper lipidemia, unspecified hyperlipidemia E78.5 ; Need for hepatitis C screening test Z11.59 and B12 deficiency E53.8 [place] [address] [address] Nov, Need for hepatitis C screeni ng test Z11.59 [place] [address] [address] Nov, Anxiety F41.9 and Bilateral low back pain, with sciatica presence unspecified M54.5 [place] [address] [address] Oct, Bilateral low back pain, wit h sciatica presence unspecified M54.5 ; Chronic prescription opiate use Z79.899 ; Anxiety F41.9 ; Essential hypertension I10 ; Hyperlipidemia, unspecified hyperlipidemia E78.5 ; Health care maintenance Z00.00 and Thrombocytosis D47.3 [place] [address] [place] [id number] [address] [place] [address] Sep, [place] [address] [address] Sep, [place] [address] [address] Aug, [place] [address] [address] Jul, B12 deficiency E53.8 [facility] [address] [facility] [id number] [address] [place] [address] Jul, [facility] [address] [facility] [id number] [address] [place] [address] Jul, Essential hypertension I10 ; Chronic pain syndrome G89.4 ; Anxiety F41.9 ; Screening for breast cancer Z12.39 ; Atherosclerosis of [place] coronary artery of [place] heart without angina pectoris I25.10 ; Major depressive disorder, recurrent episode, unspecified severity F33.9 ; Primary insomnia F51.01 and Allergic rhinitis J30.9 [facility] [address] [facility] [id number] [address] [place] [address] Jun, [facility] [address] [place] [id number] [address] [place] [address] Jun, Leg wound, right, initial en counter S81.801A and Encounter for immunization Z23 [place] [address] [place] [id number] [place] [address] Jun, Open wound of right ear, uns pecified open wound type, initial encounter S01.301A [place] [address] [place] [id number] [place] [address] May, B12 deficiency E53.8 [place] [address] [facility] [id number] [address] [place] [address] May, [facility] [address] [facility] [id number] [address] [place] [address] May, [place] [address] [place] [id number] [address] [place] [address] May, Chronic pain syndrome G89.4 ; Chronic prescription opiate use Z79.899 ; Allergic rhinitis J30.9 ; Essential hypertension I10 and Non-healing skin lesion L98.9 [place] [address] [place] [address] Apr, [place] [address] [address] March, [facility] [address] [facility] [id number] [address] [place] [address] Feb, [facility] [address] [facility] [id number] [address] [place] [address] Feb, [facility] [address] [facility] [id number] [address] [place] [address] Feb, Chronic pain syndrome G89.4 ; Anxiety F41.9 ; B12 deficiency E53.8 ; Allergic rhinitis J30.9 ; Fibromyalgia M79.7 ; Actinic keratosis L57.0 ; Skin rash R21 ; Open wound of right ear, unspecified open wound type, initial encounter S01.301A ; Subacromial bursitis, right M75.51 ; GERD (gastroesophageal reflux disease) K21.9 and Chronic obstructive pulmonary disease, unspecified COPD type J44.9 [facility] [address] [place] [address] Jan, [facility] [address] [facility] [id number] [address] [place] [address] Jan, Essential hypertension I10 [facility] [address] [facility] [id number] [address] [place] [address] Jan, [facility] [address] [place] [id number] [address] [place] [address] Jan, [facility] [address] [facility] [id number] [address] [place] [address] Jan, [facility] [address] [facility] [id number] [address] [place] [address] Dec, [facility] [address] [facility] [id number] [address] [place] [address] Dec, Essential hypertension I10 [facility] [address] [facility] [id number] [address] [place] [address] Dec, [facility] [address] [place] [id number] [address] [place] [address] Dec, B12 deficiency E53.8 and Ess ential hypertension I10 [facility] [address] [facility] [id number] [address] [place] [address] Dec, [facility] [address] [facility] [id number] [address] [place] [address] Nov, Right shoulder pain M25.511 [facility] [address] [facility] [id number] [address] [place] [address] Nov, Right shoulder pain M25.511 [facility] [address] [facility] [id number] [address] [place] [address] Nov, Essential hypertension I10 a nd B12 deficiency E53.8 [facility] [address] [place] [id number] [address] [place] [address] Nov, Major depressive disorder, r ecurrent episode, unspecified severity F33.9 ; Anxiety F41.9 ; Chronic pain syndrome G89.4 ; Essential hypertension I10 ; Hyperlipidemia, unspecified hyperlipidemia E78.5 ; Chronic prescription opiate use Z79.899 ; Allergic rhinitis J30.9 ; B12 deficiency E53.8 and Right shoulder pain M25.511 [facility] [address] [place] [id number] [address] [place] [address] 17 Oct, 2015 [facility] [address] [place] [id number] [address] [place] [address] Oct, [facility] [address] [place] [address] Sep, [facility] [address] [facility] [id number] [address] [place] [address] Sep, [facility] [address] [place] [id number] [address] [place] [address] Aug, [facility] [address] [place] [id number] [address] [place] [address] Aug, [facility] [address] [place] [id number] [address] [place] [address] Aug, [facility] [address] [id number] [address] [place] [address] Aug, Other constipation K59.09 ; Hyperlipidemia, unspecified hyperlipidemia E78.5 ; Essential hypertension I10 ; Primary insomnia F51.01 ; Anxiety F41.9 ; Chronic pain syndrome G89.4 ; Right shoulder pain M25.511 and Acute cystitis without hematuria N30.00 [facility] [address] [id number] [address] [place] [address] Jul, [facility] [address] [id number] [address] [place] [address] Jul, [facility] [address] [place] [id number] [address] [place] [address] Jun, [facility] [address] [place] [id number] [address] [place] [address] Jun, [facility] [address] [place] [id number] [address] [place] [address] Jun, [facility] [address] [facility] [id number] [address] [place] [address] May, [facility] [address] [place] [id number] [address] [place] [address] May, Other chronic pain 338.29 ; Hypertension 401.9 and Constipation due to opioid therapy 564.09 [facility] [address] [facility] [id number] [address] [place] [address] May, [facility] [address] [id number] [address] [place] [address] May, [facility] [address] [place] [id number] [address] [place] [address] Apr, [facility] [address] [place] [id number] [address] [place] [address] Apr, Unspecified essential hypert ension 401.9 [facility] [address] [id number] [address] [place] [address], [place] [address] 16 Apr, 2015 [facility] [address] [id number] [address] [place] [address], [place] [address] 16 Apr, 2015 [facility] [address] [id number] [address] [place] [address], [place] [address] 16 Apr, 2015 [facility] [address] [id number] [address] [place] [address], [place] [address] 16 Apr, 2015 [facility] [address] [id number] [address] [place] [address], [place] [address] 15 Apr, 2015 [facility] [address] [id number] [address] [place] [address], [place] [address] Apr, [facility] [address] [id number] [address] [place] [address], [place] [address] March, Unspecified essential hypert ension 401.9 [facility] [address] [id number] [address] [place] [address], [place] [address] March, [facility] [address] [id number] [address] [place] [address], [place] [address] March, [facility] [address] [id number] [address] [place] [address], [place] [address] [address], [address] [facility] [address] [id number] [address] [place] [address], [place] [address] Feb, [facility] [address] [id number] [address] [place] [address] 23 Jan, 2015 [facility] [address] [id number] [address] [place] [address], [place] [address] Jan, [facility] [address] [id number] [address] [place] [address], [place] [address] [address], [address] [facility] [address] [id number] [address] [place] [address], [place] [address] 17 Jan, 2015 [facility] [address] [id number] [address] [place] [address] 13 Jan, 2015 [facility] [address] [id number] [address] [place] [address], [place] [address] Jan, [facility] [address] [id number] [address] [place] [address], [place] [address] 02 Jan, 2015 [facility] [address] [id number] [address] [place] [address], [place] [address] 16 Dec, 2014 [facility] [address] [id number] [address] [place] [address], [place] [address] 16 Dec, 2014 [facility] [address] [id number] [address] [place] [address], [place] [address] Dec, [facility] [address] [id number] [address] [place] [address], [place] [address] Nov, [facility] [address] [id number] [address] [place] [address], [place] [address] Nov, [facility] [address] [id number] [address] [place] [address], [place] [address] Oct, [facility] [address] [id number] [address] [place] [address], [place] [address] Oct, [facility] [address] [id number] [address] [place] [address], [place] [address] Oct, [facility] [address] [id number] [address] [place] [address], [place] [address] Oct, [facility] [address] [id number] [address] [place] [address], [place] [address] Oct, [facility] [address] [id number] [address] [place] [address], [place] [address] Oct, [facility] [address] [id number] [address] [place] [address], [place] [address] Oct, [facility] [address] [id number] [address] [place] [address], [place] [address] Oct, [facility] [address] [id number] [address] [place] [address], [place] [address] Sep, [facility] [address] [id number] [address] [place] [address], [place] [address] Sep, [facility] [address] [id number] [address] [place] [address], [place] [address] Sep, [facility] [address] [id number] [address] [place] [address], [place] [address] Sep, [facility] [address] [id number] [address] [place] [address], [place] [address] Sep, [facility] [address] [id number] [address] [place] [address], [place] [address] Sep, [facility] [address] [id number] [address] [place] [address], [place] [address] Aug, [facility] [address] [id number] [address] [place] [address], [place] [address] Aug, [facility] [address] [id number] [address] [place] [address], [place] [address] Aug, [facility] [address] [id number] [address] [place] [address], [place] [address] Aug, [facility] [address] [id number] [address] [place] [address], [place] [address] Aug, [facility] [address] [id number] [address] [place] [address], [place] [address] Aug, [facility] [address] [id number] [address] [place] [address], [place] [address] Aug, [facility] [address] [id number] [address] [place] [address], [place] [address] Aug, [facility] [address] [id number] [address] [place] [address], [place] [address] Aug, [facility] [address] [id number] [address] [place] [address], [place] [address] Aug, [facility] [address] [id number] [address] [place] [address] Jul, [facility] [address] [id number] [facility] [place] [address] Jul, [facility] [address] [id number] [address] [place] [address], [place] [address] Jul, [facility] [address] [id number] [address] [place] [address], [place] [address] Jul, [facility] [address] [id number] [address] [place] [address], [place] [address] Jul, [facility] [address] [id number] [address] [place] [address], [place] [address] Jul, [facility] [address] [id number] [address] [place] [address], [place] [address] Jun, [facility] [address] [id number] [address] [place] [address], [place] [address] Jun, [facility] [address] [id number] [address] [place] [address], [place] [address] Jun, [facility] [address] [id number] [address] [place] [address], [place] [address] Jun, [facility] [address] [id number] [address] [place] [address], [place] [address] Jun, [facility] [address] [id number] [address] [place] [address], [place] [address] Jun, [facility] [address] [id number] [address] [place] [address], [place] [address] May, [facility] [address] [id number] [address] [place] [address], [place] [address] May, [facility] [address] [id number] [address] [place] [address], [place] [address] May, [facility] [address] [id number] [facility] [place] [id number] 11 May, 2014 [facility] [address] [id number] [address] [place] [address], [place] [address] May, [facility] [address] [id number] [address] [place] [address], [place] [address] Apr, [facility] [address] [id number] [address] [place] [address], [place] [address] Apr, [facility] [address] [id number] [address] [place] [address], [place] [address] Apr, [facility] [address] [id number] [address] [place] [address], [place] [address] Apr, [facility] [address] [id number] [address] [place] [address], [place] [address] March, [facility] [address] [id number] [address] [place] [address], [place] [address] March, [facility] [address] [id number] [address] [place] [address], [place] [address] March, [facility] [address] [id number] [address] [place] [address], [place] [address] March, [facility] [address] [id number] [address] [place] [address], [place] [address] March, [facility] [address] [id number] [address] [place] [address], [place] [address] March, [facility] [address] [id number] [address] [place] [address], [place] [address] Feb, [facility] [address] [id number] [address] [place] [address], [place] [address] Feb, [facility] [address] [id number] [address] [place] [address], [place] [address] Feb, [facility] [address] [id number] [address] [place] [address], [place] [address] Feb, [facility] [address] [id number] [address] [address] Feb, [facility] [address] [id number] [address] [place] [address], [place] [address] Feb, [facility] [address] [id number] [facility] [address] Feb, [facility] [address] [id number] [address] [place] [address], [place] [address] Feb, [facility] [address] [id number] [address] [place] [address], [place] [address] Jan, [facility] [address] [id number] [address] [place] [address], [place] [address] Jan, [facility] [address] [id number] [address] [place] [address], [place] [address] Jan, [facility] [address] [id number] [address] [place] [address], [place] [address] Jan, [facility] [address] [id number] [address] [place] [address], [place] [address] Jan, [facility] [address] [id number] [address] [place] [address], [place] [address] Jan, [facility] [address] [id number] [address] [place] [address], [place] [address] Dec, [facility] [address] [id number] [address] [place] [address], [place] [address] Dec, [facility] [address] [id number] [address] [place] [address], [place] [address] Nov, [facility] [address] [id number] [address] [place] [address], [place] [address] Nov, [facility] [address] [id number] [address] [place] [address], [place] [address] Nov, [facility] [address] [id number] [address] [place] [address], [place] [address] Nov, [facility] [address] [id number] [address] [place] [address], [place] [address] Nov, [facility] [address] [id number] [address] [place] [address], [place] [address] Nov, [facility] [address] [id number] [address] [place] [address], [place] [address] Nov, [facility] [address] [id number] [address] [place] [address], [place] [address] Nov, [facility] [address] [id number] [address] [place] [address], [place] [address] Nov, [facility] [address] [id number] [address] [place] [address], [place] [address] Nov, [facility] [address] [id number] [address] [place] [address], [place] [address] Nov, [facility] [address] [id number] [address] [place] [address], [place] [address] Nov, [facility] [address] [id number] [address] [place] [address], [place] [address] Nov, [facility] [address] [id number] [address] [place] [address], [place] [address] Nov, [facility] [address] [id number] [address] [place] [address], [place] [address] Nov, [facility] [address] [id number] [address] [place] [address], [place] [address] Oct, [facility] [address] [id number] [address] [place] [address], [place] [address] Oct, [facility] [address] [id number] [address] [place] [address], [place] [address] Oct, [facility] [address] [id number] [address] [place] [address], [place] [address] Oct, [facility] [address] [id number] [address] [place] [address] Oct, [facility] [address] [id number] [address] [place] [address] Oct, [facility] [address] [id number] [address] [place] [address] Oct, [facility] [address] [id number] [address] [place] [address] Oct, [facility] [address] [id number] [address] [place] [address] Oct, [facility] [address] [facility] [id number] [address] [place] [address] Aug, [facility] [address] [facility] [id number] [address] [place] [address] Aug, IMMUNIZATIONS No Known Immunizations SOCIAL HISTORY Never Assessed REASON FOR VISIT Controlled Med Refill PLAN OF CARE VITAL SIGNS MEDICATIONS Medication Instructions Dosage Frequency Start Date End Date Duration S tatus MS Contin 15 mg Orally every 12 hrs 1 tablet 12h Feb, 28 days Active Clonazepam 1 MG Orally Once a day 1 tablet at bedtime 24h Sep 28 days Active Oxycodone HCl 10 mg Orally every 6 hrs 1 tablet as needed 6h Feb, 28 days Active RESULTS No Results PROCEDURES No Known procedures INSTRUCTIONS MEDICATIONS ADMINISTERED No Known Medications MEDICAL (GENERAL) HISTORY Type Description Date Medical History hypertension Medical History asthma Medical History Arthritis Medical History Hypoglycemia Medical History Heart Cath 11/05/2013 Medical History herniated disc--Seen by Dr. Troy Michelle pain specialist in [place], [place] Medical History Chronic low back pain [...]
--- OUTSIDE RECORDS SUMMARY | 2020-06-19 02:20 | XMS REPORT ---
Author Author Mahsa BUCHANAN Organization [facility] [place] Address [address] [place] [address] Care Team Providers Care Med Dir Name Role Phone BUCHANANJAG Vega Unavailable PROBLEMS Type Condition ICD9-CM Code [id number] Code Onset Dates Condition S tatus SNOMED Code Problem Chronic prescription opiate use Z79.899 Active 233728593 Problem B12 deficiency E53.8 Active 79654 4004 Problem Bilateral low back pain, with sciatica presence unspecifie d M54.5 Active 699496646 Problem CKD (chronic kidney disease) stage 3, GFR 30-59 ml/min N18.3 Active 206837593 Problem Drug induced constipation K59.03 Acti ve [id number] Problem GERD (gastroesophageal reflux disease) K21.9 Active 920713114 Problem Allergic rhinitis J30.9 Active 61 818252 Problem Chronic obstructive pulmonary disease, unspecified COPD ty pe J44.9 Active 88643666 Problem Fibromyalgia M79.7 Active 5305501 7 Problem Chronic pain syndrome G89.4 Active 748296664 Problem Primary insomnia F51.01 Active 193 039865 Problem Other constipation K59.09 Active 1 [id number] Problem Atherosclerosis of beaver co ronary artery of 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.10 Active 4450257804617 Problem Major depressive disorder, recurrent episode, un specified severity F33.9 Active 90835630 Problem Anxiety F41.9 Active 85184019 Problem Hyperlipidemia, unspecified hyperlipidemia E78.5 Active 92714530 Problem Essential hypertension I10 Active 11984936 Problem Chronic prescription benzodiazepine use Z79.899 Active 036772165 ALLERGIES No Information ENCOUNTERS Encounter Location Date Diagnosis [facility] [place] [address] [facility] [id number] [address] [place] [phone] May, Chronic pain syndrome G89.4 and Anxiety F41.9 [facility] [place] [address] [facility] [id number] [address] [place] [address] Apr, Anxiety F41.9 [place] [address] [facility] [id number] [address] [place] [address] Apr, Chronic prescription opiate use Z79.899 ; Chronic pain syndrome G89.4 ; Essential hypertension I10 ; Allergic rhinitis J30.9 and CKD (chronic kidney disease) stage 3, GFR 30-59 ml/min N18.3 [place] [address] [place] [id number] [address] [place] [phone] Apr, [place] [address] [place] [id number] [address] [place] [phone] March, Anxiety F41.9 and Chronic pa in syndrome G89.4 [place] [address] [place] [id number] [address] [place] [phone] March, CKD (chronic kidney disease) stage 3, GFR 30-59 ml/min N18.3 ; B12 deficiency E53.8 and Hyperlipidemia, unspecified hyperlipidemia E78.5 [place] [address] [place] [id number] [address] [place] [phone] March, Anxiety F41.9 and Chronic pa in syndrome G89.4 [place] [address] [facility] [id number] [address] [place] [phone] Feb, Anxiety F41.9 and Chronic pa in syndrome G89.4 [place] [address] [facility] [id number] [address] [place] [phone] Jan, B12 deficiency E53.8 [place] [address] [facility] [id number] [address] [place] [phone] Jan, [place] [address] [place] [id number] [address] [place] [phone] Jan, Anxiety F41.9 ; Chronic pain syndrome G89.4 and Essential hypertension I10 [place] [address] [place] [id number] [address] [place] [phone] Jan, CKD (chronic kidney disease) stage 3, [...] Subacromial bursitis of right shoulder joint M75.51 [place] [address] [place] [id number] [address] [place] [phone] Dec, Essential hypertension I10 [place] [address] [address] Dec, Chronic pain syndrome G89.4 [place] [address] [place] [id number] [place] [address] Dec, Chronic pain syndrome G89.4 [place] [address] [address] Nov, [place] [address] [address] Nov, Chronic pain syndrome G89.4 and Anxiety F41.9 [place] [address] [address] Oct, Chronic pain syndrome G89.4 ; Other constipation K59.09 and Chronic prescription opiate use Z79.899 [place] [address] [place] [id number] [address] [place] [phone] Oct, Chronic pain syndrome G89.4 and Anxiety F41.9 [place] [address] [place] [id number] [address] [place] [phone] Sep, Essential hypertension I10 [place] [address] [place] [id number] [place] [address] Sep, Chronic pain syndrome G89.4 and Anxiety F41.9 [place] [address] [address] Aug, Chronic pain syndrome G89.4 and Anxiety F41.9 [place] [address] [place] [id number] [address] [place] [phone] Jul, Essential hypertension I10 [facility] [place] [address] [facility] [id number] [address] [place] [phone] 22 Jul, 2017 Chronic obstructive pulmonar y disease, unspecified COPD type J44.9 [place] [address] [place] [id number] [address] [place] [phone] Jul, Chronic pain syndrome G89.4 and Anxiety F41.9 [place] [address] [place] [id number] [place] [phone] 13 Jul, 2017 Chronic pain syndrome G89.4 ; Essential hypertension I10 ; Fibromyalgia M79.7 ; CKD (chronic kidney disease) stage 3, GFR 30-59 ml/min N18.3 ; Subacromial bursitis, right M75.51 and Goals of care, co unseling/discussion Z71.89 [place] [address] [place] [id number] [address] [place] [phone] Jun, Chronic pain syndrome G89.4 and Anxiety F41.9 [place] [address] [place] [id number] [address] [place] [phone] May, Chronic pain syndrome G89.4 and Anxiety F41.9 [place] [address] [place] [id number] [address] [place] [phone] Apr, Chronic pain syndrome G89.4 and Anxiety F41.9 [place] [address] [place] [id number] [address] [place] [phone] 14 Apr, 2017 Drug induced constipation K5 9.03 ; Chronic pain syndrome G89.4 and CKD (chronic kidney disease) stage 3, GFR 30-59 ml/min N18.3 [facility] [place] [address] [place] [id number] [address] [place] [phone] 02 Apr, 2017 Chronic pain syndrome G89.4 and Anxiety F41.9 [facility] [place] [address] [facility] [id number] [address] [place] [phone] March, Chronic pain syndrome G89.4 and Anxiety F41.9 [facility] [place] [address] [facility] [id number] [address] [place] [phone] March, Decreased GFR R94.4 [facility] [place] [address] [facility] [id number] [address] [place] [phone] Feb, [facility] [place] [address] [facility] [id number] [address] [place] [phone] Feb, Chronic pain syndrome G89.4 and Anxiety F41.9 [place] [address] [place] [id number] [address] [place] [phone] Jan, Decreased GFR R94.4 [place] [address] [place] [id number] [address] [place] [phone] Jan, Decreased GFR R94.4 [place] [address] [place] [id number] [address] [place] [phone] Jan, Allergic rhinitis J30.9 ; Es sential hypertension I10 ; Major depressive disorder, recurrent episode, unspecified severity F33.9 and Primary insomnia F51.01 [place] [address] [place] [id number] [address] [place] [phone] Jan, Acute right-sided thoracic b ack pain M54.6 ; Subacromial bursitis of right shoulder joint M75.51 ; Chronic pain syndrome G89.4 and Anxiety F41.9 [facility] [place] [address] [facility] [id number] [address] [place] [phone] Jan, Decreased GFR R94.4 [place] [address] [place] [id number] [address] [place] [phone] Dec, Decreased GFR R94.4 [place] [address] [facility] [id number] [address] [place] [phone] Dec, Decreased GFR R94.4 [place] [address] [place] [id number] [address] [place] [phone] Dec, Decreased GFR R94.4 [place] [address] [place] [id number] [place] [address] Dec, Decreased GFR R94.4 [place] [address] [place] [id number] [place] [address] Dec, Anxiety F41.9 and Bilateral low back pain, with sciatica presence unspecified M54.5 [place] [address] [address] Dec, Thrombocytosis D47.3 ; Hyper lipidemia, unspecified hyperlipidemia E78.5 ; Need for hepatitis C screening test Z11.59 and B12 deficiency E53.8 [place] [address] [address] Nov, Need for hepatitis C screeni ng test Z11.59 [place] [address] [address] Nov, Anxiety F41.9 and Bilateral low back pain, with sciatica presence unspecified M54.5 [place] [address] [address] Oct, Bilateral low back pain, wit h sciatica presence unspecified M54.5 ; Chronic prescription opiate use Z79.899 ; Anxiety F41.9 ; Essential hypertension I10 ; Hyperlipidemia, unspecified hyperlipidemia E78.5 ; Health care maintenance Z00.00 and Thrombocytosis D47.3 [place] [address] [place] [id number] [address] [place] [phone] Sep, [place] [address] [address] Sep, [place] [address] [place] [id number] [place] [phone] Aug, [place] [address] [address] Jul, B12 deficiency E53.8 [facility] [place] [address] [facility] [id number] [address] [place] [phone] Jul, [place] [address] [facility] [id number] [address] [place] [address] Jul, Essential hypertension I10 ; Chronic pain syndrome G89.4 ; Anxiety F41.9 ; Screening for breast cancer Z12.39 ; Atherosclerosis of beaver coronary artery of 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.10 ; Major depressive disorder, recurrent episode, unspecified severity F33.9 ; Primary insomnia F51.01 and Allergic rhinitis J30.9 [place] [address] [facility] [id number] [address] [place] [address] Jun, [facility] [address] [facility] [id number] [address] [place] [address] Jun, Leg wound, right, initial en counter S81.801A and Encounter for immunization Z23 [place] [address] [place] [id number] [address] [place] [phone] Jun, Open wound of right ear, uns pecified open wound type, initial encounter S01.301A [place] [address] [facility] [id number] [address] [place] [address] May, B12 deficiency E53.8 [place] [address] [facility] [id number] [address] [place] [phone] May, [place] [address] [facility] [id number] [address] [place] [phone] May, [facility] [place] [address] [facility] [id number] [address] [place] [address] May, Chronic pain syndrome G89.4 ; Chronic prescription opiate use Z79.899 ; Allergic rhinitis J30.9 ; Essential hypertension I10 and Non-healing skin lesion L98.9 [place] [address] [place] [id number] [address] [place] [phone] Apr, [place] [address] [place] [id number] [address] [place] [phone] March, [facility] [place] [address] [address] Feb, [facility] [place] [address] [place] [id number] [address] [place] [phone] Feb, [facility] [place] [address] [address] Feb, Chronic pain syndrome G89.4 ; Anxiety [...] [place] [address] [place] [phone] 30 Jan, 2016 [facility] [place] [address] [place] [id number] [address] [place] [address] Jan, Essential hypertension I10 [facility] [place] [address] [place] [id number] [address] [place] [phone] Jan, [facility] [place] [address] [place] [id number] [address] [place] [phone] Jan, [facility] [place] [address] [place] [phone] Jan, [facility] [place] [address] [place] [id number] [address] [place] [address] Dec, [facility] [place] [address] [place] [id number] [address] [place] [address] Dec, Essential hypertension I10 [facility] [place] [address] [place] [address] Dec, [facility] [place] [address] [place] [id number] [address] [place] [address] 12 Dec, 2015 B12 deficiency E53.8 and Ess ential hypertension I10 [facility] [place] [address] [place] [id number] [place] [address] Dec, [facility] [place] [address] [address] Nov, Right shoulder pain M25.511 [facility] [place] [address] [address] Nov, Right shoulder pain M25.511 [facility] [place] [address] [address] Nov, Essential hypertension I10 a nd B12 deficiency E53.8 [facility] [place] [address] [address] Nov, Major depressive disorder, r ecurrent episode, unspecified severity F33.9 ; Anxiety F41.9 ; Chronic pain syndrome G89.4 ; Essential hypertension I10 ; Hyperlipidemia, unspecified hyperlipidemia E78.5 ; Chronic prescription opiate use Z79.899 ; Allergic rhinitis J30.9 ; B12 deficiency E53.8 and Right shoulder pain M25.511 [facility] [place] [address] [place] [id number] [place] [address] Oct, [facility] [place] [address] [address] Oct, [facility] [place] [address] [address] Sep, [facility] [place] [address] [address] Sep, [facility] [place] [address] [address] Aug, [facility] [place] [address] [address] Aug, [facility] [place] [address] [id number] [address] [place] [phone] Aug, [facility] [place] [address] [id number] [address] [place] [address] Aug, Other constipation K59.09 ; Hyperlipidemia, unspecified hyperlipidemia E78.5 ; Essential hypertension I10 ; Primary insomnia F51.01 ; Anxiety F41.9 ; Chronic pain syndrome G89.4 ; Right shoulder pain M25.511 and Acute cystitis without hematuria N30.00 [facility] [place] [address] [id number] [address] [place] [id number] 16 Jul, 2015 [facility] [place] [address] [id number] [address] [place] [phone] Jul, [facility] [place] [address] [facility] [id number] [address] [place] [phone] Jun, [facility] [place] [address] [id number] [address] [place] [phone] Jun, [facility] [place] [address] [id number] [address] [place] [phone] Jun, [facility] [place] [address] [id number] [address] [place] [phone] May, [facility] [place] [address] [facility] [id number] [address] [place] [phone] May, Other chronic pain 338.29 ; Hypertension 401.9 and Constipation due to opioid therapy 564.09 [facility] [place] [address] [id number] [address] [place] [phone] May, [facility] [place] [address] [id number] [address] [place] [phone] May, [facility] [place] [address] [facility] [id number] [address] [place] [phone] Apr, [facility] [place] [address] [facility] [id number] [address] [place] [phone] Apr, Unspecified essential hypert ension 401.9 [facility] [address] [id number] [address] [place] [address], [place] [address] 16 Apr, 2015 [facility] [address] [id number] [address] [place] [phone] 16 Apr, 2015 [facility] [address] [id number] [address] [place] [phone] 16 Apr, 2015 [facility] [address] [id number] [address] [place] [phone] Apr, [facility] [place] [address] [id number] [address] [place] [phone] Apr, [facility] [address] [id number] [address] [place] [phone] Apr, [facility] [place] [address] [id number] [address] [place] [phone] March, Unspecified essential hypert ension 401.9 [facility] [place] [address] [id number] [address] [place] [phone] March, [facility] [place] [address] [id number] [address] [place] [phone] March, [facility] [place] [address] [id number] [address] [place] [phone] Feb, [facility] [place] [address] [id number] [address] [place] [id number] Feb, [facility] [address] [id number] [address] [place] [phone] Jan, [facility] [address] [id number] [address] [place] [phone] Jan, [facility] [address] [id number] [address] [place] [phone] 17 Jan, 2015 [facility] [address] [id number] [address] [place] [phone] 17 Jan, 2015 [facility] [address] [id number] [address] [place] [address], [place] [address] 13 Jan, 2014 [facility] [address] [id number] [address] [place] [address], [place] [address] 02 Jan, 2014 [facility] [address] [id number] [address] [place] [address], [place] [address] 02 Jan, 2014 [facility] [address] [id number] [address] [place] [address], [place] [address] 16 Dec, 2014 [facility] [address] [id number] [address] [place] [address], [place] [address] 16 Dec, 2014 [facility] [address] [id number] [address] [place] [address], [place] [address] 13 Dec, 2014 [facility] [address] [id number] [address] [place] [address], [place] [address] 16 Nov, 2014 [facility] [address] [id number] [address] [place] [address], [place] [address] Nov, [facility] [address] [id number] [address] [place] [address], [place] [address] Oct, [facility] [address] [id number] [address] [place] [address], [place] [address] Oct, [facility] [address] [id number] [address] [place] [address], [place] [address] Oct, [facility] [address] [id number] [address] [place] [address], [place] [address] Oct, [facility] [address] [id number] [address] [place] [address], [place] [address] Oct, [facility] [address] [id number] [address] [place] [address], [place] [address] Oct, [facility] [address] [id number] [address] [place] [address], [place] [address] Oct, [facility] [address] [id number] [address] [place] [address], [place] [address] Oct, [facility] [address] [id number] [address] [place] [address], [place] [address] Sep, [facility] [address] [id number] [address] [place] [address], [place] [address] Sep, [facility] [address] [id number] [address] [place] [address], [place] [address] Sep, [facility] [address] [id number] [address] [place] [address], [place] [address] Sep, [facility] [address] [id number] [address] [place] [address], [place] [address] Sep, [facility] [address] [id number] [address] [place] [address], [place] [address] Sep, [facility] [address] [id number] [address] [place] [address], [place] [address] Aug, [facility] [address] [id number] [address] [place] [address], [place] [address] Aug, [facility] [address] [id number] [address] [place] [address], [place] [address] Aug, [facility] [address] [id number] [address] [place] [address], [place] [address] Aug, [facility] [address] [id number] [address] [place] [address], [place] [address] Aug, [facility] [address] [id number] [address] [place] [address], [place] [address] Aug, [facility] [address] [id number] [address] [place] [address], [place] [address] Aug, [facility] [address] [id number] [address] [place] [address], [place] [address] Aug, [facility] [address] [id number] [address] [place] [address], [place] [address] Aug, [facility] [address] [id number] [address] [place] [address], [place] [address] Aug, [facility] [address] [id number] [facility] [place] [address] Jul, [facility] [address] [id number] [address] [place] [address], [place] [address] Jul, [facility] [address] [id number] [address] [place] [address], [place] [address] Jul, [facility] [address] [id number] [address] [place] [address], [place] [address] Jul, [facility] [address] [id number] [address] [place] [address], [place] [address] Jul, [facility] [address] [id number] [address] [place] [address], [place] [address] Jul, [facility] [address] [id number] [address] [place] [address], [place] [address] Jun, [facility] [address] [id number] [address] [place] [address], [place] [address] Jun, [facility] [address] [id number] [address] [place] [address], [place] [address] Jun, [facility] [address] [id number] [address] [place] [address], [place] [address] Jun, [facility] [address] [id number] [address] [place] [address], [place] [address] Jun, [facility] [address] [id number] [address] [place] [address], [place] [address] Jun, [facility] [address] [id number] [address] [place] [address], [place] [address] May, [facility] [address] [id number] [address] [place] [address], [place] [address] May, [facility] [address] [id number] [address] [place] [address], [place] [address] May, [facility] [address] [id number] [facility] [place] [address] May, [facility] [address] [id number] [facility] [address] May, [facility] [address] [id number] [address] [place] [address], [place] [address] Apr, [facility] [address] [id number] [address] [place] [address], [place] [address] Apr, [facility] [address] [id number] [address] [place] [address], [place] [address] Apr, [facility] [address] [id number] [address] [place] [address], [place] [address] Apr, [facility] [address] [id number] [address] [place] [address], [place] [address] March, [facility] [address] [id number] [address] [place] [address], [place] [address] March, [facility] [address] [id number] [address] [place] [address], [place] [address] March, [facility] [address] [id number] [address] [place] [address], [place] [address] March, [facility] [address] [id number] [address] [place] [address], [place] [address] March, [facility] [address] [id number] [address] [place] [address], [place] [address] March, [facility] [address] [id number] [address] [place] [address], [place] [address] Feb, [facility] [address] [id number] [address] [place] [address], [place] [address] Feb, [facility] [address] [id number] [address] [place] [address], [place] [address] Feb, [facility] [address] [id number] [address] [place] [address], [place] [address] Feb, [facility] [address] [id number] [facility] [place] [address] Feb, [facility] [address] [id number] [address] [place] [address], [place] [address] Feb, [facility] [address] [id number] [address] [place] [address], [place] [address] Feb, [facility] [address] [id number] [address] [place] [address], [place] [address] Feb, [facility] [address] [id number] [address] [place] [address], [place] [address] Jan, [facility] [address] [id number] [address] [place] [address], [place] [address] Jan, [facility] [address] [id number] [address] [place] [address], [place] [address] Jan, [facility] [address] [id number] [address] [place] [address], [place] [address] Jan, [facility] [address] [id number] [address] [place] [address], [place] [address] Jan, [facility] [address] [id number] [address] [place] [address], [place] [address] Jan, [facility] [address] [id number] [address] [place] [address], [place] [address] Dec, [facility] [address] [id number] [address] [place] [address], [place] [address] Dec, [facility] [address] [id number] [address] [place] [address], [place] [address] Nov, [facility] [address] [id number] [address] [place] [address], [place] [address] Nov, [facility] [address] [id number] [address] [place] [address], [place] [address] Nov, [facility] [address] [id number] [address] [place] [address], [place] [address] 10 Nov, 2013 [facility] [address] [id number] [address] [place] [address], [place] [address] Nov, [facility] [address] [id number] [address] [place] [address], [place] [address] Nov, [facility] [address] [id number] [address] [place] [address], [place] [address] Nov, [facility] [address] [id number] [address] [place] [address], [place] [address] Nov, [facility] [address] [id number] [address] [place] [address], [place] [address] Nov, [facility] [address] [id number] [address] [place] [address], [place] [address] Nov, [facility] [address] [id number] [address] [place] [address], [place] [address] Nov, [facility] [address] [id number] [address] [place] [address], [place] [address] Nov, [facility] [address] [id number] [address] [place] [address], [place] [address] Nov, [facility] [address] [id number] [address] [place] [address], [place] [address] Nov, [facility] [address] [id number] [address] [place] [address], [place] [address] Nov, [facility] [address] [id number] [address] [place] [address], [place] [address] Oct, [facility] [address] [id number] [address] [place] [address], [place] [address] Oct, [facility] [address] [id number] [address] [place] [address], [place] [address] Oct, [facility] [address] [id number] [address] [place] [address], [place] [address] Oct, [facility] [place] [address] [id number] [address] [place] [address] Oct, [facility] [place] [address] [id number] [address] [place] [address] Oct, [facility] [place] [address] [id number] [address] [place] [address] Oct, [facility] [place] [address] [id number] [address] [place] [address] Oct, [facility] [place] [address] [id number] [address] [place] [address] Oct, [facility] [place] [address] [id number] [address] [place] [phone] Aug, [facility] [place] [address] [facility] [id number] [address] [place] [id number] Aug, IMMUNIZATIONS No Known Immunizations SOCIAL HISTORY Never Assessed REASON FOR VISIT Controlled Med Refill PLAN OF CARE VITAL SIGNS MEDICATIONS Medication Instructions Dosage Frequency Start Date End Date Duration S tatus Clonazepam 0.5 MG Orally twice a day 1 tablet as needed for anxiety 12h Feb, 28 days Active MS Contin 15 mg Orally every 12 hrs 1 tablet 12h March, 28 days Active Oxycodone HCl 10 mg Orally every 6 hrs 1 tablet as needed 6h March, 28 days Active Clonazepam 1 MG Orally [...] by Dr. Troy Michelle pain specialist in [place], [place] Medical History Chronic low back pain [...]
--- OUTSIDE RECORDS SUMMARY | 2020-06-19 02:21 | XMS REPORT ---
Author Author Mahsa BUCHANAN Organization [facility] Address [address] [place] [address] Care Team Providers Care Content Assistant Name Role Phone BUCHANANJAG Vega Unavailable PROBLEMS Type Condition ICD9-CM Code [id number] Code Onset Dates Condition S tatus SNOMED Code Problem Chronic prescription opiate use Z79.899 Active 726261755 Problem B12 deficiency E53.8 Active 55052 4004 Problem Bilateral low back pain, with sciatica presence unspecifie d M54.5 Active 833993015 Problem CKD (chronic kidney disease) stage 3, GFR 30-59 ml/min N18.3 Active 388830336 Problem Drug induced constipation K59.03 Acti ve [id number] Problem GERD (gastroesophageal reflux disease) K21.9 Active 680855960 Problem Allergic rhinitis J30.9 Active 61 594369 Problem Chronic obstructive pulmonary disease, unspecified COPD ty pe J44.9 Active 00169053 Problem Fibromyalgia M79.7 Active 8258678 7 Problem Chronic pain syndrome G89.4 Active 216705212 Problem Primary insomnia F51.01 Active 193 306872 Problem Other constipation K59.09 Active 1 [id number] Problem Atherosclerosis of [place] co ronary artery of [place] heart without angina pectoris I25.10 Active 7123779087732 Problem Major depressive disorder, recurrent episode, un specified severity F33.9 Active 38400732 Problem Anxiety F41.9 Active 36399521 Problem Hyperlipidemia, unspecified hyperlipidemia E78.5 Active 56725298 Problem Essential hypertension I10 Active 91679382 Problem Chronic prescription benzodiazepine use Z79.899 Active 931480012 ALLERGIES No Information ENCOUNTERS Encounter Location Date Diagnosis [facility] [address] [facility] [id number] [address] [place] [address] Apr, [facility] [address] [facility] [id number] [address] [place] [address] March, Anxiety F41.9 and Chronic pa in syndrome G89.4 [place] [address] [place] [id number] [address] [place] [address] March, [place] [address] [place] [id number] [address] [place] [address] Feb, Anxiety F41.9 and Chronic pa in syndrome G89.4 [place] [address] [address] Jan, B12 deficiency E53.8 [place] [address] [place] [id number] [place] [address] Jan, [place] [address] [address] Jan, Anxiety F41.9 ; Chronic pain syndrome G89.4 and Essential hypertension I10 [place] [address] [address] Jan, CKD (chronic kidney disease) stage 3, [...] Subacromial bursitis of right shoulder joint M75.51 [place] [address] [place] [id number] [address] [place] [address] Dec, Essential hypertension I10 [place] [address] [place] [id number] [address] [place] [address] Dec, Chronic pain syndrome G89.4 [place] [address] [place] [id number] [place] [address] Dec, Chronic pain syndrome G89.4 [place] [address] [address] Nov, [place] [address] [address] Nov, Chronic pain syndrome G89.4 and Anxiety F41.9 [place] [address] [address] Oct, Chronic pain syndrome G89.4 ; Other constipation K59.09 and Chronic prescription opiate use Z79.899 [place] [address] [address] Oct, Chronic pain syndrome G89.4 and Anxiety F41.[address] [address] Sep, Essential hypertension I10 [address] [address] 16 Sep, 2017 Chronic pain syndrome G89.4 and Anxiety F41.9 [place] [address] [address] Aug, Chronic pain syndrome G89.4 and Anxiety F41.9 [place] [address] [address] 28 Jul, 2017 Essential hypertension I10 [place] [address] [address] 22 Jul, 2017 Chronic obstructive pulmonar y disease, unspecified COPD type J44.9 [place] [address] [address] Jul, Chronic pain syndrome G89.4 and Anxiety F41.[address] [address] 13 Jul, 2017 Chronic pain syndrome G89.4 ; Essential hypertension I10 ; Fibromyalgia M79.7 ; CKD (chronic kidney disease) stage 3, GFR 30-59 ml/min N18.3 ; Subacromial bursitis, right M75.51 and Goals of care, co unseling/discussion Z71.89 [facility] [address] [id number] [address] [place] [address] Jun, Chronic pain syndrome G89.4 and Anxiety F41.9 [facility] [address] [facility] [id number] [address] [place] [address] May, Chronic pain syndrome G89.4 and Anxiety F41.9 [facility] [address] [facility] [id number] [address] [place] [address] Apr, Chronic pain syndrome G89.4 and Anxiety F41.9 [facility] [address] [facility] [id number] [address] [place] [address] Apr, Drug induced constipation K5 9.03 ; Chronic pain syndrome G89.4 and CKD (chronic kidney disease) stage 3, GFR 30-59 ml/min N18.3 [facility] [address] [facility] [id number] [address] [place] [address] Apr, Chronic pain syndrome G89.4 and Anxiety F41.9 [facility] [address] [facility] [id number] [address] [place] [address] March, Chronic pain syndrome G89.4 and Anxiety F41.9 [facility] [address] [facility] [id number] [address] [place] [address] March, Decreased GFR R94.4 [facility] [address] [facility] [id number] [address] [place] [address] Feb, [facility] [address] [facility] [id number] [address] [place] [address] Feb, Chronic pain syndrome G89.4 and Anxiety F41.9 [facility] [address] [facility] [id number] [address] [place] [address] Jan, Decreased GFR R94.4 [facility] [address] [facility] [id number] [address] [place] [address] Jan, Decreased GFR R94.4 [facility] [address] [address] Jan, Allergic rhinitis J30.9 ; Es sential hypertension I10 ; Major depressive disorder, recurrent episode, unspecified severity F33.9 and Primary insomnia F51.01 [place] [address] [address] Jan, Acute right-sided thoracic b ack pain M54.6 ; Subacromial bursitis of right shoulder joint M75.51 ; Chronic pain syndrome G89.4 and Anxiety F41.9 [place] [address] [address] Jan, Decreased GFR R94.4 [place] [address] [address] Dec, Decreased GFR R94.4 [place] [address] [address] Dec, Decreased GFR R94.4 [place] [address] [address] Dec, Decreased GFR R94.4 [place] [address] [address] Dec, Decreased GFR R94.4 [place] [address] [address] Dec, Anxiety F41.9 and Bilateral low back pain, with sciatica presence unspecified M54.5 [place] [address] [address] Dec, Thrombocytosis D47.3 ; Hyper lipidemia, unspecified hyperlipidemia E78.5 ; Need for hepatitis C screening test Z11.59 and B12 deficiency E53.8 [place] [address] [place] [id number] [place] [address] Nov, Need for hepatitis C screeni ng test Z11.59 [place] [address] [address] Nov, Anxiety F41.9 and Bilateral low back pain, with sciatica presence unspecified M54.5 [place] [address] [address] Oct, Bilateral low back pain, wit h sciatica presence unspecified M54.5 ; Chronic prescription opiate use Z79.899 ; Anxiety F41.9 ; Essential hypertension I10 ; Hyperlipidemia, unspecified hyperlipidemia E78.5 ; Health care maintenance Z00.00 and Thrombocytosis D47.3 [facility] [address] [address] Sep, [place] [address] [address] Sep, [place] [address] [address] Aug, [place] [address] [address] Jul, B12 deficiency E53.8 [place] [address] [address] Jul, [place] [address] [address] Jul, Essential hypertension I10 ; Chronic pain syndrome G89.4 ; Anxiety F41.9 ; Screening for breast cancer Z12.39 ; Atherosclerosis of [place] coronary artery of [place] heart without angina pectoris I25.10 ; Major depressive disorder, recurrent episode, unspecified severity F33.9 ; Primary insomnia F51.01 and Allergic rhinitis J30.9 [place] [address] [address] Jun, [facility] [address] [address] Jun, Leg wound, right, initial en counter S81.801A and Encounter for immunization Z23 [place] [id number] [address] [place] [address] Jun, Open wound of right ear, uns pecified open wound type, initial encounter S01.301A [place] [address] [place] [id number] [place] [address] May, B12 deficiency E53.8 [place] [address] [place] [address] May, [place] [address] [address] May, [place] [address] [address] May, Chronic pain syndrome G89.4 ; Chronic prescription opiate use Z79.899 ; Allergic rhinitis J30.9 ; Essential hypertension I10 and Non-healing skin lesion L98.9 [place] [address] [address] Apr, [place] [address] [address] March, [place] [address] [address] Feb, [place] [address] [address] Feb, [place] [address] [address] Feb, Chronic pain syndrome G89.4 ; Anxiety F41.9 ; B12 deficiency E53.8 ; Allergic rhinitis J30.9 ; Fibromyalgia M79.7 ; Actinic keratosis L57.0 ; Skin rash R21 ; Open wound of right ear, unspecified open wound type, initial encounter S01.301A ; Subacromial bursitis, right M75.51 ; GERD (gastroesophageal reflux disease) K21.9 and Chronic obstructive pulmonary disease, unspecified COPD type J44.9 [place] [address] [address] 30 Jan, 2016 [facility] [address] [id number] [address] [place] [address] Jan, Essential hypertension I10 [facility] [address] [id number] [address] [place] [address] Jan, [facility] [address] [facility] [id number] [address] [place] [address] Jan, [facility] [address] [id number] [address] [place] [address] Jan, [facility] [address] [id number] [address] [place] [address] Dec, [facility] [address] [facility] [id number] [address] [place] [address] Dec, Essential hypertension I10 [facility] [address] [facility] [id number] [address] [place] [address] Dec, [facility] [address] [facility] [id number] [address] [place] [address] Dec, B12 deficiency E53.8 and Ess ential hypertension I10 [facility] [address] [facility] [id number] [address] [place] [address] Dec, [facility] [address] [facility] [id number] [address] [place] [address] Nov, Right shoulder pain M25.511 [facility] [address] [facility] [id number] [address] [place] [address] Nov, Right shoulder pain M25.511 [facility] [address] [facility] [id number] [address] [place] [address] Nov, Essential hypertension I10 a nd B12 deficiency E53.8 [facility] [address] [facility] [id number] [address] [place] [address] 14 Nov, 2015 Major depressive disorder, r ecurrent episode, unspecified severity F33.9 ; Anxiety F41.9 ; Chronic pain syndrome G89.4 ; Essential hypertension I10 ; Hyperlipidemia, unspecified hyperlipidemia E78.5 ; Chronic prescription opiate use Z79.899 ; Allergic rhinitis J30.9 ; B12 deficiency E53.8 and Right shoulder pain M25.511 [facility] [address] [place] [id number] [address] [place] [address] Oct, [facility] [address] [facility] [id number] [address] [place] [address] Oct, [facility] [address] [place] [id number] [address] [place] [address] Sep, [facility] [address] [place] [id number] [place] [address] Sep, [facility] [address] [place] [id number] [address] [place] [address] Aug, [facility] [address] [place] [id number] [place] [address] Aug, [facility] [address] [place] [id number] [address] [place] [address] Aug, [facility] [address] [place] [id number] [place] [address] Aug, Other constipation K59.09 ; Hyperlipidemia, unspecified hyperlipidemia E78.5 ; Essential hypertension I10 ; Primary insomnia F51.01 ; Anxiety F41.9 ; Chronic pain syndrome G89.4 ; Right shoulder pain M25.511 and Acute cystitis without hematuria N30.00 [facility] [address] [place] [id number] [address] [place] [address] Jul, [facility] [address] [place] [id number] [address] [place] [address] Jul, [facility] [address] [place] [id number] [address] [place] [address] Jun, [facility] [address] [place] [id number] [address] [place] [address] Jun, [facility] [address] [id number] [address] [place] [address] Jun, [facility] [address] [id number] [address] [place] [address] May, [facility] [address] [id number] [address] [place] [address] May, Other chronic pain 338.29 ; Hypertension 401.9 and Constipation due to opioid therapy 564.09 [facility] [address] [id number] [address] [place] [address] 17 May, 2015 [facility] [address] [id number] [address] [place] [address] May, [facility] [address] [id number] [address] [place] [address] Apr, [facility] [address] [id number] [address] [place] [address] Apr, Unspecified essential hypert ension 401.9 [facility] [address] [id number] [address] [place] [address] Apr, [facility] [address] [id number] [address] [place] [address] Apr, [facility] [address] [id number] [address] [place] [address] Apr, [facility] [address] [id number] [address] [place] [address] Apr, [facility] [address] [id number] [address] [place] [address] Apr, [facility] [address] [id number] [address] [place] [address] Apr, [facility] [address] [id number] [address] [place] [address] March, Unspecified essential hypert ension 401.9 [facility] [address] [id number] [address] [place] [address], [place] [address] March, [facility] [address] [id number] [address] [place] [address], [place] [address] March, [facility] [address] [id number] [address] [place] [address], [place] [address] Feb, [facility] [address] [id number] [address] [place] [address], [place] [address] Feb, [facility] [address] [id number] [address] [place] [address], [place] [address] Jan, [facility] [address] [id number] [address] [place] [address], [place] [address] Jan, [facility] [address] [id number] [address] [place] [address], [place] [address] Jan, [facility] [address] [id number] [address] [place] [address], [place] [address] Jan, [facility] [address] [id number] [address] [place] [address], [place] [address] Jan, [facility] [address] [id number] [address] [place] [address], [place] [address] Jan, [facility] [address] [id number] [address] [place] [address], [place] [address] Jan, [facility] [address] [id number] [address] [place] [address], [place] [address] 16 Dec, 2014 [facility] [address] [id number] [address] [place] [address], [place] [address] Dec, [facility] [address] [id number] [address] [place] [address], [place] [address] Dec, [facility] [address] [id number] [address] [place] [address], [place] [address] Nov, [facility] [address] [id number] [address] [place] [address], [place] [address] Nov, [facility] [address] [id number] [address] [place] [address], [place] [address] Oct, [facility] [address] [id number] [address] [place] [address], [place] [address] Oct, [facility] [address] [id number] [address] [place] [address], [place] [address] Oct, [facility] [address] [id number] [address] [place] [address], [place] [address] Oct, [facility] [address] [id number] [address] [place] [address], [place] [address] Oct, [facility] [address] [id number] [address] [place] [address], [place] [address] Oct, [facility] [address] [id number] [address] [place] [address], [place] [address] Oct, [facility] [address] [id number] [address] [place] [address], [place] [address] Oct, [facility] [address] [id number] [address] [place] [address], [place] [address] Sep, [facility] [address] [id number] [address] [place] [address], [place] [address] Sep, [facility] [address] [id number] [address] [place] [address], [place] [address] Sep, [facility] [address] [id number] [address] [place] [address] Sep, [facility] [address] [id number] [address] [place] [address], [place] [address] Sep, [facility] [address] [id number] [address] [place] [address], [place] [address] Sep, [facility] [address] [id number] [address] [place] [address], [place] [address] Aug, [facility] [address] [id number] [address] [place] [address] Aug, [facility] [address] [id number] [address] [place] [address], [place] [address] Aug, [facility] [address] [id number] [address] [place] [address], [place] [address] Aug, [facility] [address] [id number] [address] [place] [address], [place] [address] Aug, [facility] [address] [id number] [address] [place] [address], [place] [address] Aug, [facility] [address] [id number] [address] [place] [address], [place] [address] Aug, [facility] [address] [id number] [address] [place] [address], [place] [address] Aug, [facility] [address] [id number] [address] [place] [address], [place] [address] Aug, [facility] [address] [id number] [address] [place] [address], [place] [address] Aug, [facility] [address] [id number] [address] [place] [address], [place] [address] Jul, [facility] [address] [id number] [address] [place] [address], [place] [address] Jul, [facility] [address] [id number] [address] [place] [address], [place] [address] Jul, [facility] [address] [id number] [address] [place] [address], [place] [address] Jul, [facility] [address] [id number] [address] [place] [address], [place] [address] Jul, [facility] [address] [id number] [address] [place] [address], [place] [address] Jul, [facility] [address] [id number] [address] [place] [address], [place] [address] Jun, [facility] [address] [id number] [facility] [place] [address] Jun, [facility] [address] [id number] [facility] [place] [address] Jun, [facility] [address] [id number] [facility] [place] [address] Jun, [facility] [address] [id number] [facility] [place] [address] Jun, [facility] [address] [id number] [facility] [place] [address] Jun, [facility] [address] [id number] [facility] [place] [address] May, [facility] [address] [id number] [address] [place] [address], [place] [address] May, [facility] [address] [id number] [address] [place] [address], [place] [address] May, [facility] [address] [id number] [address] [place] [address], [place] [address] May, [facility] [address] [id number] [address] [place] [address], [place] [address] May, [facility] [address] [id number] [address] [place] [address], [place] [address] Apr, [facility] [address] [id number] [address] [place] [address], [place] [address] Apr, [facility] [address] [id number] [address] [place] [address], [place] [address] Apr, [facility] [address] [id number] [address] [place] [address], [place] [address] Apr, [facility] [address] [id number] [address] [place] [address], [place] [address] March, [facility] [address] [id number] [address] [place] [address], [place] [address] March, [facility] [address] [id number] [address] [place] [address] March, [facility] [address] [id number] [address] [place] [address] March, [facility] [address] [id number] [address] [place] [address], [place] [address] March, [facility] [address] [id number] [address] [place] [address], [place] [address] March, [facility] [address] [id number] [address] [place] [address], [place] [address] Feb, [facility] [address] [id number] [address] [place] [address], [place] [address] Feb, [facility] [address] [id number] [address] [place] [address], [place] [address] Feb, [facility] [address] [id number] [address] [place] [address], [place] [address] Feb, [facility] [address] [id number] [address] [place] [address], [place] [address] Feb, [facility] [address] [id number] [address] [place] [address], [place] [address] Feb, [facility] [address] [id number] [address] [place] [address], [place] [address] Feb, [facility] [address] [id number] [address] [place] [address], [place] [address] Feb, [facility] [address] [id number] [address] [place] [address], [place] [address] Jan, [facility] [address] [id number] [address] [place] [address], [place] [address] Jan, [facility] [address] [id number] [address] [place] [address], [place] [address] Jan, [facility] [address] [id number] [address] [place] [address] 11 Jan, 2014 [facility] [address] [id number] [address] [place] [address], [place] [address] Jan, [facility] [address] [id number] [address] [place] [address], [place] [id number] Jan, [facility] [address] [id number] [address] [place] [address], [place] [address] Dec, [facility] [address] [id number] [address] [place] [address], [place] [id number] Dec, [facility] [address] [id number] [address] [place] [address], [place] [address] Nov, [facility] [address] [id number] [address] [place] [address], [place] [address] Nov, [facility] [address] [id number] [address] [place] [address], [place] [address] Nov, [facility] [address] [id number] [address] [place] [address], [place] [address] Nov, [facility] [address] [id number] [address] [place] [address], [place] [address] Nov, [facility] [address] [id number] [address] [place] [address], [place] [address] Nov, [facility] [address] [id number] [address] [place] [address], [place] [address] Nov, [facility] [address] [id number] [address] [place] [address], [place] [address] Nov, [facility] [address] [id number] [address] [place] [address], [place] [address] Nov, [facility] [address] [id number] [address] [place] [address], [place] [address] Nov, [facility] [address] [id number] [address] [place] [address], [place] [address] Nov, [facility] [address] [id number] [address] [place] [id number] Nov, [facility] [address] [id number] [address] [place] [phone] Nov, [facility] [address] [id number] [address] [place] [phone] Nov, [facility] [address] [id number] [address] [place] [id number] Nov, [facility] [address] [id number] [address] [place] [phone] Oct, [facility] [address] [id number] [address] [place] [phone] Oct, [facility] [address] [id number] [address] [place] [phone] Oct, [facility] [address] [id number] [address] [place] [phone] Oct, [facility] [address] [id number] [address] [place] [phone] Oct, [facility] [address] [id number] [address] [place] [phone] Oct, [facility] [address] [id number] [address] [place] [phone] Oct, [facility] [address] [id number] [address] [place] [phone] Oct, [facility] [address] [id number] [address] [place] [phone] Oct, [facility] [address] [id number] [address] [place] [id number] Aug, [facility] [address] [id number] [address] [place] [phone] Aug, IMMUNIZATIONS No Known Immunizations SOCIAL HISTORY Never Assessed REASON FOR VISIT Controlled Refill Requests PLAN OF CARE VITAL SIGNS MEDICATIONS Medication Instructions Dosage Frequency Start Date End Date Duration S norberto Clonazepam 1 MG Orally Once a day at HS 1 tablet Sep, Active Oxycodone HCl 10 mg Orally every 6 hrs 1 tablet as needed 6h Aug, 28 days Active MS Contin 30 MG Orally every 12 hrs 1 tablet 12h Aug, 28 days Active Clonazepam 0.5 MG Orally Once a day 1 tablet as needed for anxiety 24h Feb, 28 days Active MS Contin 15 mg Orally every 12 hrs 1 tablet 12h Aug, 28 days Active RESULTS No Results PROCEDURES No Known procedures INSTRUCTIONS MEDICATIONS ADMINISTERED No Known Medications MEDICAL (GENERAL) HISTORY Type Description Date Medical History hypertension Medical History asthma Medical History Arthritis Medical History Hypoglycemia Medical History Heart Cath 11/05/2013 Medical History herniated disc--Seen by Dr. Troy Michelle pain specialist in [place], [place] Medical History Chronic low back pain Medical History depression Medical History anxiety Medical History Panic attacks Medical History Vitamin B 12 deficiency r/t gastric bypa ss Medical History Low back injections 11/2012, 06/2013 Medical History Thrombocytosis Surgical History tonsillectomy [facility]. No longer in practice. Band removed 2008 Surgical History hysterectomy-Total r/t fibroid tumors 15 12 Surgical History orthopedic surgery--left low er leg fx, 3 screws placed s/p fall from skating 1980 Surgical History spinal fusion--L4-L5 07/2014 Surgical History carpal tunnel release--bilateral Surgical History Left wrist laceration from broken bowl 1 976 Hospitalization History [facility] for chest pain 2000
--- OUTSIDE RECORDS SUMMARY | 2020-06-19 02:21 | XMS REPORT ---
Author Author Mahsa ROBERTS Organization [facility] Address [address] [place] [address] Care Team Providers Care Lead Case Manager Name Role Phone ARMANDO ASHVIN Unavailable PROBLEMS Type Condition ICD9-CM Code XVW56-CP Code Onset Dates Condition S tatus SNOMED Code Problem Chronic prescription opiate use Z79.899 Active 203474184 Problem B12 deficiency E53.8 Active 15562 4004 Problem Bilateral low back pain, with sciatica presence unspecifie d M54.5 Active 864518575 Problem CKD (chronic kidney disease) stage 3, GFR 30-59 ml/min N18.3 Active 672326705 Problem Drug induced constipation K59.03 Acti ve [id number] Problem GERD (gastroesophageal reflux disease) K21.9 Active 837525399 Problem Allergic rhinitis J30.9 Active 61 091180 Problem Chronic obstructive pulmonary disease, unspecified COPD ty pe J44.9 Active 22068881 Problem Fibromyalgia M79.7 Active 1487461 7 Problem Chronic pain syndrome G89.4 Active 820940960 Problem Primary insomnia F51.01 Active 193 098717 Problem Other constipation K59.09 Active 1 [id number] Problem Atherosclerosis of [place] co ronary artery of [place] heart without angina pectoris I25.10 Active 8446280859078 Problem Major depressive disorder, recurrent episode, un specified severity F33.9 Active 08289953 Problem Anxiety F41.9 Active 06582995 Problem Hyperlipidemia, unspecified hyperlipidemia E78.5 Active 62854995 Problem Essential hypertension I10 Active 47097811 Problem Chronic prescription benzodiazepine use Z79.899 Active 379281317 ALLERGIES No Information ENCOUNTERS Encounter Location Date Diagnosis [facility] [address] [facility] [id number] [address] [place] [address] Apr, Anxiety F41.9 [facility] [address] [facility] [id number] [address] [place] [address] Apr, Chronic prescription opiate use Z79.899 ; Chronic pain syndrome G89.4 ; Essential hypertension I10 ; Allergic rhinitis J30.9 and CKD (chronic kidney disease) stage 3, GFR 30-59 ml/min N18.3 [place] [address] [place] [id number] [address] [place] [address] Apr, [place] [address] [place] [id number] [address] [place] [address] March, Anxiety F41.9 and Chronic pa in syndrome G89.4 [place] [address] [place] [id number] [address] [place] [address] March, CKD (chronic kidney disease) stage 3, GFR 30-59 ml/min N18.3 ; B12 deficiency E53.8 and Hyperlipidemia, unspecified hyperlipidemia E78.5 [place] [address] [place] [id number] [address] [place] [address] March, Anxiety F41.9 and Chronic pa in syndrome G89.4 [place] [address] [place] [id number] [address] [place] [address] Feb, Anxiety F41.9 and Chronic pa in syndrome G89.4 [place] [address] [place] [id number] [address] [place] [address] Jan, B12 deficiency E53.8 [place] [address] [place] [id number] [address] [place] [address] Jan, [place] [address] [address] Jan, Anxiety F41.9 ; Chronic pain syndrome G89.4 and Essential hypertension I10 [place] [address] [address] Jan, CKD (chronic kidney disease) stage 3, [...] bursitis of right shoulder joint M75.51 [facility] [address] [id number] [address] [place] [address] 28 Dec, 2017 Essential hypertension I10 [facility] [address] [id number] [address] [place] [address] 15 Dec, 2017 Chronic pain syndrome G89.4 [place] [address] [facility] [id number] [address] [place] [address] Dec, Chronic pain syndrome G89.4 [place] [address] [facility] [id number] [address] [place] [address] Nov, [place] [address] [facility] [id number] [address] [place] [address] Nov, Chronic pain syndrome G89.4 and Anxiety F41.9 [place] [id number] [facility] [id number] [address] [place] [phone] Oct, Chronic pain syndrome G89.4 ; Other constipation K59.09 and Chronic prescription opiate use Z79.899 [place] [id number] [facility] [id number] [address] [place] [address] Oct, Chronic pain syndrome G89.4 and Anxiety F41.9 [facility] [address] [facility] [id number] [address] [place] [address] Sep, Essential hypertension I10 [facility] [address] [id number] [address] [place] [address] 16 Sep, 2017 Chronic pain syndrome G89.4 and Anxiety F41.9 [facility] [address] [facility] [id number] [address] [place] [address] Aug, Chronic pain syndrome G89.4 and Anxiety F41.9 [place] [id number] [facility] [id number] [address] [place] [address] Jul, Essential hypertension I10 [place] [address] [place] [id number] [address] [place] [address] Jul, Chronic obstructive pulmonar y disease, unspecified COPD type J44.9 [place] [address] [place] [id number] [address] [place] [address] Jul, Chronic pain syndrome G89.4 and Anxiety F41.9 [place] [address] [place] [id number] [place] [address] 13 Jul, 2017 Chronic pain syndrome G89.4 ; Essential hypertension I10 ; Fibromyalgia M79.7 ; CKD (chronic kidney disease) stage 3, GFR 30-59 ml/min N18.3 ; Subacromial bursitis, right M75.51 and Goals of care, co unseling/discussion Z71.89 [place] [address] [address] Jun, Chronic pain syndrome G89.4 and Anxiety F41.9 [place] [address] [place] [id number] [address] [place] [address] May, Chronic pain syndrome G89.4 and Anxiety F41.9 [place] [address] [place] [id number] [address] [place] [address] Apr, Chronic pain syndrome G89.4 and Anxiety F41.9 [place] [address] [place] [id number] [address] [place] [address] 14 Apr, 2017 Drug induced constipation K5 9.03 ; Chronic pain syndrome G89.4 and CKD (chronic kidney disease) stage 3, GFR 30-59 ml/min N18.3 [place] [address] [place] [id number] [address] [place] [address] 02 Apr, 2017 Chronic pain syndrome G89.4 and Anxiety F41.9 [place] [address] [place] [id number] [address] [place] [address] March, Chronic pain syndrome G89.4 and Anxiety F41.9 [facility] [address] [id number] [address] [place] [address] March, Decreased GFR R94.4 [facility] [address] [id number] [address] [place] [address] Feb, [facility] [address] [facility] [id number] [address] [place] [address] Feb, Chronic pain syndrome G89.4 and Anxiety F41.9 [facility] [address] [id number] [address] [place] [address] Jan, Decreased GFR R94.4 [facility] [address] [facility] [id number] [address] [place] [address] Jan, Decreased GFR R94.4 [facility] [address] [facility] [id number] [address] [place] [address] Jan, Allergic rhinitis J30.9 ; Es sential hypertension I10 ; Major depressive disorder, recurrent episode, unspecified severity F33.9 and Primary insomnia F51.01 [facility] [address] [facility] [id number] [address] [place] [address] Jan, Acute right-sided thoracic b ack pain M54.6 ; Subacromial bursitis of right shoulder joint M75.51 ; Chronic pain syndrome G89.4 and Anxiety F41.9 [facility] [address] [facility] [id number] [address] [place] [address] Jan, Decreased GFR R94.4 [facility] [address] [facility] [id number] [address] [place] [address] Dec, Decreased GFR R94.4 [facility] [address] [facility] [id number] [address] [place] [address] Dec, Decreased GFR R94.4 [facility] [address] [facility] [id number] [address] [place] [address] Dec, Decreased GFR R94.4 [facility] [address] [address] 13 Dec, 2016 Decreased GFR R94.4 [place] [address] [address] 09 Dec, 2016 Anxiety F41.9 and Bilateral low back pain, with sciatica presence unspecified M54.5 [place] [address] [address] Dec, Thrombocytosis D47.3 ; Hyper lipidemia, unspecified hyperlipidemia E78.5 ; Need for hepatitis C screening test Z11.59 and B12 deficiency E53.8 [place] [address] [address] Nov, Need for hepatitis C screeni ng test Z11.59 [place] [address] [address] Nov, Anxiety F41.9 and Bilateral low back pain, with sciatica presence unspecified M54.5 [place] [address] [address] Oct, Bilateral low back pain, wit h sciatica presence unspecified M54.5 ; Chronic prescription opiate use Z79.899 ; Anxiety F41.9 ; Essential hypertension I10 ; Hyperlipidemia, unspecified hyperlipidemia E78.5 ; Health care maintenance Z00.00 and Thrombocytosis D47.3 [place] [address] [address] Sep, [place] [address] [address] Sep, [place] [address] [address] Aug, [place] [address] [address] Jul, B12 deficiency E53.8 [place] [address] [address] Jul, [facility] [address] [facility] [id number] [address] [place] [address] Jul, Essential hypertension I10 ; Chronic pain syndrome G89.4 ; Anxiety F41.9 ; Screening for breast cancer Z12.39 ; Atherosclerosis of [place] coronary artery of [place] heart without angina pectoris I25.10 ; Major depressive disorder, recurrent episode, unspecified severity F33.9 ; Primary insomnia F51.01 and Allergic rhinitis J30.9 [facility] [address] [facility] [id number] [address] [place] [address] Jun, [facility] [address] [facility] [id number] [address] [place] [address] Jun, Leg wound, right, initial en counter S81.801A and Encounter for immunization Z23 [place] [address] [facility] [id number] [address] [place] [address] Jun, Open wound of right ear, uns pecified open wound type, initial encounter S01.301A [facility] [address] [facility] [id number] [address] [place] [address] May, B12 deficiency E53.8 [place] [address] [place] [id number] [address] [place] [address] May, [place] [address] [place] [id number] [address] [place] [address] May, [place] [address] [place] [id number] [address] [place] [address] May, Chronic pain syndrome G89.4 ; Chronic prescription opiate use Z79.899 ; Allergic rhinitis J30.9 ; Essential hypertension I10 and Non-healing skin lesion L98.9 [place] [address] [facility] [id number] [address] [place] [address] Apr, [place] [address] [place] [id number] [address] [place] [address] March, [place] [address] [place] [id number] [address] [place] [address] Feb, [facility] [address] [facility] [id number] [address] [place] [address] Feb, [facility] [address] [address] Feb, Chronic pain syndrome G89.4 ; Anxiety F41.9 ; B12 deficiency E53.8 ; Allergic rhinitis J30.9 ; Fibromyalgia M79.7 ; Actinic keratosis L57.0 ; Skin rash R21 ; Open wound of right ear, unspecified open wound type, initial encounter S01.301A ; Subacromial bursitis, right M75.51 ; GERD (gastroesophageal reflux disease) K21.9 and Chronic obstructive pulmonary disease, unspecified COPD type J44.9 [facility] [address] [place] [id number] [address] [place] [address] Jan, [facility] [address] [address] Jan, Essential hypertension I10 [facility] [address] [address] Jan, [facility] [address] [address] Jan, [facility] [address] [place] [id number] [address] [place] [address] Jan, [facility] [address] [place] [id number] [address] [place] [address] Dec, [facility] [address] [place] [id number] [address] [place] [address] Dec, Essential hypertension I10 [facility] [address] [facility] [id number] [address] [place] [address] Dec, [facility] [address] [place] [id number] [address] [place] [address] Dec, B12 deficiency E53.8 and Ess ential hypertension I10 [facility] [address] [facility] [id number] [address] [place] [address] Dec, [facility] [address] [facility] [id number] [address] [place] [address] Nov, Right shoulder pain M25.511 [facility] [address] [place] [id number] [address] [place] [address] Nov, Right shoulder pain M25.511 [facility] [address] [place] [id number] [address] [place] [address] Nov, Essential hypertension I10 a nd B12 deficiency E53.8 [facility] [address] [address] Nov, Major depressive disorder, r ecurrent episode, unspecified severity F33.9 ; Anxiety F41.9 ; Chronic pain syndrome G89.4 ; Essential hypertension I10 ; Hyperlipidemia, unspecified hyperlipidemia E78.5 ; Chronic prescription opiate use Z79.899 ; Allergic rhinitis J30.9 ; B12 deficiency E53.8 and Right shoulder pain M25.511 [facility] [address] [place] [id number] [address] [place] [address] Oct, [facility] [address] [place] [id number] [address] [place] [address] Oct, [facility] [address] [place] [id number] [address] [place] [address] Sep, [facility] [address] [place] [id number] [address] [place] [address] Sep, [facility] [address] [place] [id number] [address] [place] [address] Aug, [facility] [address] [place] [id number] [address] [place] [address] Aug, [facility] [address] [place] [id number] [address] [place] [address] Aug, [facility] [address] [place] [id number] [address] [place] [address] Aug, Other constipation K59.09 ; Hyperlipidemia, unspecified hyperlipidemia E78.5 ; Essential hypertension I10 ; Primary insomnia F51.01 ; Anxiety F41.9 ; Chronic pain syndrome G89.4 ; Right shoulder pain M25.511 and Acute cystitis without hematuria N30.00 [facility] [address] [id number] [address] [place] [address] 16 Jul, 2015 [facility] [address] [id number] [address] [place] [address] Jul, [facility] [address] [id number] [address] [place] [address] Jun, [facility] [address] [facility] [id number] [address] [place] [address] Jun, [facility] [address] [place] [id number] [address] [place] [address] Jun, [facility] [address] [facility] [id number] [address] [place] [address] May, [facility] [address] [facility] [id number] [address] [place] [address] May, Other chronic pain 338.29 ; Hypertension 401.9 and Constipation due to opioid therapy 564.09 [facility] [address] [facility] [id number] [address] [place] [address] May, [facility] [address] [facility] [id number] [address] [place] [address] May, [facility] [address] [id number] [address] [place] [address] Apr, [facility] [address] [facility] [id number] [address] [place] [address] Apr, Unspecified essential hypert ension 401.9 [facility] [address] [facility] [id number] [address] [place] [phone] Apr, [facility] [address] [id number] [address] [place] [address], [place] [address] 16 Apr, 2015 [facility] [address] [id number] [address] [place] [address], [place] [address] Apr, [facility] [address] [id number] [address] [place] [address], [place] [address] 16 Apr, 2015 [facility] [address] [id number] [address] [place] [address], [place] [address] 15 Apr, 2015 [facility] [address] [id number] [address] [place] [address], [place] [address] Apr, [facility] [address] [id number] [address] [place] [address], [place] [address] March, Unspecified essential hypert ension 401.9 [facility] [address] [id number] [address] [place] [address], [place] [address] March, [facility] [address] [id number] [address] [place] [address], [place] [address] March, [facility] [address] [id number] [address] [place] [address], [place] [address] 14 Feb, 2015 [facility] [address] [id number] [address] [place] [address], [place] [address] Feb, [facility] [address] [id number] [address] [place] [address], [place] [address] 23 Jan, 2015 [facility] [address] [id number] [address] [place] [address] 23 Jan, 2015 [facility] [address] [id number] [address] [place] [address], [place] [address] 17 Jan, 2015 [facility] [address] [id number] [address] [place] [address], [place] [address] 17 Jan, 2015 [facility] [address] [id number] [address] [place] [address], [place] [address] 13 Jan, 2015 [facility] [address] [id number] [address] [place] [address], [place] [address] Jan, [facility] [address] [id number] [address] [place] [address], [place] [address] Jan, [facility] [address] [id number] [address] [place] [address], [place] [address] 16 Dec, 2014 [facility] [address] [id number] [address] [place] [address], [place] [address] 16 Dec, 2014 [facility] [address] [id number] [address] [place] [address], [place] [address] Dec, 2014 [facility] [address] [id number] [address] [place] [address], [place] [address] Nov, [facility] [address] [id number] [address] [place] [address], [place] [address] Nov, [facility] [address] [id number] [address] [place] [address], [place] [address] Oct, [facility] [address] [id number] [address] [place] [address], [place] [address] Oct, [facility] [address] [id number] [address] [place] [address], [place] [address] Oct, [facility] [address] [id number] [address] [place] [address], [place] [address] Oct, [facility] [address] [id number] [address] [place] [address], [place] [address] Oct, [facility] [address] [id number] [address] [place] [address], [place] [address] Oct, [facility] [address] [id number] [address] [place] [address], [place] [address] Oct, [facility] [address] [id number] [address] [place] [address], [place] [address] Oct, [facility] [address] [id number] [address] [place] [address], [place] [address] Sep, [facility] [address] [id number] [address] [place] [address], [place] [address] Sep, [facility] [address] [id number] [address] [place] [address], [place] [address] Sep, [facility] [address] [id number] [address] [place] [address], [place] [address] Sep, [facility] [address] [id number] [address] [place] [address], [place] [address] Sep, [facility] [address] [id number] [address] [place] [address], [place] [address] Sep, [facility] [address] [id number] [address] [place] [address], [place] [address] Aug, [facility] [address] [id number] [address] [place] [address], [place] [address] Aug, [facility] [address] [id number] [address] [place] [address], [place] [address] Aug, [facility] [address] [id number] [address] [place] [address], [place] [address] Aug, [facility] [address] [id number] [address] [place] [address], [place] [address] Aug, [facility] [address] [id number] [address] [place] [address], [place] [address] Aug, [facility] [address] [id number] [address] [place] [address], [place] [address] Aug, [facility] [address] [id number] [address] [place] [address], [place] [address] Aug, [facility] [address] [id number] [address] [place] [address], [place] [address] Aug, [facility] [address] [id number] [address] [place] [address], [place] [address] Aug, [facility] [address] [id number] [address] [place] [address], [place] [address] Jul, [facility] [address] [id number] [address] [place] [address] Jul, [facility] [address] [id number] [facility] [place] [address] Jul, [facility] [address] [id number] [facility] [place] [address] Jul, [facility] [address] [id number] [address] [place] [address], [place] [address] Jul, [facility] [address] [id number] [facility] [place] [address] Jul, [facility] [address] [id number] [address] [place] [address], [place] [address] Jun, [facility] [address] [id number] [address] [place] [address], [place] [address] Jun, [facility] [address] [id number] [address] [place] [address], [place] [address] Jun, [facility] [address] [id number] [address] [place] [address], [place] [address] Jun, [facility] [address] [id number] [address] [place] [address], [place] [address] Jun, [facility] [address] [id number] [address] [place] [address], [place] [address] Jun, [facility] [address] [id number] [address] [place] [address], [place] [address] May, [facility] [address] [id number] [address] [place] [address], [place] [address] May, [facility] [address] [id number] [address] [place] [address], [place] [address] May, [facility] [address] [id number] [address] [place] [address], [place] [address] May, [facility] [address] [id number] [address] [place] [address], [place] [address] May, [facility] [address] [id number] [address] [place] [address], [place] [address] Apr, [facility] [address] [id number] [address] [place] [address], [place] [address] Apr, [facility] [address] [id number] [address] [place] [address], [place] [address] Apr, [facility] [address] [id number] [address] [place] [address], [place] [address] Apr, [facility] [address] [id number] [address] [place] [address], [place] [address] March, [facility] [address] [id number] [address] [place] [address], [place] [address] March, [facility] [address] [id number] [address] [place] [address], [place] [address] March, [facility] [address] [id number] [address] [place] [address], [place] [address] March, [facility] [address] [id number] [address] [place] [address], [place] [address] March, [facility] [address] [id number] [address] [place] [address], [place] [address] March, [facility] [address] [id number] [address] [place] [address], [place] [address] Feb, [facility] [address] [id number] [address] [place] [address], [place] [address] Feb, [facility] [address] [id number] [address] [place] [address], [place] [address] Feb, [facility] [address] [id number] [address] [place] [address], [place] [address] Feb, [facility] [address] [id number] [address] [place] [address], [place] [address] Feb, [facility] [address] [id number] [facility] [place] [address] Feb, [facility] [address] [id number] [address] [place] [address], [place] [address] Feb, [facility] [address] [id number] [facility] [place] [address] Feb, [facility] [address] [id number] [address] [place] [address], [place] [address] Jan, [facility] [address] [id number] [address] [place] [address], [place] [address] Jan, [facility] [address] [id number] [address] [place] [address], [place] [address] Jan, [facility] [address] [id number] [address] [place] [address], [place] [address] Jan, [facility] [address] [id number] [address] [place] [address], [place] [address] Jan, [facility] [address] [id number] [address] [place] [address], [place] [address] Jan, [facility] [address] [id number] [address] [place] [address], [place] [address] Dec, [facility] [address] [id number] [address] [place] [address], [place] [address] Dec, [facility] [address] [id number] [address] [place] [address], [place] [address] Nov, [facility] [address] [id number] [address] [place] [address], [place] [address] Nov, [facility] [address] [id number] [address] [place] [address], [place] [address] Nov, [facility] [address] [id number] [address] [place] [address], [place] [address] Nov, [facility] [address] [id number] [address] [place] [address], [place] [address] Nov, [facility] [address] [id number] [address] [place] [address], [place] [address] Nov, [facility] [address] [id number] [address] [place] [address], [place] [address] Nov, [facility] [address] [id number] [address] [place] [address], [place] [address] Nov, [facility] [address] [id number] [address] [place] [address], [place] [address] Nov, [facility] [address] [id number] [address] [place] [address], [place] [address] Nov, [facility] [address] [id number] [address] [place] [address], [place] [address] Nov, [facility] [address] [id number] [address] [place] [address], [place] [address] Nov, [facility] [address] [id number] [address] [place] [address], [place] [address] Nov, [facility] [address] [id number] [address] [place] [address], [place] [address] Nov, [facility] [address] [id number] [address] [place] [address], [place] [address] Nov, [facility] [address] [id number] [address] [place] [address], [place] [address] Oct, [facility] [address] [id number] [address] [place] [address], [place] [address] Oct, [facility] [address] [id number] [address] [place] [address], [place] [address] Oct, [facility] [address] [id number] [address] [place] [address], [place] [address] Oct, [facility] [address] [id number] [address] [place] [address], [place] [address] Oct, [facility] [address] [id number] [address] [place] [address] Oct, [facility] [address] [facility] [id number] [address] [place] [address] Oct, [facility] [address] [facility] [id number] [address] [place] [address] Oct, [facility] [address] [facility] [id number] [address] [place] [address] Oct, [facility] [address] [facility] [id number] [address] [place] [address] Aug, [facility] [address] [facility] [id number] [address] [place] [address] Aug, IMMUNIZATIONS No Known Immunizations SOCIAL HISTORY Never Assessed REASON FOR VISIT Controlled Medication Refill PLAN OF CARE VITAL SIGNS MEDICATIONS Medication Instructions Dosage Frequency Start Date End Date Duration S tatus Clonazepam 0.5 MG Orally twice a day 1 tablet as needed for anxiety 12h Feb, 28 days Active Blood Pressure Monitor Automat - as directed Jan, 201 8 Active MS Contin 15 mg Orally every 12 hrs 1 tablet 12h Jan, 28 days Active Clonazepam 1 MG Orally Once a day 1 tablet at bedtime 24h 25 Sep 28 days Active Oxycodone HCl 10 [...] by Dr. Troy Michelle pain specialist in [place], [place] Medical History Chronic low back pain [...]
--- OUTSIDE RECORDS SUMMARY | 2020-06-19 02:21 | XMS REPORT ---
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 Name Role Phone ARMANDO ASHVIN Unavailable PROBLEMS Type Condition ICD9-CM Code [id number] Code Onset Dates Condition S tatus SNOMED Code Problem Chronic prescription opiate use Z79.899 Active 136501185 Problem B12 deficiency E53.8 Active 36614 4004 Problem Bilateral low back pain, with sciatica presence unspecifie d M54.5 Active 276079749 Problem CKD (chronic kidney disease) stage 3, GFR 30-59 ml/min N18.3 Active 985259780 Problem Drug induced constipation K59.03 Acti ve [id number] Problem GERD (gastroesophageal reflux disease) K21.9 Active 557218618 Problem Allergic rhinitis J30.9 Active 61 004390 Problem Chronic obstructive pulmonary disease, unspecified COPD ty pe J44.9 Active 06124076 Problem Fibromyalgia M79.7 Active 7577083 7 Problem Chronic pain syndrome G89.4 Active 224967121 Problem Primary insomnia F51.01 Active 193 892559 Problem Other constipation K59.09 Active 1 [id number] Problem Atherosclerosis of [place] co ronary artery of [place] heart without angina pectoris I25.10 Active 9313252418014 Problem Major depressive disorder, recurrent episode, un specified severity F33.9 Active 13173004 Problem Anxiety F41.9 Active 81477372 Problem Hyperlipidemia, unspecified hyperlipidemia E78.5 Active 41308452 Problem Essential hypertension I10 Active 43813436 Problem Chronic prescription benzodiazepine use Z79.899 Active 631656683 ALLERGIES Substance Reaction Event Type Date Status Lyrica throat swelling Drug Allergy Jan, Active Flagyl throat swelling Drug Allergy Jan, Active Lisinopril 20 Mg Tablet Headache Non Drug Allergy Jan, Active ENCOUNTERS Encounter Location Date Diagnosis [facility] [address] [facility] [id number] [address] [address] Apr, Anxiety F41.9 [place] [address] [address] [facility] [id number] [address] [place] [address] Apr, Chronic prescription opiate use Z79.899 ; Chronic pain syndrome G89.4 ; Essential hypertension I10 ; Allergic rhinitis J30.9 and CKD (chronic kidney disease) stage 3, GFR 30-59 ml/min N18.3 [place] [address] [place] [id number] [address] [place] [address] Apr, [place] [address] [place] [id number] [address] [place] [address] March, Anxiety F41.9 and Chronic pa in syndrome G89.4 [place] [address] [place] [id number] [address] [place] [address] March, CKD (chronic kidney disease) stage 3, GFR 30-59 ml/min N18.3 ; B12 deficiency E53.8 and Hyperlipidemia, unspecified hyperlipidemia E78.5 [place] [address] [place] [id number] [address] [place] [address] March, Anxiety F41.9 and Chronic pa in syndrome G89.4 [place] [address] [address] [facility] [id number] [address] [place] [address] Feb, Anxiety F41.9 and Chronic pa in syndrome G89.4 [place] [address] [address] [facility] [facility] [id number] [address] [place] [address] Jan, B12 deficiency E53.8 [place] [address] [address] [facility] [id number] [address] [place] [address] Jan, [place] [address] [place] [id number] [address] [place] [address] Jan, Anxiety F41.9 ; Chronic pain syndrome G89.4 and Essential hypertension I10 [place] [address] [place] [id number] [address] [place] [address] Jan, CKD (chronic kidney disease) stage 3, [...] Subacromial bursitis of right shoulder joint M75.51 [place] [address] [place] [id number] [address] [place] [address] Dec, Essential hypertension I10 [place] [address] [address] Dec, Chronic pain syndrome G89.4 [place] [address] [place] [id number] [place] [address] Dec, Chronic pain syndrome G89.4 [place] [address] [address] Nov, [place] [address] [address] Nov, Chronic pain syndrome G89.4 and Anxiety F41.9 [place] [address] [address] Oct, Chronic pain syndrome G89.4 ; Other constipation K59.09 and Chronic prescription opiate use Z79.899 [place] [address] [place] [id number] [address] [place] [address] Oct, Chronic pain syndrome G89.4 and Anxiety F41.9 [place] [address] [place] [id number] [address] [place] [address] Sep, Essential hypertension I10 [place] [address] [place] [id number] [place] [address] Sep, Chronic pain syndrome G89.4 and Anxiety F41.9 [place] [address] [address] Aug, Chronic pain syndrome G89.4 and Anxiety F41.9 [place] [address] [place] [id number] [address] [place] [address] Jul, Essential hypertension I10 [facility] [address] [facility] [facility] [id number] [address] [place] [address] 22 Jul, 2017 Chronic obstructive pulmonar y disease, unspecified COPD type J44.9 [place] [address] [place] [id number] [address] [place] [address] Jul, Chronic pain syndrome G89.4 and Anxiety F41.9 [place] [address] [place] [id number] [place] [address] 13 Jul, 2017 Chronic pain syndrome G89.4 ; Essential hypertension I10 ; Fibromyalgia M79.7 ; CKD (chronic kidney disease) stage 3, GFR 30-59 ml/min N18.3 ; Subacromial bursitis, right M75.51 and Goals of care, co unseling/discussion Z71.89 [place] [address] [place] [id number] [address] [place] [address] Jun, Chronic pain syndrome G89.4 and Anxiety F41.9 [place] [address] [place] [id number] [address] [place] [address] May, Chronic pain syndrome G89.4 and Anxiety F41.9 [place] [address] [place] [id number] [address] [place] [address] Apr, Chronic pain syndrome G89.4 and Anxiety F41.9 [place] [address] [place] [id number] [address] [place] [address] 14 Apr, 2017 Drug induced constipation K5 9.03 ; Chronic pain syndrome G89.4 and CKD (chronic kidney disease) stage 3, GFR 30-59 ml/min N18.3 [facility] [address] [place] [id number] [address] [place] [address] 02 Apr, 2017 Chronic pain syndrome G89.4 and Anxiety F41.9 [facility] [address] [facility] [address] [facility] [id number] [address] [place] [address] March, Chronic pain syndrome G89.4 and Anxiety F41.9 [facility] [address] [facility] [address] [facility] [id number] [address] [place] [address] March, Decreased GFR R94.4 [facility] [address] [facility] [address] [facility] [id number] [address] [place] [address] Feb, [facility] [address] [facility] [address] [facility] [id number] [address] [place] [address] Feb, Chronic pain syndrome G89.4 and Anxiety F41.9 [place] [address] [place] [id number] [address] [place] [address] Jan, Decreased GFR R94.4 [place] [address] [place] [id number] [address] [place] [address] Jan, Decreased GFR R94.4 [place] [address] [place] [id number] [place] [address] Jan, Allergic rhinitis J30.9 ; Es sential hypertension I10 ; Major depressive disorder, recurrent episode, unspecified severity F33.9 and Primary insomnia F51.01 [place] [address] [place] [id number] [place] [address] Jan, Acute right-sided thoracic b ack pain M54.6 ; Subacromial bursitis of right shoulder joint M75.51 ; Chronic pain syndrome G89.4 and Anxiety F41.9 [facility] [address] [address] [facility] [id number] [address] [place] [address] Jan, Decreased GFR R94.4 [place] [address] [place] [id number] [place] [address] Dec, Decreased GFR R94.4 [place] [address] [facility] [id number] [address] [place] [address] Dec, Decreased GFR R94.4 [place] [address] [place] [id number] [address] [place] [address] Dec, Decreased GFR R94.4 [place] [address] [place] [id number] [place] [address] Dec, Decreased GFR R94.4 [place] [address] [place] [id number] [place] [address] Dec, Anxiety F41.9 and Bilateral low back pain, with sciatica presence unspecified M54.5 [place] [address] [address] Dec, Need for hepatitis C screeni ng test Z11.59 ; B12 deficiency E53.8 ; Hyperlipidemia, unspecified hyperlipidemia E78.5 and Thrombocytosis D47.3 [place] [address] [address] Nov, Need for hepatitis C screeni ng test Z11.59 [place] [address] [address] Nov, Anxiety F41.9 and Bilateral low back pain, with sciatica presence unspecified M54.5 [place] [address] [address] Oct, Bilateral low back pain, wit h sciatica presence unspecified M54.5 ; Chronic prescription opiate use Z79.899 ; Anxiety F41.9 ; Essential hypertension I10 ; Hyperlipidemia, unspecified hyperlipidemia E78.5 ; Health care maintenance Z00.00 and Thrombocytosis D47.3 [place] [address] [place] [id number] [address] [place] [address] Sep, [place] [address] [address] Sep, [place] [address] [place] [id number] [place] [address] Aug, [place] [address] [address] Jul, B12 deficiency E53.8 [facility] [address] [address] [facility] [id number] [address] [place] [address] Jul, [place] [address] [facility] [id number] [address] [place] [address] Jul, Essential hypertension I10 ; Chronic pain syndrome G89.4 ; Anxiety F41.9 ; Screening for breast cancer Z12.39 ; Atherosclerosis of [place] coronary artery of [place] heart without angina pectoris I25.10 ; Major depressive disorder, recurrent episode, unspecified severity F33.9 ; Primary insomnia F51.01 and Allergic rhinitis J30.9 [place] [address] [facility] [address] [facility] [id number] [address] [place] [address] Jun, [facility] [address] [address] [facility] [id number] [address] [place] [address] Jun, Leg wound, right, initial en counter S81.801A and Encounter for immunization Z23 [place] [address] [place] [id number] [address] [place] [address] Jun, Open wound of right ear, uns pecified open wound type, initial encounter S01.301A [place] [address] [facility] [facility] [id number] [address] [place] [address] May, B12 deficiency E53.8 [place] [address] [facility] [facility] [id number] [address] [place] [address] May, [place] [address] [facility] [facility] [id number] [address] [place] [address] May, [facility] [address] [facility] [address] [facility] [id number] [address] [place] [address] May, Chronic pain syndrome G89.4 ; Chronic prescription opiate use Z79.899 ; Allergic rhinitis J30.9 ; Essential hypertension I10 and Non-healing skin lesion L98.9 [place] [address] [place] [id number] [place] [address] Apr, [place] [address] [place] [id number] [address] [place] [address] March, [facility] [address] [address] Feb, [facility] [address] [place] [id number] [address] [place] [address] Feb, [facility] [address] [address] Feb, Chronic pain syndrome G89.4 ; Anxiety F41.9 ; B12 deficiency E53.8 ; Allergic rhinitis J30.9 ; Fibromyalgia M79.7 ; Actinic keratosis L57.0 ; Skin rash R21 ; Open wound of right ear, unspecified open wound type, initial encounter S01.301A ; Subacromial bursitis, right M75.51 ; GERD (gastroesophageal reflux disease) K21.9 and Chronic obstructive pulmonary disease, unspecified COPD type J44.9 [facility] [address] [place] [address] 30 Jan, 2016 [facility] [address] [place] [id number] [address] [place] [address] Jan, Essential hypertension I10 [facility] [address] [place] [id number] [address] [place] [address] Jan, [facility] [address] [place] [id number] [address] [place] [address] Jan, [facility] [address] [place] [address] Jan, [facility] [address] [place] [id number] [address] [place] [address] Dec, [facility] [address] [place] [id number] [place] [address] Dec, Essential hypertension I10 [facility] [address] [place] [address] Dec, [facility] [address] [place] [id number] [address] [place] [address] 12 Dec, 2015 B12 deficiency E53.8 and Ess ential hypertension I10 [facility] [address] [place] [id number] [place] [address] Dec, [facility] [address] [address] Nov, Right shoulder pain M25.511 [facility] [address] [address] Nov, Right shoulder pain M25.511 [facility] [address] [address] Nov, Essential hypertension I10 a nd B12 deficiency E53.8 [facility] [address] [address] Nov, Major depressive disorder, r ecurrent episode, unspecified severity F33.9 ; Anxiety F41.9 ; Chronic pain syndrome G89.4 ; Essential hypertension I10 ; Hyperlipidemia, unspecified hyperlipidemia E78.5 ; Chronic prescription opiate use Z79.899 ; Allergic rhinitis J30.9 ; B12 deficiency E53.8 and Right shoulder pain M25.511 [facility] [address] [place] [id number] [address] [place] [address] Oct, [facility] [address] [address] Oct, [facility] [address] [address] Sep, [facility] [address] [address] Sep, [facility] [address] [address] Aug, [facility] [address] [address] Aug, [facility] [address] [id number] [address] [place] [address] Aug, [facility] [address] [id number] [address] [place] [address] Aug, Other constipation K59.09 ; Hyperlipidemia, unspecified hyperlipidemia E78.5 ; Essential hypertension I10 ; Primary insomnia F51.01 ; Anxiety F41.9 ; Chronic pain syndrome G89.4 ; Right shoulder pain M25.511 and Acute cystitis without hematuria N30.00 [facility] [address] [id number] [address] [place] [address] 16 Jul, 2015 [facility] [address] [id number] [address] [place] [address] Jul, [facility] [address] [facility] [address] [facility] [id number] [address] [place] [address] Jun, [facility] [address] [id number] [address] [place] [address] Jun, [facility] [address] [id number] [address] [place] [address] Jun, [facility] [address] [id number] [address] [place] [address] May, [facility] [address] [facility] [address] [facility] [id number] [address] [place] [address] May, Other chronic pain 338.29 ; Hypertension 401.9 and Constipation due to opioid therapy 564.09 [facility] [address] [id number] [address] [place] [address] May, [facility] [address] [id number] [address] [place] [address] May, [facility] [address] [facility] [address] [facility] [id number] [address] [place] [address] Apr, [facility] [address] [facility] [address] [facility] [id number] [address] [place] [address] Apr, Unspecified essential hypert ension 401.9 [facility] [address] [id number] [address] [place] [address], [place] [address] 16 Apr, 2015 [facility] [address] [id number] [address] [place] [address] 16 Apr, 2015 [facility] [address] [id number] [address] [place] [address] 16 Apr, 2015 [facility] [address] [id number] [address] [place] [address] Apr, [facility] [address] [id number] [address] [place] [address] Apr, [facility] [address] [id number] [address] [place] [address] Apr, [facility] [address] [id number] [address] [place] [address] March, Unspecified essential hypert ension 401.9 [facility] [address] [id number] [address] [place] [address] March, [facility] [address] [id number] [address] [place] [address] March, [facility] [address] [id number] [address] [place] [address] Feb, [facility] [address] [id number] [address] [place] [address] Feb, [facility] [address] [id number] [address] [place] [address] Jan, [facility] [address] [id number] [address] [place] [address] Jan, [facility] [address] [id number] [address] [place] [address] 17 Jan, 2015 [facility] [address] [id number] [address] [place] [address] 17 Jan, 2015 [facility] [address] [id number] [address] [place] [address], [place] [address] 13 Jan, 2014 [facility] [address] [id number] [address] [place] [address], [place] [address] 02 Jan, 2014 [facility] [address] [id number] [address] [place] [address], [place] [address] 02 Jan, 2014 [facility] [address] [id number] [address] [place] [address], [place] [address] 16 Dec, 2014 [facility] [address] [id number] [address] [place] [address], [place] [address] 16 Dec, 2014 [facility] [address] [id number] [address] [place] [address], [place] [address] 13 Dec, 2014 [facility] [address] [id number] [address] [place] [address], [place] [address] 16 Nov, 2014 [facility] [address] [id number] [address] [place] [address], [place] [address] Nov, [facility] [address] [id number] [address] [place] [address], [place] [address] Oct, [facility] [address] [id number] [address] [place] [address], [place] [address] Oct, [facility] [address] [id number] [address] [place] [address], [place] [address] Oct, [facility] [address] [id number] [address] [place] [address], [place] [address] Oct, [facility] [address] [id number] [address] [place] [address], [place] [address] Oct, [facility] [address] [id number] [address] [place] [address], [place] [address] Oct, [facility] [address] [id number] [address] [place] [address], [place] [address] Oct, [facility] [address] [id number] [address] [place] [address], [place] [address] Oct, [facility] [address] [id number] [address] [place] [address], [place] [address] Sep, [facility] [address] [id number] [address] [place] [address], [place] [address] Sep, [facility] [address] [id number] [address] [place] [address], [place] [address] Sep, [facility] [address] [id number] [address] [place] [address], [place] [address] Sep, [facility] [address] [id number] [address] [place] [address], [place] [address] Sep, [facility] [address] [id number] [address] [place] [address], [place] [address] Sep, [facility] [address] [id number] [address] [place] [address], [place] [address] Aug, [facility] [address] [id number] [address] [place] [address], [place] [address] Aug, [facility] [address] [id number] [address] [place] [address], [place] [address] Aug, [facility] [address] [id number] [address] [place] [address], [place] [address] Aug, [facility] [address] [id number] [address] [place] [address], [place] [address] Aug, [facility] [address] [id number] [address] [place] [address], [place] [address] Aug, [facility] [address] [id number] [address] [place] [address], [place] [address] Aug, [facility] [address] [id number] [address] [place] [address], [place] [address] Aug, [facility] [address] [id number] [address] [place] [address], [place] [address] Aug, [facility] [address] [id number] [address] [place] [address], [place] [address] Aug, [facility] [address] [id number] [address] [place] [address] Jul, [facility] [address] [id number] [address] [place] [address], [place] [address] Jul, [facility] [address] [id number] [address] [place] [address], [place] [address] Jul, [facility] [address] [id number] [address] [place] [address], [place] [address] Jul, [facility] [address] [id number] [address] [place] [address], [place] [address] Jul, [facility] [address] [id number] [address] [place] [address], [place] [address] Jul, [facility] [address] [id number] [address] [place] [address], [place] [address] Jun, [facility] [address] [id number] [address] [place] [address], [place] [address] Jun, [facility] [address] [id number] [address] [place] [address], [place] [address] Jun, [facility] [address] [id number] [address] [place] [address], [place] [address] Jun, [facility] [address] [id number] [address] [place] [address], [place] [address] Jun, [facility] [address] [id number] [address] [place] [address], [place] [address] Jun, [facility] [address] [id number] [address] [place] [address], [place] [address] May, [facility] [address] [id number] [address] [place] [address], [place] [address] May, [facility] [address] [id number] [address] [place] [address], [place] [address] May, [facility] [address] [id number] [facility] [place] [address] May, [facility] [address] [id number] [facility] [place] [address] May, [facility] [address] [id number] [address] [place] [address], [place] [address] Apr, [facility] [address] [id number] [address] [place] [address], [place] [address] Apr, [facility] [address] [id number] [address] [place] [address], [place] [address] Apr, [facility] [address] [id number] [place] [address], [place] [address] Apr, [facility] [address] [id number] [address] [place] [address], [place] [address] March, [facility] [address] [id number] [address] [place] [address], [place] [address] March, [facility] [address] [id number] [address] [place] [address], [place] [address] March, [facility] [address] [id number] [address] [place] [address], [place] [address] March, [facility] [address] [id number] [address] [place] [address], [place] [address] March, [facility] [address] [id number] [address] [place] [address], [place] [address] March, [facility] [address] [id number] [address] [place] [address], [place] [address] Feb, [facility] [address] [id number] [address] [place] [address], [place] [address] Feb, [facility] [address] [id number] [address] [place] [address], [place] [address] Feb, [facility] [address] [id number] [address] [place] [address], [place] [address] Feb, [facility] [address] [id number] [facility] [place] [address] Feb, [facility] [address] [id number] [address] [place] [address], [place] [address] Feb, [facility] [address] [id number] [address] [place] [address], [place] [address] Feb, [facility] [address] [id number] [address] [place] [address], [place] [address] Feb, [facility] [address] [id number] [address] [place] [address], [place] [address] Jan, [facility] [address] [id number] [address] [place] [address], [place] [address] Jan, [facility] [address] [id number] [address] [place] [address], [place] [address] Jan, [facility] [address] [id number] [address] [place] [address], [place] [address] Jan, [facility] [address] [id number] [address] [place] [address], [place] [address] Jan, [facility] [address] [id number] [address] [place] [address], [place] [address] Jan, [facility] [address] [id number] [address] [place] [address], [place] [address] Dec, [facility] [address] [id number] [address] [place] [address], [place] [address] Dec, [facility] [address] [id number] [address] [place] [address], [place] [address] Nov, [facility] [address] [id number] [address] [place] [address], [place] [address] Nov, [facility] [address] [id number] [address] [place] [address], [place] [address] Nov, [facility] [address] [id number] [address] [place] [address], [place] [address] 10 Nov, 2013 [facility] [address] [id number] [address] [place] [address], [place] [address] Nov, [facility] [address] [id number] [address] [place] [address], [place] [address] Nov, [facility] [address] [id number] [address] [place] [address], [place] [address] Nov, [facility] [address] [id number] [address] [place] [address], [place] [address] Nov, [facility] [address] [id number] [address] [place] [address], [place] [address] Nov, [facility] [address] [id number] [address] [place] [address], [place] [address] Nov, [facility] [address] [id number] [address] [place] [address], [place] [address] Nov, [facility] [address] [id number] [address] [place] [address], [place] [address] Nov, [facility] [address] [id number] [address] [place] [address], [place] [address] Nov, [facility] [address] [id number] [address] [place] [address], [place] [address] Nov, [facility] [address] [id number] [address] [place] [address], [place] [address] Nov, [facility] [address] [id number] [address] [place] [address], [place] [address] Oct, [facility] [address] [id number] [address] [place] [address], [place] [address] Oct, [facility] [address] [id number] [address] [place] [address], [place] [address] Oct, [facility] [address] [id number] [address] [place] [address], [place] [address] Oct, [facility] [address] [id number] [address] [place] [address] Oct, [facility] [address] [id number] [address] [place] [address] Oct, [facility] [address] [id number] [address] [place] [id number] Oct, [facility] [address] [id number] [address] [place] [address] Oct, [facility] [address] [id number] [address] [place] [address] Oct, [facility] [address] [id number] [address] [place] [address] Aug, [facility] [address] [facility] [id number] [address] [place] [id number] Aug, IMMUNIZATIONS No Known Immunizations SOCIAL HISTORY Never Assessed REASON FOR VISIT Pain management (chronic)--tjanssenMA, --wants to see about getting a right shou lder injection. PLAN OF CARE Activity Details Follow Up 3 Months Reason:Chronic pain VITAL SIGNS Height 69 in 2018-01-29 Weight 184.6 lbs 2018-01-29 Temperature 97.9 degrees Fahrenheit 2018-01-29 Heart Rate 80 bpm 2018-01-29 Respiratory Rate 20 2018-01-29 BMI 27.26 kg/m2 2018-01-29 Blood pressure systolic 162 mmHg 2018-01-29 Blood pressure diastolic 100 mmHg 2018-01-29 MEDICATIONS Medication Instructions Dosage Frequency Start Date End Date Duration S tatus Nitroglycerin 0.4 mg 1 tablet by Subling ual route every 5 PRN chest pain; NTE 3 tabs in 15 min Jun, Active Movantik 12.5 MG Orally Once a day 1 tablet in the morning 24h 30 Not-Taking MS Contin 15 mg Orally every 12 hrs 1 tablet 12h Nov, Active Aspirin 81 mg take 1 tablet (81 mg) by oral route once daily Nov, Active Cyanocobalamin 1000 MCG/ML Injection every other month INJEC T 1 ML SUBCUTANEOUSLY 28 Active Oxycodone HCl 10 mg Orally every 6 hrs 1 tablet as needed 6h 09 Dec Active Fluoxetine HCl 20 MG Orally Once a day 1 capsule in the morning 24h 90 Active Lisinopril-Hydrochlorothiazide 20-25 MG TAKE ONE TABLE T BY MOUTH ONCE DAILY Active Omeprazole 20 mg Orally Once a day 1 capsule 24h 30 Active ProAir HFA 108 (90 Base) MCG/ACT Inhalation every 4 hrs 2 puffs as ne eded 4h Active Singulair 10 mg Orally Once a day 1 tablet in the evening 24h 30 Active Clonazepam 0.5 MG Orally twice a day 1 tablet as needed for anxiety 12h Feb, Active HM Senna-S 8.6-50 MG Orally 2 times a day 1 tablet 12h May, Not-Taking Amitriptyline HCl 50 MG Orally Once a day 1 tablet at bedtime 24h 90 Active Multivitamin 1 Tablet 1 time per day Aug, Active Atenolol 25 MG Orally Once a day 1 tablet 24h Jan, 3 0 day(s) Active Clonazepam 1 MG Orally Once a day at HS 1 tablet Sep, Active Ipratropium-Albuterol 20-100 mcg/actuation Inhalation Four times a day as needed 1 puff Jun, Not-Taking RESULTS No Results PROCEDURES Procedure Date Ordered Result Body Site DRAIN/INJECT, JOINT/BURSA January 29, 2018 [facility] VISIT ESTABLISHED PATIENT January 29, 2018 INSTRUCTIONS MEDICATIONS ADMINISTERED No Known Medications MEDICAL (GENERAL) HISTORY Type Description Date Medical History hypertension Medical History asthma Medical History Arthritis Medical History Hypoglycemia Medical History Heart Cath 11/05/2013 Medical History herniated disc--Seen by Dr. Troy Michelle pain specialist in [place], [place] Medical History Chronic low back pain [...]
--- OUTSIDE RECORDS SUMMARY | 2020-06-19 02:22 | XMS REPORT ---
Author Author Mahsa ROBERTS Organization [facility] Address [address] [place] [address] Care Team Providers Care Pattern Changer And Repairer Name Role Phone ARMANDO ASHVIN Unavailable PROBLEMS Type Condition ICD9-CM Code DLD44-NB Code Onset Dates Condition S tatus SNOMED Code Problem Chronic prescription opiate use Z79.899 Active 955698791 Problem B12 deficiency E53.8 Active 26161 4004 Problem Bilateral low back pain, with sciatica presence unspecifie d M54.5 Active 519642683 Problem CKD (chronic kidney disease) stage 3, GFR 30-59 ml/min N18.3 Active 933326765 Problem Drug induced constipation K59.03 Acti ve [id number] Problem GERD (gastroesophageal reflux disease) K21.9 Active 808515024 Problem Allergic rhinitis J30.9 Active 61 893742 Problem Chronic obstructive pulmonary disease, unspecified COPD ty pe J44.9 Active 27656212 Problem Fibromyalgia M79.7 Active 1451024 7 Problem Chronic pain syndrome G89.4 Active 777759304 Problem Primary insomnia F51.01 Active 193 831094 Problem Other constipation K59.09 Active 1 [id number] Problem Atherosclerosis of [place] co ronary artery of [place] heart without angina pectoris I25.10 Active 7142482889147 Problem Major depressive disorder, recurrent episode, un specified severity F33.9 Active 96804327 Problem Anxiety F41.9 Active 21133252 Problem Hyperlipidemia, unspecified hyperlipidemia E78.5 Active 45996559 Problem Essential hypertension I10 Active 70357186 Problem Chronic prescription benzodiazepine use Z79.899 Active 652755053 ALLERGIES No Information ENCOUNTERS Encounter Location Date Diagnosis [facility] [address] [facility] [id number] [address] [place] [id number] Apr, Anxiety F41.9 [facility] [address] [facility] [id number] [address] [place] [address] Apr, Chronic prescription opiate use Z79.899 ; Chronic pain syndrome G89.4 ; Essential hypertension I10 ; Allergic rhinitis J30.9 and CKD (chronic kidney disease) stage 3, GFR 30-59 ml/min N18.3 [place] [address] [place] [id number] [address] [place] [address] Apr, [place] [address] [place] [id number] [address] [place] [address] March, Anxiety F41.9 and Chronic pa in syndrome G89.4 [place] [address] [place] [id number] [address] [place] [address] March, CKD (chronic kidney disease) stage 3, GFR 30-59 ml/min N18.3 ; B12 deficiency E53.8 and Hyperlipidemia, unspecified hyperlipidemia E78.5 [place] [address] [place] [id number] [address] [place] [address] March, Anxiety F41.9 and Chronic pa in syndrome G89.4 [place] [address] [place] [id number] [address] [place] [address] Feb, Anxiety F41.9 and Chronic pa in syndrome G89.4 [place] [address] [place] [id number] [address] [place] [phone] Jan, B12 deficiency E53.8 [place] [address] [place] [id number] [address] [place] [address] Jan, [place] [address] [address] Jan, Anxiety F41.9 ; Chronic pain syndrome G89.4 and Essential hypertension I10 [place] [address] [address] Jan, CKD (chronic kidney disease) stage 3, [...] Subacromial bursitis of right shoulder joint M75.51 [facility] [address] [id number] [address] [place] [address] 28 Dec, 2017 Essential hypertension I10 [facility] [address] [id number] [address] [place] [phone] 15 Dec, 2017 Chronic pain syndrome G89.4 [place] [address] [facility] [id number] [address] [place] [address] Dec, Chronic pain syndrome G89.4 [place] [address] [facility] [id number] [address] [place] [address] Nov, [place] [address] [facility] [id number] [address] [place] [address] Nov, Chronic pain syndrome G89.4 and Anxiety F41.9 [place] [id number] [facility] [id number] [address] [place] [address] Oct, Chronic pain syndrome G89.4 ; Other constipation K59.09 and Chronic prescription opiate use Z79.899 [place] [id number] [facility] [id number] [address] [place] [phone] Oct, Chronic pain syndrome G89.4 and Anxiety F41.9 [facility] [address] [facility] [id number] [address] [place] [address] Sep, Essential hypertension I10 [facility] [address] [id number] [address] [place] [address] 16 Sep, 2017 Chronic pain syndrome G89.4 and Anxiety F41.9 [facility] [address] [facility] [id number] [address] [place] [phone] Aug, Chronic pain syndrome G89.4 and Anxiety F41.9 [place] [id number] [facility] [id number] [address] [place] [address] Jul, Essential hypertension I10 [place] [address] [place] [id number] [address] [place] [address] Jul, Chronic obstructive pulmonar y disease, unspecified COPD type J44.9 [place] [address] [place] [id number] [address] [place] [address] Jul, Chronic pain syndrome G89.4 and Anxiety F41.9 [place] [address] [place] [id number] [place] [phone] 13 Jul, 2017 Chronic pain syndrome G89.4 ; Essential hypertension I10 ; Fibromyalgia M79.7 ; CKD (chronic kidney disease) stage 3, GFR 30-59 ml/min N18.3 ; Subacromial bursitis, right M75.51 and Goals of care, co unseling/discussion Z71.89 [place] [address] [address] Jun, Chronic pain syndrome G89.4 and Anxiety F41.9 [place] [address] [place] [id number] [address] [place] [address] May, Chronic pain syndrome G89.4 and Anxiety F41.9 [place] [address] [place] [id number] [address] [place] [address] Apr, Chronic pain syndrome G89.4 and Anxiety F41.9 [place] [address] [place] [id number] [address] [place] [phone] 14 Apr, 2017 Drug induced constipation K5 9.03 ; Chronic pain syndrome G89.4 and CKD (chronic kidney disease) stage 3, GFR 30-59 ml/min N18.3 [place] [address] [place] [id number] [address] [place] [address] 02 Apr, 2017 Chronic pain syndrome G89.4 and Anxiety F41.9 [place] [address] [place] [id number] [address] [place] [phone] March, Chronic pain syndrome G89.4 and Anxiety F41.9 [facility] [address] [id number] [address] [place] [address] March, Decreased GFR R94.4 [facility] [address] [id number] [address] [place] [address] Feb, [facility] [address] [facility] [id number] [address] [place] [address] Feb, Chronic pain syndrome G89.4 and Anxiety F41.9 [facility] [address] [id number] [address] [place] [address] Jan, Decreased GFR R94.4 [facility] [address] [facility] [id number] [address] [place] [address] Jan, Decreased GFR R94.4 [facility] [address] [facility] [id number] [address] [place] [phone] Jan, Allergic rhinitis J30.9 ; Es sential hypertension I10 ; Major depressive disorder, recurrent episode, unspecified severity F33.9 and Primary insomnia F51.01 [facility] [address] [facility] [id number] [address] [place] [address] Jan, Acute right-sided thoracic b ack pain M54.6 ; Subacromial bursitis of right shoulder joint M75.51 ; Chronic pain syndrome G89.4 and Anxiety F41.9 [facility] [address] [facility] [id number] [address] [place] [address] Jan, Decreased GFR R94.4 [facility] [address] [facility] [id number] [address] [place] [address] Dec, Decreased GFR R94.4 [facility] [address] [facility] [id number] [address] [place] [address] Dec, Decreased GFR R94.4 [facility] [address] [facility] [id number] [address] [place] [address] Dec, Decreased GFR R94.4 [facility] [address] [address] 13 Dec, 2016 Decreased GFR R94.4 [place] [address] [address] 09 Dec, 2016 Anxiety F41.9 and Bilateral low back pain, with sciatica presence unspecified M54.5 [place] [address] [address] Dec, Thrombocytosis D47.3 ; Hyper lipidemia, unspecified hyperlipidemia E78.5 ; Need for hepatitis C screening test Z11.59 and B12 deficiency E53.8 [place] [address] [address] Nov, Need for hepatitis C screeni ng test Z11.59 [place] [address] [address] Nov, Anxiety F41.9 and Bilateral low back pain, with sciatica presence unspecified M54.5 [place] [address] [address] Oct, Bilateral low back pain, wit h sciatica presence unspecified M54.5 ; Chronic prescription opiate use Z79.899 ; Anxiety F41.9 ; Essential hypertension I10 ; Hyperlipidemia, unspecified hyperlipidemia E78.5 ; Health care maintenance Z00.00 and Thrombocytosis D47.3 [place] [address] [address] Sep, [place] [address] [address] Sep, [place] [address] [address] Aug, [place] [address] [address] Jul, B12 deficiency E53.8 [place] [address] [address] Jul, [facility] [address] [facility] [id number] [address] [place] [address] Jul, Essential hypertension I10 ; Chronic pain syndrome G89.4 ; Anxiety F41.9 ; Screening for breast cancer Z12.39 ; Atherosclerosis of [place] coronary artery of [place] heart without angina pectoris I25.10 ; Major depressive disorder, recurrent episode, unspecified severity F33.9 ; Primary insomnia F51.01 and Allergic rhinitis J30.9 [facility] [address] [facility] [id number] [address] [place] [address] Jun, [facility] [address] [facility] [id number] [address] [place] [address] Jun, Leg wound, right, initial en counter S81.801A and Encounter for immunization Z23 [place] [address] [facility] [id number] [address] [place] [address] Jun, Open wound of right ear, uns pecified open wound type, initial encounter S01.301A [facility] [address] [facility] [id number] [address] [place] [address] May, B12 deficiency E53.8 [place] [address] [place] [id number] [address] [place] [address] May, [place] [address] [place] [id number] [address] [place] [address] May, [place] [address] [place] [id number] [address] [place] [address] May, Chronic pain syndrome G89.4 ; Chronic prescription opiate use Z79.899 ; Allergic rhinitis J30.9 ; Essential hypertension I10 and Non-healing skin lesion L98.9 [place] [address] [facility] [id number] [address] [place] [address] Apr, [place] [address] [place] [id number] [address] [place] [address] March, [place] [address] [place] [id number] [address] [place] [address] Feb, [facility] [address] [facility] [id number] [address] [place] [address] Feb, [facility] [address] [address] Feb, Chronic pain syndrome G89.4 ; Anxiety F41.9 ; B12 deficiency E53.8 ; Allergic rhinitis J30.9 ; Fibromyalgia M79.7 ; Actinic keratosis L57.0 ; Skin rash R21 ; Open wound of right ear, unspecified open wound type, initial encounter S01.301A ; Subacromial bursitis, right M75.51 ; GERD (gastroesophageal reflux disease) K21.9 and Chronic obstructive pulmonary disease, unspecified COPD type J44.9 [facility] [address] [place] [id number] [address] [place] [address] Jan, [facility] [address] [address] Jan, Essential hypertension I10 [facility] [address] [address] Jan, [facility] [address] [address] Jan, [facility] [address] [place] [id number] [address] [place] [phone] Jan, [facility] [address] [place] [id number] [address] [place] [address] Dec, [facility] [address] [place] [id number] [address] [place] [address] Dec, Essential hypertension I10 [facility] [address] [facility] [id number] [address] [place] [address] Dec, [facility] [address] [place] [id number] [address] [place] [address] Dec, B12 deficiency E53.8 and Ess ential hypertension I10 [facility] [address] [facility] [id number] [address] [place] [address] Dec, [facility] [address] [facility] [id number] [address] [place] [address] Nov, Right shoulder pain M25.511 [facility] [address] [place] [id number] [address] [place] [address] Nov, Right shoulder pain M25.511 [facility] [address] [place] [id number] [address] [place] [address] Nov, Essential hypertension I10 a nd B12 deficiency E53.8 [facility] [address] [address] Nov, Major depressive disorder, r ecurrent episode, unspecified severity F33.9 ; Anxiety F41.9 ; Chronic pain syndrome G89.4 ; Essential hypertension I10 ; Hyperlipidemia, unspecified hyperlipidemia E78.5 ; Chronic prescription opiate use Z79.899 ; Allergic rhinitis J30.9 ; B12 deficiency E53.8 and Right shoulder pain M25.511 [facility] [address] [place] [id number] [address] [place] [address] Oct, [facility] [address] [place] [id number] [address] [place] [address] Oct, [facility] [address] [place] [id number] [address] [place] [address] Sep, [facility] [address] [place] [id number] [address] [place] [address] Sep, [facility] [address] [place] [id number] [address] [place] [address] Aug, [facility] [address] [place] [id number] [address] [place] [address] Aug, [facility] [address] [place] [id number] [address] [place] [address] Aug, [facility] [address] [place] [id number] [address] [place] [address] Aug, Other constipation K59.09 ; Hyperlipidemia, unspecified hyperlipidemia E78.5 ; Essential hypertension I10 ; Primary insomnia F51.01 ; Anxiety F41.9 ; Chronic pain syndrome G89.4 ; Right shoulder pain M25.511 and Acute cystitis without hematuria N30.00 [facility] [address] [id number] [address] [place] [address] 16 Jul, 2015 [facility] [address] [id number] [address] [place] [address] Jul, [facility] [address] [id number] [address] [place] [address] Jun, [facility] [address] [facility] [id number] [address] [place] [address] Jun, [facility] [address] [place] [id number] [address] [place] [address] Jun, [facility] [address] [facility] [id number] [address] [place] [address] May, [facility] [address] [facility] [id number] [address] [place] [address] May, Other chronic pain 338.29 ; Hypertension 401.9 and Constipation due to opioid therapy 564.09 [facility] [address] [facility] [id number] [address] [place] [address] May, [facility] [address] [facility] [id number] [address] [place] [address] May, [facility] [address] [id number] [address] [place] [address] Apr, [facility] [address] [facility] [id number] [address] [place] [address] Apr, Unspecified essential hypert ension 401.9 [facility] [address] [facility] [id number] [address] [place] [address] Apr, [facility] [address] [id number] [address] [place] [address], [place] [address] 16 Apr, 2015 [facility] [address] [id number] [address] [place] [address], [place] [address] Apr, [facility] [address] [id number] [address] [place] [address], [place] [address] 16 Apr, 2015 [facility] [address] [id number] [address] [place] [address], [place] [address] 15 Apr, 2015 [facility] [address] [id number] [address] [place] [address], [place] [address] Apr, [facility] [address] [id number] [address] [place] [address], [place] [address] March, Unspecified essential hypert ension 401.9 [facility] [address] [id number] [address] [place] [address], [place] [address] March, [facility] [address] [id number] [address] [place] [address], [place] [address] March, [facility] [address] [id number] [address] [place] [address], [place] [address] 14 Feb, 2015 [facility] [address] [id number] [address] [place] [address], [place] [address] Feb, [facility] [address] [id number] [address] [place] [address], [place] [address] 23 Jan, 2015 [facility] [address] [id number] [address] [place] [phone] 23 Jan, 2015 [facility] [address] [id number] [address] [place] [address], [place] [address] 17 Jan, 2015 [facility] [address] [id number] [address] [place] [address], [place] [address] 17 Jan, 2015 [facility] [address] [id number] [address] [place] [address], [place] [id number] 13 Jan, 2015 [facility] [address] [id number] [address] [place] [address], [place] [address] Jan, [facility] [address] [id number] [address] [place] [address], [place] [address] Jan, [facility] [address] [id number] [address] [place] [address], [place] [address] 16 Dec, 2014 [facility] [address] [id number] [address] [place] [address], [place] [address] 16 Dec, 2014 [facility] [address] [id number] [address] [place] [address], [place] [address] Dec, 2014 [facility] [address] [id number] [address] [place] [address], [place] [address] Nov, [facility] [address] [id number] [address] [place] [address], [place] [address] Nov, [facility] [address] [id number] [address] [place] [address], [place] [address] Oct, [facility] [address] [id number] [address] [place] [address], [place] [address] Oct, [facility] [address] [id number] [address] [place] [address], [place] [address] Oct, [facility] [address] [id number] [address] [place] [address], [place] [address] Oct, [facility] [address] [id number] [address] [place] [address], [place] [address] Oct, [facility] [address] [id number] [address] [place] [address], [place] [address] Oct, [facility] [address] [id number] [address] [place] [address], [place] [id number] Oct, [facility] [address] [id number] [address] [place] [address], [place] [address] Oct, [facility] [address] [id number] [address] [place] [address], [place] [address] Sep, [facility] [address] [id number] [address] [place] [address], [place] [address] Sep, [facility] [address] [id number] [address] [place] [address], [place] [address] Sep, [facility] [address] [id number] [address] [place] [address], [place] [address] Sep, [facility] [address] [id number] [address] [place] [address], [place] [address] Sep, [facility] [address] [id number] [address] [place] [address], [place] [address] Sep, [facility] [address] [id number] [address] [place] [address], [place] [address] Aug, [facility] [address] [id number] [address] [place] [address], [place] [address] Aug, [facility] [address] [id number] [address] [place] [address], [place] [address] Aug, [facility] [address] [id number] [address] [place] [address], [place] [address] Aug, [facility] [address] [id number] [address] [place] [address], [place] [address] Aug, [facility] [address] [id number] [address] [place] [address], [place] [address] Aug, [facility] [address] [id number] [address] [place] [address], [place] [id number] Aug, [facility] [address] [id number] [address] [place] [address], [place] [id number] Aug, [facility] [address] [id number] [address] [place] [address], [place] [id number] Aug, [facility] [address] [id number] [address] [place] [address], [place] [id number] Aug, [facility] [address] [id number] [address] [place] [address], [place] [id number] Jul, [facility] [address] [id number] [facility] [place] [id number] Jul, [facility] [address] [id number] [facility] [place] [id number] Jul, [facility] [address] [id number] [facility] [place] [address] Jul, [facility] [address] [id number] [address] [place] [address], [place] [id number] Jul, [facility] [address] [id number] [facility] [place] [id number] Jul, [facility] [address] [id number] [address] [place] [address], [place] [id number] Jun, [facility] [address] [id number] [address] [place] [address], [place] [id number] Jun, [facility] [address] [id number] [address] [place] [address], [place] [id number] Jun, [facility] [address] [id number] [address] [place] [address], [place] [id number] Jun, [facility] [address] [id number] [address] [place] [address], [place] [id number] Jun, [facility] [address] [id number] [address] [place] [address], [place] [id number] Jun, [facility] [address] [id number] [address] [place] [address], [place] [id number] May, [facility] [address] [id number] [address] [place] [address], [place] [id number] May, [facility] [address] [id number] [address] [place] [address], [place] [id number] May, [facility] [address] [id number] [address] [place] [address], [place] [id number] May, [facility] [address] [id number] [address] [place] [address], [place] [address] May, [facility] [address] [id number] [address] [place] [address], [place] [id number] Apr, [facility] [address] [id number] [address] [place] [address], [place] [address] Apr, [facility] [address] [id number] [address] [place] [address], [place] [id number] Apr, [facility] [address] [id number] [address] [place] [address], [place] [address] Apr, [facility] [address] [id number] [address] [place] [address], [place] [id number] March, [facility] [address] [id number] [address] [place] [address], [place] [address] March, [facility] [address] [id number] [address] [place] [address], [place] [id number] March, [facility] [address] [id number] [address] [place] [address], [place] [address] March, [facility] [address] [id number] [address] [place] [address], [place] [id number] March, [facility] [address] [id number] [address] [place] [address], [place] [address] March, [facility] [address] [id number] [address] [place] [address], [place] [id number] Feb, [facility] [address] [id number] [address] [place] [address], [place] [address] Feb, [facility] [address] [id number] [address] [place] [address], [place] [address] Feb, [facility] [address] [id number] [address] [place] [address], [place] [address] Feb, [facility] [address] [id number] [address] [place] [address], [place] [id number] Feb, [facility] [address] [id number] [facility] [place] [address] Feb, [facility] [address] [id number] [address] [place] [address], [place] [address] Feb, [facility] [address] [id number] [facility] [place] [address] Feb, [facility] [address] [id number] [address] [place] [address], [place] [address] Jan, [facility] [address] [id number] [address] [place] [address], [place] [address] Jan, [facility] [address] [id number] [address] [place] [address], [place] [address] Jan, [facility] [address] [id number] [address] [place] [address], [place] [address] Jan, [facility] [address] [id number] [address] [place] [address], [place] [address] Jan, [facility] [address] [id number] [address] [place] [address], [place] [address] Jan, [facility] [address] [id number] [address] [place] [address], [place] [id number] Dec, [facility] [address] [id number] [address] [place] [address], [place] [id number] Dec, [facility] [address] [id number] [address] [place] [address], [place] [address] Nov, [facility] [address] [id number] [address] [place] [address], [place] [id number] Nov, [facility] [address] [id number] [address] [place] [address], [place] [address] Nov, [facility] [address] [id number] [address] [place] [address], [place] [address] Nov, [facility] [address] [id number] [address] [place] [address], [place] [address] Nov, [facility] [address] [id number] [address] [place] [address], [place] [address] Nov, [facility] [address] [id number] [address] [place] [address], [place] [address] Nov, [facility] [address] [id number] [address] [place] [address], [place] [address] Nov, [facility] [address] [id number] [address] [place] [address], [place] [address] Nov, [facility] [address] [id number] [address] [place] [address], [place] [address] Nov, [facility] [address] [id number] [address] [place] [address], [place] [address] Nov, [facility] [address] [id number] [address] [place] [address], [place] [address] Nov, [facility] [address] [id number] [address] [place] [address], [place] [address] Nov, [facility] [address] [id number] [address] [place] [address], [place] [address] Nov, [facility] [address] [id number] [address] [place] [address], [place] [address] Nov, [facility] [address] [id number] [address] [place] [address], [place] [address] Oct, [facility] [address] [id number] [address] [place] [address], [place] [address] Oct, [facility] [address] [id number] [address] [place] [address], [place] [id number] Oct, [facility] [address] [id number] [address] [place] [address], [place] [address] Oct, [facility] [address] [id number] [address] [place] [address], [place] [address] Oct, [facility] [address] [id number] [address] [place] [id number] Oct, [facility] [address] [facility] [id number] [address] [place] [id number] Oct, [facility] [address] [facility] [id number] [address] [place] [id number] Oct, [facility] [address] [facility] [id number] [address] [place] [id number] Oct, [facility] [address] [facility] [id number] [address] [place] [id number] Aug, [facility] [address] [facility] [id number] [address] [place] [id number] Aug, IMMUNIZATIONS No Known Immunizations SOCIAL HISTORY Never Assessed REASON FOR VISIT Controlled Med Refill PLAN OF CARE VITAL SIGNS MEDICATIONS Medication Instructions Dosage Frequency Start Date End Date Duration S tatus MS Contin 15 mg Orally every 12 hrs 1 tablet 12h Nov, 20 days Active RESULTS No Results PROCEDURES No Known procedures INSTRUCTIONS MEDICATIONS ADMINISTERED No Known Medications MEDICAL (GENERAL) HISTORY Type Description Date Medical History hypertension Medical History asthma Medical History Arthritis Medical History Hypoglycemia Medical History Heart Cath 11/05/2013 Medical History herniated disc--Seen by Dr. Troy Michelle pain specialist in [place], [place] Medical History Chronic low back pain Medical History depression Medical History anxiety Medical History Panic attacks Medical History Vitamin B 12 deficiency r/t gastric bypa ss Medical History Low back injections 11/2012, 06/2013 Medical History Thrombocytosis Surgical History tonsillectomy Surgical History gastric bypass--2003-in [facility] a[facility] Unsure of Dr's name. No longer [...]
--- OUTSIDE RECORDS SUMMARY | 2020-06-19 02:22 | XMS REPORT ---
Author Author Mahsa ROBERTS Organization [facility] Address [address] [place] [address] Care Team Providers Care Counter Supervisor Name Role Phone ARMANDO ASHVIN Unavailable PROBLEMS Type Condition ICD9-CM Code [id number] Code Onset Dates Condition S tatus SNOMED Code Problem Chronic prescription opiate use Z79.899 Active 933573914 Problem B12 deficiency E53.8 Active 53831 4004 Problem Bilateral low back pain, with sciatica presence unspecifie d M54.5 Active 165493100 Problem CKD (chronic kidney disease) stage 3, GFR 30-59 ml/min N18.3 Active 151277271 Problem Drug induced constipation K59.03 Acti ve [id number] Problem GERD (gastroesophageal reflux disease) K21.9 Active 526630798 Problem Allergic rhinitis J30.9 Active 61 866703 Problem Chronic obstructive pulmonary disease, unspecified COPD ty pe J44.9 Active 26860227 Problem Fibromyalgia M79.7 Active 9428427 7 Problem Chronic pain syndrome G89.4 Active 409073635 Problem Primary insomnia F51.01 Active 193 792414 Problem Other constipation K59.09 Active 1 [id number] Problem Atherosclerosis of [place] co ronary artery of [place] heart without angina pectoris I25.10 Active 0672551501966 Problem Major depressive disorder, recurrent episode, un specified severity F33.9 Active 40722158 Problem Anxiety F41.9 Active 85136315 Problem Hyperlipidemia, unspecified hyperlipidemia E78.5 Active 73454379 Problem Essential hypertension I10 Active 06817541 Problem Chronic prescription benzodiazepine use Z79.899 Active 237026138 ALLERGIES No Information ENCOUNTERS Encounter Location Date Diagnosis [facility] [address] [facility] [id number] [address] [place] [id number] Apr, Anxiety F41.9 [facility] [address] [facility] [facility] [id number] [address] [place] [id number] Apr, Chronic prescription opiate use Z79.899 ; Chronic pain syndrome G89.4 ; Essential hypertension I10 ; Allergic rhinitis J30.9 and CKD (chronic kidney disease) stage 3, GFR 30-59 ml/min N18.3 [place] [address] [place] [id number] [address] [place] [id number] Apr, [place] [address] [place] [id number] [address] [place] [id number] March, Anxiety F41.9 and Chronic pa in syndrome G89.4 [place] [address] [place] [id number] [address] [place] [id number] March, CKD (chronic kidney disease) stage 3, GFR 30-59 ml/min N18.3 ; B12 deficiency E53.8 and Hyperlipidemia, unspecified hyperlipidemia E78.5 [place] [address] [place] [id number] [address] [place] [phone] March, Anxiety F41.9 and Chronic pa in syndrome G89.4 [place] [address] [place] [id number] [address] [place] [id number] Feb, Anxiety F41.9 and Chronic pa in syndrome G89.4 [place] [address] [place] [id number] [address] [place] [id number] Jan, B12 deficiency E53.8 [place] [address] [place] [id number] [address] [place] [id number] Jan, [place] [address] [address] Jan, Anxiety F41.9 ; Chronic pain syndrome G89.4 and Essential hypertension I10 [place] [address] [id number] Jan, CKD (chronic kidney disease) stage 3, [...] Subacromial bursitis of right shoulder joint M75.51 [facility] [address] [id number] [address] [place] [id number] 28 Dec, 2017 Essential hypertension I10 [facility] [address] [id number] [address] [place] [id number] 15 Dec, 2017 Chronic pain syndrome G89.4 [place] [address] [facility] [id number] [address] [place] [id number] Dec, Chronic pain syndrome G89.4 [place] [address] [facility] [id number] [address] [place] [phone] Nov, [place] [address] [facility] [id number] [address] [place] [id number] Nov, Chronic pain syndrome G89.4 and Anxiety F41.9 [place] [address] [facility] [id number] [address] [place] [id number] Oct, Chronic pain syndrome G89.4 ; Other constipation K59.09 and Chronic prescription opiate use Z79.899 [place] [address] [facility] [id number] [address] [place] [id number] Oct, Chronic pain syndrome G89.4 and Anxiety F41.9 [facility] [address] [id number] [address] [place] [id number] Sep, Essential hypertension I10 [facility] [address] [id number] [address] [place] [id number] 16 Sep, 2017 Chronic pain syndrome G89.4 and Anxiety F41.9 [facility] [address] [id number] [address] [place] [phone] Aug, Chronic pain syndrome G89.4 and Anxiety F41.9 [place] [address] [facility] [id number] [address] [place] [phone] Jul, Essential hypertension I10 [place] [address] [place] [id number] [address] [place] [id number] Jul, Chronic obstructive pulmonar y disease, unspecified COPD type J44.9 [place] [address] [place] [id number] [address] [place] [id number] Jul, Chronic pain syndrome G89.4 and Anxiety F41.9 [place] [address] [place] [id number] [place] [phone] 13 Jul, 2017 Chronic pain syndrome G89.4 ; Essential hypertension I10 ; Fibromyalgia M79.7 ; CKD (chronic kidney disease) stage 3, GFR 30-59 ml/min N18.3 ; Subacromial bursitis, right M75.51 and Goals of care, co unseling/discussion Z71.89 [place] [address] [address] Jun, Chronic pain syndrome G89.4 and Anxiety F41.9 [place] [address] [place] [id number] [address] [place] [id number] May, Chronic pain syndrome G89.4 and Anxiety F41.9 [place] [address] [place] [id number] [address] [place] [phone] Apr, Chronic pain syndrome G89.4 and Anxiety F41.9 [place] [address] [place] [id number] [address] [place] [id number] 14 Apr, 2017 Drug induced constipation K5 9.03 ; Chronic pain syndrome G89.4 and CKD (chronic kidney disease) stage 3, GFR 30-59 ml/min N18.3 [place] [address] [place] [id number] [address] [place] [id number] 02 Apr, 2017 Chronic pain syndrome G89.4 and Anxiety F41.9 [place] [address] [place] [id number] [address] [place] [id number] March, Chronic pain syndrome G89.4 and Anxiety F41.9 [facility] [address] [id number] [address] [place] [phone] March, Decreased GFR R94.4 [facility] [address] [id number] [address] [place] [id number] Feb, [facility] [address] [id number] [address] [place] [id number] Feb, Chronic pain syndrome G89.4 and Anxiety F41.9 [facility] [address] [id number] [address] [place] [phone] Jan, Decreased GFR R94.4 [facility] [address] [id number] [address] [place] [id number] Jan, Decreased GFR R94.4 [facility] [address] [id number] [address] [place] [id number] Jan, Allergic rhinitis J30.9 ; Es sential hypertension I10 ; Major depressive disorder, recurrent episode, unspecified severity F33.9 and Primary insomnia F51.01 [facility] [address] [id number] [address] [place] [id number] Jan, Acute right-sided thoracic b ack pain M54.6 ; Subacromial bursitis of right shoulder joint M75.51 ; Chronic pain syndrome G89.4 and Anxiety F41.9 [facility] [address] [id number] [address] [place] [phone] Jan, Decreased GFR R94.4 [facility] [address] [facility] [id number] [address] [place] [phone] Dec, Decreased GFR R94.4 [facility] [address] [id number] [address] [place] [phone] Dec, Decreased GFR R94.4 [facility] [address] [id number] [address] [place] [id number] Dec, Decreased GFR R94.4 [facility] [address] [address] 13 Dec, 2016 Decreased GFR R94.4 [place] [address] [id number] 09 Dec, 2016 Anxiety F41.9 and Bilateral low back pain, with sciatica presence unspecified M54.5 [place] [address] [address] Dec, Thrombocytosis D47.3 ; Hyper lipidemia, unspecified hyperlipidemia E78.5 ; Need for hepatitis C screening test Z11.59 and B12 deficiency E53.8 [place] [address] [address] Nov, Need for hepatitis C screeni ng test Z11.59 [place] [address] [address] Nov, Anxiety F41.9 and Bilateral low back pain, with sciatica presence unspecified M54.5 [place] [address] [address] Oct, Bilateral low back pain, wit h sciatica presence unspecified M54.5 ; Chronic prescription opiate use Z79.899 ; Anxiety F41.9 ; Essential hypertension I10 ; Hyperlipidemia, unspecified hyperlipidemia E78.5 ; Health care maintenance Z00.00 and Thrombocytosis D47.3 [place] [address] [address] Sep, [place] [address] [address] Sep, [place] [address] [address] Aug, [place] [address] [address] Jul, B12 deficiency E53.8 [place] [address] [address] Jul, [facility] [address] [id number] [address] [place] [address] Jul, Essential hypertension I10 ; Chronic pain syndrome G89.4 ; Anxiety F41.9 ; Screening for breast cancer Z12.39 ; Atherosclerosis of [place] coronary artery of [place] heart without angina pectoris I25.10 ; Major depressive disorder, recurrent episode, unspecified severity F33.9 ; Primary insomnia F51.01 and Allergic rhinitis J30.9 [facility] [address] [id number] [address] [place] [id number] Jun, [facility] [address] [facility] [id number] [address] [place] [id number] Jun, Leg wound, right, initial en counter S81.801A and Encounter for immunization Z23 [place] [address] [id number] [address] [place] [address] Jun, Open wound of right ear, uns pecified open wound type, initial encounter S01.301A [facility] [address] [facility] [id number] [address] [place] [id number] May, B12 deficiency E53.8 [place] [address] [place] [id number] [address] [place] [phone] May, [place] [address] [place] [id number] [address] [place] [id number] May, [place] [address] [place] [id number] [address] [place] [address] May, Chronic pain syndrome G89.4 ; Chronic prescription opiate use Z79.899 ; Allergic rhinitis J30.9 ; Essential hypertension I10 and Non-healing skin lesion L98.9 [place] [address] [id number] [address] [place] [phone] Apr, [place] [address] [place] [id number] [address] [place] [id number] March, [place] [address] [place] [id number] [address] [place] [id number] Feb, [facility] [address] [facility] [id number] [address] [place] [id number] Feb, [facility] [address] [address] Feb, Chronic pain syndrome G89.4 ; Anxiety F41.9 ; B12 deficiency E53.8 ; Allergic rhinitis J30.9 ; Fibromyalgia M79.7 ; Actinic keratosis L57.0 ; Skin rash R21 ; Open wound of right ear, unspecified open wound type, initial encounter S01.301A ; Subacromial bursitis, right M75.51 ; GERD (gastroesophageal reflux disease) K21.9 and Chronic obstructive pulmonary disease, unspecified COPD type J44.9 [facility] [address] [place] [id number] [address] [place] [id number] Jan, [facility] [address] [id number] Jan, Essential hypertension I10 [facility] [address] [id number] Jan, [facility] [address] [address] Jan, [facility] [address] [place] [id number] [address] [place] [id number] Jan, [facility] [address] [place] [id number] [address] [place] [phone] Dec, [facility] [address] [place] [id number] [address] [place] [id number] Dec, Essential hypertension I10 [facility] [address] [facility] [id number] [address] [place] [id number] Dec, [facility] [address] [place] [id number] [address] [place] [id number] Dec, B12 deficiency E53.8 and Ess ential hypertension I10 [facility] [address] [facility] [id number] [address] [place] [id number] Dec, [facility] [address] [id number] [address] [place] [address] Nov, Right shoulder pain M25.511 [facility] [address] [place] [id number] [address] [place] [id number] Nov, Right shoulder pain M25.511 [facility] [address] [place] [id number] [address] [place] [id number] Nov, Essential hypertension I10 a nd B12 deficiency E53.8 [facility] [address] [address] Nov, Major depressive disorder, r ecurrent episode, unspecified severity F33.9 ; Anxiety F41.9 ; Chronic pain syndrome G89.4 ; Essential hypertension I10 ; Hyperlipidemia, unspecified hyperlipidemia E78.5 ; Chronic prescription opiate use Z79.899 ; Allergic rhinitis J30.9 ; B12 deficiency E53.8 and Right shoulder pain M25.511 [facility] [address] [place] [id number] [address] [place] [address] Oct, [facility] [address] [place] [id number] [address] [place] [id number] Oct, [facility] [address] [place] [id number] [address] [place] [address] Sep, [facility] [address] [place] [id number] [address] [place] [phone] Sep, [facility] [address] [place] [id number] [address] [place] [address] Aug, [facility] [address] [place] [id number] [address] [place] [phone] Aug, [facility] [address] [place] [id number] [address] [place] [address] Aug, [facility] [address] [place] [id number] [address] [place] [address] Aug, Other constipation K59.09 ; Hyperlipidemia, unspecified hyperlipidemia E78.5 ; Essential hypertension I10 ; Primary insomnia F51.01 ; Anxiety F41.9 ; Chronic pain syndrome G89.4 ; Right shoulder pain M25.511 and Acute cystitis without hematuria N30.00 [facility] [address] [id number] [address] [place] [id number] 16 Jul, 2015 [facility] [address] [id number] [address] [place] [id number] Jul, [facility] [address] [id number] [address] [place] [id number] Jun, [facility] [address] [id number] [address] [place] [id number] Jun, [facility] [address] [place] [id number] [address] [place] [phone] Jun, [facility] [address] [id number] [address] [place] [id number] May, [facility] [address] [id number] [address] [place] [id number] May, Other chronic pain 338.29 ; Hypertension 401.9 and Constipation due to opioid therapy 564.09 [facility] [address] [id number] [address] [place] [id number] May, [facility] [address] [id number] [address] [place] [phone] May, [facility] [address] [id number] [address] [place] [id number] Apr, [facility] [address] [id number] [address] [place] [id number] Apr, Unspecified essential hypert ension 401.9 [facility] [address] [id number] [address] [place] [phone] Apr, [facility] [address] [id number] [address] [place] [address], [place] [address] 16 Apr, 2015 [facility] [address] [id number] [address] [place] [address], [place] [address] Apr, [facility] [address] [id number] [address] [place] [address], [place] [address] 16 Apr, 2015 [facility] [address] [id number] [address] [place] [address], [place] [address] 15 Apr, 2015 [facility] [address] [id number] [address] [place] [address], [place] [address] Apr, [facility] [address] [id number] [address] [place] [address], [place] [address] March, Unspecified essential hypert ension 401.9 [facility] [address] [id number] [address] [place] [address], [place] [address] March, [facility] [address] [id number] [address] [place] [address], [place] [address] March, [facility] [address] [id number] [address] [place] [address], [place] [address] 14 Feb, 2015 [facility] [address] [id number] [address] [place] [address], [place] [address] Feb, [facility] [address] [id number] [address] [place] [place] [address], [place] [address] 23 Jan, 2015 [facility] [address] [id number] [address] [place] [id number] 23 Jan, 2015 [facility] [address] [id number] [address] [place] [address], [place] [address] 17 Jan, 2015 [facility] [address] [id number] [address] [place] [address], [place] [address] 17 Jan, 2015 [facility] [address] [id number] [address] [place] [place] [address], [place] [address] 13 Jan, 2015 [facility] [address] [id number] [address] [place] [address], [place] [address] Jan, [facility] [address] [id number] [address] [place] [address], [place] [address] Jan, [facility] [address] [id number] [address] [place] [address], [place] [address] 16 Dec, 2014 [facility] [address] [id number] [address] [place] [address], [place] [address] 16 Dec, 2014 [facility] [address] [id number] [address] [place] [address], [place] [address] Dec, 2014 [facility] [address] [id number] [address] [place] [address], [place] [address] Nov, [facility] [address] [id number] [address] [place] [address], [place] [address] Nov, [facility] [address] [id number] [address] [place] [address], [place] [address] Oct, [facility] [address] [id number] [address] [place] [address], [place] [address] Oct, [facility] [address] [id number] [address] [place] [address], [place] [address] Oct, [facility] [address] [id number] [address] [place] [address], [place] [address] Oct, [facility] [address] [id number] [address] [place] [address], [place] [address] Oct, [facility] [address] [id number] [address] [place] [address], [place] [address] Oct, [facility] [address] [id number] [address] [place] [address], [place] [address] Oct, [facility] [address] [id number] [address] [place] [address], [place] [address] Oct, [facility] [address] [id number] [address] [place] [address], [place] [address] Sep, [facility] [address] [id number] [address] [place] [address], [place] [address] Sep, [facility] [address] [id number] [address] [place] [address], [place] [address] Sep, [facility] [address] [id number] [address] [place] [address], [place] [address] Sep, [facility] [address] [id number] [address] [place] [address], [place] [address] Sep, [facility] [address] [id number] [address] [place] [address], [place] [address] Sep, [facility] [address] [id number] [address] [place] [address], [place] [address] Aug, [facility] [address] [id number] [address] [place] [address], [place] [address] Aug, [facility] [address] [id number] [address] [place] [address], [place] [address] Aug, [facility] [address] [id number] [address] [place] [address], [place] [address] Aug, [facility] [address] [id number] [address] [place] [address], [place] [address] Aug, [facility] [address] [id number] [address] [place] [address], [place] [address] Aug, [facility] [address] [id number] [address] [place] [address], [place] [address] Aug, [facility] [address] [id number] [address] [place] [address], [place] [address] Aug, [facility] [address] [id number] [address] [place] [address], [place] [address] Aug, [facility] [address] [id number] [address] [place] [address], [place] [address] Aug, [facility] [address] [id number] [address] [place] [address], [place] [id number] Jul, [facility] [address] [id number] [facility] [place] [address] Jul, [facility] [address] [id number] [facility] [place] [address] Jul, [facility] [address] [id number] [facility] [place] [address] Jul, [facility] [address] [id number] [address] [place] [address], [place] [address] Jul, [facility] [address] [id number] [facility] [place] [address] Jul, [facility] [address] [id number] [address] [place] [address], [place] [address] Jun, [facility] [address] [id number] [address] [place] [address], [place] [address] Jun, [facility] [address] [id number] [address] [place] [address], [place] [address] Jun, [facility] [address] [id number] [address] [place] [address], [place] [address] Jun, [facility] [address] [id number] [address] [place] [address], [place] [address] Jun, [facility] [address] [id number] [address] [place] [address], [place] [address] Jun, [facility] [address] [id number] [address] [place] [address], [place] [address] May, [facility] [address] [id number] [address] [place] [address], [place] [address] May, [facility] [address] [id number] [address] [place] [address], [place] [address] May, [facility] [address] [id number] [address] [place] [address], [place] [address] May, [facility] [address] [id number] [address] [place] [address], [place] [address] May, [facility] [address] [id number] [address] [place] [address], [place] [address] Apr, [facility] [address] [id number] [address] [place] [address], [place] [address] Apr, [facility] [address] [id number] [address] [place] [address], [place] [address] Apr, [facility] [address] [id number] [address] [place] [address], [place] [address] Apr, [facility] [address] [id number] [address] [place] [address], [place] [address] March, [facility] [address] [id number] [address] [place] [address], [place] [address] March, [facility] [address] [id number] [address] [place] [address], [place] [address] March, [facility] [address] [id number] [address] [place] [address], [place] [address] March, [facility] [address] [id number] [address] [place] [address], [place] [address] March, [facility] [address] [id number] [address] [place] [address], [place] [address] March, [facility] [address] [id number] [address] [place] [address], [place] [address] Feb, [facility] [address] [id number] [address] [place] [address], [place] [address] Feb, [facility] [address] [id number] [address] [place] [address], [place] [address] Feb, [facility] [address] [id number] [address] [place] [address], [place] [address] Feb, [facility] [address] [id number] [address] [place] [address], [place] [address] Feb, [facility] [address] [id number] [facility] [place] [address] Feb, [facility] [address] [id number] [address] [place] [address], [place] [address] Feb, [facility] [address] [id number] [facility] [place] [address] Feb, [facility] [address] [id number] [address] [place] [address], [place] [address] Jan, [facility] [address] [id number] [address] [place] [address], [place] [address] Jan, [facility] [address] [id number] [address] [place] [address], [place] [address] Jan, [facility] [address] [id number] [address] [place] [address], [place] [address] Jan, [facility] [address] [id number] [address] [place] [address], [place] [address] Jan, [facility] [address] [id number] [address] [place] [address], [place] [address] Jan, [facility] [address] [id number] [address] [place] [address], [place] [address] Dec, [facility] [address] [id number] [address] [place] [address], [place] [address] Dec, [facility] [address] [id number] [address] [place] [address], [place] [address] Nov, [facility] [address] [id number] [address] [place] [address], [place] [address] Nov, [facility] [address] [id number] [address] [place] [address], [place] [address] Nov, [facility] [address] [id number] [address] [place] [address], [place] [address] Nov, [facility] [address] [id number] [address] [place] [address], [place] [address] Nov, [facility] [address] [id number] [address] [place] [address], [place] [address] Nov, [facility] [address] [id number] [address] [place] [address], [place] [address] Nov, [facility] [address] [id number] [address] [place] [address], [place] [address] Nov, [facility] [address] [id number] [address] [place] [address], [place] [address] Nov, [facility] [address] [id number] [address] [place] [address], [place] [address] Nov, [facility] [address] [id number] [address] [place] [address], [place] [address] Nov, [facility] [address] [id number] [address] [place] [address], [place] [address] Nov, [facility] [address] [id number] [address] [place] [address], [place] [address] Nov, [facility] [address] [id number] [address] [place] [address], [place] [address] Nov, [facility] [address] [id number] [address] [place] [address], [place] [address] Nov, [facility] [address] [id number] [address] [place] [address], [place] [address] Oct, [facility] [address] [id number] [address] [place] [address], [place] [address] Oct, [facility] [address] [id number] [address] [place] [address], [place] [address] Oct, [facility] [address] [id number] [address] [place] [address], [place] [address] Oct, [facility] [address] [id number] [address] [place] [address], [place] [address] Oct, [facility] [address] [id number] [address] [place] [address] Oct, [facility] [address] [facility] [id number] [address] [place] [id number] Oct, [facility] [address] [facility] [id number] [address] [place] [address] Oct, [facility] [address] [facility] [id number] [address] [place] [address] Oct, [facility] [address] [facility] [id number] [address] [place] [address] Aug, [facility] [address] [facility] [id number] [address] [place] [address] Aug, IMMUNIZATIONS No Known Immunizations SOCIAL HISTORY Never Assessed REASON FOR VISIT Medication question PLAN OF CARE VITAL SIGNS MEDICATIONS Medication Instructions Dosage Frequency Start Date End Date Duration S tatus Lisinopril-Hydrochlorothiazide 20-25 MG Orally Once a day 1 tablet 24 h 30 days Active RESULTS No Results PROCEDURES No Known procedures INSTRUCTIONS MEDICATIONS ADMINISTERED No Known Medications MEDICAL (GENERAL) HISTORY Type Description Date Medical History hypertension Medical History asthma Medical History Arthritis Medical History Hypoglycemia Medical History Heart Cath 11/05/2013 Medical History herniated disc--Seen by Dr. Tory Michelle pain specialist in [place], [place] Medical History Chronic low back pain Medical History depression Medical History anxiety Medical History Panic attacks Medical History Vitamin B 12 deficiency r/t gastric bypa ss Medical History Low back injections 11/2012, 06/2013 Medical History Thrombocytosis Surgical History tonsillectomy Surgical History [facility] Unsure of Dr's name. No longer [...]
--- OUTSIDE RECORDS SUMMARY | 2020-06-19 02:22 | XMS REPORT ---
Author Author Mahsa ROBERTS [facility] Address [address] [place] [address] Care Team Providers Care Butcherette Name Role Phone ARMANDO ASHVIN Unavailable PROBLEMS Type Condition ICD9-CM Code QXZ87-LX Code Onset Dates Condition S tatus SNOMED Code Problem Chronic prescription opiate use Z79.899 Active 044786818 Problem B12 deficiency E53.8 Active 69753 4004 Problem Bilateral low back pain, with sciatica presence unspecifie d M54.5 Active 137151336 Problem CKD (chronic kidney disease) stage 3, GFR 30-59 ml/min N18.3 Active 399628363 Problem Drug induced constipation K59.03 Acti ve [id number] Problem GERD (gastroesophageal reflux disease) K21.9 Active 123039380 Problem Allergic rhinitis J30.9 Active 61 379559 Problem Chronic obstructive pulmonary disease, unspecified COPD ty pe J44.9 Active 60332366 Problem Fibromyalgia M79.7 Active 5562057 7 Problem Chronic pain syndrome G89.4 Active 228132447 Problem Primary insomnia F51.01 Active 193 957804 Problem Other constipation K59.09 Active 1 [id number] Problem Atherosclerosis of [place] co ronary artery of [place] heart without angina pectoris I25.10 Active 4415110900669 Problem Major depressive disorder, recurrent episode, un specified severity F33.9 Active 95674248 Problem Anxiety F41.9 Active 67510711 Problem Hyperlipidemia, unspecified hyperlipidemia E78.5 Active 01130193 Problem Essential hypertension I10 Active 16743276 Problem Chronic prescription benzodiazepine use Z79.899 Active 205457935 ALLERGIES No Information ENCOUNTERS Encounter Location Date Diagnosis [facility] [address] [id number] [address] [place] [id number] March, [facility] [address] [id number] [address] [place] [phone] Feb, [place] [address] [place] [address] Jan, B12 deficiency E53.8 [place] [address] [address] Jan, [place] [address] [place] [id number] [place] [address] Jan, Anxiety F41.9 ; Chronic pain syndrome G89.4 and Essential hypertension I10 [place] [address] [address] Jan, CKD (chronic kidney disease) stage 3, [...] Subacromial bursitis of right shoulder joint M75.51 [place] [address] [address] 28 Dec, 2017 Essential hypertension I10 [place] [address] [place] [id number] [address] [place] [id number] 15 Dec, 2017 Chronic pain syndrome G89.4 [place] [address] [place] [id number] [address] [place] [address] Dec, Chronic pain syndrome G89.4 [place] [address] [place] [address] Nov, [place] [address] [place] [id number] [place] [address] Nov, Chronic pain syndrome G89.4 and Anxiety F41.9 [place] [address] [place] [id number] [address] [place] [address] Oct, Chronic pain syndrome G89.4 ; Other constipation K59.09 and Chronic prescription opiate use Z79.899 [facility] [address] [place] [id number] [address] [place] [address] 08 Oct, 2017 Chronic pain syndrome G89.4 and Anxiety F41.9 [place] [address] [facility] [id number] [address] [place] [address] Sep, Essential hypertension I10 [place] [address] [place] [id number] [address] [place] [address] 16 Sep, 2017 Chronic pain syndrome G89.4 and Anxiety F41.9 [place] [address] [place] [id number] [address] [place] [address] Aug, Chronic pain syndrome G89.4 and Anxiety F41.9 [place] [address] [place] [id number] [address] [place] [address] Jul, Essential hypertension I10 [place] [address] [place] [id number] [address] [place] [address] Jul, Chronic obstructive pulmonar y disease, unspecified COPD type J44.9 [place] [address] [place] [id number] [address] [place] [address] Jul, Chronic pain syndrome G89.4 and Anxiety F41.9 [place] [address] [place] [id number] [address] [place] [address] 13 Jul, 2017 Chronic pain syndrome G89.4 ; Essential hypertension I10 ; Fibromyalgia M79.7 ; CKD (chronic kidney disease) stage 3, GFR 30-59 ml/min N18.3 ; Subacromial bursitis, right M75.51 and Goals of care, co unseling/discussion Z71.89 [place] [address] [place] [id number] [address] [place] [address] Jun, Chronic pain syndrome G89.4 and Anxiety F41.9 [place] [address] [place] [id number] [address] [place] [address] May, Chronic pain syndrome G89.4 and Anxiety F41.9 [facility] [address] [id number] [address] [place] [address] Apr, Chronic pain syndrome G89.4 and Anxiety F41.9 [facility] [address] [id number] [address] [place] [address] Apr, Drug induced constipation K5 9.03 ; Chronic pain syndrome G89.4 and CKD (chronic kidney disease) stage 3, GFR 30-59 ml/min N18.3 [facility] [address] [id number] [address] [place] [id number] 02 Apr, 2017 Chronic pain syndrome G89.4 and Anxiety F41.9 [place] [address] [facility] [id number] [address] [place] [address] March, Chronic pain syndrome G89.4 and Anxiety F41.9 [place] [address] [facility] [id number] [address] [place] [address] March, Decreased GFR R94.4 [facility] [address] [id number] [address] [place] [address] Feb, [facility] [address] [id number] [address] [place] [address] Feb, Chronic pain syndrome G89.4 and Anxiety F41.9 [place] [address] [facility] [id number] [address] [place] [address] Jan, Decreased GFR R94.4 [place] [address] [facility] [id number] [address] [place] [address] Jan, Decreased GFR R94.4 [place] [address] [facility] [id number] [address] [place] [address] Jan, Allergic rhinitis J30.9 ; Es sential hypertension I10 ; Major depressive disorder, recurrent episode, unspecified severity F33.9 and Primary insomnia F51.01 [facility] [address] [id number] [address] [place] [address] Jan, Acute right-sided thoracic b ack pain M54.6 ; Subacromial bursitis of right shoulder joint M75.51 ; Chronic pain syndrome G89.4 and Anxiety F41.9 [place] [address] [address] Jan, Decreased GFR R94.4 [place] [address] [address] Dec, Decreased GFR R94.4 [place] [address] [address] Dec, Decreased GFR R94.4 [place] [address] [address] Dec, Decreased GFR R94.4 [place] [address] [address] Dec, Decreased GFR R94.4 [place] [address] [address] Dec, Anxiety F41.9 and Bilateral low back pain, with sciatica presence unspecified M54.5 [place] [address] [address] Dec, Thrombocytosis D47.3 ; Hyper lipidemia, unspecified hyperlipidemia E78.5 ; Need for hepatitis C screening test Z11.59 and B12 deficiency E53.8 [place] [address] [address] Nov, Need for hepatitis C screeni ng test Z11.59 [place] [address] [address] Nov, Anxiety F41.9 and Bilateral low back pain, with sciatica presence unspecified M54.5 [place] [address] [address] Oct, Bilateral low back pain, wit h sciatica presence unspecified M54.5 ; Chronic prescription opiate use Z79.899 ; Anxiety F41.9 ; Essential hypertension I10 ; Hyperlipidemia, unspecified hyperlipidemia E78.5 ; Health care maintenance Z00.00 and Thrombocytosis D47.3 [place] [address] [address] Sep, [facility] [address] [address] Sep, [place] [address] [address] Aug, [place] [address] [address] Jul, B12 deficiency E53.8 [place] [address] [address] Jul, [address] [address] Jul, Essential hypertension I10 ; Chronic pain syndrome G89.4 ; Anxiety F41.9 ; Screening for breast cancer Z12.39 ; Atherosclerosis of [place] coronary artery of [place] heart without angina pectoris I25.10 ; Major depressive disorder, recurrent episode, unspecified severity F33.9 ; Primary insomnia F51.01 and Allergic rhinitis J30.9 [place] [address] [place] [id number] [address] [place] [address] Jun, [facility] [address] [place] [address] Jun, Leg wound, right, initial en counter S81.801A and Encounter for immunization Z23 [address] [address] Jun, Open wound of right ear, uns pecified open wound type, initial encounter S01.301A [place] [address] [place] [address] May, B12 deficiency E53.8 [place] [id number] [place] [address] May, [facility] [address] [id number] [address] [place] [address] May, [facility] [address] [id number] [address] [place] [address] May, Chronic pain syndrome G89.4 ; Chronic prescription opiate use Z79.899 ; Allergic rhinitis J30.9 ; Essential hypertension I10 and Non-healing skin lesion L98.9 [facility] [address] [id number] [address] [place] [address] Apr, [facility] [address] [place] [id number] [place] [address] March, [facility] [address] [place] [id number] [address] [place] [address] Feb, [facility] [address] [place] [id number] [address] [place] [address] Feb, [facility] [address] [place] [id number] [address] [place] [address] Feb, Chronic pain syndrome G89.4 ; Anxiety F41.9 ; B12 deficiency E53.8 ; Allergic rhinitis J30.9 ; Fibromyalgia M79.7 ; Actinic keratosis L57.0 ; Skin rash R21 ; Open wound of right ear, unspecified open wound type, initial encounter S01.301A ; Subacromial bursitis, right M75.51 ; GERD (gastroesophageal reflux disease) K21.9 and Chronic obstructive pulmonary disease, unspecified COPD type J44.9 [facility] [address] [id number] [address] [place] [address] Jan, [facility] [address] [place] [id number] [address] [place] [address] Jan, Essential hypertension I10 [facility] [address] [place] [id number] [address] [place] [address] Jan, [facility] [address] [address] Jan, [facility] [address] [address] Jan, [facility] [address] [address] Dec, [facility] [address] [address] Dec, Essential hypertension I10 [place] [address] [address] Dec, [place] [address] [address] Dec, B12 deficiency E53.8 and Ess ential hypertension I10 [place] [address] [address] Dec, [facility] [address] [address] Nov, Right shoulder pain M25.511 [place] [address] [address] Nov, Right shoulder pain M25.511 [place] [address] [address] Nov, Essential hypertension I10 a nd B12 deficiency E53.8 [place] [address] [address] Nov, Major depressive disorder, r ecurrent episode, unspecified severity F33.9 ; Anxiety F41.9 ; Chronic pain syndrome G89.4 ; Essential hypertension I10 ; Hyperlipidemia, unspecified hyperlipidemia E78.5 ; Chronic prescription opiate use Z79.899 ; Allergic rhinitis J30.9 ; B12 deficiency E53.8 and Right shoulder pain M25.511 [place] [address] [address] Oct, [facility] [address] [id number] [address] [place] [address] Oct, [facility] [address] [id number] [address] [place] [address] Sep, [facility] [address] [id number] [address] [place] [address] Sep, [facility] [address] [id number] [address] [place] [address] Aug, [facility] [address] [id number] [address] [place] [address] Aug, [facility] [address] [place] [id number] [place] [address] Aug, [facility] [address] [place] [id number] [place] [address] Aug, Other constipation K59.09 ; Hyperlipidemia, unspecified hyperlipidemia E78.5 ; Essential hypertension I10 ; Primary insomnia F51.01 ; Anxiety F41.9 ; Chronic pain syndrome G89.4 ; Right shoulder pain M25.511 and Acute cystitis without hematuria N30.00 [facility] [address] [id number] [address] [place] [address] Jul, [facility] [address] [id number] [address] [place] [address] Jul, [facility] [address] [id number] [address] [place] [phone] Jun, [facility] [address] [id number] [address] [place] [address] Jun, [facility] [address] [id number] [address] [place] [address] Jun, [facility] [address] [id number] [address] [place] [address] May, [facility] [address] [id number] [address] [place] [address] May, Other chronic pain 338.29 ; Hypertension 401.9 and Constipation due to opioid therapy 564.09 [facility] [address] [id number] [address] [place] [address] 17 May, 2015 [facility] [address] [id number] [address] [place] [address] May, [facility] [address] [id number] [address] [place] [address] Apr, [facility] [address] [id number] [address] [place] [address] Apr, Unspecified essential hypert ension 401.9 [facility] [address] [id number] [address] [place] [address] Apr, [facility] [address] [id number] [address] [place] [address] Apr, [facility] [address] [id number] [address] [place] [address] Apr, [facility] [address] [id number] [address] [place] [phone] Apr, [facility] [address] [id number] [address] [place] [address] Apr, [facility] [address] [id number] [address] [place] [address] Apr, [facility] [address] [id number] [address] [place] [address] March, Unspecified essential hypert ension 401.9 [facility] [address] [id number] [address] [place] [phone] March, [facility] [address] [id number] [address] [place] [phone] March, [facility] [address] [id number] [address] [place] [address] 14 Feb, 2015 [facility] [address] [id number] [address] [place] [address], [place] [address] 13 Feb, 2015 [facility] [address] [id number] [address] [place] [address], [place] [address] Jan, [facility] [address] [id number] [address] [place] [address], [place] [address] Jan, [facility] [address] [id number] [address] [place] [address], [place] [address] Jan, [facility] [address] [id number] [address] [place] [address], [place] [address] Jan, [facility] [address] [id number] [address] [place] [address], [place] [address] Jan, [facility] [address] [id number] [address] [place] [address], [place] [address] Jan, [facility] [address] [id number] [address] [place] [address], [place] [address] Jan, [facility] [address] [id number] [address] [place] [address], [place] [address] 16 Dec, 2014 [facility] [address] [id number] [address] [place] [address], [place] [address] 16 Dec, 2014 [facility] [address] [id number] [address] [place] [address], [place] [address] Dec, [facility] [address] [id number] [address] [place] [address], [place] [address] Nov, [facility] [address] [id number] [address] [place] [address], [place] [address] Nov, [facility] [address] [id number] [address] [place] [address], [place] [address] Oct, [facility] [address] [id number] [address] [place] [address], [place] [address] 16 Oct, 2014 [facility] [address] [id number] [address] [place] [address], [place] [address] Oct, [facility] [address] [id number] [address] [place] [address], [place] [address] Oct, [facility] [address] [id number] [address] [place] [address], [place] [address] Oct, [facility] [address] [id number] [address] [place] [address], [place] [address] Oct, [facility] [address] [id number] [address] [place] [address], [place] [address] Oct, [facility] [address] [id number] [address] [place] [address], [place] [address] Oct, [facility] [address] [id number] [address] [place] [address], [place] [address] Sep, [facility] [address] [id number] [address] [place] [address], [place] [address] Sep, [facility] [address] [id number] [address] [place] [address], [place] [address] Sep, [facility] [address] [id number] [address] [place] [address], [place] [address] Sep, [facility] [address] [id number] [address] [place] [address], [place] [address] Sep, [facility] [address] [id number] [address] [place] [address] Sep, [facility] [address] [id number] [address] [place] [address] Aug, [facility] [address] [id number] [address] [place] [address], [place] [address] Aug, [facility] [address] [id number] [address] [place] [address], [place] [address] Aug, [facility] [address] [id number] [address] [place] [address], [place] [address] Aug, [facility] [address] [id number] [address] [place] [address], [place] [address] Aug, [facility] [address] [id number] [address] [place] [address], [place] [address] Aug, [facility] [address] [id number] [address] [place] [address], [place] [address] Aug, [facility] [address] [id number] [address] [place] [address], [place] [address] Aug, [facility] [address] [id number] [address] [place] [address], [place] [address] Aug, [facility] [address] [id number] [address] [place] [address], [place] [address] Aug, [facility] [address] [id number] [address] [place] [address], [place] [address] Jul, [facility] [address] [id number] [address] [place] [address], [place] [address] Jul, [facility] [address] [id number] [address] [place] [address], [place] [address] Jul, [facility] [address] [id number] [address] [place] [address], [place] [address] Jul, [facility] [address] [id number] [address] [place] [address], [place] [address] Jul, [facility] [address] [id number] [address] [place] [address], [place] [address] Jul, [facility] [address] [id number] [address] [place] [address], [place] [address] Jun, [facility] [address] [id number] [address] [place] [address], [place] [address] Jun, [facility] [address] [id number] [address] [place] [address], [place] [address] Jun, [facility] [address] [id number] [address] [place] [address], [place] [address] Jun, [facility] [address] [id number] [address] [place] [address], [place] [address] Jun, [facility] [address] [id number] [address] [place] [address], [place] [address] Jun, [facility] [address] [id number] [address] [place] [address], [place] [address] May, [facility] [address] [id number] [address] [place] [address], [place] [address] May, [facility] [address] [id number] [address] [place] [address], [place] [address] May, [facility] [address] [id number] [address] [place] [address], [place] [address] May, [facility] [address] [id number] [address] [place] [address], [place] [address] May, [facility] [address] [id number] [address] [place] [address], [place] [address] Apr, [facility] [address] [id number] [address] [place] [address], [place] [address] Apr, [facility] [address] [id number] [address] [place] [address], [place] [address] Apr, [facility] [address] [id number] [address] [place] [address], [place] [address] Apr, [facility] [address] [id number] [address] [place] [address], [place] [address] March, [facility] [address] [id number] [address] [place] [address], [place] [address] March, [facility] [address] [id number] [address] [place] [address], [place] [address] March, [facility] [address] [id number] [address] [place] [address], [place] [address] March, [facility] [address] [id number] [address] [place] [address], [place] [address] March, [facility] [address] [id number] [facility] [place] [address] March, [facility] [address] [id number] [address] [place] [address], [place] [address] Feb, [facility] [address] [id number] [address] [place] [address], [place] [address] Feb, [facility] [address] [id number] [address] [place] [address], [place] [address] Feb, [facility] [address] [id number] [address] [place] [address], [place] [address] Feb, [facility] [address] [address] [id number] [address] [place] [address], [place] [address] Feb, [facility] [address] [id number] [address] [place] [address], [place] [address] Feb, [facility] [address] [id number] [address] [place] [address], [place] [address] Feb, [facility] [address] [id number] [address] [place] [address], [place] [address] Feb, [facility] [address] [id number] [address] [place] [address], [place] [address] Jan, [facility] [address] [id number] [address] [place] [address], [place] [address] Jan, [facility] [address] [id number] [address] [place] [address], [place] [address] Jan, [facility] [address] [id number] [address] [place] [address], [place] [address] Jan, [facility] [address] [id number] [address] [place] [address], [place] [address] Jan, [facility] [address] [id number] [address] [place] [address], [place] [address] Jan, [facility] [address] [id number] [facility] [place] [address] 11 Dec, 2013 [facility] [address] [id number] [address] [place] [address], [place] [address] Dec, [facility] [address] [id number] [address] [place] [address], [place] [address] Nov, [facility] [address] [id number] [address] [place] [address], [place] [address] Nov, [facility] [address] [id number] [address] [place] [address], [place] [address] Nov, [facility] [address] [id number] [address] [place] [address], [place] [address] Nov, [facility] [address] [id number] [address] [place] [address], [place] [address] Nov, [facility] [address] [id number] [address] [place] [address], [place] [address] Nov, [facility] [address] [id number] [address] [place] [address], [place] [address] Nov, [facility] [address] [id number] [address] [place] [address], [place] [address] Nov, [facility] [address] [id number] [address] [place] [address], [place] [address] Nov, [facility] [address] [id number] [address] [place] [address], [place] [address] Nov, [facility] [address] [id number] [address] [place] [address], [place] [address] Nov, [facility] [address] [id number] [address] [place] [address], [place] [address] Nov, [facility] [address] [id number] [address] [place] [address], [place] [address] Nov, [facility] [address] [id number] [address] [place] [address], [place] [address] Nov, [facility] [address] [id number] [address] [place] [id number] Nov, [facility] [address] [id number] [address] [place] [id number] Oct, [facility] [address] [id number] [address] [place] [id number] Oct, [facility] [address] [id number] [address] [place] [id number] Oct, [facility] [address] [id number] [address] [place] [id number] Oct, [facility] [address] [id number] [address] [place] [id number] Oct, [facility] [address] [id number] [address] [place] [id number] Oct, [facility] [address] [id number] [address] [place] [id number] Oct, [facility] [address] [id number] [address] [place] [id number] Oct, [facility] [address] [id number] [address] [place] [id number] Oct, [facility] [address] [id number] [address] [place] [id number] Aug, [facility] [address] [id number] [address] [place] [id number] Aug, IMMUNIZATIONS No Known Immunizations SOCIAL HISTORY Never Assessed REASON FOR VISIT Controlled Med Refill PLAN OF CARE VITAL SIGNS MEDICATIONS Medication Instructions Dosage Frequency Start Date End Date Duration S servandous Clonazepam 0.5 MG Orally Once a day 1 tablet as needed for anxiety 24h Feb, 28 days Active MS Contin 30 MG Orally every 12 hrs 1 tablet 12h May, 28 days Active MS Contin 15 MG Orally every 12 hrs 1 tablet 12h May, 28 days Active Oxycodone HCl 10 mg Orally every 6 hrs 1 tablet as needed 6h May, 28 days Active Clonazepam 1 MG Orally Once a day at HS 1 tablet Sep, Active RESULTS No Results PROCEDURES No Known procedures INSTRUCTIONS MEDICATIONS ADMINISTERED No Known Medications MEDICAL (GENERAL) HISTORY Type Description Date Medical History hypertension Medical History asthma Medical History Arthritis Medical History Hypoglycemia Medical History Heart Cath 11/05/2013 Medical History herniated disc--Seen by Dr. Troy Michelle pain specialist in [place], [place] Medical History Chronic low back pain [...]
--- OUTSIDE RECORDS SUMMARY | 2020-06-19 02:23 | XMS REPORT ---
Author Author Mahsa ROBERTS Organization [facility] Address [address] [place] [address] Care Team Providers Care Pediatric Hospitalist Name Role Phone ARMANDONYASIA DIAZY Unavailable PROBLEMS Type Condition ICD9-CM Code YBR80-[place] Code Onset Dates Condition S tatus SNOMED Code Problem Chronic pain syndrome G89.4 Active 391017063 Problem Other constipation K59.09 Active 1 [id number] Problem Anxiety F41.9 Active 38741126 Problem Primary insomnia F51.01 Active 193 737246 Problem Atherosclerosis of [place] co ronary artery of [place] heart without angina pectoris I25.10 Active [id number] Problem Essential hypertension I10 Active 29491507 Problem Hyperlipidemia, unspecified hyperlipidemia E78.5 Active 13049565 Problem Major depressive disorder, recurrent episode, un specified severity F33.9 Active 27929307 Problem Allergic rhinitis J30.9 Active 61 184870 Problem Fibromyalgia M79.7 Active 6518858 7 Problem GERD (gastroesophageal reflux disease) K21.9 Active 428575092 Problem Degenerative disc disease, thoracic M51.34 Active 05320811 Problem Bilateral low back pain, with sciatica presence unspecifie d M54.5 Active 441901505 Problem Moderate episode of recurrent major depressive disorder F33.1 Active 306397390 Problem B12 deficiency E53.8 Active 02648 4004 Problem Chronic obstructive pulmonary disease, unspecified COPD ty pe J44.9 Active 15879007 Problem CKD (chronic kidney disease) stage 3, GFR 30-59 ml/min N18.3 Active 600814486 Problem Cannabis abuse F12.10 Active 50782 009 Problem Degenerative disc disease, cervical M50.30 Active 31182158 ALLERGIES No Information ENCOUNTERS Encounter Location Date Diagnosis [facility] [address] [facility] [id number] [address] [place] [address] Apr, Essential hypertension I10 ; CKD (chronic kidney disease) stage 3, GFR 30-59 ml/min N18.3 ; Hyperlipidemia, unspecified hyperlipidemia E78.5 and Moderate episode of recurrent major depressive disorder F33.1 [place] [address] [address] 08 Feb, 2020 CKD (chronic kidney disease) stage 3, GFR 30-59 ml/min N18.3 and B12 deficiency E53.8 [place] [address] [address] 07 Feb, 2020 CKD (chronic kidney disease) stage 3, GFR 30-59 ml/min N18.3 and B12 deficiency E53.8 [place] [address] [address] Jan, [place] [address] [place] [id number] [place] [address] Nov, [place] [address] [address] Oct, Moderate episode of recurren t major depressive disorder F33.1 ; Chronic obstructive pulmonary disease, unspecified COPD type J44.9 ; CKD (chronic kidney disease) stage 3, GFR 30-59 ml/min N18.3 ; Essential hypertension I10 and Possible exposure to STD Z20.2 [place] [address] [place] [id number] [place] [address] Oct, Essential hypertension I10 [place] [address] [address] Oct, [place] [address] [place] [id number] [place] [address] Sep, Essential hypertension I10 [place] [address] [address] Sep, [place] [address] [place] [id number] [place] [address] Sep, [place] [address] [address] Sep, [place] [address] [place] [id number] [place] [address] Aug, Essential hypertension I10 [place] [address] [place] [id number] [place] [address] Aug, Essential hypertension I10 [place] [address] [place] [id number] [place] [address] Jul, Allergic rhinitis J30.9 ; CK D (chronic kidney disease) stage 3, GFR 30-59 ml/min N18.3 ; Essential hypertension I10 and Moderate episode of recurrent major depressive disorder F33.1 [place] [address] [address] Jul, Elevated platelet count R79. 89 ; B12 deficiency E53.8 ; Hyperlipidemia, unspecified hyperlipidemia E78.5 and CKD (chronic kidney disease) stage 3, GFR 30-59 ml/min N18.3 [place] [address] [place] [id number] [place] [address] Apr, B12 deficiency E53.8 [place] [address] [place] [id number] [place] [address] Jan, Periumbilical hernia K42.9 ; CKD (chronic kidney disease) stage 3, GFR 30-59 ml/min N18.3 ; Essential hypertension I10 ; GERD (gastroesophageal reflux disease) K21.9 ; Hyperlipidemia, unspecified hyperlipidemia E78.5 and Major depressive disorder, recurrent episode, unspecified severity F33.9 [place] [address] [place] [id number] [place] [address] Dec, Anxiety F41.9 [place] [address] [place] [id number] [place] [address] Nov, Elevated platelet count R79. 89 [place] [address] [address] [place] [id number] [place] [address] Nov, [place] [address] [place] [id number] [place] [address] Nov, Elevated platelet count R79. 89 [place] [address] [facility] [id number] [address] [place] [address] Nov, Anxiety F41.9 [place] [address] [address] [facility] [id number] [address] [place] [address] 14 Nov, 2018 Bilateral low back pain, wit h sciatica presence unspecified M54.5 ; Cervicalgia M54.2 ; Degenerative disc disease, cervical M50.30 and Degenerative disc disease, thoracic M51.34 [place] [address] [place] [id number] [place] [address] Nov, Chronic pain syndrome G89.4 and Bilateral low back pain, with sciatica presence unspecified M54.5 [place] [address] [place] [id number] [place] [address] Oct, Umbilical hernia without obs truction and without gangrene K42.9 [place] [address] [address] [place] [id number] [place] [address] Oct, Chronic pain syndrome G89.4 [place] [address] [address] Oct, Chronic pain syndrome G89.4 and Anxiety F41.9 [place] [address] [place] [id number] [place] [address] Oct, Elevated platelet count R79. 89 [place] [address] [address] [place] [id number] [place] [address] 10 Oct, 2018 CKD (chronic kidney disease) stage 3, GFR 30-59 ml/min N18.3 ; Other chest pain R07.89 ; Acute midline thoracic back pain M54.6 ; Essential hypertension I10 and History of osteoporosis Z87.39 [place] [address] [place] [id number] [place] [address] 29 Sep, 2018 Chronic pain syndrome G89.4 [place] [address] [place] [id number] [place] [address] Sep, [place] [address] [address] Sep, Anxiety F41.9 and Chronic pa in syndrome G89.4 [place] [address] [address] [place] [id number] [place] [address] Aug, Chronic pain syndrome G89.4 and Anxiety F41.[address] [address] Aug, [place] [address] [address] Aug, Cannabis abuse F12.10 and Co ntrolled substance agreement terminated Z91.14 [place] [id number] [place] [address] 28 Jul, 2018 Chronic pain syndrome G89.4 ; Bilateral low back pain, with sciatica presence unspecified M54.5 ; Chronic prescription opiate use Z79.899 ; Essential hypertension I10 ; Hyperlipidemia, unspecified hyperlipidemia E78.5 ; CKD (chronic kidney disease) stage 3, GFR 30-59 ml/min N18.3 and Allergic rhinitis J30.[address] [address] 20 Jul, 2018 Chronic pain syndrome G89.4 and Anxiety F41.[address] [address] Jul, Screening for breast cancer Z12.31 and Major depressive disorder, recurrent episode, unspecified severity F33.9 [place] [address] [address] [place] [id number] [place] [address] Jun, Chronic pain syndrome G89.4 and Anxiety F41.9 [place] [address] [address] [place] [id number] [place] [address] May, Chronic pain syndrome G89.4 and Anxiety F41.[address] [address] Apr, Anxiety F41.9 [place] [address] [address] [facility] [id number] [address] [place] [address] Apr, Chronic prescription opiate use Z79.899 ; Chronic pain syndrome G89.4 ; Essential hypertension I10 ; Allergic rhinitis J30.9 and CKD (chronic kidney disease) stage 3, GFR 30-59 ml/min N18.3 [place] [address] [address] [place] [id number] [place] [address] Apr, [place] [address] [place] [id number] [place] [address] March, Anxiety F41.9 and Chronic pa in syndrome G89.4 [place] [address] [address] [place] [id number] [place] [address] March, CKD (chronic kidney disease) stage 3, GFR 30-59 ml/min N18.3 ; B12 deficiency E53.8 and Hyperlipidemia, unspecified hyperlipidemia E78.5 [place] [address] [address] [place] [id number] [place] [address] March, Anxiety F41.9 and Chronic pa in syndrome G89.4 [place] [address] [address] [facility] [id number] [address] [place] [address] Feb, Anxiety F41.9 and Chronic pa in syndrome G89.4 [place] [address] [address] [facility] [id number] [address] [place] [address] Jan, B12 deficiency E53.8 [place] [address] [address] [facility] [id number] [address] [place] [address] Jan, [place] [address] [place] [id number] [place] [address] Jan, Anxiety F41.9 ; Chronic pain syndrome G89.4 and Essential hypertension I10 [place] [address] [address] [place] [id number] [place] [address] Jan, CKD (chronic kidney disease) stage 3, [...] Subacromial bursitis of right shoulder joint M75.51 [place] [address] [address] [place] [id number] [place] [address] Dec, Essential hypertension I10 [place] [address] [address] Dec, Chronic pain syndrome G89.4 [place] [address] [place] [id number] [place] [address] Dec, Chronic pain syndrome G89.4 [place] [address] [address] Nov, [place] [address] [address] Nov, Chronic pain syndrome G89.4 and Anxiety F41.9 [place] [address] [address] Oct, Chronic pain syndrome G89.4 ; Other constipation K59.09 and Chronic prescription opiate use Z79.899 [place] [address] [address] [place] [id number] [place] [address] Oct, Chronic pain syndrome G89.4 and Anxiety F41.9 [place] [address] [address] [place] [id number] [place] [address] Sep, Essential hypertension I10 [place] [address] [place] [id number] [place] [address] Sep, Chronic pain syndrome G89.4 and Anxiety F41.9 [place] [address] [address] Aug, Chronic pain syndrome G89.4 and Anxiety F41.9 [place] [address] [address] [place] [id number] [place] [address] Jul, Essential hypertension I10 [facility] [address] [facility] [id number] [address] [place] [address] 22 Jul, 2017 Chronic obstructive pulmonar y disease, unspecified COPD type J44.9 [place] [address] [address] [place] [id number] [place] [address] Jul, Chronic pain syndrome G89.4 and Anxiety F41.9 [place] [address] [address] [place] [id number] [place] [address] 13 Jul, 2017 Chronic pain syndrome G89.4 ; Essential hypertension I10 ; Fibromyalgia M79.7 ; CKD (chronic kidney disease) stage 3, GFR 30-59 ml/min N18.3 ; Subacromial bursitis, right M75.51 and Goals of care, co unseling/discussion Z71.89 [place] [address] [address] [place] [id number] [place] [address] Jun, Chronic pain syndrome G89.4 and Anxiety F41.9 [place] [address] [address] [place] [id number] [place] [address] May, Chronic pain syndrome G89.4 and Anxiety F41.9 [place] [address] [address] [place] [id number] [place] [address] Apr, Chronic pain syndrome G89.4 and Anxiety F41.9 [place] [address] [address] [place] [id number] [place] [address] 14 Apr, 2017 Drug induced constipation K5 9.03 ; Chronic pain syndrome G89.4 and CKD (chronic kidney disease) stage 3, GFR 30-59 ml/min N18.3 [facility] [address] [place] [id number] [place] [address] 02 Apr, 2017 Chronic pain syndrome G89.4 and Anxiety F41.9 [facility] [address] [facility] [id number] [address] [place] [address] March, Chronic pain syndrome G89.4 and Anxiety F41.9 [facility] [address] [facility] [id number] [address] [place] [address] March, Decreased GFR R94.4 [facility] [address] [facility] [id number] [address] [place] [address] Feb, [facility] [address] [facility] [id number] [address] [place] [address] Feb, Chronic pain syndrome G89.4 and Anxiety F41.9 [place] [address] [address] [place] [id number] [place] [phone] Jan, Decreased GFR R94.4 [place] [address] [place] [id number] [place] [address] Jan, Decreased GFR R94.4 [place] [address] [place] [id number] [place] [address] Jan, Allergic rhinitis J30.9 ; Es sential hypertension I10 ; Major depressive disorder, recurrent episode, unspecified severity F33.9 and Primary insomnia F51.01 [place] [address] [address] [place] [id number] [place] [address] Jan, Acute right-sided thoracic b ack pain M54.6 ; Subacromial bursitis of right shoulder joint M75.51 ; Chronic pain syndrome G89.4 and Anxiety F41.9 [facility] [address] [facility] [id number] [address] [place] [address] Jan, Decreased GFR R94.4 [place] [address] [place] [id number] [place] [address] Dec, Decreased GFR R94.4 [place] [address] [address] [facility] [id number] [address] [place] [address] Dec, Decreased GFR R94.4 [place] [address] [place] [id number] [place] [address] Dec, Decreased GFR R94.4 [place] [address] [place] [id number] [place] [address] Dec, Decreased GFR R94.4 [place] [address] [place] [id number] [place] [address] Dec, Anxiety F41.9 and Bilateral low back pain, with sciatica presence unspecified M54.5 [place] [address] [address] Dec, Thrombocytosis D47.3 ; Hyper lipidemia, unspecified hyperlipidemia E78.5 ; Need for hepatitis C screening test Z11.59 and B12 deficiency E53.8 [place] [address] [address] Nov, Need for hepatitis C screeni ng test Z11.59 [place] [address] [address] Nov, Anxiety F41.9 and Bilateral low back pain, with sciatica presence unspecified M54.5 [place] [address] [address] Oct, Bilateral low back pain, wit h sciatica presence unspecified M54.5 ; Chronic prescription opiate use Z79.899 ; Anxiety F41.9 ; Essential hypertension I10 ; Hyperlipidemia, unspecified hyperlipidemia E78.5 ; Health care maintenance Z00.00 and Thrombocytosis D47.3 [place] [address] [place] [id number] [place] [address] Sep, [place] [address] [address] Sep, [place] [address] [place] [id number] [place] [address] Aug, [place] [address] [address] Jul, B12 deficiency E53.8 [facility] [address] [facility] [id number] [address] [place] [address] Jul, [place] [address] [address] [facility] [id number] [address] [place] [address] Jul, Essential hypertension I10 ; Chronic pain syndrome G89.4 ; Anxiety F41.9 ; Screening for breast cancer Z12.39 ; Atherosclerosis of [place] coronary artery of [place] heart without angina pectoris I25.10 ; Major depressive disorder, recurrent episode, unspecified severity F33.9 ; Primary insomnia F51.01 and Allergic rhinitis J30.9 [place] [address] [address] [facility] [id number] [address] [place] [address] Jun, [facility] [address] [facility] [id number] [address] [place] [address] Jun, Leg wound, right, initial en counter S81.801A and Encounter for immunization Z23 [place] [address] [address] [place] [id number] [address] [place] [address] Jun, Open wound of right ear, uns pecified open wound type, initial encounter S01.301A [place] [address] [address] [facility] [id number] [address] [place] [address] May, B12 deficiency E53.8 [place] [address] [address] [facility] [id number] [address] [place] [address] May, [place] [address] [facility] [id number] [address] [place] [address] May, [facility] [address] [facility] [id number] [address] [place] [address] May, Chronic pain syndrome G89.4 ; Chronic prescription opiate use Z79.899 ; Allergic rhinitis J30.9 ; Essential hypertension I10 and Non-healing skin lesion L98.9 [place] [address] [address] [place] [id number] [place] [address] Apr, [place] [address] [place] [id number] [place] [address] March, [facility] [address] [address] Feb, [facility] [address] [place] [id number] [place] [address] Feb, [facility] [address] [address] Feb, Chronic pain syndrome G89.4 ; Anxiety F41.9 ; B12 deficiency E53.8 ; Allergic rhinitis J30.9 ; Fibromyalgia M79.7 ; Actinic keratosis L57.0 ; Skin rash R21 ; Open wound of right ear, unspecified open wound type, initial encounter S01.301A ; Subacromial bursitis, right M75.51 ; GERD (gastroesophageal reflux disease) K21.9 and Chronic obstructive pulmonary disease, unspecified COPD type J44.9 [facility] [address] [place] [address] 30 Jan, 2016 [facility] [address] [place] [id number] [place] [address] Jan, Essential hypertension I10 [facility] [address] [place] [id number] [place] [address] Jan, [facility] [address] [place] [id number] [place] [address] Jan, [facility] [address] [place] [address] Jan, [facility] [address] [place] [id number] [address] [place] [address] Dec, [facility] [address] [place] [id number] [place] [address] Dec, Essential hypertension I10 [facility] [address] [place] [address] Dec, [facility] [address] [place] [id number] [place] [address] 12 Dec, 2015 B12 deficiency E53.8 and Ess ential hypertension I10 [facility] [address] [place] [id number] [place] [address] Dec, [facility] [address] [address] Nov, Right shoulder pain M25.511 [facility] [address] [address] Nov, Right shoulder pain M25.511 [facility] [address] [address] Nov, Essential hypertension I10 a nd B12 deficiency E53.8 [facility] [address] [address] Nov, Major depressive disorder, r ecurrent episode, unspecified severity F33.9 ; Anxiety F41.9 ; Chronic pain syndrome G89.4 ; Essential hypertension I10 ; Hyperlipidemia, unspecified hyperlipidemia E78.5 ; Chronic prescription opiate use Z79.899 ; Allergic rhinitis J30.9 ; B12 deficiency E53.8 and Right shoulder pain M25.511 [facility] [address] [place] [id number] [place] [address] Oct, [facility] [address] [address] Oct, [facility] [address] [address] Sep, [facility] [address] [address] Sep, [facility] [address] [address] Aug, [facility] [address] [address] Aug, [facility] [address] [id number] [address] [place] [address] Aug, [facility] [address] [id number] [address] [place] [address] Aug, Other constipation K59.09 ; Hyperlipidemia, unspecified hyperlipidemia E78.5 ; Essential hypertension I10 ; Primary insomnia F51.01 ; Anxiety F41.9 ; Chronic pain syndrome G89.4 ; Right shoulder pain M25.511 and Acute cystitis without hematuria N30.00 [facility] [address] [id number] [address] [place] [address] 16 Jul, 2015 [facility] [address] [id number] [address] [place] [address] Jul, [facility] [address] [facility] [id number] [address] [place] [address] Jun, [facility] [address] [id number] [address] [place] [address] Jun, [facility] [address] [id number] [address] [place] [address] Jun, [facility] [address] [id number] [address] [place] [address] May, [facility] [address] [facility] [id number] [address] [place] [address] May, Other chronic pain 338.29 ; Hypertension 401.9 and Constipation due to opioid therapy 564.09 [facility] [address] [id number] [address] [place] [address] May, [facility] [address] [id number] [address] [place] [address] May, [facility] [address] [facility] [id number] [address] [place] [address] Apr, [facility] [address] [facility] [id number] [address] [place] [address] Apr, Unspecified essential hypert ension 401.9 [facility] [address] [id number] [address] [place] [address], [place] [address] 16 Apr, 2015 [facility] [address] [id number] [address] [place] [address] 16 Apr, 2015 [facility] [address] [id number] [address] [place] [address] 16 Apr, 2015 [facility] [address] [id number] [address] [place] [address] Apr, [facility] [address] [id number] [address] [place] [address] Apr, [facility] [address] [id number] [address] [place] [id number] Apr, [facility] [address] [id number] [address] [place] [id number] March, Unspecified essential hypert ension 401.9 [facility] [address] [id number] [address] [place] [id number] March, [facility] [address] [id number] [address] [place] [id number] March, [facility] [address] [id number] [address] [place] [id number] Feb, [facility] [address] [id number] [address] [place] [id number] Feb, [facility] [address] [id number] [address] [place] [id number] Jan, [facility] [address] [id number] [address] [place] [id number] Jan, [facility] [address] [id number] [address] [place] [id number] 17 Jan, 2015 [facility] [address] [id number] [address] [place] [address] 17 Jan, 2015 [facility] [address] [id number] [address] [place] [address], [place] [address] 13 Jan, 2014 [facility] [address] [id number] [address] [place] [address], [place] [address] 02 Jan, 2014 [facility] [address] [id number] [address] [place] [address], [place] [address] 02 Jan, 2014 [facility] [address] [id number] [address] [place] [address], [place] [address] 16 Dec, 2014 [facility] [address] [id number] [address] [place] [address], [place] [address] 16 Dec, 2014 [facility] [address] [id number] [address] [place] [address], [place] [address] 13 Dec, 2014 [facility] [address] [id number] [address] [place] [address], [place] [address] 16 Nov, 2014 [facility] [address] [id number] [address] [place] [address], [place] [address] Nov, [facility] [address] [id number] [address] [place] [address], [place] [address] Oct, [facility] [address] [id number] [address] [place] [address], [place] [address] Oct, [facility] [address] [id number] [address] [place] [address], [place] [address] Oct, [facility] [address] [id number] [address] [place] [address], [place] [address] Oct, [facility] [address] [id number] [address] [place] [address], [place] [address] Oct, [facility] [address] [id number] [address] [place] [address], [place] [address] Oct, [facility] [address] [id number] [address] [place] [address], [place] [address] Oct, [facility] [address] [id number] [address] [place] [address], [place] [address] Oct, [facility] [address] [id number] [address] [place] [address], [place] [address] Sep, [facility] [address] [id number] [address] [place] [address], [place] [address] Sep, [facility] [address] [id number] [address] [place] [address], [place] [address] Sep, [facility] [address] [id number] [address] [place] [address], [place] [address] Sep, [facility] [address] [id number] [address] [place] [address], [place] [address] Sep, [facility] [address] [id number] [address] [place] [address], [place] [address] Sep, [facility] [address] [id number] [address] [place] [address], [place] [address] Aug, [facility] [address] [id number] [address] [place] [address], [place] [address] Aug, [facility] [address] [id number] [address] [place] [address], [place] [address] Aug, [facility] [address] [id number] [address] [place] [address], [place] [address] Aug, [facility] [address] [id number] [address] [place] [address], [place] [address] Aug, [facility] [address] [id number] [address] [place] [address], [place] [address] Aug, [facility] [address] [id number] [address] [place] [address], [place] [address] Aug, [facility] [address] [id number] [address] [place] [address], [place] [address] Aug, [facility] [address] [id number] [address] [place] [address], [place] [address] Aug, [facility] [address] [id number] [address] [place] [address], [place] [address] Aug, [facility] [address] [id number] [facility] [place] [address] Jul, [facility] [address] [id number] [address] [place] [address], [place] [address] Jul, [facility] [address] [id number] [address] [place] [address], [place] [address] Jul, [facility] [address] [id number] [address] [place] [address], [place] [address] Jul, [facility] [address] [id number] [address] [place] [address], [place] [address] Jul, [facility] [address] [id number] [address] [place] [address], [place] [address] Jul, [facility] [address] [id number] [address] [place] [address], [place] [address] Jun, [facility] [address] [id number] [address] [place] [address], [place] [address] Jun, [facility] [address] [id number] [address] [place] [address], [place] [address] Jun, [facility] [address] [id number] [address] [place] [address], [place] [address] Jun, [facility] [address] [id number] [address] [place] [address], [place] [address] Jun, [facility] [address] [id number] [address] [place] [address], [place] [address] Jun, [facility] [address] [id number] [address] [place] [address], [place] [address] May, [facility] [address] [id number] [address] [place] [address], [place] [address] May, [facility] [address] [id number] [address] [place] [address], [place] [address] May, [facility] [address] [id number] [facility] [place] [address] May, [facility] [address] [id number] [facility] [place] [address] May, [facility] [address] [id number] [address] [place] [address], [place] [address] Apr, [facility] [address] [id number] [address] [place] [address], [place] [address] Apr, [facility] [address] [id number] [address] [place] [address], [place] [address] Apr, [facility] [address] [id number] [address] [place] [address], [place] [address] Apr, [facility] [address] [id number] [address] [place] [address], [place] [address] March, [facility] [address] [id number] [address] [place] [address], [place] [address] March, [facility] [address] [id number] [address] [place] [address], [place] [address] March, [facility] [address] [id number] [address] [place] [address], [place] [address] March, [facility] [address] [id number] [address] [place] [address], [place] [address] March, [facility] [address] [id number] [address] [place] [address], [place] [address] March, [facility] [address] [id number] [address] [place] [address], [place] [address] Feb, [facility] [address] [id number] [address] [place] [address], [place] [address] Feb, [facility] [address] [id number] [address] [place] [address], [place] [address] Feb, [facility] [address] [id number] [address] [place] [address], [place] [address] Feb, [facility] [address] [id number] [facility] [place] [address] Feb, [facility] [address] [id number] [address] [place] [address], [place] [address] Feb, [facility] [address] [id number] [address] [place] [address], [place] [address] Feb, [facility] [address] [id number] [address] [place] [address], [place] [address] Feb, [facility] [address] [id number] [address] [place] [address], [place] [address] Jan, [facility] [address] [id number] [address] [place] [address], [place] [address] Jan, [facility] [address] [id number] [address] [place] [address], [place] [address] Jan, [facility] [address] [id number] [address] [place] [address], [place] [address] Jan, [facility] [address] [id number] [address] [place] [address], [place] [address] Jan, [facility] [address] [id number] [address] [place] [address], [place] [address] Jan, [facility] [address] [id number] [address] [place] [address], [place] [address] Dec, [facility] [address] [id number] [address] [place] [address], [place] [address] Dec, [facility] [address] [id number] [address] [place] [address], [place] [address] Nov, [facility] [address] [id number] [address] [place] [address], [place] [address] Nov, [facility] [address] [id number] [address] [place] [address], [place] [address] Nov, [facility] [address] [id number] [address] [place] [address], [place] [address] 10 Nov, 2013 [facility] [address] [id number] [address] [place] [address], [place] [address] Nov, [facility] [address] [id number] [address] [place] [address], [place] [address] Nov, [facility] [address] [id number] [address] [place] [address], [place] [address] Nov, [facility] [address] [id number] [address] [place] [address], [place] [address] Nov, [facility] [address] [id number] [address] [place] [address], [place] [address] Nov, [facility] [address] [id number] [address] [place] [address], [place] [address] Nov, [facility] [address] [id number] [address] [place] [address], [place] [address] Nov, [facility] [address] [id number] [address] [place] [address], [place] [address] Nov, [facility] [address] [id number] [address] [place] [address], [place] [address] Nov, [facility] [address] [id number] [address] [place] [address], [place] [address] Nov, [facility] [address] [id number] [address] [place] [address], [place] [address] Nov, [facility] [address] [id number] [address] [place] [address], [place] [address] Oct, [facility] [address] [id number] [address] [place] [address], [place] [address] Oct, [facility] [address] [id number] [address] [place] [address], [place] [address] Oct, [facility] [address] [id number] [address] [place] [address], [place] [address] Oct, [facility] [address] [id number] [address] [place] [address] Oct, [facility] [address] [id number] [address] [place] [address] Oct, [facility] [address] [id number] [address] [place] [address] Oct, [facility] [address] [id number] [address] [place] [address] Oct, [facility] [address] [id number] [address] [place] [address] Oct, [facility] [address] [id number] [address] [place] [address] Aug, [facility] [address] [facility] [id number] [address] [place] [address] Aug, IMMUNIZATIONS No Known Immunizations SOCIAL HISTORY [...] by Dr. Troy Michelle pain specialist in [place], [place] Medical History Chronic low back pain [...]
--- OUTSIDE RECORDS SUMMARY | 2020-06-19 02:23 | XMS REPORT ---
Author Author Mahsa BUCHANAN Organization [facility] Address [address] [place] [address] Care Team Providers Care Braille Transcriber Name Role Phone BUCHANANTHIEN VegaELE Unavailable PROBLEMS Type Condition ICD9-CM Code OVF18-UL Code Onset Dates Condition S tatus SNOMED Code Problem Chronic prescription opiate use Z79.899 Active 951407628 Problem B12 deficiency E53.8 Active 59238 4004 Problem Bilateral low back pain, with sciatica presence unspecifie d M54.5 Active 748853326 Problem CKD (chronic kidney disease) stage 3, GFR 30-59 ml/min N18.3 Active 206735700 Problem Drug induced constipation K59.03 Acti ve [id number] Problem GERD (gastroesophageal reflux disease) K21.9 Active 810205486 Problem Allergic rhinitis J30.9 Active 61 603341 Problem Chronic obstructive pulmonary disease, unspecified COPD ty pe J44.9 Active 91003349 Problem Fibromyalgia M79.7 Active 8096663 7 Problem Chronic pain syndrome G89.4 Active 893346363 Problem Primary insomnia F51.01 Active 193 333654 Problem Other constipation K59.09 Active 1 14222802413180 Problem Atherosclerosis of hoh co ronary artery of hoh heart without angina pectoris I25.10 Active 6759840863049 Problem Major depressive disorder, recurrent episode, un specified severity F33.9 Active 21755660 Problem Anxiety F41.9 Active 24486202 Problem Hyperlipidemia, unspecified hyperlipidemia E78.5 Active 99350106 Problem Essential hypertension I10 Active 61148806 Problem Chronic prescription benzodiazepine use Z79.899 Active 257527879 ALLERGIES No Information ENCOUNTERS Encounter Location Date Diagnosis [facility] [address] [facility] [id number] [address] [place] [address] Apr, [facility] [address] [facility] [id number] [address] [place] [address] Apr, [place] [address] [address] March, Anxiety F41.9 and Chronic pa in syndrome G89.[address] [address] March, CKD (chronic kidney disease) stage 3, GFR 30-59 ml/min N18.3 ; B12 deficiency E53.8 and Hyperlipidemia, unspecified hyperlipidemia E78.[address] [address] March, Anxiety F41.9 and Chronic pa in syndrome G89.[address] [address] Feb, Anxiety F41.9 and Chronic pa in syndrome G89.[address] [address] Jan, B12 deficiency E53.[address] [address] Jan, [address] [address] Jan, Anxiety F41.9 ; Chronic pain syndrome G89.4 and Essential hypertension I10 [address] [address] Jan, CKD (chronic kidney disease) stage 3, [...] Subacromial bursitis of right shoulder joint M75.[address] [address] Dec, Essential hypertension I10 [facility] [address] [facility] [id number] [address] [place] [address] 15 Dec, 2017 Chronic pain syndrome G89.4 [facility] [address] [facility] [id number] [address] [place] [address] Dec, Chronic pain syndrome G89.4 [facility] [address] [place] [id number] [address] [place] [address] Nov, [facility] [address] [place] [id number] [address] [place] [address] Nov, Chronic pain syndrome G89.4 and Anxiety F41.9 [place] [address] [place] [id number] [address] Oct, Chronic pain syndrome G89.4 ; Other constipation K59.09 and Chronic prescription opiate use Z79.899 [facility] [address] [place] [address] Oct, Chronic pain syndrome G89.4 and Anxiety F41.9 [facility] [address] [place] [address] Sep, Essential hypertension I10 [facility] [address] [place] [id number] [address] [place] [address] 16 Sep, 2017 Chronic pain syndrome G89.4 and Anxiety F41.9 [facility] [address] [place] [id number] [address] [place] [address] Aug, Chronic pain syndrome G89.4 and Anxiety F41.9 [facility] [address] [facility] [id number] [address] [place] [address] Jul, Essential hypertension I10 [facility] [address] [place] [id number] [address] [place] [address] Jul, Chronic obstructive pulmonar y disease, unspecified COPD type J44.9 [facility] [address] [place] [id number] [address] [place] [address] Jul, Chronic pain syndrome G89.4 and Anxiety F41.9 [facility] [address] [facility] [id number] [address] [place] [address] Jul, Chronic pain syndrome G89.4 ; Essential hypertension I10 ; Fibromyalgia M79.7 ; CKD (chronic kidney disease) stage 3, GFR 30-59 ml/min N18.3 ; Subacromial bursitis, right M75.51 and Goals of care, co unseling/discussion Z71.89 [facility] [address] [facility] [id number] [address] [place] [address] Jun, Chronic pain syndrome G89.4 and Anxiety F41.9 [place] [address] [place] [id number] [address] [place] [address] May, Chronic pain syndrome G89.4 and Anxiety F41.9 [place] [address] [place] [id number] [address] [place] [address] Apr, Chronic pain syndrome G89.4 and Anxiety F41.9 [place] [address] [place] [id number] [address] [place] [address] Apr, Drug induced constipation K5 9.03 ; Chronic pain syndrome G89.4 and CKD (chronic kidney disease) stage 3, GFR 30-59 ml/min N18.3 [place] [address] [facility] [id number] [address] [place] [address] Apr, Chronic pain syndrome G89.4 and Anxiety F41.9 [place] [address] [facility] [id number] [address] [place] [address] March, Chronic pain syndrome G89.4 and Anxiety F41.9 [place] [address] [place] [id number] [address] [place] [address] March, Decreased GFR R94.4 [place] [address] [facility] [id number] [address] [place] [address] Feb, [place] [address] [place] [id number] [address] [place] [address] Feb, Chronic pain syndrome G89.4 and Anxiety F41.9 [facility] [address] [facility] [id number] [address] [place] [address] Jan, Decreased GFR R94.4 [facility] [address] [facility] [id number] [address] [place] [address] Jan, Decreased GFR R94.4 [facility] [address] [place] [id number] [address] [place] [address] Jan, Allergic rhinitis J30.9 ; Es sential hypertension I10 ; Major depressive disorder, recurrent episode, unspecified severity F33.9 and Primary insomnia F51.01 [facility] [address] [facility] [id number] [address] [place] [address] Jan, Acute right-sided thoracic b ack pain M54.6 ; Subacromial bursitis of right shoulder joint M75.51 ; Chronic pain syndrome G89.4 and Anxiety F41.9 [facility] [address] [facility] [id number] [address] [place] [address] Jan, Decreased GFR R94.4 [facility] [address] [facility] [id number] [address] [place] [address] Dec, Decreased GFR R94.4 [facility] [address] [place] [id number] [address] [place] [address] Dec, Decreased GFR R94.4 [facility] [address] [facility] [id number] [address] [place] [address] Dec, Decreased GFR R94.4 [facility] [address] [facility] [id number] [address] [place] [address] Dec, Decreased GFR R94.4 [facility] [address] [facility] [id number] [address] [place] [address] Dec, Anxiety F41.9 and Bilateral low back pain, with sciatica presence unspecified M54.5 [facility] [address] [place] [id number] [address] [place] [address] 03 Dec, 2016 Need for hepatitis C screeni ng test Z11.59 ; B12 deficiency E53.8 ; Hyperlipidemia, unspecified hyperlipidemia E78.5 and Thrombocytosis D47.3 [place] [address] [address] 13 Nov, 2016 Need for hepatitis C screeni ng test Z11.59 [place] [address] [address] 13 Nov, 2016 Anxiety F41.9 and Bilateral low back pain, with sciatica presence unspecified M54.5 [place] [address] [address] Oct, Bilateral low back pain, wit h sciatica presence unspecified M54.5 ; Chronic prescription opiate use Z79.899 ; Anxiety F41.9 ; Essential hypertension I10 ; Hyperlipidemia, unspecified hyperlipidemia E78.5 ; Health care maintenance Z00.00 and Thrombocytosis D47.3 [place] [address] [place] [id number] [address] [place] [address] Sep, [place] [address] [address] Sep, [place] [address] [address] Aug, [place] [address] [address] Jul, B12 deficiency E53.8 [place] [address] [place] [id number] [address] [place] [address] Jul, [place] [address] [address] Jul, Essential hypertension I10 ; Chronic pain syndrome G89.4 ; Anxiety F41.9 ; Screening for breast cancer Z12.39 ; Atherosclerosis of hoh coronary artery of hoh heart without angina pectoris I25.10 ; Major depressive disorder, recurrent episode, unspecified severity F33.9 ; Primary insomnia F51.01 and Allergic rhinitis J30.9 [facility] [address] [id number] [address] [place] [address] Jun, [facility] [address] [id number] [address] [place] [address] Jun, Leg wound, right, initial en counter S81.801A and Encounter for immunization Z23 [facility] [address] [id number] [address] [place] [address] Jun, Open wound of right ear, uns pecified open wound type, initial encounter S01.301A [facility] [address] [facility] [id number] [address] [place] [address] May, B12 deficiency E53.8 [facility] [address] [facility] [id number] [address] [place] [address] May, [facility] [address] [facility] [id number] [address] [place] [address] May, [facility] [address] [facility] [id number] [address] [place] [address] May, Chronic pain syndrome G89.4 ; Chronic prescription opiate use Z79.899 ; Allergic rhinitis J30.9 ; Essential hypertension I10 and Non-healing skin lesion L98.9 [facility] [address] [facility] [id number] [address] [place] [address] Apr, [facility] [address] [facility] [id number] [address] [place] [address] March, [facility] [address] [facility] [id number] [address] [place] [address] Feb, [facility] [address] [facility] [id number] [address] [place] [address] Feb, [facility] [address] [facility] [id number] [address] [place] [address] Feb, Chronic pain syndrome G89.4 ; Anxiety F41.9 ; B12 deficiency E53.8 ; Allergic rhinitis J30.9 ; Fibromyalgia M79.7 ; Actinic keratosis L57.0 ; Skin rash R21 ; Open wound of right ear, unspecified open wound type, initial encounter S01.301A ; Subacromial bursitis, right M75.51 ; GERD (gastroesophageal reflux disease) K21.9 and Chronic obstructive pulmonary disease, unspecified COPD type J44.9 [place] [id number] [address] 30 Jan, 2016 [place] [address] [address] Jan, Essential hypertension I10 [place] [address] [address] Jan, [place] [address] [address] Jan, [place] [address] [address] Jan, [facility] [address] [address] Dec, [place] [address] [address] Dec, Essential hypertension I10 [place] [address] [place] [address] Dec, [facility] [address] [address] Dec, B12 deficiency E53.8 and Ess ential hypertension I10 [place] [address] [place] [id number] [address] Dec, [place] [address] [place] [id number] [address] Nov, Right shoulder pain M25.511 [place] [address] [address] Nov, Right shoulder pain M25.511 [facility] [address] [place] [id number] [address] [place] [address] 18 Nov, 2015 Essential hypertension I10 a nd B12 deficiency E53.8 [facility] [address] [place] [id number] [address] [place] [address] 14 Nov, 2015 Major depressive disorder, r ecurrent episode, unspecified severity F33.9 ; Anxiety F41.9 ; Chronic pain syndrome G89.4 ; Essential hypertension I10 ; Hyperlipidemia, unspecified hyperlipidemia E78.5 ; Chronic prescription opiate use Z79.899 ; Allergic rhinitis J30.9 ; B12 deficiency E53.8 and Right shoulder pain M25.511 [place] [address] [place] [id number] [address] [place] [address] 17 Oct, 2015 [place] [address] [address] Oct, [place] [address] [place] [id number] [address] [place] [address] Sep, [place] [address] [address] Sep, [facility] [address] [address] Aug, [place] [address] [place] [id number] [address] [place] [address] Aug, [facility] [address] [place] [id number] [address] [place] [address] Aug, [facility] [address] [place] [id number] [address] [place] [address] Aug, Other constipation K59.09 ; Hyperlipidemia, unspecified hyperlipidemia E78.5 ; Essential hypertension I10 ; Primary insomnia F51.01 ; Anxiety F41.9 ; Chronic pain syndrome G89.4 ; Right shoulder pain M25.511 and Acute cystitis without hematuria N30.00 [place] [address] [place] [id number] [address] [place] [address] 16 Jul, 2015 [facility] [address] [id number] [address] [place] [address] 12 Jul, 2015 [facility] [address] [id number] [address] [place] [address] Jun, [facility] [address] [id number] [address] [place] [address] Jun, [facility] [address] [id number] [address] [place] [address] Jun, [facility] [address] [id number] [address] [place] [address] May, [facility] [address] [facility] [id number] [address] [place] [address] May, Other chronic pain 338.29 ; Hypertension 401.9 and Constipation due to opioid therapy 564.09 [facility] [address] [id number] [address] [place] [address] 17 May, 2015 [facility] [address] [id number] [address] [place] [address] May, [facility] [address] [id number] [address] [place] [address] Apr, [facility] [address] [id number] [address] [place] [address] 17 Apr, 2015 Unspecified essential hypert ension 401.9 [facility] [address] [id number] [address] [place] [address] 16 Apr, 2015 [facility] [address] [id number] [address] [place] [address] Apr, [facility] [address] [id number] [address] [place] [address] Apr, [facility] [address] [facility] [id number] [address] [place] [address] Apr, [facility] [place] [address] [id number] [address] [place] [address], [place] [address] 15 Apr, 2015 [facility] [address] [id number] [address] [place] [address], [place] [address] Apr, [facility] [address] [id number] [address] [place] [address], [place] [address] March, Unspecified essential hypert ension 401.9 [facility] [address] [id number] [address] [place] [address], [place] [address] March, [facility] [address] [id number] [address] [place] [address], [place] [address] March, [facility] [address] [id number] [address] [place] [address], [place] [address] Feb, [facility] [address] [id number] [address] [place] [address], [place] [address] Feb, [facility] [address] [id number] [address] [place] [address] Jan, [facility] [address] [id number] [address] [place] [address], [place] [address] Jan, [facility] [address] [id number] [address] [place] [address], [place] [address] Jan, [facility] [address] [id number] [address] [place] [address], [place] [address] Jan, [facility] [address] [id number] [address] [place] [address] Jan, [facility] [address] [id number] [address] [place] [address], [place] [address] Jan, [facility] [address] [id number] [address] [place] [address], [place] [address] Jan, [facility] [address] [id number] [address] [place] [address], [place] [address] 16 Dec, 2014 [facility] [address] [id number] [address] [place] [address], [place] [address] 16 Dec, 2014 [facility] [address] [id number] [address] [place] [address], [place] [address] 13 Dec, 2014 [facility] [address] [id number] [address] [place] [address], [place] [address] 16 Nov, 2014 [facility] [address] [id number] [address] [place] [address], [place] [address] Nov, [facility] [address] [id number] [address] [place] [address], [place] [address] 16 Oct, 2014 [facility] [address] [id number] [address] [place] [address], [place] [address] Oct, [facility] [address] [id number] [address] [place] [address], [place] [address] Oct, [facility] [address] [id number] [address] [place] [address], [place] [address] Oct, [facility] [address] [id number] [address] [place] [address], [place] [address] Oct, [facility] [address] [id number] [address] [place] [address], [place] [address] Oct, [facility] [address] [id number] [address] [place] [address], [place] [address] Oct, [facility] [address] [id number] [address] [place] [address], [place] [address] Oct, [facility] [address] [id number] [address] [place] [address], [place] [address] Sep, [facility] [address] [id number] [address] [place] [address], [place] [address] Sep, [facility] [address] [id number] [address] [place] [address], [place] [address] Sep, [facility] [address] [id number] [address] [place] [address], [place] [address] Sep, [facility] [address] [id number] [address] [place] [address], [place] [address] Sep, [facility] [place] [facility] [address] [id number] [address] [place] [address], [place] [address] Sep, [facility] [place] [address] [id number] [address] [place] [address], [place] [address] Aug, [facility] [place] [facility] [address] [id number] [address] [place] [address], [place] [address] Aug, [facility] [address] [id number] [address] [place] [address], [place] [address] Aug, [facility] [place] [address] [id number] [address] [place] [address], [place] [address] Aug, [facility] [address] [id number] [address] [place] [address], [place] [address] Aug, [facility] [address] [id number] [address] [place] [address], [place] [address] Aug, [facility] [address] [id number] [address] [place] [address], [place] [address] Aug, [facility] [place] [facility] [address] [id number] [address] [place] [address], [place] [address] Aug, [facility] [place] [facility] [address] [id number] [address] [place] [address], [place] [address] Aug, [facility] [place] [facility] [address] [id number] [address] [place] [address] Aug, [facility] [place] [facility] [address] [id number] [address] [place] [address], [place] [address] Jul, [facility] [place] [facility] [address] [id number] [address] [place] [address], [place] [address] Jul, [facility] [place] [facility] [address] [id number] [address] [place] [address], [place] [address] 12 Jul, 2014 [facility] [place] [facility] [address] [id number] [address] [place] [address] Jul, [facility] [address] [id number] [address] [place] [address], [place] [address] Jul, [facility] [place] [facility] [address] [id number] [address] [place] [address], [place] [address] Jul, [facility] [place] [facility] [address] [id number] [address] [place] [address], [place] [address] Jun, [facility] [place] [facility] [address] [id number] [address] [place] [address], [place] [address] Jun, [facility] [address] [id number] [address] [place] [address], [place] [address] Jun, [facility] [place] [facility] [address] [id number] [address] [place] [address], [place] [address] Jun, [facility] [address] [id number] [address] [place] [address], [place] [address] Jun, [facility] [place] [facility] [address] [id number] [address] [place] [address], [place] [address] Jun, [facility] [address] [id number] [address] [place] [address], [place] [address] May, [facility] [place] [facility] [address] [id number] [address] [place] [address], [place] [address] May, [facility] [place] [facility] [address] [id number] [address] [place] [address], [place] [address] May, [facility] [place] [facility] [address] [id number] [address] [place] [address], [place] [address] May, [facility] [place] [facility] [address] [id number] [address] [place] [address], [place] [address] May, [facility] [place] [facility] [address] [id number] [address] [place] [address], [place] [address] Apr, [facility] [place] [facility] [address] [id number] [address] [place] [address], [place] [address] Apr, [facility] [place] [facility] [address] [id number] [address] [place] [address], [place] [address] Apr, [facility] [address] [id number] [address] [place] [address], [place] [address] Apr, [facility] [address] [id number] [address] [place] [address], [place] [address] March, [facility] [address] [id number] [address] [place] [address], [place] [address] March, [facility] [address] [id number] [address] [place] [address], [place] [address] March, [facility] [address] [id number] [address] [place] [address], [place] [address] March, [facility] [address] [id number] [address] [place] [address] [place] [address] [address] March, [facility] [address] [id number] [address] [place] [address], [place] [address] March, [facility] [address] [id number] [address] [place] [address], [place] [address] Feb, [facility] [address] [id number] [address] [place] [address], [place] [address] Feb, [facility] [address] [id number] [address] [place] [address], [place] [address] Feb, [facility] [address] [id number] [address] [place] [address], [place] [address] Feb, [facility] [address] [id number] [address] [place] [address], [place] [address] Feb, [facility] [address] [id number] [address] [place] [address], [place] [address] Feb, [facility] [address] [id number] [address] [place] [address], [place] [address] Feb, [facility] [address] [id number] [address] [place] [address], [place] [address] Feb, [facility] [address] [id number] [facility] [place] [address] Jan, [facility] [place] [facility] [address] [id number] [facility] [place] [address] Jan, [facility] [address] [id number] [facility] [place] [address] Jan, [facility] [place] [facility] [address] [id number] [address] [place] [address], [place] [address] Jan, [facility] [address] [id number] [address] [place] [address], [place] [address] Jan, [facility] [place] [facility] [address] [id number] [address] [place] [address], [place] [address] Jan, [facility] [address] [id number] [address] [place] [address], [place] [address] Dec, [facility] [place] [facility] [address] [id number] [address] [place] [address], [place] [address] Dec, [facility] [address] [id number] [address] [place] [address], [place] [address] Nov, [facility] [address] [id number] [address] [place] [address], [place] [address] Nov, [facility] [place] [facility] [address] [id number] [address] [place] [address], [place] [address] Nov, [facility] [place] [facility] [address] [id number] [address] [place] [address], [place] [address] Nov, [facility] [place] [facility] [address] [id number] [address] [place] [address], [place] [address] Nov, [facility] [place] [facility] [address] [id number] [address] [place] [address], [place] [address] Nov, [facility] [place] [facility] [address] [id number] [address] [place] [address], [place] [address] Nov, [facility] [place] [facility] [address] [id number] [address] [place] [address], [place] [address] Nov, [facility] [address] [id number] [address] [place] [address], [place] [address] Nov, [facility] [address] [id number] [address] [place] [address], [place] [address] Nov, [facility] [address] [id number] [address] [place] [address], [place] [address] Nov, [facility] [address] [id number] [address] [place] [address], [place] [address] Nov, [facility] [address] [id number] [address] [place] [address], [place] [address] Nov, [facility] [address] [id number] [address] [place] [address], [place] [address] Nov, [facility] [address] [id number] [address] [place] [address], [place] [address] Nov, [facility] [address] [id number] [address] [place] [address], [place] [address] Oct, [facility] [address] [id number] [address] [place] [address], [place] [address] Oct, [facility] [address] [id number] [address] [place] [address], [place] [address] Oct, [facility] [address] [id number] [address] [place] [address], [place] [address] Oct, [facility] [address] [id number] [address] [place] [address], [place] [address] Oct, [facility] [address] [id number] [address] [place] [address], [place] [address] Oct, [facility] [address] [id number] [address] [place] [address], [place] [address] Oct, [facility] [address] [id number] [address] [place] [address], [place] [address] Oct, [facility] [address] [facility] [id number] [address] [place] [address] Oct, [facility] [address] [facility] [id number] [address] [place] [address] Aug, [facility] [address] [facility] [id number] [address] [place] [address] Aug, IMMUNIZATIONS No Known Immunizations SOCIAL HISTORY Never Assessed REASON FOR VISIT Controlled Medication Refill PLAN OF CARE VITAL SIGNS MEDICATIONS Medication Instructions Dosage Frequency Start Date End Date Duration S tatus Clonazepam 1 MG Orally Once a day at HS 1 tablet Sep, Active Oxycodone HCl 10 mg Orally every 6 hrs 1 tablet as needed 6h Oct, 28 days Active MS Contin 30 [...] by Dr. Troy Michelle pain specialist in [place], [place] Medical History Chronic low back pain Medical History depression Medical History anxiety Medical History Panic attacks Medical History Vitamin B 12 deficiency r/t gastric bypa ss Medical History Low back injections 11/2012, 06/2013 Medical History Thrombocytosis Surgical History tonsillectomy Surgical History gastric bypass--2003-in [facility] Unsure of Dr's name. No longer [...]
--- OUTSIDE RECORDS SUMMARY | 2020-06-19 02:24 | XMS REPORT ---
Author Author Mahsa ROBERTS Organization [facility] Address [address] [place] [address] Care Team Providers Care [employer] Manager Name Role Phone ARMANDONONAASHVIN Unavailable PROBLEMS Type Condition ICD9-CM Code DOA88-LG Code Onset Dates Condition S tatus SNOMED Code Problem Chronic pain syndrome G89.4 Active 441000157 Problem Other constipation K59.09 Active 1 [id number] Problem Anxiety F41.9 Active 46869636 Problem Primary insomnia F51.01 Active 193 782267 Problem Atherosclerosis of [place] co ronary artery of [place] heart without angina pectoris I25.10 Active 5154002910878 Problem Essential hypertension I10 Active 16740155 Problem Hyperlipidemia, unspecified hyperlipidemia E78.5 Active 99850351 Problem Major depressive disorder, recurrent episode, un specified severity F33.9 Active 80522091 Problem Allergic rhinitis J30.9 Active 61 952166 Problem Fibromyalgia M79.7 Active 5728681 7 Problem GERD (gastroesophageal reflux disease) K21.9 Active 742053270 Problem Degenerative disc disease, thoracic M51.34 Active 11617267 Problem Bilateral low back pain, with sciatica presence unspecifie d M54.5 Active 349284325 Problem Moderate episode of recurrent major depressive disorder F33.1 Active 250763792 Problem B12 deficiency E53.8 Active 89013 4004 Problem Chronic obstructive pulmonary disease, unspecified COPD ty pe J44.9 Active 39318060 Problem CKD (chronic kidney disease) stage 3, GFR 30-59 ml/min N18.3 Active 315195175 Problem Cannabis abuse F12.10 Active 40503 009 Problem Degenerative disc disease, cervical M50.30 Active 25442233 ALLERGIES No Information ENCOUNTERS Encounter Location Date Diagnosis [facility] [address] [facility] [id number] [address] [place] [address] Feb, CKD (chronic kidney disease) stage 3, GFR 30-59 ml/min N18.3 and B12 deficiency E53.8 [facility] [address] [facility] [id number] [address] [place] [phone] 07 Feb, 2020 CKD (chronic kidney disease) stage 3, GFR 30-59 ml/min N18.3 and B12 deficiency E53.8 [facility] [address] [facility] [id number] [address] [place] [phone] Jan, [facility] [address] [facility] [id number] [address] [place] [phone] Nov, [facility] [address] [facility] [id number] [address] [place] [phone] Oct, Moderate episode of recurren t major depressive disorder F33.1 ; Chronic obstructive pulmonary disease, unspecified COPD type J44.9 ; CKD (chronic kidney disease) stage 3, GFR 30-59 ml/min N18.3 ; Essential hypertension I10 and Possible exposure to STD Z20.2 [facility] [address] [facility] [id number] [address] [place] [phone] Oct, Essential hypertension I10 [facility] [address] [facility] [id number] [address] [place] [phone] Oct, [facility] [address] [facility] [id number] [address] [place] [phone] Sep, Essential hypertension I10 [facility] [address] [facility] [id number] [address] [place] [phone] Sep, [facility] [address] [facility] [id number] [address] [place] [phone] Sep, [facility] [address] [facility] [id number] [address] [place] [phone] Sep, [facility] [address] [facility] [id number] [address] [place] [phone] Aug, Essential hypertension I10 [facility] [address] [facility] [id number] [address] [place] [phone] Aug, Essential hypertension I10 [place] [address] [facility] [id number] [address] [place] [phone] 25 Jul, 2019 Allergic rhinitis J30.9 ; CK D (chronic kidney disease) stage 3, GFR 30-59 ml/min N18.3 ; Essential hypertension I10 and Moderate episode of recurrent major depressive disorder F33.1 [place] [address] [place] [id number] [address] [place] [phone] 11 Jul, 2019 Elevated platelet count R79. 89 ; B12 deficiency E53.8 ; Hyperlipidemia, unspecified hyperlipidemia E78.5 and CKD (chronic kidney disease) stage 3, GFR 30-59 ml/min N18.3 [place] [address] [place] [id number] [address] [place] [phone] Apr, B12 deficiency E53.8 [place] [address] [facility] [id number] [address] [place] [phone] Jan, Periumbilical hernia K42.9 ; CKD (chronic kidney disease) stage 3, GFR 30-59 ml/min N18.3 ; Essential hypertension I10 ; GERD (gastroesophageal reflux disease) K21.9 ; Hyperlipidemia, unspecified hyperlipidemia E78.5 and Major depressive disorder, recurrent episode, unspecified severity F33.9 [place] [address] [facility] [id number] [address] [place] [phone] 12 Dec, 2018 Anxiety F41.9 [place] [address] [facility] [id number] [address] [place] [phone] Nov, Elevated platelet count R79. 89 [place] [address] [facility] [id number] [address] [place] [phone] 15 Nov, 2018 [place] [address] [place] [id number] [address] [place] [phone] Nov, Elevated platelet count R79. 89 [place] [address] [facility] [id number] [address] [place] [phone] Nov, Anxiety F41.9 [place] [address] [place] [id number] [address] [place] [phone] Nov, Bilateral low back pain, wit h sciatica presence unspecified M54.5 ; Cervicalgia M54.2 ; Degenerative disc disease, cervical M50.30 and Degenerative disc disease, thoracic M51.34 [place] [address] [address] Nov, Chronic pain syndrome G89.4 and Bilateral low back pain, with sciatica presence unspecified M54.5 [place] [address] [address] Oct, Umbilical hernia without obs truction and without gangrene K42.[address] [address] Oct, Chronic pain syndrome G89.[address] [address] Oct, Chronic pain syndrome G89.4 and Anxiety F41.[address] [address] Oct, Elevated platelet count R79. [address] [address] Oct, CKD (chronic kidney disease) stage 3, GFR 30-59 ml/min N18.3 ; Other chest pain R07.89 ; Acute midline thoracic back pain M54.6 ; Essential hypertension I10 and History of osteoporosis Z87.39 [place] [address] [address] Sep, Chronic pain syndrome G89.4 [place] [address] [address] Sep, [address] [address] Sep, Anxiety F41.9 and Chronic pa in syndrome G89.[address] [address] Aug, Chronic pain syndrome G89.4 and Anxiety F41.9 [place] [address] [address] Aug, [place] [address] [address] Aug, Cannabis abuse F12.10 and Co ntrolled substance agreement terminated Z91.[address] [address] Jul, Chronic pain syndrome G89.4 ; Bilateral low back pain, with sciatica presence unspecified M54.5 ; Chronic prescription opiate use Z79.899 ; Essential hypertension I10 ; Hyperlipidemia, unspecified hyperlipidemia E78.5 ; CKD (chronic kidney disease) stage 3, GFR 30-59 ml/min N18.3 and Allergic rhinitis J30.9 [place] [address] [address] Jul, Chronic pain syndrome G89.4 and Anxiety F41.9 [place] [address] [address] Jul, Screening for breast cancer Z12.31 and Major depressive disorder, recurrent episode, unspecified severity F33.9 [place] [address] [place] [id number] [place] [address] Jun, Chronic pain syndrome G89.4 and Anxiety F41.9 [place] [address] [address] May, Chronic pain syndrome G89.4 and Anxiety F41.9 [place] [address] [place] [id number] [place] [address] Apr, Anxiety F41.9 [place] [address] [place] [id number] [place] [address] Apr, Chronic prescription opiate use Z79.899 ; Chronic pain syndrome G89.4 ; Essential hypertension I10 ; Allergic rhinitis J30.9 and CKD (chronic kidney disease) stage 3, GFR 30-59 ml/min N18.3 [place] [address] [address] Apr, [place] [address] [address] March, Anxiety F41.9 and Chronic pa in syndrome G89.4 [place] [address] [address] March, CKD (chronic kidney disease) stage 3, GFR 30-59 ml/min N18.3 ; B12 deficiency E53.8 and Hyperlipidemia, unspecified hyperlipidemia E78.5 [place] [address] [address] March, Anxiety F41.9 and Chronic pa in syndrome G89.4 [place] [address] [address] Feb, Anxiety F41.9 and Chronic pa in syndrome G89.4 [place] [address] [address] Jan, B12 deficiency E53.8 [place] [address] [address] Jan, [place] [address] [address] Jan, Anxiety F41.9 ; Chronic pain syndrome G89.4 and Essential hypertension I10 [place] [address] [address] Jan, CKD (chronic kidney disease) stage 3, [...] of right shoulder joint M75.51 [facility] [address] [facility] [id number] [address] [place] [phone] 28 Dec, 2017 Essential hypertension I10 [facility] [address] [facility] [id number] [address] [place] [phone] 15 Dec, 2017 Chronic pain syndrome G89.4 [facility] [address] [facility] [id number] [address] [place] [phone] Dec, Chronic pain syndrome G89.4 [facility] [address] [facility] [id number] [address] [place] [phone] Nov, [facility] [address] [place] [id number] [address] [place] [address] Nov, Chronic pain syndrome G89.4 and Anxiety F41.9 [place] [address] [place] [id number] [address] [place] [address] Oct, Chronic pain syndrome G89.4 ; Other constipation K59.09 and Chronic prescription opiate use Z79.899 [place] [address] [place] [id number] [address] [place] [address] Oct, Chronic pain syndrome G89.4 and Anxiety F41.9 [place] [address] [place] [id number] [address] [place] [phone] Sep, Essential hypertension I10 [facility] [address] [facility] [id number] [address] [place] [id number] 16 Sep, 2017 Chronic pain syndrome G89.4 and Anxiety F41.9 [facility] [address] [facility] [id number] [address] [place] [phone] Aug, Chronic pain syndrome G89.4 and Anxiety F41.9 [facility] [address] [facility] [id number] [address] [place] [phone] 28 Jul, 2017 Essential hypertension I10 [facility] [address] [place] [id number] [address] [place] [id number] Jul, Chronic obstructive pulmonar y disease, unspecified COPD type J44.9 [place] [id number] [facility] [id number] [address] [place] [phone] Jul, Chronic pain syndrome G89.4 and Anxiety F41.9 [place] [address] [facility] [id number] [address] [place] [address] Jul, Chronic pain syndrome G89.4 ; Essential hypertension I10 ; Fibromyalgia M79.7 ; CKD (chronic kidney disease) stage 3, GFR 30-59 ml/min N18.3 ; Subacromial bursitis, right M75.51 and Goals of care, co unseling/discussion Z71.89 [place] [address] [facility] [id number] [address] [place] [address] Jun, Chronic pain syndrome G89.4 and Anxiety F41.9 [place] [address] [place] [id number] [address] [place] [address] May, Chronic pain syndrome G89.4 and Anxiety F41.9 [place] [address] [place] [id number] [address] [place] [address] Apr, Chronic pain syndrome G89.4 and Anxiety F41.9 [place] [address] [facility] [id number] [address] [place] [address] Apr, Drug induced constipation K5 9.03 ; Chronic pain syndrome G89.4 and CKD (chronic kidney disease) stage 3, GFR 30-59 ml/min N18.3 [place] [address] [facility] [id number] [address] [place] [address] Apr, Chronic pain syndrome G89.4 and Anxiety F41.9 [place] [address] [facility] [id number] [address] [place] [address] March, Chronic pain syndrome G89.4 and Anxiety F41.9 [place] [address] [facility] [id number] [address] [place] [address] March, Decreased GFR R94.4 [facility] [address] [id number] [address] [place] [phone] Feb, [facility] [address] [facility] [id number] [address] [place] [phone] Feb, Chronic pain syndrome G89.4 and Anxiety F41.9 [facility] [address] [facility] [id number] [address] [place] [phone] Jan, Decreased GFR R94.4 [facility] [address] [facility] [id number] [address] [place] [address] Jan, Decreased GFR R94.4 [facility] [address] [facility] [id number] [address] [place] [phone] Jan, Allergic rhinitis J30.9 ; Es sential hypertension I10 ; Major depressive disorder, recurrent episode, unspecified severity F33.9 and Primary insomnia F51.01 [facility] [address] [facility] [id number] [address] [place] [address] Jan, Acute right-sided thoracic b ack pain M54.6 ; Subacromial bursitis of right shoulder joint M75.51 ; Chronic pain syndrome G89.4 and Anxiety F41.9 [facility] [address] [place] [id number] [address] [place] [phone] Jan, Decreased GFR R94.4 [facility] [address] [facility] [id number] [address] [place] [address] Dec, Decreased GFR R94.4 [facility] [address] [facility] [id number] [address] [place] [phone] Dec, Decreased GFR R94.4 [facility] [address] [facility] [id number] [address] [place] [address] Dec, Decreased GFR R94.4 [facility] [address] [facility] [id number] [address] [place] [phone] Dec, Decreased GFR R94.4 [facility] [address] [address] Dec, Anxiety F41.9 and Bilateral low back pain, with sciatica presence unspecified M54.5 [place] [address] [address] Dec, Thrombocytosis D47.3 ; Hyper lipidemia, unspecified hyperlipidemia E78.5 ; Need for hepatitis C screening test Z11.59 and B12 deficiency E53.8 [place] [address] [address] Nov, Need for hepatitis C screeni ng test Z11.59 [place] [address] [address] Nov, Anxiety F41.9 and Bilateral low back pain, with sciatica presence unspecified M54.5 [place] [address] [address] Oct, Bilateral low back pain, wit h sciatica presence unspecified M54.5 ; Chronic prescription opiate use Z79.899 ; Anxiety F41.9 ; Essential hypertension I10 ; Hyperlipidemia, unspecified hyperlipidemia E78.5 ; Health care maintenance Z00.00 and Thrombocytosis D47.3 [place] [address] [address] Sep, [place] [address] [address] Sep, [place] [address] [address] Aug, [place] [address] [address] Jul, B12 deficiency E53.8 [place] [address] [address] Jul, [place] [address] [address] Jul, Essential hypertension I10 ; Chronic pain syndrome G89.4 ; Anxiety F41.9 ; Screening for breast cancer Z12.39 ; Atherosclerosis of [place] coronary artery of [place] heart without angina pectoris I25.10 ; Major depressive disorder, recurrent episode, unspecified severity F33.9 ; Primary insomnia F51.01 and Allergic rhinitis J30.9 [facility] [address] [facility] [id number] [address] [place] [address] Jun, [facility] [address] [facility] [id number] [address] [place] [address] Jun, Leg wound, right, initial en counter S81.801A and Encounter for immunization Z23 [facility] [address] [facility] [id number] [address] [place] [address] Jun, Open wound of right ear, uns pecified open wound type, initial encounter S01.301A [facility] [address] [facility] [id number] [address] [place] [address] May, B12 deficiency E53.8 [facility] [address] [facility] [id number] [address] [place] [address] May, [facility] [address] [facility] [id number] [address] [place] [address] May, [facility] [address] [facility] [id number] [address] [place] [address] May, Chronic pain syndrome G89.4 ; Chronic prescription opiate use Z79.899 ; Allergic rhinitis J30.9 ; Essential hypertension I10 and Non-healing skin lesion L98.9 [facility] [address] [facility] [id number] [address] [place] [address] Apr, [facility] [address] [facility] [id number] [address] [place] [phone] March, [facility] [address] [facility] [id number] [address] [place] [phone] Feb, [facility] [address] [place] [id number] [address] [place] [phone] Feb, [facility] [address] [address] Feb, Chronic pain syndrome G89.4 ; Anxiety [...] [facility] [address] [facility] [id number] [address] Jan, [facility] [address] [address] Jan, Essential hypertension I10 [facility] [address] [address] Jan, [facility] [address] [address] Jan, [facility] [address] [address] Jan, [facility] [address] [address] Dec, [facility] [address] [address] Dec, Essential hypertension I10 [facility] [address] [facility] [id number] [address] [place] [address] Dec, [facility] [address] [address] Dec, B12 deficiency E53.8 and Ess ential hypertension I10 [facility] [address] [place] [id number] [address] [place] [address] Dec, [facility] [address] [place] [id number] [address] [place] [address] Nov, Right shoulder pain M25.511 [facility] [address] [address] Nov, Right shoulder pain M25.511 [facility] [address] [address] Nov, Essential hypertension I10 a nd B12 deficiency E53.8 [facility] [address] [address] 14 Nov, 2015 Major depressive disorder, r ecurrent episode, unspecified severity F33.9 ; Anxiety F41.9 ; Chronic pain syndrome G89.4 ; Essential hypertension I10 ; Hyperlipidemia, unspecified hyperlipidemia E78.5 ; Chronic prescription opiate use Z79.899 ; Allergic rhinitis J30.9 ; B12 deficiency E53.8 and Right shoulder pain M25.511 [place] [address] [address] Oct, [place] [address] [address] Oct, [place] [address] [address] Sep, [place] [address] [address] Sep, [place] [address] [place] [id number] [address] [place] [address] Aug, [facility] [address] [address] Aug, [facility] [address] [address] Aug, [facility] [address] [address] Aug, Other constipation K59.09 ; Hyperlipidemia, unspecified hyperlipidemia E78.5 ; Essential hypertension I10 ; Primary insomnia F51.01 ; Anxiety F41.9 ; Chronic pain syndrome G89.4 ; Right shoulder pain M25.511 and Acute cystitis without hematuria N30.00 [facility] [address] [facility] [id number] [address] [place] [id number] 16 Jul, 2015 [facility] [address] [place] [id number] [address] [place] [address] Jul, [facility] [address] [id number] [address] [place] [address] Jun, [facility] [address] [facility] [id number] [address] [place] [address] Jun, [facility] [address] [place] [id number] [place] [phone] Jun, [facility] [address] [place] [id number] [address] [place] [address] May, [facility] [address] [place] [id number] [address] [place] [address] May, Other chronic pain 338.29 ; Hypertension 401.9 and Constipation due to opioid therapy 564.09 [facility] [address] [facility] [id number] [address] [place] [address] May, [facility] [address] [place] [id number] [address] [place] [address] May, [facility] [address] [facility] [id number] [address] [place] [address] Apr, [facility] [address] [facility] [id number] [address] [place] [address] Apr, Unspecified essential hypert ension 401.9 [facility] [address] [facility] [id number] [address] [place] [address] Apr, [facility] [address] [place] [id number] [address] [place] [phone] Apr, [facility] [address] [id number] [address] [place] [address], [place] [address] 16 Apr, 2015 [facility] [address] [id number] [address] [place] [address], [place] [address] 16 Apr, 2015 [facility] [address] [id number] [address] [place] [address], [place] [address] 15 Apr, 2015 [facility] [address] [id number] [address] [place] [phone] Apr, [facility] [address] [id number] [address] [place] [address], [place] [address] March, Unspecified essential hypert ension 401.9 [facility] [address] [id number] [address] [place] [address], [place] [address] March, [facility] [address] [id number] [address] [place] [id number] March, [facility] [address] [id number] [address] [place] [address], [place] [id number] 14 Feb, 2015 [facility] [address] [id number] [address] [place] [phone] Feb, [facility] [address] [id number] [address] [place] [address], [place] [id number] 23 Jan, 2015 [facility] [address] [id number] [address] [place] [id number] 23 Jan, 2015 [facility] [address] [id number] [address] [place] [phone] 17 Jan, 2015 [facility] [address] [id number] [address] [place] [id number] 17 Jan, 2015 [facility] [address] [id number] [address] [place] [address], [place] [id number] 13 Jan, 2015 [facility] [address] [id number] [address] [place] [phone] 02 Jan, 2015 [facility] [address] [id number] [address] [place] [phone] Jan, [facility] [address] [id number] [address] [place] [address], [place] [id number] 16 Dec, 2014 [facility] [address] [id number] [address] [place] [address], [place] [address] 16 Dec, 2014 [facility] [address] [id number] [address] [place] [address], [place] [address] Dec, [facility] [address] [id number] [address] [place] [address], [place] [address] Nov, [facility] [address] [id number] [address] [place] [address], [place] [address] Nov, [facility] [address] [id number] [address] [place] [address], [place] [address] Oct, [facility] [address] [id number] [address] [place] [address], [place] [address] Oct, [facility] [address] [id number] [address] [place] [address], [place] [address] Oct, [facility] [address] [id number] [address] [place] [address], [place] [address] Oct, [facility] [address] [id number] [address] [place] [address], [place] [address] Oct, [facility] [address] [id number] [address] [place] [address], [place] [address] Oct, [facility] [address] [id number] [address] [place] [address], [place] [address] Oct, [facility] [address] [id number] [address] [place] [address], [place] [address] Oct, [facility] [address] [id number] [address] [place] [address], [place] [address] Sep, [facility] [address] [id number] [address] [place] [address], [place] [address] Sep, [facility] [address] [id number] [address] [place] [address], [place] [address] Sep, [facility] [address] [id number] [address] [place] [address], [place] [address] Sep, [facility] [address] [id number] [address] [place] [address], [place] [address] Sep, [facility] [address] [id number] [address] [place] [address], [place] [address] Sep, [facility] [address] [id number] [address] [place] [address], [place] [address] Aug, [facility] [address] [id number] [address] [place] [address], [place] [address] Aug, [facility] [address] [id number] [address] [place] [address], [place] [address] Aug, [facility] [address] [id number] [address] [place] [address], [place] [address] Aug, [facility] [address] [id number] [address] [place] [address], [place] [address] Aug, [facility] [address] [id number] [address] [place] [address], [place] [address] Aug, [facility] [address] [id number] [address] [place] [address], [place] [address] Aug, [facility] [address] [id number] [address] [place] [address], [place] [address] Aug, [facility] [address] [id number] [address] [place] [address], [place] [address] Aug, [facility] [address] [id number] [address] [place] [address], [place] [address] Aug, [facility] [address] [id number] [address] [place] [address], [place] [address] Jul, [facility] [address] [id number] [address] [place] [address], [place] [address] Jul, [facility] [address] [id number] [facility] [place] [address] Jul, [facility] [address] [id number] [address] [place] [address], [place] [address] Jul, [facility] [address] [id number] [address] [place] [address], [place] [address] Jul, [facility] [address] [id number] [address] [place] [address], [place] [address] Jul, [facility] [address] [id number] [address] [place] [address], [place] [address] Jun, [facility] [address] [id number] [address] [place] [address], [place] [address] Jun, [facility] [address] [id number] [address] [place] [address], [place] [address] Jun, [facility] [address] [id number] [address] [place] [address], [place] [address] Jun, [facility] [address] [id number] [address] [place] [address], [place] [address] Jun, [facility] [address] [id number] [address] [place] [address], [place] [address] Jun, [facility] [address] [id number] [address] [place] [address], [place] [address] May, [facility] [address] [id number] [address] [place] [address], [place] [address] May, [facility] [address] [id number] [address] [place] [address], [place] [address] May, [facility] [address] [id number] [address] [place] [address], [place] [address] May, [facility] [address] [id number] [address] [place] [address], [place] [address] May, [facility] [address] [id number] [address] [place] [address], [place] [address] Apr, [facility] [address] [id number] [address] [place] [address], [place] [address] Apr, [facility] [address] [id number] [address] [place] [address], [place] [address] Apr, [facility] [address] [id number] [address] [place] [address], [place] [address] Apr, [facility] [address] [id number] [address] [place] [address], [place] [address] March, [facility] [address] [id number] [address] [place] [address], [place] [address] March, [facility] [address] [id number] [address] [place] [address], [place] [address] March, [facility] [address] [id number] [address] [place] [address], [place] [address] March, [facility] [address] [id number] [address] [place] [address], [place] [address] March, [facility] [address] [id number] [address] [place] [address], [place] [address] March, [facility] [address] [id number] [address] [place] [address], [place] [address] Feb, [facility] [address] [id number] [address] [place] [address], [place] [address] Feb, [facility] [address] [id number] [address] [place] [address], [place] [address] Feb, [facility] [address] [id number] [address] [place] [address], [place] [address] Feb, [facility] [address] [id number] [address] [place] [address], [place] [address] Feb, [facility] [address] [id number] [address] [place] [address], [place] [address] Feb, [facility] [address] [id number] [facility] [place] [address] Feb, [facility] [address] [id number] [address] [place] [address], [place] [address] Feb, [facility] [address] [id number] [facility] [place] [address] Jan, [facility] [address] [id number] [address] [place] [address], [place] [address] Jan, [facility] [address] [id number] [address] [place] [address], [place] [address] Jan, [facility] [address] [id number] [address] [place] [address], [place] [address] Jan, [facility] [address] [id number] [address] [place] [address], [place] [address] Jan, [facility] [address] [id number] [address] [place] [address], [place] [address] Jan, [facility] [address] [id number] [address] [place] [address], [place] [address] Dec, [facility] [address] [id number] [address] [place] [address], [place] [address] Dec, [facility] [address] [id number] [address] [place] [address], [place] [address] Nov, [facility] [address] [id number] [address] [place] [address], [place] [address] Nov, [facility] [address] [id number] [address] [place] [address], [place] [address] Nov, [facility] [address] [id number] [address] [place] [address], [place] [address] Nov, [facility] [address] [id number] [address] [place] [address], [place] [address] Nov, [facility] [address] [id number] [address] [place] [address], [place] [address] Nov, [facility] [address] [id number] [address] [place] [address], [place] [address] Nov, [facility] [address] [id number] [address] [place] [address], [place] [address] Nov, [facility] [address] [id number] [address] [place] [address], [place] [address] Nov, [facility] [address] [id number] [address] [place] [address], [place] [address] Nov, [facility] [address] [id number] [address] [place] [address], [place] [address] Nov, [facility] [address] [id number] [address] [place] [address], [place] [address] Nov, [facility] [address] [id number] [address] [place] [address], [place] [address] Nov, [facility] [address] [id number] [address] [place] [address], [place] [address] Nov, [facility] [address] [id number] [address] [place] [address], [place] [address] Nov, [facility] [address] [id number] [address] [place] [address], [place] [address] Oct, [facility] [address] [id number] [address] [place] [address], [place] [address] Oct, [facility] [address] [id number] [address] [place] [address], [place] [address] Oct, [facility] [address] [id number] [address] [place] [address], [place] [address] Oct, [facility] [address] [id number] [address] [place] [address], [place] [address] Oct, [facility] [address] [id number] [address] [place] [address], [place] [address] Oct, [facility] [address] [id number] [address] [place] [address] Oct, [facility] [address] [facility] [id number] [address] [place] [address] Oct, [facility] [address] [facility] [id number] [address] [place] [address] Oct, [facility] [address] [facility] [id number] [address] [place] [address] Aug, [facility] [address] [facility] [id number] [address] [place] [address] Aug, IMMUNIZATIONS No Known Immunizations SOCIAL HISTORY [...] by Dr. Troy Michelle pain specialist in [place], [place] Medical History Chronic low back pain Medical History depression Medical History anxiety Medical History Panic attacks Medical History Vitamin B 12 deficiency r/t gastric bypa ss Medical History Low back injections 11/2012, 06/2013 Medical History Thrombocytosis Surgical History tonsillectomy Surgical History gastric bypass--2003-in [facility] [place] Unsure of Dr's name. [...]
--- OUTSIDE RECORDS SUMMARY | 2020-06-19 02:24 | XMS REPORT ---
Author Author ARMANDO Mahsa ASHVIN Organization [facility] Address [address] [place] [address] Care Team Providers Care Engineering Program Analyst Name Role Phone ARMANDONYASIA DIAZY Unavailable PROBLEMS Type Condition ICD9-CM Code YWL33-ZO Code Onset Dates Condition S tatus SNOMED Code Problem Chronic pain syndrome G89.4 Active 660138517 Problem Other constipation K59.09 Active 1 [id number] Problem Anxiety F41.9 Active 77090225 Problem Primary insomnia F51.01 Active 193 069660 Problem Atherosclerosis of [place] co ronary artery of [place] heart without angina pectoris I25.10 Active [id number] Problem Essential hypertension I10 Active 40124511 Problem Hyperlipidemia, unspecified hyperlipidemia E78.5 Active 79699363 Problem Major depressive disorder, recurrent episode, un specified severity F33.9 Active 72130981 Problem Allergic rhinitis J30.9 Active 61 665355 Problem Fibromyalgia M79.7 Active 4849773 7 Problem GERD (gastroesophageal reflux disease) K21.9 Active 100395206 Problem Degenerative disc disease, thoracic M51.34 Active 78727431 Problem Bilateral low back pain, with sciatica presence unspecifie d M54.5 Active 002114003 Problem Moderate episode of recurrent major depressive disorder F33.1 Active 375835902 Problem B12 deficiency E53.8 Active 64995 4004 Problem Chronic obstructive pulmonary disease, unspecified COPD ty pe J44.9 Active 91283562 Problem CKD (chronic kidney disease) stage 3, GFR 30-59 ml/min N18.3 Active 994000227 Problem Cannabis abuse F12.10 Active 17236 009 Problem Degenerative disc disease, cervical M50.30 Active 20298447 ALLERGIES No Information ENCOUNTERS Encounter Location Date Diagnosis [facility] [address] [facility] [id number] [address] [place] [address] Apr, [facility] [address] [facility] [id number] [address] [place] [id number] 08 Feb, 2020 CKD (chronic kidney disease) stage 3, GFR 30-59 ml/min N18.3 and B12 deficiency E53.8 [facility] [address] [facility] [id number] [address] [place] [address] 07 Feb, 2020 CKD (chronic kidney disease) stage 3, GFR 30-59 ml/min N18.3 and B12 deficiency E53.8 [facility] [address] [facility] [id number] [address] [place] [address] Jan, [facility] [address] [facility] [id number] [address] [place] [address] Nov, [facility] [address] [facility] [id number] [address] [place] [address] Oct, Moderate episode of recurren t major depressive disorder F33.1 ; Chronic obstructive pulmonary disease, unspecified COPD type J44.9 ; CKD (chronic kidney disease) stage 3, GFR 30-59 ml/min N18.3 ; Essential hypertension I10 and Possible exposure to STD Z20.2 [facility] [address] [facility] [id number] [address] [place] [address] Oct, Essential hypertension I10 [facility] [address] [facility] [id number] [address] [place] [address] Oct, [facility] [address] [facility] [id number] [address] [place] [address] Sep, Essential hypertension I10 [facility] [address] [facility] [id number] [address] [place] [address] Sep, [facility] [address] [facility] [id number] [address] [place] [address] Sep, [facility] [address] [facility] [id number] [address] [place] [id number] 14 Sep, 2019 [facility] [address] [facility] [id number] [address] [place] [address] Aug, Essential hypertension I10 [facility] [address] [place] [id number] [address] [place] [address] Aug, Essential hypertension I10 [place] [address] [address] Jul, Allergic rhinitis J30.9 ; CK D (chronic kidney disease) stage 3, GFR 30-59 ml/min N18.3 ; Essential hypertension I10 and Moderate episode of recurrent major depressive disorder F33.1 [place] [address] [address] Jul, Elevated platelet count R79. 89 ; B12 deficiency E53.8 ; Hyperlipidemia, unspecified hyperlipidemia E78.5 and CKD (chronic kidney disease) stage 3, GFR 30-59 ml/min N18.3 [place] [address] [address] Apr, B12 deficiency E53.8 [place] [address] [address] Jan, Periumbilical hernia K42.9 ; CKD (chronic kidney disease) stage 3, GFR 30-59 ml/min N18.3 ; Essential hypertension I10 ; GERD (gastroesophageal reflux disease) K21.9 ; Hyperlipidemia, unspecified hyperlipidemia E78.5 and Major depressive disorder, recurrent episode, unspecified severity F33.9 [place] [address] [address] Dec, Anxiety F41.9 [place] [address] [place] [id number] [place] [address] Nov, Elevated platelet count R79. 89 [place] [address] [address] Nov, [place] [address] [address] Nov, Elevated platelet count R79. 89 [place] [address] [place] [id number] [place] [address] Nov, Anxiety F41.9 [place] [address] [facility] [id number] [address] [place] [address] Nov, Bilateral low back pain, wit h sciatica presence unspecified M54.5 ; Cervicalgia M54.2 ; Degenerative disc disease, cervical M50.30 and Degenerative disc disease, thoracic M51.34 [place] [address] [place] [id number] [place] [address] Nov, Chronic pain syndrome G89.4 and Bilateral low back pain, with sciatica presence unspecified M54.5 [place] [address] [place] [id number] [place] [address] Oct, Umbilical hernia without obs truction and without gangrene K42.9 [place] [address] [place] [id number] [place] [address] Oct, Chronic pain syndrome G89.4 [place] [address] [address] Oct, Chronic pain syndrome G89.4 and Anxiety F41.9 [place] [address] [address] Oct, Elevated platelet count R79. 89 [place] [address] [place] [id number] [place] [address] Oct, CKD (chronic kidney disease) stage 3, GFR 30-59 ml/min N18.3 ; Other chest pain R07.89 ; Acute midline thoracic back pain M54.6 ; Essential hypertension I10 and History of osteoporosis Z87.39 [place] [address] [place] [id number] [address] [place] [address] Sep, Chronic pain syndrome G89.4 [place] [address] [place] [id number] [address] [place] [address] 16 Sep, 2018 [place] [address] [place] [id number] [place] [address] Sep, Anxiety F41.9 and Chronic pa in syndrome G89.4 [place] [address] [facility] [id number] [address] [place] [address] Aug, Chronic pain syndrome G89.4 and Anxiety F41.9 [place] [address] [place] [id number] [address] [place] [address] Aug, [place] [address] [place] [id number] [place] [address] Aug, Cannabis abuse F12.10 and Co ntrolled substance agreement terminated Z91.14 [place] [address] [place] [id number] [place] [address] Jul, Chronic pain syndrome G89.4 ; Bilateral low back pain, with sciatica presence unspecified M54.5 ; Chronic prescription opiate use Z79.899 ; Essential hypertension I10 ; Hyperlipidemia, unspecified hyperlipidemia E78.5 ; CKD (chronic kidney disease) stage 3, GFR 30-59 ml/min N18.3 and Allergic rhinitis J30.9 [place] [address] [place] [id number] [address] [place] [address] Jul, Chronic pain syndrome G89.4 and Anxiety F41.9 [place] [address] [place] [id number] [address] [place] [address] Jul, Screening for breast cancer Z12.31 and Major depressive disorder, recurrent episode, unspecified severity F33.9 [place] [address] [place] [id number] [place] [address] Jun, Chronic pain syndrome G89.4 and Anxiety F41.9 [place] [address] [place] [id number] [place] [address] May, Chronic pain syndrome G89.4 and Anxiety F41.9 [place] [address] [place] [id number] [place] [address] Apr, Anxiety F41.9 [place] [address] [place] [id number] [place] [address] Apr, Chronic prescription opiate use Z79.899 ; Chronic pain syndrome G89.4 ; Essential hypertension I10 ; Allergic rhinitis J30.9 and CKD (chronic kidney disease) stage 3, GFR 30-59 ml/min N18.3 [place] [address] [address] Apr, [place] [address] [place] [id number] [place] [address] March, Anxiety F41.9 and Chronic pa in syndrome G89.4 [place] [address] [address] March, CKD (chronic kidney disease) stage 3, GFR 30-59 ml/min N18.3 ; B12 deficiency E53.8 and Hyperlipidemia, unspecified hyperlipidemia E78.5 [place] [address] [address] March, Anxiety F41.9 and Chronic pa in syndrome G89.4 [place] [address] [place] [id number] [place] [address] Feb, Anxiety F41.9 and Chronic pa in syndrome G89.4 [place] [address] [address] Jan, B12 deficiency E53.8 [place] [address] [address] Jan, [place] [address] [address] Jan, Anxiety F41.9 ; Chronic pain syndrome G89.4 and Essential hypertension I10 [place] [address] [address] Jan, CKD (chronic kidney disease) stage 3, [...] Subacromial bursitis of right shoulder joint M75.51 [facility] [address] [id number] [address] [place] [address] 28 Dec, 2017 Essential hypertension I10 [facility] [address] [facility] [id number] [address] [place] [address] 15 Dec, 2017 Chronic pain syndrome G89.4 [place] [address] [facility] [id number] [address] [place] [address] Dec, Chronic pain syndrome G89.4 [place] [address] [facility] [id number] [address] [place] [address] Nov, [place] [address] [facility] [id number] [address] [place] [address] Nov, Chronic pain syndrome G89.4 and Anxiety F41.9 [place] [address] [facility] [id number] [address] [place] [address] Oct, Chronic pain syndrome G89.4 ; Other constipation K59.09 and Chronic prescription opiate use Z79.8[address] [place] [address] [facility] [id number] [address] [place] [address] Oct, Chronic pain syndrome G89.4 and Anxiety F41.9 [place] [address] [facility] [id number] [address] [place] [address] Sep, Essential hypertension I10 [facility] [address] [facility] [id number] [address] [place] [address] 16 Sep, 2017 Chronic pain syndrome G89.4 and Anxiety F41.9 [place] [address] [facility] [id number] [address] [place] [address] Aug, Chronic pain syndrome G89.4 and Anxiety F41.9 [facility] [address] [facility] [id number] [address] [place] [address] Jul, Essential hypertension I10 [place] [address] [place] [id number] [address] [place] [address] Jul, Chronic obstructive pulmonar y disease, unspecified COPD type J44.9 [place] [address] [place] [id number] [address] [place] [address] Jul, Chronic pain syndrome G89.4 and Anxiety F41.9 [place] [address] [address] 13 Jul, 2017 Chronic pain syndrome G89.4 ; Essential hypertension I10 ; Fibromyalgia M79.7 ; CKD (chronic kidney disease) stage 3, GFR 30-59 ml/min N18.3 ; Subacromial bursitis, right M75.51 and Goals of care, co unseling/discussion Z71.89 [place] [address] [address] Jun, Chronic pain syndrome G89.4 and Anxiety F41.9 [place] [address] [address] May, Chronic pain syndrome G89.4 and Anxiety F41.9 [place] [address] [place] [id number] [place] [address] Apr, Chronic pain syndrome G89.4 and Anxiety F41.9 [place] [address] [address] 14 Apr, 2017 Drug induced constipation K5 9.03 ; Chronic pain syndrome G89.4 and CKD (chronic kidney disease) stage 3, GFR 30-59 ml/min N18.3 [place] [address] [place] [id number] [place] [address] 02 Apr, 2017 Chronic pain syndrome G89.4 and Anxiety F41.9 [place] [address] [place] [id number] [place] [address] March, Chronic pain syndrome G89.4 and Anxiety F41.9 [place] [address] [id number] [address] [place] [address] March, Decreased GFR R94.4 [facility] [address] [facility] [id number] [address] [place] [address] Feb, [facility] [address] [facility] [id number] [address] [place] [address] Feb, Chronic pain syndrome G89.4 and Anxiety F41.9 [facility] [address] [facility] [id number] [address] [place] [address] Jan, Decreased GFR R94.4 [facility] [address] [facility] [id number] [address] [place] [address] Jan, Decreased GFR R94.4 [facility] [address] [facility] [id number] [address] [place] [address] Jan, Allergic rhinitis J30.9 ; Es sential hypertension I10 ; Major depressive disorder, recurrent episode, unspecified severity F33.9 and Primary insomnia F51.01 [facility] [address] [facility] [id number] [address] [place] [address] Jan, Acute right-sided thoracic b ack pain M54.6 ; Subacromial bursitis of right shoulder joint M75.51 ; Chronic pain syndrome G89.4 and Anxiety F41.9 [facility] [address] [facility] [id number] [address] [place] [address] Jan, Decreased GFR R94.4 [facility] [address] [facility] [id number] [address] [place] [address] Dec, Decreased GFR R94.4 [facility] [address] [facility] [id number] [address] [place] [address] Dec, Decreased GFR R94.4 [facility] [address] [facility] [id number] [address] [place] [address] Dec, Decreased GFR R94.4 [facility] [address] [facility] [id number] [address] [place] [address] 13 Dec, 2016 Decreased GFR R94.4 [place] [address] [facility] [id number] [address] [place] [address] 09 Dec, 2016 Anxiety F41.9 and Bilateral low back pain, with sciatica presence unspecified M54.5 [place] [address] [place] [id number] [place] [address] Dec, Thrombocytosis D47.3 ; Hyper lipidemia, unspecified hyperlipidemia E78.5 ; Need for hepatitis C screening test Z11.59 and B12 deficiency E53.8 [place] [address] [address] Nov, Need for hepatitis C screeni ng test Z11.59 [place] [address] [address] Nov, Anxiety F41.9 and Bilateral low back pain, with sciatica presence unspecified M54.5 [place] [address] [place] [id number] [place] [address] Oct, Bilateral low back pain, wit h sciatica presence unspecified M54.5 ; Chronic prescription opiate use Z79.899 ; Anxiety F41.9 ; Essential hypertension I10 ; Hyperlipidemia, unspecified hyperlipidemia E78.5 ; Health care maintenance Z00.00 and Thrombocytosis D47.3 [place] [address] [place] [address] Sep, [place] [address] [place] [id number] [place] [address] Sep, [place] [address] [address] Aug, [place] [address] [place] [id number] [place] [address] Jul, B12 deficiency E53.8 [place] [address] [place] [id number] [place] [address] Jul, [facility] [address] [place] [id number] [place] [address] Jul, Essential hypertension I10 ; Chronic pain syndrome G89.4 ; Anxiety F41.9 ; Screening for breast cancer Z12.39 ; Atherosclerosis of [place] coronary artery of [place] heart without angina pectoris I25.10 ; Major depressive disorder, recurrent episode, unspecified severity F33.9 ; Primary insomnia F51.01 and Allergic rhinitis J30.9 [facility] [address] [facility] [id number] [address] [place] [address] Jun, [facility] [address] [place] [id number] [place] [address] Jun, Leg wound, right, initial en counter S81.801A and Encounter for immunization Z23 [place] [address] [place] [id number] [place] [address] Jun, Open wound of right ear, uns pecified open wound type, initial encounter S01.301A [place] [address] [place] [id number] [place] [address] May, B12 deficiency E53.8 [place] [address] [place] [id number] [place] [address] May, [place] [address] [place] [id number] [place] [address] May, [place] [address] [place] [id number] [place] [address] May, Chronic pain syndrome G89.4 ; Chronic prescription opiate use Z79.899 ; Allergic rhinitis J30.9 ; Essential hypertension I10 and Non-healing skin lesion L98.9 [place] [address] [place] [id number] [place] [address] Apr, [place] [address] [place] [id number] [place] [address] March, [place] [address] [address] Feb, [facility] [address] [facility] [id number] [address] [place] [address] Feb, [facility] [address] [address] Feb, Chronic pain syndrome G89.4 ; Anxiety F41.9 ; B12 deficiency E53.8 ; Allergic rhinitis J30.9 ; Fibromyalgia M79.7 ; Actinic keratosis L57.0 ; Skin rash R21 ; Open wound of right ear, unspecified open wound type, initial encounter S01.301A ; Subacromial bursitis, right M75.51 ; GERD (gastroesophageal reflux disease) K21.9 and Chronic obstructive pulmonary disease, unspecified COPD type J44.9 [facility] [address] [place] [id number] [place] [address] Jan, [facility] [address] [address] Jan, Essential hypertension I10 [facility] [address] [place] [id number] [place] [address] Jan, [facility] [address] [address] Jan, [facility] [address] [place] [id number] [place] [address] Jan, [facility] [address] [place] [id number] [place] [address] Dec, [facility] [address] [facility] [id number] [address] [place] [address] Dec, Essential hypertension I10 [facility] [address] [facility] [id number] [address] [place] [address] Dec, [facility] [address] [place] [id number] [place] [address] Dec, B12 deficiency E53.8 and Ess ential hypertension I10 [facility] [address] [place] [id number] [place] [address] Dec, [facility] [address] [facility] [id number] [address] [place] [address] Nov, Right shoulder pain M25.511 [facility] [address] [facility] [id number] [address] [place] [address] Nov, Right shoulder pain M25.511 [facility] [address] [place] [id number] [address] [place] [address] Nov, Essential hypertension I10 a nd B12 deficiency E53.8 [facility] [address] [address] Nov, Major depressive disorder, r ecurrent episode, unspecified severity F33.9 ; Anxiety F41.9 ; Chronic pain syndrome G89.4 ; Essential hypertension I10 ; Hyperlipidemia, unspecified hyperlipidemia E78.5 ; Chronic prescription opiate use Z79.899 ; Allergic rhinitis J30.9 ; B12 deficiency E53.8 and Right shoulder pain M25.511 [facility] [address] [place] [address] Oct, [facility] [address] [place] [id number] [place] [address] Oct, [facility] [address] [place] [id number] [place] [address] Sep, [facility] [address] [facility] [id number] [address] [place] [address] Sep, [facility] [address] [facility] [id number] [address] [place] [address] Aug, [facility] [address] [facility] [id number] [address] [place] [address] Aug, [facility] [address] [place] [id number] [place] [address] Aug, [facility] [address] [place] [id number] [place] [address] Aug, Other constipation K59.09 ; Hyperlipidemia, unspecified hyperlipidemia E78.5 ; Essential hypertension I10 ; Primary insomnia F51.01 ; Anxiety F41.9 ; Chronic pain syndrome G89.4 ; Right shoulder pain M25.511 and Acute cystitis without hematuria N30.00 [facility] [address] [id number] [address] [place] [id number] Jul, [facility] [address] [id number] [address] [place] [id number] Jul, [facility] [address] [id number] [address] [place] [id number] Jun, [facility] [address] [id number] [address] [place] [id number] Jun, [facility] [address] [id number] [address] [place] [id number] Jun, [facility] [address] [id number] [address] [place] [id number] May, [facility] [address] [id number] [address] [place] [id number] May, Other chronic pain 338.29 ; Hypertension 401.9 and Constipation due to opioid therapy 564.09 [facility] [address] [facility] [id number] [address] [place] [id number] May, [facility] [address] [id number] [address] [place] [id number] May, [facility] [address] [id number] [address] [place] [id number] Apr, [facility] [address] [id number] [address] [place] [id number] Apr, Unspecified essential hypert ension 401.9 [facility] [address] [facility] [facility] [id number] [address] [place] [address] Apr, [facility] [address] [id number] [address] [place] [address], [place] [address] 16 Apr, 2015 [facility] [address] [id number] [address] [place] [address], [place] [address] 16 Apr, 2015 [facility] [address] [id number] [address] [place] [address], [place] [address] 16 Apr, 2015 [facility] [address] [id number] [address] [place] [address], [place] [address] 15 Apr, 2015 [facility] [address] [id number] [address] [place] [address], [place] [address] 12 Apr, 2015 [facility] [address] [id number] [address] [place] [address], [place] [address] March, Unspecified essential hypert ension 401.9 [facility] [address] [id number] [address] [place] [address], [place] [address] March, [facility] [address] [id number] [address] [place] [address], [place] [address] March, [facility] [address] [id number] [address] [place] [address], [place] [address] 14 Feb, 2015 [facility] [address] [id number] [address] [place] [address], [place] [address] 13 Feb, 2015 [facility] [address] [id number] [address] [place] [address], [place] [address] 23 Jan, 2015 [facility] [address] [id number] [address] [place] [address], [place] [address] 23 Jan, 2015 [facility] [address] [id number] [address] [place] [address], [place] [address] 17 Jan, 2015 [facility] [address] [id number] [address] [place] [address], [place] [address] 17 Jan, 2015 [facility] [address] [id number] [address] [place] [address], [place] [address] 13 Jan, 2015 [facility] [address] [id number] [address] [place] [address] Jan, [facility] [address] [id number] [address] [place] [address], [place] [address] Jan, [facility] [address] [id number] [address] [place] [address], [place] [address] 16 Dec, 2014 [facility] [address] [id number] [address] [place] [address], [place] [address] 16 Dec, 2014 [facility] [address] [id number] [address] [place] [address], [place] [address] Dec, [facility] [address] [id number] [address] [place] [address], [place] [address] Nov, [facility] [address] [id number] [address] [place] [address], [place] [address] Nov, [facility] [address] [id number] [address] [place] [address], [place] [address] Oct, [facility] [address] [id number] [address] [place] [address], [place] [address] Oct, [facility] [address] [id number] [address] [place] [address], [place] [address] Oct, [facility] [address] [id number] [address] [place] [address], [place] [address] Oct, [facility] [address] [id number] [address] [place] [address], [place] [address] Oct, [facility] [address] [id number] [address] [place] [address], [place] [address] Oct, [facility] [address] [id number] [address] [place] [address], [place] [address] Oct, [facility] [address] [id number] [address] [place] [address], [place] [address] Oct, [facility] [address] [id number] [address] [place] [address], [place] [address] Sep, [facility] [address] [id number] [address] [place] [address], [place] [address] Sep, [facility] [address] [id number] [address] [place] [address], [place] [address] Sep, [facility] [address] [id number] [address] [place] [address], [place] [address] Sep, [facility] [address] [id number] [address] [place] [address], [place] [address] Sep, [facility] [address] [id number] [address] [place] [address], [place] [address] Sep, [facility] [address] [id number] [address] [place] [address], [place] [address] Aug, [facility] [address] [id number] [address] [place] [address], [place] [address] Aug, [facility] [address] [id number] [address] [place] [address], [place] [address] Aug, [facility] [address] [id number] [address] [place] [address], [place] [address] Aug, [facility] [address] [id number] [address] [place] [address], [place] [address] Aug, [facility] [address] [id number] [address] [place] [address], [place] [address] Aug, [facility] [address] [id number] [address] [place] [address], [place] [address] Aug, [facility] [address] [id number] [address] [place] [address], [place] [address] Aug, [facility] [address] [id number] [address] [place] [address], [place] [address] Aug, [facility] [address] [id number] [address] [place] [address], [place] [address] Aug, [facility] [address] [id number] [address] [place] [address], [place] [address] Jul, [facility] [address] [id number] [facility] [address] Jul, [facility] [address] [id number] [address] [place] [address], [place] [address] Jul, [facility] [address] [id number] [address] [place] [address], [place] [address] Jul, [facility] [address] [id number] [address] [place] [address], [place] [address] Jul, [facility] [address] [id number] [address] [place] [address], [place] [address] Jul, [facility] [address] [id number] [address] [place] [address], [place] [address] Jun, [facility] [address] [id number] [address] [place] [address], [place] [address] Jun, [facility] [address] [id number] [address] [place] [address], [place] [address] Jun, [facility] [address] [id number] [address] [place] [address], [place] [address] Jun, [facility] [address] [id number] [address] [place] [address], [place] [address] Jun, [facility] [address] [id number] [address] [place] [address], [place] [address] Jun, [facility] [address] [id number] [address] [place] [address], [place] [address] May, [facility] [address] [id number] [address] [place] [address], [place] [address] May, [facility] [address] [id number] [address] [place] [address], [place] [address] May, [facility] [address] [id number] [address] [place] [address], [place] [address] May, [facility] [address] [id number] [address] [place] [address], [place] [address] May, [facility] [address] [id number] [address] [place] [address], [place] [address] Apr, [facility] [address] [id number] [address] [place] [address], [place] [address] Apr, [facility] [address] [id number] [address] [place] [address], [place] [address] Apr, [facility] [address] [id number] [address] [place] [address], [place] [address] Apr, [facility] [address] [id number] [address] [place] [address], [place] [address] March, [facility] [address] [id number] [address] [place] [address], [place] [address] March, [facility] [address] [id number] [address] [place] [address], [place] [address] March, [facility] [address] [id number] [address] [place] [address], [place] [address] March, [facility] [address] [id number] [address] [place] [address], [place] [address] March, [facility] [address] [id number] [address] [place] [address], [place] [address] March, [facility] [address] [id number] [address] [place] [address], [place] [address] Feb, [facility] [address] [id number] [address] [place] [address], [place] [address] Feb, [facility] [address] [id number] [address] [place] [address], [place] [address] Feb, [facility] [address] [id number] [address] [place] [address], [place] [address] Feb, [facility] [address] [id number] [address] [place] [address], [place] [address] Feb, [facility] [address] [id number] [facility] [address] 08 Feb, 2014 [facility] [address] [id number] [facility] [address] Feb, [facility] [address] [id number] [facility] [address] Feb, [facility] [address] [id number] [address] [place] [address], [place] [address] Jan, [facility] [address] [id number] [address] [place] [address], [place] [address] Jan, [facility] [address] [id number] [address] [place] [address], [place] [address] Jan, [facility] [address] [id number] [address] [place] [address], [place] [address] Jan, [facility] [address] [id number] [address] [place] [address], [place] [address] Jan, [facility] [address] [id number] [address] [place] [address], [place] [address] Jan, [facility] [address] [id number] [address] [place] [address], [place] [address] Dec, [facility] [address] [id number] [address] [place] [address], [place] [address] Dec, [facility] [address] [id number] [address] [place] [address], [place] [address] Nov, [facility] [address] [id number] [address] [place] [address], [place] [address] Nov, [facility] [address] [id number] [address] [place] [address], [place] [address] Nov, [facility] [address] [id number] [address] [place] [address], [place] [address] Nov, [facility] [address] [id number] [address] [place] [address], [place] [address] Nov, [facility] [address] [id number] [address] [place] [address], [place] [address] Nov, [facility] [address] [id number] [address] [place] [address], [place] [address] Nov, [facility] [address] [id number] [address] [place] [address], [place] [address] Nov, [facility] [address] [id number] [address] [place] [address], [place] [address] Nov, [facility] [address] [id number] [address] [place] [address], [place] [address] Nov, [facility] [address] [id number] [address] [place] [address], [place] [address] Nov, [facility] [address] [id number] [address] [place] [address], [place] [address] Nov, [facility] [address] [id number] [address] [place] [address], [place] [address] Nov, [facility] [address] [id number] [address] [place] [address], [place] [address] Nov, [facility] [address] [id number] [address] [place] [address], [place] [address] Nov, [facility] [address] [id number] [address] [place] [address], [place] [address] Oct, [facility] [address] [id number] [address] [place] [address], [place] [address] Oct, [facility] [address] [id number] [address] [place] [address], [place] [address] Oct, [facility] [address] [id number] [address] [place] [address], [place] [address] Oct, [facility] [address] [id number] [address] [place] [address], [place] [address] Oct, [facility] [address] [id number] [address] [place] [address] Oct, [facility] [address] [facility] [id number] [address] [place] [address] Oct, [facility] [address] [facility] [id number] [address] [place] [address] Oct, [facility] [address] [facility] [id number] [address] [place] [address] Oct, [facility] [address] [facility] [id number] [address] [place] [address] Aug, [facility] [address] [facility] [id number] [address] [place] [address] Aug, IMMUNIZATIONS No Known Immunizations SOCIAL HISTORY Never Assessed REASON FOR VISIT PLAN OF CARE VITAL SIGNS Height 68.75 in 2013-09-23 Weight 212.5 lbs 2013-09-23 Temperature 97.2 degrees Fahrenheit 2013-09-23 Heart Rate 60 bpm 2013-09-23 Respiratory Rate 20 2013-09-23 Blood pressure systolic 142 mmHg 2013-09-23 Blood pressure diastolic 92 mmHg 2013-09-23 MEDICATIONS Unknown Medications RESULTS No Results PROCEDURES No Known procedures INSTRUCTIONS MEDICATIONS ADMINISTERED No Known Medications MEDICAL (GENERAL) HISTORY Type Description Date Medical History hypertension Medical History asthma Medical History Arthritis Medical History Hypoglycemia Medical History Heart Cath 11/05/2013 Medical History herniated disc--Seen by Dr. Troy Michelle pain specialist in [place], [place] Medical History Chronic low back pain Medical History depression Medical History anxiety Medical History Panic attacks Medical History Vitamin B 12 deficiency r/t gastric bypa ss Medical History Low back injections 11/2012, 06/2013 Medical History Thrombocytosis Surgical History tonsillectomy Surgical History gastric bypass--2003-in [facility] Unsure of Dr's name. No [...]
--- OUTSIDE RECORDS SUMMARY | 2020-06-19 02:24 | XMS REPORT ---
Author Author ARMANDO Mahsa ASHVIN Organization [facility] Address [address] [place] [address] Care Team Providers Care Structural Engineering Technician Name Role Phone ARMANDONYASIA DIAZY Unavailable PROBLEMS Type Condition ICD9-CM Code [id number] Code Onset Dates Condition S tatus SNOMED Code Problem Chronic pain syndrome G89.4 Active 778581849 Problem Other constipation K59.09 Active 1 [id number] Problem Anxiety F41.9 Active 45031454 Problem Primary insomnia F51.01 Active 193 878691 Problem Atherosclerosis of [place] co ronary artery of [place] heart without angina pectoris I25.10 Active [id number] Problem Essential hypertension I10 Active 82561057 Problem Hyperlipidemia, unspecified hyperlipidemia E78.5 Active 90550160 Problem Major depressive disorder, recurrent episode, un specified severity F33.9 Active 08314032 Problem Allergic rhinitis J30.9 Active 61 965102 Problem Fibromyalgia M79.7 Active 8714269 7 Problem GERD (gastroesophageal reflux disease) K21.9 Active 297359833 Problem Degenerative disc disease, thoracic M51.34 Active 96327308 Problem Bilateral low back pain, with sciatica presence unspecifie d M54.5 Active 227303421 Problem Moderate episode of recurrent major depressive disorder F33.1 Active 512380063 Problem B12 deficiency E53.8 Active 68857 4004 Problem Chronic obstructive pulmonary disease, unspecified COPD ty pe J44.9 Active 95296832 Problem CKD (chronic kidney disease) stage 3, GFR 30-59 ml/min N18.3 Active 773020503 Problem Cannabis abuse F12.10 Active 82028 009 Problem Degenerative disc disease, cervical M50.30 Active 57711205 ALLERGIES No Information ENCOUNTERS Encounter Location Date Diagnosis [facility] [address] [facility] [id number] [address] [place] [phone] Apr, [facility] [address] [facility] [id number] [address] [place] [id number] 08 Feb, 2020 CKD (chronic kidney disease) stage 3, GFR 30-59 ml/min N18.3 [address] [facility] [address] [facility] [id number] [address] [place] [id number] 07 Feb, 2020 CKD (chronic kidney disease) stage 3, GFR 30-59 ml/min N18.3 [address] [facility] [address] [facility] [id number] [address] [place] [phone] Jan, [facility] [address] [facility] [id number] [address] [place] [phone] Nov, [facility] [address] [facility] [id number] [address] [place] [address] Oct, Moderate episode of recurren t major depressive disorder F33.1 ; Chronic obstructive pulmonary disease, unspecified COPD type J44.9 ; CKD (chronic kidney disease) stage 3, GFR 30-59 ml/min N18.3 ; Essential hypertension I10 and Possible exposure to STD Z20.2 [facility] [address] [facility] [id number] [address] [place] [phone] Oct, Essential hypertension I10 [facility] [address] [facility] [id number] [address] [place] [phone] Oct, [facility] [address] [facility] [id number] [address] [place] [phone] Sep, Essential hypertension I10 [facility] [address] [facility] [id number] [address] [place] [id number] Sep, [facility] [address] [facility] [id number] [address] [place] [id number] Sep, [facility] [address] [facility] [id number] [address] [place] [id number] 14 Sep, 2019 [facility] [address] [facility] [id number] [address] [place] [phone] Aug, Essential hypertension I10 [facility] [address] [place] [id number] [address] [place] [id number] Aug, Essential hypertension I10 [place] [address] [address] Jul, Allergic rhinitis J30.9 ; CK D (chronic kidney disease) stage 3, GFR 30-59 ml/min N18.3 ; Essential hypertension I10 and Moderate episode of recurrent major depressive disorder F33.1 [place] [address] [address] Jul, Elevated platelet count R79. 89 ; B12 deficiency E53.8 ; Hyperlipidemia, unspecified hyperlipidemia E78.5 and CKD (chronic kidney disease) stage 3, GFR 30-59 ml/min N18.3 [place] [address] [address] Apr, B12 deficiency E53.8 [place] [address] [address] Jan, Periumbilical hernia K42.9 ; CKD (chronic kidney disease) stage 3, GFR 30-59 ml/min N18.3 ; Essential hypertension I10 ; GERD (gastroesophageal reflux disease) K21.9 ; Hyperlipidemia, unspecified hyperlipidemia E78.5 and Major depressive disorder, recurrent episode, unspecified severity F33.9 [place] [address] [id number] Dec, Anxiety F41.9 [place] [address] [place] [id number] [address] [place] [address] Nov, Elevated platelet count R79. 89 [place] [address] [address] Nov, [place] [address] [address] Nov, Elevated platelet count R79. 89 [place] [address] [place] [id number] [address] [place] [phone] Nov, Anxiety F41.9 [place] [address] [facility] [id number] [address] [place] [phone] Nov, Bilateral low back pain, wit h sciatica presence unspecified M54.5 ; Cervicalgia M54.2 ; Degenerative disc disease, cervical M50.30 and Degenerative disc disease, thoracic M51.34 [place] [address] [place] [id number] [place] [address] Nov, Chronic pain syndrome G89.4 and Bilateral low back pain, with sciatica presence unspecified M54.5 [place] [address] [place] [id number] [place] [address] Oct, Umbilical hernia without obs truction and without gangrene K42.9 [place] [address] [place] [id number] [place] [address] Oct, Chronic pain syndrome G89.4 [place] [address] [address] Oct, Chronic pain syndrome G89.4 and Anxiety F41.9 [place] [address] [address] Oct, Elevated platelet count R79. 89 [place] [address] [place] [id number] [place] [address] Oct, CKD (chronic kidney disease) stage 3, GFR 30-59 ml/min N18.3 ; Other chest pain R07.89 ; Acute midline thoracic back pain M54.6 ; Essential hypertension I10 and History of osteoporosis Z87.39 [place] [address] [place] [id number] [address] [place] [address] Sep, Chronic pain syndrome G89.4 [place] [address] [place] [id number] [address] [place] [id number] 16 Sep, 2018 [place] [address] [place] [id number] [place] [address] Sep, Anxiety F41.9 and Chronic pa in syndrome G89.4 [place] [address] [facility] [id number] [address] [place] [address] Aug, Chronic pain syndrome G89.4 and Anxiety F41.9 [place] [address] [place] [id number] [address] [place] [phone] Aug, [place] [address] [place] [id number] [address] [place] [phone] Aug, Cannabis abuse F12.10 and Co ntrolled substance agreement terminated Z91.14 [place] [address] [place] [id number] [address] [place] [address] Jul, Chronic pain syndrome G89.4 ; Bilateral low back pain, with sciatica presence unspecified M54.5 ; Chronic prescription opiate use Z79.899 ; Essential hypertension I10 ; Hyperlipidemia, unspecified hyperlipidemia E78.5 ; CKD (chronic kidney disease) stage 3, GFR 30-59 ml/min N18.3 and Allergic rhinitis J30.9 [place] [address] [place] [id number] [address] [place] [address] Jul, Chronic pain syndrome G89.4 and Anxiety F41.9 [place] [address] [place] [id number] [address] [place] [phone] Jul, Screening for breast cancer Z12.31 and Major depressive disorder, recurrent episode, unspecified severity F33.9 [place] [address] [place] [id number] [address] [place] [address] Jun, Chronic pain syndrome G89.4 and Anxiety F41.9 [place] [address] [place] [id number] [address] [place] [address] May, Chronic pain syndrome G89.4 and Anxiety F41.9 [place] [address] [place] [id number] [address] [place] [address] Apr, Anxiety F41.9 [place] [address] [place] [id number] [address] [place] [address] Apr, Chronic prescription opiate use Z79.899 ; Chronic pain syndrome G89.4 ; Essential hypertension I10 ; Allergic rhinitis J30.9 and CKD (chronic kidney disease) stage 3, GFR 30-59 ml/min N18.3 [place] [address] [address] Apr, [place] [address] [place] [id number] [place] [address] March, Anxiety F41.9 and Chronic pa in syndrome G89.4 [place] [address] [address] March, CKD (chronic kidney disease) stage 3, GFR 30-59 ml/min N18.3 ; B12 deficiency E53.8 and Hyperlipidemia, unspecified hyperlipidemia E78.5 [place] [address] [address] March, Anxiety F41.9 and Chronic pa in syndrome G89.4 [place] [address] [place] [id number] [address] [place] [phone] Feb, Anxiety F41.9 and Chronic pa in syndrome G89.4 [place] [address] [address] Jan, B12 deficiency E53.8 [place] [address] [address] Jan, [place] [address] [address] Jan, Anxiety F41.9 ; Chronic pain syndrome G89.4 and Essential hypertension I10 [place] [address] [address] Jan, CKD (chronic kidney disease) stage 3, [...] Subacromial bursitis of right shoulder joint M75.51 [facility] [address] [id number] [address] [place] [phone] 28 Dec, [address] [facility] [address] [facility] [id number] [address] [place] [address] 15 Dec, 2017 Chronic pain syndrome G89.4 [place] [address] [facility] [id number] [address] [place] [phone] Dec, Chronic pain syndrome G89.4 [place] [address] [facility] [id number] [address] [place] [phone] Nov, [place] [address] [facility] [id number] [address] [place] [phone] Nov, Chronic pain syndrome G89.4 and Anxiety F41.9 [place] [address] [facility] [id number] [address] [place] [address] Oct, Chronic pain syndrome G89.4 ; Other constipation K59.09 and Chronic prescription opiate use Z79.899 [place] [address] [facility] [id number] [address] [place] [phone] Oct, Chronic pain syndrome G89.4 and Anxiety F41.9 [place] [address] [facility] [id number] [address] [place] [address] Sep, Essential hypertension I10 [facility] [address] [facility] [id number] [address] [place] [phone] 16 Sep, 2017 Chronic pain syndrome G89.4 and Anxiety F41.9 [place] [address] [facility] [id number] [address] [place] [phone] Aug, Chronic pain syndrome G89.[address] [facility] [address] [facility] [id number] [address] [place] [id number] Jul, Essential hypertension I10 [place] [address] [place] [id number] [address] [place] [phone] Jul, Chronic obstructive pulmonar y disease, unspecified COPD type J44.9 [place] [address] [place] [id number] [address] [place] [address] Jul, Chronic pain syndrome G89.4 and Anxiety F41.9 [place] [address] [address] 13 Jul, 2017 Chronic pain syndrome G89.4 ; Essential hypertension I10 ; Fibromyalgia M79.7 ; CKD (chronic kidney disease) stage 3, GFR 30-59 ml/min N18.3 ; Subacromial bursitis, right M75.51 and Goals of care, co unseling/discussion Z71.89 [place] [address] [address] Jun, Chronic pain syndrome G89.4 and Anxiety F41.9 [place] [address] [address] May, Chronic pain syndrome G89.4 and Anxiety F41.9 [place] [address] [place] [id number] [place] [address] Apr, Chronic pain syndrome G89.4 and Anxiety F41.9 [place] [address] [address] 14 Apr, 2017 Drug induced constipation K5 9.03 ; Chronic pain syndrome G89.4 and CKD (chronic kidney disease) stage 3, GFR 30-59 ml/min N18.3 [place] [address] [place] [id number] [place] [address] 02 Apr, 2017 Chronic pain syndrome G89.4 and Anxiety F41.9 [place] [address] [place] [id number] [address] [place] [address] March, Chronic pain syndrome G89.4 and Anxiety F41.9 [place] [address] [id number] [address] [place] [address] March, Decreased GFR R94.4 [facility] [address] [facility] [id number] [address] [place] [phone] Feb, [facility] [address] [facility] [id number] [address] [place] [address] Feb, Chronic pain syndrome G89.[address] [facility] [address] [facility] [id number] [address] [place] [phone] Jan, Decreased GFR R94.4 [facility] [address] [facility] [id number] [address] [place] [id number] Jan, Decreased GFR R94.4 [facility] [address] [facility] [id number] [address] [place] [phone] Jan, Allergic rhinitis J30.9 ; Es sential hypertension I10 ; Major depressive disorder, recurrent episode, unspecified severity F33.9 and Primary insomnia F51.01 [facility] [address] [facility] [id number] [address] [place] [address] Jan, Acute right-sided thoracic b ack pain M54.6 ; Subacromial bursitis of right shoulder joint M75.51 ; Chronic pain syndrome G89.[address] [facility] [address] [facility] [id number] [address] [place] [phone] Jan, Decreased GFR R94.4 [facility] [address] [facility] [id number] [address] [place] [phone] Dec, Decreased GFR R94.4 [facility] [address] [facility] [id number] [address] [place] [id number] Dec, Decreased GFR R94.4 [facility] [address] [facility] [id number] [address] [place] [address] Dec, Decreased GFR R94.4 [facility] [address] [facility] [id number] [address] [place] [id number] 13 Dec, 2016 Decreased GFR R94.4 [place] [address] [facility] [id number] [address] [place] [phone] 09 Dec, 2016 Anxiety F41.9 and Bilateral low back pain, with sciatica presence unspecified M54.5 [place] [address] [place] [id number] [address] [place] [address] Dec, Thrombocytosis D47.3 ; Hyper lipidemia, unspecified hyperlipidemia E78.5 ; Need for hepatitis C screening test Z11.59 and B12 deficiency E53.8 [place] [address] [address] Nov, Need for hepatitis C screeni ng test Z11.59 [place] [address] [address] Nov, Anxiety F41.9 and Bilateral low back pain, with sciatica presence unspecified M54.5 [place] [address] [place] [id number] [address] [place] [address] Oct, Bilateral low back pain, wit h sciatica presence unspecified M54.5 ; Chronic prescription opiate use Z79.899 ; Anxiety F41.9 ; Essential hypertension I10 ; Hyperlipidemia, unspecified hyperlipidemia E78.5 ; Health care maintenance Z00.00 and Thrombocytosis D47.3 [place] [id number] [place] [address] Sep, [place] [address] [place] [id number] [place] [address] Sep, [place] [address] [address] Aug, [place] [address] [place] [id number] [place] [address] Jul, B12 deficiency E53.8 [place] [address] [place] [id number] [address] [place] [address] Jul, [facility] [address] [place] [id number] [address] [place] [address] Jul, Essential hypertension I10 ; Chronic pain syndrome G89.4 ; Anxiety F41.9 ; Screening for breast cancer Z12.39 ; Atherosclerosis of [place] coronary artery of [place] heart without angina pectoris I25.10 ; Major depressive disorder, recurrent episode, unspecified severity F33.9 ; Primary insomnia F51.01 and Allergic rhinitis J30.9 [facility] [address] [facility] [id number] [address] [place] [address] Jun, [facility] [address] [place] [id number] [address] [place] [address] Jun, Leg wound, right, initial en counter S81.801A and Encounter for immunization Z23 [place] [address] [place] [id number] [address] [place] [address] Jun, Open wound of right ear, uns pecified open wound type, initial encounter S01.301A [place] [address] [place] [id number] [address] [place] [address] May, B12 deficiency E53.8 [place] [address] [place] [id number] [place] [address] May, [place] [address] [place] [id number] [place] [address] May, [place] [address] [place] [id number] [place] [address] May, Chronic pain syndrome G89.4 ; Chronic prescription opiate use Z79.899 ; Allergic rhinitis J30.9 ; Essential hypertension I10 and Non-healing skin lesion L98.9 [place] [address] [place] [id number] [address] [place] [address] Apr, [place] [address] [place] [id number] [address] [place] [address] March, [place] [address] [address] Feb, [facility] [address] [facility] [id number] [address] [place] [address] Feb, [facility] [address] [address] Feb, Chronic pain syndrome G89.4 ; Anxiety F41.9 ; B12 deficiency E53.8 ; Allergic rhinitis J30.9 ; Fibromyalgia M79.7 ; Actinic keratosis L57.0 ; Skin rash R21 ; Open wound of right ear, unspecified open wound type, initial encounter S01.301A ; Subacromial bursitis, right M75.51 ; GERD (gastroesophageal reflux disease) K21.9 and Chronic obstructive pulmonary disease, unspecified COPD type J44.9 [facility] [address] [place] [id number] [address] [place] [address] Jan, [facility] [address] [address] Jan, Essential hypertension I10 [facility] [address] [place] [id number] [address] [place] [address] Jan, [facility] [address] [address] Jan, [facility] [address] [place] [id number] [address] [place] [address] Jan, [facility] [address] [place] [id number] [address] [place] [address] Dec, [facility] [address] [facility] [id number] [address] [place] [address] Dec, Essential hypertension I10 [facility] [address] [facility] [id number] [address] [place] [address] Dec, [facility] [address] [place] [id number] [address] [place] [address] Dec, B12 deficiency E53.8 and Ess ential hypertension I10 [facility] [address] [place] [id number] [address] [place] [address] Dec, [facility] [address] [facility] [id number] [address] [place] [address] Nov, Right shoulder pain M25.511 [facility] [address] [facility] [id number] [address] [place] [address] Nov, Right shoulder pain M25.511 [facility] [address] [place] [id number] [address] [place] [address] Nov, Essential hypertension I10 a nd B12 deficiency E53.8 [facility] [address] [address] Nov, Major depressive disorder, r ecurrent episode, unspecified severity F33.9 ; Anxiety F41.9 ; Chronic pain syndrome G89.4 ; Essential hypertension I10 ; Hyperlipidemia, unspecified hyperlipidemia E78.5 ; Chronic prescription opiate use Z79.899 ; Allergic rhinitis J30.9 ; B12 deficiency E53.8 and Right shoulder pain M25.511 [facility] [id number] [place] [address] Oct, [facility] [address] [place] [id number] [address] [place] [id number] Oct, [facility] [address] [place] [id number] [address] [place] [address] Sep, [facility] [address] [facility] [id number] [address] [place] [phone] Sep, [facility] [address] [facility] [id number] [address] [place] [address] Aug, [facility] [address] [facility] [id number] [address] [place] [id number] Aug, [facility] [address] [place] [id number] [address] [place] [address] Aug, [facility] [address] [place] [id number] [address] [place] [address] Aug, Other constipation K59.09 ; Hyperlipidemia, unspecified hyperlipidemia E78.5 ; Essential hypertension I10 ; Primary insomnia F51.01 ; Anxiety F41.9 ; Chronic pain syndrome G89.4 ; Right shoulder pain M25.511 and Acute cystitis without hematuria N30.00 [facility] [address] [id number] [address] [place] [id number] Jul, [facility] [address] [id number] [address] [place] [id number] Jul, [facility] [address] [id number] [address] [place] [phone] Jun, [facility] [address] [id number] [address] [place] [address] Jun, [facility] [address] [id number] [address] [place] [phone] Jun, [facility] [address] [id number] [address] [place] [address] May, [facility] [address] [id number] [address] [place] [address] May, Other chronic pain 338.29 ; Hypertension 401.9 and Constipation due to opioid therapy 564.09 [facility] [address] [facility] [id number] [address] [place] [id number] May, [facility] [address] [id number] [address] [place] [id number] May, [facility] [address] [id number] [address] [place] [phone] Apr, [facility] [address] [id number] [address] [place] [id number] Apr, Unspecified essential hypert ension 401.9 [facility] [address] [facility] [id number] [address] [place] [phone] Apr, [facility] [address] [id number] [address] [place] [address], [place] [id number] 16 Apr, 2015 [facility] [address] [id number] [address] [place] [address], [place] [id number] 16 Apr, 2015 [facility] [address] [id number] [address] [place] [address], [place] [id number] 16 Apr, 2015 [facility] [address] [id number] [address] [place] [address], [place] [id number] 15 Apr, 2015 [facility] [address] [id number] [address] [place] [address], [place] [id number] 12 Apr, 2015 [facility] [address] [id number] [address] [place] [address], [place] [id number] March, Unspecified essential hypert ension 401.9 [facility] [address] [id number] [address] [place] [address], [place] [id number] March, [facility] [address] [id number] [address] [place] [address], [place] [address] March, [facility] [address] [id number] [address] [place] [address], [place] [address] 14 Feb, 2015 [facility] [address] [id number] [address] [place] [address], [place] [address] 13 Feb, 2015 [facility] [address] [id number] [address] [place] [address], [place] [address] 23 Jan, 2015 [facility] [address] [id number] [address] [place] [address], [place] [address] 23 Jan, 2015 [facility] [address] [id number] [address] [place] [address], [place] [address] 17 Jan, 2015 [facility] [address] [id number] [address] [place] [address], [place] [address] 17 Jan, 2015 [facility] [address] [id number] [address] [place] [address], [place] [address] 13 Jan, 2015 [facility] [address] [id number] [address] [place] [id number] Jan, [facility] [address] [id number] [address] [place] [address], [place] [address] Jan, [facility] [address] [id number] [address] [place] [address], [place] [address] 16 Dec, 2014 [facility] [address] [id number] [address] [place] [address], [place] [address] 16 Dec, 2014 [facility] [address] [id number] [address] [place] [address], [place] [address] Dec, [facility] [address] [id number] [address] [place] [address], [place] [address] Nov, [facility] [address] [id number] [address] [place] [address], [place] [address] Nov, [facility] [address] [id number] [address] [place] [address], [place] [address] Oct, [facility] [address] [id number] [address] [place] [address], [place] [address] Oct, [facility] [address] [id number] [address] [place] [address], [place] [address] Oct, [facility] [address] [id number] [address] [place] [address], [place] [address] Oct, [facility] [address] [id number] [address] [place] [address], [place] [address] Oct, [facility] [address] [id number] [address] [place] [address], [place] [address] Oct, [facility] [address] [id number] [address] [place] [address], [place] [address] Oct, [facility] [address] [id number] [address] [place] [address], [place] [address] Oct, [facility] [address] [id number] [address] [place] [address], [place] [address] Sep, [facility] [address] [id number] [address] [place] [address], [place] [address] Sep, [facility] [address] [id number] [address] [place] [address], [place] [address] Sep, [facility] [address] [id number] [address] [place] [address], [place] [address] Sep, [facility] [address] [id number] [address] [place] [address], [place] [address] Sep, [facility] [address] [id number] [address] [place] [address], [place] [address] Sep, [facility] [address] [id number] [address] [place] [address], [place] [address] Aug, [facility] [address] [id number] [address] [place] [address], [place] [address] Aug, [facility] [address] [id number] [address] [place] [address], [place] [address] Aug, [facility] [address] [id number] [address] [place] [address], [place] [address] Aug, [facility] [address] [id number] [address] [place] [address], [place] [address] Aug, [facility] [address] [id number] [address] [place] [address], [place] [address] Aug, [facility] [address] [id number] [address] [place] [address], [place] [address] Aug, [facility] [address] [id number] [address] [place] [address], [place] [address] Aug, [facility] [address] [id number] [address] [place] [address], [place] [address] Aug, [facility] [address] [id number] [address] [place] [address], [place] [address] Aug, [facility] [address] [id number] [address] [place] [address], [place] [address] Jul, [facility] [address] [id number] [facility] [place] [address] Jul, [facility] [address] [id number] [address] [place] [address], [place] [address] Jul, [facility] [address] [id number] [address] [place] [address], [place] [address] Jul, [facility] [address] [id number] [address] [place] [address], [place] [address] Jul, [facility] [address] [id number] [address] [place] [address], [place] [address] Jul, [facility] [address] [id number] [address] [place] [address], [place] [address] Jun, [facility] [address] [id number] [address] [place] [address], [place] [address] Jun, [facility] [address] [id number] [address] [place] [address], [place] [address] Jun, [facility] [address] [id number] [address] [place] [address], [place] [address] Jun, [facility] [address] [id number] [address] [place] [address], [place] [address] Jun, [facility] [address] [id number] [address] [place] [address], [place] [address] Jun, [facility] [address] [id number] [address] [place] [address], [place] [address] May, [facility] [address] [id number] [address] [place] [address], [place] [address] May, [facility] [address] [id number] [address] [place] [address], [place] [address] May, [facility] [address] [id number] [address] [place] [address], [place] [address] May, [facility] [address] [id number] [address] [place] [address], [place] [address] May, [facility] [address] [id number] [address] [place] [address], [place] [address] Apr, [facility] [address] [id number] [address] [place] [address], [place] [address] Apr, [facility] [address] [id number] [address] [place] [address], [place] [address] Apr, [facility] [address] [id number] [address] [place] [address], [place] [address] Apr, [facility] [address] [id number] [address] [place] [address], [place] [address] March, [facility] [address] [id number] [address] [place] [address], [place] [address] March, [facility] [address] [id number] [address] [place] [address], [place] [address] March, [facility] [address] [id number] [address] [place] [address], [place] [address] March, [facility] [address] [id number] [address] [place] [address], [place] [address] March, [facility] [address] [id number] [address] [place] [address], [place] [address] March, [facility] [address] [id number] [address] [place] [address], [place] [address] Feb, [facility] [address] [id number] [address] [place] [address], [place] [address] Feb, [facility] [address] [id number] [address] [place] [address], [place] [address] Feb, [facility] [address] [id number] [address] [place] [address], [place] [address] Feb, [facility] [address] [id number] [address] [place] [address], [place] [address] Feb, [facility] [address] [id number] [facility] [place] [address] 08 Feb, 2014 [facility] [address] [id number] [facility] [place] [address] Feb, [facility] [address] [id number] [facility] [place] [address] Feb, [facility] [address] [id number] [address] [place] [address], [place] [address] Jan, [facility] [address] [id number] [address] [place] [address], [place] [address] Jan, [facility] [address] [id number] [address] [place] [address], [place] [address] Jan, [facility] [address] [id number] [address] [place] [address], [place] [address] Jan, [facility] [address] [id number] [address] [place] [address], [place] [address] Jan, [facility] [address] [id number] [address] [place] [address], [place] [address] Jan, [facility] [address] [id number] [address] [place] [address], [place] [address] Dec, [facility] [address] [id number] [address] [place] [address], [place] [address] Dec, [facility] [address] [id number] [address] [place] [address], [place] [address] Nov, [facility] [address] [id number] [address] [place] [address], [place] [address] Nov, [facility] [address] [id number] [address] [place] [address], [place] [address] Nov, [facility] [address] [id number] [address] [place] [address], [place] [address] Nov, [facility] [address] [id number] [address] [place] [address], [place] [address] Nov, [facility] [address] [id number] [address] [place] [address], [place] [address] Nov, [facility] [address] [id number] [address] [place] [address], [place] [address] Nov, [facility] [address] [id number] [address] [place] [address], [place] [address] Nov, [facility] [address] [id number] [address] [place] [address], [place] [address] Nov, [facility] [address] [id number] [address] [place] [address], [place] [address] Nov, [facility] [address] [id number] [address] [place] [address], [place] [address] Nov, [facility] [address] [id number] [address] [place] [address], [place] [address] Nov, [facility] [address] [id number] [address] [place] [address], [place] [address] Nov, [facility] [address] [id number] [address] [place] [address], [place] [address] Nov, [facility] [address] [id number] [address] [place] [address], [place] [address] Nov, [facility] [address] [id number] [address] [place] [address], [place] [address] Oct, [facility] [address] [id number] [address] [place] [address], [place] [address] Oct, [facility] [address] [id number] [address] [place] [address], [place] [address] Oct, [facility] [address] [id number] [address] [place] [address], [place] [address] Oct, [facility] [address] [id number] [address] [place] [address], [place] [address] Oct, [facility] [address] [id number] [address] [place] [id number] Oct, [facility] [address] [facility] [id number] [address] [place] [id number] Oct, [facility] [address] [facility] [id number] [address] [place] [id number] Oct, [facility] [address] [facility] [id number] [address] [place] [id number] Oct, [facility] [address] [facility] [id number] [address] [place] [id number] Aug, [facility] [address] [facility] [id number] [address] [place] [id number] Aug, IMMUNIZATIONS No Known Immunizations SOCIAL HISTORY [...] by Dr. Troy Michelle pain specialist in [place], [place] Medical History Chronic low back pain Medical History depression Medical History anxiety Medical History Panic attacks Medical History Vitamin B 12 deficiency r/t gastric bypa ss Medical History Low back injections 11/2012, 06/2013 Medical History Thrombocytosis Surgical History tonsillectomy Surgical History gastric bypass--2003-in [facility] [place] Unsure of Dr's name. No [...]
--- OUTSIDE RECORDS SUMMARY | 2020-06-19 02:24 | XMS REPORT ---
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 Name Role Phone ARMANDONYASIA DIAZY Unavailable PROBLEMS Type Condition ICD9-CM Code NVP70-ZE Code Onset Dates Condition S tatus SNOMED Code Problem Chronic pain syndrome G89.4 Active 011015104 Problem Other constipation K59.09 Active 1 [id number] Problem Anxiety F41.9 Active 15038396 Problem Primary insomnia F51.01 Active 193 602024 Problem Atherosclerosis of [place] co ronary artery of [place] heart without angina pectoris I25.10 Active [id number] Problem Essential hypertension I10 Active 10873664 Problem Hyperlipidemia, unspecified hyperlipidemia E78.5 Active 27867695 Problem Major depressive disorder, recurrent episode, un specified severity F33.9 Active 34256965 Problem Allergic rhinitis J30.9 Active 61 526570 Problem Fibromyalgia M79.7 Active 3167469 7 Problem GERD (gastroesophageal reflux disease) K21.9 Active 573224181 Problem Degenerative disc disease, thoracic M51.34 Active 80238209 Problem Bilateral low back pain, with sciatica presence unspecifie d M54.5 Active 314022836 Problem Moderate episode of recurrent major depressive disorder F33.1 Active 593476068 Problem B12 deficiency E53.8 Active 27631 4004 Problem Chronic obstructive pulmonary disease, unspecified COPD ty pe J44.9 Active 99307314 Problem CKD (chronic kidney disease) stage 3, GFR 30-59 ml/min N18.3 Active 453672841 Problem Cannabis abuse F12.10 Active 42058 009 Problem Degenerative disc disease, cervical M50.30 Active 57036907 ALLERGIES No Information ENCOUNTERS Encounter Location Date Diagnosis [facility] [address] [facility] [id number] [address] [place] [phone] Apr, [facility] [address] [facility] [id number] [address] [place] [phone] 08 Feb, 2020 CKD (chronic kidney disease) stage 3, GFR 30-59 ml/min N18.3 and B12 deficiency E53.8 [facility] [address] [facility] [id number] [address] [place] [phone] 07 Feb, 2020 CKD (chronic kidney disease) stage 3, GFR 30-59 ml/min N18.3 and B12 deficiency E53.8 [facility] [address] [facility] [id number] [address] [place] [phone] Jan, [facility] [address] [facility] [id number] [address] [place] [phone] Nov, [facility] [address] [facility] [id number] [address] [place] [phone] Oct, Moderate episode of recurren t major depressive disorder F33.1 ; Chronic obstructive pulmonary disease, unspecified COPD type J44.9 ; CKD (chronic kidney disease) stage 3, GFR 30-59 ml/min N18.3 ; Essential hypertension I10 and Possible exposure to STD Z20.2 [facility] [address] [facility] [id number] [address] [place] [phone] Oct, Essential hypertension I10 [facility] [address] [facility] [id number] [address] [place] [phone] Oct, [facility] [address] [facility] [id number] [address] [place] [phone] Sep, Essential hypertension I10 [facility] [address] [facility] [id number] [address] [place] [phone] Sep, [facility] [address] [facility] [id number] [address] [place] [phone] Sep, [facility] [address] [facility] [id number] [address] [place] [phone] 14 Sep, 2019 [facility] [address] [facility] [id number] [address] [place] [address] Aug, Essential hypertension I10 [facility] [address] [place] [id number] [address] [place] [phone] Aug, Essential hypertension I10 [place] [address] [address] Jul, Allergic rhinitis J30.9 ; CK D (chronic kidney disease) stage 3, GFR 30-59 ml/min N18.3 ; Essential hypertension I10 and Moderate episode of recurrent major depressive disorder F33.1 [place] [address] [address] Jul, Elevated platelet count R79. 89 ; B12 deficiency E53.8 ; Hyperlipidemia, unspecified hyperlipidemia E78.5 and CKD (chronic kidney disease) stage 3, GFR 30-59 ml/min N18.3 [place] [address] [address] Apr, B12 deficiency E53.8 [place] [address] [address] Jan, Periumbilical hernia K42.9 ; CKD (chronic kidney disease) stage 3, GFR 30-59 ml/min N18.3 ; Essential hypertension I10 ; GERD (gastroesophageal reflux disease) K21.9 ; Hyperlipidemia, unspecified hyperlipidemia E78.5 and Major depressive disorder, recurrent episode, unspecified severity F33.9 [place] [address] [address] Dec, Anxiety F41.9 [place] [address] [place] [id number] [address] [place] [address] Nov, Elevated platelet count R79. 89 [place] [address] [address] Nov, [place] [address] [address] Nov, Elevated platelet count R79. 89 [place] [address] [place] [id number] [address] [place] [phone] Nov, Anxiety F41.9 [place] [address] [facility] [id number] [address] [place] [address] Nov, Bilateral low back pain, wit h sciatica presence unspecified M54.5 ; Cervicalgia M54.2 ; Degenerative disc disease, cervical M50.30 and Degenerative disc disease, thoracic M51.34 [place] [address] [place] [id number] [place] [phone] Nov, Chronic pain syndrome G89.4 and Bilateral low back pain, with sciatica presence unspecified M54.5 [place] [address] [place] [id number] [place] [phone] Oct, Umbilical hernia without obs truction and without gangrene K42.9 [place] [address] [place] [id number] [place] [address] Oct, Chronic pain syndrome G89.4 [place] [address] [address] Oct, Chronic pain syndrome G89.4 and Anxiety F41.9 [place] [address] [address] Oct, Elevated platelet count R79. 89 [place] [address] [place] [id number] [place] [address] Oct, CKD (chronic kidney disease) stage 3, GFR 30-59 ml/min N18.3 ; Other chest pain R07.89 ; Acute midline thoracic back pain M54.6 ; Essential hypertension I10 and History of osteoporosis Z87.39 [place] [address] [place] [id number] [address] [place] [address] Sep, Chronic pain syndrome G89.4 [place] [address] [place] [id number] [address] [place] [address] 16 Sep, 2018 [place] [address] [place] [id number] [place] [address] Sep, Anxiety F41.9 and Chronic pa in syndrome G89.4 [place] [address] [facility] [id number] [address] [place] [phone] Aug, Chronic pain syndrome G89.4 and Anxiety F41.9 [place] [address] [place] [id number] [place] [address] Aug, [place] [address] [place] [id number] [place] [address] Aug, Cannabis abuse F12.10 and Co ntrolled substance agreement terminated Z91.14 [place] [address] [place] [id number] [place] [address] Jul, Chronic pain syndrome G89.4 ; Bilateral low back pain, with sciatica presence unspecified M54.5 ; Chronic prescription opiate use Z79.899 ; Essential hypertension I10 ; Hyperlipidemia, unspecified hyperlipidemia E78.5 ; CKD (chronic kidney disease) stage 3, GFR 30-59 ml/min N18.3 and Allergic rhinitis J30.9 [place] [address] [place] [id number] [address] [place] [address] Jul, Chronic pain syndrome G89.4 and Anxiety F41.9 [place] [address] [place] [id number] [place] [address] Jul, Screening for breast cancer Z12.31 and Major depressive disorder, recurrent episode, unspecified severity F33.9 [place] [address] [place] [id number] [place] [address] Jun, Chronic pain syndrome G89.4 and Anxiety F41.9 [place] [address] [place] [id number] [place] [phone] May, Chronic pain syndrome G89.4 and Anxiety F41.9 [place] [address] [place] [id number] [place] [address] Apr, Anxiety F41.9 [place] [address] [place] [id number] [place] [address] Apr, Chronic prescription opiate use Z79.899 ; Chronic pain syndrome G89.4 ; Essential hypertension I10 ; Allergic rhinitis J30.9 and CKD (chronic kidney disease) stage 3, GFR 30-59 ml/min N18.3 [place] [address] [address] Apr, [place] [address] [place] [id number] [place] [address] March, Anxiety F41.9 and Chronic pa in syndrome G89.4 [place] [address] [address] March, CKD (chronic kidney disease) stage 3, GFR 30-59 ml/min N18.3 ; B12 deficiency E53.8 and Hyperlipidemia, unspecified hyperlipidemia E78.5 [place] [address] [address] March, Anxiety F41.9 and Chronic pa in syndrome G89.4 [place] [address] [place] [id number] [address] [place] [address] Feb, Anxiety F41.9 and Chronic pa in syndrome G89.4 [place] [address] [address] Jan, B12 deficiency E53.8 [place] [address] [address] Jan, [place] [address] [address] Jan, Anxiety F41.9 ; Chronic pain syndrome G89.4 and Essential hypertension I10 [place] [address] [address] Jan, CKD (chronic kidney disease) stage 3, [...] bursitis of right shoulder joint M75.51 [facility] [address] [id number] [address] [place] [address] 28 Dec, 2017 Essential hypertension I10 [facility] [address] [facility] [id number] [address] [place] [address] 15 Dec, 2017 Chronic pain syndrome G89.4 [place] [address] [facility] [id number] [address] [place] [address] Dec, Chronic pain syndrome G89.4 [place] [address] [facility] [id number] [address] [place] [address] Nov, [place] [address] [facility] [id number] [address] [place] [address] Nov, Chronic pain syndrome G89.4 and Anxiety F41.9 [place] [address] [facility] [id number] [address] [place] [address] Oct, Chronic pain syndrome G89.4 ; Other constipation K59.09 and Chronic prescription opiate use Z79.899 [place] [address] [facility] [id number] [address] [place] [phone] Oct, Chronic pain syndrome G89.4 and Anxiety F41.9 [place] [address] [facility] [id number] [address] [place] [address] Sep, Essential hypertension I10 [facility] [address] [facility] [id number] [address] [place] [phone] 16 Sep, 2017 Chronic pain syndrome G89.4 and Anxiety F41.9 [place] [address] [facility] [id number] [address] [place] [phone] Aug, Chronic pain syndrome G89.4 and Anxiety F41.9 [facility] [address] [facility] [id number] [address] [place] [phone] Jul, Essential hypertension I10 [place] [address] [place] [id number] [address] [place] [address] Jul, Chronic obstructive pulmonar y disease, unspecified COPD type J44.9 [place] [address] [place] [id number] [address] [place] [address] Jul, Chronic pain syndrome G89.4 and Anxiety F41.9 [place] [address] [address] 13 Jul, 2017 Chronic pain syndrome G89.4 ; Essential hypertension I10 ; Fibromyalgia M79.7 ; CKD (chronic kidney disease) stage 3, GFR 30-59 ml/min N18.3 ; Subacromial bursitis, right M75.51 and Goals of care, co unseling/discussion Z71.89 [place] [address] [address] Jun, Chronic pain syndrome G89.4 and Anxiety F41.9 [place] [address] [address] May, Chronic pain syndrome G89.4 and Anxiety F41.9 [place] [address] [place] [id number] [place] [address] Apr, Chronic pain syndrome G89.4 and Anxiety F41.9 [place] [address] [address] 14 Apr, 2017 Drug induced constipation K5 9.03 ; Chronic pain syndrome G89.4 and CKD (chronic kidney disease) stage 3, GFR 30-59 ml/min N18.3 [place] [address] [place] [id number] [place] [address] 02 Apr, 2017 Chronic pain syndrome G89.4 and Anxiety F41.9 [place] [address] [place] [id number] [address] [place] [address] March, Chronic pain syndrome G89.4 and Anxiety F41.9 [place] [address] [id number] [address] [place] [address] March, Decreased GFR R94.4 [facility] [address] [facility] [id number] [address] [place] [phone] Feb, [facility] [address] [facility] [id number] [address] [place] [address] Feb, Chronic pain syndrome G89.4 and Anxiety F41.9 [facility] [address] [facility] [id number] [address] [place] [address] Jan, Decreased GFR R94.4 [facility] [address] [facility] [id number] [address] [place] [phone] Jan, Decreased GFR R94.4 [facility] [address] [facility] [id number] [address] [place] [address] Jan, Allergic rhinitis J30.9 ; Es sential hypertension I10 ; Major depressive disorder, recurrent episode, unspecified severity F33.9 and Primary insomnia F51.01 [facility] [address] [facility] [id number] [address] [place] [address] Jan, Acute right-sided thoracic b ack pain M54.6 ; Subacromial bursitis of right shoulder joint M75.51 ; Chronic pain syndrome G89.4 and Anxiety F41.9 [facility] [address] [facility] [id number] [address] [place] [address] Jan, Decreased GFR R94.4 [facility] [address] [facility] [id number] [address] [place] [address] Dec, Decreased GFR R94.4 [facility] [address] [facility] [id number] [address] [place] [address] Dec, Decreased GFR R94.4 [facility] [address] [facility] [id number] [address] [place] [phone] Dec, Decreased GFR R94.4 [facility] [address] [facility] [id number] [address] [place] [address] 13 Dec, 2016 Decreased GFR R94.4 [place] [address] [facility] [id number] [address] [place] [address] 09 Dec, 2016 Anxiety F41.9 and Bilateral low back pain, with sciatica presence unspecified M54.5 [place] [address] [place] [id number] [place] [address] Dec, Thrombocytosis D47.3 ; Hyper lipidemia, unspecified hyperlipidemia E78.5 ; Need for hepatitis C screening test Z11.59 and B12 deficiency E53.8 [place] [address] [address] Nov, Need for hepatitis C screeni ng test Z11.59 [place] [address] [address] Nov, Anxiety F41.9 and Bilateral low back pain, with sciatica presence unspecified M54.5 [place] [address] [place] [id number] [place] [address] Oct, Bilateral low back pain, wit h sciatica presence unspecified M54.5 ; Chronic prescription opiate use Z79.899 ; Anxiety F41.9 ; Essential hypertension I10 ; Hyperlipidemia, unspecified hyperlipidemia E78.5 ; Health care maintenance Z00.00 and Thrombocytosis D47.3 [place] [id number] [place] [address] Sep, [place] [address] [place] [id number] [place] [address] Sep, [place] [address] [address] Aug, [place] [address] [place] [id number] [place] [address] Jul, B12 deficiency E53.8 [place] [address] [place] [id number] [address] [place] [address] Jul, [facility] [address] [place] [id number] [place] [address] Jul, Essential hypertension I10 ; Chronic pain syndrome G89.4 ; Anxiety F41.9 ; Screening for breast cancer Z12.39 ; Atherosclerosis of [place] coronary artery of [place] heart without angina pectoris I25.10 ; Major depressive disorder, recurrent episode, unspecified severity F33.9 ; Primary insomnia F51.01 and Allergic rhinitis J30.9 [facility] [address] [facility] [id number] [address] [place] [address] Jun, [facility] [address] [place] [id number] [place] [address] Jun, Leg wound, right, initial en counter S81.801A and Encounter for immunization Z23 [place] [address] [place] [id number] [place] [address] Jun, Open wound of right ear, uns pecified open wound type, initial encounter S01.301A [place] [address] [place] [id number] [place] [address] May, B12 deficiency E53.8 [place] [address] [place] [id number] [place] [address] May, [place] [address] [place] [id number] [place] [address] May, [place] [address] [place] [id number] [place] [address] May, Chronic pain syndrome G89.4 ; Chronic prescription opiate use Z79.899 ; Allergic rhinitis J30.9 ; Essential hypertension I10 and Non-healing skin lesion L98.9 [place] [address] [place] [id number] [place] [address] Apr, [place] [address] [place] [id number] [place] [address] March, [place] [address] [address] Feb, [facility] [address] [facility] [id number] [address] [place] [address] Feb, [facility] [address] [address] Feb, Chronic pain syndrome G89.4 ; Anxiety [...] J44.9 [facility] [address] [place] [id number] [address] [place] [address] Jan, [facility] [address] [address] Jan, Essential hypertension I10 [facility] [address] [place] [id number] [address] [place] [address] Jan, [facility] [address] [address] Jan, [facility] [address] [place] [id number] [address] [place] [address] Jan, [facility] [address] [place] [id number] [address] [place] [address] Dec, [facility] [address] [facility] [id number] [address] [place] [address] Dec, Essential hypertension I10 [facility] [address] [facility] [id number] [address] [place] [address] Dec, [facility] [address] [place] [id number] [place] [address] Dec, B12 deficiency E53.8 and Ess ential hypertension I10 [facility] [address] [place] [id number] [place] [address] Dec, [facility] [address] [facility] [id number] [address] [place] [address] Nov, Right shoulder pain M25.511 [facility] [address] [facility] [id number] [address] [place] [address] Nov, Right shoulder pain M25.511 [facility] [address] [place] [id number] [place] [address] Nov, Essential hypertension I10 a nd B12 deficiency E53.8 [facility] [address] [address] Nov, Major depressive disorder, r ecurrent episode, unspecified severity F33.9 ; Anxiety F41.9 ; Chronic pain syndrome G89.4 ; Essential hypertension I10 ; Hyperlipidemia, unspecified hyperlipidemia E78.5 ; Chronic prescription opiate use Z79.899 ; Allergic rhinitis J30.9 ; B12 deficiency E53.8 and Right shoulder pain M25.511 [facility] [address] [place] [address] Oct, [facility] [address] [place] [id number] [place] [address] Oct, [facility] [address] [place] [id number] [place] [address] Sep, [facility] [address] [facility] [id number] [address] [place] [id number] Sep, [facility] [address] [facility] [id number] [address] [place] [id number] Aug, [facility] [address] [facility] [id number] [address] [place] [id number] Aug, [facility] [address] [id number] [address] [place] [id number] Aug, [facility] [address] [id number] [address] [place] [id number] Aug, Other constipation K59.09 ; Hyperlipidemia, unspecified hyperlipidemia E78.5 ; Essential hypertension I10 ; Primary insomnia F51.01 ; Anxiety F41.9 ; Chronic pain syndrome G89.4 ; Right shoulder pain M25.511 and Acute cystitis without hematuria N30.00 [facility] [address] [id number] [address] [place] [id number] Jul, [facility] [address] [id number] [address] [place] [id number] Jul, [facility] [address] [id number] [address] [place] [id number] Jun, [facility] [address] [id number] [address] [place] [phone] Jun, [facility] [address] [id number] [address] [place] [id number] Jun, [facility] [address] [id number] [address] [place] [phone] May, [facility] [address] [id number] [address] [place] [phone] May, Other chronic pain 338.29 ; Hypertension 401.9 and Constipation due to opioid therapy 564.09 [facility] [address] [facility] [id number] [address] [place] [id number] May, [facility] [address] [id number] [address] [place] [phone] May, [facility] [address] [id number] [address] [place] [id number] Apr, [facility] [facility] [address] [id number] [address] [place] [address] Apr, Unspecified essential hypert ension 401.9 [facility] [address] [facility] [id number] [address] [place] [address] Apr, [facility] [address] [id number] [address] [place] [address], [place] [address] 16 Apr, 2015 [facility] [address] [id number] [address] [place] [address], [place] [address] 16 Apr, 2015 [facility] [address] [id number] [address] [place] [address], [place] [address] 16 Apr, 2015 [facility] [address] [id number] [address] [place] [address], [place] [address] 15 Apr, 2015 [facility] [address] [id number] [address] [place] [address], [place] [address] 12 Apr, 2015 [facility] [address] [id number] [address] [place] [address], [place] [address] March, Unspecified essential hypert ension 401.9 [facility] [address] [id number] [address] [place] [address], [place] [address] March, [facility] [address] [id number] [address] [place] [address], [place] [address] March, [facility] [address] [id number] [address] [place] [address], [place] [address] 14 Feb, 2015 [facility] [address] [id number] [address] [place] [address], [place] [address] 13 Feb, 2015 [facility] [address] [id number] [address] [place] [address], [place] [address] 23 Jan, 2015 [facility] [address] [id number] [address] [place] [address], [place] [address] 23 Jan, 2015 [facility] [address] [id number] [address] [place] [address], [place] [address] 17 Jan, 2015 [facility] [address] [id number] [address] [place] [address], [place] [address] 17 Jan, 2015 [facility] [address] [id number] [address] [place] [address], [place] [address] 13 Jan, 2015 [facility] [address] [id number] [address] [place] [address] Jan, [facility] [address] [id number] [address] [place] [address], [place] [address] Jan, [facility] [address] [id number] [address] [place] [address], [place] [address] 16 Dec, 2014 [facility] [address] [id number] [address] [place] [address], [place] [address] 16 Dec, 2014 [facility] [address] [id number] [address] [place] [address], [place] [address] Dec, [facility] [address] [id number] [address] [place] [address], [place] [address] Nov, [facility] [address] [id number] [address] [place] [address], [place] [address] Nov, [facility] [address] [id number] [address] [place] [address], [place] [address] Oct, [facility] [address] [id number] [address] [place] [address], [place] [address] Oct, [facility] [address] [id number] [address] [place] [address], [place] [address] Oct, [facility] [address] [id number] [address] [place] [address], [place] [address] Oct, [facility] [address] [id number] [address] [place] [address], [place] [address] Oct, [facility] [address] [id number] [address] [place] [address], [place] [address] Oct, [facility] [address] [id number] [address] [place] [address], [place] [address] Oct, [facility] [address] [id number] [address] [place] [address], [place] [address] Oct, [facility] [address] [id number] [address] [place] [address], [place] [address] Sep, [facility] [address] [id number] [address] [place] [address], [place] [address] Sep, [facility] [address] [id number] [address] [place] [address], [place] [address] Sep, [facility] [address] [id number] [address] [place] [address], [place] [address] Sep, [facility] [address] [id number] [address] [place] [address], [place] [address] Sep, [facility] [address] [id number] [address] [place] [address], [place] [address] Sep, [facility] [address] [id number] [address] [place] [address], [place] [address] Aug, [facility] [address] [id number] [address] [place] [address], [place] [address] Aug, [facility] [address] [id number] [address] [place] [address], [place] [address] Aug, [facility] [address] [id number] [address] [place] [address], [place] [address] Aug, [facility] [address] [id number] [address] [place] [address], [place] [address] Aug, [facility] [address] [id number] [address] [place] [address], [place] [address] Aug, [facility] [address] [id number] [address] [place] [address], [place] [address] Aug, [facility] [address] [id number] [address] [place] [address], [place] [address] Aug, [facility] [address] [id number] [address] [place] [address], [place] [address] Aug, [facility] [address] [id number] [address] [place] [address], [place] [address] Aug, [facility] [address] [id number] [address] [place] [address], [place] [address] Jul, [facility] [address] [id number] [facility] [place] [address] Jul, [facility] [address] [id number] [address] [place] [address], [place] [address] Jul, [facility] [address] [id number] [address] [place] [address], [place] [address] Jul, [facility] [address] [id number] [address] [place] [address], [place] [address] Jul, [facility] [address] [id number] [address] [place] [address], [place] [address] Jul, [facility] [address] [id number] [address] [place] [address], [place] [address] Jun, [facility] [address] [id number] [address] [place] [address], [place] [address] Jun, [facility] [address] [id number] [address] [place] [address], [place] [address] Jun, [facility] [address] [id number] [address] [place] [address], [place] [address] Jun, [facility] [address] [id number] [address] [place] [address], [place] [address] Jun, [facility] [address] [id number] [address] [place] [address], [place] [address] Jun, [facility] [address] [id number] [address] [place] [address], [place] [address] May, [facility] [address] [id number] [address] [place] [address], [place] [address] May, [facility] [address] [id number] [address] [place] [address], [place] [address] May, [facility] [address] [id number] [address] [place] [address], [place] [address] May, [facility] [address] [id number] [address] [place] [address], [place] [address] May, [facility] [address] [id number] [address] [place] [address], [place] [address] Apr, [facility] [address] [id number] [address] [place] [address], [place] [address] Apr, [facility] [address] [id number] [address] [place] [address], [place] [address] Apr, [facility] [address] [id number] [address] [place] [address], [place] [address] Apr, [facility] [address] [id number] [address] [place] [address], [place] [address] March, [facility] [address] [id number] [address] [place] [address], [place] [address] March, [facility] [address] [id number] [address] [place] [address], [place] [address] March, [facility] [address] [id number] [address] [place] [address], [place] [address] March, [facility] [address] [id number] [address] [place] [address], [place] [address] March, [facility] [address] [id number] [address] [place] [address], [place] [address] March, [facility] [address] [id number] [address] [place] [address], [place] [address] Feb, [facility] [address] [id number] [address] [place] [address], [place] [address] Feb, [facility] [address] [id number] [address] [place] [address], [place] [address] Feb, [facility] [address] [id number] [address] [place] [address], [place] [address] Feb, [facility] [address] [id number] [address] [place] [address], [place] [address] Feb, [facility] [address] [id number] [facility] [place] [address] 08 Feb, 2014 [facility] [address] [id number] [facility] [place] [address] Feb, [facility] [address] [id number] [facility] [place] [address] Feb, [facility] [address] [id number] [address] [place] [address], [place] [address] Jan, [facility] [address] [id number] [address] [place] [address], [place] [address] Jan, [facility] [address] [id number] [address] [place] [address], [place] [address] Jan, [facility] [address] [id number] [address] [place] [address], [place] [address] Jan, [facility] [address] [id number] [address] [place] [address], [place] [address] Jan, [facility] [address] [id number] [address] [place] [address], [place] [address] Jan, [facility] [address] [id number] [address] [place] [address], [place] [address] Dec, [facility] [address] [id number] [address] [place] [address], [place] [address] Dec, [facility] [address] [id number] [address] [place] [address], [place] [address] Nov, [facility] [address] [id number] [address] [place] [address], [place] [address] Nov, [facility] [address] [id number] [address] [place] [address], [place] [address] Nov, [facility] [address] [id number] [address] [place] [address], [place] [address] Nov, [facility] [address] [id number] [address] [place] [address], [place] [address] Nov, [facility] [address] [id number] [address] [place] [address], [place] [address] Nov, [facility] [address] [id number] [address] [place] [address], [place] [address] Nov, [facility] [address] [id number] [address] [place] [address], [place] [address] Nov, [facility] [address] [id number] [address] [place] [address], [place] [address] Nov, [facility] [address] [id number] [address] [place] [address], [place] [address] Nov, [facility] [address] [id number] [address] [place] [address], [place] [address] Nov, [facility] [address] [id number] [address] [place] [address], [place] [address] Nov, [facility] [address] [id number] [address] [place] [address], [place] [address] Nov, [facility] [address] [id number] [address] [place] [address], [place] [address] Nov, [facility] [address] [id number] [address] [place] [address], [place] [address] Nov, [facility] [address] [id number] [address] [place] [address], [place] [address] Oct, [facility] [address] [id number] [address] [place] [address], [place] [address] Oct, [facility] [address] [id number] [address] [place] [address], [place] [address] Oct, [facility] [address] [id number] [address] [place] [address], [place] [address] Oct, [facility] [address] [id number] [address] [place] [address], [place] [address] Oct, [facility] [address] [id number] [address] [place] [address] Oct, [facility] [address] [facility] [id number] [address] [place] [address] Oct, [facility] [address] [facility] [id number] [address] [place] [address] Oct, [facility] [address] [facility] [id number] [address] [place] [address] Oct, [facility] [address] [facility] [id number] [address] [place] [address] Aug, [facility] [address] [facility] [id number] [address] [place] [address] Aug, IMMUNIZATIONS No Known Immunizations SOCIAL HISTORY [...] by Dr. Troy Michelle pain specialist in [place], [place] Medical History Chronic low back pain Medical History depression Medical History anxiety Medical History Panic attacks Medical History Vitamin B 12 deficiency r/t gastric bypa ss Medical History Low back injections 11/2012, 06/2013 Medical History Thrombocytosis Surgical History tonsillectomy Surgical History gastric bypass--2003-in [facility] Unsure of Dr's name. [...]
--- OUTSIDE RECORDS SUMMARY | 2020-06-19 02:25 | XMS REPORT ---
Author Author Mahsa ROBERTS Organization [facility] Address [address] [place] [address] Care Team Providers Care Forest Ecologist Name Role Phone ARMANDONONAASHVIN Unavailable PROBLEMS Type Condition ICD9-CM Code [id number] Code Onset Dates Condition S tatus SNOMED Code Problem Chronic pain syndrome G89.4 Active 837168730 Problem Other constipation K59.09 Active 1 [id number] Problem Anxiety F41.9 Active 64514158 Problem Primary insomnia F51.01 Active 193 006073 Problem Atherosclerosis of [place] co ronary artery of [place] heart without angina pectoris I25.10 Active [id number] Problem Essential hypertension I10 Active 01020682 Problem Hyperlipidemia, unspecified hyperlipidemia E78.5 Active 11689181 Problem Major depressive disorder, recurrent episode, un specified severity F33.9 Active 20739584 Problem Allergic rhinitis J30.9 Active 61 426854 Problem Fibromyalgia M79.7 Active 5364779 7 Problem GERD (gastroesophageal reflux disease) K21.9 Active 359010937 Problem Degenerative disc disease, thoracic M51.34 Active 01857620 Problem Bilateral low back pain, with sciatica presence unspecifie d M54.5 Active 583998184 Problem Moderate episode of recurrent major depressive disorder F33.1 Active 524761398 Problem B12 deficiency E53.8 Active 49325 4004 Problem Chronic obstructive pulmonary disease, unspecified COPD ty pe J44.9 Active 87017506 Problem CKD (chronic kidney disease) stage 3, GFR 30-59 ml/min N18.3 Active 322649904 Problem Cannabis abuse F12.10 Active 64708 009 Problem Degenerative disc disease, cervical M50.30 Active 69626622 ALLERGIES No Information ENCOUNTERS Encounter Location Date Diagnosis [facility] [address] [facility] [id number] [address] [place] [address] Feb, CKD (chronic kidney disease) stage 3, GFR 30-59 ml/min N18.3 and B12 deficiency E53.8 [facility] [address] [facility] [id number] [address] [place] [address] 07 Feb, 2020 CKD (chronic kidney disease) stage 3, GFR 30-59 ml/min N18.3 and B12 deficiency E53.8 [facility] [address] [facility] [id number] [address] [place] [address] Jan, [facility] [address] [facility] [id number] [address] [place] [address] Nov, [facility] [address] [facility] [id number] [address] [place] [address] Oct, Moderate episode of recurren t major depressive disorder F33.1 ; Chronic obstructive pulmonary disease, unspecified COPD type J44.9 ; CKD (chronic kidney disease) stage 3, GFR 30-59 ml/min N18.3 ; Essential hypertension I10 and Possible exposure to STD Z20.2 [facility] [address] [facility] [id number] [address] [place] [address] Oct, Essential hypertension I10 [facility] [address] [facility] [id number] [address] [place] [address] Oct, [facility] [address] [facility] [id number] [address] [place] [address] Sep, Essential hypertension I10 [facility] [address] [facility] [id number] [address] [place] [address] Sep, [facility] [address] [facility] [id number] [address] [place] [address] Sep, [facility] [address] [facility] [id number] [address] [place] [address] Sep, [facility] [address] [facility] [id number] [address] [place] [address] Aug, Essential hypertension I10 [facility] [address] [facility] [id number] [address] [place] [address] Aug, Essential hypertension I10 [place] [address] [facility] [id number] [address] [place] [address] 25 Jul, 2019 Allergic rhinitis J30.9 ; CK D (chronic kidney disease) stage 3, GFR 30-59 ml/min N18.3 ; Essential hypertension I10 and Moderate episode of recurrent major depressive disorder F33.1 [place] [address] [place] [id number] [address] [place] [address] 11 Jul, 2019 Elevated platelet count R79. 89 ; B12 deficiency E53.8 ; Hyperlipidemia, unspecified hyperlipidemia E78.5 and CKD (chronic kidney disease) stage 3, GFR 30-59 ml/min N18.3 [place] [address] [place] [id number] [address] [place] [address] Apr, B12 deficiency E53.8 [place] [address] [facility] [id number] [address] [place] [address] Jan, Periumbilical hernia K42.9 ; CKD (chronic kidney disease) stage 3, GFR 30-59 ml/min N18.3 ; Essential hypertension I10 ; GERD (gastroesophageal reflux disease) K21.9 ; Hyperlipidemia, unspecified hyperlipidemia E78.5 and Major depressive disorder, recurrent episode, unspecified severity F33.9 [place] [address] [facility] [id number] [address] [place] [address] 12 Dec, 2018 Anxiety F41.9 [place] [address] [facility] [id number] [address] [place] [address] Nov, Elevated platelet count R79. 89 [place] [address] [facility] [id number] [address] [place] [address] 15 Nov, 2018 [place] [address] [place] [id number] [address] [place] [address] Nov, Elevated platelet count R79. 89 [place] [address] [facility] [id number] [address] [place] [address] Nov, Anxiety F41.9 [place] [address] [place] [id number] [address] [place] [address] Nov, Bilateral low back pain, wit h sciatica presence unspecified M54.5 ; Cervicalgia M54.2 ; Degenerative disc disease, cervical M50.30 and Degenerative disc disease, thoracic M51.34 [place] [address] [address] Nov, Chronic pain syndrome G89.4 and Bilateral low back pain, with sciatica presence unspecified M54.5 [place] [address] [address] Oct, Umbilical hernia without obs truction and without gangrene K42.[address] [address] Oct, Chronic pain syndrome G89.[address] [address] Oct, Chronic pain syndrome G89.4 and Anxiety F41.[address] [address] Oct, Elevated platelet count R79. [address] [address] Oct, CKD (chronic kidney disease) stage 3, GFR 30-59 ml/min N18.3 ; Other chest pain R07.89 ; Acute midline thoracic back pain M54.6 ; Essential hypertension I10 and History of osteoporosis Z87.39 [place] [address] [address] Sep, Chronic pain syndrome G89.4 [place] [address] [address] Sep, [address] [address] Sep, Anxiety F41.9 and Chronic pa in syndrome G89.[address] [address] Aug, Chronic pain syndrome G89.4 and Anxiety F41.9 [place] [address] [address] Aug, [place] [address] [address] Aug, Cannabis abuse F12.10 and Co ntrolled substance agreement terminated Z91.[address] [address] Jul, Chronic pain syndrome G89.4 ; Bilateral low back pain, with sciatica presence unspecified M54.5 ; Chronic prescription opiate use Z79.899 ; Essential hypertension I10 ; Hyperlipidemia, unspecified hyperlipidemia E78.5 ; CKD (chronic kidney disease) stage 3, GFR 30-59 ml/min N18.3 and Allergic rhinitis J30.9 [place] [address] [address] Jul, Chronic pain syndrome G89.4 and Anxiety F41.9 [place] [address] [address] Jul, Screening for breast cancer Z12.31 and Major depressive disorder, recurrent episode, unspecified severity F33.9 [place] [address] [place] [id number] [place] [address] Jun, Chronic pain syndrome G89.4 and Anxiety F41.9 [place] [address] [address] May, Chronic pain syndrome G89.4 and Anxiety F41.9 [place] [address] [place] [id number] [place] [address] Apr, Anxiety F41.9 [place] [address] [place] [id number] [place] [address] Apr, Chronic prescription opiate use Z79.899 ; Chronic pain syndrome G89.4 ; Essential hypertension I10 ; Allergic rhinitis J30.9 and CKD (chronic kidney disease) stage 3, GFR 30-59 ml/min N18.3 [place] [address] [address] Apr, [place] [address] [address] March, Anxiety F41.9 and Chronic pa in syndrome G89.4 [place] [address] [address] March, CKD (chronic kidney disease) stage 3, GFR 30-59 ml/min N18.3 ; B12 deficiency E53.8 and Hyperlipidemia, unspecified hyperlipidemia E78.5 [place] [address] [address] March, Anxiety F41.9 and Chronic pa in syndrome G89.4 [place] [address] [address] Feb, Anxiety F41.9 and Chronic pa in syndrome G89.4 [place] [address] [address] Jan, B12 deficiency E53.8 [place] [address] [address] Jan, [place] [address] [address] Jan, Anxiety F41.9 ; Chronic pain syndrome G89.4 and Essential hypertension I10 [place] [address] [address] Jan, CKD (chronic kidney disease) stage 3, [...] Subacromial bursitis of right shoulder joint M75.51 [facility] [address] [facility] [id number] [address] [place] [address] 28 Dec, 2017 Essential hypertension I10 [facility] [address] [facility] [id number] [address] [place] [address] 15 Dec, 2017 Chronic pain syndrome G89.4 [facility] [address] [facility] [id number] [address] [place] [address] Dec, Chronic pain syndrome G89.4 [facility] [address] [facility] [id number] [address] [place] [address] Nov, [facility] [address] [place] [id number] [address] [place] [address] Nov, Chronic pain syndrome G89.4 and Anxiety F41.9 [place] [address] [place] [id number] [address] [place] [address] Oct, Chronic pain syndrome G89.4 ; Other constipation K59.09 and Chronic prescription opiate use Z79.899 [place] [address] [place] [id number] [address] [place] [address] Oct, Chronic pain syndrome G89.4 and Anxiety F41.9 [place] [id number] [place] [id number] [address] [place] [address] Sep, Essential hypertension I10 [facility] [address] [facility] [id number] [address] [place] [address] 16 Sep, 2017 Chronic pain syndrome G89.4 and Anxiety F41.9 [facility] [address] [facility] [id number] [address] [place] [address] Aug, Chronic pain syndrome G89.4 and Anxiety F41.9 [facility] [address] [facility] [id number] [address] [place] [address] 28 Jul, 2017 Essential hypertension I10 [facility] [address] [place] [id number] [address] [place] [address] Jul, Chronic obstructive pulmonar y disease, unspecified COPD type J44.9 [place] [id number] [facility] [id number] [address] [place] [address] Jul, Chronic pain syndrome G89.4 and Anxiety F41.9 [place] [address] [facility] [id number] [address] [place] [address] Jul, Chronic pain syndrome G89.4 ; Essential hypertension I10 ; Fibromyalgia M79.7 ; CKD (chronic kidney disease) stage 3, GFR 30-59 ml/min N18.3 ; Subacromial bursitis, right M75.51 and Goals of care, co unseling/discussion Z71.89 [place] [address] [facility] [id number] [address] [place] [address] Jun, Chronic pain syndrome G89.4 and Anxiety F41.9 [place] [address] [place] [id number] [address] [place] [address] May, Chronic pain syndrome G89.4 and Anxiety F41.9 [place] [address] [place] [id number] [address] [place] [address] Apr, Chronic pain syndrome G89.4 and Anxiety F41.9 [place] [address] [facility] [id number] [address] [place] [address] Apr, Drug induced constipation K5 9.03 ; Chronic pain syndrome G89.4 and CKD (chronic kidney disease) stage 3, GFR 30-59 ml/min N18.3 [place] [address] [facility] [id number] [address] [place] [address] Apr, Chronic pain syndrome G89.4 and Anxiety F41.9 [place] [address] [facility] [id number] [address] [place] [address] March, Chronic pain syndrome G89.4 and Anxiety F41.9 [place] [address] [facility] [id number] [address] [place] [address] March, Decreased GFR R94.4 [facility] [address] [id number] [address] [place] [address] Feb, [facility] [address] [facility] [id number] [address] [place] [address] Feb, Chronic pain syndrome G89.4 and Anxiety F41.9 [facility] [address] [facility] [id number] [address] [place] [address] Jan, Decreased GFR R94.4 [facility] [address] [facility] [id number] [address] [place] [address] Jan, Decreased GFR R94.4 [facility] [address] [facility] [id number] [address] [place] [address] Jan, Allergic rhinitis J30.9 ; Es sential hypertension I10 ; Major depressive disorder, recurrent episode, unspecified severity F33.9 and Primary insomnia F51.01 [facility] [address] [facility] [id number] [address] [place] [address] Jan, Acute right-sided thoracic b ack pain M54.6 ; Subacromial bursitis of right shoulder joint M75.51 ; Chronic pain syndrome G89.4 and Anxiety F41.9 [facility] [address] [place] [id number] [address] [place] [address] Jan, Decreased GFR R94.4 [facility] [address] [facility] [id number] [address] [place] [address] Dec, Decreased GFR R94.4 [facility] [address] [facility] [id number] [address] [place] [address] Dec, Decreased GFR R94.4 [facility] [address] [facility] [id number] [address] [place] [address] Dec, Decreased GFR R94.4 [facility] [address] [facility] [id number] [address] [place] [address] Dec, Decreased GFR R94.4 [facility] [address] [address] Dec, Anxiety F41.9 and Bilateral low back pain, with sciatica presence unspecified M54.5 [place] [address] [address] Dec, Thrombocytosis D47.3 ; Hyper lipidemia, unspecified hyperlipidemia E78.5 ; Need for hepatitis C screening test Z11.59 and B12 deficiency E53.8 [place] [address] [address] Nov, Need for hepatitis C screeni ng test Z11.59 [place] [address] [address] Nov, Anxiety F41.9 and Bilateral low back pain, with sciatica presence unspecified M54.5 [place] [address] [address] Oct, Bilateral low back pain, wit h sciatica presence unspecified M54.5 ; Chronic prescription opiate use Z79.899 ; Anxiety F41.9 ; Essential hypertension I10 ; Hyperlipidemia, unspecified hyperlipidemia E78.5 ; Health care maintenance Z00.00 and Thrombocytosis D47.3 [place] [address] [address] Sep, [place] [address] [address] Sep, [place] [address] [address] Aug, [place] [address] [address] Jul, B12 deficiency E53.8 [place] [address] [address] Jul, [place] [address] [address] Jul, Essential hypertension I10 ; Chronic pain syndrome G89.4 ; Anxiety F41.9 ; Screening for breast cancer Z12.39 ; Atherosclerosis of [place] coronary artery of [place] heart without angina pectoris I25.10 ; Major depressive disorder, recurrent episode, unspecified severity F33.9 ; Primary insomnia F51.01 and Allergic rhinitis J30.9 [facility] [address] [facility] [id number] [address] [place] [address] Jun, [facility] [address] [facility] [id number] [address] [place] [address] Jun, Leg wound, right, initial en counter S81.801A and Encounter for immunization Z23 [facility] [address] [facility] [id number] [address] [place] [address] Jun, Open wound of right ear, uns pecified open wound type, initial encounter S01.301A [facility] [address] [facility] [id number] [address] [place] [address] May, B12 deficiency E53.8 [facility] [address] [facility] [id number] [address] [place] [address] May, [facility] [address] [facility] [id number] [address] [place] [address] May, [facility] [address] [facility] [id number] [address] [place] [address] May, Chronic pain syndrome G89.4 ; Chronic prescription opiate use Z79.899 ; Allergic rhinitis J30.9 ; Essential hypertension I10 and Non-healing skin lesion L98.9 [facility] [address] [facility] [id number] [address] [place] [address] Apr, [facility] [address] [facility] [id number] [address] [place] [address] March, [facility] [address] [facility] [id number] [address] [place] [address] Feb, [facility] [address] [place] [id number] [address] [place] [address] Feb, [facility] [address] [address] Feb, Chronic pain syndrome G89.4 ; Anxiety F41.9 ; B12 deficiency E53.8 ; Allergic rhinitis J30.9 ; Fibromyalgia M79.7 ; Actinic keratosis L57.0 ; Skin rash R21 ; Open wound of right ear, unspecified open wound type, initial encounter S01.301A ; Subacromial bursitis, right M75.51 ; GERD (gastroesophageal reflux disease) K21.9 and Chronic obstructive pulmonary disease, unspecified COPD type J44.9 [facility] [address] [facility] [id number] [address] Jan, [facility] [address] [address] Jan, Essential hypertension I10 [facility] [address] [address] Jan, [facility] [address] [address] Jan, [facility] [address] [address] Jan, [facility] [address] [address] Dec, [facility] [address] [address] Dec, Essential hypertension I10 [facility] [address] [facility] [id number] [address] [place] [address] Dec, [facility] [address] [address] Dec, B12 deficiency E53.8 and Ess ential hypertension I10 [facility] [address] [place] [id number] [address] [place] [address] Dec, [facility] [address] [place] [id number] [address] [place] [address] Nov, Right shoulder pain M25.511 [facility] [address] [address] Nov, Right shoulder pain M25.511 [facility] [address] [address] Nov, Essential hypertension I10 a nd B12 deficiency E53.8 [facility] [address] [address] 14 Nov, 2015 Major depressive disorder, r ecurrent episode, unspecified severity F33.9 ; Anxiety F41.9 ; Chronic pain syndrome G89.4 ; Essential hypertension I10 ; Hyperlipidemia, unspecified hyperlipidemia E78.5 ; Chronic prescription opiate use Z79.899 ; Allergic rhinitis J30.9 ; B12 deficiency E53.8 and Right shoulder pain M25.511 [place] [id number] [address] Oct, [place] [address] [address] Oct, [place] [address] [address] Sep, [place] [address] [address] Sep, [place] [address] [place] [id number] [address] [place] [address] Aug, [facility] [address] [address] Aug, [facility] [address] [address] Aug, [facility] [address] [address] Aug, Other constipation K59.09 ; Hyperlipidemia, unspecified hyperlipidemia E78.5 ; Essential hypertension I10 ; Primary insomnia F51.01 ; Anxiety F41.9 ; Chronic pain syndrome G89.4 ; Right shoulder pain M25.511 and Acute cystitis without hematuria N30.00 [facility] [address] [facility] [id number] [address] [place] [address] 16 Jul, 2015 [facility] [address] [place] [id number] [address] [place] [address] Jul, [facility] [address] [id number] [address] [place] [address] Jun, [facility] [address] [facility] [id number] [address] [place] [address] Jun, [facility] [address] [place] [id number] [place] [address] Jun, [facility] [address] [place] [id number] [address] [place] [address] May, [facility] [address] [place] [id number] [address] [place] [address] May, Other chronic pain 338.29 ; Hypertension 401.9 and Constipation due to opioid therapy 564.09 [facility] [address] [facility] [id number] [address] [place] [address] May, [facility] [address] [place] [id number] [address] [place] [address] May, [facility] [address] [facility] [id number] [address] [place] [address] Apr, [facility] [address] [facility] [id number] [address] [place] [address] Apr, Unspecified essential hypert ension 401.9 [facility] [address] [facility] [id number] [address] [place] [address] Apr, [facility] [address] [place] [id number] [address] [place] [address] Apr, [facility] [address] [id number] [address] [place] [address], [place] [address] 16 Apr, 2015 [facility] [address] [id number] [address] [place] [address], [place] [address] 16 Apr, 2015 [facility] [address] [id number] [address] [place] [address], [place] [address] 15 Apr, 2015 [facility] [address] [id number] [address] [place] [address] Apr, [facility] [address] [id number] [address] [place] [address], [place] [address] March, Unspecified essential hypert ension 401.9 [facility] [address] [id number] [address] [place] [address], [place] [address] March, [facility] [address] [id number] [address] [place] [address] March, [facility] [address] [id number] [address] [place] [address], [place] [address] 14 Feb, 2015 [facility] [address] [id number] [address] [place] [phone] Feb, [facility] [address] [id number] [address] [place] [address], [place] [phone] 23 Jan, 2015 [facility] [address] [id number] [address] [place] [phone] 23 Jan, 2015 [facility] [address] [id number] [address] [place] [id number] 17 Jan, 2015 [facility] [address] [id number] [address] [place] [phone] 17 Jan, 2015 [facility] [address] [id number] [address] [place] [address], [place] [address] 13 Jan, 2015 [facility] [address] [id number] [address] [place] [id number] 02 Jan, 2015 [facility] [address] [id number] [address] [place] [address] Jan, [facility] [address] [id number] [address] [place] [address], [place] [address] 16 Dec, 2014 [facility] [address] [id number] [address] [place] [address], [place] [address] 16 Dec, 2014 [facility] [address] [id number] [address] [place] [address], [place] [address] Dec, [facility] [address] [id number] [address] [place] [address], [place] [address] Nov, [facility] [address] [id number] [address] [place] [address], [place] [address] Nov, [facility] [address] [id number] [address] [place] [address], [place] [address] Oct, [facility] [address] [id number] [address] [place] [address], [place] [address] Oct, [facility] [address] [id number] [address] [place] [address], [place] [address] Oct, [facility] [address] [id number] [address] [place] [address], [place] [address] Oct, [facility] [address] [id number] [address] [place] [address], [place] [address] Oct, [facility] [address] [id number] [address] [place] [address], [place] [address] Oct, [facility] [address] [id number] [address] [place] [address], [place] [address] Oct, [facility] [address] [id number] [address] [place] [address], [place] [address] Oct, [facility] [address] [id number] [address] [place] [address], [place] [address] Sep, [facility] [address] [id number] [address] [place] [address], [place] [address] Sep, [facility] [address] [id number] [address] [place] [address], [place] [address] Sep, [facility] [address] [id number] [address] [place] [address], [place] [address] Sep, [facility] [address] [id number] [address] [place] [address], [place] [address] Sep, [facility] [address] [id number] [address] [place] [address], [place] [address] Sep, [facility] [address] [id number] [address] [place] [address], [place] [address] Aug, [facility] [address] [id number] [address] [place] [address], [place] [address] Aug, [facility] [address] [id number] [address] [place] [address], [place] [address] Aug, [facility] [address] [id number] [address] [place] [address], [place] [address] Aug, [facility] [address] [id number] [address] [place] [address], [place] [address] Aug, [facility] [address] [id number] [address] [place] [address], [place] [address] Aug, [facility] [address] [id number] [address] [place] [address], [place] [address] Aug, [facility] [address] [id number] [address] [place] [address], [place] [address] Aug, [facility] [address] [id number] [address] [place] [address], [place] [address] Aug, [facility] [address] [id number] [address] [place] [address], [place] [address] Aug, [facility] [address] [id number] [address] [place] [address], [place] [address] Jul, [facility] [address] [id number] [address] [place] [address], [place] [address] Jul, [facility] [address] [id number] [facility] [place] [address] Jul, [facility] [address] [id number] [address] [place] [address], [place] [address] Jul, [facility] [address] [id number] [address] [place] [address], [place] [address] Jul, [facility] [address] [id number] [address] [place] [address], [place] [address] Jul, [facility] [address] [id number] [address] [place] [address], [place] [address] Jun, [facility] [address] [id number] [address] [place] [address], [place] [address] Jun, [facility] [address] [id number] [address] [place] [address], [place] [address] Jun, [facility] [address] [id number] [address] [place] [address], [place] [address] Jun, [facility] [address] [id number] [address] [place] [address], [place] [address] Jun, [facility] [address] [id number] [address] [place] [address], [place] [address] Jun, [facility] [address] [id number] [address] [place] [address], [place] [address] May, [facility] [address] [id number] [address] [place] [address], [place] [address] May, [facility] [address] [id number] [address] [place] [address], [place] [address] May, [facility] [address] [id number] [address] [place] [address], [place] [address] May, [facility] [address] [id number] [address] [place] [address], [place] [address] May, [facility] [address] [id number] [address] [place] [address], [place] [address] Apr, [facility] [address] [id number] [address] [place] [address], [place] [address] Apr, [facility] [address] [id number] [address] [place] [address], [place] [address] Apr, [facility] [address] [id number] [address] [place] [address], [place] [address] Apr, [facility] [address] [id number] [address] [place] [address], [place] [address] March, [facility] [address] [id number] [address] [place] [address], [place] [address] March, [facility] [address] [id number] [address] [place] [address], [place] [address] March, [facility] [address] [id number] [address] [place] [address], [place] [address] March, [facility] [address] [id number] [address] [place] [address], [place] [address] March, [facility] [address] [id number] [address] [place] [address], [place] [address] March, [facility] [address] [id number] [address] [place] [address], [place] [address] Feb, [facility] [address] [id number] [address] [place] [address], [place] [address] Feb, [facility] [address] [id number] [address] [place] [address], [place] [address] Feb, [facility] [address] [id number] [address] [place] [address], [place] [address] Feb, [facility] [address] [id number] [address] [place] [address], [place] [address] Feb, [facility] [address] [id number] [address] [place] [address], [place] [address] Feb, [facility] [address] [id number] [facility] [place] [address] Feb, [facility] [address] [id number] [address] [place] [address], [place] [address] Feb, [facility] [address] [id number] [facility] [place] [address] Jan, [facility] [address] [id number] [address] [place] [address], [place] [address] Jan, [facility] [address] [id number] [address] [place] [address], [place] [address] Jan, [facility] [address] [id number] [address] [place] [address], [place] [address] Jan, [facility] [address] [id number] [address] [place] [address], [place] [address] Jan, [facility] [address] [id number] [address] [place] [address], [place] [address] Jan, [facility] [address] [id number] [address] [place] [address], [place] [address] Dec, [facility] [address] [id number] [address] [place] [address], [place] [address] Dec, [facility] [address] [id number] [address] [place] [address], [place] [address] Nov, [facility] [address] [id number] [address] [place] [address], [place] [address] Nov, [facility] [address] [id number] [address] [place] [address], [place] [address] Nov, [facility] [address] [id number] [address] [place] [address], [place] [address] Nov, [facility] [address] [id number] [address] [place] [address], [place] [address] Nov, [facility] [address] [id number] [address] [place] [address], [place] [address] Nov, [facility] [address] [id number] [address] [place] [address], [place] [address] Nov, [facility] [address] [id number] [address] [place] [address], [place] [address] Nov, [facility] [address] [id number] [address] [place] [address], [place] [address] Nov, [facility] [address] [id number] [address] [place] [address], [place] [address] Nov, [facility] [address] [id number] [address] [place] [address], [place] [address] Nov, [facility] [address] [id number] [address] [place] [address], [place] [address] Nov, [facility] [address] [id number] [address] [place] [address], [place] [address] Nov, [facility] [address] [id number] [address] [place] [address], [place] [address] Nov, [facility] [address] [id number] [address] [place] [address], [place] [address] Nov, [facility] [address] [id number] [address] [place] [address], [place] [address] Oct, [facility] [address] [id number] [address] [place] [address], [place] [address] Oct, [facility] [address] [id number] [address] [place] [address], [place] [address] Oct, [facility] [address] [id number] [address] [place] [address], [place] [address] Oct, [facility] [address] [id number] [address] [place] [address], [place] [address] Oct, [facility] [address] [id number] [address] [place] [address], [place] [address] Oct, [facility] [address] [id number] [address] [place] [address] Oct, [facility] [address] [facility] [id number] [address] [place] [address] Oct, [facility] [address] [facility] [id number] [address] [place] [address] Oct, [facility] [address] [facility] [id number] [address] [place] [address] Aug, [facility] [address] [facility] [id number] [address] [place] [address] Aug, IMMUNIZATIONS No Known Immunizations SOCIAL HISTORY [...] by Dr. Troy Michelle pain specialist in [place], [place] Medical History Chronic low back pain [...]
--- OUTSIDE RECORDS SUMMARY | 2020-06-19 02:25 | XMS REPORT ---
Author Author Mahsa Lewis Doctor Organization [facility] Address Unknown Phone Unavailable Care Team Providers Care Web Programmer Name Role Phone Migration, Doctor Unavailable Unavailable PROBLEMS Type Condition ICD9-CM Code [id number] Code Onset Dates Condition S tatus SNOMED Code Problem Chronic pain syndrome G89.4 Active 613438659 Problem Other constipation K59.09 Active 1 [id number] Problem Anxiety F41.9 Active 01483179 Problem Primary insomnia F51.01 Active 193 921639 Problem Atherosclerosis of mak[place] co ronary artery of mak[place] heart without angina pectoris I25.10 Active 1937713518997 Problem Essential hypertension I10 Active 55134696 Problem Hyperlipidemia, unspecified hyperlipidemia E78.5 Active 27579871 Problem Major depressive disorder, recurrent episode, un specified severity F33.9 Active 80331290 Problem Allergic rhinitis J30.9 Active 61 980986 Problem Fibromyalgia M79.7 Active 3847683 7 Problem GERD (gastroesophageal reflux disease) K21.9 Active 718032403 Problem Degenerative disc disease, thoracic M51.34 Active 21587095 Problem Bilateral low back pain, with sciatica presence unspecifie d M54.5 Active 839431993 Problem Moderate episode of recurrent major depressive disorder F33.1 Active 735648506 Problem B12 deficiency E53.8 Active 01650 4004 Problem Chronic obstructive pulmonary disease, unspecified COPD ty pe J44.9 Active 14057208 Problem CKD (chronic kidney disease) stage 3, GFR 30-59 ml/min N18.3 Active 438843973 Problem Cannabis abuse F12.10 Active 74060 009 Problem Degenerative disc disease, cervical M50.30 Active 52103825 ALLERGIES No Information ENCOUNTERS Encounter Location Date Diagnosis [facility] [address] [facility] [id number] [address] [place] [id number] Jan, [facility] [address] [facility] [id number] [address] [place] [phone] Nov, [facility] [address] [facility] [id number] [address] [id number] Oct, Moderate episode of recurren t major depressive disorder F33.1 ; Chronic obstructive pulmonary disease, unspecified COPD type J44.9 ; CKD (chronic kidney disease) stage 3, GFR 30-59 ml/min N18.3 ; Essential hypertension I10 and Possible exposure to STD Z20.2 [facility] [address] [place] [id number] [address] [place] [id number] Oct, Essential hypertension I10 [facility] [address] [place] [id number] [address] [place] [id number] Oct, [facility] [address] [place] [id number] [address] [place] [id number] Sep, Essential hypertension I10 [facility] [address] [place] [id number] [address] [place] [phone] Sep, [facility] [address] [place] [id number] [address] [place] [phone] Sep, [facility] [address] [place] [id number] [address] [place] [phone] Sep, [facility] [address] [place] [id number] [address] [place] [id number] Aug, Essential hypertension I10 [facility] [address] [place] [id number] [address] [place] [phone] Aug, Essential hypertension I10 [facility] [address] [place] [id number] [address] [place] [phone] Jul, Allergic rhinitis J30.9 ; CK D (chronic kidney disease) stage 3, GFR 30-59 ml/min N18.3 ; Essential hypertension I10 and Moderate episode of recurrent major depressive disorder F33.1 [facility] [address] [place] [id number] [address] [place] [id number] Jul, Elevated platelet count R79. 89 ; B12 deficiency E53.8 ; Hyperlipidemia, unspecified hyperlipidemia E78.5 and CKD (chronic kidney disease) stage 3, GFR 30-59 ml/min N18.3 [place] [address] [facility] [id number] [address] [place] [id number] 04 Apr, 2019 B12 deficiency E53.8 [place] [address] [facility] [id number] [address] [place] [id number] 27 Jan, 2019 Periumbilical hernia K42.9 ; CKD (chronic kidney disease) stage 3, GFR 30-59 ml/min N18.3 ; Essential hypertension I10 ; GERD (gastroesophageal reflux disease) K21.9 ; Hyperlipidemia, unspecified hyperlipidemia E78.5 and Major depressive disorder, recurrent episode, unspecified severity F33.9 [place] [address] [facility] [id number] [address] [place] [id number] 12 Dec, 2018 Anxiety F41.9 [place] [address] [place] [id number] [address] [place] [phone] 17 Nov, 2018 Elevated platelet count R79. 89 [place] [address] [place] [id number] [address] [place] [phone] Nov, [place] [address] [place] [id number] [address] [place] [phone] Nov, Elevated platelet count R79. 89 [place] [address] [place] [id number] [address] [place] [phone] Nov, Anxiety F41.9 [place] [address] [place] [id number] [address] [place] [phone] Nov, Bilateral low back pain, wit h sciatica presence unspecified M54.5 ; Cervicalgia M54.2 ; Degenerative disc disease, cervical M50.30 and Degenerative disc disease, thoracic M51.34 [place] [address] [place] [id number] [address] [place] [phone] Nov, Chronic pain syndrome G89.4 and Bilateral low back pain, with sciatica presence unspecified M54.5 [place] [address] [place] [id number] [address] [place] [phone] Oct, Umbilical hernia without obs truction and without gangrene K42.9 [place] [id number] [facility] [id number] [address] [place] [phone] Oct, Chronic pain syndrome G89.4 [place] [address] [facility] [id number] [address] [place] [phone] Oct, Chronic pain syndrome G89.4 and Anxiety F41.9 [place] [address] [place] [id number] [address] [place] [phone] Oct, Elevated platelet count R79. 89 [place] [address] [facility] [id number] [address] [place] [id number] 10 Oct, 2018 CKD (chronic kidney disease) stage 3, GFR 30-59 ml/min N18.3 ; Other chest pain R07.89 ; Acute midline thoracic back pain M54.6 ; Essential hypertension I10 and History of osteoporosis Z87.39 [place] [address] [place] [id number] [address] [place] [id number] 29 Sep, 2018 Chronic pain syndrome G89.4 [place] [address] [facility] [id number] [address] [place] [phone] Sep, [place] [address] [facility] [id number] [place] [phone] Sep, Anxiety F41.9 and Chronic pa in syndrome G89.4 [place] [address] [facility] [id number] [address] [place] [phone] 18 Aug, 2018 Chronic pain syndrome G89.4 and Anxiety F41.9 [place] [address] [facility] [id number] [address] [place] [phone] Aug, [place] [address] [place] [id number] [address] [place] [id number] 03 Aug, 2018 Cannabis abuse F12.10 and Co ntrolled substance agreement terminated Z91.14 [place] [address] [place] [id number] [address] [place] [id number] Jul, Chronic pain syndrome G89.4 ; Bilateral low back pain, with sciatica presence unspecified M54.5 ; Chronic prescription opiate use Z79.899 ; Essential hypertension I10 ; Hyperlipidemia, unspecified hyperlipidemia E78.5 ; CKD (chronic kidney disease) stage 3, GFR 30-59 ml/min N18.3 and Allergic rhinitis J30.9 [facility] [address] [facility] [id number] [address] [place] [phone] Jul, Chronic pain syndrome G89.4 and Anxiety F41.9 [place] [address] [facility] [id number] [address] [place] [phone] Jul, Screening for breast cancer Z12.31 and Major depressive disorder, recurrent episode, unspecified severity F33.9 [place] [address] [facility] [id number] [address] [place] [phone] Jun, Chronic pain syndrome G89.4 and Anxiety F41.9 [place] [address] [facility] [id number] [address] [place] [phone] May, Chronic pain syndrome G89.4 and Anxiety F41.9 [place] [address] [facility] [id number] [address] [place] [phone] Apr, Anxiety F41.9 [place] [address] [facility] [id number] [address] [place] [id number] Apr, Chronic prescription opiate use Z79.899 ; Chronic pain syndrome G89.4 ; Essential hypertension I10 ; Allergic rhinitis J30.9 and CKD (chronic kidney disease) stage 3, GFR 30-59 ml/min N18.3 [place] [address] [facility] [id number] [address] [place] [phone] Apr, [place] [address] [facility] [id number] [address] [place] [phone] March, Anxiety F41.9 and Chronic pa in syndrome G89.4 [place] [address] [facility] [id number] [address] [place] [phone] March, CKD (chronic kidney disease) stage 3, GFR 30-59 ml/min N18.3 ; B12 deficiency E53.8 and Hyperlipidemia, unspecified hyperlipidemia E78.5 [place] [address] [address] March, Anxiety F41.9 and Chronic pa in syndrome G89.4 [place] [address] [place] [id number] [place] [phone] Feb, Anxiety F41.9 and Chronic pa in syndrome G89.4 [place] [address] [id number] Jan, B12 deficiency E53.8 [place] [address] [address] Jan, [place] [address] [id number] Jan, Anxiety F41.9 ; Chronic pain syndrome G89.4 and Essential hypertension I10 [place] [address] [address] Jan, CKD (chronic kidney disease) stage 3, [...] of right shoulder joint M75.51 [place] [address] [address] Dec, Essential hypertension I10 [place] [address] [address] Dec, Chronic pain syndrome G89.4 [place] [address] [id number] Dec, Chronic pain syndrome G89.4 [place] [address] [facility] [id number] [address] [place] [phone] Nov, [facility] [address] [place] [id number] [address] [place] [phone] Nov, Chronic pain syndrome G89.4 and Anxiety F41.9 [facility] [address] [place] [id number] [address] [place] [phone] Oct, Chronic pain syndrome G89.4 ; Other constipation K59.09 and Chronic prescription opiate use Z79.899 [facility] [address] [place] [id number] [address] [place] [phone] Oct, Chronic pain syndrome G89.4 and Anxiety F41.9 [place] [address] [place] [id number] [address] [place] [phone] Sep, Essential hypertension I10 [place] [address] [place] [id number] [place] [phone] 16 Sep, 2017 Chronic pain syndrome G89.4 and Anxiety F41.9 [place] [address] [place] [id number] [address] [place] [phone] Aug, Chronic pain syndrome G89.4 and Anxiety F41.9 [place] [address] [place] [id number] [address] [place] [phone] 28 Jul, 2017 Essential hypertension I10 [place] [address] [place] [id number] [address] [place] [phone] 22 Jul, 2017 Chronic obstructive pulmonar y disease, unspecified COPD type J44.9 [facility] [address] [place] [id number] [address] [place] [phone] Jul, Chronic pain syndrome G89.4 and Anxiety F41.9 [place] [address] [place] [id number] [address] [place] [phone] 13 Jul, 2017 Chronic pain syndrome G89.4 ; Essential hypertension I10 ; Fibromyalgia M79.7 ; CKD (chronic kidney disease) stage 3, GFR 30-59 ml/min N18.3 ; Subacromial bursitis, right M75.51 and Goals of care, co unseling/discussion Z71.89 [facility] [address] [place] [id number] [address] [place] [phone] Jun, Chronic pain syndrome G89.4 and Anxiety F41.9 [facility] [address] [place] [id number] [address] [place] [id number] May, Chronic pain syndrome G89.4 and Anxiety F41.9 [facility] [address] [place] [id number] [address] [place] [phone] Apr, Chronic pain syndrome G89.4 and Anxiety F41.9 [place] [address] [place] [id number] [place] [phone] Apr, Drug induced constipation K5 9.03 ; Chronic pain syndrome G89.4 and CKD (chronic kidney disease) stage 3, GFR 30-59 ml/min N18.3 [place] [address] [place] [id number] [address] [place] [phone] Apr, Chronic pain syndrome G89.4 and Anxiety F41.9 [place] [address] [place] [id number] [address] [place] [phone] March, Chronic pain syndrome G89.4 and Anxiety F41.9 [place] [address] [place] [id number] [address] [place] [id number] March, Decreased GFR R94.4 [place] [address] [place] [id number] [address] [place] [phone] Feb, [place] [address] [facility] [id number] [address] [place] [phone] Feb, Chronic pain syndrome G89.4 and Anxiety F41.9 [place] [address] [place] [id number] [address] [place] [phone] Jan, Decreased GFR R94.4 [place] [address] [place] [id number] [address] [place] [phone] Jan, Decreased GFR R94.4 [facility] [address] [facility] [id number] [address] [place] [id number] Jan, Allergic rhinitis J30.9 ; Es sential hypertension I10 ; Major depressive disorder, recurrent episode, unspecified severity F33.9 and Primary insomnia F51.01 [place] [address] [facility] [id number] [address] [place] [phone] Jan, Acute right-sided thoracic b ack pain M54.6 ; Subacromial bursitis of right shoulder joint M75.51 ; Chronic pain syndrome G89.4 and Anxiety F41.9 [place] [address] [facility] [id number] [address] [place] [phone] Jan, Decreased GFR R94.4 [place] [address] [facility] [id number] [address] [place] [phone] Dec, Decreased GFR R94.4 [place] [address] [facility] [id number] [address] [place] [phone] Dec, Decreased GFR R94.4 [place] [address] [facility] [id number] [address] [place] [id number] Dec, Decreased GFR R94.4 [place] [address] [facility] [id number] [address] [place] [phone] Dec, Decreased GFR R94.4 [place] [address] [facility] [id number] [address] [place] [phone] Dec, Anxiety F41.9 and Bilateral low back pain, with sciatica presence unspecified M54.5 [place] [address] [facility] [id number] [address] [place] [phone] Dec, Thrombocytosis D47.3 ; Hyper lipidemia, unspecified hyperlipidemia E78.5 ; Need for hepatitis C screening test Z11.59 and B12 deficiency E53.8 [place] [address] [facility] [id number] [address] [place] [address] Nov, Need for hepatitis C screeni ng test Z11.59 [facility] [address] [place] [id number] [address] [place] [phone] 13 Nov, 2016 Anxiety F41.9 and Bilateral low back pain, with sciatica presence unspecified M54.5 [facility] [address] [place] [id number] [address] [place] [phone] 16 Oct, 2016 Bilateral low back pain, wit h sciatica presence unspecified M54.5 ; Chronic prescription opiate use Z79.899 ; Anxiety F41.9 ; Essential hypertension I10 ; Hyperlipidemia, unspecified hyperlipidemia E78.5 ; Health care maintenance Z00.00 and Thrombocytosis D47.3 [place] [address] [address] Sep, [place] [address] [address] Sep, [place] [address] [address] Aug, [facility] [address] [address] Jul, B12 deficiency E53.8 [facility] [address] [address] Jul, [place] [address] [address] Jul, Essential hypertension I10 ; Chronic pain syndrome G89.4 ; Anxiety F41.9 ; Screening for breast cancer Z12.39 ; Atherosclerosis of makah coronary artery of makah heart without angina pectoris I25.10 ; Major depressive disorder, recurrent episode, unspecified severity F33.9 ; Primary insomnia F51.01 and Allergic rhinitis J30.9 [facility] [address] [place] [id number] [address] [place] [id number] Jun, [facility] [address] [place] [id number] [address] [place] [id number] Jun, Leg wound, right, initial en counter S81.801A and Encounter for immunization Z23 [facility] [address] [facility] [id number] [address] [place] [id number] Jun, Open wound of right ear, uns pecified open wound type, initial encounter S01.301A [facility] [address] [facility] [id number] [address] [place] [id number] May, B12 deficiency E53.8 [facility] [address] [facility] [id number] [address] [place] [phone] May, [place] [address] [facility] [id number] [address] [place] [phone] May, [place] [address] [place] [id number] [place] [address] May, Chronic pain syndrome G89.4 ; Chronic prescription opiate use Z79.899 ; Allergic rhinitis J30.9 ; Essential hypertension I10 and Non-healing skin lesion L98.9 [place] [address] [place] [id number] [address] [place] [phone] Apr, [place] [address] [address] March, [facility] [address] [place] [id number] [address] [place] [phone] Feb, [place] [address] [place] [id number] [address] [place] [address] Feb, [place] [address] [place] [id number] [address] [place] [address] Feb, Chronic pain syndrome G89.4 ; Anxiety F41.9 ; B12 deficiency E53.8 ; Allergic rhinitis J30.9 ; Fibromyalgia M79.7 ; Actinic keratosis L57.0 ; Skin rash R21 ; Open wound of right ear, unspecified open wound type, initial encounter S01.301A ; Subacromial bursitis, right M75.51 ; GERD (gastroesophageal reflux disease) K21.9 and Chronic obstructive pulmonary disease, unspecified COPD type J44.9 [facility] [address] [id number] [address] [place] [phone] 30 Jan, 2016 [facility] [address] [id number] [address] [place] [phone] Jan, Essential hypertension I10 [facility] [address] [id number] [address] [place] [phone] Jan, [facility] [address] [id number] [address] [place] [phone] Jan, [facility] [address] [facility] [id number] [address] [place] [phone] Jan, [facility] [address] [id number] [address] [place] [phone] Dec, [facility] [address] [id number] [address] [place] [id number] Dec, Essential hypertension I10 [facility] [address] [id number] [address] [place] [phone] Dec, [facility] [address] [id number] [address] [place] [phone] Dec, B12 deficiency E53.8 and Ess ential hypertension I10 [facility] [address] [facility] [id number] [address] [place] [phone] Dec, [facility] [address] [id number] [address] [place] [phone] Nov, Right shoulder pain M25.511 [facility] [address] [facility] [id number] [address] [place] [phone] Nov, Right shoulder pain M25.511 [facility] [address] [facility] [id number] [address] [place] [id number] Nov, Essential hypertension I10 a nd B12 deficiency E53.8 [facility] [address] [facility] [id number] [address] [phone] Nov, Major depressive disorder, r ecurrent episode, unspecified severity F33.9 ; Anxiety F41.9 ; Chronic pain syndrome G89.4 ; Essential hypertension I10 ; Hyperlipidemia, unspecified hyperlipidemia E78.5 ; Chronic prescription opiate use Z79.899 ; Allergic rhinitis J30.9 ; B12 deficiency E53.8 and Right shoulder pain M25.511 [facility] [address] [place] [id number] [address] [place] [phone] Oct, [facility] [address] [id number] [place] [phone] Oct, [facility] [id number] [place] [id number] Sep, [facility] [id number] [place] [phone] Sep, [facility] [id number] [place] [phone] Aug, [facility] [address] [id number] Aug, [facility] [address] [id number] Aug, [facility] [id number] [place] [phone] Aug, Other constipation K59.09 ; Hyperlipidemia, unspecified hyperlipidemia E78.5 ; Essential hypertension I10 ; Primary insomnia F51.01 ; Anxiety F41.9 ; Chronic pain syndrome G89.4 ; Right shoulder pain M25.511 and Acute cystitis without hematuria N30.00 [facility] [id number] [id number] Jul, [facility] [id number] [place] [phone] Jul, [facility] [id number] [place] [phone] Jun, [facility] [id number] [place] [phone] Jun, [facility] [address] [id number] [address] [place] [phone] Jun, [facility] [address] [id number] [address] [place] [phone] May, [facility] [address] [id number] [address] [place] [phone] May, Other chronic pain 338.29 ; Hypertension 401.9 and Constipation due to opioid therapy 564.09 [facility] [address] [id number] [address] [place] [id number] May, [facility] [address] [id number] [address] [place] [id number] May, [facility] [address] [id number] [address] [place] [id number] Apr, [facility] [address] [id number] [address] [place] [id number] Apr, Unspecified essential hypert ension 401.9 [facility] [address] [id number] [address] [place] [id number] Apr, [facility] [address] [id number] [address] [place] [id number] Apr, [facility] [address] [id number] [address] [place] [id number] Apr, [facility] [address] [id number] [address] [place] [phone] Apr, [facility] [address] [id number] [address] [place] [id number] Apr, [facility] [address] [id number] [address] [place] [id number] Apr, [facility] [address] [id number] [address] [place] [id number] March, Unspecified essential hypert ension 401.9 [facility] [address] [id number] [address] [place] [address], [place] [address] March, [facility] [address] [id number] [address] [place] [address], [place] [address] March, [facility] [address] [id number] [address] [place] [address], [place] [address] Feb, [facility] [address] [id number] [address] [place] [address], [place] [address] Feb, [facility] [address] [id number] [address] [place] [address], [place] [address] Jan, [facility] [address] [id number] [address] [place] [id number] Jan, [facility] [address] [id number] [address] [place] [address], [place] [address] Jan, [facility] [address] [id number] [address] [place] [address], [place] [address] Jan, [facility] [address] [id number] [address] [place] [address], [place] [address] Jan, [facility] [address] [id number] [address] [place] [address], [place] [address] Jan, [facility] [address] [id number] [address] [place] [phone] Jan, [facility] [address] [id number] [address] [place] [phone] Dec, [facility] [address] [id number] [address] [place] [address], [place] [address] Dec, [facility] [address] [id number] [address] [place] [id number] Dec, [facility] [address] [id number] [address] [place] [id number] Nov, [facility] [address] [id number] [address] [place] [address], [place] [id number] 16 Nov, 2014 [facility] [address] [id number] [address] [place] [address], [place] [address] Oct, [facility] [address] [id number] [address] [place] [address], [place] [address] Oct, [facility] [address] [id number] [address] [place] [address], [place] [address] Oct, [facility] [address] [id number] [address] [place] [address], [place] [address] Oct, [facility] [address] [id number] [address] [place] [address], [place] [address] Oct, [facility] [address] [id number] [address] [place] [address], [place] [address] Oct, [facility] [address] [id number] [address] [place] [address], [place] [address] Oct, [facility] [address] [id number] [address] [place] [address], [place] [address] Oct, [facility] [address] [id number] [address] [place] [address], [place] [address] Sep, [facility] [address] [id number] [address] [place] [address], [place] [address] Sep, [facility] [address] [id number] [address] [place] [address], [place] [address] Sep, [facility] [address] [id number] [address] [place] [address], [place] [address] Sep, [facility] [address] [id number] [address] [place] [address], [place] [address] Sep, [facility] [address] [id number] [address] [place] [address], [place] [address] Sep, [facility] [address] [id number] [address] [place] [address], [place] [address] Aug, [facility] [address] [id number] [address] [place] [address], [place] [address] Aug, [facility] [address] [id number] [address] [place] [address], [place] [address] Aug, [facility] [address] [id number] [address] [place] [address], [place] [address] Aug, [facility] [address] [id number] [address] [place] [address], [place] [address] Aug, [facility] [address] [id number] [address] [place] [address], [place] [address] Aug, [facility] [address] [id number] [address] [place] [address], [place] [address] Aug, [facility] [address] [id number] [address] [place] [address], [place] [address] Aug, [facility] [address] [id number] [address] [place] [address], [place] [address] Aug, [facility] [address] [id number] [address] [place] [address], [place] [address] Aug, [facility] [address] [id number] [address] [place] [address], [place] [address] Jul, [facility] [address] [id number] [address] [place] [address], [place] [address] 22 Jul, 2014 [facility] [address] [id number] [address] [place] [address], [place] [address] 12 Jul, 2014 [facility] [address] [id number] [address] [place] [address], [place] [address] 12 Jul, 2014 [facility] [address] [id number] [address] [place] [address], [place] [address] 10 Jul, 2014 [facility] [address] [id number] [address] [place] [address], [place] [address] 10 Jul, 2014 [facility] [address] [id number] [address] [place] [address] [place] [address] Jun, [facility] [address] [id number] [facility] [address] Jun, [facility] [address] [id number] [facility] [address] Jun, [facility] [address] [id number] [address] [place] [address], [place] [address] Jun, [facility] [address] [id number] [address] [place] [address], [place] [address] Jun, [facility] [address] [id number] [address] [place] [address], [place] [address] Jun, [facility] [address] [id number] [address] [place] [address], [place] [address] May, [facility] [address] [id number] [address] [place] [address], [place] [address] May, [facility] [address] [id number] [address] [place] [address], [place] [address] May, [facility] [address] [id number] [address] [place] [address], [place] [address] May, [facility] [address] [id number] [address] [place] [address], [place] [address] May, [facility] [address] [id number] [address] [place] [address], [place] [address] Apr, [facility] [address] [id number] [address] [place] [address], [place] [address] Apr, [facility] [address] [id number] [address] [place] [address], [place] [address] Apr, [facility] [address] [id number] [address] [place] [address], [place] [address] Apr, [facility] [address] [id number] [address] [place] [address], [place] [address] March, [facility] [address] [id number] [address] [place] [address], [place] [address] March, [facility] [address] [id number] [address] [place] [address], [place] [address] March, [facility] [address] [id number] [address] [place] [address], [place] [address] March, [facility] [address] [id number] [address] [place] [address], [place] [address] March, [facility] [address] [id number] [address] [place] [address], [place] [address] March, [facility] [address] [id number] [address] [place] [address], [place] [address] Feb, [facility] [address] [id number] [address] [place] [address], [place] [address] Feb, [facility] [address] [id number] [address] [place] [address], [place] [address] Feb, [facility] [address] [id number] [address] [place] [address], [place] [address] Feb, [facility] [address] [id number] [address] [place] [address], [place] [address] Feb, [facility] [address] [id number] [address] [place] [address], [place] [address] Feb, [facility] [address] [id number] [address] [place] [address], [place] [address] Feb, [facility] [address] [id number] [address] [place] [address], [place] [address] Feb, [facility] [address] [id number] [address] [place] [address], [place] [address] Jan, [facility] [address] [id number] [address] [place] [address], [place] [address] Jan, [facility] [address] [id number] [address] [place] [address], [place] [address] Jan, [facility] [address] [id number] [facility] [address] Jan, [facility] [address] [id number] [address] [place] [address], [place] [address] Jan, [facility] [address] [id number] [facility] [address] Jan, [facility] [address] [id number] [address] [place] [address], [place] [address] Dec, [facility] [address] [id number] [address] [place] [address], [place] [address] Dec, [facility] [address] [id number] [address] [place] [address], [place] [address] Nov, [facility] [address] [id number] [address] [place] [address], [place] [address] Nov, [facility] [address] [id number] [address] [place] [address], [place] [address] Nov, [facility] [address] [id number] [address] [place] [address], [place] [address] Nov, [facility] [address] [id number] [address] [place] [address], [place] [address] Nov, [facility] [address] [id number] [address] [place] [address], [place] [address] Nov, [facility] [address] [id number] [address] [place] [address], [place] [address] Nov, [facility] [address] [id number] [address] [place] [address], [place] [address] Nov, [facility] [address] [id number] [address] [place] [address], [place] [address] Nov, [facility] [address] [id number] [address] [place] [address], [place] [address] Nov, [facility] [address] [id number] [address] [place] [address], [place] [address] Nov, [facility] [address] [id number] [address] [place] [address], [place] [address] Nov, [facility] [address] [id number] [address] [place] [address], [place] [address] Nov, [facility] [address] [id number] [address] [place] [address], [place] [address] Nov, [facility] [address] [id number] [address] [place] [address], [place] [address] Nov, [facility] [address] [id number] [address] [place] [address], [place] [address] Oct, [facility] [address] [id number] [address] [place] [address], [place] [address] Oct, [facility] [address] [id number] [address] [place] [address], [place] [address] Oct, [facility] [address] [id number] [address] [place] [address], [place] [address] Oct, [facility] [address] [id number] [address] [place] [address], [place] [address] Oct, [facility] [address] [id number] [address] [place] [address], [place] [address] Oct, [facility] [address] [id number] [address] [place] [address], [place] [address] Oct, [facility] [address] [id number] [address] [place] [address], [place] [address] Oct, [facility] [address] [id number] [address] [place] [address], [place] [address] Oct, [facility] [address] [id number] [address] [place] [address], [place] [address] Aug, [facility] [address] [id number] [address] [place] [address], [place] [address] Aug, IMMUNIZATIONS No Known Immunizations SOCIAL HISTORY [...] by Dr. Troy Michelle pain specialist in [place], [place] Medical History Chronic low back pain [...]
--- OUTSIDE RECORDS SUMMARY | 2020-06-19 02:25 | XMS REPORT ---
Author Author Mahsa ROBERTS Organization [facility] Address [address] [place] [address] Care Team Providers Care Party Coordinator Name Role Phone ARMANDONONAASHVIN Unavailable PROBLEMS Type Condition ICD9-CM Code [id number] Code Onset Dates Condition S tatus SNOMED Code Problem Chronic pain syndrome G89.4 Active 495988286 Problem Other constipation K59.09 Active 1 [id number] Problem Anxiety F41.9 Active 38696678 Problem Primary insomnia F51.01 Active 193 054144 Problem Atherosclerosis of [place] co ronary artery of [place] heart without angina pectoris I25.10 Active [id number] Problem Essential hypertension I10 Active 90041051 Problem Hyperlipidemia, unspecified hyperlipidemia E78.5 Active 17475137 Problem Major depressive disorder, recurrent episode, un specified severity F33.9 Active 08941792 Problem Allergic rhinitis J30.9 Active 61 593403 Problem Fibromyalgia M79.7 Active 4649215 7 Problem GERD (gastroesophageal reflux disease) K21.9 Active 889686514 Problem Degenerative disc disease, thoracic M51.34 Active 28911268 Problem Bilateral low back pain, with sciatica presence unspecifie d M54.5 Active 581293199 Problem Moderate episode of recurrent major depressive disorder F33.1 Active 120817243 Problem B12 deficiency E53.8 Active 88618 4004 Problem Chronic obstructive pulmonary disease, unspecified COPD ty pe J44.9 Active 62289259 Problem CKD (chronic kidney disease) stage 3, GFR 30-59 ml/min N18.3 Active 364947228 Problem Cannabis abuse F12.10 Active 87703 009 Problem Degenerative disc disease, cervical M50.30 Active [id number] ALLERGIES No Information ENCOUNTERS Encounter Location Date Diagnosis [facility] [address] [facility] [id number] [address] [place] [address] Feb, CKD (chronic kidney disease) stage 3, GFR 30-59 ml/min N18.3 and B12 deficiency E53.8 [facility] [address] [facility] [id number] [address] [place] [phone] 07 Feb, 2020 CKD (chronic kidney disease) stage 3, GFR 30-59 ml/min N18.3 and B12 deficiency E53.8 [facility] [address] [facility] [id number] [address] [place] [phone] Jan, [facility] [address] [facility] [id number] [address] [place] [phone] Nov, [facility] [address] [facility] [id number] [address] [place] [phone] Oct, Moderate episode of recurren t major depressive disorder F33.1 ; Chronic obstructive pulmonary disease, unspecified COPD type J44.9 ; CKD (chronic kidney disease) stage 3, GFR 30-59 ml/min N18.3 ; Essential hypertension I10 and Possible exposure to STD Z20.2 [facility] [address] [facility] [id number] [address] [place] [phone] Oct, Essential hypertension I10 [facility] [address] [facility] [id number] [address] [place] [phone] Oct, [facility] [address] [facility] [id number] [address] [place] [phone] Sep, Essential hypertension I10 [facility] [address] [facility] [id number] [address] [place] [phone] Sep, [facility] [address] [facility] [id number] [address] [place] [phone] Sep, [facility] [address] [facility] [id number] [address] [place] [phone] Sep, [facility] [address] [facility] [id number] [address] [place] [phone] Aug, Essential hypertension I10 [facility] [address] [facility] [id number] [address] [place] [phone] Aug, Essential hypertension I10 [facility] [address] [facility] [id number] [address] [place] [phone] 25 Jul, 2019 Allergic rhinitis J30.9 ; CK D (chronic kidney disease) stage 3, GFR 30-59 ml/min N18.3 ; Essential hypertension I10 and Moderate episode of recurrent major depressive disorder F33.1 [place] [address] [place] [id number] [address] [place] [phone] 11 Jul, 2019 Elevated platelet count R79. 89 ; B12 deficiency E53.8 ; Hyperlipidemia, unspecified hyperlipidemia E78.5 and CKD (chronic kidney disease) stage 3, GFR 30-59 ml/min N18.3 [place] [place] [address] [place] [id number] [address] [place] [phone] Apr, B12 deficiency E53.8 [facility] [address] [facility] [id number] [address] [place] [phone] Jan, Periumbilical hernia K42.9 ; CKD (chronic kidney disease) stage 3, GFR 30-59 ml/min N18.3 ; Essential hypertension I10 ; GERD (gastroesophageal reflux disease) K21.9 ; Hyperlipidemia, unspecified hyperlipidemia E78.5 and Major depressive disorder, recurrent episode, unspecified severity F33.9 [place] [address] [facility] [id number] [address] [place] [phone] 12 Dec, 2018 Anxiety F41.9 [place] [address] [facility] [id number] [address] [place] [phone] Nov, Elevated platelet count R79. 89 [place] [address] [facility] [id number] [address] [place] [phone] 15 Nov, 2018 [place] [address] [place] [id number] [address] [place] [phone] Nov, Elevated platelet count R79. 89 [place] [address] [facility] [id number] [address] [place] [phone] Nov, Anxiety F41.9 [place] [address] [place] [id number] [address] [place] [phone] Nov, Bilateral low back pain, wit h sciatica presence unspecified M54.5 ; Cervicalgia M54.2 ; Degenerative disc disease, cervical M50.30 and Degenerative disc disease, thoracic M51.34 [place] [address] [address] Nov, Chronic pain syndrome G89.4 and Bilateral low back pain, with sciatica presence unspecified M54.5 [place] [place] [address] [address] Oct, Umbilical hernia without obs truction and without gangrene K42.[address] [address] Oct, Chronic pain syndrome G89.[address] [address] Oct, Chronic pain syndrome G89.4 and Anxiety F41.[address] [address] Oct, Elevated platelet count R79. [address] [address] Oct, CKD (chronic kidney disease) stage 3, GFR 30-59 ml/min N18.3 ; Other chest pain R07.89 ; Acute midline thoracic back pain M54.6 ; Essential hypertension I10 and History of osteoporosis Z87.39 [place] [address] [address] Sep, Chronic pain syndrome G89.4 [place] [address] [address] Sep, [address] [address] Sep, Anxiety F41.9 and Chronic pa in syndrome G89.[address] [address] Aug, Chronic pain syndrome G89.4 and Anxiety F41.9 [place] [address] [address] Aug, [place] [address] [address] Aug, Cannabis abuse F12.10 and Co ntrolled substance agreement terminated Z91.[address] [address] Jul, Chronic pain syndrome G89.4 ; Bilateral low back pain, with sciatica presence unspecified M54.5 ; Chronic prescription opiate use Z79.899 ; Essential hypertension I10 ; Hyperlipidemia, unspecified hyperlipidemia E78.5 ; CKD (chronic kidney disease) stage 3, GFR 30-59 ml/min N18.3 and Allergic rhinitis J30.9 [place] [address] [address] Jul, Chronic pain syndrome G89.4 and Anxiety F41.9 [place] [address] [address] Jul, Screening for breast cancer Z12.31 and Major depressive disorder, recurrent episode, unspecified severity F33.9 [facility] [place] [address] [place] [id number] [place] [address] Jun, Chronic pain syndrome G89.4 and Anxiety F41.9 [place] [address] [address] May, Chronic pain syndrome G89.4 and Anxiety F41.9 [place] [address] [place] [id number] [place] [phone] Apr, Anxiety F41.9 [place] [address] [place] [id number] [place] [address] Apr, Chronic prescription opiate use Z79.899 ; Chronic pain syndrome G89.4 ; Essential hypertension I10 ; Allergic rhinitis J30.9 and CKD (chronic kidney disease) stage 3, GFR 30-59 ml/min N18.3 [place] [address] [address] Apr, [place] [address] [address] March, Anxiety F41.9 and Chronic pa in syndrome G89.4 [place] [address] [address] March, CKD (chronic kidney disease) stage 3, GFR 30-59 ml/min N18.3 ; B12 deficiency E53.8 and Hyperlipidemia, unspecified hyperlipidemia E78.5 [place] [address] [address] March, Anxiety F41.9 and Chronic pa in syndrome G89.4 [place] [address] [address] Feb, Anxiety F41.9 and Chronic pa in syndrome G89.4 [place] [address] [address] Jan, B12 deficiency E53.8 [place] [address] [address] Jan, [place] [address] [address] Jan, Anxiety F41.9 ; Chronic pain syndrome G89.4 and Essential hypertension I10 [place] [address] [address] Jan, CKD (chronic kidney disease) stage 3, [...] Subacromial bursitis of right shoulder joint M75.51 [facility] [address] [facility] [id number] [address] [place] [phone] 28 Dec, 2017 Essential hypertension I10 [facility] [address] [facility] [id number] [address] [place] [phone] 15 Dec, 2017 Chronic pain syndrome G89.4 [facility] [address] [facility] [id number] [address] [place] [phone] Dec, Chronic pain syndrome G89.4 [facility] [address] [facility] [id number] [address] [place] [id number] Nov, [facility] [address] [place] [id number] [address] [place] [phone] Nov, Chronic pain syndrome G89.4 and Anxiety F41.9 [place] [address] [place] [id number] [address] [place] [phone] Oct, Chronic pain syndrome G89.4 ; Other constipation K59.09 and Chronic prescription opiate use Z79.899 [place] [address] [place] [id number] [address] [place] [phone] Oct, Chronic pain syndrome G89.4 and Anxiety F41.9 [place] [id number] [place] [id number] [address] [place] [phone] Sep, Essential hypertension I10 [facility] [address] [facility] [id number] [address] [place] [phone] 16 Sep, 2017 Chronic pain syndrome G89.4 and Anxiety F41.9 [facility] [address] [facility] [id number] [address] [place] [phone] Aug, Chronic pain syndrome G89.4 and Anxiety F41.9 [facility] [address] [facility] [id number] [address] [place] [phone] 28 Jul, 2017 Essential hypertension I10 [facility] [address] [place] [id number] [address] [place] [phone] Jul, Chronic obstructive pulmonar y disease, unspecified COPD type J44.9 [place] [id number] [facility] [id number] [address] [place] [phone] Jul, Chronic pain syndrome G89.4 and Anxiety F41.9 [place] [address] [facility] [id number] [address] [place] [phone] Jul, Chronic pain syndrome G89.4 ; Essential hypertension I10 ; Fibromyalgia M79.7 ; CKD (chronic kidney disease) stage 3, GFR 30-59 ml/min N18.3 ; Subacromial bursitis, right M75.51 and Goals of care, co unseling/discussion Z71.89 [place] [address] [facility] [id number] [address] [place] [phone] Jun, Chronic pain syndrome G89.4 and Anxiety F41.9 [place] [address] [place] [id number] [address] [place] [phone] May, Chronic pain syndrome G89.4 and Anxiety F41.9 [place] [address] [place] [id number] [address] [place] [phone] Apr, Chronic pain syndrome G89.4 and Anxiety F41.9 [place] [address] [facility] [id number] [address] [place] [phone] Apr, Drug induced constipation K5 9.03 ; Chronic pain syndrome G89.4 and CKD (chronic kidney disease) stage 3, GFR 30-59 ml/min N18.3 [place] [address] [facility] [id number] [address] [place] [address] Apr, Chronic pain syndrome G89.4 and Anxiety F41.9 [place] [address] [facility] [id number] [address] [place] [phone] March, Chronic pain syndrome G89.4 and Anxiety F41.9 [place] [address] [facility] [id number] [address] [place] [phone] March, Decreased GFR R94.4 [facility] [address] [id number] [address] [place] [phone] Feb, [facility] [address] [facility] [id number] [address] [place] [phone] Feb, Chronic pain syndrome G89.4 and Anxiety F41.9 [facility] [address] [facility] [id number] [address] [place] [phone] Jan, Decreased GFR R94.4 [facility] [address] [facility] [id number] [address] [place] [phone] Jan, Decreased GFR R94.4 [facility] [address] [facility] [id number] [address] [place] [phone] Jan, Allergic rhinitis J30.9 ; Es sential hypertension I10 ; Major depressive disorder, recurrent episode, unspecified severity F33.9 and Primary insomnia F51.01 [facility] [address] [facility] [id number] [address] [place] [phone] Jan, Acute right-sided thoracic b ack pain M54.6 ; Subacromial bursitis of right shoulder joint M75.51 ; Chronic pain syndrome G89.4 and Anxiety F41.9 [facility] [address] [place] [id number] [address] [place] [phone] Jan, Decreased GFR R94.4 [facility] [address] [facility] [id number] [address] [place] [phone] Dec, Decreased GFR R94.4 [facility] [address] [facility] [id number] [address] [place] [phone] Dec, Decreased GFR R94.4 [facility] [address] [facility] [id number] [address] [place] [phone] Dec, Decreased GFR R94.4 [facility] [address] [facility] [id number] [address] [place] [phone] Dec, Decreased GFR R94.4 [facility] [address] [address] Dec, Anxiety F41.9 and Bilateral low back pain, with sciatica presence unspecified M54.5 [place] [address] [address] Dec, Thrombocytosis D47.3 ; Hyper lipidemia, unspecified hyperlipidemia E78.5 ; Need for hepatitis C screening test Z11.59 and B12 deficiency E53.8 [place] [address] [address] Nov, Need for hepatitis C screeni ng test Z11.59 [place] [address] [address] Nov, Anxiety F41.9 and Bilateral low back pain, with sciatica presence unspecified M54.5 [place] [address] [address] Oct, Bilateral low back pain, wit h sciatica presence unspecified M54.5 ; Chronic prescription opiate use Z79.899 ; Anxiety F41.9 ; Essential hypertension I10 ; Hyperlipidemia, unspecified hyperlipidemia E78.5 ; Health care maintenance Z00.00 and Thrombocytosis D47.3 [place] [address] [address] Sep, [place] [address] [address] Sep, [place] [address] [address] Aug, [place] [address] [address] Jul, B12 deficiency E53.8 [place] [address] [address] Jul, [place] [address] [address] Jul, Essential hypertension I10 ; Chronic pain syndrome G89.4 ; Anxiety F41.9 ; Screening for breast cancer Z12.39 ; Atherosclerosis of [place] coronary artery of [place] heart without angina pectoris I25.10 ; Major depressive disorder, recurrent episode, unspecified severity F33.9 ; Primary insomnia F51.01 and Allergic rhinitis J30.9 [facility] [address] [facility] [id number] [address] [place] [phone] Jun, [facility] [address] [facility] [id number] [address] [place] [address] Jun, Leg wound, right, initial en counter S81.801A and Encounter for immunization Z23 [facility] [address] [facility] [id number] [address] [place] [phone] Jun, Open wound of right ear, uns pecified open wound type, initial encounter S01.301A [facility] [address] [facility] [id number] [address] [place] [phone] May, B12 deficiency E53.8 [facility] [address] [facility] [id number] [address] [place] [phone] May, [facility] [address] [facility] [id number] [address] [place] [address] May, [facility] [address] [facility] [id number] [address] [place] [address] May, Chronic pain syndrome G89.4 ; Chronic prescription opiate use Z79.899 ; Allergic rhinitis J30.9 ; Essential hypertension I10 and Non-healing skin lesion L98.9 [facility] [address] [facility] [id number] [address] [place] [phone] Apr, [facility] [address] [facility] [id number] [address] [place] [phone] March, [facility] [address] [facility] [id number] [address] [place] [phone] Feb, [facility] [address] [place] [id number] [address] [place] [phone] Feb, [facility] [address] [address] Feb, Chronic pain syndrome G89.4 ; Anxiety [...] J44.9 [facility] [address] [facility] [id number] [address] [address] Jan, [facility] [address] [address] Jan, Essential hypertension I10 [facility] [address] [address] Jan, [facility] [address] [address] Jan, [facility] [address] [address] Jan, [facility] [address] [address] Dec, [facility] [address] [address] Dec, Essential hypertension I10 [facility] [address] [facility] [id number] [address] [place] [phone] Dec, [facility] [address] [address] Dec, B12 deficiency E53.8 and Ess ential hypertension I10 [facility] [address] [place] [id number] [address] [place] [phone] Dec, [facility] [address] [place] [id number] [address] [place] [address] Nov, Right shoulder pain M25.511 [facility] [address] [address] Nov, Right shoulder pain M25.511 [facility] [address] [address] Nov, Essential hypertension I10 a nd B12 deficiency E53.8 [facility] [address] [address] 14 Nov, 2015 Major depressive disorder, r ecurrent episode, unspecified severity F33.9 ; Anxiety F41.9 ; Chronic pain syndrome G89.4 ; Essential hypertension I10 ; Hyperlipidemia, unspecified hyperlipidemia E78.5 ; Chronic prescription opiate use Z79.899 ; Allergic rhinitis J30.9 ; B12 deficiency E53.8 and Right shoulder pain M25.511 [place] [id number] [address] Oct, [place] [address] [address] Oct, [place] [address] [address] Sep, [place] [address] [address] Sep, [place] [address] [place] [id number] [address] [place] [address] Aug, [facility] [address] [address] Aug, [facility] [address] [address] Aug, [facility] [address] [address] Aug, Other constipation K59.09 ; Hyperlipidemia, unspecified hyperlipidemia E78.5 ; Essential hypertension I10 ; Primary insomnia F51.01 ; Anxiety F41.9 ; Chronic pain syndrome G89.4 ; Right shoulder pain M25.511 and Acute cystitis without hematuria N30.00 [facility] [address] [facility] [id number] [address] [place] [phone] 16 Jul, 2015 [facility] [address] [place] [id number] [address] [place] [address] Jul, [facility] [address] [id number] [address] [place] [phone] Jun, [facility] [address] [facility] [id number] [address] [place] [phone] Jun, [facility] [address] [place] [id number] [place] [phone] Jun, [facility] [address] [place] [id number] [address] [place] [phone] May, [facility] [address] [place] [id number] [address] [place] [address] May, Other chronic pain 338.29 ; Hypertension 401.9 and Constipation due to opioid therapy 564.09 [facility] [address] [facility] [id number] [address] [place] [phone] May, [facility] [address] [place] [id number] [address] [place] [phone] May, [facility] [address] [facility] [id number] [address] [place] [phone] Apr, [facility] [address] [facility] [id number] [address] [place] [phone] Apr, Unspecified essential hypert ension 401.9 [facility] [address] [facility] [id number] [address] [place] [phone] Apr, [facility] [address] [place] [id number] [address] [place] [phone] Apr, [facility] [address] [id number] [address] [place] [address], [place] [address] 16 Apr, 2015 [facility] [address] [id number] [address] [place] [address], [place] [id number] 16 Apr, 2015 [facility] [address] [id number] [address] [place] [address], [place] [id number] 15 Apr, 2015 [facility] [address] [id number] [address] [place] [id number] Apr, [facility] [address] [id number] [address] [place] [address], [place] [phone] March, Unspecified essential hypert ension 401.9 [facility] [address] [id number] [address] [place] [address], [place] [phone] March, [facility] [address] [id number] [address] [place] [phone] March, [facility] [address] [id number] [address] [place] [address], [place] [id number] 14 Feb, 2015 [facility] [address] [id number] [address] [place] [id number] Feb, [facility] [address] [id number] [address] [place] [address], [place] [address] 23 Jan, 2015 [facility] [address] [id number] [address] [place] [id number] 23 Jan, 2015 [facility] [address] [id number] [address] [place] [id number] 17 Jan, 2015 [facility] [address] [id number] [address] [place] [id number] 17 Jan, 2015 [facility] [address] [id number] [address] [place] [address], [place] [address] 13 Jan, 2015 [facility] [address] [id number] [address] [place] [id number] 02 Jan, 2015 [facility] [address] [id number] [address] [place] [phone] Jan, [facility] [address] [id number] [address] [place] [address], [place] [address] 16 Dec, 2014 [facility] [address] [id number] [address] [place] [address], [place] [address] 16 Dec, 2014 [facility] [address] [id number] [address] [place] [address], [place] [address] Dec, [facility] [address] [id number] [address] [place] [address], [place] [address] Nov, [facility] [address] [id number] [address] [place] [address], [place] [address] Nov, [facility] [address] [id number] [address] [place] [address], [place] [address] Oct, [facility] [address] [id number] [address] [place] [address], [place] [address] Oct, [facility] [address] [id number] [address] [place] [address], [place] [address] Oct, [facility] [address] [id number] [address] [place] [address], [place] [address] Oct, [facility] [address] [id number] [address] [place] [address], [place] [address] Oct, [facility] [address] [id number] [address] [place] [address], [place] [address] Oct, [facility] [address] [id number] [address] [place] [address], [place] [address] Oct, [facility] [address] [id number] [address] [place] [address], [place] [address] Oct, [facility] [address] [id number] [address] [place] [address], [place] [address] Sep, [facility] [address] [id number] [address] [place] [address], [place] [address] Sep, [facility] [address] [id number] [address] [place] [address], [place] [address] Sep, [facility] [address] [id number] [address] [place] [address], [place] [address] Sep, [facility] [address] [id number] [address] [place] [address], [place] [address] Sep, [facility] [address] [id number] [address] [place] [address], [place] [address] Sep, [facility] [address] [id number] [address] [place] [address], [place] [address] Aug, [facility] [address] [id number] [address] [place] [address], [place] [address] Aug, [facility] [address] [id number] [address] [place] [address], [place] [address] Aug, [facility] [address] [id number] [address] [place] [address], [place] [address] Aug, [facility] [address] [id number] [address] [place] [address], [place] [address] Aug, [facility] [address] [id number] [address] [place] [address], [place] [address] Aug, [facility] [address] [id number] [address] [place] [address], [place] [address] Aug, [facility] [address] [id number] [address] [place] [address], [place] [address] Aug, [facility] [address] [id number] [address] [place] [address], [place] [address] Aug, [facility] [address] [id number] [address] [place] [address], [place] [address] Aug, [facility] [address] [id number] [address] [place] [address], [place] [address] Jul, [facility] [address] [id number] [address] [place] [address], [place] [address] Jul, [facility] [address] [id number] [facility] [place] [place] [address] Jul, [facility] [address] [id number] [address] [place] [address], [place] [address] Jul, [facility] [address] [id number] [address] [place] [address], [place] [address] Jul, [facility] [address] [id number] [address] [place] [address], [place] [address] Jul, [facility] [address] [id number] [address] [place] [address], [place] [address] Jun, [facility] [address] [id number] [address] [place] [address], [place] [address] Jun, [facility] [address] [id number] [address] [place] [address], [place] [address] Jun, [facility] [address] [id number] [address] [place] [address], [place] [address] Jun, [facility] [address] [id number] [address] [place] [address], [place] [address] Jun, [facility] [address] [id number] [address] [place] [address], [place] [address] Jun, [facility] [address] [id number] [address] [place] [address], [place] [address] May, [facility] [address] [id number] [address] [place] [address], [place] [address] May, [facility] [address] [id number] [address] [place] [address], [place] [address] May, [facility] [address] [id number] [address] [place] [address], [place] [address] May, [facility] [address] [id number] [address] [place] [address], [place] [address] May, [facility] [address] [id number] [address] [place] [address], [place] [address] Apr, [facility] [address] [id number] [address] [place] [address], [place] [address] Apr, [facility] [address] [id number] [address] [place] [address], [place] [address] Apr, [facility] [address] [id number] [address] [place] [address], [place] [address] Apr, [facility] [address] [id number] [address] [place] [address], [place] [address] March, [facility] [address] [id number] [address] [place] [address], [place] [address] March, [facility] [address] [id number] [address] [place] [address], [place] [address] March, [facility] [address] [id number] [address] [place] [address], [place] [address] March, [facility] [address] [id number] [address] [place] [address], [place] [address] March, [facility] [address] [id number] [address] [place] [address], [place] [address] March, [facility] [address] [id number] [address] [place] [address], [place] [address] Feb, [facility] [address] [id number] [address] [place] [address], [place] [address] Feb, [facility] [address] [id number] [address] [place] [address], [place] [address] Feb, [facility] [address] [id number] [address] [place] [address], [place] [address] Feb, [facility] [address] [id number] [address] [place] [address], [place] [address] Feb, [facility] [address] [id number] [address] [place] [address], [place] [address] Feb, [facility] [address] [id number] [facility] [place] [place] [address] Feb, [facility] [address] [id number] [address] [place] [address], [place] [address] Feb, [facility] [address] [id number] [facility] [place] [address] Jan, [facility] [address] [id number] [address] [place] [address], [place] [address] Jan, [facility] [address] [id number] [address] [place] [address], [place] [address] Jan, [facility] [address] [id number] [address] [place] [address], [place] [address] Jan, [facility] [address] [id number] [address] [place] [address], [place] [address] Jan, [facility] [address] [id number] [address] [place] [address], [place] [address] Jan, [facility] [address] [id number] [address] [place] [address], [place] [address] Dec, [facility] [address] [id number] [address] [place] [address], [place] [address] Dec, [facility] [address] [id number] [address] [place] [address], [place] [address] Nov, [facility] [address] [id number] [address] [place] [address], [place] [address] Nov, [facility] [address] [id number] [address] [place] [address], [place] [address] Nov, [facility] [address] [id number] [address] [place] [address], [place] [address] Nov, [facility] [address] [id number] [address] [place] [address], [place] [address] Nov, [facility] [address] [id number] [address] [place] [address], [place] [address] Nov, [facility] [address] [id number] [address] [place] [address], [place] [address] Nov, [facility] [address] [id number] [address] [place] [address], [place] [address] Nov, [facility] [address] [id number] [address] [place] [address], [place] [address] Nov, [facility] [address] [id number] [address] [place] [address], [place] [address] Nov, [facility] [address] [id number] [address] [place] [address], [place] [address] Nov, [facility] [address] [id number] [address] [place] [address], [place] [address] Nov, [facility] [address] [id number] [address] [place] [address], [place] [address] Nov, [facility] [address] [id number] [address] [place] [address], [place] [address] Nov, [facility] [address] [id number] [address] [place] [address], [place] [address] Nov, [facility] [address] [id number] [address] [place] [address], [place] [address] Oct, [facility] [address] [id number] [address] [place] [address], [place] [address] Oct, [facility] [address] [id number] [address] [place] [address], [place] [address] Oct, [facility] [address] [id number] [address] [place] [address], [place] [address] Oct, [facility] [address] [id number] [address] [place] [address], [place] [address] Oct, [facility] [address] [id number] [address] [place] [address], [place] [address] Oct, [facility] [address] [id number] [address] [place] [id number] Oct, [facility] [address] [facility] [id number] [address] [place] [id number] Oct, [facility] [address] [facility] [id number] [address] [place] [address] Oct, [facility] [address] [facility] [id number] [address] [place] [address] Aug, [facility] [address] [facility] [id number] [address] [place] [id number] Aug, IMMUNIZATIONS No Known Immunizations SOCIAL HISTORY Never Assessed REASON FOR VISIT PLAN OF CARE VITAL SIGNS Height 69 in 2014-07-02 Weight 221 lbs 2014-07-02 Temperature 98.6 degrees Fahrenheit 2014-07-02 Heart Rate 86 bpm 2014-07-02 Respiratory Rate 20 2014-07-02 Blood pressure systolic 136 mmHg 2014-07-02 Blood pressure diastolic 88 mmHg 2014-07-02 MEDICATIONS Unknown Medications RESULTS No Results PROCEDURES No Known procedures INSTRUCTIONS MEDICATIONS ADMINISTERED No Known Medications MEDICAL (GENERAL) HISTORY Type Description Date Medical History hypertension Medical History asthma Medical History Arthritis Medical History Hypoglycemia Medical History Heart Cath 11/05/2013 Medical History herniated disc--Seen by Dr. Troy Michelle pain specialist in [place], [place] Medical History Chronic low back pain Medical History depression Medical History anxiety Medical History Panic attacks Medical History Vitamin B 12 deficiency r/t gastric bypa ss Medical History Low back injections 11/2012, 06/2013 Medical History Thrombocytosis Surgical History tonsillectomy Surgical History gastric bypass--2003-in [facility] [place] Unsure of Dr's name. No [...]
--- OUTSIDE RECORDS SUMMARY | 2020-06-19 02:26 | XMS REPORT ---
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 Name Role Phone SAUL DIOP Unavailable PROBLEMS Type Condition ICD9-CM Code [id number] Code Onset Dates Condition S tatus SNOMED Code Problem Chronic pain syndrome G89.4 Active 734937306 Problem Other constipation K59.09 Active 1 [id number] Problem Anxiety F41.9 Active 78891516 Problem Primary insomnia F51.01 Active 193 787123 Problem Atherosclerosis of [place] co ronary artery of [place] heart without angina pectoris I25.10 Active 7008236948475 Problem Essential hypertension I10 Active 01564883 Problem Hyperlipidemia, unspecified hyperlipidemia E78.5 Active 63261846 Problem Major depressive disorder, recurrent episode, un specified severity F33.9 Active 70585313 Problem Allergic rhinitis J30.9 Active 61 617110 Problem Fibromyalgia M79.7 Active 9575283 7 Problem GERD (gastroesophageal reflux disease) K21.9 Active 516505678 Problem Degenerative disc disease, thoracic M51.34 Active 25794680 Problem Bilateral low back pain, with sciatica presence unspecifie d M54.5 Active 145670047 Problem Moderate episode of recurrent major depressive disorder F33.1 Active 994664879 Problem B12 deficiency E53.8 Active 37691 4004 Problem Chronic obstructive pulmonary disease, unspecified COPD ty pe J44.9 Active 81201500 Problem CKD (chronic kidney disease) stage 3, GFR 30-59 ml/min N18.3 Active 382582999 Problem Cannabis abuse F12.10 Active 25791 009 Problem Degenerative disc disease, cervical M50.30 Active 96089238 ALLERGIES No Information ENCOUNTERS Encounter Location Date Diagnosis [facility] [address] [facility] [id number] [address] [place] [id number] Jan, [facility] [address] [facility] [id number] [address] [place] [address] Nov, [facility] [address] [facility] [id number] [address] [place] [address] Oct, Moderate episode of recurren t major depressive disorder F33.1 ; Chronic obstructive pulmonary disease, unspecified COPD type J44.9 ; CKD (chronic kidney disease) stage 3, GFR 30-59 ml/min N18.3 ; Essential hypertension I10 and Possible exposure to STD Z20.2 [facility] [address] [facility] [id number] [address] [place] [id number] Oct, Essential hypertension I10 [facility] [address] [facility] [id number] [address] [place] [address] Oct, [facility] [address] [facility] [id number] [address] [place] [address] Sep, Essential hypertension I10 [facility] [address] [facility] [id number] [address] [place] [address] Sep, [facility] [address] [facility] [id number] [address] [place] [address] Sep, [facility] [address] [facility] [id number] [address] [place] [address] Sep, [facility] [address] [facility] [id number] [address] [place] [address] Aug, Essential hypertension I10 [facility] [address] [facility] [id number] [address] [place] [address] Aug, Essential hypertension I10 [facility] [address] [facility] [id number] [address] [place] [address] Jul, Allergic rhinitis J30.9 ; CK D (chronic kidney disease) stage 3, GFR 30-59 ml/min N18.3 ; Essential hypertension I10 and Moderate episode of recurrent major depressive disorder F33.1 [facility] [address] [facility] [id number] [address] [place] [address] Jul, Elevated platelet count R79. 89 ; B12 deficiency E53.8 ; Hyperlipidemia, unspecified hyperlipidemia E78.5 and CKD (chronic kidney disease) stage 3, GFR 30-59 ml/min N18.3 [place] [address] [facility] [id number] [address] [place] [address] 04 Apr, 2019 B12 deficiency E53.8 [place] [address] [facility] [id number] [address] [place] [address] Jan, Periumbilical hernia K42.9 ; CKD (chronic kidney disease) stage 3, GFR 30-59 ml/min N18.3 ; Essential hypertension I10 ; GERD (gastroesophageal reflux disease) K21.9 ; Hyperlipidemia, unspecified hyperlipidemia E78.5 and Major depressive disorder, recurrent episode, unspecified severity F33.9 [place] [address] [address] 12 Dec, 2018 Anxiety F41.9 [place] [address] [address] Nov, Elevated platelet count R79. 89 [place] [address] [place] [id number] [address] [place] [address] 15 Nov, 2018 [place] [address] [place] [id number] [address] [place] [address] Nov, Elevated platelet count R79. 89 [place] [address] [place] [id number] [address] [place] [address] Nov, Anxiety F41.9 [place] [address] [place] [id number] [address] [place] [address] Nov, Bilateral low back pain, wit h sciatica presence unspecified M54.5 ; Cervicalgia M54.2 ; Degenerative disc disease, cervical M50.30 and Degenerative disc disease, thoracic M51.34 [place] [address] [place] [id number] [address] [place] [address] 07 Nov, 2018 Chronic pain syndrome G89.4 and Bilateral low back pain, with sciatica presence unspecified M54.5 [place] [address] [address] Oct, Umbilical hernia without obs truction and without gangrene K42.9 [place] [address] [address] Oct, Chronic pain syndrome G89.4 [place] [address] [address] Oct, Chronic pain syndrome G89.4 and Anxiety F41.9 [place] [address] [address] Oct, Elevated platelet count R79. 89 [place] [address] [address] Oct, CKD (chronic kidney disease) stage 3, GFR 30-59 ml/min N18.3 ; Other chest pain R07.89 ; Acute midline thoracic back pain M54.6 ; Essential hypertension I10 and History of osteoporosis Z87.39 [place] [address] [address] Sep, Chronic pain syndrome G89.4 [place] [address] [address] 16 Sep, 2018 [place] [address] [address] Sep, Anxiety F41.9 and Chronic pa in syndrome G89.4 [place] [address] [address] Aug, Chronic pain syndrome G89.4 and Anxiety F41.9 [place] [address] [address] Aug, [place] [id number] Aug, Cannabis abuse F12.10 and Co ntrolled substance agreement terminated Z91.[address] [address] Jul, Chronic pain syndrome G89.4 ; Bilateral low back pain, with sciatica presence unspecified M54.5 ; Chronic prescription opiate use Z79.899 ; Essential hypertension I10 ; Hyperlipidemia, unspecified hyperlipidemia E78.5 ; CKD (chronic kidney disease) stage 3, GFR 30-59 ml/min N18.3 and Allergic rhinitis J30.9 [place] [address] [place] [id number] [address] [place] [address] Jul, Chronic pain syndrome G89.4 and Anxiety F41.9 [place] [address] [place] [id number] [address] [place] [address] Jul, Screening for breast cancer Z12.31 and Major depressive disorder, recurrent episode, unspecified severity F33.9 [place] [address] [place] [id number] [address] [place] [address] Jun, Chronic pain syndrome G89.4 and Anxiety F41.9 [place] [address] [place] [id number] [address] [place] [address] May, Chronic pain syndrome G89.4 and Anxiety F41.9 [place] [address] [place] [id number] [address] [place] [address] Apr, Anxiety F41.9 [place] [address] [place] [id number] [address] [place] [address] Apr, Chronic prescription opiate use Z79.899 ; Chronic pain syndrome G89.4 ; Essential hypertension I10 ; Allergic rhinitis J30.9 and CKD (chronic kidney disease) stage 3, GFR 30-59 ml/min N18.3 [place] [address] [facility] [id number] [address] [place] [address] Apr, [place] [address] [place] [id number] [address] [place] [address] March, Anxiety F41.9 and Chronic pa in syndrome G89.4 [place] [address] [place] [id number] [address] [place] [address] March, CKD (chronic kidney disease) stage 3, GFR 30-59 ml/min N18.3 ; B12 deficiency E53.8 and Hyperlipidemia, unspecified hyperlipidemia E78.5 [place] [address] [address] March, Anxiety F41.9 and Chronic pa in syndrome G89.4 [place] [address] [address] Feb, Anxiety F41.9 and Chronic pa in syndrome G89.4 [place] [address] [address] Jan, B12 deficiency E53.8 [place] [address] [address] Jan, [place] [address] [address] Jan, Anxiety F41.9 ; Chronic pain syndrome G89.4 and Essential hypertension I10 [place] [address] [address] Jan, CKD (chronic kidney disease) stage 3, [...] Subacromial bursitis of right shoulder joint M75.51 [place] [address] [address] Dec, Essential hypertension I10 [place] [address] [address] 15 Dec, 2017 Chronic pain syndrome G89.4 [place] [address] [address] Dec, Chronic pain syndrome G89.4 [facility] [address] [facility] [id number] [address] [place] [address] Nov, [facility] [address] [place] [id number] [address] [place] [address] Nov, Chronic pain syndrome G89.4 and Anxiety F41.9 [facility] [address] [address] Oct, Chronic pain syndrome G89.4 ; Other constipation K59.09 and Chronic prescription opiate use Z79.899 [place] [address] [address] Oct, Chronic pain syndrome G89.4 and Anxiety F41.9 [place] [address] [address] Sep, Essential hypertension I10 [place] [address] [address] 16 Sep, 2017 Chronic pain syndrome G89.4 and Anxiety F41.9 [place] [address] [address] Aug, Chronic pain syndrome G89.4 and Anxiety F41.9 [place] [address] [place] [id number] [address] [place] [address] 28 Jul, 2017 Essential hypertension I10 [place] [address] [place] [id number] [address] [place] [address] 22 Jul, 2017 Chronic obstructive pulmonar y disease, unspecified COPD type J44.9 [place] [address] [place] [id number] [place] [address] 21 Jul, 2017 Chronic pain syndrome G89.4 and Anxiety F41.9 [place] [address] [place] [id number] [address] [place] [address] 13 Jul, 2017 Chronic pain syndrome G89.4 ; Essential hypertension I10 ; Fibromyalgia M79.7 ; CKD (chronic kidney disease) stage 3, GFR 30-59 ml/min N18.3 ; Subacromial bursitis, right M75.51 and Goals of care, co unseling/discussion Z71.89 [facility] [address] [facility] [id number] [address] [place] [address] Jun, Chronic pain syndrome G89.4 and Anxiety F41.9 [facility] [address] [facility] [id number] [address] [place] [address] May, Chronic pain syndrome G89.4 and Anxiety F41.9 [facility] [address] [facility] [id number] [address] [place] [address] Apr, Chronic pain syndrome G89.4 and Anxiety F41.9 [place] [address] [facility] [id number] [address] [place] [address] Apr, Drug induced constipation K5 9.03 ; Chronic pain syndrome G89.4 and CKD (chronic kidney disease) stage 3, GFR 30-59 ml/min N18.3 [facility] [address] [id number] [address] [place] [address] Apr, Chronic pain syndrome G89.4 and Anxiety F41.9 [place] [address] [facility] [id number] [address] [place] [address] March, Chronic pain syndrome G89.4 and Anxiety F41.9 [place] [address] [facility] [id number] [address] [place] [address] March, Decreased GFR R94.4 [facility] [address] [id number] [address] [place] [address] Feb, [place] [address] [facility] [id number] [address] [place] [address] Feb, Chronic pain syndrome G89.4 and Anxiety F41.9 [facility] [address] [facility] [id number] [address] [place] [address] Jan, Decreased GFR R94.4 [place] [address] [address] Jan, Decreased GFR R94.4 [place] [address] [address] Jan, Allergic rhinitis J30.9 ; Es sential hypertension I10 ; Major depressive disorder, recurrent episode, unspecified severity F33.9 and Primary insomnia F51.01 [place] [address] [address] Jan, Acute right-sided thoracic b ack pain M54.6 ; Subacromial bursitis of right shoulder joint M75.51 ; Chronic pain syndrome G89.4 and Anxiety F41.9 [place] [address] [address] Jan, Decreased GFR R94.4 [place] [address] [address] Dec, Decreased GFR R94.4 [place] [address] [address] Dec, Decreased GFR R94.4 [place] [address] [address] Dec, Decreased GFR R94.4 [place] [address] [address] Dec, Decreased GFR R94.4 [place] [address] [address] Dec, Anxiety F41.9 and Bilateral low back pain, with sciatica presence unspecified M54.5 [place] [address] [address] 03 Dec, 2016 Thrombocytosis D47.3 ; Hyper lipidemia, unspecified hyperlipidemia E78.5 ; Need for hepatitis C screening test Z11.59 and B12 deficiency E53.8 [place] [address] [address] 13 Nov, 2016 Need for hepatitis C screeni ng test Z11.59 [place] [address] [address] Nov, Anxiety F41.9 and Bilateral low back pain, with sciatica presence unspecified M54.5 [place] [address] [address] Oct, Bilateral low back pain, wit h sciatica presence unspecified M54.5 ; Chronic prescription opiate use Z79.899 ; Anxiety F41.9 ; Essential hypertension I10 ; Hyperlipidemia, unspecified hyperlipidemia E78.5 ; Health care maintenance Z00.00 and Thrombocytosis D47.3 [place] [address] [address] Sep, [address] [address] Sep, [place] [address] [address] Aug, [place] [address] [address] Jul, B12 deficiency E53.8 [place] [address] [address] Jul, [place] [address] [address] Jul, Essential hypertension I10 ; Chronic pain syndrome G89.4 ; Anxiety F41.9 ; Screening for breast cancer Z12.39 ; Atherosclerosis of [place] coronary artery of [place] heart without angina pectoris I25.10 ; Major depressive disorder, recurrent episode, unspecified severity F33.9 ; Primary insomnia F51.01 and Allergic rhinitis J30.9 [facility] [address] [place] [id number] [address] [place] [address] Jun, [facility] [address] [place] [address] Jun, Leg wound, right, initial en counter S81.801A and Encounter for immunization Z23 [place] [address] [place] [id number] [place] [address] Jun, Open wound of right ear, uns pecified open wound type, initial encounter S01.301A [place] [address] [place] [address] May, B12 deficiency E53.8 [place] [address] [place] [id number] [place] [address] May, [place] [address] [address] May, [place] [address] [address] May, Chronic pain syndrome G89.4 ; Chronic prescription opiate use Z79.899 ; Allergic rhinitis J30.9 ; Essential hypertension I10 and Non-healing skin lesion L98.9 [place] [address] [address] Apr, [place] [address] [address] March, [place] [address] [place] [id number] [address] [place] [address] Feb, [place] [address] [place] [address] Feb, [place] [address] [address] Feb, Chronic pain syndrome G89.4 ; Anxiety F41.9 ; B12 deficiency E53.8 ; Allergic rhinitis J30.9 ; Fibromyalgia M79.7 ; Actinic keratosis L57.0 ; Skin rash R21 ; Open wound of right ear, unspecified open wound type, initial encounter S01.301A ; Subacromial bursitis, right M75.51 ; GERD (gastroesophageal reflux disease) K21.9 and Chronic obstructive pulmonary disease, unspecified COPD type J44.9 [facility] [address] [facility] [id number] [address] [place] [address] 30 Jan, 2016 [facility] [address] [facility] [id number] [address] [place] [address] Jan, Essential hypertension I10 [facility] [address] [facility] [id number] [address] [place] [address] Jan, [facility] [address] [facility] [id number] [address] [place] [address] Jan, [facility] [address] [facility] [id number] [place] [address] Jan, [facility] [address] [place] [id number] [place] [address] Dec, [facility] [address] [facility] [id number] [address] [place] [address] Dec, Essential hypertension I10 [facility] [address] [facility] [id number] [address] [place] [address] Dec, [facility] [address] [place] [id number] [place] [address] Dec, B12 deficiency E53.8 and Ess ential hypertension I10 [facility] [address] [facility] [id number] [address] [place] [address] Dec, [facility] [address] [facility] [id number] [address] [place] [address] Nov, Right shoulder pain M25.511 [facility] [address] [facility] [id number] [address] [place] [address] Nov, Right shoulder pain M25.511 [facility] [address] [facility] [id number] [address] [place] [address] Nov, Essential hypertension I10 a nd B12 deficiency E53.8 [facility] [address] [place] [id number] [address] [place] [address] 14 Nov, 2015 Major depressive disorder, r ecurrent episode, unspecified severity F33.9 ; Anxiety F41.9 ; Chronic pain syndrome G89.4 ; Essential hypertension I10 ; Hyperlipidemia, unspecified hyperlipidemia E78.5 ; Chronic prescription opiate use Z79.899 ; Allergic rhinitis J30.9 ; B12 deficiency E53.8 and Right shoulder pain M25.511 [facility] [address] [place] [id number] [address] [place] [address] 17 Oct, 2015 [facility] [address] [place] [id number] [address] [place] [address] Oct, [facility] [address] [place] [id number] [place] [address] Sep, [facility] [address] [address] Sep, [facility] [address] [place] [id number] [place] [address] Aug, [facility] [address] [place] [id number] [address] [place] [address] Aug, [facility] [address] [place] [id number] [place] [address] Aug, [facility] [address] [place] [id number] [place] [address] Aug, Other constipation K59.09 ; Hyperlipidemia, unspecified hyperlipidemia E78.5 ; Essential hypertension I10 ; Primary insomnia F51.01 ; Anxiety F41.9 ; Chronic pain syndrome G89.4 ; Right shoulder pain M25.511 and Acute cystitis without hematuria N30.00 [facility] [address] [place] [id number] [address] [place] [address] 16 Jul, 2015 [facility] [address] [place] [id number] [address] [place] [address] Jul, [facility] [address] [address] Jun, [facility] [address] [id number] [address] [place] [address] Jun, [facility] [address] [id number] [address] [place] [address] Jun, [facility] [address] [id number] [address] [place] [address] May, [facility] [address] [id number] [address] [place] [address] May, Other chronic pain 338.29 ; Hypertension 401.9 and Constipation due to opioid therapy 564.09 [facility] [address] [id number] [address] [place] [address] 17 May, 2015 [facility] [address] [id number] [address] [place] [address] May, [facility] [address] [id number] [address] [place] [address] Apr, [facility] [address] [id number] [address] [place] [address] Apr, Unspecified essential hypert ension 401.9 [facility] [address] [id number] [address] [place] [address] 16 Apr, 2015 [facility] [address] [id number] [address] [place] [address] Apr, [facility] [address] [id number] [address] [place] [address] Apr, [facility] [address] [id number] [address] [place] [address] Apr, [facility] [address] [id number] [address] [place] [address] 15 Apr, 2015 [facility] [address] [id number] [address] [place] [address] Apr, [facility] [address] [id number] [address] [place] [id number] March, Unspecified essential hypert ension 401.9 [facility] [address] [id number] [address] [place] [address], [place] [address] March, [facility] [address] [id number] [address] [place] [id number] March, [facility] [address] [id number] [place] [address], [place] [address] Feb, [facility] [address] [id number] [place] [address], [place] [id number] Feb, [facility] [address] [id number] [address] [place] [id number] Jan, [facility] [address] [id number] [address] [place] [id number] Jan, [facility] [address] [id number] [address] [place] [id number] Jan, [facility] [address] [id number] [address] [place] [address], [place] [address] Jan, [facility] [address] [address] [id number] [address] [place] [address] Jan, [facility] [address] [id number] [address] [place] [address] Jan, [facility] [address] [id number] [address] [place] [address] Jan, [facility] [address] [id number] [address] [place] [address] Dec, [facility] [address] [id number] [address] [place] [address] Dec, [facility] [address] [id number] [address] [place] [address] Dec, [facility] [address] [id number] [address] [place] [address] [place] [address] 16 Nov, 2014 [facility] [address] [id number] [address] [place] [address], [place] [address] Nov, [facility] [address] [id number] [address] [place] [address], [place] [address] Oct, [facility] [address] [id number] [address] [place] [address], [place] [address] Oct, [facility] [address] [id number] [address] [place] [address], [place] [address] Oct, [facility] [address] [id number] [address] [place] [address], [place] [address] Oct, [facility] [address] [id number] [address] [place] [address], [place] [address] Oct, [facility] [address] [id number] [address] [place] [address], [place] [address] Oct, [facility] [address] [id number] [address] [place] [address], [place] [address] Oct, [facility] [address] [id number] [address] [place] [address], [place] [address] Oct, [facility] [address] [id number] [address] [place] [address], [place] [address] Sep, [facility] [address] [id number] [address] [place] [address], [place] [address] Sep, [facility] [place] [address] [id number] [address] [place] [address], [place] [address] Sep, [facility] [address] [id number] [address] [place] [address], [place] [address] Sep, [facility] [address] [id number] [address] [place] [address], [place] [address] Sep, [facility] [address] [id number] [address] [place] [address], [place] [address] Sep, [facility] [place] [facility] [address] [id number] [address] [place] [address], [place] [address] Aug, [facility] [place] [facility] [address] [id number] [address] [place] [address], [place] [address] Aug, [facility] [place] [facility] [address] [id number] [address] [place] [address], [place] [address] Aug, [facility] [place] [facility] [address] [id number] [address] [place] [address], [place] [address] Aug, [facility] [place] [facility] [address] [id number] [address] [place] [address], [place] [address] Aug, [facility] [place] [facility] [address] [id number] [address] [place] [address], [place] [address] Aug, [facility] [place] [facility] [address] [id number] [address] [place] [address], [place] [address] Aug, [facility] [place] [facility] [address] [id number] [address] [place] [address], [place] [address] Aug, [facility] [place] [facility] [address] [id number] [address] [place] [address], [place] [address] Aug, [facility] [place] [facility] [address] [id number] [address] [place] [address], [place] [address] Aug, [facility] [place] [facility] [address] [id number] [address] [place] [address], [place] [address] Jul, [facility] [place] [facility] [address] [id number] [address] [place] [address], [place] [address] 22 Jul, 2013 [facility] [place] [facility] [address] [id number] [address] [place] [address], [place] [address] 12 Jul, 2014 [facility] [place] [facility] [address] [id number] [address] [place] [address], [place] [address] 12 Jul, 2013 [facility] [place] [facility] [address] [id number] [address] [place] [address], [place] [address] 10 Jul, 2014 [facility] [place] [facility] [address] [id number] [address] [place] [address], [place] [address] Jul, [facility] [address] [id number] [facility] [place] [address] Jun, [facility] [place] [facility] [address] [id number] [address] [place] [address], [place] [address] Jun, [facility] [place] [facility] [address] [id number] [facility] [address] Jun, [facility] [place] [facility] [address] [id number] [address] [place] [address], [place] [address] Jun, [facility] [place] [facility] [address] [id number] [address] [place] [address], [place] [address] Jun, [facility] [place] [facility] [address] [id number] [address] [place] [address], [place] [address] Jun, [facility] [place] [facility] [address] [id number] [address] [place] [address], [place] [address] May, [facility] [place] [facility] [address] [id number] [address] [place] [address], [place] [address] May, [facility] [place] [facility] [address] [id number] [address] [place] [address], [place] [address] May, [facility] [place] [facility] [address] [id number] [address] [place] [address], [place] [address] May, [facility] [place] [facility] [address] [id number] [address] [place] [address], [place] [address] May, [facility] [place] [facility] [address] [id number] [address] [place] [address], [place] [address] Apr, [facility] [place] [facility] [address] [id number] [address] [place] [address], [place] [address] Apr, [facility] [place] [facility] [address] [id number] [address] [place] [address], [place] [address] Apr, [facility] [place] [facility] [address] [id number] [address] [place] [address], [place] [address] Apr, [facility] [place] [facility] [address] [id number] [address] [place] [address] March, [facility] [address] [id number] [address] [place] [address], [place] [address] March, [facility] [address] [id number] [address] [place] [address], [place] [address] March, [facility] [address] [id number] [address] [place] [address], [place] [address] March, [facility] [address] [id number] [address] [place] [address], [place] [address] March, [facility] [address] [id number] [address] [place] [address], [place] [address] March, [facility] [address] [id number] [address] [place] [address], [place] [address] Feb, [facility] [address] [id number] [address] [place] [address], [place] [address] Feb, [facility] [address] [id number] [address] [place] [address], [place] [address] Feb, [facility] [address] [id number] [address] [place] [address], [place] [address] Feb, [facility] [address] [id number] [address] [place] [address], [place] [address] Feb, [facility] [address] [id number] [address] [place] [address], [place] [address] Feb, [facility] [address] [id number] [address] [place] [address], [place] [address] Feb, [facility] [address] [id number] [address] [place] [address], [place] [address] Feb, [facility] [address] [id number] [address] [place] [address], [place] [address] Jan, [facility] [address] [id number] [address] [place] [address], [place] [address] Jan, [facility] [address] [id number] [facility] [address] Jan, [facility] [address] [id number] [address] [place] [address], [place] [address] Jan, [facility] [address] [id number] [address] [place] [address], [place] [address] Jan, [facility] [address] [id number] [address] [place] [address], [place] [address] Jan, [facility] [address] [id number] [address] [place] [address], [place] [address] Dec, [facility] [address] [id number] [address] [place] [address], [place] [address] Dec, [facility] [address] [id number] [address] [place] [address], [place] [address] Nov, [facility] [address] [id number] [address] [place] [address], [place] [address] Nov, [facility] [address] [id number] [address] [place] [address], [place] [address] Nov, [facility] [address] [id number] [address] [place] [address], [place] [address] Nov, [facility] [address] [id number] [address] [place] [address], [place] [address] Nov, [facility] [address] [id number] [address] [place] [address], [place] [address] Nov, [facility] [address] [id number] [address] [place] [address], [place] [address] Nov, [facility] [address] [id number] [address] [place] [address], [place] [address] Nov, [facility] [address] [id number] [address] [place] [address], [place] [address] Nov, [facility] [address] [id number] [address] [place] [address], [place] [address] Nov, [facility] [address] [id number] [address] [place] [address], [place] [address] Nov, [facility] [address] [id number] [address] [place] [address], [place] [address] Nov, [facility] [address] [id number] [address] [place] [address], [place] [address] Nov, [facility] [address] [id number] [address] [place] [address], [place] [address] Nov, [facility] [address] [id number] [address] [place] [address], [place] [address] Nov, [facility] [address] [id number] [address] [place] [address], [place] [address] Oct, [facility] [address] [id number] [address] [place] [address], [place] [address] Oct, [facility] [address] [id number] [address] [place] [address], [place] [address] Oct, [facility] [address] [id number] [address] [place] [address], [place] [address] Oct, [facility] [address] [id number] [address] [place] [address], [place] [address] Oct, [facility] [address] [id number] [address] [place] [address], [place] [address] Oct, [facility] [address] [id number] [address] [place] [address], [place] [address] Oct, [facility] [address] [id number] [address] [place] [address], [place] [address] Oct, [facility] [address] [id number] [address] [place] [address], [place] [address] Oct, [facility] [address] [id number] [address] [place] [address], [place] [address] Aug, [facility] [address] [id number] [address] [place] [address] 29 Aug, 2013 IMMUNIZATIONS No Known Immunizations SOCIAL HISTORY Never Assessed REASON FOR VISIT PLAN OF CARE VITAL SIGNS MEDICATIONS Unknown Medications RESULTS No Results PROCEDURES Procedure Date Ordered Result Body Site PSYCH DIAGNOSTIC EVALUATION Nov 27, 2013 INSTRUCTIONS MEDICATIONS ADMINISTERED No Known Medications MEDICAL (GENERAL) HISTORY Type Description Date Medical History hypertension Medical History asthma Medical History Arthritis Medical History Hypoglycemia Medical History Heart Cath 11/05/2013 Medical History herniated disc--Seen by Dr. Troy Michelle pain specialist in [place], [place] Medical History Chronic low back pain [...]
--- OUTSIDE RECORDS SUMMARY | 2020-06-19 02:26 | XMS REPORT ---
Author Author ARMANDO Mahsa ASHVIN Organization [facility] Address [address] [place] [address] Care Team Providers Care Palm Gatherer Name Role Phone ARMANDONYASIA DIAZY Unavailable PROBLEMS Type Condition ICD9-CM Code HIK79-OV Code Onset Dates Condition S tatus SNOMED Code Problem Chronic pain syndrome G89.4 Active 263256824 Problem Other constipation K59.09 Active 1 [id number] Problem Anxiety F41.9 Active 20529798 Problem Primary insomnia F51.01 Active 193 335735 Problem Atherosclerosis of [place] co ronary artery of [place] heart without angina pectoris I25.10 Active 5542613712729 Problem Essential hypertension I10 Active 52608734 Problem Hyperlipidemia, unspecified hyperlipidemia E78.5 Active 93169289 Problem Major depressive disorder, recurrent episode, un specified severity F33.9 Active 77634218 Problem Allergic rhinitis J30.9 Active 61 556998 Problem Fibromyalgia M79.7 Active 5536944 7 Problem GERD (gastroesophageal reflux disease) K21.9 Active 515911110 Problem Degenerative disc disease, thoracic M51.34 Active 11681299 Problem Bilateral low back pain, with sciatica presence unspecifie d M54.5 Active 435924417 Problem Moderate episode of recurrent major depressive disorder F33.1 Active 027551325 Problem B12 deficiency E53.8 Active 38918 4004 Problem Chronic obstructive pulmonary disease, unspecified COPD ty pe J44.9 Active 70238383 Problem CKD (chronic kidney disease) stage 3, GFR 30-59 ml/min N18.3 Active 467590598 Problem Cannabis abuse F12.10 Active 09977 009 Problem Degenerative disc disease, cervical M50.30 Active 52872489 ALLERGIES No Information ENCOUNTERS Encounter Location Date Diagnosis [facility] [address] [facility] [id number] [address] [place] [id number] Jan, [facility] [address] [facility] [id number] [address] [place] [id number] Nov, [facility] [address] [facility] [id number] [address] [place] [phone] Oct, Moderate episode of recurren t major depressive disorder F33.1 ; Chronic obstructive pulmonary disease, unspecified COPD type J44.9 ; CKD (chronic kidney disease) stage 3, GFR 30-59 ml/min N18.3 ; Essential hypertension I10 and Possible exposure to STD Z20.2 [facility] [address] [facility] [id number] [address] [place] [id number] Oct, Essential hypertension I10 [facility] [address] [facility] [id number] [address] [place] [id number] Oct, [facility] [address] [facility] [id number] [address] [place] [phone] Sep, Essential hypertension I10 [facility] [address] [facility] [id number] [address] [place] [phone] Sep, [facility] [address] [facility] [id number] [address] [place] [phone] Sep, [facility] [address] [facility] [id number] [address] [place] [id number] Sep, [facility] [address] [facility] [id number] [address] [place] [id number] Aug, Essential hypertension I10 [facility] [address] [facility] [id number] [address] [place] [id number] Aug, Essential hypertension I10 [facility] [address] [facility] [id number] [address] [place] [id number] Jul, Allergic rhinitis J30.9 ; CK D (chronic kidney disease) stage 3, GFR 30-59 ml/min N18.3 ; Essential hypertension I10 and Moderate episode of recurrent major depressive disorder F33.1 [facility] [address] [facility] [id number] [address] [place] [id number] Jul, Elevated platelet count R79. 89 ; B12 deficiency E53.8 ; Hyperlipidemia, unspecified hyperlipidemia E78.5 and CKD (chronic kidney disease) stage 3, GFR 30-59 ml/min N18.3 [place] [address] [facility] [id number] [address] [place] [id number] 04 Apr, 2019 B12 deficiency E53.8 [place] [address] [facility] [id number] [address] [place] [id number] Jan, Periumbilical hernia K42.9 ; CKD (chronic kidney disease) stage 3, GFR 30-59 ml/min N18.3 ; Essential hypertension I10 ; GERD (gastroesophageal reflux disease) K21.9 ; Hyperlipidemia, unspecified hyperlipidemia E78.5 and Major depressive disorder, recurrent episode, unspecified severity F33.9 [place] [address] [place] [id number] [address] [place] [id number] 12 Dec, 2018 Anxiety F41.9 [place] [address] [place] [id number] [address] [place] [id number] 17 Nov, 2018 Elevated platelet count R79. 89 [place] [address] [place] [id number] [address] [place] [id number] Nov, [place] [address] [place] [id number] [address] [place] [id number] Nov, Elevated platelet count R79. 89 [place] [address] [place] [id number] [address] [place] [id number] Nov, Anxiety F41.9 [place] [address] [place] [id number] [address] [place] [id number] Nov, Bilateral low back pain, wit h sciatica presence unspecified M54.5 ; Cervicalgia M54.2 ; Degenerative disc disease, cervical M50.30 and Degenerative disc disease, thoracic M51.34 [place] [address] [place] [id number] [address] [place] [id number] 07 Nov, 2018 Chronic pain syndrome G89.4 and Bilateral low back pain, with sciatica presence unspecified M54.5 [place] [address] [address] Oct, Umbilical hernia without obs truction and without gangrene K42.9 [place] [address] [address] Oct, Chronic pain syndrome G89.4 [place] [address] [address] Oct, Chronic pain syndrome G89.4 and Anxiety F41.9 [place] [address] [address] Oct, Elevated platelet count R79. 89 [place] [address] [address] 10 Oct, 2018 CKD (chronic kidney disease) stage 3, GFR 30-59 ml/min N18.3 ; Other chest pain R07.89 ; Acute midline thoracic back pain M54.6 ; Essential hypertension I10 and History of osteoporosis Z87.39 [place] [address] [address] Sep, Chronic pain syndrome G89.4 [place] [address] [address] 16 Sep, 2018 [place] [address] [address] 15 Sep, 2018 Anxiety F41.9 and Chronic pa in syndrome G89.4 [place] [address] [address] 18 Aug, 2018 Chronic pain syndrome G89.4 and Anxiety F41.9 [place] [address] [address] 04 Aug, 2018 [place] [address] [address] 03 Aug, 2018 Cannabis abuse F12.10 and Co ntrolled substance agreement terminated Z91.14 [place] [address] [address] Jul, Chronic pain syndrome G89.4 ; Bilateral low back pain, with sciatica presence unspecified M54.5 ; Chronic prescription opiate use Z79.899 ; Essential hypertension I10 ; Hyperlipidemia, unspecified hyperlipidemia E78.5 ; CKD (chronic kidney disease) stage 3, GFR 30-59 ml/min N18.3 and Allergic rhinitis J30.9 [place] [address] [place] [id number] [address] [place] [id number] Jul, Chronic pain syndrome G89.4 and Anxiety F41.9 [place] [address] [place] [id number] [address] [place] [id number] Jul, Screening for breast cancer Z12.31 and Major depressive disorder, recurrent episode, unspecified severity F33.9 [place] [address] [place] [id number] [address] [place] [id number] Jun, Chronic pain syndrome G89.4 and Anxiety F41.9 [place] [address] [place] [id number] [address] [place] [id number] May, Chronic pain syndrome G89.4 and Anxiety F41.9 [place] [address] [place] [id number] [address] [place] [address] Apr, Anxiety F41.9 [place] [address] [place] [id number] [address] [place] [address] Apr, Chronic prescription opiate use Z79.899 ; Chronic pain syndrome G89.4 ; Essential hypertension I10 ; Allergic rhinitis J30.9 and CKD (chronic kidney disease) stage 3, GFR 30-59 ml/min N18.3 [place] [address] [facility] [id number] [address] [place] [id number] Apr, [place] [address] [place] [id number] [address] [place] [address] March, Anxiety F41.9 and Chronic pa in syndrome G89.4 [place] [address] [place] [id number] [address] [place] [id number] March, CKD (chronic kidney disease) stage 3, GFR 30-59 ml/min N18.3 ; B12 deficiency E53.8 and Hyperlipidemia, unspecified hyperlipidemia E78.5 [place] [address] [place] [id number] [address] [place] [address] March, Anxiety F41.9 and Chronic pa in syndrome G89.4 [place] [address] [address] Feb, Anxiety F41.9 and Chronic pa in syndrome G89.4 [place] [address] [place] [address] Jan, B12 deficiency E53.8 [place] [address] [place] [id number] [place] [address] Jan, [place] [address] [address] Jan, Anxiety F41.9 ; Chronic pain syndrome G89.4 and Essential hypertension I10 [place] [address] [place] [id number] [address] [place] [id number] Jan, CKD (chronic kidney disease) stage 3, [...] Subacromial bursitis of right shoulder joint M75.51 [place] [address] [address] Dec, Essential hypertension I10 [place] [address] [place] [id number] [address] [place] [address] 15 Dec, 2017 Chronic pain syndrome G89.4 [place] [address] [address] Dec, Chronic pain syndrome G89.4 [place] [address] [facility] [id number] [address] [place] [id number] Nov, [facility] [address] [facility] [id number] [address] [place] [address] Nov, Chronic pain syndrome G89.4 and Anxiety F41.9 [place] [address] [place] [id number] [address] [place] [address] Oct, Chronic pain syndrome G89.4 ; Other constipation K59.09 and Chronic prescription opiate use Z79.899 [place] [address] [address] Oct, Chronic pain syndrome G89.4 and Anxiety F41.9 [place] [address] [address] Sep, Essential hypertension I10 [place] [address] [address] 16 Sep, 2017 Chronic pain syndrome G89.4 and Anxiety F41.9 [place] [address] [address] Aug, Chronic pain syndrome G89.4 and Anxiety F41.9 [place] [address] [place] [address] 28 Jul, 2017 Essential hypertension I10 [place] [address] [place] [id number] [address] [place] [address] 22 Jul, 2017 Chronic obstructive pulmonar y disease, unspecified COPD type J44.9 [place] [address] [place] [id number] [address] [place] [address] 21 Jul, 2017 Chronic pain syndrome G89.4 and Anxiety F41.9 [place] [address] [place] [id number] [address] [place] [address] 13 Jul, 2017 Chronic pain syndrome G89.4 ; Essential hypertension I10 ; Fibromyalgia M79.7 ; CKD (chronic kidney disease) stage 3, GFR 30-59 ml/min N18.3 ; Subacromial bursitis, right M75.51 and Goals of care, co unseling/discussion Z71.89 [facility] [address] [id number] [address] [place] [id number] Jun, Chronic pain syndrome G89.4 and Anxiety F41.9 [facility] [address] [id number] [address] [place] [address] May, Chronic pain syndrome G89.4 and Anxiety F41.9 [facility] [address] [id number] [address] [place] [address] Apr, Chronic pain syndrome G89.4 and Anxiety F41.9 [facility] [address] [facility] [id number] [address] [place] [address] Apr, Drug induced constipation K5 9.03 ; Chronic pain syndrome G89.4 and CKD (chronic kidney disease) stage 3, GFR 30-59 ml/min N18.3 [facility] [address] [id number] [address] [place] [address] Apr, Chronic pain syndrome G89.4 and Anxiety F41.9 [facility] [address] [facility] [id number] [address] [place] [id number] March, Chronic pain syndrome G89.4 and Anxiety F41.9 [facility] [address] [id number] [address] [place] [address] March, Decreased GFR R94.4 [facility] [address] [id number] [address] [place] [address] Feb, [facility] [address] [id number] [address] [place] [address] Feb, Chronic pain syndrome G89.4 and Anxiety F41.9 [facility] [address] [id number] [address] [place] [address] Jan, Decreased GFR R94.4 [place] [address] [place] [id number] [address] [place] [address] Jan, Decreased GFR R94.4 [place] [address] [address] Jan, Allergic rhinitis J30.9 ; Es sential hypertension I10 ; Major depressive disorder, recurrent episode, unspecified severity F33.9 and Primary insomnia F51.01 [place] [address] [address] Jan, Acute right-sided thoracic b ack pain M54.6 ; Subacromial bursitis of right shoulder joint M75.51 ; Chronic pain syndrome G89.4 and Anxiety F41.9 [place] [address] [address] Jan, Decreased GFR R94.4 [place] [address] [address] Dec, Decreased GFR R94.4 [place] [address] [address] Dec, Decreased GFR R94.4 [place] [address] [place] [id number] [place] [address] Dec, Decreased GFR R94.4 [place] [address] [address] Dec, Decreased GFR R94.4 [place] [address] [place] [id number] [place] [address] Dec, Anxiety F41.9 and Bilateral low back pain, with sciatica presence unspecified M54.5 [place] [address] [address] Dec, Thrombocytosis D47.3 ; Hyper lipidemia, unspecified hyperlipidemia E78.5 ; Need for hepatitis C screening test Z11.59 and B12 deficiency E53.8 [place] [address] [address] 13 Nov, 2016 Need for hepatitis C screeni ng test Z11.59 [place] [address] [address] Nov, Anxiety F41.9 and Bilateral low back pain, with sciatica presence unspecified M54.5 [place] [address] [address] Oct, Bilateral low back pain, wit h sciatica presence unspecified M54.5 ; Chronic prescription opiate use Z79.899 ; Anxiety F41.9 ; Essential hypertension I10 ; Hyperlipidemia, unspecified hyperlipidemia E78.5 ; Health care maintenance Z00.00 and Thrombocytosis D47.3 [place] [address] [address] Sep, [place] [address] [address] Sep, [place] [address] [address] Aug, [place] [address] [address] Jul, B12 deficiency E53.8 [place] [address] [address] Jul, [place] [address] [address] Jul, Essential hypertension I10 ; Chronic pain syndrome G89.4 ; Anxiety F41.9 ; Screening for breast cancer Z12.39 ; Atherosclerosis of [place] coronary artery of [place] heart without angina pectoris I25.10 ; Major depressive disorder, recurrent episode, unspecified severity F33.9 ; Primary insomnia F51.01 and Allergic rhinitis J30.9 [facility] [address] [place] [id number] [address] [place] [address] Jun, [facility] [address] [place] [address] [place] [address] Jun, Leg wound, right, initial en counter S81.801A and Encounter for immunization Z23 [facility] [address] [facility] [id number] [address] [place] [address] Jun, Open wound of right ear, uns pecified open wound type, initial encounter S01.301A [facility] [address] [facility] [id number] [address] [place] [address] May, B12 deficiency E53.8 [facility] [address] [facility] [id number] [address] [place] [address] May, [facility] [address] [facility] [id number] [address] [place] [address] May, [facility] [address] [facility] [id number] [address] [place] [address] May, Chronic pain syndrome G89.4 ; Chronic prescription opiate use Z79.899 ; Allergic rhinitis J30.9 ; Essential hypertension I10 and Non-healing skin lesion L98.9 [facility] [address] [facility] [id number] [address] [place] [address] Apr, [facility] [address] [facility] [id number] [address] [place] [address] March, [facility] [address] [facility] [id number] [address] [place] [address] Feb, [facility] [address] [facility] [id number] [address] [place] [address] Feb, [facility] [address] [facility] [id number] [address] [place] [address] Feb, Chronic pain syndrome G89.4 ; Anxiety F41.9 ; B12 deficiency E53.8 ; Allergic rhinitis J30.9 ; Fibromyalgia M79.7 ; Actinic keratosis L57.0 ; Skin rash R21 ; Open wound of right ear, unspecified open wound type, initial encounter S01.301A ; Subacromial bursitis, right M75.51 ; GERD (gastroesophageal reflux disease) K21.9 and Chronic obstructive pulmonary disease, unspecified COPD type J44.9 [facility] [address] [facility] [id number] [address] [place] [address] 30 Jan, 2016 [facility] [address] [facility] [id number] [address] [place] [address] 11 Jan, 2016 Essential hypertension I10 [facility] [address] [facility] [id number] [address] [place] [id number] Jan, [facility] [address] [facility] [id number] [address] [place] [address] Jan, [facility] [address] [facility] [id number] [address] [place] [address] Jan, [facility] [address] [facility] [id number] [address] [place] [phone] Dec, [facility] [address] [facility] [id number] [address] [place] [address] Dec, Essential hypertension I10 [facility] [address] [facility] [id number] [address] [place] [phone] Dec, [facility] [address] [facility] [id number] [address] [place] [address] Dec, B12 deficiency E53.8 and Ess ential hypertension I10 [facility] [address] [facility] [id number] [address] [place] [id number] Dec, [facility] [address] [facility] [id number] [address] [place] [address] Nov, Right shoulder pain M25.511 [facility] [address] [facility] [id number] [address] [place] [address] Nov, Right shoulder pain M25.511 [facility] [address] [facility] [id number] [address] [place] [address] Nov, Essential hypertension I10 a nd B12 deficiency E53.8 [place] [id number] [facility] [id number] [address] [place] [address] 14 Nov, 2015 Major depressive disorder, r ecurrent episode, unspecified severity F33.9 ; Anxiety F41.9 ; Chronic pain syndrome G89.4 ; Essential hypertension I10 ; Hyperlipidemia, unspecified hyperlipidemia E78.5 ; Chronic prescription opiate use Z79.899 ; Allergic rhinitis J30.9 ; B12 deficiency E53.8 and Right shoulder pain M25.511 [facility] [address] [facility] [id number] [address] [place] [address] Oct, [facility] [address] [facility] [id number] [address] [place] [id number] Oct, [facility] [address] [place] [id number] [place] [address] Sep, [facility] [address] [place] [id number] [place] [phone] Sep, [facility] [address] [place] [id number] [address] [place] [id number] Aug, [facility] [id number] [address] [place] [phone] Aug, [facility] [id number] [address] [place] [id number] Aug, [facility] [address] [id number] [address] [place] [id number] Aug, Other constipation K59.09 ; Hyperlipidemia, unspecified hyperlipidemia E78.5 ; Essential hypertension I10 ; Primary insomnia F51.01 ; Anxiety F41.9 ; Chronic pain syndrome G89.4 ; Right shoulder pain M25.511 and Acute cystitis without hematuria N30.00 [facility] [id number] [address] [place] [id number] 16 Jul, 2015 [facility] [id number] [address] [place] [phone] Jul, [facility] [id number] [address] [place] [phone] 15 Jun, 2015 [facility] [address] [id number] [address] [place] [phone] Jun, [facility] [address] [id number] [address] [place] [phone] Jun, [facility] [address] [id number] [address] [place] [phone] May, [facility] [address] [id number] [address] [place] [id number] May, Other chronic pain 338.29 ; Hypertension 401.9 and Constipation due to opioid therapy 564.09 [facility] [address] [id number] [address] [place] [phone] 17 May, 2015 [facility] [address] [id number] [address] [place] [phone] May, [facility] [address] [id number] [address] [place] [id number] 17 Apr, 2015 [facility] [address] [id number] [address] [place] [id number] 17 Apr, 2015 Unspecified essential hypert ension 401.9 [facility] [address] [id number] [address] [place] [phone] 16 Apr, 2015 [facility] [address] [id number] [address] [place] [phone] 16 Apr, 2015 [facility] [address] [id number] [address] [place] [address] [id number] 16 Apr, 2015 [facility] [address] [id number] [address] [place] [id number] Apr, [facility] [address] [id number] [address] [place] [id number] 15 Apr, 2015 [facility] [address] [facility] [id number] [address] [place] [id number] 12 Apr, 2015 [facility] [address] [id number] [address] [place] [id number] March, Unspecified essential hypert ension 401.9 [facility] [address] [id number] [address] [place] [address], [place] [address] March, [facility] [address] [id number] [address] [place] [address], [place] [address] March, [facility] [address] [id number] [address] [place] [id number] Feb, [facility] [address] [id number] [address] [place] [address], [place] [address] Feb, [facility] [address] [id number] [address] [place] [phone] Jan, [facility] [address] [id number] [address] [place] [id number] Jan, [facility] [address] [id number] [address] [place] [id number] Jan, [facility] [address] [id number] [address] [place] [address], [place] [address] Jan, [facility] [address] [id number] [address] [place] [id number] Jan, [facility] [address] [id number] [address] [place] [id number] Jan, [facility] [address] [id number] [address] [place] [phone] Jan, [facility] [address] [id number] [address] [place] [address], [place] [address] Dec, [facility] [address] [id number] [address] [place] [id number] Dec, [facility] [address] [id number] [address] [place] [id number] Dec, [facility] [address] [id number] [address] [place] [address], [place] [address] 16 Nov, 2014 [facility] [address] [id number] [address] [place] [address], [place] [address] Nov, [facility] [address] [id number] [address] [place] [address], [place] [address] Oct, [facility] [address] [id number] [address] [place] [address], [place] [address] Oct, [facility] [address] [id number] [address] [place] [address], [place] [address] Oct, [facility] [address] [id number] [address] [place] [address], [place] [address] Oct, [facility] [address] [id number] [address] [place] [address], [place] [address] Oct, [facility] [address] [id number] [address] [place] [address], [place] [address] Oct, [facility] [address] [id number] [address] [place] [address], [place] [address] Oct, [facility] [address] [id number] [address] [place] [address], [place] [address] Oct, [facility] [address] [id number] [address] [place] [address], [place] [address] Sep, [facility] [address] [id number] [address] [place] [address], [place] [address] Sep, [facility] [address] [id number] [address] [place] [address], [place] [address] Sep, [facility] [address] [id number] [address] [place] [address], [place] [address] Sep, [facility] [address] [id number] [address] [place] [address], [place] [address] Sep, [facility] [address] [id number] [address] [place] [address], [place] [address] Sep, [facility] [address] [id number] [address] [place] [address], [place] [address] Aug, [facility] [address] [id number] [address] [place] [address], [place] [address] Aug, [facility] [address] [id number] [address] [place] [address], [place] [address] Aug, [facility] [address] [id number] [address] [place] [address], [place] [address] Aug, [facility] [address] [id number] [address] [place] [address], [place] [address] Aug, [facility] [address] [id number] [address] [place] [address], [place] [address] Aug, [facility] [address] [id number] [address] [place] [address], [place] [address] Aug, [facility] [address] [id number] [address] [place] [address], [place] [address] Aug, [facility] [address] [id number] [address] [place] [address], [place] [address] Aug, [facility] [address] [id number] [address] [place] [address], [place] [address] Aug, [facility] [address] [id number] [address] [place] [address], [place] [address] Jul, [facility] [address] [id number] [address] [place] [address], [place] [address] 22 Jul, 2014 [facility] [address] [id number] [address] [place] [address], [place] [address] Jul, [facility] [address] [id number] [address] [place] [address], [place] [address] 12 Jul, 2014 [facility] [address] [id number] [address] [place] [address], [place] [address] 10 Jul, 2014 [facility] [address] [id number] [address] [place] [address], [place] [address] Jul, [facility] [address] [id number] [facility] [place] [address] Jun, [facility] [address] [id number] [address] [place] [address], [place] [address] Jun, [facility] [address] [id number] [address] [place] [address], [place] [address] Jun, [facility] [address] [id number] [address] [place] [address], [place] [address] Jun, [facility] [address] [id number] [address] [place] [address], [place] [address] Jun, [facility] [address] [id number] [address] [place] [address], [place] [address] Jun, [facility] [address] [id number] [address] [place] [address], [place] [address] May, [facility] [address] [id number] [address] [place] [address], [place] [address] May, [facility] [address] [id number] [address] [place] [address], [place] [address] May, [facility] [address] [id number] [address] [place] [address], [place] [address] May, [facility] [address] [id number] [address] [place] [address], [place] [address] May, [facility] [address] [id number] [address] [place] [address], [place] [address] Apr, [facility] [address] [id number] [address] [place] [address], [place] [address] Apr, [facility] [address] [id number] [address] [place] [address], [place] [address] Apr, [facility] [address] [id number] [address] [place] [address], [place] [address] Apr, [facility] [address] [id number] [facility] [place] [address] March, [facility] [address] [id number] [address] [place] [address], [place] [address] March, [facility] [address] [id number] [address] [place] [address], [place] [address] March, [facility] [address] [id number] [address] [place] [address], [place] [address] March, [facility] [address] [id number] [address] [place] [address], [place] [address] March, [facility] [address] [id number] [address] [place] [address], [place] [address] March, [facility] [address] [id number] [address] [place] [address], [place] [address] Feb, [facility] [address] [id number] [address] [place] [address], [place] [address] Feb, [facility] [address] [id number] [address] [place] [address], [place] [address] Feb, [facility] [address] [id number] [address] [place] [address], [place] [address] Feb, [facility] [address] [id number] [address] [place] [address], [place] [address] Feb, [facility] [address] [id number] [address] [place] [address], [place] [address] Feb, [facility] [address] [id number] [address] [place] [address], [place] [address] Feb, [facility] [address] [id number] [address] [place] [address], [place] [address] Feb, [facility] [address] [id number] [address] [place] [address], [place] [address] Jan, [facility] [address] [id number] [address] [place] [address], [place] [address] Jan, [facility] [address] [id number] [facility] [place] [address] Jan, [facility] [address] [id number] [facility] [place] [address] Jan, [facility] [address] [id number] [facility] [place] [address] Jan, [facility] [address] [id number] [facility] [place] [address] Jan, [facility] [address] [id number] [facility] [place] [address] Dec, [facility] [address] [id number] [address] [place] [address], [place] [address] Dec, [facility] [address] [id number] [address] [place] [address], [place] [address] Nov, [facility] [address] [id number] [address] [place] [address], [place] [address] Nov, [facility] [address] [id number] [address] [place] [address], [place] [address] Nov, [facility] [address] [id number] [address] [place] [address], [place] [address] Nov, [facility] [address] [id number] [address] [place] [address], [place] [address] Nov, [facility] [address] [id number] [address] [place] [address], [place] [address] Nov, [facility] [address] [id number] [address] [place] [address], [place] [address] Nov, [facility] [address] [id number] [address] [place] [address], [place] [address] Nov, [facility] [address] [id number] [facility] [place] [address] Nov, [facility] [address] [id number] [address] [place] [address], [place] [address] 08 Nov, 2013 [facility] [address] [id number] [address] [place] [address], [place] [address] Nov, [facility] [address] [id number] [address] [place] [address], [place] [address] Nov, [facility] [address] [id number] [address] [place] [address], [place] [address] Nov, [facility] [address] [id number] [address] [place] [address], [place] [address] Nov, [facility] [address] [id number] [address] [place] [address], [place] [address] Nov, [facility] [address] [id number] [address] [place] [address], [place] [address] Oct, [facility] [address] [id number] [address] [place] [address], [place] [address] Oct, [facility] [address] [id number] [address] [place] [address], [place] [address] Oct, [facility] [address] [id number] [address] [place] [address], [place] [address] Oct, [facility] [address] [id number] [address] [place] [address], [place] [address] Oct, [facility] [address] [id number] [address] [place] [address], [place] [address] Oct, [facility] [address] [id number] [address] [place] [address], [place] [address] Oct, [facility] [address] [id number] [address] [place] [address], [place] [address] Oct, [facility] [address] [id number] [address] [place] [address], [place] [address] Oct, [facility] [address] [id number] [address] [place] [address], [place] [address] Aug, [facility] [address] [facility] [id number] [address] [address] 29 Aug, 2013 IMMUNIZATIONS No Known Immunizations [...] by Dr. Troy Michelle pain specialist in [place], [place] Medical History Chronic low back pain Medical History depression Medical History anxiety Medical History Panic attacks Medical History Vitamin B 12 deficiency r/t gastric bypa ss Medical History Low back injections 11/2012, 06/2013 Medical History Thrombocytosis Surgical History tonsillectomy Surgical History gastric bypass--2003-in [place] Unsure of Dr's name. No longer in practice. Band removed 2008 Surgical History hysterectomy-Total r/t fibroid tumors 01 Surgical History orthopedic surgery--left low er leg [...]
--- OUTSIDE RECORDS SUMMARY | 2020-06-19 02:26 | XMS REPORT ---
Author Author ARMANDO Mahsavirgen LOCK Organization [facility] Address [address] [place] [address] Care Team Providers Care Healthcare Or Medical Name Role Phone ARMANDONYASIA DIAZY Unavailable PROBLEMS Type Condition ICD9-CM Code [id number] Code Onset Dates Condition S tatus SNOMED Code Problem Chronic pain syndrome G89.4 Active 363872524 Problem Other constipation K59.09 Active 1 [id number] Problem Anxiety F41.9 Active 44259164 Problem Primary insomnia F51.01 Active 193 097033 Problem Atherosclerosis of [place] ronary artery of [place] heart without angina pectoris I25.10 Active [id number] Problem Essential hypertension I10 Active 68652775 Problem Hyperlipidemia, unspecified hyperlipidemia E78.5 Active 20533787 Problem Major depressive disorder, recurrent episode, un specified severity F33.9 Active 70644943 Problem Allergic rhinitis J30.9 Active 61 667159 Problem Fibromyalgia M79.7 Active 1516509 7 Problem GERD (gastroesophageal reflux disease) K21.9 Active 768349415 Problem Degenerative disc disease, thoracic M51.34 Active 80715546 Problem Bilateral low back pain, with sciatica presence unspecifie d M54.5 Active 291868741 Problem Moderate episode of recurrent major depressive disorder F33.1 Active 741882120 Problem B12 deficiency E53.8 Active 41376 4004 Problem Chronic obstructive pulmonary disease, unspecified COPD ty pe J44.9 Active 54779352 Problem CKD (chronic kidney disease) stage 3, GFR 30-59 ml/min N18.3 Active 348553483 Problem Cannabis abuse F12.10 Active 52477 009 Problem Degenerative disc disease, cervical M50.30 Active 25063947 ALLERGIES No Information ENCOUNTERS Encounter Location Date Diagnosis [facility] [address] [facility] [id number] [address] [place] [address] Jan, [facility] [address] [facility] [id number] [address] [place] [address] Nov, [facility] [address] [facility] [id number] [address] [place] [address] Oct, Moderate episode of recurren t major depressive disorder F33.1 ; Chronic obstructive pulmonary disease, unspecified COPD type J44.9 ; CKD (chronic kidney disease) stage 3, GFR 30-59 ml/min N18.3 ; Essential hypertension I10 and Possible exposure to STD Z20.2 [facility] [address] [facility] [id number] [address] [place] [phone] Oct, Essential hypertension I10 [facility] [address] [facility] [id number] [address] [place] [address] Oct, [facility] [address] [facility] [id number] [address] [place] [address] Sep, Essential hypertension I10 [facility] [address] [facility] [id number] [address] [place] [id number] Sep, [facility] [address] [facility] [id number] [address] [place] [phone] Sep, [facility] [address] [facility] [id number] [address] [place] [address] Sep, [facility] [address] [facility] [id number] [address] [place] [address] Aug, Essential hypertension I10 [facility] [address] [facility] [id number] [address] [place] [phone] Aug, Essential hypertension I10 [facility] [address] [facility] [id number] [address] [place] [address] Jul, Allergic rhinitis J30.9 ; CK D (chronic kidney disease) stage 3, GFR 30-59 ml/min N18.3 ; Essential hypertension I10 and Moderate episode of recurrent major depressive disorder F33.1 [facility] [address] [facility] [id number] [address] [place] [address] Jul, Elevated platelet count R79. 89 ; B12 deficiency E53.8 ; Hyperlipidemia, unspecified hyperlipidemia E78.5 and CKD (chronic kidney disease) stage 3, GFR 30-59 ml/min N18.3 [place] [address] [facility] [id number] [address] [place] [id number] 04 Apr, 2019 B12 deficiency E53.8 [place] [address] [facility] [id number] [address] [place] [address] Jan, Periumbilical hernia K42.9 ; CKD (chronic kidney disease) stage 3, GFR 30-59 ml/min N18.3 ; Essential hypertension I10 ; GERD (gastroesophageal reflux disease) K21.9 ; Hyperlipidemia, unspecified hyperlipidemia E78.5 and Major depressive disorder, recurrent episode, unspecified severity F33.9 [place] [address] [place] [id number] [address] [place] [id number] 12 Dec, 2018 Anxiety F41.9 [place] [address] [place] [id number] [address] [place] [id number] 17 Nov, 2018 Elevated platelet count R79. 89 [place] [address] [place] [id number] [address] [place] [phone] Nov, [place] [address] [place] [id number] [address] [place] [address] Nov, Elevated platelet count R79. 89 [place] [address] [place] [id number] [address] [place] [phone] Nov, Anxiety F41.9 [place] [address] [place] [id number] [address] [place] [address] Nov, Bilateral low back pain, wit h sciatica presence unspecified M54.5 ; Cervicalgia M54.2 ; Degenerative disc disease, cervical M50.30 and Degenerative disc disease, thoracic M51.34 [place] [address] [place] [id number] [address] [place] [id number] 07 Nov, 2018 Chronic pain syndrome G89.4 and Bilateral low back pain, with sciatica presence unspecified M54.5 [place] [address] [address] Oct, Umbilical hernia without obs truction and without gangrene K42.9 [place] [address] [address] Oct, Chronic pain syndrome G89.4 [place] [address] [address] Oct, Chronic pain syndrome G89.4 and Anxiety F41.9 [place] [address] [address] Oct, Elevated platelet count R79. 89 [place] [address] [address] 10 Oct, 2018 CKD (chronic kidney disease) stage 3, GFR 30-59 ml/min N18.3 ; Other chest pain R07.89 ; Acute midline thoracic back pain M54.6 ; Essential hypertension I10 and History of osteoporosis Z87.39 [place] [address] [address] Sep, Chronic pain syndrome G89.4 [place] [address] [address] 16 Sep, 2018 [place] [address] [address] 15 Sep, 2018 Anxiety F41.9 and Chronic pa in syndrome G89.4 [place] [address] [address] 18 Aug, 2018 Chronic pain syndrome G89.4 and Anxiety F41.9 [place] [address] [address] 04 Aug, 2018 [place] [address] [address] 03 Aug, 2018 Cannabis abuse F12.10 and Co ntrolled substance agreement terminated Z91.14 [place] [address] [address] Jul, Chronic pain syndrome G89.4 ; Bilateral low back pain, with sciatica presence unspecified M54.5 ; Chronic prescription opiate use Z79.899 ; Essential hypertension I10 ; Hyperlipidemia, unspecified hyperlipidemia E78.5 ; CKD (chronic kidney disease) stage 3, GFR 30-59 ml/min N18.3 and Allergic rhinitis J30.9 [place] [address] [place] [id number] [address] [place] [address] Jul, Chronic pain syndrome G89.4 and Anxiety F41.9 [place] [address] [place] [id number] [address] [place] [address] Jul, Screening for breast cancer Z12.31 and Major depressive disorder, recurrent episode, unspecified severity F33.9 [place] [address] [place] [id number] [address] [place] [address] Jun, Chronic pain syndrome G89.4 and Anxiety F41.9 [place] [address] [place] [id number] [address] [place] [address] May, Chronic pain syndrome G89.4 and Anxiety F41.9 [place] [address] [place] [id number] [address] [place] [address] Apr, Anxiety F41.9 [place] [address] [place] [id number] [address] [place] [address] Apr, Chronic prescription opiate use Z79.899 ; Chronic pain syndrome G89.4 ; Essential hypertension I10 ; Allergic rhinitis J30.9 and CKD (chronic kidney disease) stage 3, GFR 30-59 ml/min N18.3 [place] [address] [facility] [id number] [address] [place] [address] Apr, [place] [address] [place] [id number] [address] [place] [address] March, Anxiety F41.9 and Chronic pa in syndrome G89.4 [place] [address] [place] [id number] [address] [place] [address] March, CKD (chronic kidney disease) stage 3, GFR 30-59 ml/min N18.3 ; B12 deficiency E53.8 and Hyperlipidemia, unspecified hyperlipidemia E78.5 [place] [address] [place] [id number] [address] [place] [address] March, Anxiety F41.9 and Chronic pa in syndrome G89.4 [place] [address] [address] Feb, Anxiety F41.9 and Chronic pa in syndrome G89.4 [place] [address] [place] [address] Jan, B12 deficiency E53.8 [place] [address] [place] [id number] [place] [address] Jan, [place] [address] [address] Jan, Anxiety F41.9 ; Chronic pain syndrome G89.4 and Essential hypertension I10 [place] [address] [place] [id number] [address] [place] [address] Jan, CKD (chronic kidney disease) stage 3, [...] Subacromial bursitis of right shoulder joint M75.51 [place] [address] [address] Dec, Essential hypertension I10 [place] [address] [place] [id number] [address] [place] [address] 15 Dec, 2017 Chronic pain syndrome G89.4 [place] [address] [address] Dec, Chronic pain syndrome G89.4 [place] [address] [facility] [id number] [address] [place] [address] Nov, [facility] [address] [facility] [id number] [address] [place] [address] Nov, Chronic pain syndrome G89.4 and Anxiety F41.9 [place] [address] [place] [id number] [address] [place] [address] Oct, Chronic pain syndrome G89.4 ; Other constipation K59.09 and Chronic prescription opiate use Z79.899 [place] [address] [address] Oct, Chronic pain syndrome G89.4 and Anxiety F41.9 [place] [address] [address] Sep, Essential hypertension I10 [place] [address] [address] 16 Sep, 2017 Chronic pain syndrome G89.4 and Anxiety F41.9 [place] [address] [address] Aug, Chronic pain syndrome G89.4 and Anxiety F41.9 [place] [address] [place] [address] 28 Jul, 2017 Essential hypertension I10 [place] [address] [place] [id number] [address] [place] [address] 22 Jul, 2017 Chronic obstructive pulmonar y disease, unspecified COPD type J44.9 [place] [address] [place] [id number] [address] [place] [address] 21 Jul, 2017 Chronic pain syndrome G89.4 and Anxiety F41.9 [place] [address] [place] [id number] [address] [place] [address] 13 Jul, 2017 Chronic pain syndrome G89.4 ; Essential hypertension I10 ; Fibromyalgia M79.7 ; CKD (chronic kidney disease) stage 3, GFR 30-59 ml/min N18.3 ; Subacromial bursitis, right M75.51 and Goals of care, co unseling/discussion Z71.89 [facility] [address] [id number] [address] [place] [address] Jun, Chronic pain syndrome G89.4 and Anxiety F41.9 [facility] [address] [id number] [address] [place] [address] May, Chronic pain syndrome G89.4 and Anxiety F41.9 [facility] [address] [id number] [address] [place] [address] Apr, Chronic pain syndrome G89.4 and Anxiety F41.9 [facility] [address] [facility] [id number] [address] [place] [address] Apr, Drug induced constipation K5 9.03 ; Chronic pain syndrome G89.4 and CKD (chronic kidney disease) stage 3, GFR 30-59 ml/min N18.3 [facility] [address] [id number] [address] [place] [address] Apr, Chronic pain syndrome G89.4 and Anxiety F41.9 [facility] [address] [facility] [id number] [address] [place] [address] March, Chronic pain syndrome G89.4 and Anxiety F41.9 [facility] [address] [id number] [address] [place] [address] March, Decreased GFR R94.4 [facility] [address] [id number] [address] [place] [address] Feb, [facility] [address] [id number] [address] [place] [address] Feb, Chronic pain syndrome G89.4 and Anxiety F41.9 [facility] [address] [id number] [address] [place] [address] Jan, Decreased GFR R94.4 [place] [address] [place] [id number] [address] [place] [address] Jan, Decreased GFR R94.4 [place] [address] [address] Jan, Allergic rhinitis J30.9 ; Es sential hypertension I10 ; Major depressive disorder, recurrent episode, unspecified severity F33.9 and Primary insomnia F51.01 [place] [address] [address] Jan, Acute right-sided thoracic b ack pain M54.6 ; Subacromial bursitis of right shoulder joint M75.51 ; Chronic pain syndrome G89.4 and Anxiety F41.9 [place] [address] [address] Jan, Decreased GFR R94.4 [place] [address] [address] Dec, Decreased GFR R94.4 [place] [address] [address] Dec, Decreased GFR R94.4 [place] [address] [place] [id number] [place] [address] Dec, Decreased GFR R94.4 [place] [address] [address] Dec, Decreased GFR R94.4 [place] [address] [place] [id number] [place] [address] Dec, Anxiety F41.9 and Bilateral low back pain, with sciatica presence unspecified M54.5 [place] [address] [address] Dec, Thrombocytosis D47.3 ; Hyper lipidemia, unspecified hyperlipidemia E78.5 ; Need for hepatitis C screening test Z11.59 and B12 deficiency E53.8 [place] [address] [address] 13 Nov, 2016 Need for hepatitis C screeni ng test Z11.59 [place] [address] [address] Nov, Anxiety F41.9 and Bilateral low back pain, with sciatica presence unspecified M54.5 [place] [address] [address] Oct, Bilateral low back pain, wit h sciatica presence unspecified M54.5 ; Chronic prescription opiate use Z79.899 ; Anxiety F41.9 ; Essential hypertension I10 ; Hyperlipidemia, unspecified hyperlipidemia E78.5 ; Health care maintenance Z00.00 and Thrombocytosis D47.3 [place] [address] [address] Sep, [place] [address] [address] Sep, [place] [address] [address] Aug, [place] [address] [address] Jul, B12 deficiency E53.8 [place] [address] [address] Jul, [place] [address] [address] Jul, Essential hypertension I10 ; Chronic pain syndrome G89.4 ; Anxiety F41.9 ; Screening for breast cancer Z12.39 ; Atherosclerosis of [place] coronary artery of [place] heart without angina pectoris I25.10 ; Major depressive disorder, recurrent episode, unspecified severity F33.9 ; Primary insomnia F51.01 and Allergic rhinitis J30.9 [facility] [address] [place] [id number] [address] [place] [address] Jun, [facility] [address] [place] [id number] [place] [address] Jun, Leg wound, right, initial en counter S81.801A and Encounter for immunization Z23 [facility] [address] [facility] [id number] [address] [place] [address] Jun, Open wound of right ear, uns pecified open wound type, initial encounter S01.301A [facility] [address] [facility] [id number] [address] [place] [address] May, B12 deficiency E53.8 [facility] [address] [facility] [id number] [address] [place] [address] May, [facility] [address] [facility] [id number] [address] [place] [address] May, [facility] [address] [facility] [id number] [address] [place] [address] May, Chronic pain syndrome G89.4 ; Chronic prescription opiate use Z79.899 ; Allergic rhinitis J30.9 ; Essential hypertension I10 and Non-healing skin lesion L98.9 [facility] [address] [facility] [id number] [address] [place] [address] Apr, [facility] [address] [facility] [id number] [address] [place] [address] March, [facility] [address] [facility] [id number] [address] [place] [address] Feb, [facility] [address] [facility] [id number] [address] [place] [address] Feb, [facility] [address] [facility] [id number] [address] [place] [address] Feb, Chronic pain syndrome G89.4 ; Anxiety [...] type J44.9 [facility] [address] [facility] [id number] [address] [place] [address] 30 Jan, 2016 [facility] [address] [facility] [id number] [address] [place] [address] 11 Jan, 2016 Essential hypertension I10 [facility] [address] [facility] [id number] [address] [place] [address] Jan, [facility] [address] [facility] [id number] [address] [place] [address] Jan, [facility] [address] [facility] [id number] [address] [place] [address] Jan, [facility] [address] [facility] [id number] [address] [place] [address] Dec, [facility] [address] [facility] [id number] [address] [place] [address] Dec, Essential hypertension I10 [facility] [address] [facility] [id number] [address] [place] [address] Dec, [facility] [address] [facility] [id number] [address] [place] [address] Dec, B12 deficiency E53.8 and Ess ential hypertension I10 [facility] [address] [facility] [id number] [address] [place] [address] Dec, [facility] [address] [facility] [id number] [address] [place] [address] Nov, Right shoulder pain M25.511 [facility] [address] [facility] [id number] [address] [place] [address] Nov, Right shoulder pain M25.511 [facility] [address] [facility] [id number] [address] [place] [address] Nov, Essential hypertension I10 a nd B12 deficiency E53.8 [place] [id number] [facility] [id number] [address] [place] [address] 14 Nov, 2015 Major depressive disorder, r ecurrent episode, unspecified severity F33.9 ; Anxiety F41.9 ; Chronic pain syndrome G89.4 ; Essential hypertension I10 ; Hyperlipidemia, unspecified hyperlipidemia E78.5 ; Chronic prescription opiate use Z79.899 ; Allergic rhinitis J30.9 ; B12 deficiency E53.8 and Right shoulder pain M25.511 [facility] [address] [facility] [id number] [address] [place] [address] Oct, [facility] [address] [facility] [id number] [address] [place] [address] Oct, [facility] [address] [place] [id number] [place] [address] Sep, [facility] [address] [place] [id number] [place] [address] Sep, [facility] [address] [place] [id number] [address] [place] [address] Aug, [facility] [address] [place] [id number] [address] [place] [address] Aug, [facility] [address] [place] [id number] [address] [place] [address] Aug, [facility] [address] [place] [id number] [address] [place] [address] Aug, Other constipation K59.09 ; Hyperlipidemia, unspecified hyperlipidemia E78.5 ; Essential hypertension I10 ; Primary insomnia F51.01 ; Anxiety F41.9 ; Chronic pain syndrome G89.4 ; Right shoulder pain M25.511 and Acute cystitis without hematuria N30.00 [facility] [address] [place] [id number] [address] [place] [address] 16 Jul, 2015 [facility] [address] [place] [id number] [address] [place] [address] Jul, [facility] [address] [place] [id number] [address] [place] [address] 15 Jun, 2015 [facility] [address] [id number] [address] [place] [address] Jun, [facility] [address] [id number] [address] [place] [address] Jun, [facility] [address] [id number] [address] [place] [address] May, [facility] [address] [id number] [address] [place] [address] May, Other chronic pain 338.29 ; Hypertension 401.9 and Constipation due to opioid therapy 564.09 [facility] [address] [id number] [address] [place] [phone] 17 May, 2015 [facility] [address] [id number] [address] [place] [address] May, [facility] [address] [id number] [address] [place] [address] 17 Apr, 2015 [facility] [address] [id number] [address] [place] [phone] 17 Apr, 2015 Unspecified essential hypert ension 401.9 [facility] [address] [id number] [address] [place] [phone] 16 Apr, 2015 [facility] [address] [id number] [address] [place] [id number] 16 Apr, 2015 [facility] [address] [id number] [address] [place] [phone] 16 Apr, 2015 [facility] [address] [id number] [address] [place] [phone] Apr, [facility] [address] [id number] [address] [place] [id number] 15 Apr, 2015 [facility] [address] [facility] [id number] [address] [place] [phone] 12 Apr, 2015 [facility] [address] [id number] [address] [place] [id number] March, Unspecified essential hypert ension 401.9 [facility] [address] [id number] [address] [place] [address], [place] [phone] March, [facility] [address] [id number] [address] [place] [address], [place] [phone] March, [facility] [address] [id number] [address] [place] [phone] Feb, [facility] [address] [id number] [address] [place] [address] [address] Feb, [facility] [address] [id number] [address] [place] [address] Jan, [facility] [address] [id number] [address] [place] [address] Jan, [facility] [address] [id number] [address] [place] [address] Jan, [facility] [address] [id number] [address] [place] [address], [place] [address] Jan, [facility] [address] [id number] [address] [place] [address] Jan, [facility] [address] [id number] [address] [place] [address] Jan, [facility] [address] [id number] [address] [place] [address] Jan, [facility] [address] [id number] [address] [place] [address], [place] [address] Dec, [facility] [address] [id number] [address] [place] [address] Dec, [facility] [address] [id number] [address] [place] [id number] Dec, [facility] [address] [id number] [address] [place] [address], [place] [address] 16 Nov, 2014 [facility] [address] [id number] [address] [place] [address], [place] [address] Nov, [facility] [address] [id number] [address] [place] [address], [place] [address] Oct, [facility] [address] [id number] [address] [place] [address], [place] [address] Oct, [facility] [address] [id number] [address] [place] [address], [place] [address] Oct, [facility] [address] [id number] [address] [place] [address], [place] [address] Oct, [facility] [address] [id number] [address] [place] [address], [place] [address] Oct, [facility] [address] [id number] [address] [place] [address], [place] [address] Oct, [facility] [address] [id number] [address] [place] [address], [place] [address] Oct, [facility] [address] [id number] [address] [place] [address], [place] [address] Oct, [facility] [address] [id number] [address] [place] [address], [place] [address] Sep, [facility] [address] [id number] [address] [place] [address], [place] [address] Sep, [facility] [address] [id number] [address] [place] [address], [place] [address] Sep, [facility] [address] [id number] [address] [place] [address], [place] [address] Sep, [facility] [address] [id number] [address] [place] [address], [place] [address] Sep, [facility] [address] [id number] [address] [place] [address], [place] [address] Sep, [facility] [address] [id number] [address] [place] [address], [place] [address] Aug, [facility] [address] [id number] [address] [place] [address], [place] [address] Aug, [facility] [address] [id number] [address] [place] [address], [place] [address] Aug, [facility] [address] [id number] [address] [place] [address], [place] [address] Aug, [facility] [address] [id number] [address] [place] [address], [place] [address] Aug, [facility] [address] [id number] [address] [place] [address], [place] [address] Aug, [facility] [address] [id number] [address] [place] [address], [place] [address] Aug, [facility] [address] [id number] [address] [place] [address], [place] [address] Aug, [facility] [address] [id number] [address] [place] [address], [place] [address] Aug, [facility] [address] [id number] [address] [place] [address], [place] [address] Aug, [facility] [address] [id number] [address] [place] [address], [place] [address] Jul, [facility] [address] [id number] [address] [place] [address], [place] [address] 22 Jul, 2014 [facility] [address] [id number] [address] [place] [address], [place] [address] Jul, [facility] [address] [id number] [address] [place] [address], [place] [address] 12 Jul, 2014 [facility] [address] [id number] [address] [place] [address], [place] [address] 10 Jul, 2014 [facility] [address] [id number] [address] [place] [address], [place] [address] Jul, [facility] [address] [id number] [facility] [address] Jun, [facility] [address] [id number] [address] [place] [address], [place] [address] Jun, [facility] [address] [id number] [address] [place] [address], [place] [address] Jun, [facility] [address] [id number] [address] [place] [address], [place] [address] Jun, [facility] [address] [id number] [address] [place] [address], [place] [address] Jun, [facility] [address] [id number] [address] [place] [address], [place] [address] Jun, [facility] [address] [id number] [address] [place] [address], [place] [address] May, [facility] [address] [id number] [address] [place] [address], [place] [address] May, [facility] [address] [id number] [address] [place] [address], [place] [address] May, [facility] [address] [id number] [address] [place] [address], [place] [address] May, [facility] [address] [id number] [address] [place] [address], [place] [address] May, [facility] [address] [id number] [address] [place] [address], [place] [address] Apr, [facility] [address] [id number] [address] [place] [address], [place] [address] Apr, [facility] [address] [id number] [address] [place] [address], [place] [address] Apr, [facility] [address] [id number] [address] [place] [address], [place] [address] Apr, [facility] [address] [id number] [facility] [address] March, [facility] [address] [id number] [address] [place] [address], [place] [address] March, [facility] [address] [id number] [address] [place] [address], [place] [address] March, [facility] [address] [id number] [address] [place] [address], [place] [address] March, [facility] [address] [id number] [address] [place] [address], [place] [address] March, [facility] [address] [id number] [address] [place] [address], [place] [address] March, [facility] [address] [id number] [address] [place] [address], [place] [address] Feb, [facility] [address] [id number] [address] [place] [address], [place] [address] Feb, [facility] [address] [id number] [address] [place] [address], [place] [address] Feb, [facility] [address] [id number] [address] [place] [address], [place] [address] Feb, [facility] [address] [id number] [address] [place] [address], [place] [address] Feb, [facility] [address] [id number] [address] [place] [address], [place] [address] Feb, [facility] [address] [id number] [address] [place] [address], [place] [address] Feb, [facility] [address] [id number] [address] [place] [address], [place] [address] Feb, [facility] [address] [id number] [address] [place] [address], [place] [address] Jan, [facility] [address] [id number] [address] [place] [address], [place] [address] Jan, [facility] [address] [id number] [facility] [address] Jan, [facility] [address] [id number] [facility] [address] Jan, [facility] [address] [id number] [facility] [address] Jan, [facility] [address] [id number] [facility] [address] Jan, [facility] [address] [id number] [facility] [address] Dec, [facility] [address] [id number] [address] [place] [address], [place] [address] Dec, [facility] [address] [id number] [address] [place] [address], [place] [address] Nov, [facility] [address] [id number] [address] [place] [address], [place] [address] Nov, [facility] [address] [id number] [address] [place] [address], [place] [address] Nov, [facility] [address] [id number] [address] [place] [address], [place] [address] Nov, [facility] [address] [id number] [address] [place] [address], [place] [address] Nov, [facility] [address] [id number] [address] [place] [address], [place] [address] Nov, [facility] [address] [id number] [address] [place] [address], [place] [address] Nov, [facility] [address] [id number] [address] [place] [address], [place] [address] Nov, [facility] [address] [id number] [facility] [address] Nov, [facility] [address] [id number] [address] [place] [address], [place] [address] 08 Nov, 2013 [facility] [address] [id number] [address] [place] [address], [place] [address] Nov, [facility] [address] [id number] [address] [place] [address], [place] [address] Nov, [facility] [address] [id number] [address] [place] [address], [place] [address] Nov, [facility] [address] [id number] [address] [place] [address], [place] [address] Nov, [facility] [address] [id number] [address] [place] [address], [place] [address] Nov, [facility] [address] [id number] [address] [place] [address], [place] [address] Oct, [facility] [address] [id number] [address] [place] [address], [place] [address] Oct, [facility] [address] [id number] [address] [place] [address], [place] [address] Oct, [facility] [address] [id number] [address] [place] [address], [place] [address] Oct, [facility] [address] [id number] [address] [place] [address], [place] [address] Oct, [facility] [address] [id number] [address] [place] [address], [place] [address] Oct, [facility] [address] [id number] [address] [place] [address], [place] [address] Oct, [facility] [address] [id number] [address] [place] [address], [place] [address] Oct, [facility] [address] [id number] [address] [place] [address], [place] [address] Oct, [facility] [address] [id number] [address] [place] [address], [place] [address] Aug, [facility] [address] [facility] [id number] [address] [address] 29 Aug, 2013 IMMUNIZATIONS No Known Immunizations SOCIAL HISTORY Never Assessed REASON FOR VISIT PLAN OF CARE VITAL SIGNS Height 69 in 2013-11-28 Weight 216.44 lbs 2013-11-28 Temperature 97.8 degrees Fahrenheit 2013-11-28 Heart Rate 78 bpm 2013-11-28 Respiratory Rate 18 2013-11-28 Blood pressure systolic 130 mmHg 2013-11-28 Blood pressure diastolic 78 mmHg 2013-11-28 MEDICATIONS Unknown Medications RESULTS No Results PROCEDURES Procedure Date Ordered Result Body Site INJ VIT B-12 CYNOCOBLMN TO 1000 MCG Nov 28, 2013 DRUG SCREEN, QUALITATE/MULTI Nov 28, 2013 INSTRUCTIONS MEDICATIONS ADMINISTERED No Known Medications MEDICAL (GENERAL) HISTORY Type Description Date Medical History hypertension Medical History asthma Medical History Arthritis Medical History Hypoglycemia Medical History Heart Cath 11/05/2013 Medical History herniated disc--Seen by Dr. Troy Michelle pain specialist in [place], [place] Medical History Chronic low back pain [...]
--- OUTSIDE RECORDS SUMMARY | 2020-06-19 02:27 | XMS REPORT ---
Author Author ARMANDO Mahsa ASHVIN Organization [facility] Address [address] [place] [address] Care Team Providers Care Rouge Presser Name Role Phone ARMANDONYASIA DIAZY Unavailable PROBLEMS Type Condition ICD9-CM Code BRE96-DR Code Onset Dates Condition S tatus SNOMED Code Problem Chronic pain syndrome G89.4 Active 422078157 Problem Other constipation K59.09 Active 1 [id number] Problem Anxiety F41.9 Active 44417259 Problem Primary insomnia F51.01 Active 193 601022 Problem Atherosclerosis of [place] co ronary artery of [place] heart without angina pectoris I25.10 Active 9097305309948 Problem Essential hypertension I10 Active 92095347 Problem Hyperlipidemia, unspecified hyperlipidemia E78.5 Active 01899806 Problem Major depressive disorder, recurrent episode, un specified severity F33.9 Active 29408238 Problem Allergic rhinitis J30.9 Active 61 331564 Problem Fibromyalgia M79.7 Active 3454797 7 Problem GERD (gastroesophageal reflux disease) K21.9 Active 821900400 Problem Degenerative disc disease, thoracic M51.34 Active 85353186 Problem Bilateral low back pain, with sciatica presence unspecifie d M54.5 Active 795041962 Problem Moderate episode of recurrent major depressive disorder F33.1 Active 984366698 Problem B12 deficiency E53.8 Active 73241 4004 Problem Chronic obstructive pulmonary disease, unspecified COPD ty pe J44.9 Active 05334436 Problem CKD (chronic kidney disease) stage 3, GFR 30-59 ml/min N18.3 Active 286286364 Problem Cannabis abuse F12.10 Active 69696 009 Problem Degenerative disc disease, cervical M50.30 Active 35035594 ALLERGIES No Information ENCOUNTERS Encounter Location Date Diagnosis [facility] [address] [id number] [place] [address] Jan, [facility] [address] [id number] [place] [address] Nov, [place] [address] [address] Oct, Moderate episode of recurrent major depr essive disorder F33.1 ; Chronic obstructive pulmonary disease, unspecified COPD type J44.9 ; CKD (chronic kidney disease) stage 3, GFR 30-59 ml/min N18.3 ; Essential hypertension I10 and Possible exposure to STD Z20.2 [place] [address] [address] Oct, Essential hypertension I10 [place] [address] [address] Oct, [place] [address] [address] Sep, Essential hypertension I10 [place] [address] [address] Sep, [place] [address] [address] Sep, [place] [address] [address] Sep, [place] [address] [address] Aug, Essential hypertension I10 [place] [address] [address] Aug, Essential hypertension I10 [place] [address] [address] Jul, Allergic rhinitis J30.9 ; CKD (chronic k idney disease) stage 3, GFR 30-59 ml/min N18.3 ; Essential hypertension I10 and Moderate episode of recurrent major depressive disorder F33.1 [place] [address] [address] Jul, Elevated platelet count R79.89 ; B12 def iciency E53.8 ; Hyperlipidemia, unspecified hyperlipidemia E78.5 and CKD (chronic kidney disease) stage 3, GFR 30-59 ml/min N18.3 [place] [address] [address] 04 Apr, 2019 B12 deficiency E53.8 [place] [address] [address] 27 Jan, 2019 Periumbilical hernia K42.9 ; CKD (chroni c kidney disease) stage 3, GFR 30-59 ml/min N18.3 ; Essential hypertension I10 ; GERD (gastroesophageal reflux disease) K21.9 ; Hyperlipidemia, unspecified hyperlipidemia E78.5 and Major depressive disorder, recurrent episode, unspecified severity F33.9 [place] [address] [address] 12 Dec, 2018 Anxiety F41.9 [place] [address] [address] 17 Nov, 2018 Elevated platelet count R79.89 [place] [address] [address] 15 Nov, 2018 [place] [address] [address] 14 Nov, 2018 Elevated platelet count R79.89 [place] [address] [address] 14 Nov, 2018 Anxiety F41.9 [place] [address] [address] 14 Nov, 2018 Bilateral low back pain, with sciatica p resence unspecified M54.5 ; Cervicalgia M54.2 ; Degenerative disc disease, cervical M50.30 and Degenerative disc disease, thoracic M51.[address] [address] 07 Nov, 2018 Chronic pain syndrome G89.4 and Bilatera l low back pain, with sciatica presence unspecified M54.5 [place] [address] [address] Oct, Umbilical hernia without obstruction and without gangrene K42.9 [place] [address] [address] Oct, Chronic pain syndrome G89.4 [place] [address] [address] Oct, Chronic pain syndrome G89.4 and Anxiety F41.9 [place] [address] [address] Oct, Elevated platelet count R79.89 [place] [address] [address] Oct, CKD (chronic kidney disease) stage 3, GF R 30-59 ml/min N18.3 ; Other chest pain R07.89 ; Acute midline thoracic back pain M54.6 ; Essential hypertension I10 and History of osteoporosis Z87.[address] [address] Sep, Chronic pain syndrome G89.4 [place] [address] [address] 16 Sep, [address] [address] Sep, Anxiety F41.9 and Chronic pain syndrome G89.[address] [address] 18 Aug, 2018 Chronic pain syndrome G89.4 and Anxiety F41.9 [place] [address] [address] Aug, [address] [address] Aug, Cannabis abuse F12.10 and Controlled sub stance agreement terminated Z91.[address] [address] Jul, Chronic pain syndrome G89.4 ; Bilateral low back pain, with sciatica presence unspecified M54.5 ; Chronic prescription opiate use Z79.899 ; Essential hypertension I10 ; Hyperlipidemia, unspecified hyperlipidemia E78.5 ; CKD (chronic kidney disease) stage 3, GFR 30-59 ml/min N18.3 and Allergic rhinitis J30.9 [place] [address] [address] Jul, Chronic pain syndrome G89.4 and Anxiety F41.9 [place] [address] [address] Jul, Screening for breast cancer Z12.31 and Casandra castillo depressive disorder, recurrent episode, unspecified severity F33.9 [place] [address] [address] Jun, Chronic pain syndrome G89.4 and Anxiety F41.9 [place] [address] [address] May, Chronic pain syndrome G89.4 and Anxiety F41.9 [place] [address] [address] Apr, Anxiety F41.9 [place] [address] [address] Apr, Chronic prescription opiate use Z79.899 ; Chronic pain syndrome G89.4 ; Essential hypertension I10 ; Allergic rhinitis J30.9 and CKD (chronic kidney disease) stage 3, GFR 30-59 ml/min N18.3 [place] [address] [address] Apr, [place] [address] [address] March, Anxiety F41.9 and Chronic pain syndrome G89.4 [place] [address] [address] March, CKD (chronic kidney disease) stage 3, GF R 30-59 ml/min N18.3 ; B12 deficiency E53.8 and Hyperlipidemia, unspecified hyperlipidemia E78.5 [place] [address] [address] March, Anxiety F41.9 and Chronic pain syndrome G89.4 [place] [address] [address] Feb, Anxiety F41.9 and Chronic pain syndrome G89.4 [place] [address] [address] Jan, B12 deficiency E53.8 [place] [address] [address] Jan, [place] [address] [address] Jan, Anxiety F41.9 ; Chronic pain syndrome G8 9.4 and Essential hypertension I10 [place] [address] [address] Jan, CKD (chronic kidney disease) stage 3, [...] of right shoulder joint M75.51 [place] [address] [address] Dec, Essential hypertension I10 [place] [address] [address] Dec, Chronic pain syndrome G89.4 [place] [address] [address] Dec, Chronic pain syndrome G89.4 [place] [address] [address] Nov, [place] [address] [address] Nov, Chronic pain syndrome G89.4 and Anxiety F41.9 [place] [address] [address] Oct, Chronic pain syndrome G89.4 ; Other cons tipation K59.09 and Chronic prescription opiate use Z79.899 [place] [address] [address] 08 Oct, 2017 Chronic pain syndrome G89.4 and Anxiety F41.9 [place] [address] [address] Sep, Essential hypertension I10 [address] [address] 16 Sep, 2017 Chronic pain syndrome G89.4 and Anxiety F41.[address] [address] Aug, Chronic pain syndrome G89.4 and Anxiety F41.[address] [address] 28 Jul, 2017 Essential hypertension I10 [address] [address] 22 Jul, 2017 Chronic obstructive pulmonary disease, u nspecified COPD type J44.[address] [address] 21 Jul, 2017 Chronic pain syndrome G89.4 and Anxiety F41.[address] [address] 13 Jul, 2017 Chronic pain syndrome G89.4 ; Essential hypertension I10 ; Fibromyalgia M79.7 ; CKD (chronic kidney disease) stage 3, GFR 30-59 ml/min N18.3 ; Subacromial bursitis, right M75.51 and Goals of care, co unseling/discussion Z71.[address] [address] Jun, Chronic pain syndrome G89.4 and Anxiety F41.[address] [address] May, Chronic pain syndrome G89.4 and Anxiety F41.9 [place] [address] [address] Apr, Chronic pain syndrome G89.4 and Anxiety F41.9 [place] [address] [address] Apr, Drug induced constipation K59.03 ; Chron ic pain syndrome G89.4 and CKD (chronic kidney disease) stage 3, GFR 30-59 ml/min N18.3 [place] [address] [address] Apr, Chronic pain syndrome G89.4 and Anxiety F41.9 [place] [address] [address] March, Chronic pain syndrome G89.4 and Anxiety F41.9 [place] [address] [address] March, Decreased GFR R94.4 [place] [address] [address] Feb, [place] [address] [address] Feb, Chronic pain syndrome G89.4 and Anxiety F41.9 [place] [address] [address] Jan, Decreased GFR R94.4 [place] [address] [address] Jan, Decreased GFR R94.4 [place] [address] [address] Jan, Allergic rhinitis J30.9 ; Essential hype rtension I10 ; Major depressive disorder, recurrent episode, unspecified severity F33.9 and Primary insomnia F51.01 [place] [address] [address] Jan, Acute right-sided thoracic back pain M54 .6 ; Subacromial bursitis of right shoulder joint M75.51 ; Chronic pain syndrome G89.4 and Anxiety F41.9 [place] [address] [address] Jan, Decreased GFR R94.4 [place] [address] [address] Dec, Decreased GFR R94.4 [place] [address] [address] Dec, Decreased GFR R94.4 [place] [address] [address] Dec, Decreased GFR R94.4 [place] [address] [address] Dec, Decreased GFR R94.4 [place] [address] [address] Dec, Anxiety F41.9 and Bilateral low back candis n, with sciatica presence unspecified M54.5 [place] [address] [address] Dec, Thrombocytosis D47.3 ; Hyperlipidemia, u nspecified hyperlipidemia E78.5 ; Need for hepatitis C screening test Z11.59 and B12 deficiency E53.8 [place] [address] [address] Nov, Need for hepatitis C screening test Z11. 59 [place] [address] [address] Nov, Anxiety F41.9 and Bilateral low back candis n, with sciatica presence unspecified M54.5 [place] [address] [address] Oct, Bilateral low back pain, with sciatica p resence unspecified M54.5 ; Chronic prescription opiate use Z79.899 ; Anxiety F41.9 ; Essential hypertension I10 ; Hyperlipidemia, unspecified hyperlipidemia E78.5 ; Health care maintenance Z00.00 and Thrombocytosis D47.3 [place] [address] [address] Sep, [place] [address] [address] Sep, [place] [address] [address] Aug, [place] [address] [address] Jul, B12 deficiency E53.8 [place] [address] [address] Jul, [place] [address] [address] Jul, Essential hypertension I10 ; Chronic candis n syndrome G89.4 ; Anxiety F41.9 ; Screening for breast cancer Z12.39 ; Atherosclerosis of [place] coronary artery of [place] heart without angina pectoris I25.10 ; Major depressive disorder, recurrent episode, unspecified severity F33.9 ; Primary insomnia F51.01 and Allergic rhinitis J30.9 [place] [address] [address] Jun, [facility] [address] [facility] [id number] [address] [place] [address] Jun, Leg wound, right, initial en counter S81.801A and Encounter for immunization Z23 [place] [address] [address] Jun, Open wound of right ear, unspecified ope n wound type, initial encounter S01.301A [place] [address] [address] May, B12 deficiency E53.8 [place] [address] [address] May, [facility] [address] [address] May, [facility] [address] [address] May, Chronic pain syndrome G89.4 ; Chronic pr escription opiate use Z79.899 ; Allergic rhinitis J30.9 ; Essential hypertension I10 and Non-healing skin lesion L98.9 [facility] [address] [address] Apr, [facility] [address] [address] March, [facility] [address] [address] Feb, [place] [address] [address] Feb, [place] [address] [address] Feb, Chronic pain syndrome G89.4 ; Anxiety F4 1.9 ; B12 deficiency E53.8 ; Allergic rhinitis J30.9 ; Fibromyalgia M79.7 ; Actinic keratosis L57.0 ; Skin rash R21 ; Open wound of right ear, unspecified open wound type, initial encounter S01.301A ; Subacromial bursitis, right M75.51 ; GERD (gastroesophageal reflux disease) K21.9 and Chronic obstructive pulmonary disease, unspecified COPD type J44.9 [place] [address] [address] Jan, [facility] [address] [address] Jan, Essential hypertension I10 [place] [address] [address] Jan, [place] [address] [address] Jan, [place] [address] [address] Jan, [place] [id number] [place] [address] Dec, [place] [address] [address] Dec, Essential hypertension I10 [place] [address] [address] Dec, [place] [address] [address] Dec, B12 deficiency E53.8 and Essential hyper tension I10 [place] [address] [address] Dec, [place] [address] [address] Nov, Right shoulder pain M25.511 [place] [address] [address] Nov, Right shoulder pain M25.511 [place] [address] [address] Nov, Essential hypertension I10 and B12 defic iency E53.8 [place] [address] [address] Nov, Major depressive disorder, recurrent epi sode, unspecified severity F33.9 ; Anxiety F41.9 ; Chronic pain syndrome G89.4 ; Essential hypertension I10 ; Hyperlipidemia, unspecified hyperlipidemia E78.5 ; Chronic prescription opiate use Z79.899 ; Allergic rhinitis J30.9 ; B12 deficiency E53.8 and Right shoulder pain M25.511 [place] [address] [address] Oct, [place] [address] [address] 14 Oct, 2015 [place] [address] [address] Sep, [place] [address] [address] Sep, [facility] [address] [address] Aug, [facility] [address] [address] Aug, [facility] [address] [address] Aug, [facility] [address] [address] Aug, Other constipation K59.09 ; Hyperlipidem ia, unspecified hyperlipidemia E78.5 ; Essential hypertension I10 ; Primary insomnia F51.01 ; Anxiety F41.9 ; Chronic pain syndrome G89.4 ; Right shoulder pain M25.511 and Acute cystitis without hematuria N30.00 [facility] [address] [address] Jul, [facility] [address] [address] Jul, [facility] [address] [address] Jun, [facility] [address] [address] Jun, [facility] [address] [address] Jun, [facility] [address] [address] May, [facility] [address] [address] May, Other chronic pain 338.29 ; Hypertension 401.9 and Constipation due to opioid therapy 564.09 [facility] [address] [address] May, [facility] [address] [address] May, [facility] [address] [address] 17 Apr, 2015 [facility] [address] [id number] [place] [address] Apr, Unspecified essential hypertension 401.9 [facility] [address] [id number] [place] [address] 16 Apr, 2015 [facility] [address] [id number] [place] [address] Apr, [facility] [address] [id number] [place] [address] Apr, [facility] [address] [id number] [place] [address] Apr, [facility] [address] [id number] [place] [address] Apr, [facility] [address] [id number] [place] [address] Apr, [facility] [address] [id number] [place] [address] March, Unspecified essential hypertension 401.9 [facility] [address] [id number] [place] [address] March, [facility] [address] [id number] [place] [address] March, [facility] [address] [id number] [place] [address] 14 Feb, 2015 [facility] [place] [facility] [address] [id number] [place] [address] 13 Feb, 2015 [facility] [place] [facility] [address] [id number] [place] [address] Jan, [facility] [place] [facility] [address] [id number] [place] [address] Jan, [facility] [place] [facility] [address] [id number] [place] [address] 17 Jan, 2015 [facility] [address] [id number] [place] [address] Jan, 2014 [facility] [place] [facility] [address] [facility] [id number] [place] [address] Jan, [facility] [place] [facility] [address] [facility] [id number] [place] [address] Jan, [facility] [place] [facility] [address] [facility] [id number] [place] [address] Jan, [facility] [place] [facility] [address] [id number] [place] [address] 16 Dec, 2014 [facility] [place] [facility] [address] [facility] [id number] [place] [address] Dec, [facility] [place] [facility] [address] [id number] [place] [address] Dec, [facility] [place] [facility] [address] [id number] [place] [address] Nov, [facility] [place] [facility] [address] [id number] [place] [address] Nov, [facility] [place] [facility] [address] [id number] [place] [address] Oct, [facility] [place] [facility] [address] [id number] [place] [address] Oct, [facility] [place] [facility] [address] [id number] [place] [address] Oct, [facility] [place] [facility] [address] [id number] [place] [address] Oct, [facility] [place] [facility] [address] [id number] [place] [address] Oct, [facility] [place] [facility] [address] [id number] [place] [address] Oct, [facility] [place] [facility] [address] [id number] [place] [address] Oct, [facility] [place] [facility] [address] [id number] [place] [address] Oct, [facility] [place] [facility] [address] [id number] [place] [address] Sep, [facility] [place] [facility] [address] [facility] [id number] [place] [address] Sep, [facility] [place] [facility] [address] [id number] [place] [address] Sep, [facility] [place] [facility] [address] [id number] [place] [address] Sep, [facility] [place] [facility] [address] [id number] [place] [address] Sep, [facility] [place] [facility] [address] [id number] [place] [address] Sep, [facility] [place] [facility] [address] [id number] [place] [address] Aug, [facility] [place] [facility] [address] [id number] [place] [address] Aug, [facility] [place] [facility] [address] [id number] [place] [address] Aug, [facility] [place] [facility] [address] [id number] [place] [address] Aug, [facility] [place] [facility] [address] [id number] [place] [address] Aug, [facility] [place] [facility] [address] [id number] [place] [address] Aug, [facility] [place] [facility] [address] [id number] [place] [address] Aug, [facility] [place] [facility] [address] [id number] [place] [address] Aug, [facility] [place] [facility] [address] [id number] [place] [address] Aug, [facility] [place] [facility] [address] [id number] [place] [address] Aug, [facility] [place] [facility] [address] [id number] [place] [address] Jul, [facility] [place] [facility] [address] [id number] [place] [address] Jul, [facility] [place] [facility] [address] [facility] [id number] [place] [address] Jul, [facility] [place] [facility] [address] [facility] [id number] [place] [address] Jul, [facility] [place] [facility] [address] [facility] [id number] [place] [address] Jul, [facility] [address] [facility] [id number] [place] [address] Jul, [facility] [address] [id number] [place] [address] Jun, [facility] [address] [id number] [place] [address] Jun, [facility] [address] [id number] [place] [address] Jun, [facility] [address] [id number] [place] [address] Jun, [facility] [address] [id number] [place] [address] Jun, [facility] [address] [id number] [place] [address] Jun, [facility] [address] [id number] [place] [address] May, [facility] [address] [facility] [id number] [place] [address] May, [facility] [address] [facility] [id number] [place] [address] May, [facility] [address] [id number] [place] [address] May, [facility] [address] [id number] [place] [address] May, [facility] [address] [id number] [place] [address] Apr, [facility] [address] [id number] [place] [address] Apr, [facility] [address] [facility] [id number] [place] [address] Apr, [facility] [address] [facility] [id number] [place] [address] Apr, [facility] [address] [id number] [place] [address] March, [facility] [address] [id number] [place] [address] March, [facility] [facility] [address] [id number] [place] [address] March, [facility] [address] [id number] [place] [address] March, [facility] [address] [id number] [place] [address] March, [facility] [address] [facility] [id number] [place] [address] March, [facility] [address] [id number] [place] [address] Feb, [facility] [address] [id number] [place] [address] Feb, [facility] [address] [id number] [place] [address] Feb, [facility] [address] [facility] [id number] [place] [address] Feb, [facility] [address] [id number] [place] [address] Feb, [facility] [address] [id number] [place] [address] Feb, [facility] [address] [id number] [place] [address] Feb, [facility] [address] [id number] [place] [address] Feb, [facility] [address] [facility] [id number] [place] [address] Jan, [facility] [address] [id number] [place] [address] Jan, [facility] [address] [id number] [place] [address] Jan, [facility] [address] [id number] [place] [address] Jan, [facility] [address] [facility] [id number] [place] [address] Jan, [facility] [address] [id number] [place] [address] Jan, [facility] [address] [id number] [place] [address] Dec, [facility] [address] [id number] [place] [address] Dec, [facility] [address] [id number] [place] [address] Nov, [facility] [address] [id number] [place] [address] Nov, [facility] [address] [id number] [place] [address] Nov, [facility] [address] [id number] [place] [address] Nov, [facility] [address] [id number] [place] [address] Nov, [facility] [address] [id number] [place] [address] Nov, [facility] [address] [id number] [place] [address] Nov, [facility] [address] [id number] [place] [address] Nov, [facility] [address] [id number] [place] [address] Nov, [facility] [address] [id number] [place] [address] Nov, [facility] [address] [id number] [place] [address] Nov, [facility] [address] [id number] [place] [address] Nov, [facility] [address] [id number] [place] [address] Nov, [facility] [address] [id number] [place] [address] Nov, [facility] [address] [id number] [place] [address] Nov, [facility] [address] [id number] [place] [address] Oct, [facility] [address] [id number] [place] [address] Oct, [facility] [address] [id number] [place] [address] Oct, [facility] [address] [id number] [place] [address] Oct, [facility] [address] [id number] [place] [address] Oct, [facility] [address] [id number] [place] [address] Oct, [facility] [address] [id number] [place] [address] Oct, [facility] [address] [id number] [place] [address] Oct, [facility] [address] [id number] [place] [address] Oct, [facility] [address] [id number] [place] [address] Aug, [facility] [address] [facility] [id number] [place] [address] Aug, IMMUNIZATIONS No Known Immunizations SOCIAL HISTORY [...] by Dr. Troy Michelle pain specialist in [place], [place] Medical History Chronic low back pain [...]
--- OUTSIDE RECORDS SUMMARY | 2020-06-19 02:27 | XMS REPORT ---
Author Author Mahsa BUCHANAN Organization [facility] Address [address] [place] [address] Care Team Providers Care [employer] Name Role Phone BUCHANANJAG Vega Unavailable PROBLEMS Type Condition ICD9-CM Code [id number] Code Onset Dates Condition S tatus SNOMED Code Problem Chronic prescription opiate use Z79.899 Active 992266904 Problem B12 deficiency E53.8 Active 73439 4004 Problem Bilateral low back pain, with sciatica presence unspecifie d M54.5 Active 911485920 Problem CKD (chronic kidney disease) stage 3, GFR 30-59 ml/min N18.3 Active 102717642 Problem Drug induced constipation K59.03 Acti ve [id number] Problem GERD (gastroesophageal reflux disease) K21.9 Active 079438067 Problem Allergic rhinitis J30.9 Active 61 797263 Problem Chronic obstructive pulmonary disease, unspecified COPD ty pe J44.9 Active 41124827 Problem Fibromyalgia M79.7 Active 2166171 7 Problem Chronic pain syndrome G89.4 Active 250865287 Problem Primary insomnia F51.01 Active 193 072309 Problem Other constipation K59.09 Active 1 [id number] Problem Atherosclerosis of solomon co ronary artery of solomon heart without angina pectoris I25.10 Active 8763622705269 Problem Major depressive disorder, recurrent episode, un specified severity F33.9 Active 96119074 Problem Anxiety F41.9 Active 61828684 Problem Hyperlipidemia, unspecified hyperlipidemia E78.5 Active 03802262 Problem Essential hypertension I10 Active 06312212 Problem Chronic prescription benzodiazepine use Z79.899 Active 653573276 ALLERGIES No Information ENCOUNTERS Encounter Location Date Diagnosis [facility] [address] [facility] [id number] [address] [place] [address] March, [facility] [address] [facility] [id number] [address] [place] [address] Feb, Anxiety F41.9 and Chronic pa in syndrome G89.4 [place] [id number] [place] [id number] [address] [place] [address] 30 Jan, 2018 B12 deficiency E53.8 [place] [address] [place] [id number] [address] [place] [address] Jan, [place] [address] [address] Jan, Anxiety F41.9 ; Chronic pain syndrome G89.4 and Essential hypertension I10 [place] [address] [address] Jan, CKD (chronic kidney disease) stage 3, [...] of right shoulder joint M75.51 [place] [address] [address] Dec, Essential hypertension I10 [place] [address] [address] Dec, Chronic pain syndrome G89.4 [place] [address] [address] Dec, Chronic pain syndrome G89.4 [place] [address] [place] [id number] [address] [place] [address] Nov, [place] [address] [address] Nov, Chronic pain syndrome G89.4 and Anxiety F41.9 [place] [address] [address] Oct, Chronic pain syndrome G89.4 ; Other constipation K59.09 and Chronic prescription opiate use Z79.899 [place] [address] [address] Oct, Chronic pain syndrome G89.4 and Anxiety F41.9 [place] [address] [address] Sep, Essential hypertension I10 [place] [address] [address] Sep, Chronic pain syndrome G89.4 and Anxiety F41.[address] [address] Aug, Chronic pain syndrome G89.4 and Anxiety F41.9 [place] [address] [address] Jul, Essential hypertension I10 [place] [address] [address] Jul, Chronic obstructive pulmonar y disease, unspecified COPD type J44.[address] [address] Jul, Chronic pain syndrome G89.4 and Anxiety F41.9 [place] [address] [address] 13 Jul, 2017 Chronic pain syndrome G89.4 ; Essential hypertension I10 ; Fibromyalgia M79.7 ; CKD (chronic kidney disease) stage 3, GFR 30-59 ml/min N18.3 ; Subacromial bursitis, right M75.51 and Goals of care, co unseling/discussion Z71.89 [place] [address] [address] Jun, Chronic pain syndrome G89.4 and Anxiety F41.9 [place] [address] [address] May, Chronic pain syndrome G89.4 and Anxiety F41.9 [facility] [address] [id number] [address] [place] [address] Apr, Chronic pain syndrome G89.4 and Anxiety F41.9 [facility] [address] [facility] [id number] [address] [place] [address] Apr, Drug induced constipation K5 9.03 ; Chronic pain syndrome G89.4 and CKD (chronic kidney disease) stage 3, GFR 30-59 ml/min N18.3 [facility] [address] [id number] [address] [place] [address] Apr, Chronic pain syndrome G89.4 and Anxiety F41.9 [place] [address] [facility] [id number] [address] [place] [address] March, Chronic pain syndrome G89.4 and Anxiety F41.9 [place] [address] [facility] [id number] [address] [place] [address] March, Decreased GFR R94.4 [facility] [address] [facility] [id number] [address] [place] [address] Feb, [facility] [address] [facility] [id number] [address] [place] [address] Feb, Chronic pain syndrome G89.4 and Anxiety F41.9 [facility] [address] [facility] [id number] [address] [place] [address] Jan, Decreased GFR R94.4 [facility] [address] [facility] [id number] [address] [place] [address] Jan, Decreased GFR R94.4 [place] [address] [facility] [id number] [address] [place] [address] Jan, Allergic rhinitis J30.9 ; Es sential hypertension I10 ; Major depressive disorder, recurrent episode, unspecified severity F33.9 and Primary insomnia F51.01 [facility] [address] [facility] [id number] [address] [place] [address] Jan, Acute right-sided thoracic b ack pain M54.6 ; Subacromial bursitis of right shoulder joint M75.51 ; Chronic pain syndrome G89.4 and Anxiety F41.9 [facility] [address] [place] [id number] [address] [place] [address] Jan, Decreased GFR R94.4 [place] [address] [place] [id number] [place] [address] Dec, Decreased GFR R94.4 [place] [address] [place] [id number] [place] [address] Dec, Decreased GFR R94.4 [place] [address] [place] [id number] [place] [address] Dec, Decreased GFR R94.4 [place] [address] [place] [id number] [place] [address] Dec, Decreased GFR R94.4 [place] [address] [place] [id number] [place] [address] Dec, Anxiety F41.9 and Bilateral low back pain, with sciatica presence unspecified M54.5 [place] [address] [address] Dec, Need for hepatitis C screeni ng test Z11.59 ; B12 deficiency E53.8 ; Hyperlipidemia, unspecified hyperlipidemia E78.5 and Thrombocytosis D47.3 [place] [address] [place] [id number] [place] [address] Nov, Need for hepatitis C screeni ng test Z11.59 [place] [address] [address] Nov, Anxiety F41.9 and Bilateral low back pain, with sciatica presence unspecified M54.5 [place] [address] [place] [id number] [place] [address] Oct, Bilateral low back pain, wit h sciatica presence unspecified M54.5 ; Chronic prescription opiate use Z79.899 ; Anxiety F41.9 ; Essential hypertension I10 ; Hyperlipidemia, unspecified hyperlipidemia E78.5 ; Health care maintenance Z00.00 and Thrombocytosis D47.3 [facility] [address] [address] Sep, [facility] [address] [address] Sep, [place] [address] [address] Aug, [address] [address] Jul, B12 deficiency E53.8 [place] [address] [address] Jul, [address] [address] Jul, Essential hypertension I10 ; Chronic pain syndrome G89.4 ; Anxiety F41.9 ; Screening for breast cancer Z12.39 ; Atherosclerosis of solomon coronary artery of solomon heart without angina pectoris I25.10 ; Major depressive disorder, recurrent episode, unspecified severity F33.9 ; Primary insomnia F51.01 and Allergic rhinitis J30.[address] [address] Jun, [facility] [address] [address] Jun, Leg wound, right, initial en counter S81.801A and Encounter for immunization Z23 [address] [address] Jun, Open wound of right ear, uns pecified open wound type, initial encounter S01.301A [address] [address] May, B12 deficiency E53.8 [facility] [address] [facility] [id number] [address] [place] [address] May, [facility] [address] [facility] [id number] [address] [place] [address] May, [facility] [address] [facility] [id number] [address] [place] [address] May, Chronic pain syndrome G89.4 ; Chronic prescription opiate use Z79.899 ; Allergic rhinitis J30.9 ; Essential hypertension I10 and Non-healing skin lesion L98.9 [facility] [address] [facility] [id number] [address] [place] [address] Apr, [facility] [address] [facility] [id number] [address] [place] [address] March, [facility] [address] [facility] [id number] [address] [place] [address] Feb, [facility] [address] [facility] [id number] [address] [place] [address] Feb, [facility] [address] [facility] [id number] [address] [place] [address] Feb, Chronic pain syndrome G89.4 ; Anxiety F41.9 ; B12 deficiency E53.8 ; Allergic rhinitis J30.9 ; Fibromyalgia M79.7 ; Actinic keratosis L57.0 ; Skin rash R21 ; Open wound of right ear, unspecified open wound type, initial encounter S01.301A ; Subacromial bursitis, right M75.51 ; GERD (gastroesophageal reflux disease) K21.9 and Chronic obstructive pulmonary disease, unspecified COPD type J44.9 [facility] [address] [facility] [id number] [address] [place] [address] Jan, [facility] [address] [place] [id number] [address] [place] [address] Jan, Essential hypertension I10 [facility] [address] [place] [id number] [address] [place] [address] Jan, [facility] [address] [address] Jan, [facility] [address] [address] Jan, [facility] [address] [address] Dec, [facility] [address] [address] Dec, Essential hypertension I10 [place] [address] [address] Dec, [place] [address] [address] Dec, B12 deficiency E53.8 and Ess ential hypertension I10 [place] [address] [address] Dec, [facility] [address] [address] Nov, Right shoulder pain M25.511 [place] [address] [address] Nov, Right shoulder pain M25.511 [place] [address] [address] Nov, Essential hypertension I10 a nd B12 deficiency E53.8 [place] [address] [address] 14 Nov, 2015 Major depressive disorder, r ecurrent episode, unspecified severity F33.9 ; Anxiety F41.9 ; Chronic pain syndrome G89.4 ; Essential hypertension I10 ; Hyperlipidemia, unspecified hyperlipidemia E78.5 ; Chronic prescription opiate use Z79.899 ; Allergic rhinitis J30.9 ; B12 deficiency E53.8 and Right shoulder pain M25.511 [place] [address] [address] Oct, [facility] [address] [id number] [address] [place] [address] Oct, [facility] [address] [id number] [address] [place] [address] Sep, [facility] [address] [facility] [id number] [address] [place] [address] Sep, [facility] [address] [id number] [address] [place] [address] Aug, [facility] [address] [id number] [address] [place] [address] Aug, [facility] [address] [facility] [id number] [address] [place] [address] Aug, [facility] [address] [facility] [id number] [address] [place] [address] Aug, Other constipation K59.09 ; Hyperlipidemia, unspecified hyperlipidemia E78.5 ; Essential hypertension I10 ; Primary insomnia F51.01 ; Anxiety F41.9 ; Chronic pain syndrome G89.4 ; Right shoulder pain M25.511 and Acute cystitis without hematuria N30.00 [facility] [address] [facility] [id number] [address] [place] [address] 16 Jul, 2015 [facility] [address] [facility] [id number] [address] [place] [address] Jul, [facility] [address] [id number] [address] [place] [address] Jun, [facility] [address] [facility] [id number] [address] [place] [address] Jun, [facility] [address] [id number] [address] [place] [address] Jun, [facility] [address] [facility] [id number] [address] [place] [address] May, [facility] [address] [id number] [address] [place] [address] May, Other chronic pain 338.29 ; Hypertension 401.9 and Constipation due to opioid therapy 564.09 [facility] [address] [id number] [address] [place] [address] 17 May, 2015 [facility] [address] [id number] [address] [place] [address] 15 May, 2015 [facility] [address] [id number] [address] [place] [address] 17 Apr, 2015 [facility] [address] [id number] [address] [place] [address] 17 Apr, 2015 Unspecified essential hypert ension 401.9 [facility] [address] [id number] [address] [place] [address] 16 Apr, 2015 [facility] [address] [id number] [address] [place] [address] Apr, [facility] [address] [id number] [address] [place] [address] Apr, [facility] [address] [id number] [address] [place] [address] Apr, [facility] [address] [id number] [address] [place] [address] Apr, [facility] [address] [id number] [address] [place] [address] Apr, [facility] [address] [id number] [address] [place] [address] March, Unspecified essential hypert ension 401.9 [facility] [address] [id number] [address] [place] [address] March, [facility] [address] [id number] [address] [place] [address] March, [facility] [address] [id number] [address] [place] [address] Feb, [facility] [address] [id number] [address] [place] [address], [place] [address] 13 Feb, 2015 [facility] [address] [id number] [address] [place] [address], [place] [address] 23 Jan, 2015 [facility] [address] [id number] [address] [place] [address], [place] [address] Jan, [facility] [address] [id number] [address] [place] [address], [place] [address] Jan, [facility] [address] [id number] [address] [place] [address], [place] [address] Jan, [facility] [address] [id number] [address] [place] [address], [place] [address] Jan, [facility] [address] [id number] [address] [place] [address], [place] [address] Jan, [facility] [address] [id number] [address] [place] [address], [place] [address] Jan, [facility] [address] [id number] [address] [place] [address], [place] [address] 16 Dec, 2014 [facility] [address] [id number] [address] [place] [address], [place] [address] 16 Dec, 2014 [facility] [address] [id number] [address] [place] [address], [place] [address] Dec, [facility] [address] [id number] [address] [place] [address], [place] [address] Nov, [facility] [address] [id number] [address] [place] [address], [place] [address] Nov, [facility] [address] [id number] [address] [place] [address], [place] [address] Oct, [facility] [address] [id number] [address] [place] [address], [place] [address] Oct, [facility] [address] [id number] [address] [place] [address], [place] [address] Oct, [facility] [address] [id number] [address] [place] [address], [place] [address] Oct, [facility] [address] [id number] [address] [place] [address], [place] [address] Oct, [facility] [address] [id number] [address] [place] [address], [place] [address] Oct, [facility] [address] [id number] [address] [place] [address], [place] [address] Oct, [facility] [address] [id number] [address] [place] [address], [place] [address] Oct, [facility] [address] [id number] [address] [place] [address], [place] [address] Sep, [facility] [address] [id number] [address] [place] [address], [place] [address] Sep, [facility] [address] [id number] [address] [place] [address], [place] [address] Sep, [facility] [address] [id number] [address] [place] [address], [place] [address] Sep, [facility] [address] [id number] [address] [place] [address], [place] [address] Sep, [facility] [address] [id number] [address] [place] [address], [place] [address] Sep, [facility] [address] [id number] [address] [place] [address], [place] [address] Aug, [facility] [address] [id number] [address] [place] [address], [place] [address] Aug, [facility] [address] [id number] [address] [place] [address], [place] [address] Aug, [facility] [address] [id number] [address] [place] [address], [place] [address] Aug, [facility] [address] [id number] [address] [place] [address], [place] [address] Aug, [facility] [address] [id number] [address] [place] [address], [place] [address] Aug, [facility] [address] [id number] [address] [place] [address], [place] [address] Aug, [facility] [address] [id number] [address] [place] [address], [place] [address] Aug, [facility] [address] [id number] [address] [place] [address], [place] [address] Aug, [facility] [address] [id number] [address] [place] [address], [place] [address] Aug, [facility] [address] [id number] [address] [place] [address], [place] [address] Jul, [facility] [address] [id number] [address] [place] [address], [place] [address] Jul, [facility] [address] [id number] [address] [place] [address], [place] [address] Jul, [facility] [address] [id number] [address] [place] [address], [place] [address] Jul, [facility] [address] [id number] [address] [place] [address], [place] [address] Jul, [facility] [address] [id number] [address] [place] [address], [place] [address] Jul, [facility] [address] [id number] [address] [place] [address], [place] [address] Jun, [facility] [address] [id number] [address] [place] [address], [place] [address] Jun, [facility] [address] [id number] [address] [place] [address], [place] [address] Jun, [facility] [address] [id number] [address] [place] [address], [place] [address] Jun, [facility] [address] [id number] [facility] [place] [address] Jun, [facility] [address] [id number] [address] [place] [address], [place] [address] Jun, [facility] [address] [id number] [address] [place] [address], [place] [address] May, [facility] [address] [id number] [address] [place] [address], [place] [address] May, [facility] [address] [id number] [address] [place] [address], [place] [address] May, [facility] [address] [id number] [address] [place] [address], [place] [address] May, [facility] [address] [id number] [address] [place] [address], [place] [address] May, [facility] [address] [id number] [address] [place] [address], [place] [address] Apr, [facility] [address] [id number] [address] [place] [address], [place] [address] Apr, [facility] [address] [id number] [address] [place] [address], [place] [id number] Apr, [facility] [address] [id number] [address] [place] [address], [place] [address] Apr, [facility] [address] [id number] [address] [place] [address], [place] [address] March, [facility] [address] [id number] [address] [place] [address], [place] [address] March, [facility] [address] [id number] [address] [place] [address], [place] [address] March, [facility] [address] [id number] [address] [place] [address], [place] [address] March, [facility] [address] [id number] [facility] [place] [address] March, [facility] [address] [id number] [address] [place] [address], [place] [address] March, [facility] [address] [id number] [address] [place] [address], [place] [address] Feb, [facility] [address] [id number] [address] [place] [address], [place] [id number] Feb, [facility] [address] [id number] [address] [place] [address], [place] [address] Feb, [facility] [address] [id number] [address] [place] [address], [place] [address] Feb, [facility] [address] [id number] [address] [place] [address], [place] [address] Feb, [facility] [address] [id number] [address] [place] [address], [place] [address] Feb, [facility] [address] [id number] [address] [place] [address], [place] [address] Feb, [facility] [address] [id number] [address] [place] [address], [place] [address] Feb, [facility] [facility] [address] [id number] [address] [place] [address], [place] [address] Jan, [facility] [address] [id number] [address] [place] [address], [place] [address] Jan, [facility] [address] [id number] [address] [place] [address], [place] [address] Jan, [facility] [address] [id number] [address] [place] [address], [place] [address] Jan, [facility] [address] [id number] [address] [place] [address], [place] [id number] Jan, [facility] [address] [id number] [address] [place] [address], [place] [id number] Jan, [facility] [address] [id number] [facility] [place] [address] Dec, [facility] [address] [id number] [address] [place] [address], [place] [address] Dec, [facility] [address] [id number] [facility] [place] [address] Nov, [facility] [address] [id number] [address] [place] [address], [place] [address] Nov, [facility] [address] [id number] [address] [place] [address], [place] [address] Nov, [facility] [address] [id number] [address] [place] [address], [place] [id number] Nov, [facility] [address] [id number] [address] [place] [address], [place] [address] Nov, [facility] [address] [id number] [address] [place] [address], [place] [address] Nov, [facility] [address] [id number] [address] [place] [address], [place] [address] Nov, [facility] [address] [id number] [address] [place] [address], [place] [address] Nov, [facility] [address] [id number] [address] [place] [address], [place] [address] Nov, [facility] [address] [id number] [address] [place] [address], [place] [address] Nov, [facility] [address] [id number] [address] [place] [address], [place] [address] Nov, [facility] [address] [id number] [address] [place] [address], [place] [address] Nov, [facility] [address] [id number] [address] [place] [address], [place] [address] Nov, [facility] [address] [id number] [address] [place] [id number] Nov, [facility] [address] [id number] [address] [place] [id number] Nov, [facility] [address] [id number] [address] [place] [id number] Oct, [facility] [address] [id number] [address] [place] [id number] Oct, [facility] [address] [id number] [address] [place] [id number] Oct, [facility] [address] [id number] [address] [place] [id number] Oct, [facility] [address] [id number] [address] [place] [id number] Oct, [facility] [address] [id number] [address] [place] [id number] Oct, [facility] [address] [id number] [address] [place] [id number] Oct, [facility] [address] [id number] [address] [place] [id number] Oct, [facility] [address] [id number] [address] [place] [id number] Oct, [facility] [address] [id number] [address] [place] [phone] Aug, [facility] [address] [id number] [address] [place] [phone] Aug, IMMUNIZATIONS No Known Immunizations SOCIAL HISTORY Never Assessed REASON FOR VISIT Controlled Medication Refills PLAN OF CARE VITAL SIGNS MEDICATIONS Medication Instructions Dosage Frequency Start Date End Date Duration S servandous MS Contin 30 MG Orally every 12 hrs 1 tablet 12h 22 Jul, 2017 28 days Active Clonazepam 0.5 MG Orally Once a day 1 tablet as needed for anxiety 24h Feb, 28 days Active Clonazepam 1 MG Orally Once a day at HS 1 tablet Sep, Active Oxycodone HCl 10 mg Orally every 6 hrs 1 tablet as needed 6h Jul, 28 days Active MS Contin 15 mg Orally every 12 hrs 1 tablet 12h Jul, 28 days Active RESULTS No Results PROCEDURES No Known procedures INSTRUCTIONS MEDICATIONS ADMINISTERED No Known Medications MEDICAL (GENERAL) HISTORY Type Description Date Medical History hypertension Medical History asthma Medical History Arthritis Medical History Hypoglycemia Medical History Heart Cath 11/05/2013 Medical History herniated disc--Seen by Dr. Troy Michelle pain specialist in [place], [place] Medical History Chronic low back pain [...]
--- OUTSIDE RECORDS SUMMARY | 2020-06-19 02:27 | XMS REPORT ---
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 Name Role Phone ARMANDO ASHVIN Unavailable PROBLEMS Type Condition ICD9-CM Code GAY41-TH Code Onset Dates Condition S tatus SNOMED Code Problem Chronic prescription opiate use Z79.899 Active 120120379 Problem B12 deficiency E53.8 Active 95183 4004 Problem Bilateral low back pain, with sciatica presence unspecifie d M54.5 Active 139560815 Problem CKD (chronic kidney disease) stage 3, GFR 30-59 ml/min N18.3 Active 196644086 Problem Drug induced constipation K59.03 Acti ve [id number] Problem GERD (gastroesophageal reflux disease) K21.9 Active 457306538 Problem Allergic rhinitis J30.9 Active 61 315902 Problem Chronic obstructive pulmonary disease, unspecified COPD ty pe J44.9 Active 92785359 Problem Fibromyalgia M79.7 Active 0264793 7 Problem Chronic pain syndrome G89.4 Active 478309010 Problem Primary insomnia F51.01 Active 193 476092 Problem Other constipation K59.09 Active 1 [id number] Problem Atherosclerosis of alutiiq co ronary artery of alutiiq heart without angina pectoris I25.10 Active 5846184214288 Problem Major depressive disorder, recurrent episode, un specified severity F33.9 Active 51935166 Problem Anxiety F41.9 Active 27282292 Problem Hyperlipidemia, unspecified hyperlipidemia E78.5 Active 15707285 Problem Essential hypertension I10 Active 66148485 Problem Chronic prescription benzodiazepine use Z79.899 Active 910166429 ALLERGIES No Information ENCOUNTERS Encounter Location Date Diagnosis [facility] [address] [facility] [id number] [address] [place] [phone] March, [facility] [address] [facility] [id number] [address] [place] [address] Feb, Anxiety F41.9 and Chronic pa in syndrome G89.4 [facility] [id number] [place] [address] 30 Jan, 2018 B12 deficiency E53.8 [facility] [address] [place] [id number] [address] [place] [phone] Jan, [place] [address] [address] Jan, Anxiety F41.9 ; Chronic pain syndrome G89.4 and Essential hypertension I10 [place] [address] [place] [id number] [address] [place] [address] Jan, CKD (chronic kidney disease) stage 3, [...] of right shoulder joint M75.51 [place] [address] [address] 28 Dec, 2017 Essential hypertension I10 [place] [address] [address] 15 Dec, 2017 Chronic pain syndrome G89.4 [place] [address] [place] [id number] [address] [place] [address] Dec, Chronic pain syndrome G89.4 [place] [address] [place] [id number] [address] [place] [address] Nov, [place] [address] [place] [id number] [place] [address] Nov, Chronic pain syndrome G89.4 and Anxiety F41.9 [place] [address] [address] Oct, Chronic pain syndrome G89.4 ; Other constipation K59.09 and Chronic prescription opiate use Z79.899 [place] [address] [address] Oct, Chronic pain syndrome G89.4 and Anxiety F41.9 [place] [address] [place] [address] Sep, Essential hypertension I10 [place] [address] [address] 16 Sep, 2017 Chronic pain syndrome G89.4 and Anxiety F41.[address] [address] Aug, Chronic pain syndrome G89.4 and Anxiety F41.[address] [address] Jul, Essential hypertension I10 [place] [address] [address] Jul, Chronic obstructive pulmonar y disease, unspecified COPD type J44.[address] [address] Jul, Chronic pain syndrome G89.4 and Anxiety F41.[address] [address] 13 Jul, 2017 Chronic pain syndrome G89.4 ; Essential hypertension I10 ; Fibromyalgia M79.7 ; CKD (chronic kidney disease) stage 3, GFR 30-59 ml/min N18.3 ; Subacromial bursitis, right M75.51 and Goals of care, co unseling/discussion Z71.89 [place] [address] [place] [id number] [address] [place] [address] Jun, Chronic pain syndrome G89.4 and Anxiety F41.[address] [address] May, Chronic pain syndrome G89.4 and Anxiety F41.9 [facility] [address] [facility] [id number] [address] [place] [address] Apr, Chronic pain syndrome G89.4 and Anxiety F41.9 [facility] [address] [facility] [id number] [address] [place] [address] Apr, Drug induced constipation K5 9.03 ; Chronic pain syndrome G89.4 and CKD (chronic kidney disease) stage 3, GFR 30-59 ml/min N18.3 [facility] [address] [id number] [address] [place] [address] Apr, Chronic pain syndrome G89.4 and Anxiety F41.9 [facility] [address] [facility] [id number] [address] [place] [address] March, Chronic pain syndrome G89.4 and Anxiety F41.9 [place] [address] [facility] [id number] [address] [place] [address] March, Decreased GFR R94.4 [facility] [address] [facility] [id number] [address] [place] [address] Feb, [facility] [address] [facility] [id number] [address] [place] [address] Feb, Chronic pain syndrome G89.4 and Anxiety F41.9 [place] [id number] [facility] [id number] [address] [place] [address] Jan, Decreased GFR R94.4 [place] [id number] [facility] [id number] [address] [place] [address] Jan, Decreased GFR R94.4 [place] [address] [facility] [id number] [address] [place] [address] Jan, Allergic rhinitis J30.9 ; Es sential hypertension I10 ; Major depressive disorder, recurrent episode, unspecified severity F33.9 and Primary insomnia F51.01 [facility] [address] [facility] [id number] [address] [place] [address] Jan, Acute right-sided thoracic b ack pain M54.6 ; Subacromial bursitis of right shoulder joint M75.51 ; Chronic pain syndrome G89.4 and Anxiety F41.9 [facility] [address] [facility] [id number] [address] [place] [address] Jan, Decreased GFR R94.4 [facility] [address] [facility] [id number] [address] [place] [address] Dec, Decreased GFR R94.4 [place] [address] [facility] [id number] [address] [place] [address] Dec, Decreased GFR R94.4 [place] [address] [facility] [id number] [address] [place] [address] Dec, Decreased GFR R94.4 [place] [address] [facility] [id number] [address] [place] [address] Dec, Decreased GFR R94.4 [place] [address] [facility] [id number] [address] [place] [address] Dec, Anxiety F41.9 and Bilateral low back pain, with sciatica presence unspecified M54.5 [place] [address] [place] [id number] [address] [place] [address] Dec, Need for hepatitis C screeni ng test Z11.59 ; B12 deficiency E53.8 ; Hyperlipidemia, unspecified hyperlipidemia E78.5 and Thrombocytosis D47.3 [place] [address] [facility] [id number] [address] [place] [address] Nov, Need for hepatitis C screeni ng test Z11.59 [place] [address] [place] [id number] [address] [place] [address] Nov, Anxiety F41.9 and Bilateral low back pain, with sciatica presence unspecified M54.5 [place] [address] [place] [id number] [address] [place] [address] Oct, Bilateral low back pain, wit h sciatica presence unspecified M54.5 ; Chronic prescription opiate use Z79.899 ; Anxiety F41.9 ; Essential hypertension I10 ; Hyperlipidemia, unspecified hyperlipidemia E78.5 ; Health care maintenance Z00.00 and Thrombocytosis D47.3 [facility] [address] [address] Sep, [facility] [address] [address] Sep, [place] [address] [address] Aug, [address] [address] Jul, B12 deficiency E53.8 [place] [address] [address] Jul, [address] [address] Jul, Essential hypertension I10 ; Chronic pain syndrome G89.4 ; Anxiety F41.9 ; Screening for breast cancer Z12.39 ; Atherosclerosis of alutiiq coronary artery of alutiiq heart without angina pectoris I25.10 ; Major depressive disorder, recurrent episode, unspecified severity F33.9 ; Primary insomnia F51.01 and Allergic rhinitis J30.[address] [address] Jun, [facility] [address] [address] Jun, Leg wound, right, initial en counter S81.801A and Encounter for immunization Z23 [address] [address] Jun, Open wound of right ear, uns pecified open wound type, initial encounter S01.301A [address] [address] May, B12 deficiency E53.8 [facility] [address] [facility] [id number] [address] [place] [address] May, [facility] [address] [facility] [id number] [address] [place] [address] May, [facility] [address] [facility] [id number] [address] [place] [address] May, Chronic pain syndrome G89.4 ; Chronic prescription opiate use Z79.899 ; Allergic rhinitis J30.9 ; Essential hypertension I10 and Non-healing skin lesion L98.9 [facility] [address] [facility] [id number] [address] [place] [address] Apr, [facility] [address] [facility] [id number] [address] [place] [phone] March, [facility] [address] [facility] [id number] [address] [place] [address] Feb, [facility] [address] [facility] [id number] [address] [place] [address] Feb, [facility] [address] [facility] [id number] [address] [place] [address] Feb, Chronic pain syndrome G89.4 ; Anxiety F41.9 ; B12 deficiency E53.8 ; Allergic rhinitis J30.9 ; Fibromyalgia M79.7 ; Actinic keratosis L57.0 ; Skin rash R21 ; Open wound of right ear, unspecified open wound type, initial encounter S01.301A ; Subacromial bursitis, right M75.51 ; GERD (gastroesophageal reflux disease) K21.9 and Chronic obstructive pulmonary disease, unspecified COPD type J44.9 [facility] [address] [facility] [id number] [address] [place] [address] Jan, [facility] [address] [facility] [id number] [address] [place] [address] Jan, Essential hypertension I10 [facility] [address] [place] [id number] [address] [place] [address] Jan, [facility] [address] [facility] [id number] [address] [place] [address] Jan, [facility] [address] [address] Jan, [facility] [address] [facility] [id number] [address] [address] Dec, [facility] [address] [address] Dec, Essential hypertension I10 [facility] [address] [address] Dec, [place] [address] [address] Dec, B12 deficiency E53.8 and Ess ential hypertension I10 [place] [address] [address] Dec, [facility] [address] [address] Nov, Right shoulder pain M25.511 [place] [address] [address] Nov, Right shoulder pain M25.511 [place] [address] [address] Nov, Essential hypertension I10 a nd B12 deficiency E53.8 [place] [address] [place] [id number] [address] [place] [address] 14 Nov, 2015 Major depressive disorder, r ecurrent episode, unspecified severity F33.9 ; Anxiety F41.9 ; Chronic pain syndrome G89.4 ; Essential hypertension I10 ; Hyperlipidemia, unspecified hyperlipidemia E78.5 ; Chronic prescription opiate use Z79.899 ; Allergic rhinitis J30.9 ; B12 deficiency E53.8 and Right shoulder pain M25.511 [place] [address] [place] [id number] [address] [place] [address] Oct, [facility] [address] [id number] [address] [place] [address] Oct, [facility] [address] [id number] [address] [place] [address] Sep, [facility] [address] [id number] [address] [place] [address] Sep, [facility] [address] [id number] [address] [place] [address] Aug, [facility] [address] [id number] [address] [place] [address] Aug, [facility] [address] [facility] [id number] [address] [place] [address] Aug, [facility] [address] [facility] [id number] [address] [place] [address] Aug, Other constipation K59.09 ; Hyperlipidemia, unspecified hyperlipidemia E78.5 ; Essential hypertension I10 ; Primary insomnia F51.01 ; Anxiety F41.9 ; Chronic pain syndrome G89.4 ; Right shoulder pain M25.511 and Acute cystitis without hematuria N30.00 [facility] [address] [facility] [id number] [address] [place] [address] Jul, [facility] [address] [id number] [address] [place] [phone] Jul, [facility] [address] [id number] [address] [place] [address] Jun, [facility] [address] [id number] [address] [place] [address] Jun, [facility] [address] [id number] [address] [place] [address] Jun, [facility] [address] [facility] [id number] [address] [place] [address] May, [facility] [address] [id number] [address] [place] [address] May, Other chronic pain 338.29 ; Hypertension 401.9 and Constipation due to opioid therapy 564.09 [facility] [address] [id number] [address] [place] [address] 17 May, 2015 [facility] [address] [id number] [address] [place] [address] May, [facility] [address] [id number] [address] [place] [address] 17 Apr, 2015 [facility] [address] [id number] [address] [place] [id number] 17 Apr, 2015 Unspecified essential hypert ension 401.9 [facility] [address] [id number] [address] [place] [address] 16 Apr, 2015 [facility] [address] [id number] [address] [place] [phone] Apr, [facility] [address] [id number] [address] [place] [phone] Apr, [facility] [address] [id number] [address] [place] [phone] Apr, [facility] [address] [id number] [address] [place] [phone] Apr, [facility] [address] [id number] [address] [place] [phone] Apr, [facility] [address] [id number] [address] [place] [phone] March, Unspecified essential hypert ension 401.9 [facility] [address] [id number] [address] [place] [address] March, [facility] [address] [id number] [address] [place] [phone] March, [facility] [address] [id number] [address] [place] [phone] 14 Feb, 2015 [facility] [address] [id number] [address] [place] [address], [place] [address] Feb, [facility] [address] [id number] [address] [place] [address], [place] [address] Jan, [facility] [address] [id number] [address] [place] [address], [place] [address] Jan, [facility] [address] [id number] [address] [place] [address], [place] [address] Jan, [facility] [address] [id number] [address] [place] [address], [place] [address] 17 Jan, 2015 [facility] [address] [id number] [address] [place] [address], [place] [address] Jan, [facility] [address] [id number] [address] [place] [address], [place] [address] Jan, [facility] [address] [id number] [address] [place] [address], [place] [address] Jan, [facility] [address] [id number] [address] [place] [address], [place] [address] 16 Dec, 2014 [facility] [address] [id number] [address] [place] [address], [place] [address] 16 Dec, 2014 [facility] [address] [id number] [address] [place] [address], [place] [address] Dec, [facility] [address] [id number] [address] [place] [address], [place] [address] Nov, [facility] [address] [id number] [address] [place] [address], [place] [address] Nov, [facility] [address] [id number] [address] [place] [address], [place] [address] Oct, [facility] [address] [id number] [address] [place] [address], [place] [address] Oct, [facility] [address] [id number] [address] [place] [address], [place] [address] Oct, [facility] [address] [id number] [address] [place] [address], [place] [address] Oct, [facility] [address] [id number] [address] [place] [address], [place] [address] Oct, [facility] [address] [id number] [address] [place] [address], [place] [address] Oct, [facility] [address] [id number] [address] [place] [address], [place] [address] Oct, [facility] [address] [id number] [address] [place] [address], [place] [address] Oct, [facility] [address] [id number] [address] [place] [address], [place] [address] Sep, [facility] [address] [id number] [address] [place] [address], [place] [address] Sep, [facility] [address] [id number] [address] [place] [address], [place] [address] Sep, [facility] [address] [id number] [address] [place] [address], [place] [address] Sep, [facility] [address] [id number] [address] [place] [address], [place] [address] Sep, [facility] [address] [id number] [address] [place] [address], [place] [address] Sep, [facility] [address] [id number] [address] [place] [address], [place] [address] Aug, [facility] [address] [id number] [address] [place] [address], [place] [address] Aug, [facility] [address] [id number] [address] [place] [address], [place] [address] Aug, [facility] [address] [id number] [address] [place] [address], [place] [address] Aug, [facility] [address] [id number] [address] [place] [address], [place] [address] Aug, [facility] [address] [id number] [address] [place] [address], [place] [address] Aug, [facility] [address] [id number] [address] [place] [address], [place] [address] Aug, [facility] [address] [id number] [address] [place] [address], [place] [address] Aug, [facility] [address] [id number] [address] [place] [address], [place] [address] Aug, [facility] [address] [id number] [address] [place] [address], [place] [address] Aug, [facility] [address] [id number] [address] [place] [address], [place] [address] Jul, [facility] [address] [id number] [address] [place] [address], [place] [address] Jul, [facility] [address] [id number] [address] [place] [address], [place] [address] Jul, [facility] [address] [id number] [address] [place] [address], [place] [address] Jul, [facility] [address] [id number] [address] [place] [address], [place] [address] Jul, [facility] [address] [id number] [address] [place] [address], [place] [address] Jul, [facility] [address] [id number] [address] [place] [address], [place] [address] Jun, [facility] [address] [id number] [address] [place] [address], [place] [id number] Jun, [facility] [address] [id number] [address] [place] [address], [place] [address] Jun, [facility] [address] [id number] [address] [place] [address], [place] [address] Jun, [facility] [address] [id number] [address] [place] [address], [place] [address] Jun, [facility] [address] [id number] [address] [place] [address], [place] [address] Jun, [facility] [address] [id number] [address] [place] [address], [place] [address] May, [facility] [address] [id number] [address] [place] [address], [place] [address] May, [facility] [address] [id number] [address] [place] [address], [place] [address] May, [facility] [address] [id number] [address] [place] [address], [place] [address] May, [facility] [address] [id number] [address] [place] [address], [place] [address] May, [facility] [address] [id number] [address] [place] [address], [place] [address] Apr, [facility] [address] [id number] [address] [place] [address], [place] [address] Apr, [facility] [address] [id number] [address] [place] [address], [place] [address] Apr, [facility] [address] [id number] [address] [place] [address], [place] [address] Apr, [facility] [address] [id number] [address] [place] [address], [place] [address] March, [facility] [address] [id number] [address] [place] [address], [place] [address] March, [facility] [address] [id number] [address] [place] [address], [place] [address] March, [facility] [address] [id number] [address] [place] [address], [place] [id number] March, [facility] [address] [id number] [address] [place] [address] March, [facility] [address] [id number] [address] [place] [address] March, [facility] [address] [id number] [address] [place] [address] Feb, [facility] [address] [id number] [address] [place] [address], [place] [address] Feb, [facility] [address] [id number] [address] [place] [address] Feb, [facility] [address] [id number] [address] [place] [address], [place] [address] Feb, [facility] [address] [id number] [address] [place] [address], [place] [address] Feb, [facility] [address] [id number] [address] [place] [address], [place] [address] Feb, [facility] [address] [id number] [address] [place] [address], [place] [address] Feb, [facility] [address] [id number] [address] [place] [address], [place] [address] Feb, [facility] [address] [id number] [address] [place] [address], [place] [address] Jan, [facility] [address] [id number] [address] [place] [address], [place] [address] Jan, [facility] [address] [id number] [address] [place] [address], [place] [address] Jan, [facility] [address] [id number] [address] [place] [address], [place] [address] Jan, [facility] [address] [id number] [address] [place] [address], [place] [address] 04 Jan, 2014 [facility] [address] [id number] [address] [place] [address], [place] [address] Jan, [facility] [address] [id number] [address] [place] [address] Dec, [facility] [address] [id number] [address] [place] [address], [place] [address] Dec, [facility] [address] [id number] [address] [place] [address], [place] [address] Nov, [facility] [address] [id number] [address] [place] [address], [place] [address] Nov, [facility] [address] [id number] [address] [place] [address], [place] [address] Nov, [facility] [address] [id number] [address] [place] [address], [place] [address] Nov, [facility] [address] [id number] [address] [place] [address], [place] [address] Nov, [facility] [address] [id number] [address] [place] [address], [place] [address] Nov, [facility] [address] [id number] [address] [place] [address], [place] [address] Nov, [facility] [address] [id number] [address] [place] [address], [place] [address] Nov, [facility] [address] [id number] [address] [place] [address], [place] [address] Nov, [facility] [address] [id number] [address] [place] [address], [place] [address] Nov, [facility] [address] [id number] [address] [place] [address], [place] [address] Nov, [facility] [address] [id number] [address] [place] [address], [place] [address] Nov, [facility] [address] [id number] [address] [place] [address], [place] [address] Nov, [facility] [address] [id number] [address] [place] [id number] Nov, [facility] [address] [id number] [address] [place] [id number] Nov, [facility] [address] [id number] [address] [place] [id number] Oct, [facility] [address] [id number] [address] [place] [phone] Oct, [facility] [address] [id number] [address] [place] [phone] Oct, [facility] [address] [id number] [address] [place] [phone] Oct, [facility] [address] [id number] [address] [place] [id number] Oct, [facility] [address] [id number] [address] [place] [phone] Oct, [facility] [address] [id number] [address] [place] [phone] Oct, [facility] [address] [id number] [address] [place] [phone] Oct, [facility] [address] [id number] [address] [place] [phone] Oct, [facility] [address] [id number] [address] [place] [phone] Aug, [facility] [address] [id number] [address] [place] [phone] Aug, IMMUNIZATIONS No Known Immunizations SOCIAL HISTORY Never Assessed REASON FOR VISIT Refill Request PLAN OF CARE VITAL SIGNS MEDICATIONS Medication Instructions Dosage Frequency Start Date End Date Duration S tatus ProAir HFA 108 (90 Base) MCG/ACT Inhalation every 4 hrs 2 puffs as needed Jul, Active RESULTS No Results PROCEDURES No Known procedures INSTRUCTIONS MEDICATIONS ADMINISTERED No Known Medications MEDICAL (GENERAL) HISTORY Type Description Date Medical History hypertension Medical History asthma Medical History Arthritis Medical History Hypoglycemia Medical History Heart Cath 11/05/2013 Medical History herniated disc--Seen by Dr. Troy Michelle pain specialist in [place], [place] Medical History Chronic low back pain [...]
--- OUTSIDE RECORDS SUMMARY | 2020-06-19 02:27 | XMS REPORT ---
Author Author Mahsa ROBERTS [facility] Address [address] [place] [address] Care Team Providers Care Cryptologic Linguist Name Role Phone ARMANDO ASHVIN Unavailable PROBLEMS Type Condition ICD9-CM Code FKO02-ZG Code Onset Dates Condition S tatus SNOMED Code Problem Chronic prescription opiate use Z79.899 Active 111555546 Problem B12 deficiency E53.8 Active 04333 4004 Problem Bilateral low back pain, with sciatica presence unspecifie d M54.5 Active 203127730 Problem CKD (chronic kidney disease) stage 3, GFR 30-59 ml/min N18.3 Active 488115500 Problem Drug induced constipation K59.03 Acti ve [id number] Problem GERD (gastroesophageal reflux disease) K21.9 Active 063097128 Problem Allergic rhinitis J30.9 Active 61 132543 Problem Chronic obstructive pulmonary disease, unspecified COPD ty pe J44.9 Active 50814533 Problem Fibromyalgia M79.7 Active 0294051 7 Problem Chronic pain syndrome G89.4 Active 092834013 Problem Primary insomnia F51.01 Active 193 629342 Problem Other constipation K59.09 Active 1 [id number] Problem Atherosclerosis of [place] co ronary artery of [place] heart without angina pectoris I25.10 Active 0795510819576 Problem Major depressive disorder, recurrent episode, un specified severity F33.9 Active 05193042 Problem Anxiety F41.9 Active 96096443 Problem Hyperlipidemia, unspecified hyperlipidemia E78.5 Active 20556293 Problem Essential hypertension I10 Active 52675751 Problem Chronic prescription benzodiazepine use Z79.899 Active 410395923 ALLERGIES Substance Reaction Event Type Date Status Lyrica throat swelling Drug Allergy Oct, Active Flagyl throat swelling Drug Allergy Oct, Active Lisinopril 20 Mg Tablet Headache Non Drug Allergy Oct, Active ENCOUNTERS Encounter Location Date Diagnosis [facility] [address] [facility] [id number] [place] [address] Apr, [place] [address] [place] [id number] [address] [place] [address] Apr, [place] [address] [place] [id number] [place] [address] March, Anxiety F41.9 and Chronic pa in syndrome G89.4 [place] [address] [address] March, CKD (chronic kidney disease) stage 3, GFR 30-59 ml/min N18.3 ; B12 deficiency E53.8 and Hyperlipidemia, unspecified hyperlipidemia E78.5 [place] [address] [place] [id number] [place] [address] March, Anxiety F41.9 and Chronic pa in syndrome G89.4 [place] [address] [address] Feb, Anxiety F41.9 and Chronic pa in syndrome G89.4 [place] [id number] [place] [address] Jan, B12 deficiency E53.8 [place] [address] [place] [id number] [place] [address] Jan, [place] [address] [address] Jan, Anxiety F41.9 ; Chronic pain syndrome G89.4 and Essential hypertension I10 [place] [address] [place] [id number] [address] [place] [address] Jan, CKD (chronic kidney disease) stage 3, [...] bursitis of right shoulder joint M75.51 [facility] [address] [id number] [address] [place] [address] Dec, Essential hypertension I10 [facility] [address] [id number] [address] [place] [id number] 15 Dec, 2017 Chronic pain syndrome G89.4 [facility] [address] [facility] [id number] [address] [place] [address] Dec, Chronic pain syndrome G89.4 [facility] [address] [facility] [id number] [address] [place] [address] Nov, [facility] [address] [facility] [id number] [address] [place] [address] Nov, Chronic pain syndrome G89.4 and Anxiety F41.9 [facility] [address] [facility] [id number] [address] [place] [address] Oct, Chronic pain syndrome G89.4 ; Other constipation K59.09 and Chronic prescription opiate use Z79.899 [facility] [address] [facility] [id number] [address] [place] [address] Oct, Chronic pain syndrome G89.4 and Anxiety F41.9 [facility] [address] [facility] [id number] [address] [place] [address] Sep, Essential hypertension I10 [facility] [address] [id number] [address] [place] [address] 16 Sep, 2017 Chronic pain syndrome G89.4 and Anxiety F41.9 [facility] [address] [id number] [address] [place] [address] Aug, Chronic pain syndrome G89.4 and Anxiety F41.9 [facility] [address] [facility] [id number] [address] [place] [address] Jul, Essential hypertension I10 [facility] [address] [facility] [id number] [address] [place] [address] Jul, Chronic obstructive pulmonar y disease, unspecified COPD type J44.9 [place] [id number] [facility] [id number] [address] [place] [address] Jul, Chronic pain syndrome G89.4 and Anxiety F41.9 [place] [address] [place] [id number] [address] [place] [address] Jul, Chronic pain syndrome G89.4 ; Essential hypertension I10 ; Fibromyalgia M79.7 ; CKD (chronic kidney disease) stage 3, GFR 30-59 ml/min N18.3 ; Subacromial bursitis, right M75.51 and Goals of care, co unseling/discussion Z71.89 [place] [address] [place] [id number] [place] [address] Jun, Chronic pain syndrome G89.4 and Anxiety F41.9 [place] [address] [place] [id number] [address] [place] [address] May, Chronic pain syndrome G89.4 and Anxiety F41.9 [place] [address] [place] [id number] [place] [address] Apr, Chronic pain syndrome G89.4 and Anxiety F41.9 [place] [address] [place] [id number] [place] [address] Apr, Drug induced constipation K5 9.03 ; Chronic pain syndrome G89.4 and CKD (chronic kidney disease) stage 3, GFR 30-59 ml/min N18.3 [place] [address] [facility] [id number] [address] [place] [address] Apr, Chronic pain syndrome G89.4 and Anxiety F41.9 [place] [address] [place] [id number] [address] [place] [address] March, Chronic pain syndrome G89.4 and Anxiety F41.9 [place] [address] [place] [id number] [address] [place] [address] March, Decreased GFR R94.4 [place] [address] [facility] [id number] [address] [place] [address] Feb, [facility] [address] [place] [id number] [address] [place] [address] Feb, Chronic pain syndrome G89.4 and Anxiety F41.9 [facility] [address] [place] [id number] [address] [place] [address] Jan, Decreased GFR R94.4 [facility] [address] [facility] [id number] [address] [place] [address] Jan, Decreased GFR R94.4 [facility] [address] [place] [id number] [place] [address] Jan, Allergic rhinitis J30.9 ; Es sential hypertension I10 ; Major depressive disorder, recurrent episode, unspecified severity F33.9 and Primary insomnia F51.01 [facility] [address] [place] [id number] [address] [place] [address] Jan, Acute right-sided thoracic b ack pain M54.6 ; Subacromial bursitis of right shoulder joint M75.51 ; Chronic pain syndrome G89.4 and Anxiety F41.9 [facility] [address] [place] [id number] [address] [place] [address] Jan, Decreased GFR R94.4 [facility] [address] [place] [id number] [address] [place] [address] Dec, Decreased GFR R94.4 [facility] [address] [place] [id number] [address] [place] [address] Dec, Decreased GFR R94.4 [facility] [address] [place] [id number] [address] [place] [address] Dec, Decreased GFR R94.4 [facility] [address] [place] [id number] [address] [place] [address] Dec, Decreased GFR R94.4 [facility] [address] [place] [id number] [address] [place] [address] Dec, Anxiety F41.9 and Bilateral low back pain, with sciatica presence unspecified M54.5 [place] [address] [address] Dec, Thrombocytosis D47.3 ; Hyper lipidemia, unspecified hyperlipidemia E78.5 ; Need for hepatitis C screening test Z11.59 and B12 deficiency E53.8 [place] [address] [address] Nov, Need for hepatitis C screeni ng test Z11.59 [place] [address] [address] Nov, Anxiety F41.9 and Bilateral low back pain, with sciatica presence unspecified M54.5 [place] [address] [address] Oct, Bilateral low back pain, wit h sciatica presence unspecified M54.5 ; Chronic prescription opiate use Z79.899 ; Anxiety F41.9 ; Essential hypertension I10 ; Hyperlipidemia, unspecified hyperlipidemia E78.5 ; Health care maintenance Z00.00 and Thrombocytosis D47.3 [place] [address] [address] Sep, [place] [address] [address] Sep, [place] [address] [address] Aug, [place] [address] [address] Jul, B12 deficiency E53.8 [place] [address] [address] Jul, [place] [address] [address] Jul, Essential hypertension I10 ; Chronic pain syndrome G89.4 ; Anxiety F41.9 ; Screening for breast cancer Z12.39 ; Atherosclerosis of [place] coronary artery of [place] heart without angina pectoris I25.10 ; Major depressive disorder, recurrent episode, unspecified severity F33.9 ; Primary insomnia F51.01 and Allergic rhinitis J30.9 [facility] [address] [facility] [id number] [address] [place] [address] Jun, [facility] [address] [facility] [id number] [address] [place] [address] Jun, Leg wound, right, initial en counter S81.801A and Encounter for immunization Z23 [facility] [address] [facility] [id number] [address] [place] [address] Jun, Open wound of right ear, uns pecified open wound type, initial encounter S01.301A [facility] [address] [facility] [id number] [address] [place] [address] May, B12 deficiency E53.8 [facility] [address] [facility] [id number] [address] [place] [address] May, [facility] [address] [facility] [id number] [address] [place] [address] May, [facility] [address] [facility] [id number] [address] [place] [address] May, Chronic pain syndrome G89.4 ; Chronic prescription opiate use Z79.899 ; Allergic rhinitis J30.9 ; Essential hypertension I10 and Non-healing skin lesion L98.9 [facility] [address] [facility] [id number] [address] [place] [address] Apr, [facility] [address] [facility] [id number] [address] [place] [address] March, [facility] [address] [facility] [id number] [address] [place] [address] Feb, [facility] [address] [facility] [id number] [address] [place] [address] Feb, [facility] [address] [place] [id number] [address] [place] [address] Feb, Chronic pain syndrome G89.4 ; Anxiety F41.9 ; B12 deficiency E53.8 ; Allergic rhinitis J30.9 ; Fibromyalgia M79.7 ; Actinic keratosis L57.0 ; Skin rash R21 ; Open wound of right ear, unspecified open wound type, initial encounter S01.301A ; Subacromial bursitis, right M75.51 ; GERD (gastroesophageal reflux disease) K21.9 and Chronic obstructive pulmonary disease, unspecified COPD type J44.9 [facility] [address] [address] Jan, [facility] [address] [address] Jan, Essential hypertension I10 [facility] [address] [address] Jan, [facility] [address] [address] Jan, [facility] [address] [address] Jan, [facility] [address] [address] Dec, [facility] [address] [address] Dec, Essential hypertension I10 [facility] [address] [place] [id number] [address] [place] [address] Dec, [facility] [address] [address] Dec, B12 deficiency E53.8 and Ess ential hypertension I10 [facility] [address] [place] [id number] [place] [address] Dec, [facility] [address] [address] Nov, Right shoulder pain M25.511 [place] [address] [address] Nov, Right shoulder pain M25.511 [facility] [address] [address] Nov, Essential hypertension I10 a nd B12 deficiency E53.8 [place] [address] [address] 14 Nov, 2015 Major depressive disorder, r ecurrent episode, unspecified severity F33.9 ; Anxiety F41.9 ; Chronic pain syndrome G89.4 ; Essential hypertension I10 ; Hyperlipidemia, unspecified hyperlipidemia E78.5 ; Chronic prescription opiate use Z79.899 ; Allergic rhinitis J30.9 ; B12 deficiency E53.8 and Right shoulder pain M25.511 [place] [address] [address] Oct, [place] [address] [address] Oct, [place] [address] [address] Sep, [place] [address] [address] Sep, [facility] [address] [address] Aug, [facility] [address] [address] Aug, [facility] [address] [address] Aug, [facility] [address] [address] Aug, Other constipation K59.09 ; Hyperlipidemia, unspecified hyperlipidemia E78.5 ; Essential hypertension I10 ; Primary insomnia F51.01 ; Anxiety F41.9 ; Chronic pain syndrome G89.4 ; Right shoulder pain M25.511 and Acute cystitis without hematuria N30.00 [facility] [address] [facility] [id number] [address] [place] [address] 16 Jul, 2015 [facility] [address] [facility] [id number] [address] [place] [address] Jul, [facility] [address] [facility] [id number] [place] [address] Jun, [facility] [address] [id number] [place] [address] Jun, [facility] [address] [place] [id number] [place] [address] Jun, [facility] [address] [place] [id number] [place] [address] May, [facility] [address] [place] [id number] [place] [address] May, Other chronic pain 338.29 ; Hypertension 401.9 and Constipation due to opioid therapy 564.09 [facility] [address] [place] [id number] [place] [address] May, [facility] [address] [facility] [id number] [address] [place] [address] May, [facility] [address] [place] [id number] [address] [place] [address] Apr, [facility] [address] [facility] [id number] [address] [place] [address] Apr, Unspecified essential hypert ension 401.9 [facility] [address] [place] [id number] [address] [place] [address] Apr, [facility] [address] [facility] [id number] [address] [place] [address] Apr, [facility] [address] [place] [id number] [place] [address] 16 Apr, 2015 [facility] [address] [id number] [address] [place] [address], [place] [address] 16 Apr, 2015 [facility] [address] [id number] [address] [place] [address] Apr, [facility] [address] [id number] [address] [place] [address] Apr, [facility] [address] [id number] [address] [place] [address] March, Unspecified essential hypert ension 401.9 [facility] [address] [id number] [address] [place] [address] March, [facility] [address] [id number] [address] [place] [address] March, [facility] [address] [id number] [address] [place] [address] Feb, [facility] [address] [id number] [address] [place] [address] Feb, [facility] [address] [id number] [address] [place] [address], [place] [address] Jan, [facility] [address] [id number] [address] [place] [address] 23 Jan, 2015 [facility] [address] [id number] [address] [place] [address], [place] [address] 17 Jan, 2015 [facility] [address] [id number] [address] [place] [id number] 17 Jan, 2015 [facility] [address] [id number] [address] [place] [id number] 13 Jan, 2015 [facility] [address] [id number] [address] [place] [phone] Jan, [facility] [address] [id number] [address] [place] [phone] Jan, [facility] [address] [id number] [address] [place] [address], [place] [address] 16 Dec, 2014 [facility] [address] [id number] [address] [place] [address], [place] [address] 16 Dec, 2014 [facility] [address] [id number] [address] [place] [address], [place] [address] Dec, [facility] [address] [id number] [address] [place] [address], [place] [address] Nov, [facility] [address] [id number] [address] [place] [address], [place] [address] Nov, [facility] [address] [id number] [address] [place] [address], [place] [address] Oct, [facility] [address] [id number] [address] [place] [address], [place] [address] Oct, [facility] [address] [id number] [address] [place] [address], [place] [address] Oct, [facility] [address] [id number] [address] [place] [address], [place] [address] Oct, [facility] [address] [id number] [address] [place] [address], [place] [address] Oct, [facility] [address] [id number] [address] [place] [address], [place] [address] Oct, [facility] [address] [id number] [address] [place] [address], [place] [address] Oct, [facility] [address] [id number] [address] [place] [address], [place] [address] Oct, [facility] [address] [id number] [address] [place] [address], [place] [address] Sep, [facility] [address] [id number] [address] [place] [address], [place] [address] Sep, [facility] [address] [id number] [address] [place] [address], [place] [address] Sep, [facility] [address] [id number] [address] [place] [address], [place] [address] Sep, [facility] [address] [id number] [address] [place] [address], [place] [address] Sep, [facility] [address] [id number] [address] [place] [address], [place] [address] Sep, [facility] [address] [id number] [address] [place] [address], [place] [address] Aug, [facility] [address] [id number] [address] [place] [address], [place] [address] Aug, [facility] [address] [id number] [address] [place] [address], [place] [address] Aug, [facility] [address] [id number] [address] [place] [address], [place] [address] Aug, [facility] [address] [id number] [address] [place] [address], [place] [address] Aug, [facility] [address] [id number] [address] [place] [address], [place] [address] Aug, [facility] [address] [id number] [address] [place] [address], [place] [address] Aug, [facility] [address] [id number] [address] [place] [address], [place] [address] Aug, [facility] [address] [id number] [address] [place] [address], [place] [address] Aug, [facility] [address] [id number] [address] [place] [address], [place] [address] Aug, [facility] [address] [id number] [address] [place] [address], [place] [address] Jul, [facility] [address] [id number] [address] [place] [address], [place] [address] Jul, [facility] [address] [id number] [address] [place] [address] Jul, [facility] [address] [id number] [facility] [place] [address] Jul, [facility] [address] [id number] [facility] [place] [address] Jul, [facility] [address] [id number] [facility] [place] [address] Jul, [facility] [address] [id number] [address] [place] [address] Jun, [facility] [address] [id number] [facility] [place] [address] Jun, [facility] [address] [id number] [address] [place] [address], [place] [address] Jun, [facility] [address] [id number] [address] [place] [address], [place] [address] Jun, [facility] [address] [id number] [address] [place] [address], [place] [address] Jun, [facility] [address] [id number] [address] [place] [address], [place] [address] Jun, [facility] [address] [id number] [address] [place] [address], [place] [address] May, [facility] [address] [id number] [address] [place] [address], [place] [address] May, [facility] [address] [id number] [address] [place] [address], [place] [address] May, [facility] [address] [id number] [address] [place] [address], [place] [address] May, [facility] [address] [id number] [address] [place] [address], [place] [address] May, [facility] [address] [id number] [address] [place] [address], [place] [address] Apr, [facility] [address] [id number] [address] [place] [address] Apr, [facility] [address] [id number] [address] [place] [address], [place] [address] Apr, [facility] [address] [id number] [address] [place] [address], [place] [address] Apr, [facility] [address] [id number] [address] [place] [address], [place] [address] March, [facility] [address] [id number] [address] [place] [address], [place] [address] March, [facility] [address] [id number] [address] [place] [address], [place] [address] March, [facility] [address] [id number] [address] [place] [address], [place] [address] March, [facility] [address] [id number] [address] [place] [address], [place] [address] March, [facility] [address] [id number] [address] [place] [address], [place] [address] March, [facility] [address] [id number] [address] [place] [address], [place] [address] Feb, [facility] [address] [id number] [address] [place] [address], [place] [address] Feb, [facility] [address] [id number] [address] [place] [address], [place] [address] Feb, [facility] [address] [id number] [address] [place] [address], [place] [address] Feb, [facility] [address] [id number] [address] [place] [address], [place] [address] Feb, [facility] [address] [id number] [address] [place] [address], [place] [address] Feb, [facility] [address] [id number] [facility] [place] [address] Feb, [facility] [address] [id number] [address] [place] [address], [place] [address] Feb, [facility] [address] [id number] [facility] [place] [address] Jan, [facility] [address] [id number] [address] [place] [address], [place] [address] Jan, [facility] [address] [id number] [address] [place] [address], [place] [address] Jan, [facility] [address] [id number] [address] [place] [address], [place] [address] Jan, [facility] [address] [id number] [address] [place] [address], [place] [address] Jan, [facility] [address] [id number] [address] [place] [address], [place] [address] Jan, [facility] [address] [id number] [address] [place] [address], [place] [address] Dec, [facility] [address] [id number] [address] [place] [address], [place] [address] Dec, [facility] [address] [id number] [address] [place] [address], [place] [address] Nov, [facility] [address] [id number] [address] [place] [address], [place] [address] Nov, [facility] [address] [id number] [address] [place] [address], [place] [address] Nov, [facility] [address] [id number] [address] [place] [address], [place] [address] Nov, [facility] [address] [id number] [address] [place] [address], [place] [address] Nov, [facility] [address] [id number] [address] [place] [address], [place] [address] Nov, [facility] [address] [id number] [address] [place] [address], [place] [address] Nov, [facility] [address] [id number] [address] [place] [address], [place] [address] Nov, [facility] [address] [id number] [address] [place] [address], [place] [address] Nov, [facility] [address] [id number] [address] [place] [address], [place] [address] Nov, [facility] [address] [id number] [address] [place] [address], [place] [address] Nov, [facility] [address] [id number] [address] [place] [address], [place] [address] Nov, [facility] [address] [id number] [address] [place] [address], [place] [address] Nov, [facility] [address] [id number] [address] [place] [address], [place] [address] Nov, [facility] [address] [id number] [address] [place] [address], [place] [address] Nov, [facility] [address] [id number] [address] [place] [address], [place] [address] Oct, [facility] [address] [id number] [address] [place] [address], [place] [address] Oct, [facility] [address] [id number] [address] [place] [address], [place] [address] Oct, [facility] [address] [id number] [address] [place] [address], [place] [address] Oct, [facility] [address] [id number] [address] [place] [address], [place] [address] Oct, [facility] [address] [id number] [address] [place] [address], [place] [address] Oct, [facility] [address] [id number] [address] [place] [address] Oct, [facility] [address] [facility] [id number] [address] [place] [address] Oct, [facility] [address] [facility] [id number] [address] [place] [address] Oct, [facility] [address] [facility] [id number] [address] [place] [address] Aug, [facility] [address] [facility] [id number] [address] [place] [address] Aug, IMMUNIZATIONS No Known Immunizations SOCIAL HISTORY Never Assessed REASON FOR VISIT Pain management (chronic) -- jett marquez PLAN OF CARE Activity Details Follow Up 3 Months Reason:Chronic pain /HTN/CKD VITAL SIGNS Height 69 in 2017-11-13 Weight 170 lbs 2017-11-13 Temperature 98.7 degrees Fahrenheit 2017-11-13 Heart Rate 72 bpm 2017-11-13 Respiratory Rate 20 2017-11-13 BMI 25.10 kg/m2 2017-11-13 Blood pressure systolic 146 mmHg 2017-11-13 Blood pressure diastolic 82 mmHg 2017-11-13 MEDICATIONS Medication Instructions Dosage Frequency Start Date End Date Duration S norberto Lisinopril-Hydrochlorothiazide 20-25 MG Orally Once a day 1 tablet 24 h 90 days Active MS Contin 15 mg Orally every 12 hrs 1 tablet 12h Oct, 28 days Active Amitriptyline HCl 50 MG Orally Once a day 1 tablet at bedtime 24h 90 Active Omeprazole 20 mg Orally Once a day 1 capsule 24h 30 Active Oxycodone HCl 10 mg Orally every 6 hrs 1 tablet as needed 6h Oct, 28 days Active Nitroglycerin 0.4 mg 1 tablet by Subling ual route every 5 PRN chest pain; NTE 3 tabs in 15 min Jun, Active Clonazepam 0.5 MG Orally twice a day 1 tablet as needed for anxiety 12h Feb, 28 days Active Clonazepam 1 MG Orally Once a day at HS 1 tablet Sep, Active MS Contin 30 MG Orally every 12 hrs 1 tablet 12h Oct, 28 days Active ProAir HFA 108 (90 Base) MCG/ACT Inhalation every 4 hrs 2 puffs as ne eded 4h 17 Active Singulair 10 mg Orally Once a day 1 tablet in the evening 24h 30 Active Multivitamin 1 Tablet 1 time per day Aug, Active HM Senna-S 8.6-50 MG Orally 2 times a day 1 tablet 12h May, Not-Taking Cyanocobalamin 1000 MCG/ML Injection every other month INJEC T 1 ML SUBCUTANEOUSLY 28 Active Prozac 10 mg Orally Once a day 1 capsule in the morning 24h 90 Active Movantik 12.5 MG Orally Once a day 1 tablet in the morning 24h Active Aspirin 81 mg take 1 tablet (81 mg) by oral route once daily Nov, Active Ipratropium-Albuterol 20-100 mcg/actuation Inhalation Four times a day as needed 1 puff Jun, Not-Taking RESULTS Name Result Date Reference Range [employer] 2017-11-13 PROCEDURES Procedure Date Ordered Result Body Site No Charge Nov 13, 2017 [facility] VISIT ESTABLISHED PATIENT Nov 13, 2017 INSTRUCTIONS MEDICATIONS ADMINISTERED No Known Medications MEDICAL (GENERAL) HISTORY Type Description Date Medical History hypertension Medical History asthma Medical History Arthritis Medical History Hypoglycemia Medical History Heart Cath 11/05/2013 Medical History herniated disc--Seen by Dr. Troy Michelle pain specialist in [place], [place] Medical History Chronic low back pain [...]
--- OUTSIDE RECORDS SUMMARY | 2020-06-19 02:28 | XMS REPORT ---
Author Author Mahsa ROBERTS Organization [facility] Address [address] [place] [address] Care Team Providers Care Phlebotomy Technician Name Role Phone ARMANDO ASHVIN Unavailable PROBLEMS Type Condition ICD9-CM Code TOE35-FF Code Onset Dates Condition S tatus SNOMED Code Problem Chronic prescription opiate use Z79.899 Active 117330357 Problem B12 deficiency E53.8 Active 32327 4004 Problem Bilateral low back pain, with sciatica presence unspecifie d M54.5 Active 893379307 Problem CKD (chronic kidney disease) stage 3, GFR 30-59 ml/min N18.3 Active 827873712 Problem Drug induced constipation K59.03 Acti ve [id number] Problem GERD (gastroesophageal reflux disease) K21.9 Active 418767485 Problem Allergic rhinitis J30.9 Active 61 160548 Problem Chronic obstructive pulmonary disease, unspecified COPD ty pe J44.9 Active 96726711 Problem Fibromyalgia M79.7 Active 7070043 7 Problem Chronic pain syndrome G89.4 Active 604918314 Problem Primary insomnia F51.01 Active 193 064714 Problem Other constipation K59.09 Active 1 [id number] Problem Atherosclerosis of [place] co ronary artery of [place] heart without angina pectoris I25.10 Active 8237315148744 Problem Major depressive disorder, recurrent episode, un specified severity F33.9 Active 46612703 Problem Anxiety F41.9 Active 15879945 Problem Hyperlipidemia, unspecified hyperlipidemia E78.5 Active 32475446 Problem Essential hypertension I10 Active 76765363 Problem Chronic prescription benzodiazepine use Z79.899 Active 332083873 ALLERGIES No Information ENCOUNTERS Encounter Location Date Diagnosis [facility] [address] [facility] [id number] [address] [place] [address] March, [facility] [address] [facility] [id number] [address] [place] [address] Feb, Anxiety F41.9 and Chronic pa in syndrome G89.4 [facility] [id number] [place] [address] 30 Jan, 2018 B12 deficiency E53.8 [facility] [address] [place] [id number] [address] [place] [address] Jan, [place] [address] [address] Jan, Anxiety F41.9 ; Chronic pain syndrome G89.4 and Essential hypertension I10 [place] [address] [place] [id number] [address] [place] [address] Jan, CKD (chronic kidney disease) stage 3, [...] Subacromial bursitis of right shoulder joint M75.51 [place] [address] [address] 28 Dec, 2017 Essential hypertension I10 [place] [address] [address] 15 Dec, 2017 Chronic pain syndrome G89.4 [place] [address] [place] [id number] [address] [place] [address] Dec, Chronic pain syndrome G89.4 [place] [address] [place] [id number] [address] [place] [address] Nov, [place] [address] [place] [id number] [place] [address] Nov, Chronic pain syndrome G89.4 and Anxiety F41.9 [place] [address] [address] Oct, Chronic pain syndrome G89.4 ; Other constipation K59.09 and Chronic prescription opiate use Z79.899 [place] [address] [address] Oct, Chronic pain syndrome G89.4 and Anxiety F41.9 [place] [address] [place] [address] Sep, Essential hypertension I10 [place] [address] [address] 16 Sep, 2017 Chronic pain syndrome G89.4 and Anxiety F41.[address] [address] Aug, Chronic pain syndrome G89.4 and Anxiety F41.[address] [address] Jul, Essential hypertension I10 [place] [address] [address] Jul, Chronic obstructive pulmonar y disease, unspecified COPD type J44.[address] [address] Jul, Chronic pain syndrome G89.4 and Anxiety F41.[address] [address] 13 Jul, 2017 Chronic pain syndrome G89.4 ; Essential hypertension I10 ; Fibromyalgia M79.7 ; CKD (chronic kidney disease) stage 3, GFR 30-59 ml/min N18.3 ; Subacromial bursitis, right M75.51 and Goals of care, co unseling/discussion Z71.89 [place] [address] [place] [id number] [address] [place] [address] Jun, Chronic pain syndrome G89.4 and Anxiety F41.[address] [address] May, Chronic pain syndrome G89.4 and Anxiety F41.9 [facility] [address] [facility] [id number] [address] [place] [address] Apr, Chronic pain syndrome G89.4 and Anxiety F41.9 [facility] [address] [facility] [id number] [address] [place] [address] Apr, Drug induced constipation K5 9.03 ; Chronic pain syndrome G89.4 and CKD (chronic kidney disease) stage 3, GFR 30-59 ml/min N18.3 [facility] [address] [id number] [address] [place] [address] Apr, Chronic pain syndrome G89.4 and Anxiety F41.9 [facility] [address] [facility] [id number] [address] [place] [address] March, Chronic pain syndrome G89.4 and Anxiety F41.9 [place] [address] [facility] [id number] [address] [place] [address] March, Decreased GFR R94.4 [facility] [address] [facility] [id number] [address] [place] [address] Feb, [facility] [address] [facility] [id number] [address] [place] [address] Feb, Chronic pain syndrome G89.4 and Anxiety F41.9 [place] [address] [facility] [id number] [address] [place] [address] Jan, Decreased GFR R94.4 [place] [address] [facility] [id number] [address] [place] [address] Jan, Decreased GFR R94.4 [place] [address] [facility] [id number] [address] [place] [address] Jan, Allergic rhinitis J30.9 ; Es sential hypertension I10 ; Major depressive disorder, recurrent episode, unspecified severity F33.9 and Primary insomnia F51.01 [facility] [address] [facility] [id number] [address] [place] [address] Jan, Acute right-sided thoracic b ack pain M54.6 ; Subacromial bursitis of right shoulder joint M75.51 ; Chronic pain syndrome G89.4 and Anxiety F41.9 [facility] [address] [facility] [id number] [address] [place] [address] Jan, Decreased GFR R94.4 [place] [address] [facility] [id number] [address] [place] [address] Dec, Decreased GFR R94.4 [place] [address] [facility] [id number] [place] [address] Dec, Decreased GFR R94.4 [place] [address] [place] [id number] [place] [address] Dec, Decreased GFR R94.4 [place] [address] [place] [id number] [place] [address] Dec, Decreased GFR R94.4 [place] [address] [place] [id number] [address] [place] [address] Dec, Anxiety F41.9 and Bilateral low back pain, with sciatica presence unspecified M54.5 [place] [address] [place] [id number] [place] [address] Dec, Thrombocytosis D47.3 ; Hyper lipidemia, unspecified hyperlipidemia E78.5 ; Need for hepatitis C screening test Z11.59 and B12 deficiency E53.8 [place] [address] [place] [id number] [address] [place] [address] Nov, Need for hepatitis C screeni ng test Z11.59 [place] [address] [place] [id number] [place] [address] Nov, Anxiety F41.9 and Bilateral low back pain, with sciatica presence unspecified M54.5 [place] [address] [place] [id number] [place] [address] Oct, Bilateral low back pain, wit h sciatica presence unspecified M54.5 ; Chronic prescription opiate use Z79.899 ; Anxiety F41.9 ; Essential hypertension I10 ; Hyperlipidemia, unspecified hyperlipidemia E78.5 ; Health care maintenance Z00.00 and Thrombocytosis D47.3 [facility] [address] [address] Sep, [facility] [address] [address] Sep, [place] [address] [address] Aug, [address] [address] Jul, B12 deficiency E53.8 [place] [address] [address] Jul, [address] [address] Jul, Essential hypertension I10 ; Chronic pain syndrome G89.4 ; Anxiety F41.9 ; Screening for breast cancer Z12.39 ; Atherosclerosis of [place] coronary artery of [place] heart without angina pectoris I25.10 ; Major depressive disorder, recurrent episode, unspecified severity F33.9 ; Primary insomnia F51.01 and Allergic rhinitis J30.[address] [address] Jun, [facility] [address] [address] Jun, Leg wound, right, initial en counter S81.801A and Encounter for immunization Z23 [address] [address] Jun, Open wound of right ear, uns pecified open wound type, initial encounter S01.301A [address] [address] May, B12 deficiency E53.8 [facility] [address] [facility] [id number] [address] [place] [address] May, [facility] [address] [facility] [id number] [address] [place] [address] May, [facility] [address] [facility] [id number] [address] [place] [address] May, Chronic pain syndrome G89.4 ; Chronic prescription opiate use Z79.899 ; Allergic rhinitis J30.9 ; Essential hypertension I10 and Non-healing skin lesion L98.9 [facility] [address] [facility] [id number] [address] [place] [address] Apr, [facility] [address] [facility] [id number] [address] [place] [address] March, [facility] [address] [facility] [id number] [address] [place] [address] Feb, [facility] [address] [facility] [id number] [address] [place] [address] Feb, [facility] [address] [facility] [id number] [address] [place] [address] Feb, Chronic pain syndrome G89.4 ; Anxiety [...] [place] [address] [facility] [id number] [address] [place] [address] Jan, [facility] [address] [facility] [id number] [address] [place] [address] Jan, Essential hypertension I10 [facility] [address] [place] [id number] [address] [place] [address] Jan, [facility] [address] [facility] [id number] [address] [place] [address] Jan, [facility] [address] [address] Jan, [facility] [address] [facility] [id number] [address] Dec, [facility] [place] [address] [address] Dec, Essential hypertension I10 [facility] [place] [address] [address] Dec, [place] [address] [address] Dec, B12 deficiency E53.8 and Ess ential hypertension I10 [place] [address] [address] Dec, [facility] [address] [address] Nov, Right shoulder pain M25.511 [place] [address] [address] Nov, Right shoulder pain M25.511 [place] [address] [address] Nov, Essential hypertension I10 a nd B12 deficiency E53.8 [place] [address] [place] [id number] [address] [place] [address] 14 Nov, 2015 Major depressive disorder, r ecurrent episode, unspecified severity F33.9 ; Anxiety F41.9 ; Chronic pain syndrome G89.4 ; Essential hypertension I10 ; Hyperlipidemia, unspecified hyperlipidemia E78.5 ; Chronic prescription opiate use Z79.899 ; Allergic rhinitis J30.9 ; B12 deficiency E53.8 and Right shoulder pain M25.511 [place] [address] [place] [id number] [address] [place] [address] Oct, [facility] [address] [id number] [address] [place] [address] Oct, [facility] [place] [address] [id number] [address] [place] [address] Sep, [facility] [place] [address] [id number] [address] [place] [address] Sep, [facility] [address] [id number] [address] [place] [address] Aug, [facility] [address] [id number] [address] [place] [address] Aug, [facility] [place] [address] [facility] [id number] [address] [place] [address] Aug, [facility] [place] [address] [facility] [id number] [address] [place] [address] Aug, Other constipation K59.09 ; Hyperlipidemia, unspecified hyperlipidemia E78.5 ; Essential hypertension I10 ; Primary insomnia F51.01 ; Anxiety F41.9 ; Chronic pain syndrome G89.4 ; Right shoulder pain M25.511 and Acute cystitis without hematuria N30.00 [facility] [address] [facility] [id number] [address] [place] [address] Jul, [facility] [address] [id number] [address] [place] [address] Jul, [facility] [address] [id number] [address] [place] [address] Jun, [facility] [address] [id number] [address] [place] [address] Jun, [facility] [address] [id number] [address] [place] [address] Jun, [facility] [address] [facility] [id number] [address] [place] [address] May, [facility] [address] [id number] [address] [place] [address] May, Other chronic pain 338.29 ; Hypertension 401.9 and Constipation due to opioid therapy 564.09 [facility] [address] [id number] [address] [place] [address] 17 May, 2015 [facility] [address] [id number] [address] [place] [address] May, [facility] [place] [address] [id number] [address] [place] [address] 17 Apr, 2015 [facility] [address] [id number] [address] [place] [address] 17 Apr, 2015 Unspecified essential hypert ension 401.9 [facility] [address] [id number] [address] [place] [address] 16 Apr, 2015 [facility] [address] [id number] [address] [place] [address] Apr, [facility] [address] [id number] [address] [place] [address] Apr, [facility] [address] [id number] [address] [place] [address] Apr, [facility] [address] [id number] [address] [place] [address] Apr, [facility] [address] [id number] [address] [place] [address] Apr, [facility] [address] [id number] [address] [place] [address] March, Unspecified essential hypert ension 401.9 [facility] [address] [id number] [address] [place] [address] March, [facility] [place] [address] [id number] [address] [place] [address] March, [facility] [place] [address] [id number] [address] [place] [address] 14 Feb, 2015 [facility] [address] [id number] [address] [place] [address], [place] [address] Feb, [facility] [address] [id number] [address] [place] [address], [place] [address] Jan, [facility] [address] [id number] [address] [place] [address], [place] [address] Jan, [facility] [address] [id number] [address] [place] [address], [place] [address] Jan, [facility] [address] [id number] [address] [place] [address], [place] [address] 17 Jan, 2015 [facility] [address] [id number] [address] [place] [address], [place] [address] Jan, [facility] [address] [id number] [address] [place] [address], [place] [address] Jan, [facility] [address] [id number] [address] [place] [address], [place] [address] Jan, [facility] [address] [id number] [address] [place] [address], [place] [address] 16 Dec, 2014 [facility] [address] [id number] [address] [place] [address], [place] [address] 16 Dec, 2014 [facility] [address] [id number] [address] [place] [address], [place] [address] Dec, [facility] [address] [id number] [address] [place] [address], [place] [address] Nov, [facility] [address] [id number] [address] [place] [address], [place] [address] Nov, [facility] [address] [id number] [address] [place] [address], [place] [address] Oct, [facility] [address] [id number] [address] [place] [address], [place] [address] Oct, [facility] [address] [id number] [address] [place] [address], [place] [address] Oct, [facility] [address] [id number] [address] [place] [address], [place] [address] Oct, [facility] [address] [id number] [address] [place] [address], [place] [address] Oct, [facility] [address] [id number] [address] [place] [address], [place] [address] Oct, [facility] [address] [id number] [address] [place] [address], [place] [address] Oct, [facility] [address] [id number] [address] [place] [address], [place] [address] Oct, [facility] [address] [id number] [address] [place] [address], [place] [address] Sep, [facility] [address] [id number] [address] [place] [address], [place] [address] Sep, [facility] [address] [id number] [address] [place] [address], [place] [address] Sep, [facility] [address] [id number] [address] [place] [address], [place] [address] Sep, [facility] [place] [address] [id number] [address] [place] [address], [place] [address] Sep, [facility] [address] [id number] [address] [place] [address], [place] [address] Sep, [facility] [address] [id number] [address] [place] [address], [place] [address] Aug, [facility] [address] [id number] [address] [place] [address], [place] [address] Aug, [facility] [address] [id number] [address] [place] [address], [place] [address] Aug, [facility] [address] [id number] [address] [place] [address], [place] [address] Aug, [facility] [address] [id number] [address] [place] [address], [place] [address] Aug, [facility] [address] [id number] [address] [place] [address], [place] [address] Aug, [facility] [address] [id number] [address] [place] [address], [place] [address] Aug, [facility] [address] [id number] [address] [place] [address], [place] [address] Aug, [facility] [address] [id number] [address] [place] [address], [place] [address] Aug, [facility] [address] [id number] [address] [place] [address], [place] [address] Aug, [facility] [address] [id number] [address] [place] [address], [place] [address] Jul, [facility] [address] [id number] [address] [place] [address], [place] [address] Jul, [facility] [address] [id number] [address] [place] [address], [place] [address] Jul, [facility] [address] [id number] [address] [place] [address], [place] [address] Jul, [facility] [address] [id number] [address] [place] [address], [place] [address] Jul, [facility] [address] [id number] [address] [place] [address], [place] [address] Jul, [facility] [address] [id number] [address] [place] [address], [place] [address] Jun, [facility] [address] [id number] [address] [place] [address], [place] [address] Jun, [facility] [address] [id number] [address] [place] [address], [place] [address] Jun, [facility] [address] [id number] [address] [place] [address], [place] [address] Jun, [facility] [address] [id number] [address] [place] [address], [place] [address] Jun, [facility] [address] [id number] [address] [place] [address], [place] [address] Jun, [facility] [address] [id number] [address] [place] [address], [place] [address] May, [facility] [address] [id number] [address] [place] [address], [place] [address] May, [facility] [address] [id number] [address] [place] [address], [place] [address] May, [facility] [address] [id number] [address] [place] [address], [place] [address] May, [facility] [address] [id number] [address] [place] [address], [place] [address] May, [facility] [address] [id number] [address] [place] [address], [place] [address] Apr, [facility] [address] [id number] [address] [place] [address], [place] [address] Apr, [facility] [address] [id number] [address] [place] [address], [place] [address] Apr, [facility] [address] [id number] [address] [place] [address], [place] [address] Apr, [facility] [address] [id number] [address] [place] [address], [place] [address] March, [facility] [address] [id number] [address] [place] [address], [place] [address] March, [facility] [address] [id number] [address] [place] [address], [place] [address] March, [facility] [address] [id number] [address] [place] [address], [place] [address] March, [facility] [address] [id number] [address] [place] [address] March, [facility] [address] [id number] [address] [place] [address] March, [facility] [address] [id number] [address] [place] [address] Feb, [facility] [address] [id number] [address] [place] [address], [place] [address] Feb, [facility] [address] [id number] [address] [place] [address] Feb, [facility] [address] [id number] [address] [place] [address], [place] [address] Feb, [facility] [address] [id number] [address] [place] [address], [place] [address] Feb, [facility] [address] [id number] [address] [place] [address], [place] [address] Feb, [facility] [address] [id number] [address] [place] [address], [place] [address] Feb, [facility] [address] [id number] [address] [place] [address], [place] [address] Feb, [facility] [address] [id number] [address] [place] [address], [place] [address] Jan, [facility] [address] [id number] [address] [place] [address], [place] [address] Jan, [facility] [address] [id number] [address] [place] [address], [place] [address] Jan, [facility] [address] [id number] [address] [place] [address], [place] [address] Jan, [facility] [address] [id number] [address] [place] [address], [place] [address] 04 Jan, 2014 [facility] [address] [id number] [address] [place] [address], [place] [address] Jan, [facility] [address] [id number] [address] [place] [address] Dec, [facility] [address] [id number] [address] [place] [address], [place] [address] Dec, [facility] [address] [id number] [address] [place] [address], [place] [address] Nov, [facility] [address] [id number] [address] [place] [address], [place] [address] Nov, [facility] [address] [id number] [address] [place] [address], [place] [address] Nov, [facility] [address] [id number] [address] [place] [address], [place] [address] Nov, [facility] [address] [id number] [address] [place] [address], [place] [address] Nov, [facility] [address] [id number] [address] [place] [address], [place] [address] Nov, [facility] [address] [id number] [address] [place] [address], [place] [address] Nov, [facility] [address] [id number] [address] [place] [address], [place] [address] Nov, [facility] [address] [id number] [address] [place] [address], [place] [address] Nov, [facility] [address] [id number] [address] [place] [address], [place] [address] Nov, [facility] [address] [id number] [address] [place] [address], [place] [address] Nov, [facility] [address] [id number] [address] [place] [address], [place] [address] Nov, [facility] [address] [id number] [address] [place] [address], [place] [address] Nov, [facility] [address] [id number] [address] [place] [address] Nov, [facility] [address] [id number] [address] [place] [address] Nov, [facility] [address] [id number] [address] [place] [address] Oct, [facility] [address] [id number] [address] [place] [address] Oct, [facility] [address] [id number] [address] [place] [address] Oct, [facility] [address] [id number] [address] [place] [address] Oct, [facility] [address] [id number] [address] [place] [address] Oct, [facility] [address] [id number] [address] [place] [address] Oct, [facility] [address] [id number] [address] [place] [address] Oct, [facility] [address] [id number] [address] [place] [phone] Oct, [facility] [address] [id number] [address] [place] [phone] Oct, [facility] [address] [id number] [address] [place] [address] Aug, [facility] [address] [id number] [address] [place] [address] Aug, IMMUNIZATIONS No Known Immunizations SOCIAL HISTORY Never Assessed REASON FOR VISIT Controlled Med Refill PLAN OF CARE VITAL SIGNS MEDICATIONS Medication Instructions Dosage Frequency Start Date End Date Duration S norberto MS Contin 15 MG Orally every 12 hrs 1 tablet 12h Jun, 28 days Active Oxycodone HCl 10 mg Orally every 6 hrs 1 tablet as needed 6h Jun, 28 days Active MS Contin 30 MG Orally every 12 hrs 1 tablet 12h Jun, 28 days Active Clonazepam 1 MG Orally Once a day at HS 1 tablet Sep, Active Clonazepam 0.5 MG Orally Once a day 1 tablet as needed for anxiety 24h Feb, 28 days Active RESULTS No Results PROCEDURES No Known procedures INSTRUCTIONS MEDICATIONS ADMINISTERED No Known Medications MEDICAL (GENERAL) HISTORY Type Description Date Medical History hypertension Medical History asthma Medical History Arthritis Medical History Hypoglycemia Medical History Heart Cath 11/05/2013 Medical History herniated disc--Seen by Dr. Troy Michelle pain specialist in [place], [place] Medical History Chronic low back pain Medical History depression Medical History anxiety Medical History Panic attacks Medical History Vitamin B 12 deficiency r/t gastric bypa ss Medical History Low back injections 11/2012, 06/2013 Medical History Thrombocytosis Surgical History tonsillectomy [facility] Unsure [facility] name. No longer [...]
--- OUTSIDE RECORDS SUMMARY | 2020-06-19 02:28 | XMS REPORT ---
Author Author Mahsa ROB[facility]S [facility] Address [address] [place] [address] Care Team Providers Care Spares Scheduler Name Role Phone ARMANDO ASHVIN Unavailable PROBLEMS Type Condition ICD9-CM Code [id number] Code Onset Dates Condition S tatus SNOMED Code Problem Chronic prescription opiate use Z79.899 Active 495458875 Problem B12 deficiency E53.8 Active 91341 4004 Problem Bilateral low back pain, with sciatica presence unspecifie d M54.5 Active 736414326 Problem CKD (chronic kidney disease) stage 3, GFR 30-59 ml/min N18.3 Active 781055622 Problem Drug induced constipation K59.03 Acti ve [id number] Problem GERD (gastroesophageal reflux disease) K21.9 Active 822856275 Problem Allergic rhinitis J30.9 Active 61 506591 Problem Chronic obstructive pulmonary disease, unspecified COPD ty pe J44.9 Active 74334083 Problem Fibromyalgia M79.7 Active 6039194 7 Problem Chronic pain syndrome G89.4 Active 648586643 Problem Primary insomnia F51.01 Active 193 160060 Problem Other constipation K59.09 Active 1 [id number] Problem Atherosclerosis of [place] co ronary artery of [place] heart without angina pectoris I25.10 Active 5725126941081 Problem Major depressive disorder, recurrent episode, un specified severity F33.9 Active 19048860 Problem Anxiety F41.9 Active 03246989 Problem Hyperlipidemia, unspecified hyperlipidemia E78.5 Active 83884821 Problem Essential hypertension I10 Active 53241485 Problem Chronic prescription benzodiazepine use Z79.899 Active 109118656 ALLERGIES Substance Reaction Event Type Date Status Lyrica throat swelling Drug Allergy Jul, Active Flagyl throat swelling Drug Allergy Jul, Active Lisinopril 20 Mg Tablet Headache Non Drug Allergy Jul, Active ENCOUNTERS Encounter Location Date Diagnosis [facility] [address] [facility] [id number] [address] [address] March, [facility] [address] [id number] Feb, Anxiety F41.9 and Chronic pa in syndrome G89.4 [facility] [address] [place] [id number] [address] [place] [address] Jan, B12 deficiency E53.8 [place] [address] [address] Jan, [place] [address] [address] Jan, Anxiety F41.9 ; Chronic pain syndrome G89.4 and Essential hypertension I10 [place] [address] [address] Jan, CKD (chronic kidney disease) stage 3, [...] Subacromial bursitis of right shoulder joint M75.51 [place] [address] [address] Dec, Essential hypertension I10 [place] [address] [address] 15 Dec, 2017 Chronic pain syndrome G89.4 [place] [address] [address] Dec, Chronic pain syndrome G89.4 [place] [address] [place] [id number] [place] [address] Nov, [place] [address] [address] Nov, Chronic pain syndrome G89.4 and Anxiety F41.9 [facility] [address] [facility] [id number] [address] [place] [address] Oct, Chronic pain syndrome G89.4 ; Other constipation K59.09 and Chronic prescription opiate use Z79.899 [facility] [address] [facility] [id number] [address] [place] [address] Oct, Chronic pain syndrome G89.4 and Anxiety F41.9 [facility] [address] [facility] [id number] [address] [place] [address] Sep, Essential hypertension I10 [place] [address] [facility] [id number] [address] [place] [address] Sep, Chronic pain syndrome G89.4 and Anxiety F41.9 [place] [address] [facility] [id number] [address] [place] [address] Aug, Chronic pain syndrome G89.4 and Anxiety F41.9 [place] [address] [facility] [id number] [address] [place] [address] Jul, Essential hypertension I10 [place] [address] [facility] [id number] [address] [place] [id number] 22 Jul, 2017 Chronic obstructive pulmonar y disease, unspecified COPD type J44.9 [place] [address] [facility] [id number] [address] [place] [id number] Jul, Chronic pain syndrome G89.4 and Anxiety F41.9 [place] [address] [facility] [id number] [address] [place] [id number] 13 Jul, 2017 Chronic pain syndrome G89.4 ; Essential hypertension I10 ; Fibromyalgia M79.7 ; CKD (chronic kidney disease) stage 3, GFR 30-59 ml/min N18.3 ; Subacromial bursitis, right M75.51 and Goals of care, co unseling/discussion Z71.89 [place] [address] [place] [id number] [address] [place] [address] Jun, Chronic pain syndrome G89.4 and Anxiety F41.9 [facility] [address] [facility] [id number] [address] [place] [phone] May, Chronic pain syndrome G89.4 and Anxiety F41.9 [facility] [address] [facility] [id number] [address] [place] [id number] Apr, Chronic pain syndrome G89.4 and Anxiety F41.9 [facility] [address] [facility] [id number] [address] [place] [address] Apr, Drug induced constipation K5 9.03 ; Chronic pain syndrome G89.4 and CKD (chronic kidney disease) stage 3, GFR 30-59 ml/min N18.3 [facility] [address] [facility] [id number] [address] [place] [address] Apr, Chronic pain syndrome G89.4 and Anxiety F41.9 [facility] [address] [facility] [id number] [address] [place] [address] March, Chronic pain syndrome G89.4 and Anxiety F41.9 [facility] [address] [facility] [id number] [address] [place] [address] March, Decreased GFR R94.4 [facility] [address] [facility] [id number] [address] [place] [address] Feb, [facility] [address] [facility] [id number] [address] [place] [address] Feb, Chronic pain syndrome G89.4 and Anxiety F41.9 [facility] [address] [facility] [id number] [address] [place] [address] Jan, Decreased GFR R94.4 [facility] [address] [facility] [id number] [address] [place] [address] Jan, Decreased GFR R94.4 [facility] [address] [facility] [id number] [address] [place] [address] Jan, Allergic rhinitis J30.9 ; Es sential hypertension I10 ; Major depressive disorder, recurrent episode, unspecified severity F33.9 and Primary insomnia F51.01 [place] [address] [address] Jan, Acute right-sided thoracic b ack pain M54.6 ; Subacromial bursitis of right shoulder joint M75.51 ; Chronic pain syndrome G89.4 and Anxiety F41.9 [place] [address] [address] Jan, Decreased GFR R94.4 [place] [address] [place] [id number] [place] [address] Dec, Decreased GFR R94.4 [place] [address] [place] [id number] [place] [address] Dec, Decreased GFR R94.4 [place] [address] [address] Dec, Decreased GFR R94.4 [place] [address] [place] [id number] [place] [address] Dec, Decreased GFR R94.4 [place] [address] [place] [id number] [place] [address] Dec, Anxiety F41.9 and Bilateral low back pain, with sciatica presence unspecified M54.5 [place] [address] [address] Dec, Need for hepatitis C screeni ng test Z11.59 ; B12 deficiency E53.8 ; Hyperlipidemia, unspecified hyperlipidemia E78.5 and Thrombocytosis D47.3 [place] [address] [place] [id number] [place] [address] Nov, Need for hepatitis C screeni ng test Z11.59 [place] [address] [place] [id number] [place] [address] Nov, Anxiety F41.9 and Bilateral low back pain, with sciatica presence unspecified M54.5 [facility] [address] [place] [id number] [address] [place] [address] Oct, Bilateral low back pain, wit h sciatica presence unspecified M54.5 ; Chronic prescription opiate use Z79.899 ; Anxiety F41.9 ; Essential hypertension I10 ; Hyperlipidemia, unspecified hyperlipidemia E78.5 ; Health care maintenance Z00.00 and Thrombocytosis D47.3 [place] [address] [address] Sep, [place] [address] [address] Sep, [place] [address] [address] Aug, [place] [address] [address] Jul, B12 deficiency E53.8 [facility] [address] [address] Jul, [place] [address] [address] Jul, Essential hypertension I10 ; Chronic pain syndrome G89.4 ; Anxiety F41.9 ; Screening for breast cancer Z12.39 ; Atherosclerosis of [place] coronary artery of [place] heart without angina pectoris I25.10 ; Major depressive disorder, recurrent episode, unspecified severity F33.9 ; Primary insomnia F51.01 and Allergic rhinitis J30.9 [facility] [id number] [place] [address] Jun, [facility] [address] [address] Jun, Leg wound, right, initial en counter S81.801A and Encounter for immunization Z23 [facility] [address] [place] [id number] [address] [place] [address] Jun, Open wound of right ear, uns pecified open wound type, initial encounter S01.301A [facility] [address] [facility] [id number] [address] [place] [address] May, B12 deficiency E53.8 [facility] [address] [facility] [id number] [address] [place] [address] May, [facility] [address] [facility] [id number] [address] [place] [address] May, [facility] [address] [place] [id number] [address] [place] [address] May, Chronic pain syndrome G89.4 ; Chronic prescription opiate use Z79.899 ; Allergic rhinitis J30.9 ; Essential hypertension I10 and Non-healing skin lesion L98.9 [facility] [address] [place] [id number] [place] [address] Apr, [place] [address] [place] [id number] [place] [address] March, [facility] [address] [facility] [id number] [address] [place] [address] Feb, [facility] [address] [address] Feb, [place] [address] [place] [id number] [place] [address] Feb, Chronic pain syndrome G89.4 ; Anxiety F41.9 ; B12 deficiency E53.8 ; Allergic rhinitis J30.9 ; Fibromyalgia M79.7 ; Actinic keratosis L57.0 ; Skin rash R21 ; Open wound of right ear, unspecified open wound type, initial encounter S01.301A ; Subacromial bursitis, right M75.51 ; GERD (gastroesophageal reflux disease) K21.9 and Chronic obstructive pulmonary disease, unspecified COPD type J44.9 [facility] [address] [place] [id number] [address] [place] [address] Jan, [facility] [address] [address] Jan, Essential hypertension I10 [facility] [address] [facility] [id number] [address] [place] [address] Jan, [facility] [address] [facility] [id number] [address] [place] [address] Jan, [facility] [address] [facility] [id number] [address] [place] [address] Jan, [facility] [address] [facility] [id number] [address] [place] [address] Dec, [facility] [address] [facility] [id number] [address] [place] [address] Dec, Essential hypertension I10 [facility] [address] [facility] [id number] [address] [place] [address] Dec, [facility] [address] [address] Dec, B12 deficiency E53.8 and Ess ential hypertension I10 [facility] [address] [facility] [id number] [address] [place] [id number] Dec, [facility] [address] [place] [id number] [address] [place] [address] Nov, Right shoulder pain M25.511 [facility] [address] [address] Nov, Right shoulder pain M25.511 [facility] [address] [place] [address] Nov, Essential hypertension I10 a nd B12 deficiency E53.8 [facility] [address] [place] [id number] [address] [place] [address] Nov, Major depressive disorder, r ecurrent episode, unspecified severity F33.9 ; Anxiety F41.9 ; Chronic pain syndrome G89.4 ; Essential hypertension I10 ; Hyperlipidemia, unspecified hyperlipidemia E78.5 ; Chronic prescription opiate use Z79.899 ; Allergic rhinitis J30.9 ; B12 deficiency E53.8 and Right shoulder pain M25.511 [facility] [address] [address] Oct, [facility] [address] [place] [id number] [address] [place] [address] Oct, [facility] [address] [place] [id number] [place] [address] Sep, [facility] [address] [place] [id number] [place] [address] Sep, [facility] [address] [address] Aug, [facility] [address] [place] [id number] [place] [address] Aug, [facility] [address] [address] Aug, [facility] [address] [address] Aug, Other constipation K59.09 ; Hyperlipidemia, unspecified hyperlipidemia E78.5 ; Essential hypertension I10 ; Primary insomnia F51.01 ; Anxiety F41.9 ; Chronic pain syndrome G89.4 ; Right shoulder pain M25.511 and Acute cystitis without hematuria N30.00 [facility] [address] [address] Jul, [facility] [address] [place] [id number] [place] [address] Jul, [facility] [address] [address] Jun, [facility] [address] [place] [id number] [place] [address] Jun, [facility] [address] [address] Jun, [facility] [address] [id number] [address] [place] [address] May, [facility] [address] [id number] [address] [place] [address] May, Other chronic pain 338.29 ; Hypertension 401.9 and Constipation due to opioid therapy 564.09 [facility] [address] [id number] [address] [place] [address] May, [facility] [address] [id number] [address] [place] [address] May, [facility] [address] [id number] [address] [place] [address] Apr, [facility] [address] [id number] [address] [place] [address] Apr, Unspecified essential hypert ension 401.9 [facility] [address] [id number] [address] [place] [address] Apr, [facility] [address] [id number] [address] [place] [address] Apr, [facility] [address] [id number] [address] [place] [address] Apr, [facility] [address] [id number] [address] [place] [address] Apr, [facility] [address] [id number] [address] [place] [phone] Apr, [facility] [address] [id number] [address] [place] [phone] Apr, [facility] [address] [id number] [address] [place] [address] March, Unspecified essential hypert ension 401.9 [facility] [address] [id number] [address] [place] [address] March, [facility] [address] [id number] [address] [place] [address], [place] [address] 15 Mar, 2015 [facility] [address] [id number] [address] [place] [address], [place] [address] 14 Feb, 2015 [facility] [address] [id number] [address] [place] [address], [place] [address] 13 Feb, 2015 [facility] [address] [id number] [address] [place] [address], [place] [address] 23 Jan, 2015 [facility] [address] [id number] [address] [place] [address], [place] [address] 23 Jan, 2015 [facility] [address] [id number] [address] [place] [address], [place] [address] Jan, [facility] [address] [id number] [address] [place] [address], [place] [address] 17 Jan, 2015 [facility] [address] [id number] [address] [place] [address], [place] [address] Jan, [facility] [address] [id number] [address] [place] [address], [place] [address] Jan, [facility] [address] [id number] [address] [place] [address], [place] [address] 02 Jan, 2015 [facility] [address] [id number] [address] [place] [address], [place] [address] 16 Dec, 2014 [facility] [address] [id number] [address] [place] [address], [place] [address] 16 Dec, 2014 [facility] [address] [id number] [address] [place] [address], [place] [address] 13 Dec, 2014 [facility] [address] [id number] [address] [place] [address], [place] [address] Nov, [facility] [address] [id number] [address] [place] [address], [place] [address] Nov, [facility] [address] [id number] [address] [place] [address], [place] [address] Oct, [facility] [address] [id number] [address] [place] [address], [place] [address] 16 Oct, 2014 [facility] [address] [id number] [address] [place] [address], [place] [address] Oct, [facility] [address] [id number] [address] [place] [address], [place] [address] Oct, [facility] [address] [id number] [address] [place] [address], [place] [address] Oct, [facility] [address] [id number] [address] [place] [address], [place] [address] Oct, [facility] [address] [id number] [address] [place] [address], [place] [address] Oct, [facility] [address] [id number] [address] [place] [address], [place] [address] Oct, [facility] [address] [id number] [address] [place] [address], [place] [address] Sep, [facility] [address] [id number] [address] [place] [address], [place] [address] Sep, [facility] [address] [id number] [address] [place] [address], [place] [address] Sep, [facility] [address] [id number] [address] [place] [address], [place] [address] Sep, [facility] [address] [id number] [address] [place] [address], [place] [address] Sep, [facility] [address] [id number] [address] [place] [address], [place] [address] Sep, [facility] [address] [id number] [address] [place] [address], [place] [address] Aug, [facility] [address] [id number] [address] [place] [address], [place] [address] Aug, [facility] [address] [id number] [address] [place] [phone] Aug, [facility] [address] [id number] [address] [place] [address], [place] [address] Aug, [facility] [address] [id number] [address] [place] [address], [place] [address] Aug, [facility] [address] [id number] [address] [place] [address], [place] [address] Aug, [facility] [address] [id number] [address] [place] [address], [place] [address] Aug, [facility] [address] [id number] [address] [place] [address], [place] [address] Aug, [facility] [address] [id number] [address] [place] [address], [place] [address] Aug, [facility] [address] [id number] [address] [place] [address], [place] [address] Aug, [facility] [address] [id number] [address] [place] [address], [place] [address] Jul, [facility] [address] [id number] [address] [place] [address], [place] [address] Jul, [facility] [address] [id number] [address] [place] [address], [place] [address] Jul, [facility] [address] [id number] [address] [place] [address], [place] [address] Jul, [facility] [address] [id number] [address] [place] [address], [place] [address] Jul, [facility] [address] [id number] [address] [place] [address], [place] [address] Jul, [facility] [address] [id number] [address] [place] [address], [place] [address] Jun, [facility] [address] [id number] [address] [place] [address], [place] [address] Jun, [facility] [address] [id number] [address] [place] [address] Jun, [facility] [address] [id number] [address] [place] [address] Jun, [facility] [address] [id number] [address] [place] [address] Jun, [facility] [address] [id number] [address] [place] [address] Jun, [facility] [address] [id number] [address] [place] [address] May, [facility] [address] [id number] [address] [place] [address], [place] [address] May, [facility] [address] [id number] [address] [place] [address], [place] [address] May, [facility] [address] [id number] [address] [place] [address], [place] [address] May, [facility] [address] [id number] [address] [place] [address], [place] [address] May, [facility] [address] [id number] [address] [place] [address], [place] [address] Apr, [facility] [address] [id number] [address] [place] [address], [place] [address] Apr, [facility] [address] [id number] [address] [place] [address], [place] [address] Apr, [facility] [address] [id number] [address] [place] [address], [place] [address] Apr, [facility] [address] [id number] [address] [place] [address], [place] [address] March, [facility] [address] [id number] [address] [place] [address], [place] [address] March, [facility] [address] [id number] [address] [place] [address], [place] [address] March, [facility] [address] [id number] [address] [place] [address] March, [facility] [address] [id number] [address] [place] [address], [place] [address] March, [facility] [address] [id number] [address] [place] [address], [place] [address] March, [facility] [address] [id number] [address] [place] [address], [place] [address] Feb, [facility] [address] [id number] [address] [place] [address], [place] [address] Feb, [facility] [address] [id number] [address] [place] [address], [place] [address] Feb, [facility] [address] [id number] [address] [place] [address], [place] [address] Feb, [facility] [address] [id number] [address] [place] [address], [place] [address] Feb, [facility] [address] [id number] [address] [place] [address], [place] [address] Feb, [facility] [address] [id number] [address] [place] [address], [place] [address] Feb, [facility] [address] [id number] [address] [place] [address], [place] [address] Feb, [facility] [address] [id number] [address] [place] [address], [place] [address] Jan, [facility] [address] [id number] [address] [place] [address], [place] [address] Jan, [facility] [address] [id number] [address] [place] [address], [place] [address] Jan, [facility] [address] [id number] [address] [place] [address], [place] [address] Jan, [facility] [address] [id number] [address] [place] [address], [place] [address] Jan, [facility] [address] [id number] [address] [place] [address], [place] [address] Jan, [facility] [address] [id number] [address] [place] [address], [place] [address] Dec, [facility] [address] [id number] [address] [place] [address], [place] [address] Dec, [facility] [address] [id number] [address] [place] [address], [place] [address] Nov, [facility] [address] [id number] [address] [place] [address], [place] [address] Nov, [facility] [address] [id number] [address] [place] [address], [place] [address] Nov, [facility] [address] [id number] [address] [place] [address], [place] [address] Nov, [facility] [address] [id number] [address] [place] [address], [place] [address] Nov, [facility] [address] [id number] [address] [place] [address], [place] [address] Nov, [facility] [address] [id number] [address] [place] [address], [place] [address] Nov, [facility] [address] [id number] [address] [place] [address], [place] [address] Nov, [facility] [address] [id number] [address] [place] [address], [place] [address] Nov, [facility] [address] [id number] [address] [place] [address], [place] [address] Nov, [facility] [address] [id number] [address] [place] [address], [place] [address] Nov, [facility] [address] [id number] [address] [place] [address], [place] [address] Nov, [facility] [address] [id number] [address] [place] [phone] Nov, [facility] [address] [id number] [address] [place] [id number] Nov, [facility] [address] [id number] [address] [place] [phone] Nov, [facility] [address] [id number] [address] [place] [phone] Oct, [facility] [address] [id number] [address] [place] [phone] Oct, [facility] [address] [id number] [address] [place] [phone] Oct, [facility] [address] [id number] [address] [place] [phone] Oct, [facility] [address] [id number] [address] [place] [phone] Oct, [facility] [address] [id number] [address] [place] [phone] Oct, [facility] [address] [id number] [address] [place] [id number] Oct, [facility] [address] [id number] [address] [place] [phone] Oct, [facility] [address] [id number] [address] [place] [id number] Oct, [facility] [address] [id number] [address] [place] [id number] Aug, [facility] [address] [id number] [address] [place] [phone] Aug, IMMUNIZATIONS Vaccine Route Administration Date Status KENALOG 40 MG/ML (PER 10 MG) Unknown Aug 08, 2017 Adm inistered SOCIAL HISTORY Never Assessed REASON FOR VISIT pain medication neptali marquez ma PLAN OF CARE Activity Details Follow Up 3 Months Reason:Chronic pain VITAL SIGNS Height 69 in 2017-08-08 Weight 174.0 lbs 2017-08-08 Temperature 98.7 degrees Fahrenheit 2017-08-08 Heart Rate 70 bpm 2017-08-08 Respiratory Rate 18 2017-08-08 BMI 25.69 kg/m2 2017-08-08 MEDICATIONS Medication Instructions Dosage Frequency Start Date End Date Duration S tatus MS Contin 30 MG Orally every 12 hrs 1 tablet 12h Jun, Active Amitriptyline HCl 50 MG Orally Once a day 1 tablet at bedtime 24h 90 Active MS Contin 15 MG Orally every 12 hrs 1 tablet 12h Jun, Active Multivitamin 1 Tablet 1 time per day Aug, Active Aspirin 81 mg take 1 tablet (81 mg) by oral route once daily Nov, Active Nitroglycerin 0.4 mg 1 tablet by Subling ual route every 5 PRN chest pain; NTE 3 tabs in 15 min Jun, Active Clonazepam 0.5 MG Orally Once a day 1 tablet as needed for anxiety 24h Feb, 28 days Active Lisinopril-Hydrochlorothiazide 20-25 MG Orally Once a day 1 tablet 24h Active Prozac 10 mg Orally Once a day 1 capsule in the morning 24h 90 Active Singulair 10 mg Orally Once a day 1 tablet in the evening 24h 90 Active Clonazepam 1 MG Orally Once a day at HS 1 tablet Sep, Active Oxycodone HCl 10 mg Orally every 6 hrs 1 tablet as needed 6h Jun Active Cyanocobalamin 1000 MCG/ML Injection every other month INJEC T 1 ML SUBCUTANEOUSLY Active Omeprazole 20 mg Orally Once a day 1 capsule 24h 30 Active RESULTS No Results PROCEDURES Procedure Date Ordered Result Body Site DRAIN/INJECT, JOINT/BURSA Aug 08, 2017 [facility] VISIT ESTABLISHED PATIENT Aug 08, 2017 KENALOG 40 MG/ML (PER 10 MG) Aug 08, 2017 THER/PROPH/DIAG INJ, SC/IM Aug 08, 2017 INSTRUCTIONS MEDICATIONS ADMINISTERED No Known Medications MEDICAL (GENERAL) HISTORY Type Description Date Medical History hypertension Medical History asthma Medical History Arthritis Medical History Hypoglycemia Medical History Heart Cath 11/05/2013 Medical History herniated disc--Seen by Dr. Troy Michelle pain specialist in [place], [place] Medical History Chronic low back pain [...]
--- OUTSIDE RECORDS SUMMARY | 2020-06-19 02:28 | XMS REPORT ---
Author Author Mahsa ROBERTS [facility] Address [address] [place] [address] Care Team Providers Care Production Control Expert Name Role Phone ARMANDO ASHVIN Unavailable PROBLEMS Type Condition ICD9-CM Code [id number] Code Onset Dates Condition S tatus SNOMED Code Problem Chronic prescription opiate use Z79.899 Active 299746688 Problem B12 deficiency E53.8 Active 96735 4004 Problem Bilateral low back pain, with sciatica presence unspecifie d M54.5 Active 204398735 Problem CKD (chronic kidney disease) stage 3, GFR 30-59 ml/min N18.3 Active 282669316 Problem Drug induced constipation K59.03 Acti ve [id number] Problem GERD (gastroesophageal reflux disease) K21.9 Active 346367434 Problem Allergic rhinitis J30.9 Active 61 285613 Problem Chronic obstructive pulmonary disease, unspecified COPD ty pe J44.9 Active 04521006 Problem Fibromyalgia M79.7 Active 8045331 7 Problem Chronic pain syndrome G89.4 Active 081990559 Problem Primary insomnia F51.01 Active 193 286707 Problem Other constipation K59.09 Active 1 [id number] Problem Atherosclerosis of [place] co ronary artery of [place] heart without angina pectoris I25.10 Active 2347404119280 Problem Major depressive disorder, recurrent episode, un specified severity F33.9 Active 20473003 Problem Anxiety F41.9 Active 00403365 Problem Hyperlipidemia, unspecified hyperlipidemia E78.5 Active 68911558 Problem Essential hypertension I10 Active 53406130 Problem Chronic prescription benzodiazepine use Z79.899 Active 435114976 ALLERGIES No Information ENCOUNTERS Encounter Location Date Diagnosis [facility] [address] [facility] [id number] [address] [place] [address] March, [facility] [address] [facility] [id number] [address] [place] [address] Jan, [facility] [address] [place] [address] Jan, Anxiety F41.9 ; Chronic pain syndrome G89.4 and Essential hypertension I10 [facility] [address] [place] [id number] [address] [place] [address] Jan, CKD (chronic kidney disease) stage 3, [...] Subacromial bursitis of right shoulder joint M75.51 [place] [address] [address] 28 Dec, 2017 Essential hypertension I10 [place] [address] [address] 15 Dec, 2017 Chronic pain syndrome G89.4 [place] [address] [address] Dec, Chronic pain syndrome G89.4 [place] [address] [place] [id number] [address] [place] [address] Nov, [place] [address] [address] Nov, Chronic pain syndrome G89.4 and Anxiety F41.9 [place] [address] [place] [id number] [address] [place] [address] Oct, Chronic pain syndrome G89.4 ; Other constipation K59.09 and Chronic prescription opiate use Z79.899 [place] [address] [place] [id number] [address] [place] [address] Oct, Chronic pain syndrome G89.4 and Anxiety F41.9 [place] [address] [place] [id number] [address] [place] [address] Sep, Essential hypertension I10 [place] [address] [facility] [id number] [address] [place] [address] 16 Sep, 2017 Chronic pain syndrome G89.4 and Anxiety F41.9 [place] [address] [facility] [id number] [address] [place] [address] Aug, Chronic pain syndrome G89.4 and Anxiety F41.9 [place] [address] [facility] [id number] [address] [place] [address] 28 Jul, 2017 Essential hypertension I10 [place] [address] [place] [id number] [address] [place] [address] 22 Jul, 2017 Chronic obstructive pulmonar y disease, unspecified COPD type J44.9 [place] [address] [facility] [id number] [address] [place] [address] Jul, Chronic pain syndrome G89.4 and Anxiety F41.9 [place] [address] [facility] [id number] [address] [place] [address] 13 Jul, 2017 Chronic pain syndrome G89.4 ; Essential hypertension I10 ; Fibromyalgia M79.7 ; CKD (chronic kidney disease) stage 3, GFR 30-59 ml/min N18.3 ; Subacromial bursitis, right M75.51 and Goals of care, co unseling/discussion Z71.89 [place] [address] [facility] [id number] [address] [place] [address] Jun, Chronic pain syndrome G89.4 and Anxiety F41.9 [place] [address] [facility] [id number] [address] [place] [address] May, Chronic pain syndrome G89.4 and Anxiety F41.9 [place] [address] [facility] [id number] [address] [place] [address] Apr, Chronic pain syndrome G89.4 and Anxiety F41.9 [place] [address] [place] [id number] [address] [place] [address] Apr, Drug induced constipation K5 9.03 ; Chronic pain syndrome G89.4 and CKD (chronic kidney disease) stage 3, GFR 30-59 ml/min N18.3 [place] [address] [facility] [id number] [address] [place] [address] 02 Apr, 2017 Chronic pain syndrome G89.4 and Anxiety F41.9 [place] [address] [facility] [id number] [address] [place] [address] March, Chronic pain syndrome G89.4 and Anxiety F41.9 [place] [address] [facility] [id number] [address] [place] [address] March, Decreased GFR R94.4 [place] [address] [place] [id number] [address] [place] [address] Feb, [place] [address] [place] [id number] [address] [place] [address] Feb, Chronic pain syndrome G89.4 and Anxiety F41.9 [place] [address] [facility] [id number] [address] [place] [address] Jan, Decreased GFR R94.4 [place] [address] [place] [id number] [address] [place] [address] Jan, Decreased GFR R94.4 [place] [address] [facility] [id number] [address] [place] [address] Jan, Allergic rhinitis J30.9 ; Es sential hypertension I10 ; Major depressive disorder, recurrent episode, unspecified severity F33.9 and Primary insomnia F51.01 [place] [address] [facility] [id number] [address] [place] [address] Jan, Acute right-sided thoracic b ack pain M54.6 ; Subacromial bursitis of right shoulder joint M75.51 ; Chronic pain syndrome G89.4 and Anxiety F41.9 [place] [address] [facility] [id number] [address] [place] [address] Jan, Decreased GFR R94.4 [place] [address] [facility] [id number] [address] [place] [address] Dec, Decreased GFR R94.4 [place] [address] [place] [id number] [place] [address] Dec, Decreased GFR R94.4 [place] [address] [place] [id number] [place] [address] Dec, Decreased GFR R94.4 [place] [address] [place] [id number] [place] [address] Dec, Decreased GFR R94.4 [place] [address] [address] Dec, Anxiety F41.9 and Bilateral low back pain, with sciatica presence unspecified M54.5 [place] [address] [address] Dec, Thrombocytosis D47.3 ; Hyper lipidemia, unspecified hyperlipidemia E78.5 ; Need for hepatitis C screening test Z11.59 and B12 deficiency E53.8 [place] [address] [address] Nov, Need for hepatitis C screeni ng test Z11.59 [place] [address] [address] Nov, Anxiety F41.9 and Bilateral low back pain, with sciatica presence unspecified M54.5 [place] [address] [place] [id number] [address] [place] [address] Oct, Bilateral low back pain, wit h sciatica presence unspecified M54.5 ; Chronic prescription opiate use Z79.899 ; Anxiety F41.9 ; Essential hypertension I10 ; Hyperlipidemia, unspecified hyperlipidemia E78.5 ; Health care maintenance Z00.00 and Thrombocytosis D47.3 [place] [address] [address] Sep, [facility] [address] [facility] [id number] [address] [place] [address] Sep, [facility] [address] [facility] [id number] [address] [place] [address] Aug, [facility] [address] [facility] [id number] [address] [place] [address] Jul, B12 deficiency E53.8 [facility] [address] [facility] [id number] [address] [place] [address] Jul, [facility] [address] [facility] [id number] [address] [place] [address] Jul, Essential hypertension I10 ; Chronic pain syndrome G89.4 ; Anxiety F41.9 ; Screening for breast cancer Z12.39 ; Atherosclerosis of [place] coronary artery of [place] heart without angina pectoris I25.10 ; Major depressive disorder, recurrent episode, unspecified severity F33.9 ; Primary insomnia F51.01 and Allergic rhinitis J30.9 [facility] [address] [facility] [id number] [address] [place] [address] Jun, [facility] [address] [facility] [id number] [address] [place] [address] Jun, Leg wound, right, initial en counter S81.801A and Encounter for immunization Z23 [facility] [address] [facility] [id number] [address] [place] [address] Jun, Open wound of right ear, uns pecified open wound type, initial encounter S01.301A [facility] [address] [facility] [id number] [address] [place] [address] May, B12 deficiency E53.8 [facility] [address] [facility] [id number] [address] [place] [address] May, [facility] [address] [facility] [id number] [address] [place] [address] May, [facility] [address] [facility] [id number] [address] [place] [address] May, Chronic pain syndrome G89.4 ; Chronic prescription opiate use Z79.899 ; Allergic rhinitis J30.9 ; Essential hypertension I10 and Non-healing skin lesion L98.9 [facility] [address] [facility] [id number] [address] [place] [address] Apr, [facility] [address] [place] [id number] [place] [address] March, [facility] [address] [place] [id number] [place] [address] Feb, [facility] [address] [address] Feb, [facility] [address] [address] Feb, Chronic pain syndrome G89.4 ; Anxiety [...] J44.9 [facility] [address] [place] [id number] [address] [place] [address] Jan, [facility] [address] [place] [id number] [address] [place] [address] Jan, Essential hypertension I10 [facility] [address] [facility] [id number] [address] [place] [address] Jan, [facility] [address] [place] [id number] [address] [place] [address] Jan, [facility] [address] [place] [id number] [address] [place] [address] Jan, [facility] [address] [place] [id number] [place] [address] Dec, [facility] [address] [facility] [id number] [address] [place] [address] Dec, Essential hypertension I10 [facility] [address] [facility] [id number] [address] [place] [address] Dec, [facility] [address] [address] Dec, B12 deficiency E53.8 and Ess ential hypertension I10 [facility] [address] [facility] [id number] [place] [address] Dec, [facility] [address] [address] Nov, Right shoulder pain M25.511 [place] [address] [address] Nov, Right shoulder pain M25.511 [facility] [address] [address] Nov, Essential hypertension I10 a nd B12 deficiency E53.8 [place] [address] [address] Nov, Major depressive disorder, r ecurrent episode, unspecified severity F33.9 ; Anxiety F41.9 ; Chronic pain syndrome G89.4 ; Essential hypertension I10 ; Hyperlipidemia, unspecified hyperlipidemia E78.5 ; Chronic prescription opiate use Z79.899 ; Allergic rhinitis J30.9 ; B12 deficiency E53.8 and Right shoulder pain M25.511 [facility] [id number] [place] [address] Oct, [facility] [address] [address] Oct, [facility] [address] [address] Sep, [facility] [address] [place] [id number] [address] [place] [address] Sep, [facility] [address] [facility] [id number] [address] [place] [address] Aug, [facility] [address] [facility] [id number] [address] [place] [address] Aug, [facility] [address] [facility] [id number] [address] [place] [address] Aug, [facility] [address] [facility] [id number] [address] [place] [address] Aug, Other constipation K59.09 ; Hyperlipidemia, unspecified hyperlipidemia E78.5 ; Essential hypertension I10 ; Primary insomnia F51.01 ; Anxiety F41.9 ; Chronic pain syndrome G89.4 ; Right shoulder pain M25.511 and Acute cystitis without hematuria N30.00 [facility] [address] [place] [id number] [address] [place] [address] Jul, [facility] [address] [facility] [id number] [address] [place] [address] Jul, [facility] [address] [place] [id number] [address] [place] [address] Jun, [facility] [address] [place] [id number] [address] [place] [address] Jun, [facility] [address] [facility] [id number] [address] [place] [address] Jun, [facility] [address] [facility] [id number] [address] [place] [address] May, [facility] [address] [facility] [id number] [address] [place] [address] May, Other chronic pain 338.29 ; Hypertension 401.9 and Constipation due to opioid therapy 564.09 [facility] [address] [facility] [id number] [address] [place] [address] May, [facility] [address] [id number] [address] [place] [address] 15 May, 2015 [facility] [address] [id number] [address] [place] [address] 17 Apr, 2015 [facility] [address] [id number] [address] [place] [address] 17 Apr, 2015 Unspecified essential hypert ension 401.9 [facility] [address] [id number] [address] [place] [address] 16 Apr, 2015 [facility] [address] [id number] [address] [place] [address] 16 Apr, 2015 [facility] [address] [id number] [address] [place] [address] Apr, [facility] [address] [id number] [address] [place] [address] Apr, [facility] [address] [id number] [address] [place] [address] Apr, [facility] [address] [id number] [address] [place] [address] Apr, [facility] [address] [id number] [address] [place] [address] March, Unspecified essential hypert ension 401.9 [facility] [address] [id number] [address] [place] [address] March, [facility] [address] [id number] [address] [place] [address] March, [facility] [address] [id number] [address] [place] [address] Feb, [facility] [address] [id number] [address] [place] [address] Feb, [facility] [address] [id number] [address] [place] [address] Jan, [facility] [address] [id number] [address] [place] [address], [place] [address] 23 Jan, 2014 [facility] [address] [id number] [address] [place] [address], [place] [address] 17 Jan, 2014 [facility] [address] [id number] [address] [place] [address], [place] [address] 17 Jan, 2014 [facility] [address] [id number] [address] [place] [address], [place] [address] 13 Jan, 2014 [facility] [address] [id number] [address] [place] [address], [place] [address] 02 Jan, 2014 [facility] [address] [id number] [address] [place] [address], [place] [address] 02 Jan, 2015 [facility] [address] [id number] [address] [place] [address], [place] [address] 16 Dec, 2014 [facility] [address] [id number] [address] [place] [address], [place] [address] 16 Dec, 2014 [facility] [address] [id number] [address] [place] [address], [place] [address] 13 Dec, 2014 [facility] [address] [id number] [address] [place] [address], [place] [address] Nov, [facility] [address] [id number] [address] [place] [address], [place] [address] Nov, [facility] [address] [id number] [address] [place] [address], [place] [address] Oct, [facility] [address] [id number] [address] [place] [address], [place] [address] Oct, [facility] [address] [id number] [address] [place] [address], [place] [address] Oct, [facility] [address] [id number] [address] [place] [address], [place] [address] Oct, [facility] [address] [id number] [address] [place] [address], [place] [address] Oct, [facility] [address] [id number] [address] [place] [address], [place] [address] Oct, [facility] [address] [id number] [address] [place] [address], [place] [address] Oct, [facility] [address] [id number] [address] [place] [address], [place] [address] Oct, [facility] [address] [id number] [address] [place] [address], [place] [address] Sep, [facility] [address] [id number] [address] [place] [address], [place] [address] Sep, [facility] [address] [id number] [address] [place] [address], [place] [address] Sep, [facility] [address] [id number] [address] [place] [address], [place] [address] Sep, [facility] [address] [id number] [address] [place] [address], [place] [address] Sep, [facility] [address] [id number] [address] [place] [address], [place] [address] Sep, [facility] [address] [id number] [address] [place] [address], [place] [address] Aug, [facility] [address] [id number] [address] [place] [address], [place] [address] Aug, [facility] [address] [id number] [address] [place] [address] Aug, [facility] [address] [id number] [address] [place] [address], [place] [address] Aug, [facility] [address] [id number] [address] [place] [address], [place] [address] Aug, [facility] [address] [id number] [address] [place] [address] Aug, [facility] [address] [id number] [address] [place] [address], [place] [address] 14 Aug, 2014 [facility] [address] [id number] [address] [place] [address], [place] [address] 14 Aug, 2014 [facility] [address] [id number] [address] [place] [address], [place] [address] Aug, [facility] [address] [id number] [address] [place] [address], [place] [address] Aug, [facility] [address] [id number] [address] [place] [address], [place] [address] Jul, [facility] [address] [id number] [address] [place] [address], [place] [address] Jul, [facility] [address] [id number] [address] [place] [address], [place] [id number] Jul, [facility] [address] [id number] [address] [place] [address], [place] [address] Jul, [facility] [address] [id number] [address] [place] [address], [place] [address] Jul, [facility] [address] [id number] [address] [place] [address], [place] [address] Jul, [facility] [address] [id number] [address] [place] [address], [place] [id number] Jun, [facility] [address] [id number] [address] [place] [address], [place] [address] Jun, [facility] [address] [id number] [address] [place] [address], [place] [id number] Jun, [facility] [address] [id number] [address] [place] [address], [place] [address] Jun, [facility] [address] [id number] [address] [place] [address], [place] [id number] Jun, [facility] [address] [id number] [address] [place] [address], [place] [address] Jun, [facility] [address] [id number] [facility] [place] [address] May, [facility] [address] [id number] [facility] [place] [address] May, [facility] [address] [id number] [facility] [place] [address] May, [facility] [address] [id number] [facility] [place] [address] May, [facility] [address] [id number] [facility] [place] [address] May, [facility] [address] [id number] [address] [place] [address], [place] [address] Apr, [facility] [address] [id number] [address] [place] [address], [place] [id number] Apr, [facility] [address] [id number] [address] [place] [address], [place] [address] Apr, [facility] [address] [id number] [address] [place] [address], [place] [id number] Apr, [facility] [address] [id number] [address] [place] [address], [place] [id number] March, [facility] [address] [id number] [address] [place] [address], [place] [id number] March, [facility] [address] [id number] [address] [place] [address], [place] [id number] March, [facility] [address] [id number] [address] [place] [address], [place] [address] March, [facility] [address] [id number] [address] [place] [address], [place] [address] March, [facility] [address] [id number] [address] [place] [address], [place] [id number] March, [facility] [address] [id number] [address] [place] [address], [place] [address] 14 Feb, 2014 [facility] [address] [id number] [facility] [place] [id number] 14 Feb, 2014 [facility] [place] [facility] [address] [id number] [facility] [place] [address] Feb, [facility] [place] [facility] [address] [id number] [facility] [place] [address] Feb, [facility] [place] [facility] [address] [id number] [address] [place] [address], [place] [address] Feb, [facility] [address] [id number] [address] [place] [address], [place] [id number] Feb, [facility] [place] [facility] [address] [id number] [address] [place] [address], [place] [id number] Feb, [facility] [place] [facility] [address] [id number] [address] [place] [address], [place] [address] Feb, [facility] [place] [facility] [address] [id number] [address] [place] [address], [place] [id number] Jan, [facility] [place] [facility] [address] [id number] [address] [place] [address], [place] [address] Jan, [facility] [place] [facility] [address] [id number] [address] [place] [address], [place] [address] Jan, [facility] [place] [facility] [address] [id number] [address] [place] [address], [place] [address] Jan, [facility] [place] [facility] [address] [id number] [address] [place] [address], [place] [address] Jan, [facility] [place] [address] [id number] [address] [place] [address], [place] [address] Jan, [facility] [place] [facility] [address] [id number] [address] [place] [address], [place] [address] Dec, [facility] [place] [facility] [address] [id number] [address] [place] [address], [place] [address] Dec, [facility] [place] [facility] [address] [id number] [address] [place] [address] Nov, [facility] [address] [id number] [address] [place] [address], [place] [address] Nov, [facility] [address] [id number] [address] [place] [address], [place] [id number] Nov, [facility] [address] [id number] [address] [place] [address], [place] [address] Nov, [facility] [address] [id number] [address] [place] [address], [place] [id number] Nov, [facility] [address] [id number] [address] [place] [address], [place] [address] Nov, [facility] [address] [id number] [address] [place] [address], [place] [address] Nov, [facility] [address] [id number] [address] [place] [address], [place] [address] Nov, [facility] [address] [id number] [address] [place] [address], [place] [address] Nov, [facility] [address] [id number] [address] [place] [address], [place] [address] Nov, [facility] [address] [id number] [address] [place] [address], [place] [address] Nov, [facility] [address] [id number] [address] [place] [address], [place] [address] Nov, [facility] [address] [id number] [address] [place] [address], [place] [address] Nov, [facility] [address] [id number] [address] [place] [address], [place] [id number] Nov, [facility] [address] [id number] [address] [place] [address], [place] [id number] Nov, [facility] [address] [id number] [address] [place] [address], [place] [id number] Oct, [facility] [address] [id number] [address] [place] [address] Oct, [facility] [address] [id number] [address] [place] [id number] Oct, [facility] [address] [id number] [address] [place] [id number] Oct, [facility] [address] [id number] [address] [place] [id number] Oct, [facility] [address] [id number] [address] [place] [address] Oct, [facility] [address] [id number] [address] [place] [id number] Oct, [facility] [address] [id number] [address] [place] [id number] Oct, [facility] [address] [id number] [address] [place] [id number] Oct, [facility] [address] [id number] [address] [place] [id number] Aug, [facility] [address] [id number] [address] [place] [id number] Aug, IMMUNIZATIONS No Known Immunizations SOCIAL HISTORY Never Assessed REASON FOR VISIT medication refill PLAN OF CARE VITAL SIGNS MEDICATIONS Medication Instructions Dosage Frequency Start Date End Date Duration S tatus Clonazepam 1 MG Orally Once a day at HS 1 tablet Sep, Active MS Contin 30 MG Orally every 12 hrs 1 tablet 12h Jan, 28 days Active Oxycodone HCl 10 mg Orally every 6 hrs 1 tablet as needed 6h Jan, 28 days Active MS Contin 15 MG Orally every 12 hrs 1 tablet 12h Jan, 28 days Active Clonazepam 0.5 MG Orally [...] by Dr. Troy Michelle pain specialist in [place], [place] Medical History Chronic low back pain [...]
--- OUTSIDE RECORDS SUMMARY | 2020-06-19 02:29 | XMS REPORT | Continuity of Care Document ---
Demographics Preferred Language Unknown Marital Status Unknown Jainism Affiliation Unknown Race Unknown Ethnic Group Unknown Author Organization Unknown Address Unknown Phone Unavailable Allergies Active Description Code Type Severity Reaction Onset Reported/Identified Relationship to Patient Clinical Status Yes metronidazole [id number] Tj g Allergy Mild HIVES 11/01/2006 Yes Flagyl Drug Allergy N/A N/A 09/23/2013 Yes Lyrica Drug Allergy N/A N/A 09/23/2013 Yes lisinopril 20 mg tablet Drug Allergy N/A N/A 03/03/2014 Yes duloxetine [id number] Drug Allerg y Unknown N/A 01/29/2018 Yes ibuprofen [id number] Drug Allergy Unknown N/A 01/29/2018 Yes pregabalin [id number] Drug Allerg y Unknown N/A 01/29/2018 Medications There is no data. Problems Date Dx Coded Attending Type Code Diagnosis Diagnosed By 09/23/2013 CANDE MAYA DO 338.29 PAIN - CHRONIC 09/23/2013 CANDE MAYA DO 401.1 HYPERTENSION, BENIGN ESSENTIAL 09/23/2013 ASHVIN ROBERTS MD 338 .29 PAIN - CHRONIC 09/23/2013 ASHVIN ROBERTS MD 401 .1 HYPERTENSION, BENIGN ESSENTIAL 09/23/2013 ASHVIN ROBERTS MD 338 .29 PAIN - CHRONIC 09/23/2013 ASHVIN ROBERTS MD 401 .1 HYPERTENSION, BENIGN ESSENTIAL 09/23/2013 CANDE MAYA DO 338.29 PAIN - CHRONIC 09/23/2013 CANDE MAYA DO 401.1 HYPERTENSION, BENIGN ESSENTIAL 09/23/2013 ASHVIN ROBERTS MD 338 .29 PAIN - CHRONIC 09/23/2013 ASHVIN ROBERTS MD 401 .1 HYPERTENSION, BENIGN ESSENTIAL 09/23/2013 ASHVIN ROBERTS MD 338 .29 PAIN - CHRONIC 09/23/2013 ASHVIN ROBERTS MD 401 .1 HYPERTENSION, BENIGN ESSENTIAL 09/23/2013 ASHVIN ROBERTS MD 338 .29 PAIN - CHRONIC 09/23/2013 ASHVIN ROBERTS MD 401 .1 HYPERTENSION, BENIGN ESSENTIAL 09/23/2013 CHIKIS POLANCO, SAUL Michel 338.29 PAIN - CHRONIC 09/23/2013 CHIKIS PHD, SAUL Michel 401.1 HYPERTENSION, BENIGN ESSENTIAL 09/23/2013 ARMANDO GUZMÁN, ASHVIN N 338 .29 PAIN - CHRONIC 09/23/2013 ASHVIN ROBERTS MD N 401 .1 HYPERTENSION, BENIGN ESSENTIAL 09/23/2013 ARMANDO GUZMÁN, ASHVIN N 338 .29 PAIN - CHRONIC 09/23/2013 ASHVIN ROBERTS MD 401 .1 HYPERTENSION, BENIGN ESSENTIAL 09/23/2013 DORINA MOSES MD 338.2 9 PAIN - CHRONIC 09/23/2013 DORINA MOSES MD 401.1 HYPERTENSION, BENIGN ESSENTIAL 09/23/2013 MAGALYS AUTOMATIC DEVELOPER, LISETH 338 .29 PAIN - CHRONIC 09/23/2013 MAGALYS AUTOMATIC DEVELOPER, LISETH 401 .1 HYPERTENSION, BENIGN ESSENTIAL 09/23/2013 ARMANDO GUZMÁN, ASHVIN N 338 .29 PAIN - CHRONIC 09/23/2013 ASHVIN ROBERTS MD N 401 .1 HYPERTENSION, BENIGN ESSENTIAL 09/23/2013 MAGALYS AUTOMATIC DEVELOPER, LISETH 338 .29 PAIN - CHRONIC 09/23/2013 MAGALYS AUTOMATIC DEVELOPER, LISETH 401 .1 HYPERTENSION, BENIGN ESSENTIAL 09/23/2013 ARMANDO GUZMÁN, ASHVIN N 338 .29 PAIN - CHRONIC 09/23/2013 ASHVIN ROBERTS MD N 401 .1 HYPERTENSION, BENIGN ESSENTIAL 09/23/2013 MAGALYS AUTOMATIC DEVELOPER, LISETH 338 .29 PAIN - CHRONIC 09/23/2013 MAGALYS AUTOMATIC DEVELOPER, LISETH 401 .1 HYPERTENSION, BENIGN ESSENTIAL 09/23/2013 MAYA DO, CANDE K 338.29 PAIN - CHRONIC 09/23/2013 MAYA DO, CANDE K 401.1 HYPERTENSION, BENIGN ESSENTIAL 09/23/2013 ARMANDO GUZMÁN, ASHVIN N 338 .29 PAIN - CHRONIC 09/23/2013 ASHVIN ROBERTS MD N 401 .1 HYPERTENSION, BENIGN ESSENTIAL 09/23/2013 ARMANDO GUZMÁN, ASHVIN N 338 .29 PAIN - CHRONIC 09/23/2013 ASHVIN ROBERTS MD N 401 .1 HYPERTENSION, BENIGN ESSENTIAL 09/23/2013 MAGALYS AUTOMATIC DEVELOPER, LISETH 338 .29 PAIN - CHRONIC 09/23/2013 MAGALYS AUTOMATIC DEVELOPER, LISETH 401 .1 HYPERTENSION, BENIGN ESSENTIAL 09/23/2013 ASHVIN ROBERTS MD N 338 .29 PAIN - CHRONIC 09/23/2013 ASHVIN ROBERTS MD N 401 .1 HYPERTENSION, BENIGN ESSENTIAL 09/23/2013 ASHVIN ROBERTS MD N 338 .29 PAIN - CHRONIC 09/23/2013 ASHVIN ROBERTS MD N 401 .1 HYPERTENSION, BENIGN ESSENTIAL 11/04/2013 ASHVIN ROBERTS MD N 311 DEPRESSIVE DISORDER NOT ELSEWHERE CLASSIFIED 11/04/2013 ASHVIN ROBERTS MD N 311 DEPRESSIVE DISORDER NOT ELSEWHERE CLASSIFIED 11/04/2013 MAYA DO, CANDE K 311 DEPRESSIVE DISORDER NOT ELSEWHERE [...] DEPRESSIVE DISORDER NOT ELSEWHERE CLASSIFIED 11/04/2013 MAGALYS AUTOMATIC DEVELOPER, LISETH 311 DEPRESSIVE DISORDER NOT ELSEWHERE CLASSIFIED 11/04/2013 ASHVIN ROBERTS MD N 311 DEPRESSIVE DISORDER NOT ELSEWHERE CLASSIFIED 11/04/2013 MAGALYS AUTOMATIC DEVELOPER, LISETH 311 DEPRESSIVE DISORDER NOT ELSEWHERE CLASSIFIED 11/04/2013 ASHVIN ROBERTS MD N 311 DEPRESSIVE DISORDER NOT ELSEWHERE CLASSIFIED 11/04/2013 MAGALYS AUTOMATIC DEVELOPER, LISETH 311 DEPRESSIVE DISORDER NOT ELSEWHERE CLASSIFIED 11/04/2013 MAYA DO, CANDE K 311 DEPRESSIVE DISORDER NOT ELSEWHERE CLASSIFIED 11/04/2013 ASHVIN ROBERTS MD N 311 DEPRESSIVE DISORDER NOT ELSEWHERE CLASSIFIED 11/04/2013 ASHVIN ROBERTS MD 311 DEPRESSIVE DISORDER NOT ELSEWHERE CLASSIFIED 11/04/2013 MAGALYS AUTOMATIC DEVELOPER, LISETH 311 DEPRESSIVE DISORDER NOT ELSEWHERE CLASSIFIED 11/04/2013 ASHVIN ROBERTS MD N 311 DEPRESSIVE DISORDER NOT ELSEWHERE CLASSIFIED 11/04/2013 ASHVIN ROBERTS MD N 311 DEPRESSIVE DISORDER NOT ELSEWHERE CLASSIFIED 11/05/2013 LASHAWN WHITTINGTON MD Ot 276. 8 HYPOPOTASSEMIA 11/05/2013 LASHAWN WHITTINGTON MD Ot 300. 00 ANXIETY STATE NOS 11/05/2013 LASHAWN WHITTINGTON MD Ot 305. 1 TOBACCO USE DISORDER 11/05/2013 LASHAWN WHITTINGTON MD Ot 401. 9 HYPERTENSION NOS 11/05/2013 LASHAWN WHITTINGTON MD Ot 414. 01 CORONARY ATHEROSCLEROSIS OF CROW CORON 11/05/2013 LASHAWN WHITTINGTON MD Ot 786. 50 CHEST PAIN NOS 11/05/2013 LASHAWN WHITTINGTON MD Ot 794. 30 ABN CARDIOVASC STUDY NOS 11/05/2013 LASHAWN WHITTINGTON MD Ot V45. 86 BARIATRIC SURGERY STATUS 11/05/2013 LASHAWN WHITTINGTON MD Ot V58. 69 OTH MED,LT,CURRENT USE 12/05/2013 MAYA DO, CANDE K 305.1 TOBACCO ABUSE 12/05/2013 MAYA DO, CANDE K 414.00 CAD 12/05/2013 ASHVIN ROBERTS MD 305 .1 TOBACCO ABUSE 12/05/2013 AHSVIN ROBERTS MD N 414 .00 CAD 12/05/2013 ASHVIN ROBERTS MD 305 .1 TOBACCO ABUSE 12/05/2013 ASHVIN ROBERTS MD N 414 .00 CAD 12/05/2013 ASHVIN ROBERTS MD N 305 .1 TOBACCO ABUSE 12/05/2013 ASHVIN ROBERTS MD N 414 .00 CAD 12/05/2013 CHIKIS PHD, SAUL Michel 305.1 TOBACCO ABUSE 12/05/2013 CHIKIS PHD, SAUL Michel 414.00 CAD 12/05/2013 ASHVIN ROBERTS MD 305 .1 TOBACCO ABUSE 12/05/2013 ASHVIN ROBERTS MD N 414 .00 CAD 12/05/2013 ASHVIN ROBERTS MD N 305 .1 TOBACCO ABUSE 12/05/2013 ASHVIN ROBERTS MD N 414 .00 CAD 12/05/2013 DORINA MOSES MD 305.1 TOBACCO ABUSE 12/05/2013 DORINA MOSES MD 414.0 0 CAD 12/05/2013 LISETH DOWELL APRN 305 .1 TOBACCO ABUSE 12/05/2013 LISETH DOWELL APRN 414 .00 CAD 12/05/2013 ASHVIN ROBERTS MD N 305 .1 TOBACCO ABUSE 12/05/2013 ASHVIN ROBERTS MD N 414 .00 CAD 12/05/2013 LISETH DOWELL APRN 305 .1 TOBACCO ABUSE 12/05/2013 LISETH DOWELL APRN 414 .00 CAD 12/05/2013 ASHVIN ROBERTS MD N 305 .1 TOBACCO ABUSE 12/05/2013 ASHVIN ROBERTS MD N 414 .00 CAD 12/05/2013 MAGALYS AUTOMATIC DEVELOPER, LISETH 305 .1 TOBACCO ABUSE 12/05/2013 MAGALYS MAEVE, LISETH 414 .00 CAD 12/05/2013 MAYA DO CANDE K 305.1 TOBACCO ABUSE 12/05/2013 MAYA DO, CANDE K 414.00 CAD 12/05/2013 ASHVIN ROBERTS MD N 305 .1 TOBACCO ABUSE 12/05/2013 ASHVIN ROEBRTS MD N 414 .00 CAD 12/05/2013 ASHVIN ROBERTS MD N 305 .1 TOBACCO ABUSE 12/05/2013 ASHVIN ROBERTS MD N 414 .00 CAD 12/05/2013 MAGALYS MCFARLANE LISETH 305 .1 TOBACCO ABUSE 12/05/2013 MAGALYS MCFARLANE LISETH 414 .00 CAD 12/05/2013 ASHVIN ROBERTS MD N 305 .1 TOBACCO ABUSE 12/05/2013 ASHVIN ROBERTS MD N 414 .00 CAD 12/05/2013 ASHVIN ROBERTS MD N 305 .1 TOBACCO ABUSE 12/05/2013 ASHVIN ROBERTS MD N 414 .00 CAD 02/26/2014 CHIKIS PHD, SAUL Michel 296.90 MOOD DISORDER NOS 02/26/2014 ASHVIN ROBERTS MD N 296 .90 MOOD DISORDER NOS 02/26/2014 ASHVIN ROBERTS MD N 296 .90 MOOD DISORDER NOS 02/26/2014 DORINA MOSES MD 296.9 0 MOOD DISORDER NOS 02/26/2014 MAGALYSKAY MCFARLANE, LISETH 296 .90 MOOD DISORDER NOS 02/26/2014 ASHVIN ROBERTS MD N 296 .90 MOOD DISORDER NOS 02/26/2014 MAGALYS MAEVE, LISETH 296 .90 MOOD DISORDER NOS 02/26/2014 ASHVIN ROBERTS MD N 296 .90 MOOD DISORDER NOS 02/26/2014 MAGALYS MCFARLANE LISETH 296 .90 MOOD DISORDER NOS 02/26/2014 MAYA DO, CANDE K 296.90 MOOD DISORDER NOS 02/26/2014 ASHVIN ROBERTS MD N 296 .90 MOOD DISORDER NOS 02/26/2014 ASHVIN ROBERTS MD N 296 .90 MOOD DISORDER NOS 02/26/2014 MAGALYS AUTOMATIC DEVELOPER, LISETH 296 .90 MOOD DISORDER NOS 02/26/2014 ASHVIN ROBERTS MD N 296 .90 MOOD DISORDER NOS 02/26/2014 ASHVIN ROBERTS MD N 296 .90 MOOD DISORDER NOS 06/19/2014 LISETH DOWELL APRN 296 .89 MO BIPOLAR II 06/19/2014 ASHVIN ROBERTS MD 296 .89 MO BIPOLAR II 06/19/2014 LISETH DOWELL APRN 296 .89 MO BIPOLAR II 06/19/2014 MAYA DO, CANDE K 296.89 MO BIPOLAR II 06/19/2014 ASHVIN ROBERTS MD N 296 .89 MO BIPOLAR II 06/19/2014 ASHVIN ROBERTS MD N 296 .89 MO BIPOLAR II 06/19/2014 LISETH DOWELL APRN 296 .89 MO BIPOLAR II 06/19/2014 ASHVIN ROBERTS MD N 296 .89 MO BIPOLAR II 06/19/2014 ASHVIN ROBERTS MD N 296 .89 MO BIPOLAR II 2014 MAYA DO, CANDE K 272.4 HYPERLIPIDEMIA 2014 MAYA DO, CANDE K 401.9 HYPERTENSION, UNSPECIFIED ESSENTIAL 2014 ASHVIN ROBERTS MD N 272 .4 HYPERLIPIDEMIA 2014 ASHVIN ROBERTS MD N 401 .9 HYPERTENSION, UNSPECIFIED ESSENTIAL 2014 ASHVIN ROBERTS MD N 272 .4 HYPERLIPIDEMIA 2014 ASHVIN ROBERTS MD N 401 .9 HYPERTENSION, UNSPECIFIED ESSENTIAL 2014 LISETH DOWELL APRN 272 .4 HYPERLIPIDEMIA 2014 LISETH DOWELL APRN 401 .9 HYPERTENSION, UNSPECIFIED ESSENTIAL 2014 ASHVIN ROBERTS MD N 272 .4 HYPERLIPIDEMIA 2014 ASHVIN ROBERTS MD N 401 .9 HYPERTENSION, UNSPECIFIED ESSENTIAL 2014 ASHVIN ROBERTS MD N 272 .4 HYPERLIPIDEMIA 2014 ASHVIN ROBERTS MD N 401 .9 HYPERTENSION, UNSPECIFIED ESSENTIAL 09/15/2014 ASHVIN ROBERTS MD N V65 .42 COUNSELING - SMOKING CESSATION 09/15/2014 ASHVIN ROBERTS MD V72 .31 HEALTHCARE RECEPTIONIST EXAM, ROUTINE 09/15/2014 ASHVIN ROBERTS MD V76 .10 BREAST CANCER SCREENING 09/15/2014 LISETH DOWELL APRN V65 .42 COUNSELING - SMOKING CESSATION 09/15/2014 LISETH DOWELL APRN V72 .31 HEALTHCARE RECEPTIONIST EXAM, ROUTINE 09/15/2014 LISETH DOWELL APRN V76 .10 BREAST CANCER SCREENING 09/15/2014 ASHVIN ROBERTS MD V65 .42 COUNSELING - SMOKING CESSATION 09/15/2014 ASHVIN ROBERTS MD V72 .31 HEALTHCARE RECEPTIONIST EXAM, ROUTINE 09/15/2014 ASHVIN ROBERTS MD V76 .10 BREAST CANCER SCREENING 09/15/2014 ASHVIN ROBERTS MD V65 .42 COUNSELING - SMOKING CESSATION 09/15/2014 ASHVIN ROBERTS MD V72 .31 HEALTHCARE RECEPTIONIST EXAM, ROUTINE 09/15/2014 ASHVIN ROBERTS MD V76 .10 BREAST CANCER SCREENING 10/21/2014 NEEMA GODOY APRN Ot V76.12 11/17/2014 MARIO GUZMÁN, IONA Guajardo Ot 455.0 11/17/2014 MARIO GUZMÁN, IONA Guajardo Ot 562.10 12/11/2014 ASHVIN ROBERTS MD N 461 .9 SINUSITIS ACUTE 12/11/2014 ASHVIN ROBERTS MD 461 .9 SINUSITIS ACUTE 03/12/2015 ASHVIN ROBERTS MD N 300 .02 GENERALIZED ANXIETY DISORDER 03/12/2015 ASHVIN ROBERST MD N 780 .79 FATIGUE 02/03/2016 MARIO GUZMÁN, IONA Guajardo Ot 455.0 02/03/2016 MARIO GUZMÁN, IONA Guajardo Ot 562.10 02/03/2016 MARIO GUZMÁN, IONA Guajardo Ot V72.84 02/03/2016 NEEMA GODOY APRN Ot V76.12 02/07/2016 ASHVIN ROBERTS MD Ot M25.511 02/07/2016 ASHVIN ROBERTS MD N Ot M81 .0 02/29/2016 ASHVIN ROBERTS MD Ot M25.511 02/29/2016 ASHVIN ROBERTS MD Ot M81 .0 09/14/2016 MARIO GUZMÁN, IONA Guajardo Ot 455.0 INT HEMORRHOID W/O COMPL 09/14/2016 MARIO GUZMÁN, IONA Guajardo Ot 562.10 DIVERTICULOSIS COLON (W/O MENT OF HEMORR 09/14/2016 MARIO GUZMÁN, IONA Guajardo Ot V72.84 EXAM PRE-OPERATIVE NOS 09/14/2016 NEEMA GODOY AUTOMATIC DEVELOPER Ot V76.12 OTH SCREEN MAMMO-MALIGN NEOPLASM OF RYAN 09/14/2016 ASHVIN ROBERTS MD Ot M25.511 PAIN IN RIGHT SHOULDER 09/14/2016 ASHVIN ROBERTS MD Ot M81 .0 AGE-RELATED OSTEOPOROSIS W/O CURRENT PAT 09/14/2016 ASHVIN [...] Z12.31 ENCNTR SCREEN MAMMOGRAM FOR MALIGNANT NE 01/30/2018 LIVE DENT MD Ot E78.00 PURE HYPERCHOLESTEROLEMIA, UNSPECIFIED 01/30/2018 LIVE DENT MD Ot F11.20 OPIOID DEPENDENCE, UNCOMPLICATED 01/30/2018 LIVE DENT MD Ot F12.90 CANNABIS USE, UNSPECIFIED, UNCOMPLICATED 01/30/2018 LIVE DENT MD Ot F17.210 NICOTINE DEPENDENCE, CIGARETTES, UNCOMPL 01/30/2018 LIVE DENT MD Ot F32 .9 MAJOR DEPRESSIVE DISORDER, SINGLE EPISOD 01/30/2018 LIVE DENT MD, Ot F41 .9 ANXIETY DISORDER, UNSPECIFIED 01/30/2018 LIVE DENT MD Ot G89 .4 CHRONIC PAIN SYNDROME 01/30/2018 LIVE DENT MD Ot I12 .9 HYPERTENSIVE CHRONIC KIDNEY DISEASE W ST 01/30/2018 LIVE DENT MD, Ot J44 .9 CHRONIC OBSTRUCTIVE PULMONARY DISEASE, U 01/30/2018 LIVE DENT MD Ot K21 .9 GASTRO-ESOPHAGEAL REFLUX DISEASE WITHOUT 01/30/2018 FILIPE MD, LIVE A Ot K59.09 OTHER CONSTIPATION 01/30/2018 LIVE DENT MD Ot M94 .0 CHONDROCOSTAL JUNCTION SYNDROME [TIETZE] 01/30/2018 LIVE DENT MD Ot N18 .9 CHRONIC KIDNEY DISEASE, UNSPECIFIED 01/30/2018 LIVE DENT MD Ot R07.89 OTHER CHEST PAIN 01/30/2018 LIVE DENT MD Ot R73 .9 HYPERGLYCEMIA, UNSPECIFIED 01/30/2018 LIVE DENT MD Ot Z79.82 EXTRUSION DIE TEMPLATE MAKER (CURRENT) USE OF ASPIRIN 01/30/2018 LIVE DENT MD Ot Z79.899 OTHER EXTRUSION DIE TEMPLATE MAKER (CURRENT) DRUG THERAPY 08/12/2018 ASHVIN ROBERTS MD Ot Z12.31 ENCNTR SCREEN MAMMOGRAM FOR MALIGNANT NE 08/13/2018 IONA MARTIN MD Ot 455.0 INT HEMORRHOID W/O COMPL 08/13/2018 IONA MARTIN MD Ot 562.10 DIVERTICULOSIS COLON (W/O MENT OF HEMORR 08/13/2018 IONA MARTIN MD Ot V72.84 EXAM PRE-OPERATIVE NOS 08/13/2018 NEEMA GODOY APRN Ot V76.12 OTH SCREEN MAMMO-MALIGN NEOPLASM OF RYAN 08/13/2018 ASHVIN ROBERTS MD Ot M25.511 PAIN IN RIGHT SHOULDER 08/13/2018 ASHVIN ROBERTS MD Ot M81 .0 AGE-RELATED OSTEOPOROSIS W/O CURRENT PAT 08/13/2018 ASHVIN ROBERTS MD Ot Z12.31 ENCNTR SCREEN MAMMOGRAM FOR MALIGNANT NE 08/13/2018 ASHVIN ROBERTS MD Ot Z12.31 ENCNTR SCREEN MAMMOGRAM FOR MALIGNANT NE 08/14/2018 ASHIVN ROBERTS MD Ot Z12.31 ENCNTR SCREEN MAMMOGRAM FOR MALIGNANT NE 09/11/2018 ASHVIN ROBERTS MD Ot Z12.31 ENCNTR SCREEN MAMMOGRAM FOR MALIGNANT NE 12/11/2018 ASHVIN ROBERTS MD Ot M81 .0 AGE-RELATED OSTEOPOROSIS W/O CURRENT PAT 12/11/2018 IONA MARTIN MD Ot 455.0 INT HEMORRHOID W/O COMPL 12/11/2018 MARTIN MD, IONA M Ot 562.10 DIVERTICULOSIS COLON (W/O MENT OF HEMORR 12/11/2018 MARIO GUZMÁN, IONA M Ot V72.84 EXAM PRE-OPERATIVE NOS 12/11/2018 NEEMA GODOY A AUTOMATIC DEVELOPER Ot V76.12 OTH SCREEN MAMMO-MALIGN NEOPLASM OF RYAN 12/11/2018 ASHVIN ROBERTS MD Ot M25.511 PAIN IN RIGHT SHOULDER 12/11/2018 ASHVIN ROBERTS MD Ot M81 .0 AGE-RELATED OSTEOPOROSIS W/O CURRENT PAT 12/11/2018 ASHVIN ROBERTS MD Ot Z12.31 ENCNTR SCREEN MAMMOGRAM FOR MALIGNANT NE 12/11/2018 ASHVIN ROBERTS MD Ot Z12.31 ENCNTR SCREEN MAMMOGRAM FOR MALIGNANT NE 12/11/2018 ASHVIN ROBERTS MD Ot M81 .0 AGE-RELATED OSTEOPOROSIS W/O CURRENT PAT 12/11/2018 ASHVIN ROBERTS MD Ot M81 .0 AGE-RELATED OSTEOPOROSIS W/O CURRENT PAT 12/11/2018 ASHVIN ROBERTS MD Ot M81 .0 AGE-RELATED OSTEOPOROSIS W/O CURRENT PAT 12/12/2018 MARIO GUZMÁN, IONA M Ot 455.0 INT HEMORRHOID W/O COMPL 12/12/2018 MARIO GUZMÁN, IONA M Ot 562.10 DIVERTICULOSIS COLON (W/O MENT OF HEMORR 12/12/2018 MARIO GUZMÁN, IONA M Ot V72.84 EXAM PRE-OPERATIVE NOS 12/12/2018 NEEMA GODOY A AUTOMATIC DEVELOPER Ot V76.12 OTH SCREEN MAMMO-MALIGN NEOPLASM OF RYAN 12/12/2018 ASHVIN ROBERTS MD Ot M25.511 PAIN IN RIGHT SHOULDER 12/12/2018 ASHVIN ROBERTS MD Ot M81 .0 AGE-RELATED OSTEOPOROSIS W/O CURRENT PAT 12/12/2018 ASHVIN ROBERTS MD Ot Z12.31 ENCNTR SCREEN MAMMOGRAM FOR MALIGNANT NE 12/12/2018 ASHVIN ROBERTS MD Ot Z12.31 ENCNTR SCREEN MAMMOGRAM FOR MALIGNANT NE 12/12/2018 ASHVIN ROBERTS MD N Ot M81 .0 AGE-RELATED OSTEOPOROSIS W/O CURRENT PAT 12/13/2018 ASHVIN ROBERTS MD Ot M81 .0 AGE-RELATED OSTEOPOROSIS W/O CURRENT PAT 12/13/2018 ASHVIN ROBERTS MD Ot M85.88 OT DISRD OF BONE DENSITY AND STRUCTURE, 12/13/2018 ASHVIN ROBERTS MD Ot Z13.820 ENCOUNTER FOR SCREENING FOR OSTEOPOROSIS 12/17/2018 ASHVIN ROBERTS MD Ot M46.84 OTH INFLAMMATORY SPONDYLOPATHIES, THORAC 12/17/2018 ASHVIN ROBERTS MD Ot M46.86 OTHER SPECIFIED INFLAMMATORY SPONDYLOPAT 12/17/2018 ASHVIN ROBERTS MD Ot M47.814 SPONDYLOSIS W/O MYELOPATHY OR RADICULOPA 12/17/2018 ASHVIN ROBERTS MD Ot M48.04 SPINAL STENOSIS, THORACIC REGION 12/17/2018 ASHVIN ROBERTS MD Ot M48.07 SPINAL STENOSIS, LUMBOSACRAL REGION 12/17/2018 ASHVIN ROBERTS MD Ot M51.17 INTVRT DISC DISORDERS W RADICULOPATHY, L 12/17/2018 ASHVIN ROBERTS MD Ot M51.24 OTHER INTERVERTEBRAL DISC DISPLACEMENT, 12/17/2018 ASHVIN ROBERTS MD Ot M51.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, 12/17/2018 ASHVIN ROBERTS MD Ot Z98 .1 ARTHRODESIS STATUS 12/18/2018 ASHVIN ROBERTS MD Ot M81 .0 AGE-RELATED OSTEOPOROSIS W/O CURRENT PAT 12/18/2018 ASHVIN ROBERTS MD Ot M85.88 OT DISRD OF BONE DENSITY AND STRUCTURE, 12/18/2018 ASHVIN ROBERTS MD Ot Z13.820 ENCOUNTER FOR SCREENING FOR OSTEOPOROSIS 12/18/2018 ASHVIN ROBERTS MD Ot M46.84 OTH INFLAMMATORY SPONDYLOPATHIES, THORAC 12/18/2018 ASHVIN ROBERTS MD Ot M46.86 OTHER SPECIFIED INFLAMMATORY SPONDYLOPAT 12/18/2018 ASHVIN ROBERTS MD Ot M47.814 SPONDYLOSIS W/O MYELOPATHY OR RADICULOPA 12/18/2018 ASHVIN ROBERTS MD Ot M48.04 SPINAL STENOSIS, THORACIC REGION 12/18/2018 ASHVIN ROBERTS MD Ot M48.07 SPINAL STENOSIS, LUMBOSACRAL REGION 12/18/2018 ASHVIN ROBERTS MD Ot M51.17 INTVRT DISC DISORDERS W RADICULOPATHY, L 12/18/2018 ASHVIN ROBERTS MD Ot M51.24 OTHER INTERVERTEBRAL DISC DISPLACEMENT, 12/18/2018 ASHVIN ROBERTS MD Ot M51.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, 12/18/2018 ASHVIN ROBERTS MD Ot Z98 .1 ARTHRODESIS STATUS 12/18/2018 ASHVIN ROBERTS MD Ot M46.84 OTH INFLAMMATORY SPONDYLOPATHIES, THORAC 12/18/2018 ASHVIN ROBERTS MD Ot M46.86 OTHER SPECIFIED INFLAMMATORY SPONDYLOPAT 12/18/2018 ASHVIN ROBERTS MD Ot M47.814 SPONDYLOSIS W/O MYELOPATHY OR RADICULOPA 12/18/2018 ASHVIN ROBERTS MD Ot M48.04 SPINAL STENOSIS, THORACIC REGION 12/18/2018 ASHVIN ROBERTS MD Ot M48.07 SPINAL STENOSIS, LUMBOSACRAL REGION 12/18/2018 ASHVIN ROBERTS MD Ot M51.17 INTVRT DISC DISORDERS W RADICULOPATHY, L 12/18/2018 ASHVIN ROBERTS MD Ot M51.24 OTHER INTERVERTEBRAL DISC DISPLACEMENT, 12/18/2018 ASHVIN ROBERTS MD Ot M51.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, 12/18/2018 ASHVIN ROBERTS MD Ot Z98 .1 ARTHRODESIS STATUS 12/18/2018 ASHVIN ROBERTS MD Ot M46.84 OTH INFLAMMATORY SPONDYLOPATHIES, THORAC 12/18/2018 ASHVIN ROBERTS MD Ot M46.86 OTHER SPECIFIED INFLAMMATORY SPONDYLOPAT 12/18/2018 ASHVIN ROBERTS MD Ot M47.814 SPONDYLOSIS W/O MYELOPATHY OR RADICULOPA 12/18/2018 ASHVIN ROBERTS MD Ot M48.04 SPINAL STENOSIS, THORACIC REGION 12/18/2018 ASHVIN ROBERTS MD Ot M48.07 SPINAL STENOSIS, LUMBOSACRAL REGION 12/18/2018 ASHVIN ROBERTS MD Ot M51.17 INTVRT DISC DISORDERS W RADICULOPATHY, L 12/18/2018 ASHVIN ROBERTS MD Ot M51.24 OTHER INTERVERTEBRAL DISC DISPLACEMENT, 12/18/2018 ASHVIN ROBERTS MD Ot M51.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, 12/18/2018 ASHVIN ROBERTS MD Ot Z98 .1 ARTHRODESIS STATUS 01/03/2019 ASHVIN ROBERTS MD Ot M81 .0 AGE-RELATED OSTEOPOROSIS W/O CURRENT PAT 01/03/2019 ASHVIN ROBERTS MD Ot M85.88 OT DISRD OF BONE DENSITY AND STRUCTURE, 01/03/2019 ASHVIN ROBERTS MD Ot Z13.820 ENCOUNTER FOR SCREENING FOR OSTEOPOROSIS 01/08/2019 ASHVIN ROBERTS MD Ot M46.84 OTH INFLAMMATORY SPONDYLOPATHIES, THORAC 01/08/2019 ASHVIN ROBERTS MD Ot M46.86 OTHER SPECIFIED INFLAMMATORY SPONDYLOPAT 01/08/2019 ASHVIN ROBERTS MD Ot M47.814 SPONDYLOSIS W/O MYELOPATHY OR RADICULOPA 01/08/2019 ASHVIN ROBERTS MD Ot M48.04 SPINAL STENOSIS, THORACIC REGION 01/08/2019 ASHVIN ROBERTS MD Ot M48.07 SPINAL STENOSIS, LUMBOSACRAL REGION 01/08/2019 ASHVIN ROBERTS MD Ot M51.17 INTVRT DISC DISORDERS W RADICULOPATHY, L 01/08/2019 ASHVIN ROBERTS MD Ot M51.24 OTHER INTERVERTEBRAL DISC DISPLACEMENT, 01/08/2019 ASHVIN ROBERTS MD Ot M51.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, 01/08/2019 ASHVIN ROBERTS MD Ot Z98 .1 ARTHRODESIS STATUS 01/14/2019 ASHVIN ROBERTS MD Ot M81 .0 AGE-RELATED OSTEOPOROSIS W/O CURRENT PAT 01/14/2019 ASHVIN ROBERTS MD Ot M85.88 OT DISRD OF BONE DENSITY AND STRUCTURE, 01/14/2019 ASHVIN ROEBRTS MD Ot Z13.820 ENCOUNTER FOR SCREENING FOR OSTEOPOROSIS 01/14/2019 ASHVIN ROBERTS MD Ot M47.812 SPONDYLOSIS W/O MYELOPATHY OR RADICULOPA 01/14/2019 ASHVIN ROBERTS MD Ot M48.02 SPINAL STENOSIS, CERVICAL REGION 01/14/2019 ASHVIN ROBERTS MD, Ot M50.30 OTHER CERVICAL DISC DEGENERATION, UNSP C 01/20/2019 ASHVIN ROBERTS MD Ot M46.84 OTH INFLAMMATORY SPONDYLOPATHIES, THORAC 01/20/2019 ASHVIN ROBERTS MD Ot M46.86 OTHER SPECIFIED INFLAMMATORY SPONDYLOPAT 01/20/2019 ASVHIN ROBERTS MD Ot M47.814 SPONDYLOSIS W/O MYELOPATHY OR RADICULOPA 01/20/2019 ASHVIN ROBERTS MD Ot M48.04 SPINAL STENOSIS, THORACIC REGION 01/20/2019 ASHVIN ROBERTS MD Ot M48.07 SPINAL STENOSIS, LUMBOSACRAL REGION 01/20/2019 ASHVIN ROBERTS MD Ot M51.17 INTVRT DISC DISORDERS W RADICULOPATHY, L 01/20/2019 ASHVIN ROBERTS MD Ot M51.24 OTHER INTERVERTEBRAL DISC DISPLACEMENT, 01/20/2019 ASHVIN ROBERTS MD Ot M51.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, 01/20/2019 ASHVIN ROBERTS MD Ot Z98 .1 ARTHRODESIS STATUS 01/20/2019 ASHVIN ROBERTS MD Ot M47.812 SPONDYLOSIS W/O MYELOPATHY OR RADICULOPA 01/20/2019 ASHVIN ROBERTS MD Ot M48.02 SPINAL STENOSIS, CERVICAL REGION 01/20/2019 ASHVIN ROBERTS MD Ot M50.30 OTHER CERVICAL DISC DEGENERATION, UNSP C Procedures Code Description [place] [address] STRE SS TEST, CARDIAC (SPECIFY TYPE) 11/04/2013 Cardiolog Lashawn Whittington 11/04/2013 60482 PSYC H DIAGNOSTIC EVALUATION 11/28/2013 J3420 cyan ocobalamin (vitamin B-12) 1,000 mcg/mL solution 11/28/2013 24624 URIN E DRUG SCREEN (IN-HOUSE) 11/28/2013 92658 THER APUTIC INJ SQ/IM 12/05/2013 60805 THER APUTIC INJ SQ/IM 12/05/2013 PHYSICAL P HYSICAL THERAPY, VIA [facility] 01/06/2014 22284 PSYT X PT&/FAMILY 30 MINUTES 02/26/2014 2000F BLOO D PRESSURE CHECK 03/06/2014 89736 [employer] 06/05/2014 37244 ROUT INE VENIPUNCTURE 09/15/2014 10627 MAMM OGRAM, SCREENING 09/15/2014 16498 CMP 09/15/2014 04608 LIPI D PANEL 09/15/2014 23045 [employer] 12/11/2014 91473 ROUT INE VENIPUNCTURE 03/12/2015 61178 CBC 03/12/2015 02191 TSH 03/12/2015 Results Test Result Range CBC With Differential/Platelet - 7 13:06 WBC 6.9 x10E3/uL 3.4-10.8 RBC 4.00 x10E6/uL 3.77-5.28 Hemoglobin 12.1 g/dL 11.1-15.9 Hematocrit 36.0 % 34.0-46.6 MCV 90 fL 79-97 MCH 30.3 pg 26.6-33.0 MCHC 33.6 g/dL 31.5-35.7 RDW 12.7 % 12.3-15.4 Platelets 294 x10E3/uL 150-379 Neutrophils 58 % Lymphs 34 % Monocytes 6 % Eos 2 % Basos 0 % Neutrophils (Absolute) 4.0 x10E3/uL 1.4- 7.0 Lymphs (Absolute) 2.3 x10E3/uL 0.7-3.1 Monocytes(Absolute) 0.4 x10E3/uL 0.1-0.9 Eos (Absolute) 0.1 x10E3/uL 0.0-0.4 Baso (Absolute) 0.0 x10E3/uL 0.0-0.2 Immature Granulocytes 0 % Immature Grans (Abs) 0.0 x10E3/uL 0.0-0. 1 Comp. Metabolic Panel (14) - 12/29/16 13 :06 Glucose, Serum 91 mg/dL 65-99 BUN 23 mg/dL 6-24 Creatinine, Serum 1.58 mg/dL 0.57-1.00 eGFR If NonAfricn Am 38 mL/min/1.73 >59 eGFR If Africn Am 44 mL/min/1.73 >59 BUN/Creatinine Ratio 15 9-23 Sodium, Serum 146 mmol/L 134-144 Potassium, Serum 3.6 mmol/L 3.5-5.2 Chloride, Serum 103 mmol/L 96-106 Carbon Dioxide, Total 27 mmol/L 18-29 Calcium, Serum 9.0 mg/dL 8.7-10.2 Protein, Total, Serum 5.7 g/dL 6.0-8.5 Albumin, Serum 3.6 g/dL 3.5-5.5 Globulin, Total 2.1 g/dL 1.5-4.5 A/G Ratio 1.7 1.1-2.5 Bilirubin, Total 0.2 mg/dL 0.0-1.2 Alkaline Phosphatase, S 78 IU/L 39-117 AST (SGOT) 11 IU/L 0-40 ALT (SGPT) 12 IU/L 0-32 Lipid Panel - 12/29/16 13:06 Cholesterol, Total 154 mg/dL 100-199 Triglycerides 124 mg/dL 0-149 HDL Cholesterol 59 mg/dL >39 VLDL Cholesterol Tho 25 mg/dL 5-40 LDL Cholesterol Calc 70 mg/dL 0-99 Vitamin B12 - 12/29/16 13:06 Vitamin B12 528 pg/mL 211-946 Basic Metabolic Panel (8) - 01/16/17 12: 51 Glucose, Serum 93 mg/dL 65-99 BUN 19 mg/dL 6-24 Creatinine, Serum 1.38 mg/dL 0.57-1.00 eGFR If NonAfricn Am 45 mL/min/1.73 >59 eGFR If Africn Am 51 mL/min/1.73 >59 BUN/Creatinine Ratio 14 9-23 Sodium, Serum 148 mmol/L 134-144 Potassium, Serum 4.2 mmol/L 3.5-5.2 Chloride, Serum 104 mmol/L 96-106 Carbon Dioxide, Total 30 mmol/L 18-29 Calcium, Serum 9.5 mg/dL 8.7-10.2 Basic Metabolic Panel (8) - 01/23/17 13: 27 Glucose, Serum 94 mg/dL 65-99 BUN 24 mg/dL 6-24 Creatinine, Serum 1.50 mg/dL 0.57-1.00 eGFR If NonAfricn Am 40 mL/min/1.73 >59 eGFR If Africn Am 46 mL/min/1.73 >59 BUN/Creatinine Ratio 16 9-23 Sodium, Serum 144 mmol/L 134-144 Potassium, Serum 4.2 mmol/L 3.5-5.2 Chloride, Serum 104 mmol/L 96-106 Carbon Dioxide, Total 26 mmol/L 18-29 Calcium, Serum 9.4 mg/dL 8.7-10.2 Comp. Metabolic Panel (14) - 02/22/17 13 :00 Glucose, Serum 98 mg/dL 65-99 BUN 23 mg/dL 6-24 Creatinine, Serum 1.53 mg/dL 0.57-1.00 eGFR If NonAfricn Am 39 mL/min/1.73 >59 eGFR If Africn Am 45 mL/min/1.73 >59 BUN/Creatinine Ratio 15 9-23 Sodium, Serum 144 mmol/L 134-144 Potassium, Serum 4.3 mmol/L 3.5-5.2 Chloride, Serum 102 mmol/L 96-106 Carbon Dioxide, Total 25 mmol/L 18-29 Calcium, Serum 9.6 mg/dL 8.7-10.2 Protein, Total, Serum 6.4 g/dL 6.0-8.5 Albumin, Serum 3.7 g/dL 3.5-5.5 Globulin, Total 2.7 g/dL 1.5-4.5 A/G Ratio 1.4 1.2-2.2 Bilirubin, Total 0.4 mg/dL 0.0-1.2 Alkaline Phosphatase, S 109 IU/L 39-117 AST (SGOT) 13 IU/L 0-40 ALT (SGPT) 13 IU/L 0-32 Basic Metabolic Panel (8) - 03/28/17 12: 58 Glucose, Serum 89 mg/dL 65-99 BUN 18 mg/dL 6-24 Creatinine, Serum 1.26 mg/dL 0.57-1.00 eGFR If NonAfricn Am 50 mL/min/1.73 >59 eGFR If Africn Am 57 mL/min/1.73 >59 BUN/Creatinine Ratio 14 9-23 Sodium, Serum 145 mmol/L 134-144 Potassium, Serum 4.1 mmol/L 3.5-5.2 Chloride, Serum 102 mmol/L 96-106 Carbon Dioxide, Total 28 mmol/L 18-29 Calcium, Serum 9.2 mg/dL 8.7-10.2 CBC - 10/17/17 12:23 WHITE BLOOD CELL COUNT 6.6 Thousand/uL 3 .8-10.8 RED BLOOD CELL COUNT 4.32 Million/uL 3.8 0-5.10 HEMOGLOBIN 13.5 g/dL 11.7-15.5 HEMATOCRIT 41.2 % 35.0-45.0 MCV 95.4 fL 80.0-100.0 MCH 31.3 pg 27.0-33.0 MCHC 32.8 g/dL 32.0-36.0 RDW 11.3 % 11.0-15.0 PLATELET COUNT 360 Thousand/uL 140-400 MPV 10.8 fL 7.5-12.5 ABSOLUTE NEUTROPHILS 3366 cells/uL 1500- 7800 ABSOLUTE LYMPHOCYTES 2660 cells/uL 850-3 900 ABSOLUTE MONOCYTES 429 cells/uL 200-950 ABSOLUTE EOSINOPHILS 92 cells/uL 15-500 ABSOLUTE BASOPHILS 53 cells/uL 0-200 NEUTROPHILS 51 % NRG LYMPHOCYTES 40.3 % NRG MONOCYTES 6.5 % NRG EOSINOPHILS 1.4 % NRG BASOPHILS 0.8 % NRG TSH - 10/17/17 12:23 TSH 2.23 mIU/L NRG Complete blood count (CBC) with automate d white blood cell (WBC) differential - 01/29/18 19:44 Blood leukocytes automated count (number/volume) 7.3 10*3/uL 4.3-11.0 Blood erythrocytes automated count (number/volume) 4.16 10*6/uL 4.35-5.85 Venous blood hemoglobin measurement (mass/volume) 13.2 g/dL 11.5-16.0 Blood hematocrit (volume fraction) 39 % 35-52 Automated erythrocyte mean corpuscular volume 95 [ foz_us] 80-99 Automated erythrocyte mean corpuscular h emoglobin (mass per erythrocyte) 32 pg 25-34 Automated erythrocyte mean corpuscular h emoglobin concentration measurement (mass/volume) 34 g/dL 32-36 Automated erythrocyte distribution width ratio 12. 7 % 10.0- 14.5 Automated blood platelet count (count/volume) 313 10*3/uL [...] 10*3 1.0-4.0 Blood monocytes automated count (number/volume) 0. 0 10*3 0.0-1.0 Automated eosinophil count 0.0 10*3/uL 0 .0-0.3 Automated blood basophil count (count/volume) 0.0 10*3/uL 0.0-0.1 PT panel in platelet poor plasma by coag ulation assay - 01/29/18 19:44 Prothrombin time (PT) in platelet poor plasma by coagu lation assay 11.7 s 12.2-14.7 INR in platelet poor plasma or blood by coagulation as say 0.9 0.8-1.4 Activated partial thromboplastin time (a PTT) in platelet poor plasma bycoagulation assay - 01/29/18 19:44 Activated partial thromboplastin time (a PTT) in platelet poor plasma bycoagulation assay 35 s 24-35 Blood manual differential performed dete ction - 01/29/18 19:44 Blood monocytes/100 leukocytes 0 % NRG Manual blood segmented neutrophils/100 leukocytes 92 % NRG Blood band neutrophils/100 leukocytes 0 % NRG Manual blood lymphocytes/100 leukocytes 8 % NRG Manual eosinophils/100 leukocytes in nose 0 % NRG Manual blood basophils/100 leukocytes 0 % NRG Blood erythrocyte morphology finding identification NORMAL NRG Comprehensive metabolic panel - 01/29/18 19:44 Serum or plasma sodium measurement (moles/volume) 140 mmol/L 135-145 Serum or plasma potassium measurement (moles/volume) 3.5 mmol/L 3.6-5.0 Serum or plasma chloride measurement (moles/volume) 104 mmol/L 98-107 Carbon dioxide 22 mmol/L 21-32 Serum or plasma anion gap determination (moles/volume) 14 mmol/L 5-14 Serum or plasma urea nitrogen measurement (mass/volume ) 20 mg/dL 7-18 Serum or plasma creatinine measurement (mass/volume) 1.34 mg/dL 0.60-1.30 Serum or plasma urea nitrogen/creatinine mass ratio 15 NRG Serum or plasma creatinine measurement w ith calculation of estimated glomerular filtration rate 42 NRG Serum or plasma glucose measurement (mass/volume) 201 mg/dL 70-105 Serum or plasma calcium measurement (mass/volume) 8.8 mg/dL 8.5-10.1 Serum or plasma total bilirubin measurement (mass/volu me) 0.4 mg/dL 0.1-1.0 Serum or plasma alkaline phosphatase luz surement (enzymatic activity/volume) 89 U/L 40-136 Serum or plasma aspartate aminotransfera se measurement (enzymatic activity/volume) 20 U/L 5-34 Serum or plasma alanine aminotransferase measurement (enzymatic activity/volume) 17 U/L 0-55 Serum or plasma protein measurement (mass/volume) 6.9 g/dL 6.4-8.2 Serum or plasma albumin measurement (mass/volume) 4.0 g/dL 3.2-4.5 Magnesium - 01/29/18 19:44 Magnesium 1.3 mg/dL 1.8-2.4 Serum or plasma creatine kinase measurem ent (enzymatic activity/volume) - 01/29/18 19:44 Serum or plasma creatine kinase measurem ent (enzymatic activity/volume) 126 U/L 29-168 Serum or plasma creatine kinase MB measu rement (enzymatic activity/volume) - 01/29/18 19:44 Serum or plasma creatine kinase MB measu rement (enzymatic activity/volume) 3.2 ng/mL <6.6 Serum or plasma troponin i.cardiac measu rement (mass/volume) - 01/29/18 19:44 Serum or plasma troponin i.cardiac measurement (mass/v olume) < ng/mL <0.30 Serum or plasma amylase measurement (enz ymatic activity/volume) - 01/29/18 19:44 Serum or plasma amylase measurement (enzymatic activit y/volume) 179 U/L 25-125 Serum or plasma lithium measurement (mol es/volume) - 01/29/18 19:44 BNP level 239.7 pg/mL <100.0 Lipase - 01/29/18 19:44 Lipase 31 U/L 8-78 Hemoglobin A1c - 01/29/18 20:34 Blood hemoglobin A1C measurement (mass/volume) 4.3 % 4.0-5.6 MEAN BLOOD GLUCOSE 77 % <=126 Serum or plasma troponin i.cardiac measu rement (mass/volume) - 01/29/18 22:45 Serum or plasma troponin i.cardiac measurement (mass/v olume) < ng/mL <0.30 Capillary blood glucose measurement by g lucometer (mass/volume) - 01/30/18 00:04 Capillary blood glucose measurement by glucometer (mas s/volume) 152 mg/dL 70-110 Complete urinalysis with reflex to cultu re - 01/30/18 06:10 Urine color determination YELLOW NRG Urine clarity determination CLEAR NR G Urine pH measurement by test strip 7 5-9 Specific gravity of urine by test strip 1.010 1.016-1.022 Urine protein assay by test strip, semi-quantitative NEGATIVE NEGATIVE Urine glucose detection by automated test strip NE GATIVE NEGATIVE Erythrocytes detection in urine sediment by light micr oscopy NEGATIVE NEGATIVE Urine ketones detection by automated test strip NE GATIVE NEGATIVE Urine nitrite detection by test strip NEGATIVE NEGATIVE Urine total bilirubin detection by test strip NEGA TIVE NEGATIVE Urine urobilinogen measurement by automated test strip (mass/volume) NORMAL NORMAL Urine leukocyte esterase detection by dipstick NEG ATIVE NEGATIVE Automated urine sediment erythrocyte cou nt by microscopy (number/high power field) RARE NRG Automated urine sediment leukocyte count by microscopy (number/high power field) NONE NRG Bacteria detection in urine sediment by light microsco py NEGATIVE NRG Squamous epithelial cells detection in u rine sediment by light microscopy RARE NRG Crystals detection in urine sediment by light microsco py NONE NRG Casts detection in urine sediment by light microscopy NONE NRG Mucus detection in urine sediment by light microscopy NEGATIVE NRG Complete urinalysis with reflex to culture NO NRG Capillary blood glucose measurement by g lucometer (mass/volume) - 01/30/18 06:15 Capillary blood glucose measurement by glucometer (mas s/volume) 117 mg/dL 70-110 Complete blood count (CBC) with automate d white blood cell (WBC) differential - 01/30/18 06:17 Blood leukocytes automated count (number/volume) 8.2 10*3/uL 4.3-11.0 Blood erythrocytes automated count (number/volume) 3.75 10*6/uL 4.35-5.85 Venous blood hemoglobin measurement (mass/volume) 12.0 g/dL 11.5-16.0 Blood hematocrit (volume fraction) 36 % 35-52 Automated erythrocyte mean corpuscular volume 95 [ foz_us] 80-99 Automated erythrocyte mean corpuscular h emoglobin (mass per erythrocyte) 32 pg 25-34 Automated erythrocyte mean corpuscular h emoglobin concentration measurement (mass/volume) 34 g/dL 32-36 Automated erythrocyte distribution width ratio 12. 5 % 10.0- 14.5 Automated blood platelet count (count/volume) 289 10*3/uL 130-400 Automated blood platelet mean volume measurement 10.4 [foz_us] 7.4-10.4 Automated blood neutrophils/100 leukocytes 82 % 42-75 Automated blood lymphocytes/100 leukocytes 14 % 12-44 Blood monocytes/100 leukocytes 4 % 0-12 Automated blood eosinophils/100 leukocytes 0 % 0-10 Automated blood basophils/100 leukocytes 0 % 0-10 Blood neutrophils automated count (number/volume) 6.7 10*3 1.8-7.8 Blood lymphocytes automated count (number/volume) 1.2 10*3 1.0-4.0 Blood monocytes automated count (number/volume) 0. 3 10*3 0.0-1.0 Automated eosinophil count 0.0 10*3/uL 0 .0-0.3 Automated blood basophil count (count/volume) 0.0 10*3/uL 0.0-0.1 Comprehensive metabolic panel - 01/30/18 06:17 Serum or plasma sodium measurement (moles/volume) 143 mmol/L 135-145 Serum or plasma potassium measurement (moles/volume) 3.5 mmol/L 3.6-5.0 Serum or plasma chloride measurement (moles/volume) 107 mmol/L 98-107 Carbon dioxide 29 mmol/L 21-32 Serum or plasma anion gap determination (moles/volume) 7 mmol/L 5-14 Serum or plasma urea nitrogen measurement (mass/volume ) 19 mg/dL 7-18 Serum or plasma creatinine measurement (mass/volume) 1.11 mg/dL 0.60-1.30 Serum or plasma urea nitrogen/creatinine mass ratio 17 NRG Serum or plasma creatinine measurement w ith calculation of estimated glomerular filtration rate 52 NRG Serum or plasma glucose measurement (mass/volume) 103 mg/dL 70-105 Serum or plasma calcium measurement (mass/volume) 8.8 mg/dL 8.5-10.1 Serum or plasma total bilirubin measurement (mass/volu me) 0.3 mg/dL 0.1-1.0 Serum or plasma alkaline phosphatase luz surement (enzymatic activity/volume) 69 U/L 40-136 Serum or plasma aspartate aminotransfera se measurement (enzymatic activity/volume) 13 U/L 5-34 Serum or plasma alanine aminotransferase measurement (enzymatic activity/volume) 16 U/L 0-55 Serum or plasma protein measurement (mass/volume) 5.3 g/dL 6.4-8.2 Serum or plasma albumin measurement (mass/volume) 3.2 g/dL 3.2-4.5 Serum or plasma creatine kinase measurem ent (enzymatic activity/volume) - 01/30/18 06:17 Serum or plasma creatine kinase measurem ent (enzymatic activity/volume) 68 U/L 29-168 Serum or plasma troponin i.cardiac measu rement (mass/volume) - 01/30/18 06:17 Serum or plasma troponin i.cardiac measurement (mass/v olume) < ng/mL <0.30 PT panel in platelet poor plasma by coag ulation assay - 01/30/18 06:17 Prothrombin time (PT) in platelet poor plasma by coagu lation assay 12.6 s 12.2-14.7 INR in platelet poor plasma or blood by coagulation as say 0.9 0.8-1.4 Activated partial thromboplastin time (a PTT) in platelet poor plasma bycoagulation assay - 01/30/18 06:17 Activated partial thromboplastin time (a PTT) in platelet poor plasma bycoagulation assay 42 s 24-35 Myoglobin, serum - 01/30/18 06:17 Myoglobin, serum 50.1 ng/mL 10.0-92.0 Lipid 1996 panel - 01/30/18 06:17 Serum or plasma triglyceride measurement (mass/volume) 74 mg/dL <150 Serum or plasma cholesterol measurement (mass/volume) 124 mg/dL < 200 Serum or plasma cholesterol in HDL measurement (mass/v olume) 51 mg/dL 40-60 Cholesterol in LDL [mass/volume] in serum or plasma by direct assay 60 mg/dL 1-129 Serum or plasma cholesterol in VLDL measurement (mass/ volume) 15 mg/dL 5-40 Capillary blood glucose measurement by g lucometer (mass/volume) - 01/30/18 12:15 Capillary blood glucose measurement by glucometer (mas s/volume) 59 mg/dL 70-110 Capillary blood glucose measurement by g lucometer (mass/volume) - 01/30/18 13:56 Capillary blood glucose measurement by glucometer (mas s/volume) 184 mg/dL 70-110 PROTEIN, TOTAL W/CREAT, RANDOM URINE - 0 04/17/18 11:03 CREATININE, RANDOM URINE 56 mg/dL 20-32 0 PROTEIN/CREATININE RATIO 179 mg/g creat 21-161 PROTEIN, TOTAL, RANDOM UR 10 mg/dL 5-24 CBC - 04/17/18 11:03 WHITE BLOOD CELL COUNT 7.5 Thousand/uL 3 .8-10.8 RED BLOOD CELL COUNT 4.59 Million/uL 3.8 0-5.10 HEMOGLOBIN 14.4 g/dL 11.7-15.5 HEMATOCRIT 43.9 % 35.0-45.0 MCV 95.6 fL 80.0-100.0 MCH 31.4 pg 27.0-33.0 MCHC 32.8 g/dL 32.0-36.0 RDW 11.5 % 11.0-15.0 PLATELET COUNT 302 Thousand/uL 140-400 MPV 10.4 fL 7.5-12.5 ABSOLUTE NEUTROPHILS 4943 cells/uL 1500- 7800 ABSOLUTE LYMPHOCYTES 1973 cells/uL 850-3 900 ABSOLUTE MONOCYTES 428 cells/uL 200-950 ABSOLUTE EOSINOPHILS 120 cells/uL 15-500 ABSOLUTE BASOPHILS 38 cells/uL 0-200 NEUTROPHILS 65.9 % NRG LYMPHOCYTES 26.3 % NRG MONOCYTES 5.7 % NRG EOSINOPHILS 1.6 % NRG BASOPHILS 0.5 % NRG VITAMIN B12 - 04/17/18 11:03 VITAMIN B12 816 pg/mL 200-1100 PDM - PAIN MGMT (PROFILE 3 WITH CONFIRMA TION) - 05/23/18 14:05 Prescribed Drug 1 Morphine NRG Creatinine 77.5 mg/dL > or = 20.0 pH 6.76 4.5 - 9.0 Oxidant NEGATIVE mcg/mL <200 Amphetamines NEGATIVE ng/mL <500 medMATCH Amphetamines CONSISTENT NRG Benzodiazepines TNP NRG Marijuana Metabolite NEGATIVE ng/mL <20 medMATCH Marijuana Metab CONSISTENT NRG Cocaine Metabolite NEGATIVE ng/mL <150 medMATCH Cocaine Metab CONSISTENT NRG COMMENT NRG Prescribed Drug 2 Oxycodone NRG Prescribed Drug 3 Clonazepam NRG PTH (INTACT) - 11/04/18 09:26 CALCIUM 10.0 mg/dL 8.6-10.4 PARATHYROID HORMONE, INTACT 51 pg/mL 14 -64 PHOSPHORUS - 11/04/18 09:26 PHOSPHATE ( PHOSPHORUS) 4.2 mg/dL 2.5- 4.5 PROTEIN, TOTAL W/CREAT, RANDOM URINE - 1 01/05/18 09:26 CREATININE, RANDOM URINE 131 mg/dL 20-27 5 PROTEIN/CREATININE RATIO 168 mg/g creat 21-161 PROTEIN, TOTAL, RANDOM UR 22 mg/dL 5-24 CBC - 11/04/18 09:26 WHITE BLOOD CELL COUNT 7.7 Thousand/uL 3 .8-10.8 RED BLOOD CELL COUNT 4.06 Million/uL 3.8 0-5.10 HEMOGLOBIN 12.8 g/dL 11.7-15.5 HEMATOCRIT 38.9 % 35.0-45.0 MCV 95.8 fL 80.0-100.0 MCH 31.5 pg 27.0-33.0 MCHC 32.9 g/dL 32.0-36.0 RDW 11.9 % 11.0-15.0 PLATELET COUNT 401 Thousand/uL 140-400 MPV 10.7 fL 7.5-12.5 ABSOLUTE NEUTROPHILS 5121 cells/uL 1500- 7800 ABSOLUTE LYMPHOCYTES 1817 cells/uL 850-3 900 ABSOLUTE MONOCYTES 554 cells/uL 200-950 ABSOLUTE EOSINOPHILS 146 cells/uL 15-500 ABSOLUTE BASOPHILS 62 cells/uL 0-200 NEUTROPHILS 66.5 % NRG LYMPHOCYTES 23.6 % NRG MONOCYTES 7.2 % NRG EOSINOPHILS 1.9 % NRG BASOPHILS 0.8 % NRG CMP - 08/06/19 09:03 GLUCOSE 100 mg/dL 65-99 UREA NITROGEN (BUN) 26 mg/dL 7-25 CREATININE 1.34 mg/dL 0.50-1.05 eGFR NON-AFR. UKRAINIAN 45 mL/min/1.73m2 > OR = 60 eGFR 52 mL/min/1.73m2 > OR = 60 BUN/CREATININE RATIO 19 (calc) 6-22 SODIUM 140 mmol/L 135-146 POTASSIUM 3.6 mmol/L 3.5-5.3 CHLORIDE 105 mmol/L 98-110 CARBON DIOXIDE 29 mmol/L 20-32 CALCIUM 9.4 mg/dL 8.6-10.4 PROTEIN, TOTAL 6.1 g/dL 6.1-8.1 ALBUMIN 3.6 g/dL 3.6-5.1 GLOBULIN 2.5 g/dL (calc) 1.9-3.7 ALBUMIN/GLOBULIN RATIO 1.4 (calc) 1.0-2. 5 BILIRUBIN, TOTAL 0.4 mg/dL 0.2-1.2 ALKALINE PHOSPHATASE 81 U/L 33-130 AST 15 U/L 10-35 ALT 13 U/L 6-29 CBC - 08/06/19 09:03 WHITE BLOOD CELL COUNT 7.1 Thousand/uL 3 .8-10.8 RED BLOOD CELL COUNT 4.27 Million/uL 3.8 0-5.10 HEMOGLOBIN 13.2 g/dL 11.7-15.5 HEMATOCRIT 40.0 % 35.0-45.0 MCV 93.7 fL 80.0-100.0 MCH 30.9 pg 27.0-33.0 MCHC 33.0 g/dL 32.0-36.0 RDW 12.2 % 11.0-15.0 PLATELET COUNT 287 Thousand/uL 140-400 MPV 10.3 fL 7.5-12.5 ABSOLUTE NEUTROPHILS 4303 cells/uL 1500- 7800 ABSOLUTE LYMPHOCYTES 2031 cells/uL 850-3 900 ABSOLUTE MONOCYTES 511 cells/uL 200-950 ABSOLUTE EOSINOPHILS 199 cells/uL 15-500 ABSOLUTE BASOPHILS 57 cells/uL 0-200 NEUTROPHILS 60.6 % NRG LYMPHOCYTES 28.6 % NRG MONOCYTES 7.2 % NRG EOSINOPHILS 2.8 % NRG BASOPHILS 0.8 % NRG VITAMIN B12 - 08/06/19 09:03 VITAMIN B12 759 pg/mL 200-1100 BMP - 10/31/19 09:37 GLUCOSE 119 mg/dL 65-99 UREA NITROGEN (BUN) 20 mg/dL 7-25 CREATININE 1.36 mg/dL 0.50-1.05 eGFR NON-AFR. UKRAINIAN 44 mL/min/1.73m2 > OR = 60 eGFR 51 mL/min/1.73m2 > OR = 60 BUN/CREATININE RATIO 15 (calc) 6-22 SODIUM 144 mmol/L 135-146 POTASSIUM 4.1 mmol/L 3.5-5.3 CHLORIDE 107 mmol/L 98-110 CARBON DIOXIDE 30 mmol/L 20-32 CALCIUM 9.5 mg/dL 8.6-10.4 PROTEIN E-PHORESIS, SERUM - 03/03/20 09: 51 PROTEIN, TOTAL 7.1 g/dL 6.1-8.1 ALBUMIN 4.3 g/dL 3.8-4.8 ALPHA 1 GLOBULIN 0.3 g/dL 0.2-0.3 ALPHA 2 GLOBULIN 0.8 g/dL 0.5-0.9 BETA 1 GLOBULIN 0.5 g/dL 0.4-0.6 BETA 2 GLOBULIN 0.3 g/dL 0.2-0.5 GAMMA GLOBULIN 0.9 g/dL 0.8-1.7 INTERPRETATION NRG RENAL PROFILE - 03/03/20 09:51 GLUCOSE 101 mg/dL 65-99 UREA NITROGEN (BUN) 30 mg/dL 7-25 CREATININE 1.51 mg/dL 0.50-1.05 eGFR NON-AFR. UKRAINIAN 39 mL/min/1.73m2 > OR = 60 eGFR 45 mL/min/1.73m2 > OR = 60 BUN/CREATININE RATIO 20 (calc) 6-22 SODIUM 141 mmol/L 135-146 POTASSIUM 4.2 mmol/L 3.5-5.3 CHLORIDE 101 mmol/L 98-110 CARBON DIOXIDE 26 mmol/L 20-32 CALCIUM 9.8 mg/dL 8.6-10.4 ALBUMIN 4.4 g/dL 3.6-5.1 PHOSPHATE ( PHOSPHORUS) 4.8 mg/dL 2.5- 4.5 CBC - 03/03/20 09:51 WHITE BLOOD CELL COUNT 6.5 Thousand/uL 3 .8-10.8 RED BLOOD CELL COUNT 4.62 Million/uL 3.8 0-5.10 HEMOGLOBIN 14.5 g/dL 11.7-15.5 HEMATOCRIT 43.9 % 35.0-45.0 MCV 95.0 fL 80.0-100.0 MCH 31.4 pg 27.0-33.0 MCHC 33.0 g/dL 32.0-36.0 RDW 12.7 % 11.0-15.0 PLATELET COUNT 355 Thousand/uL 140-400 MPV 10.8 fL 7.5-12.5 ABSOLUTE NEUTROPHILS 4206 cells/uL 1500- 7800 ABSOLUTE LYMPHOCYTES 1658 cells/uL 850-3 900 ABSOLUTE MONOCYTES 527 cells/uL 200-950 ABSOLUTE EOSINOPHILS 59 cells/uL 15-500 ABSOLUTE BASOPHILS 52 cells/uL 0-200 NEUTROPHILS 64.7 % NRG LYMPHOCYTES 25.5 % NRG MONOCYTES 8.1 % NRG EOSINOPHILS 0.9 % NRG BASOPHILS 0.8 % NRG VITAMIN D, 25-H - 03/03/20 09:51 VITAMIN D,25-OH,TOTAL,IA 54 ng/mL 30-10 0 PTH (INTACT) - 03/03/20 09:52 CALCIUM 9.9 mg/dL 8.6-10.4 PARATHYROID HORMONE, INTACT 32 pg/mL 14 -64 Encounters ACCT No. Visit Date/Time Discharge Status Pt. Type Provider Facility Loc./Unit Complaint [id number] 12/30/2016 12:06:00 Document Registration [id number] 11/04/2013 23:41:39 ACT Document Registration [id number] 03/12/2015 14:20:00 03/12/2015 23:59: 59 CLS Outpatient ASHVIN ROBERTS MD [id number] 12/11/2014 14:17:00 12/11/2014 23:59: 59 CLS Outpatient ASHVIN ROBERTS MD [id number] 10/20/2014 10:56:00 10/20/2014 23:59: 59 CLS Outpatient LISETH DOWELL APRN [id number] 09/15/2014 09:20:00 09/15/2014 23:59: 59 CLS Outpatient ASHVIN ROBERTS MD [id number] 09/08/2014 10:33:00 09/08/2014 23:59: 59 CLS Outpatient ASHVIN ROBERTS MD [id number] 2014 10:12:00 2014 23:59: 59 CLS Outpatient CANDE MAYA DO [id number] 07/02/2014 10:33:00 07/02/2014 23:59: 59 CLS Outpatient ASHVIN ROBERTS MD [id number] 06/19/2014 16:34:00 06/19/2014 23:59: 59 CLS Outpatient LISETH DOWELL APRN [id number] 06/19/2014 16:34:00 06/19/2014 23:59: 59 CLS Outpatient LISETH DOWELL APRN [id number] 06/05/2014 10:53:00 06/05/2014 23:59: 59 CLS Outpatient ASHVIN ROBERTS MD [id number] 04/02/2014 15:49:00 04/02/2014 23:59: 59 CLS Outpatient DORINA MOSES MD [id number] 04/02/2014 15:49:00 04/02/2014 23:59: 59 CLS Outpatient LISETH DOWELL APRN [id number] 03/06/2014 13:07:00 03/06/2014 23:59: 59 CLS Outpatient ASHVIN ROBERTS MD [id number] 03/03/2014 15:37:00 03/03/2014 23:59: 59 CLS Outpatient ASHVIN ROBERTS MD [id number] 02/26/2014 14:35:00 02/26/2014 23:59: 59 CLS Outpatient CHIKIS POLANCO, SAUL Michel [id number] 02/03/2014 13:51:00 02/03/2014 23:59: 59 CLS Outpatient ASHVIN ROBERTS MD [id number] 01/06/2014 14:15:00 01/06/2014 23:59: 59 CLS Outpatient ASHVIN ROBERTS MD [id number] 12/05/2013 08:56:00 12/05/2013 23:59: 59 CLS Outpatient CANDE MAYA DO [id number] 11/28/2013 10:28:00 11/28/2013 23:59: 59 CLS Outpatient ASHVIN ROBERTS MD [id number] 11/28/2013 10:28:00 11/28/2013 23:59: 59 CLS Outpatient ASHVIN ROBERTS MD [id number] 11/04/2013 09:19:00 11/04/2013 23:59: 59 CLS Outpatient ASHVIN ROBERTS MD [id number] 09/23/2013 14:16:00 09/23/2013 23:59: 59 CLS Outpatient CANDE MAYA DO [id number] 12/17/2018 08:35:00 019 23:59:59 CLS Outpatient ASHVIN ROBERTS MD [facility] RAD CERVICALGIA [id number] 12/16/2018 07:36:00 019 23:59:59 CLS Outpatient ASHVIN ROBERTS MD [facility] RAD BILATERAL LOW BACK PAIN [id number] 12/12/2018 08:56:00 019 23:59:59 CLS Outpatient ASHVIN ROBERTS MD [facility] RAD HX OF OSTEOPOROSIS [id number] 12/09/2018 14:08:00 019 23:59:59 CLS Preadmit ASHVIN ROBERTS MD [facility] RAD DEGENERATIVE DISC DISEA SE [id number] 08/13/2018 08:27:00 23:59:59 CLS Outpatient ASHVIN ROBERTS MD [facility] RAD SCREENING [id number] 01/29/2018 21:26:00 16:14:00 DIS Inpatient LIVE DENT MD [facility] 4TH CHEST PAIN; HTN; HYPERG LYCEMIA [id number] 09/14/2016 14:29:00 016 23:59:59 CLS Outpatient ASHVIN ROBERTS MD [facility] RAD SCREENING [id number] 03/31/2016 13:34:00 23:59:59 CLS Preadmit PIERRE FISCHER [employer] DEVEL[employer] [facility] REHAB [id number] 02/03/2016 09:33:00 23:59:59 CLS Outpatient ASHVIN ROBERTS MD [facility] RAD RIGHT SHOULDER PAIN [id number] 10/01/2014 10:25:00 014 23:59:59 CLS Outpatient NEEMA GODOY [employer]AT[employer] DEVELOPER [facility] RAD ROUTINE [id number] 06/08/2014 11:59:00 014 23:59:59 CLS Outpatient IONA MARTIN MD [facility] SDC RECTAL BLEEDING [id number] 06/03/2014 07:27:00 014 23:59:59 CLS Outpatient IONA MARTIN MD [facility] PREOP RECTAL BLEEDING [id number] 11/05/2013 01:00:00 013 17:45:00 DIS Outpatient LASHAWN WHITTINGTON MD [facility] CATH CHEST PAIN [id number] 01/17/2017 08:45:00 Document Registration [id number] 01/24/2017 09:11:00 Document Registration [id number] 03/29/2017 08:07:00 Document Registration [id number] 04/26/2020 11:20:00 04/26/2020 23:59:5 9 CLS Outpatient ASHVIN ROBERTS MD [facility] [id number] 03/03/2020 09:45:00 Document Registration [id number] 10/31/2019 10:20:00 Document Registration [id number] 08/06/2019 08:55:00 Document Registration [id number] 11/04/2018 10:40:00 Document Registration [id number] 05/23/2018 13:20:00 Document Registration [id number] 04/17/2018 10:40:00 Document Registration [id number] 10/17/2017 12:00:00 Document Registration [id number] 02/23/2017 08:38:00 Document Registration
[2020-06-19] MEDS ORDERED: OXYMETAZOLINE (AFRIN) 0.05% NA 30 ML BTL ONE (03:30)
--- NOTE | 2020-06-19 04:44 | ED EENT ---
History of Present Illness General Chief Complaint: Nasal Problems Stated Complaint: NOSEBLEED Source: patient Exam Limitations: no limitations History of Present Illness Date Seen by Provider: Jun 19, 2020 Time Seen by Provider: 02:00 Initial Comments Patient presents to the emergency room with epistaxis from both nostrils. She woke at approximately 01:00 with the nosebleed. She is noted to be hypertensive and admits to forgetting to take her blood pressure medications last night. She does not typically have trouble with nosebleeds. She denies any blood thinners but does take aspirin 81 mg daily. Allergies and Home Medications Allergies Coded Allergies: metronidazole (Unverified Allergy, Mild, HIVES, 11/01/06) duloxetine (Verified Allergy, Unknown, 01/29/18) ibuprofen (Verified Allergy, Unknown, 01/29/18) pregabalin (Verified Allergy, Unknown, 01/29/18) Home Medications Acetaminophen 500 Mg Tablet, 1,000 MG PO Q6H PRN for PAIN-MILD, (Reported) Albuterol Sulfate 1 Puff Puff, 2 PUFF IH Q4H PRN for SHORTNESS OF BREATH, (Reported) 1 PUFF = 90 MCG Amitriptyline HCl 50 Mg Tablet, 50 MG PO HS, (Reported) Aspirin 81 Mg Tablet.dr, 81 MG PO DAILY, (Reported) Atenolol 25 Mg Tablet, 25 MG PO DAILY, (Reported) NEW MED - HAS NOT STARTED YET, FILLED 01-29-18 Clonazepam 1 Mg Tablet, 1 MG PO HS, (Reported) Clonazepam 0.5 Mg Tablet, 0.5 MG PO DAILY PRN for ANXIETY, (Reported) Cyanocobalamin 1,000 Mcg/Ml Inj, 1,000 MCG IJ EVERY OTHER MONTH, (Reported) Diphenhydramine HCl 25 Mg Capsule, PO UD, (Reported) STATES SHE TAKES 5-6 (25MG) TABLETS AT BEDTIME Fluoxetine HCl 20 Mg Capsule, 20 MG PO HS, (Reported) DOES RECENTLY INCREASED FROM 10MG, HAS NOT STARTED NEW DOSE YET Lisinopril/Hydrochlorothiazide 1 Each Tablet, 1 TAB PO DAILY, (Reported) Montelukast Sodium 10 Mg Tablet, 10 MG PO DAILY, (Reported) Morphine Sulfate 15 Mg Tablet.er, 15 MG PO BID, (Reported) Multivitamin 1 Each Tablet, 1 TAB PO BID, (Reported) Omeprazole 20 Mg Capsule.dr, 20 MG PO HS, (Reported) Oxycodone HCl 10 Mg Tablet, 10 MG PO TID PRN for PAIN-SEVERE, (Reported) Patient Home Medication List Home Medication List Reviewed: Yes Review of Systems Review of Systems Constitutional: no symptoms reported Eyes: No Symptoms Reported Ears: No Symptoms Reported Nose: see HPI Mouth: no symptoms reported Throat: no symptoms reported Respiratory: no symptoms reported Cardiovascular: see HPI Gastrointestinal: no symptoms reported Musculoskeletal: no symptoms reported Skin: no symptoms reported Neurological: No Symptoms Reported Hematologic/Lymphatic: No Symptoms Reported Past Bvewdwk-Yedvrn-Dbgowi Hx Past Med/Social Hx: Reviewed Nursing Past Med/Soc Hx Patient Social History Drug of Choice: THC Type Used: Cigarettes Recent Foreign Travel: No Contact w/Someone Who Travel: No Immunizations Up To Date Tetanus Booster (TDap): More than 5yrs Past Medical History Surgeries: Yes Abdominal, Adenoidectomy, Cardiac, Gallbladder, 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, Oophorectomy, Orthopedic, Tonsillectomy Respiratory: Yes Asthma, COPD Currently Using CPAP: No Currently Using BIPAP: No Cardiac: Yes 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, Hypertension Neurological: No 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, 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 Genitourinary: Yes (CHRONIC RENAL INSUFFICIENCY) Gastrointestinal: Yes Gastroesophageal Reflux, Chronic Constipation Musculoskeletal: Yes Chronic Back Pain, Fractures Endocrine: No HEENT: No Cancer: No Psychosocial: Yes Anxiety, Depression Integumentary: No Blood Disorders: No Family Medical History Cancer 03 FATHER Cataract 03 FATHER 03 MOTHER Chest pain 03 FATHER Congestive heart failure 03 FATHER Family history: Arthritis 03 FATHER 03 MOTHER 09 BROTHER Family history: Cardiovascular disease 03 FATHER Family history: Diabetes mellitus 03 FATHER 09 BROTHER Family history: Hypertension 03 FATHER 03 MOTHER 09 BROTHER Family history: Osteoporosis 03 MOTHER 09 BROTHER Headache 03 FATHER 03 MOTHER 09 BROTHER Hearing loss 03 FATHER Heart disease 03 FATHER History of - anemia 09 BROTHER History of - respiratory disease 03 FATHER History of drug abuse 09 BROTHER Hypercholesterolemia 03 FATHER Visual impairment 03 FATHER 03 MOTHER 09 BROTHER No Family History of: Abdominal aortic aneurysm [place]'s disease Alcoholism Aphasia Cancer of colon Congenital heart disease Cystic fibrosis Dementia Dysphagia Family history: Allergy Family history: Alzheimer's disease Family history: Asthma Family history: Breast disease Family history: Coronary thrombosis Family history: Gastrointestinal disease Family history: Glaucoma Family history: Thyroid disorder Hereditary disease History of - disorder Human immunodeficiency virus (HIV) seropositivity Infertile Kidney disease Malignant neoplasm of lung Myocardial infarction Parkinson's disease Prostate cancer Psychotic disorder Seizure disorder Stroke Tuberculosis Physical Exam Vital Signs Vital Signs - First Documented 06/19/20 06/19/20 02:00 04:45 Temp 37.0 Pulse 61 Resp 20 B/P (MAP) 164/105 (124) Pulse Ox 99 O2 Delivery Room Air Height, Weight, BMI Height: 5'9.00" Weight: 184lbs. 0.0oz. 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 (06/19/20 09:00) Oxymetazoline 0.05% Nasal [place] (Afrin 0. (06/19/20 03:30) Progress Progress Note : Progress Note Bleeding had stopped by the time of arrival but she experienced rebound bleeding. Afrin 4 squirts in each nostril was used followed by direct pressure. This stopped her bleeding. Blood pressure was labile depending on her emotional state and whether or not she was bleeding at the time. She was advised to take her blood pressure medication promptly upon returning home. Departure Impression Primary Impression: Epistaxis Additional Impression: Hypertension Qualified Codes: I10 - Essential (primary) hypertension Disposition: 01 HOME, SELF-CARE Condition: Improved Departure-Patient Inst. Decision time for Depature: 04:41 Referrals: ASHVIN ROBERTS MD (PCP/Family) Primary Care Physician Patient Instructions: High Blood Pressure (DC), Nosebleeds (DC) Add. Discharge Instructions: Avoid disrupting the clot in your nose as long as possible. This includes blowing or rubbing your nose. Skip your next dose of aspirin. Take your lisinopril when you return home to help control your blood pressure. Take your blood pressure medications every day as prescribed. If bleeding returns, administered 2-4 squirts of Afrin in each nostril and apply direct pressure to the nose in a pinching fashion for about 15 minutes. If this does not stop the bleeding then return to the emergency room. Follow-up with your primary care provider soon as possible regarding your high blood pressure. All discharge instructions reviewed with patient and/or family. Voiced understanding. Copy Copies To 1: ASHVIN ROBERTS MD, JOSHUA T MD Jun 19, 2020 04:43
[2020-06-19 04:45] VITALS: BP 164/105
[2020-06-19] MEDS ORDERED: OXYMETAZOLINE (AFRIN) 0.05% NA 30 ML BTL SCH (09:00)
== END 2020-06-19 04:47 | disposition home or self-care (01) ==
LOC: EDUNIT# 01:56 → ER 01:58
DX: I10 Essential (primary) hypertension (principal); J44.9 Chronic obstructive pulmonary disease, unspecified; I12.9 Hypertensive chronic kidney disease with stage 1 through stage 4 chronic kidney disease, or unspecified chronic kidney disease; N18.9 Chronic kidney disease, unspecified; G89.29 Other chronic pain; M54.9 Dorsalgia, unspecified; K21.9 Gastro-esophageal reflux disease without esophagitis; F41.9 Anxiety disorder, unspecified; F32.9 Major depressive disorder, single episode, unspecified; Z82.49 Family history of ischemic heart disease and other diseases of the circulatory system; Z79.82 Long term (current) use of aspirin; Z88.6 Allergy status to analgesic agent; Z88.8 Allergy status to other drugs, medicaments and biological substances

== ENCOUNTER 2022-07-07 21:13 | Inpatient (IN) | payer MEDICARE, MEDICAID ==
[~2022-07-07] VITALS: Ht 175 cm; Wt 105.4 kg
[~2022-07-07 21:13] MED LIST changes: +ASPI-1238 PO; -ASPI-983 PO; -LISI1TAB25 PO; -LISI1TAB26 PO; +LISI1TAB46 PO; +LISI1TAB48 PO
[2022-07-07 21:53] LABS: BASOPHILS # (AUTO) 0.1 10^3/uL (0.0-0.1); BASOPHILS % (AUTO) 0 % (0-10); EOSINOPHILS # (AUTO) 0.1 10^3/uL (0.0-0.3); EOSINOPHILS % (AUTO) 1 % (0-10); HEMATOCRIT 47 % (35-52); HEMOGLOBIN 15.7 g/dL (11.5-16.0); LYMPHOCYTES # (AUTO) 1.7 10^3/uL (1.0-4.0); LYMPHOCYTES % (AUTO) 14 % (12-44); MEAN CORPUSCULAR HEMOGLOBIN 32 pg (25-34); MEAN CORPUSCULAR HGB CONC 34 g/dL (32-36); MEAN CORPUSCULAR VOLUME 94 fL (80-99); MONOCYTES # (AUTO) 0.5 10^3/uL (0.0-1.0); MONOCYTES % (AUTO) 4 % (0-12); NEUTROPHILS # (AUTO) 10.1 10^3/uL (1.8-7.8); NEUTROPHILS % (AUTO) 81 % (42-75); PLATELET COUNT 298 10^3/uL (130-400); WHITE BLOOD COUNT 12.5 10^3/uL (4.3-11.0)
[2022-07-07 21:59] LABS: CLARITY,URINE CLEAR; COLOR,URINE YELLOW
--- NOTE | 2022-07-07 21:59 | ED General ---
General Chief Complaint: Abdominal/GI Problems Stated Complaint: ABD PAIN RADIATING TO L SHOULDER Source of Information: Patient History of Present Illness Date Seen by Provider: Jul 07, 2022 Time Seen by Provider: 21:40 Initial Comments PT ARRIVES VIA POV FROM HOME STATES AROUND 1800 TONIGHT, SHE WAS STANDING IN THE KITCHEN EATING TOMATOES ON TOAST--TOOK ONLY ONE BITE OF TOMATO, AND HAD SUDDEN SHARP SEVERE STABBING PAIN IN EPIGASTRIC AREA AND PAIN IS ALL OVER HER ENTIRE UPPER ABDOMEN AND ALL OVER HER ENTIRE CHEST AND INTO HER LEFT SHOULDER STATES IT IS NOT STABBING ANYMORE, BUT IS A CONSTANT PAIN THAT IS GETTING WORSE LEFT ARM FELT A LITTLE TINGLY, BUT NOT NOW STATES IT HURTS TO BREATHE, BUT DOES NOT FEEL SHORT OF BREATH PAIN IS MUCH WORSE WITH WALKING OR ANY MOVEMENTS OF ANY KIND + NAUSEA, NO VOMITING + SWEATS "A LITTLE BIT" AND FELT SHAKEY NO DIZZINESS OR SYNCOPE STATES HER HEART WAS BEATING A LITTLE FAST, BUT WAS FEELING VERY ANXIOUS AT THE TIME-NOT OCCURRING NOW. NO SWELLING IN LEGS/ FEET OR PAIN IN CALVES HAS HAD CHEST PAINS BEFORE BUT PT STATES SHE WAS TOLD IT WAS FROM ANXIETY. DENIES ANY CARDIAC PROCEDURES OR ANY CARDIAC DIAGNOSES STATES SHE HAS NOT TAKEN ANY OF HER MEDICATIONS FOR 3 DAYS--GIVES NO REASON WHY SHE HAS NOT TAKEN THEM--"JUST HAVEN'T" PT DRINKS UP TO 1/2 PINT OF VODKA "ALMOST EVERY DAY" --"JUST A FEW LITTLE SHOTS THROUGHOUT THE DAY SO I CAN GET MY WORK DONE" STATES SHE "ONLY HAD A COUPLE OF LITTLE SHOTS" OF VODKA TODAY PT HAS HAD MARLENE-EN-Y GASTRIC BYPASS IN 2000 IN [place], WELL CHOLECYSTECTOMY SHE HAS ALSO HAD HYSTERECTOMY/BILATERAL SALPINGO-OOPHORECTOMY AND BACK SURGERY, WELL OTHER ORTHOPEDIC SURGERIES PT LATER STATES THAT SHE TAKES AT LEAST 800 MG OF OVER THE COUNTER IBUPROFEN AT LEAST 4-6 TIMES A DAY EVERY DAY FOR HER CHRONIC GENERALIZED PAIN STATES SHE HAS "LOW KIDNEY FUNCTION" , WELL HTN, FIBROMYALGIA, ARTHRITIS, CHRONIC NECK AND BACK PAIN, AND DEPRESSION/ANXIETY--DOES NOT TAKE PSYCH MEDICATIONS. PCP: DR. ROBERTS AT [facility] Allergies and Home Medications Allergies Coded Allergies: metronidazole (Unverified Allergy, Mild, HIVES, 11/01/06) duloxetine (Verified Allergy, Unknown, 01/29/18) ibuprofen (Verified Allergy, Unknown, 01/29/18) pregabalin (Verified Allergy, Unknown, 01/29/18) Patient Home Medication List Home Medication List Reviewed: Yes Albuterol Sulfate (Proair Hfa) 1 Puff Puff, 2 PUFF IH Q4H PRN for SHORTNESS OF BREATH, (Reported) Entered as Reported by: JORGE LUIS NATION on 01/30/18825 Last Action: Reviewed Amlodipine Besylate (Amlodipine Besylate) 10 Mg Tablet, 10 MG PO DAILY, (Reported) Entered as Reported by: THANIA TIMMONS on 07/08/22434 Last Action: Reviewed Aspirin (Aspirin EC) 81 Mg Tablet.dr, 81 MG PO DAILY, (Reported) Entered as Reported by: JORGE LUIS NATION on 01/30/18825 Last Action: Reviewed Cyanocobalamin (Cyanocobalamin Injection) 1,000 Mcg/Ml Inj, 1,000 MCG IJ EVERY OTHER MONTH, (Reported) Entered as Reported by: JORGE LUIS NATION on 01/30/18825 Last Action: Reviewed Fluoxetine HCl (Prozac) 20 Mg Capsule, 20 MG PO HS, (Reported) Entered as Reported by: JORGE LUIS NATION on 01/30/18825 Last Action: Reviewed Fluticasone Propionate (Fluticasone Propionate) 50 Mcg/Actuation [place].susp, 50 MCG NA BID PRN for DRY NOSE, (Reported) Entered as Reported by: THANIA TIMMONS on 07/08/22434 Last Action: Reviewed Hydrochlorothiazide (Hydrochlorothiazide) 25 Mg Tablet, 25 MG PO DAILY, (Reported) Entered as Reported by: THANIA TIMMONS on 07/08/22434 Last Action: Reviewed Lisinopril (Lisinopril) 40 Mg Tablet, 40 MG PO DAILY, (Reported) Entered as Reported by: THANIA TIMMONS on 07/08/22434 Last Action: Reviewed Multivitamin (Daily Multiple Vitamin) 1 Each Tablet, 1 TAB PO BID, (Reported) Entered as Reported by: JORGE LUIS NATION on 01/30/18825 Last Action: Reviewed Omeprazole (Omeprazole) 20 Mg Capsule.dr, 20 MG PO HS, (Reported) Entered as Reported by: JORGE LUIS NATION on 01/30/18825 Last Action: Reviewed Spironolactone (Spironolactone) 25 Mg Tablet, 25 MG PO DAILY, (Reported) Entered as Reported by: THANIA TIMMONS on 07/08/22 0435 Last Action: Reviewed Discontinued Medications Acetaminophen (Tylenol Extra Strength) 500 Mg Tablet, 1,000 MG PO Q6H PRN for PAIN-MILD, (Reported) Discontinued Reason: No Longer Taking Entered as Reported by: JORGE LUIS NATION on 01/30/18828 Last Action: Discontinued Atenolol (Atenolol) 25 Mg Tablet, 25 MG PO DAILY, (Reported) Discontinued Reason: No Longer Taking Entered as Reported by: JORGE LUIS NATION on 01/30/18 09 Last Action: Discontinued Oxycodone HCl (Oxycodone HCl) 10 Mg Tablet, 10 MG PO TID PRN for PAIN-SEVERE, (Reported) Discontinued Reason: No Longer Taking Entered as Reported by: JORGE LUIS NATION on 01/30/18825 Last Action: Discontinued Review of Systems Review of Systems Constitutional: no symptoms reported EENTM: no symptoms reported Respiratory: see HPI Cardiovascular: see HPI Gastrointestinal: see HPI Genitourinary: no symptoms reported Musculoskeletal: see HPI Skin: no symptoms reported Psychiatric/Neurological: No Symptoms Reported Hematologic/Lymphatic: No Symptoms Reported Immunological/Allergic: no symptoms reported Past Cjxhyjf-Jfycei-Rewbgr Hx Patient Social History Tobacco Use?: Yes Tobacco type used: Cigarettes Smoking Status: Current Everyday Smoker Use of E-Cig and/or Vaping dev: No Substance use?: Yes Alcohol Use?: Yes Alcohol type: Hard Liquor Alcohol Frequency: Daily Immunizations Up To Date Tetanus Booster (TDap): More than 5yrs Influenza Vaccine Up-to-Date: No; Not Current Past Medical History Surgeries: Yes Abdominal, Adenoidectomy, Cardiac, Gallbladder, 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, Oophorectomy, Orthopedic, Tonsillectomy Respiratory: Yes Asthma, COPD Currently Using CPAP: No Currently Using BIPAP: No Cardiac: Yes 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, Hypertension 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, 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 Genitourinary: Yes (CHRONIC RENAL INSUFFICIENCY--NO DIALYSIS OR SENSITOMETRIST) Gastrointestinal: Yes (S/P GASTRIC BYPASS AND CHOLECYSTECTOMY) Gastroesophageal Reflux, Chronic Constipation Musculoskeletal: Yes (CHRONIC GENERALIZED PAIN ) Degenerate Disk Disease, Arthritis, Fibromyalgia, Chronic Back Pain, Fractures Endocrine: Yes (OBESITY) HEENT: No Tonsilitis Cancer: No Psychosocial: Yes (ALCOHOL ABUSE, THC USE) Anxiety, Depression Integumentary: No Blood Disorders: No Family Medical History Cancer 03 FATHER Cataract 03 FATHER 03 MOTHER Chest pain 03 FATHER Congestive heart failure 03 FATHER Family history: Arthritis 03 FATHER 03 MOTHER 09 BROTHER Family history: Cardiovascular disease 03 FATHER Family history: Diabetes mellitus 03 FATHER 09 BROTHER Family history: Hypertension 03 FATHER 03 MOTHER 09 BROTHER Family history: Osteoporosis 03 MOTHER 09 BROTHER Headache 03 FATHER 03 MOTHER 09 BROTHER Hearing loss 03 FATHER Heart disease 03 FATHER History of - anemia 09 BROTHER History of - respiratory disease 03 FATHER History of drug abuse 09 BROTHER Hypercholesterolemia 03 FATHER Visual impairment 03 FATHER 03 MOTHER 09 BROTHER No Family History of: Abdominal aortic aneurysm Vernon's disease Alcoholism Aphasia Cancer of colon Congenital heart disease Cystic fibrosis Dementia Dysphagia Family history: Allergy Family history: Alzheimer's disease Family history: Asthma Family history: Breast disease Family history: Coronary thrombosis Family history: Gastrointestinal disease Family history: Glaucoma Family history: Thyroid disorder Hereditary disease History of - disorder Human immunodeficiency virus (HIV) seropositivity Infertile Kidney disease Malignant neoplasm of lung Myocardial infarction Parkinson's disease Prostate cancer Psychotic disorder Seizure disorder Stroke Tuberculosis SOCIAL HISTORY: -SMOKES 1-2 PPD -ETOH--DRINKS UP TO 1/2 PINT OF VODKA EVERY DAY -DRUGS--THC "SOMETIMES" PAST SURGICAL HISTORY: -MARLENE-EN-Y GASTRIC BYPASS 2000 IN [place] -CHOLECYSTECTOMY WITH GASTRIC BYPASS -HYSTERECTOMY/ BILATERAL SALPINGO-OOPHORECTOMY -BACK SURGERY -LEFT LOWER LEG FX/ORIF -BILATERAL CARPAL TUNNEL -TONSILLECTOMY Physical Exam Vital Signs Vital Signs - First Documented 07/07/22 21:30 Temp 37.0 Pulse 70 Resp 20 B/P (MAP) 130/97 (108) Pulse Ox 98 O2 Delivery Room Air Capillary Refill : Less Than 3 Seconds Height, Weight, BMI Height: 5'9.00" Weight: 184lbs. 0.0oz. [id number]; 30.00 BMI Method:Stated General Appearance: No Apparent Distress, WD/WN, Obese, Other (DIRTY, UKEMPT. ) HEENT: PERRL/EOMI Neck: Normal Inspection Respiratory: Chest Non Tender, Normal Breath Sounds, No Accessory Muscle Use, No Respiratory Distress Cardiovascular: Regular Rate, Rhythm, No Edema, No JVD, No Murmur, Normal Peripheral Pulses Gastrointestinal: Abnormal Bowel Sounds (DECREASED), Rebound, Tenderness (DIFFUSE UPPER ABDOMINAL TENDERNESS, MOST TENDER IN EPIGASTRIC AREA. 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 Norm as Tested Skin: Normal Color, Warm/Dry Progress/Results/Core Measures Suspected Sepsis SIRS Temperature: Pulse: Respiratory Rate: Laboratory Tests 07/07/22 21:47: White Blood Count 12.5H Blood Pressure / Mean: Laboratory Tests 07/07/22 21:47: Creatinine 2.14H, INR Comment 0.8, Platelet Count 298, Total Bilirubin 0.2 Results/Orders Lab Results Laboratory Tests Test 07/07/22 21:30 07/07/22 21:35 07/07/22 21:47 07/07/22 21:57 Range/Units Urine Opiates Screen NEGATIVE NEGATIVE Urine Oxycodone Screen NEGATIVE NEGATIVE Urine Methadone Screen NEGATIVE NEGATIVE Urine Propoxyphene Screen NEGATIVE NEGATIVE Urine Barbiturates Screen NEGATIVE NEGATIVE Ur Tricyclic Antidepressants Screen NEGATIVE NEGATIVE Urine Phencyclidine Screen NEGATIVE NEGATIVE Urine Amphetamines Screen NEGATIVE NEGATIVE Urine Methamphetamines Screen NEGATIVE NEGATIVE Urine Benzodiazepines Screen NEGATIVE NEGATIVE Urine Cocaine Screen NEGATIVE NEGATIVE Urine Cannabinoids Screen NEGATIVE NEGATIVE Urine Color YELLOW Urine Clarity CLEAR Urine pH 6.0 5-9 Urine Specific [place] >1.030 1.016-1.022 Urine Protein NEGATIVE NEGATIVE Urine Glucose (UA) NEGATIVE NEGATIVE Urine Ketones TRACE H NEGATIVE Urine Nitrite POSITIVE H NEGATIVE Urine Bilirubin NEGATIVE NEGATIVE Urine Urobilinogen 0.2 < = 1.0 MG/DL Urine Leukocyte Esterase NEGATIVE NEGATIVE Urine RBC (Auto) NEGATIVE NEGATIVE Urine RBC NONE /HPF Urine WBC 0-2 /HPF Urine Squamous Epithelial Cells 2-5 /HPF Urine Crystals NONE /LPF Urine Bacteria LARGE H /HPF Urine Casts PRESENT /LPF Urine Hyaline Casts 0-2 H /LPF Urine Mucus NEGATIVE /LPF Urine Culture Indicated YES White Blood Count 12.5 H 4.3-11.0 10^3/uL Red Blood Count 4.96 3.80-5.11 10^6/uL Hemoglobin 15.7 11.5-16.0 g/dL Hematocrit 47 35-52 % Mean Corpuscular Volume 94 80-99 fL Mean Corpuscular Hemoglobin 32 25-34 pg Mean Corpuscular Hemoglobin Concent 34 32-36 g/dL Red Cell Distribution Width 12.7 10.0-14.5 % Platelet Count 298 130-400 10^3/uL Mean Platelet Volume 10.0 9.0-12.2 fL Immature Granulocyte % (Auto) 0 % Neutrophils (%) (Auto) 81 H 42-75 % Lymphocytes (%) (Auto) 14 12-44 % Monocytes (%) (Auto) 4 0-12 % Eosinophils (%) (Auto) 1 0-10 % Basophils (%) (Auto) 0 0-10 % Neutrophils # (Auto) 10.1 H 1.8-7.8 10^3/uL Lymphocytes # (Auto) 1.7 1.0-4.0 10^3/uL Monocytes # (Auto) 0.5 0.0-1.0 10^3/uL Eosinophils # (Auto) 0.1 0.0-0.3 10^3/uL Basophils # (Auto) 0.1 0.0-0.1 10^3/uL Immature Granulocyte # (Auto) 0.1 0.0-0.1 10^3/uL Prothrombin Time 11.7 L 12.2-14.7 SEC INR Comment 0.8 0.8-1.4 Activated Partial Thromboplast Time 30 24-35 SEC Sodium Level 135 135-145 MMOL/L Potassium Level 3.9 3.6-5.0 MMOL/L Chloride Level 106 98-107 MMOL/L Carbon Dioxide Level 17 L 21-32 MMOL/L Anion Gap 12 5-14 MMOL/L Blood Urea Nitrogen 36 H 7-18 MG/DL Creatinine 2.14 H 0.60-1.30 MG/DL Estimat Glomerular Filtration Rate 27 BUN/Creatinine Ratio 17 Glucose Level 207 H 70-105 MG/DL Calcium Level 9.6 8.5-10.1 MG/DL Corrected Calcium 9.6 8.5-10.1 MG/DL Magnesium Level 1.9 1.6-2.4 MG/DL Total Bilirubin 0.2 0.1-1.0 MG/DL Aspartate Amino Transf (AST/SGOT) 14 5-34 U/L Alanine Aminotransferase (ALT/SGPT) 14 0-55 U/L Alkaline Phosphatase 67 40-136 U/L Total Creatine Kinase 82 29-168 U/L Creatine Kinase MB 2.2 <6.6 NG/ML Myoglobin 62.0 10.0-92.0 NG/ML Troponin I < 0.028 <0.028 NG/ML B-Type Natriuretic Peptide 63.9 <100.0 PG/ML Total Protein 7.0 6.4-8.2 GM/DL Albumin 4.0 3.2-4.5 GM/DL Amylase Level 125 25-125 U/L Lipase 49 8-78 U/L SARS-CoV-2 RNA (RT-PCR) Not Detected Not Detecte Test 07/07/22:22 Range/Units Serum Alcohol < 10 <10 MG/DL My Orders Orders - ABRAN MEJIA DO Ed Iv/Invasive Line Start (07/07/22 21:35) Amylase (07/07/22 21:35) Bnp Vicky (07/07/22 21:35) Cbc With Automated Diff (07/07/22 21:35) Comprehensive Metabolic Panel (07/07/22 21:35) Creatine Kinase (07/07/22 21:35) Creatine Kinase Mb (07/07/22 21:35) Drug Screen Stat (Urine) (07/07/22 21:35) Lipase (07/07/22 21:35) Magnesium (07/07/22 21:35) Protime With Inr (07/07/22 21:35) Partial Thromboplastin Time (07/07/22 21:35) Ua Culture If Indicated (07/07/22 21:35) Myoglobin Serum (07/07/22 21:35) Troponin I [place] (07/07/22 21:35) Ekg Tracing (07/07/22 21:35) Monitor-Rhythm Ecg Trace Only (07/07/22 21:35) Alcohol (07/07/22 21:55) Chest 1 View, Ap/Pa Only (07/07/22 21:55) Covid 19 Inhouse Test (07/07/22 21:55) Urine Culture (07/07/22 21:35) Ct Chest/Abdomen/Pelvis Wo (07/07/22 22:40) Ed Iv/Invasive Line Start (07/07/22 22:40) Ns Iv 1000 Ml (Sodium Chloride 0.9%) (07/07/22 22:45) Ceftriaxone 1 Gm Pre-Mix (Rocephin 1 Gm (07/07/22 23:38) Vital Signs/I&O 07/07/22 21:30 Temp 37.0 Pulse 70 Resp 20 B/P (MAP) 130/97 (108) Pulse Ox 98 O2 Delivery Room Air Capillary Refill : Less Than 3 Seconds Progress Note : Progress Note PT RESTED QUIETLY FOR ENTIRE ER STAY NO DETERIORATION IN PT'S CONDITION DURING ER STAY VITALS STABLE--NO HYPOTENSION, NO TACHYCARDIA, NO FEVER, NO HYPOXIA GIVEN IV FLUIDS AND ROCEPHIN FOR UTI MARKED DELAY IN OBTAINING CT REPORT ECG Initial ECG Impression Date: Jul 07, 2022 Initial ECG Impression Time: 21:43 Initial ECG Rate: 66 Initial ECG Rhythm: Normal Sinus Diagnostic Imaging Comments CXR--PER RADIOLOGIST REPORT AT 2234 Heart size and pulmonary vascularity are within normal limits. There is no pneumothorax or consolidation. No significant pleural fluid is seen. IMPRESSION: No definite acute abnormality. CT CHEST/ABDOMEN/PELVIS--PER RALPH MURDOCK RADIOLOGIST, VIA PHONE AT 0200. There is no evidence of pulmonary consolidation. No dominant mass is identified. Tiny subpleural nodules are seen in both lungs. There is no significant pleural or pericardial fluid. Coronary artery calcifications are present. There is very dense retroareolar breast parenchymal density somewhat greater on the right. IMPRESSION: No acute abnormality seen in the chest. There is asymmetric high density breast parenchyma particularly on the right which could be further assessed with physical examination and screening mammography as indicated. CT abdomen and pelvis: There has been previous cholecystectomy. No focal hepatic, pancreatic, adrenal gland or splenic abnormality is identified. There has been previous surgical resection in the left upper quadrant. There is edema and/or inflammation anterior to the stomach extending to the anterior abdominal wall. In addition, there does appear to be small amount of gas interposed between the stomach and the left lobe of the liver with mild pneumoperitoneum and small amount of perihepatic free fluid. No organized fluid collection is identified. Inflammation extends anteriorly to level of umbilical hernia. Bowel protrudes into the hernia sac, however, there is no evidence of obstruction. No definite adrenal or renal abnormality identified. There is artifact from spinal hardware which obscures portions of the retroperitoneum. There is a mild amount of pelvic free fluid. Unopacified bladder is unremarkable. IMPRESSION: Findings are suggestive of probable gastric perforation with pneumoperitoneum and pre-gastric inflammation. Small amount of abdominal and pelvic free fluid is also present. Note is made of umbilical hernia containing protruding bowel loop without obstruction. ALSO RECEIVED STAT RAD REPORT VIA PHONE AT 0309 AND VIA FAXED REPORT AT 0342 FINDINGS ESSENTIALLY THE SAME ABOVE. Reviewed: Reviewed by Me, Discussed w/Radiologist Departure Communication (Admissions) 207--SPOKE WITH DR. WELLS, SURGEON DIE CAST SUPERVISOR. HE ADVISES TO ADMIT TO MEDICINE SERVICE AND HE WILL SEE PT TOMORROW. DOES NOT ADVISE ANY OTHER TREATMENT AT THIS TIME. 209--SPOKE WITH DR. VALDES, HOSPITALIST FOR [facility]. ACCEPTS PT FOR ADMIT. NO ADDITIONAL RECOMMENDATIONS AT THIS TIME. Impression Primary Impression: Gastric perforation Additional Impressions: UTI (urinary tract infection) History of gastric bypass Chronic renal insufficiency CHRONIC NSAID USE Alcohol abuse Smoker Disposition: ADMITTED INPATIENT Condition: Stable Admissions Decision to Admit Reason: Admit from ER (General) Decision to Admit/Date: Jul 08, 2022 Time/Decision to Admit Time: 02:10 Departure-Patient Inst. Referrals: ASHVIN ROBERTS MD (PCP/Family) Primary Care Physician ABRAN MEJIA DO Jul 07, 2022 21:59
[2022-07-07 22:00] LABS: BILIRUBIN,URINE NEGATIVE (NEGATIVE); GLUCOSE, URINE (UA) NEGATIVE (NEGATIVE); KETONES,URINE TRACE (NEGATIVE); LEUKOCYTE ESTERASE ,URINE NEGATIVE (NEGATIVE); NITRITE,URINE POSITIVE (NEGATIVE); PROTEIN,URINE NEGATIVE (NEGATIVE)
[2022-07-07 22:04] LABS: BACTERIA,URINE LARGE /HPF; WBC,URINE 0-2 /HPF
[2022-07-07 22:05] LABS: HYALINE CASTS, URINE 0-2 /LPF
[2022-07-07 22:08] LABS: AMPHETAMINE SCREEN, URINE NEGATIVE (NEGATIVE); BARBITURATE SCREEN URINE NEGATIVE (NEGATIVE); BENZODIAZEPINES SCREEN URINE NEGATIVE (NEGATIVE); CANNABINOID SCREEN, URINE NEGATIVE (NEGATIVE); COCAINE SCREEN URINE NEGATIVE (NEGATIVE); METHADONE STAT NEGATIVE (NEGATIVE); OPIATE SCREEN URINE NEGATIVE (NEGATIVE); OXYCODONE STAT NEGATIVE (NEGATIVE); PROPOXYPHENE STAT NEGATIVE (NEGATIVE); TRICYCLIC ANTIDEPRESSANTS SCRE NEGATIVE (NEGATIVE)
--- NOTE | 2022-07-07 22:09 | Diagnostic Imaging Report ---
INDICATION: Chest pain. EXAMINATION: Portable AP view of the chest was obtained. COMPARISON: Study of 01/29/2018. Heart size and pulmonary vascularity are within normal limits. There is no pneumothorax or consolidation. No significant pleural fluid is seen. IMPRESSION: No definite acute abnormality. Dictated by: Dictated on workstation # [id number]
[2022-07-07 22:19] LABS: INR 0.8 (0.8-1.4); PROTHROMBIN TIME PATIENT 11.7 SEC (12.2-14.7)
[2022-07-07 22:20] LABS: CHLORIDE 106 MMOL/L (98-107); POTASSIUM 3.9 MMOL/L (3.6-5.0); SODIUM 135 MMOL/L (135-145)
[2022-07-07 22:22] LABS: AMYLASE 125 U/L (25-125); CALCIUM 9.6 MG/DL (8.5-10.1)
[2022-07-07 22:23] LABS: GLUCOSE 207 MG/DL (70-105)
[2022-07-07 22:24] LABS: CARBON DIOXIDE 17 MMOL/L (21-32)
[2022-07-07 22:25] LABS: BILIRUBIN,TOTAL 0.2 MG/DL (0.1-1.0)
[2022-07-07 22:26] LABS: ALKALINE PHOSPHATASE 67 U/L (40-136); CREATININE SERUM 2.14 MG/DL (0.60-1.30); GFR ESTIMATED 27
[2022-07-07 22:27] LABS: BUN/CREATININE RATIO 17
[2022-07-07 22:29] LABS: ALANINE AMINOTRANSFERASE 14 U/L (0-55); MAGNESIUM 1.9 MG/DL (1.6-2.4)
[2022-07-07 22:31] LABS: CREATINE KINASE 82 U/L (29-168); LIPASE 49 U/L (8-78)
[2022-07-07 22:37] LABS: CREATINE KINASE MB 2.2 NG/ML (<6.6)
[2022-07-07] MEDS ORDERED: NS IV 1000 ML 1,000 ML IV SCH (22:45)
[2022-07-07] MEDS ORDERED: cefTRIAXone 1 GM PRE-MIX 50 ML IV STA (23:38)
[2022-07-08] MEDS ORDERED: PANTOPRAZOLE 40 MG (PROTONIX) VIAL IV ONE (02:15)
[2022-07-08] MEDS ORDERED: fentaNYL INJ 100 MCG/2 ML AMP IVP ONE (02:15)
[2022-07-08 03:40] VITALS: BP 125/82
[2022-07-08] MEDS ORDERED: ONDANSETRON 4 MG/2 ML (SDV) Z0FRAN IV PRN ×2 (04:00→09:30)
[2022-07-08] MEDS: D5 1/2 NS W/KCL 20 MEQ/L 1,000 ML IV SCH ×3 (04:08→17:46)
[2022-07-08] MEDS ORDERED: SPIR25TA5 PO (04:35)
[2022-07-08] MEDS ORDERED: LISI40TA9 PO (04:35)
[2022-07-08] MEDS ORDERED: AMLO-251 PO (04:35)
[2022-07-08] MEDS ORDERED: FLUT16SP22 (04:35)
[2022-07-08] MEDS ORDERED: HYDR25TA4 PO (04:35)
--- NOTE | 2022-07-08 05:21 | Diagnostic Imaging Report ---
PROCEDURE: CT chest, abdomen, and pelvis without contrast. TECHNIQUE: Multiple contiguous axial images were obtained through the chest, abdomen, and pelvis without the use of intravenous contrast. Auto Exposure Controls were utilized during the CT exam to meet ALARA standards for radiation dose reduction. INDICATION: Toxic substance ingestion There is no evidence of pulmonary consolidation. No dominant mass is identified. Tiny subpleural nodules are seen in both lungs. There is no significant pleural or pericardial fluid. Coronary artery calcifications are present. There is very dense retroareolar breast parenchymal density somewhat greater on the right. IMPRESSION: No acute abnormality seen in the chest. There is asymmetric high density breast parenchyma particularly on the right which could be further assessed with physical examination and screening mammography as indicated. CT abdomen and pelvis: There has been previous cholecystectomy. No focal hepatic, pancreatic, adrenal gland or splenic abnormality is identified. There has been previous surgical resection in the left upper quadrant. There is edema and/or inflammation anterior to the stomach extending to the anterior abdominal wall. In addition, there does appear to be small amount of gas interposed between the stomach and the left lobe of the liver with mild pneumoperitoneum and small amount of perihepatic free fluid. No organized fluid collection is identified. Inflammation extends anteriorly to level of umbilical hernia. Bowel protrudes into the hernia sac, however, there is no evidence of obstruction. No definite adrenal or renal abnormality identified. There is artifact from spinal hardware which obscures portions of the retroperitoneum. There is a mild amount of pelvic free fluid. Unopacified bladder is unremarkable. IMPRESSION: Findings are suggestive of probable gastric perforation with pneumoperitoneum and pre-gastric inflammation. Small amount of abdominal and pelvic free fluid is also present. Note is made of umbilical hernia containing protruding bowel loop without obstruction. Dictated by: Dictated on workstation # [id number]
[2022-07-08 06:13] LABS: BASOPHILS % (AUTO) 0 % (0-10); EOSINOPHILS % (AUTO) 0 % (0-10); HEMATOCRIT 42 % (35-52); HEMOGLOBIN 14.1 g/dL (11.5-16.0); LYMPHOCYTES # (AUTO) 0.5 10^3/uL (1.0-4.0); LYMPHOCYTES % (AUTO) 4 % (12-44); MEAN CORPUSCULAR HEMOGLOBIN 32 pg (25-34); MEAN CORPUSCULAR HGB CONC 33 g/dL (32-36); MEAN CORPUSCULAR VOLUME 94 fL (80-99); MEAN PLATELET VOLUME 10.6 fL (9.0-12.2); MONOCYTES # (AUTO) 0.5 10^3/uL (0.0-1.0); MONOCYTES % (AUTO) 4 % (0-12); NEUTROPHILS # (AUTO) 10.3 10^3/uL (1.8-7.8); NEUTROPHILS % (AUTO) 91 % (42-75); PLATELET COUNT 247 10^3/uL (130-400); WHITE BLOOD COUNT 11.3 10^3/uL (4.3-11.0)
[2022-07-08 06:40] LABS: CREATININE SERUM 1.93 MG/DL (0.60-1.30); POTASSIUM 3.9 MMOL/L (3.6-5.0)
[2022-07-08 06:43] LABS: BAND NEUTROPHILS 8 %; BASOPHILS % (MANUAL) 0 %; EOSINOPHILS % (MANUAL) 0 %; LYMPHOCYTES % (MANUAL) 1 %; MONOCYTES % (MANUAL) 4 %; NEUTROPHILS % (MANUAL) 87 %; RBC MORPH NORMAL
[2022-07-08] MEDS: fentaNYL INJ 100 MCG/2 ML AMP IV PRN ×3 (06:57→23:08)
[2022-07-08 07:27] VITALS: BP 117/78
[2022-07-08] MEDS: PANTOPRAZOLE 40 MG (PROTONIX) VIAL IV SCH ×2 (08:24→20:06)
[2022-07-08] MEDS ORDERED: 1/2 NS IV SOLUTION 1,000 ML IV PRN (09:30)
[2022-07-08] MEDS ORDERED: LORazepam INJ 2 MG/ML (ATIVAN) VIAL IV PRN (09:30)
[2022-07-08] MEDS ORDERED: LORazepam INJ 2 MG/ML (ATIVAN) VIAL IM/IV PRN (09:30)
[2022-07-08] MEDS ORDERED: D5 1/2 NS 1000 ML IV SOLUTION 1,000 ML IV PRN (09:30)
--- NOTE | 2022-07-08 10:21 | Consultation - Surgery ---
GAMALIELMACARIO 07/08/22 1021: History of Present Illness History of Present Illness Patient Consulted On(lucretia/time) 07/08/22 10:14 Date Seen by Provider: Jul 08, 2022 Time Seen by Provider: 09:20 History of Present Illness Pt presented yesterday with severe abdominal pain that occurred while she was eating a tomato. She has a h/o RYGB, alcohol/tobacco abuse. This morning she is under no distress and is only in mild pain. The pain is diffuse in the abdomen but it has improved since yesterday. She denies any nausea or vomiting. Had some diarrhea yesterday. No sweats or chills last night. Allergies and Home Medications Allergies Coded Allergies: metronidazole (Unverified Allergy, Mild, HIVES, 11/01/06) duloxetine (Verified Allergy, Unknown, 01/29/18) ibuprofen (Verified Allergy, Unknown, 01/29/18) pregabalin (Verified Allergy, Unknown, 01/29/18) Patient Home Medication List Albuterol Sulfate (Proair Hfa) 1 Puff Puff, 2 PUFF IH Q4H PRN for SHORTNESS OF BREATH, (Reported) Entered as Reported by: JORGE LUIS NATION on 01/30/18825 Last Action: Reviewed Amlodipine Besylate (Amlodipine Besylate) 10 Mg Tablet, 10 MG PO DAILY, (Reported) Entered as Reported by: THANIA TIMMONS on 07/08/22434 Last Action: Reviewed Aspirin (Aspirin EC) 81 Mg Tablet.dr, 81 MG PO DAILY, (Reported) Entered as Reported by: JORGE LUIS NATION on 01/30/18825 Last Action: Reviewed Cyanocobalamin (Cyanocobalamin Injection) 1,000 Mcg/Ml Inj, 1,000 MCG IJ EVERY OTHER MONTH, (Reported) Entered as Reported by: JORGE LUIS NATION on 01/30/18825 Last Action: Reviewed Fluoxetine HCl (Prozac) 20 Mg Capsule, 20 MG PO HS, (Reported) Entered as Reported by: JORGE LUIS NATION on 01/30/18825 Last Action: Reviewed Fluticasone Propionate (Fluticasone Propionate) 50 Mcg/Actuation Oracle.susp, 50 MCG NA BID PRN for DRY NOSE, (Reported) Entered as Reported by: THANIA TIMMONS on 07/08/22434 Last Action: Reviewed Hydrochlorothiazide (Hydrochlorothiazide) 25 Mg Tablet, 25 MG PO DAILY, (Reported) Entered as Reported by: THANIA TIMMONS on 07/08/22434 Last Action: Reviewed Lisinopril (Lisinopril) 40 Mg Tablet, 40 MG PO DAILY, (Reported) Entered as Reported by: THANIA TIMMONS on 07/08/22434 Last Action: Reviewed Multivitamin (Daily Multiple Vitamin) 1 Each Tablet, 1 TAB PO BID, (Reported) Entered as Reported by: JORGE LUIS NATION on 01/30/18825 Last Action: Reviewed Omeprazole (Omeprazole) 20 Mg Capsule.dr, 20 MG PO HS, (Reported) Entered as Reported by: JORGE LUIS NATION on 01/30/18825 Last Action: Reviewed Spironolactone (Spironolactone) 25 Mg Tablet, 25 MG PO DAILY, (Reported) Entered as Reported by: THANIA TIMMONS on 07/08/22434 Last Action: Reviewed Discontinued Medications Acetaminophen (Tylenol Extra Strength) 500 Mg Tablet, 1,000 MG PO Q6H PRN for PAIN-MILD, (Reported) Discontinued Reason: No Longer Taking Entered as Reported by: JORGE LUIS NATION on 01/30/18828 Last Action: Discontinued Atenolol (Atenolol) 25 Mg Tablet, 25 MG PO DAILY, (Reported) Discontinued Reason: No Longer Taking Entered as Reported by: JORGE LUIS NATION on 01/30/18940 Last Action: Discontinued Oxycodone HCl (Oxycodone HCl) 10 Mg Tablet, 10 MG PO TID PRN for PAIN-SEVERE, (Reported) Discontinued Reason: No Longer Taking Entered as Reported by: JORGE LUIS NATION on 01/30/18825 Last Action: Discontinued Past Jyhhacr-Ihjlas-Vujtjj Hx Patient Social History Drug of Choice: THC Smoking Status: Current Everyday Smoker Type Used: Cigarettes Alcohol Use?: Yes Have you traveled recently?: No Immunizations Up To Date Tetanus Booster (TDap): More than 5yrs Surgeries History of Surgeries: Yes Surgeries: Abdominal, Adenoidectomy, Cardiac, Gallbladder, 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, Oophorectomy, Orthopedic, Tonsillectomy Respiratory History of Respiratory Disorde: Yes Respiratory Disorders: Asthma, COPD Cardiovascular History of Cardiac Disorders: Yes Cardiac Disorders: 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, Hypertension Neurological History of Neurological Disord: No 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, 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 Genitourinary History of Genitourinary Disor: Yes (CHRONIC RENAL INSUFFICIENCY--NO DIALYSIS OR COSMETOLOGIST) Gastrointestinal History of Gastrointestinal Di: Yes (S/P GASTRIC BYPASS AND CHOLECYSTECTOMY) Gastrointestinal Disorders: Gastroesophageal Reflux, Chronic Constipation Musculoskeletal History of Musculoskeletal Dis: Yes (CHRONIC GENERALIZED PAIN ) Musculoskeletal Disorders: Degenerate Disk Disease, Arthritis, Fibromyalgia, Chronic Back Pain, Fractures Endocrine History of Endocrine Disorders: Yes (OBESITY) HEENT History of HEENT Disorders: No HEENT Disorders: Tonsilitis Cancer History of Cancer: No Psychosocial History of Psychiatric Problem: Yes (ALCOHOL ABUSE, THC USE) Behavioral Health Disorders: Anxiety, Depression Integumentary History of Skin or Integumenta: No Blood Transfusions History of Blood Disorders: No Family Medical History Family Medial History: Cancer 03 FATHER Cataract 03 FATHER 03 MOTHER Chest pain 03 FATHER Congestive heart failure 03 FATHER Family history: Arthritis 03 FATHER 03 MOTHER 09 BROTHER Family history: Cardiovascular disease 03 FATHER Family history: Diabetes mellitus 03 FATHER 09 BROTHER Family history: Hypertension 03 FATHER 03 MOTHER 09 BROTHER Family history: Osteoporosis 03 MOTHER 09 BROTHER Headache 03 FATHER 03 MOTHER 09 BROTHER Hearing loss 03 FATHER Heart disease 03 FATHER History of - anemia 09 BROTHER History of - respiratory disease 03 FATHER History of drug abuse 09 BROTHER Hypercholesterolemia 03 FATHER Visual impairment 03 FATHER 03 MOTHER 09 BROTHER No Family History of: Abdominal aortic aneurysm Iredell's disease Alcoholism Aphasia Cancer of colon Congenital heart disease Cystic fibrosis Dementia Dysphagia Family history: Allergy Family history: Alzheimer's disease Family history: Asthma Family history: Breast disease Family history: Coronary thrombosis Family history: Gastrointestinal disease Family history: Glaucoma Family history: Thyroid disorder Hereditary disease History of - disorder Human immunodeficiency virus (HIV) seropositivity Infertile Kidney disease Malignant neoplasm of lung Myocardial infarction Parkinson's disease Prostate cancer Psychotic disorder Seizure disorder Stroke Tuberculosis Review of Systems-General Constitutional: No chills, No diaphoresis Respiratory: No short of breath Cardiovascular: chest pain (improved today) Gastrointestinal: abdominal pain (diffuse) Physical Exam-General Problems Physical Exam Vital Signs Vital Signs - First Documented 07/07/22 21:30 Temp 37.0 Pulse 70 Resp 20 B/P (MAP) 130/97 (108) Pulse Ox 98 O2 Delivery Room Air Capillary Refill : Less Than 3 Seconds General Appearance: WD/WN, no apparent distress HEENT: PERRL/EOMI Respiratory: lungs clear, no respiratory distress Cardiovascular: regular rate, rhythm, no murmur Gastrointestinal: soft, abnormal bowel sounds (decreased), guarding, tenderness (diffuse) Extremities: normal inspection, normal capillary refill Neurologic/Psychiatric: alert, oriented x 3 Skin: normal color, warm/dry Data Review Labs Laboratory Tests 07/07/22 21:30: Urine Opiates Screen NEGATIVE, Urine Oxycodone Screen NEGATIVE, Urine Methadone Screen NEGATIVE, Urine Propoxyphene Screen NEGATIVE, Urine Barbiturates Screen NEGATIVE, Ur Tricyclic Antidepressants Screen NEGATIVE, Urine Phencyclidine Screen NEGATIVE, Urine Amphetamines Screen NEGATIVE, Urine Methamphetamines Screen NEGATIVE, Urine Benzodiazepines Screen NEGATIVE, Urine Cocaine Screen NEGATIVE, Urine Cannabinoids Screen NEGATIVE 07/07/22 21:35: Urine Color YELLOW, Urine Clarity CLEAR, Urine pH 6.0, Urine Specific [place] >1.030, Urine Protein NEGATIVE, Urine Glucose (UA) NEGATIVE, Urine Ketones TRACEH, Urine Nitrite POSITIVEH, Urine Bilirubin NEGATIVE, Urine Urobilinogen 0.2, Urine Leukocyte Esterase NEGATIVE, Urine RBC (Auto) NEGATIVE, Urine RBC NONE, Urine WBC 0-2, Urine Squamous Epithelial Cells 2-5, Urine Crystals NONE, Urine Bacteria LARGEH, Urine Casts PRESENT, Urine Hyaline Casts 0-2H, Urine Mucus NEGATIVE, Urine Culture Indicated YES 07/07/22 21:47: White Blood Count 12.5H, Red Blood Count 4.96, Hemoglobin 15.7, Hematocrit 47, Mean Corpuscular Volume 94, Mean Corpuscular Hemoglobin 32, Mean Corpuscular Hemoglobin Concent 34, Red Cell Distribution Width 12.7, Platelet Count 298, Mean Platelet Volume 10.0, Immature Granulocyte % (Auto) 0, Neutrophils (%) (Auto) 81H, Lymphocytes (%) (Auto) 14, Monocytes (%) (Auto) 4, Eosinophils (%) (Auto) 1, Basophils (%) (Auto) 0, Neutrophils # (Auto) 10.1H, Lymphocytes # (Auto) 1.7, Monocytes # (Auto) 0.5, Eosinophils # (Auto) 0.1, Basophils # (Auto) 0.1, Immature Granulocyte # (Auto) 0.1, Prothrombin Time 11.7L, INR Comment 0.8, Activated Partial Thromboplast Time 30, Sodium Level 135, Potassium Level 3.9, Chloride Level 106, Carbon Dioxide Level 17L, Anion Gap 12, Blood Urea Nitrogen 36H, Creatinine 2.14H, Estimat Glomerular Filtration Rate 27, BUN/Creatinine Ratio 17, Glucose Level 207H, Calcium Level 9.6, Corrected Calcium 9.6, Magnesium Level 1.9, Total Bilirubin 0.2, Aspartate Amino Transf (AST/SGOT) 14, Alanine Aminotransferase (ALT/SGPT) 14, Alkaline Phosphatase 67, Total Creatine Kinase 82, Creatine Kinase MB 2.2, Myoglobin 62.0, Troponin I < 0.028, B-Type Natriuretic Peptide 63.9, Total Protein 7.0, Albumin 4.0, Amylase Level 125, Lipase 49 07/07/22 21:57: SARS-CoV-2 RNA (RT-PCR) Not Detected 07/07/22 22:22: Serum Alcohol < 10 07/08/22 05:43: White Blood Count 11.3H, Red Blood Count 4.48, Hemoglobin 14.1, Hematocrit 42, Mean Corpuscular Volume 94, Mean Corpuscular Hemoglobin 32, Mean Corpuscular Hemoglobin Concent 33, Red Cell Distribution Width 12.7, Platelet Count 247, Mean Platelet Volume 10.6, Immature Granulocyte % (Auto) 1, Neutrophils (%) (Auto) 91H, Lymphocytes (%) (Auto) 4L, Monocytes (%) (Auto) 4, Eosinophils (%) (Auto) 0, Basophils (%) (Auto) 0, Neutrophils # (Auto) 10.3H, Lymphocytes # (Auto) 0.5L, Monocytes # (Auto) 0.5, Eosinophils # (Auto) 0.0, Basophils # (Auto) 0.0, Immature Granulocyte # (Auto) 0.1, Neutrophils % (Manual) 87, Lymphocytes % (Manual) 1, Monocytes % (Manual) 4, Eosinophils % (Manual) 0, Basophils % (Manual) 0, Band Neutrophils 8, Blood Morphology Comment NORMAL, Sodium Level 139, Potassium Level 3.9, Chloride Level 110H, Carbon Dioxide Level 17L, Anion Gap 12, Blood Urea Nitrogen 30H, Creatinine 1.93H, Estimat Glomerular Filtration Rate 30, BUN/Creatinine Ratio 16, Glucose Level 139H, Calcium Level 9.0 Microbiology 07/07/22 Urine Culture - Preliminary, Resulted Escherichia coli Assessment/Plan Assessment/Plan Assessment/Plan Gastric perforation Chronic NSAID use Chronic renal insufficiency Chronic alcohol abuse h/o RYGB Pt hemodynamically stable, not septic and has no signs of peritonitis.. White count is also lower today so we will keep the pt NPO and observe for now. Discussed with the patient that surgery may be necessary if her symptoms worsen.. Clinical Quality Measures AMI/AHF: ASA po Prior to arrival: LESLY Bush DO 07/08/22 1510: History of Present Illness History of Present Illness Time Seen by Provider: 11:40 History of Present Illness Surgery asked to consult regarding abdominal pain and pneumoperitoneum. HPI per ED: PT ARRIVES VIA POV FROM HOME, STATES AROUND 1800 TONIGHT, SHE WAS STANDING IN THE KITCHEN EATING TOMATOES ON TOAST--TOOK ONLY ONE BITE OF TOMATO, AND HAD SUDDEN SHARP SEVERE STABBING PAIN IN EPIGASTRIC AREA AND PAIN IS ALL OVER HER ENTIRE UPPER ABDOMEN AND ALL OVER HER ENTIRE CHEST AND INTO HER LEFT SHOULDER, STATES IT IS NOT STABBING ANYMORE, BUT IS A CONSTANT PAIN THAT IS GETTING WORSE, LEFT ARM FELT A LITTLE TINGLY, BUT NOT NOW STATES IT HURTS TO BREATHE, BUT DOES NOT FEEL SHORT OF BREATH, PAIN IS MUCH WORSE WITH WALKING OR ANY MOVEMENTS OF ANY KIND, + NAUSEA, NO VOMITING, + SWEATS "A LITTLE BIT" AND FELT SHAKEY NO DIZZINESS OR SYNCOPE, STATES HER HEART WAS BEATING A LITTLE FAST, BUT WAS FEELING VERY ANXIOUS AT THE TIME-NOT OCCURRING NOW. NO SWELLING IN LEGS/ FEET OR PAIN IN CALVES, HAS HAD CHEST PAINS BEFORE BUT PT STATES SHE WAS TOLD IT WAS FROM ANXIETY. DENIES ANY CARDIAC PROCEDURES OR ANY CARDIAC DIAGNOSES. STATES SHE HAS NOT TAKEN ANY OF HER MEDICATIONS FOR 3 DAYS--GIVES NO REASON WHY SHE HAS NOT TAKEN THEM--"JUST HAVEN'T" PT DRINKS UP TO 1/2 PINT OF VODKA "ALMOST EVERY DAY" --"JUST A FEW LITTLE SHOTS THROUGHOUT THE DAY SO I CAN GET MY WORK DONE" STATES SHE "ONLY HAD A COUPLE OF LITTLE SHOTS" OF VODKA TODAY PT HAS HAD MARLENE-EN-Y GASTRIC BYPASS IN 2000 IN [place], WELL CHOLECYSTECTOMY. SHE HAS ALSO HAD HYSTERECTOMY/BILATERAL SALPINGO-OOPHORECTOMY AND BACK SURGERY, WELL OTHER ORTHOPEDIC SURGERIES PT LATER STATES THAT SHE TAKES AT LEAST 800 MG OF OVER THE COUNTER IBUPROFEN AT LEAST 4-6 TIMES A DAY EVERY DAY FOR HER CHRONIC GENERALIZED PAIN, STATES SHE HAS "LOW KIDNEY FUNCTION" , WELL HTN, FIBROMYALGIA, ARTHRITIS, CHRONIC NECK AND BACK PAIN, AND DEPRESSION/ANXIETY--DOES NOT TAKE PSYCH MEDICATIONS. When I spoke to pt this afternoon she was still having pain but stated it was better than it was. Pt was lying in bed and appeared comfortable. She rates the pain as a 5 today, it was at least 9 last night. Has never had pain like this before. Pt states she takes NSAIDS daily, over 1000mg easily. Allergies and Home Medications Allergies Coded Allergies: metronidazole (Unverified Allergy, Mild, HIVES, 11/01/06) duloxetine (Verified Allergy, Unknown, 01/29/18) ibuprofen (Verified Allergy, Unknown, 01/29/18) pregabalin (Verified Allergy, Unknown, 01/29/18) Patient Home Medication List Home Medication List Reviewed: Yes Albuterol Sulfate (Proair Hfa) 1 Puff Puff, 2 PUFF IH Q4H PRN for SHORTNESS OF BREATH, (Reported) Entered as Reported by: JORGE LUIS NATION on 01/30/18825 Last Action: Reviewed Amlodipine Besylate (Amlodipine Besylate) 10 Mg Tablet, 10 MG PO DAILY, (Reported) Entered as Reported by: THANIA TIMMONS on 07/08/22434 Last Action: Reviewed Aspirin (Aspirin EC) 81 Mg Tablet.dr, 81 MG PO DAILY, (Reported) Entered as Reported by: JORGE LUIS NATION on 01/30/18825 Last Action: Reviewed Cyanocobalamin (Cyanocobalamin Injection) 1,000 Mcg/Ml Inj, 1,000 MCG IJ EVERY OTHER MONTH, (Reported) Entered as Reported by: JORGE LUIS NATION on 01/30/18825 Last Action: Reviewed Fluoxetine HCl (Prozac) 20 Mg Capsule, 20 MG PO HS, (Reported) Entered as Reported by: JORGE LUIS NATION on 01/30/18825 Last Action: Reviewed Fluticasone Propionate (Fluticasone Propionate) 50 Mcg/Actuation Oracle.susp, 50 MCG NA BID PRN for DRY NOSE, (Reported) Entered as Reported by: THANIA TIMMONS on 07/08/22434 Last Action: Reviewed Hydrochlorothiazide (Hydrochlorothiazide) 25 Mg Tablet, 25 MG PO DAILY, (Reported) Entered as Reported by: THANIA TIMMONS on 07/08/22434 Last Action: Reviewed Lisinopril (Lisinopril) 40 Mg Tablet, 40 MG PO DAILY, (Reported) Entered as Reported by: THANIA TIMMONS on 07/08/22434 Last Action: Reviewed Multivitamin (Daily Multiple Vitamin) 1 Each Tablet, 1 TAB PO BID, (Reported) Entered as Reported by: JORGE LUIS NATION on 01/30/18825 Last Action: Reviewed Omeprazole (Omeprazole) 20 Mg Capsule.dr, 20 MG PO HS, (Reported) Entered as Reported by: JORGE LUIS NATION on 01/30/18825 Last Action: Reviewed Spironolactone (Spironolactone) 25 Mg Tablet, 25 MG PO DAILY, (Reported) Entered as Reported by: THANIA TIMMONS on 07/08/22434 Last Action: Reviewed Discontinued Medications Acetaminophen (Tylenol Extra Strength) 500 Mg Tablet, 1,000 MG PO Q6H PRN for PA IN-MILD, (Reported) Discontinued Reason: No Longer Taking Entered as Reported by: JORGE LUIS NATION on 01/30/18828 Last Action: Discontinued Atenolol (Atenolol) 25 Mg Tablet, 25 MG PO DAILY, (Reported) Discontinued Reason: No Longer Taking Entered as Reported by: JORGE LUIS NATION on 01/30/18940 Last Action: Discontinued Oxycodone HCl (Oxycodone HCl) 10 Mg Tablet, 10 MG PO TID PRN for PAIN-SEVERE, (Reported) Discontinued Reason: No Longer Taking Entered as Reported by: JORGE LUIS NATION on 01/30/18825 Last Action: Discontinued Past Jnujbyb-Nczruy-Egxlbp Hx Patient Social History Smoking Status: Current Everyday Smoker Type Used: Cigarettes Alcohol Use?: Yes Immunizations Up To Date Tetanus Booster (TDap): More than 5yrs Surgeries History of Surgeries: Yes Surgeries: Abdominal (Marlene en Y gastric bypass), Adenoidectomy, Gallbladder, 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, Oophorectomy, Orthopedic, Tonsillectomy Respiratory History of Respiratory Disorde: Yes Respiratory Disorders: COPD Cardiovascular History of Cardiac Disorders: Yes Cardiac Disorders: 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, Hypertension Neurological History of Neurological Disord: No 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, 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 Genitourinary History of Genitourinary Disor: Yes (chronic renal insufficiency) Gastrointestinal History of Gastrointestinal Di: Yes Gastrointestinal Disorders: Gastroesophageal Reflux, Chronic Constipation, Gall Bladder Disease Musculoskeletal History of Musculoskeletal Dis: Yes Musculoskeletal Disorders: Degenerate Disk Disease, Arthritis, Fibromyalgia, Chronic Back Pain, Fractures Endocrine History of Endocrine Disorders: No HEENT History of HEENT Disorders: Yes HEENT Disorders: Tonsilitis Loss of Vision: Denies Hearing Impairment: Denies Cancer History of Cancer: No Psychosocial History of Psychiatric Problem: Yes Behavioral Health Disorders: Depression Integumentary History of Skin or Integumenta: No Family Medical History Significant Family History: Heart Disease, Cancer, Diabetes, Hypertension, Migraines Family Medial History: Cancer 03 FATHER Cataract 03 FATHER 03 MOTHER Chest pain 03 FATHER Congestive heart failure 03 FATHER Family history: Arthritis 03 FATHER 03 MOTHER 09 BROTHER Family history: Cardiovascular disease 03 FATHER Family history: Diabetes mellitus 03 FATHER 09 BROTHER Family history: Hypertension 03 FATHER 03 MOTHER 09 BROTHER Family history: Osteoporosis 03 MOTHER 09 BROTHER Headache 03 FATHER 03 MOTHER 09 BROTHER Hearing loss 03 FATHER Heart disease 03 FATHER History of - anemia 09 BROTHER History of - respiratory disease 03 FATHER History of drug abuse 09 BROTHER Hypercholesterolemia 03 FATHER Visual impairment 03 FATHER 03 MOTHER 09 BROTHER Review of Systems-General Constitutional: No chills, No diaphoresis EENTM: No blurred vision, No double vision, No epistaxis Respiratory: No cough, No short of breath Cardiovascular: chest pain (improved today); No palpitations Gastrointestinal: abdominal pain (diffuse); No jaundice; nausea; No vomiting Genitourinary: No dysuria, No frequency, No hematuria Musculoskeletal: back pain, joint pain, joint swelling, muscle pain, muscle stiffness, muscle cramps, other (joint stiffness) Skin: No change in color, No change in hair/nails Psychiatric/Neurological: Anxiety, Depressed; Denies Seizure, Denies Tremors Physical Exam-General Problems Physical Exam General Appearance: WD/WN, mild distress (secondary to pain) Eyes: Bilateral Eye PERRL, Bilateral Eye EOMI HEENT: pharynx normal; No scleral icterus (R), No scleral icterus (L) Neck: non-tender, supple Respiratory: lungs clear, normal breath sounds, no respiratory distress, no accessory muscle use Cardiovascular: regular rate, rhythm, no murmur Gastrointestinal: soft, abnormal bowel sounds (decreased), guarding (voluntary), tenderness (diffuse, but the worst is subxyphoid. has pain in upper abd when RLQ pressed, LLQ no pain), hernia (large ventral/incisional hernia) Rectal: deferred Extremities: no pedal edema, no calf tenderness, normal capillary refill Neurologic/Psychiatric: team psychologist II-XII nml as tested, alert, oriented x 3 Skin: normal color, warm/dry Lymphatic: no adenopathy (neck, axilla or groin) Data Review Radiology Date of Exam:07/07/22 CT CHEST/ABDOMEN/PELVIS WO PROCEDURE: CT chest, abdomen, and pelvis without contrast. TECHNIQUE: Multiple contiguous axial images were obtained through the chest, abdomen, and pelvis without the use of intravenous contrast. Auto Exposure Controls were utilized during the CT exam to meet ALARA standards for radiation dose reduction. INDICATION: Toxic substance ingestion There is no evidence of pulmonary consolidation. No dominant mass is identified. Tiny subpleural nodules are seen in both lungs. There is no significant pleural or pericardial fluid. Coronary artery calcifications are present. There is very dense retroareolar breast parenchymal density somewhat greater on the right. IMPRESSION: No acute abnormality seen in the chest. There is asymmetric high density breast parenchyma particularly on the right which could be further assessed with physical examination and screening mammography as indicated. CT abdomen and pelvis: There has been previous cholecystectomy. No focal hepatic, pancreatic, adrenal gland or splenic abnormality is identified. There has been previous surgical resection in the left upper quadrant. There is edema and/or inflammation anterior to the stomach extending to the anterior abdominal wall. In addition, there does appear to be small amount of gas interposed between the stomach and the left lobe of the liver with mild pneumoperitoneum and small amount of perihepatic free fluid. No organized fluid collection is identified. Inflammation extends anteriorly to level of umbilical hernia. Bowel protrudes into the hernia sac, however, there is no evidence of obstruction. No definite adrenal or renal abnormality identified. There is artifact from spinal hardware which obscures portions of the retroperitoneum. There is a mild amount of pelvic free fluid. Unopacified bladder is unremarkable. IMPRESSION: Findings are suggestive of probable gastric perforation with pneumoperitoneum and pre-gastric inflammation. Small amount of abdominal and pelvic free fluid is also present. Note is made of umbilical hernia containing protruding bowel loop without obstruction. Dictated on workstation # [id number] Dict: 07/08/22 0151 Trans: 07/08/22 0520 MAXIM [id number] Interpreted by: LENNOX CUNNINGHAM MD Assessment/Plan Assessment/Plan Assessment/Plan Gastric perforation - probably at GJ anastomosis and due to Chronic NSAID use Chronic renal insufficiency Chronic alcohol abuse h/o RYGB Pt hemodynamically stable, not septic and has no signs of diffuse peritonitis. White count is also lower today so we will keep the pt NPO and observe for now. Discussed with the patient that surgery may be necessary if her symptoms worsen. She actually stated she wanted to go ahead with surgery, but I told her although it is an option; I think waiting and doing the least invasive thing is actually the correct choice. Will monitor her abdominal exam, labs and keep her npo. Most likely will wait until Sunday and do an UGI swallow to see if there is still a leak; if there is she will go to surgery. Supervisory-Addendum Brief Verification & Attestation Participated in pt care: history, MDM, physical Personally performed: exam, history, MDM, supervision of care Care discussed with: Medical Student Procedures: n/a Verification and Attestation of Medical Student E/M Service A medical student performed and documented this service. I then reviewed and verified all information documented by the medical student and made modifications to such information, when appropriate. I personally performed a physical exam, medical decision making and then discussed any differences between the notes and made revisions as necessary to create one note. Lesly Wells , 07/08/22 , 15:21 MACARIO ALSTON Jul 08, 2022 10:21 LESLY WELLS DO Jul 08, 2022 15:10
[2022-07-08] MEDS: THIAMINE INJECTION 100 MG, FOLIC ACID INJECTION 1 MG, MAGNESIUM SULFATE 2 GM, VITAMIN M... IV SCH ×5 (10:59)
[2022-07-08 11:25] VITALS: BP 105/72
--- NOTE | 2022-07-08 11:38 | History & Physical-Hospitalist ---
History of Present Illness HPI/Chief Complaint PT ARRIVES VIA POV FROM HOME STATES AROUND 1800 TONIGHT, SHE WAS STANDING IN THE KITCHEN EATING TOMATOES ON TOAST--TOOK ONLY ONE BITE OF TOMATO, AND HAD SUDDEN SHARP SEVERE STABBING PAIN IN EPIGASTRIC AREA AND PAIN IS ALL OVER HER ENTIRE UPPER ABDOMEN AND ALL OVER HER ENTIRE CHEST AND INTO HER LEFT SHOULDER STATES IT IS NOT STABBING ANYMORE, BUT IS A CONSTANT PAIN THAT IS GETTING WORSE LEFT ARM FELT A LITTLE TINGLY, BUT NOT NOW STATES IT HURTS TO BREATHE, BUT DOES NOT FEEL SHORT OF BREATH PAIN IS MUCH WORSE WITH WALKING OR ANY MOVEMENTS OF ANY KIND + NAUSEA, NO VOMITING + SWEATS "A LITTLE BIT" AND FELT SHAKEY NO DIZZINESS OR SYNCOPE STATES HER HEART WAS BEATING A LITTLE FAST, BUT WAS FEELING VERY ANXIOUS AT THE TIME-NOT OCCURRING NOW. NO SWELLING IN LEGS/ FEET OR PAIN IN [place] HAS HAD CHEST PAINS BEFORE BUT PT STATES SHE WAS TOLD IT WAS FROM ANXIETY. DENIES ANY CARDIAC PROCEDURES OR ANY CARDIAC DIAGNOSES STATES SHE HAS NOT TAKEN ANY OF HER MEDICATIONS FOR 3 DAYS--GIVES NO REASON WHY SHE HAS NOT TAKEN THEM--"JUST HAVEN'T" PT DRINKS UP TO 1/2 PINT OF VODKA "ALMOST EVERY DAY" --"JUST A FEW LITTLE SHOTS THROUGHOUT THE DAY SO I CAN GET MY WORK DONE" STATES SHE "ONLY HAD A COUPLE OF LITTLE SHOTS" OF VODKA TODAY PT HAS HAD MARLENE-EN-Y GASTRIC BYPASS IN 2000 IN [place], WELL CHOLECYSTECTOMY SHE HAS ALSO HAD HYSTERECTOMY/BILATERAL SALPINGO-OOPHORECTOMY AND BACK SURGERY, WELL OTHER ORTHOPEDIC SURGERIES PT LATER STATES THAT SHE TAKES AT LEAST 800 MG OF OVER THE COUNTER IBUPROFEN AT LEAST 4-6 TIMES A DAY EVERY DAY FOR HER CHRONIC GENERALIZED PAIN STATES SHE HAS "LOW KIDNEY FUNCTION" , WELL HTN, FIBROMYALGIA, ARTHRITIS, CHRONIC NECK AND BACK PAIN, AND DEPRESSION/ANXIETY--DOES NOT TAKE PSYCH MEDICATIONS. Upon my arrival patient reports significant reduction in abdominal pain she has had no night sweats chills or fever. She reports no previous history of peptic ulcer disease. Date Seen 07/08/22 Time Seen by a Provider: 09:30 Attending Physician Hilary Johnson MD PCP Admitting Physician: Mercy Valdes MD Attending Physician: Mercy Valdes MD Referring Physician Date of Admission Jul 08, 2022 at 02:10 Home Medications & Allergies Home Medications Reviewed patient Home Medication Reconciliation performed by pharmacy medication reconciliations biological science technician fish and/or nursing. Patients Allergies have been reviewed. Allergies Allergies Coded Allergies metronidazole (Unverified Allergy, Mild, HIVES, 11/01/06) duloxetine (Verified Allergy, Unknown, 01/29/18) ibuprofen (Verified Allergy, Unknown, 01/29/18) pregabalin (Verified Allergy, Unknown, 01/29/18) Past Owfdtyo-Xcqask-Qhaxeb Hx Patient Social History Tobacco Use?: Yes Tobacco type used: Cigarettes Smoking Status: Current Everyday Smoker Smokeless Tobacco Frequency: Never a User Use of E-Cig and/or Vaping dev: No Use of E-Cig and/or Vaping Carlos: Never a User Substance use?: Yes Substance frequency: Daily Alcohol Use?: Yes Alcohol type: Hard Liquor Alcohol Frequency: Daily Pt feels they are or have been: No Immunizations Up To Date Hepatitis A: No Hepatitis B: No Current Status status: No status: No Advance Directives: No Communicates: Verbally Primary Language: [place] Preferred Spoken Language: [place] Is interpretation needed?: No Sensory deficits: Vision impairment, Hearing impairment Implanted or Applied Medical D: Orthopedic hardware Past Medical History Surgeries: Abdominal, Adenoidectomy, Cardiac, Gallbladder, 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, Oophorectomy, Orthopedic, Tonsillectomy Asthma, COPD Currently Using CPAP: No Currently Using BIPAP: No 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, 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: 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, Menopausal Gastroesophageal Reflux, Chronic Constipation Degenerate Disk Disease, Arthritis, Fibromyalgia, Chronic Back Pain, Fractures Tonsilitis Anxiety, Depression Blood Disorders: No PMH: Chronic pain - low back/arthritis Asthma Anxiety Hypertension PSH: Left wrist laceration repair as a child gastric-bypass and lap band surgery Jeff carpal tunnel release L leg fracture repair T&A JACOB/BSO - benign reasons cholecystectomy (at time of gastric bypass) Family Medical History Cancer 03 FATHER Cataract 03 FATHER 03 MOTHER Chest pain 03 FATHER Congestive heart failure 03 FATHER Family history: Arthritis 03 FATHER 03 MOTHER 09 BROTHER Family history: Cardiovascular disease 03 FATHER Family history: Diabetes mellitus 03 FATHER 09 BROTHER Family history: Hypertension 03 FATHER 03 MOTHER 09 BROTHER Family history: Osteoporosis 03 MOTHER 09 BROTHER Headache 03 FATHER 03 MOTHER 09 BROTHER Hearing loss 03 FATHER Heart disease 03 FATHER History of - anemia 09 BROTHER History of - respiratory disease 03 FATHER History of drug abuse 09 BROTHER Hypercholesterolemia 03 FATHER Visual impairment 03 FATHER 03 MOTHER 09 BROTHER No Family History of: Abdominal aortic aneurysm Angelina's disease Alcoholism Aphasia Cancer of colon Congenital heart disease Cystic fibrosis Dementia Dysphagia Family history: Allergy Family history: Alzheimer's disease Family history: Asthma Family history: Breast disease Family history: Coronary thrombosis Family history: Gastrointestinal disease Family history: Glaucoma Family history: Thyroid disorder Hereditary disease History of - disorder Human immunodeficiency virus (HIV) seropositivity Infertile Kidney disease Malignant neoplasm of lung Myocardial infarction Parkinson's disease Prostate cancer Psychotic disorder Seizure disorder Stroke Tuberculosis SOCIAL HISTORY: -SMOKES 1-2 PPD -ETOH--DRINKS UP TO 1/2 PINT OF VODKA EVERY DAY -DRUGS--THC "SOMETIMES" PAST SURGICAL HISTORY: -MARLENE-EN-Y GASTRIC BYPASS 2000 IN [place] -CHOLECYSTECTOMY WITH GASTRIC BYPASS -HYSTERECTOMY/ BILATERAL SALPINGO-OOPHORECTOMY -BACK SURGERY -LEFT LOWER LEG FX/ORIF -BILATERAL CARPAL TUNNEL -TONSILLECTOMY Review of Systems Constitutional: see HPI Physical Exam Physical Exam Vital Signs Vital Signs - First Documented 07/07/22 21:30 Temp 37.0 Pulse 70 Resp 20 B/P (MAP) 130/97 (108) Pulse Ox 98 O2 Delivery Room Air Capillary Refill : Less Than 3 Seconds Height, Weight, BMI Height: 5'9.00" Weight: 184lbs. 0.0oz. [id number]; 34.41 BMI Method:Stated General Appearance: Anxious, Obese HEENT: PERRL/EOMI Respiratory: Chest Non Tender, Lungs Clear, Normal Breath Sounds, No Accessory Muscle Use, No Respiratory Distress Cardiovascular: Regular Rate, Rhythm, No Edema, No Gallop, No JVD, No Murmur, Normal Peripheral Pulses Gastrointestinal: No Organomegaly, Distended, Other (Epigastric pain to palpat ion with guarding) Extremity: Normal Inspection, Normal Range of Motion, Non Tender, No Calf Tenderness, No Pedal Edema Results Results/Procedures Labs Laboratory Tests 07/07/22 21:47 07/08/22 05:43 Patient resulted labs reviewed. Assessment/Plan Admission Diagnosis 1. Gastric perforation suspect peptic ulcer disease as patient has multiple risk factors including alcohol use disorder ibuprofen usage SSRI usage. Discussed the importance of avoidance of all nonsteroidals and aspirin likely endoscopy to follow and consideration for surgery per Dr. Verma currently the patient is stable with decreasing white count. 2. Renal disease which appears to be more chronic and likely aggravated by nonsteroidal therapy another reason the patient needs to avoid nonsteroidals in the past and she admits that she has been told this by other providers. 3. Probable alcohol use disorder will initiate detox protocol. Admission Status: Inpatient Order (span 2 midnights) Reason for Inpatient Admission: see admission diagnosis Clinical Quality Measures AMI/AHF: ASA po Prior to arrival: No MERCY VALDES MD Jul 08, 2022 11:38
[2022-07-08 15:30] VITALS: BP 110/70
[2022-07-08 19:46] VITALS: BP 110/68
[2022-07-08 23:08] VITALS: BP 101/61
[2022-07-09] MEDS ORDERED: cefTRIAXone 1 GM IV (PRE-MIX) 50 ML IV SCH
[2022-07-09] MEDS: D5 1/2 NS W/KCL 20 MEQ/L 1,000 ML IV SCH ×4 (01:11→21:58)
[2022-07-09 03:35] VITALS: BP 125/80
[2022-07-09] MEDS: fentaNYL INJ 100 MCG/2 ML AMP IV PRN ×4 (03:43→22:07)
[2022-07-09 07:33] VITALS: BP 102/57
[2022-07-09] MEDS: PANTOPRAZOLE 40 MG (PROTONIX) VIAL IV SCH ×2 (07:55→19:49)
[2022-07-09 09:35] LABS: BASOPHILS # (AUTO) 0.1 10^3/uL (0.0-0.1); BASOPHILS % (AUTO) 0 % (0-10); EOSINOPHILS # (AUTO) 0.1 10^3/uL (0.0-0.3); EOSINOPHILS % (AUTO) 0 % (0-10); HEMATOCRIT 38 % (35-52); HEMOGLOBIN 12.4 g/dL (11.5-16.0); LYMPHOCYTES # (AUTO) 1.2 10^3/uL (1.0-4.0); LYMPHOCYTES % (AUTO) 8 % (12-44); MEAN CORPUSCULAR HEMOGLOBIN 32 pg (25-34); MEAN CORPUSCULAR HGB CONC 33 g/dL (32-36); MEAN CORPUSCULAR VOLUME 96 fL (80-99); MEAN PLATELET VOLUME 10.3 fL (9.0-12.2); MONOCYTES # (AUTO) 0.6 10^3/uL (0.0-1.0); MONOCYTES % (AUTO) 4 % (0-12); NEUTROPHILS # (AUTO) 12.8 10^3/uL (1.8-7.8); NEUTROPHILS % (AUTO) 87 % (42-75); PLATELET COUNT 221 10^3/uL (130-400); WHITE BLOOD COUNT 14.9 10^3/uL (4.3-11.0)
[2022-07-09] MEDS: THIAMINE INJECTION 100 MG, FOLIC ACID INJECTION 1 MG, MAGNESIUM SULFATE 2 GM, VITAMIN M... IV SCH ×5 (09:36)
--- NOTE | 2022-07-09 09:58 | Progress Note - Surgery ---
MACARIO ALSTON 07/09/22 0958: Subjective Date Seen by a Provider: Jul 09, 2022 Time Seen by a Provider: 08:35 Subjective/Events-last exam Patient reports feeling about the same today. Her abdominal pain has not worsened at all and it still hurts to move too much. She has a bit of a cough which exacerbates the abdominal pain as wel. She had some diarrhea last night but did not notice any blood. Denies any sweats/chills, N/V or palpitations. Review of Systems Pulmonary: No Dyspnea; Cough Cardiovascular: No: Palpitations Gastrointestinal: Abdominal Pain (diffuse, upper quadrants worse); No: Nausea, Vomiting Objective Exam Vital Signs Date Time Temp Pulse Resp B/P (MAP) Pulse Ox O2 Delivery O2 Flow Rate FiO2 07/09/22 08:00 Room Air 07/09/22 07:33 36.6 64 18 102/57 (72) 93 Room Air 07/09/22 07:00 63 07/09/22 03:35 36.4 69 18 125/80 (95) 95 Room Air 07/09/22 01:00 65 07/08/22 23:08 36.2 68 18 101/61 (74) 92 Room Air 07/08/22 20:00 Room Air 07/08/22 19:46 37.2 70 18 110/68 (82) 94 Room Air 07/08/22 19:00 71 07/08/22 15:30 36.5 75 24 110/70 (83) 92 Room Air 07/08/22 12:36 78 07/08/22 11:25 36.4 88 18 105/72 (83) 92 Room Air I & O 07/09/22 07:00 Intake Total 3050 ml Output Total 700 ml Balance 2350 ml Capillary Refill : Less Than 3 Seconds General Appearance: Anxious, Obese HEENT: PERRL/EOMI Neck: Normal Inspection Respiratory: Lungs Clear, Normal Breath Sounds, No Accessory Muscle Use, No Respiratory Distress Cardiovascular: Regular Rate, Rhythm, No Edema, No Murmur Gastrointestinal: soft, abnormal bowel sounds (decreased), guarding (voluntary), tenderness (diffuse, but the worst is subxyphoid. has pain in upper abd when RLQ pressed, LLQ no pain), hernia (large ventral/incisional hernia) Extremity: Normal Inspection, No Pedal Edema Neurologic/Psychiatric: Alert, Oriented x3 Skin: Normal Color, Warm/Dry Results Lab Laboratory Tests 07/09/22 09:25: White Blood Count 14.9H, Red Blood Count 3.94, Hemoglobin 12.4, Hematocrit 38, Mean Corpuscular Volume 96, Mean Corpuscular Hemoglobin 32, Mean Corpuscular Hemoglobin Concent 33, Red Cell Distribution Width 12.7, Platelet Count 221, Mean Platelet Volume 10.3, Immature Granulocyte % (Auto) 1, Neutrophils (%) (Auto) 87H, Lymphocytes (%) (Auto) 8L, Monocytes (%) (Auto) 4, Eosinophils (%) (Auto) 0, Basophils (%) (Auto) 0, Neutrophils # (Auto) 12.8H, Lymphocytes # (Auto) 1.2, Monocytes # (Auto) 0.6, Eosinophils # (Auto) 0.1, Basophils # (Auto) 0.1, Immature Granulocyte # (Auto) 0.1 Microbiology 07/07/22 Urine Culture - Preliminary, Resulted Escherichia coli Assessment/Plan Assessment/Plan Assessment/Plan Gastric perforation - probably at GJ anastomosis and due to Chronic NSAID use Chronic renal insufficiency Chronic alcohol abuse h/o RYGB Pt hemodynamically stable, not septic and still has no signs of diffuse peritonitis. White count did jump to 14.9 today so we will continue abx, add diflucan, keep NPO and order acute abdominal series today to assess for any changes. Discussed with the patient that surgery may be necessary if her symptoms or imaging worsen. She actually stated she wanted to go ahead with surgery, but I told her although it is an option; I think waiting and doing the least invasive thing is actually the correct choice. If acute abdominal series today looks worse, she will go to OR. If series looks same or better we will proceed with gastrographin UGI swallow study tomorrow to see if there is still a leak; if so she will require surgery. Clinical Quality Measures AMI/AHF: ASA po Prior to arrival: MATT Bush DO 07/09/22 1419: Subjective Time Seen by a Provider: 12:57 Subjective/Events-last exam Pt seen and examined, states she is feeling a little better today. Understands why she has to be NPO. Still increased pain with movement. Review of Systems Pulmonary: No Dyspnea; Cough Cardiovascular: No: Palpitations Gastrointestinal: Abdominal Pain (diffuse, upper quadrants worse); No: Nausea, Vomiting Objective Exam General Appearance: Anxious, Obese HEENT: PERRL/EOMI Respiratory: Lungs Clear, Normal Breath Sounds, No Accessory Muscle Use, No Respiratory Distress Cardiovascular: Regular Rate, Rhythm, No Murmur Gastrointestinal: soft, abnormal bowel sounds (decreased), guarding (volun tary), tenderness (diffuse, but the worst is subxyphoid. has pain in upper abd when RLQ pressed, LLQ no pain), hernia (large ventral/incisional hernia) Extremity: No Pedal Edema Neurologic/Psychiatric: Alert, Oriented x3 Skin: Normal Color, Warm/Dry Assessment/Plan Assessment/Plan Assessment/Plan Gastric perforation - probably at GJ anastomosis and due to Chronic NSAID use Chronic renal insufficiency Chronic alcohol abuse h/o RYGB Pt hemodynamically stable, not septic and still has no signs of diffuse peritonitis. White count did jump to 14.9 today so we will continue abx, add diflucan, keep NPO and order acute abdominal series today to assess for any changes. Discussed with the patient that surgery may be necessary if her symptoms or imaging worsen. She actually stated she wanted to go ahead with surgery, but I told her although it is an option; I think waiting and doing the least invasive thing is actually the correct choice. If acute abdominal series today looks worse, she will go to OR. If series looks same or better we will proceed with gastrographin UGI swallow study tomorrow to see if there is still a leak; if so she will require surgery. Supervisory-Addendum Brief Verification & Attestation Participated in pt care: history, MDM, physical Personally performed: exam, history, MDM, supervision of care Care discussed with: Medical Student Procedures: n/a Verification and Attestation of Medical Student E/M Service A medical student performed and documented this service. I then reviewed and verified all information documented by the medical student and made modifications to such information, when appropriate. I personally performed a physical exam, medical decision making and then discussed any differences between the notes and made revisions as necessary to create one note. Matt Wells , 07/09/22 , 14:19 MACARIO ALSTON Jul 09, 2022 09:58 MATT WELLS DO Jul 09, 2022 14:19
[2022-07-09 11:40] VITALS: BP 104/62
--- NOTE | 2022-07-09 12:07 | Progress Note - Hospitalist ---
Subjective HPI/CC On Admission Date Seen by Provider: Jul 09, 2022 Time Seen by Provider: 11:00 PT ARRIVES VIA POV FROM HOME STATES AROUND 1800 TONIGHT, SHE WAS STANDING IN THE KITCHEN EATING TOMATOES ON TOAST--TOOK ONLY ONE BITE OF TOMATO, AND HAD SUDDEN SHARP SEVERE STABBING PAIN IN EPIGASTRIC AREA AND PAIN IS ALL OVER HER ENTIRE UPPER ABDOMEN AND ALL OVER HER ENTIRE CHEST AND INTO HER LEFT SHOULDER STATES IT IS NOT STABBING ANYMORE, BUT IS A CONSTANT PAIN THAT IS GETTING WORSE LEFT ARM FELT A LITTLE TINGLY, BUT NOT NOW STATES IT HURTS TO BREATHE, BUT DOES NOT FEEL SHORT OF BREATH PAIN IS MUCH WORSE WITH WALKING OR ANY MOVEMENTS OF ANY KIND + NAUSEA, NO VOMITING + SWEATS "A LITTLE BIT" AND FELT SHAKEY NO DIZZINESS OR SYNCOPE STATES HER HEART WAS BEATING A LITTLE FAST, BUT WAS FEELING VERY ANXIOUS AT THE TIME-NOT OCCURRING NOW. NO SWELLING IN LEGS/ FEET OR PAIN IN [place] HAS HAD CHEST PAINS BEFORE BUT PT STATES SHE WAS TOLD IT WAS FROM ANXIETY. DENIES ANY CARDIAC PROCEDURES OR ANY CARDIAC DIAGNOSES STATES SHE HAS NOT TAKEN ANY OF HER MEDICATIONS FOR 3 DAYS--GIVES NO REASON WHY SHE HAS NOT TAKEN THEM--"JUST HAVEN'T" PT DRINKS UP TO 1/2 PINT OF VODKA "ALMOST EVERY DAY" --"JUST A FEW LITTLE SHOTS THROUGHOUT THE DAY SO I CAN GET MY WORK DONE" STATES SHE "ONLY HAD A COUPLE OF LITTLE SHOTS" OF VODKA TODAY PT HAS HAD MARLENE-EN-Y GASTRIC BYPASS IN 2000 IN [place], WELL CHOLECYSTECTOMY SHE HAS ALSO HAD HYSTERECTOMY/BILATERAL SALPINGO-OOPHORECTOMY AND BACK SURGERY, WELL OTHER ORTHOPEDIC SURGERIES PT LATER STATES THAT SHE TAKES AT LEAST 800 MG OF OVER THE COUNTER IBUPROFEN AT LEAST 4-6 TIMES A DAY EVERY DAY FOR HER CHRONIC GENERALIZED PAIN STATES SHE HAS "LOW KIDNEY FUNCTION" , WELL HTN, FIBROMYALGIA, ARTHRITIS, CHRONIC NECK AND BACK PAIN, AND DEPRESSION/ANXIETY--DOES NOT TAKE PSYCH MEDICATIONS. Upon my arrival patient reports significant reduction in abdominal pain she has had no night sweats chills or fever. She reports no previous history of peptic ulcer disease. Subjective/Events-last exam Patient denies chills or fever does have some epigastric pain with movement but nothing like she was having when she presented to the emergency room. She reports few loose stools has had no nausea or vomiting. There is been no blood in her stool per patient report and no melena. Objective Exam Vital Signs Vital Signs Date Time Temp Pulse Resp B/P (MAP) Pulse Ox O2 Delivery O2 Flow Rate FiO2 07/09/22 11:40 36.1 66 18 104/62 (76) 92 Room Air Capillary Refill : Less Than 3 Seconds General Appearance: No Apparent Distress Respiratory: Chest Non Tender, Lungs Clear, Normal Breath Sounds, No Accessory Muscle Use, No Respiratory Distress Cardiovascular: Regular Rate, Rhythm, No Edema, No Gallop, No JVD, No Murmur, Normal Peripheral Pulses Gastrointestinal: Other (Mild abdominal distention but the abdomen is soft mild epigastric pain to palpation without rebound or guarding) Results/Procedures Lab Laboratory Tests 07/09/22 09:25 Patient resulted labs reviewed. Assessment/Plan Assessment and Plan Assess & Plan/Chief Complaint 1. Gastric perforation suspect peptic ulcer disease as patient has multiple risk factors including alcohol use disorder ibuprofen usage SSRI usage. Discussed the importance of avoidance of all nonsteroidals and aspirin likely endoscopy to follow and consideration for surgery per Dr. Verma currently the patient is stable.White count was higher today at 14,000 continue conservative management per surgery and n.p.o. status 2. Renal disease which appears to be more chronic and likely aggravated by nonsteroidal therapy another reason the patient needs to avoid nonsteroidals and she admits that she has been told this by other providers. 3. Probable alcohol use disorder will initiate detox protocol. Clinical Quality Measures AMI/AHF: ASA po Prior to arrival: MERCY Walsh MD Jul 09, 2022 12:07
--- NOTE | 2022-07-09 15:08 | Diagnostic Imaging Report ---
EXAMINATION: Abdominal series and chest radiograph. HISTORY: Chest and abdomen pain. COMPARISON: None available. FINDINGS: Lungs clear without edema or pneumonia. There is mild left base atelectasis. There is a small left pleural effusion. No pneumothorax. Heart size is normal. Bowel gas pattern is normal. No free air is seen. There has been spinal fusion. There are cholecystectomy clips. IMPRESSION: 1. Small left pleural effusion with overlying atelectasis. 2. No free air is seen in the abdomen. Dictated by: Dictated on workstation # [id number]
[2022-07-09 15:30] VITALS: BP 97/53
[2022-07-09] MEDS: PIPERACILLIN SODIUM/TAZOBACTAM 4.5 GM in NS (IVPB) 100 ML IV SCH ×3 (17:05→23:16)
[2022-07-09] MEDS: FLUCONAZOLE 100 MG/50 ML 50 ML IV SCH (17:05)
[2022-07-09 20:05] VITALS: BP 102/66
[2022-07-09 23:00] VITALS: BP 106/61
[2022-07-10 03:14] VITALS: BP 114/74
[2022-07-10] MEDS: D5 1/2 NS W/KCL 20 MEQ/L 1,000 ML IV SCH ×4 (04:37→23:24)
[2022-07-10] MEDS: fentaNYL INJ 100 MCG/2 ML AMP IV PRN ×4 (05:34→22:07)
--- NOTE | 2022-07-10 07:37 | Progress Note - Surgery ---
RAFAL ALVAREZ 07/10/22 0737: Subjective Date Seen by a Provider: Jul 10, 2022 Time Seen by a Provider: 07:32 Subjective/Events-last exam Patient resting comfortably. States her abdominal pain has improved today and is just a dull ache that she currently rates 4/10. Notes the pain is mostly lower n ow and that she was able to cut back on pain medicine last night. She has loose stools that are yellow, but non bloody. Denies fever, chills, night sweats, chest pain, or SOB. She is urinating without difficulty. No other complaints at this time. Review of Systems General: No Chills, No Night Sweats Pulmonary: No Dyspnea; Cough (dry, chronic) Cardiovascular: No: Chest Pain, Palpitations Gastrointestinal: Abdominal Pain (diffuse, 4/10); No: Nausea, Vomiting Genitourinary: No Retention Neurological: No: Confusion Objective Exam Vital Signs Date Time Temp Pulse Resp B/P (MAP) Pulse Ox O2 Delivery O2 Flow Rate FiO2 07/10/22 03:14 35.8 63 20 114/74 (87) 95 Room Air 07/10/22 01:00 60 07/09/22 23:00 36.8 63 20 106/61 (76) 94 Room Air 07/09/22 20:05 36.2 62 20 102/66 (78) 95 Room Air 07/09/22 19:50 Room Air 07/09/22 19:00 63 07/09/22 15:30 36.1 65 22 97/53 (68) 93 Room Air 07/09/22 12:52 68 07/09/22 11:40 36.1 66 18 104/62 (76) 92 Room Air 07/09/22 08:00 Room Air 07/09/22 07:33 36.6 64 18 102/57 (72) 93 Room Air I & O 07/10/22 07:00 Intake Total 2250 ml Balance 2250 ml Capillary Refill : Less Than 3 Seconds General Appearance: No Apparent Distress, WD/WN, Obese HEENT: PERRL/EOMI Neck: Normal Inspection, Supple Respiratory: Lungs Clear, Normal Breath Sounds, No Accessory Muscle Use, No Respiratory Distress Cardiovascular: Regular Rate, Rhythm, No Edema, No Murmur, Normal Peripheral Pulses Peripheral Pulses: 2+ Radial Pulses (R), 2+ Radial Pulses (L) Gastrointestinal: soft, abnormal bowel sounds (decreased), guarding (voluntary), tenderness (mild diffuse tenderness to palpation, but mostly in LLQ. ), hernia (large ventral/incisional hernia) Extremity: No Pedal Edema Neurologic/Psychiatric: Alert, Oriented x3 Skin: Normal Color, Warm/Dry Lymphatic: No Adenopathy Results Lab Laboratory Tests 07/09/22 09:25: White Blood Count 14.9H, Red Blood Count 3.94, Hemoglobin 12.4, Hematocrit 38, Mean Corpuscular Volume 96, Mean Corpuscular Hemoglobin 32, Mean Corpuscular Hemoglobin Concent 33, Red Cell Distribution Width 12.7, Platelet Count 221, Mean Platelet Volume 10.3, Immature Granulocyte % (Auto) 1, Neutrophils (%) (Auto) 87H, Lymphocytes (%) (Auto) 8L, Monocytes (%) (Auto) 4, Eosinophils (%) (Auto) 0, Basophils (%) (Auto) 0, Neutrophils # (Auto) 12.8H, Lymphocytes # (A uto) 1.2, Monocytes # (Auto) 0.6, Eosinophils # (Auto) 0.1, Basophils # (Auto) 0.1, Immature Granulocyte # (Auto) 0.1 Microbiology 07/07/22 Urine Culture - Final, Complete Escherichia coli Assessment/Plan Assessment/Plan Assessment/Plan Gastric perforation - probably at GJ anastomosis and due to Chronic NSAID use Chronic renal insufficiency Chronic alcohol abuse h/o RYGB Pt hemodynamically stable, not septic and still has no signs of diffuse peritonitis. White count jumped to 14.9 yesterday, continue abx, added diflucan, keep NPO. White count today has decreased to 10.1. Acute abdominal series yesterday showed no free in abdomen. Yesterday had discussion with the patient that surgery may be necessary if her symptoms or imaging worsen. She actually stated she wanted to go ahead with surgery, but I told her although it is an option; I think waiting and doing the least invasive thing is actually the correct choice. Abdominal series looks better, if she continues to improve will likely forego gastrographin UGI swallow study. Clinical Quality Measures AMI/AHF: ASA po Prior to arrival: MATT Bush DO 07/10/22 1207: Subjective Time Seen by a Provider: 11:39 Subjective/Events-last exam Pt seen and examined, states she is much better today. Main complaint is she is hungry and wants to get back to her cats. Review of Systems General: No Chills, No Night Sweats Pulmonary: No Dyspnea; Cough (dry, chronic) Cardiovascular: No: Chest Pain, Palpitations Gastrointestinal: Abdominal Pain (diffuse, 4/10); No: Nausea, Vomiting Objective Exam General Appearance: No Apparent Distress, Obese HEENT: PERRL/EOMI, Moist Mucous Membranes Respiratory: Lungs Clear, Normal Breath Sounds, No Accessory Muscle Use, No Respiratory Distress Cardiovascular: Regular Rate, Rhythm, No Murmur Gastrointestinal: soft, abnormal bowel sounds (decreased), guarding (voluntary ), tenderness (mostly subxyphoid now, tenderness in RLQ is gone. ) Neurologic/Psychiatric: Alert, Oriented x3 Assessment/Plan Assessment/Plan Assessment/Plan Gastric perforation - probably at GJ anastomosis and due to Chronic NSAID use Chronic renal insufficiency Chronic alcohol abuse h/o RYGB Pt hemodynamically stable, not septic and still has no signs of diffuse peritonitis. White went from 14.9 yesterday to 10.1 today. Acute abdominal series yesterday showed no free air in abdomen. Will do gastrographin UGI swallow study tomorrow am to look for leak. If no leak will start feeding. Continue IV ABX, pain meds and anti-emetics as needed. Pt should ambulate and use IS. Supervisory-Addendum Brief Verification & Attestation Participated in pt care: history, MDM, physical Personally performed: exam, history, MDM, supervision of care Care discussed with: Medical Student Procedures: n/a Verification and Attestation of Medical Student E/M Service A medical student performed and documented this service. I then reviewed and verified all information documented by the medical student and made modifications to such information, when appropriate. I personally performed a physical exam, medical decision making and then discussed any differences between the notes and made revisions as necessary to create one note. Matt Verma , 07/10/22 , 12:07 RAFAL ALVAREZ Jul 10, 2022 07:37 MATT VERMA DO Jul 10, 2022 12:07
[2022-07-10 07:48] VITALS: BP 103/64
[2022-07-10] MEDS: FLUCONAZOLE 100 MG/50 ML 50 ML IV SCH (08:43)
[2022-07-10] MEDS: PANTOPRAZOLE 40 MG (PROTONIX) VIAL IV SCH ×2 (08:43→19:54)
[2022-07-10] MEDS: PIPERACILLIN SODIUM/TAZOBACTAM 4.5 GM in NS (IVPB) 100 ML IV SCH ×3 (08:43→23:24)
[2022-07-10 08:56] LABS: HEMATOCRIT 38 % (35-52); HEMOGLOBIN 12.4 g/dL (11.5-16.0); MEAN CORPUSCULAR HEMOGLOBIN 31 pg (25-34); MEAN CORPUSCULAR HGB CONC 33 g/dL (32-36); MEAN CORPUSCULAR VOLUME 96 fL (80-99); MEAN PLATELET VOLUME 10.4 fL (9.0-12.2); PLATELET COUNT 218 10^3/uL (130-400); WHITE BLOOD COUNT 10.1 10^3/uL (4.3-11.0)
[2022-07-10 09:24] LABS: POTASSIUM 3.8 MMOL/L (3.6-5.0)
[2022-07-10 09:25] LABS: CALCIUM 8.9 MG/DL (8.5-10.1)
[2022-07-10 09:29] LABS: CREATININE SERUM 1.47 MG/DL (0.60-1.30)
--- NOTE | 2022-07-10 10:24 | Progress Note ---
Subjective Subjective/Events-last exam States she is feeling progressively better. Feels weak from not eating. Objective Exam Last Set of Vital Signs Vital Signs Date Time Temp Pulse Resp B/P (MAP) Pulse Ox O2 Delivery O2 Flow Rate FiO2 07/10/22 08:48 Room Air 07/10/22 07:48 35.9 53 14 103/64 (77) 94 Capillary Refill : Less Than 3 Seconds I&O Intake and Output 07/10/22 00:00 Intake Total 3250 ml Output Total 350 ml Balance 2900 ml Intake Oral 0 ml IV Total 3250 ml Output Urine Total 350 ml # Voids 2 # Bowel Movements 2 General: Alert, No Acute Distress Lungs: Clear to Auscultation, Normal Air Movement Heart: Regular Rate Abdomen: Normal Bowel Sounds, Soft Extremities: No Edema Psych/Mental Status: Mood NL Results/Procedures Lab Laboratory Tests 07/10/22 08:30: White Blood Count 10.1, Red Blood Count 3.96, Hemoglobin 12.4, Hematocrit 38, Mean Corpuscular Volume 96, Mean Corpuscular Hemoglobin 31, Mean Corpuscular Hemoglobin Concent 33, Red Cell Distribution Width 12.4, Platelet Count 218, Mean Platelet Volume 10.4, Sodium Level 138, Potassium Level 3.8, Chloride Level 111H, Carbon Dioxide Level 19L, Anion Gap 8, Blood Urea Nitrogen 14, Creatinine 1.47H, Estimat Glomerular Filtration Rate 42, BUN/Creatinine Ratio 10, Glucose Level 122H, Calcium Level 8.9 Microbiology 07/07/22 Urine Culture - Final, Complete Escherichia coli Radiology Date of Exam:07/07/22 CT CHEST/ABDOMEN/PELVIS WO PROCEDURE: CT chest, abdomen, and pelvis without contrast. TECHNIQUE: Multiple contiguous axial images were obtained through the chest, abdomen, and pelvis without the use of intravenous contrast. Auto Exposure Controls were utilized during the CT exam to meet ALARA standards for radiation dose reduction. INDICATION: Toxic substance ingestion There is no evidence of pulmonary consolidation. No dominant mass is identified. Tiny subpleural nodules are seen in both lungs. There is no significant pleural or pericardial fluid. Coronary artery calcifications are present. There is very dense retroareolar breast parenchymal density somewhat greater on the right. IMPRESSION: No acute abnormality seen in the chest. There is asymmetric high density breast parenchyma particularly on the right which could be further assessed with physical examination and screening mammography as indicated. CT abdomen and pelvis: There has been previous cholecystectomy. No focal hepatic, pancreatic, adrenal gland or splenic abnormality is identified. There has been previous surgical resection in the left upper quadrant. There is edema and/or inflammation anterior to the stomach extending to the anterior abdominal wall. In addition, there does appear to be small amount of gas interposed between the stomach and the left lobe of the liver with mild pneumoperitoneum and small amount of perihepatic free fluid. No organized fluid collection is identified. Inflammation extends anteriorly to level of umbilical hernia. Bowel protrudes into the hernia sac, however, there is no evidence of obstruction. No definite adrenal or renal abnormality identified. There is artifact from spinal hardware which obscures portions of the retroperitoneum. There is a mild amount of pelvic free fluid. Unopacified bladder is unremarkable. IMPRESSION: Findings are suggestive of probable gastric perforation with pneumoperitoneum and pre-gastric inflammation. Small amount of abdominal and pelvic free fluid is also present. Note is made of umbilical hernia containing protruding bowel loop without obstruction. Dictated on workstation # [id number] Dict: 07/08/22 0151 Trans: 07/08/22 0520 [id number] [id number] Interpreted by: LENNOX CUNNINGHAM MD Assessment/Plan Assessment/Plan (1) Gastric perforation Status: Acute Assessment & Plan: Suspect secondary to ulcer disease due to chronic NSAID use, smoking, EtOH and SSRI. Stable, IV pantoprazole, monitoring per Surgery. On Zosyn. (2) Chronic renal insufficiency Status: Chronic Qualifiers: Qualified Codes: N18.32 - Chronic kidney disease, stage 3b (3) UTI (urinary tract infection) Status: Acute Assessment & Plan: E coli with no resistance. Qualifiers: (4) Acute renal insufficiency Status: Resolved Assessment & Plan: Acute on chronic, improved with hydration, back to baseline 07/10. (5) Breast mass, right Status: Acute Assessment & Plan: Noted on chest CT, she declines any further work-up and states if it was breast cancer she would not want to know or have treatment. (6) Hypertension Status: Chronic Assessment & Plan: BP normal to low, hold home meds. Qualifiers: Qualified Codes: I10 - Essential (primary) hypertension (7) DVT prophylaxis Status: Acute Assessment & Plan: No pharmacologic due to suspected ulcer/gastric perforation. Clinical Quality Measures AMI/AHF: ASA po Prior to arrival: ASHVIN Patel MD Jul 10, 2022 10:24
[2022-07-10] MEDS ORDERED: MULT-1136 PO (11:56)
[2022-07-10] MEDS ORDERED: MULT-974 PO (11:56)
[2022-07-10] MEDS ORDERED: IBUP-2473 PO (11:57)
[2022-07-10 12:00] VITALS: BP 131/72
[2022-07-10] MEDS: THIAMINE INJECTION 100 MG, FOLIC ACID INJECTION 1 MG, MAGNESIUM SULFATE 2 GM, VITAMIN M... IV SCH ×5 (13:47)
[2022-07-10 16:01] VITALS: BP 116/71
[2022-07-10 19:40] VITALS: BP 110/70
[2022-07-10 23:39] VITALS: BP 102/65
[2022-07-11 03:20] VITALS: BP 111/66
[2022-07-11] MEDS: fentaNYL INJ 100 MCG/2 ML AMP IV PRN ×4 (05:32→20:44)
[2022-07-11] MEDS: D5 1/2 NS W/KCL 20 MEQ/L 1,000 ML IV SCH ×4 (05:32→22:43)
[2022-07-11 06:14] LABS: HEMATOCRIT 38 % (35-52); HEMOGLOBIN 12.4 g/dL (11.5-16.0); MEAN CORPUSCULAR HEMOGLOBIN 31 pg (25-34); MEAN CORPUSCULAR HGB CONC 33 g/dL (32-36); MEAN CORPUSCULAR VOLUME 95 fL (80-99); MEAN PLATELET VOLUME 10.9 fL (9.0-12.2); PLATELET COUNT 247 10^3/uL (130-400); WHITE BLOOD COUNT 8.3 10^3/uL (4.3-11.0)
[2022-07-11 06:18] LABS: POTASSIUM 3.7 MMOL/L (3.6-5.0)
[2022-07-11 06:19] LABS: CALCIUM 9.4 MG/DL (8.5-10.1)
[2022-07-11 06:24] LABS: CREATININE SERUM 1.54 MG/DL (0.60-1.30)
[2022-07-11] MEDS: PIPERACILLIN SODIUM/TAZOBACTAM 4.5 GM in NS (IVPB) 100 ML IV SCH ×2 (08:20→16:14)
[2022-07-11] MEDS: PANTOPRAZOLE 40 MG (PROTONIX) VIAL IV SCH ×2 (08:20→19:54)
[2022-07-11] MEDS: FLUCONAZOLE 100 MG/50 ML 50 ML IV SCH (08:21)
[2022-07-11 08:22] VITALS: BP 115/73
--- NOTE | 2022-07-11 08:39 | Progress Note - Surgery ---
RAFAL ALVAREZ 07/11/22 0839: Subjective Date Seen by a Provider: Jul 11, 2022 Time Seen by a Provider: 08:33 Subjective/Events-last exam Patient resting comfortably. States she had some anxiety last night, but otherwise no problem. Notes her abdominal pain is minimal and is only tender with coughing or too much pressure. She denies fever, chills, N/V, blood in stool, chest pain, and SOB. She is currently NPO and urinating normally. States she is ready to go home. She has no other complaints at this time. Review of Systems General: No Chills, No Night Sweats Pulmonary: No Dyspnea, No Cough Cardiovascular: No: Chest Pain Gastrointestinal: Abdominal Pain (minimal); No: Nausea, Vomiting, Constipation, Melena, Hematochezia Genitourinary: No Retention Neurological: No: Weakness Objective Exam Vital Signs Date Time Temp Pulse Resp B/P (MAP) Pulse Ox O2 Delivery O2 Flow Rate FiO2 07/11/22 07:34 55 07/11/22 03:20 36.5 55 20 111/66 (81) 96 Room Air 07/11/22 01:00 53 07/10/22 23:39 35.9 69 20 102/65 (77) 94 Room Air 07/10/22 20:00 Room Air 07/10/22 19:40 36.0 58 20 110/70 (83) 95 Room Air 07/10/22 19:00 59 07/10/22 16:01 35.8 54 18 116/71 (86) 94 Room Air 07/10/22 12:45 58 07/10/22 12:00 35.9 62 18 131/72 (91) 96 Room Air 07/10/22 08:48 Room Air I & O 07/11/22 07:00 Intake Total 105 ml Balance 105 ml Capillary Refill : Less Than 3 Seconds General Appearance: No Apparent Distress, Obese HEENT: PERRL/EOMI, Moist Mucous Membranes Neck: Non Tender, Supple Respiratory: Lungs Clear, Normal Breath Sounds, No Accessory Muscle Use, No Respiratory Distress Cardiovascular: Regular Rate, Rhythm, No Gallop, No Murmur Peripheral Pulses: 2+ Radial Pulses (R), 2+ Radial Pulses (L) Gastrointestinal: soft, abnormal bowel sounds (decreased); No guarding; tenderness (mostly subxyphoid now, tenderness in RLQ and LLQ is gone. ) Extremity: No Calf Tenderness, No Pedal Edema Neurologic/Psychiatric: Alert, Oriented x3, Other (mildly anxious and ready to go home. ) Skin: Normal Color, Warm/Dry Lymphatic: No Adenopathy (no adenopathy of supraclavicular LNs) Results Lab Laboratory Tests 07/11/22 05:46: White Blood Count 8.3, Red Blood Count 3.96, Hemoglobin 12.4, Hematocrit 38, Mean Corpuscular Volume 95, Mean Corpuscular Hemoglobin 31, Mean Corpuscular Hemoglobin Concent 33, Red Cell Distribution Width 12.1, Platelet Count 247, Mean Platelet Volume 10.9, Sodium Level 139, Potassium Level 3.7, Chloride Level 110H, Carbon Dioxide Level 19L, Anion Gap 10, Blood Urea Nitrogen 11, Creatinine 1.54H, Estimat Glomerular Filtration Rate 40, BUN/Creatinine Ratio 7, Glucose Level 113H, Calcium Level 9.4 Microbiology 07/07/22 Urine Culture - Final, Complete Escherichia coli Assessment/Plan Assessment/Plan Assessment/Plan Gastric perforation - probably at GJ anastomosis and due to Chronic NSAID use Chronic renal insufficiency Chronic alcohol abuse h/o RYGB Pt hemodynamically stable, not septic and still has no signs of diffuse peritonitis. White count continues to trend downward, 8.3 today. Acute abdominal series yesterday showed no free air in abdomen. Gastrographin UGI swallow study showed moderate gastric perforation with formation of fluid pocket anterior to the stomach, plan to take her to the OR tomorrow. Discussed risks and benefits, obtained consent and remain NPO. Continue IV ABX, pain meds and anti-emetics as needed. Pt should ambulate and use IS. Clinical Quality Measures AMI/AHF: ASA po Prior to arrival: MATT Bush DO 07/11/222120: Subjective Time Seen by a Provider: 11:00 (Pt seen while rounding on other pts, not sure exact time) Subjective/Events-last exam Pt seen and examined, had not yet had UGI to check for leak. She had no complaints, just wanted to be able to eat and go home. Review of Systems General: No Chills, No Night Sweats Pulmonary: No Dyspnea, No Cough Cardiovascular: No: Chest Pain Gastrointestinal: Abdominal Pain (minimal); No: Nausea, Vomiting Objective Exam General Appearance: No Apparent Distress, Obese HEENT: PERRL/EOMI, Moist Mucous Membranes Respiratory: Lungs Clear, Normal Breath Sounds, No Accessory Muscle Use, No Respiratory Distress Cardiovascular: Regular Rate, Rhythm, No Murmur Gastrointestinal: soft, abnormal bowel sounds (decreased); No guarding; tenderness (mostly subxyphoid now, tenderness in RLQ and LLQ is gone. ) Neurologic/Psychiatric: Alert, Oriented x3 Results Radiology Date of Exam:07/11/22 CT ABDOMEN/PELVIS WO PROCEDURE: CT abdomen and pelvis without contrast. TECHNIQUE: Multiple contiguous axial images were obtained through the abdomen and pelvis without the use of intravenous contrast. Auto Exposure Controls were utilized during the CT exam to meet ALARA standards for radiation dose reduction. INDICATION: Pneumoperitoneum on recent CT from 07/07/2022. Patient is status post Gastrografin upper GI. The study is performed to evaluate for extravasation of contrast and a potential site of hollow viscus perforation. FINDINGS: Lung bases are clear of acute infiltrates. There appears to be contrast outside the lumen of the stomach, anteriorly, between the left lobe of the liver and the stomach. Extraluminal contrast extends inferiorly and in the left paramidline location. There appears to be a focal hole within the stomach along the right wall, anteriorly and superiorly. There is good opacification of the small bowel loops. No obstruction is seen. No significant free fluid is seen. Bladder, pancreas, spleen, adrenal glands and kidneys are stable. Midline fat-containing umbilical hernia is noted. Bladder is decompressed. IMPRESSION: Findings consistent with hollow viscus perforation with contrast extravasating from the gastric wall, as described. Results were discussed with Dr. Wells prior to this dictation. Dictated by: Dictated on workstation # [id number] Dict: 07/11/22 1340 Trans: 07/11/22 1720 [id number] [id number] Interpreted by: YAYO CUMMINS MD Electronically signed by: YAYO CUMMINS MD 07/11/22 9421 Assessment/Plan Assessment/Plan Assessment/Plan Gastric perforation - probably at GJ anastomosis and due to Chronic NSAID use (confirmed by CT) Chronic renal insufficiency Chronic alcohol abuse h/o RYGB Pt hemodynamically stable, not septic and still has no signs of diffuse peritonitis. Gastrographin UGI swallow study showed moderate gastric perforation with formation of fluid pocket anterior to the stomach, plan to take her to the OR tomorrow. Discussed risks and benefits, obtained consent and remain NPO. Continue IV ABX, pain meds and anti-emetics as needed. Pt should ambulate and use IS. Will get consent for Laparoscopic possible open repair of gastric-jejunal perforation and all other indicated procedures. All questions answered to her satisfaction. Supervisory-Addendum Brief Verification & Attestation Participated in pt care: history, MDM, physical Personally performed: exam, history, MDM, supervision of care Care discussed with: Medical Student Procedures: n/a Verification and Attestation of Medical Student E/M Service A medical student performed and documented this service. I then reviewed and verified all information documented by the medical student and made modifications to such information, when appropriate. I personally performed a physical exam, medical decision making and then discussed any differences between the notes and made revisions as necessary to create one note. Matt Wells , 07/11/22 , 21:21 RAFAL ALVAREZ Jul 11, 2022 08:39 MATT WELLS DO Jul 11, 2022 21:21
[2022-07-11 11:28] VITALS: BP 120/75
[2022-07-11] MEDS ORDERED: DIATRIZOATE MEGLUM/SODIUM 37% 120 ML (GASTROGRAFIN) NG ONE (13:30)
--- NOTE | 2022-07-11 13:51 | Diagnostic Imaging Report ---
PROCEDURE: CT abdomen and pelvis without contrast. TECHNIQUE: Multiple contiguous axial images were obtained through the abdomen and pelvis without the use of intravenous contrast. Auto Exposure Controls were utilized during the CT exam to meet ALARA standards for radiation dose reduction. INDICATION: Pneumoperitoneum on recent CT from 07/07/2022. Patient is status post Gastrografin upper GI. The study is performed to evaluate for extravasation of contrast and a potential site of hollow viscus perforation. FINDINGS: Lung bases are clear of acute infiltrates. There appears to be contrast outside the lumen of the stomach, anteriorly, between the left lobe of the liver and the stomach. Extraluminal contrast extends inferiorly and in the left paramidline location. There appears to be a focal hole within the stomach along the right wall, anteriorly and superiorly. There is good opacification of the small bowel loops. No obstruction is seen. No significant free fluid is seen. Bladder, pancreas, spleen, adrenal glands and kidneys are stable. Midline fat-containing umbilical hernia is noted. Bladder is decompressed. IMPRESSION: Findings consistent with hollow viscus perforation with contrast extravasating from the gastric wall, as described. Results were discussed with Dr. Verma prior to this dictation. Dictated by: Dictated on workstation # [id number]
--- NOTE | 2022-07-11 15:07 | Diagnostic Imaging Report ---
INDICATION: Pneumoperitoneum on recent CT. Patient has had prior gastric bypass surgery. TECHNIQUE: Patient ingested a mixture of Gastrografin contrast and water and imaging over the lower chest and abdomen was performed. A total of 1.5 minutes of fluoroscopic time was utilized. FINDINGS: Preliminary radiograph is unremarkable. The distal esophagus has a smooth contour. No esophageal obstruction is seen. There is prompt emptying into the gastric remnant with emptying into the small bowel. There appears to be some puddling of contrast both along the medial and lateral margins of the gastric remnant which may be extraluminal. This appears to arise from the upper portion of the stomach, medial wall. IMPRESSION: There are findings suggestive of gastric perforation with extravasation of oral contrast. Patient will be sent to CT for post upper GI CT study for better characterization. Dictated by: Dictated on workstation # [id number]
[2022-07-11 15:47] VITALS: BP 134/83
[2022-07-11 19:05] VITALS: BP 133/74
--- NOTE | 2022-07-11 21:05 | Progress Note ---
Subjective Subjective/Events-last exam Pt states she is feeling okay, when I saw her she had just gotten her results from testing and reports she is going to have surgery in the morning and she is feeling okay about this. Objective Exam Last Set of Vital Signs Vital Signs Date Time Temp Pulse Resp B/P (MAP) Pulse Ox O2 Delivery O2 Flow Rate FiO2 07/11/22 19:05 36.2 51 16 133/74 (93) 99 Room Air Capillary Refill : Less Than 3 Seconds I&O Intake and Output 07/11/22 00:00 Intake Total 105 ml Balance 105 ml Intake Oral 0 ml IV Total 105 ml # Voids 5 # Bowel Movements 1 General: Alert, No Acute Distress Lungs: Other (no increased work of breathing) Abdomen: Soft Psych/Mental Status: Mood NL Results/Procedures Lab Laboratory Tests 07/11/22 05:46: White Blood Count 8.3, Red Blood Count 3.96, Hemoglobin 12.4, Hematocrit 38, Mean Corpuscular Volume 95, Mean Corpuscular Hemoglobin 31, Mean Corpuscular Hemoglobin Concent 33, Red Cell Distribution Width 12.1, Platelet Count 247, Mean Platelet Volume 10.9, Sodium Level 139, Potassium Level 3.7, Chloride Level 110H, Carbon Dioxide Level 19L, Anion Gap 10, Blood Urea Nitrogen 11, Creatinine 1.54H, Estimat Glomerular Filtration Rate 40, BUN/Creatinine Ratio 7, Glucose Level 113H, Calcium Level 9.4 Microbiology 07/07/22 Urine Culture - Final, Complete Escherichia coli Radiology Date of Exam:07/07/22 CT CHEST/ABDOMEN/PELVIS WO PROCEDURE: CT chest, abdomen, and pelvis without contrast. TECHNIQUE: Multiple contiguous axial images were obtained through the chest, abdomen, and pelvis without the use of intravenous contrast. Auto Exposure Controls were utilized during the CT exam to meet ALARA standards for radiation dose reduction. INDICATION: Toxic substance ingestion There is no evidence of pulmonary consolidation. No dominant mass is identified. Tiny subpleural nodules are seen in both lungs. There is no significant pleural or pericardial fluid. Coronary artery calcifications are present. There is very dense retroareolar breast parenchymal density somewhat greater on the right. IMPRESSION: No acute abnormality seen in the chest. There is asymmetric high density breast parenchyma particularly on the right which could be further assessed with physical examination and screening mammography as indicated. CT abdomen and pelvis: There has been previous cholecystectomy. No focal hepatic, pancreatic, adrenal gland or splenic abnormality is identified. There has been previous surgical resection in the left upper quadrant. There is edema and/or inflammation anterior to the stomach extending to the anterior abdominal wall. In addition, there does appear to be small amount of gas interposed between the stomach and the left lobe of the liver with mild pneumoperitoneum and small amount of perihepatic free fluid. No organized fluid collection is identified. Inflammation extends anteriorly to level of umbilical hernia. Bowel protrudes into the hernia sac, however, there is no evidence of obstruction. No definite adrenal or renal abnormality identified. There is artifact from spinal hardware which obscures portions of the retroperitoneum. There is a mild amount of pelvic free fluid. Unopacified bladder is unremarkable. IMPRESSION: Findings are suggestive of probable gastric perforation with pneumoperitoneum and pre-gastric inflammation. Small amount of abdominal and pelvic free fluid is also present. Note is made of umbilical hernia containing protruding bowel loop without obstruction. Dictated on workstation # [id number] Dict: 07/08/22 0151 Trans: 07/08/22 0520 [facility] [id number] Interpreted by: LENNOX CUNNINGHAM MD Assessment/Plan Assessment/Plan (1) Gastric perforation Status: Acute Assessment & Plan: Suspect secondary to ulcer disease due to chronic NSAID use, smoking, EtOH and SSRI. Stable, IV pantoprazole, monitoring per Surgery. On Zosyn. 07/11 repeat imaging showing persistent perforation, plan for surgery in the am per patient report. (2) Chronic renal insufficiency Status: Chronic Qualifiers: Qualified Codes: N18.32 - Chronic kidney disease, stage 3b (3) UTI (urinary tract infection) Status: Acute Assessment & Plan: E coli with no resistance. Qualifiers: (4) Acute renal insufficiency Status: Resolved Assessment & Plan: Acute on chronic, improved with hydration, back to baseline 07/10. (5) Breast mass, right Status: Acute Assessment & Plan: Noted on chest CT, she declines any further work-up and states if it was breast cancer she would not want to know or have treatment. (6) Hypertension Status: Chronic Assessment & Plan: BP normal to low, hold home meds. Qualifiers: Qualified Codes: I10 - Essential (primary) hypertension (7) DVT prophylaxis Status: Acute Assessment & Plan: No pharmacologic due to suspected ulcer/gastric perforation. Clinical Quality Measures AMI/AHF: ASA po Prior to arrival: No ARMANDO,ASHVIN N MD Jul 11, 2022 21:05
[2022-07-12] VITALS (15 sets, daily range): BP systolic 106–136; BP diastolic 65–90
[2022-07-12] MEDS: PIPERACILLIN SODIUM/TAZOBACTAM 4.5 GM in NS (IVPB) 100 ML IV SCH ×4 (00:08→23:57)
[2022-07-12] MEDS: fentaNYL INJ 100 MCG/2 ML AMP IV PRN ×3 (03:10→20:28)
[2022-07-12 05:32] LABS: HEMATOCRIT 35 % (35-52); HEMOGLOBIN 11.6 g/dL (11.5-16.0); MEAN CORPUSCULAR HEMOGLOBIN 31 pg (25-34); MEAN CORPUSCULAR HGB CONC 33 g/dL (32-36); MEAN CORPUSCULAR VOLUME 94 fL (80-99); PLATELET COUNT 266 10^3/uL (130-400); WHITE BLOOD COUNT 7.3 10^3/uL (4.3-11.0)
[2022-07-12] MEDS: D5 1/2 NS W/KCL 20 MEQ/L 1,000 ML IV SCH ×3 (05:39→23:57)
[2022-07-12 05:53] LABS: POTASSIUM 4.4 MMOL/L (3.6-5.0)
[2022-07-12 05:54] LABS: CALCIUM 9.4 MG/DL (8.5-10.1)
[2022-07-12 05:59] LABS: CREATININE SERUM 1.42 MG/DL (0.60-1.30)
[2022-07-12] MEDS: PANTOPRAZOLE 40 MG (PROTONIX) VIAL IV SCH ×2 (07:34→20:27)
[2022-07-12] MEDS: FLUCONAZOLE 100 MG/50 ML 50 ML IV SCH (07:34)
--- NOTE | 2022-07-12 10:21 | Progress Note ---
Subjective Subjective/Events-last exam Pt states her right hip is really bothering her, has pain that initially started in low back and radiates through hip and down leg with burning pain and sometimes itching and numbness on outer thigh. She is wondering what her options are for pain treatment since she can't take ibuprofen. Objective Exam Last Set of Vital Signs Vital Signs Date Time Temp Pulse Resp B/P (MAP) Pulse Ox O2 Delivery O2 Flow Rate FiO2 07/12/22 07:52 36.8 49 16 133/82 (99) 97 Room Air Capillary Refill : Less Than 3 Seconds I&O Intake and Output 07/12/22 00:00 Intake Total 1000 ml Balance 1000 ml Intake Oral 0 ml IV Total 1000 ml # Voids 4 # Bowel Movements 1 General: Alert, No Acute Distress Lungs: Clear to Auscultation Heart: Regular Rate Abdomen: Normal Bowel Sounds, Soft, No Tenderness Neuro: Normal Speech Psych/Mental Status: Mental Status NL Results/Procedures Lab Laboratory Tests 07/12/22 04:45: White Blood Count 7.3, Red Blood Count 3.73L, Hemoglobin 11.6, Hematocrit 35, Mean Corpuscular Volume 94, Mean Corpuscular Hemoglobin 31, Mean Corpuscular Hemoglobin Concent 33, Red Cell Distribution Width 12.1, Platelet Count 266, Mean Platelet Volume 11.0, Sodium Level 140, Potassium Level 4.4, Chloride Level 113H, Carbon Dioxide Level 18L, Anion Gap 9, Blood Urea Nitrogen 8, Creatinine 1.42H, Estimat Glomerular Filtration Rate 44, BUN/Creatinine Ratio 6, Glucose Level 143H, Calcium Level 9.4 Microbiology 07/07/22 Urine Culture - Final, Complete Escherichia coli Radiology Date of Exam:07/07/22 CT CHEST/ABDOMEN/PELVIS WO PROCEDURE: CT chest, abdomen, and pelvis without contrast. TECHNIQUE: Multiple contiguous axial images were obtained through the chest, abdomen, and pelvis without the use of intravenous contrast. Auto Exposure Controls were utilized during the CT exam to meet ALARA standards for radiation dose reduction. INDICATION: Toxic substance ingestion There is no evidence of pulmonary consolidation. No dominant mass is identified. Tiny subpleural nodules are seen in both lungs. There is no significant pleural or pericardial fluid. Coronary artery calcifications are present. There is very dense retroareolar breast parenchymal density somewhat greater on the right. IMPRESSION: No acute abnormality seen in the chest. There is asymmetric high density breast parenchyma particularly on the right which could be further assessed with physical examination and screening mammography as indicated. CT abdomen and pelvis: There has been previous cholecystectomy. No focal hepatic, pancreatic, adrenal gland or splenic abnormality is identified. There has been previous surgical resection in the left upper quadrant. There is edema and/or inflammation anterior to the stomach extending to the anterior abdominal wall. In addition, there does appear to be small amount of gas interposed between the stomach and the left lobe of the liver with mild pneumoperitoneum and small amount of perihepatic free fluid. No organized fluid collection is identified. Inflammation extends anteriorly to level of umbilical hernia. Bowel protrudes into the hernia sac, however, there is no evidence of obstruction. No definite adrenal or renal abnormality identified. There is artifact from spinal hardware which obscures portions of the retroperitoneum. There is a mild amount of pelvic free fluid. Unopacified bladder is unremarkable. IMPRESSION: Findings are suggestive of probable gastric perforation with pneumoperitoneum and pre-gastric inflammation. Small amount of abdominal and pelvic free fluid is also present. Note is made of umbilical hernia containing protruding bowel loop without obstruction. Dictated on workstation # [id number] Dict: 07/08/22 0151 Trans: 07/08/22 0520 [id number] [id number] Interpreted by: LENNOX CUNNINGHAM MD Assessment/Plan Assessment/Plan (1) Gastric perforation Status: Acute Assessment & Plan: Suspect secondary to ulcer disease due to chronic NSAID use, smoking, EtOH and SSRI. Stable, IV pantoprazole, monitoring per Surgery. On Zosyn. 07/11 repeat imaging showing persistent perforation, plan for surgery in the am per patient report. 07/12 to OR today (2) Chronic renal insufficiency Status: Chronic Qualifiers: Qualified Codes: N18.32 - Chronic kidney disease, stage 3b (3) UTI (urinary tract infection) Status: Acute Assessment & Plan: E coli with no resistance. On Zosyn for gastric perforation. Qualifiers: (4) Acute renal insufficiency Status: Resolved Assessment & Plan: Acute on chronic, improved with hydration, back to baseline 07/10. (5) Breast mass, right Status: Acute Assessment & Plan: Noted on chest CT, she declines any further work-up and states if it was breast cancer she would not want to know or have treatment. (6) Hypertension Status: Chronic Assessment & Plan: BP normal to low, hold home meds. Qualifiers: Qualified Codes: I10 - Essential (primary) hypertension (7) Sciatica Status: Chronic Assessment & Plan: Will try gabapentin. Has taken amitryptiline at home but for sleep, and she has trouble tolerating much dose of it due to drowsiness. Qualifiers: Qualified Codes: M54.31 - Sciatica, right side (8) DVT prophylaxis Status: Acute Assessment & Plan: No pharmacologic due to suspected ulcer/gastric perforation. Clinical Quality Measures AMI/AHF: ASA po Prior to arrival: ASHVIN Patel MD Jul 12, 2022 10:21
[2022-07-12] MEDS ORDERED: SUCCINYLCHOLINE INJ 100 MG/5 ML SYR/VIAL ONE (11:14)
[2022-07-12] MEDS ORDERED: MIDAZOLAM 2 MG/2 ML (VERSED) VIAL ONE (11:14)
[2022-07-12] MEDS ORDERED: proPOfol 200 MG/20 ML (DIPRIVAN) VIAL IV ONE ×2 (11:14→12:19)
[2022-07-12] MEDS ORDERED: LIDOCAINE PF 2% 5 ML (XYLOCAINE) VIAL ONE (11:14)
[2022-07-12] MEDS ORDERED: ROCURONIUM 50 MG/5 ML (ZEMURON) VIAL IV ONE (11:14)
[2022-07-12] MEDS ORDERED: fentaNYL INJ 100 MCG/2 ML AMP ONE (11:15)
[2022-07-12] MEDS: LACTATED RINGERS 1,000 ML IV PRN ×4 (11:18→14:04)
[2022-07-12] MEDS ORDERED: LIDOCAINE/EPI 2% 1:200,00 (XYLOCAINE) 20 ML VIAL ONE (11:35)
[2022-07-12] MEDS ORDERED: GLYCOPYRROLATE 0.2 MG/ML (ROBINUL) 2 ML VIAL ONE ×2 (12:07→13:32)
[2022-07-12] MEDS ORDERED: HYDROmorphone 2 MG/ML VIAL (DILAUDID) ONE (12:16)
[2022-07-12] MEDS: GABAPENTIN 100 MG (NEURONTIN) CAP PO SCH ×2 (13:11→21:33)
[2022-07-12] MEDS ORDERED: NEOSTIGMINE (BLOXIVERZ ) 1 MG/1ML 10 ML VIAL ONE (13:32)
[2022-07-12] MEDS ORDERED: SEVOFLURANE (ULTANE) 15 ML INHAL SOLN ONE (13:45)
--- NOTE | 2022-07-12 13:47 | Progress Note-Post Operative ---
Post-Operative Progess Note Surgeon (s)/Construction Or Leak [employer] Laborer (s) Surgeon LESLY WELLS DO Construction Or Leak Gang Laborer: Nazario Pre-Operative Diagnosis Gastric-Jejunal perf with abscess Post-Operative Diagnosis same Procedure & Operative Findings Date of Procedure 07/12/22 Procedure Performed/Findings 1) Laparoscopic Modified Win Patch 2) EGJ with positioning of NGT Anesthesia Type GET Estimated Blood Loss Estimated blood loss (mL): scant Specimens/Packing Specimens Removed none LESLY WELLS DO Jul 12, 2022 13:47
[2022-07-12] MEDS ORDERED: morphine INJ 10 MG/ML 1ML (SYR OR VIAL) IVP ONE (14:00)
[2022-07-12] MEDS ORDERED: fentaNYL INJ 100 MCG/2 ML AMP IVP ONE (14:00)
[2022-07-12] MEDS ORDERED: ONDANSETRON 4 MG/2 ML (SDV) Z0FRAN IVP PRN (14:00)
[2022-07-12] MEDS ORDERED: morphine INJ 10 MG/ML 1ML (SYR OR VIAL) ONE (14:00)
[2022-07-12] MEDS ORDERED: HYDROmorphone 2 MG/ML VIAL (DILAUDID) IV ONE (14:00)
[2022-07-12] MEDS ORDERED: MEPERIDINE (DEMEROL) INJ 50 MG/ML IVP ONE (14:00)
[2022-07-12] MEDS ORDERED: PROMETHAZINE INJ 25 MG/ML (PHENERGAN) AMP IVP ONE (14:00)
[2022-07-12] MEDS ORDERED: GABAPENTIN 100 MG (NEURONTIN) CAP PO SCH (21:00)
[2022-07-13] MEDS: fentaNYL INJ 100 MCG/2 ML AMP IV PRN ×6 (00:23→22:03)
[2022-07-13 03:35] VITALS: BP 130/84
[2022-07-13 05:59] LABS: HEMATOCRIT 36 % (35-52); MEAN CORPUSCULAR HEMOGLOBIN 31 pg (25-34); MEAN CORPUSCULAR HGB CONC 33 g/dL (32-36); MEAN CORPUSCULAR VOLUME 94 fL (80-99); MEAN PLATELET VOLUME 10.5 fL (9.0-12.2); PLATELET COUNT 293 10^3/uL (130-400); WHITE BLOOD COUNT 13.8 10^3/uL (4.3-11.0)
[2022-07-13 06:10] LABS: POTASSIUM 4.6 MMOL/L (3.6-5.0)
[2022-07-13 06:11] LABS: CALCIUM 9.2 MG/DL (8.5-10.1)
[2022-07-13 06:16] LABS: CREATININE SERUM 1.6 MG/DL (0.60-1.30)
[2022-07-13] MEDS: D5 1/2 NS W/KCL 20 MEQ/L 1,000 ML IV SCH ×4 (06:46→23:16)
[2022-07-13 07:37] VITALS: BP 151/83
--- NOTE | 2022-07-13 07:44 | Progress Note - Surgery ---
RAFAL ALVAREZ 07/13/22 0744: Subjective Date Seen by a Provider: Jul 13, 2022 Time Seen by a Provider: 07:38 Subjective/Events-last exam Pt is resting comfortably, s/p laproscopic repair of gastric-jejunal perforation. States she is feeling good with her pain well controlled. She had 25 ml of drainage from the LULY drain, with surrounding tenderness. She has not passed any gas or had a bowel movement since the surgery. She is urinating appropriately. She denies fever, chills, N/V/D, abdominal pain, or any other complaints at this time. Review of Systems General: No Chills, No Night Sweats HEENT: No Visual Changes Pulmonary: No Cough Cardiovascular: No: Chest Pain Gastrointestinal: No: Nausea, Vomiting, Abdominal Pain Genitourinary: No Retention Objective Exam Vital Signs Date Time Temp Pulse Resp B/P (MAP) Pulse Ox O2 Delivery O2 Flow Rate FiO2 07/13/22 07:00 72 07/13/22 03:35 36.8 72 18 130/84 (99) 93 Room Air 07/13/22 01:00 67 07/12/22 23:08 35.8 68 18 136/81 (99) 94 Room Air 07/12/22 20:30 Room Air 07/12/22 19:22 35.6 65 18 128/86 (100) 94 Room Air 07/12/22 19:00 72 07/12/22 16:00 36.8 62 16 116/73 (87) 98 Room Air 07/12/22 15:00 35.6 62 18 134/79 (97) Room Air 07/12/22 14:55 36.6 20 110/65 (80) 98 Nasal Cannula 3.00 07/12/22 14:55 Nasal Cannula 3.00 07/12/22 14:50 20 111/65 (80) 98 Nasal Cannula 3.00 07/12/22 14:45 Nasal Cannula 3.00 07/12/22 14:40 20 112/65 (81) 98 Nasal Cannula 3.00 07/12/22 14:30 OxyMask 5.00 07/12/22 14:30 20 124/77 (93) 96 OxyMask 5.00 07/12/22 14:20 20 120/72 (88) 99 OxyMask 5.00 07/12/22 14:15 OxyMask 5.00 07/12/22 14:10 20 117/70 (86) 98 OxyMask 5.00 07/12/22 14:00 OxyMask 5.00 07/12/22 14:00 20 124/69 (87) 100 OxyMask 5.00 07/12/22 13:51 36.6 20 132/90 (104) 100 OxyMask 5.00 07/12/22 13:51 OxyMask 5.00 07/12/22 08:00 Room Air 07/12/22 07:52 36.8 49 16 133/82 (99) 97 Room Air I & O 07/13/22 07:00 Intake Total 3000 ml Output Total 1525 ml Balance 1475 ml Capillary Refill : Less Than 3 SecondsLess Than 3 Seconds General Appearance: No Apparent Distress, Obese HEENT: PERRL/EOMI, Moist Mucous Membranes Neck: Non Tender, Supple Respiratory: Lungs Clear, Normal Breath Sounds, No Accessory Muscle Use, No Respiratory Distress Cardiovascular: Regular Rate, Rhythm, No Gallop, No Murmur Peripheral Pulses: 2+ Radial Pulses (R), 2+ Radial Pulses (L) Gastrointestinal: soft, abnormal bowel sounds (decreased); No guarding; tenderness (tenderness surrounding LULY drain), other (LULY drain in place with 25 ml of serosanguinous drainage. NG tube in place. ) Extremity: No Calf Tenderness, No Pedal Edema Neurologic/Psychiatric: Alert, Oriented x3 Skin: Normal Color, Warm/Dry Lymphatic: No Adenopathy (no adenopathy of supraclavicular LNs) Results Lab Laboratory Tests 07/13/22 05:52: White Blood Count 13.8H, Red Blood Count 3.83, Hemoglobin 12.0, Hematocrit 36, Mean Corpuscular Volume 94, Mean Corpuscular Hemoglobin 31, Mean Corpuscular Hemoglobin Concent 33, Red Cell Distribution Width 12.0, Platelet Count 293, Mean Platelet Volume 10.5, Sodium Level 141, Potassium Level 4.6, Chloride Level 113H, Carbon Dioxide Level 18L, Anion Gap 10, Blood Urea Nitrogen 9, Creatinine 1.60H, Estimat Glomerular Filtration Rate 38, BUN/Creatinine Ratio 6, Glucose Level 138H, Calcium Level 9.2 Microbiology 07/07/22 Urine Culture - Final, Complete Escherichia coli Assessment/Plan Assessment/Plan Assessment/Plan Gastric perforation - at GJ anastomosis and due to Chronic NSAID use (confirmed by CT) Chronic renal insufficiency Chronic alcohol abuse h/o RYGB Pt s/p laproscopic repair of gastric-jejunal perforation. Pain well controlled. LULY drain, with minimal surrounding tenderness. NG tube in place, tolerating well. Will start a clear diet. Clinical Quality Measures AMI/AHF: ASA po Prior to arrival: No LESLY VERMA DO 07/13/22 1104: Subjective Time Seen by a Provider: 10:17 Subjective/Events-last exam Pt seen and examined, resting very comfortably. Had nausea when she had increase output from NGT but zofran helped. Review of Systems General: No Chills, No Night Sweats Pulmonary: No Cough Cardiovascular: No: Chest Pain Gastrointestinal: Nausea, Abdominal Pain (minimal); No: Vomiting Objective Exam General Appearance: No Apparent Distress, Obese HEENT: PERRL/EOMI, Moist Mucous Membranes Respiratory: Lungs Clear, Normal Breath Sounds, No Accessory Muscle Use, No Respiratory Distress Cardiovascular: Regular Rate, Rhythm, No Murmur Gastrointestinal: soft, abnormal bowel sounds (decreased); No guarding; tenderness (tenderness surrounding LULY drain), other (LULY drain in place with 25 ml of serosanguinous drainage. NG tube in place. incisions c/d/i) Assessment/Plan Assessment/Plan Assessment/Plan S/P Laparoscopic Modified Win patch for Gastric perforation Chronic renal insufficiency Chronic alcohol abuse h/o RYGB Pain well controlled. LULY drain, with minimal surrounding tenderness. NG tube in place, tolerating well. NPO for at least 4-5 days. Supervisory-Addendum Brief Verification & Attestation Participated in pt care: history, MDM, physical Personally performed: exam, history, MDM, supervision of care Care discussed with: Medical Student Procedures: n/a Verification and Attestation of Medical Student E/M Service A medical student performed and documented this service. I then reviewed and verified all information documented by the medical student and made modifications to such information, when appropriate. I personally performed a physical exam, medical decision making and then discussed any differences between the notes and made revisions as necessary to create one note. Lesly Verma , 07/13/22 , 11:04 RAFAL ALVAREZ Jul 13, 2022 07:44 LESLY VERMA DO Jul 13, 2022 11:04
[2022-07-13] MEDS: PIPERACILLIN SODIUM/TAZOBACTAM 4.5 GM in NS (IVPB) 100 ML IV SCH ×3 (07:56→23:16)
[2022-07-13] MEDS: PANTOPRAZOLE 40 MG (PROTONIX) VIAL IV SCH ×2 (08:58→20:01)
[2022-07-13] MEDS: FLUCONAZOLE 100 MG/50 ML 50 ML IV SCH (08:59)
[2022-07-13] MEDS: GABAPENTIN 100 MG (NEURONTIN) CAP PO SCH ×3 (09:00→20:02)
--- NOTE | 2022-07-13 10:26 | Anesthesia-General Post-Op ---
General Patient Condition Mental Status/LOC: Same as Preop Cardiovascular: Satisfactory Nausea/Vomiting: Absent Respiratory: Satisfactory Pain: Controlled Complications: Absent Post Op Complications Complications None Follow Up Care/Instructions Patient Instructions None needed. Anesthesia/Patient Condition Patient Condition Patient is doing well, no complaints, stable vital signs, no apparent adverse anesthesia problems. No complications reported per nursing. LACI MADERA CRNA Jul 13, 2022 10:26
[2022-07-13 11:40] VITALS: BP 128/79
--- NOTE | 2022-07-13 13:03 | Progress Note ---
Subjective Subjective/Events-last exam States she is feeling pretty well post-surgery. Still having hip and shoulder pain. Objective Exam Last Set of Vital Signs Vital Signs Date Time Temp Pulse Resp B/P (MAP) Pulse Ox O2 Delivery O2 Flow Rate FiO2 07/13/22 11:40 36.4 62 16 128/79 (95) 95 Room Air 07/12/22 14:55 3.00 Capillary Refill : Less Than 3 SecondsLess Than 3 Seconds I&O Intake and Output 07/13/22 00:00 Intake Total 3000 ml Output Total 755 ml Balance 2245 ml Intake Oral 0 ml IV Total 3000 ml Output Urine Total 675 ml Drainage Total 80 ml # Voids 3 General: Alert, No Acute Distress Lungs: Clear to Auscultation, Normal Air Movement Heart: Regular Rate Abdomen: Normal Bowel Sounds, Soft, No Tenderness, Other (jose drain present with sanguinous drainage, NG tube with dark green output) Extremities: No Edema Neuro: Normal Speech Psych/Mental Status: Mood NL Results/Procedures Lab Laboratory Tests 07/13/22 05:52: White Blood Count 13.8H, Red Blood Count 3.83, Hemoglobin 12.0, Hematocrit 36, Mean Corpuscular Volume 94, Mean Corpuscular Hemoglobin 31, Mean Corpuscular Hemoglobin Concent 33, Red Cell Distribution Width 12.0, Platelet Count 293, Mean Platelet Volume 10.5, Sodium Level 141, Potassium Level 4.6, Chloride Level 113H, Carbon Dioxide Level 18L, Anion Gap 10, Blood Urea Nitrogen 9, Creatinine 1.60H, Estimat Glomerular Filtration Rate 38, BUN/Creatinine Ratio 6, Glucose Level 138H, Calcium Level 9.2 Microbiology 07/07/22 Urine Culture - Final, Complete Escherichia coli Radiology Date of Exam:07/07/22 CT CHEST/ABDOMEN/PELVIS WO PROCEDURE: CT chest, abdomen, and pelvis without contrast. TECHNIQUE: Multiple contiguous axial images were obtained through the chest, abdomen, and pelvis without the use of intravenous contrast. Auto Exposure Controls were utilized during the CT exam to meet ALARA standards for radiation dose reduction. INDICATION: Toxic substance ingestion There is no evidence of pulmonary consolidation. No dominant mass is identified. Tiny subpleural nodules are seen in both lungs. There is no significant pleural or pericardial fluid. Coronary artery calcifications are present. There is very dense retroareolar breast parenchymal density somewhat greater on the right. IMPRESSION: No acute abnormality seen in the chest. There is asymmetric high density breast parenchyma particularly on the right which could be further assessed with physical examination and screening mammography as indicated. CT abdomen and pelvis: There has been previous cholecystectomy. No focal hepatic, pancreatic, adrenal gland or splenic abnormality is identified. There has been previous surgical resection in the left upper quadrant. There is edema and/or inflammation anterior to the stomach extending to the anterior abdominal wall. In addition, there does appear to be small amount of gas interposed between the stomach and the left lobe of the liver with mild pneumoperitoneum and small amount of perihepatic free fluid. No organized fluid collection is identified. Inflammation extends anteriorly to level of umbilical hernia. Bowel protrudes into the hernia sac, however, there is no evidence of obstruction. No definite adrenal or renal abnormality identified. There is artifact from spinal hardware which obscures portions of the retroperitoneum. There is a mild amount of pelvic free fluid. Unopacified bladder is unremarkable. IMPRESSION: Findings are suggestive of probable gastric perforation with pneumoperitoneum and pre-gastric inflammation. Small amount of abdominal and pelvic free fluid is also present. Note is made of umbilical hernia containing protruding bowel loop without obstruction. Dictated on workstation # [id number] Dict: 07/08/22 0151 Trans: 07/08/22 0520 [id number] Interpreted by: LENNOX CUNNINGHAM MD Assessment/Plan Assessment/Plan (1) Gastric perforation Status: Acute Assessment & Plan: Suspect secondary to ulcer disease due to chronic NSAID use, smoking, EtOH and SSRI. Stable, IV pantoprazole, monitoring per Surgery. On Z osyn. 07/11 repeat imaging showing persistent perforation, plan for surgery in the am per patient report. 07/12 to OR today 07/13 post-op day 1 from modified Win patch, appreciate Surg recommendations. (2) Chronic renal insufficiency Status: Chronic Qualifiers: Qualified Codes: N18.32 - Chronic kidney disease, stage 3b (3) UTI (urinary tract infection) Status: Acute Assessment & Plan: E coli with no resistance. On Zosyn for gastric perforation. Qualifiers: (4) Acute renal insufficiency Status: Resolved Assessment & Plan: Acute on chronic, improved with hydration, back to baseline 07/10. (5) Breast mass, right Status: Acute Assessment & Plan: Noted on chest CT, she declines any further work-up and states if it was breast cancer she would not want to know or have treatment. (6) Hypertension Status: Chronic Assessment & Plan: BP normal to low, hold home meds. Qualifiers: Qualified Codes: I10 - Essential (primary) hypertension (7) Sciatica Status: Chronic Assessment & Plan: Will try gabapentin. Has taken amitryptiline at home but for sleep, and she has trouble tolerating much dose of it due to drowsiness. Qualifiers: Qualified Codes: M54.31 - Sciatica, right side (8) DVT prophylaxis Status: Acute Assessment & Plan: No pharmacologic due to suspected ulcer/gastric perforation. Clinical Quality Measures AMI/AHF: ASA po Prior to arrival: ASHVIN Patel MD Jul 13, 2022 13:03
[2022-07-13 16:53] VITALS: BP 136/85
[2022-07-13 20:02] VITALS: BP 140/81
--- NOTE | 2022-07-13 22:35 | OPERATIVE REPORT ---
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 Incarcerated ventral incisional hernia. 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 Incarcerated ventral incisional hernia. PROCEDURES: 1. Laparoscopic modified Win patch. 2. EGD with placement of NG tube. SURGEON: Matt Verma DO PEN RIDER: Dev Lange DO. ANESTHESIA: General endotracheal tube. SPECIMENS: None. BLOOD LOSS: Scant. FLUIDS: Per anesthesia. POSTOPERATIVE CONDITION: Stable. INDICATION FOR PROCEDURE: The patient is a 56-year-old female who had initially come in with some very small amount of pneumoperitoneum. We kept her n.p.o. and then did an upper GI swallow study with CAT scan and unfortunately found a large leak. FINDINGS: The patient had a large hole somewhere at the GJ junction was found. We also found the abscess, suctioned this out and repaired it. PROCEDURE NOTE: After informed consent was obtained, the patient was brought to the operating room, placed on the table in the supine position. She was sterilely prepped and draped in normal fashion. I started, made the incision above the umbilicus, first infiltrated the skin with local and made an incision with #11 blade, carried down through the skin and subcutaneous tissue, then deepened down to subcutaneous tissue with Bovie electrocautery, able to palpate down, I could feel her hernia and some hernia contents. Carefully got into the abdomen, placed 11 mm trocar port and then placed two 5 mm ports in the left upper quadrant using local lidocaine, 11 blade for stab incision and VersaStep system, all done under direct visualization. I then using these ports and a 5 mm camera, took the adhesions down to get the hernia contents out of the hernia, placed another working 5 mm port in the right upper quadrant using local lidocaine, 11 blade for stab incision and VersaStep system, all done under direct visualization. Once we had gotten hernia contents down, we were then able to carefully move free the omentum away from the falciform ligament and then able to get into the abscess cavity, saw good rind and there was some purulent fluid, took a picture and suctioned all this out, irrigated and then suctioned this out and then continued freeing up along under the liver until we were able to get up to the GJ junction and we could see a hole. There was actual bubbles coming out. At this point, we elected to do a modified Win patch. Using LigaSure, came across the falciform ligament to free this up, so we will be able to pull the falciform ligament and then free it up the omentum off of the transverse colon and then cut vertically through the omentum to be able to bring this portion of omentum falciform ligament up into the upper portion of the abdomen so that we could use this as a Win patch plug. At this point, I then placed 0 Vicryl suture into the abdomen and then able to get a good bite of the portion of the gastric remnant where this hole was, a good through and through bite and then tied down the omentum with a suture. This looked like it was in good position and I broke scrub, went above and performed an EGD, pushing down through, did not see an ulcer, but did see some inflammation and actually could see from the inside there was no leaking coming from this area into the abdomen, could see the light on the inside of the abdomen as well. At this point, then placed an NG tube down and watched it go in and passed this the repair. This was then taped in place by the anesthesiologist. I then removed the EGD scope. I scrubbed back in and helped Dr. Lange place the LULY drain under the liver. I sutured this in place with 2-0 nylon suture. The patient was then placed supine and removed all ports under direct visualization, allowed pneumoperitoneum to escape, closed the supraumbilical incision, closing the fascia with 0 Vicryl figure-of-8 suture. I then copiously irrigated incisions and closed the incisions with nakul. The area was cleaned and dried. Dressing was placed and the bulb suction hooked up to the LULY drain. The patient tolerated the procedure. She was transferred to recovery room in stable condition. Sponge, instrument and needle count correct at the end of the case. Dr. Lange assisted on this case helping to make incisions, close incisions, identify anatomy, hold anatomy out of the way and helped with the Win patch. Job ID: [id number] DocumentID: [id number] Dictated Date: 07/13/2022 13:41:34 Board Finisher Date: 07/13/2022 22:34:37 Dictated By: DO JONH BARRETT
[2022-07-14] VITALS: BP 139/81
[2022-07-14] MEDS: fentaNYL INJ 100 MCG/2 ML AMP IV PRN ×2 (03:44→08:26)
[2022-07-14 04:04] VITALS: BP 153/95
[2022-07-14 06:08] LABS: HEMATOCRIT 36 % (35-52); HEMOGLOBIN 11.9 g/dL (11.5-16.0); MEAN CORPUSCULAR HEMOGLOBIN 32 pg (25-34); MEAN CORPUSCULAR HGB CONC 33 g/dL (32-36); MEAN CORPUSCULAR VOLUME 95 fL (80-99); MEAN PLATELET VOLUME 10.3 fL (9.0-12.2); PLATELET COUNT 319 10^3/uL (130-400); WHITE BLOOD COUNT 10.8 10^3/uL (4.3-11.0)
[2022-07-14 06:31] LABS: POTASSIUM 4.1 MMOL/L (3.6-5.0)
[2022-07-14 06:32] LABS: CALCIUM 9.4 MG/DL (8.5-10.1)
[2022-07-14 06:34] LABS: TOTAL PROTEIN 6.2 GM/DL (6.4-8.2)
[2022-07-14 06:35] LABS: BILIRUBIN,TOTAL 0.2 MG/DL (0.1-1.0)
[2022-07-14 06:37] LABS: CREATININE SERUM 1.64 MG/DL (0.60-1.30)
[2022-07-14] MEDS: D5 1/2 NS W/KCL 20 MEQ/L 1,000 ML IV SCH ×3 (07:17→20:56)
[2022-07-14 07:39] VITALS: BP 149/91
[2022-07-14] MEDS: GABAPENTIN 100 MG (NEURONTIN) CAP PO SCH ×3 (07:44→20:49)
[2022-07-14] MEDS: FLUCONAZOLE 100 MG/50 ML 50 ML IV SCH (08:02)
[2022-07-14] MEDS: PIPERACILLIN SODIUM/TAZOBACTAM 4.5 GM in NS (IVPB) 100 ML IV SCH ×3 (08:02→23:52)
[2022-07-14] MEDS: PANTOPRAZOLE 40 MG (PROTONIX) VIAL IV SCH ×2 (08:02→20:55)
--- NOTE | 2022-07-14 10:20 | Progress Note - Surgery ---
RAFAL ALVAREZ 07/14/22 1020: Subjective Date Seen by a Provider: Jul 14, 2022 Time Seen by a Provider: 10:15 Subjective/Events-last exam Pt resting comfortably in bed. States she is feeling better, but still has some pain surrounding the LULY drain. She notes her right hip hurts due to the way she has to lay. States she has not passed gas or had a bowel movement. She denies abdominal pain, N/V, chest pain and SOB. She was not able to ambulate yesterday, but is going to attempt to today. There is some drainage from her LULY drain and she has output from NG tube. Review of Systems General: No Chills, No Night Sweats HEENT: No Eye Pain Pulmonary: No Cough Cardiovascular: No: Chest Pain Gastrointestinal: No: Nausea, Vomiting, Abdominal Pain Genitourinary: No Retention Musculoskeletal: leg pain (minimal right hip pain) Neurological: No: Confusion Objective Exam Vital Signs Date Time Temp Pulse Resp B/P (MAP) Pulse Ox O2 Delivery O2 Flow Rate FiO2 07/14/22 07:39 36.6 51 18 149/91 (110) 93 Room Air 07/14/22 07:00 55 07/14/22 04:04 36.1 54 16 153/95 (114) 95 Room Air 07/14/22 01:00 54 07/14/22 00:00 36.0 58 16 139/81 (100) 95 Room Air 07/13/22 20:05 Room Air 07/13/22 20:02 36.8 58 20 140/81 (100) 96 Room Air 07/13/22 19:00 53 07/13/22 16:53 36.4 59 18 136/85 (102) 94 Room Air 07/13/22 13:00 60 07/13/22 11:40 36.4 62 16 128/79 (95) 95 Room Air I & O 07/14/22 07:00 Intake Total 3250 ml Output Total 3870 ml Balance -620 ml Capillary Refill : Less Than 3 SecondsLess Than 3 Seconds General Appearance: No Apparent Distress, Obese HEENT: PERRL/EOMI, Moist Mucous Membranes Neck: Non Tender, Supple Respiratory: Lungs Clear, Normal Breath Sounds, No Accessory Muscle Use, No Respiratory Distress Cardiovascular: Regular Rate, Rhythm, No Gallop, No Murmur Peripheral Pulses: 2+ Radial Pulses (R), 2+ Radial Pulses (L) Gastrointestinal: soft, abnormal bowel sounds (decreased); No guarding; tenderness (tenderness surrounding LULY drain), other (LULY drain in place with 50 ml of serosanguinous drainage. NG tube in place. incisions c/d/i) Extremity: No Calf Tenderness, Pedal Edema (very mild pedal edema) Neurologic/Psychiatric: Alert, Oriented x3 Skin: Normal Color, Warm/Dry Lymphatic: No Adenopathy (no adenopathy of supraclavicular LNs) Results Lab Laboratory Tests 07/14/22 05:53: White Blood Count 10.8, Red Blood Count 3.76L, Hemoglobin 11.9, Hematocrit 36, Mean Corpuscular Volume 95, Mean Corpuscular Hemoglobin 32, Mean Corpuscular Hemoglobin Concent 33, Red Cell Distribution Width 12.2, Platelet Count 319, Mean Platelet Volume 10.3, Sodium Level 144, Potassium Level 4.1, Chloride Level 113H, Carbon Dioxide Level 18L, Anion Gap 13, Blood Urea Nitrogen 9, Creatinine 1.64H, Estimat Glomerular Filtration Rate 37, BUN/Creatinine Ratio 5, Glucose Level 116H, Calcium Level 9.4, Corrected Calcium 10.2H, Total Bilirubin 0.2, Aspartate Amino Transf (AST/SGOT) 14, Alanine Aminotransferase (ALT/SGPT) 38, Alkaline Phosphatase 123, Total Protein 6.2L, Albumin 3.0L Microbiology 07/07/22 Urine Culture - Final, Complete Escherichia coli Assessment/Plan Assessment/Plan Assessment/Plan S/P Laparoscopic Modified Win patch for Gastric perforation Chronic renal insufficiency Chronic alcohol abuse h/o RYGB Pain well controlled. LULY drain, with minimal surrounding tenderness. NG tube in place, tolerating well. NPO for at least 4-5 days. Will have pt ambulate today and continue IS. Clinical Quality Measures AMI/AHF: ASA po Prior to arrival: LESLY Bush DO 07/14/22 1451: Subjective Time Seen by a Provider: 14:36 Subjective/Events-last exam Pt seen and examined, states not much abdominal pain it is really her hip and back. Denied N/V has very minimal abd pain. Review of Systems General: No Chills, No Night Sweats Pulmonary: No Cough Cardiovascular: No: Chest Pain Gastrointestinal: Abdominal Pain; No: Nausea, Vomiting Musculoskeletal: back pain, leg pain (minimal right hip pain) Objective Exam General Appearance: No Apparent Distress, Obese HEENT: Moist Mucous Membranes Respiratory: Lungs Clear, Normal Breath Sounds, No Accessory Muscle Use, No Res piratory Distress Cardiovascular: Regular Rate, Rhythm, No Murmur Gastrointestinal: soft, abnormal bowel sounds (decreased); No guarding; tenderness (tenderness surrounding LULY drain), other (LULY drain in place with 50 ml of serosanguinous drainage. NG tube in place. incisions c/d/i) Assessment/Plan Assessment/Plan Assessment/Plan S/P Laparoscopic Modified Win patch for Gastric perforation POD #2 Chronic renal insufficiency Chronic alcohol abuse h/o RYGB Pain well controlled. LULY drain, with minimal surrounding tenderness. NG tube in place, tolerating well. NPO for at least 4-5 days. Told pt she must ambulate today and continue IS. Supervisory-Addendum Brief Verification & Attestation Participated in pt care: history, MDM, physical Personally performed: exam, history, MDM, supervision of care Care discussed with: Medical Student Procedures: n/a Verification and Attestation of Medical Student E/M Service A medical student performed and documented this service. I then reviewed and verified all information documented by the medical student and made modifications to such information, when appropriate. I personally performed a physical exam, medical decision making and then discussed any differences between the notes and made revisions as necessary to create one note. Lesly Verma , 07/14/22 , 14:51 RAFAL ALVAREZ Jul 14, 2022 10:20 LESLY VERMA DO Jul 14, 2022 14:51
--- NOTE | 2022-07-14 11:13 | Physical Therapy Evaluation ---
PT Evaluation-General Medical Diagnosis Admission Date Jul 08, 2022 at 02:10 Medical Diagnosis: gastric perforation/UTI Onset Date: Jul 08, 2022 Therapy Diagnosis Therapy Diagnosis: generalized weakness/debility Height/Weight Height (Feet): 5 Height (Inches): 9.00 Weight (Pounds): 184 Weight (Ounces): 0.0 Precautions Precautions/Isolations: Fall Prevention, Standard Precautions Referral Physician: Bayron Reason for Referral: Evaluation/Treatment Medical History Pertinent Medical History: COPD, HTN, Smoking Additional Medical History gastric bypass Current History ER secondary to abdominal pain Reviewed History: Yes Social History Home: Single Level Current Living Status: Alone Prior Prior Level of Function SCALE: Activities may be completed with or without assistive devices. 5-Srjceppwjd-wfngjrb completes the activity by him/herself with no assistance from a helper. 5-Set-up or Clean-up Assistance-helper sets up or cleans up; patient completes activity. Ethel assists only prior to or following the activity. 4-Supervision or Touching Assistance-helper provides verbal cues and/or touching/steadying and/or contact guard assistance as patient completes activity. Assistance may be provided throughout the activity or intermittently. 3-Partial/Moderate Assistance-helper does LESS THAN HALF the effort. Ethel lifts, holds or supports trunk or limbs, but provides less than half the effort. 2-Substantial/Maximal Assistance-helper does MORE THAN HALF the effort. Ethel lifts or holds trunk or limbs and provides more than half the effort. 6-Rgvgxhehl-tyqskf does ALL the effort. Patient does none of the effort to complete the activity. Or, the assistance of 2 or more helpers is required for the patient to complete the activity. If activity was not attempted, code reason: 7-Patient Refused. 9-Not Applicable-not attempted and the patient did not perform the activity before the current illness, exacerbation or injury. 10-Not Attempted due to Environmental Limitations-(lack of equipment, weather restraints, etc.). 88-Not Attempted due to Medical Conditions or Safety Concerns. Bed Mobility: 6 Transfers (B,C,W/C): 6 Gait: 6 Stairs: 6 Indoor Mobility (Ambulation): Independent Stairs: Independent Prior Devices Use: None PT Evaluation-Current Subjective Patient agrees to PT. Pain Numeric Pain Scale: 5-Moderate Pain Location: Right Location Body Site: Hip Pain Description: Chronic Objective Patient Orientation: Normal For Age Attachments: NG Tube, Drains, IV ROM/Strength ROM Lower Extremities bilateral LE WFL Strength Lower Extremities 4/5 grossly bilateral LE Integumentary/Posture Integumentary refer to nursing notes Bowel Incontinence: No Bladder Incontinence: No Neuromuscular (Tone, Coordination, Reflexes) grossly intact Sensory Vision: Functional Hearing: Functional Transfers Roll Left to Right (QC): 6 Lying to Sitting/Side of Bed(Q: 6 Sit to Stand (QC): 6 Chair/Pdu-lf-Twlsk Xfer(QC): 6 Gait Does the Patient Walk?: Yes Mode of Locomotion: Walk Anticipated Mode of Locomotion: Walk Walk 10 feet (QC): 6 Walk 50 ft with 2 Turns(QC): 6 Walk 150 ft (QC): 6 Distance: 250' Gait Assistive Device: FWW Comments/Gait Description FWW to relieve abdominal pressure Balance Sitting Static: Normal Sitting Dynamic: Normal Standing Static: Normal Standing Dynamic: Normal Assessment/Needs Patient tolerated evaluation and and is to ambulate with nursing staff PRN. No skilled PT indicated. Rehab Potential: Fair PT Plan Treatment/Plan Treatment Plan: Discontinue PT Treatment Duration: Jul 14, 2022 Frequency: 1 time per week Estimated Hrs Per Day: .25 hour per day Patient and/or Family Agrees t: Yes Time/GCodes Time In: 1015 Time Out: 1030 Total Billed Treatment Time: 15 Total Billed Treatment 1 visit EVModC 15 min HO DE LEON PT Jul 14, 2022 11:13
[2022-07-14 11:39] VITALS: BP 155/84
--- NOTE | 2022-07-14 12:41 | Progress Note ---
Subjective Subjective/Events-last exam Afebrile, has NG in place, has not passed gas yet. Objective Exam Last Set of Vital Signs Vital Signs Date Time Temp Pulse Resp B/P (MAP) Pulse Ox O2 Delivery O2 Flow Rate FiO2 07/14/22 11:39 35.9 55 18 155/84 (107) 97 Room Air 07/12/22 14:55 3.00 Capillary Refill : Less Than 3 SecondsLess Than 3 Seconds I&O Intake and Output0 07/14/22 00:00 Intake Total 3250 ml Output Total 2570 ml Balance 680 ml Intake Oral 0 ml IV Total 3250 ml Output Urine Total 2350 ml Drainage Total 70 ml Other 150 ml General: Alert, No Acute Distress Lungs: Clear to Auscultation, Normal Air Movement Heart: Regular Rate, No Murmurs Abdomen: Other (LULY drain in place with sanguinous drainage, incisions c/d/i, mild ttp diffusely) Extremities: No Edema Neuro: Normal Speech Results/Procedures Lab Laboratory Tests 07/14/22 05:53: White Blood Count 10.8, Red Blood Count 3.76L, Hemoglobin 11.9, Hematocrit 36, Mean Corpuscular Volume 95, Mean Corpuscular Hemoglobin 32, Mean Corpuscular Hemoglobin Concent 33, Red Cell Distribution Width 12.2, Platelet Count 319, Mean Platelet Volume 10.3, Sodium Level 144, Potassium Level 4.1, Chloride Level 113H, Carbon Dioxide Level 18L, Anion Gap 13, Blood Urea Nitrogen 9, Creatinine 1.64H, Estimat Glomerular Filtration Rate 37, BUN/Creatinine Ratio 5, Glucose Level 116H, Calcium Level 9.4, Corrected Calcium 10.2H, Total Bilirubin 0.2, Aspartate Amino Transf (AST/SGOT) 14, Alanine Aminotransferase (ALT/SGPT) 38, Alkaline Phosphatase 123, Total Protein 6.2L, Albumin 3.0L Microbiology 07/07/22 Urine Culture - Final, Complete Escherichia coli Radiology Date of Exam:07/07/22 CT CHEST/ABDOMEN/PELVIS WO PROCEDURE: CT chest, abdomen, and pelvis without contrast. TECHNIQUE: Multiple contiguous axial images were obtained through the chest, abdomen, and pelvis without the use of intravenous contrast. Auto Exposure Controls were utilized during the CT exam to meet ALARA standards for radiation dose reduction. INDICATION: Toxic substance ingestion There is no evidence of pulmonary consolidation. No dominant mass is identified. Tiny subpleural nodules are seen in both lungs. There is no significant pleural or pericardial fluid. Coronary artery calcifications are present. There is very dense retroareolar breast parenchymal density somewhat greater on the right. IMPRESSION: No acute abnormality seen in the chest. There is asymmetric high density breast parenchyma particularly on the right which could be further assessed with physical examination and screening mammography as indicated. CT abdomen and pelvis: There has been previous cholecystectomy. No focal hepatic, pancreatic, adrenal gland or splenic abnormality is identified. There has been previous surgical resection in the left upper quadrant. There is edema and/or inflammation anterior to the stomach extending to the anterior abdominal wall. In addition, there does appear to be small amount of gas interposed between the stomach and the left lobe of the liver with mild pneumoperitoneum and small amount of perihepatic free fluid. No organized fluid collection is identified. Inflammation extends anteriorly to level of umbilical hernia. Bowel protrudes into the hernia sac, however, there is no evidence of obstruction. No definite adrenal or renal abnormality identified. There is artifact from spinal hardware which obscures portions of the retroperitoneum. There is a mild amount of pelvic free fluid. Unopacified bladder is unremarkable. IMPRESSION: Findings are suggestive of probable gastric perforation with pneumoperitoneum and pre-gastric inflammation. Small amount of abdominal and pelvic free fluid is also present. Note is made of umbilical hernia containing protruding bowel loop without obstruction. Dictated on workstation # [id number] Dict: 07/08/22 0151 Trans: 07/08/22 0520 MAXIM [id number] Interpreted by: LENNOX CUNNINGHAM MD Assessment/Plan Assessment/Plan (1) Gastric perforation Status: Acute Assessment & Plan: Suspect secondary to ulcer disease due to chronic NSAID use, smoking, EtOH and SSRI. Stable, IV pantoprazole, monitoring per Surgery. On Zosyn. 07/11 repeat imaging showing persistent perforation, plan for surgery in the am per patient report. 07/12 to OR today 07/13 post-op day 1 from modified Win patch, appreciate Surg recommendations. 07/14 post-op day 2, NG still in place, awaiting bowel function, planning to walk today (2) Chronic renal insufficiency Status: Chronic Qualifiers: Qualified Codes: N18.32 - Chronic kidney disease, stage 3b (3) UTI (urinary tract infection) Status: Acute Assessment & Plan: E coli with no resistance. On Zosyn for gastric perforation. Qualifiers: (4) Acute renal insufficiency Status: Resolved Assessment & Plan: Acute on chronic, improved with hydration, back to baseline 07/10. (5) Breast mass, right Status: Acute Assessment & Plan: Noted on chest CT, she declines any further work-up and states if it was breast cancer she would not want to know or have treatment. (6) Hypertension Status: Chronic Assessment & Plan: BP normal to low, hold home meds. Qualifiers: Qualified Codes: I10 - Essential (primary) hypertension (7) Sciatica Status: Chronic Assessment & Plan: Will try gabapentin. Has taken amitryptiline at home but for sleep, and she has trouble tolerating much dose of it due to drowsiness. Qualifiers: Qualified Codes: M54.31 - Sciatica, right side Clinical Quality Measures AMI/AHF: ASA po Prior to arrival: ASHVIN Patel MD Jul 14, 2022 12:41
[2022-07-14] MEDS: morphine INJ 4 MG/ML 1 ML (VIAL/SYRINGE) IVP PRN ×4 (15:28→23:51)
[2022-07-14 16:28] VITALS: BP 152/93
[2022-07-14 20:38] VITALS: BP 144/99
[2022-07-15] VITALS (7 sets, daily range): BP systolic 145–169; BP diastolic 75–95
[2022-07-15] MEDS: D5 1/2 NS W/KCL 20 MEQ/L 1,000 ML IV SCH ×4 (04:06→23:02)
[2022-07-15] MEDS: morphine INJ 4 MG/ML 1 ML (VIAL/SYRINGE) IVP PRN ×6 (05:14→20:41)
[2022-07-15 06:10] LABS: ALBUMIN 2.8 GM/DL (3.2-4.5); POTASSIUM 4.6 MMOL/L (3.6-5.0)
[2022-07-15 06:11] LABS: CALCIUM 8.9 MG/DL (8.5-10.1)
[2022-07-15 06:14] LABS: BILIRUBIN,TOTAL 0.3 MG/DL (0.1-1.0)
[2022-07-15 06:16] LABS: CREATININE SERUM 1.53 MG/DL (0.60-1.30)
[2022-07-15 07:19] LABS: BASOPHILS # (AUTO) 0.1 10^3/uL (0.0-0.1); BASOPHILS % (AUTO) 1 % (0-10); EOSINOPHILS # (AUTO) 0.2 10^3/uL (0.0-0.3); EOSINOPHILS % (AUTO) 2 % (0-10); HEMATOCRIT 35 % (35-52); HEMOGLOBIN 11.8 g/dL (11.5-16.0); LYMPHOCYTES # (AUTO) 1.8 10^3/uL (1.0-4.0); LYMPHOCYTES % (AUTO) 21 % (12-44); MEAN CORPUSCULAR HEMOGLOBIN 32 pg (25-34); MEAN CORPUSCULAR HGB CONC 34 g/dL (32-36); MEAN CORPUSCULAR VOLUME 94 fL (80-99); MEAN PLATELET VOLUME 10.7 fL (9.0-12.2); MONOCYTES # (AUTO) 0.7 10^3/uL (0.0-1.0); MONOCYTES % (AUTO) 8 % (0-12); NEUTROPHILS # (AUTO) 5.7 10^3/uL (1.8-7.8); NEUTROPHILS % (AUTO) 67 % (42-75); PLATELET COUNT 326 10^3/uL (130-400); WHITE BLOOD COUNT 8.5 10^3/uL (4.3-11.0)
[2022-07-15] MEDS: PIPERACILLIN SODIUM/TAZOBACTAM 4.5 GM in NS (IVPB) 100 ML IV SCH ×3 (07:39→23:02)
--- NOTE | 2022-07-15 07:44 | Progress Note - Hospitalist ---
Subjective HPI/CC On Admission Date Seen by Provider: Jul 15, 2022 Time Seen by Provider: 06:00 PT ARRIVES VIA POV FROM HOME STATES AROUND 1800 TONIGHT, SHE WAS STANDING IN THE KITCHEN EATING TOMATOES ON TOAST--TOOK ONLY ONE BITE OF TOMATO, AND HAD SUDDEN SHARP SEVERE STABBING PAIN IN EPIGASTRIC AREA AND PAIN IS ALL OVER HER ENTIRE UPPER ABDOMEN AND ALL OVER HER ENTIRE CHEST AND INTO HER LEFT SHOULDER STATES IT IS NOT STABBING ANYMORE, BUT IS A CONSTANT PAIN THAT IS GETTING WORSE LEFT ARM FELT A LITTLE TINGLY, BUT NOT NOW STATES IT HURTS TO BREATHE, BUT DOES NOT FEEL SHORT OF BREATH PAIN IS MUCH WORSE WITH WALKING OR ANY MOVEMENTS OF ANY KIND + NAUSEA, NO VOMITING + SWEATS "A LITTLE BIT" AND FELT SHAKEY NO DIZZINESS OR SYNCOPE STATES HER HEART WAS BEATING A LITTLE FAST, BUT WAS FEELING VERY ANXIOUS AT THE TIME-NOT OCCURRING NOW. NO SWELLING IN LEGS/ FEET OR PAIN IN [place]ES HAS HAD CHEST PAINS BEFORE BUT PT STATES SHE WAS TOLD IT WAS FROM ANXIETY. DENIES ANY CARDIAC PROCEDURES OR ANY CARDIAC DIAGNOSES STATES SHE HAS NOT TAKEN ANY OF HER MEDICATIONS FOR 3 DAYS--GIVES NO REASON WHY SHE HAS NOT TAKEN THEM--"JUST HAVEN'T" PT DRINKS UP TO 1/2 PINT OF VODKA "ALMOST EVERY DAY" --"JUST A FEW LITTLE SHOTS THROUGHOUT THE DAY SO I CAN GET MY WORK DONE" STATES SHE "ONLY HAD A COUPLE OF LITTLE SHOTS" OF VODKA TODAY PT HAS HAD MARLENE-EN-Y GASTRIC BYPASS IN 2000 IN [place], WELL CHOLECYSTECTOMY SHE HAS ALSO HAD HYSTERECTOMY/BILATERAL SALPINGO-OOPHORECTOMY AND BACK SURGERY, WELL OTHER ORTHOPEDIC SURGERIES PT LATER STATES THAT SHE TAKES AT LEAST 800 MG OF OVER THE COUNTER IBUPROFEN AT LEAST 4-6 TIMES A DAY EVERY DAY FOR HER CHRONIC GENERALIZED PAIN STATES SHE HAS "LOW KIDNEY FUNCTION" , WELL HTN, FIBROMYALGIA, ARTHRITIS, CHRONIC NECK AND BACK PAIN, AND DEPRESSION/ANXIETY--DOES NOT TAKE PSYCH MEDICATIONS. Upon my arrival patient reports significant reduction in abdominal pain she has had no night sweats chills or fever. She reports no previous history of peptic ulcer disease. Subjective/Events-last exam Patient doing well Walking around pretty well NG tube in place Win patch success Reviewed meds and labs Review of Systems General: Fatigue, Malaise Gastrointestinal: Abdominal Pain Objective Exam Vital Signs Vital Signs Date Time Temp Pulse Resp B/P (MAP) Pulse Ox O2 Delivery O2 Flow Rate FiO2 07/15/22 08:09 35.7 52 18 164/95 (118) 96 Room Air 07/15/22 07:06 0.00 Capillary Refill : Less Than 3 SecondsLess Than 3 Seconds General Appearance: No Apparent Distress, WD/WN Respiratory: Lungs Clear, Normal Breath Sounds Cardiovascular: Regular Rate, Rhythm Neurologic/Psychiatric: Alert, Oriented x3, No Motor/Sensory Deficits, Normal Mood/Affect Results/Procedures Lab Laboratory Tests 07/15/22 05:48 07/15/22 06:59 Patient resulted labs reviewed. Assessment/Plan Assessment and Plan Assess & Plan/Chief Complaint Assessment: Gastric perforation UTI Abdominal pain Acute kidney injury Chronic kidney disease Plan: Ambulate NG tube Clinical Quality Measures AMI/AHF: ASA po Prior to arrival: ZAYRA Thao DO Jul 15, 2022 07:44
[2022-07-15] MEDS: GABAPENTIN 100 MG (NEURONTIN) CAP PO SCH ×3 (07:54→20:41)
[2022-07-15] MEDS: PANTOPRAZOLE 40 MG (PROTONIX) VIAL IV SCH ×2 (09:08→20:41)
[2022-07-15] MEDS: FLUCONAZOLE 100 MG/50 ML 50 ML IV SCH (09:09)
--- NOTE | 2022-07-15 11:18 | Progress Note - Surgery ---
RAFAL ALVAREZ 07/15/22 1118: Subjective Date Seen by a Provider: Jul 15, 2022 Time Seen by a Provider: 10:30 Subjective/Events-last exam Pt resting comfortably. States her pain is well controlled and she has very minimal abdominal pain. States she has been ambulating and had several small bowel movements yesterday. She has some drainage from her LULY drain and output of NG tube. She is still NPO. Denies fever, chills, N/V, sweats, Chest pain, and SOB. Review of Systems General: No Chills, No Night Sweats HEENT: No Visual Changes Pulmonary: No Cough Cardiovascular: No: Chest Pain Gastrointestinal: No: Nausea, Vomiting, Abdominal Pain Genitourinary: No Retention Objective Exam Vital Signs Date Time Temp Pulse Resp B/P (MAP) Pulse Ox O2 Delivery O2 Flow Rate FiO2 07/15/22 08:09 35.7 52 18 164/95 (118) 96 Room Air 07/15/22 07:06 Room Air 0.00 07/15/22 07:00 51 07/15/22 04:07 36.1 52 16 152/86 (108) 95 Room Air 07/15/22 01:00 50 07/15/22 00:05 36.2 54 16 148/76 (100) 94 Room Air 07/14/22 20:38 36.2 52 18 144/99 (114) 94 Room Air 07/14/22 20:00 Room Air 07/14/22 19:00 50 07/14/22 16:28 36.1 54 19 152/93 (112) 96 Room Air 07/14/22 12:40 47 07/14/22 11:39 35.9 55 18 155/84 (107) 97 Room Air I & O 07/15/22 07:00 Intake Total 0 ml Output Total 3410 ml Balance -3410 ml Capillary Refill : Less Than 3 SecondsLess Than 3 Seconds General Appearance: No Apparent Distress, Obese HEENT: Pharynx Normal, Moist Mucous Membranes Neck: Non Tender, Supple Respiratory: Lungs Clear, Normal Breath Sounds, No Accessory Muscle Use, No Respiratory Distress Cardiovascular: Regular Rate, Rhythm, No Gallop, No Murmur Peripheral Pulses: 2+ Radial Pulses (R), 2+ Radial Pulses (L) Gastrointestinal: soft, abnormal bowel sounds (mildy decreased, but still present); No guarding; tenderness (mild tenderness surrounding LULY drain), other (LULY drain in place with 65 ml of serosanguinous drainage. NG tube in place. incisions c/d/i) Extremity: No Calf Tenderness, Pedal Edema (very mild pedal edema) Neurologic/Psychiatric: Alert, Oriented x3, No Motor/Sensory Deficits, Normal Mood/Affect Skin: Normal Color, Warm/Dry Lymphatic: No Adenopathy (no adenopathy of supraclavicular LNs) Results Lab Laboratory Tests 07/15/22 05:48: Sodium Level 139, Potassium Level 4.6, Chloride Level 112H, Carbon Dioxide Level 15L, Anion Gap 12, Blood Urea Nitrogen 7, Creatinine 1.53H, Estimat Glomerular Filtration Rate 40, BUN/Creatinine Ratio 5, Glucose Level 114H, Calcium Level 8.9, Corrected Calcium 9.9, Total Bilirubin 0.3, Aspartate Amino Transf (AST/SGOT) 15, Alanine Aminotransferase (ALT/SGPT) 29, Alkaline Phosphatase 108, Total Protein 6.0L, Albumin 2.8L 07/15/22 06:59: White Blood Count 8.5, Red Blood Count 3.72L, Hemoglobin 11.8, Hematocrit 35, Mean Corpuscular Volume 94, Mean Corpuscular Hemoglobin 32, Mean Corpuscular Hemoglobin Concent 34, Red Cell Distribution Width 12.0, Platelet Count 326, Mean Platelet Volume 10.7, Immature Granulocyte % (Auto) 1, Neutrophils (%) (Auto) 67, Lymphocytes (%) (Auto) 21, Monocytes (%) (Auto) 8, Eosinophils (%) (Auto) 2, Basophils (%) (Auto) 1, Neutrophils # (Auto) 5.7, Lymphocytes # (Auto) 1.8, Monocytes # (Auto) 0.7, Eosinophils # (Auto) 0.2, Basophils # (Auto) 0.1, Immature Granulocyte # (Auto) 0.1 Microbiology 07/07/22 Urine Culture - Final, Complete Escherichia coli Assessment/Plan Assessment/Plan Assessment/Plan S/P Laparoscopic Modified Win patch for Gastric perforation POD #2 Chronic renal insufficiency Chronic alcohol abuse h/o RYGB Pain well controlled. LULY drain, with minimal surrounding tenderness. NG tube in place, tolerating well. NPO for at least 4-5 days. Continue ambulating and IS. Clinical Quality Measures AMI/AHF: ASA po Prior to arrival: No LESLY VERMA DO 07/15/22 1348: Subjective Time Seen by a Provider: 12:56 Subjective/Events-last exam Pt seen and examined, sitting in chair in NAD. Denies N/V, has very minimal abd pain. Review of Systems General: No Chills, No Night Sweats Pulmonary: No Cough Cardiovascular: No: Chest Pain Gastrointestinal: No: Nausea, Vomiting, Abdominal Pain Objective Exam General Appearance: No Apparent Distress, Obese HEENT: Moist Mucous Membranes Respiratory: Lungs Clear, Normal Breath Sounds, No Accessory Muscle Use, No Respiratory Distress Cardiovascular: Regular Rate, Rhythm, No Murmur Gastrointestinal: soft, abnormal bowel sounds (mildy decreased, but still p resent); No guarding; tenderness (mild tenderness surrounding LULY drain), other (LULY drain in place with 65 ml of serosanguinous drainage. NG tube in place. incisions c/d/i) Extremity: Pedal Edema (very mild pedal edema) Assessment/Plan Assessment/Plan Assessment/Plan S/P Laparoscopic Modified Win patch for Gastric perforation POD #3 Chronic renal insufficiency Chronic alcohol abuse h/o RYGB Pain well controlled. LULY drain, with minimal surrounding tenderness. NG tube in place, tolerating well. NPO for at least 4-5 days. Continue ambulating and IS. Supervisory-Addendum Brief Verification & Attestation Participated in pt care: history, MDM, physical Personally performed: exam, history, MDM, supervision of care Care discussed with: Medical Student Procedures: n/a Verification and Attestation of Medical Student E/M Service A medical student performed and documented this service. I then reviewed and verified all information documented by the medical student and made modifications to such information, when appropriate. I personally performed a physical exam, medical decision making and then discussed any differences between the notes and made revisions as necessary to create one note. Lesly Verma , 07/15/22 , 13:48 RAFAL ALVAREZ Jul 15, 2022 11:18 LESLY VERMA DO Jul 15, 2022 13:48
[2022-07-16] VITALS (7 sets, daily range): BP systolic 136–177; BP diastolic 76–105
[2022-07-16] MEDS: morphine INJ 4 MG/ML 1 ML (VIAL/SYRINGE) IVP PRN ×7 (04:05→23:02)
[2022-07-16] MEDS: D5 1/2 NS W/KCL 20 MEQ/L 1,000 ML IV SCH ×3 (05:39→16:11)
[2022-07-16 05:45] LABS: BASOPHILS # (AUTO) 0.1 10^3/uL (0.0-0.1); BASOPHILS % (AUTO) 1 % (0-10); EOSINOPHILS # (AUTO) 0.2 10^3/uL (0.0-0.3); EOSINOPHILS % (AUTO) 2 % (0-10); HEMATOCRIT 42 % (35-52); HEMOGLOBIN 13.5 g/dL (11.5-16.0); LYMPHOCYTES # (AUTO) 1.7 10^3/uL (1.0-4.0); LYMPHOCYTES % (AUTO) 22 % (12-44); MEAN CORPUSCULAR HEMOGLOBIN 31 pg (25-34); MEAN CORPUSCULAR HGB CONC 32 g/dL (32-36); MEAN CORPUSCULAR VOLUME 97 fL (80-99); MEAN PLATELET VOLUME 10.6 fL (9.0-12.2); MONOCYTES # (AUTO) 0.6 10^3/uL (0.0-1.0); MONOCYTES % (AUTO) 8 % (0-12); NEUTROPHILS # (AUTO) 5.1 10^3/uL (1.8-7.8); NEUTROPHILS % (AUTO) 66 % (42-75); PLATELET COUNT 351 10^3/uL (130-400); WHITE BLOOD COUNT 7.8 10^3/uL (4.3-11.0)
[2022-07-16 05:59] LABS: POTASSIUM 4.3 MMOL/L (3.6-5.0)
[2022-07-16 06:00] LABS: CALCIUM 9.5 MG/DL (8.5-10.1)
[2022-07-16 06:02] LABS: TOTAL PROTEIN 6.4 GM/DL (6.4-8.2)
[2022-07-16 06:03] LABS: BILIRUBIN,TOTAL 0.4 MG/DL (0.1-1.0)
[2022-07-16 06:05] LABS: CREATININE SERUM 1.53 MG/DL (0.60-1.30)
--- NOTE | 2022-07-16 08:00 | Progress Note - Hospitalist ---
Subjective HPI/CC On Admission Date Seen by Provider: Jul 16, 2022 Time Seen by Provider: 11:30 PT ARRIVES VIA POV FROM HOME STATES AROUND 1800 TONIGHT, SHE WAS STANDING IN THE KITCHEN EATING TOMATOES ON TOAST--TOOK ONLY ONE BITE OF TOMATO, AND HAD SUDDEN SHARP SEVERE STABBING PAIN IN EPIGASTRIC AREA AND PAIN IS ALL OVER HER ENTIRE UPPER ABDOMEN AND ALL OVER HER ENTIRE CHEST AND INTO HER LEFT SHOULDER STATES IT IS NOT STABBING ANYMORE, BUT IS A CONSTANT PAIN THAT IS GETTING WORSE LEFT ARM FELT A LITTLE TINGLY, BUT NOT NOW STATES IT HURTS TO BREATHE, BUT DOES NOT FEEL SHORT OF BREATH PAIN IS MUCH WORSE WITH WALKING OR ANY MOVEMENTS OF ANY KIND + NAUSEA, NO VOMITING + SWEATS "A LITTLE BIT" AND FELT SHAKEY NO DIZZINESS OR SYNCOPE STATES HER HEART WAS BEATING A LITTLE FAST, BUT WAS FEELING VERY ANXIOUS AT THE TIME-NOT OCCURRING NOW. NO SWELLING IN LEGS/ FEET OR PAIN IN CALVES HAS HAD CHEST PAINS BEFORE BUT PT STATES SHE WAS TOLD IT WAS FROM ANXIETY. DENIES ANY CARDIAC PROCEDURES OR ANY CARDIAC DIAGNOSES STATES SHE HAS NOT TAKEN ANY OF HER MEDICATIONS FOR 3 DAYS--GIVES NO REASON WHY SHE HAS NOT TAKEN THEM--"JUST HAVEN'T" PT DRINKS UP TO 1/2 PINT OF VODKA "ALMOST EVERY DAY" --"JUST A FEW LITTLE SHOTS THROUGHOUT THE DAY SO I CAN GET MY WORK DONE" STATES SHE "ONLY HAD A COUPLE OF LITTLE SHOTS" OF VODKA TODAY PT HAS HAD MARLENE-EN-Y GASTRIC BYPASS IN 2000 IN [place], WELL CHOLECYSTECTOMY SHE HAS ALSO HAD HYSTERECTOMY/BILATERAL SALPINGO-OOPHORECTOMY AND BACK SURGERY, WELL OTHER ORTHOPEDIC SURGERIES PT LATER STATES THAT SHE TAKES AT LEAST 800 MG OF OVER THE COUNTER IBUPROFEN AT LEAST 4-6 TIMES A DAY EVERY DAY FOR HER CHRONIC GENERALIZED PAIN STATES SHE HAS "LOW KIDNEY FUNCTION" , WELL HTN, FIBROMYALGIA, ARTHRITIS, CHRONIC NECK AND BACK PAIN, AND DEPRESSION/ANXIETY--DOES NOT TAKE PSYCH MEDICATIONS. Upon my arrival patient reports significant reduction in abdominal pain she has had no night sweats chills or fever. She reports no previous history of peptic ulcer disease. Subjective/Events-last exam Doing better No pain reported except abdominal Walking well NGT in place Barium swallow tomorrow to check for leak and if no leak will advance diet Review of Systems Gastrointestinal: Abdominal Pain Objective Exam Vital Signs Vital Signs Date Time Temp Pulse Resp B/P (MAP) Pulse Ox O2 Delivery O2 Flow Rate FiO2 07/16/22 15:52 35.8 56 18 166/95 (118) 94 Room Air 07/15/22 07:06 0.00 Capillary Refill : Less Than 3 SecondsLess Than 3 Seconds General Appearance: No Apparent Distress, WD/WN, Chronically ill Respiratory: Lungs Clear, Normal Breath Sounds Cardiovascular: Regular Rate, Rhythm Neurologic/Psychiatric: Alert, Oriented x3, No Motor/Sensory Deficits, Normal Mood/Affect Results/Procedures Lab Laboratory Tests 07/16/22 05:36 Patient resulted labs reviewed. Assessment/Plan Assessment and Plan Assess & Plan/Chief Complaint Assessment: Gastric perforation UTI Abdominal pain Acute kidney injury Chronic kidney disease Plan: Ambulate NG tube Barium swallow tomorrow to check for leak and if no leak will advance diet Clinical Quality Measures AMI/AHF: ASA po Prior to arrival: ZAYRA Thao DO Jul 16, 2022 08:00
[2022-07-16] MEDS: PANTOPRAZOLE 40 MG (PROTONIX) VIAL IV SCH ×2 (08:15→19:42)
[2022-07-16] MEDS: FLUCONAZOLE 100 MG/50 ML 50 ML IV SCH (08:15)
[2022-07-16] MEDS: GABAPENTIN 100 MG (NEURONTIN) CAP PO SCH ×3 (09:11→21:21)
[2022-07-16] MEDS: PIPERACILLIN SODIUM/TAZOBACTAM 4.5 GM in NS (IVPB) 100 ML IV SCH ×3 (09:11→23:43)
--- NOTE | 2022-07-16 10:49 | Progress Note - Surgery ---
RAFAL ALVAREZ 07/16/22 1049: Subjective Date Seen by a Provider: Jul 16, 2022 Time Seen by a Provider: 10:00 Subjective/Events-last exam Pt resting comfortably in bed. States she has a sore throat, primarily on the left side that started this morning. She does not have any abdominal pain and she has been passing small bowel movements. She denies any blood in her stool. She has minimal drainage from her LULY drain and output of her NG tube is present. States she has been ambulating x 3 per day. She denies fever, chills, N/V, headache, dizziness, chest pain, and SOB. Review of Systems General: No Chills, No Night Sweats HEENT: No Head Aches, No Visual Changes Pulmonary: No Dyspnea, No Cough Cardiovascular: No: Chest Pain Gastrointestinal: No: Nausea, Vomiting, Abdominal Pain, Diarrhea, Melena Genitourinary: No Retention Objective Exam Vital Signs Date Time Temp Pulse Resp B/P (MAP) Pulse Ox O2 Delivery O2 Flow Rate FiO2 07/16/22 09:14 175/105 (128) 07/16/22 08:00 Room Air 07/16/22 07:32 36.3 54 16 177/101 (126) 94 Room Air 07/16/22 07:00 54 07/16/22 03:43 36.5 57 16 155/84 (107) 95 Room Air 07/16/22 01:00 50 07/15/22 23:41 36.2 55 16 145/75 (98) 95 Room Air 07/15/22 20:53 Room Air 07/15/22 19:27 36.4 52 18 157/91 (113) 95 Room Air 07/15/22 19:00 50 07/15/22 15:30 35.9 51 18 149/89 (109) 94 Room Air 07/15/22 12:29 49 07/15/22 11:17 36.3 50 18 169/92 (117) 95 Room Air I & O 07/16/22 07:00 Intake Total 0 ml Output Total 2425 ml Balance -2425 ml Capillary Refill : Less Than 3 SecondsLess Than 3 Seconds General Appearance: No Apparent Distress, Obese HEENT: PERRL/EOMI, Moist Mucous Membranes, Other (very mild pharyngeal erythema on the left. I did not see any exudates. ) Neck: Non Tender, Supple Respiratory: Lungs Clear, Normal Breath Sounds, No Accessory Muscle Use, No Respiratory Distress Cardiovascular: Regular Rate, Rhythm, No Murmur Peripheral Pulses: 2+ Radial Pulses (R), 2+ Radial Pulses (L) Gastrointestinal: normal bowel sounds, non tender, soft; No guarding; other (LULY drain in place with 65 ml of serosanguinous drainage. NG tube in place. incisions c/d/i) Extremity: No Calf Tenderness, No Pedal Edema Neurologic/Psychiatric: Alert, Oriented x3, Normal Mood/Affect Skin: Normal Color, Warm/Dry Lymphatic: No Adenopathy (no adenopathy of supraclavicular LNs) Results Lab Laboratory Tests 07/16/22 05:36: White Blood Count 7.8, Red Blood Count 4.30, Hemoglobin 13.5, Hematocrit 42, Mean Corpuscular Volume 97, Mean Corpuscular Hemoglobin 31, Mean Corpuscular Hemoglobin Concent 32, Red Cell Distribution Width 12.0, Platelet Count 351, Mean Platelet Volume 10.6, Immature Granulocyte % (Auto) 1, Neutrophils (%) (Auto) 66, Lymphocytes (%) (Auto) 22, Monocytes (%) (Auto) 8, Eosinophils (%) (Auto) 2, Basophils (%) (Auto) 1, Neutrophils # (Auto) 5.1, Lymphocytes # (Auto) 1.7, Monocytes # (Auto) 0.6, Eosinophils # (Auto) 0.2, Basophils # (Auto) 0.1, Immature Granulocyte # (Auto) 0.1, Sodium Level 141, Potassium Level 4.3, Chloride Level 111H, Carbon Dioxide Level 17L, Anion Gap 13, Blood Urea Nitrogen 6L, Creatinine 1.53H, Estimat Glomerular Filtration Rate 40, BUN/Creatinine Ratio 4, Glucose Level 118H, Calcium Level 9.5, Corrected Calcium 10.3H, Total Bilirubin 0.4, Aspartate Amino Transf (AST/SGOT) 17, Alanine Aminotransferase (ALT/SGPT) 26, Alkaline Phosphatase 104, Total Protein 6.4, Albumin 3.0L Microbiology 07/07/22 Urine Culture - Final, Complete Escherichia coli Assessment/Plan Assessment/Plan Assessment/Plan S/P Laparoscopic Modified Win patch for Gastric perforation POD #3 Chronic renal insufficiency Chronic alcohol abuse h/o RYGB Pain well controlled. LLUY drain, with minimal surrounding tenderness. NG tube in place, tolerating well. NPO for one more day. Continue ambulating and IS. Plan to do gastrografin swallow study on Sunday to check for any leaks. Will progress to liquid diet if swallow study shows no abnormalities. Clinical Quality Measures AMI/AHF: ASA po Prior to arrival: No LESLY VERMA DO 07/16/22 1206: Subjective Time Seen by a Provider: 11:18 Subjective/Events-last exam Pt seen and examined, no new complaints. Review of Systems General: No Chills, No Night Sweats HEENT: No Head Aches, No Visual Changes Pulmonary: No Dyspnea, No Cough Cardiovascular: No: Chest Pain Gastrointestinal: No: Nausea, Vomiting, Abdominal Pain Objective Exam General Appearance: No Apparent Distress, Obese HEENT: Moist Mucous Membranes, Other (very mild pharyngeal erythema on the left. ngt with scant foamy yellow output) Respiratory: Lungs Clear, Normal Breath Sounds, No Accessory Muscle Use, No Respiratory Distress Cardiovascular: Regular Rate, Rhythm, No Murmur Gastrointestinal: non tender, soft; No guarding; other (LULY drain in place with 65 ml of serosanguinous drainage. NG tube in place. incisions c/d/i) Assessment/Plan Assessment/Plan Assessment/Plan S/P Laparoscopic Modified Win patch for Gastric perforation POD #4 Chronic renal insufficiency Chronic alcohol abuse h/o RYGB Pain well controlled. LULY drain, with minimal surrounding tenderness. NG tube in place, tolerating well. NPO for one more day. Continue ambulating and IS. Plan to do gastrografin swallow study on Sunday to check for any leaks. Will progress to liquid diet if swallow study shows no abnormalities. Supervisory-Addendum Brief Verification & Attestation Participated in pt care: history, MDM, physical Personally performed: exam, history, MDM, supervision of care Care discussed with: Medical Student Procedures: n/a Verification and Attestation of Medical Student E/M Service A medical student performed and documented this service. I then reviewed and verified all information documented by the medical student and made modifications to such information, when appropriate. I personally performed a physical exam, medical decision making and then discussed any differences between the notes and made revisions as necessary to create one note. Lesly Verma , 07/16/22 , 12:06 RAFAL ALVAREZ Jul 16, 2022 10:49 LESLY VERMA DO Jul 16, 2022 12:06
[2022-07-16] MEDS: DICLOFENAC 1% GEL 100 GM (VOLTAREN) TUBE TOP SCH ×4 (12:01→19:42)
[2022-07-16] MEDS: hydrALAZINE (APESOLINE) 20 MG/ML VIAL IV SCH ×4 (12:02→23:43)
[2022-07-17] VITALS (7 sets, daily range): BP systolic 125–176; BP diastolic 79–104
[2022-07-17] MEDS: D5 1/2 NS W/KCL 20 MEQ/L 1,000 ML IV SCH ×4 (02:48→23:55)
[2022-07-17] MEDS: morphine INJ 4 MG/ML 1 ML (VIAL/SYRINGE) IVP PRN ×7 (02:49→22:32)
[2022-07-17] MEDS: hydrALAZINE (APESOLINE) 20 MG/ML VIAL IV SCH ×6 (03:50→23:50)
[2022-07-17 05:50] LABS: BASOPHILS # (AUTO) 0.1 10^3/uL (0.0-0.1); BASOPHILS % (AUTO) 1 % (0-10); EOSINOPHILS # (AUTO) 0.2 10^3/uL (0.0-0.3); EOSINOPHILS % (AUTO) 2 % (0-10); HEMATOCRIT 39 % (35-52); LYMPHOCYTES # (AUTO) 1.9 10^3/uL (1.0-4.0); LYMPHOCYTES % (AUTO) 20 % (12-44); MEAN CORPUSCULAR HEMOGLOBIN 31 pg (25-34); MEAN CORPUSCULAR HGB CONC 34 g/dL (32-36); MEAN CORPUSCULAR VOLUME 93 fL (80-99); MEAN PLATELET VOLUME 10.7 fL (9.0-12.2); MONOCYTES # (AUTO) 0.6 10^3/uL (0.0-1.0); MONOCYTES % (AUTO) 6 % (0-12); NEUTROPHILS # (AUTO) 6.8 10^3/uL (1.8-7.8); NEUTROPHILS % (AUTO) 71 % (42-75); PLATELET COUNT 382 10^3/uL (130-400); WHITE BLOOD COUNT 9.6 10^3/uL (4.3-11.0)
[2022-07-17 06:05] LABS: ALBUMIN 3.1 GM/DL (3.2-4.5); POTASSIUM 4.5 MMOL/L (3.6-5.0)
[2022-07-17 06:06] LABS: CALCIUM 9.6 MG/DL (8.5-10.1)
[2022-07-17 06:08] LABS: TOTAL PROTEIN 6.7 GM/DL (6.4-8.2)
[2022-07-17 06:09] LABS: BILIRUBIN,TOTAL 0.4 MG/DL (0.1-1.0)
[2022-07-17 06:11] LABS: CREATININE SERUM 1.4 MG/DL (0.60-1.30)
--- NOTE | 2022-07-17 07:26 | Progress Note - Surgery ---
RAFAL ALVAREZ 07/17/22 0726: Subjective Date Seen by a Provider: Jul 17, 2022 Time Seen by a Provider: 07:15 Subjective/Events-last exam Pt resting comfortably in bed. States she has no abdominal pain. She has minimal drainage from her LULY drain and NG tube output. States she is ambulating and had a BM yesterday. She had a headache yesterday evening and this morning, although her blood pressure has come down since yesterday. She denies fever, chills, N/V, cough, SOB, chest pain, or any other complaints at this time. She remains NPO. Review of Systems General: No Chills, No Night Sweats HEENT: Head Aches; No Visual Changes Pulmonary: No Dyspnea, No Cough Cardiovascular: No: Chest Pain Gastrointestinal: No: Nausea, Vomiting, Abdominal Pain, Diarrhea, Melena Genitourinary: No Retention Objective Exam Vital Signs Date Time Temp Pulse Resp B/P (MAP) Pulse Ox O2 Delivery O2 Flow Rate FiO2 07/17/22 03:49 168/87 (114) 07/17/22 01:00 57 07/17/22 00:10 36.0 60 18 157/88 (111) 94 Room Air 07/16/22 20:31 67 136/76 (96) 07/16/22 19:45 Room Air 07/16/22 19:18 35.8 59 18 171/90 (117) 95 Room Air 07/16/22 19:00 59 07/16/22 15:52 35.8 56 18 166/95 (118) 94 Room Air 07/16/22 12:55 51 07/16/22 11:36 36.0 55 20 170/90 (116) 95 Room Air 07/16/22 09:14 175/105 (128) 07/16/22 08:00 Room Air 07/16/22 07:32 36.3 54 16 177/101 (126) 94 Room Air I & O 07/17/22 07:00 Intake Total 1100 ml Output Total 285 ml Balance 815 ml Capillary Refill : Less Than 3 SecondsLess Than 3 Seconds General Appearance: No Apparent Distress, Obese HEENT: PERRL/EOMI, Moist Mucous Membranes, Other (very mild pharyngeal erythema on the left. ngt with scant foamy yellow output) Neck: Non Tender, Supple Respiratory: Lungs Clear, Normal Breath Sounds, No Accessory Muscle Use, No Respiratory Distress Cardiovascular: Regular Rate, Rhythm, No Murmur Peripheral Pulses: 2+ Radial Pulses (R), 2+ Radial Pulses (L) Gastrointestinal: normal bowel sounds, non tender, soft; No guarding; other (LULY drain in place with 45 ml of serosanguinous drainage. NG tube in place. incisions c/d/i) Extremity: No Calf Tenderness, No Pedal Edema Neurologic/Psychiatric: Alert, Oriented x3, Normal Mood/Affect Skin: Normal Color, Warm/Dry Lymphatic: No Adenopathy (no adenopathy of supraclavicular LNs) Results Lab Laboratory Tests 07/17/22 05:35: White Blood Count 9.6, Red Blood Count 4.16, Hemoglobin 13.0, Hematocrit 39, Mean Corpuscular Volume 93, Mean Corpuscular Hemoglobin 31, Mean Corpuscular Hemoglobin Concent 34, Red Cell Distribution Width 12.0, Platelet Count 382, Mean Platelet Volume 10.7, Immature Granulocyte % (Auto) 1, Neutrophils (%) (Auto) 71, Lymphocytes (%) (Auto) 20, Monocytes (%) (Auto) 6, Eosinophils (%) (Auto) 2, Basophils (%) (Auto) 1, Neutrophils # (Auto) 6.8, Lymphocytes # (Auto) 1.9, Monocytes # (Auto) 0.6, Eosinophils # (Auto) 0.2, Basophils # (Auto) 0.1, Immature Granulocyte # (Auto) 0.1, Sodium Level 140, Potassium Level 4.5, Chloride Level 111H, Carbon Dioxide Level 16L, Anion Gap 13, Blood Urea Nitrogen 5L, Creatinine 1.40H, Estimat Glomerular Filtration Rate 44, BUN/Creatinine Ratio 4, Glucose Level 120H, Calcium Level 9.6, Corrected Calcium 10.3H, Total Bilirubin 0.4, Aspartate Amino Transf (AST/SGOT) 22, Alanine Aminotransferase (ALT/SGPT) 23, Alkaline Phosphatase 113, Total Protein 6.7, Albumin 3.1L Microbiology 07/07/22 Urine Culture - Final, Complete Escherichia coli Assessment/Plan Assessment/Plan Assessment/Plan S/P Laparoscopic Modified Win patch for Gastric perforation POD #4 Chronic renal insufficiency Chronic alcohol abuse h/o RYGB Pain well controlled. LULY drain, with minimal surrounding tenderness. NG tube in place, tolerating well. Gastrografin swallow study today showed possible leak. Plan to keep NPO until and repeat swallow study. Pt has agreed with this plan. Encouraged ambulation and IS. Clinical Quality Measures AMI/AHF: ASA po Prior to arrival: No LESLY VERMA DO 07/17/22 1429: Subjective Time Seen by a Provider: 13:21 Subjective/Events-last exam Pt seen and examined, no changes. Denies abdominal pain, N/V Review of Systems General: No Night Sweats Pulmonary: No Dyspnea, No Cough Cardiovascular: No: Chest Pain Gastrointestinal: No: Nausea, Vomiting, Abdominal Pain Objective Exam General Appearance: No Apparent Distress, Obese HEENT: PERRL/EOMI, Moist Mucous Membranes, Other (very mild pharyngeal erythema on the left. ngt with scant foamy yellow output) Respiratory: Lungs Clear, Normal Breath Sounds, No Accessory Muscle Use, No Respiratory Distress Cardiovascular: Regular Rate, Rhythm, No Murmur Gastrointestinal: normal bowel sounds, non tender, soft; No guarding; other (LULY drain in place with 45 ml of serosanguinous drainage. NG tube in place. incisions c/d/i) Assessment/Plan Assessment/Plan Assessment/Plan S/P Laparoscopic Modified Win patch for Gastric perforation POD #5 Chronic renal insufficiency Chronic alcohol abuse h/o RYGB Pain well controlled. LULY drain, with minimal surrounding tenderness. NG tube in place, tolerating well. Gastrografin swallow study today showed possible leak. P vinay to keep NPO until and repeat swallow study. Pt has agreed with this plan. Encouraged ambulation and IS. Supervisory-Addendum Brief Verification & Attestation Participated in pt care: history, MDM, physical Personally performed: exam, history, MDM, supervision of care Care discussed with: Medical Student Procedures: n/a Verification and Attestation of Medical Student E/M Service A medical student performed and documented this service. I then reviewed and verified all information documented by the medical student and made modifications to such information, when appropriate. I personally performed a physical exam, medical decision making and then discussed any differences between the notes and made revisions as necessary to create one note. Lesly Verma , 07/17/22 , 14:30 RAFAL ALVAREZ Jul 17, 2022 07:26 LESLY VERMA DO Jul 17, 2022 14:29
[2022-07-17] MEDS: GABAPENTIN 100 MG (NEURONTIN) CAP PO SCH ×3 (07:59→19:25)
[2022-07-17] MEDS: FLUCONAZOLE 100 MG/50 ML 50 ML IV SCH (08:21)
[2022-07-17] MEDS: PANTOPRAZOLE 40 MG (PROTONIX) VIAL IV SCH ×2 (08:21→19:50)
[2022-07-17] MEDS: DICLOFENAC 1% GEL 100 GM (VOLTAREN) TUBE TOP SCH ×4 (08:22→19:51)
[2022-07-17] MEDS ORDERED: DIATRIZOATE MEGLUM/SODIUM 37% 120 ML (GASTROGRAFIN) PO ONE (09:30)
[2022-07-17] MEDS: PIPERACILLIN SODIUM/TAZOBACTAM 4.5 GM in NS (IVPB) 100 ML IV SCH ×3 (09:55→23:51)
[2022-07-17] MEDS ORDERED: ONDANSETRON 4 MG/2 ML (SDV) Z0FRAN IVP PRN (10:15)
--- NOTE | 2022-07-17 10:54 | Progress Note - Hospitalist ---
MALIHA ZEPEDA 07/17/22 1054: Subjective HPI/CC On Admission Date Seen by Provider: Jul 17, 2022 Time Seen by Provider: 09:30 PT ARRIVES VIA POV FROM HOME STATES AROUND 1800 TONIGHT, SHE WAS STANDING IN THE KITCHEN EATING TOMATOES ON TOAST--TOOK ONLY ONE BITE OF TOMATO, AND HAD SUDDEN SHARP SEVERE STABBING PAIN IN EPIGASTRIC AREA AND PAIN IS ALL OVER HER ENTIRE UPPER ABDOMEN AND ALL OVER HER ENTIRE CHEST AND INTO HER LEFT SHOULDER STATES IT IS NOT STABBING ANYMORE, BUT IS A CONSTANT PAIN THAT IS GETTING WORSE LEFT ARM FELT A LITTLE TINGLY, BUT NOT NOW STATES IT HURTS TO BREATHE, BUT DOES NOT FEEL SHORT OF BREATH PAIN IS MUCH WORSE WITH WALKING OR ANY MOVEMENTS OF ANY KIND + NAUSEA, NO VOMITING + SWEATS "A LITTLE BIT" AND FELT SHAKEY NO DIZZINESS OR SYNCOPE STATES HER HEART WAS BEATING A LITTLE FAST, BUT WAS FEELING VERY ANXIOUS AT THE TIME-NOT OCCURRING NOW. NO SWELLING IN LEGS/ FEET OR PAIN IN [place] HAS HAD CHEST PAINS BEFORE BUT PT STATES SHE WAS TOLD IT WAS FROM ANXIETY. DENIES ANY CARDIAC PROCEDURES OR ANY CARDIAC DIAGNOSES STATES SHE HAS NOT TAKEN ANY OF HER MEDICATIONS FOR 3 DAYS--GIVES NO REASON WHY SHE HAS NOT TAKEN THEM--"JUST HAVEN'T" PT DRINKS UP TO 1/2 PINT OF VODKA "ALMOST EVERY DAY" --"JUST A FEW LITTLE SHOTS THROUGHOUT THE DAY SO I CAN GET MY WORK DONE" STATES SHE "ONLY HAD A COUPLE OF LITTLE SHOTS" OF VODKA TODAY PT HAS HAD MARLENE-EN-Y GASTRIC BYPASS IN 2000 IN [place], WELL CHOLECYSTECTOMY SHE HAS ALSO HAD HYSTERECTOMY/BILATERAL SALPINGO-OOPHORECTOMY AND BACK SURGERY, WELL OTHER ORTHOPEDIC SURGERIES PT LATER STATES THAT SHE TAKES AT LEAST 800 MG OF OVER THE COUNTER IBUPROFEN AT LEAST 4-6 TIMES A DAY EVERY DAY FOR HER CHRONIC GENERALIZED PAIN STATES SHE HAS "LOW KIDNEY FUNCTION" , WELL HTN, FIBROMYALGIA, ARTHRITIS, CHRONIC NECK AND BACK PAIN, AND DEPRESSION/ANXIETY--DOES NOT TAKE PSYCH MEDICATIONS. Upon my arrival patient reports significant reduction in abdominal pain she has had no night sweats chills or fever. She reports no previous history of peptic ulcer disease. Subjective/Events-last exam 57F day 10 of admission for gastric perforation is improving well. Pt had a swallow study done this am, results pending. Pt claims she is in no pain and voiding well with normal BMs. Denies any fevr, N/V, SOB, and chest pain. Pt complains of mild [place] this morning. Plans to switch to liquid diet and dc if no leaks are seen on swallow study. Review of Systems General: No Chills, No Night Sweats HEENT: Head Aches; No Visual Changes Pulmonary: No Dyspnea, No Cough Cardiovascular: No: Chest Pain, Palpitations Gastrointestinal: No: Nausea, Vomiting, Abdominal Pain, Diarrhea, Constipation Genitourinary: No Dysuria, No Frequency Neurological: No: Weakness, Numbness Objective Exam Vital Signs Vital Signs Date Time Temp Pulse Resp B/P (MAP) Pulse Ox O2 Delivery O2 Flow Rate FiO2 07/17/22 08:13 35.9 60 18 176/104 (128) 95 Room Air 07/15/22 07:06 0.00 Capillary Refill : Less Than 3 SecondsLess Than 3 Seconds General Appearance: No Apparent Distress HEENT: PERRL/EOMI Neck: Non Tender, Supple Respiratory: Chest Non Tender, Lungs Clear, Normal Breath Sounds, No Accessory Muscle Use, No Respiratory Distress Cardiovascular: Regular Rate, Rhythm, No Edema, No Gallop, No JVD, No Murmur, Normal Peripheral Pulses Gastrointestinal: Normal Bowel Sounds, Non Tender, Soft Extremity: Normal Inspection, Non Tender, No Calf Tenderness, No Pedal Edema Neurologic/Psychiatric: Alert, Oriented x3, No Motor/Sensory Deficits Skin: Normal Color, Warm/Dry Results/Procedures Lab Laboratory Tests 07/17/22 05:35 Patient resulted labs reviewed. Assessment/Plan Assessment and Plan Assess & Plan/Chief Complaint 1) garstric perforation * increase intake upon swallow study results * continue IV abx * [place] on NSAID and Alcohol abuse continue HTN medications and pain control Clinical Quality Measures AMI/AHF: ASA po Prior to arrival: No NAKIA FENG DO 07/18/22 0518: Subjective Subjective/Events-last exam Pt is doing well Swallow study of barium completed, she does have some nausea Zosyn maintained, will evaluate for discontinuation Clear liquid diet may be started depending on barium swallow results Objective Exam General Appearance: No Apparent Distress, WD/WN, Chronically ill Respiratory: Lungs Clear Cardiovascular: Regular Rate, Rhythm Assessment/Plan Assessment and Plan Assess & Plan/Chief Complaint Barium swallow Supervisory-Addendum Brief Verification & Attestation Participated in pt care: history, MDM, physical Personally performed: exam, history, MDM, supervision of care Care discussed with: Medical Student Procedures: n/a Results interpretation: Verified all documentation Verification and Attestation of Medical Student E/M Service A medical student performed and documented this service in my presence. I reviewed and verified all information documented by the medical student and made modifications to such information, when appropriate. I personally performed the physical exam and medical decision making. Nakia Feng, Jul 18, 2022,05:18 MALIHA ZEPEDA Jul 17, 2022 10:54 NAKIA FENG DO Jul 18, 2022 05:18
--- NOTE | 2022-07-17 10:56 | Diagnostic Imaging Report ---
PROCEDURE: CT abdomen and pelvis without contrast. TECHNIQUE: Multiple contiguous axial images were obtained through the abdomen and pelvis without the use of intravenous contrast. Auto Exposure Controls were utilized during the CT exam to meet ALARA standards for radiation dose reduction. INDICATION: Gastric perforation, status post repair. Study is performed for follow-up. Correlation is made with CT study performed 07/11/2022. The patient ingested oral contrast. There is contrast noted within the distal esophagus as well as within the stomach. There appears to be normal emptying of the stomach into small bowel loops. No definite extravasation of contrast is identified, status post gastric perforation repair. There is a residual gas and fluid collection noted between the left lobe of the liver and the stomach at the previous site of leak. This does extend slightly inferiorly and is similar in size to prior exam. No contrast within this collection is identified on today's study. There is a surgical drain in place. The liver is unremarkable. Gallbladder surgically absent. Pancreas and spleen are unremarkable. Adrenal glands and kidneys are stable. Aorta is calcified but nonaneurysmal. Bowel loops are normal caliber. The bladder is unremarkable. Fat-containing umbilical hernia is noted. IMPRESSION: Status post gastric perforation repair. There are some residual gas and fluid collections in the upper midline abdomen from recent perforation, however, these do not contain oral contrast on today's study. There is no evidence of gastric contrast extravasation on today's study. No definite leak is detected. Dictated by: Dictated on workstation # [id number]
[2022-07-18] MEDS: D5 1/2 NS W/KCL 20 MEQ/L 1,000 ML IV SCH ×3 (02:32→16:32)
[2022-07-18] MEDS: morphine INJ 4 MG/ML 1 ML (VIAL/SYRINGE) IVP PRN ×6 (02:32→23:13)
[2022-07-18 03:53] VITALS: BP 109/56
[2022-07-18] MEDS: hydrALAZINE (APESOLINE) 20 MG/ML VIAL IV SCH ×6 (04:45→23:24)
[2022-07-18 05:58] LABS: BASOPHILS # (AUTO) 0.1 10^3/uL (0.0-0.1); BASOPHILS % (AUTO) 1 % (0-10); EOSINOPHILS # (AUTO) 0.2 10^3/uL (0.0-0.3); EOSINOPHILS % (AUTO) 2 % (0-10); HEMATOCRIT 36 % (35-52); HEMOGLOBIN 11.7 g/dL (11.5-16.0); LYMPHOCYTES # (AUTO) 1.8 10^3/uL (1.0-4.0); LYMPHOCYTES % (AUTO) 19 % (12-44); MEAN CORPUSCULAR HEMOGLOBIN 31 pg (25-34); MEAN CORPUSCULAR HGB CONC 32 g/dL (32-36); MEAN CORPUSCULAR VOLUME 95 fL (80-99); MEAN PLATELET VOLUME 10.7 fL (9.0-12.2); MONOCYTES # (AUTO) 0.5 10^3/uL (0.0-1.0); MONOCYTES % (AUTO) 5 % (0-12); NEUTROPHILS # (AUTO) 6.7 10^3/uL (1.8-7.8); NEUTROPHILS % (AUTO) 72 % (42-75); PLATELET COUNT 426 10^3/uL (130-400); WHITE BLOOD COUNT 9.3 10^3/uL (4.3-11.0)
[2022-07-18 06:18] LABS: BILIRUBIN,TOTAL 0.3 MG/DL (0.1-1.0); CALCIUM 9.2 MG/DL (8.5-10.1); CREATININE SERUM 1.54 MG/DL (0.60-1.30); POTASSIUM 3.9 MMOL/L (3.6-5.0); TOTAL PROTEIN 5.9 GM/DL (6.4-8.2)
[2022-07-18 07:53] VITALS: BP 132/83
[2022-07-18] MEDS: GABAPENTIN 100 MG (NEURONTIN) CAP PO SCH ×3 (07:59→21:02)
--- NOTE | 2022-07-18 08:56 | Progress Note - Surgery ---
RAFAL ALVAREZ 07/18/22 0856: Subjective Date Seen by a Provider: Jul 18, 2022 Time Seen by a Provider: 08:34 Subjective/Events-last exam Pt resting comfortably in bed. States she is feeling good this morning. NG tube removed and her sore throat has improved. She had a bowel movement yesterday and this morning, and continues to urinate without difficulty. States she has been walking with a walker x 3 per day. She still has some right hip pain, however that has improved with pain meds. She has a mild headache this morning, although her BP has improved. She denies abdominal pain, fever, chills, N/V, SOB, CP, or any other complaints at this time. Review of Systems General: No Chills, No Night Sweats HEENT: Head Aches; No Visual Changes; Sore Throat (on Left side, has improved) Pulmonary: No Dyspnea, No Cough Cardiovascular: No: Chest Pain, Lt Headedness Gastrointestinal: No: Nausea, Vomiting, Abdominal Pain Genitourinary: No Retention Musculoskeletal: leg pain (right hip pain) Objective Exam Vital Signs Date Time Temp Pulse Resp B/P (MAP) Pulse Ox O2 Delivery O2 Flow Rate FiO2 07/18/22 07:53 36.2 58 18 132/83 (99) 96 Room Air 07/18/22 06:58 64 07/18/22 03:53 36.4 64 18 109/56 (73) 92 Room Air 07/18/22 01:00 67 07/17/22 23:49 36.5 66 18 125/81 (96) 94 Room Air 07/17/22 19:55 Room Air 07/17/22 19:48 36.2 66 18 152/79 (103) 95 Room Air 07/17/22 19:00 72 07/17/22 15:48 36.0 64 18 146/79 (101) 94 Room Air 07/17/22 13:00 73 07/17/22 11:51 36.5 66 18 129/79 (96) 90 Room Air I & O 07/18/22 07:00 Intake Total 2350 ml Output Total 900 ml Balance 1450 ml Capillary Refill : Less Than 3 SecondsLess Than 3 Seconds General Appearance: No Apparent Distress, Obese HEENT: PERRL/EOMI, Moist Mucous Membranes, Other (very mild pharyngeal erythema on the left. ngt with scant foamy yellow output) Neck: Non Tender, Supple Respiratory: Lungs Clear, Normal Breath Sounds, No Accessory Muscle Use, No Respiratory Distress Cardiovascular: Regular Rate, Rhythm, No Murmur Peripheral Pulses: 2+ Radial Pulses (R), 2+ Radial Pulses (L) Gastrointestinal: normal bowel sounds, non tender, soft; No guarding; other (LULY drain in place with 20 ml of serosanguinous drainage. incisions c/d/i) Extremity: No Calf Tenderness, No Pedal Edema Neurologic/Psychiatric: Alert, Oriented x3, Normal Mood/Affect Skin: Normal Color, Warm/Dry Lymphatic: No Adenopathy (no adenopathy of supraclavicular LNs) Results Lab Laboratory Tests 07/18/22 05:49: White Blood Count 9.3, Red Blood Count 3.84, Hemoglobin 11.7, Hematocrit 36, Mean Corpuscular Volume 95, Mean Corpuscular Hemoglobin 31, Mean Corpuscular Hemoglobin Concent 32, Red Cell Distribution Width 12.1, Platelet Count 426H, Mean Platelet Volume 10.7, Immature Granulocyte % (Auto) 1, Neutrophils (%) (Auto) 72, Lymphocytes (%) (Auto) 19, Monocytes (%) (Auto) 5, Eosinophils (%) (Auto) 2, Basophils (%) (Auto) 1, Neutrophils # (Auto) 6.7, Lymphocytes # (Auto) 1.8, Monocytes # (Auto) 0.5, Eosinophils # (Auto) 0.2, Basophils # (Auto) 0.1, Immature Granulocyte # (Auto) 0.1, Sodium Level 142, Potassium Level 3.9, Chloride Level 110H, Carbon Dioxide Level 20L, Anion Gap 12, Blood Urea Nitrogen 6L, Creatinine 1.54H, Estimat Glomerular Filtration Rate 39, BUN/Creatinine Ratio 4, Glucose Level 106H, Calcium Level 9.2, Corrected Calcium 10.0, Total Bilirubin 0.3, Aspartate Amino Transf (AST/SGOT) 12, Alanine Aminotransferase (ALT/SGPT) 19, Alkaline Phosphatase 103, Total Protein 5.9L, Albumin 3.0L Microbiology 07/07/22 Urine Culture - Final, Complete Escherichia coli Assessment/Plan Assessment/Plan Assessment/Plan S/P Laparoscopic Modified Win patch for Gastric perforation POD #5 Chronic renal insufficiency Chronic alcohol abuse h/o RYGB Pain well controlled. LULY drain in place with minimal drainage noted. NG tube removed yesterday. Gastrografin swallow study today showed possible leak. Plan to keep NPO until and repeat swallow study. Pt has agreed with this plan. Encouraged ambulation and IS. Clinical Quality Measures AMI/AHF: ASA po Prior to arrival: No LESLY VERMA DO 07/18/22 1349: Subjective Time Seen by a Provider: 11:37 Subjective/Events-last exam Pt seen and examined, states she is doing better with NGT out. +BM Review of Systems General: No Chills, No Night Sweats Pulmonary: No Dyspnea, No Cough Cardiovascular: No: Chest Pain Gastrointestinal: No: Nausea, Vomiting, Abdominal Pain Objective Exam General Appearance: No Apparent Distress, Obese HEENT: Moist Mucous Membranes Respiratory: Lungs Clear, Normal Breath Sounds, No Accessory Muscle Use, No Respiratory Distress Cardiovascular: Regular Rate, Rhythm, No Murmur Gastrointestinal: non tender, soft; No guarding; other (LULY drain in place with 20 ml of serosanguinous drainage. incisions c/d/i) Assessment/Plan Assessment/Plan Assessment/Plan S/P Laparoscopic Modified Win patch for Gastric perforation POD #6 Chronic renal insufficiency Chronic alcohol abuse h/o RYGB Pain well controlled. LULY drain in place with minimal drainage noted. NG tube removed yesterday. Gastrografin swallow study today showed possible leak. Plan to keep NPO until and repeat swallow study. Pt has agreed with this plan. Encouraged ambulation and IS. Supervisory-Addendum Brief Verification & Attestation Participated in pt care: history, MDM, physical Personally performed: exam, history, MDM, supervision of care Care discussed with: Medical Student Procedures: n/a Verification and Attestation of Medical Student E/M Service A medical student performed and documented this service. I then reviewed and verified all information documented by the medical student and made modifications to such information, when appropriate. I personally performed a physical exam, medical decision making and then discussed any differences between the notes and made revisions as necessary to create one note. Lesly Verma , 07/18/22 , 13:48 RAFAL ALVAREZ Jul 18, 2022 08:56 LESLY VERMA DO Jul 18, 2022 13:49
[2022-07-18] MEDS: PANTOPRAZOLE 40 MG (PROTONIX) VIAL IV SCH ×2 (09:30→20:06)
[2022-07-18] MEDS: PIPERACILLIN SODIUM/TAZOBACTAM 4.5 GM in NS (IVPB) 100 ML IV SCH ×3 (09:33→23:24)
[2022-07-18] MEDS: FLUCONAZOLE 100 MG/50 ML 50 ML IV SCH (09:33)
[2022-07-18] MEDS: DICLOFENAC 1% GEL 100 GM (VOLTAREN) TUBE TOP SCH ×4 (09:45→21:55)
--- NOTE | 2022-07-18 10:46 | Progress Note - Hospitalist ---
MALIHA ZEPEDA 07/18/22 1046: Subjective HPI/CC On Admission Date Seen by Provider: Jul 18, 2022 Time Seen by Provider: 09:30 PT ARRIVES VIA POV FROM HOME STATES AROUND 1800 TONIGHT, SHE WAS STANDING IN THE KITCHEN EATING TOMATOES ON TOAST--TOOK ONLY ONE BITE OF TOMATO, AND HAD SUDDEN SHARP SEVERE STABBING PAIN IN EPIGASTRIC AREA AND PAIN IS ALL OVER HER ENTIRE UPPER ABDOMEN AND ALL OVER HER ENTIRE CHEST AND INTO HER LEFT SHOULDER STATES IT IS NOT STABBING ANYMORE, BUT IS A CONSTANT PAIN THAT IS GETTING WORSE LEFT ARM FELT A LITTLE TINGLY, BUT NOT NOW STATES IT HURTS TO BREATHE, BUT DOES NOT FEEL SHORT OF BREATH PAIN IS MUCH WORSE WITH WALKING OR ANY MOVEMENTS OF ANY KIND + NAUSEA, NO VOMITING + SWEATS "A LITTLE BIT" AND FELT SHAKEY NO DIZZINESS OR SYNCOPE STATES HER HEART WAS BEATING A LITTLE FAST, BUT WAS FEELING VERY ANXIOUS AT THE TIME-NOT OCCURRING NOW. NO SWELLING IN LEGS/ FEET OR PAIN IN [place] HAS HAD CHEST PAINS BEFORE BUT PT STATES SHE WAS TOLD IT WAS FROM ANXIETY. DENIES ANY CARDIAC PROCEDURES OR ANY CARDIAC DIAGNOSES STATES SHE HAS NOT TAKEN ANY OF HER MEDICATIONS FOR 3 DAYS--GIVES NO REASON WHY SHE HAS NOT TAKEN THEM--"JUST HAVEN'T" PT DRINKS UP TO 1/2 PINT OF VODKA "ALMOST EVERY DAY" --"JUST A FEW LITTLE SHOTS THROUGHOUT THE DAY SO I CAN GET MY WORK DONE" STATES SHE "ONLY HAD A COUPLE OF LITTLE SHOTS" OF VODKA TODAY PT HAS HAD MARLENE-EN-Y GASTRIC BYPASS IN 2000 IN [place], WELL CHOLECYSTECTOMY SHE HAS ALSO HAD HYSTERECTOMY/BILATERAL SALPINGO-OOPHORECTOMY AND BACK SURGERY, WELL OTHER ORTHOPEDIC SURGERIES PT LATER STATES THAT SHE TAKES AT LEAST 800 MG OF OVER THE COUNTER IBUPROFEN AT LEAST 4-6 TIMES A DAY EVERY DAY FOR HER CHRONIC GENERALIZED PAIN STATES SHE HAS "LOW KIDNEY FUNCTION" , WELL HTN, FIBROMYALGIA, ARTHRITIS, CHRONIC NECK AND BACK PAIN, AND DEPRESSION/ANXIETY--DOES NOT TAKE PSYCH MEDICATIONS. Upon my arrival patient reports significant reduction in abdominal pain she has had no night sweats chills or fever. She reports no previous history of peptic ulcer disease. Subjective/Events-last exam 57F on day 11 of of admission for a gastric perforation repair. Swallow study showed inconclusive results. NPO continued. Test repeat in 2 days. Pt denies any pain, N/V, SOB or fevers. Is able to ambulate well with daily walking and claims normal BMs. Review of Systems General: No Chills, No Night Sweats HEENT: No Head Aches Pulmonary: No Dyspnea, No Cough Cardiovascular: No: Chest Pain, Palpitations, Lt Headedness Gastrointestinal: No: Nausea, Vomiting, Abdominal Pain, Diarrhea, Constipation Genitourinary: No Dysuria, No Incontinence Neurological: No: Weakness, Numbness, Change in speech Objective Exam Vital Signs Vital Signs Date Time Temp Pulse Resp B/P (MAP) Pulse Ox O2 Delivery O2 Flow Rate FiO2 07/18/22 08:00 Room Air 07/18/22 07:53 36.2 58 18 132/83 (99) 96 07/15/22 07:06 0.00 Capillary Refill : Less Than 3 SecondsLess Than 3 Seconds General Appearance: No Apparent Distress HEENT: PERRL/EOMI Neck: Normal Inspection, Non Tender, Supple Respiratory: Chest Non Tender, Lungs Clear, Normal Breath Sounds, No Accessory Muscle Use, No Respiratory Distress Cardiovascular: Regular Rate, Rhythm, No Edema, No Gallop, No JVD, No Murmur, Normal Peripheral Pulses Gastrointestinal: Normal Bowel Sounds, No Organomegaly, Non Tender, Soft Extremity: Normal Capillary Refill, Normal Range of Motion, Non Tender, No Calf Tenderness, No Pedal Edema Neurologic/Psychiatric: Alert, Oriented x3, No Motor/Sensory Deficits, Normal Mood/Affect Skin: Normal Color, Warm/Dry Results/Procedures Lab Laboratory Tests 07/18/22 05:49 Patient resulted labs reviewed. Assessment/Plan Assessment and Plan Assess & Plan/Chief Complaint 1) garstric perforation * remain NPO * continue IV abx * repeat swallow study in 2 days per surgery continue HTN medications and pain control Monitor kidney fxns Clinical Quality Measures AMI/AHF: ASA po Prior to arrival: No NAKIA FENG DO 07/18/222052: Subjective Subjective/Events-last exam Pt is doing about the same Waiting until for a repeat Barium swallow for a questionable leak 10 days of Zosyn will be completed tomorrow Supervisory-Addendum Brief Verification & Attestation Participated in pt care: history, MDM, physical Personally performed: exam, history, MDM, supervision of care Care discussed with: Medical Student Procedures: n/a Results interpretation: Verified all documentation Verification and Attestation of Medical Student E/M Service A medical student performed and documented this service in my presence. I reviewed and verified all information documented by the medical student and made modifications to such information, when appropriate. I personally performed the physical exam and medical decision making. Nakia Feng, Jul 18, 2022,20:53 MALIHA ZEPEDA Jul 18, 2022 10:46 NAKIA FENG DO Jul 18, 2022 20:53
[2022-07-18 11:27] VITALS: BP 131/76
[2022-07-18 16:36] VITALS: BP 151/73
[2022-07-18 19:42] VITALS: BP 147/75
[2022-07-18 23:25] VITALS: BP 144/67
[2022-07-19] MEDS: D5 1/2 NS W/KCL 20 MEQ/L 1,000 ML IV SCH ×4 (00:03→21:18)
[2022-07-19] MEDS: morphine INJ 4 MG/ML 1 ML (VIAL/SYRINGE) IVP PRN ×6 (03:23→21:18)
[2022-07-19] MEDS: hydrALAZINE (APESOLINE) 20 MG/ML VIAL IV SCH ×5 (03:23→20:06)
[2022-07-19 04:00] VITALS: BP 153/87
[2022-07-19 06:00] LABS: BASOPHILS # (AUTO) 0.1 10^3/uL (0.0-0.1); BASOPHILS % (AUTO) 1 % (0-10); EOSINOPHILS # (AUTO) 0.2 10^3/uL (0.0-0.3); EOSINOPHILS % (AUTO) 2 % (0-10); HEMATOCRIT 39 % (35-52); HEMOGLOBIN 12.8 g/dL (11.5-16.0); LYMPHOCYTES # (AUTO) 2.4 10^3/uL (1.0-4.0); LYMPHOCYTES % (AUTO) 22 % (12-44); MEAN CORPUSCULAR HEMOGLOBIN 31 pg (25-34); MEAN CORPUSCULAR HGB CONC 33 g/dL (32-36); MEAN CORPUSCULAR VOLUME 94 fL (80-99); MEAN PLATELET VOLUME 10.7 fL (9.0-12.2); MONOCYTES # (AUTO) 0.6 10^3/uL (0.0-1.0); MONOCYTES % (AUTO) 6 % (0-12); NEUTROPHILS # (AUTO) 7.4 10^3/uL (1.8-7.8); NEUTROPHILS % (AUTO) 69 % (42-75); PLATELET COUNT 447 10^3/uL (130-400); WHITE BLOOD COUNT 10.8 10^3/uL (4.3-11.0)
[2022-07-19 06:36] LABS: ALBUMIN 3.3 GM/DL (3.2-4.5); BILIRUBIN,TOTAL 0.3 MG/DL (0.1-1.0); CALCIUM 9.7 MG/DL (8.5-10.1); CREATININE SERUM 1.51 MG/DL (0.60-1.30); POTASSIUM 3.7 MMOL/L (3.6-5.0); TOTAL PROTEIN 6.7 GM/DL (6.4-8.2)
[2022-07-19 07:44] VITALS: BP 146/91
--- NOTE | 2022-07-19 07:46 | Progress Note - Surgery ---
RAFAL ALVAREZ 07/19/22 0746: Subjective Date Seen by a Provider: Jul 19, 2022 Time Seen by a Provider: 07:20 Subjective/Events-last exam Pt resting comfortably in bed. States she is feeling better, with no headache this morning. Notes her right hip pain is constant. She denies any fever, chills, fever, abdominal pain, N/V/D, SOB, chest pain, or any other medical complaints at this time. Reports she urinating, having bowel movement, and ambulating. Review of Systems General: No Chills, No Night Sweats HEENT: No Head Aches, No Visual Changes Pulmonary: No Dyspnea, No Cough Cardiovascular: No: Chest Pain, Palpitations Gastrointestinal: No: Nausea, Vomiting, Abdominal Pain Genitourinary: No Retention Musculoskeletal: leg pain (right hip pain) Objective Exam Vital Signs Date Time Temp Pulse Resp B/P (MAP) Pulse Ox O2 Delivery O2 Flow Rate FiO2 07/19/22 04:00 36.6 64 18 153/87 (109) 96 Room Air 07/19/22 00:55 55 07/18/22 23:25 36.1 60 18 144/67 (92) 94 Room Air 07/18/22 20:00 Room Air 07/18/22 19:42 36.6 61 19 147/75 (99) 95 Room Air 07/18/22 19:00 52 07/18/22 16:36 36.1 56 18 151/73 (99) 96 Room Air 07/18/22 12:20 53 07/18/22 11:27 36.0 53 18 131/76 (94) 93 Room Air 07/18/22 08:00 Room Air 07/18/22 07:53 36.2 58 18 132/83 (99) 96 Room Air I & O 07/19/22 07:00 Intake Total 1100 ml Output Total 30 ml Balance 1070 ml Capillary Refill : Less Than 3 SecondsLess Than 3 Seconds General Appearance: No Apparent Distress, Obese HEENT: PERRL/EOMI, Moist Mucous Membranes Neck: Non Tender, Supple Respiratory: Lungs Clear, Normal Breath Sounds, No Accessory Muscle Use, No Respiratory Distress Cardiovascular: Regular Rate, Rhythm, No Murmur Peripheral Pulses: 2+ Radial Pulses (R), 2+ Radial Pulses (L) Gastrointestinal: normal bowel sounds, non tender, soft; No guarding; other (LULY drain in place with 5 ml of serosanguinous drainage. incisions c/d/i) Extremity: No Calf Tenderness, No Pedal Edema Neurologic/Psychiatric: Alert, Oriented x3, Normal Mood/Affect Skin: Normal Color, Warm/Dry Lymphatic: No Adenopathy (no adenopathy of supraclavicular LNs) Results Lab Laboratory Tests 07/19/22 05:13: White Blood Count 10.8, Red Blood Count 4.14, Hemoglobin 12.8, Hematocrit 39, Mean Corpuscular Volume 94, Mean Corpuscular Hemoglobin 31, Mean Corpuscular Hemoglobin Concent 33, Red Cell Distribution Width 12.1, Platelet Count 447H, Mean Platelet Volume 10.7, Immature Granulocyte % (Auto) 1, Neutrophils (%) (Auto) 69, Lymphocytes (%) (Auto) 22, Monocytes (%) (Auto) 6, Eosinophils (%) (Auto) 2, Basophils (%) (Auto) 1, Neutrophils # (Auto) 7.4, Lymphocytes # (Auto) 2.4, Monocytes # (Auto) 0.6, Eosinophils # (Auto) 0.2, Basophils # (Auto) 0.1, Immature Granulocyte # (Auto) 0.1, Sodium Level 141, Potassium Level 3.7, Chloride Level 109H, Carbon Dioxide Level 21, Anion Gap 11, Blood Urea Nitrogen 6L, Creatinine 1.51H, Estimat Glomerular Filtration Rate 40, BUN/Creatinine Ratio 4, Glucose Level 108H, Calcium Level 9.7, Corrected Calcium 10.3H, Total Bilirubin 0.3, Aspartate Amino Transf (AST/SGOT) 13, Alanine Aminotransferase (ALT/SGPT) 19, Alkaline Phosphatase 108, Total Protein 6.7, Albumin 3.3 Microbiology 07/07/22 Urine Culture - Final, Complete Escherichia coli Assessment/Plan Assessment/Plan Assessment/Plan S/P Laparoscopic Modified Win patch for Gastric perforation POD #6 Chronic renal insufficiency Chronic alcohol abuse h/o RYGB Pain well controlled. LULY drain in place with minimal drainage noted. NPO until tomorrow and will repeat swallow study. Pt has agreed with this plan. Encouraged ambulation and IS. Clinical Quality Measures AMI/AHF: ASA po Prior to arrival: LESLY Bush DO 07/19/22 1137: Subjective Time Seen by a Provider: 11:11 Subjective/Events-last exam Pt seen and examined, no changes or complaints. Review of Systems General: No Chills, No Night Sweats Pulmonary: No Dyspnea, No Cough Cardiovascular: No: Chest Pain, Palpitations Gastrointestinal: No: Nausea, Vomiting, Abdominal Pain Objective Exam General Appearance: No Apparent Distress, Obese HEENT: PERRL/EOMI, Moist Mucous Membranes Respiratory: Lungs Clear, Normal Breath Sounds, No Accessory Muscle Use, No Respiratory Distress Cardiovascular: Regular Rate, Rhythm, No Murmur Gastrointestinal: normal bowel sounds, non tender, soft; No guarding; other (LULY drain in place with 5 ml of serosanguinous drainage. incisions c/d/i) Extremity: No Pedal Edema Neurologic/Psychiatric: Alert, Oriented x3, Normal Mood/Affect Assessment/Plan Assessment/Plan Assessment/Plan S/P Laparoscopic Modified Win patch for Gastric perforation POD #7 Chronic renal insufficiency Chronic alcohol abuse h/o RYGB Pain well controlled. LULY drain in place with minimal drainage noted. NPO until tomorrow and will repeat swallow study. Pt has agreed with this plan. Encouraged ambulation and IS. Supervisory-Addendum Brief Verification & Attestation Participated in pt care: history, MDM, physical Personally performed: exam, history, MDM, supervision of care Care discussed with: Medical Student Procedures: n/a Verification and Attestation of Medical Student E/M Service A medical student performed and documented this service. I then reviewed and verified all information documented by the medical student and made modifications to such information, when appropriate. I personally performed a physical exam, medical decision making and then discussed any differences between the notes and made revisions as necessary to create one note. Lesly Verma , 07/19/22 , 11:37 RAFAL ALVAREZ Jul 19, 2022 07:46 LESLY VERMA DO Jul 19, 2022 11:37
[2022-07-19] MEDS: GABAPENTIN 100 MG (NEURONTIN) CAP PO SCH ×3 (08:01→19:29)
[2022-07-19] MEDS: PANTOPRAZOLE 40 MG (PROTONIX) VIAL IV SCH ×2 (08:11→20:06)
[2022-07-19] MEDS: DICLOFENAC 1% GEL 100 GM (VOLTAREN) TUBE TOP SCH ×4 (08:12→20:06)
[2022-07-19] MEDS: PIPERACILLIN SODIUM/TAZOBACTAM 4.5 GM in NS (IVPB) 100 ML IV SCH (08:19)
[2022-07-19 11:14] VITALS: BP 153/93
--- NOTE | 2022-07-19 11:22 | Progress Note - Hospitalist ---
MALIHA ZEPEDA 07/19/22 1122: Subjective HPI/CC On Admission Date Seen by Provider: Jul 19, 2022 Time Seen by Provider: 09:35 PT ARRIVES VIA POV FROM HOME STATES AROUND 1800 TONIGHT, SHE WAS STANDING IN THE KITCHEN EATING TOMATOES ON TOAST--TOOK ONLY ONE BITE OF TOMATO, AND HAD SUDDEN SHARP SEVERE STABBING PAIN IN EPIGASTRIC AREA AND PAIN IS ALL OVER HER ENTIRE UPPER ABDOMEN AND ALL OVER HER ENTIRE CHEST AND INTO HER LEFT SHOULDER STATES IT IS NOT STABBING ANYMORE, BUT IS A CONSTANT PAIN THAT IS GETTING WORSE LEFT ARM FELT A LITTLE TINGLY, BUT NOT NOW STATES IT HURTS TO BREATHE, BUT DOES NOT FEEL SHORT OF BREATH PAIN IS MUCH WORSE WITH WALKING OR ANY MOVEMENTS OF ANY KIND + NAUSEA, NO VOMITING + SWEATS "A LITTLE BIT" AND FELT SHAKEY NO DIZZINESS OR SYNCOPE STATES HER HEART WAS BEATING A LITTLE FAST, BUT WAS FEELING VERY ANXIOUS AT THE TIME-NOT OCCURRING NOW. NO SWELLING IN LEGS/ FEET OR PAIN IN [place] HAS HAD CHEST PAINS BEFORE BUT PT STATES SHE WAS TOLD IT WAS FROM ANXIETY. DENIES ANY CARDIAC PROCEDURES OR ANY CARDIAC DIAGNOSES STATES SHE HAS NOT TAKEN ANY OF HER MEDICATIONS FOR 3 DAYS--GIVES NO REASON WHY SHE HAS NOT TAKEN THEM--"JUST HAVEN'T" PT DRINKS UP TO 1/2 PINT OF VODKA "ALMOST EVERY DAY" --"JUST A FEW LITTLE SHOTS THROUGHOUT THE DAY SO I CAN GET MY WORK DONE" STATES SHE "ONLY HAD A COUPLE OF LITTLE SHOTS" OF VODKA TODAY PT HAS HAD MARLENE-EN-Y GASTRIC BYPASS IN 2000 IN [place], WELL CHOLECYSTECTOMY SHE HAS ALSO HAD HYSTERECTOMY/BILATERAL SALPINGO-OOPHORECTOMY AND BACK SURGERY, WELL OTHER ORTHOPEDIC SURGERIES PT LATER STATES THAT SHE TAKES AT LEAST 800 MG OF OVER THE COUNTER IBUPROFEN AT LEAST 4-6 TIMES A DAY EVERY DAY FOR HER CHRONIC GENERALIZED PAIN STATES SHE HAS "LOW KIDNEY FUNCTION" , WELL HTN, FIBROMYALGIA, ARTHRITIS, CHRONIC NECK AND BACK PAIN, AND DEPRESSION/ANXIETY--DOES NOT TAKE PSYCH MEDICATIONS. Upon my arrival patient reports significant reduction in abdominal pain she has had no night sweats chills or fever. She reports no previous history of peptic ulcer disease. Subjective/Events-last exam 57 F day 12 s/p gastric perforation repair. Pt doing well and in no pain. Still NPO with swallow study scheduled for tomorrow. Denies any fever, N/V, chest pain, SOB. Reports normal BMs. Ambulation has increased with continued walks during the day. Finished zoysn therapy today, tolerated well. Review of Systems General: No Chills, No Night Sweats HEENT: No Head Aches Pulmonary: No Dyspnea, No Cough Cardiovascular: No: Chest Pain, Palpitations Gastrointestinal: No: Nausea, Vomiting, Abdominal Pain Genitourinary: No Dysuria, No Incontinence Neurological: No: Weakness, Numbness Objective Exam Vital Signs Vital Signs Date Time Temp Pulse Resp B/P (MAP) Pulse Ox O2 Delivery O2 Flow Rate FiO2 07/19/22 11:14 36.4 57 18 153/93 (113) 96 Room Air 07/15/22 07:06 0.00 Capillary Refill : Less Than 3 SecondsLess Than 3 Seconds General Appearance: No Apparent Distress HEENT: PERRL/EOMI Neck: Normal Inspection, Non Tender, Supple Respiratory: Chest Non Tender, Lungs Clear, Normal Breath Sounds, No Accessory Muscle Use, No Respiratory Distress Cardiovascular: Regular Rate, Rhythm, No Edema, No Gallop, No Murmur, Normal Peripheral Pulses Gastrointestinal: Normal Bowel Sounds, No Pulsatile Mass, Non Tender, Soft Extremity: Normal Capillary Refill, Non Tender, No Calf Tenderness, No Pedal Edema Neurologic/Psychiatric: Alert, Oriented x3 Skin: Normal Color, Warm/Dry Results/Procedures Lab Laboratory Tests 07/19/22 05:13 Patient resulted labs reviewed. Assessment/Plan Assessment and Plan Assess & Plan/Chief Complaint 1) garstric perforation * remain NPO * repeat swallow study tomorrow per surgery continue HTN medications and pain control Monitor kidney fxns PT Clinical Quality Measures AMI/AHF: ASA po Prior to arrival: No NAKIA FENG DO 07/19/22 2016: Subjective Subjective/Events-last exam Still remains NPO Barium swallow in the morning to check for leak Labs are okay Finish with Zosyn today Review of Systems General: Fatigue, Malaise Assessment/Plan Assessment and Plan Assess & Plan/Chief Complaint N.p.o. Monitor kidney function Barium swallow tomorrow to check for leak Supervisory-Addendum Brief Verification & Attestation Participated in pt care: history, MDM, physical Personally performed: exam, history, MDM, supervision of care Care discussed with: Medical Student Procedures: n/a Results interpretation: Verified all documentation Verification and Attestation of Medical Student E/M Service A medical student performed and documented this service in my presence. I reviewed and verified all information documented by the medical student and made modifications to such information, when appropriate. I personally performed the physical exam and medical decision making. Nakia Feng, Jul 19, 2022,20:15 MALIHA ZEPEDA Jul 19, 2022 11:22 NAKIA FENG DO Jul 19, 2022 20:16
[2022-07-19 15:57] VITALS: BP 163/96
[2022-07-19 19:56] VITALS: BP 155/87
[2022-07-20] MEDS: morphine INJ 4 MG/ML 1 ML (VIAL/SYRINGE) IVP PRN ×5 (00:04→17:18)
[2022-07-20] MEDS: hydrALAZINE (APESOLINE) 20 MG/ML VIAL IV SCH ×5 (00:04→17:20)
[2022-07-20 00:21] VITALS: BP 146/86
[2022-07-20 03:58] VITALS: BP 164/89
[2022-07-20] MEDS: D5 1/2 NS W/KCL 20 MEQ/L 1,000 ML IV SCH ×3 (05:34→13:17)
[2022-07-20 06:08] LABS: BASOPHILS % (AUTO) 1 % (0-10); EOSINOPHILS # (AUTO) 0.2 10^3/uL (0.0-0.3); EOSINOPHILS % (AUTO) 2 % (0-10); HEMATOCRIT 38 % (35-52); HEMOGLOBIN 12.8 g/dL (11.5-16.0); LYMPHOCYTES # (AUTO) 1.8 10^3/uL (1.0-4.0); LYMPHOCYTES % (AUTO) 22 % (12-44); MEAN CORPUSCULAR HEMOGLOBIN 31 pg (25-34); MEAN CORPUSCULAR HGB CONC 33 g/dL (32-36); MEAN CORPUSCULAR VOLUME 94 fL (80-99); MEAN PLATELET VOLUME 10.7 fL (9.0-12.2); MONOCYTES # (AUTO) 0.6 10^3/uL (0.0-1.0); MONOCYTES % (AUTO) 7 % (0-12); NEUTROPHILS # (AUTO) 5.5 10^3/uL (1.8-7.8); NEUTROPHILS % (AUTO) 68 % (42-75); PLATELET COUNT 432 10^3/uL (130-400)
[2022-07-20 06:34] LABS: ALBUMIN 3.2 GM/DL (3.2-4.5); BILIRUBIN,TOTAL 0.3 MG/DL (0.1-1.0); CALCIUM 9.6 MG/DL (8.5-10.1); CREATININE SERUM 1.35 MG/DL (0.60-1.30); POTASSIUM 3.7 MMOL/L (3.6-5.0); TOTAL PROTEIN 6.5 GM/DL (6.4-8.2)
[2022-07-20 07:53] VITALS: BP 155/92
--- NOTE | 2022-07-20 08:15 | Progress Note - Surgery ---
RAFAL ALVAREZ 07/20/22 0815: Subjective Date Seen by a Provider: Jul 20, 2022 Subjective/Events-last exam Pt resting comfortably in bed. States she is feeling good other than her right hip pain that is becoming more constant and prevented her from walking yesterday. She denies abdominal pain, N/V, cough, chest pain or SOB. She is still having good urine out put and bowel movements. Review of Systems General: No Chills, No Night Sweats HEENT: No Visual Changes Pulmonary: No Dyspnea, No Cough Cardiovascular: No: Chest Pain Gastrointestinal: No: Nausea, Vomiting, Abdominal Pain Genitourinary: No Retention Musculoskeletal: leg pain (right hip pain) Objective Exam Vital Signs Date Time Temp Pulse Resp B/P (MAP) Pulse Ox O2 Delivery O2 Flow Rate FiO2 07/20/22 07:53 36.0 63 18 155/92 (113) 96 Room Air 07/20/22 07:00 57 07/20/22 03:58 36.1 53 18 164/89 (114) 93 Room Air 07/20/22 01:00 53 07/20/22 00:21 36.2 57 20 146/86 (106) 96 Room Air 07/19/22 20:17 Room Air 07/19/22 19:56 36.4 61 20 155/87 (109) 95 Room Air 07/19/22 19:00 62 07/19/22 15:57 36.4 59 20 163/96 (118) 98 Room Air 07/19/22 12:26 52 07/19/22 11:14 36.4 57 18 153/93 (113) 96 Room Air I & O 07/20/22 07:00 Intake Total 0 ml Output Total 105 ml Balance -105 ml Capillary Refill : Less Than 3 SecondsLess Than 3 Seconds General Appearance: No Apparent Distress, Obese HEENT: PERRL/EOMI, Moist Mucous Membranes Neck: Normal Inspection, Non Tender, Supple Respiratory: Lungs Clear, Normal Breath Sounds, No Accessory Muscle Use, No Respiratory Distress Cardiovascular: Regular Rate, Rhythm, No Murmur Peripheral Pulses: 2+ Radial Pulses (R), 2+ Radial Pulses (L) Gastrointestinal: normal bowel sounds, non tender, soft, other (LULY drain in place with minimal drainage. incisions clean dry and intact) Extremity: No Pedal Edema Neurologic/Psychiatric: Alert, Oriented x3, Normal Mood/Affect Skin: Normal Color, Warm/Dry Lymphatic: No Adenopathy (no adenopathy of supraclavicular LNs) Results Lab Laboratory Tests 07/20/22 05:30: White Blood Count 8.0, Red Blood Count 4.09, Hemoglobin 12.8, Hematocrit 38, Mean Corpuscular Volume 94, Mean Corpuscular Hemoglobin 31, Mean Corpuscular Hemoglobin Concent 33, Red Cell Distribution Width 12.0, Platelet Count 432H, Mean Platelet Volume 10.7, Immature Granulocyte % (Auto) 0, Neutrophils (%) (Auto) 68, Lymphocytes (%) (Auto) 22, Monocytes (%) (Auto) 7, Eosinophils (%) (Auto) 2, Basophils (%) (Auto) 1, Neutrophils # (Auto) 5.5, Lymphocytes # (Auto) 1.8, Monocytes # (Auto) 0.6, Eosinophils # (Auto) 0.2, Basophils # (Auto) 0.0, Immature Granulocyte # (Auto) 0.0, Sodium Level 140, Potassium Level 3.7, Chloride Level 107, Carbon Dioxide Level 21, Anion Gap 12, Blood Urea Nitrogen 5L, Creatinine 1.35H, Estimat Glomerular Filtration Rate 46, BUN/Creatinine Ratio 4, Glucose Level 110H, Calcium Level 9.6, Corrected Calcium 10.2H, Total Bilirubin 0.3, Aspartate Amino Transf (AST/SGOT) 12, Alanine Aminotransferase (ALT/SGPT) 16, Alkaline Phosphatase 101, Total Protein 6.5, Albumin 3.2 Microbiology 07/07/22 Urine Culture - Final, Complete Escherichia coli Assessment/Plan Assessment/Plan Assessment/Plan S/P Laparoscopic Modified Win patch for Gastric perforation POD #8 Chronic renal insufficiency Chronic alcohol abuse h/o RYGB Pain well controlled. LULY drain in place with minimal drainage noted. Repeat swallow study today, if no leak may progress her diet. Pt has agreed with this plan. Encouraged ambulation and IS. Clinical Quality Measures AMI/AHF: ASA po Prior to arrival: LESLY Bush DO 07/20/22 1420: Subjective Time Seen by a Provider: 10:31 Subjective/Events-last exam Pt seen and examined, she already had her swallow study. Pt is hungry and wants to eat, no other complaints. Review of Systems General: No Chills, No Night Sweats Pulmonary: No Dyspnea, No Cough Cardiovascular: No: Chest Pain, Palpitations Gastrointestinal: No: Nausea, Vomiting, Abdominal Pain Objective Exam General Appearance: No Apparent Distress, Obese HEENT: Moist Mucous Membranes Respiratory: Lungs Clear, Normal Breath Sounds, No Accessory Muscle Use, No Respiratory Distress Cardiovascular: Regular Rate, Rhythm, No Murmur Gastrointestinal: non tender, soft, other (LULY drain in place with minimal drainage. incisions clean dry and intact) Assessment/Plan Assessment/Plan Assessment/Plan S/P Laparoscopic Modified Win patch for Gastric perforation POD #8 Chronic renal insufficiency Chronic alcohol abuse h/o RYGB Pain well controlled. LULY drain in place with minimal drainage noted. Repeat swallow showed no leak, smaller fluid collection (looks much better than last study) will increase her diet. Hopefully home today, latest tomorrow. Supervisory-Addendum Brief Verification & Attestation Participated in pt care: history, MDM, physical Personally performed: exam, history, MDM, supervision of care Care discussed with: Medical Student Procedures: n/a Verification and Attestation of Medical Student E/M Service A medical student performed and documented this service. I then reviewed and verified all information documented by the medical student and made modifications to such information, when appropriate. I personally performed a physical exam, medical decision making and then discussed any differences between the notes and made revisions as necessary to create one note. Lesly Verma , 07/20/22 , 14:20 RAFAL ALVAREZ Jul 20, 2022 08:15 LESLY VERMA DO Jul 20, 2022 14:20
[2022-07-20] MEDS ORDERED: DIATRIZOATE MEGLUM/SODIUM 37% 120 ML (GASTROGRAFIN) PO NR (08:30)
[2022-07-20] MEDS: GABAPENTIN 100 MG (NEURONTIN) CAP PO SCH ×2 (09:19→12:25)
--- NOTE | 2022-07-20 09:30 | Diagnostic Imaging Report ---
PROCEDURE: CT abdomen and pelvis without contrast. TECHNIQUE: Multiple contiguous axial images were obtained through the abdomen and pelvis without the use of intravenous contrast. Auto Exposure Controls were utilized during the CT exam to meet ALARA standards for radiation dose reduction. INDICATION: Gastric perforation, status post repair. Study is performed for follow-up. Correlation is made with recent CT from 07/17/2022. The patient ingested 8 ounces mixture of water and Gastrografin contrast. There is contrast seen within the distal esophagus and stomach with passage of contrast into the small bowel. No extravasation of contrast is seen. The small extraluminal fluid collections in the gastrohepatic location are decreasing in size when compared with prior CT. Surgical drain remains in place. The liver is unremarkable. Gallbladder surgically absent. Pancreas and spleen are unremarkable. Adrenal glands and kidneys are stable. Fat-containing umbilical hernia is again noted. No free fluid is seen. Bladder is unremarkable. Uterus is surgically absent. IMPRESSION: Postoperative changes from gastric perforation repair. No residual perforation or extravasation of contrast is seen on today's study. The small fluid collections at the perforation site are decreasing in size. No acute feature seen. No new abnormalities detected. Dictated by: Dictated on workstation # [id number]
[2022-07-20] MEDS: PANTOPRAZOLE 40 MG (PROTONIX) VIAL IV SCH (09:31)
[2022-07-20] MEDS: DICLOFENAC 1% GEL 100 GM (VOLTAREN) TUBE TOP SCH ×3 (09:33→17:20)
[2022-07-20 11:21] VITALS: BP 156/94
[2022-07-20] MEDS ORDERED: PANT40TA2 PO (12:44)
[2022-07-20] MEDS ORDERED: GABA-486 PO (12:44)
--- NOTE | 2022-07-20 12:44 | Discharge Summary ---
Discharge Summary Hospital Course Was the Problem List Reviewed?: Yes Problems/Dx: (1) Gastric perforation Status: Acute (2) History of gastric bypass Status: Acute (3) Smoker Status: Acute (4) Hypertension Status: Chronic Qualifiers: Qualified Codes: I10 - Essential (primary) hypertension (5) UTI (urinary tract infection) Status: Acute Qualifiers: (6) Sciatica Status: Chronic Qualifiers: Qualified Codes: M54.31 - Sciatica, right side Hospital Course Date of Admission: Jul 08, 2022 at 02:10 Admission Diagnosis : Family Physician/Provider: Hilary Johnson MD Date of Discharge: 07/20/22 Discharge Diagnosis: Gastric perforation, UTI Hospital Course: 57 F with hx of chronic alcohol and NSAID abuse was admitted due to gastric perforation and UTI on 07/07/[address] Verma. Pain mgmt, kidney function, BP were managed along with Abx therapy for E. coli that was ID with Ucx and IV PPI. Pt was NPO completed a swallow study on day 10 that showed suspicion of a leak. Repeat swallow study was done on day 13 showing no leak and pt was started on soft food diet. Pt completed a 12 day course of abx and was s tarted on PT to build strength. On day 13 , pt complained of rt hip pain that prevented her from ambulating well. Ortho was consulted and rt hip x-ray was obtained. Pt to dc home today 07/20/2022 pending surg. Labs and Pending Lab Test: Laboratory Tests 07/20/22 05:30: White Blood Count 8.0, Red Blood Count 4.09, Hemoglobin 12.8, Hematocrit 38, Mean Corpuscular Volume 94, Mean Corpuscular Hemoglobin 31, Mean Corpuscular Hemoglobin Concent 33, Red Cell Distribution Width 12.0, Platelet Count 432H, Mean Platelet Volume 10.7, Immature Granulocyte % (Auto) 0, Neutrophils (%) (Auto) 68, Lymphocytes (%) (Auto) 22, Monocytes (%) (Auto) 7, Eosinophils (%) (Auto) 2, Basophils (%) (Auto) 1, Neutrophils # (Auto) 5.5, Lymphocytes # (Auto) 1.8, Monocytes # (Auto) 0.6, Eosinophils # (Auto) 0.2, Basophils # (Auto) 0.0, Immature Granulocyte # (Auto) 0.0, Sodium Level 140, Potassium Level 3.7, Chloride Level 107, Carbon Dioxide Level 21, Anion Gap 12, Blood Urea Nitrogen 5L, Creatinine 1.35H, Estimat Glomerular Filtration Rate 46, BUN/Creatinine Ratio 4, Glucose Level 110H, Calcium Level 9.6, Corrected Calcium 10.2H, Total Bilirubin 0.3, Aspartate Amino Transf (AST/SGOT) 12, Alanine Aminotransferase (ALT/SGPT) 16, Alkaline Phosphatase 101, Total Protein 6.5, Albumin 3.2 Microbiology 07/07/22 Urine Culture - Final, Complete Escherichia coli Home Meds Active Reported Ibuprofen 200 Mg Tablet 800 Mg PO Q8H PRN TAKES 4 (200MG) TABS Multivitamin 1 Each Tablet 1 Each PO BID Fluticasone Propionate 50 Mcg/Actuation [place].susp 50 Mcg NA BID PRN Amlodipine Besylate 10 Mg Tablet 10 Mg PO 1999 Hydrochlorothiazide 25 Mg Tablet 25 Mg PO DAILY Spironolactone 25 Mg Tablet 25 Mg PO 1999 Lisinopril 40 Mg Tablet 40 Mg PO DAILY Prozac (Fluoxetine HCl) 20 Mg Capsule 20 Mg PO 1999 Omeprazole 20 Mg Capsule.dr 20 Mg PO DAILY Proair Hfa (Albuterol Sulfate) 1 Puff Puff 2 Puff IH Q4H PRN 1 PUFF = 90 MCG Cyanocobalamin Injection (Cyanocobalamin) 1,000 Mcg/Ml Inj 1,000 Mcg IJ EVERY OTHER MONTH Aspirin EC (Aspirin) 81 Mg Tablet.dr 81 Mg PO DAILY Assessment/Pt Instructions PCP in 1 week Discharge Planning: <30 minutes discharge planning Discharge Instructions Discharge Diet: Soft Diet Discharge Physical Examination Vital Signs Vital Signs Date Time Temp Pulse Resp B/P (MAP) Pulse Ox O2 Delivery O2 Flow Rate FiO2 07/20/22 11:21 36.3 60 18 156/94 (114) 95 Room Air 07/15/22 07:06 0.00 General Appearance: No Apparent Distress, WD/WN, Chronically ill Respiratory: Lungs Clear, Normal Breath Sounds Cardiovascular: Regular Rate, Rhythm Neurologic/Psychiatric: Alert, Oriented x3 Allergies: Coded Allergies: metronidazole (Unverified Allergy, Mild, HIVES, 11/01/06) duloxetine (Verified Allergy, Unknown, 01/29/18) ibuprofen (Verified Allergy, Unknown, 01/29/18) pregabalin (Verified Allergy, Unknown, pt has rec Gabapentin, 07/12/22) Discharge Summary Date of Admission Jul 08, 2022 at 02:10 Date of Discharge Discharge Date: Jul 20, 2022 Admission Diagnosis 1. Gastric perforation suspect peptic ulcer disease as patient has multiple risk factors including alcohol use disorder ibuprofen usage SSRI usage. Discussed the importance of avoidance of all nonsteroidals and aspirin likely endoscopy to follow and consideration for surgery per Dr. Verma currently the patient is stable with decreasing white count. 2. Renal disease which appears to be more chronic and likely aggravated by n onsteroidal therapy another reason the patient needs to avoid nonsteroidals in the past and she admits that she has been told this by other providers. 3. Probable alcohol use disorder will initiate detox protocol. Discharge Diagnosis N.p.o. Monitor kidney function Barium swallow tomorrow to check for leak Clinical Quality Measures AMI/AHF: ASA po Prior to arrival: ZAYRA Thao DO Jul 20, 2022 12:44
--- NOTE | 2022-07-20 13:40 | Diagnostic Imaging Report ---
INDICATION: Right hip pain. FINDINGS: Three views of the right hip show no fracture, dislocation or other acute abnormalities. IMPRESSION: Negative right hip. Dictated by: Dictated on workstation # [id number]
--- NOTE | 2022-07-20 14:21 | Progress Note - Hospitalist ---
MALIHA ZEPEDA 07/20/22 1421: Subjective HPI/CC On Admission Date Seen by Provider: Jul 20, 2022 Time Seen by Provider: 09:00 PT ARRIVES VIA POV FROM HOME STATES AROUND 1800 TONIGHT, SHE WAS STANDING IN THE KITCHEN EATING TOMATOES ON TOAST--TOOK ONLY ONE BITE OF TOMATO, AND HAD SUDDEN SHARP SEVERE STABBING PAIN IN EPIGASTRIC AREA AND PAIN IS ALL OVER HER ENTIRE UPPER ABDOMEN AND ALL OVER HER ENTIRE CHEST AND INTO HER LEFT SHOULDER STATES IT IS NOT STABBING ANYMORE, BUT IS A CONSTANT PAIN THAT IS GETTING WORSE LEFT ARM FELT A LITTLE TINGLY, BUT NOT NOW STATES IT HURTS TO BREATHE, BUT DOES NOT FEEL SHORT OF BREATH PAIN IS MUCH WORSE WITH WALKING OR ANY MOVEMENTS OF ANY KIND + NAUSEA, NO VOMITING + SWEATS "A LITTLE BIT" AND FELT SHAKEY NO DIZZINESS OR SYNCOPE STATES HER HEART WAS BEATING A LITTLE FAST, BUT WAS FEELING VERY ANXIOUS AT THE TIME-NOT OCCURRING NOW. NO SWELLING IN LEGS/ FEET OR PAIN IN [place] HAS HAD CHEST PAINS BEFORE BUT PT STATES SHE WAS TOLD IT WAS FROM ANXIETY. DENIES ANY CARDIAC PROCEDURES OR ANY CARDIAC DIAGNOSES STATES SHE HAS NOT TAKEN ANY OF HER MEDICATIONS FOR 3 DAYS--GIVES NO REASON WHY SHE HAS NOT TAKEN THEM--"JUST HAVEN'T" PT DRINKS UP TO 1/2 PINT OF VODKA "ALMOST EVERY DAY" --"JUST A FEW LITTLE SHOTS THROUGHOUT THE DAY SO I CAN GET MY WORK DONE" STATES SHE "ONLY HAD A COUPLE OF LITTLE SHOTS" OF VODKA TODAY PT HAS HAD MARLENE-EN-Y GASTRIC BYPASS IN 2000 IN [place], WELL CHOLECYSTECTOMY SHE HAS ALSO HAD HYSTERECTOMY/BILATERAL SALPINGO-OOPHORECTOMY AND BACK SURGERY, WELL OTHER ORTHOPEDIC SURGERIES PT LATER STATES THAT SHE TAKES AT LEAST 800 MG OF OVER THE COUNTER IBUPROFEN AT LEAST 4-6 TIMES A DAY EVERY DAY FOR HER CHRONIC GENERALIZED PAIN STATES SHE HAS "LOW KIDNEY FUNCTION" , WELL HTN, FIBROMYALGIA, ARTHRITIS, CHRONIC NECK AND BACK PAIN, AND DEPRESSION/ANXIETY--DOES NOT TAKE PSYCH MEDICATIONS. Upon my arrival patient reports significant reduction in abdominal pain she has had no night sweats chills or fever. She reports no previous history of peptic ulcer disease. Subjective/Events-last exam 57 F with hx of chronic alcohol and NSAID abuse was admitted due to gastric perforation and UTI on 07/07/[address] Verma. Pain mgmt, kidney function, BP were managed along with Abx therapy for E. coli that was ID with Ucx and IV PPI. Pt was NPO completed a swallow study on day 10 that showed suspicion of a leak. Repeat swallow study was done on day 13 showing no leak and pt was started on soft food diet. Pt completed a 12 day course of abx and was started on PT to build strength. On day 13 , pt complained of rt hip pain that prevented her from ambulating well. Ortho was consulted and rt hip x-ray was obtained. Pt to dc home today 07/20/2022 pending surg. Review of Systems General: No Chills, No Fatigue HEENT: No Head Aches, No Dysphasia Pulmonary: No Dyspnea, No Cough Cardiovascular: No: Chest Pain, Palpitations Gastrointestinal: No: Nausea, Vomiting, Abdominal Pain, Constipation Genitourinary: No Dysuria, No Incontinence Musculoskeletal: leg pain (rt hip) Neurological: No: Weakness, Numbness Objective Exam Vital Signs Vital Signs Date Time Temp Pulse Resp B/P (MAP) Pulse Ox O2 Delivery O2 Flow Rate FiO2 07/20/22 11:21 36.3 60 18 156/94 (114) 95 Room Air 07/15/22 07:06 0.00 Capillary Refill : Less Than 3 SecondsLess Than 3 Seconds General Appearance: Anxious HEENT: PERRL/EOMI Neck: Normal Inspection, Non Tender, Supple Respiratory: Chest Non Tender, Lungs Clear, Normal Breath Sounds, No Accessory Muscle Use, No Respiratory Distress Cardiovascular: Regular Rate, Rhythm, No Edema, No JVD, No Murmur, Normal Peripheral Pulses Gastrointestinal: No Organomegaly, No Pulsatile Mass, Non Tender, Soft Extremity: Normal Capillary Refill, Normal Inspection, No Pedal Edema, Other (rt hip pain) Neurologic/Psychiatric: Alert, Oriented x3 Skin: Normal Color, Warm/Dry Results/Procedures Lab Laboratory Tests 07/20/22 05:30 Patient resulted labs reviewed. Assessment/Plan Assessment and Plan Assess & Plan/Chief Complaint gastric repair hip pain [place] on NSAID abuse remain on soft food diet consult ortho for rt hip pain mgmt rt hip x-ray continue out pt PPI Clinical Quality Measures AMI/AHF: ASA po Prior to arrival: NAKIA Thao DO 07/21/22 0542: Supervisory-Addendum Brief Verification & Attestation Participated in pt care: history, MDM, physical Personally performed: exam, history, MDM, supervision of care Care discussed with: Medical Student Procedures: n/a Results interpretation: Verified all documentation Verification and Attestation of Medical Student E/M Service A medical student performed and documented this service in my presence. I reviewed and verified all information documented by the medical student and made modifications to such information, when appropriate. I personally performed the physical exam and medical decision making. Nakia Murguia, Jul 21, 2022,05:42 MALIHA ZEPEDA Jul 20, 2022 14:21 NAKIA MURGUIA DO Jul 21, 2022 05:42
--- NOTE | 2022-07-20 15:23 | Progress Note ---
Standard Progress Note Progress Notes/Assess & Plan Date Seen by a Provider: Jul 20, 2022 Time Seen by a Provider: 15:22 Progress/Assessment & Plan patient seen and examined consult dictated findings c/w lumbar radiculopathy rec sympomatic treatment and FU as outpatient with her spine surgeon if symptoms persist MÓNICA DUONG MD Jul 20, 2022 15:23
[2022-07-20 15:26] VITALS: BP 142/94
--- NOTE | 2022-07-20 19:10 | CONSULTATION REPORT ---
DATE OF SERVICE: INPATIENT CONSULTATION REASON FOR CONSULTATION: Right leg pain. HISTORY OF PRESENT ILLNESS: The patient is a 57-year-old female who has been in the hospital for approximately last two weeks following a gastric perforation. She reports that she has been having back pain and pain radiating down her right leg off and on for the last week. It became worse over the last couple of days. She reports prior history of lumbar spine surgery, which "spacers" were put in. She was told at that point that she needed further surgery. She denies any weakness, but she does report radicular symptoms. She reports it feels like "sciatica." Radiographs of her right hip were obtained, which revealed some mild degenerative changes, but no acute changes. PHYSICAL EXAMINATION: The patient is lying with her hips flexed and knees flexed. She reports this is more comfortable. She has no pain with internal or external rotation of the right hip. She has a mildly positive straight leg raise on the right. No gross weakness is noted in right lower extremity. Sensation is intact throughout. Pulses are symmetric. CLINICAL IMPRESSION: Right lumbar radiculopathy (sciatica). PLAN: Symptomatic treatment. I have recommended the patient to follow up with her spine surgeon after discharge. No acute intervention is needed currently. The patient is agreeable to this plan. Thank you for the consultation. Job ID: [id number] DocumentID: [id number] Dictated Date: 07/20/2022 15:21:57 [employer] Date: 07/20/2022 19:10:07 Dictated By: MÓNICA DUONG MD
== END 2022-07-20 18:50 | disposition home or self-care (01) | DRG 326 ==
LOC: EDUNIT# 21:13 → ER 21:16 → 4TH 07-08 02:10
PROVIDERS: ADMIT Internal Medicine; ATTEND Internal Medicine
PROC: 0DU647Z Supplement Stomach with Autologous Tissue Substitute, Percutaneous Endoscopic Approach (ICD-10-PCS; principal; 2022-07-12 11:44)
DX: K28.5 Chronic or unspecified gastrojejunal ulcer with perforation (principal); K65.1 Peritoneal abscess; N39.0 Urinary tract infection, site not specified; K43.0 Incisional hernia with obstruction, without gangrene; F10.10 Alcohol abuse, uncomplicated; B96.20 Unspecified Escherichia coli [E. coli] as the cause of diseases classified elsewhere; I12.9 Hypertensive chronic kidney disease with stage 1 through stage 4 chronic kidney disease, or unspecified chronic kidney disease; T39.315A Adverse effect of propionic acid derivatives, initial encounter; Z20.822 Contact with and (suspected) exposure to COVID-19; N18.9 Chronic kidney disease, unspecified; M54.16 Radiculopathy, lumbar region; M79.7 Fibromyalgia; F17.210 Nicotine dependence, cigarettes, uncomplicated; J44.9 Chronic obstructive pulmonary disease, unspecified; E78.00 Pure hypercholesterolemia, unspecified; Z98.84 Bariatric surgery status; Z79.82 Long term (current) use of aspirin; Z82.61 Family history of arthritis; Z82.5 Family history of asthma and other chronic lower respiratory diseases; Z82.49 Family history of ischemic heart disease and other diseases of the circulatory system; Z88.6 Allergy status to analgesic agent; Z88.1 Allergy status to other antibiotic agents
CPT/HCPCS: 36415; 71045; 71250; 73502; 74022; 74176; 74246; 80048; 80053; 80306; 80320; 81000; 82150; 82550; 82553; 83690; 83735; 83874; 83880; 84484; 85007; 85025; 85027; 85610; 85730; 87077; 87088; 87186; 87636; 93005; 93041; 96361; 96365; 96375